=== PATIENT | female | born 1970 | race Caucasian/White ===

== ENCOUNTER 2023-01-28 09:49 | Outpatient (RCR) | payer OTHER, SELFPAY | END 2023-02-18 11:41 | disposition home or self-care (01) | LOC: PT 09:49 | PROVIDERS: PCP Nurse Practitioner Family; Visit Provider Nurse Practitioner Family | DX: M43.16 Spondylolisthesis, lumbar region (principal) | CPT/HCPCS: 97113 ==

== ENCOUNTER 2023-03-03 13:01 | Outpatient (RCR) | payer OTHER, SELFPAY | END 2023-03-04 14:07 | disposition home or self-care (01) | LOC: PT 13:01 | PROVIDERS: PCP Nurse Practitioner Family; Visit Provider Nurse Practitioner Family | DX: M17.11 Unilateral primary osteoarthritis, right knee (principal); M15.9 Polyosteoarthritis, unspecified; M43.07 Spondylolysis, lumbosacral region; G89.29 Other chronic pain | CPT/HCPCS: 97750 ==

== ENCOUNTER 2023-10-07 10:55 | Outpatient (RCR) | payer OTHER, SELFPAY | END 2024-01-06 09:15 | disposition home or self-care (01) | LOC: PT 10:55 | PROVIDERS: PCP Nurse Practitioner Family; Visit Provider Nurse Practitioner Family | DX: M15.9 Polyosteoarthritis, unspecified (principal); M43.07 Spondylolysis, lumbosacral region; M47.816 Spondylosis without myelopathy or radiculopathy, lumbar region | CPT/HCPCS: 97113; 97162 ==

== ENCOUNTER 2023-10-08 18:07 | Emergency (ER) | payer OTHER, SELFPAY ==
[2023-10-08] VITALS (25 sets, daily range): BP systolic 84–105; BP diastolic 57–75; PULSE 89–122; RESP 10–28; TEMP 36.8; O2SAT 94–99; BMI 51.2
--- OUTSIDE RECORDS SUMMARY | 2023-10-08 18:14 | XMS_ITS | CCD ---
Author Name Unknown Address [address] [place] [address] Organization [facility] Care Team Providers Care Hairpiece Stylist Name Role Phone EDIE SINGH Referring Unavailable EDIE SINGH Primary Care Unavailable Edie Singh Primary Care Provider Edie Singh Unavailable Edie Singh Unavailable Pop Blandon Unavailable Ellie Torres Unavailable NON STAFF Primary Care Provider UnavailDO Reinaldo Gutierrez Emergency Provider LUCY Torres Primary Care Provider LUCY Torres Attending Provider SOBEIDA Torres-Ruperto Ellie Primary Care Provider SOBEIDA Torres-C Ellie Attending Provider DO Edie Bolton Emergency Provider RadhasdSusana Jeong Unavailable Danya Carty Unavailable Serene Bustos Unavailable AGUSTO Ellis Attending Provider [phone] ELLIE TORRES Consulting Unavailable JUAN JOSE, ELLIE Primary Care Unavailable JUAN JOSE, ELLIE Admitting Unavailable JUAN JOSE, ELLIE Attending Unavailable JUAN JOSE, ELLIE Primary Care Unavailable JUAN JOSE, ELLIE Admitting Unavailable JUAN JOSE, ELLIE Attending Unavailable JUAN JOSE, ELLIE Consulting Unavailable JUAN JOSE, ELLIE Consulting Unavailable JUAN JOSE, ELLIE Primary Care Unavailable JUAN JOSE, ELLIE Admitting Unavailable JUAN JOSE, ELLIE Attending Unavailable Gurmeet Olmedo Unavailable [phone] SOBEIDA Torres-C Ellie Primary Care Provider SOBEIDA Torres-C Ellie Attending Provider DO Edie Bolton Emergency Provider AGUSTO Sung Attending Provider [phone] BROOKLYNN Carty Referring Provider MD Gurmeet Olmedo Attending Provider JUAN JOSE, ALYSON Kwan Attending Unavail able JUAN JOSE, ALYSON Kwan Admitting Unavail able Clive Marino Unavailable SOBEIDA Torres-C Ellie Primary Care Provider SOBEIDA Torres-Ruperto Argueta Attending Provider Kera Mccall Unavailable SOBEIDA Torres-Ruperto YeeEllie Primary Care Provider U DO Gurmeet Espino Attending Provider NON STAFF Primary Care Unavailable Reinaldo Mehta Admitting Unavailable Reinaldo Mehta Attending Unavailable Ellie Torres Attending Unavailable Ellie Torres Admitting Unavailable Juan Jose, Ellie Primary Care Unavailable Danya Carty Referring Unavailable Gurmeet Olmedo Admitting Unavaila ble Gurmeet Olmedo Attending Unavaila ble Juan Jose, Ellie Primary Care Unavailable Gurmeet Olmedo Attending Unavaila ble Juan Jose, Ellie Primary Care Unavailable Gurmeet Olmedo Admitting Unavaila ble Gurmeet Palacios Attending Unavailab le Juan Jose, Ellie Primary Care Unavailable Gurmeet Palacios Admitting Unavailab le Juan Jose, Ellie Primary Care Unavailable Ellie Torres Attending Unavailable Ellie Torres Admitting Unavailable Juan Jose, Ellie Primary Care Unavailable Ellie Torres Attending Unavailable Ellie Torres Admitting Unavailable Susana Ellis Admitting Unavailable Susana Ellis Attending Unavailable Ellie Torres Primary Care Unavailable Juan Jose, Ellie Primary Care Unavailable Edie Bolton Admitting Unavailable Edie Bolton Attending Unavailable Medications Current Medications Medication Drug Class(es) Dates Sig (Normalized) Sig (Original) acetaminophen 300 mg / codeine phosphate 30 mg oral tablet (14 sources) Opioid Agonist Start: 10-29-2022 take 1 tablet by mouth every twelve hours Acetaminophen-Cod eine 300-30 MG 1 tablet as needed Orally twice a day for 30 days Oct, Active [id number] 200 actuat albuterol 0.09 mg/actuat metered dose inhaler (20 sources) beta2-Adrenergic Agonist Start: 04-16-2023 take 2 puff(s) by inhalation every four to six hours as needed Albuterol Sulfate HFA 108 (90 Base) MCG/ACT 2 puffs as needed Inhalation every 4-6 hours for 14 days Mar, Active Start: 10-01-2022 take 2 puff(s) by in halation every four hours as needed Albuterol Sulfate HFA 108 (90 Base) MCG/ACT 2 puffs as needed Inhalation every 4 hrs Sep, Active Start: 10-01-2022 amitriptyline hydrochloride 25 mg oral tablet (17 sources) Tricyclic Antidepressant Start: 10-29-2022 take 1 tablet by mouth every twenty-four hours Amitriptyline HCl 25 MG 1 tablet at bedtime Orally Once a day for 30 days Oct, Active Start: 10-29-2022 Amitriptyline HCl 25 MG 1 tablet twice a day Orally bid for 30 days Oct, Active amoxicillin 875 mg oral tablet (5 sources) Penicillin-class Antibacterial Start: 06-25-2022 take 1 tablet by mouth every twelve hours Amoxicillin 875 MG 1 tablet Orally every 12 hrs for 7 days May, Active amoxicillin 875 mg / clavulanate 125 mg oral tablet (6 sources) Penicillin-class Antibacterial Start: 10-01-2022 take 1 tablet by mouth every twelve hours Amoxicillin-Pot Clavulanate 875-125 MG 1 tablet Orally every 12 hrs for 10 days Sep, Active azelastine hydrochloride 0.137 mg/actuat metered dose nasal spray (1 source) Histamine-1 Receptor Antagonist take 1 puff(s) nasal route twice daily Azelastine HCl 0.1 % 1 puff in each nostril Nasally Twice a day for 30 day(s) Active Calcium (1 source) Phosphate Binder, Calcium Calcium daily Active cefdinir 300 mg oral capsule (5 sources) Cephalosporin Antibacterial Start: 07-02-2022 take 1 capsule by mouth every twelve hours Cefdinir 300 MG 1 capsule Orally every 12 hrs for 7 days Jun, Active Start: 06-12-2021 take 1 capsule by [facility] every twelve hours Cefdinir 300 MG 1 capsule Orally every 12 hrs for 10 day(s) May, Active celecoxib 200 mg oral capsule (20 sources) Nonsteroidal Anti-inflammatory Drug Start: 01-19-2022 take 1 capsule by mouth every twenty-four hours CeleBREX 200 MG 1 capsule with food Orally Once a day for 30 day(s) December, Active cetirizine hydrochloride 10 mg oral tablet (20 sources) Histamine-1 Receptor Antagonist Start: 07-30-2022 take 1 tablet by mouth every twenty-four hours Cetirizine HCl 10 MG 1 tablet Orally Once a day for 30 day(s) Jul, Active doxycycline monohydrate 100 mg oral capsule (6 sources) Tetracycline-class Drug Start: 05-21-2022 take 1 capsule by mouth every twelve hours Doxycycline Monohydrate 100 MG 1 capsule Orally every 12 hrs for 10 days Apr, Active DULoxetine 60 mg delayed release oral capsule (20 sources) Serotonin and Norepinephrine Reuptake Inhibitor Start: 04-06-2022 take 1 capsule by mouth every twelve hours DULoxetine HCl 60 MG 1 capsule Orally Twice a day for 30 day(s) Mar, Active Start: 04-06-2022 take 1 capsule by [facility] every twelve hours DULoxetine HCl 40 MG 1 capsule Orally Twice a day for 30 day(s) Mar, Active Start: 04-06-2022 take 1 capsule by [facility] every twelve hours DULoxetine HCl 20 MG 1 capsule Orally Twice a day for 30 day(s) Mar, Active fluconazole 150 mg oral tablet (6 sources) Azole Antifungal Start: 09-25-2022 Fluconazole 1 50 MG 1 tablet Orally 1 tablet weekly x 3 weeks for 21 days Aug, Active fluticasone propionate 0.05 mg/actuat metered dose nasal spray (1 source) Corticosteroid take 1 spray(s) nasal route once daily Fluticasone Propionate 50 MCG/ACT 1 spray in each nostril Nasally Once a day for 30 day(s) Active gabapentin 600 mg oral tablet (20 sources) Anti-epileptic Agent Start: 04-22-2022 take 1 tablet by mouth every eight hours Gabapentin 600 MG 1 tablet Orally three times a day for 30 day(s) Mar, Active Start: 09-29-2021 take 1 capsule by [facility] every eight hours Gabapentin 300 MG 1 capsule Orally three times a day for 30 day(s) Aug, Active hydroCHLOROthiazide 25 mg / lisinopril 20 mg oral tablet (20 sources) Thiazide Diuretic, Angiotensin Converting Enzyme Inhibitor take 1 tablet by mouth every twenty-four hours Lisinopril-hydroCHLOROthiazide 20-25 MG 1 tablet Orally Once a day for 90 days Active take 1 tablet by mouth every twe nty-four hours hydrOXYzine hydrochloride 25 mg oral tablet (20 sources) Antihistamine Start: 11-07-2022 take 1 tablet by mouth twice daily as needed hydrOXYzine HCl 25 MG 1 tablet as needed Orally twice daily for 30 days Oct, Active Start: 06-25-2022 take 1 tablet by [facility] twice daily hydrOXYzine HCl 10 MG 1 Tablet Orally twice daily for 30 days May, Active Iron (1 source) take 1 tablet by mouth once daily Iron 325 (65 Fe) MG 1 tablet Orally Once a day Active levoFLOXacin 750 mg oral tablet (6 sources) Quinolone Antimicrobial Start: 10-08-19 take 750 mg by mouth once daily Levofloxacin Active 750 MG PO Daily 03 05October 08, 2022 1:00am 3 ml liraglutide 6 mg/ml pen injector (20 sources) GLP-1 Receptor Agonist Start: 09-30-19 Victoza 18 MG/3ML Week one- 0.6mg daily, Week two- 1.2mg daily, Week three thereafter- 1.8mg daily Subcutaneous Daily for 30 days Sep, Active inject 3 mg by subcu taneous injection once daily Victoza 18 MG/3ML 3 mg Subcutaneous Vera y for 30 days Active meloxicam 15 mg oral tablet (9 sources) Nonsteroidal Anti-inflammatory Drug Start: 07-20-2022 take 1 tablet by mouth every twenty-four hours Meloxicam 15 MG 1 tablet Orally Once a day for 30 day(s) Jun, Active Start: 11-13-2021 take 1 tablet by more th every twenty-four hours Meloxicam 15 MG 1 tablet Orally Once a day for 30 day(s) Oct, Not-Taking methylPREDNISolone 4 mg oral tablet (20 sources) Corticosteroid Start: 04-16-2023 methylPREDNISo lone 4 MG as directed Orally for daily dose take half with breakfast, half with dinner for 6 days Mar, Active Start: 11-03-2022 Medrol 4 MG as directed Orally as directed for 6 days Oct, Active Start: 07-20-2022 methylPREDNISo lone 4 MG as directed Orally Once a day for 6 days Jun, Active Start: 06-11-2022 methylPREDNISo lone 4 MG as directed Orally for 6 days May, Active Start: 01-15-2022 Medrol 4 MG as directed Orally December, Not-Taking Start: 08-11-2021 DEPO-Medrol Jul, 80 mg Start: 08-11-2021 Start: 08-11-2021 Depo-Medrol 40 mg Jul, 80 mg Start: 06-10-2020 Start: 06-10-2020 Depo-Medrol 80 mg May, 80 mg Start: 06-19-2019 Start: 06-19-2019 Depo-Medrol 40 mg May, 60 mg Start: 11-28-2018 Start: 11-28-2018 Depo-Medrol 80 mg Nov, 60 mg nystatin [id number] unt/ml oral suspension (1 source) Polyene Antifungal Start: 07-20-2022 take 5 mL by mouth four times daily Nystatin [id number] UNIT/ML 5 ml Mouth/Throat Four times a day for 10 day(s) Jun, Active ondansetron 8 mg oral tablet (1 source) Serotonin-3 Receptor Antagonist Start: 06-12-2021 take 1 tablet by mouth every twelve hours Ondansetron HCl 8 MG 1 tablet as needed Orally bid for 15 day(s) May, Active potassium chloride 20 meq extended release oral tablet (8 sources) Start: 09-10-2022 take 1 tablet by mouth twice daily Potassium Chloride (K-Tab) 20 mEq tablet extended release Active 20 MEQ PO Twice daily September 10, 2022 1:00am predniSONE 50 mg oral tablet (12 sources) Start: 10-08-2022 take 50 mg by mouth once daily Prednisone Active 50 MG PO Daily 3 October 08, 2022 1:00am Start: 10-01-2022 predniSONE 10 MG 1 tablet 3 times a day for 3 days then 1 tablet twice daily for 3 days Orally as directed for 6 days Sep, Active pregabalin 300 mg oral capsule (17 sources) Start: 10-29-2022 take 1 capsule by mouth every twelve hours Pregabalin 300 MG 1 capsule Orally Twice a day for 30 days Oct, Active Start: 10-29-2022 take 1 capsule by mo [facility] every twelve hours Pregabalin 150 MG 1 capsule Orally Twice a day for 30 days Oct, Active tiZANidine 4 mg oral tablet (20 sources) Central alpha-2 Adrenergic Agonist Start: 12-11-2021 take 1 tablet by mouth every twenty-four hours tiZANidine HCl 4 MG 1 tablet as needed Orally once daily for 30 days Nov, Active take 1 tablet by more twice daily as needed tiZANidine HCl 4 MG 1 tablet as needed Orally up to twice daily as needed for 30 days Active take 1 tablet by mouth every eig ht hours tiZANidine HCl 4 MG 1 tablet as needed Orally Three times a day for 10 day(s) Active traMADol hydrochloride 50 mg oral tablet (7 sources) Opioid Agonist Start: 08-27-2022 take 1 tablet by mouth every twelve hours traMADol HCl 50 MG 1 tablet as needed Orally bid for 30 day(s) Jul, Active Start: 07-30-2022 take 1 tablet by more every twelve hours traMADol HCl 50 MG 1 tablet as needed Orally bid for 30 day(s) Jul, Active triamcinolone acetonide 1 mg/ml topical cream (20 sources) Corticosteroid Start: 11-07-2022 Triamcinolone Acetonide 0.1 % 1 application to affected area Externally Twice a day for 5 days Oct, Active Start: 11-07-2022 Start: 03-03-2022 Kenalog-40 Feb, 40 mg Start: 03-03-2022 Start: 11-06-2021 Start: 11-06-2021 Kenalog -40 mg Oct, 40 mg Start: 03-11-2021 Start: 03-11-2021 KENALOG - 10 m g Feb, 40 mg Vitamin D (1 source) Vitamin D daily Active Completed/Discontinued Medications Medication Drug Class(es) Dates Sig (Normalized) Sig (Original) cyclobenzaprine hydrochloride 10 mg oral tablet (15 sources) Muscle Relaxant Start: 08-11-2021 take 1 tablet by mouth every twenty-four hours Cyclobenzaprine HCl 10 MG 1 tablet at bedtime as needed Orally Once a day for 30 day(s) Jul, Not-Taking Dexamethasone (20 sources) Corticosteroid Start: 03-26-2022 Start: 03-26-2022 DEXAMETHASONE Feb, 6 mg Start: 03-03-2022 Dexamethasone 4 MG 3 tablets daily for 3 days then 2 tablets daily for 3 days then 1 tablet daily for 3 days Orally Once a day for 9 days Feb, Active Dexamethasone 4 MG 3 tablets daily for 3 days then 2 tablets daily for 3 days then 1 tablet daily for 3 days Orally Once a day for 9 days Active diclofenac sodium 75 mg delayed release oral tablet (5 sources) Nonsteroidal Anti-inflammatory Drug take 1 tablet by mouth every twelve hours Diclofenac Sodium 75 MG 1 tablet as needed Orally Twice a day for 30 days Not-Taking Handicap placards as directed (20 sources) Start: 08-27-20 Start: 08-27-2022 Handicap placa rds as directed 1 to as directed as directed Jul, Active indomethacin 50 mg oral capsule (15 sources) Nonsteroidal Anti-inflammatory Drug Start: 08-11-2021 take 1 capsule by mouth every twelve hours Indomethacin 50 MG 1 capsule with food or milk Orally Twice a day for 30 day(s) Jul, Not-Taking Ketorolac (20 sources) Nonsteroidal Anti-inflammatory Drug, Cyclooxygenase Inhibitor Start: 03-03-2022 Start: 03-03-2022 Toradol per 15 mg Feb, 30 mg Start: 11-28-2018 Start: 11-28-2018 Toradol per 15 mg Nov, 60 mg Ketorolac Tromethamin (20 sources) Start: 11-07-2022 Start: 11-07-2022 Ketorolac Trom ethamin Oct, 60 mg Start: 11-03-2022 Start: 11-03-2022 Ketorolac Trom ethamin Oct, 30 mg Toradol 30 mg/ml (20 sources) Start: 05-21-2022 Start: 05-21-2022 Toradol 30 mg/ ml Apr, 60 mg Start: 03-26-2022 Start: 03-26-2022 Toradol 30 mg/ ml Feb, 60 mg Start: 11-06-2021 Start: 11-06-2021 Toradol 30 mg/ ml Oct, 30 mg Start: 03-11-2021 Start: 03-11-2021 Toradol 30 mg/ ml Feb, 30 mg Start: 02-17-2021 Start: 02-17-2021 Toradol 30 mg/ ml Jan, 60 mg Problems Active Problems Problem Classification Problem Date Documented Date Episodic/Chronic Administrative/social admission (2 sources) Persons encountering health services in other specified circumstances Episodic Allergic reactions (1 source) Unspecified contact dermatitis, unspecified cause Episodic Anxiety disorders (20 sources) Generalized anxiety disorder; Translations: [Generalized anxiety disorder] Chronic Coma; stupor; and brain damage (20 sources) Excessive daytime sleepiness - normal night sleep; Translations: [Somnolence] Episodic Diabetes mellitus without complication (7 sources) Other abnormal glucose; Translations: [Impaired fasting glucose] Episodic Essential hypertension (20 sources) Essential hypertension; Translations: [Essential (primary) hypertension] Onset: 04-06-2022 Resolved: 04-27-2022 Chronic Fluid and electrolyte disorders (19 sources) Hypokalemia; Translations: [Hypokalemia] Onset: 09-21-2022 09-10-2022 Episodic Genitourinary symptoms and ill-defined conditions (10 sources) Retention of urine; Translations: [Retention of urine, unspecified] 09-10-2022 Episodic Immunizations and screening for infectious disease (20 sources) Contact with and (suspected) exposure to other viral communicable diseases; Translations: [Contact with and (suspected) exposure to other viral communicable diseases Z20.828] Onset: 06-12-2021 Resolved: 06-12-2021 Episodic Mood disorders (20 sources) Recurrent major depressive episodes, mild ; Translations: [Major depressive disorder, recurrent, mild] Onset: 04-06-2022 Resolved: 04-27-2022 Chronic Mycoses (1 source) Candidal stomatitis Episodic Osteoarthritis (19 sources) Arthritis of right knee; Translations: [Unilateral primary osteoarthritis, right knee] Chronic Other circulatory disease (1 source) Other specified symptoms and signs involving the circulatory and respiratory systems Episodic Other connective tissue disease (1 source) Other symptoms and signs involving the musculoskeletal system; Translations: [Other symptoms and signs involving the musculoskeletal system] Onset: 06-18-2023 Episodic Other nervous system disorders (20 sources) Chronic pain; Translations: [Other chronic pain] Chronic Other nervous system disorders (9 sources) Other chronic pain Onset: 09-29-2021 Resolved: 04-22-2022 Chronic Other non-traumatic joint disorders (1 source) Pain in elbow; Translations: [Left elbow pain] Episodic Other non-traumatic joint disorders (1 source) Pain in right knee Episodic Other non-traumatic joint disorders (1 source) Pain in right hip Episodic Other nutritional; endocrine; and metabolic disorders (20 sources) Body mass index 40+ - severely obese; Translations: [Body mass index (BMI) 40.0-44.9, adult] Chronic Other nutritional; endocrine; and metabolic disorders (13 sources) Severe obesity; Translations: [Morbid (severe) obesity due to excess calories] Chronic Other nutritional; endocrine; and metabolic disorders (3 sources) Morbid (severe) obesity due to excess calories Chronic Other nutritional; endocrine; and metabolic disorders (2 sources) Body mass index (BMI) 40.0-44.9, adult Chronic Other nutritional; endocrine; and metabolic disorders (20 sources) Morbid obesity; Translations: [Morbid (severe) obesity due to excess calories] Chronic Other nutritional; endocrine; and metabolic disorders (20 sources) Obesity; Translations: [Obesity, unspecified] Chronic Other nutritional; endocrine; and metabolic disorders (6 sources) Obesity, unspecified Chronic Other nutritional; endocrine; and metabolic disorders (4 sources) Body mass index (BMI) 45.0-49.9, adult Chronic Other nutritional; endocrine; and metabolic disorders (3 sources) Metabolic syndrome X; Translations: [Metabolic syndrome] Chronic Other nutritional; endocrine; and metabolic disorders (1 source) Metabolic syndrome Chronic Other skin disorders (1 source) Disorder of the skin and subcutaneous tissue, unspecified Episodic Other upper respiratory infections (20 sources) Chronic pansinusitis; Translations: [Chronic pansinusitis] Chronic Other upper respiratory infections (10 sources) Acute maxillary sinusitis, unspecified; Translations: [Acute frontal sinusitis, unspecified] Onset: 06-12-2021 Resolved: 06-12-2021 Episodic Otitis media and related conditions (4 sources) Otitis media, unspecified, bilateral; Translations: [Otitis media, unspecified, left ear] Episodic Pneumonia (except that caused by tuberculosis or sexually transmitted disease) (7 sources) Community acquired pneumonia; Translations: [Pneumonia, unspecified organism] 10-08-2022 Episodic Residual codes; unclassified (20 sources) Obstructive sleep apnea syndrome; Translations: [Obstructive sleep apnea (adult) (pediatric)] Chronic Residual codes; unclassified (20 sources) Obstructive sleep apnea of adult; Translations: [Obstructive sleep apnea (adult) (pediatric)] Chronic Residual codes; unclassified (20 sources) Sleep apnea; Translations: [Sleep apnea, unspecified] Chronic Residual codes; unclassified (5 sources) Sleep apnea, unspecified; Translations: [Sleep apnea] Onset: 12-23-2022 Chronic Residual codes; unclassified (2 sources) Obstructive sleep apnea (adult) (pediatric) Chronic Residual codes; unclassified (1 source) Obstructive sleep apnea (adult)(pediatric); Translations: [Obstructive sleep apnea (adult) (pediatric)] Onset: 02-24-2023 Chronic Residual codes; unclassified (20 sources) Generalized aches and pains; Translations: [Pain, unspecified] Episodic Residual codes; unclassified (6 sources) Passive smoker; Translations: [Contact with and (suspected) exposure to environmental tobacco smoke (acute) (chronic)] 10-08-2022 Episodic Residual codes; unclassified (20 sources) Insomnia; Translations: [Insomnia, unspecified] Episodic Residual codes; unclassified (2 sources) Insomnia, unspecified Episodic Spondylosis; intervertebral disc disorders; other back problems (20 sources) Arthritis of facet joint of lumbar spine; Translations: [Spondylosis without myelopathy or radiculopathy, lumbar region] Onset: 09-29-2021 Resolved: 04-22-2022 Chronic Spondylosis; intervertebral disc disorders; other back problems (5 sources) Radiculopathy, lumbar region; Translations: [Muscle spasm of back] Onset: 08-11-2021 Resolved: 08-11-2021 Episodic Unclassified (1 source) Unclassified (12 sources) Other low back pain; Translations: [Other low back pain] Unclassified (1 source) Dietary counseling and surveillance; Translations: [Dietary counseling and surveillance] Onset: 02-02-2023 Unclassified (1 source) Pain in right hip; Translations: [Pain in right hip] Onset: 11-07-2022 Unclassified (1 source) Pain in right knee; Translations: [Pain in right knee] Onset: 11-03-2022 Unclassified (1 source) Subacute cough; Translations: [Subacute cough] Onset: 10-01-2022 Unclassified (1 source) Retention of urine, unspecified; Translations: [Retention of urine, unspecified] Onset: 09-10-2022 Past or Other Problems Problem Classification Problem Date Documented Da te Episodic/Chronic Malaise and fatigue (6 sources) Other fatigue; Translations: [OTHER FATIGUE] Onset: 06-05-2022 Episodic Nausea and vomiting (1 source) Bilious vomiting; Translations: [Bilious vomiting with nausea R11.14] Onset: 06-12-2021 Resolved: 06-12-2021 Episodic Other aftercare (1 source) Encounter for follow-up examination after completed treatment for conditions other than malignant neoplasm Onset: 04-27-2022 Resolved: 04-27-2022 Episodic Other lower respiratory disease (1 source) Shortness of breath; Translations: [Shortness of breath] Onset: 10-08-2022 Episodic Residual codes; unclassified (3 sources) Pain, unspecified Onset: 09-29-2021 Resolved: 01-28-2022 Episodic Sprains and strains (3 sources) Strain of muscle, fascia and tendon of lower back, initial encounter Onset: 11-06-2021 Resolved: 04-16-2022 Episodic Unclassified (1 source) Suspected COVID-19 virus infection Z20.822; Translations: [Suspected COVID-19 virus infection Z20.822] Onset: 06-12-2021 Resolved: 06-12-2021 Unclassified (8 sources) Other low back pain M54.59 Onset: 09-29-2021 Resolved: 01-15-2022 Unclassified (20 sources) Myofascial low back pain; Translations: [Other low back pain] Unclassified (2 sources) Pain in left lumbar region of back M54.50 Onset: 03-03-2022 Resolved: 03-03-2022 Unclassified (1 source) Subacute cough R05.2 Results Test Name Value Interpretation Reference Range Facility MR lumbar spine wo conon MR lumbar spine wo con [facility] [place] [address] [place] [address] MRI Report Signed Patient: Mariana Kelly MR#: [id number] : 1970 Acct:[id number] Age/Sex: 52 / F ADM Date: 06/18/23 Loc: MR Room: Type: [facility] Attending Dr: Gurmeet Palacios DO Copies to: Gurmeet Palacios DO Ordering Provider: Gurmeet Palacios DO Date of Service: 06/18/23 MR/MR lumbar spine wo con: BACK PAIN EXAMINATION: MRI LUMBAR SPINE WITHOUT CONTRAST CLINICAL HISTORY: Bilateral lower extremity weakness and difficulty standing or walking for long periods. COMPARISON: 01/16/[address] 09/10/2022 TECHNIQUE: Multiecho imaging was performed in the sagittal and axial planes without contrast administration. FINDINGS: There is still minor anterolisthesis of L4 on L5 and retrolisthesis of L5 on S1. There is normal signal intensity within the imaged bone marrow. No compression fractures are visualized in the field of view. There is minor degenerative endplate signal change, predominantly at the thoracolumbar junction. The conus medullaris is normal in caliber, position and signal intensity. No paraspinal soft tissue anomalies are noted. At T12-L1, there is slight loss of disc height. There is minimal annular disc bulging. There is no significant thecal sac effacement or neural foraminal stenosis. At L1-L2, L2-3 L3-4, no disc disease or stenosis is identified. At L4-5, there is minimal loss of disc height and disc desiccation. There is no significant disc bulge or herniation. There is prominent worsening facet disease with fluid in the joints. A potential tiny central synovial cyst on the left is possible. There is also thickening of ligamentum flavum. There is moderate to severe central stenosis due to the posterior element disease. There is mild right and mild to moderate left foraminal impingement. At the lumbosacral junction, there is minor disco-osteophytic bulging, greater toward the neural foramen. There is mild facet and ligamentous hypertrophy. No thecal sac effacement is present. There is moderate foraminal bilaterally. 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 LUMBOSACRAL FORAMINAL IMPINGEMENT. Impression dictated by: Arianna Urena M.D.06/18/2023 8:28 PM Dictation Location: [place] [address] Transcribed By: [facility] 06/18/232027 Dictated By: Arianna Urena MD 06/18/232010 Signed By: 06/18/232027 [facility] Coding Summary.on 12-10-2022 Coding Summary. CD:[id number] Ww+PG hlYWQ+VV8IAXWrK63ymLAixM7 pP4BHULhKRvquFMNTJLfMEdAu qtNaMJ1wxQNwFRVs IC8+DC1uUWDnPxzimHXeq9X9n GE4P90alb7dIMgslIO8GOHuQc Wdttqwo0cciNh5WNzqHyaqUbG t GUBamE27KOG9rZ33Bd10eVMxw DLxx1dnrTu7NrUmEKSnHWW0vZ irMDyuc9OvXNLrH02ieBNsa7I 6 BTAlmSnlmOReAiTbmJP9tM6vI Yessupzn9jdyrpwVrp1gd13pE Hov0H7bUC7S4LnswE8MCDrtMZ g DjzeqTYHsP5uminrv7osxhewI fXhDUKjRCz2VNb2MLWwgPamKj FpPA57XGY2YNSffiHqJ8RwHSF s cZraVqC7m0Q2Qd6US2HOKoxlT 1VNTUFSWTwvdGQ+YJ50pq28I3 OqNsukEbs9DAQtWZI4hLF8hT6 n GKXhJXyma1X4tDL3D2SqwuGtf m8kv9qdEWIgNFmnZ40zeSMwj3 D2OSCbfMR6FWIseZcsOzPsgB8 3 Oyc+YVJxzOtcq3DsEyzxq7qng 1hcmTd0ZsbwCDWariBwwWacKN X1i3QvNo1xULGkjWJ3lFO1cJ7 i RwJiOwY2SEsnB543WdIyaURzE dviK38yZ3VyaEG+BKWoEhe4MR WztQntUG7iY8AaWDJrjggsrSF m qGrfZY0wDKPsjinsKONycU9oP AOaB2c8KnOvMcK4ZFxyG8BmBA TlnteuCe32lG7fKlMyZwE0FOs u Z8HmvqC3PKHckHTgNMqcQLQ6M 23yp9X9OCTyRFVnREG6bGG0sY 1hbGlnbjogbGVmdDsgdmVydGl j JVzfYSkrP313KDZvmKumKnCxL GluZyBEYXRlOiAgMDQvMTMvMj AyMzwvdGQ+YAKrYWK3oQeqCNT n kYZqYEblOd5azIuwlIdpQG7eL WNdagznDAXheU4mVFHrhRKapP joCG0jNTNlejdom236MpObCUE 0 SSMseDIvA6SgkO6zHpZzXLBnR QZxL6NfhILeQPmjI523JQpqUz H3BQAelzArE5XtJNZqaZlzWdW 0 s7W2Wg3Fz7YkunihF0DaeSNtK zSlMvjnHPs2A6FlUyhsvGT+PC 58HDMsLO31NFa2VXR3gIslNLx i FPGaT8HdiD0jUwQrIXRjZAKzG yc+PHRhYmxlIHdpZHRoPScxMD UhVsUvrUnaUW7rKf3aJJNtOSS v tTlyrVFjDdMxx1fyPWGbQFaiV T0evJtpW5TklSL3IKApd3e7Wf 91M18nB3PuvIM+UEHdnSS7gTT 0 oR4bYsHkZmL0NCxeR075VzZfw DOwXrhwy1sfv6fqfYl8JtC0ET AgdnEkcDbaRVR3w3YoJh90X28 s IHdpZHRoPSIxNSUiIHZhbGlnb y6auS6rNq7+PLVgtLN0aGF9pQ 0eFaMrOjL8EFskB806DaKoxLQ v Dggau2jnl3qbxFl0JgCpGKWhb pWvhLxxPBL9v0MeLf38K3GxnC jui5XvKde2wr48aXHev9E7zQG 9 O1DoJUGawiavyNMgzKegXG1eM UVetoahHGKayO6bFHEmX0x8Kf FyJiF0TLvaQ4GhaeT7RUZrbBL g GRUstVNWvQ6twudhm0mouxpxG yOeBKQnCIz4IKl4QXUacImuUh WzHCK2LhM3PBA2iUSezT5lpTu n rwxvhG3rGho+GVZ5mFYuhTLKP J1xAaktgTU+UCMeZER6pWuzTX okTDNhkH4zWXArH3m2OeBlOyI 1 PBskT2GxrvQ9FIKqkUStMXJep EYZjU1vmadda9bjkqhgJuJaLD KjYBc0UPi8LJEyeQzqRmMuTML 0 SdM1IPR7uGJtkY5vrDzpndnwb G9wOyc+IvgkqWlzFYZ9UYf1T7 YhLgk8FSFqtHbbMV2gdWRtSDz u Za4bvGloiRxaGP6yCBJpdeadh 933PlNip7juLSQrfUZyHKwfOD L4M62ik2S7JVLnXEEnQFL2mWJ 4 kI8bjQvojyddtJUjnUwzljCfc FgvHXjwFIihY996ILDkfZpyNd QaIYt7N5IeGei5MMKzjNtjIS5 n vLOlYPalGh9tsYrppZfdBG7zG PDyniuvw260SrIco5xnGHBvlZ TbEBofDRK5O67be0X8HZMeLBQ w VEA8xQU0mU3ytSvwnyhmpNUxg LhlzjQadXlyFDtqFYnyK735OG BxfHjrBhQoaFk3S8JtKtr9HYW z iAfvFH3xcBGvMZimBo8cxLizm UmaRZ4rOFZgtbxsd958TyZbt8 gjYBXobTJwEKlkXZB7H25xw5V 6 URTlYNOgRLQ8sFY7qS1lmRlxd jogbGVmdDsgdmVydGljYWwtYW sbV717GUYbfMgxClQzbPfscwM g HKogQIp5A4QmDvqixEO+PC90Y RTgQL99sFNgxUGtt3uadGt9Mm AzHYChNFF5yFixBShld5QaOHF t A23pqAAsk5F4JUXmkXbneEYzR eJfqQN7wY1yBQjyayveq1ubdl suSbmmj5spgp24hP28G86uCMe p SKAqSPNzKVEqQWAlkIuely4yj G9wIi8+DTLwzIE8eJB5rE2nSQ HlTpS7ZXdoV447BmNqbUCbQhk j x7azb7lshPy0VnG9DMYbegIuf GvkDGK4p0ZjJx34K90xBEnmNK OtGIKyQBXfGUIxcTrwft0aqW7 w Ii8+JDPszAJ8oSM2zR6sKzCqA kW6PHaqT409ZyKcjCRpXrakV3 6qO7KyxIR+QZReBxh4MOMyaSm s KY8ozCTePCoyMo6pHGP1NrCtA nJwBLqkG4BgMWJldjsqirazeM I0DFUqWBVmfR87Nt9uhRdeJIO w oBDOrE3knepmd7qlzwcqTqNrV JRkKIq5PTj8HMLuwMdhXnVpYE C8LyS0XWS7uBCugH4bpLwjimt g sQ9yW1TiSXBawdgoMh72hO8tN oUxZjB7MSixHye+F0lJOPgLKD MmSHQNFiBBKZ50LW74aQGuy8B 5 tSS3F0XlSLVaxksdqsqloVQ2L BMgSIMuvL91aFZjDXchNc6lr2 Q3q036GJGkQIHquT84Li8ftTe g TWFquIJRrU1qpthxg5yqsoisT lWvOKCbGFr2LSb8UXYenWcsZp LbBMM6HlO4LYT2kFQdvF8ocMb n rfqwfH8sOip+HMBkWJCbIKo3M jwvdGQ+XUIgRGQ0iNcvMQwdDY YyiJ2yUWZbC5c9PsWaLfC2BLq u W6SkHPNeykdrLl48eQ2eKvXsK nN5YUdoJ2AlcbL7CJAtlGOzBD lkHPV1I05fu4Y4OWUwRXBgTPJ 7 mSC3fN0bzLrpqctwmBZgrHaaw vXeiUigUSblXBpuT899OXZknD eoGpLsRUdzTUSrWA08BG03iPG g q0W6hXG1J2RsCYJkwfrzrahqe UI3IUEpFYQcpW41fSDxBQivOb 2qp8M8o946AYSjNJWxaP48Ft9 u aXpdAXSogKRTsE5kpgkct9nva kqyIuQqYLSuIAh7MFp5WMXbsY fpRjBsJIJ0XoS7ZEV9fWEwrJ8 h pEdotrhloX5bKgf+RmVtYWxlP R05NO35pUIdu0X0lSR2S0SaCR QlgbcnummmcQK2KNTkTGFkkZ3 7 bUTpWEejIw3kz1R8v789ZGLjD FZmzI38Mo2sgIcrPDFdnMZDdO 1fgxsgo8maqejqEpZsMGReTWa 0 RVn0WOApfNtcZrMoZRX8SqJ1L VK2qHCdyB9ocCsborgfxW7aLs c+IEMpBKOgj5Hlw4YhCC07LH8 8 X8DfLioivOEoiMR+PHRhYmxlI HdpZHRoPScxMDAlJyBzdHlsZT 8rGq9rWSIuEQMvkUekyXHcWnQ j d8qtQFWuCWezYT4yrAluI5Een YS8LZEjc2m2Za01T86aP1EhxU A+HDMjhZB9mHY1vC5kYsRmHsI 2 YWwzQ035DmWuuSTaJupnr7eux 4ahkOq9IlEzXVPmacYzoMznUJ W4c0DrWs45H13mRSsoJPIsORH y NBSyWPRlvGftfl5grU7wSp8+P ZVpsAK5nVP0nI6bAnSaNtT8VX rsN982XgZufBWtPjvgG74tY4H v dXA+MLQxWpy6WQWpuDlfSL6wx YWcXMmlRs5vOFR9NmFpOlKuSA avC5WxQPDahpzgelhwwJZ4BHD u VHKrrM05Lj8ltTkwMk3lSAWtN JD0ODLecTNlB6TvxD0kCiMuTE MfUGKjD9IosCZjNHalU937QHh l GoL6SAJzqrFrB1QyFRKhgBbyV vM3o6Q7Iu0DsKndkYFvJV6qAq SnZTl5V3YqDre0XGUrhSniVY5 n oWHdWSckPo9gwBmvcUdgGU3sW ORrtyked658EmTse1vdKFXcsP FcZHplYEG2R31ji5E5TBBaLJZ w OAL3sLW5cQ8ukTjpqwfrxMUsr MmvdzYfmCaaSMvsDRxqM868MS FcmZnhYmFPEsa8W6JmJax8ZMC z rRbzRT3grLPpZEoiMk9qtYxoc LioYU8jMNLzfsyoq360BpMkt5 agDVJkiDGpMUusVQD0O79lb0X 6 RRRkTRFcEBK8hBF1gF2rbIrma jogbGVmdDsgdmVydGljYWwtYW qjW004KMVdqFgxJf9KCki1O6Z k Ekm3EHDapElsKM2oxDAvXWpiU c5acPbuxWxmLP4bERGlkqzxc5 92MeMxt0vuDKHqyBKpGDmrJVP 7 X44kv5G4OERsXDToVRT7yLX6g M8etPlollqbhGJzqDyefvExpI drITiaMTzaJ993FPZjgOxlDmD h eWVyOjwvdGQ+HB15qg99W7QhF xdsUyn4FVYgIXN6dRZ1zN8mZD OeZQpyz8U3hMI4S7NvihUtis0 j f4anRZKm (more content not included)... Normal [facility] CMPon 12-02-2022 Albumin [Mass/Vol] 3.8 g/dL Normal 3.3-5.0 [facility] Comment on above: Performed By: #### 2 308286, [id number], 1637726, [id number] #### [facility] [address] [place] [address] Albumin/Globulin (S) [Mass conc ratio] 1.3 Normal 1.1-2.2 [facility] Comment on above: Performed By: #### 2 851231, 92541329, 0307448, [id number] #### [facility] [address] [place] [address] ALP [Catalytic activity/Vol] 77 Int._Unit/L Normal 21-98 [facility] Comment on above: Performed By: #### 2 952262, 83832687, 8936584, 13392753 #### [facility] [address] [place] [address] ALT No additional P-5'-P [Catalytic activity/Vol] 21 Int._Unit/L Normal 6-46 [facility] Comment on above: Performed By: #### 2 580788, 01400023, 0758748, 61813616 #### [facility] [address] [place] [address] Anion gap [Moles/Vol] 11 mmol/L Normal 6-16 [facility] Comment on above: Performed By: #### 2 174904, 93883572, 9358895, 23693892 #### [facility] [address] [place] [address] AST [Catalytic activity/Vol] 17 Int._Unit/L Normal 5-43 [facility] Comment on above: Performed By: #### 2 713542, 60620736, 3530236, 03704175 #### [facility] [address] [place] [address] Bilirubin [Mass/Vol] 0.4 mg/dL Normal 0.0-1.1 [facility] Comment on above: Performed By: #### 2 629058, 49921839, 0632878, 15074827 #### [facility] [address] [place] [address] Calcium [Mass/Vol] 9.1 mg/dL Normal 8.9-11.1 [facility] Comment on above: Performed By: #### 2 784478, 37911307, 3430440, 53699611 #### [facility] [address] [place] [address] Chloride [Moles/Vol] 107 mmol/L Normal 101-111 [facility] Comment on above: Performed By: #### 2 498704, 79786792, 2572798, 49030252 #### [facility] [address] [place] [address] CO2 [Moles/Vol] 26 mmol/L Normal 21-31 [facility] Comment on above: Performed By: #### 2 805435, 36998034, 9643109, 08555951 #### [facility] [address] [place] [address] Creatinine [Mass/Vol] 0.9 mg/dL Normal 0.5-1.3 [facility] Comment on above: Performed By: #### 2 318414, 33864425, 1103527, 58885731 #### [facility] [address] [place] [address] Globulin (S) [Mass/Vol] 3.0 g/dL Normal 1.4-4.0 [facility] Comment on above: Performed By: #### 2 008389, 48750065, 5887277, 43922061 #### [facility] [address] [place] [address] Glucose [Mass/Vol] 110 mg/dL Normal 55-199 [facility] Comment on above: Result Comment: If t his glucose result represents a fasting glucose, interpretation should refer to the following reference range: 55-99 mg/dL Performed By: #### 2 051689, 82369365, 3449765, 04694846 #### [facility] [address] [place] [address] Potassium [Moles/Vol] 3.8 mmol/L Normal 3.5-5.3 [facility] Comment on above: Performed By: #### 2 053349, 53741042, 4911236, 45265297 #### [facility] [address] [place] [address] Protein [Mass/Vol] 6.8 g/dL Normal 6.0-7.8 [facility] Comment on above: Performed By: #### 2 181443, 39061957, 7014564, 82567105 #### [facility] [address] [place] [address] Sodium [Moles/Vol] 140 mmol/L Normal 135-145 [facility] Comment on above: Performed By: #### 2 290781, 90255611, 5062350, 80123338 #### [facility] [address] [place] [address] Urea nitrogen [Mass/Vol] 12 mg/dL Normal 5-21 [facility] Comment on above: Performed By: #### 2 746512, 18894030, 5654461, 39217257 #### [facility] [address] [place] [address] Urea nitrogen/Creatinine [Mass ratio] 13 No Units Normal 10-20 [facility] Comment on above: Performed By: #### 2 195924, 00608440, 1482009, 40752378 #### [facility] [address] [place] [address] Lipid Panelon 12-02-2022 Cholesterol [Mass/Vol] 177 mg/dL Normal 120-200 [facility] Comment on above: Performed By: #### 2 951786, 37828560, 9032536, 20990530 #### [facility] [address] [place] [address] Cholesterol in HDL [Mass/Vol] 43 mg/dL Invalid Interpretation Code [facility] Comment on above: Result Comment: HDL > or equal to 60 mg/dL: Low cardiovascular risk HDL < 40 mg/dL : High cardiovascular risk Performed By: #### 2 751115, 57934275, 8478258, 73663180 #### [facility] [address] [place] [address] Cholesterol in LDL [Mass/Vol] 123 mg/dL Normal <=129 [facility] Comment on above: Performed By: #### 2 624351, 24174662, 3858451, 07154290 #### [facility] [address] [place] [address] Cholesterol in VLDL [Mass/Vol] 32 mg/dL Normal 7-40 [facility] Comment on above: Performed By: #### 2 318094, 62794592, 5237944, 65502800 #### [facility] [address] [place] [address] Triglyceride [Mass/Vol] 158 mg/dL High <=149 [facility] Comment on above: Performed By: #### 2 179684, 38371337, 8455297, 76039580 #### [facility] [address] [place] [address] Physician Orderon 12-02-2022 Physician Order [id number]:12 7 Normal [facility] T4 & TSHon 12-02-2022 T4 [Mass/Vol] 7.5 microgram/dL Normal 4.6-9.1 [facility] Comment on above: Performed By: #### 2 421632, 74582276, 6977278, 16583151 #### [facility] [address] [place] [id number] TSH Qn 0.59 m[IU]/L Normal 0.34-5.60 [facility] Comment on above: Performed By: #### 2 285496, 01024003, 2181232, 85962429 #### [facility] [address] [place] [address] eGFRon 12-02-2022 GFR/1.73 sq M.predicted among blacks MDRD (S/P/Bld) [Vol rate/Area] mL/min/{1.73_m2} Normal >=59 [facility] Comment on above: Order Comment: Order added by Discern Expert. Result Comment: eGFR is race adjusted. AA=. Performed By: #### 2 219446, 12113296, 1273548, 52460457 #### [facility] [address] [place] [address] GFR/1.73 sq M.predicted among non-blacks MDRD (S/P/Bld) [Vol rate/Area] mL/min/{1.73_m2} Normal >=59 [facility] Comment on above: Order Comment: Order added by Discern Expert. Result Comment: Student Services Representative carlos kidney disease could be indicated at eGFR's of less than 60 mL/min/1.73m2. Kidney failure is indicated at less than 15 mL/min/1.73m2. Performed By: #### 2 625691, 88954041, 3460677, 76331789 #### [facility] [address] [place] [address] XR hip RT min 2V(w/wo pelvis )*on 11-07-2022 XR hip RT min 2V(w/wo pelvis)* [facility] [employer] Other XR hip RT min 2V(w/wo pelvis)* [facility] [place] [employer] Other XR hip RT min 2V(w/wo pelvis)* [address] [place] [address] [employer] Other XR hip RT min 2V(w/wo pelvis)* [place] [address] [employer] Other XR hip RT min 2V(w/wo pelvis)* XRay Report [employer] Other XR hip RT min 2V(w/wo pelvis)* Signed [employer] Other XR hip RT min 2V(w/wo pelvis)* Patient: Mariana Kelly MR#: [id number] [employer] Other XR hip RT min 2V(w/wo pelvis)* 3699 [employer] Other XR hip RT min 2V(w/wo pelvis)* : 1970 Acct:[id number] [employer] Other XR hip RT min 2V(w/wo pelvis)* Age/Sex: 51 / F ADM Date: 11/07/22 [employer] Other XR hip RT min 2V(w/wo pelvis)* Loc: XDUCLY Room: Type: REG CLI [employer] Other XR hip RT min 2V(w/wo pelvis)* Attending Dr: Ellie Torres [facility] [employer] Other XR hip RT min 2V(w/wo pelvis)* Copies to: ELLIE TORRES [facility] [employer] Other XR hip RT min 2V(w/wo pelvis)* Ordering Provider: ELLIE TORRES [facility] [employer] Other XR hip RT min 2V(w/wo pelvis)* Date of Service: 11/07/22 [employer] Other XR hip RT min 2V(w/wo pelvis)* XR/XR hip RT min 2V(w/wo pelvis)*: Right hip pain [employer] Other XR hip RT min 2V(w/wo pelvis)* Single view pelvis and 2 views of the right hip plain film [employer] Other XR hip RT min 2V(w/wo pelvis)* COMPARISON:None [employer] Other XR hip RT min 2V(w/wo pelvis)* HISTORY:Right hip pain for one year. [employer] Other XR hip RT min 2V(w/wo pelvis)* ACUTE FINDINGS:None [employer] Other XR hip RT min 2V(w/wo pelvis)* DEGENERATIVE CHANGE:Unremarkable [employer] Other XR hip RT min 2V(w/wo pelvis)* SOFT TISSUE FINDINGS:Unremarkable [employer] Other XR hip RT min 2V(w/wo pelvis)* JOINT EFFUSION:None [employer] Other XR hip RT min 2V(w/wo pelvis)* POSTOP CHANGES:None [employer] Other XR hip RT min 2V(w/wo pelvis)* BONY MINERALIZATION:Adequate [employer] Other XR hip RT min 2V(w/wo pelvis)* XR/XR hip RT min 2V(w/wo pelvis)* [employer] Other XR hip RT min 2V(w/wo pelvis)* IMPRESSION:Unremarkable exam [employer] Other XR hip RT min 2V(w/wo pelvis)* Impression dictated by: Juan Adair M.D.11/07/2022 11:54 AM [employer] Other XR hip RT min 2V(w/wo pelvis)* Dictation Location: [place] [address] [employer] Other XR hip RT min 2V(w/wo pelvis)* Transcribed By: PWS 11/07/22 [facility] [employer] Other XR hip RT min 2V(w/wo pelvis)* Dictated By: Juan Adair DO 11/07/22 [facility] [employer] Other XR hip RT min 2V(w/wo pelvis)* Signed By: [employer] Other XR hip RT min 2V(w/wo pelvis)* 11/07/22 [facility] [employer] Other XR hip RT min 2V(w/wo pelvis)* [facility] [place] [address] [place] [address] XRay Report Signed Patient: Mariana Kelly MR#: [id number] : 1970 Acct:[id number] Age/Sex: 51 / F ADM Date: 11/07/22 Loc: XDUCLY Room: Type: [facility] Attending Dr: Ellie AYALA Copies to: ELLIE TORRES Ordering Provider: ELLIE TORRES Date of Service: 11/07/22 XR/XR hip RT min 2V(w/wo pelvis)*: Right hip pain Single view pelvis and 2 views of the right hip plain film COMPARISON:None HISTORY:Right hip pain for one year. ACUTE FINDINGS:None DEGENERATIVE CHANGE:Unremarkable SOFT TISSUE FINDINGS:Unremarkable JOINT EFFUSION:None POSTOP CHANGES:None BONY MINERALIZATION:Adequate XR/XR hip RT min 2V(w/wo pelvis)* IMPRESSION:Unremarkable exam Impression dictated by: Juan Adair M.D.11/07/2022 11:54 AM Dictation Location: [facility] Transcribed By: [facility] 11/07/22 1154 Dictated By: Juan Adair DO 11/07/221152 Signed By: 11/07/22 115 Normal [facility] XR knee RT 4V*on 11-03-2022 XR knee RT 4V* [facility] [place] [address] [place] [address] XRay Report Signed Patient: Mariana Kelly MR#: [id number] : 1970 Acct:[id number] Age/Sex: 51 / F ADM Date: 11/03/22 Loc: XDUCLY Room: Type: [facility] Attending Dr: Susana LIZ Copies to: AGUSTO Aviles Ordering Provider: AGUSTO Aviles Date of Service: 11/03/22 XR/XR knee RT 4V*: Acute pain of right knee RIGHT KNEE - 4 views CLINICAL HISTORY: Right knee pain for the past 2 weeks. No recent injury. COMPARISON: None AP, lateral and both oblique views were obtained. There is no evidence of fracture or dislocation. No disproportionate joint space narrowing is present. There is minimal marginal spurring. Fluid is present at the suprapatellar bursa. XR/XR knee RT 4V* IMPRESSION: MINOR DEGENERATIVE CHANGE. JOINT EFFUSION. NO ACUTE BONY FINDINGS. Impression dictated by: Arianna Urena M.D.11/03/2022 2:56 PM Dictation Location: [facility] Transcribed By: SUKHDEV 11/03/22 1456 Dictated By: Arianna Urena MD 11/03/22 1454 Signed By: 11/03/22 1456 Normal [facility] XR knee RT 4V* [facility] [employer] Other XR knee RT 4V* [facility] [employer] Other XR knee RT 4V* [address] [facility] [employer] Other XR knee RT 4V* [place] [address] No rt [employer] Other XR knee RT 4V* XRay Report [employer] Other XR knee RT 4V* Signed [employer] Other XR knee RT 4V* Patient: Genevieve Kelly MR#: [id number] [place] [employer] Other XR knee RT 4V* [address] [employer] Other XR knee RT 4V* : 1970 Acct:[id number] [employer] Other XR knee RT 4V* Age/Sex: 51 / F ADM Date: 11/03/22 [employer] Other XR knee RT 4V* Loc: XDUC Room: pe: [facility] [employer] Other XR knee RT 4V* Attending Dr: Susana LIZ [employer] Other XR knee RT 4V* Copies to: AGUSTO Aviles [employer] Other XR knee RT 4V* Ordering Provider: AGUSTO Hernández [employer] Other XR knee RT 4V* Date of Service: 11/03/22 [employer] Other XR knee RT 4V* XR/XR knee RT 4V*: Acute pain of right knee [employer] Other XR knee RT 4V* RIGHT KNEE - 4 views [employer] Other XR knee RT 4V* CLINICAL HISTORY: Ri ght knee pain for the past 2 weeks. No recent injury. [employer] Other XR knee RT 4V* COMPARISON: None [facility] Other XR knee RT 4V* AP, lateral and both oblique views were obtained. There is no evidence of fracture or dislocation. [employer] Other XR knee RT 4V* No disproportionate joint space narrowing is present. There is minimal marginal spurring. Fluid [employer] Other XR knee RT 4V* is present at the suprapatellar bursa. [employer] Other XR knee RT 4V* X R/XR knee RT 4V* [employer] Other XR knee RT 4V* IMPRESSION: [facility] [employer] Other XR knee RT 4V* MINOR DEGENERATIVE CHANGE. [employer] Other XR knee RT 4V* JOINT EFFUSION. [employer] Other XR knee RT 4V* NO ACUTE BONY FINDINGS. [employer] Other XR knee RT 4V* Impression dictated by: Arianna Urena M.D.11/03/2022 2:56 PM [employer] Other XR knee RT 4V* Dictation Location: [facility]-- [employer] Other XR knee RT 4V* Transcribed By: SUKHDEV 11/03/22 [facility] [employer] Other XR knee RT 4V* Dictated By: Arianna Urena MD 11/03/22 [facility]6 [employer] Other XR knee RT 4V* Signed By: [employer] Other XR knee RT 4V* 11/03/22 [address] [place] [employer] Other Albumin [Mass/volume] in Ser um or PlasmaOrdered By: PROVIDER TEMP on 10-08-2022 Albumin [Mass/Vol] 3.5 g/dL 3.2-5.5 [facility] B-Type Natriuretic Peptideon 10-08-2022 Natriuretic peptide B (Bld) [Mass/Vol] 15.0 pg/mL Normal 5-100 [facility] Comment on above: Result Comment: PERF ORMED BY: [place] [address] PATHOLOGIST SIZE MIXER JAZZY HIGGINS M.D. Performed By: #### C BC, CK, CKMB, HS TROP, BNP, CMP #### [facility] [address] [place] [address] [place] Basophils Auto (Bld) [#/Vol] Ordered By: PROVIDER TEMP on 10-08-2022 Basophils (Bld) [#/Vol] 0.1 10*3/uL 0.0-0.2 [facility] Basophils/100 WBC Auto (Bld) Ordered By: PROVIDER TEMP on 10-08-2022 Basophils/100 WBC (Bld) 0.6 % . [facility] Complete Blood Count Auto Di ffon 10-08-2022 Basophils (Bld) [#/Vol] 0.1 10*3/uL Normal 0.0-0.2 [facility] Comment on above: Result Comment: PERF ORMED BY: [facility] [address] [place] [address] PATHOLOGIST [employer] M[employer]ER JAZZY HIGGINS M.D. Performed By: #### C BC, CK, CKMB, HS TROP, BNP, CMP #### [facility] [address] Basophils/100 WBC (Bld) 0.6 % Normal . [facility] Comment on above: Performed By: #### C BC, CK, CKMB, HS TROP, BNP, CMP #### [address] Eosinophils (Bld) [#/Vol] 0.2 10*3/uL Normal 0.0-0.45 [facility] Comment on above: Performed By: #### C BC, CK, CKMB, HS TROP, BNP, CMP #### [address] Eosinophils/100 WBC (Bld) 1.0 % Normal . [facility] Comment on above: Performed By: #### C BC, CK, CKMB, HS TROP, BNP, CMP #### [address] Erythrocyte distribution width (RBC) [Ratio] 13.9 % Normal 11.9-15.3 [facility] Comment on above: Performed By: #### C BC, CK, CKMB, HS TROP, BNP, CMP #### [address] Hematocrit (Bld) [Volume fraction] 45.1 % Normal 34.0-46.4 [facility] Comment on above: Performed By: #### C BC, CK, CKMB, HS TROP, BNP, CMP #### [address] Hemoglobin (Bld) [Mass/Vol] 14.9 g/dL Normal 11.8-15.4 [facility] Comment on above: Performed By: #### C BC, CK, CKMB, HS TROP, BNP, CMP #### [address] Lymphocytes (Bld) [#/Vol] 4.6 10*3/uL Normal 1.00-4.8 [facility] Comment on above: Performed By: #### C BC, CK, CKMB, HS TROP, BNP, CMP #### [address] Lymphocytes/100 WBC (Bld) 29.9 % Normal . [facility] Comment on above: Performed By: #### C BC, CK, CKMB, HS TROP, BNP, CMP #### [address] MCH (RBC) [Entitic mass] 30.8 pg Normal 24.7-34.3 [facility] Comment on above: Performed By: #### C BC, CK, CKMB, HS TROP, BNP, CMP #### [address] MCV (RBC) [Entitic vol] 93.5 fL Normal 80-100 [facility] Comment on above: Performed By: #### C BC, CK, CKMB, HS TROP, BNP, CMP #### [address] Mean Corpuscular HGB Conc 33.0 g/dL Normal 32.0-35.0 [facility] Comment on above: Performed By: #### C BC, CK, CKMB, HS TROP, BNP, CMP #### [address] Monocytes (Bld) [#/Vol] 1.1 10*3/uL High 0.0-0.8 [facility] Comment on above: Performed By: #### C BC, CK, CKMB, HS TROP, BNP, CMP #### [address] Monocytes/100 WBC (Bld) 15.04 % Normal 0.00-20.00 [facility] Comment on above: Performed By: #### C BC, CK, CKMB, HS TROP, BNP, CMP #### [address] Monocytes/100 WBC (Bld) 7.1 % Normal . [facility] Comment on above: Performed By: #### C BC, CK, CKMB, HS TROP, BNP, CMP #### [address] Neutrophils (Bld) [#/Vol] 9.5 10*3/uL High 1.8-7.7 [facility] Comment on above: Performed By: #### C BC, CK, CKMB, HS TROP, BNP, CMP #### [address] Neutrophils/100 WBC (Bld) 61.4 % Normal . [facility] Comment on above: Performed By: #### C BC, CK, CKMB, HS TROP, BNP, CMP #### [facility] [address] NRBC% 0.1 /100{WBC} Normal 0-0.5 [facility] Comment on above: Performed By: #### C BC, CK, CKMB, HS TROP, BNP, CMP #### [address] Platelet mean volume (Bld) [Entitic vol] 7.1 fL Normal 6.3-10.7 [facility] Comment on above: Performed By: #### C BC, CK, CKMB, HS TROP, BNP, CMP #### [address] Platelets (Bld) [#/Vol] 357 10*3/uL Normal 150-450 [facility] Comment on above: Performed By: #### C BC, CK, CKMB, HS TROP, BNP, CMP #### [address] RBC (Bld) [#/Vol] 4.83 10*6/uL Normal 3.60-5.00 [facility] Comment on above: Performed By: #### C BC, CK, CKMB, HS TROP, BNP, CMP #### [address] WBC (Bld) [#/Vol] 15.5 10*3/uL High 3.8-11.6 [facility] Comment on above: Performed By: #### C BC, CK, CKMB, HS TROP, BNP, CMP #### [address] Comprehensive Metabolic Pane dread 10-08-2022 Albumin [Mass/Vol] 3.5 g/dL Normal 3.2-5.5 [facility] Comment on above: Performed By: #### C BC, CK, CKMB, HS TROP, BNP, CMP #### [address] Albumin/Globulin [Mass ratio] 1.1 {ratio} Normal [facility] Comment on above: Performed By: #### C BC, CK, CKMB, HS TROP, BNP, CMP #### [address] ALP [Catalytic activity/Vol] 76 U/L Normal 32-92 [facility] Comment on above: Performed By: #### C BC, CK, CKMB, HS TROP, BNP, CMP #### [address] ALT [Catalytic activity/Vol] 22 U/L Normal 10-60 [facility] Comment on above: Performed By: #### C BC, CK, CKMB, HS TROP, BNP, CMP #### [address] Anion gap [Moles/Vol] 10.6 mmol/L Normal 6.0-15.0 [facility] Comment on above: Performed By: #### C BC, CK, CKMB, HS TROP, BNP, CMP #### [address] AST [Catalytic activity/Vol] 14 U/L Normal 10-42 [facility] Comment on above: Performed By: #### C BC, CK, CKMB, HS TROP, BNP, CMP #### [address] Bilirubin [Mass/Vol] 0.5 mg/dL Normal 0.3-1.2 [facility] Comment on above: Performed By: #### C BC, CK, CKMB, HS TROP, BNP, CMP #### [address] Calcium [Mass/Vol] 8.5 mg/dL Normal 8.2-10.2 [facility] Comment on above: Performed By: #### C BC, CK, CKMB, HS TROP, BNP, CMP #### [address] Chloride [Moles/Vol] 101 mmol/L Normal 95-114 [facility] Comment on above: Performed By: #### C BC, CK, CKMB, HS TROP, BNP, CMP #### [address] CO2 [Moles/Vol] 26.8 mmol/L Normal 22.0-30.0 [facility] Comment on above: Performed By: #### C BC, CK, CKMB, HS TROP, BNP, CMP #### [address] Creatinine [Mass/Vol] 0.89 mg/dL Normal 0.44-1.03 [facility] Comment on above: Performed By: #### C BC, CK, CKMB, HS TROP, BNP, CMP #### [address] Creatinine Clr Calc Pharmacy 91.28 [facility] Comment on above: Result Comment: PERF ORMED BY: [place] [address] PATHOLOGIST SIZE MIXER JAZZY HIGGINS M.D. Performed By: #### C BC, CK, CKMB, HS TROP, BNP, CMP #### [address] Estimated GFR ( Dorcas > 60 [facility] Comment on above: Result Comment: GFR estimated reference range: According to KDOQI guidelines, <60 ml/min/1.73m2 is sufficient to diagnose a patient with chronic kidney disease. Performed By: #### C BC, CK, CKMB, HS TROP, BNP, CMP #### [address] Estimated GFR (Non- Am > 60 [facility] Comment on above: Performed By: #### C BC, CK, CKMB, HS TROP, BNP, CMP #### [address] [address] [place] Globulin (S) [Mass/Vol] 3.1 g/dL Normal [facility] Comment on above: Performed By: #### C BC, CK, CKMB, HS TROP, BNP, CMP #### [facility] [address] Glucose [Mass/Vol] 112 mg/dL High 70-100 [facility] Comment on above: Result Comment: [place] Glucose Reference Range is dependent on time and content of last meal. Glucose of more than 200 mg/dL in a nonstressed, ambulatory subject supports the diagnosis of Diabetes Mellitus. ADA recommended reference range Performed By: #### C BC, CK, CKMB, HS TROP, BNP, CMP #### [address] Potassium [Moles/Vol] 3.4 mmol/L Low 3.5-5.1 [facility] Comment on above: Performed By: #### C BC, CK, CKMB, HS TROP, BNP, CMP #### [address] Protein [Mass/Vol] 6.6 g/dL Normal 6.1-7.9 [facility] Comment on above: Performed By: #### C BC, CK, CKMB, HS TROP, BNP, CMP #### [address] Sodium [Moles/Vol] 135 mmol/L Low 136-146 [facility] Comment on above: Performed By: #### C BC, CK, CKMB, HS TROP, BNP, CMP #### [place] [address] [place] Urea nitrogen [Mass/Vol] 13 mg/dL Normal 9-23 [facility] Comment on above: Performed By: #### C BC, CK, CKMB, HS TROP, BNP, CMP #### [address] Creatine Kinaseon 10-08-2022 CK [Catalytic activity/Vol] 65 U/L Normal 22-269 [facility] Comment on above: Performed By: #### C BC, CK, CKMB, HS TROP, BNP, CMP #### [facility] [address] [place] [address] [place] Creatine kinase [Enzymatic a ctivity/volume] in Serum or PlasmaOrdered By: PROVIDER TEMP on 10-08-2022 CK [Catalytic activity/Vol] 65 U/L 22-269 [facility] Creatinine Kinase MBon 10-08 CK.MB [Mass/Vol] 1.2 ng/mL Normal 0.6-6.3 [facility] Comment on above: Performed By: #### C BC, CK, CKMB, HS TROP, BNP, CMP #### [facility] [address] CKMB Relative Index 1.8 % Normal 0.00-2.50 [facility] Comment on above: Performed By: #### C BC, CK, CKMB, HS TROP, BNP, CMP #### [facility] [address] Creatinine and Glomerular fi ltration rate.predicted panel (S/P/Bld)Ordered By: PROVIDER TEMP on 10-08-2022 Creatinine [Mass/Vol] 0.89 mg/dL 0.44-1.03 [facility] Eosinophils Auto (Bld) [#/Vo l]Ordered By: PROVIDER TEMP on 10-08-2022 Eosinophils (Bld) [#/Vol] 0.2 10*3/uL 0.0-0.45 [facility] Eosinophils/100 WBC Auto (Bl d)Ordered By: PROVIDER TEMP on 10-08-2022 Eosinophils/100 WBC (Bld) 1.0 % . [facility] Erythrocyte distribution wid th Auto (RBC) [Ratio]Ordered By: PROVIDER TEMP on 10-08-2022 Erythrocyte distribution width (RBC) [Ratio] 13.9 % 11.9-15.3 [facility] Estimated glomerular filtrat ion rate (GFR) non- AmericanOrdered By: PROVIDER TEMP on 10-08-2022 GFR/1.73 sq M.predicted among non-blacks MDRD (S/P/Bld) [Vol rate/Area] > 60 mL/Min [facility] Globulin Calc (S) [Mass/Vol] Ordered By: PROVIDER TEMP on 10-08-2022 Globulin (S) [Mass/Vol] 3.1 g/dL [facility] Hematocrit Auto (Bld) [Volum e fraction]Ordered By: PROVIDER TEMP on 10-08-2022 Hematocrit (Bld) [Volume fraction] 45.1 % 34.0-46.4 [facility] Hemoglobin [Mass/volume] in BloodOrdered By: PROVIDER TEMP on 10-08-2022 Hemoglobin (Bld) [Mass/Vol] 14.9 g/dL 11.8-15.4 [facility] - Chemistry and C hemistry - challengeOrdered By: Edie Bolton on 10-08-2022 Natriuretic peptide B (Bld) [Mass/Vol] 15.0 pg/mL 5-100 [facility] Leukocytes [#/volume] correc aleksey for nucleated erythrocytes in Blood by Automated counOrdered By: PROVIDER TEMP on 10-08-2022 WBC corrected for nucl RBC Auto (Bld) [#/Vol] 15.5 10*3/uL 3.8-11.6 [facility] Lymphocytes Auto (Bld) [#/Vo l]Ordered By: PROVIDER TEMP on 10-08-2022 Lymphocytes (Bld) [#/Vol] 4.6 10*3/uL 1.00-4.8 [facility] Lymphocytes/100 WBC Auto (Bl d)Ordered By: PROVIDER TEMP on 10-08-2022 Lymphocytes/100 WBC (Bld) 29.9 % . [facility] MCH Auto (RBC) [Entitic mass ]Ordered By: PROVIDER TEMP on 10-08-2022 MCH (RBC) [Entitic mass] 30.8 pg 24.7-34.3 [facility] MCHC Auto (RBC) [Mass/Vol]Or dered By: PROVIDER TEMP on 10-08-2022 MCHC (RBC) [Mass/Vol] 33.0 g/dL 32.0-35.0 [facility] MCV Auto (RBC) [Entitic vol] Ordered By: PROVIDER TEMP on 10-08-2022 MCV (RBC) [Entitic vol] 93.5 fL 80-100 [facility] Monocyte distribution width [Entitic volume] in Blood by AutomatedOrdered By: PROVIDER TEMP on 10-08-2022 Monocyte distribution width Auto (Bld) [Entitic vol] 15.04 % 0.00-20.00 [facility] Monocytes Auto (Bld) [#/Vol] Ordered By: PROVIDER TEMP on 10-08-2022 Monocytes (Bld) [#/Vol] 1.1 10*3/uL 0.0-0.8 [facility] Monocytes/100 WBC Auto (Bld) Ordered By: PROVIDER TEMP on 10-08-2022 Monocytes/100 WBC (Bld) 7.1 % . [facility] Neutrophils Auto (Bld) [#/Vo l]Ordered By: PROVIDER TEMP on 10-08-2022 Neutrophils (Bld) [#/Vol] 9.5 10*3/uL 1.8-7.7 [facility] Neutrophils/100 WBC Auto (Bl d)Ordered By: PROVIDER TEMP on 10-08-2022 Neutrophils/100 WBC (Bld) 61.4 % . [facility] No Panel InformationOrdered By: PROVIDER TEMP on 10-08-2022 Estimated GFR () > 60 mL/Min [facility] Comment on above: GFR estimated refere nce range: According to KDOQI guidelines, <60 ml/min/1.73m2 is sufficient to diagnose a patient with chronic kidney disease. Pharmacy Creatinine Clearance (Chem 91.28 [facility] Nucleated erythrocytes [Pres ence] in Blood by Automated countOrdered By: PROVIDER TEMP on 10-08-2022 Nucleated RBC Auto Ql (Bld) 0.1 /100{WBC} 0-0.5 [facility] Platelet mean volume Auto (B ld) [Entitic vol]Ordered By: PROVIDER TEMP on 10-08-2022 Platelet mean volume (Bld) [Entitic vol] 7.1 fL 6.3-10.7 [facility] Platelets Auto (Bld) [#/Vol] Ordered By: PROVIDER TEMP on 10-08-2022 Platelets (Bld) [#/Vol] 357 10*3/uL 150-450 [facility] Protein [Mass/volume] in Ser um or PlasmaOrdered By: PROVIDER TEMP on 10-08-2022 Protein [Mass/Vol] 6.6 g/dL 6.1-7.9 [facility] RBC Auto (Bld) [#/Vol]Ordere d By: PROVIDER TEMP on 10-08-2022 RBC (Bld) [#/Vol] 4.83 10*6/uL 3.60-5.00 [facility] Serum or plasma alanine blanco otransferase measurement without P-5'-P (enzymatic activiOrdered By: PROVIDER TEMP on 10-08-2022 ALT No additional P-5'-P [Catalytic activity/Vol] 22 U/L 10-60 [facility] Serum or plasma albumin/glob ulin mass ratioOrdered By: PROVIDER TEMP on 10-08-2022 Albumin/Globulin [Mass ratio] 1.1 {ratio} [facility] Serum or plasma alkaline shyla sphatase measurement (enzymatic activity/volume)Ordered By: PROVIDER TEMP on 10-08-2022 ALP [Catalytic activity/Vol] 76 U/L 32-92 [facility] Serum or plasma anion gap de terminationOrdered By: PROVIDER TEMP on 10-08-2022 Anion gap [Moles/Vol] 10.6 mmol/L 6.0-15.0 [facility] Serum or plasma aspartate am inotransferase measurement (enzymatic activity/volume)Ordered By: PROVIDER TEMP on 10-08-2022 AST [Catalytic activity/Vol] 14 U/L 10-42 [facility] Serum or plasma calcium rocío urement (mass/volume)Ordered By: PROVIDER TEMP on 10-08-2022 Calcium [Mass/Vol] 8.5 mg/dL 8.2-10.2 [facility] Serum or plasma chloride martin surement (moles/volume)Ordered By: PROVIDER TEMP on 10-08-2022 Chloride [Moles/Vol] 101 mmol/L 95-114 [facility] Serum or plasma creatine kin ase MB (CKMB)/total creatine kinase (CK) ratio by calculaOrdered By: PROVIDER TEMP on 10-08-2022 CK.MB Calc [Catalytic fraction] 1.8 % 0.00-2.50 [facility] Serum or plasma creatine kin ase MB measurement (mass/volume)Ordered By: PROVIDER TEMP on 10-08-2022 CK.MB [Mass/Vol] 1.2 ng/mL 0.6-6.3 [facility] Serum or plasma glucose rocío urement (mass/volume)Ordered By: PROVIDER TEMP on 10-08-2022 Glucose [Mass/Vol] 112 mg/dL 70-100 [facility] Comment on above: ADA recommended refe rence rangeRandom Glucose Reference Range is dependent on time and content of last meal. Glucose of more than 200 mg/dL in a nonstressed, ambulatory subject supports the diagnosis of Diabetes Mellitus. Serum or plasma potassium me asurement (moles/volume)Ordered By: PROVIDER TEMP on 10-08-2022 Potassium [Moles/Vol] 3.4 mmol/L 3.5-5.1 [facility] Serum or plasma sodium measu rement (moles/volume)Ordered By: PROVIDER TEMP on 10-08-2022 Sodium [Moles/Vol] 135 mmol/L 136-146 [facility] Serum or plasma total biliru bin measurement (mass/volume)Ordered By: PROVIDER TEMP on 10-08-2022 Bilirubin [Mass/Vol] 0.5 mg/dL 0.3-1.2 [facility] Serum or plasma total carbon dioxide measurement (moles/volume)Ordered By: PROVIDER TEMP on 10-08-2022 CO2 [Moles/Vol] 26.8 mmol/L 22.0-30.0 [facility] Serum or plasma urea nitroge n measurement (mass/volume)Ordered By: PROVIDER TEMP on 10-08-2022 Urea nitrogen [Mass/Vol] 13 mg/dL 9-23 [facility] Troponin I High Sensitivityo n 10-08-2022 Troponin I High Sensitivity 3 pg/mL Normal 0-15 [facility] Comment on above: Result Comment: PERF ORMED BY: [facility] [address] [place] [address] PATHOLOGIST SIZE MIXER JAZZY HIGGINS M.D. Performed By: #### C BC, CK, CKMB, HS TROP, BNP, CMP #### [place] [id number] [facility] Troponin I.cardiac [Mass/vol ume] in Serum or Plasma by High sensitivity methodOrdered By: PROVIDER TEMP on 10-08-2022 Troponin I.cardiac High sensitivity method [Mass/Vol] 3 pg/mL 0-15 [facility] WBC Auto (Bld) [#/Vol]Ordere d By: PROVIDER TEMP on 10-08-2022 WBC (Bld) [#/Vol] 15.5 10*3/uL 3.8-11.6 [facility] XR chest 2V*on 10-08-2022 XR chest 2V* [facility] [place] [address] XRay Report Signed Patient: Mariana Kelly MR#: [id number] : 1970 Acct:[id number] Age/Sex: 51 / F ADM Date: 10/08/22 Loc: ER Room: Type: [facility] ER Attending Dr: Copies to: Edie Bolton DO Ordering Provider: Edie Bolton DO Date of Service: 10/08/22 XR/XR chest 2V*: Shortness of Breath/Dyspnea Plain film chest2 view HISTORY:Productive cough for one month COMPARISON:10/01/22 FINDINGS: Cardiac, mediastinal and hilar silhouettes are stable. No acute lung process, pleural effusion or pneumothorax identified. Bony structures are intact. LEFT basilar linear atelectasis/scarring identified. XR/XR chest 2V* IMPRESSION: No acute process. Impression dictated by: Juan Adair M.D.10/08/2022 8:09 PM Dictation Location: [place] [address] Transcribed By: [facility] 10/08/222008 Dictated By: Juan Adair DO 10/08/222006 Signed By: 10/08/222008 Normal [facility] XR chest 2V*on 10-01-2022 XR chest 2V* [facility] Main [address] [address] XRay Report Signed Patient: Mariana Kelly MR#: [id number] : 1970 Acct:[id number] Age/Sex: 51 / F ADM Date: 10/01/22 Loc: XDCLY Room: Type: [facility] Attending Dr: Ellie AYALA Copies to: ELLIE TORRES Ordering Provider: ELLIE TORRES Date of Service: 10/01/22 XR/XR chest 2V*: COUGH Chest 2 views CLINICAL HISTORY: Dry cough, hoarseness, shortness of breath, wheezing, upper middle back pain for 3 weeks. COMPARISON: None FINDINGS: Heart normal in size. Mild left lower lobe linear atelectasis/scarring. No consolidation pneumothorax pleural effusion or free air. XR/XR chest 2V* IMPRESSION: MILD LEFT LOWER LOBE LINEAR ATELECTASIS/SCARRING. NO CONSOLIDATION TO SUGGEST PNEUMONIA. Impression dictated by: Brice Taylor Jr., D.O.10/01/2022 3:33 PM Dictation Location: [facility] Transcribed By: [facility] 10/01/22 1533 Dictated By: Brice Taylor Jr, DO 10/01/22 1532 Signed By: 10/01/22 1533 Normal [facility] XR chest 2V* [facility] Access Closure Other XR chest 2V* [facility] Access Closure Other XR chest 2V* [address] [facility] Access Closure Other XR chest 2V* [place] [address] [facility] Access Closure Other XR chest 2V* XRay Report [facility] Access Closure Other XR chest 2V* Signed [facility] Access Closure Other XR chest 2V* Patient: Genevieve Kelly MR#: [id number] [facility] Access Closure Other XR chest 2V* 3649 [facility] Access Closure Other XR chest 2V* : 1970 Acct:[id number] [employer] Other XR chest 2V* Age/Sex: 51 / F ADM Date: 10/01/22 [facility] Other XR chest 2V* Loc: XDCLY [facility]: [facility] Other XR chest 2V* Attending Dr: Emery Torres [facility] Other XR chest 2V* [facility] Other XR chest 2V* Ordering Provider: ELLIE TORRES [facility] [employer] Other XR chest 2V* Date of Service: 10/01/22 [employer] Other XR chest 2V* XR/XR chest 2V*: COUGH [employer] Other XR chest 2V* Chest 2 views [facility] [employer] Other XR chest 2V* CLINICAL HISTORY: Dr arteaga cough, hoarseness, shortness of breath, wheezing, upper middle back pain for 3 [employer] Other XR chest 2V* weeks. [employer] Other XR chest 2V* COMPARISON: None [facility] Other XR chest 2V* FINDINGS: [employer] Other XR chest 2V* Heart normal in size . Mild left lower lobe linear atelectasis/scarring. No consolidation [employer] Other XR chest 2V* pneumothorax pleural effusion or free air. [employer] Other XR chest 2V* X R/XR chest 2V* [employer] Other XR chest 2V* IMPRESSION: [employer] Other XR chest 2V* MILD LEFT LOWER LOBE LINEAR ATELECTASIS/SCARRING. NO CONSOLIDATION TO SUGGEST PNEUMONIA. [facility] Other XR chest 2V* Impression dictated by: Brice Taylor Jr., D.O.10/01/2022 3:33 PM [facility] Other XR chest 2V* Dictation Location: [facility] Other XR chest 2V* Transcribed By: PWS 10/01/22 [facility] [employer] Other XR chest 2V* Dictated By: Brice Taylor Jr, DO 10/01/22 [facility] [employer] Other XR chest 2V* Signed By: [employer] Other XR chest 2V* 10/01/22 [facility] [employer] Other A1C HEMOGLOBINon 09-30-2022 HbA1c (Bld) [Mass fraction] 6.1 % [employer] Other HbA1c (Bld) [Mass fraction]o n 09-30-2022 A1C HEMOGLOBIN [employer] Other PROF CHEM 8 (BAS METB)on Anion gap [Moles/Vol] 17.9 mmol/L Normal [facility] Comment on above: Performed By: #### B MP #### [facility] [address] [place] [address] [address] Isabel Wolfe Calcium [Mass/Vol] 9.1 mg/dL Normal 8.5-10.1 [facility] Comment on above: Performed By: #### B MP #### [facility] [address] [place] [address] [address] Isabel Wolfe Chloride [Moles/Vol] 103 mmol/L Normal 98-107 [facility] Comment on above: Performed By: #### B MP #### [facility] [address] [place] [address] [address] Isabel Wolfe CO2 [Moles/Vol] 22.9 mmol/L Normal 21.0-32.0 [facility] Comment on above: Performed By: #### B MP #### [facility] [address] [place] [address] [address] Isabel Wolfe Creatinine [Mass/Vol] 0.92 mg/dL Normal 0.55-1.02 [facility] Comment on above: Performed By: #### B MP #### [facility] [address] [place] [address] [address] Isabel Wolfe EGFR-AF PORTUGUESE >60 Normal >=60 [facility] Comment on above: Performed By: #### B MP #### [facility] [address] [place] [address] [address] Isabel Wolfe EGFR-NON AF PORTUGUESE >60 Normal >=60 [facility] Comment on above: Performed By: #### B MP #### [facility] [address] [place] [address] [address] Isabel Wolfe Glucose [Mass/Vol] 178 mg/dL Critically high 74-106 T [facility] Comment on above: Performed By: #### B MP #### [facility] [address] [place] [address] [address] Isabel Wolfe Potassium [Moles/Vol] 3.8 mmol/L Normal 3.5-5.1 [facility] Comment on above: Performed By: #### B MP #### [facility] [address] [place] [address] [address] Isabel Wofle Sodium [Moles/Vol] 140 mmol/L Normal 136-145 [facility] Comment on above: Performed By: #### B MP #### [facility] [address] [place] [address] [address] Isabel Wolfe Urea nitrogen [Mass/Vol] 11.0 mg/dL Normal 7.0-18.0 [facility] Comment on above: Performed By: #### B MP #### [facility] [address] [place] [address] [address] Isabel Wolfe Urea nitrogen/Creatinine [Mass ratio] 12.0 mg/mg Normal [facility] Comment on above: Performed By: #### B MP #### [facility] [address] [place] [address] [address] Isabel Wolfe COVID + FLU Quick Testingon 09-20-2022 SARS-CoV-2 (COVID-19) RNA PIPER+probe Ql (Unsp spec) Negative [employer] Other COVID + FLU Quick Testing Negative [employer] Other Quick Strepon 09-20-2022 S. pyogenes Org specific cx Ql (Throat) Negative [facility] Access Closure Other Quick Strep [facility] Access Closure Other Automated erythrocytes count in urine sediment (number/area)Ordered By: Reinaldo Mehta on 09-10-2022 RBC Auto (Urine sed) [#/Area] 1-2 [HPF] 0-4 [facility] Automated leukocytes count i n urine sediment (number/area)Ordered By: Reinaldo Mehta on 09-10-2022 WBC Auto (Urine sed) [#/Area] 3-4 [HPF] 0-4 [facility] Basic Metabolic Panelon 08-30 Anion gap [Moles/Vol] 15.1 mmol/L High 6.0-15.0 [facility] Comment on above: Performed By: #### H EPATIC, CBC, PT, BMP, LIPASE ####[facility] [id number] [place] [id number] [facility] Calcium [Mass/Vol] 9.2 mg/dL Normal 8.2-10.2 [facility] Comment on above: Performed By: #### H EPATIC, CBC, PT, BMP, LIPASE ####[facility] [address] [place] [address] [facility] Chloride [Moles/Vol] 101 mmol/L Normal 95-114 [facility] Comment on above: Performed By: #### H EPATIC, CBC, PT, BMP, LIPASE ####[facility] [address] [place] [id number] [facility] CO2 [Moles/Vol] 23.8 mmol/L Normal 22.0-30.0 [facility] Comment on above: Performed By: #### H EPATIC, CBC, PT, BMP, LIPASE ####[place] [address] Creatinine [Mass/Vol] 0.84 mg/dL Normal 0.44-1.03 [facility] Comment on above: Performed By: #### H EPATIC, CBC, PT, BMP, LIPASE ####[address] Creatinine Clr Calc Pharmacy 101.87 [facility] Comment on above: Performed By: #### H EPATIC, CBC, PT, BMP, LIPASE ####[address] Estimated GFR ( Dorcas > 60 [facility] Comment on above: Result Comment: GFR estimated reference range: According to KDOQI guidelines, <60 ml/min/1.73m2 is sufficient to diagnose a patient with chronic kidney disease. Performed By: #### H EPATIC, CBC, PT, BMP, LIPASE ####[address] Estimated GFR (Non- Am > 60 [facility] Comment on above: Performed By: #### H EPATIC, CBC, PT, BMP, LIPASE ####[address] Glucose [Mass/Vol] 91 mg/dL Normal 70-100 [facility] Comment on above: Result Comment: [facility] Glucose Reference Range is dependent on time and content of last meal. Glucose of more than 200 mg/dL in a nonstressed, ambulatory subject supports the diagnosis of Diabetes Mellitus. ADA recommended reference range Performed By: #### H EPATIC, CBC, PT, BMP, LIPASE ####[address] Potassium [Moles/Vol] 2.9 mmol/L Off scale low 3.5-5.1 [facility] Comment on above: Result Comment: Results called at 1921 on 09/10/22 Performed By: #### H EPATIC, CBC, PT, BMP, LIPASE ####[facility] [id number] Sodium [Moles/Vol] 137 mmol/L Normal 136-146 [facility] Comment on above: Performed By: #### H EPATIC, CBC, PT, BMP, LIPASE ####[facility] [id number] Urea nitrogen [Mass/Vol] 10 mg/dL Normal 9-23 [facility] Comment on above: Performed By: #### H EPATIC, CBC, PT, BMP, LIPASE ####[facility] [id number] Basophils Auto (Bld) [#/Vol] Ordered By: Reinaldo Mehta on 09-10-2022 Basophils (Bld) [#/Vol] 0.1 10*3/uL 0.0-0.2 [facility] Basophils/100 WBC Auto (Bld) Ordered By: Reinaldo Mehta on 09-10-2022 Basophils/100 WBC (Bld) 0.6 % . [facility] Bilirubin Test strip Ql (U)O rdered By: Reinaldo Mehta on 09-10-2022 Bilirubin Ql (U) Negative Negative [facility] Body fluid albumin measureme nt (mass/volume)Ordered By: Reinaldo Mehta on 09-10-2022 Albumin (Body fld) [Mass/Vol] 3.6 g/dL 3.2-5.[address] [facility] [address] abdomen pelvis w conon CT abdomen pelvis w con [facility] [place] [address] CT Scan Report Signed Patient: Mariana Kelly MR#: [id number] : 1970 Acct:[id number] Age/Sex: 51 / F ADM Date: 09/10/22 Loc: ER Room: Type: [facility] ER Attending Dr: Copies to: Reinaldo Mehta DO Ordering Provider: Reinaldo Mehta DO Date of Service: 09/10/22 CT/CT abdomen pelvis w con: f CT abdomen and pelvis withcontrast TECHNIQUE: Axial imaging with 2-D reconstruction.90 cc of Isovue-300. The CT exam was performed using one or more the following dose reduction techniques: Automated exposure control, adjustment of the MA and/or Kv according to patient size, or use of the iterative reconstruction technique. COMPARISON:None History: Unable to urinate. Lung bases are unremarkable. No hepatic mass or intrahepatic biliary ductal dilatation identified. Normal density of the liver parenchyma identified. No gallbladder abnormality identified. No extrahepatic biliary ductal dilatation identified. There is no splenomegaly or splenic mass identified. No pancreatic mass or ductal dilatation identified. The adrenal glands are unremarkable. No nephrolithiasis or obstructive uropathy is identified. No abdominal aortic aneurysm identified. No significant retroperitoneal abnormalities identified. The small bowel loops are nondistended. The appendix is normal. There is no colonic wall thickening, distention or pericolonic inflammatory changes. Full catheter is in the nondistended urinary bladder. Reproductive structures are unremarkable. No free intraperitoneal air or fluid is identified. The bony structures are unremarkable. No subcutaneous soft tissue abnormality identified.Small fat-containing umbilical hernia present. CT/CT abdomen pelvis w con IMPRESSION: No acute findings. Impression dictated by: Juan Adair M.D.09/10/2022 8:05 PM Dictation Location: [place] [address] Transcribed By: [facility] 09/10/222004 Dictated By: Juan Adair DO 09/10/222001 Signed By: 09/10/222004 Normal [facility] Color Auto (U)Ordered By: Shady Mehta on 09-10-2022 Color (U) Yellow Yellow [facility] Complete Blood Count Auto Di ffon 09-10-2022 Basophils (Bld) [#/Vol] 0.1 10*3/uL Normal 0.0-0.2 [facility] Comment on above: Result Comment: PERF ORMED BY: [facility] [address] [place] [address] PATHOLOGIST SIZE MIXER JAZZY HIGGINS M.D. Performed By: #### H EPATIC, CBC, PT, BMP, LIPASE ####[facility] [id number] [place] [place] [id number] [facility] Basophils/100 WBC (Bld) 0.6 % Normal . [facility] Comment on above: Performed By: #### H EPATIC, CBC, PT, BMP, LIPASE ####[address] Eosinophils (Bld) [#/Vol] 0.2 10*3/uL Normal 0.0-0.45 [facility] Comment on above: Performed By: #### H EPATIC, CBC, PT, BMP, LIPASE ####[address] Eosinophils/100 WBC (Bld) 1.6 % Normal . [facility] Comment on above: Performed By: #### H EPATIC, CBC, PT, BMP, LIPASE ####[address] Erythrocyte distribution width (RBC) [Ratio] 13.6 % Normal 11.9-15.3 [facility] Comment on above: Performed By: #### H EPATIC, CBC, PT, BMP, LIPASE ####[address] Hematocrit (Bld) [Volume fraction] 40.7 % Normal 34.0-46.4 [facility] Comment on above: Performed By: #### H EPATIC, CBC, PT, BMP, LIPASE ####[address] Hemoglobin (Bld) [Mass/Vol] 13.5 g/dL Normal 11.8-15.4 [facility] Comment on above: Performed By: #### H EPATIC, CBC, PT, BMP, LIPASE ####[address] Lymphocytes (Bld) [#/Vol] 3.5 10*3/uL Normal 1.00-4.8 [facility] Comment on above: Performed By: #### H EPATIC, CBC, PT, BMP, LIPASE ####[address] Lymphocytes/100 WBC (Bld) 29.7 % Normal . [facility] Comment on above: Performed By: #### H EPATIC, CBC, PT, BMP, LIPASE ####[address] MCH (RBC) [Entitic mass] 30.5 pg Normal 24.7-34.3 [facility] Comment on above: Performed By: #### H EPATIC, CBC, PT, BMP, LIPASE ####[address] MCV (RBC) [Entitic vol] 91.9 fL Normal 80-100 [facility] Comment on above: Performed By: #### H EPATIC, CBC, PT, BMP, LIPASE ####[address] Mean Corpuscular HGB Conc 33.2 g/dL Normal 32.0-35.0 [facility] Comment on above: Performed By: #### H EPATIC, CBC, PT, BMP, LIPASE ####[address] Monocytes (Bld) [#/Vol] 0.8 10*3/uL Normal 0.0-0.8 [facility] Comment on above: Performed By: #### H EPATIC, CBC, PT, BMP, LIPASE ####[address] Monocytes/100 WBC (Bld) 18.22 % Normal 0.00-20.00 [facility] Comment on above: Performed By: #### H EPATIC, CBC, PT, BMP, LIPASE ####[address] Monocytes/100 WBC (Bld) 6.7 % Normal . [facility] Comment on above: Performed By: #### H EPATIC, CBC, PT, BMP, LIPASE ####[address] Neutrophils (Bld) [#/Vol] 7.2 10*3/uL Normal 1.8-7.7 [facility] Comment on above: Performed By: #### H EPATIC, CBC, PT, BMP, LIPASE ####[address] Neutrophils/100 WBC (Bld) 61.4 % Normal . [facility] Comment on above: Performed By: #### H EPATIC, CBC, PT, BMP, LIPASE ####[address] NRBC% 0.0 /100{WBC} Normal 0-0.5 [facility] Comment on above: Performed By: #### H EPATIC, CBC, PT, BMP, LIPASE ####[address] Platelet mean volume (Bld) [Entitic vol] 7.7 fL Normal 6.3-10.7 [facility] Comment on above: Performed By: #### H EPATIC, CBC, PT, BMP, LIPASE ####[address] Platelets (Bld) [#/Vol] 367 10*3/uL Normal 150-450 [facility] Comment on above: Performed By: #### H EPATIC, CBC, PT, BMP, LIPASE ####[address] RBC (Bld) [#/Vol] 4.42 10*6/uL Normal 3.60-5.00 [facility] Comment on above: Performed By: #### H EPATIC, CBC, PT, BMP, LIPASE ####[address] WBC (Bld) [#/Vol] 11.7 10*3/uL High 3.8-11.6 [facility] Comment on above: Performed By: #### H EPATIC, CBC, PT, BMP, LIPASE ####[address] Creatinine and Glomerular fi ltration rate.predicted panel (S/P/Bld)Ordered By: Reinaldo Mehta on 09-10-2022 Creatinine [Mass/Vol] 0.84 mg/dL 0.44-1.03 [facility] Dipstick and Microscopicon 0 09-10-2022 Appearance (U) Clear Normal Clear [facility] Comment on above: Order Comment: Name Collection Type:: Clean-Voided Midstream Performed By: #### A DDONUAPLUS #### [facility] [address] [place] [address] [place] Bacteria,Urine None Seen Normal None Seen [facility] Comment on above: Order Comment: Name Collection Type:: Clean-Voided Midstream Performed By: #### A DDONUAPLUS #### [place] [address] [place] Bilirubin,Urine Negative Normal Negative [facility] Comment on above: Order Comment: Name Collection Type:: Clean-Voided Midstream Performed By: #### A DDONUAPLUS #### [facility] [address] [place] [address] [place] Color (U) Yellow Normal Yellow [facility] Comment on above: Order Comment: Name Collection Type:: Clean-Voided Midstream Performed By: #### A DDONUAPLUS #### [facility] [address] [place] [address] [place] Glucose Ql (U) Normal Normal Normal [facility] Comment on above: Order Comment: Name Collection Type:: Clean-Voided Midstream Performed By: #### A DDONUAPLUS #### [facility] [address] [place] [address] [place] Hyaline Casts,Urine 0-8 Normal 0-8 [facility] Comment on above: Order Comment: Name Collection Type:: Clean-Voided Midstream Result Comment: PERF ORMED BY: [place] [address] PATHOLOGIST SIZE MIXER JAZZY HIGGINS M.D. Performed By: #### A DDONUAPLUS #### [facility] [address] [place] [address] [place] Ketones Ql (U) Trace High Negative [facility] Comment on above: Order Comment: Name Collection Type:: Clean-Voided Midstream Performed By: #### A DDONUAPLUS #### [facility] [address] Leukocyte esterase Test strip Ql (U) 1+ High Negative [facility] Comment on above: Order Comment: Name Collection Type:: Clean-Voided Midstream Performed By: #### A DDONUAPLUS #### [facility] [address] [place] [address] [place] Nitrite,Urine Negative Normal Negative [facility] Comment on above: Order Comment: Name Collection Type:: Clean-Voided Midstream Performed By: #### A DDONUAPLUS #### [address] Occult Blood,Urine Negative Normal Negative [facility] Comment on above: Order Comment: Name Collection Type:: Clean-Voided Midstream Result Comment: PERF ORMED BY: [place] [address] PATHOLOGIST SIZE MIXER JAZZY HIGGINS M.D. Performed By: #### A DDONUAPLUS #### [facility] [address] [place] [address] [place] pH (U) 6.0 [pH] Normal 5.0-9.0 [facility] Comment on above: Order Comment: Name Collection Type:: Clean-Voided Midstream Performed By: #### A DDONUAPLUS #### [facility] [address] [place] [address] [place] Protein,Urine Trace High Negative [facility] Comment on above: Order Comment: Name Collection Type:: Clean-Voided Midstream Performed By: #### A DDONUAPLUS #### [facility] [address] [place] [address] [place] RBC,Urine 1-2 Normal 0-4 [facility] Comment on above: Order Comment: Name Collection Type:: Clean-Voided Midstream Performed By: #### A DDONUAPLUS #### [facility] [address] [place] [address] [place] Specificy [place],Urine 1.025 Normal 1.001-1.03 0 [facility] Comment on above: Order Comment: Name Collection Type:: Clean-Voided Midstream Performed By: #### A DDONUAPLUS #### [facility] [address] Squamous Epithelial Cell,Urine 1-2 Normal 0-2 [facility] Comment on above: Order Comment: Name Collection Type:: Clean-Voided Midstream Performed By: #### A DDONUAPLUS #### [facility] [address] Urobilinogen,Urine Normal Normal Normal [facility] Comment on above: Order Comment: Name Collection Type:: Clean-Voided Midstream Performed By: #### A DDONUAPLUS #### [facility] [address] WBC,Urine 3-4 Normal 0-4 [facility] Comment on above: Order Comment: Name Collection Type:: Clean-Voided Midstream Performed By: #### A DDONUAPLUS #### [facility] [address] [place] [address] Direct bilirubin measurement Ordered By: Reinaldo Mehta on 09-10-2022 Bilirubin.direct [Mass/Vol] 0.1 mg/dL 0.0-0.4 [facility] Eosinophils Auto (Bld) [#/Vo l]Ordered By: Reinaldo Mehta on 09-10-2022 Eosinophils (Bld) [#/Vol] 0.2 10*3/uL 0.0-0.45 [facility] Eosinophils/100 WBC Auto (Bl d)Ordered By: Reinaldo Mehta on 09-10-2022 Eosinophils/100 WBC (Bld) 1.6 % . [facility] Erythrocyte distribution wid th Auto (RBC) [Ratio]Ordered By: Reinaldo Mehta on 09-10-2022 Erythrocyte distribution width (RBC) [Ratio] 13.6 % 11.9-15.3 [facility] Estimated glomerular filtrat ion rate (GFR) non- AmericanOrdered By: Reinaldo Mehta on 09-10-2022 GFR/1.73 sq M.predicted among non-blacks MDRD (S/P/Bld) [Vol rate/Area] > 60 mL/Min [facility] Globulin Calc (S) [Mass/Vol] Ordered By: Reinaldo Mehta on 09-10-2022 Globulin (S) [Mass/Vol] 3.1 g/dL [facility] Hematocrit Auto (Bld) [Volum e fraction]Ordered By: Reinaldo Mehta on 09-10-2022 Hematocrit (Bld) [Volume fraction] 40.7 % 34.0-46.4 [facility] Hemoglobin [Mass/volume] in BloodOrdered By: Reinaldo Mehta on 09-10-2022 Hemoglobin (Bld) [Mass/Vol] 13.5 g/dL 11.8-15.4 [facility] Hepatic Panelon 09-10-2022 Albumin [Mass/Vol] 3.6 g/dL Normal 3.2-5.5 [facility] Comment on above: Performed By: #### H EPATIC, CBC, PT, BMP, LIPASE ####[place] [id number] [facility] Albumin/Globulin [Mass ratio] 1.2 {ratio} Normal [facility] Comment on above: Performed By: #### H EPATIC, CBC, PT, BMP, LIPASE ####[place] [address] [place] [address] [facility] ALP [Catalytic activity/Vol] 89 U/L Normal 32-92 [facility] Comment on above: Performed By: #### H EPATIC, CBC, PT, BMP, LIPASE ####[address] [address] [facility] ALT [Catalytic activity/Vol] 16 U/L Normal 10-60 [facility] Comment on above: Performed By: #### H EPATIC, CBC, PT, BMP, LIPASE ####[address] [address] [facility] AST [Catalytic activity/Vol] 15 U/L Normal 10-42 [facility] Comment on above: Performed By: #### H EPATIC, CBC, PT, BMP, LIPASE ####[place] [id number] [facility] Bilirubin [Mass/Vol] 0.5 mg/dL Normal 0.3-1.2 [facility] Comment on above: Performed By: #### H EPATIC, CBC, PT, BMP, LIPASE ####[address] Bilirubin,Indirect 0.4 mg/dL Normal [facility] Comment on above: Performed By: #### H EPATIC, CBC, PT, BMP, LIPASE ####[address] Bilirubin.indirect [Mass/Vol] 0.1 mg/dL Normal 0.0-0.4 [facility] Comment on above: Performed By: #### H EPATIC, CBC, PT, BMP, LIPASE ####[address] Globulin (S) [Mass/Vol] 3.1 g/dL Normal [facility] Comment on above: Performed By: #### H EPATIC, CBC, PT, BMP, LIPASE ####[address] Protein [Mass/Vol] 6.7 g/dL Normal 6.1-7.9 [facility] Comment on above: Performed By: #### H EPATIC, CBC, PT, BMP, LIPASE ####[address] Ketones Auto test strip (U) [Mass/Vol]Ordered By: Reinaldo Mehta on 09-10-2022 Ketones (U) [Mass/Vol] Trace Negative [facility] - Chemistry and C hemistry - challengeOrdered By: Reinaldo Mehta on 09-10-2022 Lipase [Catalytic activity/Vol] 41.0 U/L 22-51 [facility] - CoagulationOrde red By: Reinaldo Mehta on 09-10-2022 PT Coag (PPP) [Time] 13.6 s 9.0-12.9 [facility] - UrinalysisOrder ed By: Reinaldo Mehta on 09-10-2022 Hyaline casts LM Ql (Urine sed) 0-8 [LPF] 0-8 [facility] Leukocytes [#/volume] correc aleksey for nucleated erythrocytes in Blood by Automated counOrdered By: Reinaldo Mehta on 09-10-2022 WBC corrected for nucl RBC Auto (Bld) [#/Vol] 11.7 10*3/uL 3.8-11.6 [facility] Lipaseon 09-10-2022 Lipase [Catalytic activity/Vol] 41.0 U/L Normal 22-51 [facility] Comment on above: Result Comment: PERF ORMED BY: [facility] [address] [place] [address] PATHOLOGIST SIZE MIXER JAZZY HIGGINS M.D. Performed By: #### H EPATIC, CBC, PT, BMP, LIPASE ####[facility] [place] [address] [facility] Lymphocytes Auto (Bld) [#/Vo l]Ordered By: Reinaldo Mehta on 09-10-2022 Lymphocytes (Bld) [#/Vol] 3.5 10*3/uL 1.00-4.8 [facility] Lymphocytes/100 WBC Auto (Bl d)Ordered By: Reinaldo Mehta on 09-10-2022 Lymphocytes/100 WBC (Bld) 29.7 % . [facility] MCH Auto (RBC) [Entitic mass ]Ordered By: Reinaldo Mehta on 09-10-2022 MCH (RBC) [Entitic mass] 30.5 pg 24.7-34.3 [facility] MCHC Auto (RBC) [Mass/Vol]Or dered By: Reinaldo Mehta on 09-10-2022 MCHC (RBC) [Mass/Vol] 33.2 g/dL 32.0-35.0 [facility] MCV Auto (RBC) [Entitic vol] Ordered By: Reinaldo Mehta on 09-10-2022 MCV (RBC) [Entitic vol] 91.9 fL 80-100 [facility] Monocyte distribution width [Entitic volume] in Blood by AutomatedOrdered By: Reinaldo Mehta on 09-10-2022 Monocyte distribution width Auto (Bld) [Entitic vol] 18.22 % 0.00-20.00 [facility] Monocytes Auto (Bld) [#/Vol] Ordered By: Reinaldo Mehta on 09-10-2022 Monocytes (Bld) [#/Vol] 0.8 10*3/uL 0.0-0.8 [facility] Monocytes/100 WBC Auto (Bld) Ordered By: Reinaldo Mehta on 09-10-2022 Monocytes/100 WBC (Bld) 6.7 % . [facility] Neutrophils Auto (Bld) [#/Vo l]Ordered By: Reinaldo Mehta on 09-10-2022 Neutrophils (Bld) [#/Vol] 7.2 10*3/uL 1.8-7.7 [facility] Neutrophils/100 WBC Auto (Bl d)Ordered By: Reinaldo Mehta on 09-10-2022 Neutrophils/100 WBC (Bld) 61.4 % . [facility] Nitrite Test strip Ql (U)Ord ered By: Reinaldo Mehta on 09-10-2022 Nitrite Ql (U) Negative Negative [facility] No Panel InformationOrdered By: Reinaldo Mehta on 09-10-2022 Estimated GFR () > 60 mL/Min [facility] Comment on above: GFR estimated refere nce range: According to KDOQI guidelines, <60 ml/min/1.73m2 is sufficient to diagnose a patient with chronic kidney disease. Pharmacy Creatinine Clearance (Chem 101.87 [facility] Nucleated erythrocytes [Pres ence] in Blood by Automated countOrdered By: Reinaldo Mehta on 09-10-2022 Nucleated RBC Auto Ql (Bld) 0.0 /100{WBC} 0-0.5 [facility] Platelet mean volume Auto (B ld) [Entitic vol]Ordered By: Reinaldo Mehta on 09-10-2022 Platelet mean volume (Bld) [Entitic vol] 7.7 fL 6.3-10.7 [facility] Platelet poor plasma interna tional normalized ratio (INR) by coagulation assay (relatOrdered By: Reinaldo Mehta on 09-10-2022 INR Coag (PPP) [Relative time] 1.2 {INR} [facility] Comment on above: INR Therapeutic Rang e A) Pre- and Peroperative OAT started two weeks before surgery. NOT HIP SURGERY: 1.5 - 2.5 HIP SURGERY: 2 - 3B) Primary and secondary prevention of venous THROMBOSIS: 2 - 3C) Active venous thrombosis, pulmonary embolismand prevention of recurrent venous thrombosis: 2 - 3D) Prevention of arterial thromboembolismincluding patients with mechanical heart valves: 3 - 4.5 Platelets Auto (Bld) [#/Vol] Ordered By: Reinaldo Mehta on 09-10-2022 Platelets (Bld) [#/Vol] 367 10*3/uL 150-450 [facility] Protein Auto test strip (U) [Mass/Vol]Ordered By: Reinaldo Mehta on 09-10-2022 Protein (U) [Mass/Vol] Trace mg/dL Negative [facility] Protein [Mass/volume] in Ser um or PlasmaOrdered By: Reinaldo Mehta on 09-10-2022 Protein [Mass/Vol] 6.7 g/dL 6.1-7.9 [facility] Prothrombin Time INRon 09-10 INR Coag (PPP) [Relative time] 1.2 {INR} Normal [facility] Comment on above: Result Comment: INR Therapeutic Range A) Pre- and Peroperative OAT started two weeks before surgery. NOT HIP SURGERY: 1.5 - 2.5 HIP SURGERY: 2 - 3 B) Primary and secondary prevention of venous THROMBOSIS: 2 - 3 C) Active venous thrombosis, pulmonary embolism and prevention of recurrent venous thrombosis: 2 - 3 D) Prevention of arterial thromboembolism including patients with mechanical heart valves: 3 - 4.5 PERFORMED BY: [facility] [address] [place] [address] PATHOLOGIST SIZE MIXER JAZZY HIGGINS M.D. Performed By: #### H EPATIC, CBC, PT, BMP, LIPASE ####[facility] [id number] [place] [id number] [facility] PT Coag (PPP) [Time] 13.6 s High 9.0-12.9 [facility] Comment on above: Performed By: #### H EPATIC, CBC, PT, BMP, LIPASE ####[facility] [id number] [place] [id number] [facility] RBC Auto (Bld) [#/Vol]Ordere d By: Reinaldo Mehta on 09-10-2022 RBC (Bld) [#/Vol] 4.42 10*6/uL 3.60-5.00 [facility] Serum or plasma alanine blanco otransferase measurement without P-5'-P (enzymatic activiOrdered By: Reinaldo Mehta on 09-10-2022 ALT No additional P-5'-P [Catalytic activity/Vol] 16 U/L 10-60 [facility] Serum or plasma albumin/glob ulin mass ratioOrdered By: Reinaldo Mehta on 09-10-2022 Albumin/Globulin [Mass ratio] 1.2 {ratio} [facility] Serum or plasma alkaline shyla sphatase measurement (enzymatic activity/volume)Ordered By: Reinaldo Mehta on 09-10-2022 ALP [Catalytic activity/Vol] 89 U/L 32-92 [facility] Serum or plasma anion gap de terminationOrdered By: Reinaldo Mehta on 09-10-2022 Anion gap [Moles/Vol] 15.1 mmol/L 6.0-15.0 [facility] Serum or plasma aspartate am inotransferase measurement (enzymatic activity/volume)Ordered By: Reinaldo Mehta on 09-10-2022 AST [Catalytic activity/Vol] 15 U/L 10-42 [facility] Serum or plasma calcium rocío urement (mass/volume)Ordered By: Reinaldo Mehta on 09-10-2022 Calcium [Mass/Vol] 9.2 mg/dL 8.2-10.2 [facility] Serum or plasma chloride martin surement (moles/volume)Ordered By: Reinaldo Mehta on 09-10-2022 Chloride [Moles/Vol] 101 mmol/L 95-114 [facility] Serum or plasma glucose rocío urement (mass/volume)Ordered By: Reinaldo Mehta on 09-10-2022 Glucose [Mass/Vol] 91 mg/dL 70-100 [facility] Comment on above: ADA recommended refe rence rangeRandom Glucose Reference Range is dependent on time and content of last meal. Glucose of more than 200 mg/dL in a nonstressed, ambulatory subject supports the diagnosis of Diabetes Mellitus. Serum or plasma non-glucuron idated bilirubin measurement (mass/volume)Ordered By: Reinaldo Mehta on 09-10-2022 Bilirubin.indirect [Mass/Vol] 0.4 mg/dL [facility] Serum or plasma potassium me asurement (moles/volume)Ordered By: Reinaldo Mehta on 01-12-2023 Potassium [Moles/Vol] 2.9 mmol/L 3.5-5.1 [facility] Comment on above: Results calledat 192 1 on 09/10/22 Serum or plasma sodium measu rement (moles/volume)Ordered By: Reinaldo Mehta on 09-10-2022 Sodium [Moles/Vol] 137 mmol/L 136-146 [facility] Serum or plasma total biliru bin measurement (mass/volume)Ordered By: Reinaldo Mehta on 09-10-2022 Bilirubin [Mass/Vol] 0.5 mg/dL 0.3-1.2 [facility] Serum or plasma total carbon dioxide measurement (moles/volume)Ordered By: Reinaldo Mehta on 09-10-2022 CO2 [Moles/Vol] 23.8 mmol/L 22.0-30.0 [facility] Serum or plasma urea nitroge n measurement (mass/volume)Ordered By: Reinaldo Mehta on 09-10-2022 Urea nitrogen [Mass/Vol] 10 mg/dL 9- [facility] Specific gravity Auto test s trip (U) [Rel density]Ordered By: Reinaldo Mehta on 09-10-2022 Specific gravity (U) [Rel density] 1.025 1.001-1.03 0 [facility] Squamous epithelial cells de tection in urine sediment by light microscopyOrdered By: Reinaldo Mehta on 09-10-2022 Epithelial cells.squamous LM Ql (Urine sed) 1-2 [HPF] 0-2 [facility] Urine bacteria detection by automated methodOrdered By: Reinaldo Mehta on 09-10-2022 Bacteria Auto Ql (U) None seen None Seen [facility] Urine clarity by refractomet ry automatedOrdered By: Reinaldo Mehat on 09-10-2022 Clarity Refractometry automated (U) Clear Clear [facility] Urine glucose measurement by automated test strip (mass/volume)Ordered By: Reinaldo Mehta on 09-10-2022 Glucose Auto test strip (U) [Mass/Vol] Normal mg/dL Normal [facility] Urine hemoglobin detection b y automated test stripOrdered By: Reinaldo Mehta on 09-10-2022 Hemoglobin Auto test strip Ql (U) Negative Negative [facility] Urine leukocyte esterase det ection by automated test stripOrdered By: Reinaldo Mehta on 09-10-2022 Leukocyte esterase Auto test strip Ql (U) 1+ Negative [facility] Urobilinogen Auto test strip (U) [Mass/Vol]Ordered By: Reinaldo Mehta on 09-10-2022 Urobilinogen (U) [Mass/Vol] Normal mg/dL Normal [facility] WBC Auto (Bld) [#/Vol]Ordere d By: Reinaldo Mehta on 09-10-2022 WBC (Bld) [#/Vol] 11.7 10*3/uL 3.8-11.6 [facility] pH Auto test strip (U)Ordere d By: Reinaldo Mehta on 09-10-2022 pH (U) 6.0 [pH] 5.0-9.0 [facility] COVID/FLU RT-PCRon SARS-CoV-2 (COVID-19) RNA PIPER+probe Ql (Unsp spec) Negative [facility] Other COVID/FLU RT-PCR Negative [facility] [employer] Other Quick Strepon 07-02-2022 S. pyogenes Org specific cx Ql (Throat) Negative [facility] [employer] Other Atooma Strep [facility] Other FREE T4on 06-05-2022 Free T4 [Mass/Vol] 0.77 ng/dL Normal 0.76-1.46 [facility] Comment on above: Performed By: #### F T4 #### [facility] [address] [place] [address] Dr. Isabel Wolfe T4on 06-05-2022 T4 [Mass/Vol] 6.20 ug/dL Normal 4.80-13.90 [facility] Comment on above: Performed By: #### T 4, TSH #### [facility] [address] [place] [address] Dr. Isabel Wolfe TSHon 06-05-2022 TSH 0.845 uIU/mL Normal 0.358-3.74 0 [facility] Comment on above: Performed By: #### T 4, TSH #### [facility] [address] [address] [address] Isabel Wolfe MICROALBUMIN/ CREATININE RAT IOon 04-09-2022 Albumin, Urine 4.4 ug/mL Normal Not Estab. [facility] Comment on above: Performed By: #### M ALBCRL #### [facility] [address] [place] [address] Dr. Isabel Wolfe Albumin/ Creatinine Ratio 11 mg/g creat Normal 0-29 [facility] Comment on above: Result Comment: Norm al: 0 - 29 Moderately increased: 30 - 300 Severely increased: >300 Performed By: #### M ALBCRL #### [facility] [address] [place] [address] Dr. Isabel Wolfe Creatinine, Urine 41.2 mg/dL Normal Not Estab. [facility] Comment on above: Performed By: #### M ALBCRL #### [facility] [address] [address] [address] Isabel Wolfe GLYCOHEMOGLOBIN A1Con 2021 ADA RECOMMENDATION SEE BELOW Normal [facility] Comment on above: Result Comment: ADA RECOMMENDED LIMIT 4.0 - 6.0 ADA THERAPEUTIC TARGET < 7.0 ACTION SUGGESTED > 7.0 Performed By: #### A 1C #### [facility] [address] [place] [address] Dr. Isabel Wolfe Glucose [Mass/Vol] 117 mg/dL Normal [facility] Comment on above: Performed By: #### A 1C #### [facility] [address] [address] [address] Isabel Wolfe HbA1c (Bld) [Mass fraction] 5.7 % Normal 4.5-6.2 [facility] Comment on above: Performed By: #### A 1C #### [facility] [address] [place] [address] Dr. Isabel Wolfe LIPID PROFILEon 04-06-2022 CHOL-HDL RATIO NORM SEE BELOW Normal [facility] Comment on above: Result Comment: 3.3 - 4.4 LOW RISK 4.4 - 7.1 AVERAGE RISK 7.1 - 11.0 MODERATE RISK >11.0 HIGH RISK Performed By: #### L IPID, CMP #### [facility] [address] [address] [address] Isabel Wolfe Cholesterol [Mass/Vol] 165 mg/dL Normal <=200 [facility] Comment on above: Performed By: #### L IPID, CMP #### [facility] [address] [address] [address] Isabel Wolfe Cholesterol in HDL [Mass/Vol] 38 mg/dL Critically low 40-60 [facility] Comment on above: Performed By: #### L IPID, CMP #### [facility] [address] [address] [address] Isabel Wolfe Cholesterol in LDL [Mass/Vol] 110.0 mg/dL Normal [facility] Comment on above: Performed By: #### L IPID, CMP #### [facility] [address] [place] [address] Dr. Isabel Wolfe Cholesterol.total/Chol esterol in HDL [Mass ratio] 4.3 {ratio} Normal [facility] Comment on above: Performed By: #### L IPID, CMP #### [facility] [address] [address] [address] Isabel Wolfe HDL NORMAL > or = 60 mg/dl - LO W CARDIOVASCULAR RISK <40 mg/dl - HIGH CARDIOVASCULAR RISK Normal [facility] Comment on above: Performed By: #### L IPID, CMP #### [facility] [address] [address] [address] Isabel Wolfe LDL CALC NORMAL SEE BELOW Normal [facility] Comment on above: Result Comment: <100 mg/dl OPTIMAL 100 - 129 mg/dl NEAR OR ABOVE OPTIMAL 130 - 159 mg/dl BORDERLINE HIGH 160 - 189 mg/dl HIGH >190 mg/dl VERY HIGH Performed By: #### L IPID, CMP #### [facility] [address] [address] [address] Isabel Wolfe Triglyceride [Mass/Vol] 85 mg/dL Normal <=150 [facility] Comment on above: Performed By: #### L IPID, CMP #### [facility] [address] [place] [address] Dr. Isabel Wolfe VLDL CALC 17.0 mg/dL Normal [facility] Comment on above: Performed By: #### L IPID, CMP #### [facility] [address] [place] [address] Dr. Isabel Wolfe PROF 14(COMP METB)on 022 Albumin [Mass/Vol] 3.3 g/dL Critically low 3.4-5.0 [facility] Comment on above: Performed By: #### L IPID, CMP #### [facility] [address] [place] [address] Dr. Isabel Wolfe Albumin/Globulin [Mass ratio] 0.9 {ratio} Normal [facility] Comment on above: Performed By: #### L IPID, CMP #### [facility] [address] [place] [address] Dr. Isabel Wolfe ALP [Catalytic activity/Vol] 86 U/L Normal 46-116 [facility] Comment on above: Performed By: #### L IPID, CMP #### [facility] [address] [place] [address] Dr. Isabel Wolfe ALT [Catalytic activity/Vol] 17 U/L Normal 14-59 [facility] Comment on above: Performed By: #### L IPID, CMP #### [facility] [address] [place] [address] Dr. Isabel Wolfe Anion gap [Moles/Vol] 14.3 mmol/L Normal [facility] Comment on above: Performed By: #### L IPID, CMP #### [facility] [address] [place] [address] Dr. Isabel Wolfe AST [Catalytic activity/Vol] 10 U/L Critically low 15-37 [facility] Comment on above: Performed By: #### L IPID, CMP #### [facility] [address] [place] [address] Dr. Isabel Wolfe Bilirubin [Mass/Vol] 0.5 mg/dL Normal 0.2-1.0 [facility] Comment on above: Performed By: #### L IPID, CMP #### [facility] [address] [address] [address] Isabel Wolfe Calcium [Mass/Vol] 9.0 mg/dL Normal 8.5-10.1 [facility] Comment on above: Performed By: #### L IPID, CMP #### [facility] [address] [address] [address] Isabel Wolfe Chloride [Moles/Vol] 104 mmol/L Normal 98-107 [facility] Comment on above: Performed By: #### L IPID, CMP #### [facility] [address] [address] [address] Isabel Wolfe CO2 [Moles/Vol] 25.8 mmol/L Normal 21.0-32.0 [facility] Comment on above: Performed By: #### L IPID, CMP #### [facility] [address] [place] [address] Dr. Isabel Wolfe Creatinine [Mass/Vol] 0.95 mg/dL Normal 0.55-1.02 [facility] Comment on above: Performed By: #### L IPID, CMP #### [facility] [address] [address] [address] Isabel Wolfe EGFR-AF PORTUGUESE >60 Normal >=60 [facility] Comment on above: Performed By: #### L IPID, CMP #### [facility] [address] [place] [address] Dr. Isabel Wolfe EGFR-NON AF PORTUGUESE >60 Normal >=60 [facility] Comment on above: Performed By: #### L IPID, CMP #### [facility] [address] [address] [address] Isabel Wolfe Globulin (S) [Mass/Vol] 3.6 g/dL Normal [facility] Comment on above: Performed By: #### L IPID, CMP #### [facility] [address] [address] [address] Isabel Wolfe Glucose [Mass/Vol] 101 mg/dL Normal 74-106 [facility] Comment on above: Performed By: #### L IPID, CMP #### [facility] [address] [address] [address] Isabel Wolfe Potassium [Moles/Vol] 4.1 mmol/L Normal 3.5-5.1 [facility] Comment on above: Performed By: #### L IPID, CMP #### [facility] [address] [address] [address] Isabel Wolfe Protein [Mass/Vol] 6.9 g/dL Normal 6.4-8.2 [facility] Comment on above: Performed By: #### L IPID, CMP #### [facility] [address] [address] [address] Isabel Wolfe Sodium [Moles/Vol] 140 mmol/L Normal 136-145 [facility] Comment on above: Performed By: #### L IPID, CMP #### [facility] [address] [address] [address] Isabel Wolfe Urea nitrogen [Mass/Vol] 12.0 mg/dL Normal 7.0-18.0 [facility] Comment on above: Performed By: #### L IPID, CMP #### [facility] [address] [address] [address] Isabel Wolfe Urea nitrogen/Creatinine [Mass ratio] 12.6 mg/mg Normal [facility] Comment on above: Performed By: #### L IPID, CMP #### [facility] [address] [place] [address] Dr. Isabel Wolfe COVID Quick Testingon 2020 Result Negative [facility] Other MRI ELBOW LEFT WO CONTRASTon 08-10-2020 MRI ELBOW LEFT WO CONTRAST EXAMINATION: MRI OF THE LEFT ELBOW WITHOUT CONTRAST, 08/10/2020 9:27 am TECHNIQUE: Multiplanar multisequence MRI of the left elbow was performed without the administration of intravenous contrast. COMPARISON: None HISTORY: ORDERING SYSTEM PROVIDED HISTORY: Left elbow pain TECHNOLOGIST PROVIDED HISTORY: Is the patient ?->No Reason for Exam: Left elbow pain , left lateral epicondilytis Acuity: Chronic Type of Exam: Initial Additional signs and symptoms: pain, tenderness past three years . Progreesively worse Relevant Medical/Surgical History: Poor FAT/SAT due to pt habitus positioning coil close to edge of bore 49-year-old female with left elbow pain and possible left lateral epicondylitis FINDINGS: MEDIAL EPICONDYLE: The common flexor origin from the medial epicondyle is normal in appearance. No evidence of tendinosis or tear to suggest medial epicondylitis. LATERAL EPICONDYLE: High-grade partial-thickness tearing at the origin of the common extensor tendon on image 9, series 6. Moderate underlying tendinosis. No subjacent marrow edema in the lateral epicondyle. MEDIAL COLLATERAL LIGAMENT: The ulnar collateral ligament, including the anterior and posterior bands, is intact and unremarkable in appearance. LATERAL COLLATERAL LIGAMENT: The lateral collateral ligaments including the lateral ulnar collateral ligament are intact and unremarkable in appearance. MUSCLES / TENDONS: The biceps and brachialis tendon insertions are normal in appearance. No evidence of tear or strain. The triceps tendon insertion on the olecranon is also unremarkable in appearance. ULNAR NERVE: The ulnar nerve is normally located in the ulnar sulcus and is unremarkable in appearance. JOINT SPACES: Small joint effusion. No intra-articular loose body. Radiohumeral and ulnohumeral joint spaces are well maintained. BONE MARROW: Osseous alignment is normal. No acute fracture or dislocation. Bone marrow signal intensity within the visualized osseous structures is within normal limits. No marginal erosions. SOFT TISSUES: No discrete organized fluid collection identified within the visualized soft tissues. IMPRESSION: 1. High-grade partial-thickness tearing at the origin of the common extensor tendon with moderate underlying tendinosis. 2. Small joint effusion. No intra-articular loose body. 3. No acute osseous abnormality. Interpreted by: Jay Umanzor MD Signed by: Jay Umanzor MD 08/10/20 Final result Normal [facility] 1. High-grade partial-thickness tearing at the origin of the common extensor tendon with moderate underlying tendinosis. 2. Small joint effusion. No intra-articular loose body. 3. No acute osseous abnormality. [facility] [place] EXAMINATION: MRI OF THE LEFT ELBOW WITHOUT CONTRAST, 08/10/2020 9:27 am TECHNIQUE: Multiplanar multisequence MRI of the left elbow was performed without the administration of intravenous contrast. COMPARISON: None HISTORY: ORDERING SYSTEM PROVIDED HISTORY: Left elbow pain TECHNOLOGIST PROVIDED HISTORY: Is the patient ?->No Reason for Exam: Left elbow pain , left lateral epicondilytis Acuity: Chronic Type of Exam: Initial Additional signs and symptoms: pain, tenderness past three years . Progreesively worse Relevant Medical/Surgical History: Poor FAT/SAT due to pt habitus positioning coil close to edge of bore 49-year-old female with left elbow pain and possible left lateral epicondylitis FINDINGS: MEDIAL EPICONDYLE: The common flexor origin from the medial epicondyle is normal in appearance. No evidence of tendinosis or tear to suggest medial epicondylitis. LATERAL EPICONDYLE: High-grade partial-thickness tearing at the origin of the common extensor tendon on image 9, series 6. Moderate underlying tendinosis. No subjacent marrow edema in the lateral epicondyle. MEDIAL COLLATERAL LIGAMENT: The ulnar collateral ligament, including the anterior and posterior bands, is intact and unremarkable in appearance. LATERAL COLLATERAL LIGAMENT: The lateral collateral ligaments including the lateral ulnar collateral ligament are intact and unremarkable in appearance. MUSCLES / TENDONS: The biceps and brachialis tendon insertions are normal in appearance. No evidence of tear or strain. The triceps tendon insertion on the olecranon is also unremarkable in appearance. ULNAR NERVE: The ulnar nerve is normally located in the ulnar sulcus and is unremarkable in appearance. JOINT SPACES: Small joint effusion. No intra-articular loose body. Radiohumeral and ulnohumeral joint spaces are well maintained. BONE MARROW: Osseous alignment is normal. No acute fracture or dislocation. Bone marrow signal intensity within the visualized osseous structures is within normal limits. No marginal erosions. SOFT TISSUES: No discrete organized fluid collection identified within the visualized soft tissues. [facility] [place] [place] Man[facility], [facility] Incoming Radiant Results From [facility] - 08/10/2020 2:33 PM EST EXAMINATION: MRI OF THE LEFT ELBOW WITHOUT CONTRAST, 08/10/2020 9:27 am TECHNIQUE: Multiplanar multisequence MRI of the left elbow was performed without the administration of intravenous contrast. COMPARISON: None HISTORY: ORDERING SYSTEM PROVIDED HISTORY: Left elbow pain TECHNOLOGIST PROVIDED HISTORY: Is the patient ?->No Reason for Exam: Left elbow pain , left lateral epicondilytis Acuity: Chronic Type of Exam: Initial Additional signs and symptoms: pain, tenderness past three years . Progreesively worse Relevant Medical/Surgical History: Poor FAT/SAT due to pt habitus positioning coil close to edge of bore 49-year-old female with left elbow pain and possible left lateral epicondylitis FINDINGS: MEDIAL EPICONDYLE: The common flexor origin from the medial epicondyle is normal in appearance. No evidence of tendinosis or tear to suggest medial epicondylitis. LATERAL EPICONDYLE: High-grade partial-thickness tearing at the origin of the common extensor tendon on image 9, series 6. Moderate underlying tendinosis. No subjacent marrow edema in the lateral epicondyle. MEDIAL COLLATERAL LIGAMENT: The ulnar collateral ligament, including the anterior and posterior bands, is intact and unremarkable in appearance. LATERAL COLLATERAL LIGAMENT: The lateral collateral ligaments including the lateral ulnar collateral ligament are intact and unremarkable in appearance. MUSCLES / TENDONS: The biceps and brachialis tendon insertions are normal in appearance. No evidence of tear or strain. The triceps tendon insertion on the olecranon is also unremarkable in appearance. ULNAR NERVE: The ulnar nerve is normally located in the ulnar sulcus and is unremarkable in appearance. JOINT SPACES: Small joint effusion. No intra-articular loose body. Radiohumeral and ulnohumeral joint spaces are well maintained. BONE MARROW: Osseous alignment is normal. No acute fracture or dislocation. Bone marrow signal intensity within the visualized osseous structures is within normal limits. No marginal erosions. SOFT TISSUES: No discrete organized fluid collection identified within the visualized soft tissues. IMPRESSION: 1. High-grade partial-thickness tearing at the origin of the common extensor tendon with moderate underlying tendinosis. 2. Small joint effusion. No intra-articular loose body. 3. No acute osseous abnormality. [place], [place] Vital Signs Date Time Vital Sign Value Performing Clinician Denise pena 04-16-2023 13:10-0400 Body height 159.38 cm Kera Mccall Other [facility] Other 04-16-2023 13:10-0400 Body mass index (BMI) [Ratio] 48.06 kg/m2 Kera Mccall Other [facility] Other 04-16-2023 13:10-0400 Body temperature 97.8 [degF] Kera Mccall Other [facility] Other 04-16-2023 13:10-0400 Body weight 122.11 kg Kera Mccall Other [facility] Other 04-16-2023 13:10-0400 Respiratory rate 18 /min Kera Mccall Other [facility] Other 04-16-2023 13:10-0400 SaO2% (BldA) [Mass fraction] 96 % Kera Mccall Other [facility] Other 02-02-2023 10:00-0400 Body height 159.38 cm Clive Marino Other [facility] Other 02-02-2023 10:00-0400 Body mass index (BMI) [Ratio] 48.06 kg/m2 Clive Marino Other [facility] Other 02-02-2023 10:00-0400 Body weight 122.11 kg Clive Marino Other [facility] Other 02-02-2023 10:00-0400 Diastolic blood pressure 73 mm[Hg] Clive Marino Other [facility] Other 02-02-2023 10:00-0400 Respiratory rate 18 /min Clive Marino Other [facility] Other 02-02-2023 10:00-0400 SaO2% (BldA) [Mass fraction] 98 % Clive Marino Other [facility] Other 02-02-2023 10:00-0400 Systolic blood pressure 98 mm[Hg] Clive Marino Other [facility] Other 12-23-2022 15:00-0400 Body height 159.38 cm Gurmeet Honorio Other [facility] Other 12-23-2022 15:00-0400 Body mass index (BMI) [Ratio] 48.03 kg/m2 Jerryer Honorio Other [facility] Other 12-23-2022 15:00-0400 Body weight 122.02 kg Mohittonyer Honorio Other [facility] Other 12-23-2022 15:00-0400 Diastolic blood pressure 84 mm[Hg] Gurmeet Honorio Other [facility] Other 12-23-2022 15:00-0400 SaO2% (BldA) [Mass fraction] 100 % Gurmeet Honorio Other [facility] Other 12-23-2022 15:00-0400 Systolic blood pressure 127 mm[Hg] Gurmeet Honorio Other [facility] Other 12-14-2022 10:30-0400 Body height 159.38 cm Danya Carty Other [facility] Other 12-14-2022 10:30-0400 Body mass index (BMI) [Ratio] 48.04 kg/m2 Danyaher Helmler Other [facility] Other 12-14-2022 10:30-0400 Body weight 122.06 kg Danyaher Helmler Other [facility] Other 12-14-2022 10:30-0400 Diastolic blood pressure 82 mm[Hg] Danya Missler Other [facility] Other 12-14-2022 10:30-0400 Respiratory rate 18 /min Danya Missler Other [facility] Other 12-14-2022 10:30-0400 SaO2% (BldA) [Mass fraction] 97 % Danya Missler Other [facility] Other 12-14-2022 10:30-0400 Systolic blood pressure 124 mm[Hg] Danya Missler Other [facility] Other 12-01-2022 14:00-0400 Body height 159.38 cm Serene Fitt Other [facility] Other 12-01-2022 14:00-0400 Body mass index (BMI) [Ratio] 46.96 kg/m2 Serene Fitt Other [facility] Other 12-01-2022 14:00-0400 Body weight 119.3 kg Serene Fitt Other [facility] Other 11-07-2022 11:00-0500 Body height 159.38 cm Ellie Torres Other [facility] Other 11-07-2022 11:00-0500 Body mass index (BMI) [Ratio] 46.17 kg/m2 Ellie Torres Other [facility] Other 11-07-2022 11:00-0500 Body weight 117.3 kg Ellie Torres Other [facility] Other 11-07-2022 11:00-0500 Diastolic blood pressure 74 mm[Hg] Ellie Torres Other [facility] Other 11-07-2022 11:00-0500 Respiratory rate 18 /min Ellie Torres Other [facility] Other 11-07-2022 11:00-0500 SaO2% (BldA) [Mass fraction] 99 % Ellie Torres Other [facility] Other 11-07-2022 11:00-0500 Systolic blood pressure 123 mm[Hg] Ellie Torres Other [facility] Other 11-03-2022 14:00-0500 Body height 159.38 cm Susana Arrietamond Other [facility] Other 11-03-2022 14:00-0500 Body mass index (BMI) [Ratio] 46.74 kg/m2 Susana Arrietamond Other [facility] Other 11-03-2022 14:00-0500 Body temperature 97.8 [degF] Susana Arrietamond Other [facility] Other 11-03-2022 14:00-0500 Body weight 118.75 kg Susana Arrietamond Other [facility] Other 11-03-2022 14:00-0500 Diastolic blood pressure 72 mm[Hg] Susana Arrietamond Other [facility] Other 11-03-2022 14:00-0500 Respiratory rate 8 /min Suasna Rhonda Other [facility] Other 11-03-2022 14:00-0500 SaO2% (BldA) [Mass fraction] 98 % Susana Ellis Other [facility] Other 11-03-2022 14:00-0500 Systolic blood pressure 122 mm[Hg] Susana Ellis Other [facility] Other 10-30-2022 11:15-0500 Body height 159.38 cm Danya Missler Other [facility] Other 10-30-2022 11:15-0500 Body mass index (BMI) [Ratio] 46.76 kg/m2 Danya Missler Other [facility] Other 10-30-2022 11:15-0500 Body weight 118.8 kg Danya Missler Other [facility] Other 10-30-2022 11:15-0500 Diastolic blood pressure 70 mm[Hg] Danya Missler Other [facility] Other 10-30-2022 11:15-0500 Respiratory rate 18 /min Danya Missler Other [facility] Other 10-30-2022 11:15-0500 SaO2% (BldA) [Mass fraction] 99 % Danya Missler Other [facility] Other 10-30-2022 11:15-0500 Systolic blood pressure 124 mm[Hg] Danya Missler Other [facility] Other 10-29-2022 11:00-0500 Body height 159.38 cm Ellie Torres Other [facility] Other 10-29-2022 11:00-0500 Body mass index (BMI) [Ratio] 46.46 kg/m2 Ellie Torres Other [facility] Other 10-29-2022 11:00-0500 Body temperature 99.8 [degF] Ellie Torres Other [facility] Other 10-29-2022 11:00-0500 Body weight 118.03 kg Ellie Torres Other [facility] Other 10-29-2022 11:00-0500 Diastolic blood pressure 80 mm[Hg] Ellie Torres Other [facility] Other 10-29-2022 11:00-0500 Respiratory rate 18 /min Ellie Torres Other [facility] Other 10-29-2022 11:00-0500 SaO2% (BldA) [Mass fraction] 98 % Ellie Torres Other [facility] Other 10-29-2022 11:00-0500 Systolic blood pressure 120 mm[Hg] Ellie Torres Other [facility] Other 10-08-2022 20:24-0500 Diastolic blood pressure 63 mm[Hg] [facility] 10-08-2022 20:24-0500 Heart rate 96 /min [facility] 10-08-2022 20:24-0500 Respiratory rate 18 /min [facility] 10-08-2022 20:24-0500 SaO2% (BldA) [Mass fraction] 98 % [facility] 10-08-2022 20:24-0500 Systolic blood pressure 135 mm[Hg] [facility] 10-08-2022 16:01-0500 Body height 157.48 cm [facility] 10-08-2022 16:01-0500 Body temperature 98.1 [degF] [facility] 10-08-2022 16:01-0500 Body weight 116 kg [facility] 10-06-2022 12:15-0500 Body height 159.38 cm Serene Joshblayne Other [facility] Other 10-01-2022 11:00-0500 Body height 159.38 cm Ellie Juan Jose Other [facility] Other 10-01-2022 11:00-0500 Body mass index (BMI) [Ratio] 45.71 kg/m2 Ellie Juan Jose Other [facility] Other 10-01-2022 11:00-0500 Body temperature 98.3 [degF] Ellie Juan Jose Other [facility] Other 10-01-2022 11:00-0500 Body weight 116.12 kg Ellie Juan Jose Other [facility] Other 10-01-2022 11:00-0500 Respiratory rate 18 /min Ellie Juan Jose Other [facility] Other 10-01-2022 11:00-0500 SaO2% (BldA) [Mass fraction] 99 % Ellie Juan Jose Other [facility] Other 09-30-2022 08:30-0500 Body height 159.38 cm Danya Carty Other [facility] Other 09-30-2022 08:30-0500 Body mass index (BMI) [Ratio] 45.72 kg/m2 Danya Missler Other [facility] Other 09-30-2022 08:30-0500 Body weight 116.17 kg Danya Missler Other [facility] Other 09-30-2022 08:30-0500 Diastolic blood pressure 81 mm[Hg] Danya Missler Other [facility] Other 09-30-2022 08:30-0500 Respiratory rate 18 /min Danya Missler Other [facility] Other 09-30-2022 08:30-0500 SaO2% (BldA) [Mass fraction] 98 % Danya Missler Other [facility] Other 09-30-2022 08:30-0500 Systolic blood pressure 123 mm[Hg] Danya Missler Other [facility] Other 09-20-2022 11:15-0500 Body height 162.56 cm Susana Arrietamond Other [facility] Other 09-20-2022 11:15-0500 Body mass index (BMI) [Ratio] 43.59 kg/m2 Susana Rhonda Other [facility] Other 09-20-2022 11:15-0500 Body temperature 97.7 [degF] Susana Rhonda Other [facility] Other 09-20-2022 11:15-0500 Body weight 115.21 kg Susana Rhonda Other [facility] Other 09-20-2022 11:15-0500 Diastolic blood pressure 75 mm[Hg] Susana Ellis Other [facility] Other 09-20-2022 11:15-0500 Respiratory rate 18 /min Susana Ellis Other [facility] Other 09-20-2022 11:15-0500 SaO2% (BldA) [Mass fraction] 98 % Susana Ellis Other [facility] Other 09-20-2022 11:15-0500 Systolic blood pressure 118 mm[Hg] Susana Ellis Other [facility] Other 09-14-2022 18:00-0500 Body height 162.56 cm Ellie Binghamault Other [facility] Other 09-14-2022 18:00-0500 Body mass index (BMI) [Ratio] 43.59 kg/m2 Ellie Juan Jose Other [facility] Other 09-14-2022 18:00-0500 Body temperature 97.1 [degF] Ellie Juan Jose Other [facility] Other 09-14-2022 18:00-0500 Body weight 115.21 kg Ellie Juan Jose Other [facility] Other 09-14-2022 18:00-0500 Diastolic blood pressure 94 mm[Hg] Ellie Juan Jose Other [facility] Other 09-14-2022 18:00-0500 Respiratory rate 18 /min Ellie Juan Jose Other [facility] Other 09-14-2022 18:00-0500 SaO2% (BldA) [Mass fraction] 100 % Ellie Juan Jose Other [facility] Other 09-14-2022 18:00-0500 Systolic blood pressure 157 mm[Hg] Ellie Juan Jose Other [facility] Other 09-10-2022 20:30-0500 Diastolic blood pressure 72 mm[Hg] [facility] 09-10-2022 20:30-0500 Heart rate 95 /min [facility] 09-10-2022 20:30-0500 Respiratory rate 18 /min [facility] 09-10-2022 20:30-0500 SaO2% (BldA) [Mass fraction] 99 % [facility] 09-10-2022 20:30-0500 Systolic blood pressure 156 mm[Hg] [facility] 09-10-2022 15:46-0500 Body height 165.1 cm [facility] 09-10-2022 15:46-0500 Body temperature 99 [degF] [facility] 09-10-2022 15:46-0500 Body weight 115.85 kg [facility] 09-10-2022 15:00-0500 Body height 162.56 cm Ellie Torres Other [facility] Other 09-10-2022 15:00-0500 Body mass index (BMI) [Ratio] 43.94 kg/m2 Ellie Juan Jose Other [facility] Other 09-10-2022 15:00-0500 Body temperature 98.2 [degF] Ellie Torres Other [facility] Other 09-10-2022 15:00-0500 Body weight 116.12 kg Ellie Torres Other [facility] Other 09-10-2022 15:00-0500 SaO2% (BldA) [Mass fraction] 98 % Ellie Torres Other [facility] Other 08-27-2022 15:00-0500 Body height 162.56 cm Ellie Torres Other [facility] Other 08-27-2022 15:00-0500 Body mass index (BMI) [Ratio] 43.59 kg/m2 Ellie Torres Other [facility] Other 08-27-2022 15:00-0500 Body temperature 97.8 [degF] Ellie Torres Other [facility] Other 08-27-2022 15:00-0500 Body weight 115.21 kg Ellie Torres Other [facility] Other 08-27-2022 15:00-0500 Diastolic blood pressure 64 mm[Hg] Ellie Binghamault Other [facility] Other 08-27-2022 15:00-0500 Respiratory rate 18 /min Ellie Binghamault Other [facility] Other 08-27-2022 15:00-0500 SaO2% (BldA) [Mass fraction] 99 % Ellie Binghamault Other [facility] Other 08-27-2022 15:00-0500 Systolic blood pressure 107 mm[Hg] Ellie Binghamault Other [facility] Other 07-30-2022 12:00-0500 Body height 162.56 cm Ellie Torres Other [facility] Other 07-30-2022 12:00-0500 Body mass index (BMI) [Ratio] 43.25 kg/m2 Ellie Torres Other [facility] Other 07-30-2022 12:00-0500 Body temperature 97.6 [degF] Ellie Torres Other [facility] Other 07-30-2022 12:00-0500 Body weight 114.31 kg Ellie Torres Other [facility] Other 07-30-2022 12:00-0500 Diastolic blood pressure 72 mm[Hg] Ellie Binghamault Other [facility] Other 07-30-2022 12:00-0500 Respiratory rate 18 /min Ellie Torres Other [facility] Other 07-30-2022 12:00-0500 SaO2% (BldA) [Mass fraction] 100 % Ellie Torres Other [facility] Other 07-30-2022 12:00-0500 Systolic blood pressure 135 mm[Hg] Ellie Binghamault Other [facility] Other 07-20-2022 12:05-0500 Body height 162.56 cm Ellie Binghamault Other [facility] Other 07-20-2022 12:05-0500 Body mass index (BMI) [Ratio] 42.56 kg/m2 Ellie Binghamault Other [facility] Other 07-20-2022 12:05-0500 Body temperature 97.8 [degF] Ellie Torres Other [facility] Other 07-20-2022 12:05-0500 Body weight 112.49 kg Ellie Torres Other [facility] Other 07-20-2022 12:05-0500 Diastolic blood pressure 71 mm[Hg] Ellie Torres Other [facility] Other 07-20-2022 12:05-0500 Respiratory rate 18 /min Ellie Torres Other [facility] Other 07-20-2022 12:05-0500 SaO2% (BldA) [Mass fraction] 99 % Ellie Torres Other [facility] Other 07-20-2022 12:05-0500 Systolic blood pressure 137 mm[Hg] Ellie Torres Other [facility] Other 07-02-2022 12:30-0400 Body height 162.56 cm Elile Binghamault Other [facility] Other 07-02-2022 12:30-0400 Body mass index (BMI) [Ratio] 42.56 kg/m2 Ellie Binghamault Other [facility] Other 07-02-2022 12:30-0400 Body temperature 98 [degF] Ellie Binghamault Other [facility] Other 07-02-2022 12:30-0400 Body weight 112.49 kg Ellie Torres Other [facility] Other 07-02-2022 12:30-0400 Diastolic blood pressure 84 mm[Hg] Ellie Torres Other [facility] Other 07-02-2022 12:30-0400 Respiratory rate 18 /min Ellie Torres Other [facility] Other 07-02-2022 12:30-0400 SaO2% (BldA) [Mass fraction] 100 % Ellie Torres Other [facility] Other 07-02-2022 12:30-0400 Systolic blood pressure 129 mm[Hg] Ellie Torres Other [facility] Other 06-29-2022 11:15-0400 Body height 162.56 cm Pop Blandon Other [facility] Other 06-29-2022 11:15-0400 Body mass index (BMI) [Ratio] 41.19 kg/m2 Pop Blandon Other [facility] Other 06-29-2022 11:15-0400 Body weight 108.86 kg Pop Blandon Other [facility] Other 06-25-2022 17:30-0400 Body height 162.56 cm Ellie Torres Other [facility] Other 06-25-2022 17:30-0400 Body mass index (BMI) [Ratio] 41.19 kg/m2 Ellie Binghamault Other [facility] Other 06-25-2022 17:30-0400 Body temperature 97.7 [degF] Ellie Torres Other [facility] Other 06-25-2022 17:30-0400 Body weight 108.86 kg Ellie Torres Other [facility] Other 06-25-2022 17:30-0400 Diastolic blood pressure 88 mm[Hg] Ellie Torres Other [facility] Other 06-25-2022 17:30-0400 Respiratory rate 18 /min Ellie Torres Other [facility] Other 06-25-2022 17:30-0400 SaO2% (BldA) [Mass fraction] 99 % Ellie Torres Other [facility] Other 06-25-2022 17:30-0400 Systolic blood pressure 135 mm[Hg] Ellie Torres Other [facility] Other 05-25-2022 18:00-0400 Body height 162.56 cm Ellie Torres Other [facility] Other 05-25-2022 18:00-0400 Body mass index (BMI) [Ratio] 42.84 kg/m2 Ellie Torres Other [facility] Other 05-25-2022 18:00-0400 Body temperature 97.9 [degF] Ellie Torres Other [facility] Other 05-25-2022 18:00-0400 Body weight 113.22 kg Ellie Torres Other [facility] Other 05-25-2022 18:00-0400 Diastolic blood pressure 68 mm[Hg] Ellie Torres Other [facility] Other 05-25-2022 18:00-0400 Respiratory rate 18 /min Ellie Torres Other [facility] Other 05-25-2022 18:00-0400 SaO2% (BldA) [Mass fraction] 98 % Ellie Torres Other [facility] Other 05-25-2022 18:00-0400 Systolic blood pressure 120 mm[Hg] Ellie Torres Other [facility] Other 05-21-2022 12:30-0400 Body height 162.56 cm Ellie Torres Other [facility] Other 05-21-2022 12:30-0400 Body mass index (BMI) [Ratio] 43.29 kg/m2 Ellie Torres Other [facility] Other 05-21-2022 12:30-0400 Body temperature 98 [degF] Ellie Torres Other [facility] Other 05-21-2022 12:30-0400 Body weight 114.4 kg Ellie Torres Other [facility] Other 05-21-2022 12:30-0400 Diastolic blood pressure 63 mm[Hg] Ellie Torres Other [facility] Other 05-21-2022 12:30-0400 Respiratory rate 18 /min Ellie Binghamault Other [facility] Other 05-21-2022 12:30-0400 SaO2% (BldA) [Mass fraction] 100 % Ellie Torres Other [facility] Other 05-21-2022 12:30-0400 Systolic blood pressure 103 mm[Hg] Ellie Binghamault Other [facility] Other 04-27-2022 12:30-0400 Body height 162.56 cm Ellie Torres Other [facility] Other 04-27-2022 12:30-0400 Body mass index (BMI) [Ratio] 43.59 kg/m2 Ellie Torres Other [facility] Other 04-27-2022 12:30-0400 Body temperature 98.6 [degF] Ellie Binghamault Other [facility] Other 04-27-2022 12:30-0400 Body weight 115.21 kg Ellie Torres Other [facility] Other 04-27-2022 12:30-0400 Diastolic blood pressure 81 mm[Hg] Ellie Binghamault Other [facility] Other 04-27-2022 12:30-0400 Respiratory rate 18 /min Ellie Binghamault Other [facility] Other 04-27-2022 12:30-0400 SaO2% (BldA) [Mass fraction] 98 % Ellie Binghamault Other [facility] Other 04-27-2022 12:30-0400 Systolic blood pressure 130 mm[Hg] Ellie Torres Other [facility] Other 04-06-2022 11:00-0400 Body height 162.56 cm Ellie Torres Other [facility] Other 04-06-2022 11:00-0400 Body mass index (BMI) [Ratio] 43.63 kg/m2 Ellie Torres Other [facility] Other 04-06-2022 11:00-0400 Body temperature 98.5 [degF] Ellie Torres Other [facility] Other 04-06-2022 11:00-0400 Body weight 115.31 kg Ellie Binghamault Other [facility] Other 04-06-2022 11:00-0400 Diastolic blood pressure 66 mm[Hg] Ellie Torres Other [facility] Other 04-06-2022 11:00-0400 Respiratory rate 18 /min Ellie Torres Other [facility] Other 04-06-2022 11:00-0400 SaO2% (BldA) [Mass fraction] 98 % Ellie Binghamault Other [facility] Other 04-06-2022 11:00-0400 Systolic blood pressure 131 mm[Hg] Ellie Binghamault Other [facility] Other 03-03-2022 12:05-0400 Body height 162.56 cm Ellie Binghamault Other [facility] Other 03-03-2022 12:05-0400 Body mass index (BMI) [Ratio] 41.19 kg/m2 Ellie Torres Other [facility] Other 03-03-2022 12:05-0400 Body temperature 98 [degF] Ellie Torres Other [facility] Other 03-03-2022 12:05-0400 Body weight 108.86 kg Ellie Torres Other [facility] Other 03-03-2022 12:05-0400 Diastolic blood pressure 72 mm[Hg] Ellie Torres Other [facility] Other 03-03-2022 12:05-0400 Respiratory rate 18 /min Ellie Torres Other [facility] Other 03-03-2022 12:05-0400 SaO2% (BldA) [Mass fraction] 100 % Ellie Torres Other [facility] Other 03-03-2022 12:05-0400 Systolic blood pressure 116 mm[Hg] Ellie Torres Other [facility] Other 11-13-2021 16:45-0400 Body height 162.56 cm Pop Blandon Other [facility] Other 11-13-2021 16:45-0400 Body mass index (BMI) [Ratio] 42.91 kg/m2 Pop Blandon Other [facility] Other 11-13-2021 16:45-0400 Body weight 113.4 kg Pop Blandon Other [facility] Other 11-06-2021 14:20-0500 Body height 162.56 cm Ellie Torres Other [facility] Other 11-06-2021 14:20-0500 Body mass index (BMI) [Ratio] 43.08 kg/m2 Ellie Torres Other [facility] Other 11-06-2021 14:20-0500 Body temperature 97.7 [degF] Ellie Torres Other [facility] Other 11-06-2021 14:20-0500 Body weight 113.85 kg Ellie Torres Other [facility] Other 11-06-2021 14:20-0500 Diastolic blood pressure 70 mm[Hg] Ellie Torres Other [facility] Other 11-06-2021 14:20-0500 Respiratory rate 18 /min Ellie Torres Other [facility] Other 11-06-2021 14:20-0500 SaO2% (BldA) [Mass fraction] 99 % Ellie Torres Other [facility] Other 11-06-2021 14:20-0500 Systolic blood pressure 143 mm[Hg] Ellie Torres Other [facility] Other 09-29-2021 09:15-0500 Body height 162.56 cm Pop Blandon Other [facility] Other 08-11-2021 16:30-0500 Body height 162.56 cm Edie Singh Other [facility] Other 08-11-2021 16:30-0500 Body mass index (BMI) [Ratio] 43.08 kg/m2 Edie Singh Other [facility] Other 08-11-2021 16:30-0500 Body weight 113.85 kg Edie Singh Other [facility] Other 08-11-2021 16:30-0500 Diastolic blood pressure 88 mm[Hg] Edie Singh Other [facility] Other 08-11-2021 16:30-0500 Respiratory rate 18 /min Edie Singh Other [facility] Other 08-11-2021 16:30-0500 SaO2% (BldA) [Mass fraction] 99 % Edie Singh Other [facility] Other 08-11-2021 16:30-0500 Systolic blood pressure 130 mm[Hg] Edie Singh Other [facility] Other 06-12-2021 15:45-0400 Body height 162.56 cm Edie Singh Other [facility] Other 06-12-2021 15:45-0400 Body mass index (BMI) [Ratio] 42.84 kg/m2 Edie Singh Other [facility] Other 06-12-2021 15:45-0400 Body temperature 98.1 [degF] Edie Singh Other [facility] Other 06-12-2021 15:45-0400 Body weight 113.22 kg Edie Singh Other [facility] Other 06-12-2021 15:45-0400 Diastolic blood pressure 82 mm[Hg] Edie Artemio Other [facility] Other 06-12-2021 15:45-0400 Respiratory rate 18 /min Edie Artemio Other [facility] Other 06-12-2021 15:45-0400 SaO2% (BldA) [Mass fraction] 99 % Edie Artemio Other [facility] Other 06-12-2021 15:45-0400 Systolic blood pressure 132 mm[Hg] Edie Artemio Other [facility] Other Encounters Encounter Date Encounter Type Care Provider Facility Start: 06-18-2023 End: 06-18-2023 ambulatory Gurmeet Palacios Facility:[facility] Start: 06-18-2023 End: 06-18-2023 ambulatory PROGRAM ARRANGER-C Ellie Juan Jose [facility] Work Phone: Start: 06-18-2023 End: 06-18-2023 Patient encounter procedure PROGRAM ARRANGER-C Ellie Torres [facility]MRI [place] Work Phone: Start: 04-16-2023 End: 04-16-2023 ambulatory Kera Mccall Other [facility] Other Start: 04-16-2023 Office outpatient visit 25 minutes Kera Mccall [facility] Start: 02-24-2023 End: 02-24-2023 ambulatory Gurmeet Olmedo Facility:[facility] Start: 02-24-2023 End: 02-24-2023 ambulatory PROGRAM ARRANGER-C Ellie Torres Work Phone: [facility] Work Phone: Start: 02-24-2023 End: 02-24-2023 Patient encounter procedure PROGRAM ARRANGER-C Ellie Torres Work Phone: [facility]-Sleep Lab Work Phone: Start: 02-02-2023 Follow-up encounter Clive Jamila [facility] Start: 02-02-2023 Telephone encounter Clive Jamila [facility] Start: 02-02-2023 End: 02-03-2023 ambulatory Ellie Torres [facility] Other Start: 02-02-2023 Registered Recurring PROGRAM ARRANGER-C Librado bowiehal Torres Work Phone: [facility]-Weight Management Work Phone: Start: 12-23-2022 Office outpatient ne w 30 minutes Gurmeet Olmedo [facility] Start: 12-23-2022 End: 12-23-2022 ambulatory PROGRAM ARRANGER-C Ellie Torres Work Phone: [facility] Work Phone: Start: 12-23-2022 End: 12-23-2022 Patient encounter procedure PROGRAM ARRANGER-C Ellie Torres Work Phone: [facility]-Sleep Lab Work Phone: Start: 12-16-2022 End: 12-16-2022 ambulatory Serene Bustos Other [facility] Other Start: 12-16-2022 IBT for Obesity subQ 15 min (Max charge 2 units) Serene Bustos [facility] Start: 12-16-2022 Registered Recurring PROGRAM ARRANGER-C Librado salcedo Juan Jose Work Phone: [facility]Weight [facility] Work Phone: Start: 12-14-2022 (FCCCWMNF/U) Weight Management f/u Danya Carty [facility] Start: 12-14-2022 End: 12-14-2022 ambulatory Danya Carty Other [facility] Other Start: 12-14-2022 Telephone encounter Danya Carty [facility] Start: 12-01-2022 ([facility]) [facility] Initial Provider Serene Bustos [facility] Start: 12-01-2022 End: 12-02-2022 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 [facility] Other Start: 11-07-2022 Office outpatient visit 15 minutes Ellie Torres [facility] Start: 11-07-2022 End: 11-07-2022 ambulatory Ellie Torres Facility:[facility] Start: 11-07-2022 End: 11-07-2022 ambulatory NON STAFF [facility] Work Phone: Start: 11-07-2022 End: 11-07-2022 Patient encounter procedure [facility] Work Phone: Start: 11-03-2022 End: 11-03-2022 ambulatory Susana Ellis Facility:[facility] Start: 11-03-2022 End: 11-03-2022 Patient encounter procedure [facility] Work Phone: Start: 11-03-2022 End: 11-03-2022 ambulatory NON STAFF [facility] Work Phone: Start: 11-03-2022 Office outpatient visit 15 minutes Susana Ellis [facility] Start: 10-30-2022 ([facility] Start: 10-30-2022 End: 10-30-2022 ambulatory Danya Carty Other [facility] Other Start: 10-30-2022 Registered Recurring [facility] Work Phone: Start: 10-29-2022 End: 10-29-2022 ambulatory Ellie Torres Other [facility] Other Start: 10-29-2022 Office outpatient visit 15 minutes Ellie Torres [facility] Start: 10-08-2022 End: 10-08-2022 Emergency department patient visit Ellie Torres Facility:[facility] Start: 10-08-2022 End: 10-08-2022 Emergency department patient visit [facility]Emergency [facility] Work Phone: Start: 10-06-2022 End: 10-06-2022 ambulatory Serene Bustos Other [facility] Other Start: 10-06-2022 IBT FOR OBESITY GROU P 2-10 30M Serene Bustos [facility] Start: 10-06-2022 Registered Recurring [facility] Work Phone: Start: 10-01-2022 End: 10-01-2022 ambulatory Ellie Torres Facility:[facility] Start: 10-01-2022 Office outpatient visit 15 minutes Ellie Torres [facility] Start: 10-01-2022 End: 10-01-2022 ambulatory NON STAFF [facility] Work Phone: Start: 10-01-2022 End: 10-01-2022 Patient encounter procedure [facility] Work Phone: Start: 09-30-2022 End: 09-30-2022 ambulatory Danya byron Other [facility] Other Start: 09-30-2022 Nutrition therapy Danya Carty [facility] Start: 09-30-2022 Registered Recurring [facility] Work Phone: Start: 09-25-2022 End: 09-25-2022 ambulatory Elliedavid Torres Other [facility] Other Start: 09-25-2022 Telephone encounter Elliedavid Gerberl t [facility] Start: 09-23-2022 End: 09-23-2022 ambulatory Elliedavid Torres Other [facility] Other Start: 09-23-2022 Telephone encounter Elliedavid Gerberl t [facility] Start: 09-21-2022 End: 09-22-2022 ambulatory ELLIE JUAN JOSE Facility: Start: 09-20-2022 End: 09-20-2022 ambulatory Susana Rhonda Other [facility] Other Start: 09-20-2022 Office outpatient visit 15 minutes Susana Rhonda [facility] Start: 09-14-2022 End: 09-14-2022 ambulatory Elliedavid Torres Other [facility] Other Start: 09-14-2022 Office outpatient visit 15 minutes Ellie Juan Jose [facility] Start: 09-10-2022 End: 09-10-2022 Emergency department patient visit NON STAFF Facility:[facility] Start: 09-10-2022 End: 09-10-2022 Emergency department patient visit [facility] Work Phone: Start: 09-10-2022 End: 09-10-2022 ambulatory Elliedavid Torres Other [facility] Other Start: 09-10-2022 Patient encounter procedure Ellie Juan Jose [facility] Start: 09-07-2022 End: 09-07-2022 ambulatory Ellie Juan Jose Other [facility] Other Start: 09-07-2022 Telephone encounter Ellie Breaul t [facility] Start: 08-27-2022 End: 08-27-2022 ambulatory Elliedavid oTrres Other [facility] Other Start: 08-27-2022 Office outpatient visit 15 minutes Elliedavid Torres [facility] Start: 08-17-2022 End: 08-17-2022 ambulatory Elliedavid Torres Other [facility] Other Start: 08-17-2022 Telephone encounter Ellie Otiliaaul t [facility] Start: 07-30-2022 End: 07-30-2022 ambulatory Elliedavid Torres Other [facility] Other Start: 07-30-2022 Office outpatient visit 15 minutes Ellie Juan Jose [facility] Start: 07-20-2022 End: 07-20-2022 ambulatory Elliedavid Torres Other [facility] Other Start: 07-20-2022 Office outpatient visit 15 minutes Elliedavid Torres [facility] Start: 07-10-2022 End: 07-10-2022 ambulatory Elliedavid Torres Other [facility] Other Start: 07-10-2022 Telephone encounter Elliedavid Gerberl t [facility] Start: 07-02-2022 End: 07-02-2022 ambulatory Elliedavid Torres Other [facility] Other Start: 07-02-2022 Office outpatient visit 15 minutes Ellie Juan Jose [facility] Start: 06-30-2022 End: 06-30-2022 ambulatory Ellienancy Torres Other [facility] Other Start: 06-30-2022 Telephone encounter Ellie Breaul t [facility] Start: 06-29-2022 End: 06-29-2022 ambulatory Pop Blandon Other [facility] Other Start: 06-29-2022 Office outpatient visit 15 minutes Pop Blandon [facility] Start: 06-25-2022 End: 06-25-2022 ambulatory Ellie Juan Jose Other [facility] Other Start: 06-25-2022 Office outpatient visit 15 minutes Ellienancy Torres [facility] Start: 06-22-2022 (Procedure) Kat Blandon [facility] Start: 06-22-2022 End: 06-22-2022 ambulatory Pop Blandon Other [facility] Other Start: 06-11-2022 End: 06-11-2022 ambulatory Ellienancy Torres Other [facility] Other Start: 06-11-2022 Telephone encounter Ellie Gerberl t [facility] Start: 06-05-2022 End: 06-06-2022 ambulatory ELLIE JUAN JOSE Facility: Start: 06-01-2022 (Procedure) Kat Blandon [facility] Start: 06-01-2022 End: 06-01-2022 ambulatory Pop Blandon Other [facility] Other Start: 05-25-2022 End: 05-25-2022 ambulatory Ellie Juan Jose Other [facility] Other Start: 05-25-2022 Office outpatient visit 25 minutes Ellie Juan Jose [facility] Start: 05-21-2022 End: 05-21-2022 ambulatory Ellie Juan Jose Other [facility] Other Start: 05-21-2022 Office outpatient visit 15 minutes Ellie Juan Jose [facility] Start: 05-08-2022 End: 05-08-2022 ambulatory Ellie Juan Jose Other [facility] Other Start: 05-08-2022 Telephone encounter Ellie cisneros [facility] Start: 04-27-2022 End: 04-27-2022 ambulatory Ellie Torres Other [facility] Other Start: 04-27-2022 Office outpatient visit 15 minutes Elliedavid Torres [facility] Start: 04-22-2022 End: 04-22-2022 ambulatory Pop Blandon Other [facility] Other Start: 04-22-2022 Office outpatient visit 25 minutes Pop Blandon [facility] Start: 04-16-2022 End: 04-16-2022 ambulatory Pop Blandon Other [facility] Other Start: 04-16-2022 Telephone encounter Pop Blandon [facility] Start: 04-13-2022 (Procedure) Short Pop Blandon [facility] Start: 04-13-2022 End: 04-13-2022 ambulatory Pop Blandon Other [facility] Other Start: 04-06-2022 Office outpatient visit 15 minutes Ellie Torres [facility] Start: 04-06-2022 End: 04-07-2022 ambulatory ELLIE JUAN JOSE [facility] Other Start: 03-03-2022 End: 03-03-2022 ambulatory Ellie Torres Other [facility] Other Start: 03-03-2022 Office outpatient visit 15 minutes Ellie Torres [facility] Start: 01-28-2022 End: 01-28-2022 ambulatory Pop Blandon Other [facility] Other Start: 01-28-2022 Telephone encounter Pop FISH [facility] Start: 01-21-2022 End: 01-21-2022 ambulatory Pop Blandon Other [facility] Other Start: 01-21-2022 Telephone encounter Pop FISH G [facility] Start: 01-15-2022 End: 01-15-2022 ambulatory Pop Blandon Other [facility] Other Start: 01-15-2022 Office outpatient visit 25 minutes Pop Arceer [facility] Start: 12-11-2021 End: 12-11-2021 ambulatory Pop Arceer Other [facility] Other Start: 12-11-2021 Office outpatient visit 25 minutes Pop Blandon [facility] Start: 12-03-2021 (Procedure) Short Pop Blandon [facility] Start: 12-03-2021 End: 12-03-2021 ambulatory Pop Blandon Other [facility] Other Start: 11-14-2021 End: 11-14-2021 ambulatory Pop Blandon Other [facility] Other Start: 11-14-2021 Telephone encounter Pop FISH G [facility] Start: 11-13-2021 End: 11-13-2021 ambulatory Pop Arceer Other [facility] Other Start: 11-13-2021 Office outpatient visit 25 minutes Pop Arceer [facility] Start: 11-06-2021 End: 11-06-2021 ambulatory Ellie Torres Other [facility] Other Start: 11-06-2021 Office outpatient visit 15 minutes Ellie Torres [facility] Start: 11-06-2021 Telephone encounter Edie [facility] Start: 10-29-2021 End: 10-29-2021 ambulatory Pop Arceshady Other [facility] Other Start: 10-29-2021 Telephone encounter Pop Blandon [facility] Start: 09-29-2021 End: 09-29-2021 ambulatory Pop Blandon Other [facility] Other Start: 09-29-2021 Office outpatient visit 25 minutes [facility] [place] Start: 09-25-2021 End: 09-25-2021 ambulatory Edie Singh Other [facility] Other Start: 09-25-2021 Telephone encounter Edie Lewis [facility] [place] Start: 08-19-2021 End: 08-19-2021 ambulatory Edie Singh Other [facility] Other Start: 08-19-2021 Telephone encounter Edie Lewis [facility] [place] Start: 08-11-2021 End: 08-11-2021 ambulatory Edie Singh Other [facility] Other Start: 08-11-2021 Office outpatient visit 15 minutes Edie Singh [facility] [place] Start: 06-12-2021 Office outpatient visit 15 minutes Edie Singh [facility] [place] Start: 08-10-2020 End: 08-13-2020 Patient encounter procedure EDIE SINGH [facility] Start: 08-10-2020 End: 08-12-2020 Subsequent hospital visit by physician [facility] MRI Comment on above: Left elbow pain Procedures Date Procedure Procedure Detail Performing Clinician Start: 06-18-2023 MR lumbar spine wo con PROGRAM ARRANGER-C Ellie Torres Start: 11-07-2022 Plain X-ray of right hip Start: 11-03-2022 X-ray of right knee Start: 10-08-2022 Plain chest X-ray Start: 10-01-2022 Plain chest X-ray Start: 09-10-2022 Computed tomography of abdomen and pelvis with contrast Start: 08-10-2020 Mri any jt upper extremity w/o contrast kindrabriana SINGH Start: 08-10-2020 Mri any jt upper extremity w/o contrast kindral Edie Singh Work Phone: Plan of Treatment Date Care Activity Detail Author Start: 04-30-2020 Influenza vaccination Flu vaccine (# 1) [place], [place] Start: 2011 Lipid panel Lipid screen [place], [place] Start: 11-11-1992 Screening for malign ant neoplasm of cervix Cervical cancer screen [place], [place] Start: 11-11-1990 DTaP/Tdap/Td vaccine (1 - Tdap) DTaP/Tdap/Td vaccine (1 - Tdap) [place], [place] Start: 11-11-1986 HIV screening HIV screen [place], [place] Patient Education [facility] Work Phone: Patient referral [facility] Work Phone: Immunizations Immunization Date Immunization Notes Care Provider Donnie dewitt 03-11-2021 Toradol 30 mg/ml Edie Wid ashli Other [facility] Other 03-11-2021 KENALOG - 10 mg Edie Widm er Other [facility] Other 02-17-2021 Toradol 30 mg/ml Edie Wid ashli Other [facility] Other 06-10-2020 Depo-Medrol 80 mg Edie Wi dmer Other [facility] Other 06-19-2019 Depo-Medrol 40 mg Edie Wi dmer Other [facility] Other 11-28-2018 Toradol per 15 mg Edie Wi dmer Other [facility] Other 11-28-2018 Depo-Medrol 80 mg Edie Wi dmer Other [facility] Other Payers Date Payer Category Payer Unknown [id number] 37 2022 Self-pay [id number] 46 2018 Unknown [id number] 1971 Unknown [id number] 1971 Unknown [id number] .[id number] 1971 Unknown [id number] 1971 Unknown [id number] .[id number] 1971 Unknown [id number] 1958 Medicaid [id number] . [id number] Medicaid [place] [id number] 42 Unknown [id number] 2.16 [id number] Unknown HCAP/HFA/FAP Active [id number] Unknown [id number] [id number] Unknown [id number] [id number] Unknown [id number] [id number] Unknown [id number] [id number] Unknown [id number] [id number] Unknown [id number] [id number] Unknown [id number] [id number] Unknown [id number] [id number] Unknown [id number] Social History Date Type Detail Facility Tobacco smoking status NHIS Unknown if ever smoked [facility] Sex Assigned At Not on file [facility] Sex Assigned At Sex Assigned At Bir th [facility] Other Start: 09-10-2022 End: 10-08-2022 Tobacco smoking status NHIS Never smoked tobacco (finding) [facility] Start: 1970 Sex Assigned At Female F [facility] Medical Equipment Procedure Code Equipment Code Equipment Origin al Text Equipment Identifier Dates Start: 09-30-2022 Clinical Notes 06-12-2021 to 04-16-2023 Note Date & Type Note Facility 04-16-2023 Evaluation note Encounter Date Diagnosis Assessment Notes Mar, Chest congestion (ICD-10 - R09.89) Discussed diagnosis with patient today in office. Advised patient that there are no acute findings present today on exam. Advised patient that these are likely chronic issues that should be discussed by her PCP. Advised patient that she may benefit from pulmonology referral, or work-up for COPD. Advised patient that I will send Rx of steroid, albuterol inhaler to use as directed. Encouraged use of OTC Zyrtec/Claritin daily. Recommended patient follow-up over to [facility] for follow-up appointment with PCP to discuss next steps. Patient verbalizes understanding and is agreeable with treatment plan [facility] Other 06-06-2023 Evaluation note* Encounter Date Diagnosis Assessment Notes Treatment Notes Treatment Clinical Notes Jan, Prediabetes (ICD-10 - R73.03) Jan, Body mass index (BMI ) of 45.0-49.9 in adult (ICD-10 - Z68.42) Jan, Hypertension (ICD-10 - I10) Jan, Obstructive sleep apnea (ICD-10 - G47.33) Jan, Knee osteoarthritis (ICD-10 - M17.9) Jan, Metabolic syndrome X (ICD-10 - E88.81) [facility] Other 04-26-2023 Evaluation note* Encounter Date Diagnosis Assessment Notes Treatment Notes Treatment Clinical Notes Nov, Obstructive sleep apnea (ICD-10 - G47.33) Nov, Morbid (severe) obesity due to excess calories (ICD-10 - E66.01) [facility] Other 04-19-2023 Evaluation note* Encounter Date Diagnosis Assessment Notes Treatment Notes Treatment Clinical Notes Nov, Obesity (ICD-10 - E66.9) Nov, BMI 45.0-49.9, adult (ICD-10 - Z68.42) Nov, Other Summary of Visi t: (A) smoothie ideas (B) reviewed plate method and discussed meal ideas for dinner (C) protein ideas to increase protein at breakfast and lunch AND SNACKS Patient set the following goals: - explore exercise options: [employer], [employer], and home execises; PARTIALLY MET - add more veggies - PARTIALLY MET [facility] Other 04-17-2023 Evaluation note* Encounter Date Diagnosis Assessment Notes Treatment Notes Treatment Clinical Notes Nov, Obesity (ICD-10 - E66.9) Unfortunately patient continues to gain weight with an additional 7.2 pounds since our initial visit in September. She is tolerating Victoza and I do feel that this is still of benefit to her to help decrease portion sizes and improve blood sugar as she was prediabetic with an A1c of 6.1 initially. Long discussion had regarding weight positive effects of medications especially the Depo-Medrol injection which she believes she may be done with now that she is 52. I feel strongly that this is one of the main culprits in her weight gain but she also has has been on this for about 4 years. In addition to this she has recently started amitriptyline, duloxetine and pregabalin all of which can have a weight positive effect. Again we discussed risk and benefit for overall health goals. We will follow sleep study that has been ordered and only needs to be scheduled at this point. Encourage patient to work closely with dietitian for meal prep and planning. Encouraged to incorporate some type of protein such as peanut butter into her smoothie to help slow down the digestion of other concentrated sugars even though it is from a natural food source. Her next goal is to incorporate chair exercises for 15 to 20 minutes a day 1 to 2 days a week initially and build upon those goals. She can also start to walk to the end of her street and back and increase as tolerated especially since she is getting a brace soon for her knee. Nov, Essential hypertension (ICD-10 - I10) Blood pressure has been well controlled in office with her current medication regimen. Hopefully with some weight loss, better diet and incorporation of physical activity these numbers can continue the improved. Nov, Chronic pain (ICD-10 - G89.29) Encouraged her to continue to work with her PCP for pain management but also reinforced that physical activity is very important in keeping moving in addition to weight loss goals. Increase activity as tolerated. Nov, Sleep apnea (ICD-10 - G47.30) She has papers just needs to schedule her sleep study at this point in time. We will follow. Nov, Other low back pain (ICD-10 - M54.59) Nov, Prediabetes (ICD-10 - R73.09) Initial A1c was 6.1 starting with us in September. Could recheck at follow-up to assess progress and clinical course. Nov, Depression (ICD-10 - F32.9) Nov, Daytime sleepiness (ICD-10 - R40.0) Nov, Spinal stenosis (ICD-10 - M48.00) Nov, Impaired fasting glucose (ICD-10 - R73.01) Nov, Encounter for weight management (ICD-10 - Z76.89) [facility] Other 04-04-2023 Evaluation note* Encounter Date Diagnosis Assessment Notes Treatment Notes Treatment Clinical Notes Nov, Obesity (ICD-10 - E66.9) Nov, BMI 45.0-49.9, adult (ICD-10 - Z68.42) Nov, Other Summary of Visi t: (A) ideas for easy lunch (B) reviewed plate method and encouraged fiber foods (C) protein ideas to increase protein at breakfast and lunch Patient set the following goals: - NEW: explore exercise options: [employer], [employer], and home execises - NEW: add more veggies [facility] Other 03-11-2023 Evaluation note* Encounter Date Diagnosis Assessment Notes Treatment Notes Treatment Clinical Notes Oct, Contact dermatitis, unspecified contact dermatitis type, unspecified trigger (ICD-10 - L25.9) Unsure of what is causing reaction; it is often the case with rashes and reactions. OTC Zyrtec may help with symptoms. Recommend using unscented sensitive skin products for a few weeks as system will be more sensitive than normal. Recommend follow up with primary care provider or dermatology if rash does not clear with treatment. Use medication as directed and take with food to prevent stomach upset. Oct, Right hip pain (ICD-10 - M25.551) Continue meds and warm packs. hip pain may be exacerbated by knee [facility] Other 03-07-2023 Evaluation note* Encounter Date Diagnosis Assessment Notes Treatment Notes Treatment Clinical Notes Oct, Acute pain of right knee (ICD-10 - M25.561) Oct, Arthritis of right knee (ICD-10 - M17.11) Osteoarthritis home care material was printed Drink plenty fluids, get plenty of rest. Take the Medrol Dosepak as prescribed until gone. Continue home medications as prescribed. Follow-up with your orthopedic physician if no improvement in 2 to 3 days. [facility] Other 03-03-2023 Evaluation note* Encounter Date Diagnosis Assessment Notes Treatment Notes Treatment Clinical Notes Oct, Obesity (ICD-10 - E66.9) Patient has had a 5.8 pound weight gain since our initial visit. She has had multiple variables in this that some medications were changed and increased including weight positive medications. She seems to be tolerating the Victoza at the 1.8 mg dose. This is a good medication for both diabetes remission and weight loss. We will continue to monitor patient's clinical course for both weight loss and her A1c first week of December and determine titration or change in treatment plan. Hopefully she received her last Depo injection and this will work in patient's favor in the future months and years. Praised her in her efforts of giving up her regular sugar Mountain Dew and Sprite and switching to a diet Mountain Dew and using it as a treat Hopefully she can connect with dietitian and received some personalized meal prep and planning guidance. 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 Oct, Essential hypertension (ICD-10 - I10) Our initial goals of 5 to 10% weight loss should help improve her hypertension and comorbidities associated with this disease. Oct, Chronic pain (ICD-10 - G89.29) She recently started working with her PCP on titrating to medications to help control her pain as she felt pain management did not help her in the past. We again discussed the weight positive effects of some of the medication including pregabalin amitriptyline. Everything is risk and benefit but something to consider Oct, Sleep apnea (ICD-10 - G47.30) Previous confirmation of sleep apnea a few years ago with a SLEEP STUDY. Awaiting schedule of referral to sleep medicine at this point in time. Central scheduling is behind on referrals. Patient understands that sleep apnea significantly increases risk of cardiac complications as well as hypertension, daytime fatigue, and brain fog among others. Educated that CPAP compliance is of utmost importance to help prevent related comorbidities. Treat with weight loss with a goal of less positive pressure needed. Pt understands that even with moderate weight loss, often a positive pressure device may still be necessary. We will perform surveillance t/o our visits. Oct, Other low back pain (ICD-10 - M54.59) Oct, Prediabetes (ICD-10 - R73.09) Victoza is twofold benefit medication for this patient as it is helping with both glucose control and weight improvement. We will continue to monitor A1c every 3 months last one was 6.1 on 09/30/2022 Oct, Depression (ICD-10 - F32.9) Oct, Daytime sleepiness (ICD-10 - R40.0) Continue to work on good sleep hygiene in addition to incorporating some type of physical exercise during the day. Hopefully with some better food choices under the guidance of the dietitian her blood sugar spikes and crashes will be less and also improve her daytime fatigue. Oct, Spinal stenosis (ICD-10 - M48.00) Oct, Impaired fasting glucose (ICD-10 - R73.01) Oct, Encounter for weight management (ICD-10 - Z76.89) [facility] Other 03-02-2023 Evaluation note* Encounter Date Diagnosis Assessment Notes Treatment Notes Treatment Clinical Notes Oct, LACEY (generalized anxiety disorder) (ICD-10 - F41.1) continue medication as discussed. Oct, Insomnia, unspecifie d type (ICD-10 - G47.00) continue current treatment Oct, Osteoarthritis of lumbosacral spine (ICD-10 - M47.817) follow treatment changes as discussed. Oct, Other spondylosis with radiculopathy, lumbar region (ICD-10 - M47.26) Follow treatment changes as discussed Oct, Chronic pansinusitis (ICD-10 - J32.4) Take medication as directed. [facility] Other 02-07-2023 Evaluation note* Encounter Date Diagnosis Assessment Notes Treatment Notes Treatment Clinical Notes Sep, Obesity, unspecified classification, unspecified obesity type, unspecified whether serious comorbidity present (ICD-10 - E66.9) Sep, BMI 45.0-49.9, adult (ICD-10 - Z68.42) Sep, Other Summary of Visi t: (A) Presentation of Plate Method discussed (B) Sample meal ideas reviewed (C) exercise recommendations reviewed Patient set the following goals: - patient set personal goal using given handout. [facility] Other 02-02-2023 Evaluation note* Encounter Date Diagnosis Assessment Notes Treatment Notes Treatment Clinical Notes Sep, Subacute cough (ICD-10 - R05.2) Sep, Walking pneumonia (ICD-10 - J18.9) Take medications as directed. Rest and increase fluid intake. Take meds with food to prevent stomach upset. Use inhaler as needed for coughing spells and SOB. It is better to use inhaler a few times a day over the next 2-3 days. Follow up with primary care provider if symptoms do not improve with treatment plan, although it may take a few weeks for the cough to go away Sep, LACEY (generalized anxiety disorder) (ICD-10 - F41.1) Continue current treatment program [facility] Other 02-01-2023 Evaluation note* Encounter Date Diagnosis Assessment Notes Treatment Notes Treatment Clinical Notes Sep, Obesity (ICD-10 - E66.9) Findings consistent with obesity. Patient understands that this increases risk of multiple comorbidities associated with weight gain especially if there is a genetic predisposition. Discussed the complexity behind obesity and its multifactorial causes including genetics, the biological changes that occur with processed foods as well as lack of physical activity. We will assess for underlying causes of abnormal weight gain including thyroid dysfunction, poor sleep, medications, diet, etc. Discussed importance of adopting a healthier lifestyle in order to decrease or eliminate risk of impending diseases associated with excessive weight. Initial goal of modest weight loss approximately 3 to 5% can help to improve risk factors and some comorbidities. Our second goal of 10 to 15% weight loss can result in even more potentially disease modifying, remission, or improved mortality benefits. Initial goals include eliminate sugary beverages of Mountain Dew and Sprite Obtain sleep study for further diagnosis and evaluation Advised against Depo injection for control as this is a very weight positive medication. She should discuss other options through menopause with her BIG DATA ADMIN. Optimize sleep quality and quantity using good sleep hygiene Sep, Essential hypertension (ICD-10 - I10) Patient has history of hypertension. Blood pressure reading within normal limits today. Treat with low-salt diet, decreased processed and restaurant foods, healthy lifestyle changes and achieve long-term weight loss. Encouraged to monitor outside of the office setting. Encouraged to work with dietitian closely for both weight loss and hypertension focused diet. We discussed how just 5 to 10% modest weight loss can help improve blood pressure. Treat with weight loss and goal of decreasing or eliminating BP medications as appropriate. Sep, Chronic pain (ICD-10 - G89.29) Patient admits to arthritis pain pain likely exacerbated/secondar y to increased weight. Treat with exercise incorporating low impact exercises or modifications as needed. Advised to that there are multiple different exercise programs available many of which can be done within the home that required little to no impact. Encouraged swimming as feasible. Slowly increase activity over time to reach goal of 30 minutes most days of the week. 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 Sep, Sleep apnea (ICD-10 - G47.30) Patient has had sleep study and diagnosis of sleep apnea approximately 2 years ago. She does state that she did not follow through at her follow-up appointment to obtain a machine due to fear of intolerance and claustrophobia. We discussed at length today how sleep apnea significantly increases risk of cardiac complications as well as hypertension, daytime fatigue, and brain fog among others. Educated that CPAP compliance is of utmost importance to help prevent related comorbidities. Treat with weight loss with a goal of less positive pressure needed. Pt understands that even with moderate weight loss, often a positive pressure device may still be necessary. We will perform surveillance t/o our visits. Sep, Other low back pain (ICD-10 - M54.59) Sep, Prediabetes (ICD-10 - R73.09) Sep, Depression (ICD-10 - F32.9) Sep, Daytime sleepiness (ICD-10 - R40.0) Encouraged good sleep hygiene by going to bed at approximately the same time each night and similar waking hours each day, not eating too close to bedtime, avoid excessive fluids and eating shortly before bed, turning off blue light on phone/computers, silencing notifications, etc. Fatigue during the day could also be related to blood sugar spikes and subsequent crashes related to poor dietary habits of high glucose or high carbohydrate meals and snacks. Increase water intake. Sep, Spinal stenosis (ICD-10 - M48.00) Sep, Impaired fasting glucose (ICD-10 - R73.01) Due to impaired fasting glucose we did recheck an A1c today which was 6.1%. Discussed translation of this to patient and how she falls into the prediabetic category. First-line treatment with long-term healthy lifestyle change, decrease simple sweets and refined starches, increased exercise and activity and continue with long-term weight loss goals. Will need close long-term follow-up for this condition to prevent diabetes. Consider metformin or GLP-1 agonist. [facility] Other 01-22-2023 Evaluation note* Encounter Date Diagnosis Assessment Notes Treatment Notes Treatment Clinical Notes Aug, Contact with and (suspected) exposure to other viral communicable diseases (ICD-10 - Z20.828) Aug, Laryngitis (ICD-10 - J04.0) Laryngitis home care material was printed Drink plenty fluids, get plenty of rest. Take the prednisone as prescribed until gone. Continue home medications as prescribed. Follow-up with your family physician if no improvement in 2 to 3 days [facility] Other 01-16-2023 Evaluation note* Encounter Date Diagnosis Assessment Notes Treatment Notes Treatment Clinical Notes Aug, Left acute otitis media (ICD-10 - H66.92) Take medication as directed. Complete all doses at this time. May use TYlenol and warm packs for comfort Aug, Urine retention (ICD-10 - R33.9) Recommend follow up with urology as discussed, especially if any more urine retention occurs as many complications can occur. Aug, Hypokalemia (ICD-10 - E87.6) Complete potassium tablets as prescribed from ER doctor then have labs rechecked the day after [facility] Other 01-12-2023 Evaluation note* Encounter Date Diagnosis Assessment Notes Treatment Notes Treatment Clinical Notes Aug, Urine retention (ICD-10 - R33.9) very concerned patient is having symptoms of neurogenic bladder due to symptoms occuring after a recent fall. Recommend patient go to ER due to inability to urinate and she has not urinated since yesterday evening. [facility] Other 12-29-2022 Evaluation note* Encounter Date Diagnosis Assessment Notes Treatment Notes Treatment Clinical Notes Jul, LACEY (generalized anxiety disorder) (ICD-10 - F41.1) Jul, Other low back pain (ICD-10 - M54.59) Jul, Insomnia, unspecified type (ICD-10 - G47.00) Jul, Other spondylosis with radiculopathy, lumbar region (ICD-10 - M47.26) MME is 9.7 per day and OARRS is checked. Jul, Skin lesion (ICD-10 - L98.9) [facility] Other 12-19-2022 Evaluation note* Encounter Date Diagnosis Assessment Notes Treatment Notes Treatment Clinical Notes Jul, Other spondylosis with radiculopathy, lumbar region (ICD-10 - M47.26) [facility] Other 12-01-2022 Evaluation note* Encounter Date Diagnosis Assessment Notes Treatment Notes Treatment Clinical Notes Jul, DDD (degenerative disc disease), lumbar (ICD-10 - M51.36) Continue treatment regimen Jul, Facet arthritis of lumbar region (ICD-10 - M47.816) OARRS checked and patient is compliant. MED is 0. and No more than MAX 10MED per day when taken as prescribed. Jul, Chronic pansinusitis (ICD-10 - J32.4) Start medication and if this doesn't work then we may discuss seeing ENT [facility] Other 11-21-2022 Evaluation note* Encounter Date Diagnosis Assessment Notes Treatment Notes Treatment Clinical Notes Jun, Left otitis media with effusion (ICD-10 - H65.92) Jun, Thrush (ICD-10 - B37.0) Jun, DDD (degenerative disc disease), lumbar (ICD-10 - M51.36) [facility] Other 11-03-2022 Evaluation note* Encounter Date Diagnosis Assessment Notes Treatment Notes Treatment Clinical Notes Jun, Sore throat (ICD-10 - J02.9) Jun, Contact with and (suspected) exposure to other viral communicable diseases (ICD-10 - Z20.828) Your Covid PCR test is negative. This means at this time you do not have COVID. Jun, Lumbar degenerative disc disease (ICD-10 - M51.36) Sent over referral as requested. Recommend to get records from neurosurgeon to them Jun, Bilateral acute otitis media (ICD-10 - H66.93) Already sent over medication this morning. If symptoms persist, call office and we will send referal [facility] Other 10-31-2022 Evaluation note* Encounter Date Diagnosis Assessment Notes Treatment Notes Treatment Clinical Notes May, Other spondylosis with radiculopathy, lumbar region (ICD-10 - M47.26) Patients lumbar pain is tolerable at this time. She attributes this to recent lumabr epidural steroid injection. We will continue to monitor and proceed with future treatment to the area as needed. We will follow up with the patient in three months, sooner if needed. Anatomy of spine discussed in detail with patient in regards to patients condition. Overall, patient believes their pain is reasonably well controlled and she is in agreement with our treatment plan. May, Osteoarthritis of lumbosacral spine (ICD-10 - M47.817) May, Chronic pain (ICD-10 - G89.29) May, Other Above note written by Javed Arreola MA, Rn Integrity. Edited and approved by Dr. Pop Blandon MD. [facility] Other 10-27-2022 Evaluation note* Encounter Date Diagnosis Assessment Notes Treatment Notes Treatment Clinical Notes May, Left acute otitis media (ICD-10 - H66.92) Ear infections are often a secondary infection caused from an URI, the flu or allergies. Take medication as directed. Complete all doses, even if you feel better. Tylenol or ibuprofen can help with pain. Warm pack to area for comfort helps as well. Follow up with primary care provider if no improvement of symptoms. May, LACEY (generalized anxiety disorder) (ICD-10 - F41.1) Added as needed medication as discussed. [facility] Other 09-26-2022 Evaluation note* Encounter Date Diagnosis Assessment Notes Treatment Notes Treatment Clinical Notes Apr, Mild episode of recurrent major depressive disorder (ICD-10 - F33.0) Increase medication as discussed. will follow up in a few weeks to see if it is helping. Apr, Fatigue, unspecified type (ICD-10 - R53.83) ordered labs as discussed today in office to discussed. Apr, Morbid (severe) obesity due to excess calories (ICD-10 - E66.01) Referral being sent to weight management as I am not able to prescribe Ozempic for weight loss Apr, Body mass index [BMI] 40.0-44.9, adult (ICD-10 - Z68.41) [facility] Other 09-26-2022 Evaluation note* Encounter Date Diagnosis Assessment Notes Treatment Notes Treatment Clinical Notes Apr, Mild episode of recurrent major depressive disorder (ICD-10 - F33.0) Increase medication as discussed. will follow up in a few weeks to see if it is helping. Apr, Essential hypertension (ICD-10 - I10) Continue medication at this time. Apr, Fatigue, unspecified type (ICD-10 - R53.83) ordered labs as discussed today in office to discussed. Apr, Morbid (severe) obesity due to excess calories (ICD-10 - E66.01) Referral being sent to weight management as I am not able to prescribe Ozempic for weight loss Apr, Body mass index [BMI] 40.0-44.9, adult (ICD-10 - Z68.41) [facility] Other 09-22-2022 Evaluation note* Encounter Date Diagnosis Assessment Notes Treatment Notes Treatment Clinical Notes Apr, Lumbar degenerative disc disease (ICD-10 - M51.36) Keep upcoming appointments with pain management appointments and neurosurgery appt as discussed. Apr, Acute non-recurrent frontal sinusitis (ICD-10 - J01.10) Take medication as directed. Recommend taking OTC Zyrtec or allergy until after harvest season [facility] Other 08-29-2022 Evaluation note* Encounter Date Diagnosis Assessment Notes Treatment Notes Treatment Clinical Notes Mar, Essential hypertension (ICD-10 - I10) Refilled medication as needed. Mar, Mild episode of recurrent major depressive disorder (ICD-10 - F33.0) Increased dose as discussed. Patient has some life challenges going on in life, but overall has positive outlook Mar, Follow-up exam (ICD-10 - Z09) Discussed all test results in office today and what further steps are needed. Patient states understanding. [facility] Other 08-24-2022 Evaluation note* Encounter Date Diagnosis Assessment Notes Treatment Notes Treatment Clinical Notes Mar, DDD (degenerative disc disease), lumbar (ICD-10 - M51.36) Mar, Other spondylosis with radiculopathy, lumbar region (ICD-10 - M47.26) Patient voices minimal complaints of pain at this time following a recent lumbar epidural steroid injection. We will continue to montior and proceed with future treatment to the area as needed. In the meantime, given reasonable improvement wih gabapentin, we will trial an increase the patients Gabapentin to 600 MG TID. She was instructed to increase gradually as tolerated. OARRS was processed and reviewed, no discrepencies. We will follow up with the patient in one month for re-evaluation, sooner if needed. Anatomy of spine discussed in detail with patient in regards to patients condition. Overall, patient believes their pain is reasonably well controlled and she is in agreement with our treatment plan. Mar, Chronic pain (ICD-10 - G89.29) Mar, Other Above note writ ten by Javed Arreola CMA, Rn Integrity. Edited and approved by Dr. Pop Blandon MD. [facility] Other 08-18-2022 Evaluation note* Encounter Date Diagnosis Assessment Notes Treatment Notes Treatment Clinical Notes Mar, Strain of lumbar region, initial encounter (ICD-10 - S39.012A) [facility] Other 08-08-2022 Evaluation note* Encounter Date Diagnosis Assessment Notes Treatment Notes Treatment Clinical Notes Mar, Essential hypertension (ICD-10 - I10) Today during the appointment we ordered labs to check on how your kidneys are functioning since you have high blood pressure. It is important for us to make sure we protect your kidneys since vision, kidneys and blood circulation are all effected by high blood pressure. It may take us a couple of visits to get your blood pressure in a healthy range and once we do we can space them out a lot more. In addition to medication prescribed we will also talk about healthy changes you can try. Also we will check other labs yearly to screen for other issues. Please remember we are a team and your opinion is very important in all of your healthcare decisions Mar, DDD (degenerative disc disease), lumbar (ICD-10 - M51.36) Mar, Mild episode of recurrent major depressive disorder (ICD-10 - F33.0) Today during the appointment we discussed depression and emotions. We talked about treatment options that include both counseling and medication interventions. When we first start treatment, it is common to have to be seen more frequently as we figure out the best treatment regimen that fits you as an individual. We will be able to space out appointments more once we find what works for you. If at any time you feel like your symptoms have increased in severity or you want to hurt yourself, please never hesitate to contact us and we will get you in to be seen. Also always know the [facility] Emergency Number is 24 hours a day available, even on holidays there is someone you can reach out to. Also we will check other labs yearly to screen for other health issues. Please remember we are a team and your opinion is very important in all of your healthcare decisions Mar, Other spondylosis with radiculopathy, lumbar region (ICD-10 - M47.26) [facility] Other 07-05-2022 Evaluation note* Encounter Date Diagnosis Assessment Notes Treatment Notes Treatment Clinical Notes Feb, Pain in left lumbar region of back (ICD-10 - M54.50) Take medications as directed. Use caution when operating machinery with muscle relaxer as it may cause drowsiness. Alternating heat and ice to area 3-4 times per day. Rest a lot Follow up with primary care if there is no symptom improvement within the next week, sooner if symptoms worsen or new symptoms occur. Feb, Left lumbar pain (ICD-10 - M54.50) [facility] Other 06-01-2022 Evaluation note* Encounter Date Diagnosis Assessment Notes Treatment Notes Treatment Clinical Notes Jan, Generalized pain (ICD-10 - R52) Jan, Strain of lumbar region, initial encounter (ICD-10 - S39.012A) [facility] Other 05-19-2022 Evaluation note* Encounter Date Diagnosis Assessment Notes Treatment Notes Treatment Clinical Notes December, DDD (degenerative disc disease), lumbar (ICD-10 - M51.36) December, Other low back pain (ICD-10 - M54.59) Patients primary complaint today continues to be low lumbar pain radiating into the posterior aspect of her left lower extremity. She has failed multiple previous conservative treatments and continues to experience worsening symptoms. Patient was encouraged to continue with plans for an upcoming MRI. We will follow up with the patient next week after she has completed of this. Given the severity of her symptoms we will prescribe a medrol dose pack. Anatomy of spine discussed in detail with patient in regards to patients condition. December, Chronic pain (ICD-10 - G89.29) December, Other Above note writ ten by Javed Arreola CMA, Rn Integrity. Edited and approved by Dr. Pop Blandon MD. [facility] Other 04-14-2022 Evaluation note* Encounter Date Diagnosis Assessment Notes Treatment Notes Treatment Clinical Notes Nov, DDD (degenerative disc disease), lumbar (ICD-10 - M51.36) Nov, Other low back pain (ICD-10 - M54.59) Patients primary complaint today is low lumbar pain radiating into the posterior aspect of her left lower extremity. She has failed multiple previous conservative treatments and continues to experience worsening symptoms. I will order an updated MRI of her lumbar spine for further evaluation of her pain symptoms. Pending the results, we can consider a referral to neurosurgery vs injections. We will follow up with the patient once we obtain the results. In the meantime she will stop use of Meloxicam and continue with use of Aleve. Additonally, we will prescribe Tizanidine 4mg once daily. Risks and side effects of this medication was discussed in detail with the patient who voiced understanding. Anatomy of spine discussed in detail with patient in regard to patients condition. Nov, Chronic pain (ICD-10 - G89.29) Nov, Other Above note writ ten by Luli Garcias LPN, Rn Integrity. Edited and approved by Dr. Pop Blandon MD. [facility] Other 03-17-2022 Evaluation note* Encounter Date Diagnosis Assessment Notes Treatment Notes Treatment Clinical Notes Oct, DDD (degenerative disc disease), lumbar (ICD-10 - M51.36) Oct, Other low back pain (ICD-10 - M54.59) Patients primary complaint today is low lumbar and gluteal pain, most bothersome on the left side. Her symptoms appear consistent with the sacroiliac region upon exam. Based on location of pain and exam findings, patient is a candidate for a left sacroiliac joint injection which we will proceed with. Risks and benefits of procedure explained to patient; patient verbalizes understanding. Additionally, I will switch the patient from Diclofenac Sodium to Meloxicam 15 MG once daily. Risks and side effects of this medication was discussed in detail with the patient who voiced understanding. We will follow up with the patient one week following her procedure. Anatomy of spine discussed in detail with patient in regards to patients condition. Oct, Chronic pain (ICD-10 - G89.29) Oct, Other Above note writ ten by Javed Arreola MA, Rn Integrity. Edited and approved by Dr. Pop Blandon MD. [facility] Other 03-10-2022 Evaluation note* Encounter Date Diagnosis Assessment Notes Treatment Notes Treatment Clinical Notes Oct, Strain of lumbar region, initial encounter (ICD-10 - S39.012A) Recieved shot of Toradol/ Steroid - start Steroid in the morning and muscle relaxer today. Take medications as directed. Use caution when operating machinery with muscle relaxer as it may cause drowsiness. Alternating heat and ice to area 3-4 times per day. Rest a lot Follow up with primary care as discussed so you can talk about referrals. [facility] Other 03-02-2022 Evaluation note* Encounter Date Diagnosis Assessment Notes Treatment Notes Treatment Clinical Notes Oct, Generalized pain (ICD-10 - R52) [facility] Other 01-31-2022 Evaluation note* Encounter Date Diagnosis Assessment Notes Treatment Notes Treatment Clinical Notes Aug, DDD (degenerative disc disease), lumbar (ICD-10 - M51.36) Patient's main complaint continues to be low lumbar pain radiating into the the posterior and lateral aspect of her lower left extremity. Patient was encouraged to continue with physical therapy until she has completed the full course or is discharged. In the meantime, she will continue Diclofenac Sodium 75mg BID, and Zanaflex 4mg BID. In the future if the pain persists, we can consider further evaluation with an MRI vs possible facet injections. Anatomy of spine discussed in detail with patient in regards to patients condition. Aug, Generalized pain (ICD-10 - R52) Patient is voicing complaints of increasing widespread pain symptoms since starting physical therapy. She is requesting that we start another medication and specifically has asked if we could start gabapentin. Given widespread pain complaints I believe this would be reasonable to trial. I will start the patient on Gabapentin 300 MG titrated to up to three times daily assuming she does not have major side effects. Patient was provided with a titration schedule. Risks and side effects of this medication was discussed in detail with the patient who voiced understanding. OARRS was processed and reviewed, no discrepencies. Aug, Other low back pain (ICD-10 - M54.59) Aug, Chronic pain (ICD-10 - G89.29) Aug, Other Above note writ ten by Javed Arreola MA, Rn Integrity. Edited and approved by Dr. Pop Blandon MD. [facility] Other 12-13-2021 Evaluation note* Encounter Date Diagnosis Assessment Notes Treatment Notes Treatment Clinical Notes Jul, Lumbar radicular pain (ICD-10 - M54.16) Patient having significant pain with radicular extension down the left leg and will be placed on strong anti-inflammatory of indomethacin to help reduce inflammation and pain as well as she was given IM Depo-Medrol here in the office. Patient will also have x-rays obtained. She does have a history of a transverse process fracture but no other injuries previously to the back. Will assess for arthritic changes as patient could have facet joint arthritis versus a herniated disc. Presently will work on getting her acute pain to calm down. Jul, Lumbar paraspinal muscle spasm (ICD-10 - M62.830) Will start muscle relaxer and gave IM steroid injection. Patient has significant paraspinal muscle hypertonicity and she was given Flexeril to help relax her muscles. [facility] Other 10-14-2021 Evaluation note* Encounter Date Diagnosis Assessment Notes Treatment Notes Treatment Clinical Notes May, Acute non-recurrent maxillary sinusitis (ICD-10 - J01.00) Patient continues to have sinus infection symptoms but unfortunately she was getting sick from the Augmentin. We will stop Augmentin and switch to cefdinir and start Zofran for nausea. Patient instructed to call if she is having problems with the new antibiotic. May, Suspected COVID-19 virus infection (ICD-10 - Z20.822) Covid antigen testing today is negative May, Bilious vomiting with nausea (ICD-10 - R11.14) May, Contact with and (suspected) exposure to other viral communicable diseases (ICD-10 - Z20.828) May, Other Additional time spent conducting pre-visit phone call, screening for symptoms, instructions on social distancing, application and removal of PPE, and cleaning of examination room, equipment and supplies was preformed. Patient education given for testing methodology and results. Patient care instructions given in writting by [facility] document. [facility] Other Evaluation noteNo InformationNort [place] [facility] Other Evaluation noteNo assessment information available [facility] Work Phone: History general Narrative - Reported* Type Description Date Medical History HTN Hospitalization History saliva stones [facility] Other History general Narrative - Reported* Type Description Date Medical History HTN Medical History back pain Hospitalization History saliva stones [facility] Other History general Narrative - Reported* Type Description Date Medical History HTN Medical History Back pain Medical History Day time fatigue Medical History Depression Medical History Gestational diabetes in the past Medical History Spinal stenosis Medical History Chronic pain requiring narcotic use Hospitalization History saliva stones [facility] Other Hishtft general Narrative - Reported* Type Description Date Medical History HTN Medical History Back pain Medical History Day time fatigue Medical History Depression Medical History Gestational diabetes in the past Medical History Spinal stenosis Medical History Chronic pain requiring narcotic use Hospitalization History saliva stones Hospitalization History [facility] pneumonia 09/2021 [facility] Other Hismhij general Narrative - ReportedNoVeritext Other Hospital Discharge instructions Additional Instructions Use your albuterol inhaler as prescribed for your shortness of breath and wheezing. Take Levaquin and prednisone as prescribed for pneumonia and laryngitis follow-up with the PCP for reevaluation in 5 to 7 days. .[facility] Work Phone: reason for visit NarrativeNeurosurgery Referral Update [facility] Other reason for visit NarrativePain Medicine [facility] Other reason for visit NarrativeDermatology Referral Update [facility] Other Summary Purpose Family History No Family History Records FoundNo Family History Records FoundNo Family History Records FoundNo Family History Records Found Advance Directives No Advanced Directives Records Found Advance Directive Response Recorded Date/ Time Advance Directives No August 05, 2018 12:30pm Advance Directive Response Recorded Date/ Time Advance Directives No August 05, 2018 1:30pm Reason for Referral Status Reason Specialty Diagnoses / Procedures Referre d By Contact Referred To Contact Closed Radiology Diagnoses Left elbow pain Procedures MRI ELBOW LEFT WO CONTRAST ArtemioEdie cornelius N, DO [address] [place] [address] Reason his shefflied o ffice - patient has history of chronic back pain and would like opinion if surgery is option Diagnosis 1 Pain in left lumbar region of back (M54.50) Diagnosis 2 Lumbar degenerative disc disease (M51.36) Diagnosis 3 DDD (degenerative di sc disease), lumbar (M51.36) Diagnosis 4 Other spondylosis wi th radiculopathy, lumbar region (M47.26) Referral Organization [facility] Referring Provider First Name Ellie Referring Provider Last Name Juan Jose Referring Provider Specialty Nurse Pract itioner Referred Organization Unknown Facility Referred Provider Specialty Neurological Surgery Referral Priority Routine General Notes Serene Lucas 07:37:02 AM >Dr. Clements has retired and moved to another state. Would patient like to continue with This office or go somewhere else? Ellie Torres 03/05/2022 10:16:24 AM >is there a neuro surgeon there? Serene Lucas 03/05/2022 10:40:16 AM >Yes, they have other Neurosurgeons [facility], then [facility]/06[facility] 07:55:07 AM >Waiting for office notes to be locked before sending referral [facility] 03/10/2022 10:08:27 AM >Referral was fax Reason * 07/09 lumbar p ain [facility] or [facility] Diagnosis 1 Lumbar degenerative disc disease (M51.36) Referral Organization [facility] Referring Provider First Name Ellie Referring Provider Last Name Juan Jose Referring Provider Specialty Nurse Pract itioner Referred Organization [facility] Referred Address [address] [facility] [place] Referred Provider Specialty Pain Medicin e Referral Priority Routine General Notes Serene Lucas 03:02:38 PM >Received and fax referral today Clinical Notes Office [phone] Reason CANCELLED recently changed skin lesions on face Diagnosis 1 Skin lesion (L98.9) Referral Organization [facility] Referring Provider First Name Ellie Referring Provider Last Name Juan Jose Referring Provider Specialty Nurse Pract itioner Referred Organization [facility] Referred Address [address] [facility] [address] [facility],[place],[address] Referred Provider Specialty Dermatology Referral Priority Routine General Notes Serene Lucas 08:22:14 AM >Received today and accidently sent P2P with notes not being locked. Alexandrea Lucasn 09/03/2022 01:06:15 PM >Fax letter for appt update Alexandrea Lucasn 09/03/2022 03:38:54 PM >Received letter back and they do not take patients insurance. I will send this to [facility] when notes are locked Serene Lucas 09/08/2022 10:41:21 AM >[facility] request us to fill out their form and fax to them. They will review the referral and call patient to schedule them. Referral was fax Serene Lucas 09/15/2022 08:24:13 AM >Fax letter for appt update Serene Lucas 09/15/2022 11:10:21 AM >Received letter back and they have tried reaching out to patients multiple times. I will call patient and see if she is still interested Serene Lucas 09/15/2022 02:32:56 PM >Called patient and it stated right away that the patient is not accepting calls at this time. Serene Lucas 09/17/2022 01:16:55 PM >Called patient and it stated right away that the patient is not accepting calls at this time. Serene Lucas 09/21/2022 11:05:24 AM >Called patient and it stated right away that the patient is not accepting calls at this time. Serene Lucas 09/23/2022 09:16:38 AM >Fax letter for appt update Serene Lucas 09/23/2022 10:38:05 AM >Received letter back and patient was not scheduled. They could not get a hold of patient Serene Lucas 09/23/2022 10:41:12 AM >Telephone encounter was sent Reason Previous confirmed s leep apnea (failed to obtain mask 2 yrs ago when diagnosed), please evaluate and treat. Thanks! Diagnosis 1 Sleep apnea (G47.30) Referral Organization [facility] Referring Provider First Name Danya Referring Provider Last Name byron Referring Provider Specialty Nurse Pract itioner Referred Organization [facility] Referred Address [address] [place],[address] Referred Provider Specialty Sleep Medici ne Referral Priority Routine General Notes Xiomy Solo 2022 08:06:34 AM > Faxed to sleep lab. Xiomy Solo 10/22/2022 08:01:36 AM > Per Central Scheduling, order was received but pt has not been contacted yet to schedule. Assessments Diagnosis Left elbow pain Pain in joint, upper arm Chief Complaint and Reason for Visit Chief Complaint Unable to urinate Chief Complaint Unable to urinate Obesity Chief Complaint Unable to urinate Obesity congestion,losing voice Chief Complaint Unable to urinate R05.2 congestion,losing voice Obesity Chief Complaint Unable to urinate R05.2 congestion,losing voice Obesity M25.561 Chief Complaint R05.2 congestion,losing voice M25.561 M25.551 Obesity g47.30 Chief Complaint g47.30 Obesity Unspecified sleep apnea Chief Complaint R29.898 Additional Source Comments INFORMATION SOURCE (unrecogn ized section and content) DATE CREATED AUTHOR 08/14/2020 [facility] DATE CREATED AUTHOR AUTHOR'S ORGANIZ ATION 11/20/2022 [facility] DATE CREATED AUTHOR AUTHOR'S ORGANIZ ATION [facility]20[facility] DATE CREATED AUTHOR AUTHOR'S ORGANIZ ATION 08/11/2023 [facility] Reason for Visit (unrecogniz ed section and content) Status Reason Specialty Diagnoses / Procedures Referre d By Contact Referred To Contact Closed Radiology Diagnoses Lateral epicondylitis, left elbow Pain in left elbow Procedures HC MRI-UPPER EXT JNT WO CONT Edie Singh, DO [address] [place] [address] [facility] [address] [place] [id number] Care Teams (unrecognized sec tion and content) Team Status: Inactive Member Role Status Dates NON STAFF Primary Care Provider Active Reinaldo Mehta DO Emergency Provider Active Team Status: Active Member Role Status Dates NON STAFF Primary Care Provider Active Team Status: Active Member Role Status Dates SOBEIDA Lee-C Primary Care Provider, Atten ding Provider Active Team Status: Inactive Member Role Status Dates CHARLA LeeP-C Primary Care Provider, Atten ding Provider Active Team Status: Active Member Role Status Dates SOBEIDA Lee-C Primary Care Provider Active Team Status: Inactive Member Role Status Dates SOBEIDA Lee-C Primary Care Provider Active Edie Bolton DO Emergency Provider Active Team Status: Inactive Member Role Status Dates SOBEIDA Lee-C Primary Care Provider Active Susana Ellis NP-C Attending Provider Active Team Status: Inactive Member Role Status Dates Ellie Torres , PROGRAM ARRANGER-C Primary Care Provider Active Danya Carty APRN Referring Provider Active Gurmeet Olmedo MD Attending Provider Active Team Status: Inactive Member Role Status Dates Ellie Torres , PROGRAM ARRANGER-C Primary Care Provider Active Gurmeet Olmedo MD Attending Provider Active Team Status: Inactive Member Role Status Dates Ellie Torres , PROGRAM ARRANGER-C Primary Care Provider Active Gurmeet Palacios DO Attending Provider Active Goals (unrecognized section and content) Goals may be documented in a n alternate section FOR RECORDS PERTAINING TO PATIENTS WHO ARE OR HAVE BEEN ENROLLED IN A CHEMICAL DEPENDENCY/SUBSTANCEABUSE PROGRAM, SOME INFORMATION MAY BE OMITTED. This clinical summary was aggregated from multiple sources. Caution should be exercised in using it in the provision of clinical care. This summary normalizes information from multiple sources, and as a consequence, information in this document may materially change the coding, format and clinical context of patient data. In addition, data may be omitted in some cases. CLINICAL DECISIONS SHOULD BE BASED ON THE PRIMARY CLINICAL RECORDS. [facility]. provides no warranty or guarantee of the accuracy or completeness of information in this document.
--- NOTE | 2023-10-08 18:21 | ECG_ITS ---
[facility] Test Date: 2023-10-08 Pat Name: JOSELITO VIDAL Department: Room: - Gender: Female Network Project Manager: : 1970 Requested By: [id number] Order Number: [id number] Reading MD: MEGAN BAIG Measurements Intervals [place] Rate: 108 P: 60 IN: 158 QRS: 87 QRSD: 82 T: 26 QT: 336 QTc: 400 Interpretive Statements 1120 Sinus tachycardia 8102 Low QRS voltage in chest leads Non-Specific T wave inversion in III 9140 abnormal rhythm ECG Compared to ECG 08/08/2018 13:05:34 Low QRS voltage now present Sinus rhythm no longer present Electronically Signed On 10-11-2023 6:43:30 EST by MEGAN BAIG
--- NOTE | 2023-10-08 18:24 | ED_ITS ---
HPI - General Adult General Chief complaint: Dizziness Stated complaint: Low blood pressure 93/56 Time Seen by Provider: 10/08/23 18:19 Source: patient Mode of arrival: Wheelchair History of Present Illness HPI narrative: Patient is a 52-year-old female who is presenting to the ER with chief complaint of lightheaded, dizziness, elevated heart rate, and low blood pressure. Patient granddaughter at bedside, patient was dropped off at the ER for evaluation. Patient lives in [place], her PCP is in [place]. Patient states she has been having intermittent lightheaded, dizziness but no vertigo. No headache, no neck pain. No changes in her blood pressure medication recently. Patient has never been hospitalized before. Patient has no cardiac or lung history. Patient states she has had no water weight gain in the last couple weeks, patient says she has been drinking water all day and night, she typically does this, but she feels like her mouth has been dry and a foul taste in her mouth. No history of diabetes. No recent traveling. No nausea, vomiting, diarrhea, or any other acute complaints. Patient looks well. Patient was dropped off by family member. Patient is ambulating. No nausea, vomiting, diarrhea, or any other acute complaints. All systems are negative except as noted/marked. All systems reviewed and otherwise negative. Nurses note and vital signs reviewed and patient is not hypoxic. General: The patient appears well and in no apparent distress. Patient is resting comfortably on cart. Patient is not toxic, lethargic, or listless Skin: Warm, dry, no pallor noted. There is no rash noted. No petechiae, purpura. Head: Normocephalic, atraumatic Eye: Normal conjunctiva, no drainage, EOMI. PERRL Ears, Nose, Mouth, and Throat: oral mucosa is moist. Nares patent. Mouth without vesicles. Cardiovascular: Regular Rate and Rhythm, no murmur, gallop, rub Respiratory: Patient is in no distress, no accessory muscle use, lungs are clear to auscultation, no wheezing, rales or rhonchi Back: non-tender, no CVA tenderness bilaterally to percussion. No CT LS midline pain GI: obese, no tenderness to palpation, no masses appreciated. No rebound, guarding, or rigidity noted. No distention Musculoskeletal: Patient has full range of motion of all of the extremities, no motor, sensory, or focal neurological deficits Neurological: A&O x4, normal speech Psychiatric: Cooperative Related Data Home Medications Medication Instructions Recorded Confirmed albuterol sulfate 90 mcg/actuation 2 puff inhalation Q4H PRN 10/08/23 10/08/23 aerosol inhaler shortness of breath or wheezing amitriptyline 75 mg tablet 75 mg PO QPM 10/08/23 10/08/23 budesonide-formoterol HFA 160 1 puff inhalation Q12H 10/08/23 10/08/23 mcg-4.5 mcg/actuation aerosol inhaler (Symbicort) cetirizine 10 mg tablet 10 mg PO DAILY 10/08/23 10/08/23 duloxetine 60 mg capsule,delayed 60 mg PO BID 10/08/23 10/08/23 release gabapentin 600 mg tablet 600 mg PO QID 10/08/23 10/08/23 hydroxyzine HCl 50 mg tablet 50 mg PO TID PRN anxiety 10/08/23 10/08/23 liraglutide 0.6 mg/0.1 mL (18 mg/3 1.8 mg subcut DAILY 10/08/23 10/08/23 mL) subcutaneous pen injector (GiftLaunchertoza 2-Florentino) lisinopril 20 1 tab PO DAILY 10/08/23 10/08/23 mg-hydrochlorothiazide 25 mg tablet meloxicam 7.5 mg tablet 7.5 mg PO DAILY 10/08/23 10/08/23 metformin 500 mg tablet,extended 500 mg PO BID 10/08/23 10/08/23 release 24 hr norethindrone (contraceptive) 0.35 0.35 mg PO DAILY 10/08/23 10/08/23 mg tablet (Deblitane) pantoprazole 20 mg tablet,delayed 20 mg PO DAILY 10/08/23 10/08/23 release spironolactone 100 mg tablet 100 mg PO DAILY 10/08/23 10/08/23 tizanidine 4 mg tablet 4 mg PO TID PRN muscle spasticity 10/08/23 10/08/23 topiramate 25 mg tablet 25 mg PO QPM 10/08/23 10/08/23 Allergies Allergy/AdvReac Type Severity Reaction Status Date / Time No Known Drug Allergies Allergy Verified 10/08/23 18:17 Exam Constitutional Vital Signs, click to edit/add: Last Vital Signs Temp 98.3 F 10/08/23 18:11 Pulse 107 H 10/08/23 18:35 Resp 20 10/08/23 18:11 BP 100/62 10/08/23 18:35 Pulse Ox 98 10/08/23 18:11 O2 Del Method Room Air 10/08/23 18:11 Course Vital Signs Vital signs: Vital Signs Temperature 98.3 F 10/08/23 18:11 Pulse Rate 116 H 10/08/23 18:11 Respiratory Rate 20 10/08/23 18:11 Blood Pressure 92/61 10/08/23 18:11 Pulse Oximetry 98 10/08/23 18:11 Oxygen Delivery Method Room Air 10/08/23 18:11 Temperature 98.3 F 10/08/23 18:11 Pulse Rate 107 H 10/08/23 18:35 Respiratory Rate 20 10/08/23 18:11 Blood Pressure 100/62 10/08/23 18:35 Pulse Oximetry 98 10/08/23 18:11 Oxygen Delivery Method Room Air 10/08/23 18:11 Medical Decision Making MDM Narrative Medical decision making narrative: 1849 patient is asking for nausea medication, I just asked the patient if she had any nausea, vomiting, diarrhea and she stated no. Patient be given a dose of Zofran. 1899 patient's case will be transition to Dr. Granados. Patient EKG shows no acute changes, patient's orthostatics, her lying heart rate was 107, her standing heart rate was 122. Patient's blood pressure systolic and diastolic did not change much. Patient is given 1 L of IV fluid as well. Patient most likely will be dispositioned home, lab work and urine testing are still pending. ECG Data Attestation: I personally reviewed and interpreted this ECG as follows: (EKG interpretation. Sinus tachycardia at 108. Normal axis deviation. No acute ST elevation, no acute ectopy. QTc of 400.) Discharge Plan Discharge Patient Disposition: Still a Patient
--- NOTE | 2023-10-08 18:30 | XR_ITS ---
The [address] [address] Patient Name: JOSELITO VIDAL MRN: [id number] date: 1970 Sex: F Assigned Patient Location: ER Current Patient Location: ED.MAIN Accession/Order Number: [id number] Exam Date: 10/08/2023 18:28 Report Date: 10/08/2023 19:17 At the request of: JAMMIE CASTANEDA Procedure: XR chest 1V EXAMINATION:XR chest 1V INDICATION:cp COMPARISON:None TECHNIQUE:A single frontal view of the chest is submitted. FINDINGS: The cardiomediastinal silhouette is not enlarged. The pulmonary vascularity is within normal limits. The lungs are clear based on chest radiography. There is no costophrenic angle blunting. XR/XR chest 1V IMPRESSION: Unremarkable plain film examination of the chest. Electronically authenticated by: JIMENA LEE Date: 10/08/2023 19:17
[2023-10-08] MEDS: 0.9 % SODIUM CHLORIDE 1,000 ML 1000 ML IV (18:48)
[2023-10-08 19:02] LABS: Basophils Percent Auto 0.3 % (0.2-2.0); Eosinophils Absolute Auto 0.2 10^3/uL (0.0-0.7); Eosinophils Percent Auto 1.1 % (0.9-7.0); Hematocrit 37.1 % (36.0-48.0); Hemoglobin 12.1 g/dL (12.0-16.0); Immature Granulocytes Abs Auto 0.15 10^3/uL (0.00-0.03); Immature Granulocytes Pct Auto 1.1 % (0.0-0.5); Lymphocytes Absolute Auto 4.4 10^3/uL (1.2-3.8); Mean Corpuscular HGB Conc 32.6 g/dL (29.9-35.2); Mean Corpuscular Hemoglobin 31.8 pg (26.7-34.0); Mean Corpuscular Volume 97.4 fL (81.0-99.0); Monocytes Absolute Auto 1.3 10^3/uL (0.3-0.8); Monocytes Percent Auto 9.7 % (1.7-12.0); Neutrophils Absolute Auto 7.6 10^3/uL (1.4-6.5); Neutrophils Percent Auto 55.8 % (43.0-75.0); Platelet Count 513 10^3/uL (150-450); Red Blood Count 3.81 10^6/uL (4.20-5.40); Red Cell Distribution Width 14.7 % (11.0-15.0); White Blood Count 13.7 10^3/uL (4.0-11.0)
[2023-10-08 19:18] LABS: INR 1.03; Prothrombin Time 10.9 sec (9.0-11.6)
[2023-10-08 19:24] LABS: D Dimer 1.44 mg/L FEU (<=0.59)
[2023-10-08 19:28] LABS: Alanine Aminotransferase 25 U/L (14-59); Albumin Globulin Ratio 0.8; Albumin Level 3.2 g/dL (3.4-5.0); Alkaline Phosphatase 78 U/L (46-116); Anion Gap 14.4; Aspartate Amino Transferase 21 U/L (15-37); BUN Creatinine Ratio 18.9; Bilirubin Total 0.2 mg/dL (0.2-1.0); Calcium 8.8 mg/dL (8.5-10.1); Carbon Dioxide 24.4 mmol/L (21.0-32.0); Chloride 101 mmol/L (98-107); Estimated GFR (African America 37 (>=60); Estimated GFR (Non-African Ame 31 (>=60); Globulin 3.8 g/dL; Glucose 116 mg/dL (74-106); Potassium 4.8 mmol/L (3.5-5.1); Sodium 135 mmol/L (136-145); Troponin I High Sensitivity 4.3 pg/mL (4.0-51.3)
[2023-10-08] MEDS: ONDANSETRON PF 4 MG/2 ML VIAL IV (19:29)
--- NOTE | 2023-10-08 19:53 | CT_ITS ---
[address] [address] Patient Name: JOSELITO VIDAL MRN: [id number] date: 1970 Sex: F Assigned Patient Location: ER Current Patient Location: Accession/Order Number: [id number] Exam Date: 10/08/2023 20:16 Report Date: 10/08/2023 20:56 At the request of: ELVA CROWELL Procedure: CT angio chest EXAM: CTA chest. CLINICAL SYMPTOMS: Female, 52 years, dizzy, elevated dimer. COMPARISONS: Chest x-ray 10/08/2033. TECHNIQUE: Helical CTA of the pulmonary arteries was performed following rapid injection of intravenous contrast with coronal and sagittal MIP images following the administration of IV contrast. Dose reduction techniques were achieved by using automated exposure control and/or adjustment of mA and/or KVP according to patient size and/or use of iterative reconstruction technique. FINDINGS: Neck/Mediastinum: Normal imaged thyroid. No lymphadenopathy. Cardiovascular: Normal heart size without pericardial effusion or thickening. Normal caliber of the ascending thoracic aorta and main pulmonary artery. No central filling defects in the pulmonary arteries. Lungs/pleura/airways: No pneumothorax, pleural effusion or consolidation. There is a solid nodule of the right middle lobe measuring 2.2 cm axial image 41. Diffuse mosaic attenuation throughout the lungs. Atelectasis of the lingula. There is posterior collapse of the distal trachea. Upper Abdomen: Small hiatal hernia. Musculoskeletal/Soft Tissues: No acute fracture or aggressive osseous abnormality. Normal appearance of the soft tissues. CT/CT angio chest IMPRESSION: No evidence for pulmonary embolism or aortic dissection. Diffuse mosaic attenuation throughout the lungs may be seen with small airway disease or bronchiolitis. Prominent right middle lobe solid nodule measuring 2.2 cm. Recommend repeat chest CT in 3 months, PET/CT or soft tissue sampling Electronically authenticated by: VERONIKA BENITES Date: 10/08/2023 20:56
--- NOTE | 2023-10-08 21:21 | ED_ITS ---
HPI - Dizziness General Chief Complaint: Dizziness Stated Complaint: Low blood pressure 93/56 Time Seen by Provider: 10/08/23 18:19 Source: patient Mode of arrival: Wheelchair History of Present Illness HPI Narrative: 52-year-old female was initially seen by Dr. Soriano and signed out to me after discussing the case with him thoroughly. Please see his full history and physical. Related Data Home Medications Medication Instructions Recorded Confirmed albuterol sulfate 90 mcg/actuation 2 puff inhalation Q4H PRN 10/08/23 10/08/23 aerosol inhaler shortness of breath or wheezing amitriptyline 75 mg tablet 75 mg PO QPM 10/08/23 10/08/23 budesonide-formoterol HFA 160 1 puff inhalation Q12H 10/08/23 10/08/23 mcg-4.5 mcg/actuation aerosol inhaler (Symbicort) cetirizine 10 mg tablet 10 mg PO DAILY 10/08/23 10/08/23 duloxetine 60 mg capsule,delayed 60 mg PO BID 10/08/23 10/08/23 release gabapentin 600 mg tablet 600 mg PO QID 10/08/23 10/08/23 hydroxyzine HCl 50 mg tablet 50 mg PO TID PRN anxiety 10/08/23 10/08/23 liraglutide 0.6 mg/0.1 mL (18 mg/3 1.8 mg subcut DAILY 10/08/23 10/08/23 mL) subcutaneous pen injector (Victoza 2-Florentino) lisinopril 20 1 tab PO DAILY 10/08/23 10/08/23 mg-hydrochlorothiazide 25 mg tablet meloxicam 7.5 mg tablet 7.5 mg PO DAILY 10/08/23 10/08/23 metformin 500 mg tablet,extended 500 mg PO BID 10/08/23 10/08/23 release 24 hr norethindrone (contraceptive) 0.35 0.35 mg PO DAILY 10/08/23 10/08/23 mg tablet (Deblitane) pantoprazole 20 mg tablet,delayed 20 mg PO DAILY 10/08/23 10/08/23 release spironolactone 100 mg tablet 100 mg PO DAILY 10/08/23 10/08/23 tizanidine 4 mg tablet 4 mg PO TID PRN muscle spasticity 10/08/23 10/08/23 topiramate 25 mg tablet 25 mg PO QPM 10/08/23 10/08/23 Allergies Allergy/AdvReac Type Severity Reaction Status Date / Time No Known Drug Allergies Allergy Verified 10/08/23 18:17 Exam Constitutional Vital Signs, click to edit/add: Last Vital Signs Temp 98.3 F 10/08/23 18:11 Pulse 92 H 10/08/23 20:40 Resp 17 10/08/23 20:40 BP 96/71 10/08/23 20:36 Pulse Ox 97 10/08/23 20:40 O2 Del Method Room Air 10/08/23 18:11 Course Vital Signs Vital signs: Vital Signs Temperature 98.3 F 10/08/23 18:11 Pulse Rate 116 H 10/08/23 18:11 Respiratory Rate 20 10/08/23 18:11 Blood Pressure 92/61 10/08/23 18:11 Pulse Oximetry 98 10/08/23 18:11 Oxygen Delivery Method Room Air 10/08/23 18:11 Temperature 98.3 F 10/08/23 18:11 Pulse Rate 92 H 10/08/23 20:40 Respiratory Rate 17 10/08/23 20:40 Blood Pressure 96/71 10/08/23 20:36 Pulse Oximetry 97 10/08/23 20:40 Oxygen Delivery Method Room Air 10/08/23 18:11 MDM - Dizziness MDM Narrative Medical decision making narrative: D-dimer was elevated so CAT scan was performed and shows no pulmonary embolism. It does show a nodule. I discussed this with the patient and she was told she had this in 2020 when she was admitted for COVID at another hospital. Nonetheless she will follow-up with her PCP. She may be somewhat dehydrated and was given IV fluids as well and is able to be discharged home. Treatment diagnosis and follow-up were discussed with the patient. Differential Diagnosis Differential diagnosis: Likely benign paroxysmal positional vertigo, orthostatic hypotension and other (Dehydration, acute kidney injury) Lab Data Attestation: I reviewed the patient's lab results. Labs: Lab Results 10/08/23 Range/Units 18:39 WBC 13.7 H (4.0-11.0) 10^3/uL RBC 3.81 L (4.20-5.40) 10^6/uL Hgb 12.1 (12.0-16.0) g/dL Hct 37.1 (36.0-48.0) % MCV 97.4 (81.0-99.0) fL MCH 31.8 (26.7-34.0) pg MCHC 32.6 (29.9-35.2) g/dL RDW 14.7 (11.0-15.0) % Plt Count 513 H (150-450) 10^3/uL MPV 9.0 L (9.5-13.5) fL Neut % (Auto) 55.8 (43.0-75.0) % Lymph % (Auto) 32.0 (20.5-60.0) % Falls % (Auto) 9.7 (1.7-12.0) % Eos % (Auto) 1.1 (0.9-7.0) % Baso % (Auto) 0.3 (0.2-2.0) % Neut # (Auto) 7.6 H (1.4-6.5) 10^3/uL Lymph # (Auto) 4.4 H (1.2-3.8) 10^3/uL Falls # (Auto) 1.3 H (0.3-0.8) 10^3/uL Eos # (Auto) 0.2 (0.0-0.7) 10^3/uL Baso # (Auto) 0.0 (0.0-0.1) 10^3/uL Abs Immat Gran (auto) 0.15 H (0.00-0.03) 10^3/uL Imm/Tot Granulo (auto) 1.1 H (0.0-0.5) % PT 10.9 (9.0-11.6) sec INR 1.03 D-Dimer 1.44 H* (<=0.59) mg/L FEU Sodium 135 L (136-145) mmol/L Potassium 4.8 (3.5-5.1) mmol/L Chloride 101 (98-107) mmol/L Carbon Dioxide 24.4 (21.0-32.0) mmol/L Anion Gap 14.4 BUN 33.0 H (7.0-18.0) mg/dL Creatinine 1.75 H (0.55-1.02) mg/dL Est GFR ( Amer) 37 L (>=60) Est GFR (Non-Af Amer) 31 L (>=60) BUN/Creatinine Ratio 18.9 Glucose 116 H (74-106) mg/dL Calcium 8.8 (8.5-10.1) mg/dL Total Bilirubin 0.2 (0.2-1.0) mg/dL AST 21 (15-37) U/L ALT 25 (14-59) U/L Alkaline Phosphatase 78 (46-116) U/L Troponin I High Sens 4.3 (4.0-51.3) pg/mL NT-Pro-B Natriuret Pep 29.0 (<=900.0) pg/mL Total Protein 7.0 (6.4-8.2) g/dL Albumin 3.2 L (3.4-5.0) g/dL Globulin 3.8 g/dL Albumin/Globulin Ratio 0.8 Lipase 48.0 (16.0-77.0) U/L Imaging Data CT scan - chest: Radiologist's impression: ITS Impressions Chest X-Ray 10/08/23 18:30 IMPRESSION: Unremarkable plain film examination of the chest. Electronically authenticated by: JIMENA LEE Date: 10/08/2023 19:17 Chest CTA 10/08/23 19:53 IMPRESSION: No evidence for pulmonary embolism or aortic dissection. Diffuse mosaic attenuation throughout the lungs may be seen with small airway disease or bronchiolitis. Prominent right middle lobe solid nodule measuring 2.2 cm. Recommend repeat chest CT in 3 months, PET/CT or soft tissue sampling Electronically authenticated by: VERONIKA BENITES Date: 10/08/2023 20:56 Discharge Plan Discharge Chief Complaint: Dizziness Clinical Impression: Dizziness, Dehydration, mild Patient Disposition: Home, Self-Care Time of Disposition Decision: 21:20 Condition: Good Mode of Transportation: Private Vehicle Prescriptions / Home Meds: No Action albuterol sulfate 90 mcg/actuation HFA aerosol inhaler 2 puff INHALATION Q4H PRN (Reason: shortness of breath or wheezing) amitriptyline 75 mg tablet 75 mg PO QPM cetirizine 10 mg tablet 10 mg PO DAILY budesonide-formoterol [Symbicort] 160-4.5 mcg/actuation HFA aerosol inhaler 1 puff INHALATION Q12H duloxetine 60 mg capsule,delayed release(DR/EC) 60 mg PO BID gabapentin 600 mg tablet 600 mg PO QID hydroxyzine HCl 50 mg tablet 50 mg PO TID PRN (Reason: anxiety) Victoza 2-Florentino 0.6 mg/0.1 mL (18 mg/3 mL) pen injector 1.8 mg SUBCUT DAILY lisinopril-hydrochlorothiazide 20-25 mg tablet 1 tab PO DAILY meloxicam 7.5 mg tablet 7.5 mg PO DAILY metformin 500 mg tablet extended release 24 hr 500 mg PO BID norethindrone (contraceptive) [Deblitane] 0.35 mg tablet 0.35 mg PO DAILY pantoprazole 20 mg tablet,delayed release (DR/EC) 20 mg PO DAILY spironolactone 100 mg tablet 100 mg PO DAILY tizanidine 4 mg tablet 4 mg PO TID PRN (Reason: muscle spasticity) topiramate 25 mg tablet 25 mg PO QPM Instructions: Dehydration (ED), Dizziness (ED) Stand Alone Forms: Portal Instructions Referrals: LIT TORRES [Primary Care Provider] - 1 week
== END 2023-10-08 21:33 | disposition home or self-care (01) ==
PROVIDERS: Emergency Medicine; Emergency Provider Emergency Medicine; PCP Nurse Practitioner Family
DX: E86.0 Dehydration (principal); R42 Dizziness and giddiness; R79.1 Abnormal coagulation profile; Z79.899 Other long term (current) drug therapy; Z79.84 Long term (current) use of oral hypoglycemic drugs; Z86.16 Personal history of COVID-19
CPT/HCPCS: 36415; 71045; 71275; 80053; 81001; 83690; 83880; 84484; 85025; 85378; 85610; 93005; 96361; 96374; 99285; J2405; Q9966

== ENCOUNTER 2023-10-13 18:06 | Observation (INO) | payer OTHER, SELFPAY ==
[2023-10-13] VITALS (23 sets, daily range): BP systolic 113–147; BP diastolic 69–70; PULSE 69–152; RESP 17–28; TEMP 36.8–36.9; O2SAT 95–100; BMI 51.6; BMI 53.2
--- OUTSIDE RECORDS SUMMARY | 2023-10-13 18:16 | XMS_ITS | CCD ---
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 Name Role Phone EDIE SINGH Referring Unavailable EDIE SINGH Primary Care Unavailable Edie Singh Primary Care Provider [phone] Edie Singh Unavailable Edie Singh Unavailable Pop Blandon Unavailable Ellie Torres Unavailable NON STAFF Primary Care Provider UnavailDO Reinaldo Gutierrez Emergency Provider LUCY Torres Primary Care Provider LUCY Torres Attending Provider SOBEIDA Torres-Ruperto Ellie Primary Care Provider SOBEIDA Torres-C Ellie Attending Provider DO Edie Bolton Emergency Provider RadhautSusana Jeong Unavailable Danya Carty Unavailable Serene Bustos Unavailable AGUSTO Ellis Attending Provider ELLIE TORRES Consulting Unavailable JUAN JOSE, ELLIE [...] JOSE, ELLIE Attending Unavailable Gurmeet Olmedo Unavailable [phone] SOBEIDA Torres-C Ellie Primary Care Provider SOBEIDA Torres-C Ellie Attending Provider DO Edie Bolton Emergency Provider AGUSTO Sung Attending Provider [phone] BROOKLYNN Carty Referring Provider [phone] MD Gurmeet Olmedo Attending Provider [phone] JUAN JOSE, ALYSON Kwan Attending Unavail able [...] a day for 30 days Oct, Active [id number] 200 actuat albuterol 0.09 mg/actuat metered dose [...] Active Start: 06-25-2022 take 1 tablet by [facility] twice daily hydrOXYzine HCl 10 MG 1 [...] Depo-Medrol 80 mg Nov, 60 mg nystatin 632220 unt/ml oral suspension (1 source) Polyene Antifungal Start: 07-20-2022 take 5 mL by mouth four times daily Nystatin 404414 UNIT/ML 5 ml Mouth/Throat Four times a [...] Start: 10-29-2022 take 1 capsule by [facility] every twelve hours Pregabalin 150 MG 1 [...] wo conon MR lumbar spine wo con [facility] Main [place] [address] [place] [address] MRI Report Signed Patient: Mariana Kelly MR#: [id number] : 1970 Acct:[id number] Age/Sex: 52 / F ADM Date: 06/18/23 Loc: MR Room: Type: [facility] Attending Dr: Gurmeet Palacios DO Copies to: [...] Arianna Urena M.D.06/18/2023 8:28 PM Dictation Location: [place] [address] Transcribed By: [facility] 06/18/232027 Dictated By: Arianna Urena MD 06/18/232010 Signed By: 06/18/232027 [facility] Coding Summary.on 12-10-2022 Coding Summary. CD:[id number] Ww+PG hlYWQ+NH6TUBEaU68yqILhgC2 aW2BBWMoVKbyqQGQFVCyXQvUo pkRnNG4zaTXpUMZj IC8+DM0yEUEhJfjimJCfc6E2h CI4G23cqp6bTGaayAT6USCpOc Yhkwjzo8puwDi1EZeoQigvHgU t UXHzxB84NVY5bV80Cy39hLKxf TIob4trrEy0QaCkXLNaQRK4lQ miOBsuz5UnQCXqZ55cmUNyi2J 6 IMYkcHbzeIRoBoFauZW5wT4vH Hdwkrgpb0splyrvBpz2ey64aD Twz0U4eTY1H6EutpO7EQYhnCU g AxwvnJSAvU5vqdnin6dwaqybL wVcUPGnFNe5IJa4MUOkvTvcDr WlQR82VTT0UKWbehJvX0KsIEI s dThaFxB2a1F6Yx4ZU0EFHemoZ 1VNTUFSWTwvdGQ+AZ16qs47K3 InEpztHdr3OKFrQBK6lQK4pR4 n RHMbUUvnl4J9bCN4D8EcsvPeb j3hb4wiKVOeQVbpO20auWQyq7 O7UXAriHX5LAZqpQecBiRgmN4 3 Oyc+WVGziFkmg0QaEejuz4ewg 3jfxWt7WmjwEZMfcjUiaYyhEI R2h9LhHo2vHGRocRK7iTD3jU2 i OzTaKnM8ZTerB057PtZzaXMvG jqvV08rQ7YsuLD+NXYjWxc1SZ PynPuwWZ3gP0GfRRWqtiannOX m tFwjVL5rJASagzuwZSVheH7hL HSwV8t9SgYvHqU4MSrcF1BqJQ ByogweJz31jH9wJqMnCiM0DWs u O7VoxgF7EXGlfAIpQYzwVMM9K 60yp3R1NGKsSSOnOKB6oMQ2pE 1hbGlnbjogbGVmdDsgdmVydGl j LVzvZVneR367TZAofTycWgHvZ GluZyBEYXRlOiAgMDQvMTMvMj AyMzwvdGQ+IBIiXDL8iUrdPQL n sDUpWNoySc1cpOinqKnaRM4sI DMjoxomCJYynK3rCCNntKZjjJ zcGC0rNHEeeuwck998ZsGmUUC 0 QXBnjXSvF7NxoT1mQvLeVPVvP HJuN5DbrCCqFVqfQ337YVttGf D4KSPoytWnR9PdPEYxmNynEkQ 0 o0I5Po0In5KcjyxzD2WwfZQcD sPhEhumTXd8L1JwHcxumKW+PC 39SSMaLL33OOw9QUZ2sIhbXRm i WSOfG0BvuN5hYqDhVKCvGLXpA yc+PHRhYmxlIHdpZHRoPScxMD QhTsZrbGczNU0xKk0nWMZvFFW v jPzjaHJqRiEga1nuOYWbZZpxQ Y0dmMtiR3BizWZ3YNPbz0n4Ac 69B88cY0JbzLZ+MPZzkUJ4pYV 0 mU5pZyVgWkW5AMmhP305PwOea VZwJjick7bkc7rtiIe7YnT4MF MuepOtmAhxSSE8k8OkVd13O70 s IHdpZHRoPSIxNSUiIHZhbGlnb h8ysI6bPy9+KQXvkOJ4qOX9iC 0yVyBcJqT7WUxvQ890MoHswMQ v Kqcaq9vhw3xknRv3DwTlNQBfq pUmfBdcWKS4k6BvVg02H0DjaT iyl2NvIqr6sq22sHGuz5H3jYP 9 Y4UySBNejcwggEHceBlgMU5zL DHcpyvxIBFihD1zKFYuT1b7Uf PqKgB3OXbaZ1OsrcY7DFTuiXA g OPVppYINyV8nddukg1luuowyS gSwUSIlQEx1RJf4VWNluOewPh JpSVF2ReV3RAX4uTDsyX2gpLq n lvhhwX0wQcn+BIG4eBCgpRIGY B2dOnfsgWT+MWJpYFP3zHrkPW ifLJGtaA4cZSPxH8p3OgYbGnL 1 PJdbM6IzstK9CZSfdPRjVXOxd FFOvD7jokhdt9dkcjvvHtHeDM NkCHg4FSy7FZNauVyhTcBrRFU 0 VaG5NGM9lCUfkS9rrLtspprkc G9wOyc+EyicpLtvNDA7FWw6J3 CqUcg4SIJrcDpnPS1ehENcEYe u Br7lqPsmgBneQQ3xMWWafuarn 195UnEip4rpVQQprQErDZrrZH Z0N20vx3Q3CFJjNBSoHOQ9iEO 4 vG9dvQjtdzligRGbuUhsvqNlk IubIEzbRRhyB147DIIgiFdmAf CyFCq1P0IkDyy4PINmjLvmLK3 n sCLoMGoeGz3ndLorzAnsDE0aN GSnwxlke494DwCtd1lmSIUryB AkPFlwIIJ4A42sz4G0JRLxLAH w KHH0jFT2aB9fuFgrgusxuEZqv MwiupWnqLxzSWvmZPlyQ785ZI JseQoaEmJgwJw8N5XyHxn7WCU z gNmgNN5rlGJnGJsrTe9hrCkav LuwOG6iXERejdcpe023LfLzp2 acDVUhrZXnTGcnKLQ8I14ba4E 6 LSBkXGHjKUW4aHC5qT2uwVmvu jogbGVmdDsgdmVydGljYWwtYW vsR994BAQstMvaGtHdvGflwzR g GRrzPBz5J0SqJnwpfAR+PC90Y DVhIO27tCWhaTAot7ejhPx5Ya FkABCpOES5kWshCAgjz0GlWNZ t E49rgBCgw1X0NEKgdFqfmAXlJ bVdoQL0tJ3uVBasyihlp0qncc nvJadtk4emmc81bM71D22bYKf p TKKmWQCcWVKjPVVxtQpjjd7rj G9wIi8+OWTpiZY0pBO1yH5qYO PsNzO4KLwqQ787NrTedIGjMlf j z1hwa7kvgJa3DrT7IWGxsvOcd JriVHE7n6OpNk06A20fCRkgMM YuIYWgMJDeDYBwsVpyxn5ftP7 w Ii8+VYThcRB6tIA0nQ0xFgEcW uG8BTgmC674TjBdhGElFxafA7 4jH0WieTI+LNPbIct2PHVgmBz s TP7aeHPgAAcjSy5qQZJ1OkJnH sGuHLiaK8YpPJCynfkahdlqqD D2NGBtXUTlwJ51Iy0mrApkRVO w bJCNnL7zhxkrv3qwgoscCoNiY KZcKLo2FWo6CHWizApjMpJvZT I5ObN4TLX6jVCqdV3zeMeluix g wO2oC8AyQZKlzharAt67fQ0oN iTlSmU1UJscQee+W0gNJLyIOA PbEULDPsPNGB00IU84tQJis0F 5 wLU7D3CvJMEhptfqzypidXD0Q EUzDDTipS65dILiFIkqVo9ic5 W1i144DYYcYRQesQ88Vj4pjSg g ZALnzOKJrK5raftfw6ijmliwU dGrRMFkDOw1PKx7RHEohRuwYn WyCEE3LkV4FRN1kXRjfC3dmIf n mcpcwU4gEmp+FWYaXIXjKGl8Y jwvdGQ+NDHyVMJ7wHxaYRtgCA TnlC1zGDLkJ9b3EoOoMoW7VCr u I6JjYAJfubaeJs48nC8cVwAkM fH2YHpmY5KdnzL5LSSotJShQJ tmDPB5N40tt1G3NAYxMSOvCRS 7 cJC6zG9wiJixvsygoKNmjXcqz mHjbEgeYDylKUxuR447KPWjiQ efQgPlVHvqUFEwHT24AN99cFM g l1O4tAY3P2FaYSArdfrdfsbdz UH4TNQrQOUflM83wCWlHRwxPx 1do4T1a029JBXaFCNghG64Gy9 u qUtuYHDvkBJPxU1zecbjt6uxw ewmTkHoVOLrNYe6NPu8SVXaqC keGpJxBOU5BqV7YXN5cRKgfG7 h xZifxquzxF6lMeg+RmVtYWxlP A02EE68zKPve0Q5wFC6E8CoTZ VylegklbjpcNA2PDOoDUGepJ1 7 tVGyTYolXv1js2Z0f492FBTrI QFuwX08Bl7taDlaKGXmvOLNeL 6dwemsf2lalwngZjIpPNLfSMk 0 PDv5PJPbuUnqYhOyPYH0OiF0J HQ0eYUkcA4qcHcshgaxdV9qPc c+WDQyKBIbh4Gnn8FaPJ31MJ0 8 I3RrNnxgmOQzmKD+PHRhYmxlI HdpZHRoPScxMDAlJyBzdHlsZT 9qSf2fPOGeWHAxvYblgIZuTjP j o7viOMHwHMcbMO8frGtiN5Ygc RS8PKFss6a1Xk41F18nU2ZufG A+MWZevDS9nDH1bG3pRvKpUeJ 2 LAreY597WhVpqXNuNojgf1vui 8lkkGp0PqFxFBFsjbFwpLjxPX M8t2PlTs49H36gHPwfBRMdRJF y LWEzCJLniYwgrj9onS5oLo8+P YLvbXY9qGZ0oA0yZyAdAdI9KN beS834PtVwfHOcXdsxJ88yL8I v dXA+ROEyZan5XFFddUjiMU0rs FDdZKopDi1gRZG7AmNtFwYmBE niZ3KfQAGrplymykvteJR5EIN u NINohU49Hk7nxOvaYo2jBIEkH MP2ZSSlcSLiQ2DcjW3yIkMaST RaKAMpQ1IzfOSmEPbtG119NHc l MiD0WWZxseVtV2VbPADfzSisO xI9z6F3Vm2RcPemeZByDS2yEq OfCOv3Y8EnVgo9PORwaUbiAQ9 n dZRwQZgwNb7gtVjbfIqeCI1dM NPirhhtg499KjSlk6zzWRJjrZ JaHIszTUT5Q65dl4D5HZCyPXQ w UPV6kKI7fJ9gvNlybkvwrNWpo NbeanSggYqhNHvjVDkoS743PC GeeIsbLfMBYtf7H8JyKeu2UGF z tSvnRR6doEGmPOmoHk7qbGdld YygNL5tKQZapkbux921HsDar6 bvAIFttOTqAKpkMFT4W21zu0W 6 KUCkWVSyJKW6tYH3lY1dkOpld jogbGVmdDsgdmVydGljYWwtYW mmZ636VNRsiVnbPd5DLcc7V8J k Asq8OKFooWioMM3igQYxECxbA d9ctCtfuHecSF6oRHYfuzbup8 11KzDdw9saLTEepABtTVeeBZV 7 T76lk3U7UUTjLGZzJBN9zCA4b S3pqQryiqyexGBdmEopdqAcfN fqINcuBEkbP685EVAzoYecIwA h eWVyOjwvdGQ+HC62fd06O7OrE itqZsy8LJReDUV1jJG6tF5wIV DnFHzpt2J9rMB2D9ZkayNkqu4 j j8rbJTAd (more content not included)... Normal [facility] CMPon 12-02-2022 Albumin [Mass/Vol] 3.8 g/dL Normal 3.3-5.0 [facility] Comment on above: Performed By: #### 2 943791, 42054507, 9912559, [id number] #### [facility] [address] [place] [address] Albumin/Globulin (S) [Mass conc ratio] 1.3 Normal 1.1-2.2 [facility] Comment on above: Performed By: #### 2 837603, 41169870, 6413258, 04810308 #### [facility] [address] [place] [address] ALP [Catalytic activity/Vol] 77 Int._Unit/L Normal 21-98 [facility] Comment on above: Performed By: #### 2 131637, 44329770, 7674697, 31113825 #### [facility] [address] [place] [address] ALT No additional P-5'-P [Catalytic activity/Vol] 21 Int._Unit/L Normal 6-46 [facility] Comment on above: Performed By: #### 2 397567, 66536984, 3403699, 39812144 #### [facility] [address] [place] [address] Anion gap [Moles/Vol] 11 mmol/L Normal 6-16 [facility] Comment on above: Performed By: #### 2 825357, 57824714, 2929585, 07623125 #### [facility] [address] [place] [address] AST [Catalytic activity/Vol] 17 Int._Unit/L Normal 5-43 [facility] Comment on above: Performed By: #### 2 691737, 49006720, 0926879, 67120183 #### [facility] [address] [place] [address] Bilirubin [Mass/Vol] 0.4 mg/dL Normal 0.0-1.1 [facility] Comment on above: Performed By: #### 2 503513, 46130693, 1295369, 93396408 #### [facility] [address] [place] [address] Calcium [Mass/Vol] 9.1 mg/dL Normal 8.9-11.1 [facility] Comment on above: Performed By: #### 2 822454, 54047402, 1189343, 75594985 #### [facility] [address] [place] [address] Chloride [Moles/Vol] 107 mmol/L Normal 101-111 [facility] Comment on above: Performed By: #### 2 463363, 04731147, 8553028, 83248028 #### [facility] [address] [place] [address] CO2 [Moles/Vol] 26 mmol/L Normal 21-31 [facility] Comment on above: Performed By: #### 2 577974, 55495571, 9618220, 84161612 #### [facility] [address] [place] [address] Creatinine [Mass/Vol] 0.9 mg/dL Normal 0.5-1.3 [facility] Comment on above: Performed By: #### 2 936576, 52222812, 3954050, 54882932 #### [facility] [address] [place] [address] Globulin (S) [Mass/Vol] 3.0 g/dL Normal 1.4-4.0 [facility] Comment on above: Performed By: #### 2 650201, 88890327, 9604992, 53706164 #### [facility] [address] [place] [address] Glucose [Mass/Vol] 110 mg/dL Normal 55-199 [facility] Comment on above: Result Comment: If t his glucose result represents a fasting glucose, interpretation should refer to the following reference range: 55-99 mg/dL Performed By: #### 2 730697, 88882895, 8970732, 53857613 #### [facility] [address] [place] [address] Potassium [Moles/Vol] 3.8 mmol/L Normal 3.5-5.3 [facility] Comment on above: Performed By: #### 2 068247, 52492596, 6375197, 34161885 #### [facility] [address] [place] [address] Protein [Mass/Vol] 6.8 g/dL Normal 6.0-7.8 [facility] Comment on above: Performed By: #### 2 878513, 87629496, 2406933, 57355301 #### [facility] [address] [place] [address] Sodium [Moles/Vol] 140 mmol/L Normal 135-145 [facility] Comment on above: Performed By: #### 2 155245, 67683536, 9513983, 39394565 #### [facility] [address] [place] [address] Urea nitrogen [Mass/Vol] 12 mg/dL Normal 5-21 [facility] Comment on above: Performed By: #### 2 741633, 22913320, 2244105, 93330275 #### [facility] [address] [place] [address] Urea nitrogen/Creatinine [Mass ratio] 13 No Units Normal 10-20 [facility] Comment on above: Performed By: #### 2 278134, 95197356, 9898681, 30151244 #### [facility] [address] [place] [address] Lipid Panelon 12-02-2022 Cholesterol [Mass/Vol] 177 mg/dL Normal 120-200 [facility] Comment on above: Performed By: #### 2 792927, 11624357, 7558107, 98241346 #### [facility] [address] [place] [address] Cholesterol in HDL [Mass/Vol] 43 mg/dL Invalid Interpretation Code [facility] Comment on above: Result Comment: HDL > or equal to 60 mg/dL: Low cardiovascular risk HDL < 40 mg/dL : High cardiovascular risk Performed By: #### 2 108255, 07195276, 1999006, 80130689 #### [facility] [address] [place] [address] Cholesterol in LDL [Mass/Vol] 123 mg/dL Normal <=129 [facility] Comment on above: Performed By: #### 2 002572, 38630947, 6447450, 41993161 #### [facility] [address] [place] [address] Cholesterol in VLDL [Mass/Vol] 32 mg/dL Normal 7-40 [facility] Comment on above: Performed By: #### 2 220857, 69400807, 7002007, 07643833 #### [facility] [address] [place] [address] Triglyceride [Mass/Vol] 158 mg/dL High <=149 [facility] Comment on above: Performed By: #### 2 198183, 54572483, 7703866, 76297390 #### [facility] [address] [place] [address] Physician Orderon 12-02-2022 Physician Order [id number]:12 [id number] Normal [facility] T4 & TSHon 12-02-2022 T4 [Mass/Vol] 7.5 microgram/dL Normal 4.6-9.1 [facility] Comment on above: Performed By: #### 2 276796, 21387038, 5321081, 26462140 #### [facility] [address] [place] [address] TSH Qn 0.59 m[IU]/L Normal 0.34-5.60 [facility] Comment on above: Performed By: #### 2 298316, 37314621, 9054832, 55980169 #### [facility] [address] [place] [address] eGFRon 12-02-2022 GFR/1.73 sq M.predicted among blacks MDRD (S/P/Bld) [Vol rate/Area] mL/min/{1.73_m2} Normal >=59 [facility] Comment on above: Order Comment: Order added by Discern Expert. Result Comment: eGFR is race adjusted. AA=. Performed By: #### 2 287111, 63646855, 2329387, 85082602 #### [facility] [address] [place] [address] GFR/1.73 sq M.predicted among non-blacks MDRD (S/P/Bld) [Vol rate/Area] mL/min/{1.73_m2} Normal >=59 [facility] Comment on above: Order Comment: Order added by Discern Expert. Result Comment: [employer] Supervisor carlos kidney disease could be indicated at eGFR's of less than 60 mL/min/1.73m2. Kidney failure is indicated at less than 15 mL/min/1.73m2. Performed By: #### 2 803994, 76411511, 9886395, 24960077 #### [facility] [address] [place] [address] XR hip RT min 2V(w/wo pelvis )*on 11-07-2022 XR hip RT min 2V(w/wo pelvis)* [facility] [employer] Other XR hip RT min 2V(w/wo pelvis)* [facility] [place] [employer] Other XR hip RT min 2V(w/wo pelvis)* [address] [place] [address] [employer] Other XR hip RT min 2V(w/wo pelvis)* [place] [address] [employer] Other XR hip RT min 2V(w/wo pelvis)* XRay Report [employer] Other XR hip RT min 2V(w/wo pelvis)* Signed [employer] Other XR hip RT min 2V(w/wo pelvis)* Patient: Mariana Kelly MR#: [id number] [employer] Other XR hip RT min 2V(w/wo pelvis)* [address]99 [employer] Other XR hip RT min 2V(w/wo pelvis)* : 1970 Acct:[id number] [employer] Other XR hip RT min 2V(w/wo pelvis)* Age/Sex: 51 / F ADM Date: 11/07/22 [employer] Other XR hip RT min 2V(w/wo pelvis)* Loc: XDUCLY Room: Type: REG CLI [employer] Other XR hip RT min 2V(w/wo pelvis)* Attending Dr: Ellie Torres [facility] [employer] Other XR hip RT min 2V(w/wo pelvis)* Copies to: ELLIE TORRES [facility] [employer] Other XR hip RT min 2V(w/wo pelvis)* Ordering Provider: ELLIE TORRES [facility] [employer] Other XR hip RT min 2V(w/wo pelvis)* Date of Service: 11/07/22 [employer] Other XR hip RT min 2V(w/wo pelvis)* XR/XR hip RT min 2V(w/wo pelvis)*: Right hip pain [employer] Other XR hip RT min 2V(w/wo pelvis)* Single view pelvis and 2 views of the right hip plain film [employer] Other XR hip RT min 2V(w/wo pelvis)* COMPARISON:None [employer] Other XR hip RT min 2V(w/wo pelvis)* HISTORY:Right hip pain for one year. [employer] Other XR hip RT min 2V(w/wo pelvis)* ACUTE FINDINGS:None [employer] Other XR hip RT min 2V(w/wo pelvis)* DEGENERATIVE CHANGE:Unremarkable [employer] Other XR hip RT min 2V(w/wo pelvis)* SOFT TISSUE FINDINGS:Unremarkable [employer] Other XR hip RT min 2V(w/wo pelvis)* JOINT EFFUSION:None [employer] Other XR hip RT min 2V(w/wo pelvis)* POSTOP CHANGES:None [employer] Other XR hip RT min 2V(w/wo pelvis)* BONY MINERALIZATION:Adequate [employer] Other XR hip RT min 2V(w/wo pelvis)* XR/XR hip RT min 2V(w/wo pelvis)* [employer] Other XR hip RT min 2V(w/wo pelvis)* IMPRESSION:Unremarkable exam [employer] Other XR hip RT min 2V(w/wo pelvis)* Impression dictated by: Juan Adair M.D.11/07/2022 11:54 AM [employer] Other XR hip RT min 2V(w/wo pelvis)* Dictation Location: [place] [address] [employer] Other XR hip RT min 2V(w/wo pelvis)* Transcribed By: PWS 11/07/22 [facility] [employer] Other XR hip RT min 2V(w/wo pelvis)* Dictated By: Juan Adair DO 11/07/22 [facility] [employer] Other XR hip RT min 2V(w/wo pelvis)* Signed By: [employer] Other XR hip RT min 2V(w/wo pelvis)* 11/07/22 [employer] Other XR hip RT min 2V(w/wo pelvis)* [facility] [place] [address] [place] [address] XRay Report Signed Patient: Mariana Kelly MR#: [id number] : 1970 Acct:[id number] Age/Sex: 51 / F ADM Date: 11/07/22 Loc: XDUCLY Room: Type: [facility] Attending Dr: Ellie AYALA Copies to: ELLIE [...] Juan Adair M.D.11/07/2022 11:54 AM Dictation Location: [facility] Transcribed By: [facility] 11/07/22 1154 Dictated By: Juan Adair DO 11/07/221152 Signed By: 11/07/22 115 Normal [facility] XR knee RT 4V*on 11-03-2022 XR knee RT 4V* [facility] [place] [address] [place] [address] XRay Report Signed Patient: Mariana Kelly MR#: [id number] : 1970 Acct:[id number] Age/Sex: 51 / F ADM Date: 11/03/22 Loc: XDUCLY Room: Type: [facility] Attending Dr: Susana LIZ Copies to: AGUSTO [...] Arianna Urena M.D.11/03/2022 2:56 PM Dictation Location: [facility] Transcribed By: SUKHDEV 11/03/22 1456 Dictated By: Arianna Urena MD 11/03/22 1454 Signed By: 11/03/22 1456 Normal [facility] XR knee RT 4V* [facility] [employer] Other XR knee RT 4V* [facility] Main [facility] [employer] Other XR knee RT 4V* [address] [facility] [employer] Other XR knee RT 4V* [place] [address] No rt [place] Other XR knee RT 4V* XRay Report [employer] Other XR knee RT 4V* Signed [employer] Other XR knee RT 4V* Patient: Genevieve Kelly MR#: [id number] [employer] [place] Other XR knee RT 4V* [address] [employer] Other XR knee RT 4V* : 1970 Acct:[id number] [employer] Other XR knee RT 4V* Age/Sex: 51 / F ADM Date: 11/03/22 [employer] Other XR knee RT 4V* Loc: XDUC Room: pe: [facility] [employer] Other XR knee RT 4V* Attending Dr: Susana LIZ [employer] Other XR knee RT 4V* Copies to: AGUSTO Aviles [employer] Other XR knee RT 4V* Ordering Provider: AGUSTO Hernández [employer] Other XR knee RT 4V* Date of Service: 11/03/22 [employer] Other XR knee RT 4V* XR/XR knee RT 4V*: Acute pain of right knee [employer] Other XR knee RT 4V* RIGHT KNEE - 4 views [employer] Other XR knee RT 4V* CLINICAL HISTORY: Ri ght knee pain for the past 2 weeks. No recent injury. [employer] Other XR knee RT 4V* COMPARISON: None [place] Other XR knee RT 4V* AP, lateral and both oblique views were obtained. There is no evidence of fracture or dislocation. [employer] Other XR knee RT 4V* No disproportionate joint space narrowing is present. There is minimal marginal spurring. Fluid [employer] Other XR knee RT 4V* is present at the suprapatellar bursa. [employer] Other XR knee RT 4V* X R/XR knee RT 4V* [employer] Other XR knee RT 4V* IMPRESSION: [employer] [facility] [employer] Other XR knee RT 4V* MINOR DEGENERATIVE CHANGE. [employer] Other XR knee RT 4V* JOINT EFFUSION. [employer] Other XR knee RT 4V* NO ACUTE BONY FINDINGS. [employer] Other XR knee RT 4V* Impression dictated by: Arianna Urena M.D.11/03/2022 2:56 PM [employer] Other XR knee RT 4V* Dictation Location: [facility]-- [employer] Other XR knee RT 4V* Transcribed By: SUKHDEV 11/03/22 [facility] [employer] Other XR knee RT 4V* Dictated By: Arianna Urena MD 11/03/22 [facility] [employer] Other XR knee RT 4V* Signed By: [employer] Other XR knee RT 4V* 11/03/22 [address] [employer] Other Albumin [Mass/volume] in Ser um or PlasmaOrdered By: PROVIDER TEMP on 10-08-2022 Albumin [Mass/Vol] 3.5 g/dL 3.2-5.5 [facility] B-Type Natriuretic Peptideon 10-08-2022 Natriuretic peptide B (Bld) [Mass/Vol] 15.0 pg/mL Normal 5-100 [facility] Comment on above: Result Comment: PERF ORMED BY: [place] [address] PATHOLOGIST [employer] JAZZY HIGGINS M.D. Performed By: #### C BC, CK, CKMB, HS TROP, BNP, CMP #### [facility] [address] [place] [address] [place] Basophils Auto (Bld) [#/Vol] Ordered By: PROVIDER TEMP on 10-08-2022 Basophils (Bld) [#/Vol] 0.1 10*3/uL 0.0-0.2 [facility] Basophils/100 WBC Auto (Bld) Ordered By: PROVIDER TEMP on 10-08-2022 Basophils/100 WBC (Bld) 0.6 % . [facility] Complete Blood Count Auto Di ffon 10-08-2022 Basophils (Bld) [#/Vol] 0.1 10*3/uL Normal 0.0-0.2 [facility] Comment on above: Result Comment: PERF ORMED BY: [facility] [address] [place] [address] PATHOLOGIST [employer] JAZZY HIGGINS M.D. Performed By: #### C BC, CK, CKMB, HS TROP, BNP, CMP #### [facility] [address] Basophils/100 WBC (Bld) 0.6 % Normal . [facility] Comment on above: Performed By: #### C BC, CK, CKMB, HS TROP, BNP, CMP #### [address] Eosinophils (Bld) [#/Vol] 0.2 10*3/uL Normal 0.0-0.45 [facility] Comment on above: Performed By: #### C BC, CK, CKMB, HS TROP, BNP, CMP #### [address] Eosinophils/100 WBC (Bld) 1.0 % Normal . [facility] Comment on above: Performed By: #### C BC, CK, CKMB, HS TROP, BNP, CMP #### [address] Erythrocyte distribution width (RBC) [Ratio] 13.9 % Normal 11.9-15.3 [facility] Comment on above: Performed By: #### C BC, CK, CKMB, HS TROP, BNP, CMP #### [address] Hematocrit (Bld) [Volume fraction] 45.1 % Normal 34.0-46.4 [facility] Comment on above: Performed By: #### C BC, CK, CKMB, HS TROP, BNP, CMP #### [address] Hemoglobin (Bld) [Mass/Vol] 14.9 g/dL Normal 11.8-15.4 [facility] Comment on above: Performed By: #### C BC, CK, CKMB, HS TROP, BNP, CMP #### [address] Lymphocytes (Bld) [#/Vol] 4.6 10*3/uL Normal 1.00-4.8 [facility] Comment on above: Performed By: #### C BC, CK, CKMB, HS TROP, BNP, CMP #### [address] Lymphocytes/100 WBC (Bld) 29.9 % Normal . [facility] Comment on above: Performed By: #### C BC, CK, CKMB, HS TROP, BNP, CMP #### [address] MCH (RBC) [Entitic mass] 30.8 pg Normal 24.7-34.3 [facility] Comment on above: Performed By: #### C BC, CK, CKMB, HS TROP, BNP, CMP #### [address] MCV (RBC) [Entitic vol] 93.5 fL Normal 80-100 [facility] Comment on above: Performed By: #### C BC, CK, CKMB, HS TROP, BNP, CMP #### [address] Mean Corpuscular HGB Conc 33.0 g/dL Normal 32.0-35.0 [facility] Comment on above: Performed By: #### C BC, CK, CKMB, HS TROP, BNP, CMP #### [address] Monocytes (Bld) [#/Vol] 1.1 10*3/uL High 0.0-0.8 [facility] Comment on above: Performed By: #### C BC, CK, CKMB, HS TROP, BNP, CMP #### [address] Monocytes/100 WBC (Bld) 15.04 % Normal 0.00-20.00 [facility] Comment on above: Performed By: #### C BC, CK, CKMB, HS TROP, BNP, CMP #### [address] Monocytes/100 WBC (Bld) 7.1 % Normal . [facility] Comment on above: Performed By: #### C BC, CK, CKMB, HS TROP, BNP, CMP #### [address] Neutrophils (Bld) [#/Vol] 9.5 10*3/uL High 1.8-7.7 [facility] Comment on above: Performed By: #### C BC, CK, CKMB, HS TROP, BNP, CMP #### [address] Neutrophils/100 WBC (Bld) 61.4 % Normal . [facility] Comment on above: Performed By: #### C BC, CK, CKMB, HS TROP, BNP, CMP #### [facility] [address] NRBC% 0.1 /100{WBC} Normal 0-0.5 [facility] Comment on above: Performed By: #### C BC, CK, CKMB, HS TROP, BNP, CMP #### [address] Platelet mean volume (Bld) [Entitic vol] 7.1 fL Normal 6.3-10.7 [facility] Comment on above: Performed By: #### C BC, CK, CKMB, HS TROP, BNP, CMP #### [address] Platelets (Bld) [#/Vol] 357 10*3/uL Normal 150-450 [facility] Comment on above: Performed By: #### C BC, CK, CKMB, HS TROP, BNP, CMP #### [address] RBC (Bld) [#/Vol] 4.83 10*6/uL Normal 3.60-5.00 [facility] Comment on above: Performed By: #### C BC, CK, CKMB, HS TROP, BNP, CMP #### [address] WBC (Bld) [#/Vol] 15.5 10*3/uL High 3.8-11.6 [facility] Comment on above: Performed By: #### C BC, CK, CKMB, HS TROP, BNP, CMP #### [address] Comprehensive Metabolic Pane dread 10-08-2022 Albumin [Mass/Vol] 3.5 g/dL Normal 3.2-5.5 [facility] Comment on above: Performed By: #### C BC, CK, CKMB, HS TROP, BNP, CMP #### [address] Albumin/Globulin [Mass ratio] 1.1 {ratio} Normal [facility] Comment on above: Performed By: #### C BC, CK, CKMB, HS TROP, BNP, CMP #### [address] ALP [Catalytic activity/Vol] 76 U/L Normal 32-92 [facility] Comment on above: Performed By: #### C BC, CK, CKMB, HS TROP, BNP, CMP #### [address] ALT [Catalytic activity/Vol] 22 U/L Normal 10-60 [facility] Comment on above: Performed By: #### C BC, CK, CKMB, HS TROP, BNP, CMP #### [address] Anion gap [Moles/Vol] 10.6 mmol/L Normal 6.0-15.0 [facility] Comment on above: Performed By: #### C BC, CK, CKMB, HS TROP, BNP, CMP #### [address] AST [Catalytic activity/Vol] 14 U/L Normal 10-42 [facility] Comment on above: Performed By: #### C BC, CK, CKMB, HS TROP, BNP, CMP #### [address] Bilirubin [Mass/Vol] 0.5 mg/dL Normal 0.3-1.2 [facility] Comment on above: Performed By: #### C BC, CK, CKMB, HS TROP, BNP, CMP #### [address] Calcium [Mass/Vol] 8.5 mg/dL Normal 8.2-10.2 [facility] Comment on above: Performed By: #### C BC, CK, CKMB, HS TROP, BNP, CMP #### [address] Chloride [Moles/Vol] 101 mmol/L Normal 95-114 [facility] Comment on above: Performed By: #### C BC, CK, CKMB, HS TROP, BNP, CMP #### [address] CO2 [Moles/Vol] 26.8 mmol/L Normal 22.0-30.0 [facility] Comment on above: Performed By: #### C BC, CK, CKMB, HS TROP, BNP, CMP #### [address] Creatinine [Mass/Vol] 0.89 mg/dL Normal 0.44-1.03 [facility] Comment on above: Performed By: #### C BC, CK, CKMB, HS TROP, BNP, CMP #### [address] Creatinine Clr Calc Pharmacy 91.28 [facility] Comment on above: Result Comment: PERF ORMED BY: [place] [address] PATHOLOGIST [employer] JAZZY HIGGINS M.D. Performed By: #### C BC, CK, CKMB, HS TROP, BNP, CMP #### [address] Estimated GFR ( Dorcas > 60 [facility] Comment on above: Result Comment: GFR estimated reference range: According to KDOQI guidelines, <60 ml/min/1.73m2 is sufficient to diagnose a patient with chronic kidney disease. Performed By: #### C BC, CK, CKMB, HS TROP, BNP, CMP #### [address] Estimated GFR (Non- Am > 60 [facility] Comment on above: Performed By: #### C BC, CK, CKMB, HS TROP, BNP, CMP #### [address] [address] [place] Globulin (S) [Mass/Vol] 3.1 g/dL Normal [facility] Comment on above: Performed By: #### C BC, CK, CKMB, HS TROP, BNP, CMP #### [facility] [address] Glucose [Mass/Vol] 112 mg/dL High 70-100 [facility] Comment on above: Result Comment: [place] Glucose Reference Range is dependent on time and content of last meal. Glucose of more than 200 mg/dL in a nonstressed, ambulatory subject supports the diagnosis of Diabetes Mellitus. ADA recommended reference range Performed By: #### C BC, CK, CKMB, HS TROP, BNP, CMP #### [address] Potassium [Moles/Vol] 3.4 mmol/L Low 3.5-5.1 [facility] Comment on above: Performed By: #### C BC, CK, CKMB, HS TROP, BNP, CMP #### [address] Protein [Mass/Vol] 6.6 g/dL Normal 6.1-7.9 [facility] Comment on above: Performed By: #### C BC, CK, CKMB, HS TROP, BNP, CMP #### [address] Sodium [Moles/Vol] 135 mmol/L Low 136-146 [facility] Comment on above: Performed By: #### C BC, CK, CKMB, HS TROP, BNP, CMP #### [place] [address] [place] Urea nitrogen [Mass/Vol] 13 mg/dL Normal 9-23 [facility] Comment on above: Performed By: #### C BC, CK, CKMB, HS TROP, BNP, CMP #### [address] Creatine Kinaseon 10-08-2022 CK [Catalytic activity/Vol] 65 U/L Normal 22-269 [facility] Comment on above: Performed By: #### C BC, CK, CKMB, HS TROP, BNP, CMP #### [facility] [address] [place] [address] [place] Creatine kinase [Enzymatic a ctivity/volume] in Serum or PlasmaOrdered By: PROVIDER TEMP on 10-08-2022 CK [Catalytic activity/Vol] 65 U/L 22-269 [facility] Creatinine Kinase MBon 10-08 CK.MB [Mass/Vol] 1.2 ng/mL Normal 0.6-6.3 [facility] Comment on above: Performed By: #### C BC, CK, CKMB, HS TROP, BNP, CMP #### [facility] [address] CKMB Relative Index 1.8 % Normal 0.00-2.50 [facility] Comment on above: Performed By: #### C BC, CK, CKMB, HS TROP, BNP, CMP #### [facility] [address] Creatinine and Glomerular fi ltration rate.predicted panel (S/P/Bld)Ordered By: PROVIDER TEMP on 10-08-2022 Creatinine [Mass/Vol] 0.89 mg/dL 0.44-1.03 [facility] Eosinophils Auto (Bld) [#/Vo l]Ordered By: PROVIDER TEMP on 10-08-2022 Eosinophils (Bld) [#/Vol] 0.2 10*3/uL 0.0-0.45 [facility] Eosinophils/100 WBC Auto (Bl d)Ordered By: PROVIDER TEMP on 10-08-2022 Eosinophils/100 WBC (Bld) 1.0 % . [facility] Erythrocyte distribution wid th Auto (RBC) [Ratio]Ordered By: PROVIDER TEMP on 10-08-2022 Erythrocyte distribution width (RBC) [Ratio] 13.9 % 11.9-15.3 [facility] Estimated glomerular filtrat ion rate (GFR) non- AmericanOrdered By: PROVIDER TEMP on 10-08-2022 GFR/1.73 sq M.predicted among non-blacks MDRD (S/P/Bld) [Vol rate/Area] > 60 mL/Min [facility] Globulin Calc (S) [Mass/Vol] Ordered By: PROVIDER TEMP on 10-08-2022 Globulin (S) [Mass/Vol] 3.1 g/dL [facility] Hematocrit Auto (Bld) [Volum e fraction]Ordered By: PROVIDER TEMP on 10-08-2022 Hematocrit (Bld) [Volume fraction] 45.1 % 34.0-46.4 [facility] Hemoglobin [Mass/volume] in BloodOrdered By: PROVIDER TEMP on 10-08-2022 Hemoglobin (Bld) [Mass/Vol] 14.9 g/dL 11.8-15.4 [facility] Laboratory - Chemistry and C hemistry - challengeOrdered By: Edie Bolton on 10-08-2022 Natriuretic peptide B (Bld) [Mass/Vol] 15.0 pg/mL 5-100 [facility] Leukocytes [#/volume] correc aleksey for nucleated erythrocytes in Blood by Automated counOrdered By: PROVIDER TEMP on 10-08-2022 WBC corrected for nucl RBC Auto (Bld) [#/Vol] 15.5 10*3/uL 3.8-11.6 [facility] Lymphocytes Auto (Bld) [#/Vo l]Ordered By: PROVIDER TEMP on 10-08-2022 Lymphocytes (Bld) [#/Vol] 4.6 10*3/uL 1.00-4.8 [facility] Lymphocytes/100 WBC Auto (Bl d)Ordered By: PROVIDER TEMP on 10-08-2022 Lymphocytes/100 WBC (Bld) 29.9 % . [facility] MCH Auto (RBC) [Entitic mass ]Ordered By: PROVIDER TEMP on 10-08-2022 MCH (RBC) [Entitic mass] 30.8 pg 24.7-34.3 [facility] MCHC Auto (RBC) [Mass/Vol]Or dered By: PROVIDER TEMP on 10-08-2022 MCHC (RBC) [Mass/Vol] 33.0 g/dL 32.0-35.0 [facility] MCV Auto (RBC) [Entitic vol] Ordered By: PROVIDER TEMP on 10-08-2022 MCV (RBC) [Entitic vol] 93.5 fL 80-100 [facility] Monocyte distribution width [Entitic volume] in Blood by AutomatedOrdered By: PROVIDER TEMP on 10-08-2022 Monocyte distribution width Auto (Bld) [Entitic vol] 15.04 % 0.00-20.00 [facility] Monocytes Auto (Bld) [#/Vol] Ordered By: PROVIDER TEMP on 10-08-2022 Monocytes (Bld) [#/Vol] 1.1 10*3/uL 0.0-0.8 [facility] Monocytes/100 WBC Auto (Bld) Ordered By: PROVIDER TEMP on 10-08-2022 Monocytes/100 WBC (Bld) 7.1 % . [facility] Neutrophils Auto (Bld) [#/Vo l]Ordered By: PROVIDER TEMP on 10-08-2022 Neutrophils (Bld) [#/Vol] 9.5 10*3/uL 1.8-7.7 [facility] Neutrophils/100 WBC Auto (Bl d)Ordered By: PROVIDER TEMP on 10-08-2022 Neutrophils/100 WBC (Bld) 61.4 % . [facility] No Panel InformationOrdered By: PROVIDER TEMP on 10-08-2022 Estimated GFR () > 60 mL/Min [facility] Comment on above: GFR estimated refere nce range: According to KDOQI guidelines, <60 ml/min/1.73m2 is sufficient to diagnose a patient with chronic kidney disease. Pharmacy Creatinine Clearance (Chem 91.28 [facility] Nucleated erythrocytes [Pres ence] in Blood by Automated countOrdered By: PROVIDER TEMP on 10-08-2022 Nucleated RBC Auto Ql (Bld) 0.1 /100{WBC} 0-0.5 [facility] Platelet mean volume Auto (B ld) [Entitic vol]Ordered By: PROVIDER TEMP on 10-08-2022 Platelet mean volume (Bld) [Entitic vol] 7.1 fL 6.3-10.7 [facility] Platelets Auto (Bld) [#/Vol] Ordered By: PROVIDER TEMP on 10-08-2022 Platelets (Bld) [#/Vol] 357 10*3/uL 150-450 [facility] Protein [Mass/volume] in Ser um or PlasmaOrdered By: PROVIDER TEMP on 10-08-2022 Protein [Mass/Vol] 6.6 g/dL 6.1-7.9 [facility] RBC Auto (Bld) [#/Vol]Ordere d By: PROVIDER TEMP on 10-08-2022 RBC (Bld) [#/Vol] 4.83 10*6/uL 3.60-5.00 [facility] Serum or plasma alanine blanco otransferase measurement without P-5'-P (enzymatic activiOrdered By: PROVIDER TEMP on 10-08-2022 ALT No additional P-5'-P [Catalytic activity/Vol] 22 U/L 10-60 [facility] Serum or plasma albumin/glob ulin mass ratioOrdered By: PROVIDER TEMP on 10-08-2022 Albumin/Globulin [Mass ratio] 1.1 {ratio} [facility] Serum or plasma alkaline shyla sphatase measurement (enzymatic activity/volume)Ordered By: PROVIDER TEMP on 10-08-2022 ALP [Catalytic activity/Vol] 76 U/L 32-92 [facility] Serum or plasma anion gap de terminationOrdered By: PROVIDER TEMP on 10-08-2022 Anion gap [Moles/Vol] 10.6 mmol/L 6.0-15.0 [facility] Serum or plasma aspartate am inotransferase measurement (enzymatic activity/volume)Ordered By: PROVIDER TEMP on 10-08-2022 AST [Catalytic activity/Vol] 14 U/L 10-42 [facility] Serum or plasma calcium rocío urement (mass/volume)Ordered By: PROVIDER TEMP on 10-08-2022 Calcium [Mass/Vol] 8.5 mg/dL 8.2-10.2 [facility] Serum or plasma chloride martin surement (moles/volume)Ordered By: PROVIDER TEMP on 10-08-2022 Chloride [Moles/Vol] 101 mmol/L 95-114 [facility] Serum or plasma creatine kin ase MB (CKMB)/total creatine kinase (CK) ratio by calculaOrdered By: PROVIDER TEMP on 10-08-2022 CK.MB Calc [Catalytic fraction] 1.8 % 0.00-2.50 [facility] Serum or plasma creatine kin ase MB measurement (mass/volume)Ordered By: PROVIDER TEMP on 10-08-2022 CK.MB [Mass/Vol] 1.2 ng/mL 0.6-6.3 [facility] Serum or plasma glucose rocío urement (mass/volume)Ordered By: PROVIDER TEMP on 10-08-2022 Glucose [Mass/Vol] 112 mg/dL 70-100 [facility] Comment on above: ADA recommended refe rence rangeRandom Glucose Reference Range is dependent on time and content of last meal. Glucose of more than 200 mg/dL in a nonstressed, ambulatory subject supports the diagnosis of Diabetes Mellitus. Serum or plasma potassium me asurement (moles/volume)Ordered By: PROVIDER TEMP on 10-08-2022 Potassium [Moles/Vol] 3.4 mmol/L 3.5-5.1 [facility] Serum or plasma sodium measu rement (moles/volume)Ordered By: PROVIDER TEMP on 10-08-2022 Sodium [Moles/Vol] 135 mmol/L 136-146 [facility] Serum or plasma total biliru bin measurement (mass/volume)Ordered By: PROVIDER TEMP on 10-08-2022 Bilirubin [Mass/Vol] 0.5 mg/dL 0.3-1.2 [facility] Serum or plasma total carbon dioxide measurement (moles/volume)Ordered By: PROVIDER TEMP on 10-08-2022 CO2 [Moles/Vol] 26.8 mmol/L 22.0-30.0 [facility] Serum or plasma urea nitroge n measurement (mass/volume)Ordered By: PROVIDER TEMP on 10-08-2022 Urea nitrogen [Mass/Vol] 13 mg/dL 9-23 [facility] Troponin I High Sensitivityo n 10-08-2022 Troponin I High Sensitivity 3 pg/mL Normal 0-15 [facility] Comment on above: Result Comment: PERF ORMED BY: [facility] [address] [place] [address] PATHOLOGIST [employer]LIST JAZZY HIGGINS M.D. Performed By: #### C BC, CK, CKMB, HS TROP, BNP, CMP #### [place] [id number] [facility] Troponin I.cardiac [Mass/vol ume] in Serum or Plasma by High sensitivity methodOrdered By: PROVIDER TEMP on 10-08-2022 Troponin I.cardiac High sensitivity method [Mass/Vol] 3 pg/mL 0-15 [facility] WBC Auto (Bld) [#/Vol]Ordere d By: PROVIDER TEMP on 10-08-2022 WBC (Bld) [#/Vol] 15.5 10*3/uL 3.8-11.6 [facility] XR chest 2V*on 10-08-2022 XR chest 2V* [facility] [place] [address] XRay Report Signed Patient: Mariana Kelly MR#: [id number] : 1970 Acct:[id number] Age/Sex: 51 / F ADM Date: 10/08/22 Loc: ER Room: Type: [facility] ER Attending Dr: Copies to: Edie [...] Juan Adair M.D.10/08/2022 8:09 PM Dictation Location: [place] [address] Transcribed By: [facility] 10/08/222008 Dictated By: Juan Adair DO 10/08/222006 Signed By: 10/08/222008 Normal [facility] XR chest 2V*on 10-01-2022 XR chest 2V* [facility] Main [address] [address] XRay Report Signed Patient: Mariana Kelly MR#: [id number] : 1970 Acct:[id number] Age/Sex: 51 / F ADM Date: 10/01/22 Loc: XDCLY Room: Type: [facility] Attending Dr: Ellie AYALA Copies to: ELLIE [...] Taylor Jr., D.O.10/01/2022 3:33 PM Dictation Location: [facility] Transcribed By: [facility] 10/01/22 1533 Dictated By: Brice Taylor Jr, DO 10/01/22 1532 Signed By: 10/01/22 1533 Normal [facility] XR chest 2V* [facility] [employer] Other XR chest 2V* [facility] Main [facility] [employer] Other XR chest 2V* 1111 [facility] [employer] Other XR chest 2V* [place] [address] [facility] [employer] Other XR chest 2V* XRay Report [facility] [employer] Other XR chest 2V* Signed [facility] [employer] Other XR chest 2V* Patient: Genevieve Kelly MR#: [id number] [facility] [employer] Other XR chest 2V* 3649 [facility] [employer] Other XR chest 2V* : 1970 Acct:[id number] [employer] Other XR chest 2V* Age/Sex: 51 / F ADM Date: 10/01/22 [employer] Other XR chest 2V* Loc: XDCLY [facility] [employer] Other XR [facility] 2V* Attending Dr: Emery Torres [facility] [employer] Other XR chest 2V* Copies to: [facility] [employer] Other XR chest 2V* Ordering Provider: ELLIE TORRES [facility] [employer] Other XR chest 2V* Date of Service: 10/01/22 [employer] Other XR chest 2V* XR/XR chest 2V*: COUGH [employer] Other XR chest 2V* Chest 2 views [employer] [facility] [employer] Other XR chest 2V* CLINICAL HISTORY: Dr arteaga cough, hoarseness, shortness of breath, wheezing, upper middle back pain for 3 [employer] Other XR chest 2V* weeks. [employer] Other XR chest 2V* COMPARISON: None [employer] Other XR chest 2V* FINDINGS: [employer] Other XR chest 2V* Heart normal in size . Mild left lower lobe linear atelectasis/scarring. No consolidation [employer] Other XR chest 2V* pneumothorax pleural effusion or free air. [employer] Other XR chest 2V* X R/XR chest 2V* [employer] Other XR chest 2V* IMPRESSION: [employer] Other XR chest 2V* MILD LEFT LOWER LOBE LINEAR ATELECTASIS/SCARRING. NO CONSOLIDATION TO SUGGEST PNEUMONIA. [employer] Other XR chest 2V* Impression dictated by: Brice Taylor Jr., D.O.10/01/2022 3:33 PM [employer] Other XR chest 2V* Dictation Location: [facility]IO-PC-14 [employer] Other XR chest 2V* Transcribed By: PWS 10/01/22 [facility] [employer] Other XR chest 2V* Dictated By: Brice Taylor Jr, DO 10/01/22 [facility] [employer] Other XR chest 2V* Signed By: [employer] Other XR chest 2V* 10/01/22 [facility] [employer] Other A1C HEMOGLOBINon 09-30-2022 HbA1c (Bld) [Mass fraction] 6.1 % [employer] Other HbA1c (Bld) [Mass fraction]o n 09-30-2022 A1C HEMOGLOBIN [employer] Other PROF CHEM 8 (BAS METB)on Anion gap [Moles/Vol] 17.9 mmol/L Normal [facility] Comment on above: Performed By: #### B MP #### [facility] [address] [place] [address] [address] Isabel Wolfe Calcium [Mass/Vol] 9.1 mg/dL Normal 8.5-10.1 [facility] Comment on above: Performed By: #### B MP #### [facility] [address] [place] [address] [address] Isabel Wolfe Chloride [Moles/Vol] 103 mmol/L Normal 98-107 [facility] Comment on above: Performed By: #### B MP #### [facility] [address] [place] [address] [address] Isabel Wolfe CO2 [Moles/Vol] 22.9 mmol/L Normal 21.0-32.0 [facility] Comment on above: Performed By: #### B MP #### [facility] [address] [place] [address] [address] Isabel Wolfe Creatinine [Mass/Vol] 0.92 mg/dL Normal 0.55-1.02 [facility] Comment on above: Performed By: #### B MP #### [facility] [address] [place] [address] [address] Isabel Wolfe EGFR-AF STATELESS >60 Normal >=60 [facility] Comment on above: Performed By: #### B MP #### [facility] [address] [place] [address] [address] Isabel Wolfe EGFR-NON AF STATELESS >60 Normal >=60 [facility] Comment on above: Performed By: #### B MP #### [facility] [address] [place] [address] [address] Isabel Wolfe Glucose [Mass/Vol] 178 mg/dL Critically high 74-106 T [facility] Comment on above: Performed By: #### B MP #### [facility] [address] [place] [address] [address] Isabel Wolfe Potassium [Moles/Vol] 3.8 mmol/L Normal 3.5-5.1 [facility] Comment on above: Performed By: #### B MP #### [facility] [address] [place] [address] [address] Isabel Wolfe Sodium [Moles/Vol] 140 mmol/L Normal 136-145 [facility] Comment on above: Performed By: #### B MP #### [facility] [address] [place] [address] [address] Isabel Wolfe Urea nitrogen [Mass/Vol] 11.0 mg/dL Normal 7.0-18.0 [facility] Comment on above: Performed By: #### B MP #### [facility] [address] [place] [address] [address] Isabel Wolfe Urea nitrogen/Creatinine [Mass ratio] 12.0 mg/mg Normal [facility] Comment on above: Performed By: #### B MP #### [facility] [address] [place] [address] [address] Isabel Wolfe COVID + FLU Quick Testingon 09-20-2022 SARS-CoV-2 (COVID-19) RNA PIPER+probe Ql (Unsp spec) Negative [employer] Other COVID + FLU Quick Testing Negative [employer] Other Quick Strepon 09-20-2022 S. pyogenes Org specific cx Ql (Throat) Negative [employer] [facility] [employer] Other Quick Strep [employer] [facility] [employer] Other Automated erythrocytes count in urine sediment (number/area)Ordered By: Reinaldo Mehta on 09-10-2022 RBC Auto (Urine sed) [#/Area] 1-2 [HPF] 0-4 [facility] Automated leukocytes count i n urine sediment (number/area)Ordered By: Reinaldo Mehta on 09-10-2022 WBC Auto (Urine sed) [#/Area] 3-4 [HPF] 0-4 [facility] Basic Metabolic Panelon 08-30 Anion gap [Moles/Vol] 15.1 mmol/L High 6.0-15.0 [facility] Comment on above: Performed By: #### H EPATIC, CBC, PT, BMP, LIPASE ####[facility] [id number] [place] [id number] [facility] Calcium [Mass/Vol] 9.2 mg/dL Normal 8.2-10.2 [facility] Comment on above: Performed By: #### H EPATIC, CBC, PT, BMP, LIPASE ####[facility] [id number] [place] [address] [facility] Chloride [Moles/Vol] 101 mmol/L Normal 95-114 [facility] Comment on above: Performed By: #### H EPATIC, CBC, PT, BMP, LIPASE ####[facility] [id number] [place] [id number] [facility] CO2 [Moles/Vol] 23.8 mmol/L Normal 22.0-30.0 [facility] Comment on above: Performed By: #### H EPATIC, CBC, PT, BMP, LIPASE ####[place] [id number] Creatinine [Mass/Vol] 0.84 mg/dL Normal 0.44-1.03 [facility] Comment on above: Performed By: #### H EPATIC, CBC, PT, BMP, LIPASE ####[address] Creatinine Clr Calc Pharmacy 101.87 [facility] Comment on above: Performed By: #### H EPATIC, CBC, PT, BMP, LIPASE ####[address] Estimated GFR ( Dorcas > 60 [facility] Comment on above: Result Comment: GFR estimated reference range: According to KDOQI guidelines, <60 ml/min/1.73m2 is sufficient to diagnose a patient with chronic kidney disease. Performed By: #### H EPATIC, CBC, PT, BMP, LIPASE ####[address] Estimated GFR (Non- Am > 60 [facility] Comment on above: Performed By: #### H EPATIC, CBC, PT, BMP, LIPASE ####[address] Glucose [Mass/Vol] 91 mg/dL Normal 70-100 [facility] Comment on above: Result Comment: [facility] Glucose Reference Range is dependent on time and content of last meal. Glucose of more than 200 mg/dL in a nonstressed, ambulatory subject supports the diagnosis of Diabetes Mellitus. ADA recommended reference range Performed By: #### H EPATIC, CBC, PT, BMP, LIPASE ####[address] Potassium [Moles/Vol] 2.9 mmol/L Off scale low 3.5-5.1 [facility] Comment on above: Result Comment: Results called at 1921 on 09/10/22 Performed By: #### H EPATIC, CBC, PT, BMP, LIPASE ####[facility] [id number] Sodium [Moles/Vol] 137 mmol/L Normal 136-146 [facility] Comment on above: Performed By: #### H EPATIC, CBC, PT, BMP, LIPASE ####[facility] [id number] Urea nitrogen [Mass/Vol] 10 mg/dL Normal 9-23 [facility] Comment on above: Performed By: #### H EPATIC, CBC, PT, BMP, LIPASE ####[facility] [id number] Basophils Auto (Bld) [#/Vol] Ordered By: Reinaldo Mehta on 09-10-2022 Basophils (Bld) [#/Vol] 0.1 10*3/uL 0.0-0.2 [facility] Basophils/100 WBC Auto (Bld) Ordered By: Reinaldo Mehta on 09-10-2022 Basophils/100 WBC (Bld) 0.6 % . [facility] Bilirubin Test strip Ql (U)O rdered By: Reinaldo Mehta on 09-10-2022 Bilirubin Ql (U) Negative Negative [facility] Body fluid albumin measureme nt (mass/volume)Ordered By: Reinaldo Mehta on 09-10-2022 Albumin (Body fld) [Mass/Vol] 3.6 g/dL 3.2-5.5 [facility] CT abdomen pelvis w conon CT abdomen pelvis w con [facility] [place] [address] CT Scan Report Signed Patient: Mariana Kelly MR#: [id number] : 1970 Acct:[id number] Age/Sex: 51 / F ADM Date: 09/10/22 Loc: ER Room: Type: [facility] ER Attending Dr: Copies to: Reinaldo [...] Juan Adair M.D.09/10/2022 8:05 PM Dictation Location: [place] [address] Transcribed By: [facility] 09/10/222004 Dictated By: Juan Adair DO 09/10/222001 Signed By: 09/10/222004 Normal [facility] Color Auto (U)Ordered By: Shady Mehta on 09-10-2022 Color (U) Yellow Yellow [facility] Complete Blood Count Auto Di ffon 09-10-2022 Basophils (Bld) [#/Vol] 0.1 10*3/uL Normal 0.0-0.2 [facility] Comment on above: Result Comment: PERF ORMED BY: [facility] [address] [place] [address] PATHOLOGIST HAIR STYLIST JAZZY HIGGINS M.D. Performed By: #### H EPATIC, CBC, PT, BMP, LIPASE ####[facility] [id number] [place] [id number] [facility] Basophils/100 WBC (Bld) 0.6 % Normal . [facility] Comment on above: Performed By: #### H EPATIC, CBC, PT, BMP, LIPASE ####[address] Eosinophils (Bld) [#/Vol] 0.2 10*3/uL Normal 0.0-0.45 [facility] Comment on above: Performed By: #### H EPATIC, CBC, PT, BMP, LIPASE ####[address] Eosinophils/100 WBC (Bld) 1.6 % Normal . [facility] Comment on above: Performed By: #### H EPATIC, CBC, PT, BMP, LIPASE ####[address] Erythrocyte distribution width (RBC) [Ratio] 13.6 % Normal 11.9-15.3 [facility] Comment on above: Performed By: #### H EPATIC, CBC, PT, BMP, LIPASE ####[address] Hematocrit (Bld) [Volume fraction] 40.7 % Normal 34.0-46.4 [facility] Comment on above: Performed By: #### H EPATIC, CBC, PT, BMP, LIPASE ####[address] Hemoglobin (Bld) [Mass/Vol] 13.5 g/dL Normal 11.8-15.4 [facility] Comment on above: Performed By: #### H EPATIC, CBC, PT, BMP, LIPASE ####[address] Lymphocytes (Bld) [#/Vol] 3.5 10*3/uL Normal 1.00-4.8 [facility] Comment on above: Performed By: #### H EPATIC, CBC, PT, BMP, LIPASE ####[address] Lymphocytes/100 WBC (Bld) 29.7 % Normal . [facility] Comment on above: Performed By: #### H EPATIC, CBC, PT, BMP, LIPASE ####[address] MCH (RBC) [Entitic mass] 30.5 pg Normal 24.7-34.3 [facility] Comment on above: Performed By: #### H EPATIC, CBC, PT, BMP, LIPASE ####[address] MCV (RBC) [Entitic vol] 91.9 fL Normal 80-100 [facility] Comment on above: Performed By: #### H EPATIC, CBC, PT, BMP, LIPASE ####[address] Mean Corpuscular HGB Conc 33.2 g/dL Normal 32.0-35.0 [facility] Comment on above: Performed By: #### H EPATIC, CBC, PT, BMP, LIPASE ####[address] Monocytes (Bld) [#/Vol] 0.8 10*3/uL Normal 0.0-0.8 [facility] Comment on above: Performed By: #### H EPATIC, CBC, PT, BMP, LIPASE ####[address] Monocytes/100 WBC (Bld) 18.22 % Normal 0.00-20.00 [facility] Comment on above: Performed By: #### H EPATIC, CBC, PT, BMP, LIPASE ####[address] Monocytes/100 WBC (Bld) 6.7 % Normal . [facility] Comment on above: Performed By: #### H EPATIC, CBC, PT, BMP, LIPASE ####[address] Neutrophils (Bld) [#/Vol] 7.2 10*3/uL Normal 1.8-7.7 [facility] Comment on above: Performed By: #### H EPATIC, CBC, PT, BMP, LIPASE ####[address] Neutrophils/100 WBC (Bld) 61.4 % Normal . [facility] Comment on above: Performed By: #### H EPATIC, CBC, PT, BMP, LIPASE ####[address] NRBC% 0.0 /100{WBC} Normal 0-0.5 [facility] Comment on above: Performed By: #### H EPATIC, CBC, PT, BMP, LIPASE ####[address] Platelet mean volume (Bld) [Entitic vol] 7.7 fL Normal 6.3-10.7 [facility] Comment on above: Performed By: #### H EPATIC, CBC, PT, BMP, LIPASE ####[address] Platelets (Bld) [#/Vol] 367 10*3/uL Normal 150-450 [facility] Comment on above: Performed By: #### H EPATIC, CBC, PT, BMP, LIPASE ####[address] RBC (Bld) [#/Vol] 4.42 10*6/uL Normal 3.60-5.00 [facility] Comment on above: Performed By: #### H EPATIC, CBC, PT, BMP, LIPASE ####[address] WBC (Bld) [#/Vol] 11.7 10*3/uL High 3.8-11.6 [facility] Comment on above: Performed By: #### H EPATIC, CBC, PT, BMP, LIPASE ####[address] Creatinine and Glomerular fi ltration rate.predicted panel (S/P/Bld)Ordered By: Reinaldo Mehta on 09-10-2022 Creatinine [Mass/Vol] 0.84 mg/dL 0.44-1.03 [facility] Dipstick and Microscopicon 0 09-10-2022 Appearance (U) Clear Normal Clear [facility] Comment on above: Order Comment: Name Collection Type:: Clean-Voided Midstream Performed By: #### A DDONUAPLUS #### [facility] [address] [place] [address] [place] Bacteria,Urine None Seen Normal None Seen [facility] Comment on above: Order Comment: Name Collection Type:: Clean-Voided Midstream Performed By: #### A DDONUAPLUS #### [place] [address] [place] Bilirubin,Urine Negative Normal Negative [facility] Comment on above: Order Comment: Name Collection Type:: Clean-Voided Midstream Performed By: #### A DDONUAPLUS #### [facility] [address] [place] [address] [place] Color (U) Yellow Normal Yellow [facility] Comment on above: Order Comment: Name Collection Type:: Clean-Voided Midstream Performed By: #### A DDONUAPLUS #### [facility] [address] [place] [address] [place] Glucose Ql (U) Normal Normal Normal [facility] Comment on above: Order Comment: Name Collection Type:: Clean-Voided Midstream Performed By: #### A DDONUAPLUS #### [facility] [address] [place] [address] [place] Hyaline Casts,Urine 0-8 Normal 0-8 [facility] Comment on above: Order Comment: Name Collection Type:: Clean-Voided Midstream Result Comment: PERF ORMED BY: [place] [address] PATHOLOGIST HAIR STYLIST JAZZY HIGGINS M.D. Performed By: #### A DDONUAPLUS #### [facility] [address] [place] [address] [place] Ketones Ql (U) Trace High Negative [facility] Comment on above: Order Comment: Name Collection Type:: Clean-Voided Midstream Performed By: #### A DDONUAPLUS #### [facility] [address] Leukocyte esterase Test strip Ql (U) 1+ High Negative [facility] Comment on above: Order Comment: Name Collection Type:: Clean-Voided Midstream Performed By: #### A DDONUAPLUS #### [facility] [address] [place] [address] [place] Nitrite,Urine Negative Normal Negative [facility] Comment on above: Order Comment: Name Collection Type:: Clean-Voided Midstream Performed By: #### A DDONUAPLUS #### [address] Occult Blood,Urine Negative Normal Negative [facility] Comment on above: Order Comment: Name Collection Type:: Clean-Voided Midstream Result Comment: PERF ORMED BY: [place] [address] PATHOLOGIST HAIR STYLIST JAZZY HIGGINS M.D. Performed By: #### A DDONUAPLUS #### [facility] [address] [place] [address] [place] pH (U) 6.0 [pH] Normal 5.0-9.0 [facility] Comment on above: Order Comment: Name Collection Type:: Clean-Voided Midstream Performed By: #### A DDONUAPLUS #### [facility] [address] [place] [address] [place] Protein,Urine Trace High Negative [facility] Comment on above: Order Comment: Name Collection Type:: Clean-Voided Midstream Performed By: #### A DDONUAPLUS #### [facility] [address] [place] [address] [place] RBC,Urine 1-2 Normal 0-4 [facility] Comment on above: Order Comment: Name Collection Type:: Clean-Voided Midstream Performed By: #### A DDONUAPLUS #### [facility] [address] [place] [address] [place] Specificy [place],Urine 1.025 Normal 1.001-1.03 0 [facility] Comment on above: Order Comment: Name Collection Type:: Clean-Voided Midstream Performed By: #### A DDONUAPLUS #### [facility] [address] Squamous Epithelial Cell,Urine 1-2 Normal 0-2 [facility] Comment on above: Order Comment: Name Collection Type:: Clean-Voided Midstream Performed By: #### A DDONUAPLUS #### [facility] [address] Urobilinogen,Urine Normal Normal Normal [facility] Comment on above: Order Comment: Name Collection Type:: Clean-Voided Midstream Performed By: #### A DDONUAPLUS #### [facility] [address] WBC,Urine 3-4 Normal 0-4 [facility] Comment on above: Order Comment: Name Collection Type:: Clean-Voided Midstream Performed By: #### A DDONUAPLUS #### [facility] [address] [place] [address] Direct bilirubin measurement Ordered By: Reinaldo Mehta on 09-10-2022 Bilirubin.direct [Mass/Vol] 0.1 mg/dL 0.0-0.4 [facility] Eosinophils Auto (Bld) [#/Vo l]Ordered By: Reinaldo Mehta on 09-10-2022 Eosinophils (Bld) [#/Vol] 0.2 10*3/uL 0.0-0.45 [facility] Eosinophils/100 WBC Auto (Bl d)Ordered By: Reinaldo Mehta on 09-10-2022 Eosinophils/100 WBC (Bld) 1.6 % . [facility] Erythrocyte distribution wid th Auto (RBC) [Ratio]Ordered By: Reinaldo Mehta on 09-10-2022 Erythrocyte distribution width (RBC) [Ratio] 13.6 % 11.9-15.3 [facility] Estimated glomerular filtrat ion rate (GFR) non- AmericanOrdered By: Reinaldo Mehta on 09-10-2022 GFR/1.73 sq M.predicted among non-blacks MDRD (S/P/Bld) [Vol rate/Area] > 60 mL/Min [facility] Globulin Calc (S) [Mass/Vol] Ordered By: Reinaldo Mehta on 09-10-2022 Globulin (S) [Mass/Vol] 3.1 g/dL [facility] Hematocrit Auto (Bld) [Volum e fraction]Ordered By: Reinaldo Mehta on 09-10-2022 Hematocrit (Bld) [Volume fraction] 40.7 % 34.0-46.4 [facility] Hemoglobin [Mass/volume] in BloodOrdered By: Reinaldo Mehta on 09-10-2022 Hemoglobin (Bld) [Mass/Vol] 13.5 g/dL 11.8-15.4 [facility] Hepatic Panelon 09-10-2022 Albumin [Mass/Vol] 3.6 g/dL Normal 3.2-5.5 [facility] Comment on above: Performed By: #### H EPATIC, CBC, PT, BMP, LIPASE ####[place] [id number] [facility] Albumin/Globulin [Mass ratio] 1.2 {ratio} Normal [facility] Comment on above: Performed By: #### H EPATIC, CBC, PT, BMP, LIPASE ####[place] [id number] [place] [address] [facility] ALP [Catalytic activity/Vol] 89 U/L Normal 32-92 [facility] Comment on above: Performed By: #### H EPATIC, CBC, PT, BMP, LIPASE ####[address] [address] [facility] ALT [Catalytic activity/Vol] 16 U/L Normal 10-60 [facility] Comment on above: Performed By: #### H EPATIC, CBC, PT, BMP, LIPASE ####[address] [address] [facility] AST [Catalytic activity/Vol] 15 U/L Normal 10-42 [facility] Comment on above: Performed By: #### H EPATIC, CBC, PT, BMP, LIPASE ####[place] [id number] [facility] Bilirubin [Mass/Vol] 0.5 mg/dL Normal 0.3-1.2 [facility] Comment on above: Performed By: #### H EPATIC, CBC, PT, BMP, LIPASE ####[address] Bilirubin,Indirect 0.4 mg/dL Normal [facility] Comment on above: Performed By: #### H EPATIC, CBC, PT, BMP, LIPASE ####[address] Bilirubin.indirect [Mass/Vol] 0.1 mg/dL Normal 0.0-0.4 [facility] Comment on above: Performed By: #### H EPATIC, CBC, PT, BMP, LIPASE ####[address] Globulin (S) [Mass/Vol] 3.1 g/dL Normal [facility] Comment on above: Performed By: #### H EPATIC, CBC, PT, BMP, LIPASE ####[address] Protein [Mass/Vol] 6.7 g/dL Normal 6.1-7.9 [facility] Comment on above: Performed By: #### H EPATIC, CBC, PT, BMP, LIPASE ####[address] Ketones Auto test strip (U) [Mass/Vol]Ordered By: Reinaldo Mehta on 09-10-2022 Ketones (U) [Mass/Vol] Trace Negative [facility] - Chemistry and C hemistry - challengeOrdered By: Reinaldo Mehta on 09-10-2022 Lipase [Catalytic activity/Vol] 41.0 U/L 22-51 [facility] - CoagulationOrde red By: Reinaldo Mehta on 09-10-2022 PT Coag (PPP) [Time] 13.6 s 9.0-12.9 [facility] - UrinalysisOrder ed By: Reinaldo Mehta on 09-10-2022 Hyaline casts LM Ql (Urine sed) 0-8 [LPF] 0-8 [facility] Leukocytes [#/volume] correc aleksey for nucleated erythrocytes in Blood by Automated counOrdered By: Reinaldo Mehta on 09-10-2022 WBC corrected for nucl RBC Auto (Bld) [#/Vol] 11.7 10*3/uL 3.8-11.6 [facility] Lipaseon 09-10-2022 Lipase [Catalytic activity/Vol] 41.0 U/L Normal 22-51 [facility] Comment on above: Result Comment: PERF ORMED BY: [facility] [address] [place] [address] PATHOLOGIST HAIR STYLIST JAZZY HIGGINS M.D. Performed By: #### H EPATIC, CBC, PT, BMP, LIPASE ####[facility] [place] [address] [facility] Lymphocytes Auto (Bld) [#/Vo l]Ordered By: Reinaldo Mehta on 09-10-2022 Lymphocytes (Bld) [#/Vol] 3.5 10*3/uL 1.00-4.8 [facility] Lymphocytes/100 WBC Auto (Bl d)Ordered By: Reinaldo Mehta on 09-10-2022 Lymphocytes/100 WBC (Bld) 29.7 % . [facility] MCH Auto (RBC) [Entitic mass ]Ordered By: Reinaldo Mehta on 09-10-2022 MCH (RBC) [Entitic mass] 30.5 pg 24.7-34.3 [facility] MCHC Auto (RBC) [Mass/Vol]Or dered By: Reinaldo Mehta on 09-10-2022 MCHC (RBC) [Mass/Vol] 33.2 g/dL 32.0-35.0 [facility] MCV Auto (RBC) [Entitic vol] Ordered By: Reinaldo Mehta on 09-10-2022 MCV (RBC) [Entitic vol] 91.9 fL 80-100 [facility] Monocyte distribution width [Entitic volume] in Blood by AutomatedOrdered By: Reinaldo Mehta on 09-10-2022 Monocyte distribution width Auto (Bld) [Entitic vol] 18.22 % 0.00-20.00 [facility] Monocytes Auto (Bld) [#/Vol] Ordered By: Reinaldo Mehta on 09-10-2022 Monocytes (Bld) [#/Vol] 0.8 10*3/uL 0.0-0.8 [facility] Monocytes/100 WBC Auto (Bld) Ordered By: Reinaldo Mehta on 09-10-2022 Monocytes/100 WBC (Bld) 6.7 % . [facility] Neutrophils Auto (Bld) [#/Vo l]Ordered By: Reinaldo Mehta on 09-10-2022 Neutrophils (Bld) [#/Vol] 7.2 10*3/uL 1.8-7.7 [facility] Neutrophils/100 WBC Auto (Bl d)Ordered By: Reinaldo Mehta on 09-10-2022 Neutrophils/100 WBC (Bld) 61.4 % . [facility] Nitrite Test strip Ql (U)Ord ered By: Reinaldo Mehta on 09-10-2022 Nitrite Ql (U) Negative Negative [facility] No Panel InformationOrdered By: Reinaldo Mehta on 09-10-2022 Estimated GFR () > 60 mL/Min [facility] Comment on above: GFR estimated refere nce range: According to KDOQI guidelines, <60 ml/min/1.73m2 is sufficient to diagnose a patient with chronic kidney disease. Pharmacy Creatinine Clearance (Chem 101.87 [facility] Nucleated erythrocytes [Pres ence] in Blood by Automated countOrdered By: Reinaldo Mehta on 09-10-2022 Nucleated RBC Auto Ql (Bld) 0.0 /100{WBC} 0-0.5 [facility] Platelet mean volume Auto (B ld) [Entitic vol]Ordered By: Reinaldo Mehta on 09-10-2022 Platelet mean volume (Bld) [Entitic vol] 7.7 fL 6.3-10.7 [facility] Platelet poor plasma interna tional normalized ratio (INR) by coagulation assay (relatOrdered By: Reinaldo Mehta on 09-10-2022 INR Coag (PPP) [Relative time] 1.2 {INR} [facility] Comment on above: INR Therapeutic Rang [...] 09-10-2022 Platelets (Bld) [#/Vol] 367 10*3/uL 150-450 [facility] Protein Auto test strip (U) [Mass/Vol]Ordered By: Reinaldo Mehta on 09-10-2022 Protein (U) [Mass/Vol] Trace mg/dL Negative [facility] Protein [Mass/volume] in Ser um or PlasmaOrdered By: Reinaldo Mehta on 09-10-2022 Protein [Mass/Vol] 6.7 g/dL 6.1-7.9 [facility] Prothrombin Time INRon 09-10 INR Coag (PPP) [Relative time] 1.2 {INR} Normal [facility] Comment on above: Result Comment: INR [...] heart valves: 3 - 4.5 PERFORMED BY: [facility] [address] [place] [address] PATHOLOGIST HAIR STYLIST JAZZY HIGGINS M.D. Performed By: #### H EPATIC, CBC, PT, BMP, LIPASE ####[facility] [id number] [place] [id number] [facility] PT Coag (PPP) [Time] 13.6 s High 9.0-12.9 [facility] Comment on above: Performed By: #### H EPATIC, CBC, PT, BMP, LIPASE ####[facility] [id number] [place] [id number] [facility] RBC Auto (Bld) [#/Vol]Ordere d By: Reinaldo Mehta on 09-10-2022 RBC (Bld) [#/Vol] 4.42 10*6/uL 3.60-5.00 [facility] Serum or plasma alanine blanco otransferase measurement without P-5'-P (enzymatic activiOrdered By: Reinaldo Mehta on 09-10-2022 ALT No additional P-5'-P [Catalytic activity/Vol] 16 U/L 10-60 [facility] Serum or plasma albumin/glob ulin mass ratioOrdered By: Reinaldo Mehta on 09-10-2022 Albumin/Globulin [Mass ratio] 1.2 {ratio} [facility] Serum or plasma alkaline shyla sphatase measurement (enzymatic activity/volume)Ordered By: Reinaldo Mehta on 09-10-2022 ALP [Catalytic activity/Vol] 89 U/L 32-92 [facility] Serum or plasma anion gap de terminationOrdered By: Reinaldo Mehta on 09-10-2022 Anion gap [Moles/Vol] 15.1 mmol/L 6.0-15.0 [facility] Serum or plasma aspartate am inotransferase measurement (enzymatic activity/volume)Ordered By: Reinaldo Mehta on 09-10-2022 AST [Catalytic activity/Vol] 15 U/L 10-42 [facility] Serum or plasma calcium rocío urement (mass/volume)Ordered By: Reinaldo Mehta on 09-10-2022 Calcium [Mass/Vol] 9.2 mg/dL 8.2-10.2 [facility] Serum or plasma chloride martin surement (moles/volume)Ordered By: Reinaldo Mehta on 09-10-2022 Chloride [Moles/Vol] 101 mmol/L 95-114 [facility] Serum or plasma glucose rocío urement (mass/volume)Ordered By: Reinaldo Mehta on 09-10-2022 Glucose [Mass/Vol] 91 mg/dL 70-100 [facility] Comment on above: ADA recommended refe rence rangeRandom Glucose Reference Range is dependent on time and content of last meal. Glucose of more than 200 mg/dL in a nonstressed, ambulatory subject supports the diagnosis of Diabetes Mellitus. Serum or plasma non-glucuron idated bilirubin measurement (mass/volume)Ordered By: Reinaldo Mehta on 09-10-2022 Bilirubin.indirect [Mass/Vol] 0.4 mg/dL [facility] Serum or plasma potassium me asurement (moles/volume)Ordered By: Reinaldo Mehta on 01-12-2023 Potassium [Moles/Vol] 2.9 mmol/L 3.5-5.1 [facility] Comment on above: Results calledat 192 1 on 09/10/22 Serum or plasma sodium measu rement (moles/volume)Ordered By: Rienaldo Mehta on 09-10-2022 Sodium [Moles/Vol] 137 mmol/L 136-146 [facility] Serum or plasma total biliru bin measurement (mass/volume)Ordered By: Reinaldo Mehta on 09-10-2022 Bilirubin [Mass/Vol] 0.5 mg/dL 0.3-1.2 [facility] Serum or plasma total carbon dioxide measurement (moles/volume)Ordered By: Reinaldo Mehta on 09-10-2022 CO2 [Moles/Vol] 23.8 mmol/L 22.0-30.0 [facility] Serum or plasma urea nitroge n measurement (mass/volume)Ordered By: Reinaldo Mehta on 09-10-2022 Urea nitrogen [Mass/Vol] 10 mg/dL 9- [facility] Specific gravity Auto test s trip (U) [Rel density]Ordered By: Reinaldo Mehta on 09-10-2022 Specific gravity (U) [Rel density] 1.025 1.001-1.03 0 [facility] Squamous epithelial cells de tection in urine sediment by light microscopyOrdered By: Reinaldo Mehta on 09-10-2022 Epithelial cells.squamous LM Ql (Urine sed) 1-2 [HPF] 0-2 [facility] Urine bacteria detection by automated methodOrdered By: Reinaldo Mehta on 09-10-2022 Bacteria Auto Ql (U) None seen None Seen [facility] Urine clarity by refractomet ry automatedOrdered By: Reinaldo Mehta on 09-10-2022 Clarity Refractometry automated (U) Clear Clear [facility] Urine glucose measurement by automated test strip (mass/volume)Ordered By: Reinaldo Mehta on 09-10-2022 Glucose Auto test strip (U) [Mass/Vol] Normal mg/dL Normal [facility] Urine hemoglobin detection b y automated test stripOrdered By: Reinaldo Mehta on 09-10-2022 Hemoglobin Auto test strip Ql (U) Negative Negative [facility] Urine leukocyte esterase det ection by automated test stripOrdered By: Reinaldo Mehta on 09-10-2022 Leukocyte esterase Auto test strip Ql (U) 1+ Negative [facility] Urobilinogen Auto test strip (U) [Mass/Vol]Ordered By: Reinaldo Mehta on 09-10-2022 Urobilinogen (U) [Mass/Vol] Normal mg/dL Normal [facility] WBC Auto (Bld) [#/Vol]Ordere d By: Reinaldo Mehta on 09-10-2022 WBC (Bld) [#/Vol] 11.7 10*3/uL 3.8-11.6 [facility] pH Auto test strip (U)Ordere d By: Reinaldo Mehta on 09-10-2022 pH (U) 6.0 [pH] 5.0-9.0 [facility] COVID/FLU RT-PCRon SARS-CoV-2 (COVID-19) RNA PIPER+probe Ql (Unsp spec) Negative [employer] Other COVID/FLU RT-PCR Negative [facility] [employer] Other Quick Strepon 07-02-2022 S. pyogenes Org specific cx Ql (Throat) Negative [employer] [place] Other [employer] St[facility] [employer] Other FREE T4on 06-05-2022 Free T4 [Mass/Vol] 0.77 ng/dL Normal 0.76-1.46 [facility] Comment on above: Performed By: #### F T4 #### [facility] [address] [place] [address] Dr. Isabel Wolfe T4on 06-05-2022 T4 [Mass/Vol] 6.20 ug/dL Normal 4.80-13.90 [facility] Comment on above: Performed By: #### T 4, TSH #### [facility] [address] [place] [address] Dr. Isabel Wolfe TSHon 06-05-2022 TSH 0.845 uIU/mL Normal 0.358-3.74 0 [facility] Comment on above: Performed By: #### T 4, TSH #### [facility] [address] [address] [address] Isabel Wolfe MICROALBUMIN/ CREATININE RAT IOon 04-09-2022 Albumin, Urine 4.4 ug/mL Normal Not Estab. [facility] Comment on above: Performed By: #### M ALBCRL #### [facility] [address] [place] [address] Dr. Isabel Wolfe Albumin/ Creatinine Ratio 11 mg/g creat Normal 0-29 [facility] Comment on above: Result Comment: Norm al: 0 - 29 Moderately increased: 30 - 300 Severely increased: >300 Performed By: #### M ALBCRL #### [facility] [address] [place] [address] Dr. Isabel Wolfe Creatinine, Urine 41.2 mg/dL Normal Not Estab. [facility] Comment on above: Performed By: #### M ALBCRL #### [facility] [address] [address] [address] Isabel Wolfe GLYCOHEMOGLOBIN A1Con 2021 ADA RECOMMENDATION SEE BELOW Normal [facility] Comment on above: Result Comment: ADA RECOMMENDED LIMIT 4.0 - 6.0 ADA THERAPEUTIC TARGET < 7.0 ACTION SUGGESTED > 7.0 Performed By: #### A 1C #### [facility] [address] [place] [address] Dr. Isabel Wolfe Glucose [Mass/Vol] 117 mg/dL Normal [facility] Comment on above: Performed By: #### A 1C #### [facility] [address] [address] [address] Isabel Wolfe HbA1c (Bld) [Mass fraction] 5.7 % Normal 4.5-6.2 [facility] Comment on above: Performed By: #### A 1C #### [facility] [address] [place] [address] Dr. Isabel Wolfe LIPID PROFILEon 04-06-2022 CHOL-HDL RATIO NORM SEE BELOW Normal [facility] Comment on above: Result Comment: 3.3 - 4.4 LOW RISK 4.4 - 7.1 AVERAGE RISK 7.1 - 11.0 MODERATE RISK >11.0 HIGH RISK Performed By: #### L IPID, CMP #### [facility] [address] [address] [address] Isabel Wolfe Cholesterol [Mass/Vol] 165 mg/dL Normal <=200 [facility] Comment on above: Performed By: #### L IPID, CMP #### [facility] [address] [address] [address] Isabel Wolfe Cholesterol in HDL [Mass/Vol] 38 mg/dL Critically low 40-60 [facility] Comment on above: Performed By: #### L IPID, CMP #### [facility] [address] [address] [address] Isabel Wolfe Cholesterol in LDL [Mass/Vol] 110.0 mg/dL Normal [facility] Comment on above: Performed By: #### L IPID, CMP #### [facility] [address] [place] [address] Dr. Isabel Wolfe Cholesterol.total/Chol esterol in HDL [Mass ratio] 4.3 {ratio} Normal [facility] Comment on above: Performed By: #### L IPID, CMP #### [facility] [address] [address] [address] Isabel Wolfe HDL NORMAL > or = 60 mg/dl - LO W CARDIOVASCULAR RISK <40 mg/dl - HIGH CARDIOVASCULAR RISK Normal [facility] Comment on above: Performed By: #### L IPID, CMP #### [facility] [address] [address] [address] Isabel Wolfe LDL CALC NORMAL SEE BELOW Normal [facility] Comment on above: Result Comment: <100 mg/dl OPTIMAL 100 - 129 mg/dl NEAR OR ABOVE OPTIMAL 130 - 159 mg/dl BORDERLINE HIGH 160 - 189 mg/dl HIGH >190 mg/dl VERY HIGH Performed By: #### L IPID, CMP #### [facility] [address] [address] [address] Isabel Wolfe Triglyceride [Mass/Vol] 85 mg/dL Normal <=150 [facility] Comment on above: Performed By: #### L IPID, CMP #### [facility] [address] [place] [address] Dr. Isabel Wolfe VLDL CALC 17.0 mg/dL Normal [facility] Comment on above: Performed By: #### L IPID, CMP #### [facility] [address] [place] [address] Dr. Isabel Wolfe PROF 14(COMP METB)on 022 Albumin [Mass/Vol] 3.3 g/dL Critically low 3.4-5.0 [facility] Comment on above: Performed By: #### L IPID, CMP #### [facility] [address] [place] [address] Dr. Isabel Wolfe Albumin/Globulin [Mass ratio] 0.9 {ratio} Normal [facility] Comment on above: Performed By: #### L IPID, CMP #### [facility] [address] [place] [address] Dr. Isabel Wolfe ALP [Catalytic activity/Vol] 86 U/L Normal 46-116 [facility] Comment on above: Performed By: #### L IPID, CMP #### [facility] [address] [place] [address] Dr. Isabel Wolfe ALT [Catalytic activity/Vol] 17 U/L Normal 14-59 [facility] Comment on above: Performed By: #### L IPID, CMP #### [facility] [address] [place] [address] Dr. Isabel Wolfe Anion gap [Moles/Vol] 14.3 mmol/L Normal [facility] Comment on above: Performed By: #### L IPID, CMP #### [facility] [address] [place] [address] Dr. Isabel Wolfe AST [Catalytic activity/Vol] 10 U/L Critically low 15-37 [facility] Comment on above: Performed By: #### L IPID, CMP #### [facility] [address] [place] [address] Dr. Isabel Wolfe Bilirubin [Mass/Vol] 0.5 mg/dL Normal 0.2-1.0 [facility] Comment on above: Performed By: #### L IPID, CMP #### [facility] [address] [address] [address] Isabel Wolfe Calcium [Mass/Vol] 9.0 mg/dL Normal 8.5-10.1 [facility] Comment on above: Performed By: #### L IPID, CMP #### [facility] [address] [address] [address] Isabel Wolfe Chloride [Moles/Vol] 104 mmol/L Normal 98-107 [facility] Comment on above: Performed By: #### L IPID, CMP #### [facility] [address] [address] [address] Isabel Wolfe CO2 [Moles/Vol] 25.8 mmol/L Normal 21.0-32.0 [facility] Comment on above: Performed By: #### L IPID, CMP #### [facility] [address] [place] [address] Dr. Isabel Wolfe Creatinine [Mass/Vol] 0.95 mg/dL Normal 0.55-1.02 [facility] Comment on above: Performed By: #### L IPID, CMP #### [facility] [address] [address] [address] Isabel Wolfe EGFR-AF STATELESS >60 Normal >=60 [facility] Comment on above: Performed By: #### L IPID, CMP #### [facility] [address] [place] [address] Dr. Isabel Wolfe EGFR-NON AF STATELESS >60 Normal >=60 [facility] Comment on above: Performed By: #### L IPID, CMP #### [facility] [address] [address] [address] Isabel Wolfe Globulin (S) [Mass/Vol] 3.6 g/dL Normal [facility] Comment on above: Performed By: #### L IPID, CMP #### [facility] [address] [address] [address] Isabel Wolfe Glucose [Mass/Vol] 101 mg/dL Normal 74-106 [facility] Comment on above: Performed By: #### L IPID, CMP #### [facility] [address] [address] [address] Isabel Wolfe Potassium [Moles/Vol] 4.1 mmol/L Normal 3.5-5.1 [facility] Comment on above: Performed By: #### L IPID, CMP #### [facility] [address] [address] [address] Isabel Wolfe Protein [Mass/Vol] 6.9 g/dL Normal 6.4-8.2 [facility] Comment on above: Performed By: #### L IPID, CMP #### [facility] [address] [address] [address] Isabel Wolfe Sodium [Moles/Vol] 140 mmol/L Normal 136-145 [facility] Comment on above: Performed By: #### L IPID, CMP #### [facility] [address] [address] [address] Isabel Wolfe Urea nitrogen [Mass/Vol] 12.0 mg/dL Normal 7.0-18.0 [facility] Comment on above: Performed By: #### L IPID, CMP #### [facility] [address] [address] [address] Isabel Wolfe Urea nitrogen/Creatinine [Mass ratio] 12.6 mg/mg Normal [facility] Comment on above: Performed By: #### L IPID, CMP #### [facility] [address] [place] [address] Dr. Isabel Wolfe COVID Quick Testingon 2020 Result Negative [employer] Other MRI ELBOW LEFT WO CONTRASTon 08-10-2020 [...] Jay Umanzor MD 08/10/20 Final result Normal [facility] 1. High-grade partial-thickness tearing at the origin of the common extensor tendon with moderate underlying tendinosis. 2. Small joint effusion. No intra-articular loose body. 3. No acute osseous abnormality. [facility], [place] EXAMINATION: MRI OF THE LEFT ELBOW [...] collection identified within the visualized soft tissues. [facility] [place], [place] [facility], [employer] Incoming Radiant Results From [employer] - 08/10/2020 2:33 PM EST EXAMINATION: MRI [...] loose body. 3. No acute osseous abnormality. [place], [place] Vital Signs Date Time Vital Sign Value Performing Clinician Denise pena 04-16-2023 13:10-0400 Body height 159.38 cm Kera Mccall Other [employer] Other 04-16-2023 13:10-0400 Body mass index (BMI) [Ratio] 48.06 kg/m2 Kera Mccall Other [employer] Other 04-16-2023 13:10-0400 Body temperature 97.8 [degF] Kera Mccall Other [employer] Other 04-16-2023 13:10-0400 Body weight 122.11 kg Kera Mccall Other [employer] Other 04-16-2023 13:10-0400 Respiratory rate 18 /min Kera Mccall Other [employer] Other 04-16-2023 13:10-0400 SaO2% (BldA) [Mass fraction] 96 % Kera Mccall Other [employer] Other 02-02-2023 10:00-0400 Body height 159.38 cm Clive Marino Other [employer] Other 02-02-2023 10:00-0400 Body mass index (BMI) [Ratio] 48.06 kg/m2 Clive Marino Other [employer] Other 02-02-2023 10:00-0400 Body weight 122.11 kg Clive Marino Other [employer] Other 02-02-2023 10:00-0400 Diastolic blood pressure 73 mm[Hg] Clive Marino Other [employer] Other 02-02-2023 10:00-0400 Respiratory rate 18 /min Clive Marino Other [employer] Other 02-02-2023 10:00-0400 SaO2% (BldA) [Mass fraction] 98 % Clive Marino Other [employer] Other 02-02-2023 10:00-0400 Systolic blood pressure 98 mm[Hg] Clive Marino Other [employer] Other 12-23-2022 15:00-0400 Body height 159.38 cm Gurmeet Honorio Other [employer] Other 12-23-2022 15:00-0400 Body mass index (BMI) [Ratio] 48.03 kg/m2 Jerryer Honorio Other [employer] Other 12-23-2022 15:00-0400 Body weight 122.02 kg Mohittonyer Honorio Other [employer] Other 12-23-2022 15:00-0400 Diastolic blood pressure 84 mm[Hg] Gurmeet Honorio Other [employer] Other 12-23-2022 15:00-0400 SaO2% (BldA) [Mass fraction] 100 % Gurmeet Honorio Other [employer] Other 12-23-2022 15:00-0400 Systolic blood pressure 127 mm[Hg] Gurmeet Honorio Other [employer] Other 12-14-2022 10:30-0400 Body height 159.38 cm Danya Carty Other [employer] Other 12-14-2022 10:30-0400 Body mass index (BMI) [Ratio] 48.04 kg/m2 Danyaher Helmler Other [employer] Other 12-14-2022 10:30-0400 Body weight 122.06 kg Danyaher Helmler Other [employer] Other 12-14-2022 10:30-0400 Diastolic blood pressure 82 mm[Hg] Danya Missler Other [employer] Other 12-14-2022 10:30-0400 Respiratory rate 18 /min Danya Missler Other [employer] Other 12-14-2022 10:30-0400 SaO2% (BldA) [Mass fraction] 97 % Danya Missler Other [employer] Other 12-14-2022 10:30-0400 Systolic blood pressure 124 mm[Hg] Danya Missler Other [employer] Other 12-01-2022 14:00-0400 Body height 159.38 cm Serene Fitt Other [employer] Other 12-01-2022 14:00-0400 Body mass index (BMI) [Ratio] 46.96 kg/m2 Serene Fitt Other [employer] Other 12-01-2022 14:00-0400 Body weight 119.3 kg Serene Fitt Other [employer] Other 11-07-2022 11:00-0500 Body height 159.38 cm Ellie Torres Other [employer] Other 11-07-2022 11:00-0500 Body mass index (BMI) [Ratio] 46.17 kg/m2 Ellie Torres Other [employer] Other 11-07-2022 11:00-0500 Body weight 117.3 kg Ellie Torres Other [employer] Other 11-07-2022 11:00-0500 Diastolic blood pressure 74 mm[Hg] Ellie Torres Other [employer] Other 11-07-2022 11:00-0500 Respiratory rate 18 /min Ellie Torres Other [employer] Other 11-07-2022 11:00-0500 SaO2% (BldA) [Mass fraction] 99 % Ellie Torres Other [employer] Other 11-07-2022 11:00-0500 Systolic blood pressure 123 mm[Hg] Ellie Torres Other [employer] Other 11-03-2022 14:00-0500 Body height 159.38 cm Susana Arrietamond Other [employer] Other 11-03-2022 14:00-0500 Body mass index (BMI) [Ratio] 46.74 kg/m2 Susana Arrietamond Other [employer] Other 11-03-2022 14:00-0500 Body temperature 97.8 [degF] Susana Arrietamond Other [employer] Other 11-03-2022 14:00-0500 Body weight 118.75 kg Susana Arrietamond Other [employer] Other 11-03-2022 14:00-0500 Diastolic blood pressure 72 mm[Hg] Susana Arrietamond Other [employer] Other 11-03-2022 14:00-0500 Respiratory rate 8 /min Susana Rhonda Other [employer] Other 11-03-2022 14:00-0500 SaO2% (BldA) [Mass fraction] 98 % Susana Ellis Other [employer] Other 11-03-2022 14:00-0500 Systolic blood pressure 122 mm[Hg] Susana Ellis Other [employer] Other 10-30-2022 11:15-0500 Body height 159.38 cm Danya Missler Other [employer] Other 10-30-2022 11:15-0500 Body mass index (BMI) [Ratio] 46.76 kg/m2 Danya Missler Other [employer] Other 10-30-2022 11:15-0500 Body weight 118.8 kg Danya Missler Other [employer] Other 10-30-2022 11:15-0500 Diastolic blood pressure 70 mm[Hg] Danya Missler Other [employer] Other 10-30-2022 11:15-0500 Respiratory rate 18 /min Danya Missler Other [employer] Other 10-30-2022 11:15-0500 SaO2% (BldA) [Mass fraction] 99 % Danya Missler Other [employer] Other 10-30-2022 11:15-0500 Systolic blood pressure 124 mm[Hg] Danya Missler Other [employer] Other 10-29-2022 11:00-0500 Body height 159.38 cm Ellie Torres Other [employer] Other 10-29-2022 11:00-0500 Body mass index (BMI) [Ratio] 46.46 kg/m2 Ellie Torres Other [employer] Other 10-29-2022 11:00-0500 Body temperature 99.8 [degF] Ellie Torres Other [employer] Other 10-29-2022 11:00-0500 Body weight 118.03 kg Ellie Torres Other [employer] Other 10-29-2022 11:00-0500 Diastolic blood pressure 80 mm[Hg] Ellie Torres Other [employer] Other 10-29-2022 11:00-0500 Respiratory rate 18 /min Ellie Torres Other [employer] Other 10-29-2022 11:00-0500 SaO2% (BldA) [Mass fraction] 98 % Ellie Torres Other [employer] Other 10-29-2022 11:00-0500 Systolic blood pressure 120 mm[Hg] Ellie Torres Other [employer] Other 10-08-2022 20:24-0500 Diastolic blood pressure 63 mm[Hg] [facility] 10-08-2022 20:24-0500 Heart rate 96 /min [facility] 10-08-2022 20:24-0500 Respiratory rate 18 /min [facility] 10-08-2022 20:24-0500 SaO2% (BldA) [Mass fraction] 98 % [facility] 10-08-2022 20:24-0500 Systolic blood pressure 135 mm[Hg] [facility] 10-08-2022 16:01-0500 Body height 157.48 cm [facility] 10-08-2022 16:01-0500 Body temperature 98.1 [degF] [facility] 10-08-2022 16:01-0500 Body weight 116 kg [facility] 10-06-2022 12:15-0500 Body height 159.38 cm Serene Joshblayne Other [employer] Other 10-01-2022 11:00-0500 Body height 159.38 cm Ellie Juan Jose Other [employer] Other 10-01-2022 11:00-0500 Body mass index (BMI) [Ratio] 45.71 kg/m2 Ellie Juan Jose Other [employer] Other 10-01-2022 11:00-0500 Body temperature 98.3 [degF] Ellie Juan Jose Other [employer] Other 10-01-2022 11:00-0500 Body weight 116.12 kg Ellie Juan Jose Other [employer] Other 10-01-2022 11:00-0500 Respiratory rate 18 /min Ellie Juan Jose Other [employer] Other 10-01-2022 11:00-0500 SaO2% (BldA) [Mass fraction] 99 % Ellie Juan Jose Other [employer] Other 09-30-2022 08:30-0500 Body height 159.38 cm Danya Carty Other [employer] Other 09-30-2022 08:30-0500 Body mass index (BMI) [Ratio] 45.72 kg/m2 Danya Missler Other [employer] Other 09-30-2022 08:30-0500 Body weight 116.17 kg Danya Missler Other [employer] Other 09-30-2022 08:30-0500 Diastolic blood pressure 81 mm[Hg] Danya Missler Other [employer] Other 09-30-2022 08:30-0500 Respiratory rate 18 /min Danya Missler Other [employer] Other 09-30-2022 08:30-0500 SaO2% (BldA) [Mass fraction] 98 % Danya Missler Other [employer] Other 09-30-2022 08:30-0500 Systolic blood pressure 123 mm[Hg] Danya Missler Other [employer] Other 09-20-2022 11:15-0500 Body height 162.56 cm Susana Arrietamond Other [employer] Other 09-20-2022 11:15-0500 Body mass index (BMI) [Ratio] 43.59 kg/m2 Susana Rhonda Other [employer] Other 09-20-2022 11:15-0500 Body temperature 97.7 [degF] Susana Rhonda Other [employer] Other 09-20-2022 11:15-0500 Body weight 115.21 kg Susana Rhonda Other [employer] Other 09-20-2022 11:15-0500 Diastolic blood pressure 75 mm[Hg] Susana Ellis Other [employer] Other 09-20-2022 11:15-0500 Respiratory rate 18 /min Susana Ellis Other [employer] Other 09-20-2022 11:15-0500 SaO2% (BldA) [Mass fraction] 98 % Susana Ellis Other [employer] Other 09-20-2022 11:15-0500 Systolic blood pressure 118 mm[Hg] Susana Ellis Other [employer] Other 09-14-2022 18:00-0500 Body height 162.56 cm Ellie Binghamault Other [employer] Other 09-14-2022 18:00-0500 Body mass index (BMI) [Ratio] 43.59 kg/m2 Ellie Juan Jose Other [employer] Other 09-14-2022 18:00-0500 Body temperature 97.1 [degF] Ellie Juan Jose Other [employer] Other 09-14-2022 18:00-0500 Body weight 115.21 kg Ellie Juan Jose Other [employer] Other 09-14-2022 18:00-0500 Diastolic blood pressure 94 mm[Hg] Ellie Juan Jose Other [employer] Other 09-14-2022 18:00-0500 Respiratory rate 18 /min Ellie Juan Jose Other [employer] Other 09-14-2022 18:00-0500 SaO2% (BldA) [Mass fraction] 100 % Ellie Juan Jose Other [employer] [facility] [employer] Other 09-14-2022 18:00-0500 Systolic blood pressure 157 mm[Hg] Ellie Juan Jose Other [facility] [employer] Other 09-10-2022 20:30-0500 Diastolic blood pressure 72 mm[Hg] [facility] 09-10-2022 20:30-0500 Heart rate 95 /min [facility] 09-10-2022 20:30-0500 Respiratory rate 18 /min [facility] 09-10-2022 20:30-0500 SaO2% (BldA) [Mass fraction] 99 % [facility] 09-10-2022 20:30-0500 Systolic blood pressure 156 mm[Hg] [facility] 09-10-2022 15:46-0500 Body height 165.1 cm [facility] 09-10-2022 15:46-0500 Body temperature 99 [degF] [facility] 09-10-2022 15:46-0500 Body weight 115.85 kg [facility] 09-10-2022 15:00-0500 Body height 162.56 cm Ellie Torres Other [employer] [facility] [employer] Other 09-10-2022 15:00-0500 Body mass index (BMI) [Ratio] 43.94 kg/m2 Ellie Juan Jose Other [employer] [facility] [employer] Other 09-10-2022 15:00-0500 Body temperature 98.2 [degF] Ellie Torres Other [employer] Other 09-10-2022 15:00-0500 Body weight 116.12 kg Ellie Torres Other [employer] Other 09-10-2022 15:00-0500 SaO2% (BldA) [Mass fraction] 98 % Ellie Torres Other [employer] Other 08-27-2022 15:00-0500 Body height 162.56 cm Ellie Torres Other [employer] Other 08-27-2022 15:00-0500 Body mass index (BMI) [Ratio] 43.59 kg/m2 Ellie Torres Other [employer] Other 08-27-2022 15:00-0500 Body temperature 97.8 [degF] Ellie Torres Other [employer] Other 08-27-2022 15:00-0500 Body weight 115.21 kg Ellie Torres Other [employer] Other 08-27-2022 15:00-0500 Diastolic blood pressure 64 mm[Hg] Ellie Binghamault Other [employer] Other 08-27-2022 15:00-0500 Respiratory rate 18 /min Ellie Binghamault Other [employer] Other 08-27-2022 15:00-0500 SaO2% (BldA) [Mass fraction] 99 % Ellie Binghamault Other [employer] Other 08-27-2022 15:00-0500 Systolic blood pressure 107 mm[Hg] Ellie Binghamault Other [employer] Other 07-30-2022 12:00-0500 Body height 162.56 cm Ellie Torres Other [employer] Other 07-30-2022 12:00-0500 Body mass index (BMI) [Ratio] 43.25 kg/m2 Ellie Torres Other [employer] Other 07-30-2022 12:00-0500 Body temperature 97.6 [degF] Ellie Torres Other [employer] Other 07-30-2022 12:00-0500 Body weight 114.31 kg Ellie Torres Other [employer] Other 07-30-2022 12:00-0500 Diastolic blood pressure 72 mm[Hg] Ellie Binghamault Other [employer] Other 07-30-2022 12:00-0500 Respiratory rate 18 /min Ellie Torres Other [employer] Other 07-30-2022 12:00-0500 SaO2% (BldA) [Mass fraction] 100 % Ellie Torres Other [employer] Other 07-30-2022 12:00-0500 Systolic blood pressure 135 mm[Hg] Ellie Binghamault Other [employer] Other 07-20-2022 12:05-0500 Body height 162.56 cm Ellie Binghamault Other [employer] Other 07-20-2022 12:05-0500 Body mass index (BMI) [Ratio] 42.56 kg/m2 Ellie Binghamault Other [employer] Other 07-20-2022 12:05-0500 Body temperature 97.8 [degF] Ellie Torres Other [employer] Other 07-20-2022 12:05-0500 Body weight 112.49 kg Ellie Torres Other [employer] Other 07-20-2022 12:05-0500 Diastolic blood pressure 71 mm[Hg] Ellie Torres Other [employer] Other 07-20-2022 12:05-0500 Respiratory rate 18 /min Ellie Torres Other [employer] Other 07-20-2022 12:05-0500 SaO2% (BldA) [Mass fraction] 99 % Ellie Torres Other [employer] Other 07-20-2022 12:05-0500 Systolic blood pressure 137 mm[Hg] Ellie Torres Other [employer] Other 07-02-2022 12:30-0400 Body height 162.56 cm Ellie Binghamault Other [employer] Other 07-02-2022 12:30-0400 Body mass index (BMI) [Ratio] 42.56 kg/m2 Ellie Binghamault Other [employer] Other 07-02-2022 12:30-0400 Body temperature 98 [degF] Ellie Binghamault Other [employer] Other 07-02-2022 12:30-0400 Body weight 112.49 kg Ellie Torres Other [employer] Other 07-02-2022 12:30-0400 Diastolic blood pressure 84 mm[Hg] Ellie Torres Other [employer] Other 07-02-2022 12:30-0400 Respiratory rate 18 /min Ellie Torres Other [employer] Other 07-02-2022 12:30-0400 SaO2% (BldA) [Mass fraction] 100 % Ellie Torres Other [employer] Other 07-02-2022 12:30-0400 Systolic blood pressure 129 mm[Hg] Ellie Torres Other [employer] Other 06-29-2022 11:15-0400 Body height 162.56 cm Pop Blandon Other [employer] Other 06-29-2022 11:15-0400 Body mass index (BMI) [Ratio] 41.19 kg/m2 Pop Blandon Other [employer] Other 06-29-2022 11:15-0400 Body weight 108.86 kg Pop Blandon Other [employer] Other 06-25-2022 17:30-0400 Body height 162.56 cm Ellie Torres Other [employer] Other 06-25-2022 17:30-0400 Body mass index (BMI) [Ratio] 41.19 kg/m2 Ellie Binghamault Other [employer] Other 06-25-2022 17:30-0400 Body temperature 97.7 [degF] Ellie Torres Other [employer] Other 06-25-2022 17:30-0400 Body weight 108.86 kg Ellie Torres Other [employer] Other 06-25-2022 17:30-0400 Diastolic blood pressure 88 mm[Hg] Ellie Torres Other [employer] Other 06-25-2022 17:30-0400 Respiratory rate 18 /min Ellie Torres Other [employer] Other 06-25-2022 17:30-0400 SaO2% (BldA) [Mass fraction] 99 % Ellie Torres Other [employer] Other 06-25-2022 17:30-0400 Systolic blood pressure 135 mm[Hg] Ellie Torres Other [employer] Other 05-25-2022 18:00-0400 Body height 162.56 cm Ellie Torres Other [employer] Other 05-25-2022 18:00-0400 Body mass index (BMI) [Ratio] 42.84 kg/m2 Ellie Torres Other [employer] Other 05-25-2022 18:00-0400 Body temperature 97.9 [degF] Ellie Torres Other [employer] Other 05-25-2022 18:00-0400 Body weight 113.22 kg Ellie Torres Other [employer] Other 05-25-2022 18:00-0400 Diastolic blood pressure 68 mm[Hg] Ellie Torres Other [employer] Other 05-25-2022 18:00-0400 Respiratory rate 18 /min Ellie Torres Other [employer] Other 05-25-2022 18:00-0400 SaO2% (BldA) [Mass fraction] 98 % Ellie Torres Other [employer] Other 05-25-2022 18:00-0400 Systolic blood pressure 120 mm[Hg] Ellie Torres Other [employer] Other 05-21-2022 12:30-0400 Body height 162.56 cm Ellie Torres Other [employer] Other 05-21-2022 12:30-0400 Body mass index (BMI) [Ratio] 43.29 kg/m2 Ellie Torres Other [employer] Other 05-21-2022 12:30-0400 Body temperature 98 [degF] Ellie Torres Other [employer] Other 05-21-2022 12:30-0400 Body weight 114.4 kg Ellie Torres Other [employer] Other 05-21-2022 12:30-0400 Diastolic blood pressure 63 mm[Hg] Ellie Torres Other [employer] Other 05-21-2022 12:30-0400 Respiratory rate 18 /min Ellie Binghamault Other [employer] Other 05-21-2022 12:30-0400 SaO2% (BldA) [Mass fraction] 100 % Ellie Torres Other [employer] Other 05-21-2022 12:30-0400 Systolic blood pressure 103 mm[Hg] Ellie Binghamault Other [employer] Other 04-27-2022 12:30-0400 Body height 162.56 cm Ellie Torres Other [employer] Other 04-27-2022 12:30-0400 Body mass index (BMI) [Ratio] 43.59 kg/m2 Ellie Torres Other [employer] Other 04-27-2022 12:30-0400 Body temperature 98.6 [degF] Ellie Binghamault Other [employer] Other 04-27-2022 12:30-0400 Body weight 115.21 kg Ellie Torres Other [employer] Other 04-27-2022 12:30-0400 Diastolic blood pressure 81 mm[Hg] Ellie Binghamault Other [employer] Other 04-27-2022 12:30-0400 Respiratory rate 18 /min Ellie Binghamault Other [employer] Other 04-27-2022 12:30-0400 SaO2% (BldA) [Mass fraction] 98 % Ellie Binghamault Other [employer] Other 04-27-2022 12:30-0400 Systolic blood pressure 130 mm[Hg] Ellie Torres Other [employer] Other 04-06-2022 11:00-0400 Body height 162.56 cm Ellie Torres Other [employer] Other 04-06-2022 11:00-0400 Body mass index (BMI) [Ratio] 43.63 kg/m2 Ellie Torres Other [employer] Other 04-06-2022 11:00-0400 Body temperature 98.5 [degF] Ellie Torres Other [employer] Other 04-06-2022 11:00-0400 Body weight 115.31 kg Ellie Binghamault Other [employer] Other 04-06-2022 11:00-0400 Diastolic blood pressure 66 mm[Hg] Ellie Torres Other [employer] Other 04-06-2022 11:00-0400 Respiratory rate 18 /min Ellie Torres Other [employer] Other 04-06-2022 11:00-0400 SaO2% (BldA) [Mass fraction] 98 % Ellie Binghamault Other [employer] Other 04-06-2022 11:00-0400 Systolic blood pressure 131 mm[Hg] Ellie Binghamault Other [employer] Other 03-03-2022 12:05-0400 Body height 162.56 cm Ellie Binghamault Other [employer] Other 03-03-2022 12:05-0400 Body mass index (BMI) [Ratio] 41.19 kg/m2 Ellie Torres Other [employer] Other 03-03-2022 12:05-0400 Body temperature 98 [degF] Ellie Torres Other [employer] Other 03-03-2022 12:05-0400 Body weight 108.86 kg Ellie Torres Other [employer] Other 03-03-2022 12:05-0400 Diastolic blood pressure 72 mm[Hg] Ellie Torres Other [employer] Other 03-03-2022 12:05-0400 Respiratory rate 18 /min Ellie Torres Other [employer] Other 03-03-2022 12:05-0400 SaO2% (BldA) [Mass fraction] 100 % Ellie Torres Other [employer] Other 03-03-2022 12:05-0400 Systolic blood pressure 116 mm[Hg] Ellie Torres Other [employer] Other 11-13-2021 16:45-0400 Body height 162.56 cm Pop Blandon Other [employer] Other 11-13-2021 16:45-0400 Body mass index (BMI) [Ratio] 42.91 kg/m2 Pop Blandon Other [employer] Other 11-13-2021 16:45-0400 Body weight 113.4 kg Pop Blandon Other [employer] Other 11-06-2021 14:20-0500 Body height 162.56 cm Ellie Torres Other [employer] Other 11-06-2021 14:20-0500 Body mass index (BMI) [Ratio] 43.08 kg/m2 Ellie Torres Other [employer] Other 11-06-2021 14:20-0500 Body temperature 97.7 [degF] Ellie Torres Other [employer] Other 11-06-2021 14:20-0500 Body weight 113.85 kg Ellie Torres Other [employer] Other 11-06-2021 14:20-0500 Diastolic blood pressure 70 mm[Hg] Ellie Torres Other [employer] Other 11-06-2021 14:20-0500 Respiratory rate 18 /min Ellie Torres Other [employer] Other 11-06-2021 14:20-0500 SaO2% (BldA) [Mass fraction] 99 % Ellie Torres Other [employer] Other 11-06-2021 14:20-0500 Systolic blood pressure 143 mm[Hg] Ellie Torres Other [employer] Other 09-29-2021 09:15-0500 Body height 162.56 cm Pop Blandon Other [employer] Other 08-11-2021 16:30-0500 Body height 162.56 cm Edie Singh Other [employer] Other 08-11-2021 16:30-0500 Body mass index (BMI) [Ratio] 43.08 kg/m2 Edie Singh Other [employer] Other 08-11-2021 16:30-0500 Body weight 113.85 kg Edie Singh Other [employer] Other 08-11-2021 16:30-0500 Diastolic blood pressure 88 mm[Hg] Edie Singh Other [employer] Other 08-11-2021 16:30-0500 Respiratory rate 18 /min Edie Singh Other [employer] Other 08-11-2021 16:30-0500 SaO2% (BldA) [Mass fraction] 99 % Edie Singh Other [employer] Other 08-11-2021 16:30-0500 Systolic blood pressure 130 mm[Hg] Edie Singh Other [employer] Other 06-12-2021 15:45-0400 Body height 162.56 cm Edie Singh Other [employer] Other 06-12-2021 15:45-0400 Body mass index (BMI) [Ratio] 42.84 kg/m2 Edie Singh Other [employer] Other 06-12-2021 15:45-0400 Body temperature 98.1 [degF] Edie Singh Other [employer] Other 06-12-2021 15:45-0400 Body weight 113.22 kg Edie Singh Other [employer] Other 06-12-2021 15:45-0400 Diastolic blood pressure 82 mm[Hg] Edie Artemio Other [employer] Other 06-12-2021 15:45-0400 Respiratory rate 18 /min Edie Artemio Other [employer] Other 06-12-2021 15:45-0400 SaO2% (BldA) [Mass fraction] 99 % Edie Artemio Other [employer] Other 06-12-2021 15:45-0400 Systolic blood pressure 132 mm[Hg] Edie Artemio Other [employer] Other Encounters Encounter Date Encounter Type Care Provider Facility Start: 06-18-2023 End: 06-18-2023 ambulatory Gurmeet Palacios Facility:[facility] Start: 06-18-2023 End: 06-18-2023 ambulatory FIELD ACCOUNT DIRECTOR-C Ellie Juan Jose [facility] Work Phone: Start: 06-18-2023 End: 06-18-2023 Patient encounter procedure FIELD ACCOUNT DIRECTOR-C Ellie Torres [facility]MRI [place] Work Phone: Start: 04-16-2023 End: 04-16-2023 ambulatory Kera Mccall Other [facility] [employer] Other Start: 04-16-2023 Office outpatient visit 25 minutes Kera Mccall [facility] Start: 02-24-2023 End: 02-24-2023 ambulatory Gurmeet Olmedo Facility:[facility] Start: 02-24-2023 End: 02-24-2023 ambulatory FIELD ACCOUNT DIRECTOR-C Ellie Torres Work Phone: [facility] Work Phone: Start: 02-24-2023 End: 02-24-2023 Patient encounter procedure FIELD ACCOUNT DIRECTOR-C Ellie Torres Work Phone: [facility]-Sleep Lab Work Phone: Start: 02-02-2023 Follow-up encounter Clive Jamila [facility] Start: 02-02-2023 Telephone encounter Clive Jamila [facility] Start: 02-02-2023 End: 02-03-2023 ambulatory Ellie Torres [facility] Other Start: 02-02-2023 Registered Recurring FIELD ACCOUNT DIRECTOR-C Librado bowiehal Torres Work Phone: [facility]-Weight Management Work Phone: Start: 12-23-2022 Office outpatient ne w 30 minutes Gurmeet Olmedo [facility] Start: 12-23-2022 End: 12-23-2022 ambulatory FIELD ACCOUNT DIRECTOR-C Ellie Torres Work Phone: [facility] Work Phone: Start: 12-23-2022 End: 12-23-2022 Patient encounter procedure FIELD ACCOUNT DIRECTOR-C Ellie Torres Work Phone: [facility]Sleep Lab Work Phone: Start: 12-16-2022 End: 12-16-2022 ambulatory Serene Bustos Other [facility] Other Start: 12-16-2022 IBT for Obesity subQ 15 min (Max charge 2 units) Serene Bustos [facility] Start: 12-16-2022 Registered Recurring FIELD ACCOUNT DIRECTOR-C Librado salcedo Juan Jose Work Phone: [facility]-Weight Management Work Phone: Start: 12-14-2022 (FCCCWMNF/U) Weight Management f/u Danya Carty [facility] Start: 12-14-2022 End: 12-14-2022 ambulatory Danya Carty Other [employer] Other Start: 12-14-2022 Telephone encounter Danya Carty [facility] Start: 12-01-2022 ([facility]) WMN Initial Provider Serene Bustos [facility] Start: 12-01-2022 End: 12-02-2022 ambulatory COTTON CONVERTER ELLIE TORRES [employer] Other Start: 11-07-2022 Office outpatient visit 15 minutes Ellie Torres [facility] Start: 11-07-2022 End: 11-07-2022 ambulatory Ellie Torres Facility:[facility] Start: 11-07-2022 End: 11-07-2022 ambulatory NON STAFF [facility] Work Phone: Start: 11-07-2022 End: 11-07-2022 Patient encounter procedure [facility] Work Phone: Start: 11-03-2022 End: 11-03-2022 ambulatory Susana Ellis Facility:[facility] Start: 11-03-2022 End: 11-03-2022 Patient encounter procedure [facility] Work Phone: Start: 11-03-2022 End: 11-03-2022 ambulatory NON STAFF [facility] Work Phone: Start: 11-03-2022 Office outpatient visit 15 minutes Susana Ellis [facility] Start: 10-30-2022 [facility] Start: 10-30-2022 End: 10-30-2022 ambulatory Danya Carty Other [employer] Other Start: 10-30-2022 Registered Recurring [facility] Work Phone: Start: 10-29-2022 End: 10-29-2022 ambulatory Ellie Torres Other [employer] Other Start: 10-29-2022 Office outpatient visit 15 minutes Ellie Torres [facility] Start: 10-08-2022 End: 10-08-2022 Emergency department patient visit Ellie Torres Facility:[facility] Start: 10-08-2022 End: 10-08-2022 Emergency department patient visit [facility]-Emergency Room Work Phone: Start: 10-06-2022 End: 10-06-2022 ambulatory Serene Bustos Other [employer] Other Start: 10-06-2022 IBT FOR OBESITY GROU P 2-10 30M Serene Bustos [facility] Start: 10-06-2022 Registered Recurring [facility]-Weight Management Work Phone: Start: 10-01-2022 End: 10-01-2022 ambulatory Ellie Torres Facility:[facility] Start: 10-01-2022 Office outpatient visit 15 minutes Ellie Torres [facility] Start: 10-01-2022 End: 10-01-2022 ambulatory NON STAFF [facility] Work Phone: Start: 10-01-2022 End: 10-01-2022 Patient encounter procedure [facility] Work Phone: Start: 09-30-2022 End: 09-30-2022 ambulatory Danya byron Other [employer] Other Start: 09-30-2022 Nutrition therapy Danya Carty [facility] Start: 09-30-2022 Registered Recurring [facility]Weight [facility] Work Phone: Start: 09-25-2022 End: 09-25-2022 ambulatory Elliedavid Torres Other [employer] Other Start: 09-25-2022 Telephone encounter Elliedavid Gerberl t [facility] Start: 09-23-2022 End: 09-23-2022 ambulatory Elliedavid Torres Other [employer] Other Start: 09-23-2022 Telephone encounter Elliedavid Gerberl t [facility] Start: 09-21-2022 End: 09-22-2022 ambulatory ELLIE JUAN JOSE Facility: Start: 09-20-2022 End: 09-20-2022 ambulatory Susana Rhonda Other [employer] Other Start: 09-20-2022 Office outpatient visit 15 minutes Ssuana Rhonda [facility] Start: 09-14-2022 End: 09-14-2022 ambulatory Elliedavid Torres Other [employer] Other Start: 09-14-2022 Office outpatient visit 15 minutes Ellie Juan Jose [facility] Start: 09-10-2022 End: 09-10-2022 Emergency department patient visit NON STAFF Facility:[facility] Start: 09-10-2022 End: 09-10-2022 Emergency department patient visit [facility] Work Phone: Start: 09-10-2022 End: 09-10-2022 ambulatory Elliedavid Torres Other [employer] Other Start: 09-10-2022 Patient encounter procedure Ellie Juan Jose [facility] Start: 09-07-2022 End: 09-07-2022 ambulatory Ellie Juan Jose Other [employer] Other Start: 09-07-2022 Telephone encounter Ellie Breaul t [facility] Start: 08-27-2022 End: 08-27-2022 ambulatory Elliedavid Torres Other [employer] Other Start: 08-27-2022 Office outpatient visit 15 minutes Elliedavid Torres [facility] Start: 08-17-2022 End: 08-17-2022 ambulatory Elliedavid Torres Other [employer] Other Start: 08-17-2022 Telephone encounter Ellie Otiliaaul t [facility] Start: 07-30-2022 End: 07-30-2022 ambulatory Elliedavid Torres Other [employer] Other Start: 07-30-2022 Office outpatient visit 15 minutes Ellie Juan Jose [facility] Start: 07-20-2022 End: 07-20-2022 ambulatory Elliedavid Torres Other [employer] Other Start: 07-20-2022 Office outpatient visit 15 minutes Elliedavid Torres [facility] Start: 07-10-2022 End: 07-10-2022 ambulatory Elliedavid Torres Other [employer] Other Start: 07-10-2022 Telephone encounter Elliedavid Gerberl t [facility] Start: 07-02-2022 End: 07-02-2022 ambulatory Elliedavid Torres Other [employer] Other Start: 07-02-2022 Office outpatient visit 15 minutes Ellie Juan Jose [facility] Start: 06-30-2022 End: 06-30-2022 ambulatory Ellienancy Torres Other [employer] Other Start: 06-30-2022 Telephone encounter Ellie Breaul t [facility] Start: 06-29-2022 End: 06-29-2022 ambulatory Pop Blandon Other [employer] Other Start: 06-29-2022 Office outpatient visit 15 minutes Pop Blandon [facility] [place] Start: 06-25-2022 End: 06-25-2022 ambulatory Ellie Juan Jose Other [employer] Other Start: 06-25-2022 Office outpatient visit 15 minutes Ellienancy Torres [facility] Start: 06-22-2022 (Procedure) Kat Blandon [facility] Start: 06-22-2022 End: 06-22-2022 ambulatory Pop Blandon Other [employer] Other Start: 06-11-2022 End: 06-11-2022 ambulatory Ellienancy Torres Other [employer] Other Start: 06-11-2022 Telephone encounter Ellie Gerberl t [facility] Start: 06-05-2022 End: 06-06-2022 ambulatory ELLIE JUAN JOSE Facility: Start: 06-01-2022 (Procedure) Kat Blandon [facility] Start: 06-01-2022 End: 06-01-2022 ambulatory Pop Blandon Other [employer] Other Start: 05-25-2022 End: 05-25-2022 ambulatory Ellie Juan Jose Other [employer] Other Start: 05-25-2022 Office outpatient visit 25 minutes Ellie Juan Jose [facility] Start: 05-21-2022 End: 05-21-2022 ambulatory Ellie Juan Jose Other [employer] Other Start: 05-21-2022 Office outpatient visit 15 minutes Ellie Juan Jose [facility] Start: 05-08-2022 End: 05-08-2022 ambulatory Ellie Juan Jose Other [employer] Other Start: 05-08-2022 Telephone encounter Ellie cisneros [facility] Start: 04-27-2022 End: 04-27-2022 ambulatory Ellie Torres Other [employer] Other Start: 04-27-2022 Office outpatient visit 15 minutes Elliedavid Torres [facility] Start: 04-22-2022 End: 04-22-2022 ambulatory Pop Blandon Other [employer] Other Start: 04-22-2022 Office outpatient visit 25 minutes Pop Blandon [facility] [place] Start: 04-16-2022 End: 04-16-2022 ambulatory Pop Blandon Other [employer] Other Start: 04-16-2022 Telephone encounter Pop Blandon [facility] Start: 04-13-2022 (Procedure) Short Pop Blandon [facility] Start: 04-13-2022 End: 04-13-2022 ambulatory Pop Blandon Other [employer] Other Start: 04-06-2022 Office outpatient visit 15 minutes Ellie Torres [facility] Start: 04-06-2022 End: 04-07-2022 ambulatory ELLIE JUAN JOSE [employer] Other Start: 03-03-2022 End: 03-03-2022 ambulatory Ellie Torres Other [employer] Other Start: 03-03-2022 Office outpatient visit 15 minutes Ellie Torres [facility] Start: 01-28-2022 End: 01-28-2022 ambulatory Pop Blandon Other [employer] Other Start: 01-28-2022 Telephone encounter Pop FISH [facility] [place] Start: 01-21-2022 End: 01-21-2022 ambulatory Pop Blandon Other [employer] Other Start: 01-21-2022 Telephone encounter Pop FISH G [facility] Start: 01-15-2022 End: 01-15-2022 ambulatory Pop Blandon Other [employer] Other Start: 01-15-2022 Office outpatient visit 25 minutes Pop Arceer [facility] [place] Start: 12-11-2021 End: 12-11-2021 ambulatory Pop Arceer Other [employer] Other Start: 12-11-2021 Office outpatient visit 25 minutes Pop Blandon [facility] [place] Start: 12-03-2021 (Procedure) Short Pop Blandon [facility] Start: 12-03-2021 End: 12-03-2021 ambulatory Pop Blandon Other [employer] Other Start: 11-14-2021 End: 11-14-2021 ambulatory Pop Blandon Other [employer] Other Start: 11-14-2021 Telephone encounter Pop FISH G [facility] Start: 11-13-2021 End: 11-13-2021 ambulatory Pop Arceer Other [employer] Other Start: 11-13-2021 Office outpatient visit 25 minutes Pop Arceer [facility] [place] Start: 11-06-2021 End: 11-06-2021 ambulatory Ellie Torres Other [employer] Other Start: 11-06-2021 Office outpatient visit 15 minutes Ellie Torres [facility] Start: 11-06-2021 Telephone encounter Edie [facility] Start: 10-29-2021 End: 10-29-2021 ambulatory Pop Arceshady Other [employer] Other Start: 10-29-2021 Telephone encounter Pop Blandon [facility] Start: 09-29-2021 End: 09-29-2021 ambulatory Pop Blandon Other [employer] Other Start: 09-29-2021 Office outpatient visit 25 minutes Pop Blandon [facility] [place] Start: 09-25-2021 End: 09-25-2021 ambulatory Edie Singh Other [employer] Other Start: 09-25-2021 Telephone encounter Edie Lewis [facility] [place] Start: 08-19-2021 End: 08-19-2021 ambulatory Edie Singh Other [employer] Other Start: 08-19-2021 Telephone encounter Edie Lewis [facility] [place] Start: 08-11-2021 End: 08-11-2021 ambulatory Edie Singh Other [employer] Other Start: 08-11-2021 Office outpatient visit 15 minutes Edie Singh [facility] [place] Start: 06-12-2021 Office outpatient visit 15 minutes Edie Singh [facility] Start: 08-10-2020 End: 08-13-2020 Patient encounter procedure EDIE SINGH [facility] Start: 08-10-2020 End: 08-12-2020 Subsequent hospital visit by physician Marit[facility] MRI Comment on above: Left elbow pain Procedures Date Procedure Procedure Detail Performing Clinician Start: 06-18-2023 MR lumbar spine wo con FIELD ACCOUNT DIRECTOR-C Ellie Torres Start: 11-07-2022 Plain X-ray of [...] 04-30-2020 Influenza vaccination Flu vaccine (# 1) [place], [place] Start: 2011 Lipid panel Lipid screen [place], [place] Start: 11-11-1992 Screening for malign ant neoplasm of cervix Cervical cancer screen [place], [place] Start: 11-11-1990 DTaP/Tdap/Td vaccine (1 - Tdap) DTaP/Tdap/Td vaccine (1 - Tdap) [place], [place] Start: 11-11-1986 HIV screening HIV screen [place], [place] Patient Education [facility] Work Phone: Patient referral [facility] Work Phone: Immunizations Immunization Date Immunization Notes Care Provider Donnie dewitt 03-11-2021 Toradol 30 mg/ml Edie Wid ashli Other [employer] [facility] [employer] Other 03-11-2021 KENALOG - 10 mg Edie Widm er Other [employer] [facility] Other 02-17-2021 Toradol 30 mg/ml Edie Wid ashli Other [employer] [facility] Other 06-10-2020 Depo-Medrol 80 mg Edie Wi dmer Other [employer] [facility] Other 06-19-2019 Depo-Medrol 40 mg Edie Wi dmer Other [employer] Other 11-28-2018 Toradol per 15 mg Edie Wi dmer Other [employer] Other 11-28-2018 Depo-Medrol 80 mg Edie Wi dmer Other [employer] Other Payers Date Payer Category Payer Unknown [id number] 2022 Self-pay [id number] 2018 Unknown [id number] 1971 Unknown [id number] 1971 Unknown [id number] .[id number] 1971 Unknown [id number] 1971 Unknown [id number] .[id number] 1971 Unknown [id number] 1958 Medicaid [id number] . [id number] Medicaid [place] [id number] 42 Unknown [id number] 2.16 [id number] Unknown HCAP/HFA/FAP Active [id number] Unknown [id number] Unknown [id number] Unknown [id number] [id number] Unknown [id number] Unknown [id number] Unknown [id number] [id number] Unknown [id number] [id number] Unknown [id number] Unknown [id number] Social History Date Type Detail Facility Tobacco smoking status NHIS Unknown if ever smoked Visual.ly Sex Assigned At Not on file Visual.ly Sex Assigned At Sex Assigned At Bir th [facility] [facility] Other Start: 09-10-2022 End: 10-08-2022 Tobacco smoking status NHIS Never smoked tobacco (finding) [facility] Start: 1970 Sex Assigned At Female F [facility] Medical Equipment Procedure Code Equipment Code [...] Zyrtec/Claritin daily. Recommended patient follow-up over to [facility] for follow-up appointment with PCP to discuss next steps. Patient verbalizes understanding and is agreeable with treatment plan [employer] [facility] Other 06-06-2023 Evaluation note* Encounter Date Diagnosis Assessment Notes Treatment Notes Treatment Clinical Notes Jan, Prediabetes (ICD-10 - R73.03) Jan, Body mass index (BMI ) of 45.0-49.9 in adult (ICD-10 - Z68.42) Jan, Hypertension (ICD-10 - I10) Jan, Obstructive sleep apnea (ICD-10 - G47.33) Jan, Knee osteoarthritis (ICD-10 - M17.9) Jan, Metabolic syndrome X (ICD-10 - E88.81) [facility] [facility] Other 04-26-2023 Evaluation note* Encounter Date Diagnosis Assessment Notes Treatment Notes Treatment Clinical Notes Nov, Obstructive sleep apnea (ICD-10 - G47.33) Nov, Morbid (severe) obesity due to excess calories (ICD-10 - E66.01) [facility] [facility] Other 04-19-2023 Evaluation note* Encounter Date Diagnosis [...] following goals: - explore exercise options: [employer], [employer], and home execises; PARTIALLY MET - add more veggies - PARTIALLY MET [facility] Other 04-17-2023 Evaluation note* Encounter Date Diagnosis [...] Encounter for weight management (ICD-10 - Z76.89) [facility] Other 04-04-2023 Evaluation note* Encounter Date Diagnosis [...] goals: - NEW: explore exercise options: [employer], [employer], and home [employer] - NEW: add more veggies [facility] Other 03-11-2023 Evaluation note* Encounter Date Diagnosis [...] hip pain may be exacerbated by knee [facility] Other 03-07-2023 Evaluation note* Encounter Date Diagnosis [...] no improvement in 2 to 3 days. [facility] Other 03-03-2023 Evaluation note* Encounter Date Diagnosis [...] routine Strongly encouraged to connect with our wave solder offbearer for exercises she is able to do [...] Encounter for weight management (ICD-10 - Z76.89) [facility] Other 03-02-2023 Evaluation note* Encounter Date Diagnosis [...] (ICD-10 - J32.4) Take medication as directed. [facility] Other 02-07-2023 Evaluation note* Encounter Date Diagnosis [...] patient set personal goal using given handout. [facility] Other 02-02-2023 Evaluation note* Encounter Date Diagnosis [...] (ICD-10 - F41.1) Continue current treatment program [facility] Other 02-01-2023 Evaluation note* Encounter Date Diagnosis [...] discuss other options through menopause with her WATCH ELECTRICIAN. Optimize sleep quality and quantity using good [...] the week. Encouraged to take advantage of wave solder offbearer available at [facility] that can help work around limitations. [...] prevent diabetes. Consider metformin or GLP-1 agonist. [facility] Other 01-22-2023 Evaluation note* Encounter Date Diagnosis [...] no improvement in 2 to 3 days [facility] Other 01-16-2023 Evaluation note* Encounter Date Diagnosis [...] then have labs rechecked the day after [facility] Other 01-12-2023 Evaluation note* Encounter Date Diagnosis Assessment Notes Treatment Notes Treatment Clinical Notes Aug, Urine retention (ICD-10 - R33.9) very concerned patient is having symptoms of neurogenic bladder due to symptoms occuring after a recent fall. Recommend patient go to ER due to inability to urinate and she has not urinated since yesterday evening. [facility] Other 12-29-2022 Evaluation note* Encounter Date Diagnosis Assessment Notes Treatment Notes Treatment Clinical Notes Jul, LACEY (generalized anxiety disorder) (ICD-10 - F41.1) Jul, Other low back pain (ICD-10 - M54.59) Jul, Insomnia, unspecified type (ICD-10 - G47.00) Jul, Other spondylosis with radiculopathy, lumbar region (ICD-10 - M47.26) MME is 9.7 per day and OARRS is checked. Jul, Skin lesion (ICD-10 - L98.9) [facility] Other 12-19-2022 Evaluation note* Encounter Date Diagnosis Assessment Notes Treatment Notes Treatment Clinical Notes Jul, Other spondylosis with radiculopathy, lumbar region (ICD-10 - M47.26) [facility] Other 12-01-2022 Evaluation note* Encounter Date Diagnosis [...] work then we may discuss seeing ENT [facility] Other 11-21-2022 Evaluation note* Encounter Date Diagnosis Assessment Notes Treatment Notes Treatment Clinical Notes Jun, Left otitis media with effusion (ICD-10 - H65.92) Jun, Thrush (ICD-10 - B37.0) Jun, DDD (degenerative disc disease), lumbar (ICD-10 - M51.36) [facility] Other 11-03-2022 Evaluation note* Encounter Date Diagnosis [...] call office and we will send referal [facility] Other 10-31-2022 Evaluation note* Encounter Date Diagnosis [...] Above note written by Javed Arreola MA, Core Oven Tender. Edited and approved by Dr. Pop Blandon MD. [facility] Other 10-27-2022 Evaluation note* Encounter Date Diagnosis [...] F41.1) Added as needed medication as discussed. [facility] Other 09-26-2022 Evaluation note* Encounter Date Diagnosis [...] index [BMI] 40.0-44.9, adult (ICD-10 - Z68.41) [facility] Other 09-26-2022 Evaluation note* Encounter Date Diagnosis [...] index [BMI] 40.0-44.9, adult (ICD-10 - Z68.41) [facility] Other 09-22-2022 Evaluation note* Encounter Date Diagnosis Assessment Notes Treatment Notes Treatment Clinical Notes Apr, Lumbar degenerative disc disease (ICD-10 - M51.36) Keep upcoming appointments with pain management appointments and neurosurgery appt as discussed. Apr, Acute non-recurrent frontal sinusitis (ICD-10 - J01.10) Take medication as directed. Recommend taking OTC Zyrtec or allergy until after harvest season [facility] Other 08-29-2022 Evaluation note* Encounter Date Diagnosis [...] further steps are needed. Patient states understanding. [facility] Other 08-24-2022 Evaluation note* Encounter Date Diagnosis [...] note writ ten by Javed Arreola CMA, Core Oven Tender. Edited and approved by Dr. Pop Blandon MD. [facility] Other 08-18-2022 Evaluation note* Encounter Date Diagnosis Assessment Notes Treatment Notes Treatment Clinical Notes Mar, Strain of lumbar region, initial encounter (ICD-10 - S39.012A) [facility] Other 08-08-2022 Evaluation note* Encounter Date Diagnosis [...] to be seen. Also always know the [facility] Emergency Number is 24 hours a day available, even on holidays there is someone you can reach out to. Also we will check other labs yearly to screen for other health issues. Please remember we are a team and your opinion is very important in all of your healthcare decisions Mar, Other spondylosis with radiculopathy, lumbar region (ICD-10 - M47.26) [facility] Other 07-05-2022 Evaluation note* Encounter Date Diagnosis [...] Feb, Left lumbar pain (ICD-10 - M54.50) [facility] Other 06-01-2022 Evaluation note* Encounter Date Diagnosis Assessment Notes Treatment Notes Treatment Clinical Notes Jan, Generalized pain (ICD-10 - R52) Jan, Strain of lumbar region, initial encounter (ICD-10 - S39.012A) [facility] Other 05-19-2022 Evaluation note* Encounter Date Diagnosis [...] note writ ten by Javed Arreola CMA, Core Oven Tender. Edited and approved by Dr. Pop Blandon MD. [facility] Other 04-14-2022 Evaluation note* Encounter Date Diagnosis [...] Other Above note writ ten by Luli Garicas LPN, Core Oven Tender. Edited and approved by Dr. Pop Blandon MD. [facility] Other 03-17-2022 Evaluation note* Encounter Date Diagnosis [...] note writ ten by Javed Arreola MA, Core Oven Tender. Edited and approved by Dr. Pop Blandon MD. [facility] Other 03-10-2022 Evaluation note* Encounter Date Diagnosis [...] discussed so you can talk about referrals. [facility] Other 03-02-2022 Evaluation note* Encounter Date Diagnosis Assessment Notes Treatment Notes Treatment Clinical Notes Oct, Generalized pain (ICD-10 - R52) [facility] Other 01-31-2022 Evaluation note* Encounter Date Diagnosis [...] note writ ten by Javed Arreola MA, Core Oven Tender. Edited and approved by Dr. Pop Blandon MD. [facility] Other 12-13-2021 Evaluation note* Encounter Date Diagnosis [...] given Flexeril to help relax her muscles. [facility] Other 10-14-2021 Evaluation note* Encounter Date Diagnosis [...] Patient care instructions given in writting by [facility] document. [facility] Other Evaluation noteNo InformationNort [place] Other Evaluation noteNo assessment information available [facility] Work Phone: History general Narrative - Reported* Type Description Date Medical History HTN Hospitalization History saliva stones [facility] Other History general Narrative - Reported* Type Description Date Medical History HTN Medical History back pain Hospitalization History saliva stones [facility] Other History general Narrative - Reported* Type Description Date Medical History HTN Medical History Back pain Medical History Day time fatigue Medical History Depression Medical History Gestational diabetes in the past Medical History Spinal stenosis Medical History Chronic pain requiring narcotic use Hospitalization History saliva stones [facility] Other Hiseobk general Narrative - Reported* Type Description Date Medical History HTN Medical History Back pain Medical History Day time fatigue Medical History Depression Medical History Gestational diabetes in the past Medical History Spinal stenosis Medical History Chronic pain requiring narcotic use Hospitalization History saliva stones Hospitalization History [facility] pneumonia 09/2021 [facility] Other Hiszzqv general Narrative - ReportedNoVisual.ly Other Hospital Discharge instructions Additional Instructions Use your albuterol inhaler as prescribed for your shortness of breath and wheezing. Take Levaquin and prednisone as prescribed for pneumonia and laryngitis follow-up with the PCP for reevaluation in 5 to 7 days. .[facility] Work Phone: reason for visit NarrativeNeurosurgery Referral Update [facility] Other reason for visit NarrativePain Medicine Referral UpdateChildren'S Mercy HospitalVisual.ly Other reason for visit NarrativeDermatology Referral Update [facility] Other Summary Purpose Family History No Family [...] CONTRAST ArtemioEdie cornelius N, DO [address] [place] [address] Reason his shefflied o ffice - patient has history of chronic back pain and would like opinion if surgery is option Diagnosis 1 Pain in left lumbar region of back (M54.50) Diagnosis 2 Lumbar degenerative disc disease (M51.36) Diagnosis 3 DDD (degenerative di sc disease), lumbar (M51.36) Diagnosis 4 Other spondylosis wi th radiculopathy, lumbar region (M47.26) Referral Organization [facility] Family Medicin e Raif Referring Provider First Name Ellie Referring Provider [...] they have other Neurosurgeons there, then [facility] 07:55:07 AM >Waiting for office notes to be locked before sending referral [facility] 03/10/2022 10:08:27 AM >Referral was fax Reason * 07/09 lumbar p ain [facility] Diagnosis 1 Lumbar degenerative disc disease (M51.36) Referral Organization [facility] Family Medicin e Rafi Referring Provider First Name Ellie Referring Provider Last Name Juan Jose Referring Provider Specialty Nurse Pract itioner Referred Organization [facility] Referred Address [address] [place] Referred Provider Specialty Pain Medicin e Referral Priority Routine General Notes Serene Lucas 03:02:38 PM >Received and fax referral today Clinical Notes Office [phone] Reason CANCELLED recently changed skin lesions on face Diagnosis 1 Skin lesion (L98.9) Referral Organization [facility] Family Medicin e Rafi Referring Provider First Name Ellie Referring Provider Last Name Juan Jose Referring Provider Specialty Nurse Pract itioner Referred Organization [facility] Referred Address [address] [facility] [address] [facility],[address] Referred Provider Specialty Dermatology Referral Priority Routine [...] Diagnosis 1 Sleep apnea (G47.30) Referral Organization [facility] Referring Provider First Name Danya Referring Provider Last Name byron Referring Provider Specialty Nurse Pract itioner Referred Organization [facility] Referred Address [address] [place],[address] Referred Provider Specialty Sleep Medici ne Referral [...] section and content) DATE CREATED AUTHOR 08/14/2020 [facility] DATE CREATED AUTHOR AUTHOR'S ORGANIZ ATION 11/20/2022 [facility] DATE CREATED AUTHOR AUTHOR'S ORGANIZ ATION [facility] DATE CREATED AUTHOR AUTHOR'S ORGANIZ ATION 08/11/2023 [facility] Reason for Visit (unrecogniz ed section and content) Status Reason Specialty Diagnoses / Procedures Referre d By Contact Referred To Contact Closed Radiology Diagnoses Lateral epicondylitis, left elbow Pain in left elbow Procedures HC MRI-UPPER EXT JNT WO CONT Edie Singh, DO [address] [place] [address] [facility] [address] [place] [id number] Care Teams (unrecognized sec tion and content) [...] Member Role Status Dates Ellie Torres , FIELD ACCOUNT DIRECTOR-C Primary Care Provider Active Danya Carty APRN Referring Provider Active Gurmeet Olmedo MD Attending Provider Active Team Status: Inactive Member Role Status Dates Ellie Torres , FIELD ACCOUNT DIRECTOR-C Primary Care Provider Active Gurmeet Olmedo MD Attending Provider Active Team Status: Inactive Member Role Status Dates Ellie Torres , FIELD ACCOUNT DIRECTOR-C Primary Care Provider Active Gurmeet Palacios DO [...] BE BASED ON THE PRIMARY CLINICAL RECORDS. [employer] [facility]. provides no warranty or guarantee of the accuracy or completeness of information in this document.
--- NOTE | 2023-10-13 18:18 | ECG_ITS ---
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
--- NOTE | 2023-10-13 18:22 | CT_ITS ---
The [address] [address] Patient Name: JOSELITO VIDAL MRN: [id number] date: 1970 Sex: F Assigned Patient Location: ER Current Patient Location: ER Accession/Order Number: [id number] Exam Date: 10/13/2023 18:40 Report Date: 10/13/2023 19:21 At the request of: SHERLEY DOBBINS Procedure: CT head/brain wo con EXAM: CT head/brain wo con HISTORY: Dizziness and. TECHNIQUE: Axial CT scans through the head were obtained without IV contrast administration. Dose reduction techniques were achieved by using: automated exposure control and/or adjustment of mA and /or kV according to patient size and/or use of iterative reconstruction technique. COMPARISON: None. FINDINGS: The cerebral hemispheres have normal white and dillard matter and corticomedullary differentiation. To the limit of CT, the posterior fossa appears unremarkable. The ventricular system and cortical sulci are normal for the patient's age. No area of abnormal mass-effect or edema or intracranial hemorrhage. The visualized orbits show no abnormal mass. The visualized paranasal sinuses show no air-fluid level. Opacification of a left mastoid air cell is probably due to effusion. CT/CT head/brain wo con IMPRESSION: No acute intracranial process. Electronically authenticated by: EDE CUADRA Date: 10/13/2023 19:21
--- NOTE | 2023-10-13 18:22 | ED.GENADUL1 ---
HPI - General Adult General Chief complaint: Recheck/Abnormal Lab/Rx Stated complaint: Abnormal Labs Time Seen by Provider: 10/13/23 18:09 Source: patient Mode of arrival: Wheelchair History of Present Illness HPI narrative: Patient is a 52-year-old female who presents to the emergency department at the request of her primary care provider in [place]. Patient was seen in this emergency department on 10/08/2023 for ongoing issues with dizziness, low blood pressures. She had a full cardiac workup including a CTA of the chest for an elevated D-dimer which did not show any acute abnormalities and she was discharged home to follow-up with her PCP. She states she had outpatient labs done in [place] yesterday and was contacted today to come back to the emergency department because she was feeling dizzy and had muscle cramps. She has not had any headaches, visual loss, fevers, chills, chest pain, nausea, vomiting. She states her PCP office told her to come back to the ER, no additional testing has been ordered for her regarding the dizziness. Related Data Home Medications Medication Instructions Recorded Confirmed albuterol sulfate 90 mcg/actuation 2 puff inhalation Q4H PRN 10/08/23 10/13/23 aerosol inhaler shortness of breath or wheezing amitriptyline 75 mg tablet 75 mg PO QPM 10/08/23 10/13/23 budesonide-formoterol HFA 160 1 puff inhalation Q12H 10/08/23 10/13/23 mcg-4.5 mcg/actuation aerosol inhaler (Symbicort) cetirizine 10 mg tablet 10 mg PO DAILY 10/08/23 10/13/23 duloxetine 60 mg capsule,delayed 60 mg PO BID 10/08/23 10/13/23 release gabapentin 600 mg tablet 600 mg PO QID 10/08/23 10/13/23 hydroxyzine HCl 50 mg tablet 50 mg PO TID PRN anxiety 10/08/23 10/13/23 liraglutide 0.6 mg/0.1 mL (18 mg/3 1.8 mg subcut DAILY 10/08/23 10/13/23 mL) subcutaneous pen injector (Victoza 2-Florentino) meloxicam 7.5 mg tablet 7.5 mg PO DAILY 10/08/23 10/13/23 norethindrone (contraceptive) 0.35 0.35 mg PO DAILY 10/08/23 10/13/23 mg tablet (Deblitane) pantoprazole 20 mg tablet,delayed 20 mg PO DAILY 10/08/23 10/13/23 release tizanidine 4 mg tablet 4 mg PO TID PRN muscle spasticity 10/08/23 10/13/23 topiramate 25 mg tablet 25 mg PO QPM 10/08/23 10/13/23 Allergies Allergy/AdvReac Type Severity Reaction Status Date / Time No Known Drug Allergies Allergy Verified 10/08/23 18:17 Review of Systems ROS Constitutional Denies: fever or chills Ears, nose, mouth, and throat Denies: throat pain Cardiovascular Denies: chest pain Respiratory Denies: shortness of breath or cough Gastrointestinal Denies: nausea or vomiting Musculoskeletal Denies: back pain or neck pain Integumentary/Breast Denies: rash Neurological Reports: dizziness; Denies: headache Hematologic/Lymphatic Denies: easy bruising or easy bleeding Exam Narrative Exam Narrative: Gen.: Awake, alert, in no distress Head: Normocephalic, atraumatic ENT: Moist mucous membranes Respiratory: No respiratory distress, lungs clear bilaterally Cardio: Regular rate and rhythm Gastrointestinal: Abdomen is soft, nondistended and nontender to palpation Extremities: Moves extremities equally Psych: Normal mood and affect Neuro: No focal neuro deficit Skin: Warm, dry, intact Constitutional Vital Signs, click to edit/add: Last Vital Signs Temp 98.4 F 10/13/23 18:12 Pulse 97 H 10/13/23 19:40 Resp 18 10/13/23 19:40 BP 113/69 10/13/23 18:12 Pulse Ox 97 10/13/23 19:40 O2 Del Method Room Air 10/13/23 18:12 Course Vital Signs Vital signs: Vital Signs Temperature 98.4 F 10/13/23 18:12 Pulse Rate 69 10/13/23 18:12 Respiratory Rate 22 10/13/23 18:12 Blood Pressure 113/69 10/13/23 18:12 Pulse Oximetry 95 10/13/23 18:12 Oxygen Delivery Method Room Air 10/13/23 18:12 Temperature 98.4 F 10/13/23 18:12 Pulse Rate 97 H 10/13/23 19:40 Respiratory Rate 18 10/13/23 19:40 Blood Pressure 113/69 10/13/23 18:12 Pulse Oximetry 97 10/13/23 19:40 Oxygen Delivery Method Room Air 10/13/23 18:12 Medical Decision Making MDM Narrative Medical decision making narrative: CT of the brain, lab studies, EKG show the patient has acute kidney injury, more significant than previous. She was given IV fluids although she has no complaints of pain, vomiting. Her CTA of the chest, chest x-ray did not show any acute process, previous labs were grossly unremarkable. I discussed with the patient that she should be admitted for IV fluids and to track her creatinine. She is admitted to hospitalist service for further evaluation. She was instructed to give us urine specimen, renal ultrasound was ordered and respiratory panel was added as she has abnormal cells on her peripheral smear, she does not currently have any other infectious symptoms, fevers or vomiting. She is not on any medications that cause diuresis.At this time, she will be treated for acute kidney injury with gentle IV fluids. Stable at time of admission to the floor with stable vital signs Medical Records Medical records reviewed: Yes I reviewed the patient's medical records Lab Data Lab results reviewed: Yes I reviewed the patient's lab results Labs: Lab Results 10/13/23 Range/Units 18:31 WBC 15.7 H (4.0-11.0) 10^3/uL RBC 3.75 L (4.20-5.40) 10^6/uL Hgb 11.7 L (12.0-16.0) g/dL Hct 35.2 L (36.0-48.0) % MCV 93.9 (81.0-99.0) fL MCH 31.2 (26.7-34.0) pg MCHC 33.2 (29.9-35.2) g/dL RDW 14.6 (11.0-15.0) % Plt Count 445 (150-450) 10^3/uL MPV 9.0 L (9.5-13.5) fL Seg Neuts % (Manual) 73.0 Band Neutrophils % 1.0 (0-5) % Lymphocytes % (Manual) 13.0 L (20.5-60.0) % Atypical Lymphs % (Man) 1.0 % Monocytes % (Manual) 10.0 (1.7-12.0) % Eosinophils % (Manual) 1.0 (0.9-7.0) % Basophils % (Manual) 0.0 L (0.2-2.0) % Myelocytes % 1.0 Neutrophils # (Manual) 11.46 H (1.4-6.5) 10^3/uL Band Neutrophils # 0.2 (0.0-0.3) 10^3/uL Lymphocytes # (Manual) 2.04 (1.20-3.80) 10^3/uL Abs Atypical Lymphs Man 0.15 Monocytes # (Manual) 1.57 H (0.30-0.80) 10^3/uL Eosinophils # (Manual) 0.15 (0.00-0.70) 10^3/uL Basophils # (Manual) 0.00 (0.00-0.10) 10^3/uL Myelocytes # 0.15 Polychromasia 2+ Hypochromasia 2+ Stomatocytes 3+ Sodium 136 (136-145) mmol/L Potassium 4.3 (3.5-5.1) mmol/L Chloride 102 (98-107) mmol/L Carbon Dioxide 23.8 (21.0-32.0) mmol/L Anion Gap 14.5 BUN 40.0 H (7.0-18.0) mg/dL Creatinine 2.63 H (0.55-1.02) mg/dL Est GFR ( Amer) 23 L (>=60) Est GFR (Non-Af Amer) 19 L (>=60) BUN/Creatinine Ratio 15.2 Glucose 91 (74-106) mg/dL Calcium 8.4 L (8.5-10.1) mg/dL Magnesium 2.0 (1.8-2.4) mg/dL Total Bilirubin 0.2 (0.2-1.0) mg/dL AST 12 L (15-37) U/L ALT 22 (14-59) U/L Alkaline Phosphatase 91 (46-116) U/L Troponin I High Sens <4.0 L (4.0-51.3) pg/mL Total Protein 6.9 (6.4-8.2) g/dL Albumin 3.1 L (3.4-5.0) g/dL Globulin 3.8 g/dL Albumin/Globulin Ratio 0.8 Monoscreen Negative (NEGATIVE) Imaging Data CT scan - head: Attestation: I have reviewed the pertinent imaging results. Radiologist's impression: ITS Impressions Head CT 10/13/23 18:22 IMPRESSION: No acute intracranial process. Electronically authenticated by: EDE CUADRA Date: 10/13/2023 19:21 ECG Data Attestation: I personally reviewed and interpreted this ECG as follows: (Sinus tachycardia at a rate of 106, no acute ST elevation or ectopy. EKG reviewed by attending physician) Discharge Plan Discharge Chief Complaint: Recheck/Abnormal Lab/Rx Patient Disposition: Admitted as Observation Time of Disposition Decision: 20:43 Prescriptions / Home Meds: No Action albuterol sulfate 90 mcg/actuation HFA aerosol inhaler 2 puff INHALATION Q4H PRN (Reason: shortness of breath or wheezing) amitriptyline 75 mg tablet 75 mg PO QPM cetirizine 10 mg tablet 10 mg PO DAILY budesonide-formoterol [Symbicort] 160-4.5 mcg/actuation HFA aerosol inhaler 1 puff INHALATION Q12H duloxetine 60 mg capsule,delayed release(DR/EC) 60 mg PO BID gabapentin 600 mg tablet 600 mg PO QID hydroxyzine HCl 50 mg tablet 50 mg PO TID PRN (Reason: anxiety) Victoza 2-Florentino 0.6 mg/0.1 mL (18 mg/3 mL) pen injector 1.8 mg SUBCUT DAILY meloxicam 7.5 mg tablet 7.5 mg PO DAILY norethindrone (contraceptive) [Deblitane] 0.35 mg tablet 0.35 mg PO DAILY pantoprazole 20 mg tablet,delayed release (DR/EC) 20 mg PO DAILY tizanidine 4 mg tablet 4 mg PO TID PRN (Reason: muscle spasticity) topiramate 25 mg tablet 25 mg PO QPM Stand Alone Forms: Portal Instructions Referrals: LIT TORRES [Primary Care Provider] - 1 week
[2023-10-13] MEDS: 0.9 % SODIUM CHLORIDE 1,000 ML 999 ML IV (18:45)
[2023-10-13 18:46] LABS: Hematocrit 35.2 % (36.0-48.0); Hemoglobin 11.7 g/dL (12.0-16.0); Mean Corpuscular HGB Conc 33.2 g/dL (29.9-35.2); Mean Corpuscular Hemoglobin 31.2 pg (26.7-34.0); Mean Corpuscular Volume 93.9 fL (81.0-99.0); Platelet Count 445 10^3/uL (150-450); Red Blood Count 3.75 10^6/uL (4.20-5.40); Red Cell Distribution Width 14.6 % (11.0-15.0); White Blood Count 15.7 10^3/uL (4.0-11.0)
[2023-10-13 19:03] LABS: Band Neutrophils Absolute 0.2 10^3/uL (0.0-0.3); Lymphocytes Absolute Manual 2.04 10^3/uL (1.20-3.80); Segmented Neut Absolute Manual 11.46 10^3/uL (1.4-6.5)
[2023-10-13 19:04] LABS: Atypical Lymphocytes Abs Man 0.15; Eosinophils Absolute Manual 0.15 10^3/uL (0.00-0.70); Hypochromasia 2+; Monocytes Absolute Manual 1.57 10^3/uL (0.30-0.80); Myelocytes Absolute Manual 0.15; Polychromasia 2+; Stomatocytes 3+
[2023-10-13 19:06] LABS: Alanine Aminotransferase 22 U/L (14-59); Albumin Globulin Ratio 0.8; Albumin Level 3.1 g/dL (3.4-5.0); Alkaline Phosphatase 91 U/L (46-116); Anion Gap 14.5; Aspartate Amino Transferase 12 U/L (15-37); BUN Creatinine Ratio 15.2; Bilirubin Total 0.2 mg/dL (0.2-1.0); Calcium 8.4 mg/dL (8.5-10.1); Carbon Dioxide 23.8 mmol/L (21.0-32.0); Chloride 102 mmol/L (98-107); Estimated GFR (African America 23 (>=60); Estimated GFR (Non-African Ame 19 (>=60); Globulin 3.8 g/dL; Glucose 91 mg/dL (74-106); Potassium 4.3 mmol/L (3.5-5.1); Sodium 136 mmol/L (136-145); Total Protein 6.9 g/dL (6.4-8.2); Troponin I High Sensitivity <4.0 pg/mL (4.0-51.3)
--- NOTE | 2023-10-13 19:16 | US_ITS ---
The [address] [address] Patient Name: JOSELITO VIDAL MRN: [id number] date: 1970 Sex: F Assigned Patient Location: ER Current Patient Location: [place] Accession/Order Number: [id number] Exam Date: 10/13/2023 20:32 Report Date: 10/13/2023 21:16 At the request of: SHERLEY DOBBINS Procedure: US renal BI Renal ultrasound 10/13/2023 8:32 PM EST. Indication: Acute kidney injury. Comparison: None. Findings: Right kidney measures 9.8 cm, and the left kidney measures 11.3 cm in length. Nonobstructing calculus in the lower pole right kidney measures up to 0.5 cm. No hydronephrosis or contour deforming solid renal mass. A partially filled bladder is seen in the pelvis and appears grossly unremarkable sonographically. Pre-void urinary bladder volume: 395 cc US/US renal BI IMPRESSION: 1. Small nonobstructing right renal calculus. No hydronephrosis. Electronically authenticated by: HONEY GARDNER Date: 10/13/2023 21:16
[2023-10-13 19:26] LABS: Mono Screen NEGATIVE (NEGATIVE)
[2023-10-13 20:30] LABS: Adenovirus NOT DETECTED (NOT DETECTE); Bordetella parapertussis NOT DETECTED (NOT DETECTE); Coronavirus 229E NOT DETECTED (NOT DETECTE); Coronavirus HKU1 NOT DETECTED (NOT DETECTE); Coronavirus NL63 NOT DETECTED (NOT DETECTE); Coronavirus OC43 NOT DETECTED (NOT DETECTE); Human Metapneumovirus NOT DETECTED (NOT DETECTE); Human Rhinovirus/Enterovirus NOT DETECTED (NOT DETECTE); Influenza A NOT DETECTED (NOT DETECTE); Influenza B NOT DETECTED (NOT DETECTE); Mycoplasma pneumoniae NOT DETECTED (NOT DETECTE); Parainfluenza Virus 1 NOT DETECTED (NOT DETECTE); Parainfluenza Virus 2 NOT DETECTED (NOT DETECTE); Parainfluenza Virus 3 NOT DETECTED (NOT DETECTE); Parainfluenza Virus 4 NOT DETECTED (NOT DETECTE); Respiratory Syncytial Virus NOT DETECTED (NOT DETECTE); SARS-CoV-2 NOT DETECTED (NOT DETECTE)
[2023-10-13] MEDS: 0.9 % SODIUM CHLORIDE 1,000 ML 125 ML IV (21:11)
--- OUTSIDE RECORDS SUMMARY | 2023-10-13 21:58 | XMS_ITS | CCD ---
Author Name Unknown Address [address] [place] [address] Organization [facility] Care Team Providers Care Coremaker Experimental Name Role Phone EDIE SINGH Referring Unavailable EDIE SINGH Primary Care Unavailable Edie Singh Primary Care Provider [phone] Edie Singh Unavailable Edie Singh Unavailable Pop Blandon Unavailable Ellie Torres Unavailable NON STAFF Primary Care Provider UnavailDO Reinaldo Gutierrez Emergency Provider [phone] LUCY Torres Primary Care Provider LUCY Torres Attending Provider SOBEIDA Torres-Ruperto Ellie Primary Care Provider SOBEIDA Torres-C Ellie Attending Provider DO Edie Bolton Emergency Provider RadhaazSusana Jeong Unavailable Danya Carty Unavailable Serene Bustos Unavailable AGUSTO Ellis Attending Provider [phone] ELLIE TORRES Consulting Unavailable JUAN JOSE, ELLIE [...] JOSE, ELLIE Attending Unavailable Gurmeet Olmedo Unavailable SOBEIDA Torres-C Ellie Primary Care Provider SOBEIDA Torres-C Ellie Attending Provider DO Edie Bolton Emergency Provider AGUSTO Sung Attending Provider BROOKLYNN Carty Referring Provider MD Gurmeet Olmedo [...] a day for 30 days Oct, Active [id number] actuat albuterol 0.09 mg/actuat metered dose [...] Active Start: 06-12-2021 take 1 capsule by [facility] every twelve hours Cefdinir 300 MG 1 [...] Active Start: 04-06-2022 take 1 capsule by [facility] every twelve hours DULoxetine HCl 40 MG 1 capsule Orally Twice a day for 30 day(s) Mar, Active Start: 04-06-2022 take 1 capsule by [facility] every twelve hours DULoxetine HCl 20 MG [...] Active Start: 09-29-2021 take 1 capsule by [facility] every eight hours Gabapentin 300 MG 1 [...] Active Start: 06-25-2022 take 1 tablet by [facility] twice daily hydrOXYzine HCl 10 MG 1 [...] Depo-Medrol 80 mg Nov, 60 mg nystatin [id number] unt/ml oral suspension (1 source) Polyene Antifungal Start: 07-20-2022 take 5 mL by mouth four times daily Nystatin 230221 UNIT/ML 5 ml Mouth/Throat Four times a [...] Start: 10-29-2022 take 1 capsule by mo [facility] every twelve hours Pregabalin 150 MG 1 [...] wo conon MR lumbar spine wo con [facility] [place] [address] [place] [address] MRI Report Signed Patient: Mariana Kelly MR#: [id number] : 1970 Acct:[id number] Age/Sex: 52 / F ADM Date: 06/18/23 Loc: MR Room: Type: [facility] Attending Dr: Gurmeet Plaacios DO Copies to: Gurmeet Palacios DO Ordering [...] Arianna Urena M.D.06/18/2023 8:28 PM Dictation Location: [place] [address] Transcribed By: [facility] 06/18/232027 Dictated By: Arianna Urena MD 06/18/232010 Signed By: 06/18/2320[address] [facility] Coding Summary.on 12-10-2022 Coding Summary. CD:[id number] Ww+PG hlYWQ+GN0ADGJpT71ziTDilJ7 sN9MTYGkVTeckHTRJVCoBNfMr xbNqDH3gvLEyQAVg IC8+CW3yUNUxHnkumOPsb3M7u SC9F97rlz2dJSvyyCU1VEDyLj Sszmwgz2wooGr6QKxfBzzoRdW t NKYfnA77AXX5tA17Zy31gPDds HNpo6jgwKa6IiMjTZLdIAG5wN blANrco1KdQVKtR45wgQJnk8V 6 TDAofGrlfGEoMaHemQQ7iD5sI Scrooite7avnpzuHzi1ln32fV Gzq9M4xFZ1J2WkmnD1HBIktSS g JntyeZEJeJ0gyuoym1moxkfrM fEzFOJzKKm4PEt0HIHhnFrwXu IcRP02UXP5ZWJqztDrN4FkFPR s yAnpJzD8g3R7Lh7MC1YDBpmpY 1VNTUFSWTwvdGQ+BM00rw24V7 YdUsfjMoz0CQLuBMP4nSE4sD5 n QCJhADday1J6aGA7V2XdcyCeq q2nl7neTSCbYDanI53igYAbe8 U8SXSvzYP5GZVdyNvzIyCgoD8 3 Oyc+XKTqsIlar2OvQrgdz9hlx 4mkaVl6SpsxAAZqkfVyvJkgCF I6o4DbQv6wCRSpqYZ1iTO6eC4 i KvMrJdM0RKvrQ189AcTgvXCgF nldT25tI6NcmJJ+WLUqVur2DR XpfQdaXB8rC4ZlSFFtcndqaVD m rWneOP0dCSWjcyjwCKMevU8kN SZkS2b4WdJiNgJ6JSpnI0RzZY HgqcgoZj02rE5bSjIdPdJ5VRx u M8LnfwR0HTHkqGQfXIkaQRM1C 34dz6Z0BWXcQPEdAIO3tFI5iT 1hbGlnbjogbGVmdDsgdmVydGl j WBqlDYgaG520FVQeuGnaTmHiM GluZyBEYXRlOiAgMDQvMTMvMj AyMzwvdGQ+GRMiBVD5xRmvRQM n aBQaWWrvHv4nlRtanDmfJV0yL VSxajitXVAclB1aYTZegERrkY wpYS2iEQNlxklra877SpPuKRM 0 GLXryXJvD6LumX0rGsBdJQTpH WPlW9PibHFjOWmmR761LOfzIt I5XYRjtaOhV1QmKNLwaBxvRuZ 0 n6F6An5Lj8UsgzqgF7AjzQVrD tPpNaqeHCp4E2EkSryjsUK+PC 84WYRnQQ23HZw7ASA0rXrmHUf i NUAmP3GjsV8oDwIgVPZtZAJpJ yc+PHRhYmxlIHdpZHRoPScxMD LyZeEhhAsaHD5fPd6aAETiXOW v bAcdxAUbFoAiu4vcSCGzGHqrB Z2nxTjqX9FidFT3NBTui4a8Rm 09D74vM0SafQW+JIQlzNE7jGP 0 kZ9lMnDnZmM9YWsyL228LvSde YCnYagod7ilb3xcgEm1FkH0UQ DjphAbpFmbKMQ3d0KkWk96K87 s IHdpZHRoPSIxNSUiIHZhbGlnb c3pqU0mWk5+BFTquCG9gJA3gH 3hToJuOsH9RAcgW355KlPeyZT v Wkcfs8oen7qesAq0DsFhSHRoh wOdgKdeMQC8r7KkGb59U6QyyZ upu3WkUrb2oo03cRWtz0E5nFD 9 K1KkMLRhcqrvvRCtpJawAE3iO OMitoltESDktR3jQDCkO8l3Ey WhEeP9MFrnF4QqvoJ5HYGsxHS g CRAijRQPeX0csbazv5bkebmjT cXwQRJjQBy4WJv9GSHdtKnhIl XeCWL1EgE6CZU4bRLtyP3ndKg n lmibjN9hMmk+SRC4sUZwhDADZ W8hLjwgrMX+IWYhAAO9fNduXU iiITWjjS0aDNXwX3v6OpUeFtL 1 WMjxV1AtwqF9ATCcmEDvGTMnp HDTyI1rkvpel6ttsoalNuWzYJ SlGIe0COi9TYRlsRguOxLkPBQ 0 CeR4BAF6xPCtbB6ekSvaahqjr G9wOyc+UwhmuNowDST3WWg1A7 QfSut0LVEahBowTY3gaQJpNWd u Ri3qhSkalTzeFV1gQDMnikoyk 413UwRcp4maXGNqnRFbREdeQP C5O39nq8V2FVUtKHZlDYC0tOM 4 fK6giXdrkukjoVQliTwzzlDwv RysIFwcFNlrQ861JEUiwHebPe XoBVf2E1SiNcm6HZUljYbvHH5 n aFPsJPadVn8gzTgscYznXJ1zY DDqgwbcq181TlOjh1bzLKScyE QvRTybQNQ5X47xq0L6ZYTsSCE w MGM1rXT2hR4tiHoejjyhfPIaz XyqhhGpbHhfZQzpKGqvT198TW WodWqcKeEfgJp1J6SpJyf5ZQW z sYsuGO5eeUIxIKyjQk5hzAgzv YarYH4dWUJrsyvfq496NlQth9 lvUAZarFYvVTitSLA9H03dx8U 6 ILKgRSVlEER2gFO5iB1gzJslu jogbGVmdDsgdmVydGljYWwtYW rnL202TWHcjItlHbQszGdoswG g NPrlJPe2S0RtIpnypSC+PC90Y HZkKT86pOIlvGAeb0trdUt4Uf RfBXLhECK6nCibFNxvh5PzXGO t E70kpZAcm9N8MRMaxKgfnCCwR xElbPO9mC0xMEydyoyue2eldu qcZxaik3wogh28uF28Y21fIAz p GPVeBXAhPQStHLOflJadyn3xe G9wIi8+WFYimCC1hKO4qU9cAJ ToCfU6NDhiG625VzYjkMNlOyx j s2meo8qenCd8WaB8QPGlvoQgk XbyZOP0f2HiVp05I02yEChdQG JhGUElXPQdZFSbaVclxb9wpP0 w Ii8+FLLktSU7qYX6uF4kZnTrO dE5PJhlB959EvDchYXrHbdhQ2 4wB1SbtMP+SFQlRvr1DYHzpVr s YL3lpXIvIFryIq8rCHX0FwIlE jFcVMgaT2OoIXUdmsyakpqhxZ Z9YBJzKFCbbJ41Mr3jwSdvLVT w iOIRiX4pgkjig3pmwrkbPsZvO VIwLEp2VJq9SNCpmZmrHvRdXH T4YpW6NUJ1wYUxkO5xuZfenrf g mK4nJ0NaQOOjbfplUz26sK8jW vHmHoD7CGlmOsm+N8eGUDdEUK ZoAKUDAbOOJP15HG52pYGyy8H 5 fMR3N9HhBZWogbphnqgsfMB4P FVqHIJlhK83oEDuUPwwYz0ay3 J9c769FCQmLKOpuU57Oa2dyMe g OBQjoTISmQ9offfae7hsmaslS jUyPSZoXWc3MRr0SAMddMhuIa SrZKB3GhA4TSU9aVYxwS0dvEg n hiequE6yBba+QKDfCNOxTPm1N jwvdGQ+ZNStZJK2iFucWYntML YdfF8fNKZjX5k1ToCnKtE5TXx u Z7RvLXCiyuokMx62hH0tDzGgT kJ5HGjeI0ZgkfB7TPZvbGBlIW kdDLA2B92ca7C9GCNrJZOnFXJ 7 iJM0lF1rwKoyjvgblZUxiIvus cZhbGfxPMxzWSsjL043DTAuiR hiXrPoJErtDMXdVR52TC15cOI g z5M3lGX4Q0UvGCWesmwfoxcfi KK7YVNeCYGlvH24hCZtLBqrLh 1qk1A9r400LJCaWNEekK43Iy7 u mAtjODBhlQAApA6emfapr8opy plpPsBwWWCaTDi1BCt2SIRdxF czSuKlFPE3MgN9QMH3lQDlrZ3 h rZkmfjdbqW1pHsh+RmVtYWxlP D46GR39fXXft1W5tBC6O2DcMZ ImfnyrxyzosNP9IDIoGTJbhM0 7 fUDiAMvsJh5ju7H6o526CQLvM GPctI52Vj0rbKqeYJBwnKUKnC 3bhbcsj0umqfkmBpNrBLMrPHd 0 KRh2KXRyfHkpAoMtWZR3QcL4X TU3lPTxxU1ioQpxhuckyB1oUa c+LFIkDQYyh5Sky3WzQC67RV8 8 I9MgOapvmLIuoIG+PHRhYmxlI HdpZHRoPScxMDAlJyBzdHlsZT 3aZe3iXIFeSSUrqCjigMJtAiY j e6hsKGThINedLO6qqEoqT5Ebn GH9SDRhj6v3Xv10E37oP3FeoV A+TLJbhID3fTI5qL4eSvGcMlH 2 AMhkB030XnGdpMTxXafju4gga 3cszIk8XiYsYYUjmiNwlYonED E7r9DmKa71P69jNMszTTKmYAI y CQJqMXLsrXctuu8hwB0rDq1+P IArzDR8lLN0iZ8bQfJoDjH1VV kcA159GxVnhGNjAbcoN45oN3Z v dXA+PBAwTsd9UXZvvEqiRL7gi AVmEIwzPi2mVZD5FwFpTeNoTP cuT7KuTGLdulalxuaptGN9WVW u YGEyyO07Xy5dyMhwKs0qOJNbJ BR5ONQumDWbP8QubM4vEpAsNU DwTNZjA5VunPNrQXrnW249SGf l JtV0XHCivgPlG3LtSEWgeBzyR wM9w0Y8Id8LfCfynNRyZP4lWh NbBZv4Q0EtTbz9VIVvfQevLH9 n fRPaGUsmVl1abNrshEvmNK9cG CIopolwi453EtLng0nnUUVsjF PrDOkdUBJ3D43ea8C5YDKiLDI w QKC5gCL6iH0vzWqnsliceLPqs LdyinZtxFpjNUseKTpmX786BQ RdsBymKlPWQae5L1SzFxv2CZW z fRkfRH9zxKTzNOshHk2arEefl VgnPU2tSPGyyouim411IzSya5 mwUJBipWGkMUwoFMC6A70pj7P 6 FWYiCVDdEAV6lSF1jO8ljWwav jogbGVmdDsgdmVydGljYWwtYW wbE621BBIgqGulBb4ZZkv0O9A k Agv6CGUsmTlmIG5xjPJeTTndB n9uuVgllNgpGT9mMSYfkhybx1 92BlKob1rdEKPvwZHmMRrvOAJ 7 Q59sn7B9UFNqAERaFWF2iAS0k Y5zqDcdaatbdZQbjGwcuaDeoS puICqcOAxaN582FOBdwFcaQjW h eWVyOjwvdGQ+ZR72de97H4XdQ lvdCxi6FCGhZKV1qKT4kK7aYD JlSRiwg0C2rQM7A3VmrsVosp4 j y1tnAEIi (more content not included)... Normal [facility] CMPon 12-02-2022 Albumin [Mass/Vol] 3.8 g/dL Normal 3.3-5.0 [facility] Comment on above: Performed By: #### 2 356384, [id number], 5217830, [id number] #### [facility] [address] [place] [address] Albumin/Globulin (S) [Mass conc ratio] 1.3 Normal 1.1-2.2 [facility] Comment on above: Performed By: #### 2 345268, 62499939, 8006096, [id number] #### [facility] [address] [place] [address] ALP [Catalytic activity/Vol] 77 Int._Unit/L Normal 21-98 [facility] Comment on above: Performed By: #### 2 332475, 51372559, 6569570, 37474949 #### [facility] [address] [place] [address] ALT No additional P-5'-P [Catalytic activity/Vol] 21 Int._Unit/L Normal 6-46 [facility] Comment on above: Performed By: #### 2 996280, 60779521, 3881591, 35889917 #### [facility] [address] [place] [address] Anion gap [Moles/Vol] 11 mmol/L Normal 6-16 [facility] Comment on above: Performed By: #### 2 320115, 49082283, 5676017, 51455828 #### [facility] [address] [place] [address] AST [Catalytic activity/Vol] 17 Int._Unit/L Normal 5-43 [facility] Comment on above: Performed By: #### 2 995869, 57873729, 9933432, 07576938 #### [facility] [address] [place] [address] Bilirubin [Mass/Vol] 0.4 mg/dL Normal 0.0-1.1 [facility] Comment on above: Performed By: #### 2 544845, 93731947, 0691129, 53014635 #### [facility] [address] [place] [address] Calcium [Mass/Vol] 9.1 mg/dL Normal 8.9-11.1 [facility] Comment on above: Performed By: #### 2 652242, 26854990, 4114304, 45593678 #### [facility] [address] [place] [address] Chloride [Moles/Vol] 107 mmol/L Normal 101-111 [facility] Comment on above: Performed By: #### 2 218906, 80831121, 6592885, 06835010 #### [facility] [address] [place] [address] CO2 [Moles/Vol] 26 mmol/L Normal 21-31 [facility] Comment on above: Performed By: #### 2 527241, 48969721, 1576564, 25797899 #### [facility] [address] [place] [address] Creatinine [Mass/Vol] 0.9 mg/dL Normal 0.5-1.3 [facility] Comment on above: Performed By: #### 2 130960, 74145889, 0843632, 05560234 #### [facility] [address] [place] [address] Globulin (S) [Mass/Vol] 3.0 g/dL Normal 1.4-4.0 [facility] Comment on above: Performed By: #### 2 753996, 47202221, 4130932, 07494363 #### [facility] [address] [place] [address] Glucose [Mass/Vol] 110 mg/dL Normal 55-199 [facility] Comment on above: Result Comment: If t his glucose result represents a fasting glucose, interpretation should refer to the following reference range: 55-99 mg/dL Performed By: #### 2 526869, 86840597, 1107098, 15911806 #### [facility] [address] [place] [address] Potassium [Moles/Vol] 3.8 mmol/L Normal 3.5-5.3 [facility] Comment on above: Performed By: #### 2 371862, 67938563, 9744727, 05346792 #### [facility] [address] [place] [address] Protein [Mass/Vol] 6.8 g/dL Normal 6.0-7.8 [facility] Comment on above: Performed By: #### 2 328618, 24670402, 9391110, 28944805 #### [facility] [address] [place] [address] Sodium [Moles/Vol] 140 mmol/L Normal 135-145 [facility] Comment on above: Performed By: #### 2 716097, 39886608, 6298966, 91262285 #### [facility] [address] [place] [address] Urea nitrogen [Mass/Vol] 12 mg/dL Normal 5-21 [facility] Comment on above: Performed By: #### 2 515122, 39549655, 0009483, 97666248 #### [facility] [address] [place] [address] Urea nitrogen/Creatinine [Mass ratio] 13 No Units Normal 10-20 [facility] Comment on above: Performed By: #### 2 839744, 73316718, 4418415, 21820374 #### [facility] [address] [place] [address] Lipid Panelon 12-02-2022 Cholesterol [Mass/Vol] 177 mg/dL Normal 120-200 [facility] Comment on above: Performed By: #### 2 833107, 20176676, 0839363, 32684607 #### [facility] [address] [place] [address] Cholesterol in HDL [Mass/Vol] 43 mg/dL Invalid Interpretation Code [facility] Comment on above: Result Comment: HDL > or equal to 60 mg/dL: Low cardiovascular risk HDL < 40 mg/dL : High cardiovascular risk Performed By: #### 2 124393, 35913363, 4318158, 70861064 #### [facility] [address] [place] [address] Cholesterol in LDL [Mass/Vol] 123 mg/dL Normal <=129 [facility] Comment on above: Performed By: #### 2 465717, 26080478, 1874014, 90869259 #### [facility] [address] [place] [address] Cholesterol in VLDL [Mass/Vol] 32 mg/dL Normal 7-40 [facility] Comment on above: Performed By: #### 2 823757, 43830705, 1285481, 12078156 #### [facility] [address] [place] [address] Triglyceride [Mass/Vol] 158 mg/dL High <=149 [facility] Comment on above: Performed By: #### 2 043128, 64525100, 5366190, 35251350 #### [facility] [address] [place] [address] Physician Orderon 12-02-2022 Physician Order [id number]:12 7 Normal [facility] T4 & TSHon 12-02-2022 T4 [Mass/Vol] 7.5 microgram/dL Normal 4.6-9.1 [facility] Comment on above: Performed By: #### 2 711085, 47036968, 3767618, 42029602 #### [facility] [address] [place] 1623257 TSH Qn 0.59 m[IU]/L Normal 0.34-5.60 [facility] Comment on above: Performed By: #### 2 997417, 48535974, 9982935, 19916778 #### [facility] [address] [place] [address] eGFRon 12-02-2022 GFR/1.73 sq M.predicted among blacks MDRD (S/P/Bld) [Vol rate/Area] mL/min/{1.73_m2} Normal >=59 [facility] Comment on above: Order Comment: Order added by Discern Expert. Result Comment: eGFR is race adjusted. AA=. Performed By: #### 2 512467, 66158189, 6649582, 38498786 #### [facility] [address] [place] [address] GFR/1.73 sq M.predicted among non-blacks MDRD (S/P/Bld) [Vol rate/Area] mL/min/{1.73_m2} Normal >=59 [facility] Comment on above: Order Comment: Order added by Discern Expert. Result Comment: [employer] carlos kidney disease could be indicated at eGFR's of less than 60 mL/min/1.73m2. Kidney failure is indicated at less than 15 mL/min/1.73m2. Performed By: #### 2 217939, 39441795, 0939433, 43388302 #### [facility] [address] [place] [address] XR hip RT min 2V(w/wo pelvis )*on 11-07-2022 XR hip RT min 2V(w/wo pelvis)* [facility] [employer] Other XR hip RT min 2V(w/wo pelvis)* [facility] [place] [employer] Other XR hip RT min 2V(w/wo pelvis)* [address] [place] [address] [employer] Other XR hip RT min 2V(w/wo pelvis)* [place] [address] [employer] Other XR hip RT min 2V(w/wo pelvis)* XRay Report [employer] Other XR hip RT min 2V(w/wo pelvis)* Signed [employer] Other XR hip RT min 2V(w/wo pelvis)* Patient: Mariana Kelly MR#: [id number] [employer] Other XR hip RT min 2V(w/wo pelvis)* [address] [employer] Other XR hip RT min 2V(w/wo pelvis)* : 1970 Acct:[id number] [employer] Other XR hip RT min 2V(w/wo pelvis)* Age/Sex: 51 / F ADM Date: 11/07/22 [employer] Other XR hip RT min 2V(w/wo pelvis)* Loc: XDUCLY Room: Type: REG CLI [employer] Other XR hip RT min 2V(w/wo pelvis)* Attending Dr: Ellie Torres [facility] [employer] Other XR hip RT min 2V(w/wo pelvis)* Copies to: ELLIE TORRES [facility] [employer] Other XR hip RT min 2V(w/wo pelvis)* Ordering Provider: ELLIE TORRES [facility] [employer] Other XR hip RT min 2V(w/wo pelvis)* Date of Service: 11/07/22 [employer] Other XR hip RT min 2V(w/wo pelvis)* XR/XR hip RT min 2V(w/wo pelvis)*: Right hip pain [employer] Other XR hip RT min 2V(w/wo pelvis)* Single view pelvis and 2 views of the right hip plain film [employer] Other XR hip RT min 2V(w/wo pelvis)* COMPARISON:None [employer] Other XR hip RT min 2V(w/wo pelvis)* HISTORY:Right hip pain for one year. [employer] Other XR hip RT min 2V(w/wo pelvis)* ACUTE FINDINGS:None [employer] Other XR hip RT min 2V(w/wo pelvis)* DEGENERATIVE CHANGE:Unremarkable [employer] Other XR hip RT min 2V(w/wo pelvis)* SOFT TISSUE FINDINGS:Unremarkable [employer] Other XR hip RT min 2V(w/wo pelvis)* JOINT EFFUSION:None [employer] Other XR hip RT min 2V(w/wo pelvis)* POSTOP CHANGES:None [employer] Other XR hip RT min 2V(w/wo pelvis)* BONY MINERALIZATION:Adequate [employer] Other XR hip RT min 2V(w/wo pelvis)* XR/XR hip RT min 2V(w/wo pelvis)* [employer] Other XR hip RT min 2V(w/wo pelvis)* IMPRESSION:Unremarkable exam [employer] Other XR hip RT min 2V(w/wo pelvis)* Impression dictated by: Juan Adair M.D.11/07/2022 11:54 AM [employer] Other XR hip RT min 2V(w/wo pelvis)* Dictation Location: [place] [address] [employer] Other XR hip RT min 2V(w/wo pelvis)* Transcribed By: PWS 11/07/22 [facility] [employer] Other XR hip RT min 2V(w/wo pelvis)* Dictated By: Juan Adair DO 11/07/22 [facility] [employer] Other XR hip RT min 2V(w/wo pelvis)* Signed By: [employer] Other XR hip RT min 2V(w/wo pelvis)* 11/07/22 [facility] [employer] Other XR hip RT min 2V(w/wo pelvis)* [facility] [place] [address] [place] [address] XRay Report Signed Patient: Mariana Kelly MR#: [id number] : 1970 Acct:[id number] Age/Sex: 51 / F ADM Date: 11/07/22 Loc: XDUCLY Room: Type: [facility] Attending Dr: Ellie AYALA Copies [...] Juan Adair M.D.11/07/2022 11:54 AM Dict[employer] Location: [facility] Transcribed By: [facility] 11/07/22 1154 Dictated By: Juan Adair DO 11/07/221152 Signed By: 11/07/22 115 Normal [facility] XR knee RT 4V*on 11-03-2022 XR knee RT 4V* [facility] [place] [address] [place] [address] XRay Report Signed Patient: Mariana Kelly MR#: [id number] : 1970 Acct:[id number] Age/Sex: 51 / F ADM Date: 11/03/22 Loc: XDUCLY Room: Type: [facility] Attending Dr: Susana LIZ Copies [...] Arianna Urena M.D.11/03/2022 2:56 PM Dict[employer] Location: [facility] Transcribed By: SUKHDEV 11/03/22 1456 Dictated By: Arianna Urena MD 11/03/22 1454 Signed By: 11/03/22 1456 Normal [facility] XR knee RT 4V* [facility] [employer] Other XR knee RT 4V* [facility] Main [facility] [employer] Other XR knee RT 4V* [address] [facility] [employer] Other XR knee RT 4V* [place] [address] No rt [employer] Other XR knee RT 4V* XRay Report [employer] Other XR knee RT 4V* Signed [employer] Other XR knee RT 4V* Patient: Genevieve Kelyl MR#: [id number] [place] [employer] Other XR knee RT 4V* [address] [employer] Other XR knee RT 4V* : 1970 Acct:[id number] [employer] Other XR knee RT 4V* Age/Sex: 51 / F ADM Date: 11/03/22 [employer] Other XR knee RT 4V* Loc: [facility]DUC Room: pe: [facility] [employer] Other XR knee RT 4V* Attending Dr: Susana LIZ [employer] Other XR knee RT 4V* Copies to: AGUSTO Aviles [employer] Other XR knee RT 4V* Ordering Provider: AGUSTO Hernández [employer] Other XR knee RT 4V* Date of Service: 11/03/22 [employer] Other XR knee RT 4V* XR/XR knee RT 4V*: Acute pain of right knee [employer] Other XR knee RT 4V* RIGHT KNEE - 4 views [employer] Other XR knee RT 4V* CLINICAL HISTORY: Ri ght knee pain for the past 2 weeks. No recent injury. [employer] Other XR knee RT 4V* COMPARISON: None [place] Other XR knee RT 4V* AP, lateral and both oblique views were obtained. There is no evidence of fracture or dislocation. [employer] Other XR knee RT 4V* No disproportionate joint space narrowing is present. There is minimal marginal spurring. Fluid [employer] Other XR knee RT 4V* is present at the suprapatellar bursa. [employer] Other XR knee RT 4V* X R/XR knee RT 4V* [employer] Other XR knee RT 4V* IMPRESSION: [facility] [employer] Other XR knee RT 4V* MINOR DEGENERATIVE CHANGE. [employer] Other XR knee RT 4V* JOINT EFFUSION. [employer] Other XR knee RT 4V* NO ACUTE BONY FINDINGS. [employer] Other XR knee RT 4V* Impression dictated by: Arianna Urena M.D.11/03/2022 2:56 PM [employer] Other XR knee RT 4V* Dictation Location: [facility]-- [employer] Other XR knee RT 4V* Transcribed By: SUKHDEV 11/03/22 [facility] [employer] Other XR knee RT 4V* Dictated By: Arianna Urena MD 11/03/22 [facility] [employer] Other XR knee RT 4V* Signed By: [employer] Other XR knee RT 4V* 11/03/22 [address] [place] [employer] Other Albumin [Mass/volume] in Ser um or PlasmaOrdered By: PROVIDER TEMP on 10-08-2022 Albumin [Mass/Vol] 3.5 g/dL 3.2-5.5 [facility] B-Type Natriuretic Peptideon 10-08-2022 Natriuretic peptide B (Bld) [Mass/Vol] 15.0 pg/mL Normal 5-100 [facility] Comment on above: Result Comment: PERF ORMED BY: [place] [address] PATHOLOGIST SURVEY RESEARCH TEACHER JAZZY HIGGINS M.D. Performed By: #### C BC, CK, CKMB, HS TROP, BNP, CMP #### [facility] [address] [place] [address] [place] Basophils Auto (Bld) [#/Vol] Ordered By: PROVIDER TEMP on 10-08-2022 Basophils (Bld) [#/Vol] 0.1 10*3/uL 0.0-0.2 [facility] Basophils/100 WBC Auto (Bld) Ordered By: PROVIDER TEMP on 10-08-2022 Basophils/100 WBC (Bld) 0.6 % . [facility] Complete Blood Count Auto Di ffon 10-08-2022 Basophils (Bld) [#/Vol] 0.1 10*3/uL Normal 0.0-0.2 [facility] Comment on above: Result Comment: PERF ORMED BY: [facility] [address] [place] [address] PATHOLOGIST SURVEY RESEARCH TEACHER JAZZY HIGGINS M.D. Performed By: #### C BC, CK, CKMB, HS TROP, BNP, CMP #### [facility] [address] Basophils/100 WBC (Bld) 0.6 % Normal . [facility] Comment on above: Performed By: #### C BC, CK, CKMB, HS TROP, BNP, CMP #### [address] Eosinophils (Bld) [#/Vol] 0.2 10*3/uL Normal 0.0-0.45 [facility] Comment on above: Performed By: #### C BC, CK, CKMB, HS TROP, BNP, CMP #### [address] Eosinophils/100 WBC (Bld) 1.0 % Normal . [facility] Comment on above: Performed By: #### C BC, CK, CKMB, HS TROP, BNP, CMP #### [address] Erythrocyte distribution width (RBC) [Ratio] 13.9 % Normal 11.9-15.3 [facility] Comment on above: Performed By: #### C BC, CK, CKMB, HS TROP, BNP, CMP #### [address] Hematocrit (Bld) [Volume fraction] 45.1 % Normal 34.0-46.4 [facility] Comment on above: Performed By: #### C BC, CK, CKMB, HS TROP, BNP, CMP #### [address] Hemoglobin (Bld) [Mass/Vol] 14.9 g/dL Normal 11.8-15.4 [facility] Comment on above: Performed By: #### C BC, CK, CKMB, HS TROP, BNP, CMP #### [address] Lymphocytes (Bld) [#/Vol] 4.6 10*3/uL Normal 1.00-4.8 [facility] Comment on above: Performed By: #### C BC, CK, CKMB, HS TROP, BNP, CMP #### [address] Lymphocytes/100 WBC (Bld) 29.9 % Normal . [facility] Comment on above: Performed By: #### C BC, CK, CKMB, HS TROP, BNP, CMP #### [address] MCH (RBC) [Entitic mass] 30.8 pg Normal 24.7-34.3 [facility] Comment on above: Performed By: #### C BC, CK, CKMB, HS TROP, BNP, CMP #### [address] MCV (RBC) [Entitic vol] 93.5 fL Normal 80-100 [facility] Comment on above: Performed By: #### C BC, CK, CKMB, HS TROP, BNP, CMP #### [address] Mean Corpuscular HGB Conc 33.0 g/dL Normal 32.0-35.0 [facility] Comment on above: Performed By: #### C BC, CK, CKMB, HS TROP, BNP, CMP #### [address] Monocytes (Bld) [#/Vol] 1.1 10*3/uL High 0.0-0.8 [facility] Comment on above: Performed By: #### C BC, CK, CKMB, HS TROP, BNP, CMP #### [address] Monocytes/100 WBC (Bld) 15.04 % Normal 0.00-20.00 [facility] Comment on above: Performed By: #### C BC, CK, CKMB, HS TROP, BNP, CMP #### [address] Monocytes/100 WBC (Bld) 7.1 % Normal . [facility] Comment on above: Performed By: #### C BC, CK, CKMB, HS TROP, BNP, CMP #### [address] Neutrophils (Bld) [#/Vol] 9.5 10*3/uL High 1.8-7.7 [facility] Comment on above: Performed By: #### C BC, CK, CKMB, HS TROP, BNP, CMP #### [address] Neutrophils/100 WBC (Bld) 61.4 % Normal . [facility] Comment on above: Performed By: #### C BC, CK, CKMB, HS TROP, BNP, CMP #### [facility] [address] NRBC% 0.1 /100{WBC} Normal 0-0.5 [facility] Comment on above: Performed By: #### C BC, CK, CKMB, HS TROP, BNP, CMP #### [address] Platelet mean volume (Bld) [Entitic vol] 7.1 fL Normal 6.3-10.7 [facility] Comment on above: Performed By: #### C BC, CK, CKMB, HS TROP, BNP, CMP #### [address] Platelets (Bld) [#/Vol] 357 10*3/uL Normal 150-450 [facility] Comment on above: Performed By: #### C BC, CK, CKMB, HS TROP, BNP, CMP #### [address] RBC (Bld) [#/Vol] 4.83 10*6/uL Normal 3.60-5.00 [facility] Comment on above: Performed By: #### C BC, CK, CKMB, HS TROP, BNP, CMP #### [address] WBC (Bld) [#/Vol] 15.5 10*3/uL High 3.8-11.6 [facility] Comment on above: Performed By: #### C BC, CK, CKMB, HS TROP, BNP, CMP #### [address] Comprehensive Metabolic Pane dread 10-08-2022 Albumin [Mass/Vol] 3.5 g/dL Normal 3.2-5.5 [facility] Comment on above: Performed By: #### C BC, CK, CKMB, HS TROP, BNP, CMP #### [address] Albumin/Globulin [Mass ratio] 1.1 {ratio} Normal [facility] Comment on above: Performed By: #### C BC, CK, CKMB, HS TROP, BNP, CMP #### [address] ALP [Catalytic activity/Vol] 76 U/L Normal 32-92 [facility] Comment on above: Performed By: #### C BC, CK, CKMB, HS TROP, BNP, CMP #### [address] ALT [Catalytic activity/Vol] 22 U/L Normal 10-60 [facility] Comment on above: Performed By: #### C BC, CK, CKMB, HS TROP, BNP, CMP #### [address] Anion gap [Moles/Vol] 10.6 mmol/L Normal 6.0-15.0 [facility] Comment on above: Performed By: #### C BC, CK, CKMB, HS TROP, BNP, CMP #### [address] AST [Catalytic activity/Vol] 14 U/L Normal 10-42 [facility] Comment on above: Performed By: #### C BC, CK, CKMB, HS TROP, BNP, CMP #### [address] Bilirubin [Mass/Vol] 0.5 mg/dL Normal 0.3-1.2 [facility] Comment on above: Performed By: #### C BC, CK, CKMB, HS TROP, BNP, CMP #### [address] Calcium [Mass/Vol] 8.5 mg/dL Normal 8.2-10.2 [facility] Comment on above: Performed By: #### C BC, CK, CKMB, HS TROP, BNP, CMP #### [address] Chloride [Moles/Vol] 101 mmol/L Normal 95-114 [facility] Comment on above: Performed By: #### C BC, CK, CKMB, HS TROP, BNP, CMP #### [address] CO2 [Moles/Vol] 26.8 mmol/L Normal 22.0-30.0 [facility] Comment on above: Performed By: #### C BC, CK, CKMB, HS TROP, BNP, CMP #### [address] Creatinine [Mass/Vol] 0.89 mg/dL Normal 0.44-1.03 [facility] Comment on above: Performed By: #### C BC, CK, CKMB, HS TROP, BNP, CMP #### [address] Creatinine Clr Calc Pharmacy 91.[address] [facility] Comment on above: Result Comment: PERF ORMED BY: [place] [address] PATHOLOGIST SURVEY RESEARCH TEACHER JAZZY HIGGINS M.D. Performed By: #### C BC, CK, CKMB, HS TROP, BNP, CMP #### [address] Estimated GFR ( Dorcas > [address] [facility] Comment on above: Result Comment: GFR estimated reference range: According to KDOQI guidelines, <60 ml/min/1.73m2 is sufficient to diagnose a patient with chronic kidney disease. Performed By: #### C BC, CK, CKMB, HS TROP, BNP, CMP #### [address] Estimated GFR (Non- Am > [address] [facility] Comment on above: Performed By: #### C BC, CK, CKMB, HS TROP, BNP, CMP #### [address] [address] [place] Globulin (S) [Mass/Vol] 3.1 g/dL Normal [facility] Comment on above: Performed By: #### C BC, CK, CKMB, HS TROP, BNP, CMP #### [facility] [address] Glucose [Mass/Vol] 112 mg/dL High 70-100 [facility] Comment on above: Result Comment: [place] Glucose Reference Range is dependent on time and content of last meal. Glucose of more than 200 mg/dL in a nonstressed, ambulatory subject supports the diagnosis of Diabetes Mellitus. ADA recommended reference range Performed By: #### C BC, CK, CKMB, HS TROP, BNP, CMP #### [address] Potassium [Moles/Vol] 3.4 mmol/L Low 3.5-5.1 [facility] Comment on above: Performed By: #### C BC, CK, CKMB, HS TROP, BNP, CMP #### [address] Protein [Mass/Vol] 6.6 g/dL Normal 6.1-7.9 [facility] Comment on above: Performed By: #### C BC, CK, CKMB, HS TROP, BNP, CMP #### [address] Sodium [Moles/Vol] 135 mmol/L Low 136-146 [facility] Comment on above: Performed By: #### C BC, CK, CKMB, HS TROP, BNP, CMP #### [place] [address] [place] Urea nitrogen [Mass/Vol] 13 mg/dL Normal 9-23 [facility] Comment on above: Performed By: #### C BC, CK, CKMB, HS TROP, BNP, CMP #### [address] Creatine Kinaseon 10-08-2022 CK [Catalytic activity/Vol] 65 U/L Normal 22-269 [facility] Comment on above: Performed By: #### C BC, CK, CKMB, HS TROP, BNP, CMP #### [facility] [address] [place] [address] [place] Creatine kinase [Enzymatic a ctivity/volume] in Serum or PlasmaOrdered By: PROVIDER TEMP on 10-08-2022 CK [Catalytic activity/Vol] 65 U/L 22-269 [facility] Creatinine Kinase MBon 10-08 CK.MB [Mass/Vol] 1.2 ng/mL Normal 0.6-6.3 [facility] Comment on above: Performed By: #### C BC, CK, CKMB, HS TROP, BNP, CMP #### [facility] [address] CKMB Relative Index 1.8 % Normal 0.00-2.50 [facility] Comment on above: Performed By: #### C BC, CK, CKMB, HS TROP, BNP, CMP #### [facility] [address] Creatinine and Glomerular fi ltration rate.predicted panel (S/P/Bld)Ordered By: PROVIDER TEMP on 10-08-2022 Creatinine [Mass/Vol] 0.89 mg/dL 0.44-1.03 [facility] Eosinophils Auto (Bld) [#/Vo l]Ordered By: PROVIDER TEMP on 10-08-2022 Eosinophils (Bld) [#/Vol] 0.2 10*3/uL 0.0-0.45 [facility] Eosinophils/100 WBC Auto (Bl d)Ordered By: PROVIDER TEMP on 10-08-2022 Eosinophils/100 WBC (Bld) 1.0 % . [facility] Erythrocyte distribution wid th Auto (RBC) [Ratio]Ordered By: PROVIDER TEMP on 10-08-2022 Erythrocyte distribution width (RBC) [Ratio] 13.9 % 11.9-15.3 [facility] Estimated glomerular filtrat ion rate (GFR) non- AmericanOrdered By: PROVIDER TEMP on 10-08-2022 GFR/1.73 sq M.predicted among non-blacks MDRD (S/P/Bld) [Vol rate/Area] > 60 mL/Min [facility] Globulin Calc (S) [Mass/Vol] Ordered By: PROVIDER TEMP on 10-08-2022 Globulin (S) [Mass/Vol] 3.1 g/dL [facility] Hematocrit Auto (Bld) [Volum e fraction]Ordered By: PROVIDER TEMP on 10-08-2022 Hematocrit (Bld) [Volume fraction] 45.1 % 34.0-46.4 [facility] Hemoglobin [Mass/volume] in BloodOrdered By: PROVIDER TEMP on 10-08-2022 Hemoglobin (Bld) [Mass/Vol] 14.9 g/dL 11.8-15.4 [facility] Laboratory - Chemistry and C hemistry - challengeOrdered By: Edie Bolton on 10-08-2022 Natriuretic peptide B (Bld) [Mass/Vol] 15.0 pg/mL 5-100 [facility] Leukocytes [#/volume] correc aleksey for nucleated erythrocytes in Blood by Automated counOrdered By: PROVIDER TEMP on 10-08-2022 WBC corrected for nucl RBC Auto (Bld) [#/Vol] 15.5 10*3/uL 3.8-11.6 [facility] Lymphocytes Auto (Bld) [#/Vo l]Ordered By: PROVIDER TEMP on 10-08-2022 Lymphocytes (Bld) [#/Vol] 4.6 10*3/uL 1.00-4.8 [facility] Lymphocytes/100 WBC Auto (Bl d)Ordered By: PROVIDER TEMP on 10-08-2022 Lymphocytes/100 WBC (Bld) 29.9 % . [facility] MCH Auto (RBC) [Entitic mass ]Ordered By: PROVIDER TEMP on 10-08-2022 MCH (RBC) [Entitic mass] 30.8 pg 24.7-34.3 [facility] MCHC Auto (RBC) [Mass/Vol]Or dered By: PROVIDER TEMP on 10-08-2022 MCHC (RBC) [Mass/Vol] 33.0 g/dL 32.0-35.0 [facility] MCV Auto (RBC) [Entitic vol] Ordered By: PROVIDER TEMP on 10-08-2022 MCV (RBC) [Entitic vol] 93.5 fL 80-100 [facility] Monocyte distribution width [Entitic volume] in Blood by AutomatedOrdered By: PROVIDER TEMP on 10-08-2022 Monocyte distribution width Auto (Bld) [Entitic vol] 15.04 % 0.00-20.00 [facility] Monocytes Auto (Bld) [#/Vol] Ordered By: PROVIDER TEMP on 10-08-2022 Monocytes (Bld) [#/Vol] 1.1 10*3/uL 0.0-0.8 [facility] Monocytes/100 WBC Auto (Bld) Ordered By: PROVIDER TEMP on 10-08-2022 Monocytes/100 WBC (Bld) 7.1 % . [facility] Neutrophils Auto (Bld) [#/Vo l]Ordered By: PROVIDER TEMP on 10-08-2022 Neutrophils (Bld) [#/Vol] 9.5 10*3/uL 1.8-7.7 [facility] Neutrophils/100 WBC Auto (Bl d)Ordered By: PROVIDER TEMP on 10-08-2022 Neutrophils/100 WBC (Bld) 61.4 % . [facility] No Panel InformationOrdered By: PROVIDER TEMP on 10-08-2022 Estimated GFR () > 60 mL/Min [facility] Comment on above: GFR estimated refere nce range: According to KDOQI guidelines, <60 ml/min/1.73m2 is sufficient to diagnose a patient with chronic kidney disease. Pharmacy Creatinine Clearance (Chem 91.28 [facility] Nucleated erythrocytes [Pres ence] in Blood by Automated countOrdered By: PROVIDER TEMP on 10-08-2022 Nucleated RBC Auto Ql (Bld) 0.1 /100{WBC} 0-0.5 [facility] Platelet mean volume Auto (B ld) [Entitic vol]Ordered By: PROVIDER TEMP on 10-08-2022 Platelet mean volume (Bld) [Entitic vol] 7.1 fL 6.3-10.7 [facility] Platelets Auto (Bld) [#/Vol] Ordered By: PROVIDER TEMP on 10-08-2022 Platelets (Bld) [#/Vol] 357 10*3/uL 150-450 [facility] Protein [Mass/volume] in Ser um or PlasmaOrdered By: PROVIDER TEMP on 10-08-2022 Protein [Mass/Vol] 6.6 g/dL 6.1-7.9 [facility] RBC Auto (Bld) [#/Vol]Ordere d By: PROVIDER TEMP on 10-08-2022 RBC (Bld) [#/Vol] 4.83 10*6/uL 3.60-5.00 [facility] Serum or plasma alanine blanco otransferase measurement without P-5'-P (enzymatic activiOrdered By: PROVIDER TEMP on 10-08-2022 ALT No additional P-5'-P [Catalytic activity/Vol] 22 U/L 10-60 [facility] Serum or plasma albumin/glob ulin mass ratioOrdered By: PROVIDER TEMP on 10-08-2022 Albumin/Globulin [Mass ratio] 1.1 {ratio} [facility] Serum or plasma alkaline shyla sphatase measurement (enzymatic activity/volume)Ordered By: PROVIDER TEMP on 10-08-2022 ALP [Catalytic activity/Vol] 76 U/L 32-92 [facility] Serum or plasma anion gap de terminationOrdered By: PROVIDER TEMP on 10-08-2022 Anion gap [Moles/Vol] 10.6 mmol/L 6.0-15.0 [facility] Serum or plasma aspartate am inotransferase measurement (enzymatic activity/volume)Ordered By: PROVIDER TEMP on 10-08-2022 AST [Catalytic activity/Vol] 14 U/L 10-42 [facility] Serum or plasma calcium rocío urement (mass/volume)Ordered By: PROVIDER TEMP on 10-08-2022 Calcium [Mass/Vol] 8.5 mg/dL 8.2-10.2 [facility] Serum or plasma chloride martin surement (moles/volume)Ordered By: PROVIDER TEMP on 10-08-2022 Chloride [Moles/Vol] 101 mmol/L 95-114 [facility] Serum or plasma creatine kin ase MB (CKMB)/total creatine kinase (CK) ratio by calculaOrdered By: PROVIDER TEMP on 10-08-2022 CK.MB Calc [Catalytic fraction] 1.8 % 0.00-2.50 [facility] Serum or plasma creatine kin ase MB measurement (mass/volume)Ordered By: PROVIDER TEMP on 10-08-2022 CK.MB [Mass/Vol] 1.2 ng/mL 0.6-6.3 [facility] Serum or plasma glucose rocío urement (mass/volume)Ordered By: PROVIDER TEMP on 10-08-2022 Glucose [Mass/Vol] 112 mg/dL 70-100 [facility] Comment on above: ADA recommended refe rence rangeRandom Glucose Reference Range is dependent on time and content of last meal. Glucose of more than 200 mg/dL in a nonstressed, ambulatory subject supports the diagnosis of Diabetes Mellitus. Serum or plasma potassium me asurement (moles/volume)Ordered By: PROVIDER TEMP on 10-08-2022 Potassium [Moles/Vol] 3.4 mmol/L 3.5-5.1 [facility] Serum or plasma sodium measu rement (moles/volume)Ordered By: PROVIDER TEMP on 10-08-2022 Sodium [Moles/Vol] 135 mmol/L 136-146 [facility] Serum or plasma total biliru bin measurement (mass/volume)Ordered By: PROVIDER TEMP on 10-08-2022 Bilirubin [Mass/Vol] 0.5 mg/dL 0.3-1.2 [facility] Serum or plasma total carbon dioxide measurement (moles/volume)Ordered By: PROVIDER TEMP on 10-08-2022 CO2 [Moles/Vol] 26.8 mmol/L 22.0-30.0 [facility] Serum or plasma urea nitroge n measurement (mass/volume)Ordered By: PROVIDER TEMP on 10-08-2022 Urea nitrogen [Mass/Vol] 13 mg/dL 9-23 [facility] Troponin I High Sensitivityo n 10-08-2022 Troponin I High Sensitivity 3 pg/mL Normal 0-15 [facility] Comment on above: Result Comment: PERF ORMED BY: [facility] [address] [place] [address] PATHOLOGIST SURVEY RESEARCH TEACHER JAZZY HIGGINS M.D. Performed By: #### C BC, CK, CKMB, HS TROP, BNP, CMP #### [place] [id number] [facility] Troponin I.cardiac [Mass/vol ume] in Serum or Plasma by High sensitivity methodOrdered By: PROVIDER TEMP on 10-08-2022 Troponin I.cardiac High sensitivity method [Mass/Vol] 3 pg/mL 0-15 [facility] WBC Auto (Bld) [#/Vol]Ordere d By: PROVIDER TEMP on 10-08-2022 WBC (Bld) [#/Vol] 15.5 10*3/uL 3.8-11.6 [facility] XR chest 2V*on 10-08-2022 XR chest 2V* [facility] [place] [address] XRay Report Signed Patient: Mariana Kelly MR#: [id number] : 1970 Acct:[id number] Age/Sex: 51 / F ADM Date: 10/08/22 Loc: ER Room: Type: [facility] ER Attending Dr: Copies to: Edie [...] Juan Adair M.D.10/08/2022 8:09 PM Dictation Location: [place] [address] Transcribed By: [facility] 10/08/222008 Dictated By: Juan Adair DO 10/08/222006 Signed By: 10/08/222008 Normal [facility] XR chest 2V*on 10-01-2022 XR chest 2V* [facility] Main [address] [address] XRay Report Signed Patient: Mariana Kelly MR#: [id number] : 1970 Acct:[id number] Age/Sex: 51 / F ADM Date: 10/01/22 Loc: XDCLY Room: Type: [facility] Attending Dr: Ellie AYALA Copies [...] Taylor Jr., D.O.10/01/2022 3:33 PM Dictation Location: [facility] Transcribed By: [facility] 10/01/22 1533 Dictated By: Brice Taylor Jr, DO 10/01/22 1532 Signed By: 10/01/22 1533 Normal [facility] XR chest 2V* [facility] [employer] Other XR chest 2V* [facility] Main [facility] [employer] Other XR chest 2V* [address] [facility] [employer] Other XR chest 2V* [place] [address] [facility] [employer] Other XR chest 2V* XRay Report [facility] [employer] Other XR chest 2V* Signed [facility] [employer] Other XR chest 2V* Patient: Genevieve Kelly MR#: [id number] [facility] [employer] Other XR chest 2V* 3649 [facility] [employer] Other XR chest 2V* : 1970 Acct:[id number] [employer] Other XR chest 2V* Age/Sex: 51 / F ADM Date: 10/01/22 [employer] Other XR chest 2V* Loc: XDCLY Room: Typ e: [facility] [employer] Other XR chest 2V* Attending Dr: Emery Torres [facility] [employer] Other XR chest 2V* Copies to: ELLIE TORRES [facility] [employer] Other XR chest 2V* Ordering Provider: ELLIE TORRES [facility] [employer] Other XR chest 2V* Date of Service: 10/01/22 [employer] Other XR chest 2V* XR/XR chest 2V*: COUGH [employer] Other XR chest 2V* Chest 2 views [facility] [employer] Other XR chest 2V* CLINICAL HISTORY: Dr arteaga cough, hoarseness, shortness of breath, wheezing, upper middle back pain for 3 [employer] Other XR chest 2V* weeks. [employer] Other XR chest 2V* COMPARISON: None [employer] Other XR chest 2V* FINDINGS: [employer] Other XR chest 2V* Heart normal in size . Mild left lower lobe linear atelectasis/scarring. No consolidation [employer] Other XR chest 2V* pneumothorax pleural effusion or free air. [employer] Other XR chest 2V* X R/XR chest 2V* [employer] Other XR chest 2V* IMPRESSION: [employer] Other XR chest 2V* MILD LEFT LOWER LOBE LINEAR ATELECTASIS/SCARRING. NO CONSOLIDATION TO SUGGEST PNEUMONIA. [employer] Other XR chest 2V* Impression dictated by: Brice Taylor Jr., D.O.10/01/2022 3:33 PM [employer] Other XR chest 2V* Dictation Location: [facility]-14 [employer] Other XR chest 2V* Transcribed By: PWS 10/01/22 [facility] [employer] Other XR chest 2V* Dictated By: Brice Taylor Jr, DO 10/01/22 [facility] [employer] Other XR chest 2V* Signed By: [employer] Other XR chest 2V* 10/01/22 [facility] [employer] Other A1C HEMOGLOBINon 09-30-2022 HbA1c (Bld) [Mass fraction] 6.1 % [employer] Other HbA1c (Bld) [Mass fraction]o n 09-30-2022 A1C HEMOGLOBIN [employer] Other PROF CHEM 8 (BAS METB)on Anion gap [Moles/Vol] 17.9 mmol/L Normal [facility] Comment on above: Performed By: #### B MP #### [facility] [address] [place] [address] [address] Isabel Wolfe Calcium [Mass/Vol] 9.1 mg/dL Normal 8.5-10.1 [facility] Comment on above: Performed By: #### B MP #### [facility] [address] [place] [address] [address] Isabel Wolfe Chloride [Moles/Vol] 103 mmol/L Normal 98-107 [facility] Comment on above: Performed By: #### B MP #### [facility] [address] [place] [address] [address] Isabel Wolfe CO2 [Moles/Vol] 22.9 mmol/L Normal 21.0-32.0 [facility] Comment on above: Performed By: #### B MP #### [facility] [address] [place] [address] [address] Isabel Wolfe Creatinine [Mass/Vol] 0.92 mg/dL Normal 0.55-1.02 [facility] Comment on above: Performed By: #### B MP #### [facility] [address] [place] [address] [address] Isabel Wolfe EGFR-AF HUNGARIAN >60 Normal >=60 [facility] Comment on above: Performed By: #### B MP #### [facility] [address] [place] [address] [address] Isabel Wolfe EGFR-NON AF HUNGARIAN >60 Normal >=60 [facility] Comment on above: Performed By: #### B MP #### [facility] [address] [place] [address] [address] Isabel Wolfe Glucose [Mass/Vol] 178 mg/dL Critically high 74-106 [facility] Comment on above: Performed By: #### B MP #### [facility] [address] [place] [address] [address] Isabel Wolfe Potassium [Moles/Vol] 3.8 mmol/L Normal 3.5-5.1 [facility] Comment on above: Performed By: #### B MP #### [facility] [address] [place] [address] [address] Isabel Wolfe Sodium [Moles/Vol] 140 mmol/L Normal 136-145 [facility] Comment on above: Performed By: #### B MP #### [facility] [address] [place] [address] [address] Isabel Wolfe Urea nitrogen [Mass/Vol] 11.0 mg/dL Normal 7.0-18.0 [facility] Comment on above: Performed By: #### B MP #### [facility] [address] [place] [address] [address] Isabel Wolfe Urea nitrogen/Creatinine [Mass ratio] 12.0 mg/mg Normal [facility] Comment on above: Performed By: #### B MP #### [facility] [address] [place] [address] [address] Isabel Wolfe COVID + FLU Quick Testingon 09-20-2022 SARS-CoV-2 (COVID-19) RNA PIPER+probe Ql (Unsp spec) Negative [employer] Other COVID + FLU Quick Testing Negative [employer] Other Quick Strepon 09-20-2022 S. pyogenes Org specific cx Ql (Throat) Negative [facility] [employer] Other Quick Strep [facility] [employer] Other Automated erythrocytes count in urine sediment (number/area)Ordered By: Reinaldo Mehta on 09-10-2022 RBC Auto (Urine sed) [#/Area] 1-2 [HPF] 0-4 [facility] Automated leukocytes count i n urine sediment (number/area)Ordered By: Reinaldo Mehta on 09-10-2022 WBC Auto (Urine sed) [#/Area] 3-4 [HPF] 0-4 [facility] Basic Metabolic Panelon 08-30 Anion gap [Moles/Vol] 15.1 mmol/L High 6.0-15.0 [facility] Comment on above: Performed By: #### H EPATIC, CBC, PT, BMP, LIPASE ####[facility] [id number] [place] [id number] [facility] Calcium [Mass/Vol] 9.2 mg/dL Normal 8.2-10.2 [facility] Comment on above: Performed By: #### H EPATIC, CBC, PT, BMP, LIPASE ####[facility] [id number] [place] [address] [facility] Chloride [Moles/Vol] 101 mmol/L Normal 95-114 [facility] Comment on above: Performed By: #### H EPATIC, CBC, PT, BMP, LIPASE ####[facility] [id number] [place] [id number] [facility] CO2 [Moles/Vol] 23.8 mmol/L Normal 22.0-30.0 [facility] Comment on above: Performed By: #### H EPATIC, CBC, PT, BMP, LIPASE ####[place] [address] Creatinine [Mass/Vol] 0.84 mg/dL Normal 0.44-1.03 [facility] Comment on above: Performed By: #### H EPATIC, CBC, PT, BMP, LIPASE ####[address] Creatinine Clr Calc Pharmacy 101.[address] [facility] Comment on above: Performed By: #### H EPATIC, CBC, PT, BMP, LIPASE ####[address] Estimated GFR ( Dorcas > [address] [facility] Comment on above: Result Comment: GFR estimated reference range: According to KDOQI guidelines, <60 ml/min/1.73m2 is sufficient to diagnose a patient with chronic kidney disease. Performed By: #### H EPATIC, CBC, PT, BMP, LIPASE ####[address] Estimated GFR (Non- Am > [address] [facility] Comment on above: Performed By: #### H EPATIC, CBC, PT, BMP, LIPASE ####[address] Glucose [Mass/Vol] 91 mg/dL Normal 70-100 [facility] Comment on above: Result Comment: [facility] Glucose Reference Range is dependent on time and content of last meal. Glucose of more than 200 mg/dL in a nonstressed, ambulatory subject supports the diagnosis of Diabetes Mellitus. ADA recommended reference range Performed By: #### H EPATIC, CBC, PT, BMP, LIPASE ####[address] Potassium [Moles/Vol] 2.9 mmol/L Off scale low 3.5-5.1 [facility] Comment on above: Result Comment: Results called at 1921 on 09/10/22 Performed By: #### H EPATIC, CBC, PT, BMP, LIPASE ####[facility] [id number] Sodium [Moles/Vol] 137 mmol/L Normal 136-146 [facility] Comment on above: Performed By: #### H EPATIC, CBC, PT, BMP, LIPASE ####[facility] [id number] [address] Urea nitrogen [Mass/Vol] 10 mg/dL Normal 9-23 [facility] Comment on above: Performed By: #### H EPATIC, CBC, PT, BMP, LIPASE ####[facility] Whg[address] Basophils Auto (Bld) [#/Vol] Ordered By: Reinaldo Mehta on 09-10-2022 Basophils (Bld) [#/Vol] 0.1 10*3/uL 0.0-0.2 [facility] Basophils/100 WBC Auto (Bld) Ordered By: Reinaldo Mehta on 09-10-2022 Basophils/100 WBC (Bld) 0.6 % . [facility] Bilirubin Test strip Ql (U)O rdered By: Reinaldo Mehta on 09-10-2022 Bilirubin Ql (U) Negative Negative [facility] Body fluid albumin measureme nt (mass/volume)Ordered By: Reinaldo Mehta on 09-10-2022 Albumin (Body fld) [Mass/Vol] 3.6 g/dL 3.2-5.[address] [facility] [address] abdomen pelvis w conon CT abdomen pelvis w con [facility] [place] [address] CT Scan Report Signed Patient: Mariana Kelly MR#: [id number] : 1970 Acct:[id number] Age/Sex: 51 / F ADM Date: 09/10/22 Loc: ER Room: Type: [facility] ER Attending Dr: Copies to: Reinaldo [...] Juan Adair M.D.09/10/2022 8:05 PM Dictation Location: [place] [address] Transcribed By: [facility] 09/10/222004 Dictated By: Juan Adair DO 09/10/222001 Signed By: 09/10/222004 Normal [facility] Color Auto (U)Ordered By: Shady Mehta on 09-10-2022 Color (U) Yellow Yellow [facility] Complete Blood Count Auto Di ffon 09-10-2022 Basophils (Bld) [#/Vol] 0.1 10*3/uL Normal 0.0-0.2 [facility] Comment on above: Result Comment: PERF ORMED BY: [facility] [address] [place] [address] PATHOLOGIST SURVEY RESEARCH TEACHER JAZZY HIGGINS M.D. Performed By: #### H EPATIC, CBC, PT, BMP, LIPASE ####[facility] [id number] [place] [id number] [facility] Basophils/100 WBC (Bld) 0.6 % Normal . [facility] Comment on above: Performed By: #### H EPATIC, CBC, PT, BMP, LIPASE ####[address] Eosinophils (Bld) [#/Vol] 0.2 10*3/uL Normal 0.0-0.45 [facility] Comment on above: Performed By: #### H EPATIC, CBC, PT, BMP, LIPASE ####[address] Eosinophils/100 WBC (Bld) 1.6 % Normal . [facility] Comment on above: Performed By: #### H EPATIC, CBC, PT, BMP, LIPASE ####[address] Erythrocyte distribution width (RBC) [Ratio] 13.6 % Normal 11.9-15.3 [facility] Comment on above: Performed By: #### H EPATIC, CBC, PT, BMP, LIPASE ####[address] Hematocrit (Bld) [Volume fraction] 40.7 % Normal 34.0-46.4 [facility] Comment on above: Performed By: #### H EPATIC, CBC, PT, BMP, LIPASE ####[address] Hemoglobin (Bld) [Mass/Vol] 13.5 g/dL Normal 11.8-15.4 [facility] Comment on above: Performed By: #### H EPATIC, CBC, PT, BMP, LIPASE ####[address] Lymphocytes (Bld) [#/Vol] 3.5 10*3/uL Normal 1.00-4.8 [facility] Comment on above: Performed By: #### H EPATIC, CBC, PT, BMP, LIPASE ####[address] Lymphocytes/100 WBC (Bld) 29.7 % Normal . [facility] Comment on above: Performed By: #### H EPATIC, CBC, PT, BMP, LIPASE ####[address] MCH (RBC) [Entitic mass] 30.5 pg Normal 24.7-34.3 [facility] Comment on above: Performed By: #### H EPATIC, CBC, PT, BMP, LIPASE ####[address] MCV (RBC) [Entitic vol] 91.9 fL Normal 80-100 [facility] Comment on above: Performed By: #### H EPATIC, CBC, PT, BMP, LIPASE ####[address] Mean Corpuscular HGB Conc 33.2 g/dL Normal 32.0-35.0 [facility] Comment on above: Performed By: #### H EPATIC, CBC, PT, BMP, LIPASE ####[address] Monocytes (Bld) [#/Vol] 0.8 10*3/uL Normal 0.0-0.8 [facility] Comment on above: Performed By: #### H EPATIC, CBC, PT, BMP, LIPASE ####[address] Monocytes/100 WBC (Bld) 18.22 % Normal 0.00-20.00 [facility] Comment on above: Performed By: #### H EPATIC, CBC, PT, BMP, LIPASE ####[address] Monocytes/100 WBC (Bld) 6.7 % Normal . [facility] Comment on above: Performed By: #### H EPATIC, CBC, PT, BMP, LIPASE ####[address] Neutrophils (Bld) [#/Vol] 7.2 10*3/uL Normal 1.8-7.7 [facility] Comment on above: Performed By: #### H EPATIC, CBC, PT, BMP, LIPASE ####[address] Neutrophils/100 WBC (Bld) 61.4 % Normal . [facility] Comment on above: Performed By: #### H EPATIC, CBC, PT, BMP, LIPASE ####[address] NRBC% 0.0 /100{WBC} Normal 0-0.5 [facility] Comment on above: Performed By: #### H EPATIC, CBC, PT, BMP, LIPASE ####[address] Platelet mean volume (Bld) [Entitic vol] 7.7 fL Normal 6.3-10.7 [facility] Comment on above: Performed By: #### H EPATIC, CBC, PT, BMP, LIPASE ####[address] Platelets (Bld) [#/Vol] 367 10*3/uL Normal 150-450 [facility] Comment on above: Performed By: #### H EPATIC, CBC, PT, BMP, LIPASE ####[address] RBC (Bld) [#/Vol] 4.42 10*6/uL Normal 3.60-5.00 [facility] Comment on above: Performed By: #### H EPATIC, CBC, PT, BMP, LIPASE ####[address] WBC (Bld) [#/Vol] 11.7 10*3/uL High 3.8-11.6 [facility] Comment on above: Performed By: #### H EPATIC, CBC, PT, BMP, LIPASE ####[address] Creatinine and Glomerular fi ltration rate.predicted panel (S/P/Bld)Ordered By: Reinaldo Mehta on 09-10-2022 Creatinine [Mass/Vol] 0.84 mg/dL 0.44-1.03 [facility] Dipstick and Microscopicon 0 09-10-2022 Appearance (U) Clear Normal Clear [facility] Comment on above: Order Comment: Name Collection Type:: Clean-Voided Midstream Performed By: #### A DDONUAPLUS #### [facility] [address] [place] [address] [place] Bacteria,Urine None Seen Normal None Seen [facility] Comment on above: Order Comment: Name Collection Type:: Clean-Voided Midstream Performed By: #### A DDONUAPLUS #### [place] [address] [place] Bilirubin,Urine Negative Normal Negative [facility] Comment on above: Order Comment: Name Collection Type:: Clean-Voided Midstream Performed By: #### A DDONUAPLUS #### [facility] [address] [place] [address] [place] Color (U) Yellow Normal Yellow [facility] Comment on above: Order Comment: Name Collection Type:: Clean-Voided Midstream Performed By: #### A DDONUAPLUS #### [facility] [address] [place] [address] [place] Glucose Ql (U) Normal Normal Normal [facility] Comment on above: Order Comment: Name Collection Type:: Clean-Voided Midstream Performed By: #### A DDONUAPLUS #### [facility] [address] [place] [address] [place] Hyaline Casts,Urine 0-8 Normal 0-8 [facility] Comment on above: Order Comment: Name Collection Type:: Clean-Voided Midstream Result Comment: PERF ORMED BY: [place] [address] PATHOLOGIST SURVEY RESEARCH TEACHER JAZZY HIGGINS M.D. Performed By: #### A DDONUAPLUS #### [facility] [address] [place] [address] [place] Ketones Ql (U) Trace High Negative [facility] Comment on above: Order Comment: Name Collection Type:: Clean-Voided Midstream Performed By: #### A DDONUAPLUS #### [facility] [address] Leukocyte esterase Test strip Ql (U) 1+ High Negative [facility] Comment on above: Order Comment: Name Collection Type:: Clean-Voided Midstream Performed By: #### A DDONUAPLUS #### [facility] [address] [place] [address] [place] Nitrite,Urine Negative Normal Negative [facility] Comment on above: Order Comment: Name Collection Type:: Clean-Voided Midstream Performed By: #### A DDONUAPLUS #### [address] Occult Blood,Urine Negative Normal Negative [facility] Comment on above: Order Comment: Name Collection Type:: Clean-Voided Midstream Result Comment: PERF ORMED BY: [place] [address] PATHOLOGIST SURVEY RESEARCH TEACHER JAZZY HIGGINS M.D. Performed By: #### A DDONUAPLUS #### [facility] [address] [place] [address] [place] pH (U) 6.0 [pH] Normal 5.0-9.0 [facility] Comment on above: Order Comment: Name Collection Type:: Clean-Voided Midstream Performed By: #### A DDONUAPLUS #### [facility] [address] [place] [address] [place] Protein,Urine Trace High Negative [facility] Comment on above: Order Comment: Name Collection Type:: Clean-Voided Midstream Performed By: #### A DDONUAPLUS #### [facility] [address] [place] [address] [place] RBC,Urine 1-2 Normal 0-4 [facility] Comment on above: Order Comment: Name Collection Type:: Clean-Voided Midstream Performed By: #### A DDONUAPLUS #### [facility] [address] [place] [address] [place] Specificy [place],Urine 1.025 Normal 1.001-1.03 0 [facility] Comment on above: Order Comment: Name Collection Type:: Clean-Voided Midstream Performed By: #### A DDONUAPLUS #### [facility] [address] Squamous Epithelial Cell,Urine 1-2 Normal 0-2 [facility] Comment on above: Order Comment: Name Collection Type:: Clean-Voided Midstream Performed By: #### A DDONUAPLUS #### [facility] [address] Urobilinogen,Urine Normal Normal Normal [facility] Comment on above: Order Comment: Name Collection Type:: Clean-Voided Midstream Performed By: #### A DDONUAPLUS #### [facility] [address] WBC,Urine 3-4 Normal 0-4 [facility] Comment on above: Order Comment: Name Collection Type:: Clean-Voided Midstream Performed By: #### A DDONUAPLUS #### [facility] [address] [place] [address] Direct bilirubin measurement Ordered By: Reinaldo Mehta on 09-10-2022 Bilirubin.direct [Mass/Vol] 0.1 mg/dL 0.0-0.4 [facility] Eosinophils Auto (Bld) [#/Vo l]Ordered By: Reinaldo Mehta on 09-10-2022 Eosinophils (Bld) [#/Vol] 0.2 10*3/uL 0.0-0.45 [facility] Eosinophils/100 WBC Auto (Bl d)Ordered By: Reinaldo Mehta on 09-10-2022 Eosinophils/100 WBC (Bld) 1.6 % . [facility] Erythrocyte distribution wid th Auto (RBC) [Ratio]Ordered By: Reinaldo Mehta on 09-10-2022 Erythrocyte distribution width (RBC) [Ratio] 13.6 % 11.9-15.3 [facility] Estimated glomerular filtrat ion rate (GFR) non- AmericanOrdered By: Reinaldo Mehta on 09-10-2022 GFR/1.73 sq M.predicted among non-blacks MDRD (S/P/Bld) [Vol rate/Area] > 60 mL/Min [facility] Globulin Calc (S) [Mass/Vol] Ordered By: Reinaldo Mehta on 09-10-2022 Globulin (S) [Mass/Vol] 3.1 g/dL [facility] Hematocrit Auto (Bld) [Volum e fraction]Ordered By: Reinaldo Mehta on 09-10-2022 Hematocrit (Bld) [Volume fraction] 40.7 % 34.0-46.4 [facility] Hemoglobin [Mass/volume] in BloodOrdered By: Reinaldo Mehta on 09-10-2022 Hemoglobin (Bld) [Mass/Vol] 13.5 g/dL 11.8-15.4 [facility] Hepatic Panelon 09-10-2022 Albumin [Mass/Vol] 3.6 g/dL Normal 3.2-5.5 [facility] Comment on above: Performed By: #### H EPATIC, CBC, PT, BMP, LIPASE ####[place] [id number] [facility] Albumin/Globulin [Mass ratio] 1.2 {ratio} Normal [facility] Comment on above: Performed By: #### H EPATIC, CBC, PT, BMP, LIPASE ####[place] [address] [place] [address] [facility] ALP [Catalytic activity/Vol] 89 U/L Normal 32-92 [facility] Comment on above: Performed By: #### H EPATIC, CBC, PT, BMP, LIPASE ####[address] [address] [facility] ALT [Catalytic activity/Vol] 16 U/L Normal 10-60 [facility] Comment on above: Performed By: #### H EPATIC, CBC, PT, BMP, LIPASE ####[address] [address] [facility] AST [Catalytic activity/Vol] 15 U/L Normal 10-42 [facility] Comment on above: Performed By: #### H EPATIC, CBC, PT, BMP, LIPASE ####[place] [id number] [facility] Bilirubin [Mass/Vol] 0.5 mg/dL Normal 0.3-1.2 [facility] Comment on above: Performed By: #### H EPATIC, CBC, PT, BMP, LIPASE ####[address] Bilirubin,Indirect 0.4 mg/dL Normal [facility] Comment on above: Performed By: #### H EPATIC, CBC, PT, BMP, LIPASE ####[address] Bilirubin.indirect [Mass/Vol] 0.1 mg/dL Normal 0.0-0.4 [facility] Comment on above: Performed By: #### H EPATIC, CBC, PT, BMP, LIPASE ####[address] Globulin (S) [Mass/Vol] 3.1 g/dL Normal [facility] Comment on above: Performed By: #### H EPATIC, CBC, PT, BMP, LIPASE ####[address] Protein [Mass/Vol] 6.7 g/dL Normal 6.1-7.9 [facility] Comment on above: Performed By: #### H EPATIC, CBC, PT, BMP, LIPASE ####[address] Ketones Auto test strip (U) [Mass/Vol]Ordered By: Reinaldo Mehta on 09-10-2022 Ketones (U) [Mass/Vol] Trace Negative [facility] - Chemistry and C hemistry - challengeOrdered By: Reinaldo Mehta on 09-10-2022 Lipase [Catalytic activity/Vol] 41.0 U/L 22-51 [facility] - CoagulationOrde red By: Reinaldo Mehta on 09-10-2022 PT Coag (PPP) [Time] 13.6 s 9.0-12.9 [facility] - UrinalysisOrder ed By: Reinaldo Mehta on 09-10-2022 Hyaline casts LM Ql (Urine sed) 0-8 [LPF] 0-8 [facility] Leukocytes [#/volume] correc aleksey for nucleated erythrocytes in Blood by Automated counOrdered By: Reinaldo Mehta on 09-10-2022 WBC corrected for nucl RBC Auto (Bld) [#/Vol] 11.7 10*3/uL 3.8-11.6 [facility] Lipaseon 09-10-2022 Lipase [Catalytic activity/Vol] 41.0 U/L Normal 22-51 [facility] Comment on above: Result Comment: PERF ORMED BY: [facility] [address] [place] [address] PATHOLOGIST SURVEY RESEARCH TEACHER JAZZY HIGGINS M.D. Performed By: #### H EPATIC, CBC, PT, BMP, LIPASE ####[facility] [place] [address] [facility] Lymphocytes Auto (Bld) [#/Vo l]Ordered By: Reinaldo Mehta on 09-10-2022 Lymphocytes (Bld) [#/Vol] 3.5 10*3/uL 1.00-4.8 [facility] Lymphocytes/100 WBC Auto (Bl d)Ordered By: Reinaldo Mehta on 09-10-2022 Lymphocytes/100 WBC (Bld) 29.7 % . [facility] MCH Auto (RBC) [Entitic mass ]Ordered By: Reinaldo Mehta on 09-10-2022 MCH (RBC) [Entitic mass] 30.5 pg 24.7-34.3 [facility] MCHC Auto (RBC) [Mass/Vol]Or dered By: Reinaldo Mehta on 09-10-2022 MCHC (RBC) [Mass/Vol] 33.2 g/dL 32.0-35.0 [facility] MCV Auto (RBC) [Entitic vol] Ordered By: Reinaldo Mehta on 09-10-2022 MCV (RBC) [Entitic vol] 91.9 fL 80-100 [facility] Monocyte distribution width [Entitic volume] in Blood by AutomatedOrdered By: Reinaldo Mehta on 09-10-2022 Monocyte distribution width Auto (Bld) [Entitic vol] 18.22 % 0.00-20.00 [facility] Monocytes Auto (Bld) [#/Vol] Ordered By: Reinaldo Mehta on 09-10-2022 Monocytes (Bld) [#/Vol] 0.8 10*3/uL 0.0-0.8 [facility] Monocytes/100 WBC Auto (Bld) Ordered By: Reinaldo Mehta on 09-10-2022 Monocytes/100 WBC (Bld) 6.7 % . [facility] Neutrophils Auto (Bld) [#/Vo l]Ordered By: Reinaldo Mehta on 09-10-2022 Neutrophils (Bld) [#/Vol] 7.2 10*3/uL 1.8-7.7 [facility] Neutrophils/100 WBC Auto (Bl d)Ordered By: Reinaldo Mehta on 09-10-2022 Neutrophils/100 WBC (Bld) 61.4 % . [facility] Nitrite Test strip Ql (U)Ord ered By: Reinaldo Mehta on 09-10-2022 Nitrite Ql (U) Negative Negative [facility] No Panel InformationOrdered By: Reinaldo Mehta on 09-10-2022 Estimated GFR () > 60 mL/Min [facility] Comment on above: GFR estimated refere nce range: According to KDOQI guidelines, <60 ml/min/1.73m2 is sufficient to diagnose a patient with chronic kidney disease. Pharmacy Creatinine Clearance (Chem 101.87 [facility] Nucleated erythrocytes [Pres ence] in Blood by Automated countOrdered By: Reinaldo Mehta on 09-10-2022 Nucleated RBC Auto Ql (Bld) 0.0 /100{WBC} 0-0.5 [facility] Platelet mean volume Auto (B ld) [Entitic vol]Ordered By: Reinaldo Mehta on 09-10-2022 Platelet mean volume (Bld) [Entitic vol] 7.7 fL 6.3-10.7 [facility] Platelet poor plasma interna tional normalized ratio (INR) by coagulation assay (relatOrdered By: Reinaldo Mehta on 09-10-2022 INR Coag (PPP) [Relative time] 1.2 {INR} [facility] Comment on above: INR Therapeutic Rang [...] 4.5 Platelets Auto (Bld) [#/Vol] Ordered By: eRinaldo Mehta on 09-10-2022 Platelets (Bld) [#/Vol] 367 10*3/uL 150-450 [facility] Protein Auto test strip (U) [Mass/Vol]Ordered By: Reinaldo Mehta on 09-10-2022 Protein (U) [Mass/Vol] Trace mg/dL Negative [facility] Protein [Mass/volume] in Ser um or PlasmaOrdered By: Reinaldo Mehta on 09-10-2022 Protein [Mass/Vol] 6.7 g/dL 6.1-7.9 [facility] Prothrombin Time INRon 09-10 INR Coag (PPP) [Relative time] 1.2 {INR} Normal [facility] Comment on above: Result Comment: INR [...] heart valves: 3 - 4.5 PERFORMED BY: [facility] [address] [place] [address] PATHOLOGIST SURVEY RESEARCH TEACHER JAZZY HIGGINS M.D. Performed By: #### H EPATIC, CBC, PT, BMP, LIPASE ####[facility] [id number] [place] [id number] [facility] PT Coag (PPP) [Time] 13.6 s High 9.0-12.9 [facility] Comment on above: Performed By: #### H EPATIC, CBC, PT, BMP, LIPASE ####[facility] [id number] [place] [id number] [facility] RBC Auto (Bld) [#/Vol]Ordere d By: Reinaldo Mehta on 09-10-2022 RBC (Bld) [#/Vol] 4.42 10*6/uL 3.60-5.00 [facility] Serum or plasma alanine blanco otransferase measurement without P-5'-P (enzymatic activiOrdered By: Reinaldo Mehta on 09-10-2022 ALT No additional P-5'-P [Catalytic activity/Vol] 16 U/L 10-60 [facility] Serum or plasma albumin/glob ulin mass ratioOrdered By: Reinaldo Mehta on 09-10-2022 Albumin/Globulin [Mass ratio] 1.2 {ratio} [facility] Serum or plasma alkaline shyla sphatase measurement (enzymatic activity/volume)Ordered By: Reinaldo Mehta on 09-10-2022 ALP [Catalytic activity/Vol] 89 U/L 32-92 [facility] Serum or plasma anion gap de terminationOrdered By: Reinaldo Mehta on 09-10-2022 Anion gap [Moles/Vol] 15.1 mmol/L 6.0-15.0 [facility] Serum or plasma aspartate am inotransferase measurement (enzymatic activity/volume)Ordered By: Reinaldo Mehta on 09-10-2022 AST [Catalytic activity/Vol] 15 U/L 10-42 [facility] Serum or plasma calcium rocío urement (mass/volume)Ordered By: Reinaldo Mehta on 09-10-2022 Calcium [Mass/Vol] 9.2 mg/dL 8.2-10.2 [facility] Serum or plasma chloride martin surement (moles/volume)Ordered By: Reinaldo Mehta on 09-10-2022 Chloride [Moles/Vol] 101 mmol/L 95-114 [facility] Serum or plasma glucose rocío urement (mass/volume)Ordered By: Reinaldo Mehta on 09-10-2022 Glucose [Mass/Vol] 91 mg/dL 70-100 [facility] Comment on above: ADA recommended refe rence rangeRandom Glucose Reference Range is dependent on time and content of last meal. Glucose of more than 200 mg/dL in a nonstressed, ambulatory subject supports the diagnosis of Diabetes Mellitus. Serum or plasma non-glucuron idated bilirubin measurement (mass/volume)Ordered By: Reinaldo Mehta on 09-10-2022 Bilirubin.indirect [Mass/Vol] 0.4 mg/dL [facility] Serum or plasma potassium me asurement (moles/volume)Ordered By: Reinaldo Mehta on 01-12-2023 Potassium [Moles/Vol] 2.9 mmol/L 3.5-5.1 [facility] Comment on above: Results calledat 192 1 on 09/10/22 Serum or plasma sodium measu rement (moles/volume)Ordered By: Reinaldo Mehta on 09-10-2022 Sodium [Moles/Vol] 137 mmol/L 136-146 [facility] Serum or plasma total biliru bin measurement (mass/volume)Ordered By: Reinaldo Mehta on 09-10-2022 Bilirubin [Mass/Vol] 0.5 mg/dL 0.3-1.2 [facility] Serum or plasma total carbon dioxide measurement (moles/volume)Ordered By: Reinaldo Mehta on 09-10-2022 CO2 [Moles/Vol] 23.8 mmol/L 22.0-30.0 [facility] Serum or plasma urea nitroge n measurement (mass/volume)Ordered By: Reinaldo Mehta on 09-10-2022 Urea nitrogen [Mass/Vol] 10 mg/dL 9- [facility] Specific gravity Auto test s trip (U) [Rel density]Ordered By: Reinaldo Mehta on 09-10-2022 Specific gravity (U) [Rel density] 1.025 1.001-1.03 0 [facility] Squamous epithelial cells de tection in urine sediment by light microscopyOrdered By: Reinaldo Mehta on 09-10-2022 Epithelial cells.squamous LM Ql (Urine sed) 1-2 [HPF] 0-2 [facility] Urine bacteria detection by automated methodOrdered By: Reinaldo Mehta on 09-10-2022 Bacteria Auto Ql (U) None seen None Seen [facility] Urine clarity by refractomet ry automatedOrdered By: Reinaldo Mehta on 09-10-2022 Clarity Refractometry automated (U) Clear Clear [facility] Urine glucose measurement by automated test strip (mass/volume)Ordered By: Reinaldo Mehta on 09-10-2022 Glucose Auto test strip (U) [Mass/Vol] Normal mg/dL Normal [facility] Urine hemoglobin detection b y automated test stripOrdered By: Reinaldo Mehta on 09-10-2022 Hemoglobin Auto test strip Ql (U) Negative Negative [facility] Urine leukocyte esterase det ection by automated test stripOrdered By: Reinaldo Mehta on 09-10-2022 Leukocyte esterase Auto test strip Ql (U) 1+ Negative [facility] Urobilinogen Auto test strip (U) [Mass/Vol]Ordered By: Reinaldo Mehta on 09-10-2022 Urobilinogen (U) [Mass/Vol] Normal mg/dL Normal [facility] WBC Auto (Bld) [#/Vol]Ordere d By: Reinaldo Mehta on 09-10-2022 WBC (Bld) [#/Vol] 11.7 10*3/uL 3.8-11.6 [facility] pH Auto test strip (U)Ordere d By: Reinaldo Mehta on 09-10-2022 pH (U) 6.0 [pH] 5.0-9.0 [facility] COVID/FLU RT-PCRon SARS-CoV-2 (COVID-19) RNA PIPER+probe Ql (Unsp spec) Negative [employer] Other COVID/FLU RT-PCR Negative [facility] [employer] Other Quick Strepon 07-02-2022 S. pyogenes Org specific cx Ql (Throat) Negative [place] [employer] Other Tyfone Strep [employer] Other FREE T4on 06-05-2022 Free T4 [Mass/Vol] 0.77 ng/dL Normal 0.76-1.46 [facility] Comment on above: Performed By: #### F T4 #### [facility] [address] [place] [address] Dr. Isabel Wolfe T4on 06-05-2022 T4 [Mass/Vol] 6.20 ug/dL Normal 4.80-13.90 [facility] Comment on above: Performed By: #### T 4, TSH #### [facility] [address] [place] [address] Dr. Isabel Wolfe TSHon 06-05-2022 TSH 0.845 uIU/mL Normal 0.358-3.74 0 [facility] Comment on above: Performed By: #### T 4, TSH #### [facility] [address] [place] [address] [address] Isabel Wolfe MICROALBUMIN/ CREATININE RAT IOon 04-09-2022 Albumin, Urine 4.4 ug/mL Normal Not Estab. [facility] Comment on above: Performed By: #### M ALBCRL #### [facility] [address] [place] [address] Dr. Isabel Wolfe Albumin/ Creatinine Ratio 11 mg/g creat Normal 0-29 [facility] Comment on above: Result Comment: Norm al: 0 - 29 Moderately increased: 30 - 300 Severely increased: >300 Performed By: #### M ALBCRL #### [facility] [address] [place] [address] Dr. Isabel Wolfe Creatinine, Urine 41.2 mg/dL Normal Not Estab. [facility] Comment on above: Performed By: #### M ALBCRL #### [facility] [address] [address] [address] Isabel Wolfe GLYCOHEMOGLOBIN A1Con 2021 ADA RECOMMENDATION SEE BELOW Normal [facility] Comment on above: Result Comment: ADA RECOMMENDED LIMIT 4.0 - 6.0 ADA THERAPEUTIC TARGET < 7.0 ACTION SUGGESTED > 7.0 Performed By: #### A 1C #### [facility] [address] [place] [address] Dr. Isabel Wolfe Glucose [Mass/Vol] 117 mg/dL Normal [facility] Comment on above: Performed By: #### A 1C #### [facility] [address] [address] [address] Isabel Wolfe HbA1c (Bld) [Mass fraction] 5.7 % Normal 4.5-6.2 [facility] Comment on above: Performed By: #### A 1C #### [facility] [address] [place] [address] Dr. Isabel Wolfe LIPID PROFILEon 04-06-2022 CHOL-HDL RATIO NORM SEE BELOW Normal [facility] Comment on above: Result Comment: 3.3 - 4.4 LOW RISK 4.4 - 7.1 AVERAGE RISK 7.1 - 11.0 MODERATE RISK >11.0 HIGH RISK Performed By: #### L IPID, CMP #### [facility] [address] [address] [address] Isabel Wolfe Cholesterol [Mass/Vol] 165 mg/dL Normal <=200 [facility] Comment on above: Performed By: #### L IPID, CMP #### [facility] [address] [address] [address] Isabel Wolfe Cholesterol in HDL [Mass/Vol] 38 mg/dL Critically low 40-60 [facility] Comment on above: Performed By: #### L IPID, CMP #### [facility] [address] [address] [address] Isabel Wolfe Cholesterol in LDL [Mass/Vol] 110.0 mg/dL Normal [facility] Comment on above: Performed By: #### L IPID, CMP #### [facility] [address] [place] [address] Dr. Isabel Wolfe Cholesterol.total/Chol esterol in HDL [Mass ratio] 4.3 {ratio} Normal [facility] Comment on above: Performed By: #### L IPID, CMP #### [facility] [address] [address] [address] Isabel Wolfe HDL NORMAL > or = 60 mg/dl - LO W CARDIOVASCULAR RISK <40 mg/dl - HIGH CARDIOVASCULAR RISK Normal [facility] Comment on above: Performed By: #### L IPID, CMP #### [facility] [address] [address] [address] Isabel Wolfe LDL CALC NORMAL SEE BELOW Normal [facility] Comment on above: Result Comment: <100 mg/dl OPTIMAL 100 - 129 mg/dl NEAR OR ABOVE OPTIMAL 130 - 159 mg/dl BORDERLINE HIGH 160 - 189 mg/dl HIGH >190 mg/dl VERY HIGH Performed By: #### L IPID, CMP #### [facility] [address] [address] [address] Isabel Wolfe Triglyceride [Mass/Vol] 85 mg/dL Normal <=150 [facility] Comment on above: Performed By: #### L IPID, CMP #### [facility] [address] [place] [address] Dr. Isabel Wolfe VLDL CALC 17.0 mg/dL Normal [facility] Comment on above: Performed By: #### L IPID, CMP #### [facility] [address] [place] [address] Dr. Isabel Wolfe PROF 14(COMP METB)on 022 Albumin [Mass/Vol] 3.3 g/dL Critically low 3.4-5.0 [facility] Comment on above: Performed By: #### L IPID, CMP #### [facility] [address] [place] [address] Dr. Isabel Wolfe Albumin/Globulin [Mass ratio] 0.9 {ratio} Normal [facility] Comment on above: Performed By: #### L IPID, CMP #### [facility] [address] [place] [address] Dr. Isabel Wolfe ALP [Catalytic activity/Vol] 86 U/L Normal 46-116 [facility] Comment on above: Performed By: #### L IPID, CMP #### [facility] [address] [place] [address] Dr. Isabel Wolef ALT [Catalytic activity/Vol] 17 U/L Normal 14-59 [facility] Comment on above: Performed By: #### L IPID, CMP #### [facility] [address] [place] [address] Dr. Isabel Wolfe Anion gap [Moles/Vol] 14.3 mmol/L Normal [facility] Comment on above: Performed By: #### L IPID, CMP #### [facility] [address] [place] [address] Dr. Isabel Wolfe AST [Catalytic activity/Vol] 10 U/L Critically low 15-37 [facility] Comment on above: Performed By: #### L IPID, CMP #### [facility] [address] [place] [address] Dr. Isabel Wolfe Bilirubin [Mass/Vol] 0.5 mg/dL Normal 0.2-1.0 [facility] Comment on above: Performed By: #### L IPID, CMP #### [facility] [address] [address] [address] Isabel Wolfe Calcium [Mass/Vol] 9.0 mg/dL Normal 8.5-10.1 [facility] Comment on above: Performed By: #### L IPID, CMP #### [facility] [address] [address] [address] Isabel Wolfe Chloride [Moles/Vol] 104 mmol/L Normal 98-107 [facility] Comment on above: Performed By: #### L IPID, CMP #### [facility] [address] [address] [address] Isabel Wolfe CO2 [Moles/Vol] 25.8 mmol/L Normal 21.0-32.0 [facility] Comment on above: Performed By: #### L IPID, CMP #### [facility] [address] [place] [address] Dr. Isabel Wolfe Creatinine [Mass/Vol] 0.95 mg/dL Normal 0.55-1.02 [facility] Comment on above: Performed By: #### L IPID, CMP #### [facility] [address] [address] [address] Isabel Wolfe EGFR-AF HUNGARIAN >60 Normal >=60 [facility] Comment on above: Performed By: #### L IPID, CMP #### [facility] [address] [place] [address] Dr. Isabel Wolfe EGFR-NON AF HUNGARIAN >60 Normal >=60 [facility] Comment on above: Performed By: #### L IPID, CMP #### [facility] [address] [address] [address] Isabel Wolfe Globulin (S) [Mass/Vol] 3.6 g/dL Normal [facility] Comment on above: Performed By: #### L IPID, CMP #### [facility] [address] [address] [address] Isabel Wolfe Glucose [Mass/Vol] 101 mg/dL Normal 74-106 [facility] Comment on above: Performed By: #### L IPID, CMP #### [facility] [address] [address] [address] Isabel Wolfe Potassium [Moles/Vol] 4.1 mmol/L Normal 3.5-5.1 [facility] Comment on above: Performed By: #### L IPID, CMP #### [facility] [address] [address] [address] Isabel Wolfe Protein [Mass/Vol] 6.9 g/dL Normal 6.4-8.2 [facility] Comment on above: Performed By: #### L IPID, CMP #### [facility] [address] [address] [address] Isabel Wolfe Sodium [Moles/Vol] 140 mmol/L Normal 136-145 [facility] Comment on above: Performed By: #### L IPID, CMP #### [facility] [address] [address] [address] Isabel Wolfe Urea nitrogen [Mass/Vol] 12.0 mg/dL Normal 7.0-18.0 [facility] Comment on above: Performed By: #### L IPID, CMP #### [facility] [address] [address] [address] Isabel Wolfe Urea nitrogen/Creatinine [Mass ratio] 12.6 mg/mg Normal [facility] Comment on above: Performed By: #### L IPID, CMP #### [facility] [address] [place] [address] Dr. Isabel Wolfe COVID Quick Testingon 2020 Result Negative [employer] Other MRI ELBOW LEFT WO CONTRASTon 08-10-2020 [...] Jay Umanzor MD 08/10/20 Final result Normal [facility] 1. High-grade partial-thickness tearing at the origin of the common extensor tendon with moderate underlying tendinosis. 2. Small joint effusion. No intra-articular loose body. 3. No acute osseous abnormality. [facility], [place] EXAMINATION: MRI OF THE LEFT [...] collection identified within the visualized soft tissues. [facility]- [place], [place], [employer] Incoming Radiant Results From [employer] - 08/10/2020 2:33 PM EST EXAMINATION: MRI [...] loose body. 3. No acute osseous abnormality. [place], [place] Vital Signs Date Time Vital Sign Value Performing Clinician Denise pena 04-16-2023 13:10-0400 Body height 159.38 cm Kera Mccall Other [employer] Other 04-16-2023 13:10-0400 Body mass index (BMI) [Ratio] 48.06 kg/m2 Kera Mccall Other [facility] Other 04-16-2023 13:10-0400 Body temperature 97.8 [degF] Kera Mccall Other [facility] Other 04-16-2023 13:10-0400 Body weight 122.11 kg Kera Mccall Other [employer] Other 04-16-2023 13:10-0400 Respiratory rate 18 /min Kera Mccall Other [employer] Other 04-16-2023 13:10-0400 SaO2% (BldA) [Mass fraction] 96 % Kera Mccall Other [employer] Other 02-02-2023 10:00-0400 Body height 159.38 cm Clive Marino Other [employer] Other 02-02-2023 10:00-0400 Body mass index (BMI) [Ratio] 48.06 kg/m2 Clive Marino Other [employer] Other 02-02-2023 10:00-0400 Body weight 122.11 kg Clive Marino Other [facility] Other 02-02-2023 10:00-0400 Diastolic blood pressure 73 mm[Hg] Clive Marino Other [employer] Other 02-02-2023 10:00-0400 Respiratory rate 18 /min Clive Marino Other [employer] Other 02-02-2023 10:00-0400 SaO2% (BldA) [Mass fraction] 98 % Clive Marino Other [employer] Other 02-02-2023 10:00-0400 Systolic blood pressure 98 mm[Hg] Clive Marino Other [employer] Other 12-23-2022 15:00-0400 Body height 159.38 cm Gurmeet Honorio Other [employer] Other 12-23-2022 15:00-0400 Body mass index (BMI) [Ratio] 48.03 kg/m2 Jerryer Honorio Other [employer] Other 12-23-2022 15:00-0400 Body weight 122.02 kg Mohittonyer Honorio Other [employer] Other 12-23-2022 15:00-0400 Diastolic blood pressure 84 mm[Hg] Gumreet Honorio Other [facility] Other 12-23-2022 15:00-0400 SaO2% (BldA) [Mass fraction] 100 % Gurmeet Honorio Other [facility] Other 12-23-2022 15:00-0400 Systolic blood pressure 127 mm[Hg] Gurmeet Honorio Other [employer] Other 12-14-2022 10:30-0400 Body height 159.38 cm Danya Carty Other [employer] Other 12-14-2022 10:30-0400 Body mass index (BMI) [Ratio] 48.04 kg/m2 Danyaher Helmler Other [employer] Other 12-14-2022 10:30-0400 Body weight 122.06 kg Danyaher Helmler Other [employer] Other 12-14-2022 10:30-0400 Diastolic blood pressure 82 mm[Hg] Danya Missler Other [employer] Other 12-14-2022 10:30-0400 Respiratory rate 18 /min Danya Missler Other [employer] Other 12-14-2022 10:30-0400 SaO2% (BldA) [Mass fraction] 97 % Danya Missler Other [employer] Other 12-14-2022 10:30-0400 Systolic blood pressure 124 mm[Hg] Danya Missler Other [employer] Other 12-01-2022 14:00-0400 Body height 159.38 cm Serene Fitt Other [employer] Other 12-01-2022 14:00-0400 Body mass index (BMI) [Ratio] 46.96 kg/m2 Serene Fitt Other [employer] Other 12-01-2022 14:00-0400 Body weight 119.3 kg Serene Fitt Other [employer] Other 11-07-2022 11:00-0500 Body height 159.38 cm Ellie Torres Other [employer] Other 11-07-2022 11:00-0500 Body mass index (BMI) [Ratio] 46.17 kg/m2 Ellie Torres Other [employer] Other 11-07-2022 11:00-0500 Body weight 117.3 kg Ellie Torres Other [employer] Other 11-07-2022 11:00-0500 Diastolic blood pressure 74 mm[Hg] Ellie Torres Other [employer] Other 11-07-2022 11:00-0500 Respiratory rate 18 /min Ellie Torres Other [employer] Other 11-07-2022 11:00-0500 SaO2% (BldA) [Mass fraction] 99 % Ellie Torres Other [employer] Other 11-07-2022 11:00-0500 Systolic blood pressure 123 mm[Hg] Ellie Torres Other [facility] Other 11-03-2022 14:00-0500 Body height 159.38 cm Susana Arrietamond Other [employer] Other 11-03-2022 14:00-0500 Body mass index (BMI) [Ratio] 46.74 kg/m2 Susana Arrietamond Other [employer] Other 11-03-2022 14:00-0500 Body temperature 97.8 [degF] Susana Arrietamond Other [employer] Other 11-03-2022 14:00-0500 Body weight 118.75 kg Susana Arrietamond Other [employer] Other 11-03-2022 14:00-0500 Diastolic blood pressure 72 mm[Hg] Susana Arrietamond Other [employer] Other 11-03-2022 14:00-0500 Respiratory rate 8 /min Susana Rhonda Other [employer] Other 11-03-2022 14:00-0500 SaO2% (BldA) [Mass fraction] 98 % Susana Ellis Other [employer] Other 11-03-2022 14:00-0500 Systolic blood pressure 122 mm[Hg] Susana Ellis Other [employer] Other 10-30-2022 11:15-0500 Body height 159.38 cm Danya Missler Other [employer] Other 10-30-2022 11:15-0500 Body mass index (BMI) [Ratio] 46.76 kg/m2 Danya Missler Other [employer] Other 10-30-2022 11:15-0500 Body weight 118.8 kg Danya Missler Other [employer] Other 10-30-2022 11:15-0500 Diastolic blood pressure 70 mm[Hg] Danya Missler Other [employer] Other 10-30-2022 11:15-0500 Respiratory rate 18 /min Danya Missler Other [employer] Other 10-30-2022 11:15-0500 SaO2% (BldA) [Mass fraction] 99 % Danya Missler Other [employer] Other 10-30-2022 11:15-0500 Systolic blood pressure 124 mm[Hg] Danya Missler Other [employer] Other 10-29-2022 11:00-0500 Body height 159.38 cm Ellie Torres Other [employer] Other 10-29-2022 11:00-0500 Body mass index (BMI) [Ratio] 46.46 kg/m2 Ellie Torres Other [employer] Other 10-29-2022 11:00-0500 Body temperature 99.8 [degF] Ellie Torres Other [employer] Other 10-29-2022 11:00-0500 Body weight 118.03 kg Ellie Torres Other [employer] Other 10-29-2022 11:00-0500 Diastolic blood pressure 80 mm[Hg] Ellie Torres Other [employer] Other 10-29-2022 11:00-0500 Respiratory rate 18 /min Ellie Torres Other [employer] Other 10-29-2022 11:00-0500 SaO2% (BldA) [Mass fraction] 98 % Ellie Torres Other [employer] Other 10-29-2022 11:00-0500 Systolic blood pressure 120 mm[Hg] Ellie Torres Other [employer] Other 10-08-2022 20:24-0500 Diastolic blood pressure 63 mm[Hg] [facility] 10-08-2022 20:24-0500 Heart rate 96 /min [facility] 10-08-2022 20:24-0500 Respiratory rate 18 /min [facility] 10-08-2022 20:24-0500 SaO2% (BldA) [Mass fraction] 98 % [facility] 10-08-2022 20:24-0500 Systolic blood pressure 135 mm[Hg] [facility] 10-08-2022 16:01-0500 Body height 157.48 cm [facility] 10-08-2022 16:01-0500 Body temperature 98.1 [degF] [facility] 10-08-2022 16:01-0500 Body weight 116 kg [facility] 10-06-2022 12:15-0500 Body height 159.38 cm Serene Joshblayne Other [employer] Other 10-01-2022 11:00-0500 Body height 159.38 cm Ellie Juan Jose Other [employer] Other 10-01-2022 11:00-0500 Body mass index (BMI) [Ratio] 45.71 kg/m2 Ellie Juan Jose Other [employer] Other 10-01-2022 11:00-0500 Body temperature 98.3 [degF] Ellie Juan Jose Other [employer] Other 10-01-2022 11:00-0500 Body weight 116.12 kg Ellie Juan Jose Other [employer] Other 10-01-2022 11:00-0500 Respiratory rate 18 /min Ellie Juan Jose Other [employer] Other 10-01-2022 11:00-0500 SaO2% (BldA) [Mass fraction] 99 % Ellie Juan Jose Other [employer] Other 09-30-2022 08:30-0500 Body height 159.38 cm Danya Carty Other [employer] Other 09-30-2022 08:30-0500 Body mass index (BMI) [Ratio] 45.72 kg/m2 Danya Missler Other [employer] Other 09-30-2022 08:30-0500 Body weight 116.17 kg Danya Missler Other [employer] Other 09-30-2022 08:30-0500 Diastolic blood pressure 81 mm[Hg] Danya Missler Other [employer] Other 09-30-2022 08:30-0500 Respiratory rate 18 /min Danya Missler Other [employer] Other 09-30-2022 08:30-0500 SaO2% (BldA) [Mass fraction] 98 % Danya Missler Other [employer] Other 09-30-2022 08:30-0500 Systolic blood pressure 123 mm[Hg] Danya Missler Other [employer] Other 09-20-2022 11:15-0500 Body height 162.56 cm Susana Arrietamond Other [employer] Other 09-20-2022 11:15-0500 Body mass index (BMI) [Ratio] 43.59 kg/m2 Susana Rhonda Other [employer] Other 09-20-2022 11:15-0500 Body temperature 97.7 [degF] Susana Rhonda Other [employer] Other 09-20-2022 11:15-0500 Body weight 115.21 kg Susana Rhonda Other [employer] Other 09-20-2022 11:15-0500 Diastolic blood pressure 75 mm[Hg] Susana Ellis Other [employer] Other 09-20-2022 11:15-0500 Respiratory rate 18 /min Susana Ellis Other [employer] Other 09-20-2022 11:15-0500 SaO2% (BldA) [Mass fraction] 98 % Susana Ellis Other [employer] Other 09-20-2022 11:15-0500 Systolic blood pressure 118 mm[Hg] Susana Ellis Other [employer] Other 09-14-2022 18:00-0500 Body height 162.56 cm Ellie Binghamault Other [employer] Other 09-14-2022 18:00-0500 Body mass index (BMI) [Ratio] 43.59 kg/m2 Ellie Juan Jose Other [employer] Other 09-14-2022 18:00-0500 Body temperature 97.1 [degF] Ellie Juan Jose Other [employer] Other 09-14-2022 18:00-0500 Body weight 115.21 kg Ellie Juan Jose Other [employer] Other 09-14-2022 18:00-0500 Diastolic blood pressure 94 mm[Hg] Ellie Juan Jose Other [employer] Other 09-14-2022 18:00-0500 Respiratory rate 18 /min Ellie Juan Jose Other [employer] Other 09-14-2022 18:00-0500 SaO2% (BldA) [Mass fraction] 100 % Ellie Juan Jose Other [facility] [employer] Other 09-14-2022 18:00-0500 Systolic blood pressure 157 mm[Hg] Ellie Juan Jose Other [facility] [employer] Other 09-10-2022 20:30-0500 Diastolic blood pressure 72 mm[Hg] [facility] 09-10-2022 20:30-0500 Heart rate 95 /min [facility] 09-10-2022 20:30-0500 Respiratory rate 18 /min [facility] 09-10-2022 20:30-0500 SaO2% (BldA) [Mass fraction] 99 % [facility] 09-10-2022 20:30-0500 Systolic blood pressure 156 mm[Hg] [facility] 09-10-2022 15:46-0500 Body height 165.1 cm [facility] 09-10-2022 15:46-0500 Body temperature 99 [degF] [facility] 09-10-2022 15:46-0500 Body weight 115.85 kg [facility] 09-10-2022 15:00-0500 Body height 162.56 cm Ellie Torres Other [facility] [employer] Other 09-10-2022 15:00-0500 Body mass index (BMI) [Ratio] 43.94 kg/m2 Ellie Juan Jose Other [facility] [employer] Other 09-10-2022 15:00-0500 Body temperature 98.2 [degF] Ellie Torres Other [employer] Other 09-10-2022 15:00-0500 Body weight 116.12 kg Ellie Torres Other [employer] Other 09-10-2022 15:00-0500 SaO2% (BldA) [Mass fraction] 98 % Ellie Torres Other [employer] Other 08-27-2022 15:00-0500 Body height 162.56 cm Ellie Torres Other [employer] Other 08-27-2022 15:00-0500 Body mass index (BMI) [Ratio] 43.59 kg/m2 Ellie Torres Other [employer] Other 08-27-2022 15:00-0500 Body temperature 97.8 [degF] Ellie Torres Other [employer] Other 08-27-2022 15:00-0500 Body weight 115.21 kg Ellie Torres Other [employer] Other 08-27-2022 15:00-0500 Diastolic blood pressure 64 mm[Hg] Ellie Binghamault Other [employer] Other 08-27-2022 15:00-0500 Respiratory rate 18 /min Ellie Binghamault Other [employer] Other 08-27-2022 15:00-0500 SaO2% (BldA) [Mass fraction] 99 % Ellie Binghamault Other [employer] Other 08-27-2022 15:00-0500 Systolic blood pressure 107 mm[Hg] Ellie Binghamault Other [employer] Other 07-30-2022 12:00-0500 Body height 162.56 cm Ellie Torres Other [employer] Other 07-30-2022 12:00-0500 Body mass index (BMI) [Ratio] 43.25 kg/m2 Ellie Torres Other [employer] Other 07-30-2022 12:00-0500 Body temperature 97.6 [degF] Ellie Torres Other [employer] Other 07-30-2022 12:00-0500 Body weight 114.31 kg Ellie Torres Other [employer] Other 07-30-2022 12:00-0500 Diastolic blood pressure 72 mm[Hg] Ellie Binghamault Other [employer] Other 07-30-2022 12:00-0500 Respiratory rate 18 /min Ellie Torres Other [employer] Other 07-30-2022 12:00-0500 SaO2% (BldA) [Mass fraction] 100 % Ellie Torres Other [employer] Other 07-30-2022 12:00-0500 Systolic blood pressure 135 mm[Hg] Ellie Binghamault Other [employer] Other 07-20-2022 12:05-0500 Body height 162.56 cm Ellie Binghamault Other [employer] Other 07-20-2022 12:05-0500 Body mass index (BMI) [Ratio] 42.56 kg/m2 Ellie Binghamault Other [employer] Other 07-20-2022 12:05-0500 Body temperature 97.8 [degF] Ellie Torres Other [employer] Other 07-20-2022 12:05-0500 Body weight 112.49 kg Ellie Torres Other [employer] Other 07-20-2022 12:05-0500 Diastolic blood pressure 71 mm[Hg] Ellie Torres Other [employer] Other 07-20-2022 12:05-0500 Respiratory rate 18 /min Ellie Torres Other [employer] Other 07-20-2022 12:05-0500 SaO2% (BldA) [Mass fraction] 99 % Ellie Torres Other [employer] Other 07-20-2022 12:05-0500 Systolic blood pressure 137 mm[Hg] Ellie Torres Other [employer] Other 07-02-2022 12:30-0400 Body height 162.56 cm Ellie Binghamault Other [employer] Other 07-02-2022 12:30-0400 Body mass index (BMI) [Ratio] 42.56 kg/m2 Ellie Binghamault Other [employer] Other 07-02-2022 12:30-0400 Body temperature 98 [degF] Ellie Binghamault Other [employer] Other 07-02-2022 12:30-0400 Body weight 112.49 kg Ellie Torres Other [employer] Other 07-02-2022 12:30-0400 Diastolic blood pressure 84 mm[Hg] Ellie Torres Other [employer] Other 07-02-2022 12:30-0400 Respiratory rate 18 /min Ellie Torres Other [facility] [employer] Other 07-02-2022 12:30-0400 SaO2% (BldA) [Mass fraction] 100 % Ellie Torres Other [employer] Other 07-02-2022 12:30-0400 Systolic blood pressure 129 mm[Hg] Ellie Torres Other [employer] Other 06-29-2022 11:15-0400 Body height 162.56 cm Pop Blandon Other [employer] Other 06-29-2022 11:15-0400 Body mass index (BMI) [Ratio] 41.19 kg/m2 Pop Blandon Other [employer] Other 06-29-2022 11:15-0400 Body weight 108.86 kg Pop Blandon Other [employer] Other 06-25-2022 17:30-0400 Body height 162.56 cm Ellie Torres Other [employer] Other 06-25-2022 17:30-0400 Body mass index (BMI) [Ratio] 41.19 kg/m2 Ellie Binghamault Other [employer] Other 06-25-2022 17:30-0400 Body temperature 97.7 [degF] Ellie Torres Other [employer] Other 06-25-2022 17:30-0400 Body weight 108.86 kg Ellie Torres Other [employer] Other 06-25-2022 17:30-0400 Diastolic blood pressure 88 mm[Hg] Ellie Torres Other [employer] Other 06-25-2022 17:30-0400 Respiratory rate 18 /min Ellie Torres Other [employer] Other 06-25-2022 17:30-0400 SaO2% (BldA) [Mass fraction] 99 % Ellie Torres Other [employer] Other 06-25-2022 17:30-0400 Systolic blood pressure 135 mm[Hg] Ellie Torres Other [employer] Other 05-25-2022 18:00-0400 Body height 162.56 cm Ellie Torres Other [employer] Other 05-25-2022 18:00-0400 Body mass index (BMI) [Ratio] 42.84 kg/m2 Ellie Torres Other [employer] Other 05-25-2022 18:00-0400 Body temperature 97.9 [degF] Ellie Torres Other [employer] Other 05-25-2022 18:00-0400 Body weight 113.22 kg Ellie Torres Other [employer] Other 05-25-2022 18:00-0400 Diastolic blood pressure 68 mm[Hg] Ellie Torres Other [employer] Other 05-25-2022 18:00-0400 Respiratory rate 18 /min Ellie Torres Other [employer] Other 05-25-2022 18:00-0400 SaO2% (BldA) [Mass fraction] 98 % Ellie Torres Other [employer] Other 05-25-2022 18:00-0400 Systolic blood pressure 120 mm[Hg] Ellie Torres Other [employer] Other 05-21-2022 12:30-0400 Body height 162.56 cm Ellie Torres Other [employer] Other 05-21-2022 12:30-0400 Body mass index (BMI) [Ratio] 43.29 kg/m2 Ellie Torres Other [employer] Other 05-21-2022 12:30-0400 Body temperature 98 [degF] Ellie Torres Other [employer] Other 05-21-2022 12:30-0400 Body weight 114.4 kg Ellie Torres Other [employer] Other 05-21-2022 12:30-0400 Diastolic blood pressure 63 mm[Hg] Ellie Torres Other [employer] Other 05-21-2022 12:30-0400 Respiratory rate 18 /min Ellie Binghamault Other [employer] Other 05-21-2022 12:30-0400 SaO2% (BldA) [Mass fraction] 100 % Ellie Torres Other [employer] Other 05-21-2022 12:30-0400 Systolic blood pressure 103 mm[Hg] Ellie Binghamault Other [employer] Other 04-27-2022 12:30-0400 Body height 162.56 cm Ellie Torres Other [employer] Other 04-27-2022 12:30-0400 Body mass index (BMI) [Ratio] 43.59 kg/m2 Ellie Torres Other [employer] Other 04-27-2022 12:30-0400 Body temperature 98.6 [degF] Ellie Binghamault Other [employer] Other 04-27-2022 12:30-0400 Body weight 115.21 kg Ellie Torres Other [employer] Other 04-27-2022 12:30-0400 Diastolic blood pressure 81 mm[Hg] Ellie Binghamault Other [employer] Other 04-27-2022 12:30-0400 Respiratory rate 18 /min Ellie Binghamault Other [employer] Other 04-27-2022 12:30-0400 SaO2% (BldA) [Mass fraction] 98 % Ellie Binghamault Other [employer] Other 04-27-2022 12:30-0400 Systolic blood pressure 130 mm[Hg] Ellie Torres Other [employer] Other 04-06-2022 11:00-0400 Body height 162.56 cm Ellie Torres Other [employer] Other 04-06-2022 11:00-0400 Body mass index (BMI) [Ratio] 43.63 kg/m2 Ellie Torres Other [employer] Other 04-06-2022 11:00-0400 Body temperature 98.5 [degF] Ellie Torres Other [employer] Other 04-06-2022 11:00-0400 Body weight 115.31 kg Ellie Binghamault Other [employer] Other 04-06-2022 11:00-0400 Diastolic blood pressure 66 mm[Hg] Ellie Torres Other [employer] Other 04-06-2022 11:00-0400 Respiratory rate 18 /min Ellie Torres Other [employer] Other 04-06-2022 11:00-0400 SaO2% (BldA) [Mass fraction] 98 % Ellie Binghamault Other [employer] Other 04-06-2022 11:00-0400 Systolic blood pressure 131 mm[Hg] Ellie Binghamault Other [employer] Other 03-03-2022 12:05-0400 Body height 162.56 cm Ellie Binghamault Other [employer] Other 03-03-2022 12:05-0400 Body mass index (BMI) [Ratio] 41.19 kg/m2 Ellie Torres Other [employer] Other 03-03-2022 12:05-0400 Body temperature 98 [degF] Ellie Torres Other [employer] Other 03-03-2022 12:05-0400 Body weight 108.86 kg Ellie Torres Other [employer] Other 03-03-2022 12:05-0400 Diastolic blood pressure 72 mm[Hg] Ellie Torres Other [employer] Other 03-03-2022 12:05-0400 Respiratory rate 18 /min Ellie Torres Other [employer] Other 03-03-2022 12:05-0400 SaO2% (BldA) [Mass fraction] 100 % Ellie Torres Other [employer] Other 03-03-2022 12:05-0400 Systolic blood pressure 116 mm[Hg] Ellie Torres Other [employer] Other 11-13-2021 16:45-0400 Body height 162.56 cm Pop Blandon Other [employer] Other 11-13-2021 16:45-0400 Body mass index (BMI) [Ratio] 42.91 kg/m2 Pop Blandon Other [employer] Other 11-13-2021 16:45-0400 Body weight 113.4 kg Pop Blandon Other [employer] Other 11-06-2021 14:20-0500 Body height 162.56 cm Ellie Torres Other [employer] Other 11-06-2021 14:20-0500 Body mass index (BMI) [Ratio] 43.08 kg/m2 Ellie Torres Other [employer] Other 11-06-2021 14:20-0500 Body temperature 97.7 [degF] Ellie Torres Other [employer] Other 11-06-2021 14:20-0500 Body weight 113.85 kg Ellie Torres Other [employer] Other 11-06-2021 14:20-0500 Diastolic blood pressure 70 mm[Hg] Ellie Torres Other [employer] Other 11-06-2021 14:20-0500 Respiratory rate 18 /min Ellie Torres Other [employer] Other 11-06-2021 14:20-0500 SaO2% (BldA) [Mass fraction] 99 % Ellie Torres Other [employer] Other 11-06-2021 14:20-0500 Systolic blood pressure 143 mm[Hg] Ellie Torres Other [employer] Other 09-29-2021 09:15-0500 Body height 162.56 cm Pop Blandon Other [employer] Other 08-11-2021 16:30-0500 Body height 162.56 cm Edie Singh Other [employer] Other 08-11-2021 16:30-0500 Body mass index (BMI) [Ratio] 43.08 kg/m2 Edie Singh Other [employer] Other 08-11-2021 16:30-0500 Body weight 113.85 kg Edie Singh Other [employer] Other 08-11-2021 16:30-0500 Diastolic blood pressure 88 mm[Hg] Edie Singh Other [employer] Other 08-11-2021 16:30-0500 Respiratory rate 18 /min Edie Singh Other [employer] Other 08-11-2021 16:30-0500 SaO2% (BldA) [Mass fraction] 99 % Edie Singh Other [employer] Other 08-11-2021 16:30-0500 Systolic blood pressure 130 mm[Hg] Edie Singh Other [employer] Other 06-12-2021 15:45-0400 Body height 162.56 cm Edie Singh Other [employer] Other 06-12-2021 15:45-0400 Body mass index (BMI) [Ratio] 42.84 kg/m2 Edie Singh Other [employer] Other 06-12-2021 15:45-0400 Body temperature 98.1 [degF] Edie Singh Other [employer] Other 06-12-2021 15:45-0400 Body weight 113.22 kg Edie Singh Other [employer] Other 06-12-2021 15:45-0400 Diastolic blood pressure 82 mm[Hg] Edie Artemio Other [employer] Other 06-12-2021 15:45-0400 Respiratory rate 18 /min Edie Artemio Other [employer] Other 06-12-2021 15:45-0400 SaO2% (BldA) [Mass fraction] 99 % Edie Artemio Other [employer] Other 06-12-2021 15:45-0400 Systolic blood pressure 132 mm[Hg] Edie Artemio Other [employer] Other Encounters Encounter Date Encounter Type Care Provider Facility Start: 06-18-2023 End: 06-18-2023 ambulatory Gurmeet Palacios Facility:[facility] Start: 06-18-2023 End: 06-18-2023 ambulatory SKIN LAP BONDER-C Ellie Juan Jose [facility] Work Phone: Start: 06-18-2023 End: 06-18-2023 Patient encounter procedure SKIN LAP BONDER-C Ellie Torres [facility]-MRI [facility] [place] Work Phone: Start: 04-16-2023 End: 04-16-2023 ambulatory Kera Mccall Other [facility] [employer] Other Start: 04-16-2023 Office outpatient visit 25 minutes Kera Mccall [facility] Start: 02-24-2023 End: 02-24-2023 ambulatory Gurmeet Olmedo Facility:[facility] Start: 02-24-2023 End: 02-24-2023 ambulatory SKIN LAP BONDER-C Ellie Torres Work Phone: [facility] Work Phone: Start: 02-24-2023 End: 02-24-2023 Patient encounter procedure SKIN LAP BONDER-C Ellie Torres Work Phone: [facility]-Sleep Lab Work Phone: Start: 02-02-2023 Follow-up encounter Clive Jamila [facility] Start: 02-02-2023 Telephone encounter Clive Jamila [facility] Start: 02-02-2023 End: 02-03-2023 ambulatory Ellie Torres [facility] [employer] Other Start: 02-02-2023 Registered Recurring SKIN LAP BONDER-C Librado bowiehal Torres Work Phone: [facility]-Weight Management Work Phone: Start: 12-23-2022 Office outpatient ne w 30 minutes Gurmeet Olmedo [facility] Start: 12-23-2022 End: 12-23-2022 ambulatory SKIN LAP BONDER-C Ellie Torres Work Phone: [facility] Work Phone: Start: 12-23-2022 End: 12-23-2022 Patient encounter procedure SKIN LAP BONDER-C Ellie Torres Work Phone: [facility]-Sleep Lab Work Phone: Start: 12-16-2022 End: 12-16-2022 ambulatory Serene Bustos Other [facility] [employer] Other Start: 12-16-2022 IBT for Obesity subQ 15 min (Max charge 2 units) Serene Bustos [facility] Start: 12-16-2022 Registered Recurring SKIN LAP BONDER-C Librado salcedo Juan Jose Work Phone: [facility]-Weight Management Work Phone: Start: 12-14-2022 (FCCC[facility]NF/U) Weight Management f/u Danya Carty [facility] Start: 12-14-2022 End: 12-14-2022 ambulatory Danya Carty Other [employer] Other Start: 12-14-2022 Telephone encounter Danya Carty [facility] Start: 12-01-2022 ([facility] WMNI) WMN Initial Provider Serene Bustos [facility] Start: 12-01-2022 End: 12-02-2022 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 Work Phone: Start: 11-07-2022 End: 11-07-2022 Patient encounter procedure [facility] Work Phone: Start: 11-03-2022 End: 11-03-2022 ambulatory Susana Ellis Facility:[facility] Start: 11-03-2022 End: 11-03-2022 Patient encounter procedure [facility] Work Phone: Start: 11-03-2022 End: 11-03-2022 ambulatory NON STAFF [facility] Work Phone: Start: 11-03-2022 Office outpatient visit 15 minutes Susana Ellis [facility] Start: 10-30-2022 ([facility] Start: 10-30-2022 End: 10-30-2022 ambulatory Danya Carty Other [employer] Other Start: 10-30-2022 Registered Recurring [facility] Management Work Phone: Start: 10-29-2022 End: 10-29-2022 ambulatory Ellie Torres Other [employer] Other Start: 10-29-2022 Office outpatient visit 15 minutes Ellie Torres [facility] Start: 10-08-2022 End: 10-08-2022 Emergency department patient visit Ellie Torres Facility:[facility] Start: 10-08-2022 End: 10-08-2022 Emergency department patient visit [facility]-Emergency Room Work Phone: Start: 10-06-2022 End: 10-06-2022 ambulatory Serene Bustos Other [employer] Other Start: 10-06-2022 IBT FOR OBESITY GROU P 2-10 30M Serene Bustos [facility] Start: 10-06-2022 Registered Recurring [facility] Work Phone: Start: 10-01-2022 End: 10-01-2022 ambulatory Ellie Torres Facility:[facility] Start: 10-01-2022 Office outpatient visit 15 minutes Ellie Torres [facility] Start: 10-01-2022 End: 10-01-2022 ambulatory NON STAFF [facility] Work Phone: Start: 10-01-2022 End: 10-01-2022 Patient encounter procedure [facility] Work Phone: Start: 09-30-2022 End: 09-30-2022 ambulatory Danya byron Other [employer] Other Start: 09-30-2022 Nutrition therapy Danya Carty [facility] Start: 09-30-2022 Registered Recurring [facility] Work Phone: Start: 09-25-2022 End: 09-25-2022 ambulatory Elliedavid Torres Other [employer] Other Start: 09-25-2022 Telephone encounter Elliedavid Gerberl t [facility] Start: 09-23-2022 End: 09-23-2022 ambulatory Elliedavid Torres Other [employer] Other Start: 09-23-2022 Telephone encounter Elliedavid Gerberl t [facility] Start: 09-21-2022 End: 09-22-2022 ambulatory ELLIE JUAN JOSE Facility: Start: 09-20-2022 End: 09-20-2022 ambulatory Susana Rhonda Other [employer] Other Start: 09-20-2022 Office outpatient visit 15 minutes Susana Rhonda [facility] Start: 09-14-2022 End: 09-14-2022 ambulatory Elliedavid Torres Other [employer] Other Start: 09-14-2022 Office outpatient visit 15 minutes Ellie Juan Jose [facility] Start: 09-10-2022 End: 09-10-2022 Emergency department patient visit NON STAFF Facility:[facility] Start: 09-10-2022 End: 09-10-2022 Emergency department patient visit [facility]Emer[facility] Work Phone: Start: 09-10-2022 End: 09-10-2022 ambulatory Elliedavid Torres Other [employer] Other Start: 09-10-2022 Patient encounter procedure Ellie Juan Jose [facility] Start: 09-07-2022 End: 09-07-2022 ambulatory Ellie Juan Jose Other [employer] Other Start: 09-07-2022 Telephone encounter Ellie Breaul t [facility] Start: 08-27-2022 End: 08-27-2022 ambulatory Elliedavid Torres Other [employer] Other Start: 08-27-2022 Office outpatient visit 15 minutes Elliedavid Torres [facility] Start: 08-17-2022 End: 08-17-2022 ambulatory Elliedavid Torres Other [employer] Other Start: 08-17-2022 Telephone encounter Ellie Otiliaaul t [facility] Start: 07-30-2022 End: 07-30-2022 ambulatory Elliedavid Torres Other [employer] Other Start: 07-30-2022 Office outpatient visit 15 minutes Ellie Juan Jose [facility] Start: 07-20-2022 End: 07-20-2022 ambulatory Elliedavid Torres Other [employer] Other Start: 07-20-2022 Office outpatient visit 15 minutes Elliedavid Torres [facility] Start: 07-10-2022 End: 07-10-2022 ambulatory Elliedavid Torres Other [employer] Other Start: 07-10-2022 Telephone encounter Elliedavid Gerberl t [facility] Start: 07-02-2022 End: 07-02-2022 ambulatory Elliedavid Torres Other [employer] Other Start: 07-02-2022 Office outpatient visit 15 minutes Ellie Juan Jose [facility] Start: 06-30-2022 End: 06-30-2022 ambulatory Ellienancy Torres Other [employer] Other Start: 06-30-2022 Telephone encounter Ellie Breaul t [facility] Start: 06-29-2022 End: 06-29-2022 ambulatory Pop Blandon Other [employer] Other Start: 06-29-2022 Office outpatient visit 15 minutes Pop Blandon [facility] [place] Start: 06-25-2022 End: 06-25-2022 ambulatory Ellie Juan Jose Other [employer] Other Start: 06-25-2022 Office outpatient visit 15 minutes Ellienancy Torres [facility] Start: 06-22-2022 (Procedure) Kat Blandon [facility] Start: 06-22-2022 End: 06-22-2022 ambulatory Pop Blandon Other [employer] Other Start: 06-11-2022 End: 06-11-2022 ambulatory Ellienancy Torres Other [employer] Other Start: 06-11-2022 Telephone encounter Ellie Gerberl t [facility] Start: 06-05-2022 End: 06-06-2022 ambulatory ELLIE JUAN JOSE Facility: Start: 06-01-2022 (Procedure) Kat Blandon [facility] Start: 06-01-2022 End: 06-01-2022 ambulatory Pop Blandon Other [employer] Other Start: 05-25-2022 End: 05-25-2022 ambulatory Ellie Juan Jose Other [employer] Other Start: 05-25-2022 Office outpatient visit 25 minutes Ellie Juan Jose [facility] Start: 05-21-2022 End: 05-21-2022 ambulatory Ellie Juan Jose Other [employer] Other Start: 05-21-2022 Office outpatient visit 15 minutes Ellie Juan Jose [facility] Start: 05-08-2022 End: 05-08-2022 ambulatory Ellie Juan Jose Other [employer] Other Start: 05-08-2022 Telephone encounter Ellie cisneros [facility] Start: 04-27-2022 End: 04-27-2022 ambulatory Ellie Torres Other [employer] Other Start: 04-27-2022 Office outpatient visit 15 minutes Elliedavid Torres [facility] Start: 04-22-2022 End: 04-22-2022 ambulatory Pop Blandon Other [employer] Other Start: 04-22-2022 Office outpatient visit 25 minutes Pop Blandon [facility] [place] Start: 04-16-2022 End: 04-16-2022 ambulatory Pop Blandon Other [employer] Other Start: 04-16-2022 Telephone encounter Pop Blandon [facility] Start: 04-13-2022 (Procedure) Short Pop Blandon [facility] Start: 04-13-2022 End: 04-13-2022 ambulatory Pop Blandon Other [employer] Other Start: 04-06-2022 Office outpatient visit 15 minutes Ellie Torres [facility] Start: 04-06-2022 End: 04-07-2022 ambulatory ELLIE JUAN JOSE [employer] Other Start: 03-03-2022 End: 03-03-2022 ambulatory Ellie Torres Other [employer] Other Start: 03-03-2022 Office outpatient visit 15 minutes Ellie Torres [facility] Start: 01-28-2022 End: 01-28-2022 ambulatory Pop Blandon Other [employer] Other Start: 01-28-2022 Telephone encounter Pop FISH [facility] [place] Start: 01-21-2022 End: 01-21-2022 ambulatory Pop Blandon Other [employer] Other Start: 01-21-2022 Telephone encounter Pop FISH G [facility] Start: 01-15-2022 End: 01-15-2022 ambulatory Pop Blandon Other [employer] Other Start: 01-15-2022 Office outpatient visit 25 minutes Pop Arceer [facility] [place] Start: 12-11-2021 End: 12-11-2021 ambulatory Pop Arceer Other [employer] Other Start: 12-11-2021 Office outpatient visit 25 minutes Pop Blandon [facility] [place] Start: 12-03-2021 (Procedure) Short Pop Blandon [facility] Start: 12-03-2021 End: 12-03-2021 ambulatory Pop Blandon Other [employer] Other Start: 11-14-2021 End: 11-14-2021 ambulatory Pop Blandon Other [employer] Other Start: 11-14-2021 Telephone encounter Pop FISH G [facility] Start: 11-13-2021 End: 11-13-2021 ambulatory Pop Arceer Other [employer] Other Start: 11-13-2021 Office outpatient visit 25 minutes Pop Arceer [facility] [place] Start: 11-06-2021 End: 11-06-2021 ambulatory Ellie Torres Other [employer] Other Start: 11-06-2021 Office outpatient visit 15 minutes Ellie Torres [facility] Start: 11-06-2021 Telephone encounter Edie Lewis [facility] Start: 10-29-2021 End: 10-29-2021 ambulatory Pop Arceshady Other [employer] Other Start: 10-29-2021 Telephone encounter Pop Blandon [facility] Start: 09-29-2021 End: 09-29-2021 ambulatory Pop Blandon Other [employer] Other Start: 09-29-2021 Office outpatient visit 25 minutes Pop Blandon [facility] [place] Start: 09-25-2021 End: 09-25-2021 ambulatory Edie Singh Other [employer] Other Start: 09-25-2021 Telephone encounter Edie Lewis [facility] Start: 08-19-2021 End: 08-19-2021 ambulatory Edie Singh Other [employer] Other Start: 08-19-2021 Telephone encounter Edie Lewis [facility] Start: 08-11-2021 End: 08-11-2021 ambulatory Edie Singh Other [employer] Other Start: 08-11-2021 Office outpatient visit 15 minutes Edie Singh [facility] Start: 06-12-2021 Office outpatient visit 15 minutes Edie Singh [facility] Start: 08-10-2020 End: 08-13-2020 Patient encounter procedure EDIE SINGH [facility] Start: 08-10-2020 End: 08-12-2020 Subsequent hospital visit by physician Maritza [facility] MRI Comment on above: Left elbow pain Procedures Date Procedure Procedure Detail Performing Clinician Start: 06-18-2023 MR lumbar spine wo con SKIN LAP BONDER-C Ellie Torres Start: 11-07-2022 Plain X-ray of [...] 04-30-2020 Influenza vaccination Flu vaccine (# 1) [place], [place] Start: 2011 Lipid panel Lipid screen [place], [place] Start: 11-11-1992 Screening for malign ant neoplasm of cervix Cervical cancer screen [place], [place] Start: 11-11-1990 DTaP/Tdap/Td vaccine (1 - Tdap) DTaP/Tdap/Td vaccine (1 - Tdap) [place], [place] Start: 11-11-1986 HIV screening HIV screen [place], [place] Patient Education [facility] Work Phone: Patient referral [facility] Work Phone: Immunizations Immunization Date Immunization Notes Care Provider Donnie dewitt 03-11-2021 Toradol 30 mg/ml Edie Wid ashli Other [facility] [employer] Other 03-11-2021 KENALOG - 10 mg Edie Widm er Other [facility] [employer] Other 02-17-2021 Toradol 30 mg/ml Edie Wid ashli Other [facility] [facility] Other 06-10-2020 Depo-Medrol 80 mg Edie Wi dmer Other [facility] [employer] Other 06-19-2019 Depo-Medrol 40 mg Edie Wi dmer Other [employer] Other 11-28-2018 Toradol per 15 mg Edie Wi dmer Other [employer] Other 11-28-2018 Depo-Medrol 80 mg Edie Wi dmer Other [employer] Other Payers Date Payer Category Payer Unknown [id number] 2022 Self-pay [id number] 2018 Unknown [id number] 1971 Unknown [id number] 1971 Unknown [id number] .[id number] 1971 Unknown [id number] 2.16.840.1.760442.3.579.2.593 1971 Unknown [id number] .[id number] 1971 Unknown [id number] 1958 Medicaid [id number] . [id number] Medicaid [place] [id number] [id number] 42 Unknown [id number] 2.16 [id number] Unknown HCAP/HFA/FAP Active [id number] Unknown [id number] [id number] Unknown [id number] [id number] Unknown 1992 [id number]1 Unknown [id number] 2.16.840.1.135592.3.579.2.531 Unknown [id number] 2.16.840.1.469021.3.579.2.531 Unknown [id number] 2.16.840.1.799814.3.579.2.531 Unknown [id number] 2.16.840.1.588497.3.579.2.531 Unknown [id number] 2.16.840.1.592893.3.579.2.531 Unknown [id number] 2.16.840.1.666635.3.579.2.531 Social History Date Type Detail Facility Tobacco smoking status NHIS Unknown if ever smoked [employer] Sex Assigned At Not on file [employer] Sex Assigned At Sex Assigned At Bir th [employer] Other Start: 09-10-2022 End: 10-08-2022 Tobacco smoking status NHIS Never smoked tobacco (finding) [facility] Start: 1970 Sex Assigned At Female [facility] Medical Equipment Procedure Code Equipment Code [...] Zyrtec/Claritin daily. Recommended patient follow-up over to [facility] for follow-up appointment with PCP to discuss next steps. Patient verbalizes understanding and is agreeable with treatment plan [employer] Other 06-06-2023 Evaluation note* Encounter Date Diagnosis Assessment Notes Treatment Notes Treatment Clinical Notes Jan, Prediabetes (ICD-10 - R73.03) Jan, Body mass index (BMI ) of 45.0-49.9 in adult (ICD-10 - Z68.42) Jan, Hypertension (ICD-10 - I10) Jan, Obstructive sleep apnea (ICD-10 - G47.33) Jan, Knee osteoarthritis (ICD-10 - M17.9) Jan, Metabolic syndrome X (ICD-10 - E88.81) [employer] Other 04-26-2023 Evaluation note* Encounter Date Diagnosis Assessment Notes Treatment Notes Treatment Clinical Notes Nov, Obstructive sleep apnea (ICD-10 - G47.33) Nov, Morbid (severe) obesity due to excess calories (ICD-10 - E66.01) [employer] Other 04-19-2023 Evaluation note* Encounter Date Diagnosis [...] following goals: - explore exercise options: [employer], [employer], and home execises; PARTIALLY MET - add more veggies - PARTIALLY MET [employer] Other 04-17-2023 Evaluation note* Encounter Date Diagnosis [...] Encounter for weight management (ICD-10 - Z76.89) [employer] Other 04-04-2023 Evaluation note* Encounter Date Diagnosis [...] goals: - NEW: explore exercise options: [employer], [employer], and home [employer] - NEW: add more veggies [employer] Other 03-11-2023 Evaluation note* Encounter Date Diagnosis [...] hip pain may be exacerbated by knee [employer] Other 03-07-2023 Evaluation note* Encounter Date Diagnosis [...] no improvement in 2 to 3 days. [employer] Other 03-03-2023 Evaluation note* Encounter Date Diagnosis [...] routine Strongly encouraged to connect with our grade teacher for exercises she is able to do [...] Encounter for weight management (ICD-10 - Z76.89) [employer] Other 03-02-2023 Evaluation note* Encounter Date Diagnosis [...] (ICD-10 - J32.4) Take medication as directed. [employer] Other 02-07-2023 Evaluation note* Encounter Date Diagnosis [...] patient set personal goal using given handout. [employer] Other 02-02-2023 Evaluation note* Encounter Date Diagnosis [...] (ICD-10 - F41.1) Continue current treatment program [employer] Other 02-01-2023 Evaluation note* Encounter Date Diagnosis [...] discuss other options through menopause with her [employer]. Optimize sleep quality and quantity using good [...] the week. Encouraged to take advantage of grade teacher available at [facility] that can help work around limitations. [...] prevent diabetes. Consider metformin or GLP-1 agonist. [employer] Other 01-22-2023 Evaluation note* Encounter Date Diagnosis [...] no improvement in 2 to 3 days [employer] Other 01-16-2023 Evaluation note* Encounter Date Diagnosis [...] then have labs rechecked the day after [employer] Other 01-12-2023 Evaluation note* Encounter Date Diagnosis Assessment Notes Treatment Notes Treatment Clinical Notes Aug, Urine retention (ICD-10 - R33.9) very concerned patient is having symptoms of neurogenic bladder due to symptoms occuring after a recent fall. Recommend patient go to ER due to inability to urinate and she has not urinated since yesterday evening. [employer] Other 12-29-2022 Evaluation note* Encounter Date Diagnosis Assessment Notes Treatment Notes Treatment Clinical Notes Jul, LACEY (generalized anxiety disorder) (ICD-10 - F41.1) Jul, Other low back pain (ICD-10 - M54.59) Jul, Insomnia, unspecified type (ICD-10 - G47.00) Jul, Other spondylosis with radiculopathy, lumbar region (ICD-10 - M47.26) MME is 9.7 per day and OARRS is checked. Jul, Skin lesion (ICD-10 - L98.9) [employer] Other 12-19-2022 Evaluation note* Encounter Date Diagnosis Assessment Notes Treatment Notes Treatment Clinical Notes Jul, Other spondylosis with radiculopathy, lumbar region (ICD-10 - M47.26) [employer] Other 12-01-2022 Evaluation note* Encounter Date Diagnosis [...] work then we may discuss seeing ENT [employer] Other 11-21-2022 Evaluation note* Encounter Date Diagnosis Assessment Notes Treatment Notes Treatment Clinical Notes Jun, Left otitis media with effusion (ICD-10 - H65.92) Jun, Thrush (ICD-10 - B37.0) Jun, DDD (degenerative disc disease), lumbar (ICD-10 - M51.36) [employer] Other 11-03-2022 Evaluation note* Encounter Date Diagnosis [...] call office and we will send referal [employer] Other 10-31-2022 Evaluation note* Encounter Date Diagnosis [...] Above note written by Javed Arreola MA, Pet Care Technician. Edited and approved by Dr. Pop Blandon MD. [employer] Other 10-27-2022 Evaluation note* Encounter Date Diagnosis [...] F41.1) Added as needed medication as discussed. [employer] Other 09-26-2022 Evaluation note* Encounter Date Diagnosis [...] index [BMI] 40.0-44.9, adult (ICD-10 - Z68.41) [employer] Other 09-26-2022 Evaluation note* Encounter Date Diagnosis [...] index [BMI] 40.0-44.9, adult (ICD-10 - Z68.41) [employer] Other 09-22-2022 Evaluation note* Encounter Date Diagnosis Assessment Notes Treatment Notes Treatment Clinical Notes Apr, Lumbar degenerative disc disease (ICD-10 - M51.36) Keep upcoming appointments with pain management appointments and neurosurgery appt as discussed. Apr, Acute non-recurrent frontal sinusitis (ICD-10 - J01.10) Take medication as directed. Recommend taking OTC Zyrtec or allergy until after harvest season [employer] Other 08-29-2022 Evaluation note* Encounter Date Diagnosis [...] further steps are needed. Patient states understanding. [employer] Other 08-24-2022 Evaluation note* Encounter Date Diagnosis [...] note writ ten by Javed Arreola CMA, Pet Care Technician. Edited and approved by Dr. Pop Blandon MD. [employer] Other 08-18-2022 Evaluation note* Encounter Date Diagnosis Assessment Notes Treatment Notes Treatment Clinical Notes Mar, Strain of lumbar region, initial encounter (ICD-10 - S39.012A) [employer] Other 08-08-2022 Evaluation note* Encounter Date Diagnosis [...] to be seen. Also always know the [facility] Emergency Number is 24 hours a day available, even on holidays there is someone you can reach out to. Also we will check other labs yearly to screen for other health issues. Please remember we are a team and your opinion is very important in all of your healthcare decisions Mar, Other spondylosis with radiculopathy, lumbar region (ICD-10 - M47.26) [employer] Other 07-05-2022 Evaluation note* Encounter Date Diagnosis [...] Feb, Left lumbar pain (ICD-10 - M54.50) [employer] Other 06-01-2022 Evaluation note* Encounter Date Diagnosis Assessment Notes Treatment Notes Treatment Clinical Notes Jan, Generalized pain (ICD-10 - R52) Jan, Strain of lumbar region, initial encounter (ICD-10 - S39.012A) [employer] Other 05-19-2022 Evaluation note* Encounter Date Diagnosis [...] note writ ten by Javed Arreola CMA, Pet Care Technician. Edited and approved by Dr. Pop Blandon MD. [employer] Other 04-14-2022 Evaluation note* Encounter Date Diagnosis [...] note writ ten by Luli Garcias LPN, Pet Care Technician. Edited and approved by Dr. Pop Blandon MD. [employer] Other 03-17-2022 Evaluation note* Encounter Date Diagnosis [...] note writ ten by Javed Arreola MA, Pet Care Technician. Edited and approved by Dr. Pop Blandon MD. [employer] Other 03-10-2022 Evaluation note* Encounter Date Diagnosis [...] discussed so you can talk about referrals. [employer] Other 03-02-2022 Evaluation note* Encounter Date Diagnosis Assessment Notes Treatment Notes Treatment Clinical Notes Oct, Generalized pain (ICD-10 - R52) [employer] Other 01-31-2022 Evaluation note* Encounter Date Diagnosis [...] note writ ten by Javed Arreola MA, Pet Care Technician. Edited and approved by Dr. Pop Blandon MD. [employer] Other 12-13-2021 Evaluation note* Encounter Date Diagnosis [...] given Flexeril to help relax her muscles. [employer] Other 10-14-2021 Evaluation note* Encounter Date Diagnosis [...] Patient care instructions given in writting by [facility] document. [employer] Other Evaluation noteNo InformationNort gantto Other Evaluation noteNo assessment information available [facility] Work Phone: History general Narrative - Reported* Type Description Date Medical History HTN Hospitalization History saliva stones [employer] Other History general Narrative - Reported* Type Description Date Medical History HTN Medical History back pain Hospitalization History saliva stones [employer] Other History general Narrative - Reported* Type Description Date Medical History HTN Medical History Back pain Medical History Day time fatigue Medical History Depression Medical History Gestational diabetes in the past Medical History Spinal stenosis Medical History Chronic pain requiring narcotic use Hospitalization History saliva stones [employer] Other Hisxuqn general Narrative - Reported* Type Description Date Medical History HTN Medical History Back pain Medical History Day time fatigue Medical History Depression Medical History Gestational diabetes in the past Medical History Spinal stenosis Medical History Chronic pain requiring narcotic use Hospitalization History saliva stones Hospitalization History [facility] ER pneumonia 09/2021 [employer] Other Hisuwvk general Narrative - ReportedNonanoPay inc[employer] Other Hospital Discharge instructions Additional Instructions Use your albuterol inhaler as prescribed for your shortness of breath and wheezing. Take Levaquin and prednisone as prescribed for pneumonia and laryngitis follow-up with the PCP for reevaluation in 5 to 7 days. .[facility] Work Phone: reason for visit NarrativeNeurosurgery Referral Update [employer] Other reason for visit NarrativePain Medicine Ref[facility] Other reason for visit NarrativeDermatology Referral Update [employer] Other Summary Purpose Family History No Family [...] CONTRAST ArtemioEdie cornelius N, DO [address] [place] [address] Reason his shefflied o ffice - patient has history of chronic back pain and would like opinion if surgery is option Diagnosis 1 Pain in left lumbar region of back (M54.50) Diagnosis 2 Lumbar degenerative disc disease (M51.36) Diagnosis 3 DDD (degenerative di sc disease), lumbar (M51.36) Diagnosis 4 Other spondylosis wi th radiculopathy, lumbar region (M47.26) Referral Organization [facility] Family Medicin e Rafi Referring [...] they have other Neurosurgeons there, then [facility] 07:55:07 AM >Waiting for office notes to be locked before sending referral [facility] 03/10/2022 10:08:27 AM >Referral was fax Reason * 07/09 lumbar p ain [facility] Diagnosis 1 Lumbar degenerative disc disease (M51.36) Referral Organization [facility] Family Medicin e Rafi Referring Provider First Name Ellie Referring Provider Last Name Juan Jose Referring Provider Specialty Nurse Pract itioner Referred Organization [facility] Referred Address [address] [place] Referred Provider Specialty Pain Medicin e Referral Priority Routine General Notes Serene Lucas 03:02:38 PM >Received and fax referral today Clinical Notes Office [phone] Reason CANCELLED recently changed skin lesions on face Diagnosis 1 Skin lesion (L98.9) Referral Organization [facility] Medicin e Rafi Referring Provider First Name Ellie Referring Provider Last Name Juan Jose Referring Provider Specialty Nurse Pract itioner Referred Organization [facility] Referred Address [address] [facility] [address],[place],[address] Referred Provider Specialty Dermatology Referral Priority Routine [...] Diagnosis 1 Sleep apnea (G47.30) Referral Organization [facility] Referring Provider First Name Danya Referring Provider Last Name byron Referring Provider Specialty Nurse Pract itioner Referred Organization [facility] Referred Address [address] [place],[address] Referred Provider Specialty Sleep Medici ne Referral [...] section and content) DATE CREATED AUTHOR 08/14/2020 [facility] DATE CREATED AUTHOR AUTHOR'S ORGANIZ ATION 11/20/2022 [facility] DATE CREATED AUTHOR AUTHOR'S ORGANIZ ATION [facility]20[facility] DATE CREATED AUTHOR AUTHOR'S ORGANIZ ATION 08/11/2023 [facility] Reason for Visit (unrecogniz ed section and content) Status Reason Specialty Diagnoses / Procedures Referre d By Contact Referred To Contact Closed Radiology Diagnoses Lateral epicondylitis, left elbow Pain in left elbow Procedures HC MRI-UPPER EXT JNT WO CONT Edie Singh, DO [address] [place] [address] [facility] [address] [place] [id number] Care Teams (unrecognized sec tion and content) Team Status: Inactive Member Role Status Dates NON STAFF Primary Care Provider Active eRinaldo Mehta DO Emergency Provider Active Team Status: [...] Member Role Status Dates Ellie Torres , SKIN LAP BONDER-C Primary Care Provider Active Danya Carty APRN Referring Provider Active Gurmeet Olmedo MD Attending Provider Active Team Status: Inactive Member Role Status Dates Ellie Torres , SKIN LAP BONDER-C Primary Care Provider Active Gurmeet Olmedo MD Attending Provider Active Team Status: Inactive Member Role Status Dates Ellie Torres , SKIN LAP BONDER-C Primary Care Provider Active Gurmeet Palacios DO [...] BE BASED ON THE PRIMARY CLINICAL RECORDS. [facility]. provides no warranty or guarantee of the accuracy or completeness of information in this document.
[2023-10-13 23:48] LABS: Glucometer 121 mg/dL (74-106)
[2023-10-13] MEDS: ENOXAPARIN SODIUM 30 MG/0.3 ML SYRINGE SUBQ (23:53)
[2023-10-14] VITALS (18 sets, daily range): BP systolic 101–109; BP diastolic 68–73; PULSE 85–129; RESP 18–26; TEMP 36.6–36.9; O2SAT 92–95
[2023-10-14 00:47] LABS: Bilirubin Urine NEGATIVE (NEGATIVE); Blood Urine NEGATIVE (NEGATIVE); Clarity Urine CLEAR (CLEAR); Color Urine LT. YELLOW (YELLOW); Glucose Urine UA NEGATIVE (NEGATIVE); Ketones Urine NEGATIVE (NEGATIVE); Leukocyte Esterase Urine NEGATIVE (NEGATIVE); Nitrite Urine NEGATIVE (NEGATIVE); Protein Urine NEGATIVE (NEG/TRACE); Urobilinogen Urine 0.2 EU/dL (0.2-1.0); pH Urine 5.5 (5.0-9.0)
[2023-10-14 00:48] LABS: Urine Microscopic Indicated NO
[2023-10-14 05:05] LABS: Basophils Percent Auto 0.3 % (0.2-2.0); Eosinophils Absolute Auto 0.2 10^3/uL (0.0-0.7); Eosinophils Percent Auto 1.4 % (0.9-7.0); Hematocrit 31.8 % (36.0-48.0); Hemoglobin 10.5 g/dL (12.0-16.0); Immature Granulocytes Abs Auto 0.14 10^3/uL (0.00-0.03); Immature Granulocytes Pct Auto 1.2 % (0.0-0.5); Lymphocytes Absolute Auto 2.9 10^3/uL (1.2-3.8); Lymphocytes Percent Auto 24.7 % (20.5-60.0); Mean Corpuscular Hemoglobin 31.3 pg (26.7-34.0); Mean Corpuscular Volume 94.9 fL (81.0-99.0); Mean Platelet Volume 9.1 fL (9.5-13.5); Monocytes Absolute Auto 1.3 10^3/uL (0.3-0.8); Monocytes Percent Auto 10.7 % (1.7-12.0); Neutrophils Absolute Auto 7.3 10^3/uL (1.4-6.5); Neutrophils Percent Auto 61.7 % (43.0-75.0); Platelet Count 398 10^3/uL (150-450); Red Blood Count 3.35 10^6/uL (4.20-5.40); Red Cell Distribution Width 14.6 % (11.0-15.0); White Blood Count 11.8 10^3/uL (4.0-11.0)
[2023-10-14 05:14] LABS: Partial Thromboplastin Time 31.2 sec (22.3-36.2)
[2023-10-14 05:40] LABS: Alanine Aminotransferase 20 U/L (14-59); Albumin Globulin Ratio 0.8; Albumin Level 2.7 g/dL (3.4-5.0); Alkaline Phosphatase 83 U/L (46-116); Anion Gap 11.5; Aspartate Amino Transferase 9 U/L (15-37); Bilirubin Total 0.2 mg/dL (0.2-1.0); Calcium 7.8 mg/dL (8.5-10.1); Carbon Dioxide 24.3 mmol/L (21.0-32.0); Chloride 108 mmol/L (98-107); Estimated GFR (African America 26 (>=60); Estimated GFR (Non-African Ame 22 (>=60); Globulin 3.4 g/dL; Glucose 115 mg/dL (74-106); Potassium 4.8 mmol/L (3.5-5.1); Sodium 139 mmol/L (136-145); Total Protein 6.1 g/dL (6.4-8.2)
[2023-10-14 11:38] LABS: Glucometer 88 mg/dL (74-106)
--- NOTE | 2023-10-14 11:45 | PM.HP ---
H&P: HPI History of Present Illness Chief complaint: Abnormal Labs Dizziness Acute Kidney Injury Narrative: 52 y/o female to ER c/o lightheadedness off and on for several weeks. To ER 10/08 and noted low BP and tachycardia. Given IV fluids and CTA negative. Discharged home. Seen by PCP and labs ordered. Continued to c/o lightheadedness and directed to ER. No motion or spinning. Feels lightheaded and like will pass out. Symptoms only when up and moving. Often will develop heart racing. Labs showed elevated WBC and JOSE. UA and respiratory panel negative. Admitted for treatment. Given IV fluids overnight. Continues to have symptoms. Attempted to ambulate about 30 feet and felt lightheaded and pulse 105-120. Review of medication shows patient on symbicort and albuterol but reports she is on this for allergies. C/o cough and mild SOB for over a week. Review of Systems ROS Constitutional Denies: fever, chills or fatigue Cardiovascular Reports: lightheadedness; Denies: chest pain, palpitations or edema Respiratory Reports: shortness of breath and cough; Denies: wheezing Gastrointestinal Denies: abdominal pain, nausea, vomiting or diarrhea Genitourinary Denies: painful urination PFSH PFS Medical History (Updated 10/14/23 @ 11:50 by Ned Wilburn MD) Prediabetes ?R73.03 - Prediabetes (ICD-10) Lumbar spondylosis ?M47.816 - Spondylosis without myelopathy or radiculopathy, lumbar region (ICD-10) Back pain ?M54.9 - Dorsalgia, unspecified (ICD-10) Anxiety ?F41.9 - Anxiety disorder, unspecified (ICD-10) Family History (Updated 10/14/23 @ 00:03 by Mike Wilkerson) Mother Family history of COPD (chronic obstructive pulmonary disease) Family history of cancer Family history of hypertension Grandfather Family history of cancer Family history of diabetes mellitus Family history of myocardial infarction Family history of stroke Grandmother Family history of diabetes mellitus Sister Family history of hypertension Father Family history of hypertension Social History (Updated 10/14/23 @ 00:08 by Mike Wilkerson) Within the past year, how often did you have a drink containing alcohol: monthly or less Within the past year, how often did you have six or more drinks on one occasion: less than monthly Smoking status: Never smoker Non-prescribed substance use: cannabis (any form) Non-prescribed substance use details: vape cbd 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 Highest level of school completed/degree received: some college, no degree Are you now , , , , never or living with a partner: In a typical week, how many times do you talk on the telephone with family, friends, or neighbors: 3 or more times per week How often do you get together with friends or relatives: 3 or more times per week How often do you attend synagogue or muslim services: never Do you belong to any clubs or organizations such as synagogue groups unions, [email or web address] or athleSyMynd groups, or school groups: no Total score: 1 Score interpretation: A score of less than or equal to 1 indicates the most socially isolated. Little interest or pleasure in doing things: more than half the days Feeling down, depressed, or hopeless: not at all Feel stressed/tense/nervous/anxious/difficulty sleeping: not at all Do you think of yourself as: straight/heterosexual Gender Identity: female Meds Home Medications and Allergies Home Medications Medication Instructions Recorded Confirmed Type albuterol sulfate 90 mcg/actuation 2 puff inhalation Q4H PRN 10/08/23 10/13/23 History aerosol inhaler shortness of breath or wheezing amitriptyline 75 mg tablet 75 mg PO QPM 10/08/23 10/13/23 History budesonide-formoterol HFA 160 1 puff inhalation Q12H 10/08/23 10/13/23 History mcg-4.5 mcg/actuation aerosol inhaler (Symbicort) cetirizine 10 mg tablet 10 mg PO DAILY 10/08/23 10/13/23 History duloxetine 60 mg capsule,delayed 60 mg PO BID 10/08/23 10/13/23 History release gabapentin 600 mg tablet 600 mg PO QID 10/08/23 10/13/23 History hydroxyzine HCl 50 mg tablet 50 mg PO TID PRN anxiety 10/08/23 10/13/23 History liraglutide 0.6 mg/0.1 mL (18 mg/3 1.8 mg subcut DAILY 10/08/23 10/13/23 History mL) subcutaneous pen injector (Workableza 2-Florentino) meloxicam 7.5 mg tablet 7.5 mg PO DAILY 10/08/23 10/13/23 History norethindrone (contraceptive) 0.35 0.35 mg PO DAILY 10/08/23 10/13/23 History mg tablet (Deblitane) pantoprazole 20 mg tablet,delayed 20 mg PO DAILY 10/08/23 10/13/23 History release tizanidine 4 mg tablet 4 mg PO TID PRN muscle spasticity 10/08/23 10/13/23 History topiramate 25 mg tablet 25 mg PO QPM 10/08/23 10/13/23 History Allergies Allergy/AdvReac Type Severity Reaction Status Date / Time No Known Drug Allergies Allergy Verified 10/08/23 18:17 Exam Constitutional Vital Signs, click to edit/add: Last Vital Signs Temp 98.0 F 10/14/23 05:00 Pulse 96 H 10/14/23 10:00 Resp 20 10/14/23 05:00 BP 101/69 10/14/23 05:00 Pulse Ox 92 L 10/14/23 05:00 O2 Del Method Room Air 10/14/23 05:00 Documenting provider has reviewed patient's vital signs: yes Common normals: no apparent distress, oriented x3 and alert HENMT Common normals: normocephalic Eye Common normals: PERRL and EOMs intact bilaterally Respiratory Common normals: normal respiratory effort and clear to auscultation bilaterally Cardio Common normals: regular rate, regular rhythm, no gallops, no murmurs and no rub GI Common normals: Normal to inspection, nondistended, normoactive bowel sounds present and non-tender Extremity Common normals: no pedal edema Results Labs Labs: Short CBC 10/13/23 10/14/23 Range/Units 18:31 04:38 WBC 15.7 H 11.8 H (4.0-11.0) 10^3/uL Hgb 11.7 L 10.5 L (12.0-16.0) g/dL Hct 35.2 L 31.8 L (36.0-48.0) % Plt Count 445 398 (150-450) 10^3/uL BMP 10/13/23 10/14/23 18:31 04:38 Sodium 136 139 Potassium 4.3 4.8 Chloride 102 108 H Carbon Dioxide 23.8 24.3 BUN 40.0 H 33.0 H Creatinine 2.63 H 2.35 H Glucose 91 115 H Calcium 8.4 L 7.8 L Liver Function 10/13/23 10/14/23 Range/Units 18:31 04:38 Total Bilirubin 0.2 0.2 (0.2-1.0) mg/dL AST 12 L 9 L (15-37) U/L ALT 22 20 (14-59) U/L Alkaline Phosphatase 91 83 (46-116) U/L Albumin 3.1 L 2.7 L (3.4-5.0) g/dL Urine 10/13/23 Range/Units 23:45 Urine Color Lt. yellow (YELLOW) Urine Clarity Clear (CLEAR) Urine pH 5.5 (5.0-9.0) Ur Specific Bagley 1.010 (1.005-1.025) Urine Protein Negative (NEG/TRACE) mg/dL Urine Glucose (UA) Negative (NEGATIVE) mg/dL Assessment and Plan Assessment and Plan (1) Dizziness: (2) Acute kidney injury: (3) Dehydration, mild: (4) Acute bronchitis: (5) Extrinsic asthma without complication: (6) Hypertension: (7) LACEY (generalized anxiety disorder): Plan Renal function improved but continues to have symptoms. Develops tachycardia and lightheadedness when up and moving. Resume IV fluids. Add solu-medrol and cefdinir. Resume home medication including albuterol. Increase fluid intake. Symptoms for weeks and chronic. If persist may need outpatient work up for autonomic dysfunction and possible POTS.
--- NOTE | 2023-10-14 11:49 | CM.NOTE ---
Rounds made with Dr. Wilburn. Resume home meds and potential discharge later today.
[2023-10-14] MEDS: MELOXICAM 7.5 MG TABLET PO (12:24)
[2023-10-14] MEDS: CETIRIZINE HCL 10 MG TABLET PO (12:24)
[2023-10-14] MEDS: CEFDINIR 300 MG CAPSULE PO ×2 (12:24→21:11)
[2023-10-14] MEDS: 0.9 % SODIUM CHLORIDE 1,000 ML 75 ML IV (12:24)
[2023-10-14] MEDS: GABAPENTIN 300 MG CAPSULE 600 MG PO ×3 (12:25→21:11)
[2023-10-14] MEDS: OMEPRAZOLE 20 MG CAPSULE.DR PO (12:25)
[2023-10-14] MEDS: METHYLPREDNISOLONE SOD SUCC PF 125 MG/2 ML VIAL 60 MG IVP ×3 (12:25→23:45)
[2023-10-14] MEDS: DULOXETINE HCL 60 MG CAPSULE.DR PO ×2 (12:25→21:11)
--- NOTE | 2023-10-14 15:07 | SWNOTE1 ---
SW spoke to pt about home health coming in. She voiced she has been referred by her PCP to do water therapy. She is going to start this next week. At this time she voices water therapy helps her and she would like to continue with plan of outpt services.
[2023-10-14] MEDS: ACETAMINOPHEN 325 MG TABLET 650 MG PO (15:56)
[2023-10-14] MEDS: ALBUTEROL SULFATE 2.5 MG/3 ML VIAL NEB IH ×2 (17:06→22:59)
[2023-10-14 17:26] LABS: Glucometer 177 mg/dL (74-106)
[2023-10-14] MEDS: INSULIN ASPART 300 UNIT/3 ML PEN SUBQ ×2 (17:29→21:23)
[2023-10-14] MEDS: AMITRIPTYLINE HCL 25 MG TABLET 75 MG PO (21:11)
[2023-10-14] MEDS: TOPIRAMATE 25 MG TABLET PO (21:11)
[2023-10-14] MEDS: ENOXAPARIN SODIUM 30 MG/0.3 ML SYRINGE SUBQ (21:11)
[2023-10-14 21:22] LABS: Glucometer 333 mg/dL (74-106)
[2023-10-14] MEDS: BUDESONIDE 0.5 MG/2 ML AMPULE NEB IH (22:59)
[2023-10-15] VITALS (14 sets, daily range): BP systolic 92–94; BP diastolic 53–60; PULSE 78–123; RESP 18–22; TEMP 36.5; O2SAT 91–99
[2023-10-15] MEDS: 0.9 % SODIUM CHLORIDE 1,000 ML 75 ML IV (01:20)
[2023-10-15] MEDS: ALBUTEROL SULFATE 2.5 MG/3 ML VIAL NEB IH ×2 (04:05→11:23)
[2023-10-15 05:09] LABS: Basophils Percent Auto 0.2 % (0.2-2.0); Hematocrit 35.6 % (36.0-48.0); Immature Granulocytes Abs Auto 0.22 10^3/uL (0.00-0.03); Immature Granulocytes Pct Auto 1.5 % (0.0-0.5); Lymphocytes Percent Auto 6.7 % (20.5-60.0); Mean Corpuscular HGB Conc 30.9 g/dL (29.9-35.2); Mean Corpuscular Hemoglobin 31.2 pg (26.7-34.0); Mean Corpuscular Volume 100.8 fL (81.0-99.0); Mean Platelet Volume 9.1 fL (9.5-13.5); Monocytes Absolute Auto 0.3 10^3/uL (0.3-0.8); Monocytes Percent Auto 1.7 % (1.7-12.0); Neutrophils Absolute Auto 13.5 10^3/uL (1.4-6.5); Neutrophils Percent Auto 89.9 % (43.0-75.0); Platelet Count 388 10^3/uL (150-450); Red Blood Count 3.53 10^6/uL (4.20-5.40); Red Cell Distribution Width 14.9 % (11.0-15.0)
[2023-10-15] MEDS: GABAPENTIN 300 MG CAPSULE 600 MG PO ×2 (05:37→11:34)
[2023-10-15] MEDS: METHYLPREDNISOLONE SOD SUCC PF 125 MG/2 ML VIAL 60 MG IVP ×2 (05:37→11:49)
[2023-10-15] MEDS: OMEPRAZOLE 20 MG CAPSULE.DR PO (05:37)
[2023-10-15] MEDS: ACETAMINOPHEN 325 MG TABLET 650 MG PO (05:39)
[2023-10-15 05:58] LABS: Alanine Aminotransferase 19 U/L (14-59); Albumin Globulin Ratio 0.7; Albumin Level 2.6 g/dL (3.4-5.0); Alkaline Phosphatase 77 U/L (46-116); Anion Gap 19.5; Aspartate Amino Transferase 13 U/L (15-37); BUN Creatinine Ratio 17.2; Bilirubin Total 0.1 mg/dL (0.2-1.0); Calcium 8.1 mg/dL (8.5-10.1); Carbon Dioxide 14.5 mmol/L (21.0-32.0); Chloride 110 mmol/L (98-107); Estimated GFR (African America 40 (>=60); Estimated GFR (Non-African Ame 33 (>=60); Globulin 3.9 g/dL; Glucose 220 mg/dL (74-106); Sodium 139 mmol/L (136-145); Total Protein 6.5 g/dL (6.4-8.2)
[2023-10-15 07:40] LABS: Glucometer 204 mg/dL (74-106)
[2023-10-15] MEDS: INSULIN ASPART 300 UNIT/3 ML PEN SUBQ ×2 (08:07→11:34)
[2023-10-15] MEDS: CETIRIZINE HCL 10 MG TABLET PO (08:49)
[2023-10-15] MEDS: CEFDINIR 300 MG CAPSULE PO (08:49)
[2023-10-15] MEDS: MELOXICAM 7.5 MG TABLET PO (08:49)
[2023-10-15] MEDS: DULOXETINE HCL 60 MG CAPSULE.DR PO (08:49)
[2023-10-15] MEDS: FLUDROCORTISONE ACETATE 0.1 MG TABLET PO (09:50)
[2023-10-15] MEDS: METOPROLOL TARTRATE 25 MG TABLET PO (10:02)
--- NOTE | 2023-10-15 10:07 | CA_ITS ---
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1970 Requested By: NIC ECKERT Order Number: [id number] Reading MD: MARLYS LEON Interpretive Statements Predominant rhythm is sinus with average rate of 86 bpm Tachycardia - max rate of 136 bpm (sinus tachycardia) - 2 episodes of PSVT w/ longest duration 4 beats - longest episode of 3h 6min 6sec w/ rates between 110-121 bpm Bradycardia - min rate of 48 bpm - longest episode of 44sec with rates between 48-54 bpm Ventricular ectopy - 99 total, <1% - 65 PVC - 34 couplets Patient triggered events: 4 - associated with symptoms of palpitations, SOB - associated with rates of 106, 116, 111 and sinus rhythm Impression: Predominant rhythm is sinus with average rate of 86 bpm Fastest rate of 136 (sinus tachycardia) and slowest rate of 48 bpm 65 PVC and 34 couplets No atrial fibrillation No pauses or blocks Electronically Signed On 11-09-2023 22:46:41 EDT by MARLYS LEON
[2023-10-15] MEDS: BUTALB/ACETAMINOPHEN/CAFFEINE 50-325-40MG TABLET 1 TAB PO (10:31)
--- NOTE | 2023-10-15 10:53 | CM.NOTE ---
Rounds made with Dr. Wilburn, discussed with pt HH services vs outpatient water therapy. Pt is set up to start outpatient water therapy and Dr. Wilburn in agreement to continue with outpatient therapy. Pt is not homebound at this time.
[2023-10-15 11:13] LABS: Glucometer 292 mg/dL (74-106)
[2023-10-15] MEDS: BUDESONIDE 0.5 MG/2 ML AMPULE NEB IH (11:23)
--- NOTE | 2023-10-15 11:38 | PT.DAILY ---
Physical Therapy Daily Note PT Daily Note/Assess Start: 10/15/23 11:34 Freq: Status: Active Protocol: Document 10/15/23 11:15 MAGALY (Rec: 10/15/23 11:38 MAGALY [id number]) Visit Not Completed Visit Not Completed Visit Not Completed Due to: Other Other Reason Visit Not Completed Stopped in and spoke with patient. Patient reports being DC home today. Patient reports has been up in room Independently without issues. Will be continuing with OP Aquatic therapy in 7 days as patient will be wearing Holter monitor for next 7 days. Answered all patient's questions, and denied any other needs at this time. Physical Therapy Daily Note/Assessment Time In/Time Out Time In 11:15 Time Out 11:30 GG. Functional Abilities and Goals-Complete for Swing Bed Patients Only [id number]. Self-Care [id number]. Mobility
--- NOTE | 2023-10-15 11:52 | PM.DS1 ---
DS: Providers Provider Date of admission: 10/13/23 21:52 Primary care physician: ELLIE TORRES Consults: 10/14/23 11:00 Physical Therapy Eval and Treat Routine Reason for consultation: Lightheaded DS: Diagnosis Discharge Diagnosis (1) Autonomic dysfunction: (2) Tachycardia: (3) Acute kidney injury: (4) Dizziness: (5) Acute bronchitis: (6) Dehydration, mild: (7) Extrinsic asthma without complication: (8) Hypertension: (9) LACEY (generalized anxiety disorder): (10) Stage 3b chronic kidney disease (CKD): DS: Summary Hospital Course Hospital Course: Reason for admission: See H&P for details. 52 y/o female to ER c/o lightheadedness off and on for several weeks. To ER 10/08 and noted low BP and tachycardia. Given IV fluids and CTA negative. Discharged home. Seen by PCP and labs ordered. Continued to c/o lightheadedness and directed to ER. No motion or spinning. Feels lightheaded and like will pass out. Symptoms only when up and moving. Often will develop heart racing. Labs showed elevated WBC and JOSE. UA and respiratory panel negative. Admitted for treatment. Hospital course: Given IV fluids overnight. Continued to have symptoms. Attempted to ambulate about 30 feet and felt lightheaded and pulse 105-120. Review of medication shows patient on symbicort and albuterol but reports she is on this for allergies. C/o cough and mild SOB for over a week. Added cefdinir and solu-medrol for bronchitis. Patient slowly improved. Continued to have symptoms of lightheadedness and heart racing with ambulation. Patient reports has felt this way for years. BP remains low and likely autonomic dysfunction and possible POTS. Started florinef and metoprolol. Patient stable and discharged home. Will place 7 day Holter upon discharge. Continue florinef and metoprolol. Take cefdinir and prednisone for bronchitis. Follow up with PCP in 1-2 weeks and may need outpatient cardiology evaluation. Time Spent with Patient Time attestation: Total time spent providing and/or coordinating discharge services: Exam Constitutional Vital Signs, click to edit/add: Last Vital Signs Temp 97.7 F 10/15/23 05:16 Pulse 114 H 10/15/23 11:24 Resp 22 02/16/24 08:10 BP 94/60 10/15/23 08:06 Pulse Ox 99 10/15/23 11:24 O2 Del Method Room Air 10/15/23 11:24 Documenting provider has reviewed patient's vital signs: yes Common normals: no apparent distress, oriented x3 and alert HENMT Common normals: normocephalic Eye Common normals: PERRL and EOMs intact bilaterally Respiratory Common normals: normal respiratory effort and clear to auscultation bilaterally Cardio Common normals: regular rate, regular rhythm, no gallops, no murmurs and no rub GI Common normals: Normal to inspection, nondistended, normoactive bowel sounds present and non-tender Extremity Common normals: no pedal edema DS: Data Data Completed and Pending Labs on day of discharge: Labs from last 24 hours 10/15/23 10/15/23 10/15/23 11:12 07:39 04:28 WBC 15.0 H RBC 3.53 L Hgb 11.0 L Hct 35.6 L MCV 100.8 H MCH 31.2 MCHC 30.9 RDW 14.9 Plt Count 388 MPV 9.1 L Neut % (Auto) 89.9 H Lymph % (Auto) 6.7 L Wheeler % (Auto) 1.7 Eos % (Auto) 0.0 L Baso % (Auto) 0.2 Neut # (Auto) 13.5 H Lymph # (Auto) 1.0 L Wheeler # (Auto) 0.3 Eos # (Auto) 0.0 Baso # (Auto) 0.0 Abs Immat Gran (auto) 0.22 H Imm/Tot Granulo (auto) 1.5 H Sodium 139 Potassium 5.0 Chloride 110 H Carbon Dioxide 14.5 L Anion Gap 19.5 BUN 28.0 H Creatinine 1.63 H Est GFR ( Amer) 40 L Est GFR (Non-Af Amer) 33 L BUN/Creatinine Ratio 17.2 Glucose 220 H Calcium 8.1 L Total Bilirubin 0.1 L AST 13 L ALT 19 Alkaline Phosphatase 77 Total Protein 6.5 Albumin 2.6 L Globulin 3.9 Albumin/Globulin Ratio 0.7 POC Glucose 292 H 204 H 10/14/23 10/14/23 21:21 17:25 WBC RBC Hgb Hct MCV MCH MCHC RDW Plt Count MPV Neut % (Auto) Lymph % (Auto) Wheeler % (Auto) Eos % (Auto) Baso % (Auto) Neut # (Auto) Lymph # (Auto) Wheeler # (Auto) Eos # (Auto) Baso # (Auto) Abs Immat Gran (auto) Imm/Tot Granulo (auto) Sodium Potassium Chloride Carbon Dioxide Anion Gap BUN Creatinine Est GFR ( Amer) Est GFR (Non-Af Amer) BUN/Creatinine Ratio Glucose Calcium Total Bilirubin AST ALT Alkaline Phosphatase Total Protein Albumin Globulin Albumin/Globulin Ratio POC Glucose 333 H 177 H Discharge Plan Discharge Disposition: Home, Self-Care Condition: Good Discharge Medications: New cefdinir 300 mg Capsule 300 mg PO BID 10 Days Qty: 20 0RF fludrocortisone 0.1 mg Tablet 0.1 mg PO QD Qty: 30 0RF metoprolol tartrate 25 mg Tablet 25 mg PO BID Qty: 60 0RF prednisone 50 mg tablet 50 mg PO DAILY 5 Days Qty: 5 0RF biytslokxl-jehgegqdqpvol-snue 50-325-40 mg Tablet 1 tab PO Q6H PRN (Reason: Headache) Qty: 20 0RF Continued albuterol sulfate 90 mcg/actuation HFA aerosol inhaler 2 puff INHALATION Q4H PRN (Reason: shortness of breath or wheezing) amitriptyline 75 mg tablet 75 mg PO QPM cetirizine 10 mg tablet 10 mg PO DAILY budesonide-formoterol [Symbicort] 160-4.5 mcg/actuation HFA aerosol inhaler 1 puff INHALATION Q12H duloxetine 60 mg capsule,delayed release(DR/EC) 60 mg PO BID gabapentin 600 mg tablet 600 mg PO QID hydroxyzine HCl 50 mg tablet 50 mg PO TID PRN (Reason: anxiety) Victoza 2-Florentino 0.6 mg/0.1 mL (18 mg/3 mL) pen injector 1.8 mg SUBCUT DAILY meloxicam 7.5 mg tablet 7.5 mg PO DAILY norethindrone (contraceptive) [Deblitane] 0.35 mg tablet 0.35 mg PO DAILY pantoprazole 20 mg tablet,delayed release (DR/EC) 20 mg PO DAILY tizanidine 4 mg tablet 4 mg PO TID PRN (Reason: muscle spasticity) topiramate 25 mg tablet 25 mg PO QPM Activity: increase activity as tolerated Diet: advance to your usual diet Forms: Portal Instructions Follow Up Appointments: @ 10:30am with Ellie Torres NP [phone]
== END 2023-10-15 14:29 | disposition home or self-care (01) ==
LOC: ER 20:44 → MS 21:56
PROVIDERS: Family Medicine; Nurse Practitioner Acute Care; Physician Assistant; Admitting Provider Family Medicine; Emergency Provider Emergency Medicine; PCP Nurse Practitioner Family; Visit Provider Family Medicine
DX: R42 Dizziness and giddiness (principal); N17.9 Acute kidney failure, unspecified; E86.0 Dehydration; J20.9 Acute bronchitis, unspecified; J45.909 Unspecified asthma, uncomplicated; I10 Essential (primary) hypertension; F41.1 Generalized anxiety disorder; R00.0 Tachycardia, unspecified; F45.8 Other somatoform disorders; I12.9 Hypertensive chronic kidney disease with stage 1 through stage 4 chronic kidney disease, or unspecified chronic kidney disease; N18.32 Chronic kidney disease, stage 3b; F12.90 Cannabis use, unspecified, uncomplicated; R73.03 Prediabetes; Z79.899 Other long term (current) drug therapy; Z20.822 Contact with and (suspected) exposure to COVID-19
CPT/HCPCS: 0202U; 36415; 70450; 76775; 80053; 81003; 82948; 83735; 84484; 85007; 85025; 85027; 85730; 86308; 93005; 93246; 94640; 96361; 96372; 96374; 96376; 97162; 99285; G0378; J1650; J2930

== ENCOUNTER 2023-11-23 12:07 | Outpatient (OUT) | payer OTHER, SELFPAY ==
--- NOTE | 2023-11-23 12:30 | XR_ITS ---
The [address] [id number] Patient Name: JOSELITO VIDAL MRN: [id number] date: 1970 Sex: F Assigned Patient Location: [facility] Current Patient Location: [facility] Accession/Order Number: [id number] Exam Date: 11/23/2023 12:25 Report Date: 11/23/2023 13:32 At the request of: LIT TORRES Procedure: XR foot RT min 3V PROCEDURE: XR foot RT min 3V COMPARISON: None. HISTORY: right foot pain M79.671 FINDINGS: BONES:No fracture, acute abnormality, or significant arthropathy. Mild enthesopathic spurring of the calcaneus at the Achilles insertion SOFT TISSUES:Negative. No visible soft tissue swelling. EFFUSION:None visible. OTHER: Negative. XR/XR foot RT min 3V IMPRESSION: No acute radiographic abnormality Electronically authenticated by: JANEEN MUÑOZ Date: 11/23/2023 13:32
== END 2023-11-23 12:08 | disposition home or self-care (01) ==
LOC: RAD 12:08
PROVIDERS: PCP Nurse Practitioner Family; Visit Provider Nurse Practitioner Family
DX: M79.671 Pain in right foot (principal)
CPT/HCPCS: 73630

== ENCOUNTER 2024-06-23 10:19 | Outpatient (RCR) | payer OTHER, SELFPAY | END 2024-07-25 08:24 | disposition home or self-care (01) | LOC: PT 10:19 | PROVIDERS: PCP Nurse Practitioner Family | DX: M48.062 Spinal stenosis, lumbar region with neurogenic claudication (principal) | CPT/HCPCS: 97113; 97162 ==

== ENCOUNTER 2024-12-19 12:55 | Outpatient (RCR) | payer MEDICARE, SELFPAY | END 2025-01-19 07:53 | disposition home or self-care (01) | LOC: PT 12:55 | PROVIDERS: PCP Nurse Practitioner Family; Visit Provider Nurse Practitioner Family | DX: M43.07 Spondylolysis, lumbosacral region (principal); M15.9 Polyosteoarthritis, unspecified | CPT/HCPCS: 97110; 97113; 97162 ==

== ENCOUNTER 2025-04-19 14:07 | Outpatient (OUT) | payer MEDICARE, MEDICAID, SELFPAY ==
--- OUTSIDE RECORDS SUMMARY | 2025-03-08 07:00 | XMS_ITS ---
Author Organization [facility] es Address [address] [place] [place] [address] Care Team Providers Care Seed Laboratory Assistant Name Role Phone Ellie Bartholomew Primary Care Provider Marie Waggoner Unavailable [phone] Rancho Hernandez Unavailable [phone] REASON FOR VISIT 4wk med f/u Encounters Encounter Location Date Provider Diagnosis [facility] [address] [place] [address] 03/08/2025 Rancho Hernandez Plan Of Treatment Next Appt Details Provider Name:Rancho rueda, 05/16/2025 10:15:00 AM, [address] [place], [address], Provider Name:Nataliia Monaco, 05/21/2025 10:00:00 AM, [address], [place], [address], Progress Notes * JOSELITO VIDALDOB: [birth year] (54 yo F)Acc No.[id number]:03/08/2025 Progress Notes Patient: Sam MCINTOSH JOSELITO Provider: Nury Hernandez :1970 A ge:54 Y S ex:Female Date:03/08/2025 Address:[facility] [id number] Pcp:Ellie Bartholomew Subjective: * Chief Complaints: * 1 . 4wk med f/u. * Medical History: Objective: * Vitals: Assessment: Plan: * Treatment: * Images: * Electronic signature of Katherine Hernandez DO on 04/19/2025 at 02:10 PM EDT Sign off status: Pending * Provider: Nury Hernandez Date: 03/08/2025 Generated for Jb ku/Jonatan/Daniella on: 0 04/19/2025 02:10 PM EDT
--- OUTSIDE RECORDS SUMMARY | 2025-03-16 07:15 | XMS_ITS ---
Author Organization [facility] es Address [address] [place] [address] Care Team Providers Care Sealer Aircraft Name Role Phone Ellie Bartholomew Primary Care Provider [phone] Marie Noel Unavailable [phone] REASON FOR VISIT 6 weeks Encounters Encounter Location Date Provider Diagnosis [place] [address] [address] 03/16/2025 Marie Noel Plan Of Treatment Next Appt Details Provider Name:Rancho rueda, 05/16/2025 10:15:00 AM, [address] [facility], [place], [address], Provider Name:Nataliia Monaco, 05/21/2025 10:00:00 AM, [address] [place], [place], [address], Progress Notes * JOSELITO VIDALDOB: [birth year] (54 yo F)Acc No.[id number]:03/16/2025 Behavioral Health Patient: Sam MENDOZA JOSELITO Appointment Provider: Ruperto NOEL PMHNP-BC :1970 A ge:54 Y S ex:Female Date:03/16/2025 Address:[address] [place], [id number] Pcp:Ellie Bartholomew Subjective: * Chief Complaints: * 1 . 6 weeks. * Medical History: Objective: * Vitals: Assessment: Plan: * Treatment: * Images: * Electronic signature of LEELEE Baker i BC on 04/19/2025 at 02:10 PM EDT Sign off status: Pending * Appointment Provider: LEELEE ESCOBAR- Date: 03/16/2025 Generated for Jb ku/Jonatan/Daniella on: 0 04/19/2025 02:10 PM EDT
--- OUTSIDE RECORDS SUMMARY | 2025-04-18 06:45 | XMS_ITS ---
Author Organization [facility] Address [address] [place] [address] Care Team Providers Care Coremaker Experimental Name Role Phone Ellie Bartholomew Primary Care Provider Marie Waggoner Unavailable [phone] Rancho Hernandez Unavailable [phone] Allergies No Known Allergies REASON FOR VISIT med recheck Medications Medication SIG (Take, Route, Frequency, Duration) Notes Start Date End Date Status Pantoprazole Sodium 20 mg TAKE 1 TABLET BY MOUTH ONCE DAILY; Duration: 30 days Active tiZANidine HCl 4 MG 1 capsule as needed Orally Three times a day; Duration: 30 days 07/13/2025 Active Nurtec 75 MG 1 tablet on the tongue and allow to dissolve Orally once a day; Duration: 30 days 08/28/2024 10/22/2025 Not-Taking busPIRone HCl 5 MG 1 tablet Orally Twic e a day; Duration: 30 days 01/25/2025 Not-Taking Cyanocobalamin 1000 MCG/ML 1 mL Injection every 4 week; Duration: 28 days 12/29/2024 11/30/2025 Active Jardiance 25 MG 1 tablet Orally Once a day; Duration: 90 days 11/09/2023 06/16/2025 Active Midodrine HCl 2.5 MG 1 tablet Oral twice day; Duration: 30 days Active Ondansetron 8 MG 1 tablet on the tongue and allow to dissolve Orally every 8 hours; Duration: 12 days 10/25/2023 Active Ozempic (0.25 or 0.5 MG/DOSE) 2 MG/3ML inject 0.25 mg Subcutaneous once a week; Duration: 28 days 04/18/2025 06/13/2025 Active Fludrocortisone Acetate 0.1 mg TAKE 1 TABLET BY MOUTH DAILY; Duration: 30 Active Esgic 50-325-40 MG 1 tablet Orally every 4 hrs As needed Active Metoprolol Tartrate 25 MG 1 tablet with food Orally Twice a day; Duration: 30 days Active Amitriptyline HCl 25 MG 1 tablet at bedt yesi Orally Once a day; Duration: 30 day(s) 04/18/2025 Active traMADol HCl 50 MG 1 tablet as needed Orally Once a day; Duration: 30 days 04/18/2025 05/18/2025 Active Social History Tobacco Use: Social History Observation Description Date Details (start date - stop date) Never Smoker NA - NA Sexual Hx: Question Answer Notes Had sex in the last 12 months (vaginal, oral, or anal)? Yes with Men only Use protection? No Prevention Strategies discussed: Other Have you ever had an STD? No AUDIT-C (Standard) Question Answer Notes Did you have a drink contain ing alcohol in the past year? Yes How often did you have a dri nk containing alcohol in the past year? Monthly or less (1 point) How many drinks did you have on a typical day when you were drinking in the past year? 1 or 2 drinks (0 point) How often did you have six o r more drinks on one occasion in the past year? 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 ; Neuropathic pain M79.2 ; Chronic insomnia F51.04 and Lumbosacral spondylolysis M43.07 Assessments Encounter Date Diagnosis (ICD Code) Assessment Notes Treatment Notes Treatment Clinical Notes Section Notes 04/18/2025 Spondyloarthropathy of lumbar spine (ICD-10 - M47.816) 04/18/2025 Type 2 diabetes mellitus with diabetic nephropathy, without long-term current use of insulin (ICD-10 - E11.21) 04/18/2025 Neuropathic pain (ICD-10 - M79.2) 04/18/2025 Chronic insomnia (ICD-10 - F51.04) 04/18/2025 Lumbosacral spondylolysis (ICD-10 - M43.07) Plan Of Treatment Medication Medication Name Sig Start Date Stop Date Notes Ozempic (0.25 or 0.5 MG/DOSE ) 2 MG/3ML inject 0.25 mg Subcutaneous once a week; Duration: 28 days 04/18/2025 06/13/2025 tiZANidine HCl 4 MG 1 capsule at bedtime as needed Oral 3 times 05/30/2025 Amitriptyline HCl 25 MG 1 tablet at bedt yesi Orally Once a day; Duration: 30 day(s) 04/18/2025 traMADol HCl 50 MG 1 tablet as needed O rally Once a day; Duration: 30 days 04/18/2025 05/18/2025 Temazepam 30 MG 1 capsule at bedtime as needed Oral Once a day 02/14/2025 dexAMETHasone 4 MG 3 tablets for 3 days then 2 tablets for 3 days then 1 tablet for 3 days Orally Once a day 12/29/2024 Gabapentin 400 MG 1 capsule Orally 3 t imes a day Next Appt Details Provider Name:Rancho rueda, 05/16/2025 10:15:00 AM, [address] [facility], [place], [address], Provider Name:Nataliia Monaco, 05/21/2025 10:00:00 AM, [address], [place], [address], Progress Notes * JOSELITO VIDALDOB: [birth year] (54 yo F)Acc No.[id number]:04/18/2025 Progress Notes Patient: Sam JOSELITO MENDOZA Provider: Nury Hernandez :1970 A ge:54 Y S ex:Female Date:04/18/2025 Address:[facility] [place], [id number] Pcp:Ellie Bartholomew Subjective: * Chief Complaints: * 1 . Med recheck. * HPI: C onstitutional: Pt presents for med recheck. MED REFILL. Would like to change from trulicity to Oxempic or Mounjaro. And a referral for pool therapy. Last seen 01-30-25 Started: Trulicity Solution Auto-injector, 4.5 MG/0.5ML and Methocarbmal 750 mg. D epression Screening: PHQ-2 (2015 Edition) L ittle interest or pleasure in doing things??Not at all F eeling down, depressed, or hopeless? N ot at all T otal Score 0 * Medical History: S pondylolithesis with radiculapathy, Lumbar fracture, POTS, DM, HTN, CKD, Chronic insomnia. * Surgical History: k idney stone 2024. * Hospitalization/Major Diagno stic Procedure: s aliva stones at [facility] 2008, child (x4) 1990, 1993, 2002, 2006 , Extreme Dizziness - [facility] 2023, kidney stone 2024. * Family History: F ather: alive, diagnosed with Hypertension. M other: , lung cancer, diagnosed with Cancer. 1 brother(s) , 1 sister(s) - healthy. 1 son(s) , 3 daughter(s) . . Pt gave to 4 girls biologically, one of which is transgender and identifies as her son. * Social History: D rug/Alcohol: A MELODY-C (Standard) D id you have a drink containing alcohol in the past year? Y es H ow often did you have a drink containing alcohol in the past year? M onthly or less (1 point) H ow many drinks did you have on a typical day when you were drinking in the past year? 1 or 2 drinks (0 point) H ow often did you have six or more drinks on one occasion in the past year? N ever (0 point) P oints 1 I nterpretation N egative G eneral: T ransition of Care E R/UC/hospital since last office visit? N o S pecialist seen since last office visit? N o Behaviors affecting health P oor/Risky Behaviors: D enies- Substance abuse/mental health issues of patient/family P atient - C affeine Use No hx of substance abuse Social/Support Concerns P atient: N o Ability to understand healthcare/treatment P atient: F air Communication Barrier L anguage Barrier?: N o Sexual Hx H ad sex in the last 12 months (vaginal, oral, or anal)? Y es w ith M en only U se protection? N o P revention Strategies discussed: O ther H ave you ever had an STD? N o T obacco Use: T obacco Control (Standard) T obacco use: N onsmoker * Medications: T aking Metoprolol Tartrate 25 MG Tablet 1 tablet with food Orally Twice a day , Taking Esgic 50-325-40 MG Tablet 1 tablet Orally every 4 hrs As needed, Taking Fludrocortisone Acetate 0.1 mg Tablet TAKE 1 TABLET BY MOUTH DAILY , Taking Midodrine HCl 2.5 MG Tablet 1 tablet Oral twice day , Taking Jardiance 25 MG Tablet 1 tablet Orally Once a day , stop date 06/16/2025, Taking Cyanocobalamin 1000 MCG/ML Solution 1 mL Injection every 4 week , stop date 11/30/2025, Taking Gabapentin 400 MG Capsule 1 capsule Orally 3 times a day , Taking tiZANidine HCl 4 MG Capsule 1 capsule at bedtime as needed Oral 3 times , stop date 05/30/2025, Taking Ondansetron 8 MG Tablet Disintegrating 1 tablet on the tongue and allow to dissolve Orally every 8 hours , Taking Temazepam 30 MG Capsule 1 capsule at bedtime as needed Oral Once a day , Taking tiZANidine HCl 4 MG Capsule 1 capsule as needed Orally Three times a day , stop date 07/13/2025, Taking traMADol HCl 50 MG Tablet 1 tablet as needed Orally Once a day , stop date 04/19/2025, Taking Pantoprazole Sodium 20 mg Tablet Delayed Release TAKE 1 TABLET BY MOUTH ONCE DAILY , Not-Taking/PRN busPIRone HCl 5 MG Tablet 1 tablet Orally Twice a day , Not-Taking/PRN Nurtec 75 MG Tablet Disintegrating 1 tablet on the tongue and allow to dissolve Orally once a day , stop date 10/22/2025, Discontinued hydrOXYzine HCl 50 MG Tablet 1 or 2 tablet as needed for anxiety or sleep Orally three times a day , Discontinued Ketorolac Tromethamine 60 MG/2ML Solution 2ml Intramuscular As needed, Discontinued Topiramate 50 MG Tablet 1 tablet Orally twice a day , Discontinued Albuterol Sulfate HFA 108 (90 Base) MCG/ACT Aerosol Solution INHALE 2 PUFFS BY MOUTH EVERY 4-6 HOURS FOR 14 DAYS , Discontinued Cetirizine HCl 10 mg Tablet TAKE 1 TABLET BY MOUTH DAILY , Discontinued dexAMETHasone 4 MG Tablet 3 tablets for 3 days then 2 tablets for 3 days then 1 tablet for 3 days Orally Once a day , Discontinued DULoxetine HCl 60 mg Capsule Delayed Release Particles TAKE 1 CAPSULE BY MOUTH TWICE DAILY , Discontinued BD Syringe/Needle 25G X 5/8 1 ML Miscellaneous Use to give montly injection , Medication List reviewed and reconciled with the patient * Allergies: N .K.D.A. Objective: * Vitals: H t: 62 in, Wt: 255 lbs, BMI:46.64Index, BP: 120/79 mm Hg, SaO2:92%, HR: 65 /min, RR: 20 /min. Assessment: * Assessment: 1. T ype 2 diabetes mellitus with diabetic nephropathy, without long-term current use of insulin - E11.21 (Primary) 2 . S pondyloarthropathy of lumbar spine - M47.816 ? 3 . N europathic pain - M79.2 4 . C hronic insomnia - F51.04 & #160; 5 . L umbosacral spondylolysis - M43.07 Plan: * Treatment: 2. S pondyloarthropathy of lumbar spine Refill traMADol HCl Tablet, 50 MG, 1 tablet as needed, Orally, Once a day, 30 days, 30 Tablet, Refills 0. 3. N europathic pain Stop Gabapentin Capsule, 400 MG, 1 capsule, Orally, 3 times a day; S tart Amitriptyline HCl Tablet, 25 MG, 1 tablet at bedtime, Orally, Once a day, 30 day(s), 30. 4. C hronic insomnia Stop Temazepam Capsule, 30 MG, 1 capsule at bedtime as needed, Oral, Once a day. 5. L umbosacral spondylolysis Stop dexAMETHasone Tablet, 4 MG, 3 tablets for 3 days then 2 tablets for 3 days then 1 tablet for 3 days, Orally, Once a day; S top tiZANidine HCl Capsule, 4 MG, 1 capsule at bedtime as needed, Oral, 3 times. * Images: * Electronic signature of Katherine Hernandez DO on 04/19/2025 at 02:10 PM EDT Sign off status: Pending * Provider: Nury Hernandez Date: 0 04/18/2025 Generated for Jb ku/Jonatan/Daniella on: 0 04/19/2025 02:10 PM EDT History and Physical Notes * HPI (History of Present Illness) Category Sub-Category Detail Notes Category Not es Depression Screening PHQ-2 (2015 Edition) Little interest or pleasure in doing things?: Not at all Feeling down, depressed, or hopeless?: N ot at all Total Score: 0 Constitutional Pt presents for med recheck. MED REFILL. Would like to change from trulicity to Oxempic or Mounjaro. And a referral for pool therapy. Last seen 01-30-25 Started: Trulicity Solution Auto-injector, 4.5 MG/0.5ML and Methocarbmal 750 mg.
--- OUTSIDE RECORDS SUMMARY | 2025-04-19 14:10 | XMS_ITS | Encounter Summary ---
Author Organization [facility] Address [address] [place] [address] Phone Care Team Providers Care Patient Registrar Name Role Phone Juan JoseEllie Pili ENGINE MANAGER-RENEWABLE ENERGY ENGINEER Primary Care Provider Dileep Ceja MD Unavailable Encounter Details Date Type Department Care Team (Late Contact Info) Description 07/17/2024 Scanned Document [address] [place] [address] Dileep Ceja MD [address] [place] [address] [address] [place], [place] [id number] Social History Tobacco Use Types Packs/Day Years Used Date Smoking Tobacco: Never Assessed Comments Unknown Sex and Gender Information Value Date Recorded Sex Assigned at Not on file Legal Sex Female 5:04 PM EST Gender Identity Not on file Sexual Orientation Not on file documented as of this encounter Plan of Treatment Upcoming Encounters Date Type Department Care Team (Late Contact Info) Description 05/31/2025 1:15 PM EDT Office Visit [facility] [address] [place] [address] [address] [place] [phone] Dileep Ceja MD [address] [place] [address] [address] [place], [place] [id number] documented as of this encounter Visit Diagnoses Not on filedocumented in this encounter Care Teams Patient Registrar Relationship Specialty Start Date End Date Ellie Ingram, ENGINE MANAGER-RENEWABLE ENERGY ENGINEER [address] [place] [address] PCP - General Family Medicine 07/18/24 Dileep Ceja MD [address] [address] Consulting Physician Cardiology 11/09/24 documented as of this encounter
--- OUTSIDE RECORDS SUMMARY | 2025-04-19 14:10 | XMS_ITS | Encounter Summary ---
Author Organization [facility] Address [address] [place] [address] Care Team Providers Care Superintendent Compressor Stations Name Role Phone Ellie Ingram NP Unavailable Rancho Hernandez MD Primary Care Provider [phone] Encounter Details Date Type Department Care Team (Late Contact Info) Description 03/08/2025 Abstract [facility] [address] [place] [id number] Unallocated, [facility] Provider, [address] [place], [place] [id number] Social History Tobacco Use Types Packs/Day Years Used Date Smoking Tobacco: Never Assessed Comments Unknown Sex and Gender Information Value Date Recorded Sex Assigned at Not on file Legal Sex Female 11:06 PM EDT Gender Identity Not on file Sexual Orientation Not on file documented as of this encounter Plan of Treatment Upcoming Encounters Date Type Department Care Team (Late Contact Info) Description 05/02/2025 3:00 PM EDT Office Visit [facility] [address] [place] [address] Alexis Grace DPM [address] [place] [address] 05/08/2025 10:00 AM EDT [facility] [address] [place] [address] Anamika Gunter NP [address] [facility] [address] [place] [address] documented as of this encounter Visit Diagnoses Not on filedocumented in this encounter Care Teams Superintendent Compressor Stations Relationship Specialty Start Date End Date Rancho Hernandez MD [address] [place] [address] PCP - General Family Medicine 03/16/25 Ellie Ingram NP [address] [place], [place] [phone] Referring Physician 07/18/24 documented as of this encounter
--- OUTSIDE RECORDS SUMMARY | 2025-04-19 14:10 | XMS_ITS | Encounter Summary ---
Author Organization [facility] Address [id number] [address] [place] [address] Care Team Providers Care Sheet Metal Installer Name Role Phone Erasmo Ingramnancy OVERTON-FUR CLIPPER Primary Care Provide r Reason for Visit * Reason Comments Med Refill Encounter Details Date Type Department Care Team (Late st Contact Info) Description 02/09/2024 Refill [facility] [address] [place] [place] [address] Naima Macedo, PLATFORM WORKER-INFANT TEACHER [address] [place] [address] Encounter for initial prescription of contraceptive pills Social History Tobacco Use Types Packs/Day Years Used Date Smoking Tobacco: Never Smokeless Tobacco: Never Alcohol Use Standard Drinks/Week Comments Yes 0 (1 standard drink = 0.6 oz pur e alcohol) occasional PHQ-2 Answer Date Recorded Total Score 3 01/19/2024 Childcare Answer Date Recorded Childcare Unknown 03/21/2020 Employment Answer Date Recorded Employment Unknown 03/21/2020 Hunger Screening Answer Date Recorded Within the past 12 months we worried whether our food would run out before we got money to buy more. Never True 01/19/2024 Within the past 12 months th e food we bought just didn't last and we didn't have money to get more. Never True 01/19/2024 Purpose - Life Answer Date Recorded Purpose and direction in life Unknown Comments No Sex and Gender Information Value Date Recorded Sex Assigned at Not on file Legal Sex Female 1:58 PM EDT Gender Identity Not on file Sexual Orientation Not on file documented as of this encounter Plan of Treatment Not on file documented as of this encounter Visit Diagnoses Diagnosis Encounter for initial prescription of contraceptive pills documented in this encounter Additional Health Concerns Assessment Noted Time PHQ-9 Depression Total Score: 3 01/19/20 24 10:25 AM EDT A Body Mass Index follow-up plan has been documented for the patient 01/19/2024 3:37 PM EDT documented as of this encounter Care Teams Sheet Metal Installer Relationship Specialty Start Date End Date Ellie Ingram APRN-FNP [address] [place] [id number] PCP - General Family Medicine 09/22/24 documented as of this encounter
--- OUTSIDE RECORDS SUMMARY | 2025-04-19 14:10 | XMS_ITS | Clinical Summary ---
Author Organization [facility] Address [address] [place] [address] Phone Care Team Providers Care Ham Clerk Name Role Phone Ellie Ingram HIGH PRESSURE KETTLE OPERATOR-FOOTWEAR MACHINERY INSTRUCTOR Primary Care Provider Dileep Ceja MD Unavailable [phone] Allergies No known active allergies Medications albuterol 90 mcg/actuation inhaler Inhale 2 puffs 4 times a day. Active Jardiance 25 mg Take 1 tablet (25 mg) by mouth early in the morning.. 4 Active dulaglutide (TRULICITY SUBQ) Inject 4 mg under the skin 1 (one) time per week. 4 Active DULoxetine (Cymbalta) [address] capsule Take 1 capsule (60 mg) by mouth 2 times a day. Active hydrOXYzine HCL (Atarax) 25 mg tablet Take 1 tablet (25 mg) by mouth every 12 hours. 4 Active topiramate (Topamax) 25 mg tablet Take 3 tablets (75 mg) by mouth once daily at bedtime. Active tiZANidine (Zanaflex) 4 mg tablet Take 1 tablet (4 mg) by mouth 3 times a day as needed. Active ondansetron ODT (Zofran-ODT) 8 mg disintegrating tablet Dissolve 1 tablet (8 mg) in the mouth every 8 hours if needed. 4 Active pantoprazole (ProtoNix) 20 mg EC tablet Take 1 tablet (20 mg) by mouth once daily. Active gabapentin (Neurontin) 400 mg capsule Take 1 capsule (400 mg) by mouth every 8 hours. Active cetirizine (ZyrTEC) 10 mg tablet Take 1 tablet (10 mg) by mouth once daily. Active Oysco 500/D 500 mg-5 mcg (200 unit) tablet Take 1 tablet by mouth every 12 hours. 4 Active Esgic 50-325-40 mg tablet Take 1 tablet by mouth every 4 hours if needed. Active metoprolol tartrate (Lopressor) 25 mg tabletIndications:P ostural dizziness with near syncope Take 1 tablet (25 mg) by mouth 2 times daily (morning and late afternoon). 180 tablet 3 04/13/2025 8:29 PM EDT Active midodrine (Proamatine) 2.5 mg tabletIndications:P ostural dizziness with near syncope Take 1 tablet (2.5 mg) by mouth 3 times daily (morning, midday, late afternoon). 90 tablet 3 04/13/2025 8:29 PM EDT 5 02/27/20 26 Active Active Problems Problem Noted Date Diagnosed Date Lumbosacral spondylosis without myelopathy 01/31 Lumbar spondylosis 06/30/2022 Spinal stenosis of lumbar re gion without neurogenic claudication 06/30/2022 Degenerative lumbar disc 12/10/2021 Encounters Date Type Department Care Team Description 02/26/2025 Refill [facility] [address] [address] Latanya Bhatia RN Postural dizziness with near syncope from Last 3 Months Social History Tobacco Use Types Packs/Day Years Used Date Smoking Tobacco: Never Smokeless Tobacco: Never Tobacco Cessation:Counseling Given: Not Answered Alcohol Use Standard Drinks/Week Comments Never 0 (1 standard drink = 0.6 oz pur e alcohol) Comments Unknown Sex and Gender Information Value Date Recorded Sex Assigned at Not on file Legal Sex Female 5:04 PM EST Gender Identity Not on file Sexual Orientation Not on file Last Filed Vital Signs Vital Sign Reading Time Taken Comments Blood Pressure 118/74 11/30/2024 12:26 PM EDT Pulse 70 11/30/2024 12:26 PM EDT Temperature - - Respiratory Rate - - Oxygen Saturation 97% 11/16/2024 11:01 AM EDT Inhaled Oxygen Concentration - - Weight 115 kg (252 lb 9.6 oz) 11/30/2024 12:26 P M EDT Height 157.5 cm (5' 2 ) 11/30/2024 12:26 PM EDT Body Mass Index 46.2 11/30/2024 12:26 PM EDT Plan of Treatment Upcoming Encounters Date Type Department Care Team (Late st Contact Info) Description 05/31/2025 1:15 PM EDT Office Visit [facility] Building [address] [facility] [address] [place] [phone] [place] [id number] [facility] [address] [place], [place] [id number] Health Maintenance Due Date Last Done Comments CT Colonography 1971 Colonoscopy 1971 Colorectal Cancer Screening 1971 FIT-DNA (Cologuard) 1971 FIT 1971 HIV Screening 1971 Lipid Panel 1971 Sigmoidoscopy 1971 Welcome to Medicare Visit 1971 MMR Vaccines (1 of 1 - Standard series) 11/11/1972 Diabetes Screening 11/11/1989 Hepatitis C Screening 11/11/1989 Hepatitis B Vaccines (1 of 3 - 19+ 3-dose series) 11/11/1990 Pneumococcal Vaccine (1 of 2 - PCV) 11/11/1990 Cervical Cancer Screening 11/11/1992 HPV/Cotest 11/11/1992 Pap Smear 11/11/1992 DTaP/Tdap/Td Vaccines (1 - Tdap) 11/11/1993 Zoster Vaccines (1 of 2) 11/11/2021 Mammogram 01/02/2024 01/01/2023, 01/01/2023, 01/01/2023 COVID-19 Vaccine (1 - 2023-2 5 season) 2024 Influenza Vaccine (#1) 2025 05/15/2021 HIB Vaccines Aged Out No longer eligi ble based on patient's age to complete this topic HPV Vaccines Aged Out No longer eligi ble based on patient's age to complete this topic Hepatitis A Vaccines Aged Out No long er eligible based on patient's age to complete this topic IPV Vaccines Aged Out No longer eligi ble based on patient's age to complete this topic Meningococcal Vaccine Aged Out No dread derrell eligible based on patient's age to complete this topic Rotavirus Vaccines Aged Out No longer eligible based on patient's age to complete this topic Insurance [facility] MEDICARE ASSURE MEDICAID [facility] MEDICARE ASSURE MEDICAID Care Teams Ham Clerk Relationship Specialty Start Date End Date Ellie Ingram, HIGH PRESSURE KETTLE OPERATOR-FOOTWEAR MACHINERY INSTRUCTOR [address] [place] [phone] PCP - General Family Medicine 07/18/24 Dileep Ceja MD [address] [address] Consulting Physician Cardiology 11/09/24
--- OUTSIDE RECORDS SUMMARY | 2025-04-19 14:10 | XMS_ITS | Clinical Summary ---
Author Organization [facility] Address [address] [place] [address] Care Team Providers Care Head Of Mathematics Name Role Phone Juan Jose Ellie REGALADO Unavailable [phone] Rancho Hernandez MD Primary Care Provider [phone] Allergies No known active allergies Medications midodrine (Proamatine) 2.5 MG tablet Take 2.5 mg by mouth in the morning and 2.5 mg in the evening and 2.5 mg before bedtime. Active DULoxetine (Cymbalta) [address] capsule Take 60 mg by mouth in the morning and 60 mg before bedtime. Do not crush or chew. Active hydrOXYzine HCl (Atarax) 50 MG tablet Take 50 mg by mouth every 8 (eight) hours if needed for itching Active cetirizine (ZyrTEC) 10 MG tablet Take 10 mg by mouth Daily Active butalbital-acet aminophen-caffe ine 50-325-40 MG tablet Take 1 tablet by mouth every 4 (four) hours if needed for headaches Active empagliflozin (Jardiance) 25 MG Take 25 mg by mouth Daily Active metoprolol tartrate (Lopressor) 25 MG tablet Take 25 mg by mouth in the morning and 25 mg before bedtime. Active Dulaglutide (Trulicity) 3 MG/0.5ML solution auto-injector Inject under the skin Active topiramate (Topamax) 25 MG tablet Take 25 mg by mouth in the morning and 25 mg before bedtime. Active pantoprazole (ProtoNix) 20 MG EC tablet Take 20 mg by mouth in the morning. Take before meals. Do not crush, chew, or split. Active tiZANidine (Zanaflex) 4 MG capsule Take 4 mg by mouth in the morning and 4 mg in the evening and 4 mg before bedtime. Active spironolactone (Aldactone) 25 MG tablet Take 25 mg by mouth Daily Active gabapentin (Neurontin) 400 MG capsule Take 400 mg by mouth in the morning and 400 mg in the evening and 400 mg before bedtime. Active fludrocortisone (Florinef) 0.1 MG tablet Take by mouth Active ondansetron (Zofran) 8 MG tablet Take 8 mg by mouth every 8 (eight) hours if needed for nausea or vomiting Active terbinafine (LamISIL) 250 MG tabletIndicatio ns:Onychomycosi s Take 1 tablet (250 mg) by mouth Daily 90 tablet 07/05/20 25 Active Active Problems No known active problems Encounters Date Type Department Care Team Description 04/19/2025 [facility] [address] [facility] 110 [place] [phone] Unallocated, Rae Wasserman MD 04/06/2025 Results [facility] [address] [place] [phone] Alexis Grace DPM ALT, AST 04/04/[address] [facility] [address] [place] [phone] Alexis Grace DPM 03/28/2025 2:30 PM EDT Office [facility] [address] [place] [address] Alexis Grace DPM Onychomycosis (Primary Dx); Right foot pain; Plantar wart; Left foot pain 03/28/[address] [facility] [address] [place] [address] Alexis Grace DPM 03/28/2025 Travel 03/27/2025 Travel 03/08/2025 Abstract [facility] [address] [place] [address] Unallocated, Rae Wasserman MD from Last 3 Months Immunizations Immunization Administration Dates Next Due Influenza, Unspecified 05/15/2021 Social History Tobacco Use Types Packs/Day Years Used Date Smoking Tobacco: Never Assessed Comments Unknown Sex and Gender Information Value Date Recorded Sex Assigned at Not on file Legal Sex Female 11:06 PM EDT Gender Identity Not on file Sexual Orientation Not on file Last Filed Vital Signs Vital Sign Reading Time Taken Comments Blood Pressure 146/84 08/09/2024 3:27 PM EST Pulse 85 08/09/2024 3:27 PM EST Temperature - - Respiratory Rate - - Oxygen Saturation 95% 08/09/2024 3:27 PM EST Inhaled Oxygen Concentration - - Weight 122 kg (268 lb) 03/28/2025 2:42 PM EDT Height - - Body Mass Index - - Plan of Treatment Upcoming Encounters Date Type Department Care Team (Late st Contact Info) Description 05/02/2025 3:00 PM EDT Office Visit [facility] [address] [place] [phone] Alexis Grace DPJsoe L [address] [place], [place] [phone] 05/08/2025 10:00 AM EDT Office Visit [facility] [address] [facility] 110 [place] [address] Anamika Gunter, FABRICIO [address] [facility] [address] [place] [address] Health Maintenance Due Date Last Done Comments CT Colonography 1971 Colonoscopy 1971 Colorectal Cancer Screening 1971 FIT-DNA 1971 FIT 1971 FOBT 1971 Sigmoidoscopy 1971 Pap Smear 11/11/1992 Cervical Cancer Screening 11/11/2001 HPV/Cotest 11/11/2001 Mammogram 01/02/2024 01/01/2023 Influenza Vaccine (#1) 2025 05/15/2021 Procedures Procedure Name Priority Date/Time Associated Diagnosis Comments AST Routine 04/05/2025 3:08 PM EDT Onychomycosis ALT Routine 04/05/2025 3:08 PM EDT Onychomycosis from Last 3 Months Results * ALT (04/05/2025 3:08 PM EDT) ALT 21 6 - 29 U/L [facility] Blood Venous blood specimen / Unknown 04/05/2025 3:08 PM EDT 04/05/2025 3:08 PM EDT Narrative Resulting Agency Comment Performing Organization Information Site ID: [id number] Name: [facility] Address: [address] [place] [address], [address] [place], [place] [id number] Director: Herb Andujar MD us Alexis Grace DPM LAB BLOOD ORDERABLES Final Result Performing Organization Address [facility] Co de Phone Number [facility] * AST (04/05/2025 3:08 PM EDT) AST 18 10 - 35 U/L [facility] Blood Venous blood specimen / Unknown 04/05/2025 3:08 PM EDT 04/05/2025 3:08 PM EDT Narrative Resulting Agency Comment Performing Organization Information Site ID: QPT Name: [facility] Address: [address] [place] [address], [address] [place] [id number] Director: Herb Andujar MD us Alexis Grace DPM LAB BLOOD ORDERABLES Final Result Performing Organization Address [facility]/ZIP Co de Phone Number [facility] from Last 3 Months Insurance MEDICARE [employer] MEDICARE ADVANTAGE MEDICAID [place] Care Teams Head Of Mathematics Relationship Specialty Start Date End Date Rancho Hernandez MD [address] [place] [address] PCP - General Family Medicine 03/16/25 Ellie Ingram NP [facility] [place] [address] Referring Physician 07/18/24
--- OUTSIDE RECORDS SUMMARY | 2025-04-19 14:10 | XMS_ITS | Encounter Summary ---
Author Organization [facility] Address [address] [place] [address] Phone Care Team Providers Care Heavy Forging Machine Operator Name Role Phone Juan JoseEllie Pili MASTER FIRE CONTROL TECHNICIAN-MACHINE DYER Primary Care Provider Dileep Ceja MD Unavailable Encounter Details Date Type Department Care Team (Late Contact Info) Description 07/17/2024 Scanned Document [address] [place] [address] Dileep Ceja MD [address] [place] [address] [address], [address] [place], [place] [phone] Social History Tobacco Use Types Packs/Day Years [...] Description 05/31/2025 1:15 PM EDT Office Visit [facility] Building [address] [place] [address] [address] [place] [phone] Dileep Ceja MD [address] [place] [address] [address], [address] [place], [place] [phone] documented as of this encounter Visit Diagnoses Not on filedocumented in this encounter Care Teams Heavy Forging Machine Operator Relationship Specialty Start Date End Date Ellie Ingram, MASTER FIRE CONTROL TECHNICIAN-MACHINE DYER [address] [place] [address] PCP - General Family Medicine 07/18/24 Dileep Ceja MD [address] [address] Consulting Physician Cardiology 11/09/24 documented as of this encounter
--- OUTSIDE RECORDS SUMMARY | 2025-04-19 14:10 | XMS_ITS | Encounter Summary ---
Author Organization [facility] Address [address] [place] [address] Care Team Providers Care Production Expediter Name Role Phone Ellie Ingram NP Unavailable [phone] Rancho Hernandez MD Primary Care Provider Encounter Details Date Type Department Care Team (Late st Contact Info) Description 04/06/2025 Results Follow-Up [facility] [address] [place] [phone] Alexis Grace DPM [address] [place], [place] [phone] ALT, AST Social History Tobacco Use Types Packs/Day Years Used Date Smoking Tobacco: Never Assessed Comments Unknown Sex and Gender Information Value Date Recorded Sex Assigned at Not on file Legal Sex Female 11:06 PM EDT Gender Identity Not on file Sexual Orientation Not on file documented as of this encounter Miscellaneous Notes * Telephone Encounter - Alexis Grace DPM - 04/06/2025 10:33 AM EDT Liver enzyme tests reviewed and within normal limits. Lamisil prescription sent to her pharmacy. Thank you. documented in this encounter Plan of Treatment Upcoming Encounters Date Type Department Care Team (Late st Contact Info) Description 05/02/2025 3:00 PM EDT Office Visit [facility] [address] [place] [phone] Alexis Grace, DPM [address] [place], [place] [phone] 05/08/2025 10:00 AM EDT [facility] [address] [facility] 110 [place] [phone] Anamika Gunter, DIRECTOR OF CASEWORK SERVICES [address] [facility] 110 [place] [address] documented as of this encounter Visit Diagnoses Diagnosis Onychomycosis- Primary Dermatophytosis of nail documented in this encounter Care Teams Production Expediter Relationship Specialty Start Date End Date Rancho Hernandez MD [facility] [place] [address] PCP - General Family Medicine 03/16/25 Ellie Ingram NP [address] [place] [address] Referring Physician 07/18/24 documented as of this encounter
--- OUTSIDE RECORDS SUMMARY | 2025-04-19 14:10 | XMS_ITS | Encounter Summary ---
Author Organization [facility] Address [address] [place] [address] [place] [address] Care Team Providers Care Polymerization Oven Tender Name Role Phone Juan Jose Ellie REGALADO Unavailable [phone] Rancho Hernandez MD Primary Care Provider Encounter Details Date Type Department Care Team (Late st Contact Info) Description 04/19/2025 Abstract [facility] [address] [place] [place] [address] Unallocated, Noms Provider, [address] [place], [place] [phone] Social History Tobacco Use Types Packs/Day Years [...] 05/02/2025 3:00 PM EDT Office Visit [facility] [address] [place] [address] Alexis Grace DPM [address] [place], [place] [phone] 05/08/2025 10:00 AM EDT Office Visit [facility] [address] [place] [place] [address] Anamika Gunter NP [address] [place] [address] documented as of this encounter Visit Diagnoses Not on filedocumented in this encounter Care Teams Polymerization Oven Tender Relationship Specialty Start Date End Date Rancho Hernandez MD [address] [place] [address] PCP - General Family Medicine 03/16/25 Ellie Ingram NP [address] [place] [address] Referring Physician 07/18/24 documented as of this encounter
--- OUTSIDE RECORDS SUMMARY | 2025-04-19 14:10 | XMS_ITS | Encounter Summary ---
Author Organization [facility] Address [address] [place] [address] Care Team Providers Care Shipping Lead Name Role Phone Juan Jose Ellie REGALADO Unavailable [phone] Rancho Hernandez MD Primary Care Provider [phone] Encounter Details Date Type Department Care Team (Late st Contact Info) Description 11/10/2023 Orders Only [facility] [address] [place] [address] Ned Wilburn MD [address] [place] [address] Social History Tobacco Use Types Packs/Day Years [...] Description 05/02/2025 3:00 PM EDT Office Visit [facility] [address] [place] [phone] Alexis Grace DPM [address] [place] [id number] 05/08/2025 10:00 AM EDT Office Visit [facility] [address] [place] [address] Anamika Gunter NP [address] [place], [place] [phone] documented as of this encounter Procedures Procedure Name Priority Date/Time Associated Diagnosis Comments CARD HOLTER MONITOR RECORDING Routine 10/22/2023 8:10 AM EST documented in this encounter Results * CARD HOLTER MONITOR RECORDING (10/22/2023 8:10 AM EST) Anatomical Region Laterality Modality Radiographic Sujatha ging Ned Wilburn MD IMG XR PROCEDURES Final Result documented in this encounter Visit Diagnoses Not on filedocumented in this encounter Care Teams Shipping Lead Relationship Specialty Start Date End Date Rancho Hernandez MD [address] [place] [address] PCP - General Family Medicine 03/16/25 Ellie Ingram NP [address] [place] [address] Referring Physician 07/18/24 documented as of this encounter
--- OUTSIDE RECORDS SUMMARY | 2025-04-19 14:10 | XMS_ITS | Clinical Summary ---
Author Organization [employer] tem Address [id number] [address] [place] [address] Care Team Providers Care Collar Cutter Name Role Phone Ellie Ingram APRN-BLOCK CABLEMAN Primary Care Provide r Allergies No known active allergies Medications lisinopriL (PRINIVIL,ZESTRIL) 20 mg tablet Take 1 tablet (20 mg total) by mouth in the morning. Active gabapentin (NEURONTIN) 300 mg capsule Take 1 capsule (300 mg total) by mouth 3 (three) times a day. Active amitriptyline (ELAVIL) 25 mg tablet Take 1 tablet (25 mg total) by mouth nightly. 4 Active ESGIC 50-325-40 mg per tablet Take 1 tablet by mouth every 4 (four) hours as needed for migraine. Active cetirizine (ZyrTEC) 10 mg tablet Take 1 tablet (10 mg total) by mouth in the morning. 4 Active TRULICITY 3 mg/0.5 mL pen injector Inject 1 mg under the skin once a week. 4 Active DULoxetine (CYMBALTA) 60 mg capsule Take 1 capsule (60 mg total) by mouth in the morning and 1 capsule (60 mg total) before bedtime. 4 Active JARDIANCE 10 mg tablet tablet Take 1 tablet (10 mg total) by mouth in the morning. 4 Active fludrocortisone (FLORINEF) 0.1 mg tablet Take 1 tablet (0.1 mg total) by mouth in the morning. 4 Active hydrOXYzine (ATARAX) 50 mg tablet Take 1 tablet (50 mg total) by mouth every 8 (eight) hours as needed. 4 Active metoprolol tartrate (LOPRESSOR) 25 mg tablet Take 1 tablet (25 mg total) by mouth in the morning and 1 tablet (25 mg total) before bedtime. 4 Active ondansetron ODT (ZOFRAN ODT) 4 mg disintegrating tablet Dissolve 1 tablet (4 mg total) on tongue 3 (three) times a day. 4 Active pantoprazole (PROTONIX) 20 mg EC tablet Take 1 tablet (20 mg total) by mouth every morning before breakfast. 4 Active spironolactone (ALDACTONE) 100 mg tablet Take 1 tablet (100 mg total) by mouth in the morning. 4 Active tiZANidine (ZANAFLEX) 4 mg tablet Take 1 tablet (4 mg total) by mouth every 8 (eight) hours as needed. 4 Active topiramate (TOPAMAX) 25 mg tablet Take 1 tablet (25 mg total) by mouth in the morning. 4 Active Active Problems Problem Noted Date Diagnosed Date Degenerative lumbar disc 12/10/2021 BMI 45.0-49.9, adult 12/10/2021 Overview (12/10/2021): Discussed BMI at well woman visit Family History Medical History Relation Name Comments Hypertension Father Diabetes Maternal Grandfather Heart failure Maternal Grandfather Diabetes Maternal Grandmother Pancreatic cancer Maternal Grandmother Hypertension Mother Lung cancer Mother Diabetes Paternal Grandfather Diabetes Paternal Grandmother Breast cancer Neg Hx Relation Name Status Comments Father Alive Maternal Grandfather Maternal Grandmother Mother Paternal Grandfather Paternal Grandmother Social History Tobacco Use Types Packs/Day Years Used Date Smoking Tobacco: Never Smokeless Tobacco: Never Tobacco Cessation:Counseling Given: Not Answered Alcohol Use Standard Drinks/Week Comments Yes 0 [...] got money to buy more. Never True 09/22/2024 Within the past 12 months th e food we bought just didn't last and we didn't have money to get more. Never True 09/22/2024 Purpose - Life Answer Date Recorded Purpose and direction in life Unknown Comments No Sex and Gender Information Value Date Recorded Sex Assigned at Not on file Legal Sex Female 1:58 PM EDT Gender Identity Not on file Sexual Orientation Not on file Last Filed Vital Signs Vital Sign Reading Time Taken Comments Blood Pressure 130/74 09/23/2024 2:35 AM EST Pulse 74 09/23/2024 2:06 AM EST Temperature 36.4 C (97.5 F) 09/22/2024 10:35 PM EST Respiratory Rate 16 09/23/2024 1:05 AM EST Oxygen Saturation 100% 09/23/2024 2:35 AM EST Inhaled Oxygen Concentration - - Weight 115.7 kg (255 lb) 09/22/2024 10:35 PM EST Height 157.5 cm (5' 2 ) 09/22/2024 10:35 PM EST Body Mass Index 46.64 09/22/2024 10:35 PM EST Plan of Treatment Health Maintenance Due Date Last Done Comments DTaP,Tdap and Td Vaccines (1 - Tdap) 11/11/1990 Zoster (Shingles) Vaccine (1 of 2) 11/11/2021 Pap Smear 11/27/2023 11/26/2020, 11/26/2020 Mammogram 01/02/2024 01/01/2023 COVID-19 Vaccine ( - season) 04/30/202403/2021, 05/15/2021 Adult BMI Follow Up Plan 01/18/2025 01/19/2024 Depression Screening 01/18/2025 01/19/2024 Influenza Vaccine 04/30/2025 05/15/2021 Adult BMI Screening 09/22/2025 09/22/2024 Tobacco Screening 09/22/2025 09/22/2024 Medical Devices Not on file Procedures Procedure Name Priority Date/Time Associated Diagnosis Comments MAMM SCREENING BILATERAL W CAD Routine 01/01/2023 11:08 AM EDT Encounter for screening mammogram for breast cancer PAP SMEAR Routine 11/26/2020 10:42 AM EDT Encounter for surveillance of injectable contraceptive from Last 3 Months or Most Recently Relevant to Health Maintenance Results * Mammography screening bilateral with CAD (01/01/2023 11:08 AM EDT) Anatomical Region Laterality Modality Breast Bilateral Mammography 01/01/2023 11:0 8 AM EDT Narrative 01/01/2023 11:09 AM EDT MAMM SCREENING BILATERAL W CAD WITH TOMOSYNTHESIS HISTORY: Screening. COMPARISON: None FINDINGS: There are scattered areas of fibroglandular density. Negative for malignancy. Computer-aided detection was used in the interpretation of this examination. IMPRESSION: BIRADS 1 - Negative. Normal interval follow-up in 12 months. OVERALL ASSESSMENT- NEGATIVE. A letter of notification will be sent to the patient regarding the results. Finalized by Ray Balderas MD on 01/01/2023 11:09 AM 1 b MAMM 1 YR Procedure Note Ray Balderas MD - 01/01/2023 MAMM SCREENING BILATERAL W CAD WITH TOMOSYNTHESIS HISTORY: Screening. COMPARISON: None FINDINGS: There are scattered areas of fibroglandular density. Negativefor malignancy. Computer-aided detection was used in the interpretation of thisexamination. IMPRESSION: BIRADS 1 - Negative. Normal interval follow-up in 12 months. OVERALL ASSESSMENT- NEGATIVE. A letter of notification will be sent to the patient regarding theresults. Finalized by Ray Balderas MD on 01/01/2023 11:09 AM 1 b MAMM 1 YR Naima Macedo ECONOMICS TEACHER-DEPARTMENTAL SECRETARY IMG MAMMOGRAPHY ORDERABL ES Final Result * Pap Smear (11/26/2020 10:42 AM EDT) 11/26/2020 10:4 2 AM EDT 11/27/2020 10:43 AM EDT Narrative COPATH - 11/28/2020 2:38 PM EDT [facility] [address] [place] [address] Gynecologic Cytology Consultation Patient Name: MARIANA VIDAL : 1970 (Age: 50) Gender: F Taken: 11/26/2020 Reported: 11/28/2020 Physician(s): YAQUELIN DAVIS C.N.M. ([phone]) Copy To: [facility] Rec. #: [id number] Acct: # [id number] Final Cytologic Interpretation ThinPrep Pap Test (Cervical): Satisfactory for evaluation. A transformation zone component is present. NEGATIVE FOR INTRAEPITHELIAL LESION OR MALIGNANCY. [facility] [place] Interpretation performed at [facility], [address] [place] [address], License number: [id number]. Electronically Signed Out By JEANNE Rangel(ASCP) Date of Last Menstrual Period: (None Given) Other Clinical Conditions: Z30.42 Encounter for surveillance of injectable contraceptive Depo-Provera Source of Specimen ThinPrep Pap Test (Cervical) Thin Prep Pap (TUBE BENDING MACHINE OPERATOR) Fee Code(s): G0145 The Pap test is a screening test with an inherent, but low, probability of error. The Pap test is primarily effective for the diagnosis and prevention of squamous cell carcinoma. Regular screening is critical for prevention. ThinPrep liquid-based slides, which meet the Senior Estimator criteria for automated screening, have been screened by the ThinPrep Imaging System (as of 05/16/07) along with an additional manual rescreening by a inspector receiving and, if indicated, by a pathologist. Yaquelin Davis ECONOMICS TEACHER-CN PATHOLOGY/CYTOLOGY ORD ERABLES Final Result COPATH from Last 3 Months or Most Recently Relevant to Health Maintenance Insurance MEDICAID [place] AETNA MEDICARE Care Teams Collar Cutter Relationship Specialty Start Date End Date Ellie Ingram APRN-FNP [facility] [place] [address] PCP - General Family Medicine 09/22/24
--- OUTSIDE RECORDS SUMMARY | 2025-04-19 14:11 | XMS_ITS | Clinical Summary ---
Author Organization [facility] Address [address], [address] [place] [address] Care Team Providers Care Integrated Logistics Operations Manager Name Role Phone Ellie Ingram APRN - FABRICIO Primary Care Provid er Allergies No known active allergies Medications traMADol (ULTRAM) 50 MG tablet Take by mouth. 07/30/20 22 Active cetirizine (ZYRTEC) 10 MG tablet Take by mouth 07/30/20 22 Active pantoprazole (PROTONIX) 20 MG tablet Take 1 tablet by mouth daily Active spironolactone (ALDACTONE) 100 MG tablet Take 1 tablet by mouth daily Active XANAX 0.5 MG tablet Take 1 tablet by mouth in the morning and at bedtime. 09/07/19 24 Active hydrOXYzine HCl (ATARAX) 50 MG tablet 1 or 2 three times a day as needed for sleep or anxiety Orally as directed for 30 days Active SYMBICORT 160-4.5 MCG/ACT AERO Inhale 1 puff into the lungs in the morning and at bedtime Active lisinopril (PRINIVIL;ZESTRIL) 20 MG tablet Take 1 tablet by mouth daily Active diclofenac Sodium 1.5 % SOLN 40 drops Externally Four times a day for 14 days 08/03/20 23 Active diclofenac (VOLTAREN) 75 MG EC tablet Take by mouth Active VICTOZA 18 MG/3ML SOPN SC injection Inject into the skin 09/30/19 23 Active albuterol sulfate HFA (PROVENTIL;VENTOLI N;PROAIR) 108 (90 Base) MCG/ACT inhaler INHALE 2 PUFFS BY MOUTH EVERY 4-6 HOURS FOR 14 DAYS for 14 Active gabapentin (NEURONTIN) 600 MG tablet Take 0.5 tablets by mouth in the morning, at noon, in the evening, and at bedtime. Active metFORMIN (GLUCOPHAGE-XR) 500 MG extended release tablet TAKE 1 TABLET BY MOUTH WITH FOOD TWICE DAILY Active DULoxetine (CYMBALTA) 60 MG extended release capsule Take 1 capsule by mouth 2 times daily Active amitriptyline (ELAVIL) 75 MG tablet Take 25 mg by mouth nightly at bedtime. Active lidocaine (LMX) 4 % creamIndications:L umbar radiculopathy Apply a half dollar sized amount to intact skin topically up to twice daily as needed for pain 45 g 1 10/01/19 24 Active meloxicam (MOBIC) 7.5 MG tabletIndications: Lumbar radiculopathy Take 1 tablet by mouth daily Take with food, avoid other NSAIDs (Ibuprofen) and steroids 30 tablet 10/01/19 24 Active fludrocortisone (FLORINEF) 0.1 MG tablet Take 1 tablet by mouth daily 10/15/19 24 Active tiZANidine (ZANAFLEX) 4 MG tablet Take 1 tablet by mouth 3 times daily as needed 10/20/19 24 Active TRULICITY 3 MG/0.5ML SOPN INJECT 3 (THREE) mg SUBCUTANEOUSLY ONCE A WEEK 10/25/19 24 Active ondansetron (ZOFRAN-ODT) 4 MG disintegrating tablet DISSOLVE 1 (ONE) TABLET ON THE TONGUE EVERY 8 HOURS 10/26/19 24 Active ESGIC 50-325-40 MG per tablet 1 tablet as needed Orally every 4 hrs Active topiramate (TOPAMAX) 100 MG tabletIndications: Lumbosacral spondylosis without myelopathy,Spinal stenosis of lumbar region with neurogenic claudication Take 1 tablet by mouth nightly 30 tablet 05/22/20 24 Active Active Problems Problem Noted Date Diagnosed Date Lumbosacral spondylosis without myelopathy 01/31 Class 3 severe obesity due t o excess calories without serious comorbidity with body mass index (BMI) of 40.0 to 44.9 in adult 06/30/2022 Lumbar spondylosis 06/30/2022 Spinal stenosis of lumbar re gion without neurogenic claudication 06/30/2022 Social History Tobacco Use Types Packs/Day Years Used Date Smoking Tobacco: Never Passive Smoke Exposure: Never Smokeless Tobacco: Never Tobacco Cessation:Counseling Given: No Comments Unknown Sex and Gender Information Value Date Recorded Sex Assigned at Not on file Legal Sex Female 9:54 PM EST Gender Identity Not on file Sexual Orientation Not on file Last Filed Vital Signs Vital Sign Reading Time Taken Comments Blood Pressure 124/74 05/22/2024 10:49 AM EDT Pulse 75 03/21/2024 10:15 AM EDT Temperature 36.1 C (97 F) 05/22/2024 10:49 AM EDT Respiratory Rate - - Oxygen Saturation 100% 03/21/2024 10:15 AM EDT Inhaled Oxygen Concentration - - Weight 117.9 kg (260 lb) 05/22/2024 10:49 AM EDT Height 157.5 cm (5' 2 ) 05/22/2024 10:49 AM EDT Body Mass Index 47.55 05/22/2024 10:49 AM EDT Plan of Treatment Health Maintenance Due Date Last Done Comments Depression Screen 1983 HIV screen 11/11/1986 Hepatitis C screen 11/11/1989 DTaP/Tdap/Td vaccine (1 - Tdap) 11/11/1990 Hepatitis B vaccine (1 of 3 - 19+ 3-dose series) 11/11/1990 Pap smear 11/11/1992 Cervical cancer screen 11/11/2001 HPV (without or with Pap) 11/11/2001 Diabetes screen 11/11/2006 Lipids 2011 Colonoscopy 11/11/2016 Colorectal Cancer Screen 11/11/2016 FIT/FOBT: Average risk 11/11/2016 Fecal-DNA (Cologuard): [place] ge risk 11/11/2016 Sigmoidoscopy/CT colonography 11/11/2016 Pneumococcal 50+ years Vacci ne (1 of 1 - PCV) 11/11/2021 Shingles vaccine (1 of 2) 11/11/2021 COVID-19 Vaccine ( - 2023-2 5 season) 2024 06/06/2021, 05/15/2021 Breast cancer screen 01/01/2025 01/01/2023 Flu vaccine (#1) 03/30/2025 05/15/2021 Hepatitis A vaccine Aged Out No longe r eligible based on patient's age to complete this topic Hib vaccine Aged Out No longer eligi ble based on patient's age to complete this topic Meningococcal (ACWY) vaccine Aged Out No longer eligible based on patient's age to complete this topic Meningococcal B vaccine Aged Out No l onger eligible based on patient's age to complete this topic Polio vaccine Aged Out No longer elig ible based on patient's age to complete this topic Insurance Care Teams Integrated Logistics Operations Manager Relationship Specialty Start Date End Date Ellie Ingram APRN - NP [address] [place] [address] PCP - General 03/26/22
--- OUTSIDE RECORDS SUMMARY | 2025-04-19 14:24 | XMS_ITS | CCD ---
Author Organization [facility] Inform ion Partnership [facility] CliniSyoh Care Team Providers Care Row Boss Name Role Phone EDIE SINGH Referring Unavailable EDIE SINGH Primary Care Unavailable Edie Singh Primary Care Provider [phone] Edie Singh Unavailable Edie Singh Unavailable Pop Blandon Unavailable Ellie Ingram Unavailable NON STAFF Primary Care Provider UnavailDO Reinaldo Gutierrez Emergency Provider LUCY Ingram Primary Care Provider LUCY Ingram Attending Provider [phone] SOBEIDA Ingram-Ruperto Argueta Primary Care Provider SOBEIDA Ingram-C Ellie Attending Provider DO Edie Bolton Emergency Provider RadhamiSusana Jeong Unavailable Danya Carty Unavailable Serene Bustos Unavailable AGUSTO Ellis Attending Provider ELLIE INGRAM Consulting Unavailable JUAN JOSE, ELLIE Primary Care Unavailable JUAN JOSE, ELLIE Admitting Unavailable JUAN JOSE, ELLIE Attending Unavailable JUAN JOSE, ELLIE Primary Care Unavailable JUAN JOSE, ELLIE Admitting Unavailable JUAN JOSE, ELLIE Attending Unavailable JUAN JOSE, ELLIE Consulting Unavailable JUAN JOSE, ELLIE Consulting Unavailable JUAN JOSE, ELLIE Primary Care Unavailable JUAN JOSE, ELLIE Admitting Unavailable JUAN JOSE, ELLIE Attending Unavailable Dario Olmedo Unavailable LUCY Ingram Primary Care Provider LUCY Ingram Attending Provider DO Edie Bolton Emergency Provider AGUSTO Sung Attending Provider BROOKLYNN Carty Referring Provider MD Dario Olmedo Attending Provider Clive Marino Unavailable LUCY Ingram Primary Care Provider LUCY Ingram Attending Provider [phone] Kera Mccall Unavailable LUCY Ingram Primary Care Provider U DO Dario Espino Attending Provider [phone] MD Dario Olmedo Attending Provider [phone] NON STAFF Primary Care Provider Unavailabl e Dario Palacios Admitting Unavailab Dario Faria Attending Unavailab le Ellie Ingram Primary Care Unavailable Dario Olmedo Admitting Unavaila ble HonorioDario browning Attending Unavaila ble NON STAFF Primary Care Unavailable Juan oJse, Ellie Admitting Unavailable Juan Jose, Ellie Attending Unavailable Juan Jose, Ellie Primary Care Unavailable Dario Olmedo Admitting Unavaila ble HonorioDario shin Attending Unavaila ble Juan Jose, Ellie Primary Care Unavailable JUAN JOSE, ELLIE Attending Unavailable JUAN JOSE, ELLIE Admitting Unavailable JUAN JOSE, ELLIE Attending Unavailable JUAN JOSE, ELLIE Admitting Unavailable JUAN JOSE, ELLIE Admitting Unavailable JUAN JOSE, ELLIE Attending Unavailable JUAN JOSE, ELLIE Admitting Unavailable JUAN JOSE, ELLIE Attending Unavailable JUAN JOSE, ELLIE Attending Unavailable JUAN JOSE, ELLIE Admitting Unavailable JUAN JOSE, ELLIE Admitting Unavailable JUAN JOSE, ELLIE Attending Unavailable JUAN JOSE, ELLIE Primary Care Unavailable GALDINOLJOSEFINA Referring Unavailable DONOVAN, SUNJAY Referring Unavailable JUAN JOSEELLIE MOHR Primary Care Unavailable DONOVAN, SUNJAY Referring Unavailable JUAN JOSEELLIE MOHR Primary Care Unavailable JUAN JOSE, ELLIE Primary Care Unavailable DONOVAN, SUNJAY Referring Unavailable DONOVAN, SUNJAY Referring Unavailable JUAN JOSE, ELLIE Primary Care Unavailable JUAN JOSE, ALYSON Kwan Attending Unavail able JUAN JOSE, ALYSON Kwan Admitting Unavail able JUAN JOSE, ALYSON Kwan Attending Unavail able JUAN JOSE, ALYSON Kwan Admitting Unavail able JUAN JOSE, ELLIE Admitting Unavailable JUAN JOSEELLIE MOHR Attending Unavailable ELLIE INGRAM Admitting Unavailable ELLIE INGRAM Attending Unavailable JUAN JOSE, ALYSON Kwan Admitting Unavail able JUAN JOSE, ALYSON Kwan Attending Unavail able Unallocated MD, Noms Provider Primary Care Provi yogi Juan Jose AUDIENCE DEVELOPMENT MANAGEREllie Unavailable Juan Jose SHOW HOST OR HOSTESS-MACHINE ROOM ENGINEER, Ellie [facility] Primary Care Provider Juan Jose SHOW HOST OR HOSTESS - AUDIENCE DEVELOPMENT MANAGER, Ellie [facility] Care Provid er Unavailable Primary Care Provider Unavailabl e ELLIE INGRAM Primary Care Physician [phone] ELLIE INGRAM Primary Care Unavailable ELLIE INGRAM Primary Care Unavailable NKANSAH-AMANKRA, YESENIA Referring Unavail able NKANSAH-AMANKRA, YESENIA Attending Unavail able NKANSAH-AMANKRA, YESENIA Admitting Unavail able ELLIE INGRAM Primary Care Unavailable NKANSAH-AMANKRA, YESENIA Attending Unavail able ALYSON INGRAM Primary Care Unavail able NKANSAH-AMANKRA, YESENIA Admitting Unavail able NKANSAH-AMANKRA, YESENIA Attending Unavail able NKANSAH-AMANKRA, YESENIA Referring Unavail able ALYSON INGRAM Primary Care Unavail able NKANSAH-AMANKRA, YESENIA Admitting Unavail able NKANSAH-AMANKRA, YESENIA Attending Unavail able NKANSAH-AMANKRA, YESENIA Referring Unavail able NKANSAH-AMANKRA, YESENIA Admitting Unavail able NKANSAH-AMANKRA, YESENIA Attending Unavail able NKANSAH-AMANKRA, YESENIA Referring Unavail able JUAN JOSE [facility] Primary [facility] Unavailable JUAN JOSE, ELLIE Attending Unavailable JUAN JOSE, ELLIE Admitting Unavailable JUAN JOSE, [facility] Unavailable NKANSAH-AMANKRA, YESENIA Attending Unavail able JUAN JOSE, [facility] Primary [facility] Unavailable NKANSAH-AMANKRA, YESENIA Admitting Unavail able NKANSAH-AMANKRA, YESENIA Attending Unavail able NKANSAH-AMANKRA, YESENIA Referring Unavail able JUAN JOSE, [facility] Unavailable Juan Jose SHOW HOST OR HOSTESS-MACHINE ROOM ENGINEER, [facility] Primary [facility] Provider Martin Larios MD Unavailable MARTIN LARIOS Referring Unavailab le [facility] [place] [facility] Phys[facility] MARTIN LARIOS Attending Unavailab reggie [facility] MARTIN Albarran Referring Unavailab MARTIN Feliciano Attending Unavailab MARTIN Feliciano Referring Unavailab le JUAN JOSE, [facility] Unavai lable NKANSAH-AMANKRA, YESENIA Admitting Unavail able NKANSAH-AMANKRA, YESENIA Attending Unavail able NKANSAH-AMANKRA, YESENIA Referring Unavail able SOBEIDA INGRAM Admitting Unavai lable JUAN JOSE, SOBEIDA Meyers Attending Unanorii SOBEIDA Berry Primary Care Unavai lable JUAN JOSE, SOBEIDA Meyers Primary Care Mallory Cano Attending Unavailable Rancho Hernandez MD Primary Care Provider ALEXIS GRACE Attending Unavailable DARIO PALACIOS Attending Unavailable ELLIE INGRAM Referring Unavailable Allergies Allergy Classification Reported Allergen(s) Allergy Type Date of Onset Reaction(s) Facility (4 sources) No Known Medication Allergies; Translations: [No Known Medication Allergies] Propensity to adverse reactions (disorder) [facility] Repository Medications Current Medications Medication Drug Class(es) Dates Sig (Normalized) Sig (Original) acetaminophen 325 mg / butalbital 50 mg / caffeine 40 mg oral capsule (16 sources) Barbiturate, Central Nervous System Stimulant, Methylxanthine Start: 10-09-2024 take 1 capsule by mouth every four hours Esgic 325 mg-50 mg-40 mg oral capsule 1 cap(s), Oral, q4hr Headache, Refill(s) 0 Start Date: 10/09/24 Status: Ordered Repeat number: 1 take 1 tablet by more th every four hours as needed for headache begbubhjst-tubwrdiqxkcyq-ypgkfvsu 50-325 -40 MG tablet Take 1 tablet by mouth every 4 (four) hours if needed for headaches Active acetaminophen 300 mg / codeine phosphate 30 mg oral tablet (14 sources) Opioid Agonist Start: 10-29-2022 take 1 tablet by mouth every twelve hours Acetaminophen-Codeine 300-30 MG 1 tablet as needed Orally twice a day for 30 days Oct, Active [id number] 200 actuat albuterol 0.09 mg/actuat metered dose inhaler (20 sources) beta2-Adrene rgic Agonist Start: 04-16-2023 take 2 puff(s) by [...] every 4 hrs Sep, Active Start: 10-01-2022 take 2 puff(s) by in halation four times daily albuterol 90 mcg/actuation inhaler Inhale 2 puffs 4 times a day. Active albuterol sulfat e HFA (PROVENTIL;VENTOLIN;PROAIR) 108 (90 Base) MCG/ACT inhaler INHALE 2 PUFFS BY MOUTH EVERY 4-6 HOURS FOR 14 DAYS for 14 0 Active ALPRAZolam 0.25 mg oral tablet (4 sources) Benzodiazepine Start: 11-23-2023 End: 12-17-2024 take 1 tablet by mouth every twelve hours ALPRAZolam (Xanax) 0.25 mg tablet Take 1 tablet (0.25 mg) by mouth every 12 hours. 11/23/2023 12/17/2024 Discontinued (Med List Cleanup) Start: 09-07-2023 take 1 tablet by more th at bedtime XANAX 0.5 MG tablet Take 1 tablet by mouth in the morning and at bedtime. 0 09/07/2023 Active amitriptyline hydrochloride 25 mg oral tablet (20 sources) Tricyclic Antidepressant Start: 12-16-2023 take 1 tablet by mouth once daily amitriptyline (ELAVIL) 25 mg tablet Take 1 tablet (25 mg total) by mouth nightly. 12/16/2023 Active Start: 10-29-2022 take 1 tablet by more th every twenty-four hours Amitriptyline HCl 25 MG 1 tablet at bedtime Orally Once a day for 30 days Oct, Active Start: 10-29-2022 Amitriptyline HCl 25 MG 1 tablet twice a day Orally bid for 30 days Oct, Active End: 07-31-2024 amitriptyline (Elavil) 75 mg tablet Take 25 mg by mouth once daily at bedtime. 07/31/2024 Discontinued (Therapy completed) amoxicillin 875 mg oral tablet (5 sources) [...] source) Phosphate Binder, Calcium Calcium daily Active calcium carbonate 1250 mg / cholecalciferol 200 unt oral tablet (3 sources) Vitamin D Start: 06-19-2024 take 1 tablet by mouth every twelve hours Oysco 500/D 500 mg-5 mcg (200 unit) tablet Take 1 tablet by mouth every 12 hours. 06/19/2024 Active cefdinir 300 mg oral capsule (5 sources) Cephalosporin Antibacterial Start: 07-02-2022 take 1 capsule by mouth every twelve hours Cefdinir 300 MG 1 capsule Orally every 12 hrs for 7 days Jun, Active Start: 06-12-2021 take 1 capsule by mo ut every twelve hours Cefdinir 300 MG 1 capsule Orally every 12 hrs for 10 day(s) May, Active celecoxib 200 mg oral capsule (20 sources) Nonsteroidal Anti-inflammatory Drug Start: 01-19-2022 take 1 capsule by mouth every twenty-four hours CeleBREX 200 MG 1 capsule with food Orally Once a day for 30 day(s) December, Active cetirizine hydrochloride 10 mg oral capsule (20 sources) Histamine-1 Receptor Antagonist Start: 10-09-2024 cetirizine 10 mg oral capsule 10 mg = 1 cap(s), Oral, Daily, PRN for allergy symptoms, # 40 cap(s), Refills(s) 0 Start Date: 10/09/24 Status: Ordered Quantity: 40.0 Unit: cap(s) Repeat number: 1 Start: 07-30-2022 take 1 tablet by more th in the morning cetirizine (ZyrTEC) 10 mg tablet Take 1 tablet (10 mg total) by mouth in the morning. 12/19/2023 Active cyclobenzaprine hydrochloride 10 mg oral tablet (18 sources) Muscle Relaxant Start: 09-02-2023 End: 12-17-2024 take 1 tablet by mouth three times daily cyclobenzaprine (Flexeril) 10 mg tablet Take 1 tablet (10 mg) by mouth 3 times a day. 09/02/2023 12/17/2024 Discontinued (Med List Cleanup) Start: 08-11-2021 take 1 tablet by more th every twenty-four hours Cyclobenzaprine HCl 10 MG 1 tablet at bedtime as needed Orally Once a day for 30 day(s) Jul, Not-Taking diclofenac sodium 15 mg/ml topical solution (7 sources) Nonsteroidal Anti-inflammatory Drug Start: 08-03-2023 diclofenac Sodium 1.5 % SOLN 40 drops Externally Four times a day for 14 days 0 08/03/2023 Active diclofenac (VOLT AREN) 75 MG EC tablet Take by mouth 0 Active doxycycline monohydrate 100 mg oral capsule (6 sources) Tetracycline-class Drug Start: 05-21-2022 take 1 capsule by mouth every twelve hours Doxycycline Monohydrate 100 MG 1 capsule Orally every 12 hrs for 10 days Apr, Active 0.5 ML dulaglutide 6 MG/ML Auto-Injector [Trulicity] (8 sources) GLP-1 Receptor Agonist Start: 10-09-2024 inject 3 mg by subcutaneous injection every week Trulicity Pen 3 mg/0.5 mL subcutaneous solution 3 mg, SubCutaneous, qWeek, weight loss, Refills(s) 0, Other (see comment) Start Date: 10/09/24 Status: Ordered Repeat number: 1 Start: 10-09-2024 inject 3 mg by subcu taneous injection every week Trulicity Pen 3 mg/0.5 mL subcutaneous solution 3 mg, SubCutaneous, qWeek, weight loss, Refills(s) 0, Other (see comment) Start Date: 10/09/24 Status: Ordered Start: 10-09-2024 Trulicity Pen 3 mg/0.5 mL subcutaneous solution Refills(s) 0 Start Date: 10/09/24 Status: Ordered Start: 10-25-2023 inject 4 mg by subcu taneous injection every week dulaglutide (TRULICITY SUBQ) Inject 4 mg under the skin 1 (one) time per week. 10/25/2023 Active Start: 10-25-2023 inject 3 mg by subcu taneous injection every week dulaglutide (TRULICITY SUBQ) INJECT 3 (THREE) mg SUBCUTANEOUSLY ONCE A WEEK 10/25/2023 Active Dulaglutide (Trulicity) 3 MG/0.5ML solution auto-injector (6 sources) Dulaglutide (Trulicity) 3 MG/0.5ML solution auto-injector Inject under the skin Active DULoxetine 60 mg delayed release oral capsule (20 sources) Serotonin and Norepinephrine Reuptake Inhibitor Start: 12-16-19 take 1 capsule by mouth once daily duloxetine 60 mg oral delayed release capsule 60 mg = 1 cap(s), Oral, Daily, Refills(s) 0, Anxiety Start Date: 10/09/24 Status: Ordered Start: 04-06-2022 take 1 capsule by [facility] every twelve hours DULoxetine HCl 60 MG 1 capsule Orally Twice a day for 30 day(s) Mar, Active Start: 04-06-2022 take 1 capsule by [facility] every twelve hours DULoxetine HCl 40 MG 1 capsule Orally Twice a day for 30 day(s) Mar, Active Start: 04-06-2022 take 1 capsule by [facility] every twelve hours DULoxetine HCl 20 MG 1 capsule Orally Twice a day for 30 day(s) Mar, Active empagliflozin 25 mg oral tablet (15 sources) Sodium-Glucose Cotransporter 2 Inhibitor Start: 07-12-2024 take 1 tablet by mouth once daily in the morning Jardiance 25 mg oral tablet 25 mg = 1 tab(s), Oral, qAM, weight loss, Refills(s) 0, Other (see comment) Start Date: 10/09/24 Status: Ordered Repeat number: 1 Start: 12-15-2023 take 1 tablet by [facility] in the morning JARDIANCE 10 mg tablet tablet Take 1 tablet (10 mg total) by mouth in the morning. 12/15/2023 Active fluconazole 150 mg oral tablet (6 sources) Azole Antifungal Start: 09-25-2022 Fluconazole 150 MG 1 tablet Orally 1 tablet weekly x 3 weeks for 21 days Aug, Active fludrocortisone acetate 0.1 mg oral tablet (13 sources) Start: 10-15-2023 take 1 tablet by mouth once daily fludrocortisone 0.1 mg Tab 0.1 mg = 1 tab(s), Oral, Daily, Refills(s) 0, Neuropathy Start Date: 10/09/24 Status: Ordered Repeat number: 1 fluticasone propionate 0.05 mg/actuat metered dose nasal spray (1 source) Corticosteroid take 1 spray(s) nasal route once daily Fluticasone Propionate 50 MCG/ACT 1 spray in each nostril Nasally Once a day for 30 day(s) Active gabapentin 400 mg oral capsule (20 sources) Anti-epileptic Agent Start: 10-09-2024 take 1 capsule by mouth twice daily gabapentin 400 mg Cap 400 mg = 1 cap(s), Oral, BID, Refills(s) 0, Neuropathy Start Date: 10/09/24 Status: Ordered Repeat number: 1 Start: 04-22-2022 take 1 tablet by more every eight hours Gabapentin 600 MG 1 tablet Orally three times a day for 30 day(s) Mar, Active Start: 09-29-2021 take 1 capsule by [facility] every eight hours Gabapentin 300 MG 1 capsule Orally three times a day for 30 day(s) Aug, Active take 1 capsule by [facility] every eight hours gabapentin (Neurontin) 400 mg capsule Take 1 capsule (400 mg) by mouth every 8 hours. Active take 0.5 tablet by outh at bedtime gabapentin (NEURONTIN) 600 MG tablet Take 0.5 tablets by mouth in the morning, at noon, in the evening, and at bedtime. 0 Active hydroCHLOROthiazide 25 mg / lisinopril 20 mg oral tablet (20 sources) Thiazide Diuretic, Angiotensin Converting Enzyme Inhibitor take 1 tablet by mouth every twenty-four hours Lisinopril-hydroCHLOROthiazide 20-25 MG 1 tablet Orally Once a day for 90 days Active take 1 tablet by mouth every twe nty-four hours hydrOXYzine hydrochloride 50 mg oral tablet (20 sources) Antihistamine Start: 10-09-2024 take 1 tablet by mouth twice daily hydrOXYzine hydrochloride 50 mg oral tablet 50 mg = 1 tab(s), Oral, BID, Refills(s) 0, Pain Start Date: 10/09/24 Status: Ordered Repeat number: 1 Start: 10-09-2024 take 1 mg by mouth f our times daily hydrOXYzine hydrochloride 50 mg oral tablet mg tab(s), Oral, QID, Refills(s) 0 Start Date: 10/09/24 Status: Ordered Start: 11-18-2023 take 1 tablet by more th every eight hours as needed hydrOXYzine (ATARAX) 50 mg tablet Take 1 tablet (50 mg total) by mouth every 8 (eight) hours as needed. 11/18/2023 Active Start: 09-04-2023 take 1 tablet by more every twelve hours hydrOXYzine HCL (Atarax) 25 mg tablet Take 1 tablet (25 mg) by mouth every 12 hours. 09/04/2023 Active Start: 11-07-2022 take 1 tablet by more twice daily as needed hydrOXYzine HCl 25 MG 1 tablet as needed Orally twice daily for 30 days Oct, Active Start: 06-25-2022 take 1 tablet by more th twice daily hydrOXYzine HCl 10 MG 1 Tablet Orally twice daily for 30 days May, Active take 1 tablet by more th three times daily as needed for anxiety hydrOXYzine HCl (ATARAX) 50 MG tablet 1 or 2 three times a day as needed for sleep or anxiety Orally as directed for 30 days 0 Active hyoscyamine sulfate 0.125 mg oral tablet (2 sources) Start: 10-19-2024 take 1 tablet by mouth four times daily as needed for muscle spasms Levsin 0.125 mg SL Tab 0.125 mg = 1 tab(s), Oral, QID, PRN for spasm, # 40 tab(s), Refills(s) 0, Pharmacy: [id number], 157, cm, 10/12/24 13:52:00 EST, Height/Length Dosing, 116, kg, 10/12/24 13:52:00 EST, Weight Dosing Start Date: 10/19/24 Status: Ordered Iron (1 source) take 1 tablet by mouth once daily Iron 325 (65 Fe) MG 1 tablet Orally Once a day Active levoFLOXacin 750 mg oral tablet (9 sources) Quinolone Antimicrobial Start: 10-08-2022 take 750 mg by mouth once daily Levofloxacin Active 750 MG PO Daily 03 05October 08, 2022 1:00am 3 ml liraglutide 6 mg/ml pen injector (20 sources) GLP-1 Receptor Agonist Start: 09-30-2022 VICTOZA 18 MG/3ML SOPN SC injection Inject into the skin 0 09/30/2022 Active inject 3 mg by subcu taneous injection once daily Victoza 18 MG/3ML 3 mg Subcutaneous Vera y for 30 days Active lisinopril 20 mg oral tablet (4 sources) Angiotensin Converting Enzyme Inhibitor take 1 tablet by mouth once daily lisinopril (PRINIVIL;ZESTRIL) 20 MG tablet Take 1 tablet by mouth daily 0 Active meloxicam 7.5 mg oral tablet (13 sources) Nonsteroidal Anti-inflammatory Drug Start: take 1 tablet by mouth once daily at mealtime meloxicam (MOBIC) 7.5 MG tablet Indications: Lumbar radiculopathy Take 1 tablet by mouth daily Take with food, avoid other NSAIDs (Ibuprofen) and steroids 30 tablet 0 10/01/2023 Active Start: 11-13-2021 End: 01-19-2024 take 1 tablet by mouth every twenty-four hours Meloxicam 15 MG 1 tablet Orally Once a day for 30 day(s) Jun, Active 24 hr metFORMIN hydrochloride 500 mg extended release oral tablet (1 source) Biguanide take 1 tablet by mouth twice daily at mealtime metFORMIN (GLUCOPHAGE-XR) 500 MG extended release tablet TAKE 1 TABLET BY MOUTH WITH FOOD TWICE DAILY 0 Active methylPREDNISolone 4 mg oral tablet (20 sources) Corticosteroid Start: 024 End: 025 take 1 tablet by mouth once methylPREDNISolone (Medrol Dospak) 4 mg tablets Take 1 tablet (4 mg) by mouth 1 time. 07/25/2024 12/17/2024 Discontinued (Med List Cleanup) Start: 04-16-2023 methylPREDNISo lone 4 MG as [...] 11-28-2018 Depo-Medrol 80 mg Nov, 60 mg metoprolol tartrate 25 mg oral tablet (15 sources) beta-Adrenergic Kaylin Start: 12-15-2023 take 1 tablet by mouth twice daily Lopressor 25 mg oral tablet 25 mg = 1 tab(s), Oral, BID, Refills(s) 0, High blood pressure Start Date: 10/09/24 Status: Ordered Repeat number: 1 midodrine hydrochloride 2.5 mg oral tablet (13 sources) alpha-Adrenergic Agonist Start: 10-12-2024 take 1 tablet by mouth twice daily midodrine 2.5 mg oral tablet 2.5 mg = 1 tab(s), Oral, BID, Refills(s) 0, High blood pressure Start Date: 10/12/24 Status: Ordered Repeat number: 1 Start: 09-18-2024 End: 09-18-2025 take 1 tablet by mouth three times daily midodrine (Proamatine) 2.5 mg tablet Indications: Postural dizziness with near syncope Take 1 tablet (2.5 mg) by mouth 3 times daily (morning, midday, late afternoon). 90 tablet 3 09/18/2024 09/18/2025 Active Start: 07-31-2024 End: 08-30-2024 take 1 tablet by mouth three times daily midodrine (Proamatine) 2.5 mg tablet Indications: Postural dizziness with near syncope Take 1 tablet (2.5 mg) by mouth 3 times daily (morning, midday, late afternoon). 90 tablet 07/31/2024 08/30/2024 Active nitrofurantoin, macrocrystals 25 mg / nitrofurantoin, monohydrate 75 mg oral capsule (3 sources) Nitrofuran Antibacterial Start: 07-31-2024 End: 12-17-2024 take 1 capsule by mouth every twelve hours nitrofurantoin, macrocrystal-monohydrate, (Macrobid) 100 mg capsule Take 1 capsule (100 mg) by mouth every 12 hours. 07/31/2024 12/17/2024 Discontinued (Med List Cleanup) nystatin [id number] unt/ml oral suspension (1 source) Polyene Antifungal Start: 07-20-2022 take 5 mL by mouth four times daily Nystatin [id number] UNIT/ML 5 ml Mouth/Throat Four times a day for 10 day(s) Jun, Active ondansetron 4 mg oral tablet (20 sources) Serotonin-3 Receptor Antagonist Start: 10-09-2024 take 1 tablet by mouth every eight hours as needed for nausea Zofran 4 mg Tab 4 mg = 1 tab(s), Oral, q8hr, PRN Nausea/Vomiting, Refills(s) 0 Start Date: 10/09/24 Status: Ordered Repeat number: 1 Start: 06-22-2024 take 1 tablet by more th every eight hours as needed ondansetron ODT (Zofran-ODT) 8 mg disintegrating tablet Dissolve 1 tablet (8 mg) in the mouth every 8 hours if needed. 06/22/2024 Active Start: 10-25-2023 End: 12-17-2024 take 1 tablet by mouth every eight hours as needed ondansetron ODT (Zofran-ODT) 4 mg disintegrating tablet Dissolve 1 tablet (4 mg) in the mouth every 8 hours if needed. 10/25/2023 12/17/2024 Discontinued (Med List Cleanup) Start: 10-25-2023 ondansetron OD T (ZOFRAN ODT) 4 mg disintegrating tablet Dissolve 1 tablet (4 mg total) on tongue 3 (three) times a day. 10/25/2023 Active Start: 06-12-2021 take 1 tablet by more th every twelve hours Ondansetron HCl 8 MG 1 tablet as needed Orally bid for 15 day(s) May, Active take 1 tablet by more th every eight hours as needed for nausea and vomiting ondansetron (Zofran) 8 MG tablet Take 8 mg by mouth every 8 (eight) hours if needed for nausea or vomiting Active oxyCODONE hydrochloride 5 mg oral tablet (2 sources) Opioid Agonist Start: 10-19-2024 take 1 tablet by mouth every six hours as needed for pain Roxicodone 5 mg Tab 5 mg = 1 tab(s), Oral, q6hr, PRN for pain, # 6 tab(s), Refills(s) 0, Pharmacy: [id number], 157, cm, 10/12/24 13:52:00 EST, Height/Length Dosing, 116, kg, 10/12/24 13:52:00 EST, Weight Dosing Start Date: 10/19/24 Status: Ordered pantoprazole 20 mg delayed release oral tablet (16 sources) Proton Pump Inhibitor Start: 10-09-2024 PANTOPRAZOLE 20MG TAB PANTOPRAZOLE 20MG TAB Start Date: 10/09/24 Status: Ordered Start: 12-15-2023 take 1 tablet by more th once daily Pantoprazole [address] Tab 20 mg = 1 tab(s), Oral, Daily, Refills(s) 0, Control of stomach acid Start Date: 10/12/24 Status: Ordered Repeat number: 1 potassium chloride 20 meq extended release oral tablet (11 sources) Start: 09-10-2022 take 1 tablet by mouth twice daily Potassium Chloride (K-Tab) 20 mEq tablet extended release Active 20 MEQ PO Twice daily September 10, 2022 1:00am predniSONE 50 mg oral tablet (18 sources) Start: 10-08-2022 End: 12-17-2024 take 1 tablet by mouth in the morning predniSONE (Deltasone) 50 mg tablet Take 1 tablet (50 mg) by mouth early in the morning.. 10/15/2023 12/17/2024 Discontinued (Med List Cleanup) Start: 10-01-2022 predniSONE 10 MG 1 tablet 3 times a day for 3 days then 1 tablet twice daily for 3 days Orally as directed for 6 days Sep, Active pregabalin 300 mg oral capsule (20 sources) Start: 10-29-2022 take 1 capsule by mouth every twelve hours Pregabalin 300 MG 1 capsule Orally Twice a day for 30 days Oct, Active Start: 10-29-2022 take 1 capsule by mo ut every twelve hours Pregabalin 150 MG 1 capsule Orally Twice a day for 30 days Oct, Active End: 01-19-2024 take 1 capsule by mouth in the morning, then take 1 capsule by mouth at bedtime pregabalin (LYRICA) 200 mg capsule Take 1 capsule (200 mg total) by mouth in the morning and 1 capsule (200 mg total) before bedtime. 01/19/2024 Discontinued (Therapy completed) spironolactone 100 mg oral tablet (13 sources) Aldosterone Antagonist Start: 10-09-2024 take 1 tablet by mouth once daily spironolactone 100 mg Tab 100 mg = 1 tab(s), Oral, Daily, Refills(s) 0, High blood pressure Start Date: 10/09/24 Status: Ordered Repeat number: 1 Start: 10-20-2023 take 1 tablet by more th in the morning spironolactone (ALDACTONE) 100 mg tablet Take 1 tablet (100 mg total) by mouth in the morning. 10/20/2023 Active take 1 tablet by more th once daily spironolactone (Aldactone) 25 MG tablet Take 25 mg by mouth Daily Active tamsulosin hydrochloride 0.4 mg oral capsule (2 sources) alpha-Adrenergic Kaylin Start: 10-19-2024 take 1 capsule by mouth once daily Flomax 0.4 mg Cap 0.4 mg = 1 cap(s), Oral, Daily, # 10 cap(s), Refills(s) 0, Pharmacy: [id number], 157, cm, 10/12/24 13:52:00 EST, Height/Length Dosing, 116, kg, 10/12/24 13:52:00 EST, Weight Dosing Start Date: 10/19/24 Status: Ordered temazepam 30 mg oral capsule (4 sources) Benzodiazepine Start: 10-12-2024 take 1 capsule by mouth once daily at bedtime as needed for sleep temazepam 30 mg Cap 30 mg = 1 cap(s), Oral, Once a day (at bedtime), PRN for sleep, Refills(s) 0 Start Date: 10/12/24 Status: Ordered Repeat number: 1 tiZANidine 4 mg oral capsule (20 sources) Central alpha-2 Adrenergic Agonist Start: 10-09-2024 tizanidine 4 mg oral capsule Refills(s) 0 Start Date: 10/09/24 Status: Ordered Start: 10-09-2024 take 2 capsules by m outh at bedtime tizanidine 4 mg oral capsule 8 mg = 2 cap(s), Oral, Bedtime, Refills(s) 0, Sleep Start Date: 10/09/24 Status: Ordered Repeat number: 1 Start: 12-15-2023 take 1 tablet by more th every eight hours as needed tiZANidine (ZANAFLEX) 4 mg tablet Take 1 tablet (4 mg total) by mouth every 8 (eight) hours as needed. 12/15/2023 Active Start: 10-20-2023 take 1 tablet by more th three times daily as needed tiZANidine (ZANAFLEX) 4 MG tablet Take 1 tablet by mouth 3 times daily as needed 0 10/20/2023 Active Start: 12-11-2021 take 1 tablet by more th every twenty-four hours tiZANidine HCl 4 MG 1 tablet as needed Orally once daily for 30 days Nov, Active take 1 tablet by more th twice daily as needed tiZANidine HCl 4 MG 1 tablet as needed Orally up to twice daily as needed for 30 days Active topiramate 25 mg oral tablet (18 sources) Start: 10-09-2024 take 1 tablet by mouth once daily topiramate 25 mg Tab 25 mg = 1 tab(s), Oral, Daily, Refills(s) 0, Neuropathy Start Date: 10/09/24 Status: Ordered Repeat number: 1 Start: 10-09-2024 take 1 mg by mouth twice daily topiramate 25 mg Tab mg tab(s), Oral, BID, Refills(s) 0 Start Date: 10/09/24 Status: Ordered Start: 02-15-2024 End: 03-16-2024 take 3 tablets by mouth once daily topiramate (TOPAMAX) 25 MG tablet Take 3 tablets by mouth nightly 90 tablet 0 02/15/2024 03/16/2024 Active Start: 01-20-2024 End: 02-15-2024 take 2 tablets by mouth once daily topiramate (TOPAMAX) 25 MG tablet Indications: Lumbar radiculopathy Take 2 tablets by mouth nightly 60 tablet 0 01/20/2024 02/15/2024 Discontinued (DOSE ADJUSTMENT) Start: 12-16-2023 End: 02-15-2024 take 1 tablet by mouth once daily topiramate (TOPAMAX) 25 MG tablet Indications: Lumbar radiculopathy Take 1 tablet by mouth nightly 30 tablet 0 12/16/2023 02/15/2024 Discontinued (DOSE ADJUSTMENT) traMADol hydrochloride 50 mg oral tablet (8 sources) Opioid Agonist Start: 07-30-2022 take 1 tablet by mouth every twelve [...] - 10 m g Feb, 40 mg TRULICITY 3 mg/0.5 mL pen injector (1 source) Start: 11-20-2023 inject 1 mg by subcutaneous injection every week TRULICITY 3 mg/0.5 mL pen injector Inject 1 mg under the skin once a week. 11/20/2023 Active TRULICITY 3 MG/0.5ML SOPN (1 source) Start: 10-25-2023 inject 3 mg by subcutaneous injection every week TRULICITY 3 MG/0.5ML SOPN INJECT 3 (THREE) mg SUBCUTANEOUSLY ONCE A WEEK 0 10/25/2023 Active Vitamin D (1 source) Vitamin D daily Active Completed/Discontinued Medications Medication Drug Class(es) Dates Sig (Normalized) Sig (Original) betamethasone 3 mg/ml / betamethasone acetate 3 mg/ml injectable suspension (1 source) Corticosteroid Start: 02-15-2024 End: 02-15-2024 betamethasone acetate-betamethason e sodium phosphate (CELESTONE) injection 3 mg Start: 02-15-2024 End: 02-15-2024 betamethasone acetate-betame thasone sodium phosphate (CELESTONE) injection 3 mg 60 actuat budesonide 0.16 mg/actuat / formoterol fumarate 0.0045 mg/actuat metered dose inhaler (5 sources) Corticosteroid, beta2-Adrenergic Agonist Start: 11-17-2023 End: 01-19-2024 take 2 puff(s) by inhalation in the morning SYMBICORT 160-4.5 mcg/actuation inhaler Inhale 2 puffs in the morning and 2 puffs before bedtime. 11/17/2023 01/19/2024 Discontinued (Therapy completed) End: 12-17-2024 take 1 puff(s) by inhalation twice daily Symbicort 160-4.5 mcg/actuation inhaler Inhale 1 puff 2 times a day. 12/17/2024 Discontinued (Med List Cleanup) take 1 puff(s) by in halation at bedtime SYMBICORT 160-4.5 MCG/ACT AERO Inhale 1 puff into the lungs in the morning and at bedtime 0 Active Dexamethasone (20 sources) Corticosteroid Start: 03-26-2022 Start: [...] Once a day for 9 days Active Handicap placards as directe d (20 sources) Start: 08-27-2022 Start: 08-27-2022 Handicap placa rds as directed [...] 11-03-2022 Ketorolac Trom ethamin Oct, 30 mg lidocaine hydrochloride 10 mg/ml injectable solution (2 sources) Antiarrhythmic, Amide Local Anesthetic Start: 02-15-2024 End: 02-15-2024 lidocaine 1 % injection 10 mL Start: 10-01-2023 lidocaine (LMX ) 4 % cream Indications: Lumbar radiculopathy Apply a half dollar sized amount to intact skin topically up to twice daily as needed for pain 45 g 1 10/01/2023 Active norethindrone 0.35 mg oral tablet (6 sources) Start: 12-15-2022 End: 01-19-2024 take 1 tablet by mouth in the morning DEBLITANE 0.35 mg tablet Indications: Encounter for initial prescription of contraceptive pills take 1 tablet by mouth in the morning 28 tablet 01/03/2024 01/19/2024 Discontinued (Therapy completed) 10 ml sodium bicarbonate 84 mg/ml injection (1 source) Start: 02-15-2024 End: 02-15-2024 sodium bicarbonate 8.4 % injection 0.5 mEq Start: 02-15-2024 End: 02-15-2024 sodium bicarbonate 8.4 % inj ection 0.5 mEq Toradol 30 mg/ml (20 sources) Start: 05-21-2022 [...] Generalized anxiety disorder; Translations: [Generalized anxiety disorder] Onset: 10-14-2023 Chronic Coma; stupor; and brain damage (20 sources) Excessive daytime sleepiness - normal night sleep; Translations: [Somnolence] Episodic Diabetes mellitus without complication (7 sources) Other abnormal glucose; Translations: [Impaired fasting glucose] Episodic Essential hypertension (20 sources) Essential hypertension; Translations: [Essential (primary) hypertension] Onset: 04-06-2022 Resolved: 04-27-2022 Chronic Genitourinary symptoms and ill-defined conditions (13 sources) Retention of urine; Translations: [Retention of [...] mild] Onset: 04-06-2022 Resolved: 04-27-2022 Chronic Mycoses (4 sources) Candidal stomatitis; Translations: [Onychomycosis] Episodic Osteoarthritis (20 sources) Arthritis of right knee; Translations: [Unilateral primary osteoarthritis, right knee] Onset: 10-07-2023 Chronic Other aftercare (2 sources) Polypharmacy ; Translations: [Other terminal block assembler (current) drug therapy] 08-09-2024 Episodic Other circulatory disease (1 source) Other specified symptoms and signs involving the circulatory and respiratory systems Episodic Other circulatory disease (5 sources) Postural orthostatic tachycardia syndrome 10-09-2024 Episodic Other connective tissue disease (2 sources) Pain in right foot; Translations: [Pain in right foot] 03-28-2025 Episodic Other connective tissue disease (2 sources) Pain in left foot; Translations: [Pain in left foot] 03-28-2025 Episodic Other diseases of kidney and ureters (1 source) Urinary tract obstruction; Translations: [Hydronephrosis with renal and ureteral calculous obstruction] Onset: 10-09-2024 Episodic Other nervous system disorders (20 sources) Chronic pain; Translations: [Other chronic pain] Chronic Other nervous system disorders (10 sources) Other chronic pain; Translations: [Other chronic pain] Onset: 09-29-2021 Resolved: 04-22-2022 Chronic Other nervous system disorders (5 sources) Disorder of autonomic nervous system Onset: 10-14-2023 10-09-2024 Chronic Other non-traumatic joint disorders (1 source) Pain in elbow; Translations: [Left elbow pain] Episodic Other non-traumatic joint disorders (1 source) Pain in right knee Episodic Other non-traumatic joint disorders (1 source) Pain in right hip Episodic Other nutritional; endocrine; and metabolic disorders (20 sources) Body mass index 40+ - severely obese; Translations: [Body mass index (BMI) 40.0-44.9, adult] Onset: 12-10-2021 11-24-2023 Chronic Other nutritional; endocrine; and metabolic disorders (14 sources) Severe obesity; Translations: [Morbid (severe) obesity due to excess calories] Onset: 06-30-2022 06-30-2022 Chronic Other nutritional; endocrine; and metabolic disorders (6 sources) Morbid (severe) obesity due to excess calories; Translations: [Morbid obesity] Chronic Other nutritional; endocrine; and metabolic disorders [...] [Chronic pansinusitis] Chronic Other upper respiratory infections (13 sources) Acute maxillary sinusitis, unspecified; Translations: [Acute frontal sinusitis, unspecified] Onset: 06-12-2021 Resolved: 06-12-2021 Episodic Otitis media and related conditions (4 sources) Otitis media, unspecified, bilateral; Translations: [Otitis media, unspecified, left ear] Episodic Pneumonia (except that caused by tuberculosis or sexually transmitted disease) (10 sources) Community acquired pneumonia; Translations: [Pneumonia, unspecified organism] 10-08-2022 Episodic Residual codes; unclassified (20 sources) Obstructive sleep apnea syndrome; Translations: [Obstructive sleep apnea (adult) (pediatric)] Chronic Residual codes; unclassified (20 sources) Obstructive sleep apnea of adult; Translations: [Obstructive sleep apnea (adult) (pediatric)] 10-14-2023 Chronic Residual codes; unclassified (20 sources) Sleep apnea; Translations: [Sleep apnea, unspecified] 10-12-2024 Chronic Residual codes; unclassified (4 sources) Sleep apnea, unspecified; Translations: [Sleep apnea] Chronic Residual codes; unclassified (6 sources) Obstructive sleep apnea (adult) (pediatric); Translations: [Obstructive sleep apnea (adult)(pediatric)] Onset: 12-28-2023 Chronic Residual codes; unclassified (1 source) Obstructive sleep apnea (adult)(pediatric); Translations: [Obstructive sleep apnea (adult) (pediatric)] Onset: 02-24-2023 Chronic Residual codes; unclassified (20 sources) Generalized aches and pains; Translations: [Pain, unspecified] Episodic Residual codes; unclassified (9 sources) Passive smoker; Translations: [Contact with and (suspected) exposure to environmental tobacco smoke (acute) (chronic)] 10-08-2022 Episodic Residual codes; unclassified (20 sources) Insomnia; Translations: [Insomnia, unspecified] Episodic Residual codes; unclassified (2 sources) Insomnia, unspecified Episodic Residual codes; unclassified (4 sources) Menopause present 10-12-2024 Episodic Screening and history of mental health and substance abuse codes (2 sources) Encounter for screening for depression; Translations: [Standardized adult depression screening tool completed ] Onset: 01-19-2024 01-19-2024 Episodic Spondylosis; intervertebral disc disorders; other back problems (20 sources) Arthritis of facet joint of lumbar spine; Translations: [Spondylosis without myelopathy or radiculopathy, lumbar region] Onset: 09-29-2021 Resolved: 04-22-2022 Chronic Unclassified (1 source) Unclassified (12 sources) Other low back pain; Translations: [Other low back pain] Unclassified (1 source) Dietary counseling and surveillance; Translations: [Dietary counseling and surveillance] Onset: 02-02-2023 Unclassified (1 source) Low back pain, unspecified; Translations: [Low back pain, unspecified] Onset: 12-23-2023 Unclassified (5 sources) Obstructive hydronephrosis 10-09-2024 Unclassified (5 sources) Polypharmacy 10-09-2024 Viral infection (2 sources) Verruca plantaris; Translations: [Plantar wart] 03-28-2025 Episodic Past or Other Problems Problem Classification Problem Date Documented Date Episodic/Chronic Conditions associated with dizziness or vertigo (16 sources) Postural dizziness; Translations: [Dizziness and giddiness] Onset: 10-08-2023 08-05-2024 Episodic Contraceptive and procreative management (2 sources) Patient encounter status; Translations: [Encounter for initial prescription of contraceptive pills] 01-02-2024 Episodic Fluid and electrolyte disorders (20 sources) Hypokalemia; Translations: [Hypokalemia] Onset: 09-21-2022 09-10-2022 Episodic Malaise and fatigue (6 sources) Other fatigue; Translations: [OTHER FATIGUE] Onset: 06-05-2022 Episodic Mood disorders (1 source) Mood disorders Onset: 01-19-2024 01-19-2024 Nausea and vomiting (1 source) Bilious vomiting; Translations: [Bilious vomiting with nausea R11.14] Onset: 06-12-2021 Resolved: 06-12-2021 Episodic Other aftercare (1 source) Encounter for follow-up examination after completed treatment for conditions other than malignant neoplasm Onset: 04-27-2022 Resolved: 04-27-2022 Episodic Other connective tissue disease (1 source) Other symptoms and signs involving the musculoskeletal system; Translations: [Other symptoms and signs involving the musculoskeletal system] Onset: 06-18-2023 Episodic Other screening for suspected conditions (not mental disorders or infectious disease) (6 sources) Encounter for screening mammogram for malignant neoplasm of breast; Translations: [Electrocardiogram abnormal] Onset: 01-19-2024 07-31-2024 Episodic Other skin disorders (1 source) Mass of skin of right lower limb; Translations: [Disorder of the skin and subcutaneous tissue, unspecified] 01-19-2024 Episodic Residual codes; unclassified (3 sources) Pain, unspecified Onset: 09-29-2021 Resolved: 01-28-2022 Episodic Spondylosis; intervertebral disc disorders; other back problems (18 sources) Radiculopathy, lumbar region; Translations: [Muscle spasm of back] Onset: 08-11-2021 Resolved: 08-11-2021 Episodic Sprains and strains (3 sources) Strain of muscle, fascia and tendon of lower back, initial encounter Onset: 11-06-2021 Resolved: 04-16-2022 Episodic Syncope (4 sources) Syncope and collapse; Translations: [Syncope and collapse] Onset: 07-31-2024 Episodic Unclassified (1 source) Suspected COVID-19 virus [...] 03-03-2022 Unclassified (1 source) Subacute cough R05.2 Unclassified (3 sources) Onset: 12-15-2022 Resolved: 01-19-2024 12-15-2022 Results Test Name Value Interpretation Reference Range [facility] 04-06-2025 ALT [Catalytic activity/Vol] 21 U/L Normal 6-29 [facility] Comment on above: Performed By: #### 8 22, 823 #### [facility] [place] [address] Poolroom/Poolhall Manager: Herb Andujar MD Sarah 04-06-2025 AST [Catalytic activity/Vol] 18 U/L Normal 10-35 [facility] Comment on above: Performed By: #### 8 22, 823 #### [facility] [place] [address] Poolroom/Poolhall Manager: Herb Andujar MD CT [facility] Abdomen/Pelvis w/o Contrast Exam Date/Time: 01/16/2025 10:14 EDT Reason for Exam: Ureteral stone;Other (please specify) Report IMPRESSION: 1.8 CM GALLBLADDER CALCULUS IN GALLBLADDER NECK. NONOBSTRUCTING LEFT RENAL CALCULUS. NO HYDROURETER. NO URETERAL CALCULI. CT OF THE ABDOMEN AND PELVIS WITHOUT INTRAVENOUS CONTRAST MEDIUM. HISTORY: URETERAL STONE. TECHNICAL FACTORS: CT imaging of the abdomen and pelvis were obtained and formatted as 5 mm contiguous axial images from the domes of the diaphragm to the symphysis pubis. Sagittal and coronal reconstructions were also obtained. Comparison: Abdominal radiograph, 11/02/2024. Abdominal ultrasound same date. Findings: Lower chest: Heart not imaged. Lung bases clear. Liver: Normal in size, shape, and attenuation. Bile Ducts: Normal in caliber. Gallbladder: Gallbladder distended with 1.8 cm calculus in gallbladder neck (series 4, image 60). No pericholecystic fluid. No gallbladder wall thickening. Pancreas: Normal without masses, cysts, ductal dilatation or calcification. Spleen: Normal in size without masses or calcifications. No splenules inferior to spleen measuring up to 1.6 cm. Kidneys: Normal in size. No hydronephrosis, or masses. No right renal calculi. 1.4 mm calculus lower pole left kidney. Adrenals: Normal. Small bowel: Normal in caliber. Appendix: Normal. Colon: Normal in caliber. Report Peritoneum: No ascites, free air, or fluid collections. Vessels: Aorta normal in course and caliber. Lymph nodes: Retroperitoneal: No enlarged retroperitoneal lymph nodes. Mesenteric: No enlarged mesenteric lymph nodes. Pelvic: No enlarged pelvic lymph nodes. Ureters: Normal in course and caliber. No calcifications. Bladder: No wall thickening. Reproductive organs: No pelvic masses. Abdominal Wall: 1.7 cm fat-containing periumbilical anterior abdominal wall defect. No diastasis of rectus musculature. No edema or masses. Bones: No bone lesions. Small anterior osteophytes lower thoracic spine. No post operative changes. All CT scans at this facility use dose modulation, iterative reconstruction, and/or weight based dosing when appropriate to reduce radiation dose to as low as reasonably achievable. Technical Comments: Rectal Contrast Given? No Ordering Provider: YESENIA YUSUF FINAL REPORT Dictated: 01/17/2025 10:12 am Estuardo Kang MD Signed (Electronic Signature): 01/17/2025 10:12 am Signed by: Estuardo Kang MD Transcribed by: GREGG Technologist: ARACELI Hinton [facility] Ambulatory Visit Summaryon 0 11-14-2024 Ambulatory Visit Summary Ambulatory Visit Summary JOSELITO VIDAL :1970 Visit Date:11/14/2024 Ambulatory Visit Instructions Your Diagnosis Ureteral stone with hydronephrosis Your Care Team Attending Physician - YESENIA YUSUF MD Primary Care Physician - ELLIE INGRAM CNP This Is Your Medications List Contact prescribing physician if questions or concerns APAP/butalbital/caffeine (Esgic 325 mg-50 mg-40 mg oral capsule) cetirizine (cetirizine 10 mg oral capsule) dulaglutide (Trulicity Pen 3 mg/0.5 mL subcutaneous solution) empagliflozin (Jardiance 25 mg oral tablet) fludrocortisone (fludrocortisone 0.1 mg Tab) gabapentin (gabapentin 400 mg Cap) hydrOXYzine (hydrOXYzine hydrochloride 50 mg oral tablet) metoprolol (Lopressor 25 mg oral tablet) midodrine (midodrine 2.5 mg oral tablet) ondansetron (Zofran 4 mg Tab) pantoprazole (Pantoprazole [address] Tab) spironolactone (spironolactone 100 mg Tab) temazepam (temazepam 30 mg Cap) tizanidine (tizanidine 4 mg oral capsule) topiramate (topiramate 25 mg Tab) Procedures Performed Cystoscopy (10/19/2024), Mammography (01/01/2023), Spinal nerve. Discharge Vitals Heart Rate (Peripheral) 80 Respiratory Rate 16 Blood Pressure 137/94 Height 157 cm Height 62 in Weight 116 kg Weight 255.736 lb BMI 47.06 What to do next Scheduled Follow-Up Appointments Wednesday 11:00 AM EDT With: YESENIA YUSUF MD Where: [facility] [address], [address] [place] [address]- You Need to Schedule the Following Appointments Follow Up with YESENIA YUSUF MD, URL When: Where: You Need to Complete the Following CT Abdomen/Pelvis w/o Contrast, 11/14/24, Routine, Order for future visit, Transport Mode: Ambulatory, Reason: Other (please specify), Reason: Ureteral stone, No, No, Ureteral stone with hydronephrosis, Stone protocol, pp_set_radiology_subspeci alty, Not Required, [facility] Medications What How Much When Instructions Unchanged APAP/ butalbital/ caffeine (Esgic 325 mg-50 mg-40 mg oral capsule) 1 Capsules By Mouth Every 4 hours as needed for Headache Contact prescribing physician if questions or concerns Unchanged cetirizine (cetirizine 10 mg oral capsule) 1 Capsules By Mouth Every day as needed for for allergy symptoms Contact prescribing physician if questions or concerns Unchanged dulaglutide (Trulicity Pen 3 mg/ 0.5 mL subcutaneous solution) 3 Milligram Subcutaneous Every week weight loss Contact prescribing physician if questions or concerns Unchanged empagliflozin (Jardiance 25 mg oral tablet) 1 Tablets By Mouth Once a day (in the morning) weight loss Contact prescribing physician if questions or concerns Unchanged fludrocortisone (fludrocortisone 0.1 mg Tab) 1 Tablets By Mouth Every day Contact prescribing physician if questions or concerns Unchanged gabapentin (gabapentin 400 mg Cap) 1 Capsules By Mouth 2 times a day Contact prescribing physician if questions or concerns Unchanged hydrOXYzine (hydrOXYzine hydrochloride 50 mg oral tablet) 1 Tablets By Mouth 2 times a day Contact prescribing physician if questions or concerns Unchanged metoprolol (Lopressor 25 mg oral tablet) 1 Tablets By Mouth 2 times a day Contact prescribing physician if questions or concerns Unchanged midodrine (midodrine 2.5 mg oral tablet) 1 Tablets By Mouth 2 times a day Contact prescribing physician if questions or concerns Unchanged ondansetron (Zofran 4 mg Tab) 1 Tablets By Mouth Every 8 hours as needed for Nausea/Vomiting Contact prescribing physician if questions or concerns Unchanged pantoprazole (Pantoprazole [address] Tab) 1 Tablets By Mouth Every day Contact prescribing physician if questions or concerns Unchanged spironolactone (spironolactone 100 mg Tab) 1 Tablets By Mouth Every day Contact prescribing physician if questions or concerns Unchanged temazepam (temazepam 30 mg Cap) 1 Capsules By Mouth Once a day (at bedtime) as needed for for sleep Contact prescribing physician if questions or concerns Unchanged tizanidine (tizanidine 4 mg oral capsule) 2 Capsules By Mouth At bedtime Contact prescribing physician if questions or concerns Unchanged topiramate (topiramate 25 mg Tab) 1 Tablets By Mouth Every day Contact prescribing physician if questions or concerns Allergies No Known Medication Allergies Problems Ongoing - Any problem that you are currently receiving treatment for. Arthritis of right knee Disorder of autonomic nervous system Dizziness Generalized anxiety disorder Hypokalemia Low back pain Lumbar spondylosis Polypharmacy Postural orthostatic tachycardia syndrome Ureteral stone with hydronephrosis Patient Survey You may receive a survey via text or e-mail asking about your office visit. Please share your experience with us by completing your survey. We appreciate your feedback and thank yo (more content not included)... Normal [facility] Urology Office/Clinic Noteon 11-14-2024 Urology Office/Clinic Note Urology Office/Clinic Note Chief Complaint follow up HPI Staff 54 year old female here for follow up to Cystoscopy, right ureteroscopy, right ureteral stent placement 10/19/24 GERRY and KUB done 11/02/24 at [facility] Previous Dx: Ureteral stone with hydronephrosis Patient denies any dysuria or gross hematuria. Denies any issues taking stent out at home History of Present Illness Tests reviewed: reviewed KUB and GERRY. I have reviewed the previous health record information and history for this patient from Dr. Avery I have reviewed and verified the staff HPI to be accurate for this encounter. There have been no associated fever, chills, flank pain, or blood in the urine. Denies any urinary infections since last encounter. Review of Systems PHQ Score Initial Depression Screen Score: 0 SCORE ROS - Provider Constitutional: denies weight loss, denies hot flashes. Eyes: denies eye problems. Gastrointestinal: denies nausea, denies vomiting. Cardiovascular: denies chest pain or angina. Integumentary: no dryness Musculoskeletal: denies musculoskeletal symptoms. ENMT: denies otolaryngeal symptoms. Respiratory: no shortness of breath. Heme/Lymph: denies easy bleeding tendency, denies easy bruising tendency. Psychiatric: no confusion, no anxiety. Genitourinary: See HPI. Physical Exam Vitals & Measurements HR: 80(Peripheral) RR: 16 BP: 137/94 HT: 62 in HT: 157 cm WT: 116 kg WT: 255.736 lb BMI: 47.06 General Appearance: alert , no acute distress, well nourished, well developed female. Assessment/Plan 54 yo female initially referred by REBEKAH Maldonado due to kidney stone and JOSE. Denies hx of DE or CVA. Not on anticoagulation. BBSQ 13 (7) Portions of this record may have been created with voice recognition artificial intelligence software, specifically [employer], [employer] and or [employer]. Substitutions may have occurred due to the inherent limitations of voice recognition and artificial intelligence software. 1. Ureteral stone with hydronephrosis (N13.2: Hydronephrosis with renal and ureteral calculous obstruction) Pt presented to [facility] ER 09/23/24 due to R sided flank pain. CT AP w con 09/23/24 - obstructing 5 mm R UVJ stone with mild to moderate upstream dilatation. Kidney function - Cr 1.0, eGFR 68. Grandmother had kidney stones. First stone event. Of note, pt states that she presented to the ER a year ago with UR for 24 hrs. Pt states she was cathed at the ER and had no issues with urination afterwards. S/p cysto, R URS, R stent placement 10/19/24 - no presence of stone noted in the renal pelvis or distal ureter. Removed string stent at home without difficulty. KUB 11/02/24 [facility] - An approximately 4 x 2 mm calculus overlying the left side of the distal sacrum may be within the distal left ureter or urinary bladder. Renal US 11/02/24 [facility] - The study is mild to moderately limited by the patient's body habitus. Neg for stones or hydro. Discussed KUB findings with pt. Asymptomatic. Denies passage of stone since having imaging done. Discussed ordering CT AP wo con to better evaluate stone noted on KUB. Pt agrees with plan. -CT AP wo con (stone protocol) now at [facility] -F/up in [address] results Patient is a 54-year-old female who had a right ureteroscopy, laser lithotripsy, renal ultrasound was unremarkable. KUB stone a possible distal left ureteral stone. She denies any flank pain. I discussed with the patient that we will proceed with a CT abdomen pelvis to truly assess her stone burden. Follow-up With When Contact Information TREVOR RAMIREZ, DEAN PATTERSON Additional Instructions: 2 months (CT now at [facility]) Patient Education Dietary Guidelines to Help Prevent Kidney Stones I, Suly Burrell, personally scribed for Dr. Avery on 11/14/2024 14:04:04. . Documentation recorded by the scribe, Suly Burrell, accurately reflects the services(s) I performed and decisions made by me. Authenticated by Dr. Yusuf on 11/14/2024 14:20:14. Problem List/Past Medical History Ongoing Arthritis of right knee Disorder of autonomic nervous system Dizziness Generalized anxiety disorder Hypokalemia Low back pain Lumbar spondylosis Polypharmacy Postural orthostatic tachycardia syndrome Ureteral stone with hydronephrosis Historical No qualifying data Procedure/Surgical History Cystoscopy (10/19/2024), Mammography (01/01/2023), Spinal nerve. Medications cetirizine 10 mg oral capsule, 10 mg= 1 cap(s), Oral, Daily, PRN Esgic 325 mg-50 mg-40 mg oral capsule, 1 cap(s), Oral, q4hr, PRN fludrocortisone 0.1 mg Tab, 0.1 mg= 1 tab(s), Oral, Daily gabapentin 400 mg Cap, 400 mg= 1 cap(s), Oral, BID hydrOXYzine hydrochloride 50 mg oral tablet, 50 mg= 1 tab(s), Oral, BID Jardiance 25 mg oral tablet, 25 mg= 1 tab(s), Oral, qAM Lopressor 25 mg oral tablet, 25 mg= 1 tab (more content not included)... Normal [facility] Comment on above: Result Comment: Elec tronically Signed By: YESENIA YUSUF MD\.br\Date and Time Signed: 11/14/24 14:25 EDT\.br\Electronically Co-Signed By: Suly Burrell\.br\Date and Time Co-Signed: 11/14/24 14:04 EDT US Renalon 11-03-2024 US Renal Exam Date/Time: 11/02/2024 10:38 EST Reason for Exam: post op;Other (please specify) Report IMPRESSION: SUSPECT CHOLELITHIASIS WITH AN AT LEAST 8 CM CYST IN THE SUBHEPATIC SPACE. FURTHER EVALUATION WITH CT WITHOUT AND WITH CONTRAST IS SUGGESTED. OTHERWISE, NEGATIVE LIMITED RENAL ULTRASOUND EXAM: US Renal DATE: 11/02/2024 10:24 AM CLINICAL HISTORY: post op. COMPARISON: Outside lumbar spine MRI 06/18/2023. TECHNIQUE: Transabdominal ultrasound of the kidneys was performed. FINDINGS: The study is mild to moderately limited by the patient's body habitus. Both kidneys are normal in size, position and morphology, with renal cortex echogenicity within normal limits. There is no hydronephrosis, visualized nephrolithiasis, abnormal perinephric collections, or solid renal masses identified. The limited imaging of the gallbladder fossa demonstrates a probable 2 cm gallstone within the gallbladder and partial visualization of an adjacent at least approximately 8 cm probable cyst in the subhepatic space. Right Kidney Length: 9.8 cm Cortex: 1.3 cm Left Kidney Length: 9.3 cm Cortex: 1.4 cm Report Ordering Provider: YESENIA YUSUF FINAL REPORT Dictated: 11/03/2024 12:49 pm Jeffry Chapman MD Signed (Electronic Signature): 11/03/2024 12:49 pm Signed by: Jeffry Chapman MD Transcribed by: GREGG Technologist: JESUS ALBERTO Lopez [facility] XR Abdomen 1 Viewon 11-04-19 XR Abdomen 1 View Exam Date/Time: 11/02/2024 10:26 EST Reason for Exam: N20.1;Post Op Report IMPRESSION: APPROXIMATELY 4 X 2 MM CALCULUS OVERLYING THE LEFT HEMIPELVIS, WHICH MAY BE A DISTAL LEFT URETERAL OR BLADDER CALCULUS. NO OTHER SIGNIFICANT URINARY TRACT CALCULI IDENTIFIED, BY PLAIN RADIOGRAPHY. NONSPECIFIC 8 CM ROUND RIGHT UPPER QUADRANT DENSITY (SEE RENAL ULTRASOUND REPORT). EXAM: XR Abdomen 1 View DATE: 11/02/2024 10:19 AM CLINICAL HISTORY: Post Op, N20.1. COMPARISON: Renal ultrasound 11/02/2024 and outside lumbar spine MRI 06/18/2023. TECHNIQUE: Two supine radiographs of the abdomen and pelvis were obtained. FINDINGS: An approximately 4 x 2 mm calculus overlying the left side of the distal sacrum may be within the distal left ureter or urinary bladder. Other smaller less dense rounded calcifications within the lateral inferior left hemipelvis are probably phleboliths. There are no other significant calculi identified overlying the kidneys, expected courses of either ureter or bladder. A nonspecific approximately 8 cm well-defined round density in the right upper quadrant is partially visualized on renal ultrasound (see report). The bowel gas pattern is unremarkable. The visualized lung bases are clear. Ordering Provider: YESENIA YUSUF FINAL REPORT Dictated: 11/03/2024 12:36 pm Jeffry Chapman MD Signed (Electronic Signature): 11/03/2024 12:36 pm Signed by: Jeffry Chapman MD Transcribed by: GREGG Technologist: NAWAF, Jessica [facility] CBC w/ Auto Diffon 5 Basophils/100 WBC (Bld) 0.5 % Normal 0.0-2.0 [facility] Comment on above: Performed By: #### 2 [id number] #### [facility] [address] [place] [address] Basophils/Leukocytes Auto (Bld) [Pure # fraction] 0.0 E9/L Normal 0.0-0.2 [facility] Comment on above: Performed By: #### 2 [id number] #### [facility] [address] [place] [address] Eosinophils (Bld) [#/Vol] 0.2 E9/L Normal 0.0-0.5 [facility] Comment on above: Performed By: #### 2 [id number] #### [facility] [address] [place] [address] 00531 Eosinophils/100 WBC (Bld) 2.5 % Normal 0.0-8.0 [facility] Comment on above: Performed By: #### 2 [id number] #### [facility] [address] [place] [address] Erythrocyte distribution width (RBC) [Ratio] 14.0 % Normal 10.9-14.2 [facility] Comment on above: Performed By: #### 2 [id number] #### [facility] [address] [place] [address] Hematocrit (Bld) [Volume fraction] 44.6 % Normal 34.0-46.0 [facility] Comment on above: Performed By: #### 2 [id number] #### [facility] [address] [place] [address] Hemoglobin (Bld) [Mass/Vol] 15.4 g/dL Normal 12.0-16.0 [facility] Comment on above: Performed By: #### 2 [id number] #### [facility] [address] [place] [address] Lymphocytes (Bld) [#/Vol] 2.4 E9/L Normal 1.0-4.0 [facility] Comment on above: Performed By: #### 2 [id number] #### [facility] [address] [place] [address] Lymphocytes/100 WBC (Bld) 23.5 % Normal 14.0-50.0 [facility] Comment on above: Performed By: #### 2 [id number] #### [facility] [address] [place] [address] MCH (RBC) [Entitic mass] 32.3 pg Normal 27.0-34.0 [facility] Comment on above: Performed By: #### 2 [id number] #### [facility] [address] [place] [address] MCHC (RBC) [Mass/Vol] 34.5 g/dL Normal 31.4-36.0 [facility] Comment on above: Performed By: #### 2 [id number] #### [facility] [address] [place] [address] MCV (RBC) [Entitic vol] 93.6 fL Normal 80.0-100.0 [facility] Comment on above: Performed By: #### 2 [id number] #### [facility] [address] [place] [address] Monocytes (Bld) [#/Vol] 0.9 E9/L Normal 0.2-1.0 [facility] Comment on above: Performed By: #### 2 [id number] #### [facility] [address] [place] [address] Neutrophils (Bld) [#/Vol] 6.6 E9/L Normal 2.0-7.5 [facility] Comment on above: Performed By: #### 2 971109 #### [facility] [address] [place] [address] Neutrophils/100 WBC (Bld) 64.6 % Normal 36.0-75.0 [facility] Comment on above: Performed By: #### 2 [id number] #### [facility] [address] [place] [address] Platelet mean volume (Bld) [Entitic vol] 7.5 fL Normal 6.4-10.8 [facility] Comment on above: Performed By: #### 2 [id number] #### [facility] [address] [place] [address] Platelets (Bld) [#/Vol] 383.0 E9/L Normal 150.0-500. 0 [facility] Comment on above: Performed By: #### 2 [id number] #### [facility] [address] [place] [address] RBC (Bld) [#/Vol] 4.8 E12/L Normal 4.3-5.9 [facility] Comment on above: Performed By: #### 2 [id number] #### [facility] [address] [place] [address] WBC corrected for nucl RBC Auto (Bld) [#/Vol] 10.2 E9/L Normal 4.0-11.0 [facility] Comment on above: Performed By: #### 2 [id number] #### [facility] [address] [place] [address] CMPon 11-02-2024 Albumin [Mass/Vol] 4.3 g/dL Normal 3.3-5.0 [facility] Comment on above: Performed By: #### 2 [id number] #### [facility] [address] [place] [address] Albumin/Globulin (S) [Mass conc ratio] 1.5 Normal 1.1-2.2 [facility] Comment on above: Performed By: #### 2 673820 #### [facility] [address] [place] [address] ALP [Catalytic activity/Vol] 111 Int._Unit/L High 21-98 [facility] Comment on above: Performed By: #### 2 [id number] #### [facility] [address] [place] [address] ALT No additional P-5'-P [Catalytic activity/Vol] 18 Int._Unit/L Normal 6-46 [facility] Comment on above: Performed By: #### 2 156394 #### [facility] [address] [place] [address] Anion gap [Moles/Vol] 13 mmol/L Normal 6-16 [facility] Comment on above: Performed By: #### 2 594470 #### [facility] [address] [place] [address] AST [Catalytic activity/Vol] 16 Int._Unit/L Normal 5-43 [facility] Comment on above: Performed By: #### 2 311682 #### [facility] [address] [place] [address] Bilirubin [Mass/Vol] 0.8 mg/dL Normal 0.0-1.1 [facility] Comment on above: Performed By: #### 2 474669 #### [facility] [address] [place] [address] Calcium [Mass/Vol] 9.4 mg/dL Normal 8.9-11.1 [facility] Comment on above: Performed By: #### 2 899991 #### [facility] [address] [place] [address] Chloride [Moles/Vol] 105 mmol/L Normal 101-111 [facility] Comment on above: Performed By: #### 2 487648 #### [facility] [address] [place] [address] CO2 [Moles/Vol] 26 mmol/L Normal 21-31 [facility] Comment on above: Performed By: #### 2 [id number] #### [facility] [address] [place] [address] Creatinine [Mass/Vol] 1.1 mg/dL Normal 0.5-1.3 [facility] Comment on above: Performed By: #### 2 [id number] #### [facility] [address] [place] [address] Globulin (S) [Mass/Vol] 2.8 g/dL Normal 1.4-4.0 [facility] Comment on above: Performed By: #### 2 415446 #### [facility] [address] [place] [address] Glucose [Mass/Vol] 100 mg/dL Normal 55-199 [facility] Comment on above: Performed By: #### 2 706058 #### [facility] [address] [place] [address] Potassium [Moles/Vol] 4.5 mmol/L Normal 3.5-5.3 [facility] Comment on above: Performed By: #### 2 385165 #### [facility] [address] [place] [address] Protein [Mass/Vol] 7.1 g/dL Normal 6.0-7.8 [facility] Comment on above: Performed By: #### 2 692638 #### [facility] [address] [place] [address] Sodium [Moles/Vol] 139 mmol/L Normal 135-145 [facility] Comment on above: Performed By: #### 2 033861 #### [facility] [address] [place] [address] Urea nitrogen [Mass/Vol] 16 mg/dL Normal 5-21 [facility] Comment on above: Performed By: #### 2 081326 #### [facility] [address] [place] [address] Urea nitrogen/Creatinine [Mass ratio] 14 No Units Normal 10-20 [facility] Comment on above: Performed By: #### 2 [id number] #### [facility] [address] [place] [address] [id number] 11-02-2024 HbA1c (Bld) [Mass fraction] 5.5 % Normal <=5.9 [facility] Comment on above: Performed By: #### 7 [id number] #### [facility] [address] [place] [address] Lipid Panelon 11-02-2024 Cholesterol [Mass/Vol] 160 mg/dL Normal 120-200 [facility] Comment on above: Performed By: #### 2 082884 #### [facility] [address] [place] [facility] [address] Cholesterol in HDL [Mass/Vol] 36 mg/dL Invalid Interpretation Code [facility] Comment on above: Result Comment: '>= 60 LOW RISK' '<= 40 HIGH RISK' Performed By: #### 2 814015 #### [facility] [address] [place] [address] Cholesterol in LDL [Mass/Vol] 115 mg/dL Normal <=129 [facility] Comment on above: Performed By: #### 2 292382 #### [facility] [address] [place] [address] Cholesterol in VLDL [Mass/Vol] 27 mg/dL Normal 7-40 [facility] Comment on above: Performed By: #### 2 716992 #### [facility] [address] [place] [address] Triglyceride [Mass/Vol] 134 mg/dL Normal <=149 [facility] Comment on above: Performed By: #### 2 947647 #### [facility] [address] [place] [address] Magnesiumon 11-02-2024 Magnesium [Mass/Vol] 2.0 mg/dL Normal 1.3-2.4 [facility] Comment on above: Performed By: #### 2 944896 #### [facility] [address] [facility] [place] [place] [address] Vit B12on 11-02-2024 Cobalamin (Vitamin B12) [Mass/Vol] 684 pg/mL Normal 50-1500 [facility] Comment on above: Performed By: #### 2 [id number] #### [facility] [address] [facility] [place] [address] eGFRon 11-02-2024 eGFR 60 mL/min/1.73 m2 Normal >=59 [facility] Comment on above: Performed By: #### 1 [id number] #### [facility] [address] [place] [address] Main OR Intraoperative Recor don 10-23-2024 Main OR Intraoperative Record Main OR Intraoperative Record IntraOp Document Type FT Summary Primary Physician: YESENIA YUSUF MD Finalized Date/Time: 10/23/24 12:38:57 Pt. Name: YOUNG JOSELITO /Sex: 1970 Female Med Rec #: [id number] Physician: YSEENIA YUSUF MD Financial #: [id number] Pt. Type: A Room/Bed: [place] [address] Admit/Disch: 10/19/24 08:59:52 - 10/19/24 14:50:00 Institution: Case Times FT Entry 1 Patient Times In Room 10/19/24 12:22:00 Out Room 10/19/24 12:44:00 Procedure Times Start 10/19/24 12:31:00 Stop 10/19/24 12:39:00 Anesthesia Times Start 10/19/24 12:22:00 Stop 10/19/24 12:44:00 Last Modified By: Regina Walker 10/19/24 12:50:04 General Comments: 10/23/24 Chart opened to review and send charges [facility]oth CSFA Case Attendance FT Entry 1 Entry 2 Entry 3 Case Attendee Esther Perez CRNA, MD, Regina Walker Role Performed FUEL EFFICIENT AUTOMOBILE DESIGNER Surgeon - Primary Plastic Surgery Coordinator - Primary Time In 10/19/24 12:22:00 10/19/24 12:22:00 10/19/24 12:22:00 Time Out 10/19/24 12:44:00 10/19/24 12:44:00 10/19/24 12:44:00 Procedure CYSTOSCOPY W/ HOMIUM CYSTOSCOPY W/ HOMIUM CYSTOSCOPY W/ HOMIUM LASER(Right), LASER(Right), LASER(Right), CYSTOSCOPY RETROGRADE CYSTOSCOPY RETROGRADE CYSTOSCOPY RETROGRADE STENT INSERTION(Right) STENT INSERTION(Right) STENT INSERTION(Right) Comments IS SUPERVISING Last Modified By: Burgderfer, Regina Sanders Kelsie E 10/19/24 12:56:16 10/19/24 12:56:16 10/19/24 12:56:16 Entry 4 Entry 5 Case Attendee Ta Ibrahim CST(R)Kassandra Role Performed Scrub - Primary Animal Shelter Worker Time In 10/19/24 12:22:00 10/19/24 12:25:00 Time Out 10/19/24 12:44:00 10/19/24 12:44:00 Procedure CYSTOSCOPY W/ HOMIUM CYSTOSCOPY W/ HOMIUM LASER(Right), LASER(Right), CYSTOSCOPY RETROGRADE CYSTOSCOPY RETROGRADE STENT INSERTION(Right) STENT INSERTION(Right) Comments Last Modified By: Regina Walker Kelsie E 10/19/24 12:56:16 10/19/24 12:56:16 General Comments: MARY FULTON, KENNEDY SALAZAR AND TECHNOLOGY AND ENGINEERING TEACHER, IN ATTENDANCE.JOSE LAMBERT . Perioperative Protocols FT Pre-Care Text: Implements protective measures prior to operative or invasive procedure, confirms identity before the operative or invasive procedure, verifies operative procedure, surgical site, and laterality Entry 1 Procedure(s) CYSTOSCOPY W/ HOMIUM Patient Identity Birthday, ID Band LASER(Right), Verified (select at Check, Patient CYSTOSCOPY RETROGRADE least 2): Participation STENT INSERTION(Right) Consents / H and P Anesthesia Consent, Operative Site Present Verified H&P, Surgery/Procedure Marking Verified Consent Surgical Site Yes Laterality Verified Yes Verified Procedure Verified Yes Correct Patient Yes Position Verified Availability Equipment, Implant, Prep Dry n/a Verified (If Medication, X-ray Applicable) PreOp Antibiotic Yes Time Out Esther Perez CRNA, Given Participants TREVOR RAMIREZ, Aaron PATTERSON Kelsie E, Dent CST, Beau, Ware RT(R)Kassandra Time Out Complete 10/19/24 12:30:00 Outcomes Met? Yes Last Modified By: Regina Walker 10/19/24 12:55:40 Post-Care Text: The patient is free from signs and symptoms of injury caused by extraneous objects Allergy Information FT Pre-Care Text: Verifies allergies Entry 1 Allergies Reviewed? Yes Allergies Reviewed Self/Patient With Outcomes Met? Yes Last Modified By: Regina Walker 10/19/24 12:37:27 Post-Care Text: The patient received appropriate medication(s) safely administered during the perioperative period Surgical Procedures FT Entry 1 Entry 2 Procedure Description Procedure CYSTOSCOPY W/ HOMIUM CYSTOSCOPY RETROGRADE LASER STENT INSERTION Modifiers Right Right Surgeon Description CYSTO,RIGHT URTEROSCOPY CYSTO,RIGHT URTEROSCOPY AND RIGHT STENT AND RIGHT STENT PLACEMENT PLACEMENT Primary Procedure No Yes Primary Surgeon TREVOR RAMIREZ, TREVOR RAMIREZ, YESENIA YESENIA Start 10/19/24 12:31:00 10/19/24 12:31:00 Stop 10/19/24 12:39:00 10/19/24 12:39:00 Anesthesia Type General General Surgical Service Urology Urology Wound Class 2 - Clean-Contaminated 2 - Clean-Contaminated Last Modified By: Regina Walker Kelsie E 10/19/24 12:56:03 10/19/24 12:56:13 General Case Data FT Pre-Care Text: Classifies surgical wound, implements aseptic technique, initiates traffic control Entry 1 Case Information OR OR 1 FT Case Level Level 3 Wound Class 2 - Clean-Contaminated Specialty Urology Preop Diagnosis RIGHT URETERAL STONE Postop Same As Preop Yes Postop Diagnosis RIGHT URETERAL STONE Outcomes Met? Yes Last Modified By: Regina Walker 10/19/24 12:37:34 Post-Care Text: The patient is free from signs and symptoms of infection Skin Assessment (Pre Procedure) FT Pre-Care Text: Implements protective measures to preve (more content not included)... Normal [facility] CHEMISTRYOrdered By: Lab ROP User on 10-19-2024 Glucose [Mass/Vol] 101 mg/dL High 55 - 99 mg/dL [facility] POC Subsection Comment on above: Result Comment: Yana parsons RN/ POC Username BEBO GOODRICH Invalid Interpretation Code [facility] POC Subsection Sodium [Moles/Vol] [id number] mmol/L Invalid Interpretation Code [facility] POC Subsection Sodium [Moles/Vol] [id number] mmol/L Invalid Interpretation Code [facility] POC Subsection Capillary Glucose POCon 10-01 Glucose [Mass/Vol] 101 mg/dL High 55-99 [facility] Comment on above: Result Comment: Yana jaqueline RN/ Performed By: #### 2 [id number] ####[facility] [id number] [place] [address] Discharge Instructionson Discharge Instructions Discharge Instruc tions JOSELITO VIDAL :1970 Visit Date:10/19/2024 Inpatient Discharge Instructions Your Care Team Admitting Physician - YESENIA YUSUF MD Referring Physician - YESENIA YUSUF MD What to do next Instructions From Your Doctor Event Name Event Result Discharge Instructions Freetext Remove stent in 5 days. Pull on black string and stent will come out Take tylenol 30 mins before stent pull Burning, blood in urine and discomfort expected w/ stent Take levsin prn for stent discomfort Take tylenol, motrin for pain. 6 wks jair Discharge Activity Ambulate as tolerated, Resume normal activities in 24 hours, Arrange for a responsible adult supervision for 24 hours, Expect mild pain, Expect minimal amount of drainage and/or bleeding, Activity as tolerated Discharge Restrictions No driving for 24 hrs, Do not make important decisions for 24 hours, Do not drink alcoholic beverages for 24 hours Discharge Diet(s) Regular Call Your Doctor For Temperature above 101.5 degrees, Redness, swelling, or pus at operative site, Severe pain at the operative site, Persistent vomiting Discharge Instructions Discharge Instructions Previously Scheduled Follow-Up Appointments Wednesday 10:15 AM EST With: Obdulio Matamoros DO [facility] New Follow Up Appointments after Discharge Follow Up with YESENIA YUSUF When: Comments: 6 WKS WITH GERRY AGUIAR Where: [address] [place] [address] [phone] Business (1) Medications What How Much When Instructions Next Dose New hyoscyamine (Levsin 0.125 mg SL Tab) 1 Tablets By Mouth 4 times a day as needed for for spasm Pickup at [facility] New oxycodone (Roxicodone 5 mg Tab) 1 Tablets By Mouth Every 6 hours as needed for for pain Pickup at [facility] New tamsulosin (Flomax 0.4 mg Cap) 1 Capsules By Mouth Every day Pickup at [facility] Unchanged APAP/ butalbital/ caffeine (Esgic 325 mg-50 mg-40 mg oral capsule) 1 Capsules By Mouth Every 4 hours as needed for Headache Unchanged cetirizine (cetirizine 10 mg oral capsule) 1 Capsules By Mouth Every day as needed for for allergy symptoms Unchanged dulaglutide (Trulicity Pen 3 mg/ 0.5 mL subcutaneous solution) 3 Milligram Subcutaneous Every week weight loss Unchanged empagliflozin (Jardiance 25 mg oral tablet) 1 Tablets By Mouth Once a day (in the morning) weight loss Unchanged fludrocortisone (fludrocortisone 0.1 mg Tab) 1 Tablets By Mouth Every day Unchanged gabapentin (gabapentin 400 mg Cap) 1 Capsules By Mouth 2 times a day Unchanged hydrOXYzine (hydrOXYzine hydrochloride 50 mg oral tablet) 1 Tablets By Mouth 2 times a day Unchanged metoprolol (Lopressor 25 mg oral tablet) 1 Tablets By Mouth 2 times a day Unchanged midodrine (midodrine 2.5 mg oral tablet) 1 Tablets By Mouth 2 times a day Unchanged ondansetron (Zofran 4 mg Tab) 1 Tablets By Mouth Every 8 hours as needed for Nausea/Vomiting Unchanged pantoprazole (Pantoprazole [address] Tab) 1 Tablets By Mouth Every day Unchanged spironolactone (spironolactone 100 mg Tab) 1 Tablets By Mouth Every day Unchanged temazepam (temazepam 30 mg Cap) 1 Capsules By Mouth Once a day (at bedtime) as needed for for sleep Unchanged tizanidine (tizanidine 4 mg oral capsule) 2 Capsules By Mouth At bedtime Unchanged topiramate (topiramate 25 mg Tab) 1 Tablets By Mouth Every day Pharmacy Information [facility]: [address] [place], [place] [id number] [phone] Devices Implanted/Removed This Visit Notice: You have devices implanted this visit that may not be MRI compatible. Implanted CYSTOSCOPY W/ HOMIUM LASER Ureter R BENAVIDES URETERAL STENT CASCADE 6FR 10/19/2024 Education Materials [facility] [place], [place] Dr. Bradford Hagen Post-operative Instructions for Ureteroscopy, Laser Lithotripsy, Stone Extraction and Stent Placement There are no incisions or dressings to be concerned with, as the procedure was performed inside the urinary system. For 24 hours after surgery: ??? No driving or operating machinery ??? Do not make important decisions ??? Do not consume alcohol, sleeping pills Stent Placement You may have a stent which spans the distance between your bladder and your kidney, allowing urine to pass through. It prevents blockage from swelling, kidney stones in ureter (tube connecting the kidney to the bladder), or scars. The presence of the stent may cause: ??? Back or side pain, especially with urination ??? Frequent or urgent urination ??? Bladder pressure or pain ??? Blood in urine You may pass stone debris or small blood clots, which is expected. Drinking plenty of water to dilute the urine may help. If there is a thread coming out of urinary channel, be careful not to (more content not included)... Normal [facility] Comment on above: Result Comment: Elec tronically Signed By: Mily Singh\.br\Date and Time Signed: 10/19/24 13:38 EST Inpatient Patient Summaryon 10-19-2024 Inpatient Patient Summary Inpatient Patient Summary [place] [id number] [facility] Clinical Discharge Instructions PERSON INFORMATION Name: JOSELITO VIDAL PHYSICIANS Admitting Physician: YESENIA YUSUF MD Attending Physician: YESENIA YUSUF MD PCP: ELLIE INGRAM CNP Discharge Diagnosis: Comment: PATIENT EDUCATION INFORMATION Instructions: Medication Leaflets: Follow up: With: Address: When: YESENIA YUSUF [address] [place] [address] [phone] Business (1) Comments: 6 WKS WITH GERRY AGUIAR PRIOR Type Location Start [facility] Surgery [facility] Surgical Services 10/19/2024 1:00 PM 10/19/2024 1:30 PM Confirmed Pain Management - New (FT) .Pain Mg[facility] [place] 10/23/2024 10:15 AM 10/23/2024 10:45 AM Confirmed MEDICATION LIST New Medications [facility], [address] [place] [id number], [phone] hyoscyamine (Levsin 0.125 mg SL Tab) 1 Tablets By Mouth 4 times a day as needed for spasm. Refills: 0. oxycodone (Roxicodone 5 mg Tab) 1 Tablets By Mouth every 6 hours as needed for pain. Refills: 0. tamsulosin (Flomax 0.4 mg Cap) 1 Capsules By Mouth every day. Refills: 0. Medications to Continue with No Changes Other Medications APAP/butalbital/caffeine (Esgic 325 mg-50 mg-40 mg oral capsule) 1 Capsules By Mouth every 4 hours as needed Headache. cetirizine (cetirizine 10 mg oral capsule) 1 Capsules By Mouth every day as needed for allergy symptoms. dulaglutide (Trulicity Pen 3 mg/0.5 mL subcutaneous solution) 3 Milligram Subcutaneous every week. weight loss. duloxetine (duloxetine 60 mg oral delayed release capsule) 1 Capsules By Mouth every day. empagliflozin (Jardiance 25 mg oral tablet) 1 Tablets By Mouth once a day (in the morning). weight loss. fludrocortisone (fludrocortisone 0.1 mg Tab) 1 Tablets By Mouth every day. gabapentin (gabapentin 400 mg Cap) 1 Capsules By Mouth 2 times a day. hydrOXYzine (hydrOXYzine hydrochloride 50 mg oral tablet) 1 Tablets By Mouth 2 times a day. metoprolol (Lopressor 25 mg oral tablet) 1 Tablets By Mouth 2 times a day. midodrine (midodrine 2.5 mg oral tablet) 1 Tablets By Mouth 2 times a day. ondansetron (Zofran 4 mg Tab) 1 Tablets By Mouth every 8 hours as needed Nausea/Vomiting. pantoprazole (Pantoprazole [address] Tab) 1 Tablets By Mouth every day. spironolactone (spironolactone 100 mg Tab) 1 Tablets By Mouth every day. temazepam (temazepam 30 mg Cap) 1 Capsules By Mouth once a day (at bedtime) as needed for sleep. tizanidine (tizanidine 4 mg oral capsule) 2 Capsules By Mouth at bedtime. topiramate (topiramate 25 mg Tab) 1 Tablets By Mouth every day. Comment: Normal [facility] Main OR PACU I Recordon 10-01 Main OR PACU I Record Main OR PACU I Rec ord PACU Phase I Document Type FT Summary Primary Physician: YESENIA YUSUF MD Finalized Date/Time: 10/19/24 13:30:11 Pt. Name: JOSELITO VIDAL /Sex: 1970 Female Med Rec #: [id number] Physician: YESENIA YUSUF MD Financial #: [id number] Pt. Type: A Room/Bed: [place] [address] Admit/Disch: 10/19/24 08:59:52 - Institution: Case Times PACU I FT Pre-Care Text: Identifies barriers to communication and implements measures to provide psychological support Develops individualized plan of care, and ensures continuity of care Maintains patient's dignity and privacy, and maintains patient confidentiality Identifies and reports philosophical, cultural, and spiritual beliefs and values Identifies individual values and wishes concerning care Implements aseptic technique, and administers prescribed antibiotic therapy and immunizing agents as ordered Evaluates postoperative tissue perfusion Implements thermoregulation measures, and monitors body temperature Evaluates postoperative respiratory status Evaluates postoperative cardiac status Evaluates postoperative neurological status Assesses pain control, collaborated in initiating patient-controlled analgesia and implements alternative methods of pain control Verifies allergies, administers prescribed medications and solutions, evaluates response to medications Entry 1 In PACU I 10/19/24 12:46:00 Discharge from PACU 10/19/24 13:16:00 I Outcomes Met? Yes Last Modified By: Suki Mcbride RN 10/19/24 13:29:59 Post-Care Text: The patient demonstrates knowledge of the expected response to the operative or invasive procedure The patient's care is consistent with the individualized perioperative plan of care The patient's right to privacy is maintained The patient's value system, lifestyle, ethnicity, and culture are considered, respected, and incorporated into the perioperative plan of care The patient participates in decisions affecting his or her perioperative plan of care The patient is free from signs and symptoms of infection The patient has wound/tissue perfusion consistent with or improved from baseline levels established preoperatively The patient is at or returning to normothermia at the conclusion of the immediate postoperative period The patient's respiratory function is consistent with or improved from baseline levels established preoperatively The patient's cardiovascular status is consistent with or improved from baseline levels established preoperatively The patient's cardiovascular status is consistent with or improved from baseline levels established preoperatively The patient demonstrates and/or reports adequate pain control throughout the perioperative period The patient received appropriate medication(s), safely administered during the perioperative period Acuity Level PACU I FT Entry 1 Start Time 10/19/24 12:46:00 Stop Time 10/19/24 13:16:00 Acuity Level Acuity Level I Last Modified By: Suki Mcbride RN 10/19/24 13:29:42 Finalized By: Suki Mcbride RN Document Signatures Signed By: Suki Mcbride RN 10/19/24 13:30 Suki Mcbride RN 10/19/24 13:30 Normal [facility] Main OR PACU II Recordon Main OR PACU II Record Main OR PACU II R ecord PACU Phase II Document Type FT Summary Primary Physician: YESENIA YUSUF MD Finalized Date/Time: 10/19/24 14:59:43 Pt. Name: JOSELITO VIDAL/Sex: 1970 Female Med Rec #: [id number] Physician: YESENIA YUSUF MD Financial #: [id number] Pt. Type: A Room/Bed: [place] [address] Admit/Disch: 10/19/24 08:59:52 - Institution: Case Times PACU II FT Pre-Care Text: Identifies barriers to communication and implements measures to provide psychological support and determines knowledge level Develops individualized plan of care, and ensures continuity of care Maintains patient's dignity and privacy, and maintains patient confidentiality Identifies and reports philosophical, cultural, and spiritual beliefs and values Identifies individual values and wishes concerning care administers prescribed antibiotic therapy and immunizing agents as ordered, Evaluates postoperative tissue perfusion Implements thermoregulation measures, and monitors body temperature Evaluates postoperative respiratory status Evaluates postoperative cardiac status Evaluates postoperative neurological status Assesses pain control, collaborated in initiating patient-controlled analgesia and implements alternative methods of pain control Verifies allergies, administers prescribed medications and solutions, evaluates response to medications Entry 1 In PACU II 10/19/24 13:25:00 Discharge from PACU 10/19/24 14:50:00 II Outcomes Met? Yes Last Modified By: Mily Singh 10/19/24 14:59:42 Post-Care Text: The patient demonstrates knowledge of the expected response to the operative or invasive procedure The patient's care is consistent with the individualized perioperative plan of care The patient's right to privacy is maintained The patient's value system, lifestyle, ethnicity, and culture are considered, respected, and incorporated into the perioperative plan of care The patient participates in decisions affecting his or her perioperative plan of care. The patient is free from signs and symptoms of infection The patient has wound/tissue perfusion consistent with or improved from baseline levels established preoperatively The patient is at or returning to normothermia at the conclusion of the immediate postoperative period The patient's respiratory function is consistent with or improved from baseline levels established preoperatively The patient's cardiovascular status is consistent with or improved from baseline levels established preoperatively The patient's neurological status is consistent with or improved from baseline levels established preoperatively The patient demonstrates and/or reports adequate pain control throughout the perioperative period The patient received appropriate medication(s), safely administered during the perioperative period Finalized By: Mily Singh Document Signatures Signed By: Mily Singh 10/19/24 14:59 Normal [facility] Operative Reporton Operative Report Operative Report Patient: JOSELITO VIDAL Age: 53 years Sex: Female : 1970 Associated Diagnoses: None Author: YESENIA YUSUF MD Procedure SURGEON: Yesenia Yusuf MD PREOPERATIVE DIAGNOSIS: Right distal ureteral stone POSTOPERATIVE DIAGNOSIS: No obstruction noted on ureteroscopy PROCEDURE: Cystoscopy, right ureteroscopy, right ureteral stent placement FINDINGS: No presence of stone noted in the renal pelvis or distal ureter ANESTHESIA: General INTRAVENOUS FLUIDS: None ESTIMATED BLOOD LOSS: 0cc TUBES AND DRAINS: 6 x 26 cm double-J ureteral stent with strings SPECIMENS: None COMPLICATIONS: None INDICATIONS FOR PROCEDURE: Patient is a 53-year-old female with right-sided flank pain presented for the aforementioned procedure. CT abdomen pelvis showed a distal right ureteral stone and she presents for the aforementioned procedure. H&P was reviewed, informed consent was obtained, patient is a risk, benefits, alternatives of the procedure and wished to proceed. OPERATIVE DETAIL: She was brought to the operative suite and placed on continuous pulse oximetry and cardiac monitoring anesthesia. IV antibiotics including 2 g of Ancef was administered. She was then placed in the dorsolithotomy position and prepped and draped in normal sterile fashion. Timeout was performed confirming patient, procedure, side, all in the room agreed. A well-lubricated 22 Nauruan scopic sheath with 30 lens was sent to urethral meatus and advanced into the bladder. We then turned attention to the right ureteral orifice which we cannulated with a Glidewire. We then passed a second wire and over one of the wires went up with a semirigid into the distal ureter. We then meticulously assessed the distal ureter up to the mid and proximal ureter. We then went up to the renal pelvis with a semirigid scope and again did not visualize any stone. The scope was then slowly slowly withdrawn and again we did not visualize any stone. Over the remaining wire we placed a 6 x 26 cm double-J ureteral stent visualizing a curl in the renal pelvis and a curl in the bladder. Patient bladder was then emptied. Strings on the stent were then taped to the medial thigh using benzoin and Steri-Strips. PLAN: F/U in 6 weeks with KUB, renal ultrasound prior to office appointment. Normal [facility] Comment on above: Result Comment: Elec tronically Signed By: YESENIA YUSUF MD\.br\Date and Time Signed: 10/19/24 13:47 EST Outpatient Surgery Discharge Instructionon 10-19-2024 Outpatient Surgery Discharge Instruction Outpatient Surgery Discharge Instruction [place] [id number] Patient Discharge Instructions PERSON INFORMATION Name: JOSELITO VIDAL Date of : 1970 Current Date: 10/19/2024 09:58:15 PHYSICIANS Admitting Physician: YESENIA YUSUF MD Discharge Diagnosis: JOSELITO VIDAL has been given the following list of follow-up instructions, prescriptions, and patient education materials: PATIENT FOLLOW-UP INFORMATION Diet: Regular Discharge Activity: Ambulate as tolerated, Resume normal activities in 24 hours, Arrange for a responsible adult supervision for 24 hours, Expect mild pain, Expect minimal amount of drainage and/or bleeding, Activity as tolerated Discharge Restrictions: No driving for 24 hrs, Do not make important decisions for 24 hours, Do not drink alcoholic beverages for 24 hours Call Your Doctor For: Temperature above 101.5 degrees, Redness, swelling, or pus at operative site, Severe pain at the operative site, Persistent vomiting Additional Instructions: Remove stent in 5 days. Pull on black string and stent will come out Take tylenol 30 mins before stent pull Burning, blood in urine and discomfort expected w/ stent Take levsin prn for stent discomfort Take tylenol, motrin for pain 6 wks kub IF UNABLE TO CONTACT YOUR PHYSICIAN AND YOU FEEL IT IS AN EMERGENCY, GO TO THE NEAREST EMERGENCY ROOM OR CALL 911 YOU[facility] [place] RONDA, have received the attached patient education materials/instructions and have verbalized understanding: May we do a follow up call? Yes No I was present when discharge instructions were given Patient Signature ___ Date Clinican/Nurse Signature Date Follow up: With: Address: [facility] [address] [place] [address] [phone] Business (1) Comments: 6 WKS WITH GERRY AGUIAR Type Location Start [facility] Surgery [facility] Surgical Services 10/19/2024 1:00 PM 10/19/2024 1:30 PM Confirmed Pain Management - [facility] () FTJose Mgmt [place] 10/23/2024 10:15 AM 10/23/2024 10:45 AM Confirmed Pharmacy Information: You may receive a survey from [facility] asking you to rate your care experience. Your feedback is important and will help us understand what we do well and how we can improve the quality of care we provide to you, your loved ones and our community. It???s an honor to serve you. Thank you for choosing [facility] HERE ARE THE MEDICATION CHANGES THAT OCCURRED DURING YOUR HOSPITAL STAY New Medications [facility], [address] [place], [place] [id number], [phone] hyoscyamine (Levsin 0.125 mg SL Tab) 1 Tablets By Mouth 4 times a day as needed for spasm. Refills: 0. oxycodone (Roxicodone 5 mg Tab) 1 Tablets By Mouth every 6 hours as needed for pain. Refills: 0. tamsulosin (Flomax 0.4 mg Cap) 1 Capsules By Mouth every day. Refills: 0. Medications to Continue with No Changes Other Medications APAP/butalbital/caffeine (Esgic 325 mg-50 mg-40 mg oral capsule) 1 Capsules By Mouth every 4 hours as needed Headache. cetirizine (cetirizine 10 mg oral capsule) 1 Capsules By Mouth every day as needed for allergy symptoms. dulaglutide (Trulicity Pen 3 mg/0.5 mL subcutaneous solution) 3 Milligram Subcutaneous every week. weight loss. duloxetine (duloxetine 60 mg oral delayed release capsule) 1 Capsules By Mouth every day. empagliflozin (Jardiance 25 mg oral tablet) 1 Tablets By Mouth once a day (in the morning). weight loss. fludrocortisone (fludrocortisone 0.1 mg Tab) 1 Tablets By Mouth every day. gabapentin (gabapentin 400 mg Cap) 1 Capsules By Mouth 2 times a day. hydrOXYzine (hydrOXYzine hydrochloride 50 mg oral tablet) 1 Tablets By Mouth 2 times a day. metoprolol (Lopressor 25 mg oral tablet) 1 Tablets By Mouth 2 times a day. midodrine (midodrine 2.5 mg oral tablet) 1 Tablets By Mouth 2 times a day. ondansetron (Zofran 4 mg Tab) 1 Tablets By Mouth every 8 hours as needed Nausea/Vomiting. pantoprazole (Pantoprazole [address] Tab) 1 Tablets By Mouth every day. spironolactone (spironolactone 100 mg Tab) 1 Tablets By Mouth every day. temazepam (temazepam 30 mg Cap) 1 Capsules By Mouth once a day (at bedtime) as needed for sleep. tizanidine (tizanidine 4 mg oral capsule) 2 Capsules By Mouth at bedtime. topiramate (topiramate 25 mg Tab) 1 Tablets By Mouth every day. PATIENT EDUCATION INFORMATION Instructions: Medication Leaflets: [facility] Patient Education - Texton 0 10-19-2024 Patient Education - Text Patient Education - Text [facility] XR Chest 2 Viewson XR Chest 2 Views Exam Date/Time: 10/12/2024 14:26 EST Reason for Exam: P.A.T. Report IMPRESSION: Large nodular density right lower lung zone. Further characterization with dedicated CT of the chest is suggested. EXAMINATION: XR Chest 2 Views Clinical History: PAT. Comparison: None RESULT: Nodular density projecting within the right lower lung zone anteriorly, measuring around 2.5 x 2.6 x 1.2 cm. No priors are available for comparison. Differential includes benign and malignant etiologies. No distinct focal consolidation. No large pleural effusion. No pneumothorax. Probable linear scarring at the left lung base. Normal cardiomediastinal silhouette. No acute osseous findings. Degenerative changes. Ordering Provider: Hernandez Hutton FINAL REPORT Dictated: 10/13/2024 9:32 am Otto Meza MD. Signed (Electronic Signature): 10/13/2024 9:32 am Signed by: Otto Meza MD Transcribed by: GREGG Technologist: ADAM [facility] BMPon 10-12-2024 Anion gap [Moles/Vol] 10 mmol/L Normal 6-16 [facility] Comment on above: Performed By: #### 2 [id number] #### [facility] [address] [place] [address] Calcium [Mass/Vol] 8.6 mg/dL Low 8.9-11.1 [facility] Comment on above: Performed By: #### 2 [id number] #### [facility] [address] [place] [address] Chloride [Moles/Vol] 107 mmol/L Normal 101-111 [facility] Comment on above: Performed By: #### 2 [id number] #### [facility] [address] [place] [address] CO2 [Moles/Vol] 27 mmol/L Normal 21-31 [facility] Comment on above: Performed By: #### 2 [id number] #### [facility] [address] [place] [address] Creatinine [Mass/Vol] 0.9 mg/dL Normal 0.5-1.3 [facility] Comment on above: Performed By: #### 2 [id number] #### [facility] [address] [place] [address] Glucose [Mass/Vol] 73 mg/dL Normal 55-199 [facility] Comment on above: Performed By: #### 2 [id number] #### [facility] [address] [place] [address] Potassium [Moles/Vol] 4.3 mmol/L Normal 3.5-5.3 [facility] Comment on above: Performed By: #### 2 [id number] #### [facility] [address] [place] [address] Sodium [Moles/Vol] 140 mmol/L Normal 135-145 [facility] Comment on above: Performed By: #### 2 [id number] #### [facility] [address] [place] [address] Urea nitrogen [Mass/Vol] 10 mg/dL Normal 5-21 [facility] Comment on above: Performed By: #### 2 [id number] #### [facility] [address] [place] [address] Urea nitrogen/Creatinine [Mass ratio] 11 No Units Normal 10-20 [facility] Comment on above: Performed By: #### 2 [id number] #### [facility] [address] [place] [address] CBC w/ Auto Diffon 10-12- 5 Basophils/100 WBC (Bld) 0.6 % Normal 0.0-2.0 [facility] Comment on above: Performed By: #### 2 [id number] #### [facility] [address] [place] [address] Basophils/Leukocytes Auto (Bld) [Pure # fraction] 0.0 E9/L Normal 0.0-0.2 [facility] Comment on above: Performed By: #### 2 [id number] #### [facility] [address] [place] [address] Eosinophils (Bld) [#/Vol] 0.2 E9/L Normal 0.0-0.5 [facility] Comment on above: Performed By: #### 2 [id number] #### [facility] [address] [place] [address] Eosinophils/100 WBC (Bld) 2.8 % Normal 0.0-8.0 [facility] Comment on above: Performed By: #### 2 [id number] #### [facility] [address] [place] [address] Erythrocyte distribution width (RBC) [Ratio] 14.7 % High 10.9-14.2 [facility] Comment on above: Performed By: #### 2 [id number] #### [facility] [address] [place] [address] Hematocrit (Bld) [Volume fraction] 44.4 % Normal 34.0-46.0 [facility] Comment on above: Performed By: #### 2 [id number] #### [facility] [address] [place] [address] Hemoglobin (Bld) [Mass/Vol] 14.9 g/dL Normal 12.0-16.0 [facility] Comment on above: Performed By: #### 2 [id number] #### [facility] [address] [place] [address] Lymphocytes (Bld) [#/Vol] 2.2 E9/L Normal 1.0-4.0 [facility] Comment on above: Performed By: #### 2 [id number] #### [facility] [address] [place] [address] Lymphocytes/100 WBC (Bld) 29.1 % Normal 14.0-50.0 [facility] Comment on above: Performed By: #### 2 [id number] #### [facility] [address] [place] [address] MCH (RBC) [Entitic mass] 31.6 pg Normal 27.0-34.0 [facility] Comment on above: Performed By: #### 2 [id number] #### [facility] [address] [place] [address] MCHC (RBC) [Mass/Vol] 33.5 g/dL Normal 31.4-36.0 [facility] Comment on above: Performed By: #### 2 [id number] #### [facility] [address] [place] [address] MCV (RBC) [Entitic vol] 94.3 fL Normal 80.0-100.0 [facility] Comment on above: Performed By: #### 2 [id number] #### [facility] [address] [place] [address] Monocytes (Bld) [#/Vol] 0.7 E9/L Normal 0.2-1.0 [facility] Comment on above: Performed By: #### 2 [id number] #### [facility] [address] [place] [address] Neutrophils (Bld) [#/Vol] 4.4 E9/L Normal 2.0-7.5 [facility] Comment on above: Performed By: #### 2 [id number] #### [facility] [address] [place] [address] Neutrophils/100 WBC (Bld) 58.8 % Normal 36.0-75.0 [facility] Comment on above: Performed By: #### 2 [id number] #### [facility] [address] [place] [address] Platelet 359.0 E9/L Normal 150.0-500. 0 [facility] Comment on above: Performed By: #### 2 [id number] #### [facility] [address] [place] [address] Platelet mean volume (Bld) [Entitic vol] 7.7 fL Normal 6.4-10.8 [facility] Comment on above: Performed By: #### 2 [id number] #### [facility] [address] [place] [address] RBC (Bld) [#/Vol] 4.7 E12/L Normal 4.3-5.9 [facility] Comment on above: Performed By: #### 2 [id number] #### [facility] [address] [place] [id number] WBC corrected for nucl RBC Auto (Bld) [#/Vol] 7.5 E9/L Normal 4.0-11.0 [facility] Comment on above: Performed By: #### 2 [id number] #### [facility] [address] [place] [address] CHEMISTRYOrdered By: SYSTEM SYSTEM on 10-12-2024 Anion gap [Moles/Vol] 10 mmol/L Normal 6 - 16 mEq/L Remisol Chem Calcium [Mass/Vol] 8.6 mg/dL Low 8.9 - 11. 1 mg/dL Remisol Chem Chloride [Moles/Vol] 107 mmol/L Normal 101 - 1 11 mmol/L Remisol Chem CO2 [Moles/Vol] 27 mmol/L Normal 21 - 31 mmol/L Remisol Chem Creatinine [Mass/Vol] 0.9 mg/dL Normal 0.5 - 1.3 mg/dL Remisol Chem eGFR 76 mL/min/1.73 m2 Normal >=59mL/min /1.73 m2 Remisol Chem Glucose [Mass/Vol] 73 mg/dL Normal 55 - 199 mg/dL Remisol Chem Potassium [Moles/Vol] 4.3 mmol/L Normal 3.5 - 5.3 mmol/L Remisol Chem Sodium [Moles/Vol] 140 mmol/L Normal 135 - 145 mmol/L Remisol Chem Urea nitrogen [Mass/Vol] 10 mg/dL Normal 5 - 21 mg/dL Remisol Chem Urea nitrogen/Creatinine [Mass ratio] 11 mg/mg Normal 10 - 20 Remisol Chem COAGULATIONOrdered By: Abby Isidro on 10-12-2024 aPTT Coag (PPP) [Time] 33.5 s Normal 25.1 - 36.5 second(s) [facility] Auto Coag Comment on above: Interpretive Data: Juan Manuel mcakey 15 days - 4 weeks 1 - 5 months 6 - 11 months 1 - 5 years 6 - 10 years 11 - 17 years PTT Mean: 35.4 (27.6-45.6) Mean: 33.5 (24.8-40.7) Mean: 32.4 (25.1-40.7) Mean: 31.6 (24.0-39.2) Mean: 31.6 (26.9-38.7) Mean: 31.0 (24.6-38.4) Pediatric Reference ranges were obtained from a study by Kenney Goss et al. prepared from 1437 samples obtained at 7 different centers using the same coagulation reagent and instrumentation as [facility]. Currently there are no coagulation studies available worldwide for children to 14 days, and no normal ranges. Heparin therapeutic range (represented by Anti-Factor Xa activity of 0.2 - 0.4 U/mL) corresponds to PTT of 56.6 - 109.0 sec. INR Coag (PPP) [Relative time] 1.03 {INR} Invalid Interpretation Code [facility] Auto Coag Comment on above: Interpretive Data: I NR results are specifically intended to assess patients stabilized on long-term Anticoagulation therapy suggested INR s Less Intensive Anticoagulation 2.0 3.0 Conventional Range 3.0 4.5 PT Coag (PPP) [Time] 11.5 s Normal 9.4 - 1 2.5 second(s) [facility] Auto Coag Comment on above: Interpretive Data: 1 5 days - 4 weeks 1 - 5 months 6 -11 months 1 5 years 6 10 years 11 -17 years Mean: 11.2 (9.5 12.6) Mean: 11.0 (9.7 12.8) Mean: 11.0 (9.8 13.0) Mean: 11.3 (9.9 13.4) Mean: 11.7 (10.0 14.6) Mean: 11.8 (10.0 - 14.1) Pediatric Reference ranges were obtained from a study by Kenney Goss et al. prepared from 1437 samples obtained at 7 different centers using the same coagulation reagent and instrumentation as [facility]. Currently there are no coagulation studies available worldwide for children to 14 days, and no normal ranges. HEMATOLOGYOrdered By: SYSTEM SYSTEM on 10-12-2024 Basophils/100 WBC (Bld) 0.6 % Normal 0.0 - 2.0 % Remisol Heme Basophils/Leukocytes Auto (Bld) [Pure # fraction] 0.0 E9/L Normal 0.0 - 0.2 E9/L Remisol Heme Eosinophils (Bld) [#/Vol] 0.2 E9/L Normal 0.0 - 0.5 E9/L Remisol Heme Eosinophils/100 WBC (Bld) 2.8 % Normal 0.0 - 8.0 % Remisol Heme Erythrocyte distribution width (RBC) [Ratio] 14.7 % High 10.9 - 14.2 % Remisol Heme Hematocrit (Bld) [Volume fraction] 44.4 % Normal 34.0 - 46.0 % Remisol Heme Hemoglobin (Bld) [Mass/Vol] 14.9 g/dL Normal 12.0 - 16.0 gm/dL Remisol Heme Lymphocytes (Bld) [#/Vol] 2.2 E9/L Normal 1.0 - 4.0 E9/L Remisol Heme Lymphocytes/100 WBC (Bld) 29.1 % Normal 14.0 - 50.0 % Remisol Heme MCH (RBC) [Entitic mass] 31.6 pg Normal 27.0 - 34.0 pg Remisol Heme MCHC (RBC) [Mass/Vol] 33.5 g/dL Normal 31.4 - 36.0 gm/dL Remisol Heme MCV (RBC) [Entitic vol] 94.3 fL Normal 80.0 - 100.0 fL Remisol Heme Monocytes (Bld) [#/Vol] 0.7 E9/L Normal 0.2 - 1.0 E9/L Remisol Heme Monocytes/100 WBC (Bld) 8.7 % Normal 4.0 - 14.0 % Remisol Heme Neutrophils (Bld) [#/Vol] 4.4 E9/L Normal 2.0 - 7.5 E9/L Remisol Heme Neutrophils/100 WBC (Bld) 58.8 % Normal 36.0 - 75.0 % Remisol Heme Platelet 359.0 E9/L Normal 150.0 - 500.0 E9/L Remisol Heme Platelet mean volume (Bld) [Entitic vol] 7.7 fL Normal 6.4 - 10.8 fL Remisol Heme RBC (Bld) [#/Vol] 4.7 E12/L Normal 4.3 - 5.9 E12/L Remisol Heme WBC corrected for nucl RBC Auto (Bld) [#/Vol] 7.5 E9/L Normal 4.0 - 11.0 E9/L Remisol Heme PT & PTTon 10-12-2024 aPTT Coag (PPP) [Time] 33.5 second(s) Normal 25.1-36.5 [facility] Comment on above: Result Comment: Para meter 15 days - 4 weeks 1 - 5 months 6 - 11 months 1 - 5 years 6 - 10 years 11 - 17 years PTT Mean: 35.4 (27.6-45.6) Mean: 33.5 (24.8-40.7) Mean: 32.4 (25.1-40.7) Mean: 31.6 (24.0-39.2) Mean: 31.6 (26.9-38.7) Mean: 31.0 (24.6-38.4) Pediatric Reference ranges were obtained from a study by Kenney Goss et al. prepared from 1437 samples obtained at 7 different centers using the same coagulation reagent and instrumentation as [facility]. Currently there are no coagulation studies available worldwide for children to 14 days, and no normal ranges. Heparin therapeutic range (represented by Anti-Factor Xa activity of 0.2 - 0.4 U/mL) corresponds to PTT of 56.6 - 109.0 sec. Performed By: #### 1 [id number] #### [facility] [address] [place] [id number] INR Coag (PPP) [Relative time] 1.03 {INR} Invalid Interpretation Code [facility] Comment on above: Result Comment: INR results are specifically intended to assess patients stabilized on long-term Anticoagulation therapy suggested INR???s ???Less Intensive Anticoagulation??? 2.0 ??? 3.0 Conventional Range 3.0 ??? 4.5 Performed By: #### 1 [id number] #### [facility] [address] [place] [address] PT Coag (PPP) [Time] 11.5 second(s) Normal 9.4-12.5 [facility] Comment on above: Result Comment: 15 d ays - 4 weeks 1 - 5 months 6 -11 months 1 ??? 5 years 6 ??? 10 years 11 -17 years Mean: 11.2 (9.5 ??? 12.6) Mean: 11.0 (9.7 ??? 12.8) Mean: 11.0 (9.8 ??? 13.0) Mean: 11.3 (9.9 ??? 13.4) Mean: 11.7 (10.0 ??? 14.6) Mean: 11.8 (10.0 - 14.1) Pediatric Reference ranges were obtained from a study by sharda Astorga al. prepared from 1437 samples obtained at 7 different centers using the same coagulation reagent and instrumentation as [facility]. Currently there are no coagulation studies available worldwide for children to 14 days, and no normal ranges. Performed By: #### 1 [id number] #### [facility] [address] [place] [address] eGFRon 10-12-2024 eGFR 76 mL/min/1.73 m2 Normal >=59 [facility] Comment on above: Performed By: #### 1 [id number] #### [facility] [address] [place] [address] Ambulatory Visit Summaryon 0 10-09-2024 Ambulatory Visit Summary Ambulatory Visit Summary JOSELITO VIDAL :1970 Visit Date:10/09/2024 Ambulatory Visit Instructions Your Diagnosis Ureteral stone with hydronephrosis Your Care Team Attending Physician - YESENIA YUSUF MD Primary Care Physician - ELLIE INGRAM CNP This Is Your Medications List Contact prescribing physician if questions or concerns APAP/butalbital/caffeine (Esgic 325 mg-50 mg-40 mg oral capsule) Misc Prescription (PANTOPRAZOLE 20MG TAB) cetirizine (cetirizine 10 mg oral capsule) dulaglutide (Trulicity Pen 3 mg/0.5 mL subcutaneous solution) duloxetine (duloxetine 60 mg oral delayed release capsule) empagliflozin (Jardiance 25 mg oral tablet) fludrocortisone (fludrocortisone 0.1 mg Tab) gabapentin (gabapentin 400 mg Cap) hydrOXYzine (hydrOXYzine hydrochloride 50 mg oral tablet) metoprolol (Lopressor 25 mg oral tablet) ondansetron (Zofran 4 mg Tab) spironolactone (spironolactone 100 mg Tab) tizanidine (tizanidine 4 mg oral capsule) topiramate (topiramate 25 mg Tab) Procedures Performed Mammography (01/01/2023). Discharge Vitals Heart Rate (Peripheral) 81 Blood Pressure 107/77 Height 158 cm Height 62 in Weight 117.4 kg Weight 258.822 lb BMI 47.03 What to do next Scheduled Follow-Up Appointments Wednesday 9:45 AM EST With: Obdulio Matamoros DO Where: [facility] You Need to Schedule the Following Appointments Follow Up with TREVOR RAMIREZ, DEAN PATTERSON When: Where: Medications What How Much When Instructions Unchanged APAP/ butalbital/ caffeine (Esgic 325 mg-50 mg-40 mg oral capsule) By Mouth Every 4 hours Contact prescribing physician if questions or concerns Unchanged cetirizine (cetirizine 10 mg oral capsule) 1 Capsules By Mouth Every day as needed for for allergy symptoms Contact prescribing physician if questions or concerns Unchanged dulaglutide (Trulicity Pen 3 mg/ 0.5 mL subcutaneous solution) Contact prescribing physician if questions or concerns Unchanged duloxetine (duloxetine 60 mg oral delayed release capsule) Contact prescribing physician if questions or concerns Unchanged empagliflozin (Jardiance 25 mg oral tablet) Contact prescribing physician if questions or concerns Unchanged fludrocortisone (fludrocortisone 0.1 mg Tab) By Mouth Every day Contact prescribing physician if questions or concerns Unchanged gabapentin (gabapentin 400 mg Cap) 1 Capsules Contact prescribing physician if questions or concerns Unchanged hydrOXYzine (hydrOXYzine hydrochloride 50 mg oral tablet) By Mouth 4 times a day Contact prescribing physician if questions or concerns Unchanged metoprolol (Lopressor 25 mg oral tablet) Contact prescribing physician if questions or concerns Unchanged Misc Prescription (PANTOPRAZOLE 20MG TAB) 0 Contact prescribing physician if questions or concerns Unchanged ondansetron (Zofran 4 mg Tab) By Mouth Every 8 hours Contact prescribing physician if questions or concerns Unchanged spironolactone (spironolactone 100 mg Tab) By Mouth Every day Contact prescribing physician if questions or concerns Unchanged tizanidine (tizanidine 4 mg oral capsule) Contact prescribing physician if questions or concerns Unchanged topiramate (topiramate 25 mg Tab) By Mouth 2 times a day Contact prescribing physician if questions or concerns Allergies No Known Medication Allergies Problems Ongoing - Any problem that you are currently receiving treatment for. Arthritis of right knee Disorder of autonomic nervous system Dizziness Generalized anxiety disorder Hypokalemia Low back pain Lumbar spondylosis Polypharmacy Postural orthostatic tachycardia syndrome Ureteral stone with hydronephrosis Patient Survey You may receive a survey via text or e-mail asking about your office visit. Please share your experience with us by completing your survey. We appreciate your feedback and thank you for choosing us for your care. Education Materials Ureteroscopy Ureteroscopy is a procedure to check for and treat problems inside part of the urinary tract. In this procedure, a long rigid or flexible tube with a lens and light at the end (ureteroscope) is used to look at the inside of the kidneys and the ureters. The ureters are the tubes that carry urine from the kidneys to the bladder. The ureteroscope is inserted into one or both of the ureters. You may need this procedure if you have frequent urinary tract infections (UTIs), blood in your urine, or a stone in one or both of your ureters. A ureteroscopy can be done: ??? To find the cause of urine blockage in a ureter and to evaluate other abnormalities inside the ureters or kidneys. ??? To remove stones. ??? To remove or treat growths of tissue (polyps), abnormal tissue, and some types of tumors. ??? To remove a tissue sample and check it for disease under a microscope (biopsy). Tell a hea (more content not included)... Normal [facility] Provider Letteron 10-09-2024 Provider Letter Provider Letter October 09, 2024 JOSELITO [place] [id number] : 1970 To Whom It May Concern, Please excuse Blank Niño (caregiver for above patient) from work. Date of Illness: From: 10/19/24 To: 10/20/24 May Return to Work On: 10/20/24 Sincerely, Dr Yesenia Yusuf MD [facility] Urology Office/Clinic Noteon 10-09-2024 Urology Office/Clinic Note Urology Office/Clinic Note HPI Staff 53 year old female new patient here for follow up to [facility] 09/23/24 due to ureteral stone CT abdomen/pelvis 09/23/24- 5mm obstructing UVJ with mild to moderate upstream dilatation low back pain ongoing since the ER visit, states she feels low right side pressure in her abdomen. Patient states last year she had an episode where she was unable to urinate for 24hrs was cathed at ER and was fine afterwards and did not have to keep catheter. Denies any bothersome urinary symptoms at this time. History of Present Illness Tests reviewed: reviewed labs, CT, external records. I have reviewed the previous health record information and history for this patient from external provider I have reviewed and verified the staff HPI to be accurate for this encounter. There have been no associated fever, chills, flank pain, or blood in the urine. Denies any urinary infections since last encounter. Review of Systems ROS - Provider Constitutional: denies weight loss, denies hot flashes. Eyes: denies eye problems. Gastrointestinal: denies nausea, denies vomiting. Cardiovascular: denies chest pain or angina. Integumentary: no dryness Musculoskeletal: denies musculoskeletal symptoms. ENMT: denies otolaryngeal symptoms. Respiratory: no shortness of breath. Heme/Lymph: denies easy bleeding tendency, denies easy bruising tendency. Psychiatric: no confusion, no anxiety. Genitourinary: See HPI. Physical Exam General Appearance: alert , no acute distress, well nourished, well developed female. Head: normocephalic . Eyes: normal orbit and globe. ENMT: normal examination of external ears. Psychiatric: cooperative, affect appropriate for age, normal judgement, euthymic mood. Assessment/Plan 53 yo female referred by REBEKAH Maldonado due to kidney stone and JOSE. Denies hx of DE or CVA. Not on anticoagulation. BBSQ 7 Portions of this record may have been created with voice recognition artificial intelligence software, specifically [employer] and or [employer]. Substitutions may have occurred due to the inherent limitations of voice recognition and artificial intelligence software. 1. Ureteral stone with hydronephrosis (N13.2: Hydronephrosis with renal and ureteral calculous obstruction) Pt presented to [facility] ER 09/23/24 due to R sided flank pain. CT AP w con 09/23/24 - obstructing 5 mm R UVJ stone with mild to moderate upstream dilatation. Kidney function - Cr 1.0, eGFR 68. Still experiencing back pain. Pt states pain does not resolve. Grandmother had kidney stones. First stone event. Of note, pt states that she presented to the ER a year ago with UR for 24 hrs. Pt states she was cathed at the ER and had no issues with urination afterwards. Discussed management options including medical expulsive therapy x 4-6 week vs intervention including extracorporeal shockwave lithotripsy vs ureteroscopy with laser lithotripsy/stone basket extraction possible stent. Risks/benefits of each were discussed including but not limited to: MET- renal damage, pain or infection; ESWL- bleeding, hematoma, pain, infection, inability to break up the stone, ureteral obstruction, cardiac arrhythmias, damage to surrounding structures and need for additional procedures; ureteroscopy - bleeding, pain, infection, damage to surrounding structures, ureteral perforation, stricture, inability to treat the stone and need for additional procedures. If a stent is placed, pt understands this is not permanent and needs to be removed or exchanged within 3 months to prevent encrustation, infection, permanent renal damage and need for more invasive procedures. Pt willing to proceed with surgical mgmt. Will provide pt with urine strainer today. Pt to call and cancel surgery if she sees stone pass. Pt to keep stone to be sent for analysis. -Strainer provided today, pt to start straining urine, pt to call if she passes stone -Will schedule cysto, R URS, R RPG, R laser litho, R stent placement. Risks as above She presents with an impacted distal right ureteral stone with hydronephrosis. We discussed doing a right endoscopy, lithotripsy, stent placement if patient does not pass stone in a few days. She was sent home with a strainer as well. She will strain her urine. She is scheduled for October 19 for surgery. Follow-up With When Contact Information TREVOR RAMIREZ, DEAN PATTERSON Additional Instructions: Schedule laser litho Patient Education Ureteroscopy I, Suly Burrell, personally scribed for Dr. Avery on 10/09/2024 11:41:27. . Documentation recorded by the scribe, Suly Burrell, accurately reflects the services(s) I performed and decisions made by me. Authenticated by Dr. Yusuf on 10/09/2024 12:01:37. Problem List/Past Medical History Ongoing Arthritis of right knee Disorder of auton (more content not included)... Normal [facility] Comment on above: Result Comment: Elec tronically Signed By: YESENIA YUSUF MD\.br\Date and Time Signed: 10/09/24 12:01 EST\.br\Electronically Co-Signed By: Suly Burrell\.br\Date and Time Co-Signed: 10/09/24 11:42 EST ECG 12 lead (Clinic Performe d)on 07-31-2024 NSR no ischemia [facility] Work Phone: T3 Totalon 06-24-2024 T3 [Mass/Vol] 94 ng/dL Invalid Interpretation Code [id number] [facility] Comment on above: Result Comment: Perf ormed at: [facility] [address] [id number] PhD Cameron Melara Performed By: #### 1 [id number] #### [facility] [address] [place] [address] CBC w/ Auto Diffon 10-25-202 4 Basophils/100 WBC (Bld) 1.0 % Normal 0.0-2.0 [facility] Comment on above: Performed By: #### 2 [id number] #### [facility] [address] [place] [address] Basophils/Leukocytes Auto (Bld) [Pure # fraction] 0.1 E9/L Normal 0.0-0.2 [facility] Comment on above: Performed By: #### 2 [id number] #### [facility] [address] [place] [address] Eosinophils (Bld) [#/Vol] 0.2 E9/L Normal 0.0-0.5 [facility] Comment on above: Performed By: #### 2 [id number] #### [facility] [address] [place] [address] Eosinophils/100 WBC (Bld) 2.5 % Normal 0.0-8.0 [facility] Comment on above: Performed By: #### 2 [id number] #### [facility] [address] [place] [address] Erythrocyte distribution width (RBC) [Ratio] 14.1 % Normal 10.9-14.2 [facility] Comment on above: Performed By: #### 2 [id number] #### [facility] [address] [place] [address] Hematocrit (Bld) [Volume fraction] 42.5 % Normal 34.0-46.0 [facility] Comment on above: Performed By: #### 2 [id number] #### [facility] [address] [place] [address] Hemoglobin (Bld) [Mass/Vol] 14.4 g/dL Normal 12.0-16.0 [facility] Comment on above: Performed By: #### 2 [id number] #### [facility] [address] [place] [address] Lymphocytes (Bld) [#/Vol] 2.3 E9/L Normal 1.0-4.0 [facility] Comment on above: Performed By: #### 2 [id number] #### [facility] [address] [place] [address] Lymphocytes/100 WBC (Bld) 28.9 % Normal 14.0-50.0 [facility] Comment on above: Performed By: #### 2 [id number] #### [facility] [address] [place] [address] MCH (RBC) [Entitic mass] 31.4 pg Normal 27.0-34.0 [facility] Comment on above: Performed By: #### 2 [id number] #### [facility] [address] [place] [address] MCHC (RBC) [Mass/Vol] 33.9 g/dL Normal 31.4-36.0 [facility] Comment on above: Performed By: #### 2 [id number] #### [facility] [address] [place] [address] MCV (RBC) [Entitic vol] 92.8 fL Normal 80.0-100.0 [facility] Comment on above: Performed By: #### 2 [id number] #### [facility] [address] [place] [address] Monocytes (Bld) [#/Vol] 0.7 E9/L Normal 0.2-1.0 [facility] Comment on above: Performed By: #### 2 [id number] #### [facility] [address] [place] [address] Neutrophils (Bld) [#/Vol] 4.7 E9/L Normal 2.0-7.5 [facility] Comment on above: Performed By: #### 2 [id number] #### [facility] [address] [place] [address] Neutrophils/100 WBC (Bld) 58.7 % Normal 36.0-75.0 [facility] Comment on above: Performed By: #### 2 [id number] #### [facility] [address] [place] [address] Platelet 424.0 E9/L Normal 150.0-500. 0 [facility] Comment on above: Performed By: #### 2 [id number] #### [facility] [address] [place] [address] Platelet mean volume (Bld) [Entitic vol] 7.6 fL Normal 6.4-10.8 [facility] Comment on above: Performed By: #### 2 [id number] #### [facility] [address] [place] [address] RBC (Bld) [#/Vol] 4.6 E12/L Normal 4.3-5.9 [facility] Comment on above: Performed By: #### 2 [id number] #### [facility] [address] [place] [address] WBC corrected for nucl RBC Auto (Bld) [#/Vol] 7.9 E9/L Normal 4.0-11.0 [facility] Comment on above: Performed By: #### 2 [id number] #### [facility] [address] [place] [address] CMPon 06-23-2024 Albumin [Mass/Vol] 4.1 g/dL Normal 3.3-5.0 [facility] Comment on above: Performed By: #### 2 [id number] #### [facility] [address] [place] [address] Albumin/Globulin (S) [Mass conc ratio] 1.6 Normal 1.1-2.2 [facility] Comment on above: Performed By: #### 2 [id number] #### [facility] [address] [place] [address] ALP [Catalytic activity/Vol] 111 Int._Unit/L High 21-98 [facility] Comment on above: Performed By: #### 2 [id number] #### [facility] [address] [place] [address] ALT No additional P-5'-P [Catalytic activity/Vol] 14 Int._Unit/L Normal 6-46 [facility] Comment on above: Performed By: #### 2 [id number] #### [facility] [address] [place] [address] Anion gap [Moles/Vol] 12 mmol/L Normal 6-16 [facility] Comment on above: Performed By: #### 2 [id number] #### [facility] [address] [place] [address] AST [Catalytic activity/Vol] 12 Int._Unit/L Normal 5-43 [facility] Comment on above: Performed By: #### 2 [id number] #### [facility] [address] [place] [address] Bilirubin [Mass/Vol] 0.4 mg/dL Normal 0.0-1.1 [facility] Comment on above: Performed By: #### 2 [id number] #### [facility] [address] [place] [address] Calcium [Mass/Vol] 9.3 mg/dL Normal 8.9-11.1 [facility] Comment on above: Performed By: #### 2 [id number] #### [facility] [address] [place] [address] Chloride [Moles/Vol] 108 mmol/L Normal 101-111 [facility] Comment on above: Performed By: #### 2 [id number] #### [facility] [address] [place] [address] CO2 [Moles/Vol] 25 mmol/L Normal 21-31 [facility] Comment on above: Performed By: #### 2 [id number] #### [facility] [address] [place] [address] Creatinine [Mass/Vol] 1.1 mg/dL Normal 0.5-1.3 [facility] Comment on above: Performed By: #### 2 [id number] #### [facility] [address] [place] [address] Globulin (S) [Mass/Vol] 2.5 g/dL Normal 1.4-4.0 [facility] Comment on above: Performed By: #### 2 [id number] #### [facility] [address] [place] [address] Glucose [Mass/Vol] 85 mg/dL Normal 55-199 [facility] Comment on above: Performed By: #### 2 [id number] #### [facility] [address] [place] [address] Potassium [Moles/Vol] 4.4 mmol/L Normal 3.5-5.3 [facility] Comment on above: Performed By: #### 2 [id number] #### [facility] [address] [place] [address] Protein [Mass/Vol] 6.6 g/dL Normal 6.0-7.8 [facility] Comment on above: Performed By: #### 2 [id number] #### [facility] [address] [place] [address] Sodium [Moles/Vol] 141 mmol/L Normal 135-145 [facility] Comment on above: Performed By: #### 2 [id number] #### [facility] [address] [place] [address] Urea nitrogen [Mass/Vol] 13 mg/dL Normal 5-21 [facility] Comment on above: Performed By: #### 2 [id number] #### [facility] [address] [place] [address] Urea nitrogen/Creatinine [Mass ratio] 12 No Units Normal 10-20 [facility] Comment on above: Performed By: #### 2 [id number] #### [facility] [address] [place] [address] [id number] 06-23-2024 HbA1c (Bld) [Mass fraction] 5.8 % Normal <=5.9 [facility] Comment on above: Performed By: #### 7 [id number] #### [facility] [address] [place] [address] Lipid Panelon 06-23-2024 Cholesterol [Mass/Vol] 185 mg/dL Normal 120-200 [facility] Comment on above: Performed By: #### 2 922007 #### [facility] [address] [place] [address] Cholesterol in HDL [Mass/Vol] 40 mg/dL Invalid Interpretation Code [facility] Comment on above: Result Comment: '>= 60 LOW RISK' '<= 40 HIGH RISK' Performed By: #### 2 360530 #### [facility] [address] [place] [address] Cholesterol in LDL [Mass/Vol] 132 mg/dL High <=129 [facility] Comment on above: Performed By: #### 2 001241 #### [facility] [address] [place] [address] Cholesterol in VLDL [Mass/Vol] 43 mg/dL High 7-40 [facility] Comment on above: Performed By: #### 2 [id number] #### [facility] [address] [place] [address] Triglyceride [Mass/Vol] 213 mg/dL High <=149 [facility] Comment on above: Performed By: #### 2 595580 #### [facility] [address] [place] [address] T4 & TSHon 06-23-2024 TSH Qn 0.98 m[IU]/L Normal 0.34-5.60 [facility] Comment on above: Performed By: #### 1 [id number] #### [facility] [address] [place] [address] T4 [Mass/Vol] 8.2 microgram/dL Normal 4.6-9.1 [facility] Comment on above: Performed By: #### 1 [id number] #### [facility] [address] [place] [address] Vit B12on 06-23-2024 Cobalamin (Vitamin B12) [Mass/Vol] 208 pg/mL Normal 50-1500 [facility] Comment on above: Performed By: #### 2 [id number] #### [facility] [address] [place] [address] eGFRon 06-23-2024 eGFR 60 mL/min/1.73 m2 Normal >=59 [facility] Comment on above: Performed By: #### 1 [id number] #### [facility] [address] [place] [address] CBC w/ Auto Diffon 4 Basophils/100 WBC (Bld) 1.1 % Normal 0.0-2.0 [facility] Comment on above: Performed By: #### 2 781597 #### [facility] [address] [place] [address] Basophils/Leukocytes Auto (Bld) [Pure # fraction] 0.1 E9/L Normal 0.0-0.2 [facility] Comment on above: Performed By: #### 2 051878 #### [facility] [address] [place] [address] Eosinophils (Bld) [#/Vol] 0.2 E9/L Normal 0.0-0.5 [facility] Comment on above: Performed By: #### 2 955531 #### [facility] [address] [place] [address] Eosinophils/100 WBC (Bld) 2.7 % Normal 0.0-8.0 [facility] Comment on above: Performed By: #### 2 030961 #### [facility] [address] [place] [address] Erythrocyte distribution width (RBC) [Ratio] 15.0 % High 10.9-14.2 [facility] Comment on above: Performed By: #### 2 641192 #### [facility] [address] [place] [address] Hematocrit (Bld) [Volume fraction] 45.5 % Normal 34.0-46.0 [facility] Comment on above: Performed By: #### 2 420576 #### [facility] [address] [place] [address] Hemoglobin (Bld) [Mass/Vol] 15.4 g/dL Normal 12.0-16.0 [facility] Comment on above: Performed By: #### 2 428725 #### [facility] [address] [place] [address] [place] [address] Lymphocytes (Bld) [#/Vol] 2.5 E9/L Normal 1.0-4.0 [facility] Comment on above: Performed By: #### 2 158368 #### [facility] [address] [place] [address] Lymphocytes/100 WBC (Bld) 27.7 % Normal 14.0-50.0 [facility] Comment on above: Performed By: #### 2 448972 #### [facility] [address] [place] [address] MCH (RBC) [Entitic mass] 31.4 pg Normal 27.0-34.0 [facility] Comment on above: Performed By: #### 2 046569 #### [facility] [address] [place] [address] MCHC (RBC) [Mass/Vol] 33.9 g/dL Normal 31.4-36.0 [facility] Comment on above: Performed By: #### 2 398153 #### [facility] [address] [place] [address] MCV (RBC) [Entitic vol] 92.5 fL Normal 80.0-100.0 [facility] Comment on above: Performed By: #### 2 806522 #### [facility] [address] [place] [address] Monocytes (Bld) [#/Vol] 0.7 E9/L Normal 0.2-1.0 [facility] Comment on above: Performed By: #### 2 239696 #### [facility] [address] [place] [address] Neutrophils (Bld) [#/Vol] 5.4 E9/L Normal 2.0-7.5 [facility] Comment on above: Performed By: #### 2 426941 #### [facility] [address] [place] [address] Neutrophils/100 WBC (Bld) 60.7 % Normal 36.0-75.0 [facility] Comment on above: Performed By: #### 2 466926 #### [facility] [address] [place] [address] Platelet 446.0 E9/L Normal 150.0-500. 0 [facility] Comment on above: Performed By: #### 2 459915 #### [facility] [address] [place] [address] Platelet mean volume (Bld) [Entitic vol] 7.9 fL Normal 6.4-10.8 [facility] Comment on above: Performed By: #### 2 503813 #### [facility] [address] [place] [address] RBC (Bld) [#/Vol] 4.9 E12/L Normal 4.3-5.9 [facility] Comment on above: Performed By: #### 2 100452 #### [facility] [address] [place] [address] WBC corrected for nucl RBC Auto (Bld) [#/Vol] 8.9 E9/L Normal 4.0-11.0 [facility] Comment on above: Performed By: #### 2 568449 #### [facility] [address] [place] [address] CMPon 05-04-2024 Albumin [Mass/Vol] 4.1 g/dL Normal 3.3-5.0 [facility] Comment on above: Performed By: #### 2 445196 #### [facility] [address] [place] [address] Albumin/Globulin (S) [Mass conc ratio] 1.4 Normal 1.1-2.2 [facility] Comment on above: Performed By: #### 2 692795 #### [facility] [address] [place] [address] ALP [Catalytic activity/Vol] 134 Int._Unit/L High 21-98 [facility] Comment on above: Performed By: #### 2 732891 #### [facility] [address] [place] [address] ALT No additional P-5'-P [Catalytic activity/Vol] 18 Int._Unit/L Normal 6-46 [facility] Comment on above: Performed By: #### 2 762831 #### [facility] [address] [place] [address] Anion gap [Moles/Vol] 13 mmol/L Normal 6-16 [facility] Comment on above: Performed By: #### 2 253495 #### [facility] [address] [place] [address] AST [Catalytic activity/Vol] 13 Int._Unit/L Normal 5-43 [facility] Comment on above: Performed By: #### 2 231408 #### [facility] [address] [place] [address] Bilirubin [Mass/Vol] 0.4 mg/dL Normal 0.0-1.1 [facility] Comment on above: Performed By: #### 2 064292 #### [facility] [address] [place] [address] Calcium [Mass/Vol] 9.3 mg/dL Normal 8.9-11.1 [facility] Comment on above: Performed By: #### 2 917307 #### [facility] [address] [place] [address] Chloride [Moles/Vol] 103 mmol/L Normal 101-111 [facility] Comment on above: Performed By: #### 2 568405 #### [facility] [address] [place] [address] CO2 [Moles/Vol] 27 mmol/L Normal 21-31 [facility] Comment on above: Performed By: #### 2 891020 #### [facility] [address] [place] [address] Creatinine [Mass/Vol] 1.2 mg/dL Normal 0.5-1.3 [facility] Comment on above: Performed By: #### 2 039615 #### [facility] [address] [place] [address] Globulin (S) [Mass/Vol] 2.9 g/dL Normal 1.4-4.0 [facility] Comment on above: Performed By: #### 2 834491 #### [facility] [address] [place] [address] Glucose [Mass/Vol] 103 mg/dL Normal 55-199 [facility] Comment on above: Performed By: #### 2 519627 #### [facility] [address] [place] [address] Potassium [Moles/Vol] 4.9 mmol/L Normal 3.5-5.3 [facility] Comment on above: Performed By: #### 2 516917 #### [facility] [address] [place] [address] Protein [Mass/Vol] 7.0 g/dL Normal 6.0-7.8 [facility] Comment on above: Performed By: #### 2 939665 #### [facility] [address] [place] [address] Sodium [Moles/Vol] 138 mmol/L Normal 135-145 [facility] Comment on above: Performed By: #### 2 757547 #### [facility] [address] [place] [address] Urea nitrogen [Mass/Vol] 11 mg/dL Normal 5-21 [facility] Comment on above: Performed By: #### 2 888258 #### [facility] [address] [place] [address] Urea nitrogen/Creatinine [Mass ratio] 9 No Units Low 10-20 [facility] Comment on above: Performed By: #### 2 799939 #### [facility] [address] [place] [address] Lipid Panelon 05-04-2024 Cholesterol [Mass/Vol] 177 mg/dL Normal 120-200 [facility] Comment on above: Performed By: #### 2 442987 #### [facility] [address] [place] [address] Cholesterol in HDL [Mass/Vol] 43 mg/dL Invalid Interpretation Code [facility] Comment on above: Result Comment: '>= 60 LOW RISK' '<= 40 HIGH RISK' Performed By: #### 2 415700 #### [facility] [address] [place] [address] Cholesterol in LDL [Mass/Vol] 125 mg/dL Normal <=129 [facility] Comment on above: Performed By: #### 2 763068 #### [facility] [address] [place] [address] Cholesterol in VLDL [Mass/Vol] 33 mg/dL Normal 7-40 [facility] Comment on above: Performed By: #### 2 811698 #### [facility] [address] [place] [address] Triglyceride [Mass/Vol] 165 mg/dL High <=149 [facility] Comment on above: Performed By: #### 2 894567 #### [facility] [address] [place] [address] T4 & TSHon 05-04-2024 TSH Qn 1.28 m[IU]/L Normal 0.34-5.60 [facility] Comment on above: Performed By: #### 1 0295792 #### [facility] [address] [place] [address] T4 [Mass/Vol] 9.2 microgram/dL High 4.6-9.1 [facility] Comment on above: Performed By: #### 1 1131877 #### [facility] [address] [place] [address] Vit B12on 05-04-2024 Cobalamin (Vitamin B12) [Mass/Vol] 186 pg/mL Normal 50-1500 [facility] Comment on above: Performed By: #### 2 775463 #### [facility] [address] [place] [address] eGFRon 05-04-2024 eGFR 54 mL/min/1.73 m2 Low >=59 [facility] Comment on above: Order Comment: Order added by Discern Expert. Performed By: #### 1 [id number] #### [facility] [address] [place] [address] FLUORO FOR SURGICAL PROCEDUR ESon 03-21-2024 FLUORO FOR SURGICAL PROCEDURES Radiology exam is complete. No Radiologist dictation. Please follow up with ordering provider. Final result Normal [facility] Physician Orderon 02-23-2024 Physician Order [id number] Normal [facility] CMPon 01-21-2024 Albumin [Mass/Vol] 3.7 g/dL Normal 3.3-5.0 [facility] Comment on above: Performed By: #### 2 375068 #### [facility] [address] [place] [address] Albumin/Globulin (S) [Mass conc ratio] 1.6 Normal 1.1-2.2 [facility] Comment on above: Performed By: #### 2 103880 #### [facility] [address] [place] [address] ALP [Catalytic activity/Vol] 114 Int._Unit/L High 21-98 [facility] Comment on above: Performed By: #### 2 921958 #### [facility] [address] [place] [address] ALT No additional P-5'-P [Catalytic activity/Vol] 18 Int._Unit/L Normal 6-46 [facility] Comment on above: Performed By: #### 2 700871 #### [facility] [address] [place] [address] Anion gap [Moles/Vol] 9 mmol/L Normal 6-16 [facility] Comment on above: Performed By: #### 2 248761 #### [facility] [address] [place] [address] AST [Catalytic activity/Vol] 13 Int._Unit/L Normal 5-43 [facility] Comment on above: Performed By: #### 2 493122 #### [facility] [address] [place] [address] Bilirubin [Mass/Vol] 0.3 mg/dL Normal 0.0-1.1 [facility] Comment on above: Performed By: #### 2 859941 #### [facility] [address] [place] [address] Calcium [Mass/Vol] 8.5 mg/dL Low 8.9-11.1 [facility] Comment on above: Performed By: #### 2 064199 #### [facility] [address] [place] [address] Chloride [Moles/Vol] 106 mmol/L Normal 101-111 [facility] Comment on above: Performed By: #### 2 365695 #### [facility] [address] [place] [address] CO2 [Moles/Vol] 27 mmol/L Normal 21-31 [facility] Comment on above: Performed By: #### 2 111256 #### [facility] [address] [place] [address] Creatinine [Mass/Vol] 0.9 mg/dL Normal 0.5-1.3 [facility] Comment on above: Performed By: #### 2 867348 #### [facility] [address] [place] [address] Globulin (S) [Mass/Vol] 2.3 g/dL Normal 1.4-4.0 [facility] Comment on above: Performed By: #### 2 303834 #### [facility] [address] [place] [address] Glucose [Mass/Vol] 107 mg/dL Normal 55-199 [facility] Comment on above: Performed By: #### 2 962847 #### [facility] [address] [place] [address] Potassium [Moles/Vol] 4.3 mmol/L Normal 3.5-5.3 [facility] Comment on above: Performed By: #### 2 426467 #### [facility] [address] [place] [address] Protein [Mass/Vol] 6.0 g/dL Normal 6.0-7.8 [facility] Comment on above: Performed By: #### 2 065374 #### [facility] [address] [place] [address] Sodium [Moles/Vol] 138 mmol/L Normal 135-145 [facility] Comment on above: Performed By: #### 2 504685 #### [facility] [address] [place] [address] Urea nitrogen [Mass/Vol] 11 mg/dL Normal 5-21 [facility] Comment on above: Performed By: #### 2 931910 #### [facility] [address] [place] [address] Urea nitrogen/Creatinine [Mass ratio] 12 No Units Normal 10-20 [facility] Comment on above: Performed By: #### 2 259444 #### [facility] [address] [place] [address] Physician Orderon 01-21-2024 Physician Order [id number]#[id number] Normal [facility] eGFRon 01-21-2024 eGFR 77 mL/min/1.73 m2 Normal >=59 [facility] Comment on above: Order Comment: Order added by Discern Expert. Performed By: #### 1 [id number] #### [facility] [address] [place] [address] [place] GUIDED FOR SPINE INJECTon 12-23-2023 FL GUIDED FOR SPINE INJECT Final result Normal [facility] BRITNI w/Reflex if POSon 2023 Nuclear Ab Ql (S) Negative Invalid Interpretation Code Negative [facility] Comment on above: Result Comment: Perf ormed at: [facility] [address] [id number] PhD Cameron Melara Performed By: #### 7 [id number], 0143392, [id number], 5068764 #### [facility] [address] [place] [address] RF Quanton 11-26-2023 Rheumatoid factor Qn [IU]/mL Invalid Interpretation Code <14.0 [facility] Comment on above: Result Comment: Perf ormed at: [facility] [place] [id number] [place], [place] [id number] PhD Cameron Melara Performed By: #### 1 6174097, 36646032, 97031392, 0255298 #### [facility] [address] [place] [address] CMPon 11-24-2023 Albumin [Mass/Vol] 4.3 g/dL Normal 3.3-5.0 [facility] Comment on above: Performed By: #### 1 3968955, 37835629, 71045612, 2653771 #### [facility] [address] [place] [id number] Albumin/Globulin (S) [Mass conc ratio] 1.9 Normal 1.1-2.2 [facility] Comment on above: Performed By: #### 1 2873829, 20322648, 83244433, 2054412 #### [facility] [address] [place] [address] ALP [Catalytic activity/Vol] 91 Int._Unit/L Normal 21-98 [facility] Comment on above: Performed By: #### 1 5191685, 19690135, 49766463, 4069968 #### [facility] [address] [place] [address] ALT No additional P-5'-P [Catalytic activity/Vol] 17 Int._Unit/L Normal 6-46 [facility] Comment on above: Performed By: #### 1 3959574, 03015112, 64205079, 8526926 #### [facility] [address] [place] [address] Anion gap [Moles/Vol] 12 mmol/L Normal 6-16 [facility] Comment on above: Performed By: #### 1 4318200, 56981030, 78159401, 4684977 #### [facility] [address] [place] [address] AST [Catalytic activity/Vol] 13 Int._Unit/L Normal 5-43 [facility] Comment on above: Performed By: #### 1 2793128, 71592198, 78513029, 4345558 #### [facility] [address] [place] [address] Bilirubin [Mass/Vol] 0.4 mg/dL Normal 0.0-1.1 [facility] Comment on above: Performed By: #### 1 5236290, 34308216, 69196811, 3000087 #### [facility] [address] [place] [address] Calcium [Mass/Vol] 9.8 mg/dL Normal 8.9-11.1 [facility] Comment on above: Performed By: #### 1 7943185, 91680706, 33138402, 0289104 #### [facility] [address] [place] [address] Chloride [Moles/Vol] 107 mmol/L Normal 101-111 [facility] Comment on above: Performed By: #### 1 2898984, 04549689, 74562633, 4671509 #### [facility] [address] [place] [address] CO2 [Moles/Vol] 26 mmol/L Normal 21-31 [facility] Comment on above: Performed By: #### 1 7381539, 17538982, 87801129, 6290483 #### [facility] [address] [place] [address] Creatinine [Mass/Vol] 1.1 mg/dL Normal 0.5-1.3 [facility] Comment on above: Performed By: #### 1 6974681, 71734690, 51081859, 3111329 #### [facility] [address] [place] [address] Globulin (S) [Mass/Vol] 2.3 g/dL Normal 1.4-4.0 [facility] Comment on above: Performed By: #### 1 2435932, 46375671, 94199757, 1478833 #### [facility] [address] [place] [address] Glucose [Mass/Vol] 64 mg/dL Normal 55-199 [facility] Comment on above: Performed By: #### 1 6256217, 91971201, 53134075, 2396840 #### [facility] [address] [place] [address] Potassium [Moles/Vol] 4.5 mmol/L Normal 3.5-5.3 [facility] Comment on above: Performed By: #### 1 8905858, 06934907, 29733729, 4362221 #### [facility] [address] [place] [address] Protein [Mass/Vol] 6.6 g/dL Normal 6.0-7.8 [facility] Comment on above: Performed By: #### 1 2517407, 59727703, 36127905, 8771358 #### [facility] [address] [place] [address] Sodium [Moles/Vol] 140 mmol/L Normal 135-145 [facility] Comment on above: Performed By: #### 1 8106773, 14236658, 13785888, 1000961 #### [facility] [address] [place] [address] Urea nitrogen [Mass/Vol] 11 mg/dL Normal 5-21 [facility] Comment on above: Performed By: #### 1 7351803, 96165168, 55387515, 7497900 #### [facility] [address] [place] [address] Urea nitrogen/Creatinine [Mass ratio] 10 No Units Normal 10-20 [facility] Comment on above: Performed By: #### 1 4634368, 21468020, 29050753, 6330412 #### [facility] [address] [place] [address] eGFRon 11-24-2023 eGFR 60 mL/min/1.73 m2 Normal >=59 [facility] Comment on above: Order Comment: Order added by Discern Expert. Performed By: #### 1 2576254, 78775893, 27523896, 4955942 #### [facility] [address] [place], [place] [address] CMPon 11-10-2023 Albumin [Mass/Vol] 3.7 g/dL Normal 3.3-5.0 [facility] Comment on above: Performed By: #### 1 8440505, 7583558 #### [facility] [address] [place], [place] [address] Albumin/Globulin (S) [Mass conc ratio] 1.9 Normal 1.1-2.2 [facility] Comment on above: Performed By: #### 1 9180161, 4404066 #### [facility] [address] [place], [place] [address] ALP [Catalytic activity/Vol] 76 Int._Unit/L Normal 21-98 [facility] Comment on above: Performed By: #### 1 8181497, 4722607 #### [facility] [address] [place] [address] ALT No additional P-5'-P [Catalytic activity/Vol] 14 Int._Unit/L Normal 6-46 [facility] Comment on above: Performed By: #### 1 5544340, 0089512 #### [facility] [address] [place] [address] Anion gap [Moles/Vol] 10 mmol/L Normal 6-16 [facility] Comment on above: Performed By: #### 1 5275346, 1863927 #### [facility] [address] [place] [address] AST [Catalytic activity/Vol] 10 Int._Unit/L Normal 5-43 [facility] Comment on above: Performed By: #### 1 2995659, 2399912 #### [facility] [address] [place] [address] Bilirubin [Mass/Vol] 0.4 mg/dL Normal 0.0-1.1 [facility] Comment on above: Performed By: #### 1 5719109, 1700217 #### [facility] [address] [place] [address] Calcium [Mass/Vol] 8.6 mg/dL Low 8.9-11.1 [facility] Comment on above: Performed By: #### 1 0341306, 4942461 #### [facility] [address] [place] [address] Chloride [Moles/Vol] 109 mmol/L Normal 101-111 [facility] Comment on above: Performed By: #### 1 2049232, 4628558 #### [facility] [address] [place] [address] CO2 [Moles/Vol] 27 mmol/L Normal 21-31 [facility] Comment on above: Performed By: #### 1 8414155, 8951713 #### [facility] [address] [place] [address] Creatinine [Mass/Vol] 1.0 mg/dL Normal 0.5-1.3 [facility] Comment on above: Performed By: #### 1 6527422, 8468438 #### [facility] [address] [place] [address] Globulin (S) [Mass/Vol] 2.0 g/dL Normal 1.4-4.0 [facility] Comment on above: Performed By: #### 1 8290648, 1184433 #### [facility] [address] [place] [address] Glucose [Mass/Vol] 78 mg/dL Normal 55-199 [facility] Comment on above: Performed By: #### 1 0516078, 6717489 #### [facility] [address] [place] [facility] [address] Potassium [Moles/Vol] 3.9 mmol/L Normal 3.5-5.3 [facility] Comment on above: Performed By: #### 1 4486706, 6707416 #### [facility] [address] [place] [address] Protein [Mass/Vol] 5.7 g/dL Low 6.0-7.8 [facility] Comment on above: Performed By: #### 1 7057310, 4511376 #### [facility] [address] [place] [address] Sodium [Moles/Vol] 142 mmol/L Normal 135-145 [facility] Comment on above: Performed By: #### 1 1314394, 7884207 #### [facility] [address] [place] [address] Urea nitrogen [Mass/Vol] 9 mg/dL Normal 5-21 [facility] Comment on above: Performed By: #### 1 4988807, 6804905 #### [facility] [address] [place] [address] Urea nitrogen/Creatinine [Mass ratio] 9 No Units Low 10-20 [facility] Comment on above: Performed By: #### 1 8326629, 7761190 #### [facility] [address] [place] [address] Physician Orderon 11-10-2023 Physician Order [id number]#1.00TIFF Normal [facility] eGFRon 11-10-2023 eGFR 68 mL/min/1.73 m2 Normal >=59 [facility] Comment on above: Order Comment: Order added by Discern Expert. Performed By: #### 1 [id number], [id number] #### [facility] [address] [place] [address] CBC w/ Auto Diffon 4 Basophil Absolute 0.1 E9/L Normal 0.0-0.2 [facility] Comment on above: Performed By: #### 7 [id number], 6944733, 69626053, 9254218 #### [facility] [address] [place] [address] Basophils/100 WBC (Bld) 1.1 % Normal 0.0-2.0 [facility] Comment on above: Performed By: #### 7 47756059, 6580039, 10464707, 8279349 #### [facility] [address] [place] [address] Eos Absolute 0.2 E9/L Normal 0.0-0.5 [facility] Comment on above: Performed By: #### 7 71476624, 4171002, 99817273, 2402101 #### [facility] [address] [place] [address] Eosinophils/100 WBC (Bld) 1.9 % Normal 0.0-8.0 [facility] Comment on above: Performed By: #### 7 54286345, 8564625, 27364386, 0959769 #### [facility] [address] [place] [address] Erythrocyte distribution width (RBC) [Ratio] 16.6 % High 10.9-14.2 [facility] Comment on above: Performed By: #### 7 66758160, 2690409, 20113645, 1584618 #### [facility] [address] [place] [address] Hematocrit (Bld) [Volume fraction] 39.0 % Normal 34.0-46.0 [facility] Comment on above: Performed By: #### 7 16561833, 1324915, 93855921, 5316787 #### [facility] [address] [place] [address] Hemoglobin (Bld) [Mass/Vol] 12.2 g/dL Normal 12.0-16.0 [facility] Comment on above: Performed By: #### 7 55992098, 2295295, 75847374, 4612467 #### [facility] [address] [place] [address] Lymph Absolute 1.9 E9/L Normal 1.0-4.0 [facility] Comment on above: Performed By: #### 7 00826682, 8083677, 37925800, 6057602 #### [facility] [address] [place] [address] Lymphocytes/100 WBC (Bld) 17.8 % Normal 14.0-50.0 [facility] Comment on above: Performed By: #### 7 71911807, 7484315, 30443105, 0323949 #### [facility] [address] [place] [address] MCH (RBC) [Entitic mass] 30.4 pg Normal 27.0-34.0 [facility] Comment on above: Performed By: #### 7 64288842, 2872038, 35933583, 1476915 #### [facility] [address] [place] [address] MCHC (RBC) [Mass/Vol] 31.4 g/dL Normal 31.4-36.0 [facility] Comment on above: Performed By: #### 7 30711224, 4716116, 27652702, 1952373 #### [facility] [address] [place] [address] MCV (RBC) [Entitic vol] 96.7 fL Normal 80.0-100.0 [facility] Comment on above: Performed By: #### 7 23442250, 7077804, 89771629, 3675005 #### [facility] [address] [place] [address] Hyde Absolute 0.9 E9/L Normal 0.2-1.0 [facility] Comment on above: Performed By: #### 7 50983264, 0984577, 25294308, 7114977 #### [facility] [address] [place] [address] Monocytes/100 WBC (Bld) 8.4 % Normal 4.0-14.0 [facility] Comment on above: Performed By: #### 7 85140923, 6964697, 08865777, 2204974 #### [facility] [address] [place] [address] Neutro Absolute 7.5 E9/L Normal 2.0-7.5 [facility] Comment on above: Performed By: #### 7 21570068, 2418448, 49340943, 9811291 #### [facility] [address] [place] [address] Neutro Auto 70.8 % Normal 36.0-75.0 [facility] Comment on above: Performed By: #### 7 87408322, 0451796, 34896741, 6211290 #### [facility] [address] [place] [address] Platelet 391.0 E9/L Normal 150.0-500. 0 [facility] Comment on above: Performed By: #### 7 55476906, 5636223, 57096560, 7301096 #### [facility] [address] [place] [address] Platelet mean volume (Bld) [Entitic vol] 7.4 fL Normal 6.4-10.8 [facility] Comment on above: Performed By: #### 7 46169450, 2463333, 59233507, 5620180 #### [facility] [address] [place] [address] RBC 4.0 E12/L Low 4.3-5.9 [facility] Comment on above: Performed By: #### 7 33906241, 3389793, 97845368, 2169929 #### [facility] [address] [place] [address] WBC 10.6 E9/L Normal 4.0-11.0 [facility] Comment on above: Performed By: #### 7 50449827, 6982974, 04266175, 5684035 #### [facility] [address] [place] [address] CMPon 10-26-2023 Albumin [Mass/Vol] 3.7 g/dL Normal 3.3-5.0 [facility] Comment on above: Performed By: #### 7 82720597, 5613296, 24385947, 5460813 #### [facility] [address] [place] [address] Albumin/Globulin [Mass ratio] 1.5 {ratio} Normal 1.1-2.2 [facility] Comment on above: Performed By: #### 7 42408531, 8016828, 69547375, 6260599 #### [facility] [address] [place] [address] Alk Phos 66 Int._Unit/L Normal 21-98 [facility] Comment on above: Performed By: #### 7 19521205, 3442082, 31746705, 0967334 #### [facility] [address] [place] [address] ALT 19 Int._Unit/L Normal 6-46 [facility] Comment on above: Performed By: #### 7 75310590, 4469410, 17453916, 0031582 #### [facility] [address] [place] [address] Anion gap [Moles/Vol] 12 mmol/L Normal 6-16 [facility] Comment on above: Performed By: #### 7 84053108, 1949919, 43060946, 4301982 #### [facility] [address] [place] [address] AST 11 Int._Unit/L Normal 5-43 [facility] Comment on above: Performed By: #### 7 46904466, 4996050, 08138032, 2534647 #### [facility] [address] [place] [address] Bili Total 0.4 mg/dL Normal 0.0-1.1 [facility] Comment on above: Performed By: #### 7 30383538, 1608862, 18975688, 3877842 #### [facility] [address] [place] [address] BUN/Creat Ratio 9 No Units Low 10-20 [facility] Comment on above: Performed By: #### 7 68562878, 4429912, 48266440, 8852480 #### [facility] [address] [place] [address] Calcium [Mass/Vol] 8.9 mg/dL Normal 8.9-11.1 [facility] Comment on above: Performed By: #### 7 09763213, 7738747, 08234539, 2589209 #### [facility] [address] [place] [address] Chloride [Moles/Vol] 108 mmol/L Normal 101-111 [facility] Comment on above: Performed By: #### 7 02820119, 3071823, 50286043, 7264287 #### [facility] [address] [place] [address] CO2 [Moles/Vol] 26 mmol/L Normal 21-31 [facility] Comment on above: Performed By: #### 7 90924481, 5252273, 15753664, 9841720 #### [facility] [address] [place] [address] Creatinine [Mass/Vol] 1.2 mg/dL Normal 0.5-1.3 [facility] Comment on above: Performed By: #### 7 34779879, 8611285, 41598923, 7472041 #### [facility] [address] [place] [address] Globulin (S) [Mass/Vol] 2.4 g/dL Normal 1.4-4.0 [facility] Comment on above: Performed By: #### 7 62417215, 7583160, 02873852, 9748387 #### [facility] [address] [place] [address] Glucose [Mass/Vol] 87 mg/dL Normal 55-199 [facility] Comment on above: Performed By: #### 7 52603410, 9839808, 55868930, 5116751 #### [facility] [address] [place] [address] Potassium [Moles/Vol] 3.8 mmol/L Normal 3.5-5.3 [facility] Comment on above: Performed By: #### 7 59041447, 9853566, 95511869, 2604798 #### [facility] [address] [place] [address] Protein [Mass/Vol] 6.1 g/dL Normal 6.0-7.8 [facility] Comment on above: Performed By: #### 7 06041615, 3311684, 26948576, 9419295 #### [facility] [address] [place] [address] Sodium [Moles/Vol] 142 mmol/L Normal 135-145 [facility] Comment on above: Performed By: #### 7 49281479, 5845800, 54802947, 4770071 #### [facility] [address] [place] [address] Urea nitrogen [Mass/Vol] 11 mg/dL Normal 5-21 [facility] Comment on above: Performed By: #### 7 26515704, 7138809, 10922032, 3603074 #### [facility] [address] [place] [address] Physician Orderon 10-26-2023 Physician Order [id number]#[id number] Normal [facility] eGFRon 10-26-2023 eGFR 54 mL/min/1.73 m2 Low >=59 [facility] Comment on above: Order Comment: Order added by Discern Expert. Performed By: #### 7 89975028, 1040722, 45456876, 1486844 #### [facility] [address] [place] [address] CBC w/ Auto Diffon 4 Basophil Absolute 0.1 E9/L Normal 0.0-0.2 [facility] Comment on above: Performed By: #### 7 10671219, 1447946, 22648547, 7956794 #### [facility] [address] [place] [address] Basophils/100 WBC (Bld) 0.3 % Normal 0.0-2.0 [facility] Comment on above: Performed By: #### 7 28227006, 0852214, 19474025, 2327803 #### [facility] [address] [place] [address] Eos Absolute 0.1 E9/L Normal 0.0-0.5 [facility] Comment on above: Performed By: #### 7 26293092, 1376233, 46520093, 9181621 #### [facility] [address] [place] [address] Eosinophils/100 WBC (Bld) 0.3 % Normal 0.0-8.0 [facility] Comment on above: Performed By: #### 7 44137460, 7668806, 35144680, 9689589 #### [facility] [address] [place] [address] Erythrocyte distribution width (RBC) [Ratio] 15.1 % High 10.9-14.2 [facility] Comment on above: Performed By: #### 7 58000622, 4773493, 50967047, 7405307 #### [facility] [address] [place] [address] Hematocrit (Bld) [Volume fraction] 37.0 % Normal 34.0-46.0 [facility] Comment on above: Performed By: #### 7 75978461, 3150481, 72559977, 4865832 #### [facility] [address] [place] [address] Hemoglobin (Bld) [Mass/Vol] 11.8 g/dL Low 12.0-16.0 [facility] Comment on above: Performed By: #### 7 71837716, 6639865, 71052119, 1447113 #### [facility] [address] [place] [address] Lymph Absolute 4.6 E9/L High 1.0-4.0 [facility] Comment on above: Performed By: #### 7 83870023, 5440851, 80740516, 1494468 #### [facility] [address] [place] [address] Lymphocytes/100 WBC (Bld) 26.1 % Normal 14.0-50.0 [facility] Comment on above: Performed By: #### 7 11303061, 3101254, 42664206, 6287138 #### [facility] [address] [place] [address] MCH (RBC) [Entitic mass] 30.5 pg Normal 27.0-34.0 [facility] Comment on above: Performed By: #### 7 82199387, 3588745, 06550128, 5844445 #### [facility] [address] [place] [address] MCHC (RBC) [Mass/Vol] 31.9 g/dL Normal 31.4-36.0 [facility] Comment on above: Performed By: #### 7 03794595, 6379834, 62810618, 2221843 #### [facility] [address] [place] [address] MCV (RBC) [Entitic vol] 95.7 fL Normal 80.0-100.0 [facility] Comment on above: Performed By: #### 7 50299392, 5402921, 15239395, 8584062 #### [facility] [address] [place] [address] Hyde Absolute 1.6 E9/L High 0.2-1.0 [facility] Comment on above: Performed By: #### 7 92938890, 7522771, 11998276, 8018377 #### [facility] [address] [place] [address] Monocytes/100 WBC (Bld) 9.2 % Normal 4.0-14.0 [facility] Comment on above: Performed By: #### 7 66021437, 5928302, 64256680, 3014866 #### [facility] [address] [place] [address] Neutro Absolute 11.4 E9/L High 2.0-7.5 [facility] Comment on above: Performed By: #### 7 52791121, 1297216, 15708445, 7062725 #### [facility] [address] [place] [address] Neutro Auto 64.1 % Normal 36.0-75.0 [facility] Comment on above: Performed By: #### 7 81804102, 2823434, 01158202, 5866488 #### [facility] [address] [place] [address] Platelet 453.0 E9/L Normal 150.0-500. 0 [facility] Comment on above: Performed By: #### 7 67491575, 0153176, 51259407, 4779216 #### [facility] [address] [place] [address] Platelet mean volume (Bld) [Entitic vol] 7.4 fL Normal 6.4-10.8 [facility] Comment on above: Performed By: #### 7 67259372, 4667809, 32859570, 5176341 #### [facility] [address] [place] [address] RBC 3.9 E12/L Low 4.3-5.9 [facility] Comment on above: Performed By: #### 7 10307792, 9638292, 41171433, 4729795 #### [facility] [address] [place] [address] WBC 17.8 E9/L High 4.0-11.0 [facility] Comment on above: Result Comment: Slid e reviewed by KD Performed By: #### 7 61891804, 1384759, 72102716, 7746631 #### [facility] [address] [place] [address] CMPon 10-22-2023 Albumin [Mass/Vol] 3.5 g/dL Normal 3.3-5.0 [facility] Comment on above: Performed By: #### 7 28846627, 1561916, 11972269, 4132362 #### [facility] [address] [place] [address] Albumin/Globulin [Mass ratio] 1.6 {ratio} Normal 1.1-2.2 [facility] Comment on above: Performed By: #### 7 57943385, 5278638, 10701114, 5458106 #### [facility] [address] [place] [address] Alk Phos 54 Int._Unit/L Normal 21-98 [facility] Comment on above: Performed By: #### 7 04484893, 2059554, 67862629, 5139154 #### [facility] [address] [place] [address] ALT 21 Int._Unit/L Normal 6-46 [facility] Comment on above: Performed By: #### 7 43849552, 0297340, 92210203, 7816460 #### [facility] [address] [place] [address] Anion gap [Moles/Vol] 10 mmol/L Normal 6-16 [facility] Comment on above: Performed By: #### 7 23297442, 0676297, 54977428, 9678596 #### [facility] [address] [place] [address] AST 10 Int._Unit/L Normal 5-43 [facility] Comment on above: Performed By: #### 7 03231374, 9787276, 47973338, 2071189 #### [facility] [address] [place] [address] Bili Total 0.3 mg/dL Normal 0.0-1.1 [facility] Comment on above: Performed By: #### 7 96950677, 1547009, 22777706, 7489417 #### [facility] [address] [place] [address] BUN/Creat Ratio 19 No Units Normal 10-20 [facility] Comment on above: Performed By: #### 7 61187558, 6584155, 62279648, 8291759 #### [facility] [address] [place] [address] Calcium [Mass/Vol] 8.7 mg/dL Low 8.9-11.1 [facility] Comment on above: Performed By: #### 7 11290739, 5473540, 56658899, 4374419 #### [facility] [address] [place] [address] Chloride [Moles/Vol] 108 mmol/L Normal 101-111 [facility] Comment on above: Performed By: #### 7 61840257, 2072698, 26316082, 4548269 #### [facility] [address] [place] [address] CO2 [Moles/Vol] 28 mmol/L Normal 21-31 [facility] Comment on above: Performed By: #### 7 75367341, 8484948, 98941535, 2885753 #### [facility] [address] [place] [address] Creatinine [Mass/Vol] 1.3 mg/dL Normal 0.5-1.3 [facility] Comment on above: Performed By: #### 7 52953132, 0048994, 38327194, 3424026 #### [facility] [address] [place] [address] Globulin (S) [Mass/Vol] 2.2 g/dL Normal 1.4-4.0 [facility] Comment on above: Performed By: #### 7 33777331, 6272169, 80243537, 2116992 #### [facility] [address] [place] [address] Glucose [Mass/Vol] 77 mg/dL Normal 55-199 [facility] Comment on above: Performed By: #### 7 61370531, 5968355, 63999583, 2989047 #### [facility] [address] [place] [address] Potassium [Moles/Vol] 4.2 mmol/L Normal 3.5-5.3 [facility] Comment on above: Performed By: #### 7 91243925, 5346368, 69112164, 2667608 #### [facility] [address] [place] [address] Protein [Mass/Vol] 5.7 g/dL Low 6.0-7.8 [facility] Comment on above: Performed By: #### 7 43143414, 5156642, 73213340, 9079987 #### [facility] [address] [place] [address] Sodium [Moles/Vol] 142 mmol/L Normal 135-145 [facility] Comment on above: Performed By: #### 7 03720453, 0166288, 58574754, 2579812 #### [facility] [address] [place] [address] Urea nitrogen [Mass/Vol] 25 mg/dL High 5-21 [facility] Comment on above: Performed By: #### 7 07935508, 7352309, 31219579, 4984095 #### [facility] [address] [place] [address] [id number] 10-22-2023 HbA1c (Bld) [Mass fraction] 6.2 % High <=5.9 [facility] Comment on above: Performed By: #### 7 39640328, 0887052, 72236458, 6770281 #### [facility] [address] [place] [address] Physician Orderon 10-22-2023 Physician Order [id number]#[id number] Normal [facility] eGFRon 10-22-2023 eGFR 49 mL/min/1.73 m2 Low >=59 [facility] Comment on above: Order Comment: Order added by Discern Expert. Performed By: #### 7 97034572, 0505645, 22544820, 3959091 #### [facility] [address] [place] [address] CBC w/ Auto Diffon Basophil Absolute 0.1 E9/L Normal 0.0-0.2 [facility] Comment on above: Performed By: #### 7 53754604, 9522680, 73410476, 1995207 #### [facility] [address] [place] [address] Basophils/100 WBC (Bld) 0.3 % Normal 0.0-2.0 [facility] Comment on above: Performed By: #### 7 69497180, 9728784, 47566200, 0837317 #### [facility] [address] [place] [address] Eos Absolute 0.2 E9/L Normal 0.0-0.5 [facility] Comment on above: Performed By: #### 7 11696055, 3031066, 83478498, 8417890 #### [facility] [address] [place] [address] Eosinophils/100 WBC (Bld) 1.1 % Normal 0.0-8.0 [facility] Comment on above: Performed By: #### 7 88697267, 7885815, 55799891, 6667453 #### [facility] [address] [place] [address] Erythrocyte distribution width (RBC) [Ratio] 14.6 % High 10.9-14.2 [facility] Comment on above: Performed By: #### 7 31588000, 0365174, 21152076, 1194222 #### [facility] [address] [place] [address] Hematocrit (Bld) [Volume fraction] 40.0 % Normal 34.0-46.0 [facility] Comment on above: Performed By: #### 7 98938904, 7128479, 13268130, 6986310 #### [facility] [address] [place] [address] Hemoglobin (Bld) [Mass/Vol] 12.8 g/dL Normal 12.0-16.0 [facility] Comment on above: Performed By: #### 7 55549365, 7645869, 12127203, 7985116 #### [facility] [address] [place] [address] Lymph Absolute 2.9 E9/L Normal 1.0-4.0 [facility] Comment on above: Performed By: #### 7 14441186, 7174654, 23389512, 3172542 #### [facility] [address] [place] [address] Lymphocytes/100 WBC (Bld) 18.7 % Normal 14.0-50.0 [facility] Comment on above: Performed By: #### 7 74867503, 2222204, 45351606, 0875076 #### [facility] [address] [place] [address] MCH (RBC) [Entitic mass] 30.8 pg Normal 27.0-34.0 [facility] Comment on above: Performed By: #### 7 02546566, 9932301, 76358249, 7049288 #### [facility] [address] [place] [address] MCHC (RBC) [Mass/Vol] 32.4 g/dL Normal 31.4-36.0 [facility] Comment on above: Performed By: #### 7 69361384, 7037227, 81273046, 8199258 #### [facility] [address] [place] [address] MCV (RBC) [Entitic vol] 95.0 fL Normal 80.0-100.0 [facility] Comment on above: Performed By: #### 7 04131795, 0604505, 19204922, 7603886 #### [facility] [address] [place] [address] Hyde Absolute 1.1 E9/L High 0.2-1.0 [facility] Comment on above: Performed By: #### 7 21321316, 4379357, 56239876, 4849283 #### [facility] [address] [place] [address] Monocytes/100 WBC (Bld) 6.7 % Normal 4.0-14.0 [facility] Comment on above: Performed By: #### 7 96636853, 4184551, 40831290, 6755864 #### [facility] [address] [place] [address] Neutro Absolute 11.5 E9/L High 2.0-7.5 [facility] Comment on above: Performed By: #### 7 49483200, 3351951, 14577455, 6950035 #### [facility] [address] [place] [address] Neutro Auto 73.2 % Normal 36.0-75.0 [facility] Comment on above: Performed By: #### 7 97378412, 9517372, 27551994, 2109299 #### [facility] [address] [place] [address] Platelet 549.0 E9/L High 150.0-500. 0 [facility] Comment on above: Performed By: #### 7 89566443, 7945047, 97469743, 8578778 #### [facility] [address] [place] [address] Platelet mean volume (Bld) [Entitic vol] 7.7 fL Normal 6.4-10.8 [facility] Comment on above: Performed By: #### 7 43479372, 0526654, 97032900, 4361338 #### [facility] [address] [place] [address] RBC 4.2 E12/L Low 4.3-5.9 [facility] Comment on above: Performed By: #### 7 79109106, 7460418, 76583633, 3901948 #### [facility] [address] [place] [address] WBC 15.7 E9/L High 4.0-11.0 [facility] Comment on above: Performed By: #### 7 73046636, 6040723, 10033382, 0355944 #### [facility] [address] [place] [address] CMPon 10-13-2023 Albumin [Mass/Vol] 3.9 g/dL Normal 3.3-5.0 [facility] Comment on above: Performed By: #### 7 77233002, 2082094, 88251208, 1689647 #### [facility] [address] [place] [address] Albumin/Globulin [Mass ratio] 1.5 {ratio} Normal 1.1-2.2 [facility] Comment on above: Performed By: #### 7 36892681, 3594102, 83530342, 7103571 #### [facility] [address] [place] [address] Alk Phos 82 Int._Unit/L Normal 21-98 [facility] Comment on above: Performed By: #### 7 93068666, 0829518, 68967944, 7519303 #### [facility] [address] [place] [address] ALT 15 Int._Unit/L Normal 6-46 [facility] Comment on above: Performed By: #### 7 31452484, 7247369, 57532880, 6163351 #### [facility] [address] [place] [address] Anion gap [Moles/Vol] 17 mmol/L High 6-16 [facility] Comment on above: Performed By: #### 7 80703007, 5037476, 62706007, 3054030 #### [facility] [address] [place] [address] AST 9 Int._Unit/L Normal 5-43 [facility] Comment on above: Performed By: #### 7 36332284, 0559211, 11505797, 5630764 #### [facility] [address] [place] [address] Bili Total 0.3 mg/dL Normal 0.0-1.1 [facility] Comment on above: Performed By: #### 7 51212920, 7624313, 07631901, 9177077 #### [facility] [address] [place] [address] BUN/Creat Ratio 15 No Units Normal 10-20 [facility] Comment on above: Performed By: #### 7 14444969, 2246351, 11290646, 5174855 #### [facility] [address] [place] [address] Calcium [Mass/Vol] 9.1 mg/dL Normal 8.9-11.1 [facility] Comment on above: Performed By: #### 7 67969354, 0762607, 01296455, 0414518 #### [facility] [address] [place] [address] Chloride [Moles/Vol] 102 mmol/L Normal 101-111 [facility] Comment on above: Performed By: #### 7 03317196, 3298414, 33542080, 0413833 #### [facility] [address] [place] [address] CO2 [Moles/Vol] 21 mmol/L Normal 21-31 [facility] Comment on above: Performed By: #### 7 07631714, 8206603, 41058179, 7530410 #### [facility] [address] [place] [address] Creatinine [Mass/Vol] 2.1 mg/dL High 0.5-1.3 [facility] Comment on above: Performed By: #### 7 81492505, 6204949, 00887476, 1987642 #### [facility] [address] [place] [address] Globulin (S) [Mass/Vol] 2.6 g/dL Normal 1.4-4.0 [facility] Comment on above: Performed By: #### 7 [id number], [id number], [id number], [id number] #### [facility] [address] [place] [address] Glucose [Mass/Vol] 92 mg/dL Normal 55-199 [facility] Comment on above: Performed By: #### 7 [id number], [id number], [id number], [id number] #### [facility] [address] [place] [address] Potassium [Moles/Vol] 4.6 mmol/L Normal 3.5-5.3 [facility] Comment on above: Performed By: #### 7 [id number], [id number], [id number], [id number] #### [facility] [address] [place] [address] Protein [Mass/Vol] 6.5 g/dL Normal 6.0-7.8 [facility] Comment on above: Performed By: #### 7 [id number], [id number], [id number], [id number] #### [facility] [address] [place] [address] Sodium [Moles/Vol] 135 mmol/L Normal 135-145 [facility] Comment on above: Performed By: #### 7 [id number], [id number], [id number], [id number] #### [facility] [address] [place] [address] Urea nitrogen [Mass/Vol] 31 mg/dL High 5-21 [facility] Comment on above: Performed By: #### 7 [id number], [id number], [id number], [id number] #### [facility] [address] [place] [address] Physician Orderon 10-13-2023 Physician Order [id number] Normal [facility] eGFRon 10-13-2023 eGFR 28 mL/min/1.73 m2 Low >=59 [facility] Comment on above: Order Comment: Order added by Discern Expert. Performed By: #### 7 [id number], [id number], [id number], [id number] #### [facility] [address] [place] [address] MR lumbar spine wo conon MR lumbar spine wo con [address] [place] [address] MRI Report Signed Patient: Joselito Vidal MR#: [id number] : 1970 Acct:[id number] Age/Sex: 52 / F ADM Date: 06/18/23 Loc: MR Room: Type: [facility] Attending Dr: Dario Palacios DO Copies to: Dario Palacios DO Ordering Provider: Dario Palacios DO Date of Service: 06/18/23 MR/MR [...] Arianna Urena M.D.06/18/2023 8:28 PM Dictation Location: [facility]02 Transcribed By: [facility] 06/18/232027 Dictated By: Arianna Urena MD 06/18/232010 Signed By: 06/18/232027 Normal [facility] XR hip RT min 2V(w/wo pelvis )*on 11-07-2022 XR hip RT min 2V(w/wo pelvis)* [facility] [employer] Other XR hip RT min 2V(w/wo pelvis)* [facility] Main [place] [employer] Other XR hip RT min 2V(w/wo pelvis)* [address] [place] [address] [employer] Other XR hip RT min 2V(w/wo pelvis)* [place] [address] [employer] Other XR hip RT min 2V(w/wo pelvis)* XRay Report [employer] Other XR hip RT min 2V(w/wo pelvis)* Signed [employer] Other XR hip RT min 2V(w/wo pelvis)* Patient: Joselito Vidal MR#: [id number] [employer] Other XR hip RT min 2V(w/wo pelvis)* 3010 [employer] Other XR hip RT min 2V(w/wo pelvis)* : 1970 Acct:[id number] [employer] Other XR hip RT min 2V(w/wo pelvis)* Age/Sex: 51 / F ADM Date: 11/07/22 [employer] Other XR hip RT min 2V(w/wo pelvis)* Loc: XDUCLY Room: Type: REG CLI [employer] Other XR hip RT min 2V(w/wo pelvis)* [facility] [employer] Other XR hip RT min 2V(w/wo pelvis)* Copies to: ELLIE INGRAM [facility] [employer] Other XR hip RT min 2V(w/wo pelvis)* Ordering Provider: ELLIE INGRAM [facility] [employer] Other XR hip RT min 2V(w/wo pelvis)* Date of Service: 11/07/22 [employer] Other XR hip RT min 2V(w/wo pelvis)* XR/XR hip RT min 2V(w/wo pelvis)*: Right hip pain [employer] Other XR hip RT min 2V(w/wo pelvis)* Single view pelvis and 2 views of the right hip plain film [employer] Other XR hip RT min 2V(w/wo pelvis)* COMPARISON:None [employer] Other XR hip RT min 2V(w/wo pelvis)* HISTORY:Right hip pain for one year. [employer] Other XR hip RT min 2V(w/wo pelvis)* ACUTE FINDINGS:None [employer] Other XR hip RT min 2V(w/wo pelvis)* DEGENERATIVE CHANGE:Unremarkable [employer] Other XR hip RT min 2V(w/wo pelvis)* SOFT TISSUE FINDINGS:Unremarkable [employer] Other XR hip RT min 2V(w/wo pelvis)* JOINT EFFUSION:None [employer] Other XR hip RT min 2V(w/wo pelvis)* POSTOP CHANGES:None [employer] Other XR hip RT min 2V(w/wo pelvis)* BONY MINERALIZATION:Adequate [employer] Other XR hip RT min 2V(w/wo pelvis)* XR/XR hip RT min 2V(w/wo pelvis)* [employer] Other XR hip RT min 2V(w/wo pelvis)* IMPRESSION:Unremarkable exam [employer] Other XR hip RT min 2V(w/wo pelvis)* Impression dictated by: Juan Adair M.D.11/07/2022 11:54 AM [employer] Other XR hip RT min 2V(w/wo pelvis)* Dictation Location: [place] [address] [employer] Other XR hip RT min 2V(w/wo pelvis)* Transcribed By: PWS 11/07/22 [facility] [employer] Other XR hip RT min 2V(w/wo pelvis)* Dictated By: Juan Adair DO 11/07/22 Count includes the [facility] [employer] Other XR hip RT min 2V(w/wo pelvis)* Signed By: [employer] Other XR hip RT min 2V(w/wo pelvis)* 11/07/22 [facility] [employer] Other XR knee RT 4V*on 11-03-2022 XR knee RT 4V* [facility] [employer] Other XR knee RT 4V* [facility] [employer] Other XR knee RT 4V* [address] [place] [address] [employer] Other XR knee RT 4V* [place] [address] No rt [employer] Other XR knee RT 4V* XRay Report [employer] Other XR knee RT 4V* Signed [employer] Other XR knee RT 4V* Patient: Genevieve Vidal MR#: [id number] [employer] Other XR knee RT 4V* 3649 [employer] Other XR knee RT 4V* : 1970 Acct:[id number] [employer] Other XR knee RT 4V* Age/Sex: 51 / F ADM Date: 11/03/22 [employer] Other XR knee RT 4V* Loc: XDUCLY Room: pe: REG CLI [employer] Other XR knee RT 4V* Attending Dr: Susana LIZ [employer] Other XR knee RT 4V* Copies to: AGUSTO Aviles [employer] Other XR knee RT 4V* Ordering Provider: AGUSTO Hernández [employer] Other XR knee RT 4V* Date of Service: 11/03/22 [employer] Other XR knee RT 4V* XR/XR knee RT 4V*: Acute pain of right knee [employer] Other XR knee RT 4V* RIGHT KNEE - 4 views [employer] Other XR knee RT 4V* CLINICAL HISTORY: Ri ght knee pain for the past 2 weeks. No recent injury. [employer] Other XR knee RT 4V* COMPARISON: None [employer] Other XR knee RT 4V* AP, lateral and both oblique views were obtained. There is no evidence of fracture or dislocation. [employer] Other XR knee RT 4V* No disproportionate joint space narrowing is present. There is minimal marginal spurring. Fluid [employer] Other XR knee RT 4V* is present at the suprapatellar bursa. [employer] Other XR knee RT 4V* X R/XR knee RT 4V* [employer] Other XR knee RT 4V* IMPRESSION: [employer] Other XR knee RT 4V* MINOR DEGENERATIVE CHANGE. [employer] Other XR knee RT 4V* JOINT EFFUSION. [employer] Other XR knee RT 4V* NO ACUTE BONY FINDINGS. [employer] Other XR knee RT 4V* Impression dictated by: Arianna Urena M.D.11/03/2022 2:56 PM [employer] Other XR knee RT 4V* Dictation Location: [place] [address] [employer] Other XR knee RT 4V* Transcribed By: SUKHDEV 11/03/22 [facility] [employer] Other XR knee RT 4V* Dictated By: Arianna Urena MD 11/03/22 [facility] [employer] Other XR knee RT 4V* Signed By: [employer] Other XR knee RT 4V* 11/03/22 145 Number 100 Other Albumin [Mass/volume] in Ser um or PlasmaOrdered By: PROVIDER TEMP on 10-08-2022 Albumin [Mass/Vol] 3.5 g/dL 3.2-5.5 [facility] Basophils Auto (Bld) [#/Vol] Ordered By: PROVIDER TEMP on 10-08-2022 Basophils (Bld) [#/Vol] 0.1 10*3/uL 0.0-0.2 [facility] Basophils/100 WBC Auto (Bld) Ordered By: PROVIDER TEMP on 10-08-2022 Basophils/100 WBC (Bld) 0.6 % . [facility] Creatine kinase [Enzymatic a ctivity/volume] in Serum or PlasmaOrdered By: PROVIDER TEMP on 10-08-2022 CK [Catalytic activity/Vol] 65 U/L 22-269 [facility] Creatinine and Glomerular fi ltration rate.predicted panel (S/P/Bld)Ordered By: PROVIDER TEMP on 10-08-2022 Creatinine [Mass/Vol] 0.89 mg/dL 0.44-1.03 [facility] Eosinophils Auto (Bld) [#/Vo l]Ordered By: PROVIDER TEMP on 10-08-2022 Eosinophils (Bld) [#/Vol] 0.2 10*3/uL 0.0-0.45 [facility] Eosinophils/100 WBC Auto (Bl d)Ordered By: PROVIDER TEMP on 10-08-2022 Eosinophils/100 WBC (Bld) 1.0 % . [facility] Erythrocyte distribution wid th Auto (RBC) [Ratio]Ordered By: PROVIDER TEMP on 10-08-2022 Erythrocyte distribution width (RBC) [Ratio] 13.9 % 11.9-15.3 [facility] Estimated glomerular filtrat ion rate (GFR) non- AmericanOrdered By: PROVIDER TEMP on 10-08-2022 GFR/1.73 sq M.predicted among non-blacks MDRD (S/P/Bld) [Vol rate/Area] > 60 mL/Min [facility] Globulin Calc (S) [Mass/Vol] Ordered By: PROVIDER TEMP on 10-08-2022 Globulin (S) [Mass/Vol] 3.1 g/dL [facility] Hematocrit Auto (Bld) [Volum e fraction]Ordered By: PROVIDER TEMP on 10-08-2022 Hematocrit (Bld) [Volume fraction] 45.1 % 34.0-46.4 [facility] Hemoglobin [Mass/volume] in BloodOrdered By: PROVIDER TEMP on 10-08-2022 Hemoglobin (Bld) [Mass/Vol] 14.9 g/dL 11.8-15.4 [facility] - Chemistry and C hemistry - challengeOrdered By: Edie Bolton on 10-08-2022 Natriuretic peptide B (Bld) [Mass/Vol] 15.0 pg/mL 5-100 [facility] Leukocytes [#/volume] correc aleksey for nucleated erythrocytes in Blood by Automated counOrdered By: PROVIDER TEMP on 10-08-2022 WBC corrected for nucl RBC Auto (Bld) [#/Vol] 15.5 10*3/uL 3.8-11.6 [facility] Lymphocytes Auto (Bld) [#/Vo l]Ordered By: PROVIDER TEMP on 10-08-2022 Lymphocytes (Bld) [#/Vol] 4.6 10*3/uL 1.00-4.8 [facility] Lymphocytes/100 WBC Auto (Bl d)Ordered By: PROVIDER TEMP on 10-08-2022 Lymphocytes/100 WBC (Bld) 29.9 % . [facility] MCH Auto (RBC) [Entitic mass ]Ordered By: PROVIDER TEMP on 10-08-2022 MCH (RBC) [Entitic mass] 30.8 pg 24.7-34.3 [facility] MCHC Auto (RBC) [Mass/Vol]Or dered By: PROVIDER TEMP on 10-08-2022 MCHC (RBC) [Mass/Vol] 33.0 g/dL 32.0-35.0 [facility] MCV Auto (RBC) [Entitic vol] Ordered By: PROVIDER TEMP on 10-08-2022 MCV (RBC) [Entitic vol] 93.5 fL 80-100 [facility] Monocyte distribution width [Entitic volume] in Blood by AutomatedOrdered By: PROVIDER TEMP on 10-08-2022 Monocyte distribution width Auto (Bld) [Entitic vol] 15.04 % 0.00-20.00 [facility] Monocytes Auto (Bld) [#/Vol] Ordered By: PROVIDER TEMP on 10-08-2022 Monocytes (Bld) [#/Vol] 1.1 10*3/uL 0.0-0.8 [facility] Monocytes/100 WBC Auto (Bld) Ordered By: PROVIDER TEMP on 10-08-2022 Monocytes/100 WBC (Bld) 7.1 % . [facility] Neutrophils Auto (Bld) [#/Vo l]Ordered By: PROVIDER TEMP on 10-08-2022 Neutrophils (Bld) [#/Vol] 9.5 10*3/uL 1.8-7.7 [facility] Neutrophils/100 WBC Auto (Bl d)Ordered By: PROVIDER TEMP on 10-08-2022 Neutrophils/100 WBC (Bld) 61.4 % . [facility] No Panel InformationOrdered By: PROVIDER TEMP on 10-08-2022 Estimated GFR () > 60 mL/Min [facility] Comment on above: GFR estimated refere nce range: According to KDOQI guidelines, <60 ml/min/1.73m2 is sufficient to diagnose a patient with chronic kidney disease. Pharmacy Creatinine Clearance (Chem 91.28 [facility] Nucleated erythrocytes [Pres ence] in Blood by Automated countOrdered By: PROVIDER TEMP on 10-08-2022 Nucleated RBC Auto Ql (Bld) 0.1 /100{WBC} 0-0.5 [facility] Platelet mean volume Auto (B ld) [Entitic vol]Ordered By: PROVIDER TEMP on 10-08-2022 Platelet mean volume (Bld) [Entitic vol] 7.1 fL 6.3-10.7 [facility] Platelets Auto (Bld) [#/Vol] Ordered By: PROVIDER TEMP on 10-08-2022 Platelets (Bld) [#/Vol] 357 10*3/uL 150-450 [facility] Protein [Mass/volume] in Ser um or PlasmaOrdered By: PROVIDER TEMP on 10-08-2022 Protein [Mass/Vol] 6.6 g/dL 6.1-7.9 [facility] RBC Auto (Bld) [#/Vol]Ordere d By: PROVIDER TEMP on 10-08-2022 RBC (Bld) [#/Vol] 4.83 10*6/uL 3.60-5.00 [facility] Serum or plasma alanine blanco otransferase measurement without P-5'-P (enzymatic activiOrdered By: PROVIDER TEMP on 10-08-2022 ALT No additional P-5'-P [Catalytic activity/Vol] 22 U/L 10-60 [facility] Serum or plasma albumin/glob ulin mass ratioOrdered By: PROVIDER TEMP on 10-08-2022 Albumin/Globulin [Mass ratio] 1.1 {ratio} [facility] Serum or plasma alkaline shyla sphatase measurement (enzymatic activity/volume)Ordered By: PROVIDER TEMP on 10-08-2022 ALP [Catalytic activity/Vol] 76 U/L 32-92 [facility] Serum or plasma anion gap de terminationOrdered By: PROVIDER TEMP on 10-08-2022 Anion gap [Moles/Vol] 10.6 mmol/L 6.0-15.0 [facility] Serum or plasma aspartate am inotransferase measurement (enzymatic activity/volume)Ordered By: PROVIDER TEMP on 10-08-2022 AST [Catalytic activity/Vol] 14 U/L 10-42 [facility] Serum or plasma calcium rocío urement (mass/volume)Ordered By: PROVIDER TEMP on 10-08-2022 Calcium [Mass/Vol] 8.5 mg/dL 8.2-10.2 [facility] Serum or plasma chloride martin surement (moles/volume)Ordered By: PROVIDER TEMP on 10-08-2022 Chloride [Moles/Vol] 101 mmol/L 95-114 [facility] Serum or plasma creatine kin ase MB (CKMB)/total creatine kinase (CK) ratio by calculaOrdered By: PROVIDER TEMP on 10-08-2022 CK.MB Calc [Catalytic fraction] 1.8 % 0.00-2.50 [facility] Serum or plasma creatine kin ase MB measurement (mass/volume)Ordered By: PROVIDER TEMP on 10-08-2022 CK.MB [Mass/Vol] 1.2 ng/mL 0.6-6.3 [facility] Serum or plasma glucose rocío urement (mass/volume)Ordered By: PROVIDER TEMP on 10-08-2022 Glucose [Mass/Vol] 112 mg/dL 70-100 [facility] Comment on above: ADA recommended refe rence rangeRandom Glucose Reference Range is dependent on time and content of last meal. Glucose of more than 200 mg/dL in a nonstressed, ambulatory subject supports the diagnosis of Diabetes Mellitus. Serum or plasma potassium me asurement (moles/volume)Ordered By: PROVIDER TEMP on 10-08-2022 Potassium [Moles/Vol] 3.4 mmol/L 3.5-5.1 [facility] Serum or plasma sodium measu rement (moles/volume)Ordered By: PROVIDER TEMP on 10-08-2022 Sodium [Moles/Vol] 135 mmol/L 136-146 [facility] Serum or plasma total biliru bin measurement (mass/volume)Ordered By: PROVIDER TEMP on 10-08-2022 Bilirubin [Mass/Vol] 0.5 mg/dL 0.3-1.2 [facility] Serum or plasma total carbon dioxide measurement (moles/volume)Ordered By: PROVIDER TEMP on 10-08-2022 CO2 [Moles/Vol] 26.8 mmol/L 22.0-30.0 [facility] Serum or plasma urea nitroge n measurement (mass/volume)Ordered By: PROVIDER TEMP on 10-08-2022 Urea nitrogen [Mass/Vol] 13 mg/dL 9- [facility] Troponin I.cardiac [Mass/vol ume] in Serum or Plasma by High sensitivity methodOrdered By: PROVIDER TEMP on 10-08-2022 Troponin I.cardiac High sensitivity method [Mass/Vol] 3 pg/mL 0-15 [facility] WBC Auto (Bld) [#/Vol]Ordere d By: PROVIDER TEMP on 10-08-2022 WBC (Bld) [#/Vol] 15.5 10*3/uL 3.8-11.6 [facility] XR chest 2V*on 10-01-2022 XR chest 2V* [facility] [employer] Other XR chest 2V* [facility] [employer] Other XR chest 2V* [address] [employer] Other XR chest 2V* [place] [address] [facility] [employer] Other XR chest 2V* [facility] [place] [employer] [employer] Other XR chest 2V* Signed [employer] Other XR chest 2V* Patient: Genevieve Vidal MR#: [id number] [facility] [employer] Other XR chest 2V* 3649 [employer] Other XR chest 2V* : 1970 Acct:[id number] [employer] Other XR chest 2V* Age/Sex: 51 / F ADM Date: 10/01/22 [employer] Other XR chest 2V* Loc: XDCLY [facility]: [facility] [employer] Other XR chest 2V* Attending Dr: Emery Ingram [facility] [employer] Other XR chest 2V* Copies to: ELLIE INGRAM [facility] [employer] Other XR chest 2V* Ordering Provider: ELLIE INGRAM [facility] [employer] Other XR chest 2V* Date of Service: 10/01/22 [employer] Other XR chest 2V* XR/XR chest 2V*: COUGH [employer] Other XR chest 2V* Chest 2 views eOriginal [facility] [employer] Other XR chest 2V* CLINICAL HISTORY: Dr arteaga cough, hoarseness, shortness of breath, wheezing, upper middle back pain for 3 [employer] Other XR chest 2V* weeks. [employer] Other XR chest 2V* COMPARISON: None [employer] Other XR chest 2V* FINDINGS: [employer] Other XR chest 2V* Heart normal in size . Mild left lower lobe linear atelectasis/scarring. No consolidation [employer] Other XR chest 2V* pneumothorax pleural effusion or free air. [employer] Other XR chest 2V* X R/XR chest 2V* [employer] Other XR chest 2V* IMPRESSION: [employer] Other XR chest 2V* MILD LEFT LOWER LOBE LINEAR ATELECTASIS/SCARRING. NO CONSOLIDATION TO SUGGEST PNEUMONIA. [employer] Other XR chest 2V* Impression dictated by: Brice Taylor Jr., D.OTracee10/01/2022 3:33 PM [employer] Other XR chest 2V* Dictation Location: [place] [address] [employer] Other XR chest 2V* Transcribed By: SUKHDEV 10/01/22 [facility] [employer] Other XR chest 2V* Dictated By: Brice Taylor Jr, DO 10/01/22 [facility] [employer] Other XR chest 2V* Signed By: [employer] Other XR chest 2V* 10/01/22 [facility] [employer] Other A1C HEMOGLOBINon 09-30-2022 HbA1c (Bld) [Mass fraction] 6.1 % [employer] Other HbA1c (Bld) [Mass fraction]o n 09-30-2022 A1C HEMOGLOBIN [employer] Other PROF CHEM 8 (BAS METB)on Anion gap [Moles/Vol] 17.9 mmol/L Normal Th e [facility] Comment on above: Performed By: #### B MP #### [facility] [address] [place] [address] Dr. Isabel Wolfe Calcium [Mass/Vol] 9.1 mg/dL Normal 8.5-10.1 [facility] Comment on above: Performed By: #### B MP #### [facility] [address] [place] [address] [address] Isabel Wolfe Chloride [Moles/Vol] 103 mmol/L Normal 98-107 [facility] Comment on above: Performed By: #### B MP #### [facility] [address] [place] [address] [address] Isabel Wolfe CO2 [Moles/Vol] 22.9 mmol/L Normal 21.0-32.0 [facility] Comment on above: Performed By: #### B MP #### [facility] [address] [place] [address] [address] Isabel Wolfe Creatinine [Mass/Vol] 0.92 mg/dL Normal 0.55-1.02 [facility] Comment on above: Performed By: #### B MP #### [facility] [address] [place] [address] [address] Isabel Wolfe EGFR-AF SCOTTISH >60 Normal >=60 [facility] Comment on above: Performed By: #### B MP #### [facility] [address] [place] [address] [address] Isabel Wolfe EGFR-NON AF SCOTTISH >60 Normal >=60 [facility] Comment on above: Performed By: #### B MP #### [facility] [address] [place] [address] [address] Isabel Wolfe Glucose [Mass/Vol] 178 mg/dL Critically high 74-106 [facility] Comment on above: Performed By: #### B MP #### [facility] [address] [place] [address] [address] Isabel Wolfe Potassium [Moles/Vol] 3.8 mmol/L Normal 3.5-5.1 [facility] Comment on above: Performed By: #### B MP #### [facility] [address] [place] [address] [address] Isabel Wolfe Sodium [Moles/Vol] 140 mmol/L Normal 136-145 [facility] Comment on above: Performed By: #### B MP #### [facility] [address] [place], [place] [address] Dr. Isabel Wolfe Urea nitrogen [Mass/Vol] 11.0 mg/dL Normal 7.0-18.0 [facility] Comment on above: Performed By: #### B MP #### [facility] [address] [place], [place] [address] Dr. Isabel Wolfe Urea nitrogen/Creatinine [Mass ratio] 12.0 mg/mg Normal [facility] Comment on above: Performed By: #### B MP #### [facility] [address] [place], [place] [address] Dr. Isabel Wolfe COVID + FLU Quick Testingon 09-20-2022 SARS-CoV-2 (COVID-19) RNA PIPER+probe Ql (Unsp spec) Negative [facility] [employer] Other COVID + FLU Quick Testing Negative eOriginal [facility] O[facility] [employer] Other Quick Strepon 09-20-2022 S. pyogenes Org specific cx Ql (Throat) Negative [facility] [employer] Other Quick Strep eOriginal [facility] [employer] Other Automated erythrocytes count in urine sediment (number/area)Ordered By: Reinaldo Mehta on 09-10-2022 RBC Auto (Urine sed) [#/Area] 1-2 [HPF] 0-4 [facility] Automated leukocytes count i n urine sediment (number/area)Ordered By: Reinaldo Mehta on 09-10-2022 WBC Auto (Urine sed) [#/Area] 3-4 [HPF] 0-4 [facility] Basophils Auto (Bld) [#/Vol] Ordered By: Reinaldo Mehta on 09-10-2022 Basophils (Bld) [#/Vol] 0.1 10*3/uL 0.0-0.2 [facility] Basophils/100 WBC Auto (Bld) Ordered By: Reinaldo Mehta on 09-10-2022 Basophils/100 WBC (Bld) 0.6 % . [facility] Bilirubin Test strip Ql (U)O rdered By: Reinaldo Mehta on 09-10-2022 Bilirubin Ql (U) Negative Negative [facility] Body fluid albumin measureme nt (mass/volume)Ordered By: Reinaldo Mehta on 09-10-2022 Albumin (Body fld) [Mass/Vol] 3.6 g/dL 3.2-5.5 [facility] Color Auto (U)Ordered By: Shady Mehta on 09-10-2022 Color (U) Yellow Yellow [facility] Creatinine and Glomerular fi ltration rate.predicted panel (S/P/Bld)Ordered By: Reinaldo Mehta on 09-10-2022 Creatinine [Mass/Vol] 0.84 mg/dL 0.44-1.03 [facility] Direct bilirubin measurement Ordered By: Reinaldo Mehta on 09-10-2022 Bilirubin.direct [Mass/Vol] 0.1 mg/dL 0.0-0.4 [facility] Eosinophils Auto (Bld) [#/Vo l]Ordered By: Reinaldo Mehta on 09-10-2022 Eosinophils (Bld) [#/Vol] 0.2 10*3/uL 0.0-0.45 [facility] Eosinophils/100 WBC Auto (Bl d)Ordered By: Reinaldo Mehta on 09-10-2022 Eosinophils/100 WBC (Bld) 1.6 % . [facility] Erythrocyte distribution wid th Auto (RBC) [Ratio]Ordered By: Reinaldo Mehta on 09-10-2022 Erythrocyte distribution width (RBC) [Ratio] 13.6 % 11.9-15.3 [facility] Estimated glomerular filtrat ion rate (GFR) non- AmericanOrdered By: Reinaldo Mehta on 09-10-2022 GFR/1.73 sq M.predicted among non-blacks MDRD (S/P/Bld) [Vol rate/Area] > 60 mL/Min [facility] Globulin Calc (S) [Mass/Vol] Ordered By: Reinaldo Mehta on 09-10-2022 Globulin (S) [Mass/Vol] 3.1 g/dL [facility] Hematocrit Auto (Bld) [Volum e fraction]Ordered By: Reinaldo Mehta on 09-10-2022 Hematocrit (Bld) [Volume fraction] 40.7 % 34.0-46.4 [facility] Hemoglobin [Mass/volume] in BloodOrdered By: Reinaldo Mehta on 09-10-2022 Hemoglobin (Bld) [Mass/Vol] 13.5 g/dL 11.8-15.4 [facility] Ketones Auto test strip (U) [Mass/Vol]Ordered By: Reinaldo Mehta on 09-10-2022 Ketones (U) [Mass/Vol] Trace Negative Fi [facility] - Chemistry and C hemistry - challengeOrdered By: Reinaldo Mehta on 09-10-2022 Lipase [Catalytic activity/Vol] 41.0 U/L 22-51 [facility] - CoagulationOrde red By: Reinaldo Mehta on 09-10-2022 PT Coag (PPP) [Time] 13.6 s 9.0-12.9 [facility] - UrinalysisOrder ed By: Reinaldo Mehta on 09-10-2022 Hyaline casts LM Ql (Urine sed) 0-8 [LPF] 0-8 [facility] Leukocytes [#/volume] correc aleksey for nucleated erythrocytes in Blood by Automated counOrdered By: Reinaldo Mehta on 09-10-2022 WBC corrected for nucl RBC Auto (Bld) [#/Vol] 11.7 10*3/uL 3.8-11.6 [facility] Lymphocytes Auto (Bld) [#/Vo l]Ordered By: Reinaldo Mehta on 09-10-2022 Lymphocytes (Bld) [#/Vol] 3.5 10*3/uL 1.00-4.8 [facility] Lymphocytes/100 WBC Auto (Bl d)Ordered By: Reinaldo Mehta on 09-10-2022 Lymphocytes/100 WBC (Bld) 29.7 % . [facility] MCH Auto (RBC) [Entitic mass ]Ordered By: Reinaldo Mehta on 09-10-2022 MCH (RBC) [Entitic mass] 30.5 pg 24.7-34.3 [facility] MCHC Auto (RBC) [Mass/Vol]Or dered By: Reinaldo Mehta on 09-10-2022 MCHC (RBC) [Mass/Vol] 33.2 g/dL 32.0-35.0 [facility] MCV Auto (RBC) [Entitic vol] Ordered By: Reinaldo Mehta on 09-10-2022 MCV (RBC) [Entitic vol] 91.9 fL 80-100 [facility] Monocyte distribution width [Entitic volume] in Blood by AutomatedOrdered By: Reinaldo Mehta on 09-10-2022 Monocyte distribution width Auto (Bld) [Entitic vol] 18.22 % 0.00-20.00 [facility] Monocytes Auto (Bld) [#/Vol] Ordered By: Reinaldo Mehta on 09-10-2022 Monocytes (Bld) [#/Vol] 0.8 10*3/uL 0.0-0.8 [facility] Monocytes/100 WBC Auto (Bld) Ordered By: Reinaldo Mehta on 09-10-2022 Monocytes/100 WBC (Bld) 6.7 % . [facility] Neutrophils Auto (Bld) [#/Vo l]Ordered By: Reinaldo Mehta on 09-10-2022 Neutrophils (Bld) [#/Vol] 7.2 10*3/uL 1.8-7.7 [facility] Neutrophils/100 WBC Auto (Bl d)Ordered By: Reinaldo Mehta on 09-10-2022 Neutrophils/100 WBC (Bld) 61.4 % . [facility] Nitrite Test strip Ql (U)Ord ered By: Reinaldo Mehta on 09-10-2022 Nitrite Ql (U) Negative Negative [facility] No Panel InformationOrdered By: Reinaldo Mehta on 09-10-2022 Estimated GFR () > 60 mL/Min [facility] Comment on above: GFR estimated refere nce range: According to KDOQI guidelines, <60 ml/min/1.73m2 is sufficient to diagnose a patient with chronic kidney disease. Pharmacy Creatinine Clearance (Chem 101.87 [facility] Nucleated erythrocytes [Pres ence] in Blood by Automated countOrdered By: Reinaldo Mehta on 09-10-2022 Nucleated RBC Auto Ql (Bld) 0.0 /100{WBC} 0-0.5 [facility] Platelet mean volume Auto (B ld) [Entitic vol]Ordered By: Reinaldo Mehta on 09-10-2022 Platelet mean volume (Bld) [Entitic vol] 7.7 fL 6.3-10.7 [facility] Platelet poor plasma interna tional normalized ratio (INR) by coagulation assay (relatOrdered By: Reinaldo Mehta on 09-10-2022 INR Coag (PPP) [Relative time] 1.2 {INR} [facility] Comment on above: INR Therapeutic Rang [...] 09-10-2022 Platelets (Bld) [#/Vol] 367 10*3/uL 150-450 [facility] Protein Auto test strip (U) [Mass/Vol]Ordered By: Reinaldo Mehta on 09-10-2022 Protein (U) [Mass/Vol] Trace mg/dL Negative [facility] Protein [Mass/volume] in Ser um or PlasmaOrdered By: Reinaldo Mehta on 09-10-2022 Protein [Mass/Vol] 6.7 g/dL 6.1-7.9 [facility] RBC Auto (Bld) [#/Vol]Ordere d By: Reinaldo Mehta on 09-10-2022 RBC (Bld) [#/Vol] 4.42 10*6/uL 3.60-5.00 [facility] Serum or plasma alanine blanco otransferase measurement without P-5'-P (enzymatic activiOrdered By: Reinaldo Mehta on 09-10-2022 ALT No additional P-5'-P [Catalytic activity/Vol] 16 U/L 10-60 [facility] Serum or plasma albumin/glob ulin mass ratioOrdered By: Reinaldo Mehta on 09-10-2022 Albumin/Globulin [Mass ratio] 1.2 {ratio} [facility] Serum or plasma alkaline shyla sphatase measurement (enzymatic activity/volume)Ordered By: Reinaldo Mehta on 09-10-2022 ALP [Catalytic activity/Vol] 89 U/L 32-92 [facility] Serum or plasma anion gap de terminationOrdered By: Reinaldo Mehta on 09-10-2022 Anion gap [Moles/Vol] 15.1 mmol/L 6.0-15.0 [facility] Serum or plasma aspartate am inotransferase measurement (enzymatic activity/volume)Ordered By: Reinaldo Mehta on 09-10-2022 AST [Catalytic activity/Vol] 15 U/L 10-42 [facility] Serum or plasma calcium rocío urement (mass/volume)Ordered By: Reinaldo Mehta on 09-10-2022 Calcium [Mass/Vol] 9.2 mg/dL 8.2-10.2 [facility] Serum or plasma chloride martin surement (moles/volume)Ordered By: Reinaldo Mehta on 09-10-2022 Chloride [Moles/Vol] 101 mmol/L 95-114 [facility] Serum or plasma glucose rocío urement (mass/volume)Ordered By: Reinaldo Mehta on 09-10-2022 Glucose [Mass/Vol] 91 mg/dL 70-100 [facility] Comment on above: ADA recommended refe rence rangeRandom Glucose Reference Range is dependent on time and content of last meal. Glucose of more than 200 mg/dL in a nonstressed, ambulatory subject supports the diagnosis of Diabetes Mellitus. Serum or plasma non-glucuron idated bilirubin measurement (mass/volume)Ordered By: Reinaldo Mehta on 09-10-2022 Bilirubin.indirect [Mass/Vol] 0.4 mg/dL [facility] Serum or plasma potassium me asurement (moles/volume)Ordered By: Reinaldo Mehta on 09-10-2022 Potassium [Moles/Vol] 2.9 mmol/L 3.5-5.1 [facility] Comment on above: Results calledat 192 1 on 09/10/22 Serum or plasma sodium measu rement (moles/volume)Ordered By: Reinaldo Mehta on 09-10-2022 Sodium [Moles/Vol] 137 mmol/L 136-146 [facility] Serum or plasma total biliru bin measurement (mass/volume)Ordered By: Reinaldo Mehta on 09-10-2022 Bilirubin [Mass/Vol] 0.5 mg/dL 0.3-1.2 [facility] Serum or plasma total carbon dioxide measurement (moles/volume)Ordered By: Reinaldo Mehta on 09-10-2022 CO2 [Moles/Vol] 23.8 mmol/L 22.0-30.0 [facility] Serum or plasma urea nitroge n measurement (mass/volume)Ordered By: Reinaldo Mehta on 09-10-2022 Urea nitrogen [Mass/Vol] 10 mg/dL 9- [facility] Specific gravity Auto test s trip (U) [Rel density]Ordered By: Reinaldo Mehta on 09-10-2022 Specific gravity (U) [Rel density] 1.025 1.001-1.03 0 [facility] Squamous epithelial cells de tection in urine sediment by light microscopyOrdered By: Reinaldo Mehta on 09-10-2022 Epithelial cells.squamous LM Ql (Urine sed) 1-2 [HPF] 0-2 [facility] Urine bacteria detection by automated methodOrdered By: Reinaldo Mehta on 09-10-2022 Bacteria Auto Ql (U) None seen None Seen [facility] Urine clarity by refractomet ry automatedOrdered By: Reinaldo Mehta on 09-10-2022 Clarity Refractometry automated (U) Clear Clear [facility] Urine glucose measurement by automated test strip (mass/volume)Ordered By: Reinaldo Mehta on 09-10-2022 Glucose Auto test strip (U) [Mass/Vol] Normal mg/dL Normal [facility] Urine hemoglobin detection b y automated test stripOrdered By: Reinaldo Mehta on 09-10-2022 Hemoglobin Auto test strip Ql (U) Negative Negative [facility] Urine leukocyte esterase det ection by automated test stripOrdered By: Reinaldo Mehta on 09-10-2022 Leukocyte esterase Auto test strip Ql (U) 1+ Negative [facility] Urobilinogen Auto test strip (U) [Mass/Vol]Ordered By: Reinaldo Mehta on 09-10-2022 Urobilinogen (U) [Mass/Vol] Normal mg/dL Normal [facility] WBC Auto (Bld) [#/Vol]Ordere d By: Reinaldo Mehta on 09-10-2022 WBC (Bld) [#/Vol] 11.7 10*3/uL 3.8-11.6 [facility] pH Auto test strip (U)Ordere d By: Reinaldo Mehta on 09-10-2022 pH (U) 6.0 [pH] 5.0-9.0 [facility] COVID/FLU RT-PCRon 2 SARS-CoV-2 (COVID-19) RNA PIPER+probe Ql (Unsp spec) Negative [facility] [employer] Other COVID/FLU RT-PCR Negative [facility] [employer] Other Quick Strepon 07-02-2022 S. pyogenes Org specific cx Ql (Throat) Negative [facility] [employer] Other Quick Strep [facility] [employer] Other FREE T4on 06-05-2022 Free T4 [Mass/Vol] 0.77 ng/dL Normal 0.76-1.46 [facility] Comment on above: Performed By: #### F T4 #### [facility] [address] [place] [address] Dr. Isabel Wolfe T4on 06-05-2022 T4 [Mass/Vol] 6.20 ug/dL Normal 4.80-13.90 [facility] Comment on above: Performed By: #### T 4, TSH #### [facility] [address] [address] [address] Isabel Wolfe TSHon 06-05-2022 TSH 0.845 uIU/mL Normal 0.358-3.74 0 [facility] Comment on above: Performed By: #### T 4, TSH #### [facility] [address] [address] [address] Isabel Wolfe MICROALBUMIN/ CREATININE RAT IOon 04-09-2022 Albumin, Urine 4.4 ug/mL Normal Not Estab. [facility] Comment on above: Performed By: #### M ALBCRL #### [facility] [address] [place] [address] Dr. Isabel Wolfe Albumin/ Creatinine Ratio 11 mg/g creat Normal 0-29 [facility] Comment on above: Result Comment: Norm al: 0 - 29 Moderately increased: 30 - 300 Severely increased: >300 Performed By: #### M ALBCRL #### [facility] [address] [address] [address] Isabel Wolfe Creatinine, Urine 41.2 mg/dL Normal Not Estab. [facility] Comment on above: Performed By: #### M ALBCRL #### [facility] [address] [address] [address] Isabel Wolfe GLYCOHEMOGLOBIN A1Con 2021 ADA RECOMMENDATION SEE BELOW Normal [facility] Comment on above: Result Comment: ADA RECOMMENDED LIMIT 4.0 - 6.0 ADA THERAPEUTIC TARGET < 7.0 ACTION SUGGESTED > 7.0 Performed By: #### A 1C #### [facility] [address] [address] [address] Isabel Wlofe Glucose [Mass/Vol] 117 mg/dL Normal [facility] Comment on above: Performed By: #### A 1C #### [facility] [address] [place] [address] Dr. Isabel Wolfe HbA1c (Bld) [Mass fraction] 5.7 % Normal 4.5-6.2 [facility] Comment on above: Performed By: #### A 1C #### [facility] [address] [address] [address] Isabel Wolfe LIPID PROFILEon 04-06-2022 CHOL-HDL RATIO NORM SEE BELOW Normal [facility] Comment on above: Result Comment: 3.3 - 4.4 LOW RISK 4.4 - 7.1 AVERAGE RISK 7.1 - 11.0 MODERATE RISK >11.0 HIGH RISK Performed By: #### L IPID, CMP #### [facility] [address] [address] [address] Isabel Wolfe Cholesterol [Mass/Vol] 165 mg/dL Normal <=[address] [facility] Comment on above: Performed By: #### L IPID, CMP #### [facility] [address] [address] [address] Isabel Wolfe Cholesterol in HDL [Mass/Vol] 38 mg/dL Critically low 40-60 [facility] Comment on above: Performed By: #### L IPID, CMP #### [facility] [address] [address] [address] Isabel Wolfe Cholesterol in LDL [Mass/Vol] 110.0 mg/dL Normal [facility] Comment on above: Performed By: #### L IPID, CMP #### [facility] [address] [address] [address] Isabel Wolfe Cholesterol.total/Chol esterol in HDL [Mass ratio] 4.3 {ratio} Normal [facility] Comment on above: Performed By: #### L IPID, CMP #### [facility] [address] [address] [address] Isabel Wolfe HDL NORMAL > or = 60 mg/dl - LO W CARDIOVASCULAR RISK <40 mg/dl - HIGH CARDIOVASCULAR RISK Normal [facility] Comment on above: Performed By: #### L IPID, CMP #### [facility] [address] [address] [address] Isabel Wolfe LDL CALC NORMAL SEE BELOW Normal [facility] Comment on above: Result Comment: <100 mg/dl OPTIMAL 100 - 129 mg/dl NEAR OR ABOVE OPTIMAL 130 - 159 mg/dl BORDERLINE HIGH 160 - 189 mg/dl HIGH >190 mg/dl VERY HIGH Performed By: #### L IPID, CMP #### [facility] [address] [place] [address] Dr. Isabel Wolfe Triglyceride [Mass/Vol] 85 mg/dL Normal <=150 [facility] Comment on above: Performed By: #### L IPID, CMP #### [facility] [address] [address] [address] Isabel Wolfe VLDL CALC 17.0 mg/dL Normal [facility] Comment on above: Performed By: #### L IPID, CMP #### [facility] [address] [address] [address] Isabel Wolfe PROF 14(COMP METB)on 022 Albumin [Mass/Vol] 3.3 g/dL Critically low 3.4-5.0 [facility] Comment on above: Performed By: #### L IPID, CMP #### [facility] [address] [place] [address] Dr. Isabel Wolfe Albumin/Globulin [Mass ratio] 0.9 {ratio} Normal [facility] Comment on above: Performed By: #### L IPID, CMP #### [facility] [address] [address] [address] Isabel Wolfe ALP [Catalytic activity/Vol] 86 U/L Normal 46-116 [facility] Comment on above: Performed By: #### L IPID, CMP #### [facility] [address] [address] [address] Isabel Wolfe ALT [Catalytic activity/Vol] 17 U/L Normal 14-59 [facility] Comment on above: Performed By: #### L IPID, CMP #### [facility] [address] [place] [address] Dr. Isabel Wolfe Anion gap [Moles/Vol] 14.3 mmol/L Normal [facility] Comment on above: Performed By: #### L IPID, CMP #### [facility] [address] [place] [address] Dr. Isabel Wolfe AST [Catalytic activity/Vol] 10 U/L Critically low 15-37 [facility] Comment on above: Performed By: #### L IPID, CMP #### [facility] [address] [place] [address] Dr. Isabel Wolfe Bilirubin [Mass/Vol] 0.5 mg/dL Normal 0.2-1.0 [facility] Comment on above: Performed By: #### L IPID, CMP #### [facility] [address] [place] [address] Dr. Isabel Wolfe Calcium [Mass/Vol] 9.0 mg/dL Normal 8.5-10.1 [facility] Comment on above: Performed By: #### L IPID, CMP #### [facility] [address] [place] [address] Dr. Isabel Wolfe Chloride [Moles/Vol] 104 mmol/L Normal 98-107 [facility] Comment on above: Performed By: #### L IPID, CMP #### [facility] [address] [place] [address] Dr. Isabel Wolfe CO2 [Moles/Vol] 25.8 mmol/L Normal 21.0-32.0 [facility] Comment on above: Performed By: #### L IPID, CMP #### [facility] [address] [address] [address] Isabel Wolfe Creatinine [Mass/Vol] 0.95 mg/dL Normal 0.55-1.02 [facility] Comment on above: Performed By: #### L IPID, CMP #### [facility] [address] [address] [address] Isabel Wolfe EGFR-AF SCOTTISH >60 Normal >=60 [facility] Comment on above: Performed By: #### L IPID, CMP #### [facility] [address] [place] [address] Dr. Isabel Wolfe EGFR-NON AF SCOTTISH >60 Normal >=60 [facility] Comment on above: Performed By: #### L IPID, CMP #### [facility] [address] [place] [address] Dr. Isabel Wolfe Globulin (S) [Mass/Vol] 3.6 g/dL Normal [facility] Comment on above: Performed By: #### L IPID, CMP #### [facility] [address] [place] [address] Dr. Isabel Wolfe Glucose [Mass/Vol] 101 mg/dL Normal 74-106 [facility] Comment on above: Performed By: #### L IPID, CMP #### [facility] [address] [place] [address] Dr. Isabel Wolfe Potassium [Moles/Vol] 4.1 mmol/L Normal 3.5-5.1 [facility] Comment on above: Performed By: #### L IPID, CMP #### [facility] [address] [place] [address] Dr. Isabel Wolfe Protein [Mass/Vol] 6.9 g/dL Normal 6.4-8.2 [facility] Comment on above: Performed By: #### L IPID, CMP #### [facility] [address] [place] [address] Dr. Isabel Wolfe Sodium [Moles/Vol] 140 mmol/L Normal 136-145 [facility] Comment on above: Performed By: #### L IPID, CMP #### [facility] [address] [place], [place] [address] Dr. Isabel Wolfe Urea nitrogen [Mass/Vol] 12.0 mg/dL Normal 7.0-18.0 [facility] Comment on above: Performed By: #### L IPID, CMP #### [facility] [address] [place], [place] [address] Dr. Isabel Wolfe Urea nitrogen/Creatinine [Mass ratio] 12.6 mg/mg Normal [facility] Comment on above: Performed By: #### L IPID, CMP #### [facility] [address] [place], [place] [address] Dr. Isabel Wolfe COVID Quick Testingon 2020 Result Negative [facility] Other MRI ELBOW LEFT WO CONTRASTon 08-10-2020 [...] Jay Umanzor MD 08/10/20 Final result Normal [facility] 1. High-grade partial-thickness tearing at the origin of the common extensor tendon with moderate underlying tendinosis. 2. Small joint effusion. No intra-articular loose body. 3. No acute osseous abnormality. [facility], [place] EXAMINATION: MRI OF THE LEFT ELBOW [...] collection identified within the visualized soft tissues. [facility] [place], [place] [facility], [facility] Incoming Radiant Results From [employer] - 08/10/2020 2:33 PM EST EXAMINATION: MRI [...] loose body. 3. No acute osseous abnormality. [place], [place] Vital Signs Date Time Vital Sign Value [facility]forming [facility]-28-2025 14:42-0400 Body weight 121.56 kg Alexis ESCOBEDO Work Phone: [facility] 11-30-2024 12:26-0400 Body height 157.5 cm Martin Larios MD Work Phone: [facility] 11-30-2024 12:26-040 Body mass index (BMI) [Ratio] 46.2 kg/m2 Martin Larios MD Work Phone: [facility] 11-30-2024 12:26-0400 Body weight 114.58 kg Martin Larios MD Work Phone: [facility] 11-30-2024 12:26-0400 Diastolic blood pressure 74 mm[Hg] Martin Larios MD Work Phone: [facility] 11-30-2024 12:26-0400 Heart rate 70 /min Martin Larios MD Work Phone: [facility] 11-30-2024 12:26-0400 Systolic blood pressure 118 mm[Hg] Martin Larios MD Work Phone: [facility] 11-16-2024 11:01-0400 Diastolic blood pressure 80 mm[Hg] [facility] 1 [facility] 11-16-2024 11:01-0400 Heart rate 75 /min [address] 11-16-2024 11:01-0400 SaO2% (BldA) [Mass fraction] 97 % [address] 11-16-2024 11:01-0400 Systolic blood pressure 152 mm[Hg] [address] 10-19-2024 14:39-0500 Heart rate 64 /min YESENIA NKANSAH-AMANKRA [facility] 10-19-2024 14:39-0500 SaO2% (BldA) [Mass fraction] 96 % YESENIA NKANSAH-AMANKRA [facility] 10-19-2024 14:39-0500 Respiratory rate 18 /min YESENIA NKANSAH-AMANKRA [facility] 10-19-2024 14:39-0500 Diastolic blood pressure 88 mm[Hg] YESENIA NKANSAH-AMANKRA [facility] 10-19-2024 14:39-0500 Mean blood pressure 107 mm[Hg] YESENIA NKANSAH-AMANKRA [facility] 10-19-2024 14:39-0500 Systolic blood pressure 146 mm[Hg] YESENIA NKANSAH-AMANKRA [facility] 10-19-2024 14:39-0500 Blood Pressure Location YESENIA NKANSAH-AMANKRA [facility] 10-19-2024 13:26-0500 Heart rate 64 /min YESENIA NKANSAH-AMANKRA [facility] 10-19-2024 13:26-0500 SaO2% (BldA) [Mass fraction] 98 % YESENIA NKANSAH-AMANKRA [facility] 10-19-2024 13:26-0500 Respiratory rate 16 /min YESENIA NKANSAH-AMANKRA [facility] 10-19-2024 13:25-0500 Blood Pressure Location YESENIA NKANSAH-AMANKRA [facility] 10-19-2024 13:25-0500 Diastolic blood pressure 78 mm[Hg] YESENIA NKANSAH-AMANKRA [facility] 10-19-2024 13:25-0500 Mean blood pressure 96 mm[Hg] YESENIA NKANSAH-AMANKRA [facility] 10-19-2024 13:25-0500 Systolic blood pressure 133 mm[Hg] YESENIA NKANSAH-AMANKRA [facility] 10-19-2024 13:11-0500 Blood Pressure Location YESENIA NKANSAH-AMANKRA [facility] 10-19-2024 13:11-0500 Body temperature 97.52 [degF] YESENIA NKANSAH-AMANKRA [facility] 10-19-2024 13:11-0500 Diastolic blood pressure 90 mm[Hg] YESENIA NKANSAH-AMANKRA [facility] 10-19-2024 13:11-0500 Heart rate 64 /min YESENIA NKANSAH-AMANKRA [facility] 10-19-2024 13:11-0500 Respiratory rate 16 /min YESENIA NKANSAH-AMANKRA [facility] 10-19-2024 13:11-0500 SaO2% (BldA) [Mass fraction] 97 % YESENIA NKANSAH-AMANKRA [facility] 10-19-2024 13:11-0500 Systolic blood pressure 153 mm[Hg] YESENIA NKANSAH-AMANKRA [facility] 10-19-2024 13:01-0500 Respiratory rate 17 /min YESENIA NKANSAH-AMANKRA [facility] 10-19-2024 12:56-0500 Respiratory rate 12 /min YESENIA NKANSAH-AMANKRA [facility] 10-19-2024 12:46-0500 Body temperature 97.34 [degF] YESENIA NKANSAH-AMANKRA [facility] 10-19-2024 09:21-0500 Mean blood pressure 77 mm[Hg] YESENIA NKANSAH-AMANKRA [facility] 10-19-2024 09:18-0500 Respiratory rate 20 /min YESENIA NKANSAH-AMANKRA [facility] 10-19-2024 09:18-0500 Body temperature 98.06 [degF] YESENIA NKANSAH-AMANKRA [facility] 10-12-2024 14:01-0500 Diastolic blood pressure 79 mm[Hg] YESENIA NKANSAH-AMANKRA [facility] 10-12-2024 14:01-0500 Heart rate 71 /min YESENIA NKANSAH-AMANKRA [facility] 10-12-2024 14:01-0500 Mean blood pressure 93 mm[Hg] YESENIA NKANSAH-AMANKRA [facility] 10-12-2024 14:01-0500 Systolic blood pressure 120 mm[Hg] YESENIA NKANSAH-AMANKRA [facility] 10-12-2024 14:01-0500 Heart rate 70 /min YESENIA NKANSAH-AMANKRA [facility] 10-12-2024 14:01-0500 SaO2% (BldA) [Mass fraction] 100 % YESENIA NKANSAH-AMANKRA [facility] 10-12-2024 13:58-0500 Diastolic blood pressure 71 mm[Hg] YESENIA NKANSAH-AMANKRA [facility] 10-12-2024 13:58-0500 Mean blood pressure 83 mm[Hg] YESENIA NKANSAH-AMANKRA [facility] 10-12-2024 13:58-0500 Systolic blood pressure 109 mm[Hg] YESENIA NKANSAH-AMANKRA [facility] 10-09-2024 11:41-0500 Blood Pressure Location YESENIA NKANSAH-AMANKRA [facility] 10-09-2024 11:41-0500 Diastolic blood pressure 77 mm[Hg] YESENIA NKANSAH-AMANKRA [facility] 10-09-2024 11:41-0500 Heart rate 81 /min YESENIA NKANSAH-AMANKRA [facility] 10-09-2024 11:41-0500 Systolic blood pressure 107 mm[Hg] YESENIA NKANSAH-AMANKRA [facility] 08-09-2024 15:27-0500 Body weight 121.56 kg Dario Palacios DO Work Phone: [facility] 08-09-2024 15:27-0500 Diastolic blood pressure 84 mm[Hg] Mohitopher Suzanne DO Work Phone: [facility] 08-09-2024 15:27-0500 Heart rate 85 /min Christopher Suzanne DO Work Phone: [facility] 08-09-2024 15:27-0500 SaO2% (BldA) [Mass fraction] 95 % Christopher Suzanne DO Work Phone: [facility] 08-09-2024 15:27-0500 Systolic blood pressure 146 mm[Hg] Christopher Suzanne DO Work Phone: [facility] 07-31-2024 15:12-0500 Diastolic blood pressure 70 mm[Hg] Martin Larios MD Work Phone: [facility] 07-31-2024 15:12-0500 Heart rate 106 /min Martin Larios MD Work Phone: [facility] 07-31-2024 15:12-0500 SaO2% (BldA) [Mass fraction] 92 % Martin Larios MD Work Phone: [facility] 07-31-2024 15:12-0500 Systolic blood pressure 98 mm[Hg] Martin Larios MD Work Phone: [facility] 07-31-2024 14:34-0500 Body height 157.5 cm Martin Larios MD Work Phone: [facility] 07-31-2024 14:34-0500 Body mass index (BMI) [Ratio] 48.29 kg/m2 Martin Larios MD Work Phone: [facility] 07-31-2024 14:34-0500 Body weight 119.75 kg Martin Larios MD Work Phone: [facility] 03-15-2024 14:32-0400 Body height 158.75 cm MD Dario Olmedo Work Phone: [facility] 03-15-2024 14:32-0400 Body mass index (BMI) [Ratio] 47.3 kg/m2 MD Dario Olmedo Work Phone: [facility] 03-15-2024 14:32-0400 Body weight 119.29 kg MD Dario Olmedo Work Phone: [facility] 03-15-2024 14:32-0400 Diastolic blood pressure 77 mm[Hg] MD Dario Olmedo Work Phone: [facility] 03-15-2024 14:32-0400 Heart rate 88 /min MD Dario Olmedo Work Phone: [facility] 03-15-2024 14:32-0400 SaO2% (BldA) [Mass fraction] 94 % MD Dario Olmedo Work Phone: [facility] 03-15-2024 14:32-0400 Systolic blood pressure 125 mm[Hg] MD Dario Olmedo Work Phone: [facility] 02-15-2024 15:05-0400 Diastolic blood pressure 72 mm[Hg] [facility] [place] [facility] [employer] 02-15-2024 15:05-0400 Systolic blood pressure 118 mm[Hg] [facility] [employer] 02-15-2024 13:59-0400 Body height 157.5 cm [facility] [employer] 02-15-2024 13:59-0400 Body mass index (BMI) [Ratio] 49.38 kg/m2 [facility] [employer] 02-15-2024 13:59-0400 Body temperature 97.59 [degF] [facility] [employer] 02-15-2024 13:59-0400 Body weight 122.47 kg [facility] [employer] 01-19-2024 10:15-0400 Body height 160 cm [facility] 01-19-2024 10:15-0400 Body mass index (BMI) [Ratio] 48.32 kg/m2 [facility] 01-19-2024 10:15-0400 [facility].74 [facility] 01-19-2024 10:15-0400 Diastolic blood pressure 90 mm[Hg] [facility] 01-19-2024 10:15-0400 Systolic blood pressure 142 mm[Hg] [facility] 11-26-2023 11:04-0400 Body height 159.[address] [facility] 11-26-2023 11:04-0400 Body mass index (BMI) [Ratio] 48.5 kg/m2 [facility] 11-26-2023 11:04-0400 Body weight 123.[address] [facility] 11-26-2023 11:04-0400 Diastolic blood pressure 81 mm[Hg] [facility] 11-26-2023 11:04-0400 Heart rate 89 /min [facility] 11-26-2023 11:04-0400 SaO2% (BldA) [Mass fraction] 97 % [facility] 11-26-2023 11:04-0400 Systolic blood pressure 137 mm[Hg] [facility] 04-16-2023 13:10-0400 Body height 159.38 cm Kera Mccall Other [facility] [employer] Other 04-16-2023 13:10-0400 Body mass index (BMI) [Ratio] 48.06 kg/m2 Kera Mccall Other [employer] [facility] [employer] Other 04-16-2023 13:10-0400 Body temperature 97.8 [degF] Kera Mccall Other [employer] [facility] [employer] Other 04-16-2023 13:10-0400 Body weight 122.11 kg Kera Mccall Other [employer] Other 04-16-2023 13:10-0400 Respiratory rate 18 /min Kera Mccall Other [employer] Other 04-16-2023 13:10-0400 SaO2% (BldA) [Mass fraction] 96 % Kera Mccall Other [employer] Other 02-02-2023 10:00-0400 Body height 159.38 cm Clive Onealdiff Other [employer] Other 02-02-2023 10:00-0400 Body mass index (BMI) [Ratio] 48.06 kg/m2 Clive Onealdiff Other [employer] Other 02-02-2023 10:00-0400 Body weight 122.11 kg Clivekate Onealdiff Other [employer] Other 02-02-2023 10:00-0400 Diastolic blood pressure 73 mm[Hg] Clive Onealdiff Other [employer] Other 02-02-2023 10:00-0400 Respiratory rate 18 /min Clive Onealdiff Other [employer] Other 02-02-2023 10:00-0400 SaO2% (BldA) [Mass fraction] 98 % Clive Jamila Other [employer] Other 02-02-2023 10:00-0400 Systolic blood pressure 98 mm[Hg] Clive Marino Other [employer] Other 12-23-2022 15:00-0400 Body height 159.38 cm Dario Olmedo Other [employer] Other 12-23-2022 15:00-0400 Body mass index (BMI) [Ratio] 48.03 kg/m2 Dario Liceano Other [employer] Other 12-23-2022 15:00-0400 Body weight 122.02 kg Dario Orrdano Other [employer] Other 12-23-2022 15:00-0400 Diastolic blood pressure 84 mm[Hg] Dario Liceano Other [employer] Other 12-23-2022 15:00-0400 SaO2% (BldA) [Mass fraction] 100 % Dario Liceano Other [employer] Other 12-23-2022 15:00-0400 Systolic blood pressure 127 mm[Hg] Dario Liceano Other [employer] Other 12-14-2022 10:30-0400 Body height 159.38 cm Danya Helmler Other [employer] Other 12-14-2022 10:30-0400 Body mass index (BMI) [Ratio] 48.04 kg/m2 Danyaher Helmler Other [employer] Other 12-14-2022 10:30-0400 Body weight 122.06 kg Danya Missler Other [employer] Other 12-14-2022 10:30-0400 Diastolic blood pressure 82 mm[Hg] Danya ler Other [employer] Other 12-14-2022 10:30-0400 Respiratory rate 18 /min Danya Missler Other [employer] Other 12-14-2022 10:30-0400 SaO2% (BldA) [Mass fraction] 97 % Danya Carty Other [employer] Other 12-14-2022 10:30-0400 Systolic blood pressure 124 mm[Hg] Danya Carty Other [employer] Other 12-01-2022 14:00-0400 Body height 159.38 cm Serene Fitt Other [employer] Other 12-01-2022 14:00-0400 Body mass index (BMI) [Ratio] 46.96 kg/m2 Serene Fitt Other [employer] Other 12-01-2022 14:00-0400 Body weight 119.3 kg Serene Fitt Other [employer] Other 11-07-2022 11:00-0500 Body height 159.38 cm Ellie Juan Jose Other [employer] Other 11-07-2022 11:00-0500 Body mass index (BMI) [Ratio] 46.17 kg/m2 Ellie Ingram Other [employer] Other 11-07-2022 11:00-0500 Body weight 117.3 kg Ellie Ingram Other [employer] Other 11-07-2022 11:00-0500 Diastolic blood pressure 74 mm[Hg] Ellie Ingram Other [employer] Other 11-07-2022 11:00-0500 Respiratory rate 18 /min Ellie Ingram Other [employer] Other 11-07-2022 11:00-0500 SaO2% (BldA) [Mass fraction] 99 % Ellie Ingram Other [employer] Other 11-07-2022 11:00-0500 Systolic blood pressure 123 mm[Hg] Ellie Ingram Other [employer] Other 11-03-2022 14:00-0500 Body height 159.38 cm Susana Arrietamond Other [employer] Other 11-03-2022 14:00-0500 Body mass index (BMI) [Ratio] 46.74 kg/m2 Susana Arrietamond Other [employer] Other 11-03-2022 14:00-0500 Body temperature 97.8 [degF] Susana Ellis Other [employer] Other 11-03-2022 14:00-0500 Body weight 118.75 kg Susana Ellis Other [employer] Other 11-03-2022 14:00-0500 Diastolic blood pressure 72 mm[Hg] Susana Arrietamond Other [employer] Other 11-03-2022 14:00-0500 Respiratory rate 8 /min Susana Arrietamond Other [employer] Other 11-03-2022 14:00-0500 SaO2% (BldA) [Mass fraction] 98 % Susana Arrietamond Other [employer] Other 11-03-2022 14:00-0500 Systolic blood pressure 122 mm[Hg] Susana Ellis Other [employer] Other 10-30-2022 11:15-0500 Body height 159.38 cm Danya Missler Other [employer] Other 10-30-2022 11:15-0500 Body mass index (BMI) [Ratio] 46.76 kg/m2 Danya Missler Other [employer] Other 10-30-2022 11:15-0500 Body weight 118.8 kg Danya Missler Other [employer] Other 10-30-2022 11:15-0500 Diastolic blood pressure 70 mm[Hg] Danya Missler Other [employer] Other 10-30-2022 11:15-0500 Respiratory rate 18 /min Danya Missler Other [employer] Other 10-30-2022 11:15-0500 SaO2% (BldA) [Mass fraction] 99 % Danya Missler Other [employer] Other 10-30-2022 11:15-0500 Systolic blood pressure 124 mm[Hg] Danya Missler Other [employer] Other 10-29-2022 11:00-0500 Body height 159.38 cm Ellie Ingram Other [employer] Other 10-29-2022 11:00-0500 Body mass index (BMI) [Ratio] 46.46 kg/m2 Ellie Ingram Other [employer] Other 10-29-2022 11:00-0500 Body temperature 99.8 [degF] Ellie Ingram Other [employer] Other 10-29-2022 11:00-0500 Body weight 118.03 kg Ellie Ingram Other [employer] Other 10-29-2022 11:00-0500 Diastolic blood pressure 80 mm[Hg] Ellie Ingram Other [employer] Other 10-29-2022 11:00-0500 Respiratory rate 18 /min Ellie Ingram Other [employer] Other 10-29-2022 11:00-0500 SaO2% (BldA) [Mass fraction] 98 % Ellie Ingram Other [employer] Other 10-29-2022 11:00-0500 Systolic blood pressure 120 mm[Hg] Ellie Ingram Other [employer] Other 10-08-2022 20:24-0500 Diastolic blood pressure 63 mm[Hg] [facility] 10-08-2022 20:24-0500 Heart rate 96 /min [facility] 10-08-2022 20:24-0500 Respiratory rate 18 /min [facility] 10-08-2022 20:24-0500 SaO2% (BldA) [Mass fraction] 98 % [facility] 10-08-2022 20:24-0500 Systolic blood pressure 135 mm[Hg] [facility] 10-08-2022 16:01-0500 Body height 157.[address] [facility] 10-08-2022 16:01-0500 Body temperature 98.1 [degF] [facility] 10-08-2022 16:01-0500 Body weight [address] [facility] 10-06-2022 12:15-0500 Body height 159.38 cm Serene Bustos Other [employer] Other 10-01-2022 11:00-0500 Body height 159.38 cm Ellie Ingram Other [employer] Other 10-01-2022 11:00-0500 Body mass index (BMI) [Ratio] 45.71 kg/m2 Ellie Ingram Other [employer] Other 10-01-2022 11:00-0500 Body temperature 98.3 [degF] Ellie Martinezault Other [employer] Other 10-01-2022 11:00-0500 Body weight 116.12 kg Ellie Ingram Other [employer] Other 10-01-2022 11:00-0500 Respiratory rate 18 /min Ellie Ingram Other [employer] Other 10-01-2022 11:00-0500 SaO2% (BldA) [Mass fraction] 99 % Ellie Martinezault Other [employer] Other 09-30-2022 08:30-0500 Body height 159.38 cm Danya Missler Other [employer] Other 09-30-2022 08:30-0500 Body mass index (BMI) [Ratio] 45.72 kg/m2 Danya Missler Other [employer] Other 09-30-2022 08:30-0500 Body weight 116.17 kg Danya Missler Other [employer] Other 09-30-2022 08:30-0500 Diastolic blood pressure 81 mm[Hg] Danya Missler Other [employer] Other 09-30-2022 08:30-0500 Respiratory rate 18 /min Danya Missler Other [employer] Other 09-30-2022 08:30-0500 SaO2% (BldA) [Mass fraction] 98 % Danya Missler Other [employer] Other 09-30-2022 08:30-0500 Systolic blood pressure 123 mm[Hg] Danya Missler Other [employer] Other 09-20-2022 11:15-0500 Body height 162.56 cm Susana Arrietamond Other [employer] Other 09-20-2022 11:15-0500 Body mass index (BMI) [Ratio] 43.59 kg/m2 Susana Rhonda Other [employer] Other 09-20-2022 11:15-0500 Body temperature 97.7 [degF] Susana Rhonda Other [employer] Other 09-20-2022 11:15-0500 Body weight 115.21 kg Susana Rhonda Other [employer] Other 09-20-2022 11:15-0500 Diastolic blood pressure 75 mm[Hg] Susana Rhonda Other [employer] Other 09-20-2022 11:15-0500 Respiratory rate 18 /min Susana Rhonda Other [employer] Other 09-20-2022 11:15-0500 SaO2% (BldA) [Mass fraction] 98 % Susana Ellis Other [employer] Other 09-20-2022 11:15-0500 Systolic blood pressure 118 mm[Hg] Susana Ellis Other [employer] Other 09-14-2022 18:00-0500 Body height 162.56 cm Ellie Martinezault Other [employer] Other 09-14-2022 18:00-0500 Body mass index (BMI) [Ratio] 43.59 kg/m2 Ellie Juan Jose Other [employer] Other 09-14-2022 18:00-0500 Body temperature 97.1 [degF] Ellie Martinezault Other [employer] Other 09-14-2022 18:00-0500 Body weight 115.21 kg Ellie Martinezault Other [employer] Other 09-14-2022 18:00-0500 Diastolic blood pressure 94 mm[Hg] Ellie Juan Jose Other [employer] Other 09-14-2022 18:00-0500 Respiratory rate 18 /min Ellie Juan Jose Other [employer] Other 09-14-2022 18:00-0500 SaO2% (BldA) [Mass fraction] 100 % Ellie Juan Jose Other [employer] Other 09-14-2022 18:00-0500 Systolic blood pressure 157 mm[Hg] Ellie Juan Jose Other [employer] [facility] [employer] Other 09-10-2022 20:30-0500 Diastolic blood pressure 72 mm[Hg] [facility] 09-10-2022 20:30-0500 Heart rate 95 /min [facility] 09-10-2022 20:30-0500 Respiratory rate 18 /min [facility] 09-10-2022 20:30-0500 SaO2% (BldA) [Mass fraction] 99 % [facility] 09-10-2022 20:30-0500 Systolic blood pressure 156 mm[Hg] [facility] 09-10-2022 15:46-0500 Body height 165.[address] [facility] 09-10-2022 15:46-0500 Body temperature 99 [degF] [facility] 09-10-2022 15:46-0500 Body weight 115.[address] [facility] 09-10-2022 15:00-0500 Body height 162.56 cm Ellie Juan Jose Other [employer] [facility] [employer] Other 09-10-2022 15:00-0500 Body mass index (BMI) [Ratio] 43.94 kg/m2 Ellie Juan Jose Other [employer] Other 09-10-2022 15:00-0500 Body temperature 98.2 [degF] Ellie Ingram Other [employer] Other 09-10-2022 15:00-0500 Body weight 116.12 kg Ellie Juan Jose Other [employer] Other 09-10-2022 15:00-0500 SaO2% (BldA) [Mass fraction] 98 % Ellie Ingram Other [employer] Other 08-27-2022 15:00-0500 Body height 162.56 cm Ellie Ingram Other [employer] Other 08-27-2022 15:00-0500 Body mass index (BMI) [Ratio] 43.59 kg/m2 Ellie Ingram Other [employer] Other 08-27-2022 15:00-0500 Body temperature 97.8 [degF] Ellie Ingram Other [employer] Other 08-27-2022 15:00-0500 Body weight 115.21 kg Ellie Ingram Other [employer] Other 08-27-2022 15:00-0500 Diastolic blood pressure 64 mm[Hg] Ellie Martinezault Other [employer] Other 08-27-2022 15:00-0500 Respiratory rate 18 /min Ellie Ingram Other [employer] Other 08-27-2022 15:00-0500 SaO2% (BldA) [Mass fraction] 99 % Ellie Martinezault Other [employer] Other 08-27-2022 15:00-0500 Systolic blood pressure 107 mm[Hg] Ellie Martinezault Other [employer] Other 07-30-2022 12:00-0500 Body height 162.56 cm Ellie Martinezault Other [employer] Other 07-30-2022 12:00-0500 Body mass index (BMI) [Ratio] 43.25 kg/m2 Ellie Ingram Other [employer] Other 07-30-2022 12:00-0500 Body temperature 97.6 [degF] Ellie Ingram Other [employer] Other 07-30-2022 12:00-0500 Body weight 114.31 kg Ellie Ingram Other [employer] Other 07-30-2022 12:00-0500 Diastolic blood pressure 72 mm[Hg] Ellie Ingram Other [employer] Other 07-30-2022 12:00-0500 Respiratory rate 18 /min Ellie Ingrma Other [employer] Other 07-30-2022 12:00-0500 SaO2% (BldA) [Mass fraction] 100 % Ellie Ingram Other [employer] Other 07-30-2022 12:00-0500 Systolic blood pressure 135 mm[Hg] Ellie Ingram Other [employer] Other 07-20-2022 12:05-0500 Body height 162.56 cm Ellie Ingram Other [employer] Other 07-20-2022 12:05-0500 Body mass index (BMI) [Ratio] 42.56 kg/m2 Ellie Ingram Other [employer] Other 07-20-2022 12:05-0500 Body temperature 97.8 [degF] Ellie Ingram Other [employer] Other 07-20-2022 12:05-0500 Body weight 112.49 kg Ellie Ingram Other [employer] Other 07-20-2022 12:05-0500 Diastolic blood pressure 71 mm[Hg] Ellie Ingram Other [employer] Other 07-20-2022 12:05-0500 Respiratory rate 18 /min Ellie Ingram Other [employer] Other 07-20-2022 12:05-0500 SaO2% (BldA) [Mass fraction] 99 % Ellie Ingram Other [employer] Other 07-20-2022 12:05-0500 Systolic blood pressure 137 mm[Hg] Ellie Ingram Other [employer] Other 07-02-2022 12:30-0400 Body height 162.56 cm Ellie Ingram Other [employer] Other 07-02-2022 12:30-0400 Body mass index (BMI) [Ratio] 42.56 kg/m2 Ellie Ingram Other [employer] Other 07-02-2022 12:30-0400 Body temperature 98 [degF] Ellie Ingram Other [employer] Other 07-02-2022 12:30-0400 Body weight 112.49 kg Ellie Ingram Other [employer] Other 07-02-2022 12:30-0400 Diastolic blood pressure 84 mm[Hg] Ellie Martinezault Other [employer] Other 07-02-2022 12:30-0400 Respiratory rate 18 /min Ellie Ingram Other [employer] Other 07-02-2022 12:30-0400 SaO2% (BldA) [Mass fraction] 100 % Ellie Ingram Other [employer] Other 07-02-2022 12:30-0400 Systolic blood pressure 129 mm[Hg] Ellie Ingram Other [employer] Other 06-29-2022 11:15-0400 Body height 162.56 cm Pop Blandon Other [employer] Other 06-29-2022 11:15-0400 Body mass index (BMI) [Ratio] 41.19 kg/m2 Pop Blandon Other [employer] Other 06-29-2022 11:15-0400 Body weight 108.86 kg Pop Blandon Other [employer] Other 06-25-2022 17:30-0400 Body height 162.56 cm Ellie Martinezault Other [employer] Other 06-25-2022 17:30-0400 Body mass index (BMI) [Ratio] 41.19 kg/m2 Ellie Martinezault Other [employer] Other 06-25-2022 17:30-0400 Body temperature 97.7 [degF] Ellie Martinezault Other [employer] Other 06-25-2022 17:30-0400 Body weight 108.86 kg Ellie Martinezault Other [employer] Other 06-25-2022 17:30-0400 Diastolic blood pressure 88 mm[Hg] Ellie Ingram Other [employer] Other 06-25-2022 17:30-0400 Respiratory rate 18 /min Ellie Ingram Other [employer] Other 06-25-2022 17:30-0400 SaO2% (BldA) [Mass fraction] 99 % Ellie Ingram Other [employer] Other 06-25-2022 17:30-0400 Systolic blood pressure 135 mm[Hg] Ellie Ingram Other [employer] Other 05-25-2022 18:00-0400 Body height 162.56 cm Ellie Ingram Other [employer] Other 05-25-2022 18:00-0400 Body mass index (BMI) [Ratio] 42.84 kg/m2 Ellie Ingram Other [employer] Other 05-25-2022 18:00-0400 Body temperature 97.9 [degF] Ellie Ingram Other [employer] Other 05-25-2022 18:00-0400 Body weight 113.22 kg Elile Ingram Other [employer] Other 05-25-2022 18:00-0400 Diastolic blood pressure 68 mm[Hg] Ellie Martinezault Other [employer] Other 05-25-2022 18:00-0400 Respiratory rate 18 /min Ellie Juan Jose Other [employer] Other 05-25-2022 18:00-0400 SaO2% (BldA) [Mass fraction] 98 % Ellie Ingram Other [employer] Other 05-25-2022 18:00-0400 Systolic blood pressure 120 mm[Hg] Ellie Ingram Other [employer] Other 05-21-2022 12:30-0400 Body height 162.56 cm Ellie Ingram Other [employer] Other 05-21-2022 12:30-0400 Body mass index (BMI) [Ratio] 43.29 kg/m2 Ellie Ingram Other [employer] Other 05-21-2022 12:30-0400 Body temperature 98 [degF] Ellie Ingram Other [employer] Other 05-21-2022 12:30-0400 Body weight 114.4 kg Ellie Ingram Other [employer] Other 05-21-2022 12:30-0400 Diastolic blood pressure 63 mm[Hg] Ellie Ingram Other [employer] Other 05-21-2022 12:30-0400 Respiratory rate 18 /min Ellie Ingram Other [employer] Other 05-21-2022 12:30-0400 SaO2% (BldA) [Mass fraction] 100 % Ellie Ingram Other [employer] Other 05-21-2022 12:30-0400 Systolic blood pressure 103 mm[Hg] Ellie Ingram Other [employer] Other 04-27-2022 12:30-0400 Body height 162.56 cm Ellie Ingram Other [employer] Other 04-27-2022 12:30-0400 Body mass index (BMI) [Ratio] 43.59 kg/m2 Ellie Ingram Other [employer] Other 04-27-2022 12:30-0400 Body temperature 98.6 [degF] Elile Ingram Other [employer] Other 04-27-2022 12:30-0400 Body weight 115.21 kg Ellie Ingram Other [employer] Other 04-27-2022 12:30-0400 Diastolic blood pressure 81 mm[Hg] Ellie Ingram Other [employer] Other 04-27-2022 12:30-0400 Respiratory rate 18 /min Ellie Ingram Other [employer] Other 04-27-2022 12:30-0400 SaO2% (BldA) [Mass fraction] 98 % Ellie Ingram Other [employer] Other 04-27-2022 12:30-0400 Systolic blood pressure 130 mm[Hg] Ellie Martinezault Other [employer] Other 04-06-2022 11:00-0400 Body height 162.56 cm Ellie Martinezault Other [employer] Other 04-06-2022 11:00-0400 Body mass index (BMI) [Ratio] 43.63 kg/m2 Ellie Ingram Other [employer] Other 04-06-2022 11:00-0400 Body temperature 98.5 [degF] Ellie Ingram Other [employer] Other 04-06-2022 11:00-0400 Body weight 115.31 kg Ellie Ingram Other [employer] Other 04-06-2022 11:00-0400 Diastolic blood pressure 66 mm[Hg] Ellie Ingram Other [employer] Other 04-06-2022 11:00-0400 Respiratory rate 18 /min Ellie Ingram Other [employer] Other 04-06-2022 11:00-0400 SaO2% (BldA) [Mass fraction] 98 % Ellie Ingram Other [employer] Other 04-06-2022 11:00-0400 Systolic blood pressure 131 mm[Hg] Ellie Martinezault Other [employer] Other 03-03-2022 12:05-0400 Body height 162.56 cm Ellie Martinezault Other [employer] Other 03-03-2022 12:05-0400 Body mass index (BMI) [Ratio] 41.19 kg/m2 Ellie Martinezault Other [employer] Other 03-03-2022 12:05-0400 Body temperature 98 [degF] Ellie Ingram Other [employer] Other 03-03-2022 12:05-0400 Body weight 108.86 kg Ellie Ingram Other [employer] Other 03-03-2022 12:05-0400 Diastolic blood pressure 72 mm[Hg] Ellie Ingram Other [employer] Other 03-03-2022 12:05-0400 Respiratory rate 18 /min Ellie Ingram Other [employer] Other 03-03-2022 12:05-0400 SaO2% (BldA) [Mass fraction] 100 % Ellie nIgram Other [employer] Other 03-03-2022 12:05-0400 Systolic blood pressure 116 mm[Hg] Ellie Ingram Other [employer] Other 11-13-2021 16:45-0400 Body height 162.56 cm Pop Blandon Other [employer] Other 11-13-2021 16:45-0400 Body mass index (BMI) [Ratio] 42.91 kg/m2 Pop Blandon Other [employer] Other 11-13-2021 16:45-0400 Body weight 113.4 kg Pop Blandon Other [employer] Other 11-06-2021 14:20-0500 Body height 162.56 cm Ellie Ingram Other [employer] Other 11-06-2021 14:20-0500 Body mass index (BMI) [Ratio] 43.08 kg/m2 Ellie Ingram Other [employer] Other 11-06-2021 14:20-0500 Body temperature 97.7 [degF] Ellie Ingram Other [facility] Other 11-06-2021 14:20-0500 Body weight 113.85 kg Ellie Ingram Other [facility] Other 11-06-2021 14:20-0500 Diastolic blood pressure 70 mm[Hg] Ellie Ingram Other [facility] Other 11-06-2021 14:20-0500 Respiratory rate 18 /min Ellie Ingram Other [employer] Other 11-06-2021 14:20-0500 SaO2% (BldA) [Mass fraction] 99 % Ellie Ingram Other [employer] Other 11-06-2021 14:20-0500 Systolic blood pressure 143 mm[Hg] Ellie Ingram Other [employer] Other 09-29-2021 09:15-0500 Body height 162.56 cm Pop Blandon Other [employer] Other 08-11-2021 16:30-0500 Body height 162.56 cm Edie Singh Other [employer] Other 08-11-2021 16:30-0500 Body mass index (BMI) [Ratio] 43.08 kg/m2 Edie Singh Other [employer] Other 08-11-2021 16:30-0500 Body weight 113.85 kg Edie Singh Other [facility] Other 08-11-2021 16:30-0500 Diastolic blood pressure 88 mm[Hg] Edie Singh Other [facility] Other 08-11-2021 16:30-0500 Respiratory rate 18 /min Edie Singh Other [facility] Other 08-11-2021 16:30-0500 SaO2% (BldA) [Mass fraction] 99 % Edie Singh Other [facility] Other 08-11-2021 16:30-0500 Systolic blood pressure 130 mm[Hg] Edie Singh Other [employer] Other 06-12-2021 15:45-0400 Body height 162.56 cm Edie Singh Other [employer] Other 06-12-2021 15:45-0400 Body mass index (BMI) [Ratio] 42.84 kg/m2 Edie Singh Other [employer] Other 06-12-2021 15:45-0400 Body temperature 98.1 [degF] Edie Singh Other [employer] Other 06-12-2021 15:45-0400 Body weight 113.22 kg Edie Singh Other [facility] Other 06-12-2021 15:45-0400 Diastolic blood pressure 82 mm[Hg] Edie Singh Other [facility] Other 06-12-2021 15:45-0400 Respiratory rate 18 /min Edie Singh Other [facility] Other 06-12-2021 15:45-0400 SaO2% (BldA) [Mass fraction] 99 % Edie Singh Other [facility] Other 06-12-2021 15:45-0400 Systolic blood pressure 132 mm[Hg] Edie Singh Other [employer] Other Encounters Encounter Date Encounter Type Care Provider Facility Start: 04-04-2025 End: 04-04-2025 Telephone encounter Alexis Grace DPM [facility] Start: 03-28-2025 End: 03-28-2025 ambulatory ALEXIS GRACE Not Available Start: 03-28-2025 End: 03-28-2025 Office outpatient new 45 minutes [facility] D[facility] Comment on above: Onychomycosis (Prima ry Dx); Right foot pain; Plantar wart; Left foot pain Start: 03-28-2025 End: 03-28-2025 Bamboo flowsheet Alexis Grace DPM [facility] Start: 03-28-2025 End: 03-28-2025 Bamboo flowsheet Alexis Grace DPM [facility] Start: 01-16-2025 End: 01-16-2025 ambulatory YESENIA NKBOOGIE Facility:[facility] Start: 01-16-2025 End: 01-16-2025 Patient encounter procedure YESENIA LOPEZBOOGIE [facility] Start: 11-30-2024 End: 11-30-2024 Office outpatient visit 15 minutes Martin Larios MD Work Phone: [facility] Comment on above: Postural dizziness w ith near syncope Start: 11-30-2024 End: 11-30-2024 ambulatory MARTIN Abdi [facility] Start: 11-16-2024 End: 11-16-2024 Subsequent hospital visit by physician Teo [facility] Comment on above: Postural dizziness w ith near syncope Start: 11-16-2024 End: 11-16-2024 ambulatory MARTIN Abdi [facility] Start: 11-14-2024 End: 11-14-2024 ambulatory YESENIA NKANSAH-AMANKRA Facility[facility] Start: 11-02-2024 End: 11-02-2024 ambulatory YESENIA JOHNSAWYREAH-AMANKRA Facility:[facility] Start: 10-19-2024 End: 10-19-2024 Admission to same day surgery center YESENIA TREVOR [facility] Start: 10-19-2024 End: 10-19-2024 ambulatory MACHINE ROOM ENGINEER ELLIE INGRAM Facility:[facility] Start: 10-12-2024 End: 10-12-2024 ambulatory ELLIE INGRAM Facility:[facility] Start: 10-12-2024 End: 10-12-2024 Patient encounter procedure YESENIA AVERY-AUSTINRA [facility] Start: 10-09-2024 End: 10-09-2024 ambulatory ELLIEDAVID INGRAM Facility:[facility] Start: 10-09-2024 End: 10-09-2024 Patient encounter procedure YESENIA JOHNSAWYERAH-AMANKRA [facility] Start: 10-06-2024 ambulatory ELLIE INGRAM Facil ity:[facility] Start: 10-04-2024 End: 10-24-2024 Pre-admission assessment Obdulio NuryTracee Matamoros [facility] Start: 08-09-2024 End: 08-09-2024 Office outpatient visit 25 minutes Dario Palacios DO Work Phone: [facility] Comment on above: Lumbar radiculopathy (Primary Dx); Polypharmacy Start: 08-09-2024 End: 08-09-2024 ambulatory DARIO PALACIOS Not Available Start: 08-09-2024 End: 08-09-2024 Bamboo flowsheet Daroi Palacios DO Work Phone: [facility] Start: 08-09-2024 End: 08-09-2024 Bamboo flowsheet Dario Palacios DO Work Phone: [facility] Start: 07-31-2024 End: 07-31-2024 Office outpatient new 45 minutes Martin Larios MD Work Phone: [facility] Comment on above: Postural dizziness w ith near syncope (Primary Dx); Abnormal EKG Start: 07-31-2024 End: 07-31-2024 [facility] Start: 06-22-2024 End: 06-22-2024 ambulatory ELLIE INGRAM Facility:[facility] Start: 05-03-2024 End: 05-03-2024 ambulatory ALYSON INGRAM Facility:[facility] Start: 03-15-2024 End: 03-15-[address] [facility] Work Phone: Start: 03-15-2024 End: 03-15-2024 Patient encounter procedure MD Dario Olmedo Work Phone: [facility] Work Phone: Start: 02-15-2024 End: 02-15-[address] [facility] Start: 02-15-2024 End: 02-15-2024 Subsequent hospital visit by physician Patricia Walker MD Work Phone: [facility] Comment on above: Lumbosacral spondylo sis without myelopathy (Primary Dx) Start: 02-15-2024 End: 02-15-[address] [facility] Start: 02-01-2024 End: 02-01-[address] [facility] Start: 01-20-2024 End: 01-20-2024 ambulatory [facility] Facility:[facility] Start: 01-19-2024 End: 01-19-2024 ambulatory [facility] Start: 01-19-2024 Encounter for gynecological examination (general) (routine) without abnormal findings [facility] Start: 01-19-2024 End: 01-19-2024 Patient encounter procedure [facility] Strip Cutting Machine Operator [facility] Start: 01-19-2024 End: 01-19-2024 Periodic preventive med est patient 40-64yrs [facility] Ob Strip Cutting Machine Operator [facility] Comment on above: Well woman exam with routine gynecological exam (Primary Dx); Encounter for screening mammogram for malignant neoplasm of breast; Standardized adult depression screening tool completed; Skin lesion of right leg Start: 01-02-2024 End: 01-03-2024 Refill Naima Bates APRN-[facility] Work Phone: [facility] [place] Comment on above: Encounter for initia l prescription of contraceptive pills Start: 12-29-2023 Non-patient / Non-visit MD Jesús Olmedo Work Phone: [facility] Work Phone: Start: 12-28-2023 End: 12-28-2023 ambulatory Dario Olmedo Facility:[facility] Start: 12-28-2023 End: 12-28-2023 ambulatory NON STAFF [facility] Work Phone: Start: 12-28-2023 End: 12-28-2023 Patient encounter procedure MD Dario Olmedo Work Phone: [facility] Work Phone: Start: 12-23-2023 ambulatory PATRICIA WALKER [facility] Start: 12-15-2023 End: 12-15-2023 Refill Naima Bates SHOW HOST OR HOSTESS-MACHINE ROOM ENGINEER Work Phone: [facility] [place] Comment on above: Encounter for initia l prescription of contraceptive pills Start: 11-26-2023 End: 11-26-[address] [facility] Work Phone: Start: 11-26-2023 End: 11-26-2023 Patient encounter procedure [facility] Physician [facility] Work Phone: Start: 11-23-2023 End: 11-23-2023 ambulatory ELLIE INGRAM Facility:[facility] Start: 11-09-2023 End: 11-09-2023 ambulatory ELLIE INGRAM Facility:[facility] Start: 10-25-2023 End: 10-25-2023 ambulatory ELLIEDAVID INGRAM Facility:[facility] Start: 10-21-2023 End: 10-21-2023 ambulatory ELLIEDAVID INGRAM Facility:[facility] Start: 10-13-2023 Non-patient / Non-visit MD Jesús Olmedo Work Phone: [facility] Physician [facility] Out[facility] Work Phone: Start: 10-12-2023 End: 10-12-2023 ambulatory ELLIE INGRAM Facility:[facility] Start: 06-18-2023 End: 06-18-2023 ambulatory Dario Palacios Facility:[facility] Start: 06-18-2023 End: 06-18-2023 ambulatory SENIOR JAVA WEB APPLICATION DEVELOPER-C Ellie [facility] Work Phone: Start: 06-18-2023 End: 06-18-2023 Patient encounter procedure SENIOR JAVA WEB APPLICATION DEVELOPER-C [facility] [place] Work Phone: Start: 04-16-2023 End: 04-16-2023 ambulatory Kera Mccall Other [facility] [employer] Other Start: 04-16-2023 Office outpatient vi sit 25 minutes Kera Mccall [facility] Start: 02-24-2023 End: 02-24-2023 ambulatory Dario Olmedo Facility:[facility] Start: 02-24-2023 End: 02-24-2023 ambulatory SENIOR JAVA WEB APPLICATION DEVELOPER-C Ellie Ingram Work Phone: [facility] Work Phone: Start: 02-24-2023 End: 02-24-2023 Patient encounter procedure SENIOR JAVA WEB APPLICATION DEVELOPER-C Ellie Juan Jose Work Phone: [facility] Work Phone: Start: 02-02-2023 Follow-up encounter [facility] Start: 02-02-2023 Telephone encounter [facility] Start: 02-02-2023 End: 02-03-2023 ambulatory Ellie Ingram [facility] [employer] Other Start: 02-02-2023 Registered Recurring SENIOR JAVA WEB APPLICATION DEVELOPER-C L[place] matias Juan Jose Work Phone: [facility] Work Phone: Start: 12-23-2022 Office outpatient ne w 30 minutes Dario Olmedo [facility] Start: 12-23-2022 End: 12-23-2022 ambulatory SENIOR JAVA WEB APPLICATION DEVELOPER-C Ellie Juan Jose Work Phone: [facility] Work Phone: Start: 12-23-2022 End: 12-23-2022 Patient encounter procedure SENIOR JAVA WEB APPLICATION DEVELOPER-C Ellie Juan Jose Work Phone: [facility] Work Phone: Start: 12-16-2022 End: 12-16-2022 ambulatory Serene Fitt Other [employer] Other Start: 12-16-2022 IBT for Obesity subQ 15 min (Max charge 2 units) Serene Bustos [facility] Start: 12-16-2022 Registered Recurring SENIOR JAVA WEB APPLICATION DEVELOPER-C Librado Ingram Work Phone: [facility] Work Phone: Start: 12-14-2022 [facility] f/u Danya [facility] Start: 12-14-2022 End: 12-14-2022 ambulatory Danya Carty Other [employer] Other Start: 12-14-[address] [facility] Start: 12-01-2022 [facility] Init ial Provider Serene Bustos [facility] Start: 12-01-2022 End: 12-01-2022 ambulatory Serene Morenot Other [employer] Other Start: 11-07-2022 Office outpatient vi sit 15 minutes Ellie Ingram [facility] Start: 11-07-2022 End: 11-07-2022 ambulatory NON STAFF [facility] Work Phone: Start: 11-07-2022 End: 11-07-2022 Patient encounter procedure [facility] Work Phone: Start: 11-03-2022 End: 11-03-2022 Patient encounter procedure [facility] Work Phone: Start: 11-03-2022 End: 11-03-2022 ambulatory NON STAFF [facility] Work Phone: Start: 11-03-2022 Office outpatient vi sit 15 minutes Susana Ellis [facility] Start: 10-30-2022 [facility] Weight [facility] f/u Danya Carty [facility] Start: 10-30-2022 End: 10-30-2022 ambulatory Danya Carty Other [employer] Other Start: 10-30-2022 Registered Recurring [facility] Work Phone: Start: 10-29-2022 End: 10-29-2022 ambulatory Ellie Ingram Other [employer] Other Start: 10-29-2022 Office outpatient vi sit 15 minutes Ellie Ingram [facility] Start: 10-08-2022 End: 10-08-2022 Emergency department patient visit [facility] Work Phone: Start: 10-06-2022 End: 10-06-2022 ambulatory Serene Fitt Other [employer] Other Start: 10-06-2022 IBT FOR OBESITY GROU P 2-10 30M Serene Bustos [facility] Start: 10-06-2022 Registered Recurring [facility] Work Phone: Start: 10-01-2022 Office outpatient vi sit 15 minutes Ellie Ingram [facility] Start: 10-01-2022 End: 10-01-2022 ambulatory NON STAFF [facility] Work Phone: Start: 10-01-2022 End: 10-01-2022 Patient encounter procedure [facility] Work Phone: Start: 09-30-2022 End: 09-30-2022 ambulatory Danay Carty Other [employer] Other Start: 09-30-2022 Nutrition therapy Dayna Carty [facility] Start: 09-30-2022 Registered Recurring [facility] Work Phone: Start: 09-25-2022 End: 09-25-2022 ambulatory Ellie Martinezault Other [employer] Other Start: 09-25-2022 Telephone encounter Ellie cisneros [facility] Start: 09-23-2022 End: 09-23-2022 ambulatory Ellie Juan Jose Other [employer] Other Start: 09-23-2022 Telephone encounter Ellienancy cisneros [facility] Start: 09-21-2022 End: 09-22-2022 ambulatory ELLIE JUAN JOSE Facility: Start: 09-20-2022 End: 09-20-2022 ambulatory Susana Ellis Other [employer] Other Start: 09-20-2022 Office outpatient vi sit 15 minutes Susana Rhonda [facility] Start: 09-14-2022 End: 09-14-2022 ambulatory Ellie Martinezault Other [employer] Other Start: 09-14-2022 Office outpatient vi sit 15 minutes Ellie Juan Jose [facility] Start: 09-10-2022 End: 09-10-2022 Emergency department patient visit [facility] Work Phone: Start: 09-10-2022 End: 09-10-2022 ambulatory Ellie Martinezault Other [employer] Other Start: 09-10-2022 Patient encounter procedure Ellie Juan Jose [facility] Start: 09-07-2022 End: 09-07-2022 ambulatory Ellie Juan Jose Other [employer] Other Start: 09-07-2022 Telephone encounter Ellie Breaul t [facility] Start: 08-27-2022 End: 08-27-2022 ambulatory Elliedavid Ingram Other [employer] Other Start: 08-27-2022 Office outpatient vi sit 15 minutes Ellie Juan Jose [facility] Start: 08-17-2022 End: 08-17-2022 ambulatory Ellie Juan Jose Other [employer] Other Start: 08-17-2022 Telephone encounter Ellie Zabrinal t [facility] Start: 07-30-2022 End: 07-30-2022 ambulatory Ellie Juan Jose Other [employer] Other Start: 07-30-2022 Office outpatient vi sit 15 minutes Ellie Juan Jose [facility] Start: 07-20-2022 End: 07-20-2022 ambulatory Ellie Juna Jose Other [employer] Other Start: 07-20-2022 Office outpatient vi sit 15 minutes Ellie Juan Jose [facility] Start: 07-10-2022 End: 07-10-2022 ambulatory Ellie Juan Jose Other [employer] Other Start: 07-10-2022 Telephone encounter Ellie Otiliaaul t [facility] Start: 07-02-2022 End: 07-02-2022 ambulatory Ellie Juan Jose Other [employer] Other Start: 07-02-2022 Office outpatient vi sit 15 minutes Ellie Juan Jose [facility] Start: 06-30-2022 End: 06-30-2022 ambulatory Ellie Juan Jose Other [employer] Other Start: 06-30-2022 Telephone encounter Ellie cisneros [facility] Start: 06-29-2022 End: 06-29-2022 ambulatory Pop Blandon Other [employer] Other Start: 06-29-2022 Office outpatient vi sit 15 minutes Pop Jamia [facility] [place] Start: 06-25-2022 End: 06-25-2022 ambulatory Ellie Juan Jose Other [employer] Other Start: 06-25-2022 Office outpatient vi sit 15 minutes Ellienancy Ingram [facility] Start: 06-22-2022 (Procedure) Kat Blandon [facility] Start: 06-22-2022 End: 06-22-2022 ambulatory Pop Blandon Other [employer] Other Start: 06-11-2022 End: 06-11-2022 ambulatory Ellie Juan Jose Other [employer] Other Start: 06-11-2022 Telephone encounter Ellie cisneros [facility] Start: 06-05-2022 End: 06-06-2022 ambulatory ELLIEDAVID INGRAM Facility: Start: 06-01-2022 (Procedure) Kat Blandon [facility] Start: 06-01-2022 End: 06-01-2022 ambulatory Pop Blandon Other [employer] Other Start: 05-25-2022 End: 05-25-2022 ambulatory Ellie Juan Jose Other [employer] Other Start: 05-25-2022 Office outpatient vi sit 25 minutes Ellie Juan Jose [facility] Start: 05-21-2022 End: 05-21-2022 ambulatory Ellie Juan Jose Other [employer] Other Start: 05-21-2022 Office outpatient vi sit 15 minutes Ellie Juan Jose [facility] Start: 05-08-2022 End: 05-08-2022 ambulatory Elliedavid Ingram Other [employer] Other Start: 05-08-2022 Telephone encounter Ellie cisneros [facility] Start: 04-27-2022 End: 04-27-2022 ambulatory Elliedavid Ingram Other [employer] Other Start: 04-27-2022 Office outpatient vi sit 15 minutes Ellie Juan Jose [facility] Start: 04-22-2022 End: 04-22-2022 ambulatory Pop Blandon Other [employer] Other Start: 04-22-2022 Office outpatient vi sit 25 minutes Pop Blandon [facility] [place] Start: 04-16-2022 End: 04-16-2022 ambulatory Pop Blandon Other [employer] Other Start: 04-16-2022 Telephone encounter Pop Glynn [facility] Start: 04-13-2022 (Procedure) Short Pop Blandon [facility] Start: 04-13-2022 End: 04-13-2022 ambulatory Pop Blandon Other [employer] Other Start: 04-06-2022 Office outpatient vi sit 15 minutes Ellienancy Ingram [facility] Start: 04-06-2022 End: 04-07-2022 ambulatory ELLIE JUAN JOSE [employer] Other Start: 03-03-2022 End: 03-03-2022 ambulatory Ellie Juan Jose Other [employer] Other Start: 03-03-2022 Office outpatient vi sit 15 minutes Ellie Juan Jose [facility] Start: 01-28-2022 End: 01-28-2022 ambulatory Pop Arceshady Other [employer] Other Start: 01-28-2022 Telephone encounter Pop Blandon [facility] [place] Start: 01-21-2022 End: 01-21-2022 ambulatory Pop Arceshady Other [employer] Other Start: 01-21-2022 Telephone encounter Pop Blandon [facility] Start: 01-15-2022 End: 01-15-2022 ambulatory Pop Yazminshady Other [employer] Other Start: 01-15-2022 Office outpatient vi sit 25 minutes Pop Yazminshady [facility] [place] Start: 12-11-2021 End: 12-11-2021 ambulatory Pop Yazminer Other [employer] Other Start: 12-11-2021 Office outpatient vi sit 25 minutes Pop Blandon [facility] [place] Start: 12-03-2021 (Procedure) Short Pop Blandon [facility] Start: 12-03-2021 End: 12-03-2021 ambulatory Pop Yazminshady Other [employer] Other Start: 11-14-2021 End: 11-14-2021 ambulatory Pop Yazminshady Other [employer] Other Start: 11-14-2021 Telephone encounter Pop FISH G [facility] Start: 11-13-2021 End: 11-13-2021 ambulatory Pop Yazminer Other [employer] Other Start: 11-13-2021 Office outpatient vi sit 25 minutes Pop Yazminshady [facility] [place] Start: 11-06-2021 End: 11-06-2021 ambulatory Ellie Ingram Other [employer] Other Start: 11-06-2021 Office outpatient vi sit 15 minutes Ellie Ingram [facility] Start: 11-06-2021 Telephone encounter Edie [facility] Start: 10-29-2021 End: 10-29-2021 ambulatory Pop Blandon Other [employer] Other Start: 10-29-2021 Telephone encounter Pop Blandon [facility] Start: 09-29-2021 End: 09-29-2021 ambulatory Pop Blandon Other [employer] Other Start: 09-29-2021 Office outpatient vi sit 25 minutes Pop Blandon [facility] [place] Start: 09-25-2021 End: 09-25-2021 ambulatory Edie Singh Other [employer] Other Start: 09-25-2021 Telephone encounter Edie [facility] [place] Start: 08-19-2021 End: 08-19-2021 ambulatory Edie Singh Other [employer] Other Start: 08-19-2021 Telephone encounter Edie Lewis [facility] [place] Start: 08-11-2021 End: 08-11-2021 ambulatory Edie Singh Other [employer] Other Start: 08-11-2021 Office outpatient vi sit 15 minutes Edie Singh [facility] [place] Start: 06-12-2021 Office outpatient vi sit 15 minutes Edie Singh [facility] [place] Start: 08-10-2020 End: 08-13-2020 Patient encounter procedure EDIE SINGH [facility] Start: 08-10-2020 End: 08-12-2020 Subsequent hospital visit by physician [facility] Mri [facility] MRI Comment on above: Left elbow pain Procedures Date Procedure Procedure Detail Performing Clinician Start: 10-19-2024 Cystoscopy YESENIA HYMAN Start: 07-31-2024 Ecg routine ecg w/le ast 12 lds w/i&r Martin Larios MD Work Phone: Start: 01-19-2024 Adult depression screening assessment [facility] Strip Cutting Machine Operator Start: 06-18-2023 MR lumbar spine wo con SENIOR JAVA WEB APPLICATION DEVELOPER-C Ellie Ingram Start: 01-01-2023 End: 01-01-2023 Mammography Naima Paulo [employer] Work Phone: Start: 11-07-2022 Plain X-ray of right hip Start: 11-03-2022 X-ray of right knee Start: 10-08-2022 Plain chest X-ray Start: 10-01-2022 Plain chest X-ray Start: 09-10-2022 Computed tomography of abdomen and pelvis with contrast Start: 11-26-2020 Microscopic observat ion [Identifier] in Cervix by Cyto stain Naima Bates [employer]NExt[employer] Work Phone: Start: 08-10-2020 Mri any jt upper extremity w/o contrast john SINGH Start: 08-10-2020 Mri any jt upper extremity w/o contrast john Singh Work Phone: Spinal nerve structu re (body structure) YESENIA YUSUF Plan of Treatment Date Care Activity Detail Author Start: 01-21-2026 ambulatory Ambulatory Facility:[facility] Start: 05-31-2025 End: 05-31-2025 Patient encounter procedure 05/31/2025 1:15 PM EDT Office Visit [facility] Medical Office Building [address] [facility] [address] [place] [address] [place] [id number] [place] [address] [facility] Medical Office Building Start: 05-02-2025 End: 05-02-2025 Patient encounter procedure 05/02/2025 3:00 PM EDT Office Visit [facility] [address] [place] [id number] Alexis Grace DPM [address] [place], [place] [id number] [facility] Start: 04-30-2025 Influenza vaccination [facility] Start: 04-04-2025 End: 04-04-2026 Alanine aminotransferase [Enzymatic activity/volume] in Serum or Plasma ALT Lab Routine Onychomycosis Expected: 04/04/2025 (Approximate), Expires: 04/04/[address] [facility] Work Phone: Comment on above: Expected: 04/04/2025 (Approximate), Expires: 04/04/2026 Start: 04-04-2025 End: 04-04-2026 Aspartate aminotransferase [Enzymatic activity/volume] in Serum or Plasma AST Lab Routine Onychomycosis Expected: 04/04/2025 (Approximate), Expires: 04/04/[address] [facility] Comment on above: Expected: 04/04/2025 (Approximate), Expires: 04/04/2026 Start: 01-18-2025 Adult BMI Screening Adult BMI Screen ing [facility] Start: 01-18-2025 Depression Screening Depression Scre ening [facility] Start: 01-18-2025 Medicare Annual Well ness (AWV) Medicare Annual Wellness (AWV) [facility] Start: 01-18-2025 Tobacco Screening Tobacco Screening [facility] Start: 01-01-2025 Screening for malign ant neoplasm of breast Breast cancer screen [facility] [employer] [facility] Start: 11-30-2024 End: 11-30-2024 Patient encounter procedure 11/30/2024 2:00 PM EDT Office Visit [facility] Medical Office Building [address] [place] [address] [address] [place] [address] [place] [id number] [place] [address] [facility] Medical Office Building Start: 10-16-2024 End: 10-16-2024 Patient encounter procedure 10/16/2024 10:00 AM EST Office Visit [address] [place] [address] Martin Larios MD [address] [place] [address] [address] [place] [address] [facility] Start: 10-05-2024 End: 10-05-2024 Patient encounter procedure 10/05/2024 8:00 AM EST Appointment [place] [id number] [phone] [facility] Start: 08-09-2024 End: 08-09-2024 Patient encounter procedure 08/09/2024 3:30 PM EST Office Visit [facility] [address] [place] [phone] Dario Palacios DO [address] [place] [address] Arrived [facility] Comment on above: Arrived Start: 07-31-2024 End: 07-31-2026 Tilt table study Tilt table Cardiac Services Routine Postural dizziness with near syncope Expected: 07/31/2024 (Approximate), Expires: 07/31/2026 [facility] Service Area Work Phone: Comment on above: Expected: 07/31/2024 (Approximate), Expires: 07/31/2026 Start: 04-30-2024 Influenza vaccination [facility] Start: 03-30-2024 Influenza vaccination Flu vacc ine (Season Ended) [facility] Start: 01-19-2024 End: 01-18-2025 DBT Breast - bilateral screening Mammography screening bilateral with CAD Imaging Routine Encounter for screening mammogram for malignant neoplasm of breast Expected: 01/19/2024, Expires: 01/18/2025 [facility] Work Phone: Comment on above: Expected: 01/19/2024 , Expires: 01/18/2025 Start: 01-19-2024 End: 01-19-2024 Patient encounter procedure 01/19/2024 10:00 AM EDT Office Visit [facility] [address] [phone] [facility] [place] Start: 01-02-2024 Screening for malign ant neoplasm of breast Mammogram [facility] Start: 12-16-2023 Adult BMI Follow Up Plan Adult BMI Follow Up Plan [facility] Start: 12-16-2023 Adult BMI Screening Adult BMI Screen ing [facility] Start: 12-16-2023 Tobacco Screening Tobacco Screening [facility] Start: 11-27-2023 Screening for malign ant neoplasm of cervix Pap Smear [facility] Start: 04-30-2023 COVID-19 Vaccine ( season) COVID-19 Vaccine ( season) [facility] Start: 11-11-2021 Administration of varicella zoster vaccine Zoster (Shingles) Vaccine (1 of 2) [facility] Start: 11-11-2021 Shingles vaccine (1 of 2) Jones gles vaccine (1 of 2) [facility] Start: 11-11-2021 Zoster Vaccines (1 of 2) Zoste r Vaccines (1 of 2) [facility] Start: 04-30-2020 Influenza vaccination Flu vaccine (# 1) [facility] [place] Start: 11-11-2016 Screening for malign ant neoplasm of colon [facility] Start: [address] [facility] Start: 11-11-2006 Diabetes screen Diabetes screen [facility] Start: 11-11-2001 Screening for malign ant neoplasm of cervix [facility] Start: 11-11-1993 DTaP/Tdap/Td Vaccine s (1 - Tdap) DTaP/Tdap/Td Vaccines (1 - Tdap) [facility] Start: 11-11-1992 Screening for malign ant neoplasm of cervix [facility] Start: 11-11-1990 DTaP,Tdap and Td Vac cines (1 - Tdap) DTaP,Tdap and Td Vaccines (1 - Tdap) [facility] Start: 11-11-1990 DTaP/Tdap/Td vaccine (1 - Tdap) DTaP/Tdap/Td vaccine (1 - Tdap) [facility] Start: 11-11-1990 Hepatitis B Vaccines (1 of 3 - 19+ 3-dose series) Hepatitis B Vaccines (1 of 3 - 19+ 3-dose series) [facility] Start: 11-11-1990 Pneumococcal vaccination Pneum ococcal Vaccine (1 of 2 - PCV) [facility] Start: 11-11-1989 Diabetes mellitus screening Diabetes Screening [facility] Start: 11-11-1989 Hepatitis C screening [facility] Start: 11-11-1986 HIV screening HIV screen [facility] Start: 1983 Depression Screen Depression Screen [facility] Start: 1983 Depression Screening Depression Scre ening [facility] Start: 11-11-1976 COVID-19 Vaccine (#1) COVID-19 Vacci ne (#1) [facility] Start: 11-11-1972 MMR Vaccines (1 of 1 - Standard series) MMR Vaccines (1 of 1 - Standard series) [facility] Start: 1971 Annual wellness visit Welcome to Medicare Visit [facility] Start: 1971 Hepatitis B vaccine (1 of 3 - 3-dose series) Hepatitis B vaccine (1 of 3 - 3-dose series) [facility] Start: 1971 HIV screening HIV Screening [facility] Start: 1971 Lipid panel Lipid Panel [facility] Start: 1971 Screening for malign ant neoplasm of colon [facility] Patient Education [facility] Work Phone: Patient referral [facility] Work Phone: End: 11-16-2024 Tilt table study [facility] Service Area Work Phone: Comment on above: Once for 1 Occurrenc es starting 11/16/2024 until 11/16/2024 Immunizations Immunization Date Immunization Notes Care Provider Fa cility 06-06-2021 SARS-CoV-2 (COVID-19 ) mRNA BNT-162b2 vax YESENIALUISITO AVERY-AMANKRA [facility] 05-15-2021 SARS-CoV-2 (COVID-19 ) mRNA BNT-162b2 vax YESENIA JOHNANSAH-AMANKRA [facility] 05-15-2021 influenza virus vaccine, unspecified formulation Naima Lloydo [facility] Work Phone: [facility] 03-11-2021 Toradol 30 mg/ml Edie Wid ashli Other [facility] 03-11-2021 KENALOG - 10 mg Edie Widm er Other [facility] Other 02-17-2021 Toradol 30 mg/ml Edie Wid ashli Other [facility] Other 06-10-2020 Depo-Medrol 80 mg Edie Wi dmer Other [facility] Other 06-19-2019 Depo-Medrol 40 mg Edie Wi dmer Other [facility] Other 11-28-2018 Toradol per 15 mg Edie Wi dmer Other [facility] Other 11-28-2018 Depo-Medrol 80 mg Edie Wi dmer Other [facility] Other Payers Date Payer Category Payer Private Health Insurance [id number] 2024 Dual Eligibility Medicare/Medicaid Organization [facility] [address] [id number] 2024 Private Health Insurance [id number] 2024 Medicare MEDICARE [id number] 2024 Medicare (Managed Care) 1.2. [id number] 2024 Private Health Insurance [id number] 2022 Medicaid [id number] 2022 Self-pay [id number] 2018 Unknown [id number] 1971 Unknown [id number] 2.16.840.1.865007.3.579.2 .175 1971 Unknown [id number] 2.16.840.1.034671.3.579.2 .593 1971 Unknown [id number] 2.16.840.1.610765.3.579.2 .593 1971 Unknown [id number] 2.16.840.1.855659.3.579.2 .593 1971 Unknown [id number] 2.16.840.1.798459.3.579.2 .1286 1971 Unknown [id number] 2.16.840.1.390131.3.579.2 .727 1971 Unknown [id number] 2.16.840.1.992872.3.579.2 .727 1971 Unknown [id number] 2.16.840.1.623715.3.579.2 .727 1971 Unknown [id number] 2.16.840.1.603833.3.579.2 .727 1971 Unknown [id number] 2.16.840.1.243844.3.579.2 .727 1971 Unknown [id number] 2.16.840.1.255982.3.579.2 .727 1971 Unknown [id number] 2.16.840.1.870411.3.579.2 .182 1971 Unknown [id number] 2.16.840.1.421521.3.579.2 .182 1971 Unknown [id number] 2.16.840.1.102098.3.579.2 .182 1971 Unknown [id number] 2.16.840.1.137959.3.579.2 .182 1971 Unknown [id number] 2.16.840.1.257917.3.579.2 .182 1971 Unknown [id number] 2.16.840.1.124901.3.579.2 .727 1971 Unknown [id number] 2.16.840.1.642224.3.579.2 .727 1971 Unknown [id number] 2.16.840.1.205092.3.579.2 .727 1971 Unknown [id number] 2.16.840.1.465464.3.579.2 .727 1971 Unknown [id number] 2.16.840.1.360954.3.579.2 .727 1971 Unknown [id number] 2.16.840.1.395713.3.579.2 .727 1971 Unknown [id number] 2.16.840.1.079780.3.579.2 .727 1971 Unknown [id number] 2.16.840.1.500832.3.579.2 .72 1971 Unknown [id number] 2.16.840.1.416329.3.579.2 .727 1971 Unknown [id number] 2.16.840.1.521247.3.579.2 .1971 Unknown [id number] 2.16.840.1.814158.3.579.2 .1243 1971 Unknown [id number] 2.16.840.1.740441.3.579.2 .1244 1971 Unknown [id number] 2.16.840.1.702797.3.579.2 .1244 1971 Unknown [id number] 2.16.840.1.383569.3.579.2 .72 1971 Unknown [id number] 2.16.840.1.793762.3.579.2 .727 1971 Unknown [id number] 2.16.840.1.557882.3.579.2 .1259 1971 Unknown [id number] 2.16.840.1.602318.3.579.2 .1259 1959 Medicaid [id number] 2.16.840.1.949466.19 Medicaid [facility] [id number] Unknown [id number] 2.16.840.1.222896.19 Unknown HCAP/HFA/FAP Active [id number] Unknown [facility] [id number] Unknown [id number] 2.16.840.1.555573.3.579.2 .531 Unknown [id number] 2.16.840.1.812815.3.579.2 .531 Unknown [id number] 2.16.840.1.352425.3.579.2 .531 Unknown [id number] 2.16.840.1.312505.3.579.2 .531 Social History Date Type Detail Facility Tobacco smoking status RIIS Unknown if ever smoked [place], [place] Start: 1970 Sex Assigned At Not on file M [place], [place] Start: 07-31-2024 End: 11-16-2024 Sex Assigned At [facility] Start: 09-10-2022 End: 11-14-2024 Tobacco smoking status NHIS Never smoked tobacco (finding) [facility] Start: 1970 Sex Assigned At Female F [facility] Tobacco smoking status RIIS Tobacco smoking consumption unknown [facility] Start: 12-15-2022 End: 07-31-2024 Tobacco use and exposure Smokeless tobacco non-user [facility] Start: 07-31-2024 End: 11-16-2024 Alcoholic beverage intake Lifetime non-drinker (finding) [facility] Work Phone: Start: 07-31-2024 End: 11-16-2024 History of Social function [facility] Start: 07-21-2024 End: 11-30-2024 Exposure to SARS-CoV-2 (event) Not sure [facility] Start: 01-01-2023 End: 01-19-2024 Alcoholic beverage intake [facility] Unknown [facility] Start: 03-28-2020 Alcohol Comment [facility] Sexual Orientation [facility] Start: 12-02-2022 Sex Female (finding) [facility] NEGATED: Highlighted rowStart: NINF History of tobacco use Passive smoker [facility] Medical Equipment Procedure Code Equipment Code Equipment Origin al Text Equipment Identifier Dates Start: 09-30-2022 CYSTOSCOPY W/ HO MIUM LASER TREVOR RAMIREZ, YESENIA 10/19/24 Unknown [facility] FDA Start: 10-19-2024 CYSTOSCOPY W/ HO MIUM LASER TREVOR RAMIREZ, YESENIA 10/19/24 Unknown [facility] FDA Start: 10-19-2024 CYSTOSCOPY W/ HO MIUM LASER TREVOR RAMIREZ, YESENIA 10/19/24 Unknown [facility]reter R FDA Start: 10-19-2024 Functional Status Date Assessment Result Facility 10-12-2024 Functional Status No [facility] 10-09-2024 Functional Status N/A [facility] Clinical Notes 06-12-2021 to 04-04-2025 Telephone Encounter - Alexis Grace DPM - 04/04/2025 8:42 AM EDTTelephone Encounter - Alexis Grace DPM - 04/04/2025 8:42 AM Ye Grace DPM - 03/28/2025 2:30 PM EDT Note Date & Type Note Facility 04-04-2025 Telephone encounter Note Nail specimen consistent with onychomycosis. Liver enzyme test ordered and [facility] Miscellaneous Notes Nail specimen consistent with onychomycosis. Liver enzyme test ordered and sent to [facility]. Thank you. documented in this encounter [facility] 03-28-2025 History of Present illness Narrative Images from the original note were not included. Subjective Patient ID: Joselito Vidal is a 54 y.o. 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 Patient states she has pain with this. Patient states she had cryotherapy with PCP at the of November and it did not work. Patient also relates fungal nails with 4th and 5th digits with right foot. ). HPI This is a new patient who presents to clinic with multiple concerns. Patient is concerned about thickened, yellow toenail digits 4, 5 on the right foot. She has noticed this for about a month. She states that her sister was painting her nails and noticed that they were getting quite thick. She has not tried any treatment. They are mildly uncomfortable when she wears closed toed shoes. She is also concerned about a painful lesion on the lateral aspect of the left 5th metatarsal head. Her primary care physician told her that it was a plantar wart and they did a single cryotherapy treatment without improvement. It is quite painful when she wears shoes that put pressure over the outside of her foot. Review of Systems Constitutional: Negative for activity change and appetite change. Respiratory: Negative for chest tightness and shortness of breath. Cardiovascular: Negative for chest pain. Musculoskeletal: Positive for arthralgias and gait problem. Skin: Negative for color change and wound. Neurological: Negative for weakness and numbness. Psychiatric/Behavioral: Negative for agitation and behavioral problems. Hematological: Does not bruise/bleed easily. Endocrine: Negative for cold intolerance and heat intolerance. Allergic/Immunologic: Negative for immunocompromised state. Past medical History History reviewed. No pertinent past medical history. Medications Current Outpatient Medications: hnqnugnvja-gronteipfbwig-qeeavaz e 50-325-40 MG tablet, Take 1 tablet by mouth every 4 (four) hours if needed for headaches, Disp: , Rfl: cetirizine (ZyrTEC) 10 MG tablet, Take 10 mg by mouth Daily, Disp: , Rfl: Dulaglutide (Trulicity) 3 MG/0.5ML solution auto-injector, Inject under the skin, Disp: , Rfl: DULoxetine (Cymbalta) 60 MG capsule, Take 60 mg by mouth in the morning and 60 mg before bedtime. Do not crush or chew., Disp: , Rfl: empagliflozin (Jardiance) 25 MG, Take 25 mg by mouth Daily, Disp: , Rfl: fludrocortisone (Florinef) 0.1 MG tablet, Take by mouth, Disp: , Rfl: gabapentin (Neurontin) 400 MG capsule, Take 400 mg by mouth in the morning and 400 mg in the evening and 400 mg before bedtime., Disp: , Rfl: hydrOXYzine HCl (Atarax) 50 MG tablet, Take 50 mg by mouth every 8 (eight) hours if needed for itching, Disp: , Rfl: metoprolol tartrate (Lopressor) 25 MG tablet, Take 25 mg by mouth in the morning and 25 mg before bedtime., Disp: , Rfl: midodrine (Proamatine) 2.5 MG tablet, Take 2.5 mg by mouth in the morning and 2.5 mg in the evening and 2.5 mg before bedtime., Disp: , Rfl: pantoprazole (ProtoNix) 20 MG EC tablet, Take 20 mg by mouth in the morning. Take before meals. Do not crush, chew, or split., Disp: , Rfl: tiZANidine (Zanaflex) 4 MG capsule, Take 4 mg by mouth in the morning and 4 mg in the evening and 4 mg before bedtime., Disp: , Rfl: topiramate (Topamax) 25 MG tablet, Take 25 mg by mouth in the morning and 25 mg before bedtime., Disp: , Rfl: ondansetron (Zofran) 8 MG tablet, Take 8 mg by mouth every 8 (eight) hours if needed for nausea or vomiting (Patient not taking: Reported on 03/28/2025), Disp: , Rfl: spironolactone (Aldactone) 25 MG tablet, Take 25 mg by mouth Daily (Patient not taking: Reported on 03/28/2025), Disp: , Rfl: Allergies Patient has no known allergies. Past Surgical History Past Surgical History: Procedure Laterality Date KIDNEY STONE SURGERY 09/2024 Family History No family history on file. Objective Physical Exam Constitutional: General: She is not in acute distress. Appearance: She is obese. HENT: Head: Atraumatic. Cardiovascular: Pulses: Normal pulses. Musculoskeletal: Cervical back: No tenderness. Skin: Capillary Refill: Capillary refill takes less than 2 seconds. Comments: Right foot: Digits 4, 5 exhibit total dystrophic mycosis encompassing 100 percent of the 5th toenail and 75 percent of the 4th toenail. There is yellow/brown discoloration, crumbly texture, subungual debris. Tenderness with manipulation of the toenails. Left foot: Verrucous lesion lateral aspect of the 5th metatarsal head. There is pinpoint, thrombosed capillaries. Interruption of skin lines. Tenderness with compression. Measures 0.4 cm in diameter. Neurological: General: No focal deficit present. Mental Status: She is alert. Psychiatric: Mood and Affect: Mood normal. Behavior: Behavior normal. Assessment/Plan ICD-10-CM 1. Onychomycosis B35.1 2. Right foot pain M79.671 3. Plantar wart B07.0 4. Left foot pain M79.672 Patient was examined and evaluated. Clinically patient seems to have onychomycosis of the 4th and 5th toes of the right foot and I discussed causes and treatment options. Treatment options were laid out including observation versus periodic debridement versus topical or oral antifungals. Additionally I have discussed chemical matrixectomy. At this time the patient elects for oral antifungal therapy. A clean nail nipper was utilized to take a sample of the affected 4th toenail and sent for pathological examination, fungal stain, and culture to guide antifungal therapy. A nail nipper and electric bur grinder needle tip were also utilized to debride the affected nails to help reduce fungal load and to palliate the symptomatic nails. I will review the nail specimen and if there is fungal disease present I will order liver enzyme tests to [facility] in [place] to ensure adequate liver function prior to beginning oral antifungal therapy. When I receive these results I will prescribe oral antifungal therapy if appropriate. Additionally she has a lesion which seems to be clinically consistent with a plantar wart on the left foot. I discussed treatment options and recommended initial treatment with debridement and chemical cauterization of the verrucous tissue. Informed consent was obtained. Utilizing a sterile #15 blade I debrided all hyperkeratotic tissue surrounding the lesion down to pinpoint bleeding at the base of the verrucous tissue. One 30 second application of 10% phenol was performed followed by one 30 second application of 1% cantharidin. The lesion was then packed with 55% salicylic acid and an occlusive offloading dressing was applied. This is to stay intact for 3-5 days at which point it can be removed. I've instructed that a Band-Aid can be placed over the lesion if it is sore after removing the offloading pad. I have discussed that it may take multiple treatments to clear the verrucous tissue. Follow-up in one month. This note was created with the assistance of a speech recognition program. While intending to generate a timely document that accurately reflects the content of the visit, no guarantee can be provided that every grammatical or spelling mistake has been or will be identified or corrected. Thank you for your understanding. Alexis Grace DPM documented in this encounter [facility] 11-30-2024 History of Present illness Narrative [facility] Office Follow-up: Dizziness, Syncope, Follow-up, and Results Patient previously seen for postural dizziness. At the previous encounter, the patient seen and evaluated, testing ordered. After the encounter the patient completed the following testing: tilt positive for POTS There were no interval changes in medical history before this appointment. Today the patient reports: no syncope but some dizziness. Sits down if feels dizzy. Additional recent non-cardiac testing includes: none ROS: Remainder of 12 review of systems is negative aside from chief complaint. PHYSICAL EXAM Vitals: 11/30/24 1226 BP: 118/74 BP Location: Left arm Patient Position: Sitting Pulse: 70 Weight: 115 kg (252 lb 9.6 oz) Height: 1.575 m (5' 2 ) General: No acute distress, appears comfortable Cardiac: Regular rate and rhythm with no murmurs rubs or gallops, normal S1-S2 Pulmonary: Clear to auscultation bilaterally with no rales or rhonchi, normal respiratory effort Gastrointestinal: Soft abdomen with no tenderness or guarding, no rebound Musculoskeletal: No lower extremity edema, normal Neurological: Alert and oriented x 4, appropriate, moving all extremities well, normal affect Psychiatric: Normal affect, mood appropriate to occasion Skin: No rashes, hives or jaundice HEENT: Normocephalic, atraumatic. Pupils equal round and reactive. Assessment/Plan Diagnoses and all orders for this visit: Postural dizziness with near syncope - Follow Up In Cardiology - Follow Up In Cardiology; Future Assessment and plan (narrative): Joselito Vidal is a 54 y.o. female with tilt-confirmed POTS. Will continue lifestyle modification, salt intake, hydration, compression. Remains on midrodrine, seems to help Doing ok wants to continue same meds. Followup: 6 months Martin Larios MD Director of Interventional Cardiology [facility] documented in this encounter [facility] Work Phone: 11-16-2024 Miscellaneous Notes Physician Transition of Care Summary Invasive Cardiovascular Lab Procedure Date: 11/16/2024 Attending: * No surgeons found in log * Resident/Fellow/Other Proposal Editor: * No surgeons found in log * Indications: Pre-syncope Post-procedure diagnosis: POTS Procedure(s): Tilt-Table Test Procedure Findings: Conclusion: Abnormal Tilt table testing for Neurally Mediated Syncope Description of the Procedure: Cardio-inhibitory response: No Vasodepressor response: No Syncope: No Comments: While on standing position, the patient had sudden elevation in the heart rate ~120bpm associated with symptoms of lightheadedness, suggestive of postural orthostatic tachycardia syndrome - POTS. No hypotension, bradycardia or syncopal episode. No complications. Complications: No Stents/Implants: Implants No implant documentation for this case. Anticoagulation/Antiplatelet Plan: No Estimated Blood Loss: * No values recorded between 11/16/2024 9:39 AM and 11/16/2024 11:48 AM * Anesthesia: * No anesthesia type entered * Anesthesia Staff: No anesthesia staff entered. Any Specimen(s) Removed: No specimens collected during this procedure. Disposition: Home Electronically signed by: Scott Bridges MD, 11/16/2024 2:14 PM documented in this encounter [facility] Work Phone: 11-16-2024 Surgery Postoperative evaluation and management note Physician Transition of Care Summary Invasive Cardiovascular Lab Procedure Date: 11/16/2024 Attending: * No surgeons found in log * Resident/Fellow/Other Proposal Editor: * No surgeons found in log * Indications: Pre-syncope Post-procedure diagnosis: POTS Procedure(s): Tilt-Table Test Procedure Findings: Conclusion: Abnormal Tilt table testing for Neurally Mediated Syncope Description of the Procedure: Cardio-inhibitory response: No Vasodepressor response: No Syncope: No Comments: While on standing position, the patient had sudden elevation in the heart rate ~120bpm associated with symptoms of lightheadedness, suggestive of postural orthostatic tachycardia syndrome - POTS. No hypotension, bradycardia or syncopal episode. No complications. Complications: No Stents/Implants: Implants No implant documentation for this case. Anticoagulation/Antiplatelet Plan: No Estimated Blood Loss: * No values recorded between 11/16/2024 9:39 AM and 11/16/2024 11:48 AM * Anesthesia: * No anesthesia type entered * Anesthesia Staff: No anesthesia staff entered. Any Specimen(s) Removed: No specimens collected during this procedure. Disposition: Home Electronically signed by: Scott Bridges MD, 11/16/2024 2:14 PM [facility] Work Phone: 11-14-2024 Note Patient Education Nephrology Dietary Guidelines to Help Prevent Kidney Stones Kidney stones are deposits of minerals and salts that form inside your kidneys. Your risk of developing kidney stones may be greater depending on your diet, your lifestyle, the medicines you take, and whether you have certain medical conditions. Most people can lower their risks of developing kidney stones by following these dietary guidelines. Your dietitian may give you more specific instructions depending on your overall health and the type of kidney stones you tend to develop. What are tips for following this plan? Reading food labels ??? Choose foods with no salt added or low-salt labels. Limit your salt (sodium) intake to less than 1,500 mg a day. ??? Choose foods with calcium for each meal and snack. Try to eat about 300 mg of calcium at each meal. Foods that contain 200?500 mg of calcium a serving include: ? 8 oz (237 mL) of milk, fgonxqc-kedcwaurxswr-uogox milk, and calcium-fortifiedfruit juice. Calcium-fortified means that calcium has been added to these drinks. ? 8 oz (237 mL) of kefir, yogurt, and soy yogurt. ? 4 oz (114 g) of tofu. ? 1 oz (28 g) of cheese. ? 1 cup (150 g) of dried figs. ? 1 cup (91 g) of cooked broccoli. ? One 3 oz (85 g) can of sardines or mackerel. Most people need 1,000?1,500 mg of calcium a day. Talk to your dietitian about how much calcium is recommended for you. Shopping ??? Buy plenty of fresh fruits and vegetables. Most people do not need to avoid fruits and vegetables, even if these foods contain nutrients that may contribute to kidney stones. ??? When shopping for convenience foods, choose: ? Whole pieces of fruit. ? Pre-made salads with dressing on the side. ? Low-fat fruit and yogurt smoothies. ??? Avoid buying frozen meals or prepared deli foods. These can be high in sodium. ??? Look for foods with live cultures, such as yogurt and kefir. ??? Choose high-fiber grains, such as whole-wheat breads, oat bran, and wheat cereals. Cooking ??? Do not add salt to food when cooking. Place a salt shaker on the table and allow each person to add their own salt to taste. ??? Use vegetable protein, such as beans, textured vegetable protein (TVP), or tofu, instead of meat in pasta, casseroles, and soups. Meal planning ??? Eat less salt, if told by your dietitian. To do this: ? Avoid eating processed or pre-made food. ? Avoid eating fast food. ??? Eat less animal protein, including cheese, meat, poultry, or fish, if told by your dietitian. To do this: ? Limit the number of times you have meat, poultry, fish, or cheese each week. Eat a diet free of meat at least 2 days a week. ? Eat only one serving each day of meat, poultry, fish, or seafood. ? When you prepare animal proteins, cut pieces into small portion sizes. For most meat and fish, one serving is about the size of the palm of your hand. ??? Eat at least five servings of fresh fruits and vegetables each day. To do this: ? Keep fruits and vegetables on hand for snacks. ? Eat one piece of fruit or a handful of berries with breakfast. ? Have a salad and fruit at lunch. ? Have two kinds of vegetables at dinner. ??? You may be told to limit foods that are high in a substance called oxalate. These include: ? Spinach (cooked), rhubarb, beets, sweet potatoes, and [place] chard. ? Peanuts. ? Potato chips, upper sorbian fries, and baked potatoes with skin on. ? Nuts and nut products. ? Chocolate. ??? If you regularly take a diuretic medicine, make sure to eat at least 1 or 2 servings of fruits or vegetables that are high in potassium each day. These include: ? Avocado. ? Banana. ? [place], prune, carrot, or tomato juice. ? Baked potato. ? Cabbage. ? Beans and split peas. Lifestyle ??? Drink enough fluid to keep your urine pale yellow. This is the most important thing you can do. Spread your fluid intake throughout the day. ??? If you drink alcohol: ? Limit how much you have to: ? 0?1 drink a day for women who are not . ? 0?2 drinks a day for men. ? Know how much alcohol is in your drink. In the [place] one drink equals one 12 oz bottle of beer (355 mL), one 5 oz glass of wine (148 mL), or one 1? oz glass of hard liquor (44 mL). ??? Lose weight if told by your health care provider. Work with your dietitian to find an eating plan and weight loss strategies that work best for you. General information ??? Talk to your health care provider and dietitian about taking daily supplements. Depending on your health and the cause of your kidney stones, you may be told: ? Do not take high-dose supplements of vitamin C (1,000 mg a day or more). ? To take a calcium supplement. ? To take a daily probiotic supplement. ? To take other supplements such as magnesium, fish oil, or vitamin B6. ??? Take wprf-cnl-ttalwfr and prescription medicines only as told by your health (more content not included)... [facility] 10-23-2024 Note Progress Note-Physic charo Patient: JOSELITO VIDAL Age: 53 years Sex: Female : 1970 Associated Diagnoses: None Author: Hernandez Billings MD Postoperative Information Postoperative disposition: Postoperative disposition: To PACU. Optimetrix number: Optimetrix number [id number]. Anesthetic utilized: General. Health Status Allergies: Allergic Reactions (Selected) No Known Medication Allergies Physical Examination VS/Measurements Pain Assessment: Controlled. General: Awake, Appropriate. Respiratory: Adequate air exchange. Cardiovascular: Stable. Neurological Assessment Anesthetic outcome No anesthetic complications noted. Adequate pain relief. Review / Management Condition: Stable. Plan Transfer/Discharge: Transfer/Discharge Discharge when meets criteria ( To home ). [facility] Comment on above: Result Comment: Elec tronically Signed By: Hernandez Billings MD\.br\Date and Time Signed: 10/23/24 15:11 EST 10-23-2024 Note Progress Note-Physic charo Patient: JOSELITO VIDAL Age: 53 years Sex: Female : 1970 Associated Diagnoses: None Author: Hernandez Billings MD Preoperative Information Anesthesia Preop Info: Time patient last ate or drank 10/19/2024 00:00:00. Anesthesia history: Patient history: None. Family history+: None. Informed consent: Signed by patient. Re-evaluation prior to induction: Initial evaluation reviewed: No significant change. Review of Systems Eye Ear/Nose/Mouth/Throat Respiratory: No shortness of breath, No cough. Cardiovascular: Negative. Musculoskeletal Neurologic Health Status Allergies: Allergic Reactions (Selected) No Known Medication Allergies, Allergies (1) Active Severity Reaction No Known Medication Allergies None Documented Current medications: (Selected) Inpatient Medications Ordered Sodium Chloride 0.9% IV Melanie 1000 mL 1,000 mL: 1,000 mL, IV, 150 mL/hr, Routine, Start date 10/19/24 11:00:00 EST, 6.7 hour(s), Total volume (mL): 1,000, 116 kg, 2.25, m2 cefazolin additive + Sodium Chloride 0.9% intravenous solution 50 mL: 2 gm = 1 EA, Powder-Inj, IV Piggyback, Once, Stop date 10/19/24 11:00:00 EST, Routine, Start date 10/19/24 11:00:00 EST, 100 mL/hr, Infuse over 30 minute(s), HOLD if patient has history of anaphylactic allergic reaction to Penicillin. Prescriptions Prescribed Flomax 0.4 mg Cap: 0.4 mg = 1 cap(s), Oral, Daily, # 10 cap(s), Refills(s) 0, Pharmacy: [id number], 157, cm, 10/12/24 13:52:00 EST, Height/Length Dosing, 116, kg, 10/12/24 13:52:00 EST, Weight Dosing Levsin 0.125 mg SL Tab: 0.125 mg = 1 tab(s), Oral, QID, PRN for spasm, # 40 tab(s), Refills(s) 0, Pharmacy: [id number], 157, cm, 10/12/24 13:52:00 EST, Height/Length Dosing, 116, kg, 10/12/24 13:52:00 EST, Weight Dosing Roxicodone 5 mg Tab: 5 mg = 1 tab(s), Oral, q6hr, PRN for pain, # 6 tab(s), Refills(s) 0, Pharmacy: [id number], 157, cm, 10/12/24 13:52:00 EST, Height/Length Dosing, 116, kg, 10/12/24 13:52:00 EST, Weight Dosing Documented Medications Documented Esgic 325 mg-50 mg-40 mg oral capsule: 1 cap(s), Oral, q4hr Headache, Refill(s) 0 Jardiance 25 mg oral tablet: 25 mg = 1 tab(s), Oral, qAM, weight loss, Refills(s) 0, Other (see comment) Lopressor 25 mg oral tablet: 25 mg = 1 tab(s), Oral, BID, Refills(s) 0, High blood pressure Pantoprazole [address] Tab: 20 mg = 1 tab(s), Oral, Daily, Refills(s) 0, Control of stomach acid Trulicity Pen 3 mg/0.5 mL subcutaneous solution: 3 mg, SubCutaneous, qWeek, weight loss, Refills(s) 0, Other (see comment) Zofran 4 mg Tab: 4 mg = 1 tab(s), Oral, q8hr, PRN Nausea/Vomiting, Refills(s) 0 cetirizine 10 mg oral capsule: 10 mg = 1 cap(s), Oral, Daily, PRN for allergy symptoms, # 40 cap(s), Refills(s) 0 fludrocortisone 0.1 mg Tab: 0.1 mg = 1 tab(s), Oral, Daily, Refills(s) 0, Neuropathy gabapentin 400 mg Cap: 400 mg = 1 cap(s), Oral, BID, Refills(s) 0, Neuropathy hydrOXYzine hydrochloride 50 mg oral tablet: 50 mg = 1 tab(s), Oral, BID, Refills(s) 0, Pain midodrine 2.5 mg oral tablet: 2.5 mg = 1 tab(s), Oral, BID, Refills(s) 0, High blood pressure spironolactone 100 mg Tab: 100 mg = 1 tab(s), Oral, Daily, Refills(s) 0, High blood pressure temazepam 30 mg Cap: 30 mg = 1 cap(s), Oral, Once a day (at bedtime), PRN for sleep, Refills(s) 0 tizanidine 4 mg oral capsule: 8 mg = 2 cap(s), Oral, Bedtime, Refills(s) 0, Sleep topiramate 25 mg Tab: 25 mg = 1 tab(s), Oral, Daily, Refills(s) 0, Neuropathy, Home Medications (18) Active cetirizine 10 mg oral capsule 10 mg = 1 cap(s), PRN, Oral, Daily Esgic 325 mg-50 mg-40 mg oral capsule 1 cap(s), PRN, Oral, q4hr Flomax 0.4 mg Cap 0.4 mg = 1 cap(s), Oral, Daily fludrocortisone 0.1 mg Tab 0.1 mg = 1 tab(s), Oral, Daily gabapentin 400 mg Cap 400 mg = 1 cap(s), Oral, BID hydrOXYzine hydrochloride 50 mg oral tablet 50 mg = 1 tab(s), Oral, BID Jardiance 25 mg oral tablet 25 mg = 1 tab(s), Oral, qAM Levsin 0.125 mg SL Tab 0.125 mg = 1 tab(s), PRN, Oral, QID Lopressor 25 mg oral tablet 25 mg = 1 tab(s), Oral, BID midodrine 2.5 mg oral tablet 2.5 mg = 1 tab(s), Oral, BID Pantoprazole [address] Tab 20 mg = 1 tab(s), Oral, Daily Roxicodone 5 mg Tab 5 mg = 1 tab(s), PRN, Oral, q6hr spironolactone 100 mg Tab 100 mg = 1 tab(s), Oral, Daily temazepam 30 mg Cap 30 mg = 1 cap(s), PRN, Oral, Once a day (at bedtime) tizanidine 4 mg oral capsule 8 mg = 2 cap(s), Oral, Bedtime topiramate 25 mg Tab 25 mg = 1 tab(s), Oral, Daily Trulicity Pen 3 mg/0.5 mL subcutaneous solution 3 mg, SubCutaneous, qWeek Zofran 4 mg Tab 4 mg = 1 tab(s), PRN, Oral, q8hr , Medications (2) Active Scheduled: (1) ceFAZolin + Sodium Chloride 0.9% Minibag 50 mL 2 gm 1 EA, IV Piggyback, Once Continuous: (1) Sodium Chloride 0.9% 1,000 mL 1,000 mL, IV, 150 mL/hr PRN: (0) Problem list: All Problems Apnea, sleep / SNOMED CT [id number] / Confirmed Arthritis of right kne (more content not included)... [facility] Comment on above: Result Comment: Elec tronically Signed By: Manuelito RAMIREZ, Hernandez Leavitt\.br\Date and Time Signed: 10/23/24 15:07 EST 10-19-2024 Hospital Discharge instructions Patient Education 10/19/2024 13:35:23 Urbu-Yhee-dl Utereroscopy,Lithotripsy, Stone Extraction, Stent Placement (CUSTOM) [facility] [place], [place] Dr. Bradford Hagen Post-operative Instructions for Ureteroscopy, Laser Lithotripsy, Stone Extraction and Stent Placement There are no incisions or dressings to be concerned with, as the procedure was performed inside the urinary system. For 24 hours after surgery: No driving or operating machinery Do not make important decisions Do not consume alcohol, sleeping pills Stent Placement You may have a stent which spans the distance between your bladder and your kidney, allowing urine to pass through. It prevents blockage from swelling, kidney stones in ureter (tube connecting the kidney to the bladder), or scars. The presence of the stent may cause: Back or side pain, especially with urination Frequent or urgent urination Bladder pressure or pain Blood in urine You may pass stone debris or small blood clots, which is expected. Drinking plenty of water to dilute the urine may help. If there is a thread coming out of urinary channel, be careful not to accidently pull on this, as it is attached to the stent. The stent will most likely be removed in the office during a short procedure in which a scope is placed into the bladder, the stent is grasped and removed. At other times the stent may need to stay longer, either in preparation for other procedures or for other reasons. If it is to remain terminal block assembler, however, changes of the stent are required (about every 3-4 months). Diet You may resume your normal diet, but you may want to start slowly and avoid spicy food, caffeine, carbonated beverages and alcohol, especially if you have a stent. Your diet and fluid intake may make irritation from the stent worse. Activity You may resume your normal activities, although you should take it easy on the day of the procedure. Minimizing activity may decrease the back discomfort and irritation from the stent, if present. Medications You may resume your home medications unless instructed otherwise. Hold aspirin, ibuprofen, Coumadin (warfarin) and other blood thinners until your office visit (we will discuss when to resume these medications) Take your prescribed medications as directed, including your antibiotics. You may also be given a prescription for pain medicine or medicines to help with the bladder irritation from stent, if present. Things to watch for which would require an Emergency Room Visit (or call 911) (This is not a complete list) Fever over 101.5 degrees, with or without chills Severe bleeding Severe drug reactions with itching, hives, rash, or severe flank pain Tenderness or swelling or the calves, chest pain, or shortness of breath Please call the office to arrange for your post-operative appointment (with XRAY) [phone] 10/19/2024 13:35:17 Post Op Patient Instructions - FT (CUSTOM) Follow Up Care 10/09/2024 12:57:24 With:YESENIA YUSUF Address: [address] [place] [phone] Business (1) When: Unknown Comments:6 WKS WITH GERRY AGUIAR [facility] 10-19-2024 Note Patient Education - Text [facility] [place], [place] Dr. Bradford Hagen Post-operative Instructions for Ureteroscopy, Laser Lithotripsy, Stone Extraction and Stent Placement There are no incisions or dressings to be concerned with, as the procedure was performed inside the urinary system. For 24 hours after surgery: ??? No driving or operating machinery ??? Do not make important decisions ??? Do not consume alcohol, sleeping pills Stent Placement You may have a stent which spans the distance between your bladder and your kidney, allowing urine to pass through. It prevents blockage from swelling, kidney stones in ureter (tube connecting the kidney to the bladder), or scars. The presence of the stent may cause: ??? Back or side pain, especially with urination ??? Frequent or urgent urination ??? Bladder pressure or pain ??? Blood in urine You may pass stone debris or small blood clots, which is expected. Drinking plenty of water to dilute the urine may help. If there is a thread coming out of urinary channel, be careful not to accidently pull on this, as it is attached to the stent. The stent will most likely be removed in the office during a short procedure in which a scope is placed into the bladder, the stent is grasped and removed. At other times the stent may need to stay longer, either in preparation for other procedures or for other reasons. If it is to remain terminal block assembler, however, changes of the stent are required (about every 3-4 months). Diet You may resume your normal diet, but you may want to start slowly and avoid spicy food, caffeine, carbonated beverages and alcohol, especially if you have a stent. Your diet and fluid intake may make irritation from the stent worse. Activity You may resume your normal activities, although you should take it easy on the day of the procedure. Minimizing activity may decrease the back discomfort and irritation from the stent, if present. Medications ??? You may resume your home medications unless instructed otherwise. ??? Hold aspirin, ibuprofen, Coumadin (warfarin) and other blood thinners until your office visit (we will discuss when to resume these medications) ??? Take your prescribed medications as directed, including your antibiotics. You may also be given a prescription for pain medicine or medicines to help with the bladder irritation from stent, if present. Things to watch for which would require an Emergency Room Visit (or call 911) (This is not a complete list) ??? Fever over 101.5 degrees, with or without chills ??? Severe bleeding ??? Severe drug reactions with itching, hives, rash, or severe flank pain ??? Tenderness or swelling or the calves, chest pain, or shortness of breath Please call the office to arrange for your post-operative appointment (with XRAY) [phone] [facility] 10-09-2024 Hospital Discharge instructions Patient Education 10/09/2024 11:38:44 Ureteroscopy Ureteroscopy Ureteroscopy is a procedure to check for and treat problems inside part of the urinary tract. In this procedure, a long rigid or flexible tube with a lens and light at the end (ureteroscope) is used to look at the inside of the kidneys and the ureters. The ureters are the tubes that carry urine from the kidneys to the bladder. The ureteroscope is inserted into one or both of the ureters. You may need this procedure if you have frequent urinary tract infections (UTIs), blood in your urine, or a stone in one or both of your ureters. A ureteroscopy can be done: To find the cause of urine blockage in a ureter and to evaluate other abnormalities inside the ureters or kidneys. To remove stones. To remove or treat growths of tissue (polyps), abnormal tissue, and some types of tumors. To remove a tissue sample and check it for disease under a microscope (biopsy). Tell a health care provider about: Any allergies you have. All medicines you are taking, including vitamins, herbs, eye drops, creams, and weer-qwm-uhtomoy medicines. Any problems you or family members have had with anesthetic medicines. Any bleeding problems you have. Any surgeries you have had. Any medical conditions you have. Whether you are or may be . What are the risks? Your health care provider will talk with you about risks. These may include: Abdominal pain or a burning feeling or pain while urinating. Abnormal bleeding. A UTI. Allergic reactions to medicines. Scarring that narrows the ureter (stricture) or swelling. Creating a hole (perforation) in the ureter. Damage to other structures or organs, such as the part of your body that drains urine from your bladder (urethra), your bladder, or your uterus. What happens before the procedure? When to stop eating and drinking 8 hours before your procedure ?Stop eating most foods. Do not eat meat, fried foods, or fatty foods. ?Eat only light foods, such as toast or crackers. ?All liquids are okay except energy drinks and alcohol. 6 hours before your procedure ?Stop eating. ?Drink only clear liquids, such as water, clear fruit juice, black coffee, plain tea, and sports drinks. ?Do not drink energy drinks or alcohol. 2 hours before your procedure ?Stop drinking all liquids. ?You may be allowed to take medicines with small sips of water. Medicines Ask your health care provider about: Changing or stopping your regular medicines. These include any diabetes medicines or blood thinners you take. Taking medicines such as aspirin and ibuprofen. These medicines can thin your blood. Do not take these medicines unless your health care provider tells you to. Taking xqqn-moi-jvksvzm medicines, vitamins, herbs, and supplements. General instructions Do not use any products that contain nicotine or tobacco for at least 4 weeks before the procedure. These products include cigarettes, chewing tobacco, and vaping devices, such as e-cigarettes. If you need help quitting, ask your health care provider. If you will be going home right after the procedure, plan to have a responsible adult: ?Take you home from the hospital or clinic. You will not be allowed to drive. ?Care for you for the time you are told. Ask your health care provider what steps will be taken to help prevent infection. These may include: ?Washing skin with a soap that kills germs. ?Receiving antibiotic medicine. Tests You may have an exam or testing. ?You may have a urine sample taken to check for infection. What happens during the procedure? An IV will be inserted into one of your veins. You may be given: ?A sedative. This helps you relax. ?Anesthesia. This will: ?Numb certain areas of your body. ?Make you fall asleep for surgery. Your urethra will be cleaned with a germ-killing solution. The ureteroscope will be passed through your urethra into your bladder. A salt-water solution will be sent through the ureteroscope to fill your bladder. This will help the health care provider see the openings of your ureters more clearly. The ureteroscope will be passed into your ureter. ?If a growth is found, a biopsy may be done. ?If a stone is found, it may be removed through the ureteroscope, or the stone may be broken up using a laser, shock waves, or electrical energy. ?In some cases, if the ureter is too small, a tube may be inserted that keeps the ureter open (ureteral stent). The stent may be left in place for 1 or 2 weeks, and then the ureteroscopy procedure will be done again. The scope will be removed, and your bladder will be emptied. The procedure may vary among health care providers and hospitals. What happens after the procedure? Your blood pressure, heart rate, breathing rate, and blood oxygen level will be monitored until you leave the hospital or clinic. It is up to you to get the results of your procedure. Ask your health care provider, or the department that is doing the procedure, when your results will be ready. Summary Ureteroscopy is a procedure used to look at the inside of the kidneys and the ureters. You may need this procedure if you have frequent urinary tract infections (UTIs), blood in your urine, or a stone in one or both of your ureters. Follow instructions from your health care provider about eating and drinking. In some cases, if the ureter is too small, a tube may be inserted that keeps the ureter open (ureteral stent). The stent may be left in place for 1 or 2 weeks to keep the ureter open, and then the ureteroscopy procedure will be done again. This information is not intended to replace advice given to you by your health care provider. Make sure you discuss any questions you have with your health care provider. Document Revised: 07/19/2023 Document Reviewed: 07/19/2023 [employer] Patient Education 2023 [employer] Follow Up Care 10/06/2024 15:52:25 With:YESENIA YUSUF MD, URL Address: When: Unknown [facility] 10-09-2024 Note Patient Education Urology Ureteroscopy Ureteroscopy is a procedure to check for and treat problems inside part of the urinary tract. In this procedure, a long rigid or flexible tube with a lens and light at the end (ureteroscope) is used to look at the inside of the kidneys and the ureters. The ureters are the tubes that carry urine from the kidneys to the bladder. The ureteroscope is inserted into one or both of the ureters. You may need this procedure if you have frequent urinary tract infections (UTIs), blood in your urine, or a stone in one or both of your ureters. A ureteroscopy can be done: ??? To find the cause of urine blockage in a ureter and to evaluate other abnormalities inside the ureters or kidneys. ??? To remove stones. ??? To remove or treat growths of tissue (polyps), abnormal tissue, and some types of tumors. ??? To remove a tissue sample and check it for disease under a microscope (biopsy). Tell a health care provider about: ??? Any allergies you have. ??? All medicines you are taking, including vitamins, herbs, eye drops, creams, and qvqz-fkh-xvkzrso medicines. ??? Any problems you or family members have had with anesthetic medicines. ??? Any bleeding problems you have. ??? Any surgeries you have had. ??? Any medical conditions you have. ??? Whether you are or may be . What are the risks? Your health care provider will talk with you about risks. These may include: ??? Abdominal pain or a burning feeling or pain while urinating. ??? Abnormal bleeding. ??? A UTI. ??? Allergic reactions to medicines. ??? Scarring that narrows the ureter (stricture) or swelling. ??? Creating a hole (perforation) in the ureter. ??? Damage to other structures or organs, such as the part of your body that drains urine from your bladder (urethra), your bladder, or your uterus. What happens before the procedure? When to stop eating and drinking ??? 8 hours before your procedure ? Stop eating most foods. Do not eat meat, fried foods, or fatty foods. ? Eat only light foods, such as toast or crackers. ? All liquids are okay except energy drinks and alcohol. ??? 6 hours before your procedure ? Stop eating. ? Drink only clear liquids, such as water, clear fruit juice, black coffee, plain tea, and sports drinks. ? Do not drink energy drinks or alcohol. ??? 2 hours before your procedure ? Stop drinking all liquids. ? You may be allowed to take medicines with small sips of water. Medicines Ask your health care provider about: ??? Changing or stopping your regular medicines. These include any diabetes medicines or blood thinners you take. ??? Taking medicines such as aspirin and ibuprofen. These medicines can thin your blood. Do not take these medicines unless your health care provider tells you to. ??? Taking moht-fmq-gkljklj medicines, vitamins, herbs, and supplements. General instructions ??? Do not use any products that contain nicotine or tobacco for at least 4 weeks before the procedure. These products include cigarettes, chewing tobacco, and vaping devices, such as e-cigarettes. If you need help quitting, ask your health care provider. ??? If you will be going home right after the procedure, plan to have a responsible adult: ? Take you home from the hospital or clinic. You will not be allowed to drive. ? Care for you for the time you are told. ??? Ask your health care provider what steps will be taken to help prevent infection. These may include: ? Washing skin with a soap that kills germs. ? Receiving antibiotic medicine. Tests ??? You may have an exam or testing. ? You may have a urine sample taken to check for infection. What happens during the procedure? An IV will be inserted into one of your veins. ??? You may be given: ? A sedative. This helps you relax. ? Anesthesia. This will: ? Numb certain areas of your body. ? Make you fall asleep for surgery. ??? Your urethra will be cleaned with a germ-killing solution. ??? The ureteroscope will be passed through your urethra into your bladder. ??? A salt-water solution will be sent through the ureteroscope to fill your bladder. This will help the health care provider see the openings of your ureters more clearly. ??? The ureteroscope will be passed into your ureter. ? If a growth is found, a biopsy may be done. ? If a stone is found, it may be removed through the ureteroscope, or the stone may be broken up using a laser, shock waves, or electrical energy. ? In some cases, if the ureter is too small, a tube may be inserted that keeps the ureter open (ureteral stent). The stent may be left in place for 1 or 2 weeks, and then the ureteroscopy procedure will be done again. ??? The scope will be removed, and your bladder will be emptied. The procedure may vary among health care providers and hospitals. What happens after the procedure? (more content not included)... [facility] 08-09-2024 History of Present illness Narrative Images from the original note were not included. Chief complaint: Back pain Subjective Joselito Toby Vidal, 53 y.o., female Patient presents today for a follow up for impaired ambulation and lumbosacral spondylosis. Patient went to pain management in [place] and states they were not able to manage her pain so she wanted to come back. She states they only did injections with her and they do not last. She wanted her PCP to put her on Humira but she told her she does not handle that medication. Patient ambulates with a walker or cane. She states she is unable to cook standing up, she needs to sit on her walker. She is unable to sausage inspector the shower. She cannot walk long distances without her walker. There are times she is unable to stand up. Patient is worried she wont be able to walk soon. Review of Systems Constitutional: Negative for appetite change, fatigue and fever. Respiratory: Negative for cough, shortness of breath and wheezing. Cardiovascular: Negative for chest pain, palpitations and leg swelling. Gastrointestinal: Negative for abdominal pain, constipation, diarrhea and nausea. Musculoskeletal: Positive for back pain and myalgias. Negative for arthralgias and gait problem. Neurological: Negative for dizziness, tremors, numbness and headaches. No past medical history on file. No past surgical history on file. No family history on file. Social History Tobacco Use Smoking status: Not on file Smokeless tobacco: Not on file Substance Use Topics Alcohol use: Not on file Allergies: Patient has no known allergies. Vitals: 08/09/24 1527 BP: 146/84 Pulse: 85 SpO2: 95% There is no height or weight on file to calculate BMI. weight: 268 lb Neurologic exam: Mental status: Constitutional: Appearance Well-nourished , well developed , in no acute distress and cooperative , obese. Alert with unlabored respirations. Mental Status Examination: Orientation grossly oriented to person , place , time. Attention attention normal , concentration abilities normal. Language skills intact. Memory intact. Fund of Knowledge fund of knowledge appropriate. Cranial Nerves: Optic Nerve visual stewart full , normal pupil response bilaterally. Oculomotor, Trochlear and Abducens Nerves pupils equal round and reactive to light , extraocular muscles intact , no ptosis present. Trigeminal Nerve facial sensation normal bilaterally. Facial Nerve no facial weakness present. Vestibuloacoustic Nerve hearing intact bilaterally. Glossopharyngeal and Vagus Nerves palate elevates midline. Spinal Accessory Nerve shoulder shrug normal bilaterally. Hypoglossal Nerve tongue protrudes midline. Motor Examination: RUE Strength deltoid , biceps , triceps , wrist extensors , wrist flexor , chicken fancier strength 5/5. LUE Strength deltoid , biceps , triceps , wrist extensors , wrist flexor , chicken fancier strength 5/5. RLE Strength illopsoas, quadriceps, tibialis anterior, and gastrocnemius strength 4+/5. Positive straight leg raise test bilaterally. LLE Strength illopsoas, quadriceps, tibialis anterior, and gastrocnemius strength 4+/5. Tone Normal tone x4 extremities. Reflexes: RUE biceps reflex 2+ , brachioradialis reflex 2+. LUE biceps reflex 2+ , brachioradialis reflex 2+. RLE knee reflex 0. LLE knee reflex 0. May's Sign negative. Sensation: Light Touch sensation intact to light touch in extremities. Vibration vibratory sensation intact in distal extremities. Cerebellar Function: [id number] Normal. Gait and Station: Gait Ambulates with a walker. Review and summary of old records: MRI of the lumbar spine on 06/18/23: L4/5 facet disease with associated central and foraminal stenosis EMG of the bilateral lower extremities and advance her [employer] associates on 06/01/23: Chronic S1 motor radiculopathy on the right which is mild. Assessment/Plan Diagnoses and all orders for this visit: Lumbar radiculopathy It is my impression that the patient has lumbar radiculopathy. She reports low back pain and pain in the left L3/L4 dermatomal distribution. Also, with paresthesias in the bilateral feet. MRI on 06/18/23 revealed evidence of foraminal stenosis. The patient was reportedly evaluated by surgery and determined not to be a surgical candidate. Physical therapy worsened the patient's symptoms, so she discontinued this. She has trialed and failed [id number] medication with ibuprofen and Tylenol at appropriate doses. She has also trialed various other medications without success. Gabapentin has provided more benefit than Lyrica. Bilateral L4 epidural injections on 07/13/23 were beneficial (> 50% pain reduction). However, these have started to wear off, and the patient wishes to proceed with further injections to help improve her quality of life and ADLs. She remains active at home. PLAN: - Referral to pain management as the patient continues to have symptoms of chronic pain and has been previously seen pain management in [place] but is unable to access them as regularly as needed. Polypharmacy The patient is still on an extensive list of medications. 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 She states many of these have been ineffective. We did discuss the high risk of adverse effects, dependency, and overdose with some of these medications in detail. The patient verbalizes understanding. She reports taking medications only as prescribed. PLAN: - We are referring her to pain management, Dr Matamoros, to further help manage her chronic pain. She was previously seen pain management in [place] but with driving so far and with injections lasting so sure she is having difficulty getting there as frequently is as needed. Pt has been fully educated on their diagnosis, lab results, treatment options, follow up plan, return instructions, and discussion of mental health issues documented in this encounter [facility] 07-31-2024 History of Present illness Narrative Patient presents for cardiovascular evaluation in the [place] office at the request of AMARILIS Schmidt for the following: Chief Complaint: New Patient Visit HISTORY OF PRESENT ILLNESS: Joselito Vidal is a 53 y.o. female with prior cardiac history of POTS. Other pertinent medical history includes spinal stenosis. Patient reports symptoms of feeling overheated and dizzy. Off balance, was seen at [facility]. Was diagnosed with POTS clinically. Started on metoprolol. Holter subsequently. In general patient reports pain. Palpitations, hot, dizzy. Food can trigger. Getting up quickly. No syncope, but has had near syncope. Patient decribes no chest pain. 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 The patient also reports mild dyspnea on exertion, no orthopnea, no nocturnal dyspnea, and mild lower extremity edema. Feels feet and ankles turn to ice . Yes palpitations, near syncope, but no claudication. No family history of CAD. No tobacco smoking. Past Medical History: History reviewed. No pertinent past medical history. Past Surgical History: Recent Surgeries in Cardiology No cases to display Social History: reports that she has never smoked. She has never used smokeless tobacco. She reports that she does not drink alcohol and does not use drugs. Family History: family history is not on file. Allergies: Patient has no known allergies. Outpatient Medications: Current Outpatient Medications Medication Instructions albuterol 90 mcg/actuation inhaler 2 puffs, 4 times daily RT ALPRAZolam (Xanax) 0.25 mg tablet 1 tablet, Every 12 hours scheduled (0630,1830) amitriptyline (ELAVIL) 25 mg, Nightly cetirizine (ZYRTEC) 10 mg, Daily cyclobenzaprine (Flexeril) 10 mg tablet 1 tablet, 3 times daily (0900,1400,1900) dulaglutide (TRULICITY SUBQ) INJECT 3 (THREE) mg SUBCUTANEOUSLY ONCE A WEEK DULoxetine (CYMBALTA) 60 mg, 2 times daily Esgic 50-325-40 mg tablet 1 tablet, Every 4 hours PRN gabapentin (NEURONTIN) 400 mg, Every 8 hours hydrOXYzine HCL (Atarax) 25 mg tablet 1 tablet, Every 12 hours scheduled (0630,1830) Jardiance 25 mg 1 tablet, Daily (0630) methylPREDNISolone (MEDROL DOSPAK) 4 mg, Once metoprolol tartrate (LOPRESSOR) 25 mg, 2 times daily (morning and late afternoon) nitrofurantoin, macrocrystal-monohydrate, (Macrobid) 100 mg capsule 100 mg, Every 12 hours ondansetron ODT (ZOFRAN-ODT) 4 mg, Every 8 hours PRN ondansetron ODT (ZOFRAN-ODT) 8 mg, Every 8 hours PRN Oysco 500/D 500 mg-5 mcg (200 unit) tablet 1 tablet, Every 12 hours scheduled (0630,1830) pantoprazole (PROTONIX) 20 mg, Daily predniSONE (Deltasone) 50 mg tablet 1 tablet, Daily (629) Symbicort 160-4.5 mcg/actuation inhaler 1 puff, 2 times daily tiZANidine (ZANAFLEX) 4 mg, 3 times daily PRN topiramate (TOPAMAX) 75 mg, Nightly ROS: 12 review of systems negative other than chief complaint PHYSICAL EXAM Vitals: 07/31/24 1434 07/31/24 1511 07/31/24 1512 BP: 110/70 114/70 98/70 BP Location: Left arm Right arm Patient Position: Sitting Lying Pulse: 80 94 106 SpO2: 90% 90% 92% Weight: 120 kg (264 lb) Height: 1.575 m (5' 2 ) General: No acute distress, appears comfortable Cardiac: Regular rate and rhythm with no murmurs rubs or gallops, normal S1-S2 Pulmonary: Clear to auscultation bilaterally with no rales or rhonchi, normal respiratory effort Gastrointestinal: Soft abdomen with no tenderness or guarding, no rebound Musculoskeletal: No lower extremity edema, normal Neurological: Alert and oriented x 4, appropriate, moving all extremities well, normal affect Psychiatric: Normal affect, mood appropriate to occasion Skin: No rashes, hives or jaundice HEENT: Normocephalic, atraumatic. Pupils equal round and reactive. Last Labs: CBC - No results found for: WBC , HGB , HCT , MCV , PLT CMP - No results found for: CALCIUM , PHOS , PROT , ALBUMIN , AST , ALT , ALKPHOS , BILITOT LIPID PANEL - No results found for: CHOL , HDL , CHHDL , LDL , VLDL , TRIG , NHDL RENAL FUNCTION PANEL - No results found for: GLU , K , CHLOR , PHOS No results found for: BNP , HGBA1C Last Cardiology Tests: Assessment/Plan Diagnoses and all orders for this visit: Postural dizziness with near syncope - Follow Up In Cardiology; Future - Tilt table; Future - midodrine (Proamatine) 2.5 mg tablet; Take 1 tablet (2.5 mg) by mouth 3 times daily (morning, midday, late afternoon). Abnormal EKG - ECG 12 lead (Clinic Performed) Assessment and plan (narrative): Joselito Vidal is a 53 y.o. female with postural symptoms, suspect POTS. Will start midodrine and assess with tilt table test. Followup: after testing Martin Larios MD documented in this encounter [facility] Work Phone: 02-15-2024 History of Present illness Narrative Joselito Vidal (1970) 02/15/2024 Subjective: Joselito Vidal is 53 y.o. female who complains today of low back pain She has been tolerating Topamax without any problems. No vision changes, headaches, kidney stones, flank pain, dysuria, fatigue, lethargy, vomiting, confusion, suicide or homicidal ideation, or any other adverse effects. She did not see pain psychology. EMG done at outside facility, reviewed below. No updates from spine surgery. Bilateral lumbar L2 L3-L4-L5 medial branch blocks on 12/23/2023 provided greater than 80% short-term pain relief with a positive diagnostic response. Second diagnostic bilateral lumbar L2 L3-L4-L5 medial branch blocks on 02/01/2024 provided greater than 80% short-term pain relief with a positive diagnostic response. Given her positive diagnostic response to dual lumbar medial branch blocks, recommendations given for lumbar radiofrequency ablation, done today, see separate procedure note. Lumbar epidural injection not done. She did not get pain psychology evaluation for spinal cord stimulation. Doing physical therapy and aquatic therapy at [facility]. No other test therapy or updates from other physicians, no ER visits. Low back pain is a 5/10. Gets to a 8/10. Located in both sides of her low back. Back pain is worse than leg pain. Pain is worse with bending and standing. Pain is better with rest, pain medications, and injections. It has been a constant ache for over 3 years. Previous seen by spine neurosurgery. There are no other associated symptoms or contextual factors. She denies any classic radicular symptoms, new weakness, saddle anesthesia, bowel or bladder dysfunction, or falls. Allergies: Patient has no known allergies. History reviewed. No pertinent past medical history. History reviewed. No pertinent surgical history. History reviewed. No pertinent family history. Social History Socioeconomic History Marital status: Unknown Spouse name: Not on file Number of children: Not on file Years of education: Not on file Highest education level: Not on file Occupational History Not on file Tobacco Use Smoking status: Never Passive exposure: Never Smokeless tobacco: Never Vaping Use Vaping Use: Never used Substance and Sexual Activity Alcohol use: Not on file Drug use: Not on file Sexual activity: Not on file Other Topics Concern Not on file Social History Narrative Not on file Social Determinants of Health Financial Resource Strain: Not on file Food Insecurity: Not on file Transportation Needs: Not on file Physical Activity: Not on file Stress: Not on file Social Connections: Not on file Intimate Partner Violence: Not on file Housing Stability: Not on file Current Outpatient Medications on File Prior to Encounter Medication Sig Dispense Refill fludrocortisone (FLORINEF) 0.1 MG tablet Take 1 tablet by mouth daily tiZANidine (ZANAFLEX) 4 MG tablet Take 1 tablet by mouth 3 times daily as needed DEBLITANE 0.35 MG tablet Take 1 tablet by mouth every morning TRULICITY 3 MG/0.5ML SOPN INJECT 3 (THREE) mg SUBCUTANEOUSLY ONCE A WEEK ondansetron (ZOFRAN-ODT) 4 MG disintegrating tablet DISSOLVE 1 (ONE) TABLET ON THE TONGUE EVERY 8 HOURS ESGIC 50-325-40 MG per tablet 1 tablet as needed Orally every 4 hrs traMADol (ULTRAM) 50 MG tablet Take by mouth. cetirizine (ZYRTEC) 10 MG tablet Take by mouth pantoprazole (PROTONIX) 20 MG tablet Take 1 tablet by mouth daily spironolactone (ALDACTONE) 100 MG tablet Take 1 tablet by mouth daily XANAX 0.5 MG tablet Take 1 tablet by mouth in the morning and at bedtime. hydrOXYzine HCl (ATARAX) 50 MG tablet 1 or 2 three times a day as needed for sleep or anxiety Orally as directed for 30 days SYMBICORT 160-4.5 MCG/ACT AERO Inhale 1 puff into the lungs in the morning and at bedtime lisinopril (PRINIVIL;ZESTRIL) 20 MG tablet Take 1 tablet by mouth daily diclofenac Sodium 1.5 % SOLN 40 drops Externally Four times a day for 14 days diclofenac (VOLTAREN) 75 MG EC tablet Take by mouth VICTOZA 18 MG/3ML SOPN SC injection Inject into the skin albuterol sulfate HFA (PROVENTIL;VENTOLIN;PROAIR) 108 (90 Base) MCG/ACT inhaler INHALE 2 PUFFS BY MOUTH EVERY 4-6 HOURS FOR 14 DAYS for 14 gabapentin (NEURONTIN) 600 MG tablet Take 0.5 tablets by mouth in the morning, at noon, in the evening, and at bedtime. metFORMIN (GLUCOPHAGE-XR) 500 MG extended release tablet TAKE 1 TABLET BY MOUTH WITH FOOD TWICE DAILY DULoxetine (CYMBALTA) 60 MG extended release capsule Take 1 capsule by mouth 2 times daily amitriptyline (ELAVIL) 75 MG tablet Take 25 mg by mouth nightly at bedtime. lidocaine (LMX) 4 % cream Apply a half dollar sized amount to intact skin topically up to twice daily as needed for pain 45 g 1 meloxicam (MOBIC) 7.5 MG tablet Take 1 tablet by mouth daily Take with food, avoid other NSAIDs (Ibuprofen) and steroids 30 tablet 0 No current facility-administered medications on file prior to encounter. Review of Systems Objective: Vitals: BP 118/72 Temp 97.6 F (36.4 C) Ht 1.575 m (5' 2 ) Wt 122.5 kg (270 lb) BMI 49.38 kg/m Exam performed under coronavirus precautions General: No acute distress Eyes: No scleral icterus appreciated bilaterally ENMT: Moist mucous membranes Neck: Symmetric without any overt masses or lesions Respiratory: Respirations are non-labored Skin: Visualized skin is intact Psych: Pleasant and cooperative with history and exam. Neurologic: Gait antalgic, no assistive devices for ambulation. Pt is alert and appropriately interactive. No signs of excessive sedation. Responds promptly and appropriately to questions asked. No aberrant behaviors appreciated. No gross step offs noted. Tenderness to palpation over the mid to low lumbar spinous processes and bilateral lumbar paraspinals from L2 down to the sacrum. No tenderness over bilateral PSIS. No tenderness over bilateral greater trochanters. No tenderness over bilateral deep gluteal regions. Sensation grossly intact in both legs. Reflexes and strength functional for ambulation, no abnormal reflexes appreciated on exam today Strength greater than 3/5 bilateral legs Straight leg raise negative bilaterally. Outside record review: Dr. Delgado 06/30/2022: Has pain in the back undergoing pain management modalities which do help. That pain management physician will not prescribe analgesics. Patient says her doctor is unable to prescribe analgesics and pain pills but does give her a shot when she has severe pain. Chronic pain in the low back bilateral lower extremities. Normal anterolisthesis L4 and L5 with up to moderate canal stenosis. May require surgery in the future. She is not a candidate for neuro spine surgery. EMG BLE 06/01/2023 Dr[facility]: Chronic right S1 radiculopathy mild, no polyneuropathy. MRI L-spine 06/18/2023: Degenerative's disease and facet arthropathy. Anterolisthesis L4 and L5, retrolisthesis L5 on S1. No fractures. T12-L1 disc bulge, normal canal foramen. L1-L2, L2-L3, L3-L4 no stenosis. L4-L5 potential synovial cyst on the left, up to severe canal stenosis, mild right and up to moderate left foraminal impingement. L5-S1 normal canal, moderate foraminal narrowing. XR L-spine flexion-extension 08/11/2021: No fracture. 4 mm anterolisthesis at L4-5. Facet arthropathy. No hypermobility seen with flexion-extension views. Osteopenia. Complete metabolic panel CMP on 11/24/2023: ALT 91 normal ALT 7 normal Anion gap 12 normal AST 13 normal Calcium 9.8 normal Chloride 107 normal CO2 26 normal Creatinine 1.1 normal Glucose 64 normal Potassium 4.5 normal Sodium 140 normal Opioid risk tool score 1, low risk. Assessment: Lumbar spondylosis + SHARMIAL working on Focus IP new machine Plan: Periodic Controlled Substance Monitoring: Assessed functional status (ability to engage in work or other purposeful activities, the pain intensity and its interference with activities of daily living, quality of family life and social activities, and the physical activity) (Patricia Walker MD) Orders Placed This Encounter Medications lidocaine 1 % injection 10 mL sodium bicarbonate 8.4 % injection 0.5 mEq betamethasone acetate-betamethasone sodium phosphate (CELESTONE) injection 3 mg topiramate (TOPAMAX) 25 MG tablet Sig: Take 3 tablets by mouth nightly Dispense: 90 tablet Refill: 0 Orders Placed This Encounter Procedures DE DSTR NROLYTC AGNT PARVERTEB FCT SNGL LMBR/SACRAL RFA Left Lumbar L2/3/4/5 radiofrequency ablation under XR with Dr Walker. 30 min procedure. Three Yellow Regular cannulas. Standing Status: Future Standing Expiration Date: 02/14/2025 Discharge patient Standing Status: Standing Number of Occurrences: 1 Order Specific Question: Discharge Disposition Answer: Home -Encourage PT for lumbar spondylosis -Follow-up primary care team/endocrinology for osteopenia. Encourage Marcy Gutierrez PhD for Pain Psychology. She declines Bariatric surgery evaluation -Reviewed EMG B LE above from [facility], all questions answered -Will continue to monitor basic metabolic panel while on Topamax to monitor for serum bicarbonate and serum creatinine levels --Encourage re evaluation with Neurosurgery Dr Delgado given worsening of L4/5 spinal canal stenosis -Will hold on Lidocaine 4% ointment topical, Meloxicam 7.5 mg daily -Min relief with Gabapentin and Pregabalin -Patient is tolerating Topamax well, basic lab values appear within normal limits. -Increase Topamax 50 mg to 75 mg qHS (25 mg) #70 no ref start 02/15/24. Avoid alcohol, hydrate aggressively, watch for kidney stones. -Advised to monitor for interaction between Topamax and Deblitane as Topamax may decrease the effectiveness of hormonal contraceptives such as Deblitane and increased risk of unintended -No opioids recommended at this time -Encourage re evaluation with Neurosurgery for up to severe lumbar spinal canal stenosis -She would like to hold on spinal cord stimulation at this time, previously given [employer] information, Psych for evaluation on hold. -Underwent Right lumbar RFA radiofrequency ablation L2 L3-L4-L5 today, see separate procedure note -RFA Left Lumbar L2/3/4/5 radiofrequency ablation under XR with Dr Walker. 30 min procedure. Three Yellow Regular cannulas. No anticoagulation, no antibiotics, no diabetes mellitus, +osteopenia, no bleeding or platelet dysfunction, IV Dye okay, NKDA. Not . Controlled Substance Monitoring: Acute and Chronic Pain Monitoring: RX Monitoring Periodic Controlled Substance Monitoring 02/15/2024 4:47 PM Assessed functional status (ability to engage in work or other purposeful activities, the pain intensity and its interference with activities of daily living, quality of family life and social activities, and the physical activity) Discussed the risks, side effects, and symptoms that would warrant urgent or emergent physician evaluation of all medications prescribed today. Discussed the risks of the above recommended procedures including but not limited to bleeding, infection, worsened pain, damage to surrounding structures, side effects, toxicity, allergic reactions to medications used, immune and stress-response dysfunction, fat necrosis, skin pigmentation changes, blood sugar elevation, headache, vision changes, need for surgery, as well as catastrophic injury such as vision loss, paralysis, stroke, spinal cord and/or plexus infarction or injury, intrathecal injection, spinal cord puncture, arachnoiditis, discitis, bowel or bladder incontinence, ventilator dependence, loss of use of the arms and/or legs, and . Discussed the risks, benefits, alternative procedures, and alternatives to the procedure including no procedure at all. Discussed that we cannot undo any permanent neurologic damage or change the course of any underlying disease. The patient appears to be a good candidate for the above recommended procedures, but no guarantees expressed or implied are given regarding the outcome of any procedure. After thorough discussion, patient expressed understanding and willingness to proceed. Provided education and counseling regarding the diagnosis, prognosis, and treatment options. All questions were answered. Encouraged her to follow-up with her primary care physician and/or specialists as required for her overall health and management of her comorbidities as well as any new positive symptoms mentioned in review of systems above. Care was provided within the definitions and limitations of our specialty practice. Encouraged lifestyle interventions including healthy habits, lifestyle changes, regular aerobic exercise and appropriate weight maintenance as advised by their primary care physician or cardiovascular health provider. Discussed well care and disease prevention/maintenance. All recommendations for therapy are provided to improve function with activities of daily living, decrease pain, and help develop an exercise program. All recommendations for medications are meant to help decrease pain, improve function with activities of daily living, maintain compliance with home exercise program, and improve quality of life. All recommendations for therapeutic injections are meant to help decrease pain, improve function with activities of daily living, maintain compliance with home exercise program, improve quality of life, and decrease reliance upon oral medications. Encouraged compliance with her home exercise program. Recommended compliance with physical therapy program as outlined above. Discussed the elevated risks of excessive sedation while on pain medications. Advised her against driving or operating heavy machinery or performing any activities where she may harm herself or others while on pain medications. Particular caution was emphasized especially during dose adjustments and medication changes. Discussed the elevated risks of respiratory depression and while on opioid medications, especially when combined with other sedative substances. Discussed the risks of temporary disability, permanent disability, morbidity, and mortality with poorly-managed or undiagnosed medical conditions and comorbidities. Emphasized the importance of timely medical evaluation and treatment as previously recommended by us or other medical records specialist. Risks of not pursing these recommendations were emphasized. The patient was offered a treatment at our facility. The physician and patient have discussed in detail the risk of exposure to and/or potential harm posed by the COVID-19 virus with having office visits and procedures at this time versus the risk of delaying the visits and procedures. It is not possible to know either the risk of delaying the visits or procedure or chance of getting an infection with perfect accuracy, but a joint decision was made between the patient and the physician to proceed at this time with the scheduled visits and procedures. Advised her that any lab testing, imaging, or other diagnostic test results are best discussed in person in the office so that we can provide a clear explanation of their significance and best treatment based upon these results. It is her responsibility to make and keep a follow up appointment to discuss these test results in person to discuss the significance of the findings and appropriate follow-up steps. She expressed complete understanding and agreement with the entire plan as outlined above. Portions of this note may have been typed, auto-populated, dictated or transcribed by voice recognition resulting in errors, omissions, or close substitutions which may be missed despite careful proofreading. Please contact the author for any questions or concerns. Follow up: No follow-ups on file. Patricia Walker MD This procedure was 60% more difficult and required 60% more work secondary to the patient's habitus. The patient has a BMI of 49.4. This required increased work for safe and proper positioning upon the fluoroscopy table, increased needle passes for safe and appropriate needle placement, and increased fluoroscopy time and radiation exposure for proper visualization. Lumbar Radiofrequency Ablation/Neurotomy Patient Name: Joselito Vidal : 1970 Date: 02/15/2024 Provider: Patricia Walker MD Joselito Vidal is here today for interventional pain management. Preoperatively, the patient presents with symptoms and physical exam findings consistent with lumbar facet zygapophyseal joint mediated pain. She has had persistent pain that limits her function and activities of daily living. The pain is persistent despite conservative measures. She has significant functional and psychological impairment due to this condition. She has undergone diagnostic medial branch blocks with a positive diagnostic response. Given her symptoms, physical exam findings, impairment in activities of daily living, lack of response to conservative measures, and positive diagnostic response to medial branch blocks, consideration for lumbar facet/medial branch radiofrequency ablation/neurotomy was given. Discussed the risks of the procedure including, but not limited to, bleeding, infection, worsened pain, damage to surrounding structures, post-ablation neuritis, worsened paresthesias, side effects, toxicity, allergic reactions to medications used, immune and stress-response dysfunction, fat necrosis, avascular necrosis, skin pigmentation changes, blood sugar elevation, headache, vision changes, need for surgery, as well as catastrophic injury such as vision loss, hip and/or leg weakness, paralysis, stroke, spinal cord infarction or injury, spinal cord puncture, arachnoiditis, bowel injury, bowel or bladder incontinence, sexual dysfunction, loss of use of the legs, ventilator dependence, and . Discussed the risks, benefits, alternative procedures, and alternatives to the procedure including no procedure at all. Discussed that we cannot undo any permanent neurologic damage or change the course of any underlying disease. After thorough discussion, patient expressed understanding and willingness to proceed. Written consent was obtained and is in the chart. Verbal consent to proceed was obtained. Standard ASIPP guidelines were followed and sterile technique used. The patient was positioned prone on the procedure table. Area was cleaned with Betadine three times. Fluoroscopic guidance was used for this procedure. Multiple views of fluoroscopy were used during procedure to assist with needle placement. The L5 vertebral body was taken as the first lumbar-appearing vertebral body directly above the sacrum on a lateral view. Appropriate oblique and declined views were obtained to open up the sulcii for the medial branch blocks and/or dorsal rami as appropriate. Then three 15 cm 20 gauge 10 mm active tip radiofrequency cannulas were used and advanced to the appropriate anatomic locations. There was limited multifidus contraction noted with motor stimulation at 2 Hz between 0.5-1.5 volts. No limb or gluteal contraction was noted taking it up to 3.5 volts. Aspiration was negative throughout the procedure. Prior to lesioning at 80 degrees Celsius for 90 seconds, approximately 0.75 mg of Betamethasone and 0.5 mL of 1% preservative-free Lidocaine was injected. Impedance was between 200-400 ohms during the procedure. One lesion was created at each level, SIS approach and extended time were utilized, temperature adjustment was performed. Patient tolerated the procedure well, no obvious complications occurred during the procedure. Patient was appropriately monitored and discharged home in stable condition with their usual motor strength. Post-procedure instructions were given to the patient. She was advised that her blood sugars may increase after today's procedure. She will return for opposite side radiofrequency ablation in two weeks. [] Bilateral [] L1 [x] L2 [x] Right [x] L3 [x] L4 [] Left [x] L5 [address] [place] [address], [address] [place] [address] / documented in this encounter [facility] 01-19-2024 History of Present illness Narrative Images from the original note were not included. Joselito Vidal is a 53 y.o. 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 Hysterectomy: no She is sexually active. Denies painful intercourse or pelvic pain. Vaginal Bleeding none Hot flashes / menopausal symptoms - Mild Bladder issues - None Bowel issues - None History of abnormal Pap smear: no Last pap: 11/26/2020- negative with negative hpv Family history of uterine or ovarian cancer: no Family hx pancreatic or prostate cancer: no Family history of colon cancer: no Family history of breast cancer: no Regular self breast exam: yes Last mammogram: 01/01/2023- negative Dexa Scan: n/a Colonoscopy / Cologuard: 2022- negative PHQ9 depression screenin Patient c/o lesion on her upper right leg. She states she was given a cream by her PCP and it burned when she used it, and did not help with the spot. She was then seen by a auto body customizer for an area on her face and told him about the lesion. He did not look at it, but gave her another medication that did not work. She states the area has been there since about August 2023 and she is unsure if it is changing in size. OB History 6 Para 5 Term 4 1 AB 1 Living 4 SAB 1 IAB Ectopic Multiple Live Births 4 Past Medical History: Diagnosis Date Diabetes mellitus ([facility]) Hypertension POTS (postural orthostatic tachycardia syndrome) Spinal stenosis History reviewed. No pertinent surgical history. Family History Problem Relation Age of Onset Diabetes Paternal Grandfather Diabetes Paternal Grandmother Diabetes Maternal Grandmother Pancreatic cancer Maternal Grandmother Diabetes Maternal Grandfather Heart failure Maternal Grandfather Hypertension Father Hypertension Mother Lung cancer Mother Breast cancer Neg Hx Current Outpatient Medications Medication Sig Dispense Refill amitriptyline (ELAVIL) 25 mg tablet Take 1 tablet (25 mg total) by mouth nightly. cetirizine (ZyrTEC) 10 mg tablet Take 1 tablet (10 mg total) by mouth in the morning. DULoxetine (CYMBALTA) 60 mg capsule Take 1 capsule (60 mg total) by mouth in the morning and 1 capsule (60 mg total) before bedtime. ESGIC 50-325-40 mg per tablet Take 1 tablet by mouth every 4 (four) hours as needed for migraine. fludrocortisone (FLORINEF) 0.1 mg tablet Take 1 tablet (0.1 mg total) by mouth in the morning. gabapentin (NEURONTIN) 300 mg capsule Take 1 capsule (300 mg total) by mouth 3 (three) times a day. hydrOXYzine (ATARAX) 50 mg tablet Take 1 tablet (50 mg total) by mouth every 8 (eight) hours as needed. JARDIANCE 10 mg tablet tablet Take 1 tablet (10 mg total) by mouth in the morning. lisinopriL (PRINIVIL,ZESTRIL) 20 mg tablet Take 1 tablet (20 mg total) by mouth in the morning. metoprolol tartrate (LOPRESSOR) 25 mg tablet Take 1 tablet (25 mg total) by mouth in the morning and 1 tablet (25 mg total) before bedtime. ondansetron ODT (ZOFRAN ODT) 4 mg disintegrating tablet Dissolve 1 tablet (4 mg total) on tongue 3 (three) times a day. pantoprazole (PROTONIX) 20 mg EC tablet Take 1 tablet (20 mg total) by mouth every morning before breakfast. spironolactone (ALDACTONE) 100 mg tablet Take 1 tablet (100 mg total) by mouth in the morning. tiZANidine (ZANAFLEX) 4 mg tablet Take 1 tablet (4 mg total) by mouth every 8 (eight) hours as needed. topiramate (TOPAMAX) 25 mg tablet Take 1 tablet (25 mg total) by mouth in the morning. TRULICITY 3 mg/0.5 mL pen injector Inject 1 mg under the skin once a week. No current facility-administered medications for this visit. ALLERGIES No Known Allergies Review of Systems Constitutional: Negative. Respiratory: Negative. Negative for chest tightness and shortness of breath. Cardiovascular: Negative. Negative for chest pain and palpitations. Gastrointestinal: Negative. Negative for constipation, diarrhea, nausea and vomiting. Endocrine: Negative. Genitourinary: Negative. Negative for dyspareunia, menstrual problem and pelvic pain. Musculoskeletal: Positive for arthralgias and back pain. Skin: Negative. Allergic/Immunologic: Negative. Neurological: Negative. Hematological: Negative. Psychiatric/Behavioral: Negative. Physical Exam BP 142/90 Ht 160 cm (5' 3 ) Wt 123.7 kg (272 lb 12.8 oz) LMP 03/28/2020 BMI 48.32 kg/m Physical Exam Vitals and nursing note reviewed. Constitutional: Appearance: Normal appearance. HENT: Head: Normocephalic and atraumatic. Cardiovascular: Rate and Rhythm: Normal rate and regular rhythm. Pulses: Normal pulses. Heart sounds: Normal heart sounds. Pulmonary: Effort: Pulmonary effort is normal. Breath sounds: Normal breath sounds. Chest: Breasts: Breasts are symmetrical. Right: Normal. No mass, skin change or tenderness. Left: Normal. No mass, skin change or tenderness. Abdominal: General: Bowel sounds are normal. Palpations: Abdomen is soft. Genitourinary: General: Normal vulva. Labia: Right: No rash or lesion. Left: No rash or lesion. Vagina: Normal. Cervix: Normal. Uterus: Normal. Adnexa: Right adnexa normal and left adnexa normal. Right: No mass, tenderness or fullness. Left: No mass, tenderness or fullness. Comments: 1 cm x 2 cm irregularly shaped, red, raised lesion in area above. Musculoskeletal: General: Normal range of motion. Cervical back: Normal range of motion and neck supple. Skin: General: Skin is warm and dry. Neurological: Mental Status: She is alert and oriented to person, place, and time. Psychiatric: Mood and Affect: Mood normal. Speech: Speech normal. Behavior: Behavior normal. Thought Content: Thought content normal. Judgment: Judgment normal. Assessment / Plan Diagnoses and all orders for this visit: Well woman exam with routine gynecological exam Encounter for screening mammogram for malignant neoplasm of breast - Mammography screening bilateral with CAD; Future Standardized adult depression screening tool completed Skin lesion of right leg - Ambulatory referral to Dermatology (Non[facility]); Future Next pap due 2025. Discussed ASCCP screening guidelines. BMI is above average; Discussed eating tips for weight loss and and exercise steps. Discussed SBE. Discussed taking a multivitamin. Discussed Calcium and Vitamin D for prevention of osteoporosis. Discussed need for yearly mammogram after 40 yo. Order placed. Patient to discuss colon cancer screening recommendations with PCP. Educational material provided. All questions answered. Referral placed for dermatology. Patient postmenopausal, is stopping POPs. RTO for annual home designer exam and / or PRN. AMARILIS Meek APRN-CNP 01/19/24 1537 documented in this encounter [facility] 01-02-2024 Miscellaneous Notes Patient needs annual (12/15/22). One refill sent. Please call and get her scheduled. Thank you. Pt has Annual scheduled for January 18. [facility]24 Telephone encounter Note Patient needs annual (12/15/22). One refill sent. Please call and get her scheduled. Thank you. [facility] 01-02-2024 Telephone encounter Note Pt has Annual scheduled for January 18. [facility] 12-15-2023 Miscellaneous Notes Patient due for annual (12/15/22). One refill sen. Pt has Annual exam scheduled for January 18. documented in this encounter [facility] 12-15-2023 Telephone encounter Note Patient due for annual (12/15/22). One refill sen. [facility] 12-15-2023 Telephone encounter Note Pt has Annual exam scheduled for January 18. [facility] 04-16-2023 Evaluation note Encounter Date Diagnosis Assessment [...] Zyrtec/Claritin daily. Recommended patient follow-up over to [facility] for follow-up appointment with PCP to discuss next steps. Patient verbalizes understanding and is agreeable with treatment plan [facility] Other 06-06-2023 Evaluation note* Encounter Date Diagnosis Assessment Notes Treatment Notes Treatment Clinical Notes Jan, Prediabetes (ICD-10 - R73.03) Jan, Body mass index (BMI ) of 45.0-49.9 in adult (ICD-10 - Z68.42) Jan, Hypertension (ICD-10 - I10) Jan, Obstructive sleep apnea (ICD-10 - G47.33) Jan, Knee osteoarthritis (ICD-10 - M17.9) Jan, Metabolic syndrome X (ICD-10 - E88.81) [facility] Other 04-26-2023 Evaluation note* Encounter Date Diagnosis Assessment Notes Treatment Notes Treatment Clinical Notes Nov, Obstructive sleep apnea (ICD-10 - G47.33) Nov, Morbid (severe) obesity due to excess calories (ICD-10 - E66.01) [facility] Other 04-19-2023 Evaluation note* Encounter Date Diagnosis [...] following goals: - explore exercise options: [employer], [employer], and home execises; PARTIALLY MET - add more veggies - PARTIALLY MET [facility] Other 04-17-2023 Evaluation note* Encounter Date Diagnosis [...] Encounter for weight management (ICD-10 - Z76.89) [facility] Other 04-04-2023 Evaluation note* Encounter Date Diagnosis [...] goals: - NEW: explore exercise options: [employer], [employer], and home [employer] - NEW: add more veggies [facility] Other 03-11-2023 Evaluation note* Encounter Date Diagnosis [...] hip pain may be exacerbated by knee [facility] Other 03-07-2023 Evaluation note* Encounter Date Diagnosis [...] no improvement in 2 to 3 days. [facility] Other 03-03-2023 Evaluation note* Encounter Date Diagnosis [...] routine Strongly encouraged to connect with our logger driving horses for exercises she is able to do [...] Encounter for weight management (ICD-10 - Z76.89) [facility] Other 03-02-2023 Evaluation note* Encounter Date Diagnosis [...] (ICD-10 - J32.4) Take medication as directed. [facility] Other 02-07-2023 Evaluation note* Encounter Date Diagnosis [...] patient set personal goal using given handout. [facility] Other 02-02-2023 Evaluation note* Encounter Date Diagnosis [...] (ICD-10 - F41.1) Continue current treatment program [facility] Other 02-01-2023 Evaluation note* Encounter Date Diagnosis [...] discuss other options through menopause with her HOTEL CLERK. Optimize sleep quality and quantity using good [...] the week. Encouraged to take advantage of logger driving horses available at [facility] that can help work around limitations. [...] prevent diabetes. Consider metformin or GLP-1 agonist. [facility] Other 01-22-2023 Evaluation note* Encounter Date Diagnosis [...] no improvement in 2 to 3 days [facility] Other 01-16-2023 Evaluation note* Encounter Date Diagnosis [...] then have labs rechecked the day after [facility] Other 01-12-2023 Evaluation note* Encounter Date Diagnosis Assessment Notes Treatment Notes Treatment Clinical Notes Aug, Urine retention (ICD-10 - R33.9) very concerned patient is having symptoms of neurogenic bladder due to symptoms occuring after a recent fall. Recommend patient go to ER due to inability to urinate and she has not urinated since yesterday evening. [facility] Other 12-29-2022 Evaluation note* Encounter Date Diagnosis Assessment Notes Treatment Notes Treatment Clinical Notes Jul, LACEY (generalized anxiety disorder) (ICD-10 - F41.1) Jul, Other low back pain (ICD-10 - M54.59) Jul, Insomnia, unspecified type (ICD-10 - G47.00) Jul, Other spondylosis with radiculopathy, lumbar region (ICD-10 - M47.26) MME is 9.7 per day and OARRS is checked. Jul, Skin lesion (ICD-10 - L98.9) [facility] Other 12-19-2022 Evaluation note* Encounter Date Diagnosis Assessment Notes Treatment Notes Treatment Clinical Notes Jul, Other spondylosis with radiculopathy, lumbar region (ICD-10 - M47.26) [facility] Other 12-01-2022 Evaluation note* Encounter Date Diagnosis [...] work then we may discuss seeing ENT [facility] Other 11-21-2022 Evaluation note* Encounter Date Diagnosis Assessment Notes Treatment Notes Treatment Clinical Notes Jun, Left otitis media with effusion (ICD-10 - H65.92) Jun, Thrush (ICD-10 - B37.0) Jun, DDD (degenerative disc disease), lumbar (ICD-10 - M51.36) [facility] Other 11-03-2022 Evaluation note* Encounter Date Diagnosis [...] call office and we will send referal [facility] Other 10-31-2022 Evaluation note* Encounter Date Diagnosis [...] Above note written by Javed Arreola MA, Test Deck Supervisor. Edited and approved by Dr. Pop Blandon MD. [facility] Other 10-27-2022 Evaluation note* Encounter Date Diagnosis [...] F41.1) Added as needed medication as discussed. [facility] Other 09-26-2022 Evaluation note* Encounter Date Diagnosis [...] index [BMI] 40.0-44.9, adult (ICD-10 - Z68.41) [facility] Other 09-26-2022 Evaluation note* Encounter Date Diagnosis [...] index [BMI] 40.0-44.9, adult (ICD-10 - Z68.41) [facility] Other 09-22-2022 Evaluation note* Encounter Date Diagnosis Assessment Notes Treatment Notes Treatment Clinical Notes Apr, Lumbar degenerative disc disease (ICD-10 - M51.36) Keep upcoming appointments with pain management appointments and neurosurgery appt as discussed. Apr, Acute non-recurrent frontal sinusitis (ICD-10 - J01.10) Take medication as directed. Recommend taking OTC Zyrtec or allergy until after harvest season [facility] Other 08-29-2022 Evaluation note* Encounter Date Diagnosis [...] further steps are needed. Patient states understanding. [facility] Other 08-24-2022 Evaluation note* Encounter Date Diagnosis [...] note writ ten by Javed Arreola CMA, Test Deck Supervisor. Edited and approved by Dr. Pop Blandon MD. [facility] Other 08-18-2022 Evaluation note* Encounter Date Diagnosis Assessment Notes Treatment Notes Treatment Clinical Notes Mar, Strain of lumbar region, initial encounter (ICD-10 - S39.012A) [facility] Other 08-08-2022 Evaluation note* Encounter Date Diagnosis [...] to be seen. Also always know the [facility] Emergency Number is 24 hours a day available, even on holidays there is someone you can reach out to. Also we will check other labs yearly to screen for other health issues. Please remember we are a team and your opinion is very important in all of your healthcare decisions Mar, Other spondylosis with radiculopathy, lumbar region (ICD-10 - M47.26) [facility] Other 07-05-2022 Evaluation note* Encounter Date Diagnosis [...] Feb, Left lumbar pain (ICD-10 - M54.50) [facility] Other 06-01-2022 Evaluation note* Encounter Date Diagnosis Assessment Notes Treatment Notes Treatment Clinical Notes Jan, Generalized pain (ICD-10 - R52) Jan, Strain of lumbar region, initial encounter (ICD-10 - S39.012A) [facility] Other 05-19-2022 Evaluation note* Encounter Date Diagnosis [...] note writ ten by Javed Arreola CMA, Test Deck Supervisor. Edited and approved by Dr. Pop Blandon MD. [facility] Other 04-14-2022 Evaluation note* Encounter Date Diagnosis [...] note writ ten by Luli Garcias LPN, Test Deck Supervisor. Edited and approved by Dr. Pop Blandon MD. [facility] Other 03-17-2022 Evaluation note* Encounter Date Diagnosis [...] note writ ten by Javed Arreola MA, Test Deck Supervisor. Edited and approved by Dr. Pop Blandon MD. [facility] Other 03-10-2022 Evaluation note* Encounter Date Diagnosis [...] discussed so you can talk about referrals. [facility] Other 03-02-2022 Evaluation note* Encounter Date Diagnosis Assessment Notes Treatment Notes Treatment Clinical Notes Oct, Generalized pain (ICD-10 - R52) [facility] Other 01-31-2022 Evaluation note* Encounter Date Diagnosis [...] note writ ten by Javed Arreola MA, Test Deck Supervisor. Edited and approved by Dr. Pop Blandon MD. [facility] Other 12-13-2021 Evaluation note* Encounter Date Diagnosis [...] given Flexeril to help relax her muscles. [facility] Other 10-14-2021 Evaluation note* Encounter Date Diagnosis [...] Patient care instructions given in writting by [facility] Care At Home document. [facility] Other Evaluation + Plan note Future Appointments Appointment Date:10/12/2024 01:30:00 PM Scheduled Provider: Location:[facility] Appointment Type:Surgical PAT FT Appointment Date:10/19/2024 11:30:00 AM Scheduled Provider: Location:[facility] Appointment Type:Surgery FT Appointment Date:10/23/2024 10:15:00 AM Scheduled Provider:Obdulio Matamoros DO Location[facility] [place] Appointment Type:Pain Management - New (FT) [facility] Evaluation + Plan note Future Appointments Appointment Date:10/19/2024 11:30:00 AM Scheduled Provider: Location:[facility] Appointment Type:Surgery FT Appointment Date:10/23/2024 10:15:00 AM Scheduled Provider:Obdulio Matamoros DO Location:[facility] Appointment Type:Pain Management - New (FT) [facility] evaluation + Plan note Future Appointments Appointment Date:10/23/2024 10:15:00 AM Scheduled Provider:Obdulio Matamoros DO Location:[facility] Appointment Type:Pain Management - New (FT) [facility] Evaluation + Plan note Future Appointments Appointment Date:11/02/2024 10:15:00 AM Scheduled Provider: [facility] Type:XR Abdomen (FT) Appointment Date:11/02/2024 10:30:00 AM Scheduled Provider: [facility] Appoint[facility] Type:US Abdominal/Pelvis () Appointment Date:11/20/2024 10:20:00 AM Scheduled Provider:YESENIA YUSUF MD Location:[facility] Appointment Type:URO Office Visit Future Scheduled Tests Radiology* XR Abdomen 1 View 11/02/24 * US Renal 11/02/24 [facility] evaluation + Plan note Future Appointments Appointment Date:01/29/2025 11:00:00 AM Scheduled Provider:YESENIA YUSUF MD Location:[facility] Appointment Type:URO Office Visit [facility] evalugegql noteNo InformationNort [employer] Other Evaluyomcp noteNo assessment information available [facility] Work Phone: evaluation note* Diagnosis Onset Date Resolution Status Obesity, morbid, BMI 40.0-49.9 acute Obstructive sleep apnea of adult acute [facility] Work Phone: evaluation note* Diagnosis Lumbar radiculopathy- Primary Thoracic or lumbosacral neuritis or radiculitis, unspecified Polypharmacy Issue of repeat prescriptions documented in this encounter [facility] HealthcareEvaluation note* Diagnosis Postural dizziness with near syncope- Primary Abnormal EKG Nonspecific abnormal electrocardiogram (ECG) (EKG) documented in this encounter [facility] Work Phone: Evaluation note* Diagnosis Lumbosacral spondylosis without myelopathy- Primary [facility] this [facility] Diagnosis Encounter for initial prescription of contraceptive pills [facility] Diagnosis Well woman exam with routine gynecological exam- Primary Routine gynecological examination Encounter for screening mammogram for malignant neoplasm of breast Standardized adult depression screening tool completed Skin lesion of right leg Unspecified disorder of skin and subcutaneous tissue documented [facility]* Diagnosis Postural dizziness with near syncope documented in this encounter [facility] Work Phone: Evaluation note* Diagnosis Postural dizziness with near syncope documented in this encounter [facility] Work Phone: Evaluation note* Diagnosis Onychomycosis- Primary Dermatophytosis of nail Right foot pain Pain in soft tissues of limb Plantar wart Left foot pain Pain in soft tissues of limb documented in this encounter [facility]* Diagnosis Onychomycosis- Primary Dermatophytosis of nail documented in this encounter [facility] HealthcareHistory general Narrative - Reported* Type Description Date Medical History HTN Hospitalization History [facility] general Narrative - Reported* Type Description Date Medical History HTN Medical History back pain Hospitalization History [facility] Other [facility] general Narrative - Reported* Type Description Date Medical History HTN Medical History Back pain Medical History Day time fatigue Medical History Depression Medical History Gestational diabetes in the past Medical History Spinal stenosis Medical History Chronic pain requiring narcotic use Hospitalization History [facility] Other [facility] general Narrative - Reported* Type Description Date Medical History HTN Medical History Back pain Medical History Day time fatigue Medical History Depression Medical History Gestational diabetes in the past Medical History Spinal stenosis Medical History Chronic pain requiring narcotic use Hospitalization History saliva stones Hospitalization History [facility] pneumonia 09/2021 [facility] Other History [facility] - [facility] Other [facility] course Narrative No data available for this section [facility] Discharge instructions Additional Instructions Use your albuterol inhaler as prescribed for your shortness of breath and wheezing. Take Levaquin and prednisone as prescribed for pneumonia and laryngitis follow-up with the PCP for reevaluation in 5 to 7 days. .[facility] Work Phone: Hospital Discharge instructions No data available for this section [facility] InstructionsNot on filedocumented in this encounter [employer] SystemInstructions* Attachments The following attachments cannot be sent through Care Everywhere. * Menopause (Lithuanian) * Health Risks of a High BMI (Lithuanian) [facility] No data available for this section [facility] Reason for referral (narrative)* Consultation (Routine) - Pending Review Specialty Diagnoses / Procedures Referred By Lalit cisneros Referred To Contact Dermatology Diagnoses Skin lesion of right leg Naima Bates APRN-CNP [address] [place] [address] Emely Veloz MD [facility] [address] Referral ID Status Reason Start Date Expiration Date Visits Requested Visits Authorized [id number] Pending Review Specialty Services Required 01/19/2024 01/18/2025 1 1 Music DealersReason for visit NarrativeNeurosurgery Referral Update [facility] Other Rejjql for visit NarrativePain Medicine [facility] Other Reason for visit NarrativeDermatology Referral Update [facility] Other reason for visit Narrative* Consultation (Routine) - Pending Review Specialty Diagnoses / Procedures Referred By Lalit cisneros Referred To Contact Neurology Diagnoses Difficulty in walking, not elsewhere classified Spondylolysis, lumbosacral 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, lumbar region Procedures DE OFFICE/OUTPATIENT [facility] Ellie Ingram, FABRICIO [address] [place] [address] Phone: tel: fax: Joesph Macedo MD [address] [place] [address] Phone: tel: fax: Referral ID Status Reason Start Date Expiration Date Visits Requested Visits Authorized [id number] Pending Review Consult and Treat 4 01/14/2025 1 1 [facility] HealthcareReason for [facility] Narrative* Cardiovascular (Routine) - Authorized Specialty Diagnoses / Procedures Referred By Lalit cisneros Referred To Contact Cardiology Diagnoses Postural dizziness with near syncope [place] [address], [address] [address] Phone: tel: fax: Referral ID Status Reason Start Date Expiration Date V isits Requested Visits Authorized [id number] Authorized 07/31/2024 07/31/2025 1 1 [facility] Work Phone: Summary Purpose Family History No Family History Records Found Relationship Condition Age at Onset Recorded Date/T yesi brother Malignant neoplasm Unknown father Hypertension Unknown family member Unknown Not Specified Malignant neoplasm Unknown Hypertension Unknown Unknown sister Malignant neoplasm Unknown Relationship Condition Age at Onset Recorded Date/T yesi brother Malignant neoplasm Unknown father Hypertension Unknown family member Unknown mother Malignant neoplasm Unknown Hypertension Unknown Unknown sister Malignant neoplasm Unknown Advance Directives No Advanced Directives Records Found Advance Directive Response Recorded Date/ Time Advance Directives No August 05, 2018 12:30pm Advance Directive Response Recorded Date/ Time Advance Directives No August 05, 2018 1:30pm Reason for Referral Status Reason Specialty Diagnoses / Procedures Referre d By Contact Referred To Contact Closed Radiology Diagnoses Left elbow pain Procedures MRI ELBOW LEFT WO CONTRAST Edie Singh N, DO [address] [place] [address] Reason his shefflied o ffice - patient has history of chronic back pain and would like opinion if surgery is option Diagnosis 1 Pain in left lumbar region of back (M54.50) Diagnosis 2 Lumbar degenerative disc disease (M51.36) Diagnosis 3 DDD (degenerative di sc disease), lumbar (M51.36) Diagnosis 4 Other spondylosis wi th radiculopathy, lumbar region (M47.26) Referral Organization [facility] Family Medicin e Rafi Referring Provider First Name Ellie Referring Provider Last Name Juan Jose Referring Provider Specialty Nurse Pract itioner Referred Organization Unknown Facility Referred Provider Specialty Neurological Surgery Referral Priority Routine General Notes Serene Lucas 07:37:02 AM >Dr. Clements has retired and moved to another state. Would patient like to continue with This office or go somewhere else? Ellie Ingram 03/05/2022 10:16:24 AM >[facility] 10:40:16 AM >Yes, they have other Neurosurgeons there, then [facility]06[facility]22 07:55:07 AM >Waiting for office notes to be locked before sending referral [facility]10[facility] 10:08:27 AM >Referral was fax Reason *FU 07/09 lumbar p ain [facility] Diagnosis 1 Lumbar degenerative disc disease (M51.36) Referral Organization [facility] Family Medicin e Rafi Referring Provider First Name Ellie Referring Provider Last Name Juan Jose Referring Provider Specialty Nurse Pract itioner Referred Organization [facility] Referred Address [address] Referred Provider Specialty Pain Medicin e Referral Priority Routine General Notes Serene Lucas 03:02:38 PM >Received and fax referral today Clinical Notes Office [phone] Reason CANCELLED recently changed skin lesions on face Diagnosis 1 Skin lesion (L98.9) Referral Organization [facility] Family Jeffklaus kathleen Mckee Referring Provider First Name Ellie Referring Provider Last Name Juan Jose Referring Provider Specialty Nurse Pracblayne sanchez Referred Organization [facility] Referred Address [address] [place] Referred Provider Specialty Dermatology Referral Priority Routine General Notes Serene Lucas 022 08:22:14 AM >Received today and accidently sent P2P with notes not being locked. Serene Lucas 09/03/2022 01:06:15 PM >Fax letter for appt update Serene Lucas 09/03/2022 03:38:54 PM >Received letter back and [...] Diagnosis 1 Sleep apnea (G47.30) Referral Organization [facility] Referring Provider First Name Danya Referring Provider Last Name byron Referring Provider Specialty Nurse Kacie sanchez Referred Organization [facility] Referred Address [address], [place],[address] Referred Provider Specialty Sleep Medici ne Referral Priority Routine General Notes Xiomy Solo 2022 08:06:34 AM > Faxed to sleep lab. Xiomy Solo 10/22/2022 08:01:36 AM > Per Central Scheduling, order was received but pt has not been contacted yet to schedule. Specialty Diagnoses / Procedures Referred By Lalit cisneros Referred To Contact Diagnoses Lumbosacral spondylosis without myelopathy Procedures DE DSTR NROLYTC AGNT PARVERTEB FCT SNGL LMBR/SACRAL Patricia Walker MD [address] [place] [address] Referral ID Status Reason Start Date Expiration Date Visits Re quested Visits Authorized [id number] Open 02/16/2024 02/15/2025 1 1 Assessments Diagnosis Left elbow pain Pain in [...] Obesity Unspecified sleep apnea Chief Complaint R29.898 Chief Complaint SHARMILA/31-90 day follow up Reason for Visit Obesity, morbid, BMI 40.0-49.9 Obstructive sleep apnea of adult Chief Complaint SHARMILA/31-90 day follow up REQUALIFY, SHARMILA Reason for Visit Obesity, morbid, BMI 40.0-49.9 Obstructive sleep apnea of adult Chief Complaint REQUALIFY, SHARMILA REQUALIFY, SHARMILA 31-90 Visit Reason for Visit Obesity, morbid, BMI 40.0-49.9 Obstructive sleep apnea of adult Additional Source Comments INFORMATION SOURCE (unrecogn ized section and content) DATE CREATED AUTHOR 08/14/2020 [facility] DATE CREATED AUTHOR AUTHOR'S ORGANIZ ATION 11/20/2022 [facility] DATE CREATED AUTHOR AUTHOR'S ORGANIZ ATION 01/21/2024 [facility] DATE CREATED AUTHOR AUTHOR'S ORGANIZ ATION 01/22/2024 [facility] DATE CREATED AUTHOR AUTHOR'S ORGANIZ ATION 01/23/2024 [facility] DATE CREATED AUTHOR AUTHOR'S ORGANIZ ATION 02/25/2024 [facility] DATE CREATED AUTHOR AUTHOR'S ORGANIZ ATION 03/23/2024 [facility] DATE CREATED AUTHOR AUTHOR'S ORGANIZ ATION 05/06/2024 [facility] DATE CREATED AUTHOR AUTHOR'S ORGANIZ ATION 06/25/2024 [facility] DATE CREATED AUTHOR AUTHOR'S ORGANIZ ATION 10/14/2024 [facility] DATE CREATED AUTHOR AUTHOR'S ORGANIZ ATION 10/15/2024 [facility] DATE CREATED AUTHOR AUTHOR'S ORGANIZ ATION 10/21/2024 [facility] DATE CREATED AUTHOR AUTHOR'S ORGANIZ ATION 11/04/2024 [facility] DATE CREATED AUTHOR AUTHOR'S ORGANIZ ATION 11/16/2024 [facility] DATE CREATED AUTHOR AUTHOR'S ORGANIZ ATION 12/03/2024 [facility] DATE CREATED AUTHOR AUTHOR'S ORGANIZ ATION 02/27/2025 [facility] DATE CREATED AUTHOR AUTHOR'S ORGANIZ ATION 03/12/2025 [facility] DATE CREATED AUTHOR AUTHOR'S ORGANIZ ATION 03/30/2025 [facility] DATE CREATED AUTHOR AUTHOR'S ORGANIZ ATION 04/08/2025 [facility] Reason for Visit (unrecogniz ed section and content) Status Reason Specialty Diagnoses / Procedures Referre d By Contact Referred To Contact Closed Radiology Diagnoses Lateral epicondylitis, left elbow Pain in left elbow Procedures HC MRI-UPPER EXT JNT WO CONT Edie Singh, DO [address] [address] [address] [place] [address] Reason Comments New Patient Visit Specialty Diagnoses / Procedures Referred By Lalit t Referred To Contact Diagnoses Abnormal EKG Procedures ECG 12 lead (Clinic Performed) [place] [id number] [place] [address] [address] [place] [address] Phone: tel: fax: Referral ID Status Reason Start Date Expiration Date V isits Requested Visits Authorized [id number] Authorized 07/31/2024 07/31/2025 1 1 Reason Comments Med Refill Reason Comments Dizziness Syncope Follow-up Results Specialty Diagnoses / Procedures Referred By Lalit t Referred To Contact Cardiology Diagnoses Postural dizziness with near syncope Procedures Follow Up In Cardiology Martin Larios MD [address] [place] [address] [address], [facility] [address] [place] [address] Phone: tel: fax: Referral ID Status Reason Start Date Expiration Date V isits Requested Visits Authorized [id number] Pending Review 07/31/2024 07/31/2025 1 1 Reason Comments 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 Patient states she has pain with this. Patient states she had cryotherapy with PCP at the of November and it did not work. Patient also relates fungal nails with 4th and 5th digits with right foot. Care Teams (unrecognized sec tion and content) Team Status: Active Member Role Status Dates NON STAFF Primary Care Provider Active Team Status: Inactive Member Role Status Dates Dario Olmedo MD Attending Provider Active Start: December 28, 2023 End: December 28, 2023 NON STAFF Primary Care Provider Active Start: December 28, 2023 End: December 28, 2023 Team Status: Active Member Role Status Dates Dario Olmedo MD Attending Pr ji, Other Provider Active Start: December 29, 2023 NON STAFF Primary Care Provider Active Start: December 29, 2023 Team Status: Inactive Member Role Status Dates NON STAFF Primary Care Provider Active Start: March 15, 2024 End: March 15, 2024 Dario Olmedo MD Attending Provider Active Start: March 15, 2024 End: March 15, 2024 Team Status: Inactive Member Role Status Dates NON STAFF Primary Care Provider Active Reinaldo Mehta DO Emergency Provider Active Team Status: Active Member Role Status Dates Ellie Ingram , SENIOR JAVA WE[employer] APPLICATION DEVELOPER-C Primary Care Provider, Atten ding Provider Active Team Status: Inactive Member Role Status Dates Ellie Juan Joes , SENIOR JAVA WEB APPLICATION DEVELOPER-C Primary Care Provider, Atten ding Provider Active Team Status: Active Member Role Status Dates Ellie Juan Jose , SENIOR JAVA WEB APPLICATION DEVELOPER-C Primary Care Provider Active Team Status: Inactive Member Role Status Dates Ellie Juan Jose , SENIOR JAVA WEB APPLICATION DEVELOPER-C Primary Care Provider Active Edie Bolton DO Emergency Provider Active Team Status: Inactive Member Role Status Dates Ellie Juan Jose , SENIOR JAVA WEB APPLICATION DEVELOPER-C Primary Care Provider Active Susana Ellis NP-C Attending Provider Active Team Status: Inactive Member Role Status Dates Ellie Juan Jose , SENIOR JAVA WEB APPLICATION DEVELOPER-C Primary Care Provider Active Danya Carty APRN Referring Provider Active Dario Olmedo MD Attending Provider Active Team Status: Inactive Member Role Status Dates Ellie Juan Jose , SENIOR JAVA WEB APPLICATION DEVELOPER-C Primary Care Provider Active Dario Olmedo MD Attending Provider Active Team Status: Inactive Member Role Status Dates Ellie Martinezault , SENIOR JAVA WEB APPLICATION DEVELOPER-C Primary Care Provider Active Dario Palacios DO Attending Provider Active Team Status: Inactive Member Role Status Dates Ellie Martinezault , SENIOR JAVA WEB APPLICATION DEVELOPER-C Primary Care Provider Active Start: November 26, 2023 End: November 26, 2023 Susan Duckworth APRN ACNP-BC Attending Provider Active Start: November 26, 2023 End: November 26, 2023 Team Status: Active Member Role Status Dates NON STAFF Primary Care Provider Active Start: October 13, 2023 Estuardo Judge DO Attending Provider Active Sta rt: October 13, 2023 Row Boss Relationship Specialty Start Date End Date Unallocated, Rae Provider, [address] [place] [address] PCP - General Family Medicine 07/18/24 Ellie Ingram NP [address] [place] [address] Referring Physician 07/18/24 Row Boss Relationship Specialty Start Date End Date Unallocated, Noms MD [address] [place] [address] PCP - General Family Medicine 07/18/24 Ellie Ingram NP [address] [place] [address] Referring Physician 07/18/24 Row Boss Relationship Specialty Start Date End Date Ellie Ingram APRN-ALYSON [address] [place] [phone] PCP - General Family Medicine 07/18/24 Row Boss Relationship Specialty Start Date End Date Ellie Ingram APRN - NP [address] [place] [address] PCP - General 03/26/22 Row Boss Relationship Specialty Start Date End Date Ellie Ingram APRN-CNP [address] [place] [phone] PCP - General Family Medicine 07/18/24 Martin Larios MD [address] [place] [address] Consulting Physician Cardiology 11/09/24 Row Boss Relationship Specialty Start Date End Date Ellie Ingram APRN-CNP [address] [place] [phone] PCP - General Family Medicine 07/18/24 Martin Larios MD [address] [place] [address] Consulting Physician Cardiology 11/09/24 Row Boss Relationship Specialty Start Date End Date Rancho Hernandez MD [address] [place] [address] PCP - General Family Medicine 03/16/25 Ellie Ingram NP [address] [place] [address] Referring Physician 07/18/24 Row Boss Relationship Specialty Start Date End Date Rancho Hernandez MD [address] [place] [address] PCP - General Family Medicine 03/16/25 Ellie Ingram NP [address] [place] [address] Referring Physician 07/18/24 Row Boss Relationship Specialty Start Date End Date Rancho Hernandez MD [address] [place] [address] PCP - General Family Medicine 03/16/25 Ellie Ingram NP [address] [place] [address] Referring Physician 07/18/24 Goals (unrecognized section and content) Goals may be documented in a n alternate section Ordered Prescriptions (unrec ognized section and content) Prescription Sig Dispensed Refills Start Date End Da te topiramate (TOPAMAX) 25 MG tablet Take 3 tablets by mouth nightly 90 tablet 0 02/15/2024 03/16/2024 FOR RECORDS PERTAINING TO PATIENTS WHO ARE [...] BE BASED ON THE PRIMARY CLINICAL RECORDS. [facility]. provides no warranty or guarantee of the accuracy or completeness of information in this document.
--- NOTE | 2025-04-19 15:15 | PM.CN ---
Consult Note: HPI Data of Consult Patient: known to practice within the last 3 years Requesting Physician: Lois Borjas NP Primary Care Provider: LIT TORRES Consult Narrative Reason for consult: establish care, chronic neck and low back pain Narrative: Mariana Kelly a pleasant 54 year old female presents for evaluation of chronic neck and low back pain. pt is on disability, has been diagnosed this year with POTS, and has a hx of lumbar spondylosis and lumbar stenosis with NC. pt previously following with [facility] pain management in 2023 with short term relief from injections, was interested in a spinal cord stimulator. Pt recently established with a new PCP who has made numerous medication changes, pt typically received possible toradol injections and oral steroids every few months from her pcp as well as gabapentin, tizanidine, temazepam, and tramadol. pt does not find these medications helpful since she has been on them for a while. i have no records from her PCP at this time. no recent imaging. cannot tolerate PT due to severe pain. JU 40%. pain today 8/10 in neck and low back, increasing with standing and walking. cc:: CC: Lois Borjas NP Review of Systems ROS Musculoskeletal Reports: back pain, neck pain, extremity pain and joint pain PFSH PFS Medical History (Updated 04/19/25 @ 15:26 by Lois Borjas NP) Tachycardia ?R00.0 - Tachycardia, unspecified (ICD-10) Autonomic dysfunction ?G90.9 - Disorder of the autonomic nervous system, unspecified (ICD-10) Stage 3b chronic kidney disease (CKD) ?N18.32 - Chronic kidney disease, stage 3b (ICD-10) Extrinsic asthma without complication ?J45.909 - Unspecified asthma, uncomplicated (ICD-10) LACEY (generalized anxiety disorder) ?F41.1 - Generalized anxiety disorder (ICD-10) Hypertension ?I10 - Essential (primary) hypertension (ICD-10) Prediabetes ?R73.03 - Prediabetes (ICD-10) Lumbar spondylosis ?M47.816 - Spondylosis without myelopathy or radiculopathy, lumbar region (ICD-10) Back pain ?M54.9 - Dorsalgia, unspecified (ICD-10) Anxiety ?F41.9 - Anxiety disorder, unspecified (ICD-10) Family History Mother Family history of COPD (chronic obstructive pulmonary disease) Family history of cancer Family history of hypertension Grandfather Family history of cancer Family history of diabetes mellitus Family history of myocardial infarction Family history of stroke Grandmother Family history of diabetes mellitus Sister Family history of hypertension Father Family history of hypertension Social History Within the past year, how often did you have a drink containing alcohol: monthly or less Within the past year, how often did you have six or more drinks on one occasion: less than monthly Smoking status: Never smoker Non-prescribed substance use: cannabis (any form) Non-prescribed substance use details: vape cbd 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 Highest level of school completed/degree received: some college, no degree Are you now , , , , never or living with a partner: In a typical week, how many times do you talk on the telephone with family, friends, or neighbors: 3 or more times per week How often do you get together with friends or relatives: 3 or more times per week How often do you attend rastafarian or congregational services: never Do you belong to any clubs or organizations such as rastafarian groups unions, [employer] or athletic groups, or school groups: no Total score: 1 Score interpretation: A score of less than or equal to 1 indicates the most socially isolated. Little interest or pleasure in doing things: more than half the days Feeling down, depressed, or hopeless: not at all Feel stressed/tense/nervous/anxious/difficulty sleeping: not at all Do you think of yourself as: straight/heterosexual Gender Identity: female Meds Home Medications and Allergies Home Medications ?Medication ?Instructions ?Recorded ?Confirmed ?Type albuterol sulfate 90 mcg/actuation 2 puff inhalation Q4H PRN 10/08/23 10/13/23 History aerosol inhaler shortness of breath or wheezing amitriptyline 75 mg tablet 75 mg PO QPM 10/08/23 10/13/23 History budesonide-formoterol HFA 160 1 puff inhalation Q12H 10/08/23 10/13/23 History mcg-4.5 mcg/actuation aerosol inhaler (Symbicort) cetirizine 10 mg tablet 10 mg PO DAILY 10/08/23 10/13/23 History duloxetine 60 mg capsule,delayed 60 mg PO BID 10/08/23 10/13/23 History release gabapentin 600 mg tablet 600 mg PO QID 10/08/23 10/13/23 History hydroxyzine HCl 50 mg tablet 50 mg PO TID PRN anxiety 10/08/23 10/13/23 History liraglutide 0.6 mg/0.1 mL (18 mg/3 1.8 mg subcut DAILY 10/08/23 10/13/23 History mL) subcutaneous pen injector (Victoza 2-Florentino) meloxicam 7.5 mg tablet 7.5 mg PO DAILY 10/08/23 10/13/23 History norethindrone (contraceptive) 0.35 0.35 mg PO DAILY 10/08/23 10/13/23 History mg tablet (Deblitane) pantoprazole 20 mg tablet,delayed 20 mg PO DAILY 10/08/23 10/13/23 History release tizanidine 4 mg tablet 4 mg PO TID PRN muscle spasticity 10/08/23 10/13/23 History topiramate 25 mg tablet 25 mg PO QPM 10/08/23 10/13/23 History hkrusqjhqq-ieisvobexefcz-mtogpdoo 1 tab PO Q6H PRN Headache #20 tabs 10/15/23 Rx 50 mg-325 mg-40 mg tablet cefdinir 300 mg capsule 300 mg PO BID 10 days #20 caps 10/15/23 Rx fludrocortisone 0.1 mg tablet 0.1 mg PO QD #30 tabs 10/15/23 Rx metoprolol tartrate 25 mg tablet 25 mg PO BID #60 tabs 10/15/23 Rx prednisone 50 mg tablet 50 mg PO DAILY 5 days #5 tabs 10/15/23 Rx Allergies Allergy/AdvReac Type Severity Reaction Status Date / Time No Known Drug Allergies Allergy Verified 10/08/23 18:17 Exam Constitutional Documenting provider has reviewed patient's vital signs: yes Common normals: no apparent distress, oriented x3 and alert General appearance: cooperative Nutritional appearance: overweight HENMT Common normals: normocephalic, hearing grossly normal bilaterally and moist oral mucous membranes Head and scalp: normocephalic Eye Common normals: PERRL Pupil: PERRL Neck & C-Spine Common normals: full ROM General: normal visual inspection Cervical spine: normal cervical lordosis, pain with cervical ROM and cervical spine tenderness C5, C6 and C7 Other: sensation intact BUE strength 5/5 in BUE Chest Common normals: inspection of chest normal Respiratory Common normals: normal respiratory effort, no retractions and no use of accessory muscles Back & Pelvis Thoracic spine/upper back: ROM limited, pain with ROM and thoracic spinal tenderness Lumbar spine/lower back: ROM limited, pain with ROM, lumbar spinal tenderness, straight leg raise positive right and straight leg raise positive left Sacroiliac joints: SI joint(s) abnormal Other: diffuse hyperalgesia, does have significant diffuse pain right > left sij positive delilah(patricks), gaenslens, thigh thrust, compression test Neuro Common normals: oriented x3 Sensorium/orientation: alert Psych Common normals: mental status grossly normal, thought process normal, cooperative, affect normal, speech normal and activity/motor behavior normal Speech: normal speech Thought process: normal thought process Results Additional Findings Additional findings: If on a controlled substance or opioids, I have checked an [place]AR[place] report on this patient and there are no aberrancies noted in the prescribing history.??If on a controlled substance or opioid a drug screen was completed and reviewed within the last year, and if there has not been a drug screen completed we ordered one today to monitor higher risk, state monitored pain medication use. As part of providing excellent, safe, comprehensive care, the following was completed at our patient's visit: 1. A medication reconciliation and review to ensure accurate knowledge of current/active medications, including asking our patients to inform us about any gtio-wnc-gzpelmj medications or herbal remedies/nutritional supplements/alternative remedies. 2. A review to specifically ensure our patients have had annual screening for screening for depression, screening for tobacco use, and screening for unhealthy alcohol use. For concerning screenings had a discussion with the patient, provided patient education, and recommended follow-up with primary care provider when appropriate. If patient noted with a risk of falling, they received education on strength, gait, and balance training to prevent future risk of falling. Portions of this note may have been carried over from the previous visit and updated as appropriate. Please note this office utilizes paper charting in addition to the electronic medical record. A list of current medications, vitals, and PMH is available there as the clinical staff outside of myself do not have access to [employer] charting during the clinic day operations. As part of providing quality comprehensive care the current medications, vitals, and PMH were reviewed in the paper chart. 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 no recent imaging. cannot attend pt due to severe pain, has found benefit to aquatherapy in the past. on exam pt has findings consistent with fibromyalgia. as discussed with pt fibromyalgia can present as diffuse pain, fatigue, brain fog, depression, hypersensitivity. with her response to prior short term oral steroids and kenalog shots it makes sense she found improvement with these, however its not a standard of care. pt did trial pregabalin for 1 month in the past with minimal response, unsure of dose/frequency. pt continues to f/u with cardiology for POTS. as discussed with pt if she has not been worked up for inflammatory arthritis or autoimmune conditions in the past she should discuss this with her PCP. WOOD FLOORING SPECIALIST reviewed and signed, will update UDS for medication monitoring. update cervical xray to assess chronic neck pain, update lumbar xray with flexion to assess lumbar spondylosis and stability, update lumbar MRI without contrast to assess lumbar DDD and lumbar stenosis with NC in consideration of interventional therapy vs NS consult as pt has had severe pain >12 months and cannot tolerate PT, has failed to benefit from tylenol, cannot take NSAIDs with ckd, heat, ice. f/u to review imaging
== END 2025-04-19 14:08 | disposition home or self-care (01) ==
LOC: PM 14:08
PROVIDERS: PCP Nurse Practitioner Family; Visit Provider Nurse Practitioner
DX: M54.2 Cervicalgia (principal); M79.18 Myalgia, other site; M48.062 Spinal stenosis, lumbar region with neurogenic claudication; M51.369 Other intervertebral disc degeneration, lumbar region without mention of lumbar back pain or lower extremity pain; Z51.81 Encounter for therapeutic drug level monitoring; M46.1 Sacroiliitis, not elsewhere classified
CPT/HCPCS: G0463

== ENCOUNTER 2025-04-26 11:52 | Outpatient (OUT) | payer MEDICARE, MEDICAID, SELFPAY ==
--- OUTSIDE RECORDS SUMMARY | 2025-03-16 07:15 | XMS_ITS ---
Author Organization [facility] es Address [address] [place] [address] Care Team Providers Care Hook And Eye Attacher Name Role Phone Ellie Bartholomew Primary Care Provider Marie Noel Unavailable [phone] REASON FOR VISIT 6 weeks Encounters Encounter Location Date Provider Diagnosis [place] [address] [place] [address] 03/16/2025 Marie Noel Plan Of Treatment Next Appt Details Provider Name:Rancho rueda, 05/16/2025 10:15:00 AM, [address] [facility], [place], [address], Provider Name:Nataliia Monaco, 05/21/2025 10:00:00 AM, [address] [place], [place], [address], Progress Notes * JOSELITO VIDALDOB: [birth year] (54 yo F)Acc No.[id number]:03/16/2025 Behavioral Health Patient: Sam MENDOZA JOSELITO Appointment Provider: Ruperto NOEL PMHNP-BC :1970 A ge:54 Y S ex:Female Date:03/16/2025 Address:[address] [place], [id number] Pcp:Ellie Bartholomew Subjective: * Chief Complaints: * 1 . 6 weeks. * Medical History: Objective: * Vitals: Assessment: Plan: * Treatment: * Images: * Electronic signature of LEELEE Baker i BC on 04/26/2025 at 11:57 AM EDT Sign off status: Pending * Appointment Provider: LEELEE ESCOBAR- Date: 03/16/2025 Generated for Jb ku/Jonatan/Daniella on: 0 04/26/2025 11:57 AM EDT
--- OUTSIDE RECORDS SUMMARY | 2025-04-18 06:45 | XMS_ITS ---
Author Organization [facility] Servic es Address [address] [place] [address] Care Team Providers Care Agricultural Chemist Name Role Phone Ellie Bartholomew Primary Care Provider Marie Waggoner Unavailable [phone] Rancho Hernandez Unavailable [phone] Allergies No Known Allergies REASON FOR VISIT [...] (Standard) Question Answer Notes Tobacco use: Nonsmoker Problems Problem Type SNOMED Code ICD Code Onset Dates Problem Status W/U Status Risk Notes Problem Allergic rhinitis, unspecified (J30.9) Active confirmed Vital Signs Height 62 in 04/18/2025 Weight 255 lbs 04/18/2025 BMI 46.64 kg/m2 04/18/2025 Blood pressure systolic 120 mm Hg 04/18/20 25 Blood pressure diastolic 79 mm Hg 025 Oximetry 92 % 04/18/2025 Heart Rate 65 /min 04/18/2025 Respiratory Rate 20 /min 04/18/2025 Encounters Encounter Location Date Provider Diagnosis [address] [address] 04/18/2025 Rancho Hernandez Type 2 diabetes erlin itus with diabetic nephropathy, 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 ; Neuropathic pain M79.2 ; Chronic insomnia F51.04 ; Lumbosacral spondylolysis M43.07 ; POTS (postural orthostatic tachycardia syndrome) G90.A ; Allergic rhinitis, unspecified J30.9 and Spondyloarthropathy of lumbar spine M47.816 Assessments Encounter Date Diagnosis (ICD Code) Assessment Notes Treatment Notes Treatment Clinical Notes Section Notes 04/18/2025 Type 2 diabetes mellitus with diabetic nephropathy, without long-term current use of insulin (ICD-10 - E11.21) Diabetes is actively managed due to high cardiovascular risk and insurance requirements for medication coverage. Patient is on Trulicity and Jardiance, but reports plateaued weight loss. Recent home health check included medication review and blood work. - Continue Trulicity. 04/18/2025 Neuropathic pain (ICD-10 - M79.2) Neuropathy is managed with medication adjustments. Patient previously used gabapentin and Lyrica, now transitioning to amitriptyline. - Stop gabapentin. - Start amitriptyline. 04/18/2025 Chronic insomnia (ICD-10 - F51.04) Insomnia is attributed to pain. Temazepam is discontinued and amitriptyline is started for dual benefit. - Stop temazepam. - Start amitriptyline for insomnia and neuropathy. 04/18/2025 Lumbosacral spondylolysis (ICD-10 - M43.07) Chronic pain is managed with multiple medications and non-pharmacologic strategies. Patient uses Tramadol, tizanidine, magnesium spray, and swimming for relief. - Continue Tramadol. - Continue tizanidine as needed. - Encourage non-pharmacologic pain management (magnesium, swimming). 04/18/2025 POTS (postural orthostatic tachycardia syndrome) (ICD-10 - G90.A) POTS is managed with metoprolol, fludrocortisone, and midodrine. Patient is attentive to medication interactions and coordinates care with cardiology. - Continue metoprolol. - Continue fludrocortisone. - Continue midodrine. 04/18/2025 Allergic rhinitis, unspecified (ICD-10 - J30.9) Allergic rhinitis previously managed with cetirizine, now discontinued. - Stop cetirizine. 04/18/2025 Spondyloarthropathy of lumbar spine (ICD-10 - M47.816) Plan Of Treatment Medication Medication Name Sig [...] capsule Orally 3 t imes a day Treatment Notes Assessment Notes Type 2 diabetes mellitus wit h diabetic nephropathy, without long-term current use of insulin Diabetes is actively managed due to high cardiovascular risk and insurance requirements for medication coverage. Patient is on Trulicity and Jardiance, but reports plateaued weight loss. Recent home health check included medication review and blood work. - Continue Trulicity. Neuropathic pain Neuropathy is managed with medication adjustments. Patient previously used gabapentin and Lyrica, now transitioning to amitriptyline. - Stop gabapentin. - Start amitriptyline. Chronic insomnia Insomnia is attributed to pain. Temazepam is discontinued and amitriptyline is started for dual benefit. - Stop temazepam. - Start amitriptyline for insomnia and neuropathy. Lumbosacral spondylolysis Chronic pain is managed with multiple medications and non-pharmacologic strategies. Patient uses Tramadol, tizanidine, magnesium spray, and swimming for relief. - Continue Tramadol. - Continue tizanidine as needed. - Encourage non-pharmacologic pain management (magnesium, swimming). POTS (postural orthostatic t achycardia syndrome) POTS is managed with metoprolol, fludrocortisone, and midodrine. Patient is attentive to medication interactions and coordinates care with cardiology. - Continue metoprolol. - Continue fludrocortisone. - Continue midodrine. Allergic rhinitis, unspecified Allergic rhinitis previously managed with cetirizine, now discontinued. - Stop cetirizine. Next Appt Details Follow Up: 4 Weeks, Reason: insomnia, neuropathy Provider Name:Rancho rueda, 05/16/2025 10:15:00 AM, [address], [place], [address], Provider Name:Nataliia Leroyhong, 05/21/2025 10:00:00 AM, [address] , [place], [address], Progress Notes * JOSELITO VIDALDOB: 2 (54 yo F)Acc No.[id number]:04/18/2025 Progress Notes Patient: JOSELITO DAN Provider: Nury Hernandez :1970 A ge:54 Y S ex:Female Date:04/18/2025 Address:[address] [place] [address] [address], [phone] Pcp:Ellie Bartholomew Subjective: * Chief Complaints: * 1 . Med recheck. * HPI: C onstitutional: Joselito Vidal, a 54-year-old female, presented for a chronic condition follow- up focused on medication management and pain control. She described a plateau in her weight loss while on Trulicity and voiced concerns about the necessity of a statin, prompted by a recent home health check. Insurance coverage for Ozempic and Mounjaro has been a source of frustration, as she faces cost barriers and is actively researching alternative medications and approval processes. Her engagement in her care is evident through her efforts to understand medication options and insurance requirements. Chronic pain and insomnia remain significant challenges for her, with severe pain episodes affecting her legs and neck, and sleep disturbances she attributes to pain. She expressed dissatisfaction with her current pain regimen, noting that medications such as gabapentin, Lyrica, duloxetine, tizanidine, Tramadol, and Topamax have not provided adequate relief. After experiencing side effects, she discontinued Cymbalta. In her pursuit of better pain control, she has incorporated magnesium spray and a multivitamin with magnesium, finding these helpful for muscle tightness, and enjoys swimming to alleviate sciatica pain. Her proactive approach includes researching non-pharmacologic strategies to manage her symptoms. For neuropathy and POTS, she reported ongoing symptoms and is currently using metoprolol, fludrocortisone, and midodrine. She remains cautious about medication interactions and side effects, referencing prior use of gabapentin and Lyrica, and coordinates care with her cigar packer and grader. Her attentiveness to medication changes and willingness to try new therapies, provided they are closely monitored, reflect her commitment to managing these conditions. Headaches and migraines continue to impact her quality of life. She noted that Nurtec was previously effective but discontinued due to insurance limitations, and expressed frustration with the limited options available for headache control. She discussed prior use of Topamax and Nurtec, and remains persistent in seeking relief, open to alternative therapies if accessible. During the visit, she requested removal of medications she perceives as ineffective or unnecessary, including Cymbalta, cetirizine, and hydroxyzine, demonstrating her motivation to minimize her medication burden. She actively engages in medication review and seeks provider input for changes. Her management of GERD and nausea includes ongoing use of Protonix for reflux and ondansetron for nausea. She discussed these aspects of her care, reflecting her continued efforts to address gastrointestinal symptoms. Finally, she reported discontinuing cetirizine for allergic rhinitis, indicating a shift in her approach to allergy management. D epression Screening: PHQ-2 (2015 Edition) L ittle interest or pleasure in doing things??Not at all F eeling down, depressed, or hopeless? N ot at all T otal Score 0 * ROS: 1 0 point ROS completed otherwise negative except as per HPI. * Medical History: S pondylolithesis with radiculapathy, Lumbar fracture, POTS, DM, HTN, CKD, Chronic insomnia. * Surgical History: k idney stone 2024. * Hospitalization/Major Diagno stic Procedure: s aliva stones at [facility] 2008, child (x4) 1990, 1993, 2002, 2006 , Extreme Dizziness - [facility] 2023, kidney stone 2024. * Family [...] SaO2:92%, HR: 65 /min, RR: 20 /min. * Examination: G eneral Examination: GENERAL APPEARANCE: A lert and oriented, in no acute distress, pleasant. EYES: e xtra ocular muscles intact (EOMI) bilaterally, no discharge, pupils, equal, round, reactive to light and accomodation (PERRLA), sclera clear. NECK/THYROID: t rachea is midline, no adenopathy, normal thyroid without masses or nodules. CARDIOVASCULAR: R egular rate and rhythm, S1/S2 are normal, no murmurs, rubs, or gallops. PERIPHERAL PULSES: r adial pulses +2/4 bilaterally, posterior tibial pulses +2/4 bilaterally. RESPIRATORY: c lear to auscultation bilaterally, good breath sounds bilaterally, no wheezes, rhonchi, rales. GASTROINTESTINAL: A bdomen Soft, not tender, positive bowel sounds in all 4 quadrants, no guarding.. NEUROLOGIC EXAM: C N's II-XII grossly intact , alert and oriented x 3 , normal gait. SKIN: m oist, warm, unremarkable, no rash. EXTREMITIES: b ilaterally no clubbing, cyanosis, or edema.? MUSCULOSKELETAL: N ormal ROM and strength is 5/5 throughout, normal inspection, no effusions, no swelling or deformity. Assessment: * Assessment: 1. T ype 2 diabetes mellitus with diabetic nephropathy, without long-term current use of insulin - E11.21 (Primary) 2 . N europathic pain - M79.2 3 . C hronic insomnia - F51.04 4 . L umbosacral spondylolysis - M43.07 5 . P OTS (postural orthostatic tachycardia syndrome) - G90.A 6 . A llergic rhinitis, unspecified - J30.9 7 . S pondyloarthropathy of lumbar spine - M47.816? Plan: * Treatment: 2. N europathic pain Stop Gabapentin Capsule, 400 MG, 1 capsule, Orally, 3 times a day; S tart Amitriptyline HCl Tablet, 25 MG, 1 tablet at bedtime, Orally, Once a day, 30 day(s), 30. Notes: Neuropathy is managed with medication adjustments. Patient previously used gabapentin and Lyrica, now transitioning to amitriptyline. - Stop gabapentin. - Start amitriptyline. 3. C hronic insomnia Stop Temazepam Capsule, 30 MG, 1 capsule at bedtime as needed, Oral, Once a day. Notes: Insomnia is attributed to pain. Temazepam is discontinued and amitriptyline is started for dual benefit. - Stop temazepam. - Start amitriptyline for insomnia and neuropathy. 4. L umbosacral spondylolysis Stop dexAMETHasone Tablet, 4 MG, 3 tablets for 3 days then 2 tablets for 3 days then 1 tablet for 3 days, Orally, Once a day; S top tiZANidine HCl Capsule, 4 MG, 1 capsule at bedtime as needed, Oral, 3 times. Notes: Chronic pain is managed with multiple medications and non-pharmacologic strategies. Patient uses Tramadol, tizanidine, magnesium spray, and swimming for relief. - Continue Tramadol. - Continue tizanidine as needed. - Encourage non-pharmacologic pain management (magnesium, swimming). 5. P OTS (postural orthostatic tachycardia syndrome) Notes: POTS is managed with metoprolol, fludrocortisone, and midodrine. Patient is attentive to medication interactions and coordinates care with cardiology. - Continue metoprolol. - Continue fludrocortisone. - Continue midodrine. 6. A llergic rhinitis, unspecified Notes: Allergic rhinitis previously managed with cetirizine, now discontinued. - Stop cetirizine. 7. S pondyloarthropathy of lumbar spine Refill traMADol HCl Tablet, 50 MG, 1 tablet as needed, Orally, Once a day, 30 days, 30 Tablet, Refills 0. * Procedure Codes: 3 078F DIAST BP < 80 MM HG, 3074F SYST BP LT 130 MM HG, 1160F RVW MEDS BY RX/DR IN RCRD * Follow Up: 4 Weeks (Reason: insomnia, neuropathy) * Images: * Sign off status: Completed true * Provider: Nury Hernandez Date: 0 04/18/2025 Generated for Jb ku/Jonatan/Daniella on: 0 04/26/2025 11:57 AM EDT History and Physical Notes * HPI (History of Present Illness) Category Sub-Category Detail Notes Category Not es Depression Screening PHQ-2 (2015 Edition) Little interest or pleasure in doing things?: Not at all Feeling down, depressed, or hopeless?: N ot at all Total Score: 0 Constitutional Joselito Vidal, a 54-year-old female, presented for a chronic condition follow-up focused on medication management and pain control. She described a plateau in her weight loss while on Trulicity and voiced concerns about the necessity of a statin, prompted by a recent home health check. Insurance coverage for Ozempic and Mounjaro has been a source of frustration, as she faces cost barriers and is actively researching alternative medications and approval processes. Her engagement in her care is evident through her efforts to understand medication options and insurance requirements. Chronic pain and insomnia remain significant challenges for her, with severe pain episodes affecting her legs and neck, and sleep disturbances she attributes to pain. She expressed dissatisfaction with her current pain regimen, noting that medications such as gabapentin, Lyrica, duloxetine, tizanidine, Tramadol, and Topamax have not provided adequate relief. After experiencing side effects, she discontinued Cymbalta. In her pursuit of better pain control, she has incorporated magnesium spray and a multivitamin with magnesium, finding these helpful for muscle tightness, and enjoys swimming to alleviate sciatica pain. Her proactive approach includes researching non-pharmacologic strategies to manage her symptoms. For neuropathy and POTS, she reported ongoing symptoms and is currently using metoprolol, fludrocortisone, and midodrine. She remains cautious about medication interactions and side effects, referencing prior use of gabapentin and Lyrica, and coordinates care with her cigar packer and grader. Her attentiveness to medication changes and willingness to try new therapies, provided they are closely monitored, reflect her commitment to managing these conditions. Headaches and migraines continue to impact her quality of life. She noted that Nurtec was previously effective but discontinued due to insurance limitations, and expressed frustration with the limited options available for headache control. She discussed prior use of Topamax and Nurtec, and remains persistent in seeking relief, open to alternative therapies if accessible. During the visit, she requested removal of medications she perceives as ineffective or unnecessary, including Cymbalta, cetirizine, and hydroxyzine, demonstrating her motivation to minimize her medication burden. She actively engages in medication review and seeks provider input for changes. Her management of GERD and nausea includes ongoing use of Protonix for reflux and ondansetron for nausea. She discussed these aspects of her care, reflecting her continued efforts to address gastrointestinal symptoms. Finally, she reported discontinuing cetirizine for allergic rhinitis, indicating a shift in her approach to allergy management. Examination Category Sub-Category Detail Notes Category Not es General Examination NECK/THYROID: trachea is m idline, no adenopathy, normal thyroid without masses or nodules CARDIOVASCULAR: Regular rate and rhy thm, S1/S2 are normal, no murmurs, rubs, or gallops RESPIRATORY: clear to auscultatio n bilaterally, good breath sounds bilaterally, no wheezes, rhonchi, rales GASTROINTESTINAL: Abdomen Soft, not te nder, positive bowel sounds in all 4 quadrants, no guarding. EXTREMITIES: bilaterally no clubb ing, cyanosis, or edema GENERAL APPEARANCE: Alert and oriented, in no acute distress, pleasant SKIN: moist, warm, unremar kable, no rash NEUROLOGIC EXAM: CN's II-XII grossly intact , alert and oriented x 3 , normal gait PERIPHERAL PULSES: radial pulses +2/4 b ilaterally, posterior tibial pulses +2/4 bilaterally MUSCULOSKELETAL: Normal ROM and stren gth is 5/5 throughout, normal inspection, no effusions, no swelling or deformity EYES: extra ocular muscles intact (EOMI) bilaterally, no discharge, pupils, equal, round, reactive to light and accomodation (PERRLA), sclera clear
--- OUTSIDE RECORDS SUMMARY | 2025-04-23 05:45 | XMS_ITS ---
Author Organization [facility] Address [address] [place] [address] Care Team Providers Care Macerator Operator Name Role Phone Ellie Bartholomew Primary Care Provider Marie Waggoner Unavailable [phone] Dr. Brice العراقي Unavailable [phone] REASON FOR VISIT UPDARED EXAM Encounters Encounter Location Date Provider Diagnosis [facility] [address] [place] [place] [address] 04/23/2025 Brice العراقي Plan Of Treatment Next Appt Details Provider Name:Rancho rueda, 05/16/2025 10:15:00 AM, [address] [place], [address], Provider Name:Nataliia Leroyhong, 05/21/2025 10:00:00 AM, [address] [place], [address], Progress Notes * JOSELITO VIDALDOB: [birth year] (54 yo F)Acc No.[id number]:04/23/2025 Patient: Sam JOSELITO MENDOZA Provider: Aquiles العراقي DDS :1970 A ge:54 Y S ex:Female Date:04/23/2025 Address:[facility] [address] [id number] Pcp:Ellie Bartholomew Subjective: * Chief Complaints: * 1 . UPDARED EXAM. * Medical History: Objective: * Vitals: Assessment: Plan: * Treatment: * Images: * Electronic signature of Dr. Brice العراقي , DMD on 04/26/2025 at 11:57 AM EDT Sign off status: Pending * Provider: Aquiles لاعراقي DDS Date: 04/23/2025 Generated for Jb ku/Jonatan/Daniella on: 04/26/2025 11:57 AM EDT
--- OUTSIDE RECORDS SUMMARY | 2025-04-26 11:57 | XMS_ITS | Clinical Summary ---
Author Organization [facility] Address [address] [place] [address] Phone Care Team Providers Care Customer Acquisition Specialist Name Role Phone Ellie Ingram INSECT CONTROL AIDE-CORRUGATOR Primary Care Provider Dileep Ceja MD Unavailable [phone] Allergies No known active allergies Medications albuterol [...] Type Department Care Team Description 02/26/2025 Refill [facility] [address] [address] Latanya Bhatia RN Postural dizziness with near [...] Description 05/31/2025 1:15 PM EDT Office Visit [facility] Medical Office Building [address] [facility] [address] [place] [phone] [place] [address] [facility] [place], [place] [id number] Health Maintenance Due Date Last Done Comments [...] patient's age to complete this topic Insurance [facility] MEDICARE ASSURE MEDICAID [facility] MEDICARE ASSURE MEDICAID Care Teams Customer Acquisition Specialist Relationship Specialty Start Date End Date Ellie Ingram, INSECT CONTROL AIDE-CORRUGATOR [address] [place] [phone] PCP - General Family Medicine 07/18/24 Dileep Ceja MD [address] [address] Consulting Physician Cardiology 11/09/24
--- OUTSIDE RECORDS SUMMARY | 2025-04-26 11:57 | XMS_ITS | Encounter Summary ---
Author Organization [facility] Address [address] [place] [address] Care Team Providers Care Technical Sales Representative Name Role Phone Ellie Ingram NP Unavailable [phone] Rancho Hernandez MD Primary Care Provider [phone] Encounter Details Date Type Department Care Team (Late Contact Info) Description 03/08/2025 Abstract [facility] [address] [place] [id number] Unallocated, [facility] Provider, [address] [place], [place] [id number] Social History Tobacco Use Types Packs/Day Years [...] Visit [facility] [address] [place] [address] Alexis Grace DPM [address] [place] [address] 05/08/2025 10:00 AM EDT [facility] [address] [place] [address] Anamika Gunter NP [address] [facility] [address] [place] [address] documented as of this encounter Visit Diagnoses Not on filedocumented in this encounter Care Teams Technical Sales Representative Relationship Specialty Start Date End Date Rancho Hernandez MD [address] [place] [id number] PCP - General Family Medicine 03/16/25 Ellie Ingram NP [address] [place], [place] [phone] Referring Physician 07/18/24 documented as of this encounter
--- OUTSIDE RECORDS SUMMARY | 2025-04-26 11:57 | XMS_ITS | Patient Health Record ---
Author Organization [employer] Address [address] [place] [address] Care Team Providers Care Cost Control Specialist Name Role Phone Ellie Bartholomew Primary Care Provider Marie Waggoner Unavailable [phone] Rancho Hernandez Unavailable [phone] Dr. Brice العراقي Unavailable [phone] Mone Nuñez Unavailable [phone] Jennifer Aguilar Unavailable [phone] Ellie Worthington Unavailable [phone] Allergies No Known Allergies Results Component Value Reference Range Notes CMP Reviewed date:11/05/2024 04:18:48 PM Interpretation: Performing Lab: Notes/Report: [facility] [address] [place] [address] Original Ordering Provider: ALYSON TORRES GLUCOSE 100 55-199 mg/dL UREA NITROGEN 16 5-21 mg/dL CREATININE 1.1 0.5-1.3 mg/dL CALCIUM 9.4 8.9-11.1 mg/dL SODIUM 139 135-145 mmol/L POTASSIUM 4.5 3.5-5.3 mmol/L CHLORIDE 105 101-111 mmol/L CARBON DIOXIDE 26 21-31 mmol/L ALKALINE PHOSPHATASE 111 21-98 Int._Unit/L BILIRUBIN 0.8 0.0-1.1 mg/dL ALBUMIN 4.3 3.3-5.0 gm/dL PROTEIN 7.1 6.0-7.8 gm/dL ALANINE AMINOTRANSFERASE 18 6-46 Int._Unit/L ASPARTATE AMINOTRANSFERASE 16 5-43 Int._Unit /L UREA NITROGEN/CREATININE 14 10-20 No Units ANION GAP 13 6-16 mEq/L GLOBULIN 2.8 1.4-4.0 gm/dL ALBUMIN/GLOBULIN 1.5 1.1-2.2 Performing Lab see note [facility] unless otherwise specified [address] [place] [address] Lipid Panel Reviewed date:11/05/2024 04:16:49 PM Interpretation: Performing Lab: Notes/Report: [facility] [address] [place] [address] Original Ordering Provider: ALYSON TORRES CHOLESTEROL 160 120-200 mg/dL CHOLESTEROL.IN HDL 36 '>= 60 LOW RISK' '<= 40 HIGH RISK' CHOLESTEROL.IN LDL 115 <=129 mg/dL TRIGLYCERIDE 134 <=149 mg/dL CHOLESTEROL.IN VLDL 27 7-40 mg/dL Performing Lab see note [facility] unless otherwise specified [address] [place] [address] Vit B12 Reviewed date:11/05/2024 04:19:05 PM Interpretation: Performing Lab: Notes/Report: [facility] [address] [place] [address] Original Ordering Provider: ALYSON TORRES COBALAMINS 684 50-1500 pg/mL Performing Lab see note [facility] unless otherwise specified [address] [place] [address] Hemoglobin A1c Reviewed date:01/30/2025 03:33:18 PM Interpretation:5.5 Performing Lab: Notes/Report: 5.5 Hemoglobin A1c 5.5 5 - 7.9 % Magnesium Reviewed date:11/05/2024 04:18:58 PM Interpretation: Performing Lab: Notes/Report: [facility] [address] [place] [address] Original Ordering Provider: ALYSON TORRES MAGNESIUM 2.0 1.3-2.4 mg/dL Performing Lab see note [facility] unless otherwise specified [address] [place] [address] HgbA1c Reviewed date:11/05/2024 04:16:58 PM Interpretation: Performing Lab: Notes/Report: [facility] [address] [place] [address] Original Ordering Provider: ALYSON TORRES HEMOGLOBIN A1C/HEMOGLOBIN.TOTAL 5.5 <=5.9 % Performing Lab see note [facility] unless otherwise specified [address] [place] [address] CBC w/ Auto Diff Reviewed date:11/05/2024 04:18:58 PM Interpretation: Performing Lab: Notes/Report: [facility] [address] [place] [address] Original Ordering Provider: ALYSON TORRES LEUKOCYTES^^CORRECTED FOR NUCLEATED ERYTHROCYTES 10.2 4.0-11.0 E9/L ERYTHROCYTES 4.8 4.3-5.9 E12/L HEMOGLOBIN 15.4 12.0-16.0 gm/dL HEMATOCRIT 44.6 34.0-46.0 % ERYTHROCYTE DISTRIBUTION WIDTH 14.0 10.9-14.2 % ERYTHROCYTE MEAN CORPUSCULAR HEMOGLOBIN 32.3 27.0-34.0 pg ERYTHROCYTE MEAN CORPUSCULAR HEMOGLOBIN CONCENTRATION 34.5 31.4-36.0 gm/dL ERYTHROCYTE MEAN CORPUSCULAR VOLUME 93.6 80.0-100.0 fL PLATELET MEAN VOLUME 7.5 6.4-10.8 fL PLATELETS 383.0 150.0-500.0 E9/L NEUTROPHILS/100 LEUKOCYTES 64.6 36.0-75.0 % LYMPHOCYTES 23.5 14.0-50.0 % MONOCYTES 8.9 4.0-14.0 % EOSINOPHILS/100 LEUKOCYTES 2.5 0.0-8.0 % BASOPHILS 0.5 0.0-2.0 % NEUTROPHILS 6.6 2.0-7.5 E9/L LYMPHOCYTES 2.4 1.0-4.0 E9/L MONOCYTES 0.9 0.2-1.0 E9/L EOSINOPHILS 0.2 0.0-0.5 E9/L BASOPHILS/LEUKOCYTES 0.0 0.0-0.2 E9/L Performing Lab see note [facility] unless otherwise specified [address] [place] [address] PFT pre/post spirometry (Not yet reviewed by provider) Interpretation: Performing Lab: Notes/Report: eGFR Reviewed date:07/03/2024 08:38:11 AM Interpretation: Performing Lab: Notes/Report: [facility] [address] [place] [address] Original Ordering Provider: ALYSON TORRES eGFR 60 >=59 mL/min/1.73 m2 Performing Lab see note [facility] unless otherwise specified [address] [id number] eGFR Reviewed date:11/05/2024 04:18:58 PM Interpretation: Performing Lab: Notes/Report: [facility] [address] [place] [address] Original Ordering Provider: ALYSON TORRES eGFR 60 >=59 mL/min/1.73 m2 Performing Lab see note [facility] unless otherwise specified [address] [id number] eGFR Reviewed date:05/07/2024 01:51:24 PM Interpretation: Performing Lab: Notes/Report: Order added by Discern Expert. [facility] [address] [id number] Original Ordering Provider: ALYSON TORRES eGFR 54 >=59 mL/min/1.73 m2 Performing Lab see note [facility] unless otherwise specified [address] [id number] Hemoglobin A1c Reviewed date:05/03/2024 10:33:25 AM Interpretation:5.4% Performing Lab: Notes/Report: 5.4% Hemoglobin A1c 5.4% 5 - 7.9 % CBC w/ Auto Diff Reviewed date:05/07/2024 01:53:39 PM Interpretation: Performing Lab: Notes/Report: [facility] [address] [id number] Original Ordering Provider: ALYSON TORRES LEUKOCYTES^^CORRECTED FOR NUCLEATED ERYTHROCYTES 8.9 4.0-11.0 E9/L ERYTHROCYTES 4.9 4.3-5.9 E12/L HEMOGLOBIN 15.4 12.0-16.0 gm/dL HEMATOCRIT 45.5 34.0-46.0 % ERYTHROCYTE DISTRIBUTION WIDTH 15.0 10.9-14.2 % ERYTHROCYTE MEAN CORPUSCULAR HEMOGLOBIN 31.4 27.0-34.0 pg ERYTHROCYTE MEAN CORPUSCULAR HEMOGLOBIN CONCENTRATION 33.9 31.4-36.0 gm/dL ERYTHROCYTE MEAN CORPUSCULAR VOLUME 92.5 80.0-100.0 fL PLATELET MEAN VOLUME 7.9 6.4-10.8 fL Platelet 446.0 150.0-500.0 E9/L NEUTROPHILS/100 LEUKOCYTES 60.7 36.0-75.0 % LYMPHOCYTES 27.7 14.0-50.0 % MONOCYTES 7.8 4.0-14.0 % EOSINOPHILS/100 LEUKOCYTES 2.7 0.0-8.0 % BASOPHILS 1.1 0.0-2.0 % NEUTROPHILS 5.4 2.0-7.5 E9/L LYMPHOCYTES 2.5 1.0-4.0 E9/L MONOCYTES 0.7 0.2-1.0 E9/L EOSINOPHILS 0.2 0.0-0.5 E9/L BASOPHILS/LEUKOCYTES 0.1 0.0-0.2 E9/L Performing Lab see note [facility] unless otherwise specified [address] [place] [address] [facility] Reviewed date:05/07/2024 01:52:39 PM Interpretation: Performing Lab: Notes/Report: [facility] [address] [place] [address] Original Ordering Provider: ALYSON TORRES GLUCOSE 103 55-199 mg/dL UREA NITROGEN 11 5-21 mg/dL CREATININE 1.2 0.5-1.3 mg/dL CALCIUM 9.3 8.9-11.1 mg/dL SODIUM 138 135-145 mmol/L POTASSIUM 4.9 3.5-5.3 mmol/L CHLORIDE 103 101-111 mmol/L CARBON DIOXIDE 27 21-31 mmol/L ALKALINE PHOSPHATASE 134 21-98 Int._Unit/L BILIRUBIN 0.4 0.0-1.1 mg/dL ALBUMIN 4.1 3.3-5.0 gm/dL PROTEIN 7.0 6.0-7.8 gm/dL ALANINE AMINOTRANSFERASE 18 6-46 Int._Unit/L ASPARTATE AMINOTRANSFERASE 13 5-43 Int._Unit /L UREA NITROGEN/CREATININE 9 10-20 No Units ANION GAP 13 6-16 mEq/L GLOBULIN 2.9 1.4-4.0 gm/dL ALBUMIN/GLOBULIN 1.4 1.1-2.2 Performing Lab see note [facility] unless otherwise specified [address] [place] [address] Lipid Panel Reviewed date:05/07/2024 01:52:15 PM Interpretation: Performing Lab: Notes/Report: [facility] [address] [place] [address] Original Ordering Provider: ALYSON TORRES CHOLESTEROL 177 120-200 mg/dL CHOLESTEROL.IN HDL 43 '>= 60 LOW RISK' '<= 40 HIGH RISK' CHOLESTEROL.IN LDL 125 <=129 mg/dL TRIGLYCERIDE 165 <=149 mg/dL CHOLESTEROL.IN VLDL 33 7-40 mg/dL Performing Lab see note [facility] unless otherwise specified [address] [place] [address] T4 & TSH Reviewed date:05/07/2024 01:52:00 PM Interpretation: Performing Lab: Notes/Report: [facility] [address] [place] [address] Original Ordering Provider: ALYSON TORRES THYROXINE 9.2 4.6-9.1 microgram/dL THYROTROPIN 1.28 0.34-5.60 mcIU/mL Performing Lab see note [facility] unless otherwise specified [address] [place] [address] Vit B12 Reviewed date:05/07/2024 01:52:50 PM Interpretation: Performing Lab: Notes/Report: [facility] [address] [place] [address] Original Ordering Provider: ALYSON TORRES COBALAMINS 186 50-1500 pg/mL Performing Lab see note [facility] unless otherwise specified [address] [place] [address] CBC w/ Auto Diff Reviewed date:07/02/2024 02:56:35 PM Interpretation: Performing Lab: Notes/Report: [facility] [address] [place] [address] Original Ordering Provider: ALYSON TORRES LEUKOCYTES^^CORRECTED FOR NUCLEATED ERYTHROCYTES 7.9 4.0-11.0 E9/L ERYTHROCYTES 4.6 4.3-5.9 E12/L HEMOGLOBIN 14.4 12.0-16.0 gm/dL HEMATOCRIT 42.5 34.0-46.0 % ERYTHROCYTE DISTRIBUTION WIDTH 14.1 10.9-14.2 % ERYTHROCYTE MEAN CORPUSCULAR HEMOGLOBIN 31.4 27.0-34.0 pg ERYTHROCYTE MEAN CORPUSCULAR HEMOGLOBIN CONCENTRATION 33.9 31.4-36.0 gm/dL ERYTHROCYTE MEAN CORPUSCULAR VOLUME 92.8 80.0-100.0 fL PLATELET MEAN VOLUME 7.6 6.4-10.8 fL Platelet 424.0 150.0-500.0 E9/L NEUTROPHILS/100 LEUKOCYTES 58.7 36.0-75.0 % LYMPHOCYTES 28.9 14.0-50.0 % MONOCYTES 8.9 4.0-14.0 % EOSINOPHILS/100 LEUKOCYTES 2.5 0.0-8.0 % BASOPHILS 1.0 0.0-2.0 % NEUTROPHILS 4.7 2.0-7.5 E9/L LYMPHOCYTES 2.3 1.0-4.0 E9/L MONOCYTES 0.7 0.2-1.0 E9/L EOSINOPHILS 0.2 0.0-0.5 E9/L BASOPHILS/LEUKOCYTES 0.1 0.0-0.2 E9/L Performing Lab see note [facility] - [facility] unless otherwise specified [address] [place] [address] [facility] Reviewed date:07/03/2024 08:38:24 AM Interpretation: Performing Lab: Notes/Report: [facility] [address] [place] [address] Original Ordering Provider: ALYSON TORRES GLUCOSE 85 55-199 mg/dL UREA NITROGEN 13 5-21 mg/dL CREATININE 1.1 0.5-1.3 mg/dL CALCIUM 9.3 8.9-11.1 mg/dL SODIUM 141 135-145 mmol/L POTASSIUM 4.4 3.5-5.3 mmol/L CHLORIDE 108 101-111 mmol/L CARBON DIOXIDE 25 21-31 mmol/L ALKALINE PHOSPHATASE 111 21-98 Int._Unit/L BILIRUBIN 0.4 0.0-1.1 mg/dL ALBUMIN 4.1 3.3-5.0 gm/dL PROTEIN 6.6 6.0-7.8 gm/dL ALANINE AMINOTRANSFERASE 14 6-46 Int._Unit/L ASPARTATE AMINOTRANSFERASE 12 5-43 Int._Unit /L UREA NITROGEN/CREATININE 12 10-20 No Units ANION GAP 12 6-16 mEq/L GLOBULIN 2.5 1.4-4.0 gm/dL ALBUMIN/GLOBULIN 1.6 1.1-2.2 Performing Lab see note [facility] unless otherwise specified [address] [place] [address] HgbA1c Reviewed date:07/03/2024 08:41:43 AM Interpretation: Performing Lab: Notes/Report: [facility] [address] [place] [address] Original Ordering Provider: ALYSON TORRES HEMOGLOBIN A1C/HEMOGLOBIN.TOTAL 5.8 <=5.9 % Performing Lab see note [facility] unless otherwise specified [address] [place] [address] Lipid Panel Reviewed date:07/03/2024 08:38:01 AM Interpretation: Performing Lab: Notes/Report: [facility] [address] [place] [address] Original Ordering Provider: ALYSON TORRES CHOLESTEROL 185 120-200 mg/dL CHOLESTEROL.IN HDL 40 '>= 60 LOW RISK' '<= 40 HIGH RISK' CHOLESTEROL.IN LDL 132 <=129 mg/dL TRIGLYCERIDE 213 <=149 mg/dL CHOLESTEROL.IN VLDL 43 7-40 mg/dL Performing Lab see note [facility] unless otherwise specified [address] [place] [address] T3 Total Reviewed date:07/03/2024 08:37:36 AM Interpretation: Performing Lab: Notes/Report: [facility] [address] [place] [address] Original Ordering Provider: ALYSON TORRES TRIIODOTHYRONINE 94 71-180 ng/dL Performed at: [facility] [id number] PhD Cameron Melara Performing Lab see note [facility] unless otherwise specified [address] [address] T4 & TSH Reviewed date:07/03/2024 08:37:45 AM Interpretation: Performing Lab: Notes/Report: [facility] [address] [place] [address] Original Ordering Provider: ALYSON TORRES THYROXINE 8.2 4.6-9.1 microgram/dL THYROTROPIN 0.98 0.34-5.60 mcIU/mL Performing Lab see note [facility] unless otherwise specified [address] [place] [address] Vit B12 Reviewed date:07/03/2024 08:38:33 AM Interpretation: Performing Lab: Notes/Report: [facility] [address] [place] [address] Original Ordering Provider: ALYSON TORRES COBALAMINS 208 50-1500 pg/mL Performing Lab see note [facility] unless otherwise specified [address] [place] [address] Urinalysis automated Reviewed date:08/11/2024 02:45:26 PM Interpretation: Performing Lab: Notes/Report: Urine-Color yellow Appearance cloudy Specific [place] 1.050 pH 5.0 Glucose 2000+ Protein 30 Occult Blood large Bilirubin neg Urobilinogen,Semi-Qn 0.2 Nitrite, Urine neg Ketones trace WBC Esterase trace Reason For Referral Reason SCHEDULED 07/31 [place] [facility] [place] diagnostics at [facility] as well. SHe would prefer to be seen at [place] location Diagnosis 1 POTS (postural ortho static tachycardia syndrome) (G90.A) Referral Organization [facility] Referring Provider First Name Ellie Referring Provider Last Name Puma Referring Provider Speciality Family Pra ctice Referred Provider Dileep Ceja Referred Provider Specialty Cardiology General Notes Lani Dowling 2023 07:53:53 AM >07/18 re faxed to Referral Priority Routine Reason SCHEDULED 08/09 Pt has imaging at [place] and possible [facility]. 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 Referred Provider Joesph Macedo Referred Provider Specialty Neurology General Notes Lani Dowling 2023 09:53:30 AM >[facility] [phone] Referral Priority Routine Reason *SCHEDULED 10/09 Pt has records at [facility] and lives closest the [place] office *FAXED 10/06 Diagnosis 1 Acute kidney injury (N17.9) Diagnosis 2 Kidney stone (N20.0) Diagnosis [address] [facility] (Z87.442) Referral Organization [facility] Referring Provider First Name Marie Referring Provider Last Name Edilson Referring Provider Speciality Behavioral Health Referred Provider [facility] . 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) Referral Organization [facility] Referring Provider First Name Ellie Referring Provider Last Name Puma Referring Provider [facility] ctice Referred Organization [facility] Referred Provider Rancho Hernandez Referred Address [address] [place] [phone], Referred Provider Specialty Family Pract ice Referral Priority Routine Medications Medication SIG (Take, Route, Frequency, Duration) Notes Start Date End Date Status Ozempic (0.25 or 0.5 MG/DOSE) 2 MG/3ML inject 0.25 mg Subcutaneous once a week; Duration: 28 days 04/18/2025 06/13/2025 Active Fludrocortisone Acetate 0.1 mg TAKE 1 TABLET BY MOUTH DAILY; Duration: 30 Active Pantoprazole Sodium 20 mg TAKE 1 TABLET BY MOUTH ONCE DAILY; Duration: 30 days Active Amitriptyline HCl 25 MG 1 tablet at bedt yesi Orally Once a day; Duration: 30 day(s) 04/18/2025 Active Esgic 50-325-40 MG 1 tablet Orally every 4 hrs As needed Active traMADol HCl 50 MG 1 tablet as needed Orally Once a day; Duration: 30 days 04/18/2025 05/18/2025 Active tiZANidine HCl 4 MG 1 capsule as needed Orally Three times a day; Duration: 30 days 07/13/2025 Active Metoprolol Tartrate 25 MG 1 tablet with food Orally Twice a day; Duration: 30 days Active Cyanocobalamin 1000 MCG/ML 1 mL Injection every 4 week; Duration: 28 days 12/29/2024 11/30/2025 Active Nurtec 75 MG 1 tablet on the tongue and allow to dissolve Orally once a day; Duration: 30 days 08/28/2024 10/22/2025 Not-Taking Jardiance 25 MG 1 tablet Orally Once a day; Duration: 90 days 11/09/2023 06/16/2025 Active Midodrine HCl 2.5 MG 1 tablet Oral twice day; Duration: 30 days Active busPIRone HCl 5 MG 1 tablet Orally Twic e a day; Duration: 30 days 01/25/2025 Not-Taking Ondansetron 8 MG 1 tablet on the tongue and allow to dissolve Orally every 8 hours; Duration: 12 days 10/25/2023 Active Social History Tobacco Use: Social History [...] Status W/U Status Risk Notes Problem Allergic rhinitis (33547133) Allergic rhinitis, unspecified (J30.9) Active confirmed Problem Morbid obesity (971663009) Morbid obesity (E66.01) Active confirmed Problem Neuropathy (392009240) Neuropathy (G62.9) Active confirmed Problem Gastroesophageal reflux disease (938628618) GERD without esophagitis (K21.9) Active confirmed Problem Chronic insomnia (949487814) Chronic insomnia (F51.04) Active confirmed Problem Primary hypertension (99822956) Primary hypertension (I10) Active confirmed Problem Posttraumatic stress disorder (85630879) PTSD (post-traumatic stress disorder) (F43.10) Active confirmed Problem Insomnia disorder related to another mental disorder (56783716) Psychophysiological insomnia (F51.04) Active confirmed Problem Kidney stone (60144419) Kidney stone (N20.0) Active confirmed Problem Osteoarthritis of knee (202394720) Primary osteoarthritis of right knee (M17.11) Active confirmed Problem Migraine without aura (35995201) Migraine without aura and with status migrainosus, not intractable (G43.001) Active confirmed Problem Diabetic renal disease (999190053) Type 2 diabetes mellitus with diabetic nephropathy, 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) Active confirmed Problem Allergic rhinitis (58454772) Non-seasonal allergic rhinitis, unspecified trigger (J30.89) Active confirmed Problem Grief (297896825) Grief (F43.21) Active confirm ed Problem Acquired spondylolisthesis (563503064) Lumbosacral spondylolysis (M43.07) Active confirmed Problem Generalized anxiety disorder (40016386) LACEY (generalized anxiety disorder) (F41.1) Active confirmed Problem Chronic kidney disease stage 3A (382099774) Stage 3a chronic kidney disease (N18.31) Active confirmed Problem Walking disability (874996876) Impaired ambulation (R26.2) Active confirmed Problem Primary osteoarthritis (841872613) Primary osteoarthritis involving multiple joints (M15.9) Active confirmed Problem Postural orthostatic tachycardia syndrome (disorder) (456914105) POTS (postural orthostatic tachycardia syndrome) (G90.A) Active confirmed Problem Lumbosacral spondylosis without myelopathy (24637951) Spondyloarthropathy of lumbar 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) Active confirmed Vital Signs Heart Rate 65 /min 04/18/2025 Temperature 97.5 degrees Fahrenheit 01/30/2025 Respiratory Rate 20 /min 04/18/2025 Oximetry 92 % 04/18/2025 Blood pressure diastolic 79 mm Hg 04/18/2025 Height 62 in 04/18/2025 Blood pressure systolic 120 mm Hg 04/18/2025 Weight 255 lbs 04/18/2025 BMI 46.64 kg/m2 04/18/2025 Encounters Encounter Location Date Provider Diagnosis [facility] [address] [place] [place] [address] 05/07/2024 [place] [address] [place] [address] 05/12[facility] [address] [place] [address] 05/22/2024 [place]ie [place] [address] [place] [address] 06/16/2024 Ellie Puma Stage 3a chronic kidney disease N18.31 [facility] [address] [place] [address] 07/03/2024 [address] [place] [address] [place] [address] 07/18/[address] [place] [address] [place] [address] 07/25/2024 [facility] [address] [place] [address] 07/26/2024 [address] [place] [address] [place] [address] 07/31/2024 Ellie Bartholomew Lumbosacral spondylolysis M43.07 and Stage 3a chronic kidney disease N18.31 [facility] [address] [place] [address] 08/01/2024 Ellie Bartholomew [facility] [address] [facility] [address] 08/07/2024 [address] [place] [address] [place] [address] 08/09/2024 [facility] [address] [place] [address] 08/10/[address] [place] [address] [place] [address] 10/04/2024 Ellie hathawayBannersly [facility] [address] [place] [address] 11/05/2024 Ellie Bartholomew [place] [address] [place] [address] 12/15/2024 Ellie Bartholomew Stage 3a chronic kidney disease N18.31 [facility] [address] [place] [address] 01/01/2025 [facility] [address] [place] [address] 02/26/2025 Marie [facility] [address] [place] [address] 03/07/2025 [facility] [place] [address] [place] [address] 03/14/2025 Rancho Hernandez Lumbosacral spondylo lysis M43.07 [facility] [address] [place] [address] 04/10/2025 Rancho Hernandez [facility] [address] [place] [address] 04/19/2025 Rancho Hernandez [facility] [address] [place] [address] 08/08/2024 Ellie amarisRich Dysuria R30.[address] [facility] [address] [place] [address] 08/25/2024 Marie Slingwine LACEY (generalized anx iety disorder) F41.1 and Chronic nausea R11.[address] [facility] [address] [place] [address] 08/27/2024 [facility] [address] [place] [address] 10/01/2024 Marie Slingwine [facility] [address] [place] [address] 10/01/2024 Marie Slingwine LACEY (generalized anx iety disorder) F41.1 [facility] [address] [place] [address] 10/26/2024 Ellie Bartholomew [facility] [address] [place] [address] 11/20/2024 Ellie Bartholomew Spondyloarthropathy of lumbar spine M47.[address] [facility] [address] [place] [address] 11/20/2024 Ellie Bartholomew [facility] [address] [place] [address] 01/16/2025 Ellie Bartholomew [facility] [address] [place] [address] 01/17/2025 Marie Slingwine LACEY (generalized anx iety disorder) F41.[address] [facility] [address] [place] [address] 01/18/2025 Ellie Bartholomew Lumbosacral spondylolysis M43.[address] [facility] [address] [place] [address] 01/18/2025 Marie Slingwine Psychophysiological insomnia F51.04 [facility] [address] [place] [address] 01/18/2025 Rancho Hernandez Chronic nausea R11.0 and Spondyloarthropathy of lumbar spine M47.816 [facility] [address] [place] [address] 01/19/2025 Marie [place] [facility] [address] [place] [address] 02/13/2025 [facility] [address] [place] [address] 02/13/2025 Marie [place] Chronic nausea R11.0 and Psychophysiological insomnia F51.04 [facility] [address] [place] [address] 03/17/2025 Rancho Hernandez Spondyloarthropathy of lumbar spine M47.[address] [address] 12/29/2024 Elliedavid Bartholomew Lumbosacral spondylolysis M43.07 and Primary osteoarthritis involving multiple joints M15.[address] [address] 01/30/2025 Rancho David Type 2 diabetes erlin itus with diabetic nephropathy, 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 ; Primary hypertension I10 and Lumbosacral spondylolysis M43.[address] [address] 04/18/2025 Rancho David Type 2 diabetes erlin itus with diabetic nephropathy, 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 ; Neuropathic pain M79.2 ; Chronic insomnia F51.04 ; Lumbosacral spondylolysis M43.07 ; POTS (postural orthostatic tachycardia syndrome) G90.A ; Allergic rhinitis, unspecified J30.9 and Spondyloarthropathy of lumbar spine M47.[address] [address] 09/19/2024 Ellie Bartholomew Bronchitis J40 and Grief F43.[address] [address] 07/17/2024 Ellie Bartholomew POTS (postural orthostatic tachycardia syndrome) G90.A ; Spondyloarthropathy of lumbar spine M47.816 ; Neuropathy G62.9 and Impaired ambulation R26.[address] [address] 05/03/2024 Ellie Bartholomew Type 2 diabetes mellitus with diabetic nephropathy, 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 ; LACEY (generalized anxiety disorder) F41.1 ; Primary osteoarthritis involving multiple joints M15.9 ; Stage 3a chronic kidney disease N18.31 ; Lumbosacral spondylolysis M43.07 ; Impaired ambulation R26.2 ; POTS (postural orthostatic tachycardia syndrome) G90.A ; Non-seasonal allergic rhinitis, unspecified trigger J30.89 ; Primary hypertension I10 and Chronic insomnia F51.[address] [address] 06/22/2024 Ellie Bartholomew Stage 3a chronic kidney disease N18.31 ; Type 2 diabetes mellitus with diabetic nephropathy, 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 ; Primary hypertension I10 ; POTS (postural orthostatic tachycardia syndrome) G90.A ; LACEY (generalized anxiety disorder) F41.1 ; PTSD (post-traumatic stress disorder) F43.10 ; Lumbosacral spondylolysis M43.07 ; Spondyloarthropathy of lumbar spine M47.816 ; Neuropathy G62.9 and Chronic nausea R11.[address] [address] 12/07/2024 Elliedavid Bartholomew Lumbosacral spondylolysis M43.07 and Primary osteoarthritis involving multiple joints M15.[address] [address] 07/06/2024 Jennifer hathawayMurrlinh Vitamin B 12 deficie ncy E53.[address] [address] 08/09/2024 Jennifer hathawayMumartin Urgency of urination R39.[address] [address] 01/16/2025 Mone Nuñez 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 [address] [place] [address] 06/21/2024 Ellie Worthington PTSD (post-traumatic stress disorder) F43.10 [facility] [address] [place] [address] 08/10/2024 Ellie Worthington PTSD (post-traumatic stress disorder) F43.10 [facility] [address] [place] [address] 08/17/2024 Ellie Worthington PTSD (post-traumatic stress disorder) F43.10 [facility] [address] [place] [address] 07/20/2024 Ellie Worthington LACEY (generalized anx iety disorder) F41.1 and POTS (postural orthostatic tachycardia syndrome) G90.A [facility] [address] [place] [address] 07/24/2024 Ellie Worthington LACEY (generalized anx iety disorder) F41.1 and PTSD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 in portal at anytime through our [facility] or [facility] if you are interested. 06/22/2024 Neuropathy (ICD-10 - G62.9) 05/03/2024 Chronic insomnia (ICD-10 - F51.04) Take medication as we discussed as needed for insomnia. 06/22/2024 Chronic nausea (ICD-10 - R11.0) 10/27/2024 Exposure to the flu (ICD-10 - Z20.828) Use medication as we discussed 10/27/2024 Non-seasonal allergi c rhinitis, unspecified trigger (ICD-10 - J30.89) Take medication as directed. Use saline nasal spray may help with symptom relief. OTC medications such as Zyrtec, Sarita or Claritin can help with symptoms during the peak of allergy season. Follow up with our office if symptoms persist as a therapy plan may need to be made. 10/27/2024 Lumbosacral spondylolysis (ICD-10 - M43.07) 10/27/2024 Chronic nausea (ICD-10 - R11.0) Use medication as needed 10/27/2024 Migraine without aur a and with status migrainosus, not intractable (ICD-10 - G43.001) Take medications as needed 10/27/2024 Bronchitis (ICD-10 - J40) 05/03/2024 Other Body Mass Index : Care Instructions material was published, Body Mass Index: Care Instructions material was printed 05/15/2024 Other Body Mass Index : Care Instructions material was published, Body Mass Index: Care Instructions material was printed 07/17/2024 Other Body Mass Index : Care Instructions material was published, Body Mass Index: Care Instructions material was printed 07/25/2024 Other follow up in 1 month . Discussed seriousness of taking benzodiazepine medication daily and as needed, risks and benefits discussed including risk of addiction and accidental . Pt verbalized understanding. . High risk medications are drugs that have a heightened risk of causing significant patient harm when they are used in error. High risk medicines include medicines: with a low therapeutic index. that present a high risk when administered by the wrong route or when other system errors occur. Please notify provider for any concerns about your medications. . Hydroxyzine: Made aware that the med will cause sedation, dry mouth, and urinary retention. Do not take before driving a car until you know how the med will affect you. Do not take the medication if . Do not take with other CHEMISTRY RESEARCH ASSISTANT depressants. Call 911 for difficulty breathing. Patient educated about the importance of adequate sleep to your mental health. The bedroom should be kept dark to promote restful sleep. The patient should not use their phone or watch TV while in bed, these behaviors can be stimulating and keep the patient awake. . Informed consent obtained: YES, we discussed the diagnosis/diagnos es, the treatment options, treatment(s) recommended vs. no treatment. We discussed risks and benefits of treatment options, treatment recommendations vs. no treatment. . 12/07/2024 Other Body Mass Index : Care Instructions material was published, Body Mass Index: Care Instructions material was printed 01/16/2025 Other 01/30/2025 Other Body Mass Index : Care Instructions material was published Plan Of Treatment Pending Test Test Name Order Date PFT pre/post spirometry 04/20/2025 Next Appt Details Provider Name:Rancho rueda, 05/16/2025 10:15:00 AM, [address] , [place], [address], Provider Name:Nataliia Monaco, 05/21/2025 10:00:00 AM, [address] [place], [address], Insurance Providers Payer Name Payer Address Payer Phone Subscriber Number Group Number Insured Name Patient Relationship to Insured Coverage Start Date Coverage End Date AETNA MEDICARE ADVANTAGE [address] [place] [phone] [id number] JOSELITO VIDAL Self - patient is the insured 4 MEDICAID SEC TO MCARE ADV [address] [place] [address] [id number] JOSELITO VIDAL Self - patient is the insured 4 Dental Care[employer] [place] [address] [place] [address] [id number] JOSELITO VIDAL Self - patient is the insured 3 4 Dental Wrap [employer] CareSourc e [address] [place] [address] [id number] JOSELITO VIDAL Self - patient is the insured 3 4 Care[place]our[place] [address] [place] [address] [id number] JOSELITO VIDAL Self - patient is the insured 3 4 Wrap [employer] Care[employer]our[employer] e [address] [place] [address] [id number] JOSELITO VIDAL Self - patient is the insured 3 4 BH Care[place]our[place] [address] [place] [address] [id number] JOSELITO VIDAL Self - patient is the insured 3 4 BH Wrap [employer] Care[employer]our[employer] e [address] [place] [address] [id number] JOSELITO VIDAL Self - patient is the insured 3 4 Dental Wrap [employer] th [address] [place] [address] [id number] JOSELITO VIDAL Self - patient is the insured 3 3 Dental Ameri[employer] [place] Medicaid [address] [place] [address] [id number] JOSELITO VIDAL Self - patient is the insured 3 3 MEDICAID SEC TO ESTEFANY ADV [address] [place] [address] [id number] JOSELITO VIDAL Self - patient is the insured 4 Medications Administered Medication Instructions Date of Administration Dosage Notes B-12 injection 07/06/2024 1000 ug DEXAMETHASONE 12/07/2024 10 mg Kenalog 09/02/2023 40 mg TORADOL 09/02/2023 1 mL TORADOL 12/07/2024 60 mg TORADOL 01/30/2025 60 mg Medical (General) History Medical History History ICD Code spondylolithesis with radiculapathy lumbar fracture POTS DM HTN CKD Chronic insomnia F51.04 Surgical History Surgery Date(Month/Year) kidney stone 2024 Hospitalization History Reason Date(Month/Year) kidney stone 2024 Extreme Dizziness - [facility] l 2023 child (x4) 1990, 1993, 2002, 2006 saliva stones at [facility] 2 009
--- OUTSIDE RECORDS SUMMARY | 2025-04-26 11:57 | XMS_ITS | Encounter Summary ---
Author Organization [facility] Address [address] [place] [address] Phone Care Team Providers Care Beef Grader Name Role Phone Juan JoseEllie Pili PUBLIC SAFETY TELECOMMUNICATOR-SEMICONDUCTOR PACKAGES TESTER Primary Care Provider Dileep Ceja MD Unavailable [phone] Encounter Details Date Type Department Care Team (Late Contact Info) Description 07/17/2024 Scanned Document [address] [place] [address] Dileep Ceja MD [address] [place] [address] [address], [address] [place], [place] [phone] Social History Tobacco Use Types Packs/Day Years [...] Description 05/31/2025 1:15 PM EDT Office Visit [facility] Building [address] [place] [address] [address] [place] [address] Dileep Ceja MD [address] [place] [address] [address], [address] [place], [place] [phone] documented as of this encounter Visit Diagnoses Not on filedocumented in this encounter Care Teams Beef Grader Relationship Specialty Start Date End Date Ellie Ingram, PUBLIC SAFETY TELECOMMUNICATOR-SEMICONDUCTOR PACKAGES TESTER [address] [place] [address] PCP - General Family Medicine 07/18/24 Dileep Ceja MD [address] [address] Consulting Physician Cardiology 11/09/24 documented as of this encounter
--- OUTSIDE RECORDS SUMMARY | 2025-04-26 11:57 | XMS_ITS | Clinical Summary ---
Author Organization [employer] Address [id number] [address] [place] [address] Care Team Providers Care Barrel Waterer Name Role Phone Ellie Ingram APRN-REMOTE ENCODING CENTER MANAGER Primary Care Provide r Allergies No known [...] patient regarding the results. Finalized by Ray Badleras MD on 01/01/2023 11:09 AM 1 b [...] 1 b MAMM 1 YR Naima Macedo DIRECTOR RELIGIOUS EDUCATION-LAWN SPRINKLER SERVICER IMG MAMMOGRAPHY ORDERABL ES Final Result * Pap Smear (11/26/2020 10:42 AM EDT) 11/26/2020 10:4 2 AM EDT 11/27/2020 10:43 AM EDT Narrative COPATH - 11/28/2020 2:[address] [facility] [address] [place] [address] Gynecologic Cytology Consultation Patient Name: MARIANA VIDAL : 1970 (Age: 50) Gender: F Taken: 11/26/2020 Reported: 11/28/2020 Physician(s): YAQUELIN DAVIS C.N.M. ([phone]) Copy To: [facility] Rec. #: [id number] Acct: # [id number] Final Cytologic Interpretation ThinPrep Pap Test (Cervical): Satisfactory for evaluation. A transformation zone component is present. NEGATIVE FOR INTRAEPITHELIAL LESION OR MALIGNANCY. [facility]/11/28/2020 Interpretation performed at [facility], [address] [place] [address], License number: [id number]. Electronically Signed Out By JEANNE Rangel(ASCP) Date of Last Menstrual Period: (None Given) Other Clinical Conditions: Z30.42 Encounter for surveillance of injectable contraceptive Depo-Provera Source of Specimen ThinPrep Pap Test (Cervical) Thin Prep Pap (CLUTCH ASSEMBLER) Fee Code(s): G0145 The Pap test is a screening test with an inherent, but low, probability of error. The Pap test is primarily effective for the diagnosis and prevention of squamous cell carcinoma. Regular screening is critical for prevention. ThinPrep liquid-based slides, which meet the Pharmacy Operations Manager criteria for automated screening, have been screened by the ThinPrep Imaging System (as of 05/16/07) along with an additional manual rescreening by a associate accountant and, if indicated, by a pathologist. Yaquelin Davis DIRECTOR RELIGIOUS EDUCATION-CN PATHOLOGY/CYTOLOGY ORD ERABLES Final Result COPATH from Last 3 Months or Most Recently Relevant to Health Maintenance Insurance [place]ICAID [place] AETNA MEDICARE Care Teams Barrel Waterer Relationship Specialty Start Date End Date Ellie Ingram APRN-FNP [facility] [place] [address] PCP - General Family Medicine 09/22/24
--- OUTSIDE RECORDS SUMMARY | 2025-04-26 11:57 | XMS_ITS | Clinical Summary ---
Author Organization [facility] Address [address] [place] [address] Care Team Providers Care Final Assembly And Packing Supervisor Name Role Phone Juan Jose Ellie REGALADO Unavailable [phone] Rancho Hernandez MD Primary Care Provider [phone] Allergies No known active allergies Medications midodrine [...] Type Department Care Team Description 04/19/2025 [facility] [address] [facility] [address] [place] [phone] Unallocated, Rae Wasserman MD 04/06/2025 Results [facility]Up [facility] [address] [place] [address] Alexis Grace DPM ALT, AST 04/04/2025 Telephone [facility] [address] [place] [address] Alexis Grace DPM 03/28/2025 2:30 PM EDT Office Visit [facility] [address] [place] [address] Alexis Grace DPM Onychomycosis (Primary Dx); Right foot pain; Plantar wart; Left foot pain 03/28/2025 Bamboo flowsheet [facility] [address] [place] [address] Alexis Grace DPM 03/28/2025 Travel 03/27/2025 Travel 03/08/2025 Abstract [facility] [address] [place] [address] Unallocated, Rae Wasserman MD from Last 3 [...] EDT Office Visit [facility] [address] [place] [address] Alexis Grace DPJose L [address] [place], [place] [phone] 05/08/2025 10:00 AM EDT Office Visit [facility] [address] [facility] [address] [place] [address] Anamika Gunter, FABRICIO [address] [facility] [[email or web address] [address] [place] [address] Health Maintenance Due Date Last Done Comments [...] Performing Organization Information Site ID: QPT Name: [facility] Address: [address] [place] [address], [address] [place], [place] [id number] Director: Herb Andujar MD us Alexis Grace DPM LAB BLOOD ORDERABLES Final Result Performing Organization Address [facility] Co de Phone Number [facility] * AST (04/05/2025 3:08 PM EDT) AST 18 10 - 35 U/L [facility] Blood Venous blood specimen / Unknown 04/05/2025 3:08 PM EDT 04/05/2025 3:08 PM EDT Narrative Resulting Agency Comment Performing Organization Information Site ID: QPT Name: [facility] Address: [address] [place] [address], [address] [place] [id number] Director: Herb Andujar MD us Alexis Grace DPM LAB BLOOD ORDERABLES Final Result Performing Organization Address [facility]/ZIP Co de Phone Number [facility] from Last 3 Months Insurance MEDICARE AETNA MEDICARE ADVANTAGE MEDICAID [place] Care Teams Final Assembly And Packing Supervisor Relationship Specialty Start Date End Date Rancho Hernnadez MD [address] [place] [address] PCP - General Family Medicine 03/16/25 Ellie Ingram NP [facility] [place] [address] Referring Physician 07/18/24
--- OUTSIDE RECORDS SUMMARY | 2025-04-26 11:57 | XMS_ITS | Encounter Summary ---
Author Organization [facility] Address [id number] [address] [place] [address] Care Team Providers Care Automotive Service Professional Name Role Phone Erasmo Ingramnancy OVERTON-SERVICE OPERATIONS MANAGER Primary Care Provide r Reason for Visit * Reason Comments Med Refill Encounter Details Date Type Department Care Team (Late st Contact Info) Description 02/09/2024 Refill [facility] [address] [place] [address] Naima Macedo, CONSUMER SAFETY INSPECTOR-HORSE SHOW MANAGER [address] [place] [address] Encounter for initial prescription of contraceptive pills [...] documented as of this encounter Care Teams Automotive Service Professional Relationship Specialty Start Date End Date Ellie Ingram APRN-FNP [address] [place] [address] PCP - General Family Medicine 09/22/24 documented as of this encounter
--- OUTSIDE RECORDS SUMMARY | 2025-04-26 11:57 | XMS_ITS | Encounter Summary ---
Author Organization [facility] Address [address] [place] [address] Phone Care Team Providers Care Wall Scraper Name Role Phone Juan JoseEllie Pili ASSISTANT PROJECT ENGINEER-CASING RUNNER Primary Care Provider Dileep Ceja MD Unavailable [phone] Encounter Details Date Type Department Care Team (Late Contact Info) Description 07/17/2024 Scanned Document [address] [place] [address] Dileep Ceja MD [address] [place] [address] [address], [address] [place], [place] [phone] Social History Tobacco Use Types Packs/Day Years [...] Description 05/31/2025 1:15 PM EDT Office Visit [facility] Medical Office Building [address] [place] [address] [address] [place] [address] Dileep Ceja MD [address] [place] [address] [address], [address] [place], [place] [phone] documented as of this encounter Visit Diagnoses Not on filedocumented in this encounter Care Teams Wall Scraper Relationship Specialty Start Date End Date Ellie Ingram, ASSISTANT PROJECT ENGINEER-CASING RUNNER [address] [place] [address] PCP - General Family Medicine 07/18/24 Dileep Ceja MD [address] [address] Consulting Physician Cardiology 11/09/24 documented as of this encounter
--- OUTSIDE RECORDS SUMMARY | 2025-04-26 11:57 | XMS_ITS | Clinical Summary ---
Author Organization [facility] Address [address] [facility], [address] [place] [address] Care Team Providers Care Sales Representative Trainee Name Role Phone Ellie Ingram APRN - [...] 11/11/2016 FIT/FOBT: Average risk 11/11/2016 Fecal-DNA (Cologuard): [place] ge risk 11/11/2016 Sigmoidoscopy/CT colonography 11/11/2016 Pneumococcal [...] to complete this topic Insurance Care Teams Sales Representative Trainee Relationship Specialty Start Date End Date Ellie Ingram APRN - NP [address] [place] [address] PCP - General 03/26/22
--- OUTSIDE RECORDS SUMMARY | 2025-04-26 11:57 | XMS_ITS | Encounter Summary ---
Author Organization [facility] Address [address] [place] [address] Care Team Providers Care Box Truck Washer Name Role Phone Juan Jose Ellie REGALADO Unavailable [phone] Rancho Hernandez MD Primary Care Provider [phone] Encounter Details Date Type Department Care Team (Late st Contact Info) Description 11/10/2023 Orders Only [facility] [address] [place] [address] Ned Wilburn MD [address] [place] [address] Social History Tobacco Use Types Packs/Day Years [...] Visit [facility] [address] [place] [address] Alexis Grace DPM [address] [place] [phone] 05/08/2025 10:00 AM EDT [facility] [address] [place] [address] Anamika Gunter NP [address] [place], [place] [phone] documented as of this encounter Procedures Procedure [...] on filedocumented in this encounter Care Teams Box Truck Washer Relationship Specialty Start Date End Date Rancho Hernandez MD [address] [place] [address] PCP - General Family Medicine 03/16/25 Ellie Ingram NP [address] [place] [address] Referring Physician 07/18/24 documented as of this encounter
--- OUTSIDE RECORDS SUMMARY | 2025-04-26 11:57 | XMS_ITS | Encounter Summary ---
Author Organization [facility] Address [address] [facility] [place] [address] Care Team Providers Care Match Marker Name Role Phone Juan Jose Ellie REGALADO Unavailable [phone] Rancho Hernandez MD Primary Care Provider [phone] Encounter Details Date Type Department Care Team (Late st Contact Info) Description 04/19/2025 Abstract [facility] [address] [place] [address] Unallocated, Noms Provider, [address] [place], [place] [phone] Social History Tobacco Use Types Packs/Day Years [...] Office Visit [facility] [address] [place] [address] Alexis Grace DPM [address] [place], [place] [phone] 05/08/2025 10:00 AM EDT Office Visit [facility] [address] [place] [address] Anamika Gunter NP [address] [place] [address] documented as of this encounter Visit Diagnoses Not on filedocumented in this encounter Care Teams Match Marker Relationship Specialty Start Date End Date Rancho Hernandez MD [address] [place] [address] PCP - General Family Medicine 03/16/25 Ellie Ingram NP [address] [place] [address] Referring Physician 07/18/24 documented as of this encounter
--- OUTSIDE RECORDS SUMMARY | 2025-04-26 11:57 | XMS_ITS | Encounter Summary ---
Author Organization [facility] Address [address] [place] [address] Care Team Providers Care Urogynecology Physician Name Role Phone Ellie Ingram NP Unavailable [phone] Rancho Hernandez MD Primary Care Provider [phone] Encounter Details Date Type Department Care Team (Late st Contact Info) Description 04/06/2025 Results Follow-Up ERYN [facility] Podiatrchandler [address] [place] [phone] Alexis Grace DPM [address], [place] [id number] ALT, AST Social History Tobacco Use Types [...] [facility] [address] [place] [phone] Alexis Grace, DPM [address] [place], [place] [id number] 05/08/2025 10:00 AM EDT [facility] [address] [address] [place] [phone] Anamika Gunter, ACCOUNTING METHODS ANALYST [address] [facility] [address] [place] [address] documented as of this encounter Visit Diagnoses Diagnosis Onychomycosis- Primary Dermatophytosis of nail documented in this encounter Care Teams Urogynecology Physician Relationship Specialty Start Date End Date Rancho Hernandez MD [facility] [place] [address] PCP - General Family Medicine 03/16/25 Ellie Ingram NP [address] [place] [address] Referring Physician 07/18/24 documented as of this encounter
--- NOTE | 2025-04-26 12:00 | XR_ITS ---
The [address] [address] Patient Name: JOSELITO VIDAL MRN: [id number] date: 1970 Sex: F Assigned Patient Location: [facility] Current Patient Location: Accession/Order Number: [id number] Exam Date: 04/26/2025 12:05 Report Date: 04/27/2025 00:37 At the request of: DECLAN ABRAMS NP Procedure: XR cervical spine 5V XR cervical spine 5V 04/26/2025 12:30 PM SIGNS AND SYMPTOMS: ^chronic neck pain PROTOCOLS: Frontal, lateral, and oblique radiographs of the cervical spine COMPARISON: None FINDINGS: The bones are in anatomic alignment. There is preservation of the vertebral body heights. There is mild intervertebral disc height loss at C5-C6 with uncovertebral joint spurring and anterior osteophyte formation. The atlantoaxial joint is within normal limits. There is no fracture or destructive lesion. XR/XR cervical spine 5V IMPRESSION: No fracture or subluxation. There is mild intervertebral disc height loss at C5-C6 with uncovertebral joint spurring and anterior osteophyte formation. Impression dictated by: Dhruv Montalvo M.D. 04/27/2025 12:37 AM Dictation Location: [place] [address] Electronically authenticated by: [id number] Y Date: 04/27/2025 00:37
--- NOTE | 2025-04-26 12:00 | XR_ITS ---
The [place] [address] Patient Name: JOSELITO VIDAL MRN: [id number] date: 1970 Sex: F Assigned Patient Location: [facility] Current Patient Location: Accession/Order Number: [id number] Exam Date: 04/26/2025 12:05 Report Date: 04/27/2025 00:35 At the request of: DECLAN ABRAMS NP Procedure: XR lumbar spine 6V w bending XR lumbar spine 6V w bending 04/26/2025 12:29 PM SIGNS AND SYMPTOMS: ^neurogenic claudication, sacroiliitis ^lumbar spondylosis, spinal stenosis with neurogenic PROTOCOLS: Frontal, lateral, oblique, and flexion-extension views of the lumbar spine COMPARISON: 06/18/2023 FINDINGS: There is 4 mm of anterolisthesis of L4 upon L5. This extends to 10 mm on flexion suspicious for pathologic movement. The bones are otherwise in anatomic alignment. Facet hypertrophy is present greatest at L4-5. There is no fracture or destructive lesion. There is mild disc height loss at T12-L1, L4-5, and L5-S1. The sacrum and sacroiliac joints are normal. XR/XR lumbar spine 6V w bending IMPRESSION: There is 4 mm of anterolisthesis of L4 upon L5. This extends to 10 mm on flexion suspicious for pathologic movement. This is new compared to the previous MRI. Additional degenerative changes are noted as above. Impression dictated by: Dhruv Montalvo M.D. 04/27/2025 12:35 AM Dictation Location: [facility] Electronically authenticated by: [id number] Y Date: 04/27/2025 00:35
--- OUTSIDE RECORDS SUMMARY | 2025-04-26 12:05 | XMS_ITS | CCD ---
Author Organization [facility] Inform ion Partnership [facility] CliniSyor Care Team Providers Care Catshovel Driver Name Role Phone EDIE SINGH Referring Unavailable EDIE SNIGH Primary Care Unavailable Edie Singh Primary Care Provider Edie Singh Unavailable Edie Singh Unavailable Pop Blandon Unavailable Ellie Ingram Unavailable NON STAFF Primary Care Provider UnavailDO Reinaldo Gutierrez Emergency Provider LUCY Ingram Primary Care Provider LUCY Ingram Attending Provider SOBEIDA Ingram-Ruperto Argueta Primary Care Provider SOBEIDA Ingram-C Ellie Attending Provider DO Edie Bolton Emergency Provider RadhagaSusana Jeong Unavailable Danya Carty Unavailable Serene Bustos Unavailable GAUSTO Ellis Attending Provider [phone] ELLIE INGRAM Consulting Unavailable JUAN JOSE, ELLIE [...] Sung Attending Provider BROOKLYNN Carty Referring Provider [phone] MD Dario Olmedo Attending Provider Clive Marino Unavailable LUCY Ingram Primary Care Provider LUCY Ingram Attending Provider [phone] Kera Mccall Unavailable LUCY Ingram Primary Care Provider U DO Dario Espino Attending Provider MD Dario Olmedo Attending Provider [phone] NON STAFF Primary Care Provider Unavailabl e Dario Palacios Admitting Unavailab Dario Faria Attending Unavailab le Ellie Ingram Primary Care Unavailable Dario Olmedo Admitting Unavaila ble HonorioDario browning Attending Unavaila ble NON STAFF Primary Care Unavailable Juan Jose, Ellie Admitting Unavailable Juan Jose, Ellie Attending [...] Provider Primary Care Provi yogi Juan Jose BRANCH ASSOCIATE TELLEREllie Unavailable [phone] Juan Jose DIRECTOR OF INSTRUCTION-MANAGER EMPLOYEE BENEFITS, Ellie Bullitt Primary Care Provider Juan Jose DIRECTOR OF INSTRUCTION - BRANCH ASSOCIATE TELLER, Ellie [facility] Care Provid er Unavailable Primary Care Provider Unavailabl e ELLIE INGRAM Primary Care Physician [phone] ELLIE INGRAM Primary Care Unavailable ELLIE INGRAM [...] NKANSAH-AMANKRA, YESENIA Referring Unavail able JUAN JOSE [facility] Primary [facility] Unavailable JUAN JOSE, ELLIE Attending Unavailable JUAN JOSE, ELLIE Admitting Unavailable JUAN JOSE, [facility] Unavailable NKANSAH-AMANKRA, YESENIA Attending Unavail able JUAN JOSE, [facility] Primary [facility] Unavailable NKANSAH-AMANKRA, YESENIA Admitting Unavail able NKANSAH-AMANKRA, YESENIA Attending Unavail able NKANSAH-AMANKRA, YESENIA Referring Unavail able JUAN JOSE, [facility] Unavailable Juan Jose DIRECTOR OF INSTRUCTION-MANAGER EMPLOYEE BENEFITS, [facility] Primary [facility] Provider Martin Larios MD Unavailable MARTIN LARIOS Referring Unavailab le [facility]UAN JOSEPsychiatric ELLIE Mayberry Primary Care Physician ( [phone] MARTIN LARIOS Attending Unavailab reggie INGRAMPsychiatric MARTIN Albarran Referring Unavailab MARTIN Feliciano Attending Unavailab MARTIN Feliciano Referring Unavailab le JUAN JOSE, [facility] Unavai lable NKANSAH-AMANKRA, YESENIA Admitting Unavail able NKANSAH-AMANKRA, YESENIA Attending Unavail able NKANSAH-AMANKRA, YESENIA Referring Unavail able SOBEIDA INGRAM Admitting Unavai lable JUAN JOSE, SOBEIDA Meyers Attending Unanorii SOBEIDA Berry Primary Care Unavai lable JUAN JOSE, SOBEIDA Meyers Primary Care Mallory Cano Attending Unavailable Rancho Hernandez MD Primary Care Provider [phone] ALEXIS GRACE Attending Unavailable DARIO PALACIOS Attending Unavailable ELLIE INGRAM Referring Unavailable Allergies Allergy Classification Reported Allergen(s) Allergy Type Date of Onset Reaction(s) Facility (4 sources) No Known Medication Allergies; Translations: [No Known Medication Allergies] Propensity to adverse reactions (disorder) [facility] Repository Medications Current Medications Medication Drug Class(es) [...] every four hours as needed for headache ezcyioxwbd-fkjwakuivlbwz-xanworen 50-325 -40 MG tablet Take 1 tablet by mouth every 4 (four) hours if needed for headaches Active acetaminophen 300 mg / codeine phosphate 30 mg oral tablet (14 sources) Opioid Agonist Start: 10-29-2022 take 1 tablet by mouth every twelve hours Acetaminophen-Codeine 300-30 MG 1 tablet as needed Orally twice a day for 30 days Oct, Active [id number] 200 actuat albuterol 0.09 mg/actuat metered dose [...] Ordered Start: 04-06-2022 take 1 capsule by [facility] every twelve hours DULoxetine HCl 60 MG 1 capsule Orally Twice a day for 30 day(s) Mar, Active Start: 04-06-2022 take 1 capsule by [facility] every twelve hours DULoxetine HCl 40 MG 1 capsule Orally Twice a day for 30 day(s) Mar, Active Start: 04-06-2022 take 1 capsule by [facility] every twelve hours DULoxetine HCl 20 MG [...] 1 Start: 12-15-2023 take 1 tablet by [facility] in the morning JARDIANCE 10 mg tablet [...] Active Start: 09-29-2021 take 1 capsule by [facility] every eight hours Gabapentin 300 MG 1 capsule Orally three times a day for 30 day(s) Aug, Active take 1 capsule by [facility] every eight hours gabapentin (Neurontin) 400 mg [...] spasm, # 40 tab(s), Refills(s) 0, Pharmacy: [facility], 157, cm, 10/12/24 13:52:00 EST, Height/Length [...] 07/31/2024 12/17/2024 Discontinued (Med List Cleanup) nystatin [id number] unt/ml oral suspension (1 source) Polyene Antifungal Start: 07-20-2022 take 5 mL by mouth four times daily Nystatin [id number] UNIT/ML 5 ml Mouth/Throat Four times a [...] pain, # 6 tab(s), Refills(s) 0, Pharmacy: [facility], 157, cm, 10/12/24 13:52:00 EST, Height/Length [...] Daily, # 10 cap(s), Refills(s) 0, Pharmacy: [facility], 157, cm, 10/12/24 13:52:00 EST, Height/Length [...] aftercare (2 sources) Polypharmacy ; Translations: [Other equities analyst (current) drug therapy] 08-09-2024 Episodic Other circulatory [...] Results Test Name Value Interpretation Reference Range [facility] 04-06-2025 ALT [Catalytic activity/Vol] 21 U/L Normal 6-29 [facility] Comment on above: Performed By: #### 8 22, 823 #### [facility] [place] [address] Children Teacher: Herb Andujar MD Sarah 04-06-2025 AST [Catalytic activity/Vol] 18 U/L Normal 10-35 [facility] Comment on above: Performed By: #### 8 22, 823 #### [facility] [place] [address] Children Teacher: Herb Andujar MD CT Abdomen[facility]Pel[facility] Abdomen/Pelvis w/o Contrast Exam [...] Transcribed by: GREGG Technologist: ARACELI [place] Ambulatory Visit Summaryon 0 11-14-2024 Ambulatory [...] YESENIA YUSUF MD Where: [facility] [address], [address] [place] [address]- You Need to Schedule the Following Appointments Follow Up with YESENIA YUSUF MD, URL When: Where: You Need to Complete the Following CT Abdomen/Pelvis w/o Contrast, 11/14/24, Routine, Order for future visit, Transport Mode: Ambulatory, Reason: Other (please specify), Reason: Ureteral stone, No, No, Ureteral stone with hydronephrosis, Stone protocol, pp_set_radiology_subspeci alty, Not Required, [facility] Medications What How Much When Instructions Unchanged [...] thank yo (more content not included)... Normal [facility] Office/Clinic Noteon 11-14-2024 Urology Office/Clinic Note Urology Office/Clinic Note Chief Complaint follow up HPI Staff 54 year old female here for follow up to Cystoscopy, right ureteroscopy, right ureteral stent placement 10/19/24 GERRY and KUB done 11/02/24 at [facility] Previous Dx: Ureteral stone with hydronephrosis Patient [...] kidney stone and JOSE. Denies hx of VA or CVA. Not on anticoagulation. BBSQ 13 (7) Portions of this record may have been created with voice recognition artificial intelligence software, specifically [employer], [employer] and or [employer]. Substitutions may have occurred due to the inherent limitations of voice recognition and artificial intelligence software. 1. Ureteral stone with hydronephrosis (N13.2: Hydronephrosis with renal and ureteral calculous obstruction) Pt presented to [facility] ER 09/23/24 due to R sided flank [...] stent at home without difficulty. KUB 11/02/24 [facility] - An approximately 4 x 2 mm calculus overlying the left side of the distal sacrum may be within the distal left ureter or urinary bladder. Renal US 11/02/24 [facility] - The study is mild to moderately limited by the patient's body habitus. Neg for stones or hydro. Discussed KUB findings with pt. Asymptomatic. Denies passage of stone since having imaging done. Discussed ordering CT AP wo con to better evaluate stone noted on KUB. Pt agrees with plan. -CT AP wo con (stone protocol) now at [facility] -F/up in [address] results [...] Additional Instructions: 2 months (CT now at [facility]) Patient Education Dietary Guidelines to Help Prevent [...] 1 tab (more content not included)... Normal [facility] Comment on above: Result Comment: Elec tronically [...] Transcribed by: GREGG Technologist: JESUS ALBERTO Lopez [facility] XR Abdomen 1 Viewon 11-04-19 XR Abdomen [...] MD Transcribed by: GREGG Technologist: NAWAF, Jessica [facility] CBC w/ Auto Diffon 5 Basophils/100 WBC (Bld) 0.5 % Normal 0.0-2.0 [facility] Comment on above: Performed By: #### 2 [id number] #### [facility] [address] [place] [address] Basophils/Leukocytes Auto (Bld) [Pure # fraction] 0.0 E9/L Normal 0.0-0.2 [facility] Comment on above: Performed By: #### 2 [id number] #### [facility] [address] [place] [address] Eosinophils (Bld) [#/Vol] 0.2 E9/L Normal 0.0-0.5 [facility] Comment on above: Performed By: #### 2 [id number] #### [facility] [address] [place] [address] Eosinophils/100 WBC (Bld) 2.5 % Normal 0.0-8.0 [facility] Comment on above: Performed By: #### 2 137443 #### [facility] [address] [place] [address] Erythrocyte distribution width (RBC) [Ratio] 14.0 % Normal 10.9-14.2 [facility] Comment on above: Performed By: #### 2 [id number] #### [facility] [address] [place] [address] Hematocrit (Bld) [Volume fraction] 44.6 % Normal 34.0-46.0 [facility] Comment on above: Performed By: #### 2 [id number] #### [facility] [address] [place] [address] Hemoglobin (Bld) [Mass/Vol] 15.4 g/dL Normal 12.0-16.0 [facility] Comment on above: Performed By: #### 2 280777 #### [facility] [address] [place] [address] Lymphocytes (Bld) [#/Vol] 2.4 E9/L Normal 1.0-4.0 [facility] Comment on above: Performed By: #### 2 518846 #### [facility] [address] [place] [address] Lymphocytes/100 WBC (Bld) 23.5 % Normal 14.0-50.0 [facility] Comment on above: Performed By: #### 2 474970 #### [facility] [address] [place] [address] MCH (RBC) [Entitic mass] 32.3 pg Normal 27.0-34.0 [facility] Comment on above: Performed By: #### 2 417926 #### [facility] [address] [place] [address] MCHC (RBC) [Mass/Vol] 34.5 g/dL Normal 31.4-36.0 [facility] Comment on above: Performed By: #### 2 481470 #### [facility] [address] [place] [address] MCV (RBC) [Entitic vol] 93.6 fL Normal 80.0-100.0 [facility] Comment on above: Performed By: #### 2 672684 #### [facility] [address] [place] [address] Monocytes (Bld) [#/Vol] 0.9 E9/L Normal 0.2-1.0 [facility] Comment on above: Performed By: #### 2 962449 #### [facility] [address] [place] [address] Neutrophils (Bld) [#/Vol] 6.6 E9/L Normal 2.0-7.5 [facility] Comment on above: Performed By: #### 2 983914 #### [facility] [address] [place] [address] Neutrophils/100 WBC (Bld) 64.6 % Normal 36.0-75.0 [facility] Comment on above: Performed By: #### 2 133258 #### [facility] [address] [place] [address] Platelet mean volume (Bld) [Entitic vol] 7.5 fL Normal 6.4-10.8 [facility] Comment on above: Performed By: #### 2 816005 #### [facility] [address] [place] [address] Platelets (Bld) [#/Vol] 383.0 E9/L Normal 150.0-500. 0 [facility] Comment on above: Performed By: #### 2 989222 #### [facility] [address] [place] [address] RBC (Bld) [#/Vol] 4.8 E12/L Normal 4.3-5.9 [facility] Comment on above: Performed By: #### 2 127635 #### [facility] [address] [place] [address] WBC corrected for nucl RBC Auto (Bld) [#/Vol] 10.2 E9/L Normal 4.0-11.0 [facility] Comment on above: Performed By: #### 2 945875 #### [facility] [address] [place] [address] CMPon 11-02-2024 Albumin [Mass/Vol] 4.3 g/dL Normal 3.3-5.0 [facility] Comment on above: Performed By: #### 2 707499 #### [facility] [address] [place] [address] Albumin/Globulin (S) [Mass conc ratio] 1.5 Normal 1.1-2.2 [facility] Comment on above: Performed By: #### 2 373674 #### [facility] [address] [place] [address] ALP [Catalytic activity/Vol] 111 Int._Unit/L High 21-98 [facility] Comment on above: Performed By: #### 2 793294 #### [facility] [address] [place] [address] ALT No additional P-5'-P [Catalytic activity/Vol] 18 Int._Unit/L Normal 6-46 [facility] Comment on above: Performed By: #### 2 297443 #### [facility] [address] [place] [address] Anion gap [Moles/Vol] 13 mmol/L Normal 6-16 [facility] Comment on above: Performed By: #### 2 539014 #### [facility] [address] [place] [address] AST [Catalytic activity/Vol] 16 Int._Unit/L Normal 5-43 [facility] Comment on above: Performed By: #### 2 690411 #### [facility] [address] [place] [address] Bilirubin [Mass/Vol] 0.8 mg/dL Normal 0.0-1.1 [facility] Comment on above: Performed By: #### 2 443327 #### [facility] [address] [place] [address] Calcium [Mass/Vol] 9.4 mg/dL Normal 8.9-11.1 [facility] Comment on above: Performed By: #### 2 870494 #### [facility] [address] [place] [address] Chloride [Moles/Vol] 105 mmol/L Normal 101-111 [facility] Comment on above: Performed By: #### 2 751199 #### [facility] [address] [place] [address] CO2 [Moles/Vol] 26 mmol/L Normal 21-31 [facility] Comment on above: Performed By: #### 2 306671 #### [facility] [address] [place] [address] Creatinine [Mass/Vol] 1.1 mg/dL Normal 0.5-1.3 [facility] Comment on above: Performed By: #### 2 804325 #### [facility] [address] [place] [address] Globulin (S) [Mass/Vol] 2.8 g/dL Normal 1.4-4.0 [facility] Comment on above: Performed By: #### 2 552258 #### [facility] [address] [place] [address] Glucose [Mass/Vol] 100 mg/dL Normal 55-199 [facility] Comment on above: Performed By: #### 2 842903 #### [facility] [address] [place] [address] Potassium [Moles/Vol] 4.5 mmol/L Normal 3.5-5.3 [facility] Comment on above: Performed By: #### 2 740579 #### [facility] [address] [place] [address] Protein [Mass/Vol] 7.1 g/dL Normal 6.0-7.8 [facility] Comment on above: Performed By: #### 2 383085 #### [facility] [address] [place] [address] Sodium [Moles/Vol] 139 mmol/L Normal 135-145 [facility] Comment on above: Performed By: #### 2 416251 #### [facility] [address] [place] [address] Urea nitrogen [Mass/Vol] 16 mg/dL Normal 5-21 [facility] Comment on above: Performed By: #### 2 338816 #### [facility] [address] [place] [address] Urea nitrogen/Creatinine [Mass ratio] 14 No Units Normal 10-20 [facility] Comment on above: Performed By: #### 2 822050 #### [facility] [address] [place] [address] KheG2uad 11-02-2024 HbA1c (Bld) [Mass fraction] 5.5 % Normal <=5.9 [facility] Comment on above: Performed By: #### 7 [id number] #### [facility] [address] [place] [address] Lipid Panelon 11-02-2024 Cholesterol [Mass/Vol] 160 mg/dL Normal 120-200 [facility] Comment on above: Performed By: #### 2 277914 #### [facility] [address] [place] [address] Cholesterol in HDL [Mass/Vol] 36 mg/dL Invalid Interpretation Code [facility] Comment on above: Result Comment: '>= 60 LOW RISK' '<= 40 HIGH RISK' Performed By: #### 2 813413 #### [facility] [address] [place] [address] Cholesterol in LDL [Mass/Vol] 115 mg/dL Normal <=129 [facility] Comment on above: Performed By: #### 2 773020 #### [facility] [address] [place] [address] Cholesterol in VLDL [Mass/Vol] 27 mg/dL Normal 7-40 [facility] Comment on above: Performed By: #### 2 358579 #### [facility] [address] [place] [address] Triglyceride [Mass/Vol] 134 mg/dL Normal <=149 [facility] Comment on above: Performed By: #### 2 794739 #### [facility] [address] [place] [address] Magnesiumon 11-02-2024 Magnesium [Mass/Vol] 2.0 mg/dL Normal 1.3-2.4 [facility] Comment on above: Performed By: #### 2 015774 #### [facility] [address] [place] [address] Vit B12on 11-02-2024 Cobalamin (Vitamin B12) [Mass/Vol] 684 pg/mL Normal 50-1500 [facility] Comment on above: Performed By: #### 2 564966 #### [facility] [address] [facility] [place] [address] eGFRon 11-02-2024 eGFR 60 mL/min/1.73 m2 Normal >=59 [facility] Comment on above: Performed By: #### 1 [id number] #### [place] [facility] [address] [place] [address] Main OR Intraoperative Recor don 10-23-2024 Main OR Intraoperative Record Main OR Intraoperative Record IntraOp Document Type FT Summary Primary Physician: YESENIA YUSUF MD Finalized Date/Time: 10/23/24 12:38:57 Pt. Name: YOUNG JOSELITO /Sex: 1970 Female Med Rec #: [id number] Physician: YESENIA YUSUF MD Financial #: [id number] Pt. Type: A Room/Bed: [place] [address] Admit/Disch: 10/19/24 08:59:52 - 10/19/24 14:50:00 Institution: [...] Perez CRNA, MD, Regina Walker Role Performed WOOD GETTER Surgeon - Primary Sports Book Server - Primary Time In 10/19/24 12:22:00 10/19/24 [...] Ibrahim CST(R)Kassandra Role Performed Scrub - Primary Drier Belt Conveyor Time In 10/19/24 12:22:00 10/19/24 12:25:00 Time Out 10/19/24 12:44:00 10/19/24 12:44:00 Procedure CYSTOSCOPY W/ HOMIUM CYSTOSCOPY W/ HOMIUM LASER(Right), LASER(Right), CYSTOSCOPY RETROGRADE CYSTOSCOPY RETROGRADE STENT INSERTION(Right) STENT INSERTION(Right) Comments Last Modified By: Regina Walker Kelsie E 10/19/24 12:56:16 10/19/24 12:56:16 General Comments: MARY FULTON, KENNEDY SALAZAR AND SLOT AMBASSADOR, IN ATTENDANCE.JOSE LAMBERT . Perioperative Protocols FT [...] to preve (more content not included)... Normal [facility] CHEMISTRYOrdered By: Lab ROP User on 10-19-2024 Glucose [Mass/Vol] 101 mg/dL High 55 - 99 mg/dL [facility] POC Subsection Comment on above: Result Comment: Yana parsons RN/ POC Username BEBO GOODRICH Invalid Interpretation Code [facility] POC Subsection Sodium [Moles/Vol] [id number] mmol/L Invalid Interpretation Code [facility] POC Subsection Sodium [Moles/Vol] [id number] mmol/L Invalid Interpretation Code [facility] POC Subsection Capillary Glucose POCon 10-01 Glucose [Mass/Vol] 101 mg/dL High 55-99 [facility] Comment on above: Result Comment: Yana jaqueline RN/ Performed By: #### 2 [id number] ####[facility] [id number] [place] [address] Discharge Instructionson Discharge Instructions Discharge Instruc tions [...] Follow-Up Appointments Wednesday 10:15 AM EST With: Obdluio Matamoros DO Where: [facility] New Follow Up Appointments after Discharge Follow Up with YESENIA YUSUF When: Comments: 6 WKS WITH GERRY AGUIAR Where: [address] [place] [phone] Business (1) Medications What How Much When Instructions Next Dose New hyoscyamine (Levsin 0.125 mg SL Tab) 1 Tablets By Mouth 4 times a day as needed for for spasm Pickup at [facility] New oxycodone (Roxicodone 5 mg Tab) 1 Tablets By Mouth Every 6 hours as needed for for pain Pickup at [facility] New tamsulosin (Flomax 0.4 mg Cap) 1 Capsules By Mouth Every day Pickup at [facility] Unchanged APAP/ butalbital/ caffeine (Esgic 325 [...] Tablets By Mouth Every day Pharmacy Information [facility]: [address] [place], [place] [id number] [phone] Devices Implanted/Removed This Visit Notice: You have devices implanted this visit that may not be MRI compatible. Implanted CYSTOSCOPY W/ HOMIUM LASER Ureter R BENAVIDES URETERAL STENT CASCADE 6FR 10/19/2024 [facility] [place], [place] Dr. Bradford Hagen Post-operative Instructions for [...] not to (more content not included)... Normal [facility] Comment on above: Result Comment: Elec tronically Signed By: Mily Singh\.br\Date and Time Signed: 10/19/24 13:38 EST Inpatient Patient Summaryon 10-19-2024 Inpatient Patient Summary Inpatient Patient Summary [place] [id number] [facility] Clinical Discharge Instructions PERSON INFORMATION Name: JOSELITO [facility] Admitting Physician: YESENIA YUSUF MD Attending Physician: YESENIA YUSUF MD PCP: ELLIE INGRAM CNP Discharge Diagnosis: Comment: PATIENT EDUCATION INFORMATION Instructions: Medication Leaflets: Follow up: With: Address: When: YESENIA YUSUF [address] [place] [address] [phone] Business (1) Comments: 6 WKS WITH GERRY AGUIAR PRIOR Type Location Start [facility] Surgery [facility] 10/19/2024 1:00 PM 10/19/2024 1:30 PM Confirmed Pain Management - New (FT) .[facility] [place] 10/23/2024 10:15 AM 10/23/2024 10:45 AM Confirmed MEDICATION LIST New Medications [facility], [address] [place], [place] [id number], [phone] hyoscyamine (Levsin 0.125 mg SL Tab) 1 [...] Tablets By Mouth every day. Comment: Normal [facility] Main OR PACU I Recordon 10-01 Main OR PACU I Record Main OR PACU I Rec ord PACU Phase I Document Type FT Summary Primary Physician: YESENIA YUSUF MD Finalized Date/Time: 10/19/24 13:30:11 Pt. Name: JOSELITO VIDAL /Sex: 1970 Female Med Rec #: [id number] Physician: YESENIA YUSUF MD Financial #: [id number] Pt. Type: A Room/Bed: [place] [address] Admit/Disch: 10/19/24 08:59:52 - Institution: Case Times [...] 13:30 Suki Mcbride RN 10/19/24 13:30 Normal [facility] Main OR PACU II Recordon Main OR PACU II Record Main OR PACU II R ecord PACU Phase II Document Type FT Summary Primary Physician: YESENIA YUSUF MD Finalized Date/Time: 10/19/24 14:59:43 Pt. Name: JOSELITO VIDAL/Sex: 1970 Female Med Rec #: [id number] Physician: YESENIA YUSUF MD Financial #: [id number] Pt. Type: A Room/Bed: [place] [address] Admit/Disch: 10/19/24 08:59:52 - Institution: Case Times [...] Signed By: Mily Singh 10/19/24 14:59 Normal [facility] Operative Reporton Operative Report Operative Report Patient: [...] in the room agreed. A well-lubricated 22 [place] scopic sheath with 30 lens was sent [...] renal ultrasound prior to office appointment. Normal [facility] Comment on above: Result Comment: Elec tronically Signed By: YESENIA YUSUF MD\.br\Date and Time Signed: 10/19/24 13:47 EST Outpatient Surgery Discharge Instructionon 10-19-2024 Outpatient Surgery Discharge Instruction Outpatient Surgery Discharge Instruction [place] [id number] Patient Discharge Instructions PERSON INFORMATION Name: JOSELITO [...] Date Follow up: With: Address: [facility] [address] [place] [phone] Business (1) Comments: 6 WKS WITH GERRY AGUIAR Type Location Start [facility] Surgery [facility] Surgical Services 10/19/2024 1:00 PM 10/19/2024 1:30 PM Confirmed Pain Management - [facility] () FTJose Mgmt Jean-Claude 10/23/2024 10:15 AM [...] to serve you. Thank you for choosing [facility] HERE ARE THE MEDICATION CHANGES THAT OCCURRED DURING YOUR HOSPITAL STAY New Medications [facility], [address] [place], [place] [id number], [phone] hyoscyamine (Levsin 0.125 mg SL Tab) 1 [...] day. PATIENT EDUCATION INFORMATION Instructions: Medication Leaflets: [facility] Patient Education - Texton 0 10-19-2024 Patient Education - Text Patient Education - Text [facility] XR Chest 2 Viewson XR Chest [...] Meza MD Transcribed by: GREGG Technologist: ADAM [facility] BMPon 10-12-2024 Anion gap [Moles/Vol] 10 mmol/L Normal 6-16 [facility] Comment on above: Performed By: #### 2 [id number] #### [facility] [address] [place] [address] Calcium [Mass/Vol] 8.6 mg/dL Low 8.9-11.1 [facility] Comment on above: Performed By: #### 2 [id number] #### [facility] [address] [place] [address] Chloride [Moles/Vol] 107 mmol/L Normal 101-111 [facility] Comment on above: Performed By: #### 2 [id number] #### [facility] [address] [place] [address] CO2 [Moles/Vol] 27 mmol/L Normal 21-31 [facility] Comment on above: Performed By: #### 2 [id number] #### [facility] [address] [place] [address] Creatinine [Mass/Vol] 0.9 mg/dL Normal 0.5-1.3 [facility] Comment on above: Performed By: #### 2 [id number] #### [facility] [address] [place] [address] Glucose [Mass/Vol] 73 mg/dL Normal 55-199 [facility] Comment on above: Performed By: #### 2 [id number] #### [facility] [address] [place] [address] Potassium [Moles/Vol] 4.3 mmol/L Normal 3.5-5.3 [facility] Comment on above: Performed By: #### 2 843170 #### [facility] [address] [place] [address] Sodium [Moles/Vol] 140 mmol/L Normal 135-145 [facility] Comment on above: Performed By: #### 2 [id number] #### [facility] [address] [place] [address] Urea nitrogen [Mass/Vol] 10 mg/dL Normal 5-21 [facility] Comment on above: Performed By: #### 2 [id number] #### [facility] [address] [place] [address] Urea nitrogen/Creatinine [Mass ratio] 11 No Units Normal 10-20 [facility] Comment on above: Performed By: #### 2 [id number] #### [facility] [address] [place] [address] CBC w/ Auto Diffon 10-12- 5 Basophils/100 WBC (Bld) 0.6 % Normal 0.0-2.0 [facility] Comment on above: Performed By: #### 2 [id number] #### [facility] [address] [place] [address] Basophils/Leukocytes Auto (Bld) [Pure # fraction] 0.0 E9/L Normal 0.0-0.2 [facility] Comment on above: Performed By: #### 2 [id number] #### [facility] [address] [place] [address] Eosinophils (Bld) [#/Vol] 0.2 E9/L Normal 0.0-0.5 [facility] Comment on above: Performed By: #### 2 953103 #### [facility] [address] [place] [address] Eosinophils/100 WBC (Bld) 2.8 % Normal 0.0-8.0 [facility] Comment on above: Performed By: #### 2 [id number] #### [facility] [address] [place] [address] Erythrocyte distribution width (RBC) [Ratio] 14.7 % High 10.9-14.2 [facility] Comment on above: Performed By: #### 2 [id number] #### [facility] [address] [place] [address] Hematocrit (Bld) [Volume fraction] 44.4 % Normal 34.0-46.0 [facility] Comment on above: Performed By: #### 2 000707 #### [facility] [address] [place] [address] Hemoglobin (Bld) [Mass/Vol] 14.9 g/dL Normal 12.0-16.0 [facility] Comment on above: Performed By: #### 2 855547 #### [facility] [address] [place] [address] Lymphocytes (Bld) [#/Vol] 2.2 E9/L Normal 1.0-4.0 [facility] Comment on above: Performed By: #### 2 872149 #### [facility] [address] [place] [address] Lymphocytes/100 WBC (Bld) 29.1 % Normal 14.0-50.0 [facility] Comment on above: Performed By: #### 2 [id number] #### [facility] [address] [place] [address] MCH (RBC) [Entitic mass] 31.6 pg Normal 27.0-34.0 [facility] Comment on above: Performed By: #### 2 084408 #### [facility] [address] [place] [address] MCHC (RBC) [Mass/Vol] 33.5 g/dL Normal 31.4-36.0 [facility] Comment on above: Performed By: #### 2 078504 #### [facility] [address] [place] [address] MCV (RBC) [Entitic vol] 94.3 fL Normal 80.0-100.0 [facility] Comment on above: Performed By: #### 2 206235 #### [facility] [address] [place] [address] Monocytes (Bld) [#/Vol] 0.7 E9/L Normal 0.2-1.0 [facility] Comment on above: Performed By: #### 2 731297 #### [facility] [address] [place] [address] Neutrophils (Bld) [#/Vol] 4.4 E9/L Normal 2.0-7.5 [facility] Comment on above: Performed By: #### 2 763808 #### [facility] [address] [place] [address] Neutrophils/100 WBC (Bld) 58.8 % Normal 36.0-75.0 [facility] Comment on above: Performed By: #### 2 [id number] #### [facility] [address] [place] [address] Platelet 359.0 E9/L Normal 150.0-500. 0 [facility] Comment on above: Performed By: #### 2 198361 #### [facility] [address] [place] [address] Platelet mean volume (Bld) [Entitic vol] 7.7 fL Normal 6.4-10.8 [facility] Comment on above: Performed By: #### 2 [id number] #### [facility] [address] [place] [address] RBC (Bld) [#/Vol] 4.7 E12/L Normal 4.3-5.9 [facility] Comment on above: Performed By: #### 2 043153 #### [facility] [address] [place] [address] WBC corrected for nucl RBC Auto (Bld) [#/Vol] 7.5 E9/L Normal 4.0-11.0 [facility] Comment on above: Performed By: #### 2 [id number] #### [facility] [address] [place] [address] CHEMISTRYOrdered By: SYSTEM SYSTEM on 10-12-2024 Anion [...] 33.5 s Normal 25.1 - 36.5 second(s) [facility] Comment on above: Interpretive Data: Juan Manuel mackey 15 days - 4 weeks 1 - [...] the same coagulation reagent and instrumentation as [facility]. Currently there are no coagulation studies available worldwide for children to 14 days, and no normal ranges. Heparin therapeutic range (represented by Anti-Factor Xa activity of 0.2 - 0.4 U/mL) corresponds to PTT of 56.6 - 109.0 sec. INR Coag (PPP) [Relative time] 1.03 {INR} Invalid Interpretation Code [facility] Comment on above: Interpretive Data: I NR results are specifically intended to assess patients stabilized on long-term Anticoagulation therapy suggested INR s Less Intensive Anticoagulation 2.0 3.0 Conventional Range 3.0 4.5 PT Coag (PPP) [Time] 11.5 s Normal 9.4 - 1 2.5 second(s) [facility] Comment on above: Interpretive Data: [...] the same coagulation reagent and instrumentation as [facility] Currently there are no coagulation studies available [...] Coag (PPP) [Time] 33.5 second(s) Normal 25.1-36.5 [facility] Comment on above: Result Comment: Para meter [...] the same coagulation reagent and instrumentation as [facility]. Currently there are no coagulation studies available worldwide for children to 14 days, and no normal ranges. Heparin therapeutic range (represented by Anti-Factor Xa activity of 0.2 - 0.4 U/mL) corresponds to PTT of 56.6 - 109.0 sec. Performed By: #### 1 [id number] #### [facility] [address] [place] [address] INR Coag (PPP) [Relative time] 1.03 {INR} Invalid Interpretation Code [facility] Comment on above: Result Comment: INR results are specifically intended to assess patients stabilized on long-term Anticoagulation therapy suggested INR???s ???Less Intensive Anticoagulation??? 2.0 ??? 3.0 Conventional Range 3.0 ??? 4.5 Performed By: #### 1 [id number] #### [facility] [address] [place] [address] PT Coag (PPP) [Time] 11.5 second(s) Normal 9.4-12.5 [facility] Comment on above: Result Comment: 15 d [...] the same coagulation reagent and instrumentation as [facility]. Currently there are no coagulation studies available worldwide for children to 14 days, and no normal ranges. Performed By: #### 1 [id number] #### [facility] [address] [place] [address] eGFRon 10-12-2024 eGFR 76 mL/min/1.73 m2 Normal >=59 [facility] Comment on above: Performed By: #### 1 [id number] #### [facility] [address] [place] [address] Ambulatory Visit Summaryon 0 10-09-2024 Ambulatory Visit [...] a hea (more content not included)... Normal [facility] Provider Letteron 10-09-2024 Provider Letter Provider Letter October 09, 2024 JOSELITO VIDAL [place] [address] : 1970 To Whom It May Concern, Please excuse Blank Niño (caregiver for above patient) from work. Date of Illness: From: 10/19/24 To: 10/20/24 May Return to Work On: 10/20/24 Sincerely, Dr Yesenia Yusuf MD [facility] Urology Office/Clinic Noteon 10-09-2024 Urology Office/Clinic Note Urology Office/Clinic Note HPI Staff 53 year old female new patient here for follow up to [place] [facility] 09/23/24 due to ureteral stone CT [...] kidney stone and JOSE. Denies hx of VA or CVA. Not on anticoagulation. BBSQ 7 Portions of this record may have been created with voice recognition artificial intelligence software, specifically [employer], [employer] and or [employer]. Substitutions may have occurred due to the inherent limitations of voice recognition and artificial intelligence software. 1. Ureteral stone with hydronephrosis (N13.2: Hydronephrosis with renal and ureteral calculous obstruction) Pt presented to [facility] 09/23/24 due to R sided flank [...] of auton (more content not included)... Normal [facility] Comment on above: Result Comment: Elec tronically Signed By: YESENIA YUSUF MD\.br\Date and Time Signed: 10/09/24 12:01 EST\.br\Electronically Co-Signed By: Suly Burrell\.br\Date and Time Co-Signed: 10/09/24 11:42 EST ECG 12 lead (Clinic Performe d)on 07-31-2024 NSR no ischemia [facility] Work Phone: T3 Totalon 06-24-2024 T3 [Mass/Vol] 94 ng/dL Invalid Interpretation Code [id number] [facility] Comment on above: Result Comment: Perf ormed at: [facility] [address] [id number] PhD Cameron Melara Performed By: #### 1 [id number] #### [facility] [address] [place] [address] CBC w/ Auto Diffon 10-25-202 4 Basophils/100 WBC (Bld) 1.0 % Normal 0.0-2.0 [facility] Comment on above: Performed By: #### 2 [id number] #### [facility] [address] [place] [address] Basophils/Leukocytes Auto (Bld) [Pure # fraction] 0.1 E9/L Normal 0.0-0.2 [facility] Comment on above: Performed By: #### 2 [id number] #### [facility] [address] [place] [address] Eosinophils (Bld) [#/Vol] 0.2 E9/L Normal 0.0-0.5 [facility] Comment on above: Performed By: #### 2 [id number] #### [facility] [address] [place] [address] Eosinophils/100 WBC (Bld) 2.5 % Normal 0.0-8.0 [facility] Comment on above: Performed By: #### 2 [id number] #### [facility] [address] [place] [address] Erythrocyte distribution width (RBC) [Ratio] 14.1 % Normal 10.9-14.2 [facility] Comment on above: Performed By: #### 2 390246 #### [facility] [address] [place] [address] Hematocrit (Bld) [Volume fraction] 42.5 % Normal 34.0-46.0 [facility] Comment on above: Performed By: #### 2 666103 #### [facility] [address] [place] [address] Hemoglobin (Bld) [Mass/Vol] 14.4 g/dL Normal 12.0-16.0 [facility] Comment on above: Performed By: #### 2 313257 #### [facility] [address] [place] [address] Lymphocytes (Bld) [#/Vol] 2.3 E9/L Normal 1.0-4.0 [facility] Comment on above: Performed By: #### 2 683757 #### [facility] [address] [place] [address] Lymphocytes/100 WBC (Bld) 28.9 % Normal 14.0-50.0 [facility] Comment on above: Performed By: #### 2 [id number] #### [facility] [address] [place] [address] MCH (RBC) [Entitic mass] 31.4 pg Normal 27.0-34.0 [facility] Comment on above: Performed By: #### 2 [id number] #### [facility] [address] [place] [address] MCHC (RBC) [Mass/Vol] 33.9 g/dL Normal 31.4-36.0 [facility] Comment on above: Performed By: #### 2 290593 #### [facility] [address] [place] [address] MCV (RBC) [Entitic vol] 92.8 fL Normal 80.0-100.0 [facility] Comment on above: Performed By: #### 2 605412 #### [facility] [address] [place] [address] Monocytes (Bld) [#/Vol] 0.7 E9/L Normal 0.2-1.0 [facility] Comment on above: Performed By: #### 2 839053 #### [facility] [address] [place] [address] Neutrophils (Bld) [#/Vol] 4.7 E9/L Normal 2.0-7.5 [facility] Comment on above: Performed By: #### 2 835846 #### [facility] [address] [place] [address] Neutrophils/100 WBC (Bld) 58.7 % Normal 36.0-75.0 [facility] Comment on above: Performed By: #### 2 882362 #### [facility] [address] [place] [address] Platelet 424.0 E9/L Normal 150.0-500. 0 [facility] Comment on above: Performed By: #### 2 608753 #### [facility] [address] [place] [address] Platelet mean volume (Bld) [Entitic vol] 7.6 fL Normal 6.4-10.8 [facility] Comment on above: Performed By: #### 2 709483 #### [facility] [address] [place] [address] RBC (Bld) [#/Vol] 4.6 E12/L Normal 4.3-5.9 [facility] Comment on above: Performed By: #### 2 015954 #### [facility] [address] [place] [address] WBC corrected for nucl RBC Auto (Bld) [#/Vol] 7.9 E9/L Normal 4.0-11.0 [facility] Comment on above: Performed By: #### 2 549443 #### [facility] [address] [place] [address] CMPon 06-23-2024 Albumin [Mass/Vol] 4.1 g/dL Normal 3.3-5.0 [facility] Comment on above: Performed By: #### 2 796951 #### [facility] [address] [place] [address] Albumin/Globulin (S) [Mass conc ratio] 1.6 Normal 1.1-2.2 [facility] Comment on above: Performed By: #### 2 056023 #### [facility] [address] [place] [address] ALP [Catalytic activity/Vol] 111 Int._Unit/L High 21-98 [facility] Comment on above: Performed By: #### 2 363295 #### [facility] [address] [place] [address] ALT No additional P-5'-P [Catalytic activity/Vol] 14 Int._Unit/L Normal 6-46 [facility] Comment on above: Performed By: #### 2 682989 #### [facility] [address] [place] [address] Anion gap [Moles/Vol] 12 mmol/L Normal 6-16 [facility] Comment on above: Performed By: #### 2 801493 #### [facility] [address] [place] [address] AST [Catalytic activity/Vol] 12 Int._Unit/L Normal 5-43 [facility] Comment on above: Performed By: #### 2 044173 #### [facility] [address] [place] [address] Bilirubin [Mass/Vol] 0.4 mg/dL Normal 0.0-1.1 [facility] Comment on above: Performed By: #### 2 358351 #### [facility] [address] [place] [address] Calcium [Mass/Vol] 9.3 mg/dL Normal 8.9-11.1 [facility] Comment on above: Performed By: #### 2 826640 #### [facility] [address] [place] [address] Chloride [Moles/Vol] 108 mmol/L Normal 101-111 [facility] Comment on above: Performed By: #### 2 803013 #### [facility] [address] [place] [address] CO2 [Moles/Vol] 25 mmol/L Normal 21-31 [facility] Comment on above: Performed By: #### 2 578904 #### [facility] [address] [place] [address] Creatinine [Mass/Vol] 1.1 mg/dL Normal 0.5-1.3 [facility] Comment on above: Performed By: #### 2 974307 #### [facility] [address] [place] [address] Globulin (S) [Mass/Vol] 2.5 g/dL Normal 1.4-4.0 [facility] Comment on above: Performed By: #### 2 474289 #### [facility] [address] [place] [address] Glucose [Mass/Vol] 85 mg/dL Normal 55-199 [facility] Comment on above: Performed By: #### 2 685572 #### [facility] [address] [place] [address] Potassium [Moles/Vol] 4.4 mmol/L Normal 3.5-5.3 [facility] Comment on above: Performed By: #### 2 393940 #### [facility] [address] [place] [address] Protein [Mass/Vol] 6.6 g/dL Normal 6.0-7.8 [facility] Comment on above: Performed By: #### 2 [id number] #### [facility] [address] [place] [address] Sodium [Moles/Vol] 141 mmol/L Normal 135-145 [facility] Comment on above: Performed By: #### 2 [id number] #### [facility] [address] [place] [address] Urea nitrogen [Mass/Vol] 13 mg/dL Normal 5-21 [facility] Comment on above: Performed By: #### 2 152649 #### [facility] [address] [place] [address] Urea nitrogen/Creatinine [Mass ratio] 12 No Units Normal 10-20 [facility] Comment on above: Performed By: #### 2 [id number] #### [facility] [address] [place] [address] [id number] 06-23-2024 HbA1c (Bld) [Mass fraction] 5.8 % Normal <=5.9 [facility] Comment on above: Performed By: #### 7 [id number] #### [facility] [address] [place] [address] Lipid Panelon 06-23-2024 Cholesterol [Mass/Vol] 185 mg/dL Normal 120-200 [facility] Comment on above: Performed By: #### 2 295395 #### [facility] [address] [place] [address] Cholesterol in HDL [Mass/Vol] 40 mg/dL Invalid Interpretation Code [facility] Comment on above: Result Comment: '>= 60 LOW RISK' '<= 40 HIGH RISK' Performed By: #### 2 059160 #### [facility] [address] [place] [address] Cholesterol in LDL [Mass/Vol] 132 mg/dL High <=129 [facility] Comment on above: Performed By: #### 2 [id number] #### [facility] [address] [place] [address] Cholesterol in VLDL [Mass/Vol] 43 mg/dL High 7-40 [facility] Comment on above: Performed By: #### 2 [id number] #### [facility] [address] [place] [address] Triglyceride [Mass/Vol] 213 mg/dL High <=149 [facility] Comment on above: Performed By: #### 2 051120 #### [facility] [address] [place] [address] T4 & TSHon 06-23-2024 TSH Qn 0.98 m[IU]/L Normal 0.34-5.60 [facility] Comment on above: Performed By: #### 1 [id number] #### [facility] [address] [place] [address] T4 [Mass/Vol] 8.2 microgram/dL Normal 4.6-9.1 [facility] Comment on above: Performed By: #### 1 [id number] #### [facility] [address] [place] [address] Vit B12on 06-23-2024 Cobalamin (Vitamin B12) [Mass/Vol] 208 pg/mL Normal 50-1500 [facility] Comment on above: Performed By: #### 2 302863 #### [facility] [address] [place] [address] eGFRon 06-23-2024 eGFR 60 mL/min/1.73 m2 Normal >=59 [facility] Comment on above: Performed By: #### 1 [id number] #### [facility] [address] [place] [address] CBC w/ Auto Diffon 4 Basophils/100 WBC (Bld) 1.1 % Normal 0.0-2.0 [facility] Comment on above: Performed By: #### 2 [id number] #### [facility] [address] [place] [address] Basophils/Leukocytes Auto (Bld) [Pure # fraction] 0.1 E9/L Normal 0.0-0.2 [facility] Comment on above: Performed By: #### 2 126659 #### [facility] [address] [place] [address] Eosinophils (Bld) [#/Vol] 0.2 E9/L Normal 0.0-0.5 [facility] Comment on above: Performed By: #### 2 [id number] #### [facility] [address] [place] [address] Eosinophils/100 WBC (Bld) 2.7 % Normal 0.0-8.0 [facility] Comment on above: Performed By: #### 2 209323 #### [facility] [address] [place] [address] Erythrocyte distribution width (RBC) [Ratio] 15.0 % High 10.9-14.2 [facility] Comment on above: Performed By: #### 2 699604 #### [facility] [address] [place] [address] Hematocrit (Bld) [Volume fraction] 45.5 % Normal 34.0-46.0 [facility] Comment on above: Performed By: #### 2 290330 #### [facility] [address] [place] [address] Hemoglobin (Bld) [Mass/Vol] 15.4 g/dL Normal 12.0-16.0 [facility] Comment on above: Performed By: #### 2 [id number] #### [facility] [address] [place] [address] [place] [address] Lymphocytes (Bld) [#/Vol] 2.5 E9/L Normal 1.0-4.0 [facility] Comment on above: Performed By: #### 2 [id number] #### [facility] [address] [place] [address] Lymphocytes/100 WBC (Bld) 27.7 % Normal 14.0-50.0 [facility] Comment on above: Performed By: #### 2 [id number] #### [facility] [address] [place] [address] MCH (RBC) [Entitic mass] 31.4 pg Normal 27.0-34.0 [facility] Comment on above: Performed By: #### 2 [id number] #### [facility] [address] [place] [address] MCHC (RBC) [Mass/Vol] 33.9 g/dL Normal 31.4-36.0 [facility] Comment on above: Performed By: #### 2 [id number] #### [facility] [address] [place] [address] MCV (RBC) [Entitic vol] 92.5 fL Normal 80.0-100.0 [facility] Comment on above: Performed By: #### 2 302107 #### [facility] [address] [place] [address] Monocytes (Bld) [#/Vol] 0.7 E9/L Normal 0.2-1.0 [facility] Comment on above: Performed By: #### 2 [id number] #### [facility] [address] [place] [address] Neutrophils (Bld) [#/Vol] 5.4 E9/L Normal 2.0-7.5 [facility] Comment on above: Performed By: #### 2 [id number] #### [facility] [address] [place] [address] Neutrophils/100 WBC (Bld) 60.7 % Normal 36.0-75.0 [facility] Comment on above: Performed By: #### 2 694721 #### [facility] [address] [place] [address] Platelet 446.0 E9/L Normal 150.0-500. 0 [facility] Comment on above: Performed By: #### 2 030355 #### [facility] [address] [place] [address] Platelet mean volume (Bld) [Entitic vol] 7.9 fL Normal 6.4-10.8 [facility] Comment on above: Performed By: #### 2 [id number] #### [facility] [address] [place] [address] RBC (Bld) [#/Vol] 4.9 E12/L Normal 4.3-5.9 [facility] Comment on above: Performed By: #### 2 526265 #### [facility] [address] [place] [address] WBC corrected for nucl RBC Auto (Bld) [#/Vol] 8.9 E9/L Normal 4.0-11.0 [facility] Comment on above: Performed By: #### 2 473003 #### [facility] [address] [place] [address] CMPon 05-04-2024 Albumin [Mass/Vol] 4.1 g/dL Normal 3.3-5.0 [facility] Comment on above: Performed By: #### 2 779489 #### [facility] [address] [place] [address] Albumin/Globulin (S) [Mass conc ratio] 1.4 Normal 1.1-2.2 [facility] Comment on above: Performed By: #### 2 499377 #### [facility] [address] [place] [address] ALP [Catalytic activity/Vol] 134 Int._Unit/L High 21-98 [facility] Comment on above: Performed By: #### 2 [id number] #### [facility] [address] [place] [address] ALT No additional P-5'-P [Catalytic activity/Vol] 18 Int._Unit/L Normal 6-46 [facility] Comment on above: Performed By: #### 2 [id number] #### [facility] [address] [place] [address] Anion gap [Moles/Vol] 13 mmol/L Normal 6-16 [facility] Comment on above: Performed By: #### 2 300856 #### [facility] [address] [place] [address] AST [Catalytic activity/Vol] 13 Int._Unit/L Normal 5-43 [facility] Comment on above: Performed By: #### 2 814100 #### [facility] [address] [place] [address] Bilirubin [Mass/Vol] 0.4 mg/dL Normal 0.0-1.1 [facility] Comment on above: Performed By: #### 2 [id number] #### [facility] [address] [place] [address] Calcium [Mass/Vol] 9.3 mg/dL Normal 8.9-11.1 [facility] Comment on above: Performed By: #### 2 [id number] #### [facility] [address] [place] [address] Chloride [Moles/Vol] 103 mmol/L Normal 101-111 [facility] Comment on above: Performed By: #### 2 051174 #### [facility] [address] [place] [address] CO2 [Moles/Vol] 27 mmol/L Normal 21-31 [facility] Comment on above: Performed By: #### 2 604447 #### [facility] [address] [place] [address] Creatinine [Mass/Vol] 1.2 mg/dL Normal 0.5-1.3 [facility] Comment on above: Performed By: #### 2 722270 #### [facility] [address] [place] [address] Globulin (S) [Mass/Vol] 2.9 g/dL Normal 1.4-4.0 [facility] Comment on above: Performed By: #### 2 131624 #### [facility] [address] [place] [address] Glucose [Mass/Vol] 103 mg/dL Normal 55-199 [facility] Comment on above: Performed By: #### 2 565023 #### [facility] [address] [place] [address] Potassium [Moles/Vol] 4.9 mmol/L Normal 3.5-5.3 [facility] Comment on above: Performed By: #### 2 854825 #### [facility] [address] [place] [address] Protein [Mass/Vol] 7.0 g/dL Normal 6.0-7.8 [facility] Comment on above: Performed By: #### 2 550522 #### [facility] [address] [place] [address] Sodium [Moles/Vol] 138 mmol/L Normal 135-145 [facility] Comment on above: Performed By: #### 2 720667 #### [facility] [address] [place] [address] Urea nitrogen [Mass/Vol] 11 mg/dL Normal 5-21 [facility] Comment on above: Performed By: #### 2 360171 #### [facility] [address] [place] [address] Urea nitrogen/Creatinine [Mass ratio] 9 No Units Low 10-20 [facility] Comment on above: Performed By: #### 2 047227 #### [facility] [address] [place] [address] Lipid Panelon 05-04-2024 Cholesterol [Mass/Vol] 177 mg/dL Normal 120-200 [facility] Comment on above: Performed By: #### 2 393256 #### [facility] [address] [place] [address] Cholesterol in HDL [Mass/Vol] 43 mg/dL Invalid Interpretation Code [facility] Comment on above: Result Comment: '>= 60 LOW RISK' '<= 40 HIGH RISK' Performed By: #### 2 504960 #### [facility] [address] [place] [address] Cholesterol in LDL [Mass/Vol] 125 mg/dL Normal <=129 [facility] Comment on above: Performed By: #### 2 667904 #### [facility] [address] [place] [address] Cholesterol in VLDL [Mass/Vol] 33 mg/dL Normal 7-40 [facility] Comment on above: Performed By: #### 2 672516 #### [facility] [address] [place] [address] Triglyceride [Mass/Vol] 165 mg/dL High <=149 [facility] Comment on above: Performed By: #### 2 823708 #### [facility] [address] [place] [address] T4 & TSHon 05-04-2024 TSH Qn 1.28 m[IU]/L Normal 0.34-5.60 [facility] Comment on above: Performed By: #### 1 9450022 #### [facility] [address] [place] [address] T4 [Mass/Vol] 9.2 microgram/dL High 4.6-9.1 [facility] Comment on above: Performed By: #### 1 6308941 #### [facility] [address] [place] [address] Vit B12on 05-04-2024 Cobalamin (Vitamin B12) [Mass/Vol] 186 pg/mL Normal 50-1500 [facility] Comment on above: Performed By: #### 2 654049 #### [facility] [address] [place] [address] eGFRon 05-04-2024 eGFR 54 mL/min/1.73 m2 Low >=59 [facility] Comment on above: Order Comment: Order added by Discern Expert. Performed By: #### 1 [id number] #### [facility] [address] [place] [address] FLUORO FOR SURGICAL PROCEDUR ESon 03-21-2024 FLUORO FOR SURGICAL PROCEDURES Radiology exam is complete. No Radiologist dictation. Please follow up with ordering provider. Final result Normal [facility] Physician Orderon 02-23-2024 Physician Order [id number]#[id number] Normal [facility] CMPon 01-21-2024 Albumin [Mass/Vol] 3.7 g/dL Normal 3.3-5.0 [facility] Comment on above: Performed By: #### 2 674663 #### [facility] [address] [place] [address] Albumin/Globulin (S) [Mass conc ratio] 1.6 Normal 1.1-2.2 [facility] Comment on above: Performed By: #### 2 588448 #### [facility] [address] [place] [address] ALP [Catalytic activity/Vol] 114 Int._Unit/L High 21-98 [facility] Comment on above: Performed By: #### 2 347232 #### [facility] [address] [place] [address] ALT No additional P-5'-P [Catalytic activity/Vol] 18 Int._Unit/L Normal 6-46 [facility] Comment on above: Performed By: #### 2 200777 #### [facility] [address] [place] [address] Anion gap [Moles/Vol] 9 mmol/L Normal 6-16 [facility] Comment on above: Performed By: #### 2 316562 #### [facility] [address] [place] [address] AST [Catalytic activity/Vol] 13 Int._Unit/L Normal 5-43 [facility] Comment on above: Performed By: #### 2 552442 #### [facility] [address] [place] [address] Bilirubin [Mass/Vol] 0.3 mg/dL Normal 0.0-1.1 [facility] Comment on above: Performed By: #### 2 795071 #### [facility] [address] [place] [address] Calcium [Mass/Vol] 8.5 mg/dL Low 8.9-11.1 [facility] Comment on above: Performed By: #### 2 379966 #### [facility] [address] [place] [address] Chloride [Moles/Vol] 106 mmol/L Normal 101-111 [facility] Comment on above: Performed By: #### 2 520999 #### [facility] [address] [place] [address] CO2 [Moles/Vol] 27 mmol/L Normal 21-31 [facility] Comment on above: Performed By: #### 2 096476 #### [facility] [address] [place] [address] Creatinine [Mass/Vol] 0.9 mg/dL Normal 0.5-1.3 [facility] Comment on above: Performed By: #### 2 530430 #### [facility] [address] [place] [address] Globulin (S) [Mass/Vol] 2.3 g/dL Normal 1.4-4.0 [facility] Comment on above: Performed By: #### 2 680536 #### [facility] [address] [place] [address] Glucose [Mass/Vol] 107 mg/dL Normal 55-199 [facility] Comment on above: Performed By: #### 2 532298 #### [facility] [address] [place] [address] Potassium [Moles/Vol] 4.3 mmol/L Normal 3.5-5.3 [facility] Comment on above: Performed By: #### 2 169759 #### [facility] [address] [place] [address] Protein [Mass/Vol] 6.0 g/dL Normal 6.0-7.8 [facility] Comment on above: Performed By: #### 2 836297 #### [facility] [address] [place] [address] Sodium [Moles/Vol] 138 mmol/L Normal 135-145 [facility] Comment on above: Performed By: #### 2 167126 #### [facility] [address] [place] [address] Urea nitrogen [Mass/Vol] 11 mg/dL Normal 5-21 [facility] Comment on above: Performed By: #### 2 394548 #### [facility] [address] [place] [address] Urea nitrogen/Creatinine [Mass ratio] 12 No Units Normal 10-20 [facility] Comment on above: Performed By: #### 2 102753 #### [facility] [address] [place] [address] Physician Orderon 01-21-2024 Physician Order [id number]#[id number] Normal [facility] eGFRon 01-21-2024 eGFR 77 mL/min/1.73 m2 Normal >=59 [facility] Comment on above: Order Comment: Order added by Discern Expert. Performed By: #### 1 3613571 #### [facility] [address] [place] [address] FL GUIDED FOR SPINE INJECTon 12-23-2023 FL GUIDED FOR SPINE INJECT Final result Normal [facility] BRITNI w/Reflex if POSon 2023 Nuclear Ab Ql (S) Negative Invalid Interpretation Code Negative [facility] Comment on above: Result Comment: Perf ormed at: [facility] [address] [id number] PhD Cameron Melara Performed By: #### 7 [id number], 5903023, 85615741, 0258033 #### [facility] [address] [place] [address] RF Quanton 11-26-2023 Rheumatoid factor Qn [IU]/mL Invalid Interpretation Code <14.0 [facility] Comment on above: Result Comment: Perf ormed at: [facility] [address] [place] [id number] [place], [place] [id number] PhD Cameron Melara Performed By: #### 1 7331480, 47329287, 80404117, 3051747 #### [facility] [address] [place] [address] CMPon 11-24-2023 Albumin [Mass/Vol] 4.3 g/dL Normal 3.3-5.0 [facility] Comment on above: Performed By: #### 1 6916415, 37886764, 78067350, 8396358 #### [facility] [address] [place] [id number] Albumin/Globulin (S) [Mass conc ratio] 1.9 Normal 1.1-2.2 [facility] Comment on above: Performed By: #### 1 3525082, 90567344, 00105277, 8428057 #### [facility] [address] [place] [address] ALP [Catalytic activity/Vol] 91 Int._Unit/L Normal 21-98 [facility] Comment on above: Performed By: #### 1 4085405, 28572168, 61428282, 6137771 #### [facility] [address] [place] [address] ALT No additional P-5'-P [Catalytic activity/Vol] 17 Int._Unit/L Normal 6-46 [facility] Comment on above: Performed By: #### 1 2113473, 78913812, 43119138, 8318754 #### [facility] [address] [place] [address] Anion gap [Moles/Vol] 12 mmol/L Normal 6-16 [facility] Comment on above: Performed By: #### 1 5222773, 07291857, 76157420, 2971801 #### [facility] [address] [place] [address] AST [Catalytic activity/Vol] 13 Int._Unit/L Normal 5-43 [facility] Comment on above: Performed By: #### 1 1658613, 05951409, 37603691, 1821526 #### [facility] [address] [place] [address] Bilirubin [Mass/Vol] 0.4 mg/dL Normal 0.0-1.1 [facility] Comment on above: Performed By: #### 1 1644801, 52453011, 84398571, 9396380 #### [facility] [address] [place] [address] Calcium [Mass/Vol] 9.8 mg/dL Normal 8.9-11.1 [facility] Comment on above: Performed By: #### 1 7881892, 70336554, 55700669, 4004248 #### [facility] [address] [place] [address] Chloride [Moles/Vol] 107 mmol/L Normal 101-111 [facility] Comment on above: Performed By: #### 1 6781570, 68947617, 19361724, 3953094 #### [facility] [address] [place] [address] CO2 [Moles/Vol] 26 mmol/L Normal 21-31 [facility] Comment on above: Performed By: #### 1 6114858, 08775699, 38949526, 7205155 #### [facility] [address] [place] [address] Creatinine [Mass/Vol] 1.1 mg/dL Normal 0.5-1.3 [facility] Comment on above: Performed By: #### 1 6944636, 44764006, 94299447, 3455225 #### [facility] [address] [place] [address] Globulin (S) [Mass/Vol] 2.3 g/dL Normal 1.4-4.0 [facility] Comment on above: Performed By: #### 1 7629195, 90792159, 30745841, 9435303 #### [facility] [address] [place] [address] Glucose [Mass/Vol] 64 mg/dL Normal 55-199 [facility] Comment on above: Performed By: #### 1 7861632, 49715652, 14569443, 4591673 #### [facility] [address] [place] [address] Potassium [Moles/Vol] 4.5 mmol/L Normal 3.5-5.3 [facility] Comment on above: Performed By: #### 1 8117521, 01531272, 88065483, 2591406 #### [facility] [address] [place] [address] Protein [Mass/Vol] 6.6 g/dL Normal 6.0-7.8 [facility] Comment on above: Performed By: #### 1 1079250, 54739293, 51072216, 8101594 #### [facility] [address] [place] [address] Sodium [Moles/Vol] 140 mmol/L Normal 135-145 [facility] Comment on above: Performed By: #### 1 6992343, 64262932, 81817259, 1574682 #### [facility] [address] [place] [address] Urea nitrogen [Mass/Vol] 11 mg/dL Normal 5-21 [facility] Comment on above: Performed By: #### 1 7233797, 76773676, 73699104, 9820516 #### [facility] [address] [place] [address] Urea nitrogen/Creatinine [Mass ratio] 10 No Units Normal 10-20 [facility] Comment on above: Performed By: #### 1 7473507, 92165625, 08537977, 1719411 #### [facility] [address] [place] [address] eGFRon 11-24-2023 eGFR 60 mL/min/1.73 m2 Normal >=59 [facility] Comment on above: Order Comment: Order added by Discern Expert. Performed By: #### 1 8616882, 83612379, 62834460, 0419631 #### [facility] [address] [place], [place] [address] CMPon 11-10-2023 Albumin [Mass/Vol] 3.7 g/dL Normal 3.3-5.0 [facility] Comment on above: Performed By: #### 1 9637440, 8489145 #### [facility] [address] [place], [place] [address] Albumin/Globulin (S) [Mass conc ratio] 1.9 Normal 1.1-2.2 [facility] Comment on above: Performed By: #### 1 0426230, 8292843 #### [facility] [address] [place], [place] [address] ALP [Catalytic activity/Vol] 76 Int._Unit/L Normal 21-98 [facility] Comment on above: Performed By: #### 1 3051546, 1760821 #### [facility] [address] [place] [address] ALT No additional P-5'-P [Catalytic activity/Vol] 14 Int._Unit/L Normal 6-46 [facility] Comment on above: Performed By: #### 1 9931463, 8877534 #### [facility] [address] [place] [address] Anion gap [Moles/Vol] 10 mmol/L Normal 6-16 [facility] Comment on above: Performed By: #### 1 7127203, 5739479 #### [facility] [address] [place] [address] AST [Catalytic activity/Vol] 10 Int._Unit/L Normal 5-43 [facility] Comment on above: Performed By: #### 1 6851086, 1083163 #### [facility] [address] [place] [address] Bilirubin [Mass/Vol] 0.4 mg/dL Normal 0.0-1.1 [facility] Comment on above: Performed By: #### 1 0139955, 0936072 #### [facility] [address] [place] [address] Calcium [Mass/Vol] 8.6 mg/dL Low 8.9-11.1 [facility] Comment on above: Performed By: #### 1 1434210, 7481642 #### [facility] [address] [place] [address] Chloride [Moles/Vol] 109 mmol/L Normal 101-111 [facility] Comment on above: Performed By: #### 1 2633639, 9084449 #### [facility] [address] [place] [address] CO2 [Moles/Vol] 27 mmol/L Normal 21-31 [facility] Comment on above: Performed By: #### 1 3287187, 7403838 #### [facility] [address] [place] [address] Creatinine [Mass/Vol] 1.0 mg/dL Normal 0.5-1.3 [facility] Comment on above: Performed By: #### 1 5488578, 4321491 #### [facility] [address] [place] [address] Globulin (S) [Mass/Vol] 2.0 g/dL Normal 1.4-4.0 [facility] Comment on above: Performed By: #### 1 4470161, 0200815 #### [facility] [address] [place] [address] Glucose [Mass/Vol] 78 mg/dL Normal 55-199 [facility] Comment on above: Performed By: #### 1 0484179, 9954530 #### [facility] [address] [place] [address] Potassium [Moles/Vol] 3.9 mmol/L Normal 3.5-5.3 [facility] Comment on above: Performed By: #### 1 5421462, 7105939 #### [facility] [address] [place] [address] Protein [Mass/Vol] 5.7 g/dL Low 6.0-7.8 [facility] Comment on above: Performed By: #### 1 8573946, 0181173 #### [facility] [address] [place] [address] Sodium [Moles/Vol] 142 mmol/L Normal 135-145 [facility] Comment on above: Performed By: #### 1 4151754, 4259025 #### [facility] [address] [place] [address] Urea nitrogen [Mass/Vol] 9 mg/dL Normal 5-21 [facility] Comment on above: Performed By: #### 1 1839830, 8444143 #### [facility] [address] [place] [address] Urea nitrogen/Creatinine [Mass ratio] 9 No Units Low 10-20 [facility] Comment on above: Performed By: #### 1 1611687, 8093170 #### [facility] [address] [place] [address] Physician Orderon 11-10-2023 Physician Order [id number]#[id number] Normal [facility] eGFRon 11-10-2023 eGFR 68 mL/min/1.73 m2 Normal >=59 [facility] Comment on above: Order Comment: Order added by Discern Expert. Performed By: #### 1 8259868, 9382417 #### [facility] [address] [place] [address] CBC w/ Auto Diffon 4 Basophil Absolute 0.1 E9/L Normal 0.0-0.2 [facility] Comment on above: Performed By: #### 7 11826854, 0043630, 44135987, 0769649 #### [facility] [address] [place] [address] Basophils/100 WBC (Bld) 1.1 % Normal 0.0-2.0 [facility] Comment on above: Performed By: #### 7 81883187, 3187219, 51245658, 2012173 #### [facility] [address] [place] [address] Eos Absolute 0.2 E9/L Normal 0.0-0.5 [facility] Comment on above: Performed By: #### 7 74922470, 5001194, 30589123, 6766901 #### [facility] [address] [place] [address] Eosinophils/100 WBC (Bld) 1.9 % Normal 0.0-8.0 [facility] Comment on above: Performed By: #### 7 32293718, 9747111, 42947385, 9183213 #### [facility] [address] [place] [address] Erythrocyte distribution width (RBC) [Ratio] 16.6 % High 10.9-14.2 [facility] Comment on above: Performed By: #### 7 06710066, 2388658, 16890407, 1950438 #### [facility] [address] [place] [address] Hematocrit (Bld) [Volume fraction] 39.0 % Normal 34.0-46.0 [facility] Comment on above: Performed By: #### 7 14860660, 3177626, 86682990, 5783028 #### [facility] [address] [place] [address] Hemoglobin (Bld) [Mass/Vol] 12.2 g/dL Normal 12.0-16.0 [facility] Comment on above: Performed By: #### 7 36162571, 4997687, 86787416, 4814293 #### [facility] [address] [place] [address] Lymph Absolute 1.9 E9/L Normal 1.0-4.0 [facility] Comment on above: Performed By: #### 7 98143956, 7816621, 34450382, 1661010 #### [facility] [address] [place] [address] Lymphocytes/100 WBC (Bld) 17.8 % Normal 14.0-50.0 [facility] Comment on above: Performed By: #### 7 57291424, 6793810, 99362644, 5915639 #### [facility] [address] [place] [address] MCH (RBC) [Entitic mass] 30.4 pg Normal 27.0-34.0 [facility] Comment on above: Performed By: #### 7 29552269, 6464920, 15105737, 5651043 #### [facility] [address] [place] [address] MCHC (RBC) [Mass/Vol] 31.4 g/dL Normal 31.4-36.0 [facility] Comment on above: Performed By: #### 7 68642752, 8178890, 49690506, 1820007 #### [facility] [address] [place] [address] MCV (RBC) [Entitic vol] 96.7 fL Normal 80.0-100.0 [facility] Comment on above: Performed By: #### 7 86554315, 7472583, 06813617, 9144810 #### [facility] [address] [place] [address] Day Absolute 0.9 E9/L Normal 0.2-1.0 [facility] Comment on above: Performed By: #### 7 82481911, 3453404, 34265194, 5198332 #### [facility] [address] [place] [address] Monocytes/100 WBC (Bld) 8.4 % Normal 4.0-14.0 [facility] Comment on above: Performed By: #### 7 29998664, 0610149, 48628465, 6474804 #### [facility] [address] [place] [address] Neutro Absolute 7.5 E9/L Normal 2.0-7.5 [facility] Comment on above: Performed By: #### 7 54507387, 0336205, 13500165, 1887677 #### [facility] [address] [place] [address] Neutro Auto 70.8 % Normal 36.0-75.0 [facility] Comment on above: Performed By: #### 7 56002575, 9251626, 52116446, 9879365 #### [facility] [address] [place] [address] Platelet 391.0 E9/L Normal 150.0-500. 0 [facility] Comment on above: Performed By: #### 7 51252618, 2313287, 01008641, 2844474 #### [facility] [address] [place] [address] Platelet mean volume (Bld) [Entitic vol] 7.4 fL Normal 6.4-10.8 [facility] Comment on above: Performed By: #### 7 08609295, 8521076, 02448201, 0722800 #### [facility] [address] [place] [address] RBC 4.0 E12/L Low 4.3-5.9 [facility] Comment on above: Performed By: #### 7 87977801, 0103316, 58954400, 8992657 #### [facility] [address] [place] [address] WBC 10.6 E9/L Normal 4.0-11.0 [facility] Comment on above: Performed By: #### 7 36625217, 8757573, 58429442, 8980802 #### [facility] [address] [place] [address] CMPon 10-26-2023 Albumin [Mass/Vol] 3.7 g/dL Normal 3.3-5.0 [facility] Comment on above: Performed By: #### 7 49481065, 2429198, 34324195, 5801706 #### [facility] [address] [place] [address] Albumin/Globulin [Mass ratio] 1.5 {ratio} Normal 1.1-2.2 [facility] Comment on above: Performed By: #### 7 65575919, 5254557, 62652874, 7175236 #### [facility] [address] [place] [address] Alk Phos 66 Int._Unit/L Normal 21-98 [facility] Comment on above: Performed By: #### 7 02154814, 8451991, 70488193, 6486561 #### [facility] [address] [place] [address] ALT 19 Int._Unit/L Normal 6-46 [facility] Comment on above: Performed By: #### 7 61545166, 8021569, 72635019, 9384139 #### [facility] [address] [place] [address] Anion gap [Moles/Vol] 12 mmol/L Normal 6-16 [facility] Comment on above: Performed By: #### 7 07979328, 0688144, 28739241, 0890750 #### [facility] [address] [place] [address] AST 11 Int._Unit/L Normal 5-43 [facility] Comment on above: Performed By: #### 7 03583890, 3648872, 15115756, 5144261 #### [facility] [address] [place] [address] Bili Total 0.4 mg/dL Normal 0.0-1.1 [facility] Comment on above: Performed By: #### 7 16430435, 4208107, 20426044, 1018211 #### [facility] [address] [place] [address] BUN/Creat Ratio 9 No Units Low 10-20 [facility] Comment on above: Performed By: #### 7 16986370, 8052784, 82274765, 4969483 #### [facility] [address] [place] [address] Calcium [Mass/Vol] 8.9 mg/dL Normal 8.9-11.1 [facility] Comment on above: Performed By: #### 7 15652542, 6290203, 97430076, 4265318 #### [facility] [address] [place] [address] Chloride [Moles/Vol] 108 mmol/L Normal 101-111 [facility] Comment on above: Performed By: #### 7 99998735, 7298563, 76674008, 5346292 #### [facility] [address] [place] [address] CO2 [Moles/Vol] 26 mmol/L Normal 21-31 [facility] Comment on above: Performed By: #### 7 07322334, 3272615, 77754402, 0606195 #### [facility] [address] [place] [address] Creatinine [Mass/Vol] 1.2 mg/dL Normal 0.5-1.3 [facility] Comment on above: Performed By: #### 7 45243022, 7657674, 26438412, 3619250 #### [facility] [address] [place] [address] Globulin (S) [Mass/Vol] 2.4 g/dL Normal 1.4-4.0 [facility] Comment on above: Performed By: #### 7 55984948, 5091917, 65770182, 5113933 #### [facility] [address] [place] [address] Glucose [Mass/Vol] 87 mg/dL Normal 55-199 [facility] Comment on above: Performed By: #### 7 79515392, 1426225, 95091095, 3792253 #### [facility] [address] [place] [address] Potassium [Moles/Vol] 3.8 mmol/L Normal 3.5-5.3 [facility] Comment on above: Performed By: #### 7 79709119, 8421715, 43143776, 7630851 #### [facility] [address] [place] [address] Protein [Mass/Vol] 6.1 g/dL Normal 6.0-7.8 [facility] Comment on above: Performed By: #### 7 23194089, 9881939, 34563553, 2242011 #### [facility] [address] [place] [address] Sodium [Moles/Vol] 142 mmol/L Normal 135-145 [facility] Comment on above: Performed By: #### 7 12217697, 6652304, 63537473, 6734418 #### [facility] [address] [place] [address] Urea nitrogen [Mass/Vol] 11 mg/dL Normal 5-21 [facility] Comment on above: Performed By: #### 7 71430825, 6276644, 81651762, 1739435 #### [facility] [address] [place] [address] Physician Orderon 10-26-2023 Physician Order [id number] Normal [facility] eGFRon 10-26-2023 eGFR 54 mL/min/1.73 m2 Low >=59 [facility] Comment on above: Order Comment: Order added by Discern Expert. Performed By: #### 7 [id number], 9776462, 47766472, 5750527 #### [facility] [address] [place] [address] CBC w/ Auto Diffon 4 Basophil Absolute 0.1 E9/L Normal 0.0-0.2 [facility] Comment on above: Performed By: #### 7 59506970, 9044133, 50565651, 6611661 #### [facility] [address] [place] [address] Basophils/100 WBC (Bld) 0.3 % Normal 0.0-2.0 [facility] Comment on above: Performed By: #### 7 29284081, 3115540, 20939003, 7618203 #### [facility] [address] [place] [address] Eos Absolute 0.1 E9/L Normal 0.0-0.5 [facility] Comment on above: Performed By: #### 7 80349334, 3577992, 22548317, 4650295 #### [facility] [address] [place] [address] Eosinophils/100 WBC (Bld) 0.3 % Normal 0.0-8.0 [facility] Comment on above: Performed By: #### 7 40165880, 8054644, 21653152, 2985799 #### [facility] [address] [place] [address] Erythrocyte distribution width (RBC) [Ratio] 15.1 % High 10.9-14.2 [facility] Comment on above: Performed By: #### 7 43224920, 5228941, 91263786, 2343626 #### [facility] [address] [place] [address] Hematocrit (Bld) [Volume fraction] 37.0 % Normal 34.0-46.0 [facility] Comment on above: Performed By: #### 7 47941407, 4421917, 29956994, 5398339 #### [facility] [address] [place] [address] Hemoglobin (Bld) [Mass/Vol] 11.8 g/dL Low 12.0-16.0 [facility] Comment on above: Performed By: #### 7 30200383, 6899692, 51638512, 8232980 #### [facility] [address] [place] [address] Lymph Absolute 4.6 E9/L High 1.0-4.0 [facility] Comment on above: Performed By: #### 7 00005942, 9071347, 83524078, 4085096 #### [facility] [address] [place] [address] Lymphocytes/100 WBC (Bld) 26.1 % Normal 14.0-50.0 [facility] Comment on above: Performed By: #### 7 31373038, 7379187, 78423189, 8868960 #### [facility] [address] [place] [address] MCH (RBC) [Entitic mass] 30.5 pg Normal 27.0-34.0 [facility] Comment on above: Performed By: #### 7 63640389, 7563063, 04950015, 7767669 #### [facility] [address] [place] [address] MCHC (RBC) [Mass/Vol] 31.9 g/dL Normal 31.4-36.0 [facility] Comment on above: Performed By: #### 7 28950370, 8013535, 37786125, 3855149 #### [facility] [address] [place] [address] MCV (RBC) [Entitic vol] 95.7 fL Normal 80.0-100.0 [facility] Comment on above: Performed By: #### 7 60723674, 8222045, 13312278, 6861183 #### [facility] [address] [place] [address] Day Absolute 1.6 E9/L High 0.2-1.0 [facility] Comment on above: Performed By: #### 7 16345740, 7362189, 51239668, 6076856 #### [facility] [address] [place] [address] Monocytes/100 WBC (Bld) 9.2 % Normal 4.0-14.0 [facility] Comment on above: Performed By: #### 7 53023046, 3738823, 77804335, 3985640 #### [facility] [address] [place] [address] Neutro Absolute 11.4 E9/L High 2.0-7.5 [facility] Comment on above: Performed By: #### 7 71407018, 8433272, 91180831, 2362237 #### [facility] [address] [place] [address] Neutro Auto 64.1 % Normal 36.0-75.0 [facility] Comment on above: Performed By: #### 7 94117727, 0090623, 23598843, 9942408 #### [facility] [address] [place] [address] Platelet 453.0 E9/L Normal 150.0-500. 0 [facility] Comment on above: Performed By: #### 7 27281103, 0052758, 13996402, 5129809 #### [facility] [address] [place] [address] Platelet mean volume (Bld) [Entitic vol] 7.4 fL Normal 6.4-10.8 [facility] Comment on above: Performed By: #### 7 81339713, 0247549, 61176086, 0251059 #### [facility] [address] [place] [address] RBC 3.9 E12/L Low 4.3-5.9 [facility] Comment on above: Performed By: #### 7 61540305, 3186304, 60192701, 3067733 #### [facility] [address] [place] [address] WBC 17.8 E9/L High 4.0-11.0 [facility] Comment on above: Result Comment: Slid e reviewed by KD Performed By: #### 7 07309974, 9589676, 49250533, 5864761 #### [facility] [address] [place] [address] CMPon 10-22-2023 Albumin [Mass/Vol] 3.5 g/dL Normal 3.3-5.0 [facility] Comment on above: Performed By: #### 7 41202855, 0106787, 48945369, 3145731 #### [facility] [address] [place] [address] Albumin/Globulin [Mass ratio] 1.6 {ratio} Normal 1.1-2.2 [facility] Comment on above: Performed By: #### 7 64463469, 1213777, 48503321, 6380604 #### [facility] [address] [place] [address] Alk Phos 54 Int._Unit/L Normal 21-98 [facility] Comment on above: Performed By: #### 7 04498760, 6448600, 97115836, 0844039 #### [facility] [address] [place] [address] ALT 21 Int._Unit/L Normal 6-46 [facility] Comment on above: Performed By: #### 7 73848584, 9925584, 69559472, 2775489 #### [facility] [address] [place] [address] Anion gap [Moles/Vol] 10 mmol/L Normal 6-16 [facility] Comment on above: Performed By: #### 7 88891794, 3126543, 50887696, 5984809 #### [facility] [address] [place] [address] AST 10 Int._Unit/L Normal 5-43 [facility] Comment on above: Performed By: #### 7 46347612, 9945943, 32128862, 3373273 #### [facility] [address] [place] [address] Bili Total 0.3 mg/dL Normal 0.0-1.1 [facility] Comment on above: Performed By: #### 7 65005297, 1885226, 42076110, 2224915 #### [facility] [address] [place] [address] BUN/Creat Ratio 19 No Units Normal 10-20 [facility] Comment on above: Performed By: #### 7 01741406, 6913786, 79448038, 4635238 #### [facility] [address] [place] [address] Calcium [Mass/Vol] 8.7 mg/dL Low 8.9-11.1 [facility] Comment on above: Performed By: #### 7 58465359, 6286021, 94135462, 9273672 #### [facility] [address] [place] [address] Chloride [Moles/Vol] 108 mmol/L Normal 101-111 [facility] Comment on above: Performed By: #### 7 74224499, 4717354, 59205219, 5658417 #### [facility] [address] [place] [address] CO2 [Moles/Vol] 28 mmol/L Normal 21-31 [facility] Comment on above: Performed By: #### 7 52941723, 9239165, 49984794, 8717973 #### [facility] [address] [place] [address] Creatinine [Mass/Vol] 1.3 mg/dL Normal 0.5-1.3 [facility] Comment on above: Performed By: #### 7 90252921, 2374348, 23081298, 7518071 #### [facility] [address] [place] [address] Globulin (S) [Mass/Vol] 2.2 g/dL Normal 1.4-4.0 [facility] Comment on above: Performed By: #### 7 65051070, 7107480, 61989440, 8491886 #### [facility] [address] [place] [address] Glucose [Mass/Vol] 77 mg/dL Normal 55-199 [facility] Comment on above: Performed By: #### 7 03715765, 3953616, 33890670, 0901322 #### [facility] [address] [place] [address] Potassium [Moles/Vol] 4.2 mmol/L Normal 3.5-5.3 [facility] Comment on above: Performed By: #### 7 07793803, 0217217, 33199875, 5168541 #### [facility] [address] [place] [address] Protein [Mass/Vol] 5.7 g/dL Low 6.0-7.8 [facility] Comment on above: Performed By: #### 7 75658746, 1831309, 46419222, 9576636 #### [facility] [address] [place] [address] Sodium [Moles/Vol] 142 mmol/L Normal 135-145 [facility] Comment on above: Performed By: #### 7 68460992, 9149963, 05166892, 6137893 #### [facility] [address] [place] [address] Urea nitrogen [Mass/Vol] 25 mg/dL High 5-21 [facility] Comment on above: Performed By: #### 7 84448236, 6482777, 70259117, 1936837 #### [facility] [address] [place] [address] MrgZ1tol 10-22-2023 HbA1c (Bld) [Mass fraction] 6.2 % High <=5.9 [facility] Comment on above: Performed By: #### 7 08538996, 2981661, 21202966, 8182684 #### [facility] [address] [place] [address] Physician Orderon 10-22-2023 Physician Order [id number] Normal [facility] eGFRon 10-22-2023 eGFR 49 mL/min/1.73 m2 Low >=59 [facility] Comment on above: Order Comment: Order added by Discern Expert. Performed By: #### 7 77917330, 3274994, 19127746, 0843982 #### [facility] [address] [place] [address] CBC w/ Auto Diffon Basophil Absolute 0.1 E9/L Normal 0.0-0.2 [facility] Comment on above: Performed By: #### 7 16373173, 7495219, 78282309, 9660214 #### [facility] [address] [place] [address] Basophils/100 WBC (Bld) 0.3 % Normal 0.0-2.0 [facility] Comment on above: Performed By: #### 7 33455081, 2266947, 58307478, 2460416 #### [facility] [address] [place] [address] Eos Absolute 0.2 E9/L Normal 0.0-0.5 [facility] Comment on above: Performed By: #### 7 27177513, 9435502, 68011974, 5257262 #### [facility] [address] [place] [address] Eosinophils/100 WBC (Bld) 1.1 % Normal 0.0-8.0 [facility] Comment on above: Performed By: #### 7 51671987, 7813475, 73327976, 1238888 #### [facility] [address] [place] [address] Erythrocyte distribution width (RBC) [Ratio] 14.6 % High 10.9-14.2 [facility] Comment on above: Performed By: #### 7 26406851, 3701528, 25602247, 5742076 #### [facility] [address] [place] [address] Hematocrit (Bld) [Volume fraction] 40.0 % Normal 34.0-46.0 [facility] Comment on above: Performed By: #### 7 13342117, 1510261, 69347736, 9745516 #### [facility] [address] [place] [address] Hemoglobin (Bld) [Mass/Vol] 12.8 g/dL Normal 12.0-16.0 [facility] Comment on above: Performed By: #### 7 66794310, 5661640, 07316784, 7813667 #### [facility] [address] [place] [address] Lymph Absolute 2.9 E9/L Normal 1.0-4.0 [facility] Comment on above: Performed By: #### 7 97855750, 5070842, 57128586, 0905821 #### [facility] [address] [place] [address] Lymphocytes/100 WBC (Bld) 18.7 % Normal 14.0-50.0 [facility] Comment on above: Performed By: #### 7 40835008, 7267964, 96333401, 8068909 #### [facility] [address] [place] [address] MCH (RBC) [Entitic mass] 30.8 pg Normal 27.0-34.0 [facility] Comment on above: Performed By: #### 7 63255756, 3970919, 71983306, 2372257 #### [facility] [address] [place] [address] MCHC (RBC) [Mass/Vol] 32.4 g/dL Normal 31.4-36.0 [facility] Comment on above: Performed By: #### 7 53187752, 5119824, 84514198, 5641529 #### [facility] [address] [place] [address] MCV (RBC) [Entitic vol] 95.0 fL Normal 80.0-100.0 [facility] Comment on above: Performed By: #### 7 73645769, 6096861, 05561093, 0436515 #### [facility] [address] [place] [address] Day Absolute 1.1 E9/L High 0.2-1.0 [facility] Comment on above: Performed By: #### 7 80699273, 6717845, 61447629, 1386953 #### [facility] [address] [place] [address] Monocytes/100 WBC (Bld) 6.7 % Normal 4.0-14.0 [facility] Comment on above: Performed By: #### 7 42700813, 5080729, 83700029, 7871118 #### [facility] [address] [place] [address] Neutro Absolute 11.5 E9/L High 2.0-7.5 [facility] Comment on above: Performed By: #### 7 08322328, 8749633, 27188685, 4058541 #### [facility] [address] [place] [address] Neutro Auto 73.2 % Normal 36.0-75.0 [facility] Comment on above: Performed By: #### 7 92820723, 8479157, 07255623, 9773638 #### [facility] [address] [place] [address] Platelet 549.0 E9/L High 150.0-500. 0 [facility] Comment on above: Performed By: #### 7 25982955, 5642287, 96113887, 7116829 #### [facility] [address] [place] [address] Platelet mean volume (Bld) [Entitic vol] 7.7 fL Normal 6.4-10.8 [facility] Comment on above: Performed By: #### 7 20932116, 2272672, 42390870, 2345607 #### [facility] [address] [place] [address] RBC 4.2 E12/L Low 4.3-5.9 [facility] Comment on above: Performed By: #### 7 49664910, 5037156, 16694292, 8138221 #### [facility] [address] [place] [address] WBC 15.7 E9/L High 4.0-11.0 [facility] Comment on above: Performed By: #### 7 32622326, 7030115, 89669188, 0935286 #### [facility] [address] [place] [address] CMPon 10-13-2023 Albumin [Mass/Vol] 3.9 g/dL Normal 3.3-5.0 [facility] Comment on above: Performed By: #### 7 21389210, 2246847, 79800005, 8721362 #### [facility] [address] [place] [address] Albumin/Globulin [Mass ratio] 1.5 {ratio} Normal 1.1-2.2 [facility] Comment on above: Performed By: #### 7 80800128, 5465140, 77492678, 8440089 #### [facility] [address] [place] [address] Alk Phos 82 Int._Unit/L Normal 21-98 [facility] Comment on above: Performed By: #### 7 80178218, 2184936, 02854271, 9044535 #### [facility] [address] [place] [address] ALT 15 Int._Unit/L Normal 6-46 [facility] Comment on above: Performed By: #### 7 91476609, 4821715, 79162723, 2807449 #### [facility] [address] [place] [address] Anion gap [Moles/Vol] 17 mmol/L High 6-16 [facility] Comment on above: Performed By: #### 7 64669393, 4892191, 67522943, 7004499 #### [facility] [address] [place] [address] AST 9 Int._Unit/L Normal 5-43 [facility] Comment on above: Performed By: #### 7 70449782, 3765893, 76512846, 9494760 #### [facility] [address] [place] [address] Bili Total 0.3 mg/dL Normal 0.0-1.1 [facility] Comment on above: Performed By: #### 7 49339778, 1243633, 78402051, 0031244 #### [facility] [address] [place] [address] BUN/Creat Ratio 15 No Units Normal 10-20 [facility] Comment on above: Performed By: #### 7 88028421, 9311846, 08700459, 2965060 #### [facility] [address] [place] [address] Calcium [Mass/Vol] 9.1 mg/dL Normal 8.9-11.1 [facility] Comment on above: Performed By: #### 7 39459902, 1086039, 60873343, 3535726 #### [facility] [address] [place] [address] Chloride [Moles/Vol] 102 mmol/L Normal 101-111 [facility] Comment on above: Performed By: #### 7 09975573, 2031686, 99929901, 1449193 #### [facility] [address] [place] [address] CO2 [Moles/Vol] 21 mmol/L Normal 21-31 [facility] Comment on above: Performed By: #### 7 95503237, 6234366, 57585367, 4254637 #### [facility] [address] [place] [address] Creatinine [Mass/Vol] 2.1 mg/dL High 0.5-1.3 [facility] Comment on above: Performed By: #### 7 10644954, 8624501, 04116913, 4362166 #### [facility] [address] [place] [address] Globulin (S) [Mass/Vol] 2.6 g/dL Normal 1.4-4.0 [facility] Comment on above: Performed By: #### 7 00550249, 5111403, 45267743, 4153140 #### [facility] [address] [place] [address] Glucose [Mass/Vol] 92 mg/dL Normal 55-199 [facility] Comment on above: Performed By: #### 7 19521572, 3897526, 19606025, 6877256 #### [facility] [address] [place] [address] Potassium [Moles/Vol] 4.6 mmol/L Normal 3.5-5.3 [facility] Comment on above: Performed By: #### 7 59265314, 7155368, 03001635, 7682556 #### [facility] [address] [place] [address] Protein [Mass/Vol] 6.5 g/dL Normal 6.0-7.8 [facility] Comment on above: Performed By: #### 7 17258964, 7116794, 04304268, 0188693 #### [facility] [address] [place] [address] Sodium [Moles/Vol] 135 mmol/L Normal 135-145 [facility] Comment on above: Performed By: #### 7 33421080, 1868101, 17428137, 3378270 #### [facility] [address] [place] [address] Urea nitrogen [Mass/Vol] 31 mg/dL High 5-21 [facility] Comment on above: Performed By: #### 7 81522757, 1953515, 71422736, 2724574 #### [facility] [address] [place] [address] Physician Orderon 10-13-2023 Physician Order [id number] Normal [facility] eGFRon 10-13-2023 eGFR 28 mL/min/1.73 m2 Low >=59 [facility] Comment on above: Order Comment: Order added by Discern Expert. Performed By: #### 7 05098891, 1208746, 54428480, 8489647 #### [facility] [address] [place] [address] MR lumbar spine wo conon MR lumbar spine wo con [address] [place] [address] MRI Report Signed Patient: Joselito Vidal MR#: [id number] : 1970 Acct:[id number] Age/Sex: 52 / F ADM Date: 06/18/23 Loc: MR Room: Type: [facility] Attending Dr: Dario Palacios DO Copies to: [...] Arianna Urena M.D.06/18/2023 8:28 PM Dictation Location: [facility]--02 Transcribed By: [facility] 06/18/232027 Dictated By: Arianna Urena MD 06/18/232010 Signed By: 06/18/232027 Normal [facility] XR hip RT min 2V(w/wo pelvis )*on 11-07-2022 XR hip RT min 2V(w/wo pelvis)* [facility] [employer] Other XR hip RT min 2V(w/wo pelvis)* [facility] [place] [employer] Other XR hip RT min 2V(w/wo pelvis)* [address] [place] [address] [employer] Other XR hip RT min 2V(w/wo pelvis)* [place] [address] [employer] Other XR hip RT min 2V(w/wo pelvis)* XRay Report [employer] Other XR hip RT min 2V(w/wo pelvis)* Signed [employer] Other XR hip RT min 2V(w/wo pelvis)* Patient: Joselito Vidal MR#: [id number] [employer] Other XR hip RT min 2V(w/wo pelvis)* 8563 [employer] Other XR hip RT min 2V(w/wo pelvis)* : 1970 Acct:[id number] [employer] Other XR hip RT min 2V(w/wo pelvis)* Age/Sex: 51 / F ADM Date: 11/07/22 [employer] Other XR hip RT min 2V(w/wo pelvis)* Loc: XDUCLY Room: Type: REG CLI [employer] Other XR hip RT min 2V(w/wo pelvis)* [facility]gram [facility] [employer] Other XR hip RT min 2V(w/wo pelvis)* Copies to: ELLIE INGRAM [facility] [employer] Other XR hip RT min 2V(w/wo pelvis)* Ordering Provider: ELLIE INGRAM [facility] [employer] Other XR hip RT min 2V(w/wo pelvis)* Date of Service: 11/07/22 [employer] Other XR hip RT min 2V(w/wo pelvis)* XR/XR hip RT min 2V(w/wo pelvis)*: Right hip pain [employer] Other XR hip RT min 2V(w/wo pelvis)* Single view pelvis and 2 views of the right hip plain film [employer] Other XR hip RT min 2V(w/wo pelvis)* COMPARISON:None [employer] Other XR hip RT min 2V(w/wo pelvis)* HISTORY:Right hip pain for one year. [employer] Other XR hip RT min 2V(w/wo pelvis)* ACUTE FINDINGS:None [employer] Other XR hip RT min 2V(w/wo pelvis)* DEGENERATIVE CHANGE:Unremarkable [employer] Other XR hip RT min 2V(w/wo pelvis)* SOFT TISSUE FINDINGS:Unremarkable [employer] Other XR hip RT min 2V(w/wo pelvis)* JOINT EFFUSION:None [employer] Other XR hip RT min 2V(w/wo pelvis)* POSTOP CHANGES:None [employer] Other XR hip RT min 2V(w/wo pelvis)* BONY MINERALIZATION:Adequate [employer] Other XR hip RT min 2V(w/wo pelvis)* XR/XR hip RT min 2V(w/wo pelvis)* [employer] Other XR hip RT min 2V(w/wo pelvis)* IMPRESSION:Unremarkable exam [employer] Other XR hip RT min 2V(w/wo pelvis)* Impression dictated by: Juan Adair M.D.11/07/2022 11:54 AM [employer] Other XR hip RT min 2V(w/wo pelvis)* Dictation Location: [place] [address] [employer] Other XR hip RT min 2V(w/wo pelvis)* Transcribed By: PWS 11/07/22 [facility] [employer] Other XR hip RT min 2V(w/wo pelvis)* Dictated By: Juan Adair DO 11/07/22 [facility] [employer] Other XR hip RT min 2V(w/wo pelvis)* Signed By: [employer] Other XR hip RT min 2V(w/wo pelvis)* 11/07/22 [facility] [employer] Other XR knee RT 4V*on 11-03-2022 XR knee RT 4V* [facility] [employer] Other XR knee RT 4V* [facility] [employer] Other XR knee RT 4V* [address] [place] [address] [employer] Other XR knee RT 4V* [place] [address] No rt [employer] Other XR knee RT 4V* XRay Report [employer] Other XR knee RT 4V* Signed [email or web address] Other XR knee RT 4V* Patient: Genevieve Vidal MR#: [id number] [employer] Other XR knee RT 4V* 3649 [email or web address] Other XR knee RT 4V* : 1970 Acct:[id number] [employer] Other XR knee RT 4V* Age/Sex: 51 / F ADM Date: 11/03/22 [employer] Other XR knee RT 4V* Loc: XDUCLY Room: pe: REG CLI [employer] Other XR knee RT 4V* Attending Dr: Susana LIZ [employer] Other XR knee RT 4V* Copies to: AGUSTO Aviles [employer] Other XR knee RT 4V* Ordering Provider: AGUSTO Hernández [employer] Other XR knee RT 4V* Date of Service: 11/03/22 [employer] Other XR knee RT 4V* XR/XR knee RT 4V*: Acute pain of right knee [employer] Other XR knee RT 4V* RIGHT KNEE - 4 views [employer] Other XR knee RT 4V* CLINICAL HISTORY: Ri ght knee pain for the past 2 weeks. No recent injury. [employer] Other XR knee RT 4V* COMPARISON: None [employer] Other XR knee RT 4V* AP, lateral and both oblique views were obtained. There is no evidence of fracture or dislocation. [employer] Other XR knee RT 4V* No disproportionate joint space narrowing is present. There is minimal marginal spurring. Fluid [employer] Other XR knee RT 4V* is present at the suprapatellar bursa. [employer] Other XR knee RT 4V* X R/XR knee RT 4V* [employer] Other XR knee RT 4V* IMPRESSION: [employer] Other XR knee RT 4V* MINOR DEGENERATIVE CHANGE. [employer] Other XR knee RT 4V* JOINT EFFUSION. [employer] Other XR knee RT 4V* NO ACUTE BONY FINDINGS. [employer] Other XR knee RT 4V* Impression dictated by: Arianna Urena M.D.11/03/2022 2:56 PM [employer] Other XR knee RT 4V* Dictation Location: [place] [address] [employer] Other XR knee RT 4V* Transcribed By: SUKHDEV 11/03/22 [facility] [employer] Other XR knee RT 4V* Dictated By: Arianna Urena MD 11/03/22 [facility] [employer] Other XR knee RT 4V* Signed By: [email or web address] Other XR knee RT 4V* 11/03/22 [employer] Other Albumin [Mass/volume] in Ser um or PlasmaOrdered By: PROVIDER TEMP on 10-08-2022 Albumin [Mass/Vol] 3.5 g/dL 3.2-5.5 [facility] [facility] Auto (Bld) [#/Vol] Ordered By: PROVIDER TEMP on 10-08-2022 Basophils (Bld) [#/Vol] 0.1 10*3/uL 0.0-0.2 [facility] Basophils/100 WBC Auto (Bld) Ordered By: PROVIDER TEMP on 10-08-2022 Basophils/100 WBC (Bld) 0.6 % . [facility] Creatine kinase [Enzymatic a ctivity/volume] in Serum or PlasmaOrdered By: PROVIDER TEMP on 10-08-2022 CK [Catalytic activity/Vol] 65 U/L 22-269 [facility] Creatinine and Glomerular fi ltration rate.predicted panel (S/P/Bld)Ordered By: PROVIDER TEMP on 10-08-2022 Creatinine [Mass/Vol] 0.89 mg/dL 0.44-1.03 [facility] Eosinophils Auto (Bld) [#/Vo l]Ordered By: PROVIDER TEMP on 10-08-2022 Eosinophils (Bld) [#/Vol] 0.2 10*3/uL 0.0-0.45 [facility] Eosinophils/100 WBC Auto (Bl d)Ordered By: PROVIDER TEMP on 10-08-2022 Eosinophils/100 WBC (Bld) 1.0 % . [facility] Erythrocyte distribution wid th Auto (RBC) [Ratio]Ordered By: PROVIDER TEMP on 10-08-2022 Erythrocyte distribution width (RBC) [Ratio] 13.9 % 11.9-15.3 [facility] Estimated glomerular filtrat ion rate (GFR) non- AmericanOrdered By: PROVIDER TEMP on 10-08-2022 GFR/1.73 sq M.predicted among non-blacks MDRD (S/P/Bld) [Vol rate/Area] > 60 mL/Min [facility] Globulin Calc (S) [Mass/Vol] Ordered By: PROVIDER TEMP on 10-08-2022 Globulin (S) [Mass/Vol] 3.1 g/dL [facility] Hematocrit Auto (Bld) [Volum e fraction]Ordered By: PROVIDER TEMP on 10-08-2022 Hematocrit (Bld) [Volume fraction] 45.1 % 34.0-46.4 [facility] Hemoglobin [Mass/volume] in BloodOrdered By: PROVIDER TEMP on 10-08-2022 Hemoglobin (Bld) [Mass/Vol] 14.9 g/dL 11.8-15.4 [facility] Laboratory - Chemistry and C hemistry - challengeOrdered By: Edie Bolton on 10-08-2022 Natriuretic peptide B (Bld) [Mass/Vol] 15.0 pg/mL 5-100 [facility] Leukocytes [#/volume] correc aleksey for nucleated erythrocytes in Blood by Automated counOrdered By: PROVIDER TEMP on 10-08-2022 WBC corrected for nucl RBC Auto (Bld) [#/Vol] 15.5 10*3/uL 3.8-11.6 [facility] Lymphocytes Auto (Bld) [#/Vo l]Ordered By: PROVIDER TEMP on 10-08-2022 Lymphocytes (Bld) [#/Vol] 4.6 10*3/uL 1.00-4.8 [facility] Lymphocytes/100 WBC Auto (Bl d)Ordered By: PROVIDER TEMP on 10-08-2022 Lymphocytes/100 WBC (Bld) 29.9 % . [facility] MCH Auto (RBC) [Entitic mass ]Ordered By: PROVIDER TEMP on 10-08-2022 MCH (RBC) [Entitic mass] 30.8 pg 24.7-34.3 [facility] MCHC Auto (RBC) [Mass/Vol]Or dered By: PROVIDER TEMP on 10-08-2022 MCHC (RBC) [Mass/Vol] 33.0 g/dL 32.0-35.0 [facility] MCV Auto (RBC) [Entitic vol] Ordered By: PROVIDER TEMP on 10-08-2022 MCV (RBC) [Entitic vol] 93.5 fL 80-100 [facility] Monocyte distribution width [Entitic volume] in Blood by AutomatedOrdered By: PROVIDER TEMP on 10-08-2022 Monocyte distribution width Auto (Bld) [Entitic vol] 15.04 % 0.00-20.00 [facility] Monocytes Auto (Bld) [#/Vol] Ordered By: PROVIDER TEMP on 10-08-2022 Monocytes (Bld) [#/Vol] 1.1 10*3/uL 0.0-0.8 [facility] Monocytes/100 WBC Auto (Bld) Ordered By: PROVIDER TEMP on 10-08-2022 Monocytes/100 WBC (Bld) 7.1 % . [facility] Neutrophils Auto (Bld) [#/Vo l]Ordered By: PROVIDER TEMP on 10-08-2022 Neutrophils (Bld) [#/Vol] 9.5 10*3/uL 1.8-7.7 [facility] Neutrophils/100 WBC Auto (Bl d)Ordered By: PROVIDER TEMP on 10-08-2022 Neutrophils/100 WBC (Bld) 61.4 % . [facility] No Panel InformationOrdered By: PROVIDER TEMP on 10-08-2022 Estimated GFR () > 60 mL/Min [facility] Comment on above: GFR estimated refere nce range: According to KDOQI guidelines, <60 ml/min/1.73m2 is sufficient to diagnose a patient with chronic kidney disease. Pharmacy Creatinine Clearance (Chem 91.28 [facility] Nucleated erythrocytes [Pres ence] in Blood by Automated countOrdered By: PROVIDER TEMP on 10-08-2022 Nucleated RBC Auto Ql (Bld) 0.1 /100{WBC} 0-0.5 [facility] Platelet mean volume Auto (B ld) [Entitic vol]Ordered By: PROVIDER TEMP on 10-08-2022 Platelet mean volume (Bld) [Entitic vol] 7.1 fL 6.3-10.7 [facility] Platelets Auto (Bld) [#/Vol] Ordered By: PROVIDER TEMP on 10-08-2022 Platelets (Bld) [#/Vol] 357 10*3/uL 150-450 [facility] Protein [Mass/volume] in Ser um or PlasmaOrdered By: PROVIDER TEMP on 10-08-2022 Protein [Mass/Vol] 6.6 g/dL 6.1-7.9 [facility] RBC Auto (Bld) [#/Vol]Ordere d By: PROVIDER TEMP on 10-08-2022 RBC (Bld) [#/Vol] 4.83 10*6/uL 3.60-5.00 [facility] Serum or plasma alanine blanco otransferase measurement without P-5'-P (enzymatic activiOrdered By: PROVIDER TEMP on 10-08-2022 ALT No additional P-5'-P [Catalytic activity/Vol] 22 U/L 10-60 [facility] Serum or plasma albumin/glob ulin mass ratioOrdered By: PROVIDER TEMP on 10-08-2022 Albumin/Globulin [Mass ratio] 1.1 {ratio} [facility] Serum or plasma alkaline shyla sphatase measurement (enzymatic activity/volume)Ordered By: PROVIDER TEMP on 10-08-2022 ALP [Catalytic activity/Vol] 76 U/L 32-92 [facility] Serum or plasma anion gap de terminationOrdered By: PROVIDER TEMP on 10-08-2022 Anion gap [Moles/Vol] 10.6 mmol/L 6.0-15.0 [facility] Serum or plasma aspartate am inotransferase measurement (enzymatic activity/volume)Ordered By: PROVIDER TEMP on 10-08-2022 AST [Catalytic activity/Vol] 14 U/L 10-42 [facility] Serum or plasma calcium rocío urement (mass/volume)Ordered By: PROVIDER TEMP on 10-08-2022 Calcium [Mass/Vol] 8.5 mg/dL 8.2-10.2 [facility] Serum or plasma chloride martin surement (moles/volume)Ordered By: PROVIDER TEMP on 10-08-2022 Chloride [Moles/Vol] 101 mmol/L 95-114 [facility] Serum or plasma creatine kin ase MB (CKMB)/total creatine kinase (CK) ratio by calculaOrdered By: PROVIDER TEMP on 10-08-2022 CK.MB Calc [Catalytic fraction] 1.8 % 0.00-2.50 [facility] Serum or plasma creatine kin ase MB measurement (mass/volume)Ordered By: PROVIDER TEMP on 10-08-2022 CK.MB [Mass/Vol] 1.2 ng/mL 0.6-6.3 [facility] Serum or plasma glucose rocío urement (mass/volume)Ordered By: PROVIDER TEMP on 10-08-2022 Glucose [Mass/Vol] 112 mg/dL 70-100 [facility] Comment on above: ADA recommended refe rence rangeRandom Glucose Reference Range is dependent on time and content of last meal. Glucose of more than 200 mg/dL in a nonstressed, ambulatory subject supports the diagnosis of Diabetes Mellitus. Serum or plasma potassium me asurement (moles/volume)Ordered By: PROVIDER TEMP on 10-08-2022 Potassium [Moles/Vol] 3.4 mmol/L 3.5-5.1 [facility] Serum or plasma sodium measu rement (moles/volume)Ordered By: PROVIDER TEMP on 10-08-2022 Sodium [Moles/Vol] 135 mmol/L 136-146 [facility] Serum or plasma total biliru bin measurement (mass/volume)Ordered By: PROVIDER TEMP on 10-08-2022 Bilirubin [Mass/Vol] 0.5 mg/dL 0.3-1.2 [facility] Serum or plasma total carbon dioxide measurement (moles/volume)Ordered By: PROVIDER TEMP on 10-08-2022 CO2 [Moles/Vol] 26.8 mmol/L 22.0-30.0 [facility] Serum or plasma urea nitroge n measurement (mass/volume)Ordered By: PROVIDER TEMP on 10-08-2022 Urea nitrogen [Mass/Vol] 13 mg/dL 9- [facility] Troponin I.cardiac [Mass/vol ume] in Serum or Plasma by High sensitivity methodOrdered By: PROVIDER TEMP on 10-08-2022 Troponin I.cardiac High sensitivity method [Mass/Vol] 3 pg/mL 0-15 [facility] WBC Auto (Bld) [#/Vol]Ordere d By: PROVIDER TEMP on 10-08-2022 WBC (Bld) [#/Vol] 15.5 10*3/uL 3.8-11.6 [facility] XR chest 2V*on 10-01-2022 XR chest 2V* [facility] [employer] Other XR chest 2V* [facility] [employer] Other XR chest 2V* [address] [facility] [employer] Other XR chest 2V* [place] [address] [facility] [employer] Other XR chest 2V* XRay [facility] [employer] Other XR chest 2V* Signed [employer] Other XR chest 2V* Patient: Genevieve Vidal MR#: [id number] [employer] Other XR chest 2V* [address] [employer] Other XR chest 2V* : 1970 Acct:[id number] [employer] Other XR chest 2V* Age/Sex: 51 / F ADM Date: 10/01/22 [employer] Other XR chest 2V* Loc: XDCLY Room: [facility] [employer] Other XR chest 2V* Attending Dr: Emery Ingram [facility] [employer] Other XR chest 2V* Copies to: ELLIE INGRAM [facility] [employer] Other XR chest 2V* Ordering Provider: ELLIE INGRAM [facility] [employer] Other XR chest 2V* Date of Service: 10/01/22 [employer] Other XR chest 2V* XR/XR chest 2V*: COUGH [employer] Other XR chest 2V* Chest 2 views [employer] [facility] [employer] Other XR chest 2V* CLINICAL HISTORY: Dr arteaga cough, hoarseness, shortness of breath, wheezing, upper middle back pain for 3 [employer] Other XR chest 2V* weeks. [employer] Other XR chest 2V* COMPARISON: None [employer] Other XR chest 2V* FINDINGS: [employer] Other XR chest 2V* Heart normal in size . Mild left lower lobe linear atelectasis/scarring. No consolidation [employer] Other XR chest 2V* pneumothorax pleural effusion or free air. [employer] Other XR chest 2V* X R/XR chest 2V* [employer] Other XR chest 2V* IMPRESSION: [employer] Other XR chest 2V* MILD LEFT LOWER LOBE LINEAR ATELECTASIS/SCARRING. NO CONSOLIDATION TO SUGGEST PNEUMONIA. [employer] Other XR chest 2V* Impression dictated by: Brice Taylor Jr., D.OTracee10/01/2022 3:33 PM [employer] Other XR chest 2V* Dictation Location: [place] [address] [employer] Other XR chest 2V* Transcribed By: SUKHDEV 10/01/22 [facility] [employer] Other XR chest 2V* Dictated By: Brice Taylor Jr, DO 10/01/22 [facility] [employer] Other XR chest 2V* Signed By: [employer] Other XR chest 2V* 10/01/22 [facility] [employer] Other A1C HEMOGLOBINon 09-30-2022 HbA1c (Bld) [Mass fraction] 6.1 % [employer] Other HbA1c (Bld) [Mass fraction]o n 09-30-2022 A1C HEMOGLOBIN [email or web address] Other PROF CHEM 8 (BAS METB)on Anion gap [Moles/Vol] 17.9 mmol/L Normal [facility] Comment on above: Performed By: #### B MP #### [facility] [address] [place] [address] Dr. Isabel Wolfe Calcium [Mass/Vol] 9.1 mg/dL Normal 8.5-10.1 [facility] Comment on above: Performed By: #### B MP #### [facility] [address] [address] [address] Isabel Wolfe Chloride [Moles/Vol] 103 mmol/L Normal 98-107 [facility] Comment on above: Performed By: #### B MP #### [facility] [address] [address] [address] Isabel Wolfe CO2 [Moles/Vol] 22.9 mmol/L Normal 21.0-32.0 [facility] Comment on above: Performed By: #### B MP #### [facility] [address] [address] [address] Isabel Wolfe Creatinine [Mass/Vol] 0.92 mg/dL Normal 0.55-1.02 [facility] Comment on above: Performed By: #### B MP #### [facility] [address] [address] [address] Isabel Wolfe EGFR-AF [place]ER >60 Normal >=60 [facility] Comment on above: Performed By: #### B MP #### [facility] [address] [address] [address] Isabel Wolfe EGFR-NON AF [place] >60 Normal >=60 [facility] Comment on above: Performed By: #### B MP #### [facility] [address] [address] [address] Isabel Wolfe Glucose [Mass/Vol] 178 mg/dL Critically high 74-106 [facility] Comment on above: Performed By: #### B MP #### [facility] [address] [address] [address] Isabel Wolfe Potassium [Moles/Vol] 3.8 mmol/L Normal 3.5-5.1 [facility] Comment on above: Performed By: #### B MP #### [facility] [address] [address] [address] Isabel Wolfe Sodium [Moles/Vol] 140 mmol/L Normal 136-145 [facility] Comment on above: Performed By: #### B MP #### [facility] [address] [place], [place] [address] Dr. Isabel Wolfe Urea nitrogen [Mass/Vol] 11.0 mg/dL Normal 7.0-18.0 [facility] Comment on above: Performed By: #### B MP #### [facility] [address] [place], [place] [address] Dr. Isabel Wolfe Urea nitrogen/Creatinine [Mass ratio] 12.0 mg/mg Normal [facility] Comment on above: Performed By: #### B MP #### [facility] [address] [place], [place] [address] Dr. Isabel Wolfe COVID + FLU Quick Testingon 09-20-2022 SARS-CoV-2 (COVID-19) RNA PIPER+probe Ql (Unsp spec) Negative [facility] [employer] Other COVID + FLU Quick Testing Negative [employer] [facility] [employer] Other Quick Strepon 09-20-2022 S. pyogenes Org specific cx Ql (Throat) Negative [facility] [employer] Other Quick Strep [employer] [facility] [employer] Other Automated erythrocytes count in urine sediment (number/area)Ordered By: Reinaldo Mehta on 09-10-2022 RBC Auto (Urine sed) [#/Area] 1-2 [HPF] 0-4 [facility] Automated leukocytes count i n urine sediment (number/area)Ordered By: Reinaldo Mehta on 09-10-2022 WBC Auto (Urine sed) [#/Area] 3-4 [HPF] 0-4 [facility] Basophils Auto (Bld) [#/Vol] Ordered By: Reinaldo Mehta on 09-10-2022 Basophils (Bld) [#/Vol] 0.1 10*3/uL 0.0-0.2 [facility] Basophils/100 WBC Auto (Bld) Ordered By: Reinaldo Mehta on 09-10-2022 Basophils/100 WBC (Bld) 0.6 % . [facility] Bilirubin Test strip Ql (U)O rdered By: Reinaldo Mehta on 09-10-2022 Bilirubin Ql (U) Negative Negative [facility] Body fluid albumin measureme nt (mass/volume)Ordered By: Reinaldo Mehta on 09-10-2022 Albumin (Body fld) [Mass/Vol] 3.6 g/dL 3.2-5.5 [facility] Color Auto (U)Ordered By: Shady Mehta on 09-10-2022 Color (U) Yellow Yellow [facility] Creatinine and Glomerular fi ltration rate.predicted panel (S/P/Bld)Ordered By: Reinaldo Mehta on 09-10-2022 Creatinine [Mass/Vol] 0.84 mg/dL 0.44-1.03 [facility] Direct bilirubin measurement Ordered By: Reinaldo Mehta on 09-10-2022 Bilirubin.direct [Mass/Vol] 0.1 mg/dL 0.0-0.4 [facility] Eosinophils Auto (Bld) [#/Vo l]Ordered By: Reinaldo Mehta on 09-10-2022 Eosinophils (Bld) [#/Vol] 0.2 10*3/uL 0.0-0.45 [facility] Eosinophils/100 WBC Auto (Bl d)Ordered By: Reinaldo Mehta on 09-10-2022 Eosinophils/100 WBC (Bld) 1.6 % . [facility] Erythrocyte distribution wid th Auto (RBC) [Ratio]Ordered By: Reinaldo Mehta on 09-10-2022 Erythrocyte distribution width (RBC) [Ratio] 13.6 % 11.9-15.3 [facility] Estimated glomerular filtrat ion rate (GFR) non- AmericanOrdered By: Reinaldo Mehta on 09-10-2022 GFR/1.73 sq M.predicted among non-blacks MDRD (S/P/Bld) [Vol rate/Area] > 60 mL/Min [facility] Globulin Calc (S) [Mass/Vol] Ordered By: Reinaldo Mehta on 09-10-2022 Globulin (S) [Mass/Vol] 3.1 g/dL [facility] Hematocrit Auto (Bld) [Volum e fraction]Ordered By: Reinaldo Mehta on 09-10-2022 Hematocrit (Bld) [Volume fraction] 40.7 % 34.0-46.4 [facility] Hemoglobin [Mass/volume] in BloodOrdered By: Reinaldo Mehta on 09-10-2022 Hemoglobin (Bld) [Mass/Vol] 13.5 g/dL 11.8-15.4 [facility] Ketones Auto test strip (U) [Mass/Vol]Ordered By: Reinaldo Mehta on 09-10-2022 Ketones (U) [Mass/Vol] Trace Negative Fi [facility] Laboratory - Chemistry and C hemistry - challengeOrdered By: Reinaldo Mehta on 09-10-2022 Lipase [Catalytic activity/Vol] 41.0 U/L 22-51 [facility] Laboratory - CoagulationOrde red By: Reinaldo Mehta on 09-10-2022 PT Coag (PPP) [Time] 13.6 s 9.0-12.9 [facility] - UrinalysisOrder ed By: Reinaldo Mehta on 09-10-2022 Hyaline casts LM Ql (Urine sed) 0-8 [LPF] 0-8 [facility] Leukocytes [#/volume] correc aleksey for nucleated erythrocytes in Blood by Automated counOrdered By: Reinaldo Mehta on 09-10-2022 WBC corrected for nucl RBC Auto (Bld) [#/Vol] 11.7 10*3/uL 3.8-11.6 [facility] Lymphocytes Auto (Bld) [#/Vo l]Ordered By: Reinaldo Mehta on 09-10-2022 Lymphocytes (Bld) [#/Vol] 3.5 10*3/uL 1.00-4.8 [facility] Lymphocytes/100 WBC Auto (Bl d)Ordered By: Reinaldo Mehta on 09-10-2022 Lymphocytes/100 WBC (Bld) 29.7 % . [facility] MCH Auto (RBC) [Entitic mass ]Ordered By: Reinaldo Mehta on 09-10-2022 MCH (RBC) [Entitic mass] 30.5 pg 24.7-34.3 [facility] MCHC Auto (RBC) [Mass/Vol]Or dered By: Renialdo Mehta on 09-10-2022 MCHC (RBC) [Mass/Vol] 33.2 g/dL 32.0-35.0 [facility] MCV Auto (RBC) [Entitic vol] Ordered By: Reinaldo Mehta on 09-10-2022 MCV (RBC) [Entitic vol] 91.9 fL 80-100 [facility] Monocyte distribution width [Entitic volume] in Blood by AutomatedOrdered By: Reinaldo Mehta on 09-10-2022 Monocyte distribution width Auto (Bld) [Entitic vol] 18.22 % 0.00-20.00 [facility] Monocytes Auto (Bld) [#/Vol] Ordered By: Reinaldo Mehta on 09-10-2022 Monocytes (Bld) [#/Vol] 0.8 10*3/uL 0.0-0.8 [facility] Monocytes/100 WBC Auto (Bld) Ordered By: Reinaldo Mehta on 09-10-2022 Monocytes/100 WBC (Bld) 6.7 % . [facility] Neutrophils Auto (Bld) [#/Vo l]Ordered By: Reinaldo Mehta on 09-10-2022 Neutrophils (Bld) [#/Vol] 7.2 10*3/uL 1.8-7.7 [facility] Neutrophils/100 WBC Auto (Bl d)Ordered By: Reinaldo Mehta on 09-10-2022 Neutrophils/100 WBC (Bld) 61.4 % . [facility] Nitrite Test strip Ql (U)Ord ered By: Reinaldo Mehta on 09-10-2022 Nitrite Ql (U) Negative Negative [facility] No Panel InformationOrdered By: Reinaldo Mehta on 09-10-2022 Estimated GFR () > 60 mL/Min [facility] Comment on above: GFR estimated refere nce range: According to KDOQI guidelines, <60 ml/min/1.73m2 is sufficient to diagnose a patient with chronic kidney disease. Pharmacy Creatinine Clearance (Chem 101.87 [facility] Nucleated erythrocytes [Pres ence] in Blood by Automated countOrdered By: Reinaldo Mehta on 09-10-2022 Nucleated RBC Auto Ql (Bld) 0.0 /100{WBC} 0-0.5 [facility] Platelet mean volume Auto (B ld) [Entitic vol]Ordered By: Reinaldo Mehta on 09-10-2022 Platelet mean volume (Bld) [Entitic vol] 7.7 fL 6.3-10.7 [facility] Platelet poor plasma interna tional normalized ratio (INR) by coagulation assay (relatOrdered By: Reinaldo Mehta on 09-10-2022 INR Coag (PPP) [Relative time] 1.2 {INR} [facility] Comment on above: INR Therapeutic Rang [...] 09-10-2022 Platelets (Bld) [#/Vol] 367 10*3/uL 150-450 [facility] Protein Auto test strip (U) [Mass/Vol]Ordered By: Reinaldo Mehta on 09-10-2022 Protein (U) [Mass/Vol] Trace mg/dL Negative [facility] Protein [Mass/volume] in Ser um or PlasmaOrdered By: Reinaldo Mehta on 09-10-2022 Protein [Mass/Vol] 6.7 g/dL 6.1-7.9 [facility] RBC Auto (Bld) [#/Vol]Ordere d By: Reinaldo Mehta on 09-10-2022 RBC (Bld) [#/Vol] 4.42 10*6/uL 3.60-5.00 [facility] Serum or plasma alanine blanco otransferase measurement without P-5'-P (enzymatic activiOrdered By: Reinaldo Mehta on 09-10-2022 ALT No additional P-5'-P [Catalytic activity/Vol] 16 U/L 10-60 [facility] Serum or plasma albumin/glob ulin mass ratioOrdered By: Reinaldo Mehta on 09-10-2022 Albumin/Globulin [Mass ratio] 1.2 {ratio} [facility] Serum or plasma alkaline shyla sphatase measurement (enzymatic activity/volume)Ordered By: Reinaldo Mehta on 09-10-2022 ALP [Catalytic activity/Vol] 89 U/L 32-92 [facility] Serum or plasma anion gap de terminationOrdered By: Reinaldo Mehta on 09-10-2022 Anion gap [Moles/Vol] 15.1 mmol/L 6.0-15.0 [facility] Serum or plasma aspartate am inotransferase measurement (enzymatic activity/volume)Ordered By: Reinaldo Mehta on 09-10-2022 AST [Catalytic activity/Vol] 15 U/L 10-42 [facility] Serum or plasma calcium rocío urement (mass/volume)Ordered By: Reinaldo Mehta on 09-10-2022 Calcium [Mass/Vol] 9.2 mg/dL 8.2-10.2 [facility] Serum or plasma chloride martin surement (moles/volume)Ordered By: Reinaldo Mehta on 09-10-2022 Chloride [Moles/Vol] 101 mmol/L 95-114 [facility] Serum or plasma glucose rocío urement (mass/volume)Ordered By: Reinaldo Mehta on 09-10-2022 Glucose [Mass/Vol] 91 mg/dL 70-100 [facility] Comment on above: ADA recommended refe rence rangeRandom Glucose Reference Range is dependent on time and content of last meal. Glucose of more than 200 mg/dL in a nonstressed, ambulatory subject supports the diagnosis of Diabetes Mellitus. Serum or plasma non-glucuron idated bilirubin measurement (mass/volume)Ordered By: Reinaldo Mehta on 09-10-2022 Bilirubin.indirect [Mass/Vol] 0.4 mg/dL [facility] Serum or plasma potassium me asurement (moles/volume)Ordered By: Reinaldo Mehta on 09-10-2022 Potassium [Moles/Vol] 2.9 mmol/L 3.5-5.1 [facility] Comment on above: Results calledat 192 1 on 09/10/22 Serum or plasma sodium measu rement (moles/volume)Ordered By: Reinaldo Mehta on 09-10-2022 Sodium [Moles/Vol] 137 mmol/L 136-146 [facility] Serum or plasma total biliru bin measurement (mass/volume)Ordered By: Reinaldo Mehta on 09-10-2022 Bilirubin [Mass/Vol] 0.5 mg/dL 0.3-1.2 [facility] Serum or plasma total carbon dioxide measurement (moles/volume)Ordered By: Reinaldo Mehta on 09-10-2022 CO2 [Moles/Vol] 23.8 mmol/L 22.0-30.0 [facility] Serum or plasma urea nitroge n measurement (mass/volume)Ordered By: Reinaldo Mehta on 09-10-2022 Urea nitrogen [Mass/Vol] 10 mg/dL 9- [facility] Specific gravity Auto test s trip (U) [Rel density]Ordered By: Reinaldo Mehta on 09-10-2022 Specific gravity (U) [Rel density] 1.025 1.001-1.03 0 [facility] Squamous epithelial cells de tection in urine sediment by light microscopyOrdered By: Reinaldo Mehta on 09-10-2022 Epithelial cells.squamous LM Ql (Urine sed) 1-2 [HPF] 0-2 [facility] Urine bacteria detection by automated methodOrdered By: Reinaldo Mehta on 09-10-2022 Bacteria Auto Ql (U) None seen None Seen [facility] Urine clarity by refractomet ry automatedOrdered By: Reinaldo Mehta on 09-10-2022 Clarity Refractometry automated (U) Clear Clear [facility] Urine glucose measurement by automated test strip (mass/volume)Ordered By: Reinaldo Mehta on 09-10-2022 Glucose Auto test strip (U) [Mass/Vol] Normal mg/dL Normal [facility] Urine hemoglobin detection b y automated test stripOrdered By: Reinaldo Mehta on 09-10-2022 Hemoglobin Auto test strip Ql (U) Negative Negative [facility] Urine leukocyte esterase det ection by automated test stripOrdered By: Reinaldo Mehta on 09-10-2022 Leukocyte esterase Auto test strip Ql (U) 1+ Negative [facility] Urobilinogen Auto test strip (U) [Mass/Vol]Ordered By: Reinaldo Mehta on 09-10-2022 Urobilinogen (U) [Mass/Vol] Normal mg/dL Normal [facility] WBC Auto (Bld) [#/Vol]Ordere d By: Reinaldo Mehta on 09-10-2022 WBC (Bld) [#/Vol] 11.7 10*3/uL 3.8-11.6 [facility] pH Auto test strip (U)Ordere d By: Reinaldo Mehta on 09-10-2022 pH (U) 6.0 [pH] 5.0-9.0 [facility] COVID/FLU RT-PCRon 2 SARS-CoV-2 (COVID-19) RNA PIPER+probe Ql (Unsp spec) Negative [facility] [employer] Other COVID/FLU RT-PCR Negative [facility] [employer] Other Quick Strepon 07-02-2022 S. pyogenes Org specific cx Ql (Throat) Negative [facility] [employer] Other Quick Strep [facility] [employer] Other FREE T4on 06-05-2022 Free T4 [Mass/Vol] 0.77 ng/dL Normal 0.76-1.46 [facility] Comment on above: Performed By: #### F T4 #### [facility] [address] [place] [address] Dr. Isabel Wolfe T4on 06-05-2022 T4 [Mass/Vol] 6.20 ug/dL Normal 4.80-13.90 [facility] Comment on above: Performed By: #### T 4, TSH #### [facility] [address] [address] [address] Isabel Wolfe TSHon 06-05-2022 TSH 0.845 uIU/mL Normal 0.358-3.74 0 [facility] Comment on above: Performed By: #### T 4, TSH #### [facility] [address] [address] [address] Isabel Wolfe MICROALBUMIN/ CREATININE RAT IOon 04-09-2022 Albumin, Urine 4.4 ug/mL Normal Not Estab. [facility] Comment on above: Performed By: #### M ALBCRL #### [facility] [address] [place] [address] Dr. Isabel Wolfe Albumin/ Creatinine Ratio 11 mg/g creat Normal 0-29 [facility] Comment on above: Result Comment: Norm al: 0 - 29 Moderately increased: 30 - 300 Severely increased: >300 Performed By: #### M ALBCRL #### [facility] [address] [address] [address] Isabel Wolfe Creatinine, Urine 41.2 mg/dL Normal Not Estab. [facility] Comment on above: Performed By: #### M ALBCRL #### [facility] [address] [address] [address] Isabel Wolfe GLYCOHEMOGLOBIN A1Con 2021 ADA RECOMMENDATION SEE BELOW Normal [facility] Comment on above: Result Comment: ADA RECOMMENDED LIMIT 4.0 - 6.0 ADA THERAPEUTIC TARGET < 7.0 ACTION SUGGESTED > 7.0 Performed By: #### A 1C #### [facility] [address] [address] [address] Isabel Wolfe Glucose [Mass/Vol] 117 mg/dL Normal [facility] Comment on above: Performed By: #### A 1C #### [facility] [address] [place] [address] Dr. Isabel Wolfe HbA1c (Bld) [Mass fraction] 5.7 % Normal 4.5-6.2 [facility] Comment on above: Performed By: #### A 1C #### [facility] [address] [address] [address] Isabel Wolfe LIPID PROFILEon 04-06-2022 CHOL-HDL RATIO NORM SEE BELOW Normal [facility] Comment on above: Result Comment: 3.3 - 4.4 LOW RISK 4.4 - 7.1 AVERAGE RISK 7.1 - 11.0 MODERATE RISK >11.0 HIGH RISK Performed By: #### L IPID, CMP #### [facility] [address] [address] [address] Isabel Wolfe Cholesterol [Mass/Vol] 165 mg/dL Normal <=200 Th [facility] Comment on above: Performed By: #### L IPID, CMP #### [facility] [address] [address] [address] Isabel Wolfe Cholesterol in HDL [Mass/Vol] 38 mg/dL Critically low 40-60 [facility] Comment on above: Performed By: #### L IPID, CMP #### [facility] [address] [address] [address] Isabel Wolfe Cholesterol in LDL [Mass/Vol] 110.0 mg/dL Normal [facility] Comment on above: Performed By: #### L IPID, CMP #### [facility] [address] [address] [address] Isabel Wolfe Cholesterol.total/Chol esterol in HDL [Mass ratio] 4.3 {ratio} Normal [facility] Comment on above: Performed By: #### L IPID, CMP #### [facility] [address] [address] [address] Isabel Wolfe HDL NORMAL > or = 60 mg/dl - LO W CARDIOVASCULAR RISK <40 mg/dl - HIGH CARDIOVASCULAR RISK Normal [facility] Comment on above: Performed By: #### L IPID, CMP #### [facility] [address] [address] [address] Isabel Wolfe LDL CALC NORMAL SEE BELOW Normal [facility] Comment on above: Result Comment: <100 mg/dl OPTIMAL 100 - 129 mg/dl NEAR OR ABOVE OPTIMAL 130 - 159 mg/dl BORDERLINE HIGH 160 - 189 mg/dl HIGH >190 mg/dl VERY HIGH Performed By: #### L IPID, CMP #### [facility] [address] [place] [address] Dr. Isabel Wolfe Triglyceride [Mass/Vol] 85 mg/dL Normal <=150 [facility] Comment on above: Performed By: #### L IPID, CMP #### [facility] [address] [address] [address] Isabel Wolfe VLDL CALC 17.0 mg/dL Normal [facility] Comment on above: Performed By: #### L IPID, CMP #### [facility] [address] [address] [address] sIabel Wolfe PROF 14(COMP METB)on 022 Albumin [Mass/Vol] 3.3 g/dL Critically low 3.4-5.0 [facility] Comment on above: Performed By: #### L IPID, CMP #### [facility] [address] [place] [address] Dr. Isabel Wolfe Albumin/Globulin [Mass ratio] 0.9 {ratio} Normal [facility] Comment on above: Performed By: #### L IPID, CMP #### [facility] [address] [address] [address] Isabel Wolfe ALP [Catalytic activity/Vol] 86 U/L Normal 46-116 [facility] Comment on above: Performed By: #### L IPID, CMP #### [facility] [address] [address] [address] Isabel Wolfe ALT [Catalytic activity/Vol] 17 U/L Normal 14-59 [facility] Comment on above: Performed By: #### L IPID, CMP #### [facility] [address] [place] [address] Dr. Isabel Wolfe Anion gap [Moles/Vol] 14.3 mmol/L Normal [facility] Comment on above: Performed By: #### L IPID, CMP #### [facility] [address] [place] [address] Dr. Isabel Wofle AST [Catalytic activity/Vol] 10 U/L Critically low 15-37 [facility] Comment on above: Performed By: #### L IPID, CMP #### [facility] [address] [place] [address] Dr. Isabel Wolfe Bilirubin [Mass/Vol] 0.5 mg/dL Normal 0.2-1.0 [facility] Comment on above: Performed By: #### L IPID, CMP #### [facility] [address] [place] [address] Dr. Isabel Wolfe Calcium [Mass/Vol] 9.0 mg/dL Normal 8.5-10.1 [facility] Comment on above: Performed By: #### L IPID, CMP #### [facility] [address] [place] [address] Dr. Isabel Wolfe Chloride [Moles/Vol] 104 mmol/L Normal 98-107 [facility] Comment on above: Performed By: #### L IPID, CMP #### [facility] [address] [place] [address] Dr. Isabel Wolfe CO2 [Moles/Vol] 25.8 mmol/L Normal 21.0-32.0 [facility] Comment on above: Performed By: #### L IPID, CMP #### [facility] [address] [address] [address] Isabel Wolfe Creatinine [Mass/Vol] 0.95 mg/dL Normal 0.55-1.02 [facility] Comment on above: Performed By: #### L IPID, CMP #### [facility] [address] [address] [address] Isabel Wolfe EGFR-AF [place]LANDER >60 Normal >=60 [facility] Comment on above: Performed By: #### L IPID, CMP #### [facility] [address] [place] [address] Dr. Isabel Wolfe EGFR-NON AF [place]ER >60 Normal >=60 [facility] Comment on above: Performed By: #### L IPID, CMP #### [facility] [address] [place] [address] Dr. Isabel Wolfe Globulin (S) [Mass/Vol] 3.6 g/dL Normal [facility] Comment on above: Performed By: #### L IPID, CMP #### [facility] [address] [place] [address] Dr. Isabel Wolfe Glucose [Mass/Vol] 101 mg/dL Normal 74-106 [facility] Comment on above: Performed By: #### L IPID, CMP #### [facility] [address] [place] [address] Dr. Isabel Wolfe Potassium [Moles/Vol] 4.1 mmol/L Normal 3.5-5.1 [facility] Comment on above: Performed By: #### L IPID, CMP #### [facility] [address] [place] [address] Dr. Isabel Wolfe Protein [Mass/Vol] 6.9 g/dL Normal 6.4-8.2 [facility] Comment on above: Performed By: #### L IPID, CMP #### [facility] [address] [place] [address] Dr. Isabel Wolfe Sodium [Moles/Vol] 140 mmol/L Normal 136-145 [facility] Comment on above: Performed By: #### L IPID, CMP #### [facility] [address] [place], [place] [address] Dr. Isabel Wolfe Urea nitrogen [Mass/Vol] 12.0 mg/dL Normal 7.0-18.0 [facility] Comment on above: Performed By: #### L IPID, CMP #### [facility] [address] [place], [place] [address] Dr. Isabel Wolfe Urea nitrogen/Creatinine [Mass ratio] 12.6 mg/mg Normal [facility] Comment on above: Performed By: #### L IPID, CMP #### [facility] [address] [place], [place] [address] Dr. Isabel Wolfe COVID Quick Testingon 2020 Result Negative [employer] Other MRI ELBOW LEFT WO CONTRASTon 08-10-2020 [...] Jay Umanzor MD 08/10/20 Final result Normal [facility] 1. High-grade partial-thickness tearing at the origin of the common extensor tendon with moderate underlying tendinosis. 2. Small joint effusion. No intra-articular loose body. 3. No acute osseous abnormality. [facility], [place] EXAMINATION: MRI OF THE LEFT ELBOW [...] collection identified within the visualized soft tissues. [facility] [place] [place] [facility], [facility] Incoming Radiant Results From [facility] - 08/10/2020 2:33 PM EST EXAMINATION: MRI [...] loose body. 3. No acute osseous abnormality. [place], [place] Vital Signs Date Time Vital Sign Value Performing Clinician [facility]-28-2025 14:42-0400 Body weight 121.56 kg Alexis ESCOBEDO Work Phone: [facility] 11-30-2024 12:26-0400 Body height 157.5 cm Martin Larios MD Work Phone: [facility] 11-30-2024 12:26-040 Body mass index (BMI) [Ratio] 46.2 kg/m2 Martin Larios MD Work Phone: [facility] 11-30-2024 12:26-0400 Body weight 114.58 kg Martin Larios MD Work Phone: [facility] 11-30-2024 12:26-0400 Diastolic blood pressure 74 mm[Hg] Martin Larios MD Work Phone: [facility] 11-30-2024 12:26-0400 Heart rate 70 /min Martin Larios MD Work Phone: [facility] 11-30-2024 12:26-0400 Systolic blood pressure 118 mm[Hg] Martin Larios MD Work Phone: [facility] 11-16-2024 11:01-0400 Diastolic blood pressure 80 mm[Hg] [facility] 1 [facility] 11-16-2024 11:01-0400 Heart rate 75 /min [address] 11-16-2024 11:01-0400 SaO2% (BldA) [Mass fraction] 97 % [address] 11-16-2024 11:01-0400 Systolic blood pressure 152 mm[Hg] [address] 10-19-2024 14:39-0500 Heart rate 64 /min YESENIA NKANSAH-AMANKRA [facility] 10-19-2024 14:39-0500 SaO2% (BldA) [Mass fraction] 96 % YESENIA NKANSAH-AMANKRA [facility] 10-19-2024 14:39-0500 Respiratory rate 18 /min YESENIA NKANSAH-AMANKRA [facility] 10-19-2024 14:39-0500 Diastolic blood pressure 88 mm[Hg] YESENIA NKANSAH-AMANKRA [facility] 10-19-2024 14:39-0500 Mean blood pressure 107 mm[Hg] YESENIA NKANSAH-AMANKRA [facility] 10-19-2024 14:39-0500 Systolic blood pressure 146 mm[Hg] YESENIA NKANSAH-AMANKRA [facility] 10-19-2024 14:39-0500 Blood Pressure Location YESENIA NKANSAH-AMANKRA [facility] 10-19-2024 13:26-0500 Heart rate 64 /min YESENIA NKANSAH-AMANKRA [facility] 10-19-2024 13:26-0500 SaO2% (BldA) [Mass fraction] 98 % YESENIA NKANSAH-AMANKRA [facility] 10-19-2024 13:26-0500 Respiratory rate 16 /min YESENIA NKANSAH-AMANKRA [facility] 10-19-2024 13:25-0500 Blood Pressure Location YESENIA NKANSAH-AMANKRA [facility] 10-19-2024 13:25-0500 Diastolic blood pressure 78 mm[Hg] YESENIA NKANSAH-AMANKRA [facility] 10-19-2024 13:25-0500 Mean blood pressure 96 mm[Hg] YESENIA NKANSAH-AMANKRA [facility] 10-19-2024 13:25-0500 Systolic blood pressure 133 mm[Hg] YESENIA NKANSAH-AMANKRA [facility] 10-19-2024 13:11-0500 Blood Pressure Location YESENIA NKANSAH-AMANKRA [facility] 10-19-2024 13:11-0500 Body temperature 97.52 [degF] YESENIA NKANSAH-AMANKRA [facility] 10-19-2024 13:11-0500 Diastolic blood pressure 90 mm[Hg] YESENIA NKANSAH-AMANKRA [facility] 10-19-2024 13:11-0500 Heart rate 64 /min YESENIA NKANSAH-AMANKRA [facility] 10-19-2024 13:11-0500 Respiratory rate 16 /min YESENIA NKANSAH-AMANKRA [facility] 10-19-2024 13:11-0500 SaO2% (BldA) [Mass fraction] 97 % YESENIA NKANSAH-AMANKRA [facility] 10-19-2024 13:11-0500 Systolic blood pressure 153 mm[Hg] YESENIA NKANSAH-AMANKRA [facility] 10-19-2024 13:01-0500 Respiratory rate 17 /min YESENIA NKANSAH-AMANKRA [facility] 10-19-2024 12:56-0500 Respiratory rate 12 /min YESENIA NKANSAH-AMANKRA [facility] 10-19-2024 12:46-0500 Body temperature 97.34 [degF] YESENIA NKANSAH-AMANKRA [facility] 10-19-2024 09:21-0500 Mean blood pressure 77 mm[Hg] YESENIA NKANSAH-AMANKRA [facility] 10-19-2024 09:18-0500 Respiratory rate 20 /min YESENIA NKANSAH-AMANKRA [facility] 10-19-2024 09:18-0500 Body temperature 98.06 [degF] YESENIA NKANSAH-AMANKRA [facility] 10-12-2024 14:01-0500 Diastolic blood pressure 79 mm[Hg] YESENIA NKANSAH-AMANKRA [facility] 10-12-2024 14:01-0500 Heart rate 71 /min YESENIA NKANSAH-AMANKRA [facility] 10-12-2024 14:01-0500 Mean blood pressure 93 mm[Hg] YESENIA NKANSAH-AMANKRA [facility] 10-12-2024 14:01-0500 Systolic blood pressure 120 mm[Hg] YESENIA NKANSAH-AMANKRA [facility] 10-12-2024 14:01-0500 Heart rate 70 /min YESENIA NKANSAH-AMANKRA [facility] 10-12-2024 14:01-0500 SaO2% (BldA) [Mass fraction] 100 % YESENIA NKANSAH-AMANKRA [facility] 10-12-2024 13:58-0500 Diastolic blood pressure 71 mm[Hg] YESENIA NKANSAH-AMANKRA [facility] 10-12-2024 13:58-0500 Mean blood pressure 83 mm[Hg] YESENIA NKANSAH-AMANKRA [facility] 10-12-2024 13:58-0500 Systolic blood pressure 109 mm[Hg] YESENIA NKANSAH-AMANKRA [facility] 10-09-2024 11:41-0500 Blood Pressure Location YESENIA NKANSAH-AMANKRA [facility] 10-09-2024 11:41-0500 Diastolic blood pressure 77 mm[Hg] YESENIA NKANSAH-AMANKRA [facility] 10-09-2024 11:41-0500 Heart rate 81 /min YESENIA NKANSAH-AMANKRA [facility] 10-09-2024 11:41-0500 Systolic blood pressure 107 mm[Hg] YESENIA NKANSAH-AMANKRA [facility] 08-09-2024 15:27-0500 Body weight 121.56 kg Dario Palacios DO Work Phone: [facility] 08-09-2024 15:27-0500 Diastolic blood pressure 84 mm[Hg] Mohitopher Suzanne DO Work Phone: [facility] 08-09-2024 15:27-0500 Heart rate 85 /min Christopher Suzanne DO Work Phone: [facility] 08-09-2024 15:27-0500 SaO2% (BldA) [Mass fraction] 95 % Christopher Suzanne DO Work Phone: [facility] 08-09-2024 15:27-0500 Systolic blood pressure 146 mm[Hg] Christopher Suzanne DO Work Phone: [facility] 07-31-2024 15:12-0500 Diastolic blood pressure 70 mm[Hg] Martin Larios MD Work Phone: [facility] 07-31-2024 15:12-0500 Heart rate 106 /min Martin Larios MD Work Phone: [facility] 07-31-2024 15:12-0500 SaO2% (BldA) [Mass fraction] 92 % Martin Larios MD Work Phone: [facility] 07-31-2024 15:12-0500 Systolic blood pressure 98 mm[Hg] Martin Larios MD Work Phone: [facility] 07-31-2024 14:34-0500 Body height 157.5 cm Martin Larios MD Work Phone: [facility] 07-31-2024 14:34-0500 Body mass index (BMI) [Ratio] 48.29 kg/m2 Martin Larios MD Work Phone: [facility] 07-31-2024 14:34-0500 Body weight 119.75 kg Martin Larios MD Work Phone: [facility] 03-15-2024 14:32-0400 Body height 158.75 cm MD Dario Olmedo Work Phone: [facility] 03-15-2024 14:32-0400 Body mass index (BMI) [Ratio] 47.3 kg/m2 MD Dario Olmedo Work Phone: [facility] 03-15-2024 14:32-0400 Body weight 119.29 kg MD Dario Olmedo Work Phone: [facility] 03-15-2024 14:32-0400 Diastolic blood pressure 77 mm[Hg] MD Dario Olmedo Work Phone: [facility] 03-15-2024 14:32-0400 Heart rate 88 /min MD Dario Olmedo Work Phone: [facility] 03-15-2024 14:32-0400 SaO2% (BldA) [Mass fraction] 94 % MD Dario Olmedo Work Phone: [facility] 03-15-2024 14:32-0400 Systolic blood pressure 125 mm[Hg] MD Dario Olmedo Work Phone: [facility] 02-15-2024 15:05-0400 Diastolic blood pressure 72 mm[Hg] [facility] [employer] [facility] [employer] 02-15-2024 15:05-0400 Systolic blood pressure 118 mm[Hg] Mloz [facility] [employer] [facility] [employer] 02-15-2024 13:59-0400 Body height 157.5 cm Mloz [facility] [employer] [facility] [employer] 02-15-2024 13:59-0400 Body mass index (BMI) [Ratio] 49.38 kg/m2 Mloz [facility] [employer] [facility] [employer] 02-15-2024 13:59-0400 Body temperature 97.59 [degF] Mloz C[facility]Arm [facility] [employer] 02-15-2024 13:59-0400 Body weight 122.47 kg Mloz C[facility] [employer] [facility] [employer] 01-19-2024 10:15-0400 Body height 160 cm [facility] 01-19-2024 10:15-0400 Body mass index (BMI) [Ratio] 48.32 kg/m2 [facility] 01-19-2024 10:15-0400 Body [facility]74 [facility] 01-19-2024 10:15-0400 Diastolic blood pressure 90 mm[Hg] [facility] 01-19-2024 10:15-0400 Systolic blood pressure 142 mm[Hg] [facility] 11-26-2023 11:04-0400 Body height 159.38 cm [facility] 11-26-2023 11:04-0400 Body mass index (BMI) [Ratio] 48.5 kg/m2 [facility] 11-26-2023 11:04-0400 Body weight 123.37 kg [facility] 11-26-2023 11:04-0400 Diastolic blood pressure 81 mm[Hg] [facility] 11-26-2023 11:04-0400 Heart rate 89 /min [facility] 11-26-2023 11:04-0400 SaO2% (BldA) [Mass fraction] 97 % [facility] 11-26-2023 11:04-0400 Systolic blood pressure 137 mm[Hg] [facility] 04-16-2023 13:10-0400 Body height 159.38 cm Kera Mccall Other [facility] [employer] Other 04-16-2023 13:10-0400 Body mass index (BMI) [Ratio] 48.06 kg/m2 Kera Mccall Other [employer] [facility] [employer] Other 04-16-2023 13:10-0400 Body temperature 97.8 [degF] Kera Mccall Other [employer] [facility] [employer] Other 04-16-2023 13:10-0400 Body weight 122.11 kg Kera Mccall Other [employer] Other 04-16-2023 13:10-0400 Respiratory rate 18 /min Kera Mccall Other [employer] Other 04-16-2023 13:10-0400 SaO2% (BldA) [Mass fraction] 96 % Kera Mccall Other [employer] Other 02-02-2023 10:00-0400 Body height 159.38 cm Clive Onealdiff Other [employer] Other 02-02-2023 10:00-0400 Body mass index (BMI) [Ratio] 48.06 kg/m2 Clive Onealdiff Other [employer] Other 02-02-2023 10:00-0400 Body weight 122.11 kg Clivekate Onealdiff Other [employer] Other 02-02-2023 10:00-0400 Diastolic blood pressure 73 mm[Hg] Clive Onealdiff Other [employer] Other 02-02-2023 10:00-0400 Respiratory rate 18 /min Clive Onealdiff Other [employer] Other 02-02-2023 10:00-0400 SaO2% (BldA) [Mass fraction] 98 % Clive Jamila Other [employer] Other 02-02-2023 10:00-0400 Systolic blood pressure 98 mm[Hg] Clive Marino Other [employer] Other 12-23-2022 15:00-0400 Body height 159.38 cm Dario Olmedo Other [employer] Other 12-23-2022 15:00-0400 Body mass index (BMI) [Ratio] 48.03 kg/m2 Dario Liceano Other [employer] Other 12-23-2022 15:00-0400 Body weight 122.02 kg Dario Orrdano Other [employer] Other 12-23-2022 15:00-0400 Diastolic blood pressure 84 mm[Hg] Dario Liceano Other [employer] Other 12-23-2022 15:00-0400 SaO2% (BldA) [Mass fraction] 100 % Dario Liceano Other [employer] Other 12-23-2022 15:00-0400 Systolic blood pressure 127 mm[Hg] Dario Liceano Other [employer] Other 12-14-2022 10:30-0400 Body height 159.38 cm Danya Helmler Other [employer] Other 12-14-2022 10:30-0400 Body mass index (BMI) [Ratio] 48.04 kg/m2 Danyaher Helmler Other [employer] Other 12-14-2022 10:30-0400 Body weight 122.06 kg Danya Missler Other [employer] Other 12-14-2022 10:30-0400 Diastolic blood pressure 82 mm[Hg] Danya ler Other [employer] Other 12-14-2022 10:30-0400 Respiratory rate 18 /min Danya Missler Other [employer] Other 12-14-2022 10:30-0400 SaO2% (BldA) [Mass fraction] 97 % Danya Carty Other [employer] Other 12-14-2022 10:30-0400 Systolic blood pressure 124 mm[Hg] Danya Carty Other [employer] Other 12-01-2022 14:00-0400 Body height 159.38 cm Serene Fitt Other [employer] Other 12-01-2022 14:00-0400 Body mass index (BMI) [Ratio] 46.96 kg/m2 Serene Fitt Other [employer] Other 12-01-2022 14:00-0400 Body weight 119.3 kg Serene Fitt Other [employer] Other 11-07-2022 11:00-0500 Body height 159.38 cm Ellie Juan Jose Other [employer] Other 11-07-2022 11:00-0500 Body mass index (BMI) [Ratio] 46.17 kg/m2 Ellie Ingram Other [employer] Other 11-07-2022 11:00-0500 Body weight 117.3 kg Ellie Ingram Other [employer] Other 11-07-2022 11:00-0500 Diastolic blood pressure 74 mm[Hg] Ellei Ingram Other [employer] Other 11-07-2022 11:00-0500 Respiratory rate 18 /min Ellie Ingram Other [employer] Other 11-07-2022 11:00-0500 SaO2% (BldA) [Mass fraction] 99 % Ellie Ingram Other [employer] Other 11-07-2022 11:00-0500 Systolic blood pressure 123 mm[Hg] Elile Ingram Other [employer] Other 11-03-2022 14:00-0500 Body height 159.38 cm Susana Arrietamond Other [employer] Other 11-03-2022 14:00-0500 Body mass index (BMI) [Ratio] 46.74 kg/m2 Susana Arrietamond Other [employer] Other 11-03-2022 14:00-0500 Body temperature 97.8 [degF] Susana Ellis Other [employer] Other 11-03-2022 14:00-0500 Body weight 118.75 kg Susana Ellis Other [employer] Other 11-03-2022 14:00-0500 Diastolic blood pressure 72 mm[Hg] Susana Arrietamond Other [employer] Other 11-03-2022 14:00-0500 Respiratory rate 8 /min Susana Arrietamond Other [employer] Other 11-03-2022 14:00-0500 SaO2% (BldA) [Mass fraction] 98 % Susana Arrietamond Other [employer] Other 11-03-2022 14:00-0500 Systolic blood pressure 122 mm[Hg] Susana Ellis Other [employer] Other 10-30-2022 11:15-0500 Body height 159.38 cm Danya Missler Other [employer] Other 10-30-2022 11:15-0500 Body mass index (BMI) [Ratio] 46.76 kg/m2 Danya Missler Other [employer] Other 10-30-2022 11:15-0500 Body weight 118.8 kg Danya Missler Other [employer] Other 10-30-2022 11:15-0500 Diastolic blood pressure 70 mm[Hg] Danay Missler Other [employer] Other 10-30-2022 11:15-0500 Respiratory rate 18 /min Danya Missler Other [employer] Other 10-30-2022 11:15-0500 SaO2% (BldA) [Mass fraction] 99 % Danya Missler Other [employer] Other 10-30-2022 11:15-0500 Systolic blood pressure 124 mm[Hg] Danya Missler Other [employer] Other 10-29-2022 11:00-0500 Body height 159.38 cm Ellie Ingram Other [employer] Other 10-29-2022 11:00-0500 Body mass index (BMI) [Ratio] 46.46 kg/m2 Ellie Ingram Other [employer] Other 10-29-2022 11:00-0500 Body temperature 99.8 [degF] Ellie Ingram Other [employer] Other 10-29-2022 11:00-0500 Body weight 118.03 kg Ellie Ingram Other [employer] Other 10-29-2022 11:00-0500 Diastolic blood pressure 80 mm[Hg] Ellie Ingram Other [employer] Other 10-29-2022 11:00-0500 Respiratory rate 18 /min Ellie Ingram Other [employer] Other 10-29-2022 11:00-0500 SaO2% (BldA) [Mass fraction] 98 % Ellie Ingram Other [employer] Other 10-29-2022 11:00-0500 Systolic blood pressure 120 mm[Hg] Ellie Ingram Other [employer] Other 10-08-2022 20:24-0500 Diastolic blood pressure 63 mm[Hg] [facility] 10-08-2022 20:24-0500 Heart rate 96 /min [facility] 10-08-2022 20:24-0500 Respiratory rate 18 /min [facility] 10-08-2022 20:24-0500 SaO2% (BldA) [Mass fraction] 98 % [facility] 10-08-2022 20:24-0500 Systolic blood pressure 135 mm[Hg] [facility] 10-08-2022 16:01-0500 Body height 157.48 cm [facility] 10-08-2022 16:01-0500 Body temperature 98.1 [degF] [facility] 10-08-2022 16:01-0500 Body weight 116 kg [facility] 10-06-2022 12:15-0500 Body height 159.38 cm Serene Bustos Other [employer] Other 10-01-2022 11:00-0500 Body height 159.38 cm Ellie Ingram Other [employer] Other 10-01-2022 11:00-0500 Body mass index (BMI) [Ratio] 45.71 kg/m2 Ellie Ingram Other [employer] Other 10-01-2022 11:00-0500 Body temperature 98.3 [degF] Ellie Martinezault Other [employer] Other 10-01-2022 11:00-0500 Body weight 116.12 kg Ellie Ingram Other [employer] Other 10-01-2022 11:00-0500 Respiratory rate 18 /min Ellie Ingram Other [employer] Other 10-01-2022 11:00-0500 SaO2% (BldA) [Mass fraction] 99 % Ellie Martinezault Other [employer] Other 09-30-2022 08:30-0500 Body height 159.38 cm Danya Missler Other [employer] Other 09-30-2022 08:30-0500 Body mass index (BMI) [Ratio] 45.72 kg/m2 Danya Missler Other [employer] Other 09-30-2022 08:30-0500 Body weight 116.17 kg Danya Missler Other [employer] Other 09-30-2022 08:30-0500 Diastolic blood pressure 81 mm[Hg] Danya Missler Other [employer] Other 09-30-2022 08:30-0500 Respiratory rate 18 /min Danya Missler Other [employer] Other 09-30-2022 08:30-0500 SaO2% (BldA) [Mass fraction] 98 % Danya Missler Other [employer] Other 09-30-2022 08:30-0500 Systolic blood pressure 123 mm[Hg] Danya Missler Other [employer] Other 09-20-2022 11:15-0500 Body height 162.56 cm Susana Arrietamond Other [employer] Other 09-20-2022 11:15-0500 Body mass index (BMI) [Ratio] 43.59 kg/m2 Susana Rhonda Other [employer] Other 09-20-2022 11:15-0500 Body temperature 97.7 [degF] Susana Rhonda Other [employer] Other 09-20-2022 11:15-0500 Body weight 115.21 kg Susana Rhonda Other [employer] Other 09-20-2022 11:15-0500 Diastolic blood pressure 75 mm[Hg] Susana Rhonda Other [employer] Other 09-20-2022 11:15-0500 Respiratory rate 18 /min Susana Rhonda Other [employer] Other 09-20-2022 11:15-0500 SaO2% (BldA) [Mass fraction] 98 % Susana Ellis Other [employer] Other 09-20-2022 11:15-0500 Systolic blood pressure 118 mm[Hg] Susana Ellis Other [employer] Other 09-14-2022 18:00-0500 Body height 162.56 cm Ellie Martinezault Other [employer] Other 09-14-2022 18:00-0500 Body mass index (BMI) [Ratio] 43.59 kg/m2 Ellie Juan Jose Other [employer] Other 09-14-2022 18:00-0500 Body temperature 97.1 [degF] Ellie Martinezault Other [employer] Other 09-14-2022 18:00-0500 Body weight 115.21 kg Ellie Martinezault Other [employer] Other 09-14-2022 18:00-0500 Diastolic blood pressure 94 mm[Hg] Ellie Juan Jose Other [employer] Other 09-14-2022 18:00-0500 Respiratory rate 18 /min Ellie Juan Jose Other [employer] Other 09-14-2022 18:00-0500 SaO2% (BldA) [Mass fraction] 100 % Ellie Juan Jose Other [employer] Other 09-14-2022 18:00-0500 Systolic blood pressure 157 mm[Hg] Ellie Juan Jose Other [employer] [facility] [employer] Other 09-10-2022 20:30-0500 Diastolic blood pressure 72 mm[Hg] [facility] 09-10-2022 20:30-0500 Heart rate 95 /min [facility] 09-10-2022 20:30-0500 Respiratory rate 18 /min [facility] 09-10-2022 20:30-0500 SaO2% (BldA) [Mass fraction] 99 % [facility] 09-10-2022 20:30-0500 Systolic blood pressure 156 mm[Hg] [facility] 09-10-2022 15:46-0500 Body height 165.1 cm [facility] 09-10-2022 15:46-0500 Body temperature 99 [degF] [facility] 09-10-2022 15:46-0500 Body weight 115.85 kg [facility] 09-10-2022 15:00-0500 Body height 162.56 cm Ellie Juan Jose Other [employer] [facility] [employer] Other 09-10-2022 15:00-0500 Body mass index (BMI) [Ratio] 43.94 kg/m2 Ellie Juan Jose Other [employer] Other 09-10-2022 15:00-0500 Body temperature 98.2 [degF] Ellie Ingram Other [employer] Other 09-10-2022 15:00-0500 Body weight 116.12 kg Ellie Juan Jose Other [employer] Other 09-10-2022 15:00-0500 SaO2% (BldA) [Mass fraction] 98 % Ellie Ingram Other [employer] Other 08-27-2022 15:00-0500 Body height 162.56 cm Ellie Ingram Other [employer] Other 08-27-2022 15:00-0500 Body mass index (BMI) [Ratio] 43.59 kg/m2 Ellie Ingram Other [employer] Other 08-27-2022 15:00-0500 Body temperature 97.8 [degF] Ellie Ingram Other [employer] Other 08-27-2022 15:00-0500 Body weight 115.21 kg Ellie Ingram Other [employer] Other 08-27-2022 15:00-0500 Diastolic blood pressure 64 mm[Hg] Ellie Martinezault Other [employer] Other 08-27-2022 15:00-0500 Respiratory rate 18 /min Ellie Ingram Other [employer] Other 08-27-2022 15:00-0500 SaO2% (BldA) [Mass fraction] 99 % Ellie Martinezault Other [employer] Other 08-27-2022 15:00-0500 Systolic blood pressure 107 mm[Hg] Ellie Martinezault Other [employer] Other 07-30-2022 12:00-0500 Body height 162.56 cm Ellie Martinezault Other [employer] Other 07-30-2022 12:00-0500 Body mass index (BMI) [Ratio] 43.25 kg/m2 Ellie Ingram Other [employer] Other 07-30-2022 12:00-0500 Body temperature 97.6 [degF] Ellie Ingram Other [employer] Other 07-30-2022 12:00-0500 Body weight 114.31 kg Ellie Ingram Other [employer] Other 07-30-2022 12:00-0500 Diastolic blood pressure 72 mm[Hg] Ellie Ingram Other [employer] Other 07-30-2022 12:00-0500 Respiratory rate 18 /min Ellie Ingram Other [employer] Other 07-30-2022 12:00-0500 SaO2% (BldA) [Mass fraction] 100 % Ellie Ingram Other [employer] Other 07-30-2022 12:00-0500 Systolic blood pressure 135 mm[Hg] Ellie Ingram Other [employer] Other 07-20-2022 12:05-0500 Body height 162.56 cm Ellie Ingram Other [employer] Other 07-20-2022 12:05-0500 Body mass index (BMI) [Ratio] 42.56 kg/m2 Ellie Ingram Other [employer] Other 07-20-2022 12:05-0500 Body temperature 97.8 [degF] Ellie Ingram Other [employer] Other 07-20-2022 12:05-0500 Body weight 112.49 kg Ellie Ingram Other [employer] Other 07-20-2022 12:05-0500 Diastolic blood pressure 71 mm[Hg] Ellie Ingram Other [employer] Other 07-20-2022 12:05-0500 Respiratory rate 18 /min Ellie Ingram Other [employer] Other 07-20-2022 12:05-0500 SaO2% (BldA) [Mass fraction] 99 % Ellie Ingram Other [employer] Other 07-20-2022 12:05-0500 Systolic blood pressure 137 mm[Hg] Ellie Ingram Other [employer] Other 07-02-2022 12:30-0400 Body height 162.56 cm Ellie Ingram Other [employer] Other 07-02-2022 12:30-0400 Body mass index (BMI) [Ratio] 42.56 kg/m2 Ellie Ingram Other [employer] Other 07-02-2022 12:30-0400 Body temperature 98 [degF] Ellie Ingram Other [employer] Other 07-02-2022 12:30-0400 Body weight 112.49 kg Ellie Ingram Other [employer] Other 07-02-2022 12:30-0400 Diastolic blood pressure 84 mm[Hg] Ellie Martinezault Other [employer] Other 07-02-2022 12:30-0400 Respiratory rate 18 /min Ellie Ingram Other [employer] Other 07-02-2022 12:30-0400 SaO2% (BldA) [Mass fraction] 100 % Ellie Ingram Other [employer] Other 07-02-2022 12:30-0400 Systolic blood pressure 129 mm[Hg] Ellie Ingram Other [employer] Other 06-29-2022 11:15-0400 Body height 162.56 cm Pop Blandon Other [employer] Other 06-29-2022 11:15-0400 Body mass index (BMI) [Ratio] 41.19 kg/m2 Pop Blandon Other [employer] Other 06-29-2022 11:15-0400 Body weight 108.86 kg Pop Blandon Other [employer] Other 06-25-2022 17:30-0400 Body height 162.56 cm Ellie Martinezault Other [employer] Other 06-25-2022 17:30-0400 Body mass index (BMI) [Ratio] 41.19 kg/m2 Ellie Martinezault Other [employer] Other 06-25-2022 17:30-0400 Body temperature 97.7 [degF] Ellie Martinezault Other [employer] Other 06-25-2022 17:30-0400 Body weight 108.86 kg Ellie Martinezault Other [employer] Other 06-25-2022 17:30-0400 Diastolic blood pressure 88 mm[Hg] Ellie Ingram Other [employer] Other 06-25-2022 17:30-0400 Respiratory rate 18 /min Ellie Ingram Other [employer] Other 06-25-2022 17:30-0400 SaO2% (BldA) [Mass fraction] 99 % Ellie Ingram Other [employer] Other 06-25-2022 17:30-0400 Systolic blood pressure 135 mm[Hg] Ellie Ingram Other [employer] Other 05-25-2022 18:00-0400 Body height 162.56 cm Ellie Ingram Other [employer] Other 05-25-2022 18:00-0400 Body mass index (BMI) [Ratio] 42.84 kg/m2 Ellie Ingram Other [employer] Other 05-25-2022 18:00-0400 Body temperature 97.9 [degF] Ellie Ingram Other [employer] Other 05-25-2022 18:00-0400 Body weight 113.22 kg Ellie Ingram Other [employer] Other 05-25-2022 18:00-0400 Diastolic blood pressure 68 mm[Hg] Ellie Martinezault Other [employer] Other 05-25-2022 18:00-0400 Respiratory rate 18 /min Ellie Juan Jose Other [employer] Other 05-25-2022 18:00-0400 SaO2% (BldA) [Mass fraction] 98 % Ellie Ingram Other [employer] Other 05-25-2022 18:00-0400 Systolic blood pressure 120 mm[Hg] Ellie Ingram Other [employer] Other 05-21-2022 12:30-0400 Body height 162.56 cm Ellie Ingram Other [employer] Other 05-21-2022 12:30-0400 Body mass index (BMI) [Ratio] 43.29 kg/m2 Ellie Ingram Other [employer] Other 05-21-2022 12:30-0400 Body temperature 98 [degF] Ellie Ingram Other [employer] Other 05-21-2022 12:30-0400 Body weight 114.4 kg Ellie Ingram Other [employer] Other 05-21-2022 12:30-0400 Diastolic blood pressure 63 mm[Hg] Ellie Ingram Other [employer] Other 05-21-2022 12:30-0400 Respiratory rate 18 /min Ellie Ingram Other [employer] Other 05-21-2022 12:30-0400 SaO2% (BldA) [Mass fraction] 100 % Ellie Ingram Other [employer] Other 05-21-2022 12:30-0400 Systolic blood pressure 103 mm[Hg] Ellie Ingram Other [employer] Other 04-27-2022 12:30-0400 Body height 162.56 cm Ellie Ingram Other [employer] Other 04-27-2022 12:30-0400 Body mass index (BMI) [Ratio] 43.59 kg/m2 Ellie Ingram Other [employer] Other 04-27-2022 12:30-0400 Body temperature 98.6 [degF] Ellie Ingram Other [employer] Other 04-27-2022 12:30-0400 Body weight 115.21 kg Ellie Ingram Other [employer] Other 04-27-2022 12:30-0400 Diastolic blood pressure 81 mm[Hg] Ellie Ingram Other [employer] Other 04-27-2022 12:30-0400 Respiratory rate 18 /min Ellie Ingram Other [employer] Other 04-27-2022 12:30-0400 SaO2% (BldA) [Mass fraction] 98 % Ellie Ingram Other [employer] Other 04-27-2022 12:30-0400 Systolic blood pressure 130 mm[Hg] Ellie Martinezault Other [employer] Other 04-06-2022 11:00-0400 Body height 162.56 cm Ellie Martinezault Other [employer] Other 04-06-2022 11:00-0400 Body mass index (BMI) [Ratio] 43.63 kg/m2 Ellie Ingram Other [employer] Other 04-06-2022 11:00-0400 Body temperature 98.5 [degF] Ellie Ingram Other [employer] Other 04-06-2022 11:00-0400 Body weight 115.31 kg Ellie Ingram Other [employer] Other 04-06-2022 11:00-0400 Diastolic blood pressure 66 mm[Hg] Ellie Ingram Other [employer] Other 04-06-2022 11:00-0400 Respiratory rate 18 /min Ellie Ingram Other [employer] Other 04-06-2022 11:00-0400 SaO2% (BldA) [Mass fraction] 98 % Ellie Ingram Other [employer] Other 04-06-2022 11:00-0400 Systolic blood pressure 131 mm[Hg] Ellie Martinezault Other [employer] Other 03-03-2022 12:05-0400 Body height 162.56 cm Ellie Martinezault Other [employer] Other 03-03-2022 12:05-0400 Body mass index (BMI) [Ratio] 41.19 kg/m2 Ellie Martinezault Other [employer] Other 03-03-2022 12:05-0400 Body temperature 98 [degF] Ellie Ingram Other [employer] Other 03-03-2022 12:05-0400 Body weight 108.86 kg Ellie Ingram Other [employer] Other 03-03-2022 12:05-0400 Diastolic blood pressure 72 mm[Hg] Ellie Ingram Other [employer] Other 03-03-2022 12:05-0400 Respiratory rate 18 /min Ellie Ingram Other [employer] Other 03-03-2022 12:05-0400 SaO2% (BldA) [Mass fraction] 100 % Ellie Ingram Other [employer] Other 03-03-2022 12:05-0400 Systolic blood pressure 116 mm[Hg] Ellie Ingram Other [employer] Other 11-13-2021 16:45-0400 Body height 162.56 cm Pop Blandon Other [employer] Other 11-13-2021 16:45-0400 Body mass index (BMI) [Ratio] 42.91 kg/m2 Pop Blandon Other [employer] Other 11-13-2021 16:45-0400 Body weight 113.4 kg Pop Blandon Other [employer] Other 11-06-2021 14:20-0500 Body height 162.56 cm Ellie Ingram Other [employer] Other 11-06-2021 14:20-0500 Body mass index (BMI) [Ratio] 43.08 kg/m2 Ellie Ingram Other [employer] Other 11-06-2021 14:20-0500 Body temperature 97.7 [degF] Ellie Ingram Other [employer] Other 11-06-2021 14:20-0500 Body weight 113.85 kg Ellie Ingram Other [employer] Other 11-06-2021 14:20-0500 Diastolic blood pressure 70 mm[Hg] Ellie Ingram Other [employer] Other 11-06-2021 14:20-0500 Respiratory rate 18 /min Ellie Ingram Other [employer] Other 11-06-2021 14:20-0500 SaO2% (BldA) [Mass fraction] 99 % Ellie Ingram Other [employer] Other 11-06-2021 14:20-0500 Systolic blood pressure 143 mm[Hg] Ellie Ingram Other [employer] Other 09-29-2021 09:15-0500 Body height 162.56 cm Pop Blandon Other [employer] Other 08-11-2021 16:30-0500 Body height 162.56 cm Edie Singh Other [employer] Other 08-11-2021 16:30-0500 Body mass index (BMI) [Ratio] 43.08 kg/m2 Edie Singh Other [employer] Other 08-11-2021 16:30-0500 Body weight 113.85 kg Edie Singh Other [employer] Other 08-11-2021 16:30-0500 Diastolic blood pressure 88 mm[Hg] Edie Singh Other [employer] Other 08-11-2021 16:30-0500 Respiratory rate 18 /min Edie Singh Other [employer] Other 08-11-2021 16:30-0500 SaO2% (BldA) [Mass fraction] 99 % Edie Singh Other [employer] Other 08-11-2021 16:30-0500 Systolic blood pressure 130 mm[Hg] Edie Singh Other [employer] Other 06-12-2021 15:45-0400 Body height 162.56 cm Edie Singh Other [employer] Other 06-12-2021 15:45-0400 Body mass index (BMI) [Ratio] 42.84 kg/m2 Edie Singh Other [employer] Other 06-12-2021 15:45-0400 Body temperature 98.1 [degF] Edie Singh Other [employer] Other 06-12-2021 15:45-0400 Body weight 113.22 kg Edie Singh Other [employer] Other 06-12-2021 15:45-0400 Diastolic blood pressure 82 mm[Hg] Edie Singh Other [employer] Other 06-12-2021 15:45-0400 Respiratory rate 18 /min Edie Singh Other [employer] Other 06-12-2021 15:45-0400 SaO2% (BldA) [Mass fraction] 99 % Edie Singh Other [employer] Other 06-12-2021 15:45-0400 Systolic blood pressure 132 mm[Hg] Edie Singh Other [employer] Other Encounters Encounter Date Encounter Type Care Provider Facility Start: 04-04-2025 End: 04-04-2025 Telephone encounter [facility] Start: 03-28-2025 End: 03-28-2025 ambulatory ALEXIS GRACE Not Available Start: 03-28-2025 End: 03-28-2025 Office outpatient new 45 minutes Alexis Grace DPM [facility] Comment on above: Onychomycosis (Prima ry Dx); Right foot pain; Plantar wart; Left foot pain Start: 03-28-2025 End: 03-28-2025 Bamboo flowsheet Alexis [facility]PM [facility] Start: 03-28-2025 End: 03-28-2025 Bamboo flowsheet Alexis Grace DPM [facility] Start: 01-16-2025 End: 01-16-2025 ambulatory YESENIA NKBOOGIE [place] [place]: 01-16-2025 End: 01-16-2025 Patient encounter procedure YESENIA LOPEZBOOGIE [facility] Start: 11-30-2024 End: 11-30-2024 Office outpatient visit 15 minutes Martin Larios MD Work Phone: [facility] Comment on above: Postural dizziness w ith near syncope Start: 11-30-2024 End: 11-30-2024 ambulatory MARTIN [facility]di [facility] Start: 11-16-2024 End: 11-16-2024 Subsequent hospital visit by physician [facility] Comment on above: Postural dizziness w ith near syncope Start: 11-16-2024 End: 11-16-2024 ambulatory MARTIN Abdi [facility] Start: 11-14-2024 End: 11-14-2024 ambulatory YESENIA NKANSAH-AMANKRA Facility[facility] Start: 11-02-2024 End: 11-02-2024 ambulatory YESENIA JOHNSAWYERAH-AMANKRA [facility] Start: 10-19-2024 End: 10-19-2024 Admission to same day surgery center YESENIA TREVOR [facility] Start: 10-19-2024 End: 10-19-2024 ambulatory [employer] ELLIE INGRAM [facility] Start: 10-12-2024 End: 10-12-2024 ambulatory ELLIE INGRAM [facility] Start: 10-12-2024 End: 10-12-2024 Patient encounter procedure YESENIA AVERY-AUSTINRA [facility] Start: 10-09-2024 End: 10-09-2024 ambulatory ELLIEDAVID INGRAM Facility:[facility] Start: 10-09-2024 End: 10-09-2024 Patient encounter procedure YESENIA JOHNSAWYERAH-AMANKRA [facility] Start: 10-06-2024 ambulatory ELLIE INGRAM Facil ity:JOSE Dobbins Start: 10-04-2024 End: 10-24-2024 Pre-admission assessment Obdulio NuryTracee Matamoros [facility] Start: 08-09-2024 End: 08-09-2024 Office outpatient visit 25 minutes Dario Palacios DO Work Phone: [employer] Comment on above: Lumbar radiculopathy (Primary Dx); Polypharmacy Start: 08-09-2024 End: 08-09-2024 ambulatory DARIO PALACIOS Not Available Start: 08-09-2024 End: 08-09-2024 Bamboo flowsheet Dairo Palacios DO Work Phone: [employer] Start: 08-09-2024 End: 08-09-2024 Bamboo flowsheet Dario Palacios DO Work Phone: [employer] Start: 07-31-2024 End: 07-31-2024 Office outpatient new 45 minutes Martin Larios MD Work Phone: [facility] Comment on above: Postural dizziness w ith near syncope (Primary Dx); Abnormal EKG Start: 07-31-2024 End: 07-31-[address] [facility] Start: 06-22-2024 End: 06-22-2024 ambulatory ELLIE INGRAM [facility] Start: 05-03-2024 End: 05-03-2024 ambulatory ALYSON INGRAM Facility:[facility] Start: 03-15-2024 End: 03-15-2024 ambulatory NON STAFF [facility] Work Phone: Start: 03-15-2024 End: 03-15-2024 Patient encounter procedure MD Dario Olmedo Work Phone: [facility] Work Phone: Start: 02-15-2024 End: 02-15-2024 ambulatory ELLIE INGRAM [facility] Start: 02-15-2024 End: 02-15-2024 Subsequent hospital visit by physician Patricia Walker MD Work Phone: [facility] Comment on above: Lumbosacral spondylo sis without myelopathy (Primary Dx) Start: 02-15-2024 End: 02-15-2024 ambulatory GISELAANICETO DONOVAN [facility] Start: 02-01-2024 End: 02-01-2024 ambulatory ELLIE INGRAM [facility] Start: 01-20-2024 End: 01-20-2024 ambulatory ELLIE [facility] Facility[facility] Start: 01-19-2024 End: 01-19-2024 ambulatory [facility] Start: 01-19-2024 Encounter for gynecological examination (general) (routine) without abnormal findings [facility] Start: 01-19-2024 End: 01-19-2024 Patient encounter procedure [facility] 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 [facility] Start: 01-19-2024 End: 01-19-2024 Periodic preventive med est patient 40-64yrs [facility] Ob 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 [facility] [place] Comment on above: Well woman exam with routine gynecological exam (Primary Dx); Encounter for screening mammogram for malignant neoplasm of breast; Standardized adult depression screening tool completed; Skin lesion of right leg Start: 01-02-2024 End: 01-03-2024 Refill Naima Bates APRN-[facility] Work Phone: [facility] [place] Comment on above: Encounter for initia l prescription of contraceptive pills Start: 12-29-2023 Non-patient / Non-visit MD Jesús Olmedo Work Phone: [facility] Work Phone: Start: 12-28-2023 End: 12-28-2023 ambulatory Dario Olmedo Facility:[facility] Start: 12-28-2023 End: 12-28-2023 ambulatory NON STAFF [facility] Work Phone: Start: 12-28-2023 End: 12-28-2023 Patient encounter procedure MD Dario Olmedo Work Phone: 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 Work Phone: [facility] [place] Comment on above: Encounter for initia l prescription of contraceptive pills Start: 11-26-2023 End: 11-26-2023 ambulatory [facility] Work Phone: Start: 11-26-2023 End: 11-26-2023 Patient encounter procedure [facility] Work Phone: Start: 11-23-2023 End: 11-23-2023 ambulatory ELLIE INGRAM Facility[facility] Start: 11-09-2023 End: 11-09-2023 ambulatory ELLIE INGRAM Facility[facility] Start: 10-25-2023 End: 10-25-2023 ambulatory ELLIEDAVID INGRAM Facility[facility] Start: 10-21-2023 End: 10-21-2023 ambulatory ELLIEDAVID INGRAM Facility[facility] Start: 10-13-2023 Non-patient / Non-visit MD Jesús Olmedo Work Phone: [facility] Work Phone: Start: 10-12-2023 End: 10-12-2023 ambulatory ELLIE INGRAM Facility[facility] Start: 06-18-2023 End: 06-18-2023 ambulatory Dario Palacios Facility:[facility] Start: 06-18-2023 End: 06-18-2023 ambulatory SEWING MACHINE ADJUSTER-C Ellie [facility] Work Phone: Start: 06-18-2023 End: 06-18-2023 Patient encounter procedure SEWING MACHINE ADJUSTER-C Ellie [facility] [place] Work Phone: Start: 04-16-2023 End: 04-16-2023 ambulatory Kera Mccall Other [facility] [employer] Other Start: 04-16-2023 Office outpatient vi sit 25 minutes Kera Mccall [facility] Start: 02-24-2023 End: 02-24-2023 ambulatory Dario Olmedo Facility:[facility] Start: 02-24-2023 End: 02-24-2023 ambulatory SEWING MACHINE ADJUSTER-C Ellie Ingram Work Phone: [facility] Work Phone: Start: 02-24-2023 End: 02-24-2023 Patient encounter procedure SEWING MACHINE ADJUSTER-C Ellie Juan Jose Work Phone: [facility] Work Phone: Start: 02-02-2023 Follow-up encounter [facility] Start: 02-02-2023 Telephone encounter Clive [facility] Start: 02-02-2023 End: 02-03-2023 ambulatory Ellie Ingram [facility] [employer] Other Start: 02-02-2023 Registered Recurring SEWING MACHINE ADJUSTER-C [place] matias Juan Jose Work Phone: [facility] Work Phone: Start: 12-23-2022 Office outpatient ne w 30 minutes Dario Olmedo [facility] Start: 12-23-2022 End: 12-23-2022 ambulatory SEWING MACHINE ADJUSTER-C Ellie Juan Jose Work Phone: [facility] Work Phone: Start: 12-23-2022 End: 12-23-2022 Patient encounter procedure SEWING MACHINE ADJUSTER-C Ellie Juan Jose Work Phone: [facility] Work Phone: Start: 12-16-2022 End: 12-16-2022 ambulatory Serene Fitt Other [employer] Other Start: 12-16-2022 IBT for Obesity subQ 15 min (Max charge 2 units) Serene Bustos [facility] Start: 12-16-2022 Registered Recurring SEWING MACHINE ADJUSTER-C Librado Ingram Work Phone: [facility] Work Phone: Start: 12-14-2022 [facility] Weight Management f/u Danya [facility] Start: 12-14-2022 End: 12-14-2022 ambulatory Danya Carty Other [employer] Other Start: 12-14-2022 Telephone encounter [facility] Start: 12-01-2022 [facility] Init ial Provider Serene Bustos [facility] Start: 12-01-2022 End: 12-01-2022 ambulatory Sereen Morenot Other [employer] Other Start: 11-07-2022 Office outpatient vi sit 15 minutes Ellie Ingram [facility] Start: 11-07-2022 End: 11-07-2022 ambulatory NON STAFF [facility] Work Phone: Start: 11-07-2022 End: 11-07-2022 Patient encounter procedure [facility] Work Phone: Start: 11-03-2022 End: 11-03-2022 Patient encounter procedure [facility] Work Phone: Start: 11-03-2022 End: 11-03-2022 ambulatory NON STAFF [facility] Work Phone: Start: 11-03-2022 Office outpatient vi sit 15 minutes Susana Ellis [facility] Start: 10-30-2022 [facility] Weight Management f/u Danya Carty [facility] Start: 10-30-2022 End: 10-30-2022 ambulatory Danya Carty Other [employer] Other Start: 10-30-2022 Registered Recurring [facility] Work Phone: Start: 10-29-2022 End: 10-29-2022 ambulatory Ellie Ingram Other [employer] Other Start: 10-29-2022 Office outpatient vi sit 15 minutes Ellie Ingram [facility] Start: 10-08-2022 End: 10-08-2022 Emergency department patient visit [facility] Work Phone: Start: 10-06-2022 End: 10-06-2022 ambulatory Serene Fitt Other [employer] Other Start: 10-06-2022 IBT FOR OBESITY GROU P 2-10 30M Serene Bustos [facility] Start: 10-06-2022 Registered Recurring [facility] Work Phone: Start: 10-01-2022 Office outpatient vi sit 15 minutes Ellie Ingram [facility] Start: 10-01-2022 End: 10-01-2022 ambulatory NON STAFF [facility] Work Phone: Start: 10-01-2022 End: 10-01-2022 Patient encounter procedure [facility] Work Phone: Start: 09-30-2022 End: 09-30-2022 ambulatory Danya Carty Other [employer] Other Start: 09-30-2022 Nutrition therapy Danya Carty [facility] Start: 09-30-2022 Registered Recurring [facility] Work Phone: Start: 09-25-2022 End: 09-25-2022 ambulatory Ellie Martinezault Other [employer] Other Start: 09-25-2022 Telephone encounter Ellie cisneros [facility] Start: 09-23-2022 End: 09-23-2022 ambulatory Ellie Juan Jose Other [employer] Other Start: 09-23-2022 Telephone encounter Ellienancy cisneros [facility] Start: 09-21-2022 End: 09-22-2022 ambulatory ELLIE JUAN JOSE Facility: Start: 09-20-2022 End: 09-20-2022 ambulatory Susana Ellis Other [employer] Other Start: 09-20-2022 Office outpatient vi sit 15 minutes Susana Rhonda [facility] Start: 09-14-2022 End: 09-14-2022 ambulatory Ellie Martinezault Other [employer] Other Start: 09-14-2022 Office outpatient vi sit 15 minutes Ellie Juan Jose [facility] Start: 09-10-2022 End: 09-10-2022 Emergency department patient visit [facility] Work Phone: Start: 09-10-2022 End: 09-10-2022 ambulatory Ellie Martinezault Other [employer] Other Start: 09-10-2022 Patient encounter procedure Ellie Juan Jose [facility] Start: 09-07-2022 End: 09-07-2022 ambulatory Ellie Juan Jose Other [employer] Other Start: 09-07-2022 Telephone encounter Ellie Breaul t [facility] Start: 08-27-2022 End: 08-27-2022 ambulatory Elliedavid Ingram Other [employer] Other Start: 08-27-2022 Office outpatient vi sit 15 minutes Ellie Juan Jose [facility] Start: 08-17-2022 End: 08-17-2022 ambulatory Ellie Juan Jose Other [employer] Other Start: 08-17-2022 Telephone encounter Ellie Zabrinal t [facility] Start: 07-30-2022 End: 07-30-2022 ambulatory Ellie Juan Jose Other [employer] Other Start: 07-30-2022 Office outpatient vi sit 15 minutes Ellie Juan Jose [facility] Start: 07-20-2022 End: 07-20-2022 ambulatory Ellie Juan Jose Other [employer] Other Start: 07-20-2022 Office outpatient vi sit 15 minutes Ellie Juan Jose [facility] Start: 07-10-2022 End: 07-10-2022 ambulatory Ellie Juan Jose Other [employer] Other Start: 07-10-2022 Telephone encounter Ellie Otiliaaul t [facility] Start: 07-02-2022 End: 07-02-2022 ambulatory Ellei Juan Jose Other [employer] Other Start: 07-02-2022 Office outpatient vi sit 15 minutes Ellie Juan Jose [facility] Start: 06-30-2022 End: 06-30-2022 ambulatory Ellie Juan Jose Other [employer] Other Start: 06-30-2022 Telephone encounter Ellie cisneros [facility] Start: 06-29-2022 End: 06-29-2022 ambulatory Pop Blandon Other [employer] Other Start: 06-29-2022 Office outpatient vi sit 15 minutes Pop Jamia [facility] Start: 06-25-2022 End: 06-25-2022 ambulatory Ellie Juan Jose Other [employer] Other Start: 06-25-2022 Office outpatient vi sit 15 minutes Ellienancy Ingram [facility] Start: 06-22-2022 (Procedure) Kat Blandon [facility] Start: 06-22-2022 End: 06-22-2022 ambulatory Pop Blandon Other [employer] Other Start: 06-11-2022 End: 06-11-2022 ambulatory Ellie Juan Jose Other [employer] Other Start: 06-11-2022 Telephone encounter Ellie cisneros [facility] Start: 06-05-2022 End: 06-06-2022 ambulatory ELLIEDAVID INGRAM Facility: Start: 06-01-2022 (Procedure) Kat Blandon [facility] Start: 06-01-2022 End: 06-01-2022 ambulatory Pop Blandon Other [employer] Other Start: 05-25-2022 End: 05-25-2022 ambulatory Ellie Juan Jose Other [employer] Other Start: 05-25-2022 Office outpatient vi sit 25 minutes Ellie Juan Jose [facility] Start: 05-21-2022 End: 05-21-2022 ambulatory Ellie Juan Jose Other [employer] Other Start: 05-21-2022 Office outpatient vi sit 15 minutes Ellie Juan Jose [facility] Start: 05-08-2022 End: 05-08-2022 ambulatory Elliedavid Ingram Other [employer] Other Start: 05-08-2022 Telephone encounter Ellie cisneros [facility] Start: 04-27-2022 End: 04-27-2022 ambulatory Elliedavid Ingram Other [employer] Other Start: 04-27-2022 Office outpatient vi sit 15 minutes Ellie Juan Jose [facility] Start: 04-22-2022 End: 04-22-2022 ambulatory Pop Blandon Other [employer] Other Start: 04-22-2022 Office outpatient vi sit 25 minutes Pop Blandon [facility] Start: 04-16-2022 End: 04-16-2022 ambulatory Pop Blandon Other [employer] Other Start: 04-16-2022 Telephone encounter Pop Glynn [facility] Start: 04-13-2022 (Procedure) Short Pop Blandon [facility] Start: 04-13-2022 End: 04-13-2022 ambulatory Pop Blandon Other [employer] Other Start: 04-06-2022 Office outpatient vi sit 15 minutes Ellienancy Ingram [facility] Start: 04-06-2022 End: 04-07-2022 ambulatory ELLIE JUAN JOSE [employer] Other Start: 03-03-2022 End: 03-03-2022 ambulatory Ellie Juan Jose Other [employer] Other Start: 03-03-2022 Office outpatient vi sit 15 minutes Ellie Juan Jose [facility] Start: 01-28-2022 End: 01-28-2022 ambulatory Pop Arceshady Other [employer] Other Start: 01-28-2022 Telephone encounter Pop Blandon [facility] Start: 01-21-2022 End: 01-21-2022 ambulatory Pop Arceshady Other [employer] Other Start: 01-21-2022 Telephone encounter Pop Blandon [facility] Start: 01-15-2022 End: 01-15-2022 ambulatory Pop Yazminshady Other [employer] Other Start: 01-15-2022 Office outpatient vi sit 25 minutes Pop Yazminshady [facility] Start: 12-11-2021 End: 12-11-2021 ambulatory Pop Yazminer Other [employer] Other Start: 12-11-2021 Office outpatient vi sit 25 minutes Pop Blandon [facility] Start: 12-03-2021 (Procedure) Short Pop Blandon [facility] Start: 12-03-2021 End: 12-03-2021 ambulatory Pop Yazminshady Other [employer] Other Start: 11-14-2021 End: 11-14-2021 ambulatory Pop Yazminshady Other [employer] Other Start: 11-14-2021 Telephone encounter Pop FISH G [facility] Start: 11-13-2021 End: 11-13-2021 ambulatory Pop Yazminer Other [employer] Other Start: 11-13-2021 Office outpatient vi sit 25 minutes Pop Yazminshady [facility] Start: 11-06-2021 End: 11-06-2021 ambulatory Ellie Ingram Other [employer] Other Start: 11-06-2021 Office outpatient vi sit 15 minutes Ellie Ingram [facility] Start: 11-06-2021 Telephone encounter Edie Lewis [facility] Start: 10-29-2021 End: 10-29-2021 ambulatory Pop Blandon Other [employer] Other Start: 10-29-2021 Telephone encounter Pop Blandon [facility] Start: 09-29-2021 End: 09-29-2021 ambulatory Pop Blandon Other [employer] Other Start: 09-29-2021 Office outpatient vi sit 25 minutes Pop Blandon [facility] Start: 09-25-2021 End: 09-25-2021 ambulatory Edie Singh Other [employer] Other Start: 09-25-2021 Telephone encounter Edie Lewis [facility] Start: 08-19-2021 End: 08-19-2021 ambulatory Edie Singh Other [employer] Other Start: 08-19-2021 Telephone encounter Edie Lewis [facility] Start: 08-11-2021 End: 08-11-2021 ambulatory Edie Singh Other [employer] Other Start: 08-11-2021 Office outpatient vi sit 15 minutes Edie Singh [facility] Start: 06-12-2021 Office outpatient vi sit 15 minutes Edie Singh [facility] Start: 08-10-2020 End: 08-13-2020 Patient encounter procedure EDIE SINGH [facility] Start: 08-10-2020 End: 08-12-2020 Subsequent hospital visit by physician [facility] MRI Comment on above: Left elbow pain Procedures Date Procedure Procedure Detail Performing Clinician Start: 10-19-2024 Cystoscopy YESENIA HYMAN Start: 07-31-2024 Ecg routine ecg w/le ast 12 lds w/i&r Martin Larios MD Work Phone: Start: 01-19-2024 Adult depression screening assessment [facility] 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 Start: 06-18-2023 MR lumbar spine wo con SEWING MACHINE ADJUSTER-C Ellie Ingram Start: 01-01-2023 End: 01-01-2023 Mammography Naima Paulo [employer] Work Phone: Start: 11-07-2022 Plain X-ray of right hip Start: 11-03-2022 X-ray of right knee Start: 10-08-2022 Plain chest X-ray Start: 10-01-2022 Plain chest X-ray Start: 09-10-2022 Computed tomography of abdomen and pelvis with contrast Start: 11-26-2020 Microscopic observat ion [Identifier] in Cervix by Cyto stain Naima Bates [employer] Work Phone: Start: 08-10-2020 Mri any jt upper extremity w/o contrast john SINGH Start: 08-10-2020 Mri any jt upper extremity w/o contrast john Singh Work Phone: Spinal nerve structu re (body structure) YESENIA YUSUF Plan of Treatment Date Care Activity Detail Author Start: 01-21-2026 ambulatory Ambulatory Facility:[facility] Start: 05-31-2025 End: 05-31-2025 Patient encounter procedure 05/31/2025 1:15 PM EDT Office Visit [facility] [address] [place] [address] [place] [address] [place] [address] [facility] Start: 05-02-2025 End: 05-02-2025 Patient encounter procedure 05/02/2025 3:00 PM EDT Office Visit [facility] [address] [place] [id number] Alexis Grace DPM [address] [place], [place] [id number] [facility] Start: 04-30-2025 Influenza vaccination [facility] Start: 04-04-2025 End: 04-04-2026 Alanine aminotransferase [Enzymatic activity/volume] in Serum or Plasma ALT Lab Routine Onychomycosis Expected: 04/04/2025 (Approximate), Expires: 04/04/2026 [facility] Work Phone: Comment on above: Expected: 04/04/2025 (Approximate), Expires: 04/04/2026 Start: 04-04-2025 End: 04-04-2026 Aspartate aminotransferase [Enzymatic activity/volume] in Serum or Plasma AST Lab Routine Onychomycosis Expected: 04/04/2025 (Approximate), Expires: 04/04/2026 [facility] Comment on above: Expected: 04/04/2025 (Approximate), Expires: 04/04/2026 Start: 01-18-2025 Adult BMI Screening Adult BMI Screen ing [facility] Start: 01-18-2025 Depression Screening Depression Scre ening [facility] Start: 01-18-2025 Medicare Annual Well ness (AWV) Medicare Annual Wellness (AWV) [facility] Start: 01-18-2025 Tobacco Screening Tobacco Screening [facility] Start: 01-01-2025 Screening for malign ant neoplasm of breast Breast cancer screen [facility] [employer] [facility] Start: 11-30-2024 End: 11-30-2024 Patient encounter procedure 11/30/2024 2:00 PM EDT Office Visit [facility] [address] [place] [address] [address] [place] [address] [place] [address] [place] [address] [facility] Start: 10-16-2024 End: 10-16-2024 Patient encounter procedure 10/16/2024 10:00 AM EST Office Visit [address] [place] [address] Martin Larios MD [address] [place] [address] [address] [place] [address] [facility] Start: 10-05-2024 End: 10-05-2024 Patient encounter procedure 10/05/2024 8:00 AM EST Appointment [place] [id number] [facility] [address] [phone] [facility] Start: 08-09-2024 End: 08-09-2024 Patient encounter procedure 08/09/2024 3:30 PM EST Office Visit [facility] [address] [place] [phone] Dario Palacios DO [address] [place] [address] Arrived [facility] Comment on above: Arrived Start: 07-31-2024 End: 07-31-2026 Tilt table study [facility] Routine Postural dizziness with near syncope Expected: 07/31/2024 (Approximate), Expires: 07/31/2026 [facility] Service Area Work Phone: Comment on above: Expected: 07/31/2024 (Approximate), Expires: 07/31/2026 Start: 04-30-2024 Influenza vaccination [facility] Start: 03-30-2024 Influenza vaccination Flu vacc ine (Season Ended) [facility] Start: 01-19-2024 End: 01-18-2025 DBT Breast - bilateral screening Mammography screening bilateral with CAD Imaging Routine Encounter for screening mammogram for malignant neoplasm of breast Expected: 01/19/2024, Expires: 01/18/2025 [facility] Work Phone: Comment on above: Expected: 01/19/2024 , Expires: 01/18/2025 Start: 01-19-2024 End: 01-19-2024 Patient encounter procedure 01/19/2024 10:00 AM EDT Office [facility] [facility] [address] [address] [facility] [place] Start: 01-02-2024 Screening for malign ant neoplasm of breast Mammogram [facility] Start: 12-16-2023 Adult BMI Follow Up Plan Adult BMI Follow Up Plan [facility] Start: 12-16-2023 Adult BMI Screening Adult BMI Screen ing [facility] Start: 12-16-2023 Tobacco Screening Tobacco Screening [facility] Start: 11-27-2023 Screening for malign ant neoplasm of cervix Pap Smear [facility] Start: 04-30-2023 COVID-19 Vaccine ( season) COVID-19 Vaccine ( season) [facility] Start: 11-11-2021 Administration of varicella zoster vaccine Zoster (Shingles) Vaccine (1 of 2) [facility] Start: 11-11-2021 Shingles vaccine (1 of 2) Jones gles vaccine (1 of 2) [facility] Start: 11-11-2021 Zoster Vaccines (1 of 2) Zoste r Vaccines (1 of 2) [facility] Start: 04-30-2020 Influenza vaccination Flu vaccine (# 1) [facility] Start: 11-11-2016 Screening for malign ant neoplasm of [facility]: 2011 Lipid panel [facility] Start: 11-11-2006 Diabetes screen Diabetes screen [facility] Start: 11-11-2001 Screening for malign ant neoplasm of cervix [facility] Start: 11-11-1993 DTaP/Tdap/Td Vaccine s (1 - Tdap) DTaP/Tdap/Td Vaccines (1 - Tdap) [facility] Start: 11-11-1992 Screening for malign ant neoplasm of cervix [facility] Start: 11-11-1990 DTaP,Tdap and Td Vac cines (1 - Tdap) DTaP,Tdap and Td Vaccines (1 - Tdap) [facility] Start: 11-11-1990 DTaP/Tdap/Td vaccine (1 - Tdap) DTaP/Tdap/Td vaccine (1 - Tdap) [facility] Start: 11-11-1990 Hepatitis B Vaccines (1 of 3 - 19+ 3-dose series) Hepatitis B Vaccines (1 of 3 - 19+ 3-dose series) [facility] Start: 11-11-1990 Pneumococcal vaccination Pneum ococcal Vaccine (1 of 2 - PCV) [facility] Start: 11-11-1989 Diabetes mellitus screening Diabetes Screening [facility] Start: 11-11-1989 Hepatitis C screening U [facility] Start: 11-11-1986 HIV screening HIV screen [facility] Start: 1983 Depression Screen Depression Screen [facility] Start: 1983 Depression Screening Depression Scre ening [facility] Start: 11-11-1976 COVID-19 Vaccine (#1) COVID-19 Vacci ne (#1) [facility] Start: 11-11-1972 MMR Vaccines (1 of 1 - Standard series) MMR Vaccines (1 of 1 - Standard series) [facility] Start: 1971 Annual wellness visit Welcome to Medicare Visit [facility] Start: 1971 Hepatitis B vaccine (1 of 3 - 3-dose series) Hepatitis B vaccine (1 of 3 - 3-dose series) [facility] Start: 1971 HIV screening HIV Screening [facility] Start: 1971 Lipid panel Lipid Panel [facility] Start: 1971 Screening for malign ant neoplasm of colon [facility] Patient Education [facility] Work Phone: Patient referral [facility] Work Phone: End: 11-16-2024 Tilt table study [facility] Service Area Work Phone: Comment on above: Once for 1 Occurrenc es starting 11/16/2024 until 11/16/2024 Immunizations Immunization Date Immunization Notes Care Provider Fa cility 06-06-2021 SARS-CoV-2 (COVID-19 ) mRNA BNT-162b2 vax YESENIALUISITO AVERY-AMANKRA [facility] 05-15-2021 SARS-CoV-2 (COVID-19 ) mRNA BNT-162b2 vax YESENIA JOHNANSAH-AMANKRA [facility] 05-15-2021 influenza virus vaccine, unspecified formulation Naima Lloydo DIRECTOR OF INSTRUCTION-[facility] Work Phone: [facility] 03-11-2021 Toradol 30 mg/ml Edie Wid ashli Other [employer] Other 03-11-2021 KENALOG - 10 mg Edie Widm er Other [employer] Other 02-17-2021 Toradol 30 mg/ml Edie Wid ashli Other [employer] Other 06-10-2020 Depo-Medrol 80 mg Edie Wi dmer Other [employer] Other 06-19-2019 Depo-Medrol 40 mg Edie Wi dmer Other [employer] Other 11-28-2018 Toradol per 15 mg Edie Wi dmer Other [employer] Other 11-28-2018 Depo-Medrol 80 mg Edie Wi dmer Other [employer] Other Payers Date Payer Category Payer Private Health Insurance [id number] 2024 Dual Eligibility Medicare/Medicaid Organization [facility] DUAL COMPLETE [id number] 2024 Private Health Insurance [id number] 2024 Medicare MEDICARE [id number] 2024 Medicare (Managed Care) 1.2. [id number] 2024 Private Health Insurance [id number] 2022 Medicaid [id number]. [id number] .[id number] 2022 Self-pay [id number] 2018 Unknown [id number] 1971 Unknown [id number] 2.16.840.1.479801.3.579.2 .175 1971 Unknown [id number] 2.16.840.1.662777.3.579.2 .593 1971 Unknown [id number] 2.16.840.1.774395.3.579.2 .593 1971 Unknown [id number] 2.16.840.1.692289.3.579.2 .593 1971 Unknown [id number] 2.16.840.1.718280.3.579.2 .1286 1971 Unknown [id number] 2.16.840.1.650750.3.579.2 .727 1971 Unknown [id number] 2.16.840.1.889028.3.579.2 .727 1971 Unknown [id number] 2.16.840.1.764138.3.579.2 .727 1971 Unknown [id number] 2.16.840.1.847102.3.579.2 .727 1971 Unknown [id number] 2.16.840.1.397363.3.579.2 .727 1971 Unknown [id number] 2.16.840.1.215537.3.579.2 .727 1971 Unknown [id number] 2.16.840.1.085866.3.579.2 .182 1971 Unknown [id number] 2.16.840.1.259128.3.579.2 .182 1971 Unknown [id number] 2.16.840.1.335090.3.579.2 .182 1971 Unknown [id number] 2.16.840.1.610658.3.579.2 .182 1971 Unknown [id number] 2.16.840.1.833760.3.579.2 .182 1971 Unknown [id number] 2.16.840.1.412768.3.579.2 .727 1971 Unknown [id number] 2.16.840.1.054560.3.579.2 .727 1971 Unknown [id number] 2.16.840.1.626740.3.579.2 .727 1971 Unknown [id number] 2.16.840.1.300316.3.579.2 .727 1971 Unknown [id number] 2.16.840.1.004316.3.579.2 .727 1971 Unknown [id number] 2.16.840.1.663471.3.579.2 .727 1971 Unknown [id number] 2.16.840.1.013734.3.579.2 .727 1971 Unknown [id number] 2.16.840.1.473974.3.579.2 .72 1971 Unknown [id number] 2.16.840.1.032278.3.579.2 .727 1971 Unknown [id number] 2.16.840.1.769970.3.579.2 .1971 Unknown [id number] 2.16.840.1.345805.3.579.2 .1243 1971 Unknown [id number] 2.16.840.1.883718.3.579.2 .1244 1971 Unknown [id number] 2.16.840.1.783860.3.579.2 .1244 1971 Unknown [id number] 2.16.840.1.509462.3.579.2 .72 1971 Unknown [id number] 2.16.840.1.448853.3.579.2 .727 1971 Unknown [id number] 2.16.840.1.708167.3.579.2 .1259 1971 Unknown [id number] 2.16.840.1.975369.3.579.2 .1259 1959 Medicaid [id number] 2.16.840.1.349085.19 Medicaid [facility] [place] [id number] Unknown [id number] 2.16.840.1.562210.19 Unknown HCAP/HFA/FAP Active [id number] Unknown [facility] [id number] Unknown [id number] 2.16.840.1.841480.3.579.2 .531 Unknown [id number] 2.16.840.1.325527.3.579.2 .531 Unknown [id number] 2.16.840.1.814473.3.579.2 .531 Unknown [id number] 2.16.840.1.798979.3.579.2 .531 Social History Date Type Detail Facility Tobacco smoking status WIIS Unknown if ever smoked [place], [place] Start: 1970 Sex Assigned At Not on file M [place], [place] Start: 07-31-2024 End: 11-16-2024 Sex Assigned At [employer] Other Start: 09-10-2022 End: 11-14-2024 Tobacco smoking status NHIS Never smoked tobacco (finding) [facility] Start: 1970 Sex Assigned At Female F [facility] Tobacco smoking status WIIS Tobacco smoking consumption unknown [facility] Start: 12-15-2022 End: 07-31-2024 Tobacco use and exposure Smokeless tobacco non-user [facility] Start: 07-31-2024 End: 11-16-2024 Alcoholic beverage intake Lifetime non-drinker (finding) [facility] Work Phone: Start: 07-31-2024 End: 11-16-2024 History of Social function [facility] Start: 07-21-2024 End: 11-30-2024 Exposure to SARS-CoV-2 (event) Not sure [facility] Start: 01-01-2023 End: 01-19-2024 Alcoholic beverage intake Current drinker of [facility] (finding) [facility] Childcare Unknown [facility] Start: 03-28-2020 Alcohol Comment [facility] Sexual Orientation [facility] Start: 12-02-2022 Sex Female (finding) [facility] NEGATED: Highlighted rowStart: NINF History of tobacco use Passive smoker [facility] Medical Equipment Procedure Code Equipment Code Equipment [...] Assessment Result Facility 10-12-2024 Functional Status No [facility] 10-09-2024 Functional Status N/A [facility] Clinical Notes 06-12-2021 to 04-04-2025 Telephone Encounter - Alexis Grace DPM - 04/04/2025 8:42 AM EDTTelephone Encounter - Alexis Grace DPM - 04/04/2025 8:42 AM Ye Grace DPM - 03/28/2025 2:30 PM EDT Note Date & Type Note Facility 04-04-2025 Telephone encounter Note Nail specimen consistent with onychomycosis. Liver enzyme test ordered and [facility] Miscellaneous Notes Nail specimen consistent with onychomycosis. Liver enzyme test ordered and sent to [facility]. Thank you. documented in this encounter [facility] 03-28-2025 History of Present illness Narrative Images from the original note were not included. Subjective Patient ID: Joselito Vidal is a 54 y.o. 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 Medications Current Outpatient Medications: nzvheewjya-kjjtvduudfmlf-gndpcsd e 50-325-40 MG tablet, Take 1 tablet [...] therapy. A nail nipper and electric bur lap grinder were also utilized to debride the affected nails to help reduce fungal load and to palliate the symptomatic nails. I will review the nail specimen and if there is fungal disease present I will order liver enzyme tests to [facility] in [place] to ensure adequate liver function prior to [...] Alexis Grace DPM documented in this encounter [facility] 11-30-2024 History of Present illness Narrative [facility] Cardiology Office Follow-up: Dizziness, Syncope, Follow-up, and [...] Martin Larios MD Director of Interventional Cardiology [facility] documented in this encounter [facility] Work Phone: 11-16-2024 Miscellaneous Notes Physician Transition of Care Summary Invasive Cardiovascular Lab Procedure Date: 11/16/2024 Attending: * No surgeons found in log * Resident/Fellow/Other Drawing In Hand: * No surgeons found in log * [...] 11/16/2024 2:14 PM documented in this encounter [facility] Work Phone: 11-16-2024 Surgery Postoperative evaluation and management note Physician Transition of Care Summary Invasive Cardiovascular Lab Procedure Date: 11/16/2024 Attending: * No surgeons found in log * Resident/Fellow/Other Drawing In Hand: * No surgeons found in log * [...] by: Scott Bridges MD, 11/16/2024 2:14 PM [facility] Work Phone: 11-14-2024 Note Patient Education Nephrology [...] ? 8 oz (237 mL) of milk, eptgbxr-ilujiyomnlbm-nnkgo milk, and calcium-fortifiedfruit juice. Calcium-fortified means that [...] Spinach (cooked), rhubarb, beets, sweet potatoes, and Nepalese chard. ? Peanuts. ? Potato chips, romanian fries, and baked potatoes with skin on. ? Nuts and nut products. ? Chocolate. ??? If you regularly take a diuretic medicine, make sure to eat at least 1 or 2 servings of fruits or vegetables that are high in potassium each day. These include: ? Avocado. ? Banana. ? [place], prune, carrot, or tomato juice. ? Baked [...] fish oil, or vitamin B6. ??? Take rukd-uom-wanosmj and prescription medicines only as told by your health (more content not included)... [facility] 10-23-2024 Note Progress Note-Physic charo Patient: JOSELITO VIDAL Age: 53 years Sex: Female : 1970 Associated Diagnoses: None Author: Hernandez Billings MD Postoperative Information Postoperative disposition: Postoperative disposition: To PACU. Optimetrix number: Optimetrix number [id number]. Anesthetic utilized: General. Health Status Allergies: Allergic Reactions (Selected) No Known Medication Allergies Physical Examination VS/Measurements Pain Assessment: Controlled. General: Awake, Appropriate. Respiratory: Adequate air exchange. Cardiovascular: Stable. Neurological Assessment Anesthetic outcome No anesthetic complications noted. Adequate pain relief. Review / Management Condition: Stable. Plan Transfer/Discharge: Transfer/Discharge Discharge when meets criteria ( To home ). [facility] Comment on above: Result Comment: Elec tronically [...] Daily, # 10 cap(s), Refills(s) 0, Pharmacy: [facility], 157, cm, 10/12/24 13:52:00 EST, Height/Length Dosing, 116, kg, 10/12/24 13:52:00 EST, Weight Dosing Levsin 0.125 mg SL Tab: 0.125 mg = 1 tab(s), Oral, QID, PRN for spasm, # 40 tab(s), Refills(s) 0, Pharmacy: [facility], 157, cm, 10/12/24 13:52:00 EST, Height/Length Dosing, 116, kg, 10/12/24 13:52:00 EST, Weight Dosing Roxicodone 5 mg Tab: 5 mg = 1 tab(s), Oral, q6hr, PRN for pain, # 6 tab(s), Refills(s) 0, Pharmacy: [facility], 157, cm, 10/12/24 13:52:00 EST, Height/Length [...] All Problems Apnea, sleep / SNOMED CT [id number] / Confirmed Arthritis of right kne (more content not included)... [facility] Comment on above: Result Comment: Elec tronically Signed By: Manuelito RAMIREZ, Hernandez Leavitt\.br\Date and Time Signed: 10/23/24 15:07 EST 10-19-2024 Hospital Discharge instructions Patient Education 10/19/2024 13:35:23 Cyzt-Zyrx-eg Utereroscopy,Lithotripsy, Stone Extraction, Stent Placement (CUSTOM) [facility] [place], [place] Dr. Bradford Hagen Post-operative Instructions for [...] other reasons. If it is to remain equities analyst, however, changes of the stent are required [...] arrange for your post-operative appointment (with XRAY) [phone] 10/19/2024 13:35:17 Post Op Patient Instructions - FT (CUSTOM) Follow Up Care 10/09/2024 12:57:24 With:YESENIA YUSUF Address: [address] [place] [phone] Business (1) When: Unknown Comments:6 WKS WITH GERRY AGUIAR [facility] 10-19-2024 Note Patient Education - Text [facility] [place], [place] Dr. Bradford Hagen Post-operative Instructions for [...] other reasons. 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 Any problems you or family members [...] health care provider tells you to. Taking bmyx-ayo-oyhcprh medicines, vitamins, herbs, and supplements. General instructions [...] provider. Document Revised: 07/19/2023 Document Reviewed: 07/19/2023 [employer] Patient Education 2023 [employer] Follow Up Care 10/06/2024 15:52:25 With:YESENIA YUSUF MD, URL Address: When: Unknown [facility] 10-09-2024 Note Patient Education Urology Ureteroscopy Ureteroscopy [...] including vitamins, herbs, eye drops, creams, and kovr-rsa-wccmueo medicines. ??? Any problems you or family [...] care provider tells you to. ??? Taking bsbz-eop-hdfmfkf medicines, vitamins, herbs, and supplements. General instructions [...] after the procedure? (more content not included)... [facility] 08-09-2024 History of Present illness Narrative Images from the original note were not included. Chief complaint: Back pain Subjective Joselito Toby Vidal, 53 y.o., female Patient presents today for a follow up for impaired ambulation and lumbosacral spondylosis. Patient went to pain management in [place] and states they were not able to [...] on her walker. 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 She cannot walk long distances [...] , wrist extensors , wrist flexor , railcar switcher strength 5/5. LUE Strength deltoid , biceps , triceps , wrist extensors , wrist flexor , railcar switcher strength 5/5. RLE Strength illopsoas, quadriceps, tibialis [...] sensation intact in distal extremities. Cerebellar Function: Sldmtq-jg-Qxeh Normal. Gait and Station: Gait Ambulates with [...] discontinued this. She has trialed and failed kbdl-bof-yksjchx medication with ibuprofen and Tylenol at appropriate [...] has been previously seen pain management in [place] but is unable to access them as regularly as needed. Polypharmacy The patient is still on an extensive list of medications. 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 She states many [...] She was previously seen pain management in [place] but with driving so far and with injections lasting so sure she is having difficulty getting there as frequently is as needed. Pt has been fully educated on their diagnosis, lab results, treatment options, follow up plan, return instructions, and discussion of mental health issues documented in this encounter [facility] 07-31-2024 History of Present illness Narrative Patient presents for cardiovascular evaluation in the [facility] office at the request of AMARILIS Schmidt for the following: Chief Complaint: New Patient Visit HISTORY OF PRESENT ILLNESS: Joselito Vidal is a 53 y.o. female with prior cardiac history of POTS. Other pertinent medical history includes spinal stenosis. Patient reports symptoms of feeling overheated and dizzy. Off balance, was seen at [facility] [place] [facility]. Was diagnosed with POTS clinically. Started on metoprolol. Holter subsequently. In general patient reports pain. Palpitations, hot, dizzy. Food can trigger. Getting up quickly. No syncope, but has had near syncope. Patient decribes no chest pain. Patient reports experiencing mild weight gain, with some increase consistently exchange mechanic the past year. The patient also reports [...] Martin Larios MD documented in this encounter [facility] Work Phone: 02-15-2024 History of Present illness [...] Doing physical therapy and aquatic therapy at [facility]. No other test therapy or updates from [...] 1, low risk. Assessment: Lumbar spondylosis + SHARMILA working on [employer] new machine Plan: Periodic Controlled Substance Monitoring: [...] Refill: 0 Orders Placed This Encounter Procedures OK DSTR NROLYTC AGNT PARVERTEB FCT SNGL LMBR/SACRAL [...] evaluation -Reviewed EMG B LE above from [facility], all questions answered -Will continue [...] cord stimulation at this time, previously given [employer] information, Psych for evaluation on hold. -Underwent [...] previously recommended by us or other medical technologist microbiology. Risks of not pursing these recommendations were [...] L3 [x] L4 [] Left [x] L5 [address] [place] [address], [address] [place] [address] / documented in this encounter [facility] 01-19-2024 History of Present illness Narrative Images from the original note were not included. Joselito Vidal is a 53 y.o. female who presents for annual sewer and cutter finger buff material exam. 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 Hysterectomy: no She [...] spot. She was then seen by a electrical machinist for an area on her face and [...] Past Medical History: Diagnosis Date Diabetes mellitus ([facility]) Hypertension POTS (postural orthostatic tachycardia syndrome) Spinal [...] postmenopausal, is stopping POPs. RTO for annual sewer and cutter finger buff material exam and / or PRN. AMARILIS Meek APRN-CNP 01/19/24 [id number] documented in this encounter [facility] 01-02-2024 Miscellaneous Notes Patient needs annual (12/15/22). One refill sent. Please call and get her scheduled. Thank you. Pt has Annual scheduled for January 18. [facility] 01-02-2024 Telephone encounter Note Patient needs annual (12/15/22). One refill sent. Please call and get her scheduled. Thank you. [facility] 01-02-2024 Telephone encounter Note Pt has Annual scheduled for January 18. [facility] 12-15-2023 Miscellaneous Notes Patient due for annual (12/15/22). One refill sen. Pt has Annual exam scheduled for January 18. documented in this encounter [facility] 12-15-2023 Telephone encounter Note Patient due for annual (12/15/22). One refill sen. [facility] 12-15-2023 Telephone encounter Note Pt has Annual exam scheduled for January 18. [facility] 04-16-2023 Evaluation note Encounter Date Diagnosis Assessment [...] Zyrtec/Claritin daily. Recommended patient follow-up over to [facility] for follow-up appointment with PCP to discuss next steps. Patient verbalizes understanding and is agreeable with treatment plan [employer] Other 06-06-2023 Evaluation note* Encounter Date Diagnosis Assessment Notes Treatment Notes Treatment Clinical Notes Jan, Prediabetes (ICD-10 - R73.03) Jan, Body mass index (BMI ) of 45.0-49.9 in adult (ICD-10 - Z68.42) Jan, Hypertension (ICD-10 - I10) Jan, Obstructive sleep apnea (ICD-10 - G47.33) Jan, Knee osteoarthritis (ICD-10 - M17.9) Jan, Metabolic syndrome X (ICD-10 - E88.81) [employer] Other 04-26-2023 Evaluation note* Encounter Date Diagnosis Assessment Notes Treatment Notes Treatment Clinical Notes Nov, Obstructive sleep apnea (ICD-10 - G47.33) Nov, Morbid (severe) obesity due to excess calories (ICD-10 - E66.01) [employer] Other 04-19-2023 Evaluation note* Encounter Date Diagnosis [...] following goals: - explore exercise options: [employer], [employer] [place] [employer], and home execises; PARTIALLY MET - add more veggies - PARTIALLY MET [employer] Other 04-17-2023 Evaluation note* Encounter Date Diagnosis [...] Encounter for weight management (ICD-10 - Z76.89) [employer] Other 04-04-2023 Evaluation note* Encounter Date Diagnosis [...] goals: - NEW: explore exercise options: [employer], [employer] [place] [employer], and home execises - NEW: add more veggies [employer] Other 03-11-2023 Evaluation note* Encounter Date Diagnosis [...] hip pain may be exacerbated by knee [employer] Other 03-07-2023 Evaluation note* Encounter Date Diagnosis [...] no improvement in 2 to 3 days. [employer] Other 03-03-2023 Evaluation note* Encounter Date Diagnosis [...] routine Strongly encouraged to connect with our wig maker for exercises she is able to do [...] Encounter for weight management (ICD-10 - Z76.89) [employer] Other 03-02-2023 Evaluation note* Encounter Date Diagnosis [...] (ICD-10 - J32.4) Take medication as directed. [employer] Other 02-07-2023 Evaluation note* Encounter Date Diagnosis [...] patient set personal goal using given handout. [employer] Other 02-02-2023 Evaluation note* Encounter Date Diagnosis [...] (ICD-10 - F41.1) Continue current treatment program [employer] Other 02-01-2023 Evaluation note* Encounter Date Diagnosis [...] discuss other options through menopause with her SHERIFF OFFICER. Optimize sleep quality and quantity using good [...] the week. Encouraged to take advantage of wig maker available at [facility] that can help work around limitations. [...] prevent diabetes. Consider metformin or GLP-1 agonist. [employer] Other 01-22-2023 Evaluation note* Encounter Date Diagnosis [...] no improvement in 2 to 3 days [employer] Other 01-16-2023 Evaluation note* Encounter Date Diagnosis [...] then have labs rechecked the day after [employer] Other 01-12-2023 Evaluation note* Encounter Date Diagnosis Assessment Notes Treatment Notes Treatment Clinical Notes Aug, Urine retention (ICD-10 - R33.9) very concerned patient is having symptoms of neurogenic bladder due to symptoms occuring after a recent fall. Recommend patient go to ER due to inability to urinate and she has not urinated since yesterday evening. [employer] Other 12-29-2022 Evaluation note* Encounter Date Diagnosis Assessment Notes Treatment Notes Treatment Clinical Notes Jul, LACEY (generalized anxiety disorder) (ICD-10 - F41.1) Jul, Other low back pain (ICD-10 - M54.59) Jul, Insomnia, unspecified type (ICD-10 - G47.00) Jul, Other spondylosis with radiculopathy, lumbar region (ICD-10 - M47.26) MME is 9.7 per day and OARRS is checked. Jul, Skin lesion (ICD-10 - L98.9) [employer] Other 12-19-2022 Evaluation note* Encounter Date Diagnosis Assessment Notes Treatment Notes Treatment Clinical Notes Jul, Other spondylosis with radiculopathy, lumbar region (ICD-10 - M47.26) [employer] Other 12-01-2022 Evaluation note* Encounter Date Diagnosis [...] work then we may discuss seeing ENT [employer] Other 11-21-2022 Evaluation note* Encounter Date Diagnosis Assessment Notes Treatment Notes Treatment Clinical Notes Jun, Left otitis media with effusion (ICD-10 - H65.92) Jun, Thrush (ICD-10 - B37.0) Jun, DDD (degenerative disc disease), lumbar (ICD-10 - M51.36) [employer] Other 11-03-2022 Evaluation note* Encounter Date Diagnosis [...] call office and we will send referal [employer] Other 10-31-2022 Evaluation note* Encounter Date Diagnosis [...] Above note written by Javed Arreola MA, Real Time Trader. Edited and approved by Dr. Pop Blandon MD. [employer] Other 10-27-2022 Evaluation note* Encounter Date Diagnosis [...] F41.1) Added as needed medication as discussed. [employer] Other 09-26-2022 Evaluation note* Encounter Date Diagnosis [...] index [BMI] 40.0-44.9, adult (ICD-10 - Z68.41) [employer] Other 09-26-2022 Evaluation note* Encounter Date Diagnosis [...] index [BMI] 40.0-44.9, adult (ICD-10 - Z68.41) [employer] Other 09-22-2022 Evaluation note* Encounter Date Diagnosis Assessment Notes Treatment Notes Treatment Clinical Notes Apr, Lumbar degenerative disc disease (ICD-10 - M51.36) Keep upcoming appointments with pain management appointments and neurosurgery appt as discussed. Apr, Acute non-recurrent frontal sinusitis (ICD-10 - J01.10) Take medication as directed. Recommend taking OTC Zyrtec or allergy until after harvest season [employer] Other 08-29-2022 Evaluation note* Encounter Date Diagnosis [...] further steps are needed. Patient states understanding. [employer] Other 08-24-2022 Evaluation note* Encounter Date Diagnosis [...] note writ ten by Javed Arreola CMA, Real Time Trader. Edited and approved by Dr. Pop Blandon MD. [employer] Other 08-18-2022 Evaluation note* Encounter Date Diagnosis Assessment Notes Treatment Notes Treatment Clinical Notes Mar, Strain of lumbar region, initial encounter (ICD-10 - S39.012A) [employer] Other 08-08-2022 Evaluation note* Encounter Date Diagnosis [...] to be seen. Also always know the [facility] Emergency Number is 24 hours a day available, even on holidays there is someone you can reach out to. Also we will check other labs yearly to screen for other health issues. Please remember we are a team and your opinion is very important in all of your healthcare decisions Mar, Other spondylosis with radiculopathy, lumbar region (ICD-10 - M47.26) [employer] Other 07-05-2022 Evaluation note* Encounter Date Diagnosis [...] Feb, Left lumbar pain (ICD-10 - M54.50) [employer] Other 06-01-2022 Evaluation note* Encounter Date Diagnosis Assessment Notes Treatment Notes Treatment Clinical Notes Jan, Generalized pain (ICD-10 - R52) Jan, Strain of lumbar region, initial encounter (ICD-10 - S39.012A) [employer] Other 05-19-2022 Evaluation note* Encounter Date Diagnosis [...] December, Other Above note writ ten by aJved Arreola CMA, Real Time Trader. Edited and approved by Dr. Pop Blandon MD. [employer] Other 04-14-2022 Evaluation note* Encounter Date Diagnosis [...] note writ ten by Luli Garcias LPN, Real Time Trader. Edited and approved by Dr. Pop Blandon MD. [employer] Other 03-17-2022 Evaluation note* Encounter Date Diagnosis [...] note writ ten by Javed Arreola MA, Real Time Trader. Edited and approved by Dr. Pop Blandon MD. [employer] Other 03-10-2022 Evaluation note* Encounter Date Diagnosis [...] discussed so you can talk about referrals. [employer] Other 03-02-2022 Evaluation note* Encounter Date Diagnosis Assessment Notes Treatment Notes Treatment Clinical Notes Oct, Generalized pain (ICD-10 - R52) [employer] Other 01-31-2022 Evaluation note* Encounter Date Diagnosis [...] note writ ten by Javed Arreola MA, Real Time Trader. Edited and approved by Dr. Pop Blandon MD. [employer] Other 12-13-2021 Evaluation note* Encounter Date Diagnosis [...] given Flexeril to help relax her muscles. [employer] Other 10-14-2021 Evaluation note* Encounter Date Diagnosis [...] Patient care instructions given in writting by [facility] At Home document. [employer] Other Evaluation + Plan note Future Appointments Appointment Date:10/12/2024 01:30:00 PM Scheduled Provider: Location:[facility] Appointment Type:Surgical PAT FT Appointment Date:10/19/2024 11:30:00 AM Scheduled Provider: Location:[facility] Appointment Type:Surgery FT Appointment Date:10/23/2024 10:15:00 AM Scheduled Provider:Obdulio Matamoros DO Location[facility] [place] Appointment Type:Pain Management - New (FT) [facility] Evaluation + Plan note Future Appointments Appointment Date:10/19/2024 11:30:00 AM Scheduled Provider: Location:[facility] Appointment Type:Surgery FT Appointment Date:10/23/2024 10:15:00 AM Scheduled Provider:Obdulio Matamoros DO Location:[facility] Appointment Type:Pain Management - New (FT) [facility] evaluation + Plan note Future Appointments Appointment Date:10/23/2024 10:15:00 AM Scheduled Provider:Obdulio Matamoros DO Location:[facility] Appointment Type:Pain Management - New (FT) [facility] Evaluation + Plan note Future Appointments Appointment Date:11/02/2024 10:15:00 AM Scheduled [facility]:XR Abdomen (FT) Appointment Date:11/02/2024 10:30:00 AM Scheduled Provider: [facility]oint[facility] Type:US Abdominal/Pelvis () Appointment Date:11/20/2024 10:20:00 AM Scheduled Provider:YESENIA YUSUF MD Location:[facility] Appointment Type:URO Office Visit Future Scheduled Tests Radiology* XR Abdomen 1 View 11/02/24 * US Renal 11/02/24 [facility] evaluation + Plan note Future Appointments Appointment Date:01/29/2025 11:00:00 AM Scheduled Provider:YESENIA YUSUF MD Location:[facility] Appointment Type:URO Office Visit [facility] evaluhaqvw noteNo InformationNort Urgent Career Other Evalurmmay noteNo assessment information available [facility] Work Phone: evaluation note* Diagnosis Onset Date Resolution Status Obesity, morbid, BMI 40.0-49.9 acute Obstructive sleep apnea of adult acute [facility] Work Phone: evaluation note* Diagnosis Lumbar radiculopathy- Primary Thoracic or lumbosacral neuritis or radiculitis, unspecified Polypharmacy Issue of repeat prescriptions documented [facility] encounter [facility]* Diagnosis Postural dizziness with near syncope- Primary Abnormal EKG Nonspecific abnormal electrocardiogram (ECG) (EKG) documented in this encounter [facility] Work Phone: Evaluation note* Diagnosis Lumbosacral spondylosis without myelopathy- Primary [facility] Encounter for initial prescription of contraceptive pills documented in this encounter [facility]* Diagnosis Well woman exam with routine gynecological exam- Primary Routine gynecological examination Encounter for screening mammogram for malignant neoplasm of breast Standardized adult depression screening tool completed Skin lesion of right leg Unspecified disorder of skin and subcutaneous tissue documented in this encounter [facility]* Diagnosis Postural dizziness with near syncope documented in this encounter [facility] Work Phone: Evaluation note* Diagnosis Postural dizziness with near syncope documented in this encounter [facility] Work Phone: Evaluation note* Diagnosis Onychomycosis- Primary Dermatophytosis of nail Right foot pain Pain in soft tissues of limb Plantar wart Left foot pain Pain in soft tissues of limb documented in this encounter [facility]* Diagnosis Onychomycosis- Primary Dermatophytosis of nail documented in [facility] HealthcareHistory general Narrative - Reported* Type Description Date Medical History HTN Hospitalization History [facility] Other Hissyey general Narrative - Reported* Type Description Date Medical History HTN Medical History back pain Hospitalization History [facility] Other Hisalxl general Narrative - Reported* Type Description Date Medical History HTN Medical History Back pain Medical History Day time fatigue Medical History Depression Medical History Gestational diabetes in the past Medical History Spinal stenosis Medical History Chronic pain requiring narcotic use Hospitalization History [facility] Other Hisxzjn general Narrative - Reported* Type Description Date Medical History HTN Medical History Back pain Medical History Day time fatigue Medical History Depression Medical History Gestational diabetes in the past Medical History Spinal stenosis Medical History Chronic pain requiring narcotic use Hospitalization History saliva stones Hospitalization History [facility] ER pneumonia 09/2021 [employer] Other History general Narrative - [facility] [employer] Other Hospital course Narrative No data available for this section [facility] Hospital Discharge instructions Additional Instructions Use your albuterol inhaler as prescribed for your shortness of breath and wheezing. Take Levaquin and prednisone as prescribed for pneumonia and laryngitis follow-up with the PCP for reevaluation in 5 to 7 days. .[facility] Work Phone: Hospital Discharge instructions No data available for this section [facility] InstructionsNot on filedocumented in this encounter [employer] SystemInstructions* Attachments The following attachments cannot be sent through Care Everywhere. * Menopause (Danish) * Health Risks of a High BMI (Danish) [facility] No data available for this section [facility] Reason for referral (narrative)* Consultation (Routine) - Pending Review Specialty Diagnoses / Procedures Referred By Lalit cisneros Referred To Contact Dermatology Diagnoses Skin lesion of right leg Naima Bates APRN-CNP [address] [place] [address] Emely Veloz MD [facility] [address] Referral ID Status Reason Start Date Expiration Date Visits Requested Visits Authorized [id number] Pending Review Specialty Services Required 01/19/2024 01/18/2025 1 1 DekkunReason for visit NarrativeNeurosurgery Referral Update [facility] [employer] Other Relpcv for visit NarrativePain Medicine [facility] [employer] Other Reason for visit NarrativeDermatology Referral Update [facility] [employer] Other reason for visit Narrative* Consultation (Routine) - Pending Review Specialty Diagnoses / Procedures Referred By Lalit cisneros Referred To Contact Neurology Diagnoses Difficulty in walking, not elsewhere classified Spondylolysis, lumbosacral 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 Ellie Ingram, FABRICIO [address] [place] [address] Phone: tel: fax: Joesph Macedo MD [address] [place] [address] Phone: tel: fax: Referral ID Status Reason Start Date Expiration Date Visits Requested Visits Authorized [id number] Pending Review Consult and Treat 4 01/14/2025 1 1 [facility] Healthcare[facility] for [facility] Narrative* Cardiovascular (Routine) - Authorized Specialty Diagnoses / Procedures Referred By Lalit cisneros Referred To Contact Cardiology Diagnoses Postural dizziness with near syncope [place] [address], [address] [address] Phone: tel: fax: Referral ID Status Reason Start Date Expiration Date V isits Requested Visits Authorized [id number] Authorized 07/31/2024 07/31/2025 1 1 [facility] Work Phone: Summary Purpose Family History No [...] CONTRAST Edie Singh N, DO [address] [place] [address] Reason his shefflied o ffice - patient has history of chronic back pain and would like opinion if surgery is option Diagnosis 1 Pain in left lumbar region of back (M54.50) Diagnosis 2 Lumbar degenerative disc disease (M51.36) Diagnosis 3 DDD (degenerative di sc disease), lumbar (M51.36) Diagnosis 4 Other spondylosis wi th radiculopathy, lumbar region (M47.26) Referral Organization [facility] Family Medicin e Rafi Referring Provider First [...] AM >[facility] 10:40:16 AM >Yes, they have other Neurosurgeons there, then Yes [facility] 03/06/2022 07:55:07 AM >Waiting for office notes to be locked before sending referral [facility] 03/10/2022 10:08:27 AM >Referral was fax Reason *FU 07/09 lumbar p ain [facility] Diagnosis 1 Lumbar degenerative disc disease (M51.36) Referral Organization [facility] Medicin [facility] Rafi Referring Provider First Name Ellie Referring Provider Last Name Juan Jose Referring Provider Specialty Nurse Pract itioner Referred Organization [facility] Referred Address [address] Referred Provider Specialty Pain Medicin e Referral Priority Routine General Notes Serene Lucas 03:02:38 PM >Received and fax referral today Clinical Notes Office [phone] Reason CANCELLED recently changed skin lesions on face Diagnosis 1 Skin lesion (L98.9) Referral Organization [facility] Family Jeffklaus kathleen Mckee Referring Provider First Name Ellie Referring Provider Last Name Juan Jose Referring Provider Specialty Nurse Pracblayne sanchez Referred Organization [facility] Referred Address [address] [place],[address] Referred Provider Specialty Dermatology Referral Priority Routine [...] Diagnosis 1 Sleep apnea (G47.30) Referral Organization [facility] Referring Provider First Name Danya Referring Provider Last Name byron Referring Provider Specialty Nurse Kacie sanchez Referred Organization [facility] Referred Address [address], [place],[address] Referred Provider Specialty Sleep Medici ne Referral Priority Routine General Notes Xiomy Solo 2022 08:06:34 AM > Faxed to sleep lab. Xiomy Solo 10/22/2022 08:01:36 AM > Per Central Scheduling, order was received but pt has not been contacted yet to schedule. Specialty Diagnoses / Procedures Referred By Lalit cisneros Referred To Contact Diagnoses Lumbosacral spondylosis without myelopathy Procedures OK DSTR NROLYTC AGNT PARVERTEB FCT SNGL LMBR/SACRAL Patricia Walker MD [address] [place] [address] Referral ID Status Reason Start Date Expiration Date Visits Re quested Visits Authorized [id number] Open 02/16/2024 02/15/2025 1 1 Assessments Diagnosis [...] section and content) DATE CREATED AUTHOR 08/14/2020 [facility] DATE CREATED AUTHOR AUTHOR'S ORGANIZ ATION 11/20/2022 [facility] DATE CREATED AUTHOR AUTHOR'S ORGANIZ ATION 01/21/2024 [facility] DATE CREATED AUTHOR AUTHOR'S ORGANIZ ATION 01/22/2024 [facility] DATE CREATED AUTHOR AUTHOR'S ORGANIZ ATION 01/23/2024 [facility] DATE CREATED AUTHOR AUTHOR'S ORGANIZ ATION 02/25/2024 [facility] DATE CREATED AUTHOR AUTHOR'S ORGANIZ ATION 03/23/2024 [facility] DATE CREATED AUTHOR AUTHOR'S ORGANIZ ATION 05/06/2024 [facility] DATE CREATED AUTHOR AUTHOR'S ORGANIZ ATION 06/25/2024 [facility] DATE CREATED AUTHOR AUTHOR'S ORGANIZ ATION 10/14/2024 [facility] DATE CREATED AUTHOR AUTHOR'S ORGANIZ ATION 10/15/2024 [facility] DATE CREATED AUTHOR AUTHOR'S ORGANIZ ATION 10/21/2024 [facility] DATE CREATED AUTHOR AUTHOR'S ORGANIZ ATION 11/04/2024 [facility] DATE CREATED AUTHOR AUTHOR'S ORGANIZ ATION 11/16/2024 [facility] DATE CREATED AUTHOR AUTHOR'S ORGANIZ ATION 12/03/2024 [facility] DATE CREATED AUTHOR AUTHOR'S ORGANIZ ATION 02/27/2025 [facility] DATE CREATED AUTHOR AUTHOR'S ORGANIZ ATION 03/12/2025 [facility] DATE CREATED AUTHOR AUTHOR'S ORGANIZ ATION 03/30/2025 [facility] EP[facility] DATE CREATED AUTHOR AUTHOR'S ORGANIZ ATION 04/08/2025 [facility] Reason for Visit (unrecogniz ed section and content) Status Reason Specialty Diagnoses / Procedures Referre d By Contact Referred To Contact Closed Radiology Diagnoses Lateral epicondylitis, left elbow Pain in left elbow Procedures HC MRI-UPPER EXT JNT WO CONT Edie Singh, DO [address] [place] [address] [address] [place] [address] Reason Comments New Patient Visit Specialty Diagnoses / Procedures Referred By Lalit t Referred To Contact Diagnoses Abnormal EKG Procedures ECG 12 lead (Clinic Performed) Martin [place] [id number] [place] [address] [address] [place] [address] Phone: tel: fax: Referral ID Status Reason Start Date Expiration Date V isits Requested Visits Authorized [id number] Authorized 07/31/2024 07/31/2025 1 1 Reason Comments Med Refill Reason Comments Dizziness Syncope Follow-up Results Specialty Diagnoses / Procedures Referred By Lalit t Referred To Contact Cardiology Diagnoses Postural dizziness with near syncope Procedures Follow Up In Cardiology Martin Larios MD [address] [place] [address] [address], [facility] [address] [place] [address] Phone: tel: fax: Referral ID Status Reason Start Date Expiration Date V isits Requested Visits Authorized [id number] Pending Review 07/31/2024 07/31/2025 1 1 Reason Comments Plantar 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 54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 [...] Member Role Status Dates Ellie Ingram , SEWING MACHINE ADJUSTER-C Primary Care Provider, Atten ding Provider Active Team Status: Inactive Member Role Status Dates Ellie Juan Jose , SEWING MACHINE ADJUSTER-C Primary Care Provider, Atten ding Provider Active Team Status: Active Member Role Status Dates Ellie Juan Jose , SEWING MACHINE ADJUSTER-C Primary Care Provider Active Team Status: Inactive Member Role Status Dates Ellie Juan Jose , SEWING MACHINE ADJUSTER-C Primary Care Provider Active Edie Bolton DO Emergency Provider Active Team Status: Inactive Member Role Status Dates Ellie Juan Jose , SEWING MACHINE ADJUSTER-C Primary Care Provider Active Susana Ellis NP-C Attending Provider Active Team Status: Inactive Member Role Status Dates Ellie Juan Jose , SEWING MACHINE ADJUSTER-C Primary Care Provider Active Danya Carty APRN Referring Provider Active Dario Olmedo MD Attending Provider Active Team Status: Inactive Member Role Status Dates Ellie Juan Jose , SEWING MACHINE ADJUSTER-C Primary Care Provider Active Dario Olmedo MD Attending Provider Active Team Status: Inactive Member Role Status Dates Ellie Martinezault , SEWING MACHINE ADJUSTER-C Primary Care Provider Active Dario Palacios DO Attending Provider Active Team Status: Inactive Member Role Status Dates Ellie Martinezault , SEWING MACHINE ADJUSTER-C Primary Care Provider Active Start: November 26, 2023 End: November 26, 2023 Susan Duckworth APRN ACNP-BC Attending Provider Active Start: November 26, 2023 End: November 26, 2023 Team Status: Active Member Role Status Dates NON STAFF Primary Care Provider Active Start: October 13, 2023 Estuardo Judge DO Attending Provider Active Sta rt: October 13, 2023 Catshovel Driver Relationship Specialty Start Date End Date Unallocated, Rae Provider, [address] [place] [address] PCP - General Family Medicine 07/18/24 Ellie Ingram NP [address] [place] [address] Referring Physician 07/18/24 Catshovel Driver Relationship Specialty Start Date End Date Unallocated, Noms MD [address] [place] [address] PCP - General Family Medicine 07/18/24 Ellie Ingram NP [address] [place] [address] Referring Physician 07/18/24 Catshovel Driver Relationship Specialty Start Date End Date Ellie Ingram APRN-ALYSON [address] [place] [id number] PCP - General Family Medicine 07/18/24 Catshovel Driver Relationship Specialty Start Date End Date Ellie Ingram APRN - NP [address] [place] [address] PCP - General 03/26/22 Catshovel Driver Relationship Specialty Start Date End Date Ellie Ingram APRN-CNP [address] [place] [phone] PCP - General Family Medicine 07/18/24 Martin Larios MD [address] [place] [address] [id number] Consulting Physician Cardiology 11/09/24 [employer] Relationship Specialty Start Date End Date Ellie Ingram APRN-CNP [address] [place] [address] [phone] PCP - General Family Medicine 07/18/24 Martin Larios MD [address] [place] [phone] Consulting Physician Cardiology 11/09/24 [employer] Relationship Specialty Start Date End Date Rancho Hernandez MD [address] [place] [id number] PCP - General Family Medicine 03/16/25 Ellie Ingram NP [address] [place] [id number] Referring Physician 07/18/24 [employer] Relationship Specialty Start Date End Date Rancho Hernandez MD [address] [place] [id number] PCP - General Family Medicine 03/16/25 Ellie Ingram NP [address] [place] [id number] Referring Physician 07/18/24 [employer] Relationship Specialty Start Date End Date Rancho Hernandez MD [address] [place] [address] [phone] PCP - General Family Medicine 03/16/25 Ellie Ingram NP [address] [place] [phone] Referring Physician 07/18/24 Goals (unrecognized section and [...] BE BASED ON THE PRIMARY CLINICAL RECORDS. [facility], [facility]. provides no warranty or guarantee of the accuracy or completeness of information in this document.
== END 2025-04-26 11:53 | disposition home or self-care (01) ==
LOC: RAD 11:53
PROVIDERS: PCP Nurse Practitioner Family; Visit Provider Nurse Practitioner
DX: M54.2 Cervicalgia (principal); M47.816 Spondylosis without myelopathy or radiculopathy, lumbar region; M48.062 Spinal stenosis, lumbar region with neurogenic claudication; M46.1 Sacroiliitis, not elsewhere classified; M51.369 Other intervertebral disc degeneration, lumbar region without mention of lumbar back pain or lower extremity pain
CPT/HCPCS: 72050; 72114

== ENCOUNTER 2025-05-10 13:56 | Outpatient (RCR) | payer MEDICARE, MEDICAID, SELFPAY | END 2025-06-05 13:26 | disposition home or self-care (01) | LOC: PT 13:56 | PROVIDERS: PCP Nurse Practitioner Family; Visit Provider Nurse Practitioner Family | DX: R52 Pain, unspecified (principal) | CPT/HCPCS: 97110; 97113; 97162 ==

== ENCOUNTER 2025-05-16 09:18 | Outpatient (OUT) | payer MEDICARE, MEDICAID, SELFPAY ==
--- NOTE | 2025-05-16 09:21 | MR_ITS ---
[address] [address] Patient Name: JOSELITO VIDAL MRN: [id number] date: 1970 Sex: F Assigned Patient Location: MRI Current Patient Location: MRI Accession/Order Number: [id number] Exam Date: 05/16/2025 09:30 Report Date: 05/16/2025 13:12 At the request of: DECLAN ABRAMS NP Procedure: MR lumbar spine wo con MRI lumbar spine performed without contrast INDICATION: Lumbar degenerative disc disease, lumbar pain with bilateral lower extremity weakness for 7 years pain radiates into the feet chronic are patent with radiculopathy COMPARISON: X-rays 04/26/2025 FINDINGS: Mild dextro curvature. Otherwise, Lumbar vertebral heights and alignment maintained. Minimal anterior vertebral space narrowing L4-S1. Mild intervertebral space narrowing T12-L1 with T1/T2 hyperintense endplate changes at that level. Remaining marrow is unremarkable. Anterolisthesis L4 on L5 3 mm to degenerative/hypertrophic changes of the facets. Conus medullaris terminates normally mid L2. Incidental L1 vertebral body hemangioma. T12-L1: Broad-based disc bulge with facet arthropathy. Mild neural from narrowing. Canal is minimally narrowed. L1-L2: Mild facet arthropathy right greater than left. Trace left facet joint effusion. No focal disc protrusion. Canal and foramina otherwise patent. L2-3: Broad-based disc bulge with facet arthropathy. Tyuo-[id number]-pdbblsto bilateral neural from narrowing. Minor canal stenosis. L3-4: Disc desiccation with broad-based left extraforaminal zone bulge.. Evidence of facet arthropathy. Right foramen and canal patent. Mild left foraminal narrowing. L4-5: Circumferential disc bulge with advanced facet arthropathy and ligamentum flavum hypertrophy. Trace facet joint effusions. There is moderate to severe central canal stenosis and moderate severe to severe subarticular recess encroachment upon the traversing L5 nerve roots. Moderate bilateral neural foraminal narrowing. L5-S1: Circumferential disc bulge with endplate osteophytosis and facet arthropathy. Moderate severe left greater than right neural from narrowing identified. MR/MR lumbar spine wo con IMPRESSION: Multilevel degenerative changes notably involving the posterior elements greatest L4-5. Posterior element hypertrophic changes at L4-5 causes through 4 mm of grade 1 anterolisthesis and bilateral subarticular recess narrowing correlate with bilateral L5 radiculopathy. Otherwise mild multilevel degenerative changes elsewhere with appearing greatest L5-S1. At L5-S1, there is moderate to severe left greater than right right neural foraminal encroachment. Impression dictated by: Gunnar Hutchinson M.D. 05/16/2025 1:12 PM Dictation Location: [place] [address] Electronically authenticated by: [id number] Y Date: 05/16/2025 13:12
--- OUTSIDE RECORDS SUMMARY | 2025-05-16 09:25 | XMS_ITS | CCD ---
Author Organization [facility] Inform ion Partnership [facility] Care Team Providers Care Manager Brand Name Role Phone EDIE SINGH Referring Unavailable [...] Attending Provider DO Edie Bolton Emergency Provider RadhamdSusana Jeong Unavailable Danya Carty Unavailable Serene Bustos [...] Sung Attending Provider BROOKLYNN Carty Referring Provider [phone] MD Dario Olmedo Attending Provider Clvie Marino Unavailable LUCY Ingram Primary Care Provider LUCY Ingram Attending Provider Kera Mcclal Unavailable LUCY Ingram Primary Care Provider U DO Dario Espino Attending Provider MD Dario Olmedo Attending Provider NON STAFF Primary Care Provider Unavailabl e [...] Provider Primary Care Provi yogi Juan Jose OFFSHORING MANAGEREllie Unavailable Juan Jose LAUNDRY SUPERVISOR-TRASH COLLECTOR SUPERVISOR, Ellie Imperial Primary Care Provider Juan Jose LAUNDRY SUPERVISOR - OFFSHORING MANAGER, Ellie [facility] Care Provid er Unavailable Primary Care Provider Unavailabl e ELLIE INGRAM Primary Care Physician ELLIE INGRAM Primary Care Unavailable ELLIE INGRAM [...] NKANSAH-AMANKRA, YESENIA Referring Unavail able JUAN JOSE [facility] Unavailable ELLIE INGRAM Attending Unavailable JUAN JOSE, ELLIE Admitting Unavailable JUAN JOSE, [facility] Unavailable NKANSAH-AMANKRA, YESENIA Attending Unavail able JUAN JOSE [facility] Primary [facility] Unavailable NKANSAH-AMANKRA, YESENIA Admitting Unavail able NKANSAH-AMANKRA, YESENIA Attending Unavail able NKANSAH-AMANKRA, YESENIA Ref[facility]ail [facility] Jose LAUNDRY SUPERVISOR-TRASH COLLECTOR SUPERVISOR, [facility] Provider Martin Larios MD Unavailable MARTIN LARIOS Referring Unavailab le [facility] Primary [facility] Physician ( [phone] MARTIN LARIOS Attending Unavailab erggie [facility] MARTIN Albarran Referring Unavailab MARTIN Feliciano Attending Unavailab MARTIN Feliciano Referring Unavailab le JUAN JOSE, [facility] Unavai lable NKANSAH-AMANKRA, YESENIA Admitting Unavail able NKANSAH-AMANKRA, YESENIA Attending Unavail able NKANSAH-AMANKRA, YESENIA Referring Unavail able SOBEIDA INGRAM Admitting Unavai samyle JUAN JOSE, SOBEIDA Meyers Attending Patsyi SOBEIDA Berry Primary Care Unavai lable JUAN JOSE, SOBEIDA Meyers Primary Care Mallory Cano Attending Unavailable Rancho Hernandez MD Primary Care Provider [phone] ALEXIS GRACE Attending Unavailable ALEXIS GRACE Attending Unavailable DARIO PALACIOS Attending Unavailable ELLIE INGRAM Referring Unavailable ANAMIKA CELESTIN Attending Unavailable Allergies Allergy Classification Reported Allergen(s) Allergy Type Date of Onset Reaction(s) Facility (4 sources) No Known Medication Allergies; Translations: [No Known Medication Allergies] Propensity to adverse reactions (disorder) [facility] Repository Medications Current Medications Medication Drug Class(es) Dates Sig (Normalized) Sig (Original) acetaminophen 325 mg / butalbital 50 mg / caffeine 40 mg oral capsule (20 sources) Barbiturate, Central Nervous System Stimulant, Methylxanthine Start: 10-09-2024 take 1 capsule by mouth every four hours Esgic 325 mg-50 mg-40 mg oral capsule 1 cap(s), Oral, q4hr Headache, Refill(s) 0 Start Date: 10/09/24 Status: Ordered Repeat number: 1 take 1 tablet by more th every four hours as needed for headache sosupczryl-fvydjikeyaycx-dlodrxgd 50-325 -40 MG tablet Take 1 tablet by mouth every 4 (four) hours if needed for headaches Active acetaminophen 300 mg / codeine phosphate 30 mg oral tablet (14 sources) Opioid Agonist Start: 10-29-2022 take 1 tablet by mouth every twelve hours Acetaminophen-Codeine 300-30 MG 1 tablet as needed Orally twice a day for 30 days Oct, Active [id number] 200 actuat albuterol 0.09 mg/actuat metered dose [...] oral tablet (20 sources) Tricyclic Antidepressant Start: 04-18-2025 End: 05-08-2025 take 1 tablet by mouth at bedtime amitriptyline (Elavil) 25 MG tablet Take 25 mg by mouth at bedtime 04/18/2025 05/08/2025 Discontinued (Ineffective) Start: 12-16-2023 take 1 tablet by more th once daily amitriptyline (ELAVIL) 25 mg tablet [...] Twice a day for 30 day(s) Active azithromycin 250 mg oral tablet (2 sources) Macrolide Antimicrobial Start: 05-08-2025 End: 05-13-2025 take 2 tablets by mouth once daily, then take 1 tablet by mouth once daily azithromycin (Zithromax) 250 MG tablet Indications: Acute non-recurrent frontal sinusitis Take 2 tablets (500 mg) by mouth Daily for 1 day, THEN 1 tablet (250 mg) Daily for 4 days. 6 tablet 05/08/2025 05/13/2025 Active Calcium (1 source) Phosphate Binder, Calcium Calcium daily Active calcium carbonate 1250 mg / cholecalciferol 200 unt oral tablet (5 sources) Vitamin D Start: 06-19-2024 take 1 tablet by mouth every twelve hours Oysco 500/D 500 mg-5 mcg (200 unit) tablet Take 1 tablet by mouth every 12 hours. 06/19/2024 Active take 1 tablet by more in the morning, then take 1 tablet by mouth once at bedtime Calcium Carb-Cholecalciferol (Oyster She ll Calcium w/D) 500-5 MG-MCG tablet Take 1 tablet by mouth in the morning and 1 tablet before bedtime. Active cefdinir 300 mg oral capsule (5 sources) Cephalosporin Antibacterial Start: 07-02-2022 take 1 capsule by mouth every twelve hours Cefdinir 300 MG 1 capsule Orally every 12 hrs for 7 days Jun, Active Start: 06-12-2021 take 1 capsule by mo [facility] every twelve hours Cefdinir 300 MG 1 [...] Unit: cap(s) Repeat number: 1 Start: 07-30-2022 End: 05-08-2025 take 1 tablet by mouth in the morning cetirizine (ZyrTEC) 10 mg [...] mg SUBCUTANEOUSLY ONCE A WEEK 10/25/2023 Active DULoxetine 60 mg delayed release oral capsule (20 sources) Serotonin and Norepinephrine Reuptake Inhibitor Start: 12-16-2023 End: 05-08-2025 take 1 capsule by mouth once daily duloxetine 60 mg oral delayed release capsule 60 mg = 1 cap(s), Oral, Daily, Refills(s) 0, Anxiety Start Date: 10/09/24 Status: Ordered Start: 04-06-2022 take 1 capsule by [facility] every twelve hours DULoxetine HCl 60 MG 1 capsule Orally Twice a day for 30 day(s) Mar, Active Start: 04-06-2022 take 1 capsule by [facility] every twelve hours DULoxetine HCl 40 MG 1 capsule Orally Twice a day for 30 day(s) Mar, Active Start: 04-06-2022 take 1 capsule by [facility] every twelve hours DULoxetine HCl 20 MG 1 capsule Orally Twice a day for 30 day(s) Mar, Active empagliflozin 25 mg oral tablet (20 sources) Sodium-Glucose Cotransporter 2 Inhibitor Start: 07-12-2024 take 1 tablet by mouth once daily in the morning Jardiance 25 mg oral tablet 25 mg = 1 tab(s), Oral, qAM, weight loss, Refills(s) 0, Other (see comment) Start Date: 10/09/24 Status: Ordered Repeat number: 1 Start: 12-15-2023 take 1 tablet by more in the morning JARDIANCE 10 mg tablet tablet Take 1 tablet (10 mg total) by mouth in the morning. 12/15/2023 Active fluconazole 150 mg oral tablet (6 sources) Azole Antifungal Start: 09-25-2022 Fluconazole 150 MG 1 tablet Orally 1 tablet weekly x 3 weeks for 21 days Aug, Active fludrocortisone acetate 0.1 mg oral tablet (19 sources) Start: 10-15-2023 take 1 tablet by [...] capsule (20 sources) Anti-epileptic Agent Start: 10-09-2024 End: 05-08-2025 take 1 capsule by mouth twice daily gabapentin 400 mg Cap 400 mg = 1 cap(s), Oral, BID, Refills(s) 0, Neuropathy Start Date: 10/09/24 Status: Ordered Repeat number: 1 Start: 04-22-2022 take 1 tablet by [facility] every eight hours Gabapentin 600 MG 1 tablet Orally three times a day for 30 day(s) Mar, Active Start: 09-29-2021 take 1 capsule by [facility] every eight hours Gabapentin 300 MG 1 capsule Orally three times a day for 30 day(s) Aug, Active take 1 capsule by [facility] every eight hours gabapentin (Neurontin) 400 mg capsule Take 1 capsule (400 mg) by mouth every 8 hours. Active take 0.5 tablet by out at bedtime gabapentin (NEURONTIN) 600 MG tablet [...] Start Date: 10/09/24 Status: Ordered Start: 11-18-2023 End: 05-08-2025 take 1 tablet by mouth every eight hours as needed hydrOXYzine (ATARAX) 50 mg tablet Take 1 tablet (50 mg total) by mouth every 8 (eight) hours as needed. 11/18/2023 Active Start: 09-04-2023 take 1 tablet by more th every twelve hours hydrOXYzine HCL (Atarax) 25 mg tablet Take 1 tablet (25 mg) by mouth every 12 hours. 09/04/2023 Active Start: 11-07-2022 take 1 tablet by more th twice daily as needed hydrOXYzine HCl 25 [...] spasm, # 40 tab(s), Refills(s) 0, Pharmacy: [id number], 157, cm, 10/12/24 13:52:00 EST, Height/Length [...] daily Levofloxacin Active 750 MG PO Daily 7 October 08, 2022 1:00am 3 ml liraglutide 6 [...] MOUTH WITH FOOD TWICE DAILY 0 Active methocarbamol 750 mg oral tablet (2 sources) Muscle Relaxant Start: 2024 End: 2024 take 1 tablet by mouth every four hours as needed methocarbamol (Robaxin) 750 MG tablet Take 750 mg by mouth every 4 (four) hours if needed 01/30/2025 05/08/2025 Discontinued (Ineffective) methylPREDNISolone (20 sources) Corticosteroid Start: 2024 End: 2024 methylPREDNISolone (Medrol Dospak) 4 MG tablets Indications: Pain Follow schedule on package instructions 21 tablet 05/08/2025 05/15/2025 Active Start: 07-25-2024 End: 12-17-2024 take 1 tablet by mouth once methylPREDNISolone [...] mg metoprolol tartrate 25 mg oral tablet (20 sources) beta-Adrenergic Kaylin Start: 12-15-2023 take 1 tablet by mouth twice daily Lopressor 25 mg oral tablet 25 mg = 1 tab(s), Oral, BID, Refills(s) 0, High blood pressure Start Date: 10/09/24 Status: Ordered Repeat number: 1 midodrine hydrochloride 2.5 mg oral tablet (19 sources) alpha-Adrenergic Agonist Start: 10-12-2024 take 1 [...] 07/31/2024 12/17/2024 Discontinued (Med List Cleanup) nystatin [id number] unt/ml oral suspension (1 source) Polyene Antifungal Start: 07-20-2022 take 5 mL by mouth four times daily Nystatin [id number] UNIT/ML 5 ml Mouth/Throat Four times a [...] pain, # 6 tab(s), Refills(s) 0, Pharmacy: [id number], 157, cm, 10/12/24 13:52:00 EST, Height/Length Dosing, 116, kg, 10/12/24 13:52:00 EST, Weight Dosing Start Date: 10/19/24 Status: Ordered Ozempic, 0.25 or 0.5 MG/DOSE, 2 MG/3ML solution pen-injector (5 sources) Start: 04-19-2025 inject 0.25 mg by subcutaneous injection every week Ozempic, 0.25 or 0.5 MG/DOSE, 2 MG/3ML solution pen-injector INJECT 0.25mg SUBCUTANEOUSLY (UNDER THE SKIN) ONCE A WEEK 04/19/2025 Active pantoprazole 20 mg delayed release oral tablet (20 sources) Proton Pump Inhibitor Start: 10-09-2024 PANTOPRAZOLE [...] 10-29-2022 take 1 capsule by mo [facility] every twelve hours Pregabalin 150 MG 1 [...] (Therapy completed) spironolactone 100 mg oral tablet (19 sources) Aldosterone Antagonist Start: 10-09-2024 take 1 [...] by mouth in the morning. 10/20/2023 Active End: 05-08-2025 take 1 tablet by mouth once daily spironolactone (Aldactone) 25 MG tablet Take 25 mg by mouth Daily 05/08/2025 Discontinued (Therapy completed) tamsulosin hydrochloride 0.4 mg oral capsule (2 sources) alpha-Adrenergic Kaylin Start: 10-19-2024 take 1 capsule by mouth once daily Flomax 0.4 mg Cap 0.4 mg = 1 cap(s), Oral, Daily, # 10 cap(s), Refills(s) 0, Pharmacy: [id number], 157, cm, 10/12/24 13:52:00 EST, Height/Length [...] Date: 10/12/24 Status: Ordered Repeat number: 1 terbinafine 250 mg oral tablet (6 sources) Allylamine Antifungal Start: 04-06-2025 End: 07-05-2025 take 1 tablet by mouth once daily terbinafine (LamISIL) 250 MG tablet Indications: Onychomycosis Take 1 tablet (250 mg) by mouth Daily 90 tablet 04/06/2025 07/05/2025 Active tiZANidine 4 mg oral capsule (20 sources) [...] as needed for 30 days Active topiramate 50 mg oral tablet (20 sources) Start: 05-08-2025 End: 05-08-2026 topiramate 50 MG tablet Indications: Primary insomnia Take 50 mg by mouth Daily If medication is ineffective x 3 days then may increase to 100mg-2tabs 90 tablet 3 05/08/2025 05/08/2026 Active Start: 10-09-2024 End: 05-08-2025 take 1 mg by mouth twice daily [...] 02/15/2024 Discontinued (DOSE ADJUSTMENT) Start: 12-16-2023 End: 05-08-2025 take 1 tablet by mouth once daily topiramate 25 mg Tab 25 mg = 1 tab(s), Oral, Daily, Refills(s) 0, Neuropathy Start Date: 10/09/24 Status: Ordered Repeat number: 1 traMADol hydrochloride 50 mg oral tablet (8 [...] SUBCUTANEOUSLY ONCE A WEEK 0 10/25/2023 Active vitamin b12 1 mg/ml injectable solution (2 sources) Vitamin B12 Start: 03-25-2025 cyanocobalamin (Vitamin B-12) 1000 MCG/ML injection Inject 1,000 mcg into the shoulder, thigh, or buttocks every 28 (twenty-eight) days 03/25/2025 Active Vitamin D (1 source) Vitamin D [...] Once a day for 9 days Active Dulaglutide (Trulicity) 3 MG/0.5ML solution auto-injector (9 sources) End: 05-02-2025 Dulaglutide (Trulicity) 3 MG/0.5ML solution auto-injector Inject under the skin 05/02/2025 Discontinued (Therapy completed) Dulaglutide (Aristeo licity) 3 MG/0.5ML solution auto-injector Inject under the skin Active Handicap placards as directe d (20 [...] ml Feb, 30 mg Start: 02-17-2021 Start: 06-21-2021 Toradol 30 mg/ ml Jan, 60 mg Problems Active Problems Problem Classification Problem Date Documented Date Episodic/Chronic Administrative/social admission (2 sources) Persons encountering health services in other specified circumstances Episodic Allergic reactions (1 source) Unspecified contact dermatitis, unspecified cause Episodic Anxiety disorders (20 sources) Generalized anxiety disorder; Translations: [Generalized anxiety disorder] Onset: 10-14-2023 Chronic Chronic kidney disease (2 sources) Chronic kidney disease stage 1; Translations: [Chronic kidney disease, stage 1] 05-08-2025 Chronic Coma; stupor; and brain damage (20 [...] diseases Z20.828] Onset: 06-12-2021 Resolved: 06-12-2021 Episodic Miscellaneous mental health disorders (2 sources) Primary insomnia; Translations: [Primary insomnia] 05-08-2025 Chronic Mood disorders (20 sources) Recurrent major depressive episodes, mild ; Translations: [Major depressive disorder, recurrent, mild] Onset: 04-06-2022 Resolved: 04-27-2022 Chronic Mycoses (4 sources) Candidal stomatitis; Translations: [Onychomycosis] Episodic Osteoarthritis (20 sources) Arthritis of right knee; Translations: [Unilateral primary osteoarthritis, right knee] Onset: 10-07-2023 Chronic Other aftercare (2 sources) Polypharmacy ; Translations: [Other [place] [facility] (current[facility] drug therapy] 08-09-2024 Episodic Other circulatory [...] source) Pain in right hip Episodic Other non-traumatic joint disorders (2 sources) Joint pain; Translations: [Pain in other joint] 05-08-2025 Episodic Other nutritional; endocrine; and metabolic disorders [...] disorders (1 source) Metabolic syndrome Chronic Other nutritional; endocrine; and metabolic disorders (2 sources) Obesity caused by energy imbalance; Translations: [Morbid (severe) obesity due to excess calories] 05-08-2025 Chronic Other nutritional; endocrine; and metabolic disorders (2 sources) Obese class III; Translations: [Obesity, class 3] 05-08-2025 Chronic Other nutritional; endocrine; and metabolic disorders (2 sources) Weight increased; Translations: [Abnormal weight gain] 05-08-2025 Episodic Other screening for suspected conditions (not mental disorders or infectious disease) (8 sources) Encounter for screening mammogram for malignant neoplasm of breast; Translations: [Electrocardiogram abnormal] Onset: 01-19-2024 07-31-2024 Episodic Other skin disorders (1 source) Disorder of the skin and subcutaneous tissue, unspecified Episodic Other upper respiratory infections (20 sources) Chronic pansinusitis; Translations: [Chronic pansinusitis] Chronic Other upper respiratory infections (15 sources) Acute maxillary sinusitis, unspecified; Translations: [Acute [...] unclassified (4 sources) Menopause present 10-12-2024 Episodic Residual codes; unclassified (4 sources) Pain; Translations: [Pain, unspecified] 05-08-2025 Episodic Screening and history of mental health and substance abuse codes (2 sources) Encounter for screening for depression; Translations: [Standardized adult depression screening tool completed ] Onset: 01-19-2024 01-19-2024 Episodic Spondylosis; intervertebral disc disorders; other back problems (20 sources) Arthritis of facet joint of lumbar spine; Translations: [Spondylosis without myelopathy or radiculopathy, lumbar region] Onset: 09-29-2021 Resolved: 04-22-2022 Chronic Thyroid disorders (2 sources) Acquired hypothyroidism; Translations: [Hypothyroidism, unspecified] 05-08-2025 Chronic Unclassified (1 source) Unclassified (12 sources) Other low back pain; Translations: [Other low back pain] Unclassified (1 source) Dietary counseling and surveillance; Translations: [Dietary counseling and surveillance] Onset: 02-02-2023 Unclassified (1 source) Low back pain, unspecified; Translations: [Low back pain, unspecified] Onset: 12-23-2023 Unclassified (5 sources) Obstructive hydronephrosis 10-09-2024 Unclassified (5 sources) Polypharmacy 10-09-2024 Viral infection (4 sources) Verruca plantaris; Translations: [Plantar wart] 03-28-2025 [...] the musculoskeletal system] Onset: 06-18-2023 Episodic Other skin disorders (1 source) Mass [...] Test Name Value Interpretation Reference Range Facility CBC (H/H, RBC, INDICES, WBC, PLT)on 05-13-2025 Erythrocyte distribution width (RBC) [Ratio] 13.6 % Normal 11.0-15.0 [facility] Comment on above: Performed By: #### 1 230, 1758 #### [facility] [address] [place], [place] [id number] Gaming Cage Worker: Monique Cano #### [id number], , 9 #### [facility] [address], [address] [place] [address] Gaming Cage Worker: Herb Andujar MD #### [id number] #### [facility]/[place] [id number] [facility] [place], [place] Gaming Cage Worker: Vineet Ji M.D.,PhD Hematocrit (Bld) [Volume fraction] 43.9 % Normal 35.0-45.0 [facility] Comment on above: Performed By: #### 1 230, 1758 #### [facility] [address] [place] [address] Gaming [employer]age Worker: Monique Cano #### 7600, , 89 #### [facility] [address], [address] [place] [address] Gaming Cage Worker: Herb Andujar MD #### [id number] #### [facility]/[place] [id number] [facility] [place] [employer] Cage Worker: Vineet Ji M.D.,PhD Hemoglobin (Bld) [Mass/Vol] 14.6 g/dL Normal 11.7-15.5 [facility] Comment on above: Performed By: #### 1 230, 175 #### [facility] [address] [place] [address] Gaming Cage Worker: Monique Cano #### 7600, , 899 #### [facility] [address], [address] [place] [address] Gaming Cage Worker: Herb Andujar MD #### [id number] #### [facility]/[place] [id number] [facility] [place] [employer] Cage Worker: Vineet Ji M.D.,PhD MCH (RBC) [Entitic mass] 30.4 pg Normal 27.0-33.0 [facility] Comment on above: Performed By: #### 1 230, 1758 #### [facility] [address] [place] [address] Gaming Cage Worker: Monique Cano #### 760, , 899 #### [facility] [place] [address] Gaming Cage Worker: Herb Andujar MD #### [id number] #### [facility]/[address] [place], [place] [employer]age Worker: Vineet Ji M.D.,PhD MCHC (RBC) [Mass/Vol] 33.3 g/dL Normal 32.0-36.0 [facility] Comment on above: Result Comment: For adults, a slight decrease in the calculated MCHC value (in the range of 30 to 32 g/dL) is most likely not clinically significant; however, it should be interpreted with caution in correlation with other red cell parameters and the patient's clinical condition. Performed By: #### 1 230, 175 #### [place] [address] Gaming Cage Worker: Monique Cano #### 7599, , 899 #### [facility] [address], [address] [place], [place] [id number] [employer] Cage Worker: Herb Andujar MD ### #### [facility]/[place] [id number] [facility] [place] [employer] Cage Worker: Vineet Ji M.D.,PhD MCV (RBC) [Entitic vol] 91.3 fL Normal 80.0-100.0 [facility] Comment on above: Performed By: #### 1 230, 1758 #### [place] [address] Gaming Cage Worker: Monique Cano #### 7599, , 89 #### [facility] [place] [id number] Gaming Cage Worker: Herb Andujar MD #### #### [facility] [id number] [facility] [place] [employer] Cage Worker: Vineet Ji M.D.,PhD Platelet mean volume (Bld) [Entitic vol] 9.5 fL Normal 7.5-12.5 [facility] Comment on above: Performed By: #### 1 230, 1758 #### [facility]-[address] [address] [employer] Cage Worker: Monique Cano #### 7599, , 89 #### [facility] [place] [id number] Gaming Cage Worker: Herb Andujar MD #### #### [facility]/[place] [id number] [facility] [place] [employer] Cage Worker: Vineet Ji M.D.,PhD Platelets (Bld) [#/Vol] 422 10*3/uL High 140-400 [facility] Comment on above: Performed By: #### 1 230, 1758 #### [facility] [address] [place], [place] [id number] Gaming Cage Worker: Monique Cano #### 7600, 367, 899 #### [facility] [address], [address] [place] [address] Gaming Cage Worker: Herb Andujar MD #### [id number] #### [facility]/[address] [place] [employer]age Worker: Vineet Ji M.D.,PhD RBC (d) [#/Vol] 4.81 10*6/uL Normal 3.80-5.10 [facility] Comment on above: Performed By: #### 1 230, 1758 #### [facility]-[address] [address] Gaming Cage Worker: Monique Cano #### 7600, , 899 #### [facility] [address], [address] [place] [address] Gaming Cage Worker: Herb Andujar MD #### [id number] #### [facility] [id number] [facility] [place] [employer]age Worker: Vineet Ji M.D.,PhD WBC (d) [#/Vol] 11.9 10*3/uL High 3.8-10.8 [facility] Comment on above: Performed By: #### 1 230, 1758 #### [facility] [address] [place], [place] [id number] [employer] Cage Worker: Monique Cano #### 7600, , 899 #### [facility] [address], [address] [place], [place] [id number] Gaming Cage Worker: Herb Andujar MD #### [id number] #### [facility] [id number] [facility] [place] [employer] Cage Worker: Vineet Ji M.D.,PhD COMPREHENSIVE METABOLIC PANE [facility] 05-13-2025 Albumin [Mass/Vol] 4.2 g/dL Normal 3.6-5.1 [facility] Comment on above: Performed By: #### 1 230, 175 #### [facility] [address] [place], [place] [id number] Gaming Cage Worker: Monique Cano #### 760, 367, 899 #### [facility] [address], [address] [place] [address] Gaming Cage Worker: Herb Andujar MD #### [id number] #### [facility] [id number] [facility] [place] [employer] Cage Worker: Vineet Ji M.D.,PhD Albumin/Globulin [Mass ratio] 1.6 {ratio} Normal 1.0-2.5 [facility] Comment on above: Performed By: #### 1 230, 1758 #### [place] [address] Gaming Cage Worker: Monique Cano #### 7600, , 899 #### [facility] [address], [address] [place] [address] Gaming Cage Worker: Herb Andujar MD #### [id number] #### [facility] [id number] [facility] [place] [employer] Cage Worker: Vineet Ji M.D.,PhD ALP [Catalytic activity/Vol] 113 U/L Normal 37-153 [facility] Comment on above: Performed By: #### 1 230, 1758 #### [facility] [address] [place] [id number] [employer] Cage Worker: Monique Cano #### 760, , 899 #### [facility] [address] , [address] [place] [address] Gaming Cage Worker: Herb Andujar MD #### [id number] #### [facility] [id number] [facility] [place] [employer]age Worker: Vineet Ji M.D.,PhD ALT [Catalytic activity/Vol] 20 U/L Normal 6-29 [facility] Comment on above: Performed By: #### 1 230, 1758 #### [facility] [address] [place] [address] Gaming Cage Worker: Monique Cano #### [id number], , 899 #### [facility] [address], [address] [place] [address] Gaming Cage Worker: Herb Andujar MD #### [id number] #### [facility]/[address] [place], [place] Gaming Cage Worker: Vineet Ji M.D.,PhD AST [Catalytic activity/Vol] 15 U/L Normal 10-35 [facility] Comment on above: Performed By: #### 1 230, 1758 #### [facility] [address] [place] [address] Gaming Cage Worker: Monique Cano #### 760, , 89 #### [facility] [address], [address] [place] [address] Gaming Cage Worker: Herb Andujar MD #### [id number] #### [facility]/[address] [place] [employer]age Worker: Vineet Ji M.D.,PhD Bilirubin [Mass/Vol] 0.4 mg/dL Normal 0.2-1.2 [facility] Comment on above: Performed By: #### 1 230, 1758 #### [facility] [address] [place] [address] Gaming Cage Worker: Monique Cano #### 760, , 89 #### [facility] [address], [address] [place] [address] Gaming Cage Worker: Herb Andujar MD #### [id number] #### [facility]/[address] [place] [employer]age Worker: Vineet Ji M.D.,PhD BUN/CREATININE RATIO SEE NOTE: Normal 6-22 [facility] Comment on above: Result Comment: Not Reported: BUN and Creatinine are within reference range. Performed By: #### 1 230, 1758 #### [facility] [address] [place] [address] Gaming Cage Worker: Monique Cano #### 760, , 899 #### [facility] [address], [address] [place] [address] Gaming Cage Worker: Herb Andujar MD #### [id number] #### [facility]/[place] [id number] [facility] [place] [employer] Cage Worker: Vineet Ji M.D.,PhD Calcium [Mass/Vol] 10.0 mg/dL Normal 8.6-10.4 [facility] Comment on above: Performed By: #### 1 230, 1758 #### [facility] [address] [place], [place] [address] Gaming Cage Worker: Monique Cano #### 7600, , 89 #### [facility] [address], [address] [place] [address] Gaming Cage Worker: Herb Andujar MD #### [id number] #### [facility]/[place] [id number] [facility] [place] [employer] Cage Worker: Vineet Ji M.D.,PhD Chloride [Moles/Vol] 105 mmol/L Normal 98-110 [facility] Comment on above: Performed By: #### 1 230, 1758 #### [facility] [address] [place], [place] [id number] Gaming Cage Worker: Monique Cano #### 760, , 89 #### [facility] [place] [address] [address] , [address] [place] [address] Gaming Cage Worker: Herb Andujar MD ### #### [facility]/[address] [place] [employer] Cage Worker: Vineet Ji M.D.,PhD CO2 [Moles/Vol] 27 mmol/L Normal 20-32 [facility] Comment on above: Performed By: #### 1 230, 1758 #### [facility] [address] [place] [address] Gaming Cage Worker: Monique Cano #### 7600, 367, 899 #### [facility] [place] [address] [facility], [address] [place] [address] Gaming Cage Worker: Herb Andujar MD #### #### [facility]/[place] [id number] [facility] [place] [employer] Cage Worker: Vineet Ji M.D.,PhD Creatinine [Mass/Vol] 0.76 mg/dL Normal 0.50-1.03 [facility] Comment on above: Performed By: #### 1 230, 1758 #### [facility] [address] [place] [address] Gaming Cage Worker: Monique Cano #### 7600, 367, 899 #### [facility] [address], [address] [place], [place] [address] Gaming Cage Worker: Herb Andujar MD #### #### [facility]/[address] [place] [employer]age Worker: Vineet Ji M.D.,PhD GFR/1.73 sq M.predicted among non-blacks MDRD (S/P/Bld) [Vol rate/Area] 94 mL/min/{1.73_m2} Normal > OR = 60 [facility] Comment on above: Performed By: #### 1 230, 1758 #### [facility] [address] [place], [place] [id number] Gaming Cage Worker: Monique Cano #### 7599, , 899 #### [facility] [address], [address] [place], [place] [phone] Gaming Cage Worker: Herb Andujar MD #### #### [facility]/[place] [id number] [facility] [place] [employer] Cage Worker: Vineet Ji M.D.,PhD Globulin (S) [Mass/Vol] 2.6 g/dL Normal 1.9-3.7 [facility] Comment on above: Performed By: #### 1 230, 1758 #### [facility] [address] [place] [address] Gaming Cage Worker: Monique Cano #### 7599, , 89 #### [facility] [address], [address] [place], [place] [address] Gaming Cage Worker: Herb Andujar MD #### #### [facility] [place] [employer] Cage Worker: Vineet Ji M.D.,PhD Glucose [Mass/Vol] 124 mg/dL Normal 65-139 [facility] Comment on above: Result Comment: Non-fasting reference interval For someone without known diabetes, a glucose value between 100 and 125 mg/dL is consistent with prediabetes and should be confirmed with a follow-up test. Performed By: #### 1 230, 1758 #### [facility] [address] [place] [address] Gaming Cage Worker: Monique Cano #### 7599, , 899 #### [facility] [address], [address] [place], [place] [address] Gaming Cage Worker: Herb Andujar MD #### #### [facility]/[place] [id number] [facility] [place] [employer] Cage Worker: Vineet Ji M.D.,PhD Potassium [Moles/Vol] 4.4 mmol/L Normal 3.5-5.3 [facility] Comment on above: Performed By: #### 1 230, 175 #### [facility] [address] [place] [address] Gaming Cage Worker: Monique Cano #### 760, , 899 #### [facility] [place] [address], [address] [place] [address] Gaming Cage Worker: Herb Andujar MD #### [id number] #### [facility]/[place] [id number] [facility] [place] [employer] Cage Worker: Vineet Ji M.D.,PhD Protein [Mass/Vol] 6.8 g/dL Normal 6.1-8.1 [facility] Comment on above: Performed By: #### 1 230, 1758 #### [facility] [address] [place] [address] Gaming Cage Worker: Monique Cano #### 7599, , 899 #### [facility] [address], [address] [place] [address] Gaming Cage Worker: Herb Andujar MD #### [id number] #### [facility]/[place] [id number] [facility] [place] [employer] Cage Worker: Vineet Ji M.D.,PhD Sodium [Moles/Vol] 140 mmol/L Normal 135-146 [facility] Comment on above: Performed By: #### 1 230, 1758 #### [facility] [address] [place] [address] Gaming Cage Worker: Monique Cano #### 7599, , 899 #### [facility] [address] , [address] [place] [address] Gaming Cage Worker: Herb Andujar MD #### #### [facility]/[place] [id number] [facility] [address] [place] [employer] Cage Worker: Vineet Ji M.D.,PhD Urea nitrogen [Mass/Vol] 10 mg/dL Normal 7-25 [facility] Comment on above: Performed By: #### 1 023, 1759 #### [facility] [address] [place] [phone] Gaming Cage Worker: Monique Cano #### 7600, 367, 899 #### [facility] [address], [address] [place], [place] [address] Gaming Cage Worker: Herb Andujar MD #### #### [facility] [place] [employer] Cage Worker: Vineet Ji M.D.,PhD CORTISOL, TOTAL 05-13-2025 CORTISOL, TOTAL 1.9 mcg/dL Low [facility] Comment on above: Result Comment: The Cortisol result may be decreased on average 10-20% relative to results previously obtained with this method due to a recent quality improvement made in March 2025 by the reagent stock clerk. Reference Range: For 8 a.m.(7-9 a.m.) Specimen: 4.0-22.0 Reference Range: For 4 p.m.(3-5 p.m.) Specimen: 3.0-17.0 * Please interpret above results accordingly * Performed By: #### 1 230, 1759 #### [facility] [address] [place] [phone] Gaming Cage Worker: Monique Cano #### 7600, 367, 899 #### [facility] [address], [address] [place] [address] Gaming Cage Worker: Herb Andujar MD #### #### [facility]/[place] [facility] [place] [employer] Cage Worker: Vineet Ji M.D.,PhD LIPID PANEL, STANDARD 04-30 Cholesterol [Mass/Vol] 209 mg/dL High <200 [facility] Comment on above: Order Comment: FASTI NG:NO FASTING: NO Performed By: #### 1 023, 175 #### [facility] [place] [address] Gaming Cage Worker: Monique Cano #### 7599, 367, 899 #### [facility] [address] [place] [address], [address] [place] [address] Gaming Cage Worker: Herb Andujar MD #### #### [facility] [place] [id number] [facility] [place] [employer] Cage Worker: Vineet Ji M.D.,PhD Cholesterol in HDL [Mass/Vol] 56 mg/dL Normal > OR = 50 [facility] Comment on above: Order Comment: FASTI NG:NO FASTING: NO Performed By: #### 1 023, 1758 #### [facility] [address] [place] [address] Gaming Cage Worker: Monique Cano #### 760, 367, 899 #### [facility] [address], [address] [place] [address] Gaming Cage Worker: Herb Andujar MD ### #### [facility] [address] [place] Cage Worker: Vineet Ji M.D.,PhD Cholesterol in LDL [Mass/Vol] 126 mg/dL High [facility] Comment on above: Order Comment: FASTI NG:NO FASTING: NO Result Comment: Refe rence range: <100 Desirable range <100 mg/dL for primary prevention; <70 mg/dL for patients with CHD or diabetic patients with > or = 2 CHD risk factors. LDL-C is now calculated using the Luis A calculation, which is a validated novel method providing better accuracy than the Friedewald equation in the estimation of LDL-C. Wali FANG et al. [place]. 2013;310(19): 8790-5380 (http://education.Aldagen.CineCoup/faq/WFU032) Performed By: #### 1 023, 1758 #### [facility] [address] [place] [address] Gaming Cage Worker: Monique Cano #### 7599, , 89 #### [facility] [address], [address] [place] [address] Gaming Cage Worker: Herb Andujar MD #### #### [facility]/[place] [id number] [facility] [place] Cage Worker: Vineet Ji M.D.,PhD Cholesterol.total/Chol esterol in HDL [Mass ratio] 3.7 {ratio} Normal <5.0 [facility] Comment on above: Order Comment: FASTI NG:NO FASTING: NO Performed By: #### 1 230, 1758 #### [place] [address] Gaming Cage Worker: Monique Cano #### 7599, , #### [facility] [address], [address] [place], [place] [id number] Gaming Cage Worker: Herb Andujar MD #### [id number] #### [facility]/[place] [id number] [facility] [place] Cage Worker: Vineet Ji M.D.,PhD NON HDL CHOLESTEROL 153 mg/dL (calc) High <130 [facility] Comment on above: Order Comment: FASTI NG:NO FASTING: NO Result Comment: For patients with diabetes plus 1 major ASCVD risk factor, treating to a non-HDL-C goal of <100 mg/dL (LDL-C of <70 mg/dL) is considered a therapeutic option. Performed By: #### 1 230, 1758 #### [facility] [address] [place] [address] Gaming Cage Worker: Monique Cano #### 7599, , 89 #### [facility] [address], [address] [place] [address] Gaming Cage Worker: Herb Andujar MD #### 56917 #### [facility]/[place] [id number] [facility] [place] Cage Worker: Vineet Ji M.D.,PhD Triglyceride [Mass/Vol] 152 mg/dL High <150 [facility] Comment on above: Order Comment: FASTI NG:NO FASTING: NO Performed By: #### 1 230, 1758 #### [facility] [address] [place], [place] [address] Gaming Cage Worker: Monique Cano #### 760, , 899 #### [facility] [address], [address] [place] [address] Gaming Cage Worker: Herb Andujar MD #### [id number] #### [facility]/[place] [id number] [facility] [place] [employer] Cage Worker: Vineet Ji M.D.,PhD RHEUMATOID ARTHRITIS DIAGNOS TIC PANEL 3 05-13-2025 CYCLIC CITRULLINATED PEPTIDE (CCP) AB (IGG) <16 Normal <20 [facility] Comment on above: Result Comment: Negative: <20 Weak Positive: 20 - 39 Moderate Positive: 40 - 59 Strong Positive: >59 Performed By: #### 1 230, 1758 #### [facility] [address] [place] [address] Gaming Cage Worker: Monique Cano #### 7599, 367, 899 #### [facility] [address], [address] [place] [address] Gaming Cage Worker: Herb Andujar MD #### #### [facility] [id number] [facility] [place] Cage Worker: Vineet Ji M.D.,PhD RHEUMATOID FACTOR (IGA) <5 Normal <=6 [facility] Comment on above: Performed By: #### 230, 1758 #### [facility] [address] [place] [address] Gaming Cage Worker: Monique Cano #### 7599, 367, 89 #### [facility] [address], [address] [place] [address] Gaming Cage Worker: Herb Andujar MD ### #### [facility]/[address] [place] [employer]age Worker: Vineet Ji M.D.,PhD RHEUMATOID FACTOR (IGG) <5 Normal <=6 [facility] Comment on above: Performed By: #### 1 230, 1758 #### [facility] [address] Gaming Cage Worker: Monique Cano #### 7599, , 89 #### [facility] [address], [address] [place] [address] Gaming Cage Worker: Herb Andujar MD ### #### [facility]/[address] [place] [employer]age Worker: Vineet Ji M.D.,PhD RHEUMATOID FACTOR (IGM) 10 U High <=6 [facility] Comment on above: Performed By: #### 1 230, 1758 #### [place] [address] Gaming Cage Worker: Monique Cano #### 7599, , 89 #### [facility] [address], [address] [place] [address] Gaming Cage Worker: Herb Andujar MD #### #### [facility]/[place] [id number] [facility] [place] Cage Worker: Vineet Ji M.D.,PhD SJOGREN'S ANTIBODY (SS-A) <1.0 Normal [facility] Comment on above: Result Comment: Reference Range: < 1.0 NEG AI Performed By: #### 1 230, 1758 #### [place] [address] Gaming Cage Worker: Monique Cano #### 7599, , 89 #### [facility] [address], [address] [place] [address] Gaming Cage Worker: Herb Andujar MD #### #### [facility]/[place] [id number] [facility] [place] Cage Worker: Vineet Ji M.D.,PhD SJOGREN'S ANTIBODY (SS-B) <1.0 Normal [facility] Comment on above: Result Comment: Reference Range: < 1.0 NEG AI Performed By: #### 1 230, 1758 #### [place] [address] Gaming Cage Worker: Monique Cano #### 7599, , 89 #### [facility] [address], [address] [place] [address] Gaming Cage Worker: Herb Andujar MD #### #### [facility] [id number] [facility] [place] Cage Worker: Vineet Ji M.D.,PhD TSH 05-13-2025 TSH Qn 0.64 m[IU]/L Normal [facility] Comment on above: Result Comment: Refe rence Range > or = 20 Years 0.40-4.50 Ranges First trimester 0.26-2.66 Second trimester 0.55-2.73 Third trimester 0.43-2.91 Performed By: #### 1 230, 1758 #### [facility]-[address] Gaming Cage Worker: Monique Cano #### 7599, , 89 #### [facility] [address], [address] [place] [address] Gaming Cage Worker: Herb Andujar MD #### #### [facility]/[place] [id number] [facility] [place] [address] Gaming Cage Worker: Vineet Ji M.D.,PhD HbA1c (Bld) [Mass fraction]o n 05-08-2025 Interpretation and review of laboratory results Normal [facility] - Hematology and Cell countson 05-08-2025 HbA1c (Bld) [Mass fraction] 5.2 % [facility] 04-06-2025 ALT [Catalytic activity/Vol] 21 U/L Normal 6-29 [facility] Comment on above: Performed By: #### 8 22, 823 #### [facility] [address], [address] Gaming Cage Worker: Herb Andujar MD Sarah 04-06-2025 AST [Catalytic activity/Vol] 18 U/L Normal 10-35 [facility] Comment on above: Performed By: #### 8 22, 823 #### [facility] [address], [address] [place] [address] Gaming Cage Worker: Herb Andujar MD CT Abdomen/Pelvis w/o Contra ston 01-17-2025 CT Abdomen/Pelvis w/o Contrast Exam Date/Time: [...] Kang MD Transcribed by: GREGG Technologist: ARACELI Lopez [facility] Ambulatory Visit Summaryon 0 11-14-2024 Ambulatory Visit [...] YESENIA YUSUF MD Where: [facility] [address], [address] [place] [address]- You Need to Schedule the Following Appointments Follow Up with TREVOR RAMIREZ, DEAN PATTERSON When: Where: You Need to Complete the Following CT Abdomen/Pelvis w/o Contrast, 11/14/24, Routine, Order for future visit, Transport Mode: Ambulatory, Reason: Other (please specify), Reason: Ureteral stone, No, No, Ureteral stone with hydronephrosis, Stone protocol, pp_set_radiology_subspeci alty, Not Required, [facility] Medications What How Much When [...] thank yo (more content not included)... Normal [facility] Urology Office/Clinic Noteon 11-14-2024 Urology Office/Clinic Note Urology Office/Clinic Note Chief Complaint follow up [facility] Staff 54 year old female here for follow up to Cystoscopy, right ureteroscopy, right ureteral stent placement 10/19/24 GERRY and KUB done 11/02/24 at [facility] [place] Previous Dx: Ureteral stone with hydronephrosis Patient [...] kidney stone and JOSE. Denies hx of NM or CVA. Not on anticoagulation. BBSQ 13 (7) Portions of this record may have been created with voice recognition artificial intelligence software, specifically [employer], Job[employer] and or TV[employer]. Substitutions may have occurred due to the inherent limitations of voice recognition and artificial intelligence software. 1. Ureteral stone with hydronephrosis (N13.2: Hydronephrosis with renal and ureteral calculous obstruction) Pt presented to [facility] ER 09/23/24 due to R sided flank [...] stent at home without difficulty. KUB 11/02/24 [facility] [place] - An approximately 4 x 2 mm calculus overlying the left side of the distal sacrum may be within the distal left ureter or urinary bladder. Renal US 11/02/24 [facility] [place] - The study is mild to moderately limited by the patient's body habitus. Neg for stones or hydro. Discussed KUB findings with pt. Asymptomatic. Denies passage of stone since having imaging done. Discussed ordering CT AP wo con to better evaluate stone noted on KUB. Pt agrees with plan. -CT AP wo con (stone protocol) now at [facility] -F/up in [address] results [...] Additional Instructions: 2 months (CT now at [facility]) Patient Education Dietary Guidelines to Help Prevent [...] 1 tab (more content not included)... Normal [facility] Comment on above: Result Comment: Elec tronically [...] Transcribed by: GREGG Technologist: JESUS ALBERTO Lopez [facility] XR Abdomen 1 Viewon 11-04-19 XR Abdomen [...] Jeffry Chapman MD Transcribed by: GREGG Technologist: Jessica MCCRACKEN [facility] CBC w/ Auto Diffon 5 Basophils/100 WBC (Bld) 0.5 % Normal 0.0-2.0 [facility] Comment on above: Performed By: #### 2 [id number] #### [facility] [address] [place] [address] Basophils/Leukocytes Auto (Bld) [Pure # fraction] 0.0 E9/L Normal 0.0-0.2 [facility] Comment on above: Performed By: #### 2 [id number] #### [facility] [address] [place] [address] Eosinophils (Bld) [#/Vol] 0.2 E9/L Normal 0.0-0.5 [facility] Comment on above: Performed By: #### 2 [id number] #### [facility] [address] [place] [address] Eosinophils/100 WBC (Bld) 2.5 % Normal 0.0-8.0 [facility] Comment on above: Performed By: #### 2 [id number] #### [facility] [address] [place] [address] Erythrocyte distribution width (RBC) [Ratio] 14.0 % Normal 10.9-14.2 [facility] Comment on above: Performed By: #### 2 [id number] #### [facility] [address] [place] [address] Hematocrit (Bld) [Volume fraction] 44.6 % Normal 34.0-46.0 [facility] Comment on above: Performed By: #### 2 [id number] #### [facility] [address] [place] [address] Hemoglobin (Bld) [Mass/Vol] 15.4 g/dL Normal 12.0-16.0 [facility] Comment on above: Performed By: #### 2 [id number] #### [facility] [address] [place] [address] Lymphocytes (Bld) [#/Vol] 2.4 E9/L Normal 1.0-4.0 [facility] Comment on above: Performed By: #### 2 [id number] #### [facility] [address] [place] [address] Lymphocytes/100 WBC (Bld) 23.5 % Normal 14.0-50.0 [facility] Comment on above: Performed By: #### 2 216202 #### [facility] [address] [place] [address] MCH (RBC) [Entitic mass] 32.3 pg Normal 27.0-34.0 [facility] Comment on above: Performed By: #### 2 465384 #### [facility] [address] [place] [address] MCHC (RBC) [Mass/Vol] 34.5 g/dL Normal 31.4-36.0 [facility] Comment on above: Performed By: #### 2 [id number] #### [facility] [address] [place] [address] MCV (RBC) [Entitic vol] 93.6 fL Normal 80.0-100.0 [facility] Comment on above: Performed By: #### 2 591908 #### [facility] [address] [place] [address] Monocytes (Bld) [#/Vol] 0.9 E9/L Normal 0.2-1.0 [facility] Comment on above: Performed By: #### 2 [id number] #### [facility] [address] [place] [address] Neutrophils (Bld) [#/Vol] 6.6 E9/L Normal 2.0-7.5 [facility] Comment on above: Performed By: #### 2 [id number] #### [facility] [address] [place] [address] Neutrophils/100 WBC (Bld) 64.6 % Normal 36.0-75.0 [facility] Comment on above: Performed By: #### 2 754115 #### [facility] [address] [place] [address] Platelet mean volume (Bld) [Entitic vol] 7.5 fL Normal 6.4-10.8 [facility] Comment on above: Performed By: #### 2 860610 #### [facility] [address] [place] [address] Platelets (Bld) [#/Vol] 383.0 E9/L Normal 150.0-500. 0 [facility] Comment on above: Performed By: #### 2 384265 #### [facility] [address] [place] [address] RBC (Bld) [#/Vol] 4.8 E12/L Normal 4.3-5.9 [facility] Comment on above: Performed By: #### 2 [id number] #### [facility] Laboratory [address] [place] [address] WBC corrected for nucl RBC Auto (Bld) [#/Vol] 10.2 E9/L Normal 4.0-11.0 [facility] Comment on above: Performed By: #### 2 [id number] #### [facility] [address] [place] [address] CMPon 11-02-2024 Albumin [Mass/Vol] 4.3 g/dL Normal 3.3-5.0 [facility] Comment on above: Performed By: #### 2 [id number] #### [facility] [address] [place] [address] Albumin/Globulin (S) [Mass conc ratio] 1.5 Normal 1.1-2.2 [facility] Comment on above: Performed By: #### 2 [id number] #### [facility] [address] [place] [address] ALP [Catalytic activity/Vol] 111 Int._Unit/L High 21-98 [facility] Comment on above: Performed By: #### 2 [id number] #### [facility] [address] [place] [address] ALT No additional P-5'-P [Catalytic activity/Vol] 18 Int._Unit/L Normal 6-46 [facility] Comment on above: Performed By: #### 2 101794 #### [facility] [address] [place] [address] Anion gap [Moles/Vol] 13 mmol/L Normal 6-16 [facility] Comment on above: Performed By: #### 2 [id number] #### [facility] [address] [place] [address] AST [Catalytic activity/Vol] 16 Int._Unit/L Normal 5-43 [facility] Comment on above: Performed By: #### 2 [id number] #### [facility] [address] [place] [address] Bilirubin [Mass/Vol] 0.8 mg/dL Normal 0.0-1.1 [facility] Comment on above: Performed By: #### 2 484694 #### [facility] [address] [place] [address] Calcium [Mass/Vol] 9.4 mg/dL Normal 8.9-11.1 [facility] Comment on above: Performed By: #### 2 815663 #### [facility] [address] [place] [address] Chloride [Moles/Vol] 105 mmol/L Normal 101-111 [facility] Comment on above: Performed By: #### 2 [id number] #### [facility] [address] [place] [address] CO2 [Moles/Vol] 26 mmol/L Normal 21-31 [facility] Comment on above: Performed By: #### 2 [id number] #### [facility] [address] [place] [address] Creatinine [Mass/Vol] 1.1 mg/dL Normal 0.5-1.3 [facility] Comment on above: Performed By: #### 2 626808 #### [facility] [address] [place] [address] Globulin (S) [Mass/Vol] 2.8 g/dL Normal 1.4-4.0 [facility] Comment on above: Performed By: #### 2 859157 #### [facility] [address] [place] [address] Glucose [Mass/Vol] 100 mg/dL Normal 55-199 [facility] Comment on above: Performed By: #### 2 440283 #### [facility] [address] [place] [address] Potassium [Moles/Vol] 4.5 mmol/L Normal 3.5-5.3 [facility] Comment on above: Performed By: #### 2 [id number] #### [facility] [address] [place] [address] Protein [Mass/Vol] 7.1 g/dL Normal 6.0-7.8 [facility] Comment on above: Performed By: #### 2 626008 #### [facility] [address] [place] [address] Sodium [Moles/Vol] 139 mmol/L Normal 135-145 [facility] Comment on above: Performed By: #### 2 801889 #### [facility] [address] [place] [address] Urea nitrogen [Mass/Vol] 16 mg/dL Normal 5-21 [facility] Comment on above: Performed By: #### 2 [id number] #### [facility] [address] [place] [address] Urea nitrogen/Creatinine [Mass ratio] 14 No Units Normal 10-20 [facility] Comment on above: Performed By: #### 2 [id number] #### [facility] [address] [place] [address] [id number] 11-02-2024 HbA1c (Bld) [Mass fraction] 5.5 % Normal <=5.9 [facility] Comment on above: Performed By: #### 7 [id number] #### [facility] [address] [place] [address] Lipid Panelon 11-02-2024 Cholesterol [Mass/Vol] 160 mg/dL Normal 120-200 [facility] Comment on above: Performed By: #### 2 610872 #### [facility] [address] [place] [address] Cholesterol in HDL [Mass/Vol] 36 mg/dL Invalid Interpretation Code [facility] Comment on above: Result Comment: '>= 60 LOW RISK' '<= 40 HIGH RISK' Performed By: #### 2 717448 #### [facility] [address] [place] [address] Cholesterol in LDL [Mass/Vol] 115 mg/dL Normal <=129 [facility] Comment on above: Performed By: #### 2 583677 #### [facility] [address] [place] [address] Cholesterol in VLDL [Mass/Vol] 27 mg/dL Normal 7-40 [facility] Comment on above: Performed By: #### 2 429883 #### [facility] [address] [place] [address] Triglyceride [Mass/Vol] 134 mg/dL Normal <=149 [facility] Comment on above: Performed By: #### 2 497990 #### [facility] [address] [place] [address] Magnesiumon 11-02-2024 Magnesium [Mass/Vol] 2.0 mg/dL Normal 1.3-2.4 [facility] Comment on above: Performed By: #### 2 082062 #### [facility] [address] [place] [address] Vit B12on 11-02-2024 Cobalamin (Vitamin B12) [Mass/Vol] 684 pg/mL Normal 50-1500 [facility] Comment on above: Performed By: #### 2 [id number] #### [facility] [address] [place] [address] eGFRon 11-02-2024 eGFR 60 mL/min/1.73 m2 Normal >=59 [facility] Comment on above: Performed By: #### 1 [id number] #### [facility] [address] [place] [address] Main OR Intraoperative Recor don 10-23-2024 Main OR Intraoperative Record Main OR Intraoperative Record IntraOp Document Type FT Summary Primary Physician: YESENIA YUSUF MD Finalized Date/Time: 10/23/24 12:38:57 Pt. Name: JOSELITO VIDAL Opal/Sex: 1970 Female Med Rec #: [id number] Physician: YESENIA YUSUF MD Financial #: [id number] Pt. Type: A Room/Bed: [place] [address] Admit/Disch: 10/19/24 08:59:52 - 10/19/24 14:50:00 Institution: [...] Perez CRNA, MD, Regina Walker Role Performed PROFESSOR OF FLORICULTURE Surgeon - Primary Director Risk - Primary Time In 10/19/24 12:22:00 10/19/24 12:22:00 10/19/24 12:22:00 Time Out 10/19/24 12:44:00 10/19/24 12:44:00 10/19/24 12:44:00 Procedure CYSTOSCOPY W/ HOMIUM CYSTOSCOPY W/ HOMIUM CYSTOSCOPY W/ HOMIUM LASER(Right), LASER(Right), LASER(Right), CYSTOSCOPY RETROGRADE CYSTOSCOPY RETROGRADE CYSTOSCOPY RETROGRADE STENT INSERTION(Right) STENT INSERTION(Right) STENT INSERTION(Right) Comments IS SUPERVISING Last Modified By: Regina Walker Kelsie E Burgderfer, Kelsie E 10/19/24 12:56:16 10/19/24 12:56:16 10/19/24 12:56:16 Entry 4 Entry 5 Case Attendee Ta Ibrahim CST RT(R)Kassandra Role Performed Scrub - Primary Cdl Flatbed Truck Driver Time In 10/19/24 12:22:00 10/19/24 12:25:00 Time Out 10/19/24 12:44:00 10/19/24 12:44:00 Procedure CYSTOSCOPY W/ HOMIUM CYSTOSCOPY W/ HOMIUM LASER(Right), LASER(Right), CYSTOSCOPY RETROGRADE CYSTOSCOPY RETROGRADE STENT INSERTION(Right) STENT INSERTION(Right) Comments Last Modified By: Regina Walker Kelsie E 10/19/24 12:56:16 10/19/24 12:56:16 General Comments: MARY FULTON, KENNEDY SALAZAR AND HEALTH AND WELLNESS COACH, IN ATTENDANCE.JOSE LAMBERT . Perioperative Protocols FT [...] Participants TREVOR RAMIREZ, Aaron PATTERSON Kelsie E, Ta Ibrahim CST, Ware RT(R), Kassandra Luis Time Out Complete 10/19/24 12:30:00 Outcomes Met? [...] Primary Surgeon TREVOR RAMIREZ, TREVOR RAMIREZ, YESENIA PATTERSON Start 10/19/24 12:31:00 10/19/24 12:31:00 Stop 10/19/24 [...] to preve (more content not included)... Normal [facility] CHEMISTRYOrdered By: Lab ROP User on 10-19-2024 Glucose [Mass/Vol] 101 mg/dL High 55 - 99 mg/dL [facility] POC Subsection Comment on above: Result Comment: Yana RIVERA POC Username BEBO GOODRICH Invalid Interpretation Code [facility] POC Subsection Sodium [Moles/Vol] [id number] mmol/L Invalid Interpretation Code [facility] POC Subsection Sodium [Moles/Vol] [id number] mmol/L Invalid Interpretation Code [facility] POC Subsection Capillary Glucose POCon 10-01 Glucose [Mass/Vol] 101 mg/dL High 55-99 [facility] Comment on above: Result Comment: Yana RIVERA Performed By: #### 2 [id number] ####[facility] [id number] [facility] [place] [address] Discharge Instructionson Discharge Instructions Discharge Instruc tions [...] WKS WITH GERRY AGUIAR Where: [address] [place] [phone] Business (1) Medications What How Much When Instructions Next Dose New hyoscyamine (Levsin 0.125 mg SL Tab) 1 Tablets By Mouth 4 times a day as needed for for spasm Pickup at [facility] New oxycodone (Roxicodone 5 mg Tab) 1 Tablets By Mouth Every 6 hours as needed for for pain Pickup at [facility] New tamsulosin (Flomax 0.4 mg Cap) 1 Capsules By Mouth Every day Pickup at [facility] Unchanged APAP/ butalbital/ caffeine (Esgic 325 [...] Tablets By Mouth Every day Pharmacy Information [facility]: [address] [place], [place] [id number] [phone] Devices Implanted/Removed This Visit Notice: You have devices implanted this visit that may not be MRI compatible. Implanted CYSTOSCOPY W/ HOMIUM LASER Ureter R BENAVIDES URETERAL STENT CASCADE 6FR 10/19/2024 [facility] [place], [place] Dr. Bradford Hagen Post-operative Instructions for [...] not to (more content not included)... Normal [facility] Comment on above: Result Comment: Elec tronically Signed By: Mily Singh\.br\Date and Time Signed: 10/19/24 13:38 EST Inpatient Patient Summaryon 10-19-2024 Inpatient Patient Summary Inpatient Patient Summary [address] [address] [facility] Clinical Discharge Instructions PERSON INFORMATION Name: JOSELITO VIDAL PHYSICIANS Admitting Physician: YESENIA YUSUF MD Attending Physician: YESENIA YUSUF MD PCP: ELLIE INGRAM CNP Discharge Diagnosis: Comment: PATIENT EDUCATION INFORMATION Instructions: Medication Leaflets: Follow up: With: Address: When: YESENIA YUSUF [address] [place] [phone] Business (1) Comments: 6 WKS WITH GERRY AGUIAR PRIOR Type Location Start [facility] 10/19/2024 1:00 PM 10/19/2024 1:30 PM Confirmed Pain Management - New () .Pain [facility] 10/23/2024 10:15 AM 10/23/2024 10:45 AM Confirmed MEDICATION LIST New Medications [facility], [address] [place], [place] [id number], [phone] hyoscyamine (Levsin 0.125 mg SL Tab) 1 [...] Tablets By Mouth every day. Comment: Normal [facility] Main OR PACU I Recordon 10-01 Main OR PACU I Record Main OR PACU I Rec ord PACU Phase I Document Type FT Summary Primary Physician: YESENIA YUSUF MD Finalized Date/Time: 10/19/24 13:30:11 Pt. Name: JOSELITO VIDAL/Sex: 1970 Female Med Rec #: [id number] Physician: YESENIA YUSUF MD Financial #: [id number] Pt. Type: A Room/Bed: [place] [address] Admit/Disch: 10/19/24 08:59:52 - Institution: Case Times [...] 13:30 Suki Mcbride RN 10/19/24 13:30 Normal [facility] Main OR PACU II Recordon Main OR PACU II Record Main OR PACU II R ecord PACU Phase II Document Type FT Summary Primary Physician: YESENIA YUSUF MD Finalized Date/Time: 10/19/24 14:59:43 Pt. Name: JOSELITO VIDAL/Sex: 1970 Female Med Rec #: [id number] Physician: YESENIA YUSUF MD Financial #: [id number] Pt. Type: A Room/Bed: [place] [address] Admit/Disch: 10/19/24 08:59:52 - Institution: Case Times [...] Signed By: Mily Singh 10/19/24 14:59 Normal [facility] Operative Reporton Operative Report Operative Report Patient: [...] in the room agreed. A well-lubricated 22 Mauritian scopic sheath with 30 lens was sent [...] renal ultrasound prior to office appointment. Normal [facility] Comment on above: Result Comment: Elec tronically Signed By: TREVOR RAMIREZ, YESENIA\.br\Date and Time Signed: 10/19/24 13:47 EST Outpatient Surgery Discharge Instructionon 10-19-2024 Outpatient Surgery Discharge Instruction Outpatient Surgery Discharge Instruction [place] [id number] Patient Discharge Instructions PERSON INFORMATION Name: JOSELITO [...] Take tylenol, motrin for pain 6 wks jair IF UNABLE TO CONTACT YOUR PHYSICIAN AND [...] Date Follow up: With: Address: [facility] [address] [place] [phone] Business (1) Comments: 6 WKS WITH GERRY AGUIAR Type Location Start [facility] 10/19/2024 1:00 PM 10/19/2024 1:30 PM Confirmed Pain Management - [facility] Jean-Claude 10/23/2024 10:15 AM 10/23/2024 10:45 [...] to serve you. Thank you for choosing [facility] HERE ARE THE MEDICATION CHANGES THAT OCCURRED DURING YOUR HOSPITAL STAY New Medications [facility], [address] [place] [id number], [phone] hyoscyamine (Levsin 0.125 mg SL Tab) 1 [...] day. PATIENT EDUCATION INFORMATION Instructions: Medication Leaflets: Normal [facility] Patient Education - Texton 0 10-19-2024 Patient Education - Text Patient Education - Text Normal [facility] XR Chest 2 Viewson XR Chest 2 [...] REPORT Dictated: 10/13/2024 9:32 am Otto Meza MD Signed (Electronic Signature): 10/13/2024 9:32 am Signed by: Otto Meza MD Transcribed by: GREGG Technologist: ADAM Normal [facility] BMPon 10-12-2024 Anion gap [Moles/Vol] 10 mmol/L Normal 6-16 [facility] Comment on above: Performed By: #### 2 [id number] #### [facility] Laboratory [address] [place] [address] Calcium [Mass/Vol] 8.6 mg/dL Low 8.9-11.1 [facility] Comment on above: Performed By: #### 2 815806 #### [facility] Laboratory [address] [place] [address] Chloride [Moles/Vol] 107 mmol/L Normal 101-111 [facility] Comment on above: Performed By: #### 2 [id number] #### [facility] Laboratory [address] [place] [address] CO2 [Moles/Vol] 27 mmol/L Normal 21-31 [facility] Comment on above: Performed By: #### 2 [id number] #### [facility] Laboratory [address] [place] [address] Creatinine [Mass/Vol] 0.9 mg/dL Normal 0.5-1.3 [facility] Comment on above: Performed By: #### 2 570120 #### [facility] Laboratory [address] [place] [address] Glucose [Mass/Vol] 73 mg/dL Normal 55-199 [facility] Comment on above: Performed By: #### 2 489605 #### [facility] Laboratory [address] [place] [address] Potassium [Moles/Vol] 4.3 mmol/L Normal 3.5-5.3 [facility] Comment on above: Performed By: #### 2 573660 #### [facility] [address] [place] [address] Sodium [Moles/Vol] 140 mmol/L Normal 135-145 [facility] Comment on above: Performed By: #### 2 797681 #### [facility] [address] [place] [address] Urea nitrogen [Mass/Vol] 10 mg/dL Normal 5-21 [facility] Comment on above: Performed By: #### 2 127348 #### [facility] [address] [place] [address] Urea nitrogen/Creatinine [Mass ratio] 11 No Units Normal 10-20 [facility] Comment on above: Performed By: #### 2 447862 #### [facility] [address] [place] [address] CBC w/ Auto Diffon 5 Basophils/100 WBC (Bld) 0.6 % Normal 0.0-2.0 [facility] Comment on above: Performed By: #### 2 843187 #### [facility] [address] [place] [address] Basophils/Leukocytes Auto (Bld) [Pure # fraction] 0.0 E9/L Normal 0.0-0.2 [facility] Comment on above: Performed By: #### 2 793081 #### [facility] Laboratory [address] [place] [address] Eosinophils (Bld) [#/Vol] 0.2 E9/L Normal 0.0-0.5 [facility] Comment on above: Performed By: #### 2 788962 #### [facility] Laboratory [address] [place] [address] Eosinophils/100 WBC (Bld) 2.8 % Normal 0.0-8.0 [facility] Comment on above: Performed By: #### 2 208383 #### [facility] [address] [place] [address] Erythrocyte distribution width (RBC) [Ratio] 14.7 % High 10.9-14.2 [facility] Comment on above: Performed By: #### 2 [id number] #### [facility] [address] [place] [address] Hematocrit (Bld) [Volume fraction] 44.4 % Normal 34.0-46.0 [facility] Comment on above: Performed By: #### 2 785324 #### [facility] [address] [place] [address] Hemoglobin (Bld) [Mass/Vol] 14.9 g/dL Normal 12.0-16.0 [facility] Comment on above: Performed By: #### 2 [id number] #### [facility] [address] [place] [address] Lymphocytes (Bld) [#/Vol] 2.2 E9/L Normal 1.0-4.0 [facility] Comment on above: Performed By: #### 2 728387 #### [facility] [address] [place] [address] Lymphocytes/100 WBC (Bld) 29.1 % Normal 14.0-50.0 [facility] Comment on above: Performed By: #### 2 616008 #### [facility] [address] [place] [address] MCH (RBC) [Entitic mass] 31.6 pg Normal 27.0-34.0 [facility] Comment on above: Performed By: #### 2 [id number] #### [facility] [address] [place] [address] MCHC (RBC) [Mass/Vol] 33.5 g/dL Normal 31.4-36.0 [facility] Comment on above: Performed By: #### 2 [id number] #### [facility] Laboratory [address] [place] [address] MCV (RBC) [Entitic vol] 94.3 fL Normal 80.0-100.0 [facility] Comment on above: Performed By: #### 2 [id number] #### [facility] Laboratory [address] [place] [address] Monocytes (Bld) [#/Vol] 0.7 E9/L Normal 0.2-1.0 [facility] Comment on above: Performed By: #### 2 [id number] #### [facility] Laboratory [address] [place] [address] Neutrophils (Bld) [#/Vol] 4.4 E9/L Normal 2.0-7.5 [facility] Comment on above: Performed By: #### 2 772259 #### [facility] [address] [place] [address] Neutrophils/100 WBC (Bld) 58.8 % Normal 36.0-75.0 [facility] Comment on above: Performed By: #### 2 337459 #### [facility] [address] [place] [address] Platelet 359.0 E9/L Normal 150.0-500. 0 [facility] Comment on above: Performed By: #### 2 279329 #### [facility] [address] [place] [address] Platelet mean volume (Bld) [Entitic vol] 7.7 fL Normal 6.4-10.8 [facility] Comment on above: Performed By: #### 2 [id number] #### [facility] [address] [place] [address] RBC (Bld) [#/Vol] 4.7 E12/L Normal 4.3-5.9 [facility] Comment on above: Performed By: #### 2 [id number] #### [facility] Laboratory [address] [place] [address] WBC corrected for nucl RBC Auto (Bld) [#/Vol] 7.5 E9/L Normal 4.0-11.0 [facility] Comment on above: Performed By: #### 2 [id number] #### [facility] [address] [place] [address] CHEMISTRYOrdered By: SYSTEM SYSTEM on 10-12-2024 Anion [...] 33.5 s Normal 25.1 - 36.5 second(s) [facility] Auto Coag Comment on above: Interpretive Data: P arameter 15 days - 4 weeks 1 - 5 months 6 - 11 months 1 - 5 years 6 - 10 years 11 - 17 years PTT Mean: 35.4 (27.6-45.6) Mean: 33.5 (24.8-40.7) Mean: 32.4 (25.1-40.7) Mean: 31.6 (24.0-39.2) Mean: 31.6 (26.9-38.7) Mean: 31.0 (24.6-38.4) Pediatric Reference ranges were obtained from a study by simran Astorga prepared from 1437 samples obtained at 7 different centers using the same coagulation reagent and instrumentation as [facility]. Currently there are no coagulation studies available worldwide for children to 14 days, and no normal ranges. Heparin therapeutic range (represented by Anti-Factor Xa activity of 0.2 - 0.4 U/mL) corresponds to PTT of 56.6 - 109.0 sec. INR Coag (PPP) [Relative time] 1.03 {INR} Invalid Interpretation Code [facility] Auto Coag Comment on above: Interpretive Data: I NR results are specifically intended to assess patients stabilized on long-term Anticoagulation therapy suggested INR s Less Intensive Anticoagulation 2.0 3.0 Conventional Range 3.0 4.5 PT Coag (PPP) [Time] 11.5 s Normal 9.4 - 1 2.5 second(s) [facility] Auto Coag Comment on above: Interpretive Data: [...] were obtained from a study by Kenney Hampton, et al. prepared from 1437 samples obtained at 7 different centers using the same coagulation reagent and instrumentation as [facility]. Currently there are no coagulation studies available [...] Coag (PPP) [Time] 33.5 second(s) Normal 25.1-36.5 [facility] Comment on above: Result Comment: Para meter [...] the same coagulation reagent and instrumentation as [facility]. Currently there are no coagulation studies available worldwide for children to 14 days, and no normal ranges. Heparin therapeutic range (represented by Anti-Factor Xa activity of 0.2 - 0.4 U/mL) corresponds to PTT of 56.6 - 109.0 sec. Performed By: #### 1 [id number] #### [facility] [address] [place] [address] INR Coag (PPP) [Relative time] 1.03 {INR} Invalid Interpretation Code [facility] Comment on above: Result Comment: INR results are specifically intended to assess patients stabilized on long-term Anticoagulation therapy suggested INR???s ???Less Intensive Anticoagulation??? 2.0 ??? 3.0 Conventional Range 3.0 ??? 4.5 Performed By: #### 1 [id number] #### [facility] [address] [place] [address] PT Coag (PPP) [Time] 11.5 second(s) Normal 9.4-12.5 [facility] Comment on above: Result Comment: 15 d [...] the same coagulation reagent and instrumentation as [facility]. Currently there are no coagulation studies available worldwide for children to 14 days, and no normal ranges. Performed By: #### 1 [id number] #### [facility] [address] [place] [address] eGFRon 10-12-2024 eGFR 76 mL/min/1.73 m2 Normal >=59 [facility] Comment on above: Performed By: #### 1 [id number] #### [facility] [address] [place] [address] Ambulatory Visit Summaryon 0 10-09-2024 Ambulatory Visit Summary Ambulatory Visit Summary JOSELITO VIDAL :1970 Visit Date:10/09/2024 Ambulatory Visit Instructions Your Diagnosis Ureteral stone with hydronephrosis Your Care Team Attending Physician - TREVOR RAMIREZ, YESENIA Primary Care Physician - ELLIE INGRAM CNP [...] a hea (more content not included)... Normal [facility] Provider Letteron 10-09-2024 Provider Letter Provider Letter October 09, 2024 JOSELITO VIDAL [address] [place] [address] [place] [address] : 1970 To Whom It May Concern, Please excuse Blank Niño (caregiver for above patient) from work. Date of Illness: From: 10/19/24 To: 10/20/24 May Return to Work On: 10/20/24 Sincerely, Dr Yesenia Yusuf MD [facility] Urology Office/Clinic Noteon 10-09-2024 Urology Office/Clinic Note Urology Office/Clinic Note HPI Staff 53 year old female new patient here for follow up to [facility] 09/23/24 due to ureteral stone CT [...] kidney stone and JOSE. Denies hx of NM or CVA. Not on anticoagulation. BBSQ 7 Portions of this record may have been created with voice recognition artificial intelligence software, specifically [employer], [employer] and or [employer]. Substitutions may have occurred due to the inherent limitations of voice recognition and artificial intelligence software. 1. Ureteral stone with hydronephrosis (N13.2: Hydronephrosis with renal and ureteral calculous obstruction) Pt presented to [facility] ER 09/23/24 due to R sided flank [...] Follow-up With When Contact Information TREVOR RAMIREZ, YESENIA, URToby Additional Instructions: Schedule laser litho Patient Education Ureteroscopy I, Suyl Burrell, personally scribed for Dr. Avery on 10/09/2024 11:41:27. . Documentation recorded by the scribe, Suly Burrell, accurately reflects the services(s) I performed and decisions made by me. Authenticated by Dr. Yusuf on 10/09/2024 12:01:37. Problem List/Past Medical History Ongoing Arthritis of right knee Disorder of auton (more content not included)... Normal [facility] Comment on above: Result Comment: Elec tronically Signed By: YESENIA YUSUF MD\.br\Date and Time Signed: 10/09/24 12:01 EST\.br\Electronically Co-Signed By: Suly Burrell\.br\Date and Time Co-Signed: 10/09/24 11:42 EST ECG 12 lead (Clinic Performe d)on 07-31-[address] [facility] Work Phone: T3 Totalon 06-24-2024 T3 [Mass/Vol] 94 ng/dL Invalid Interpretation Code [id number] [facility] Comment on above: Result Comment: Perf ormed at: [facility] [address] [id number] PhD Cameron Melara Performed By: #### 1 [id number] #### [facility] [address] [place] [address] CBC w/ Auto Diffon 4 Basophils/100 WBC (Bld) 1.0 % Normal 0.0-2.0 [facility] Comment on above: Performed By: #### 2 [id number] #### [facility] [address] [place] [address] Basophils/Leukocytes Auto (Bld) [Pure # fraction] 0.1 E9/L Normal 0.0-0.2 [facility] Comment on above: Performed By: #### 2 [id number] #### [facility] [address] [place] [address] Eosinophils (Bld) [#/Vol] 0.2 E9/L Normal 0.0-0.5 [facility] Comment on above: Performed By: #### 2 [id number] #### [facility] [address] [place] [address] Eosinophils/100 WBC (Bld) 2.5 % Normal 0.0-8.0 [facility] Comment on above: Performed By: #### 2 [id number] #### [facility] [address] [place] [address] Erythrocyte distribution width (RBC) [Ratio] 14.1 % Normal 10.9-14.2 [facility] Comment on above: Performed By: #### 2 [id number] #### [facility] [address] [place] [address] Hematocrit (Bld) [Volume fraction] 42.5 % Normal 34.0-46.0 [facility] Comment on above: Performed By: #### 2 [id number] #### [facility] [address] [place] [address] Hemoglobin (Bld) [Mass/Vol] 14.4 g/dL Normal 12.0-16.0 [facility] Comment on above: Performed By: #### 2 [id number] #### [facility] [address] [place] [address] Lymphocytes (Bld) [#/Vol] 2.3 E9/L Normal 1.0-4.0 [facility] Comment on above: Performed By: #### 2 [id number] #### [facility] [address] [place] [address] Lymphocytes/100 WBC (Bld) 28.9 % Normal 14.0-50.0 [facility] Comment on above: Performed By: #### 2 [id number] #### [facility] [address] [place] [address] MCH (RBC) [Entitic mass] 31.4 pg Normal 27.0-34.0 [facility] Comment on above: Performed By: #### 2 [id number] #### [facility] [address] [place] [address] MCHC (RBC) [Mass/Vol] 33.9 g/dL Normal 31.4-36.0 [facility] Comment on above: Performed By: #### 2 [id number] #### [facility] [address] [place] [address] MCV (RBC) [Entitic vol] 92.8 fL Normal 80.0-100.0 [facility] Comment on above: Performed By: #### 2 [id number] #### [facility] [address] [place] [address] Monocytes (Bld) [#/Vol] 0.7 E9/L Normal 0.2-1.0 [facility] Comment on above: Performed By: #### 2 [id number] #### [facility] [address] [place] [address] Neutrophils (Bld) [#/Vol] 4.7 E9/L Normal 2.0-7.5 [facility] Comment on above: Performed By: #### 2 [id number] #### [facility] [address] [place] [address] Neutrophils/100 WBC (Bld) 58.7 % Normal 36.0-75.0 [facility] Comment on above: Performed By: #### 2 [id number] #### [facility] [address] [place] [address] Platelet 424.0 E9/L Normal 150.0-500. 0 [facility] Comment on above: Performed By: #### 2 [id number] #### [facility] [address] [place] [address] Platelet mean volume (Bld) [Entitic vol] 7.6 fL Normal 6.4-10.8 [facility] Comment on above: Performed By: #### 2 [id number] #### [facility] [address] [place] [address] RBC (Bld) [#/Vol] 4.6 E12/L Normal 4.3-5.9 [facility] Comment on above: Performed By: #### 2 [id number] #### [facility] [address] [place] [address] WBC corrected for nucl RBC Auto (Bld) [#/Vol] 7.9 E9/L Normal 4.0-11.0 [facility] Comment on above: Performed By: #### 2 [id number] #### [facility] [address] [place] [address] CMPon 06-23-2024 Albumin [Mass/Vol] 4.1 g/dL Normal 3.3-5.0 [facility] Comment on above: Performed By: #### 2 [id number] #### [facility] [address] [place] [address] Albumin/Globulin (S) [Mass conc ratio] 1.6 Normal 1.1-2.2 [facility] Comment on above: Performed By: #### 2 [id number] #### [facility] [address] [place] [address] ALP [Catalytic activity/Vol] 111 Int._Unit/L High - [facility] Comment on above: Performed By: #### 2 [id number] #### [facility] [address] [place] [address] ALT No additional P-5'-P [Catalytic activity/Vol] 14 Int._Unit/L Normal 6-46 [facility] Comment on above: Performed By: #### 2 735108 #### [facility] [address] [place] [address] Anion gap [Moles/Vol] 12 mmol/L Normal 6-16 [facility] Comment on above: Performed By: #### 2 [id number] #### [facility] [address] [place] [address] AST [Catalytic activity/Vol] 12 Int._Unit/L Normal 5-43 [facility] Comment on above: Performed By: #### 2 [id number] #### [facility] [address] [place] [address] Bilirubin [Mass/Vol] 0.4 mg/dL Normal 0.0-1.1 [facility] Comment on above: Performed By: #### 2 [id number] #### [facility] [address] [place] [address] Calcium [Mass/Vol] 9.3 mg/dL Normal 8.9-11.1 [facility] Comment on above: Performed By: #### 2 [id number] #### [facility] [address] [place] [address] Chloride [Moles/Vol] 108 mmol/L Normal 101-111 [facility] Comment on above: Performed By: #### 2 [id number] #### [facility] [address] [place] [address] CO2 [Moles/Vol] 25 mmol/L Normal 21-31 [facility] Comment on above: Performed By: #### 2 [id number] #### [facility] [address] [place] [address] Creatinine [Mass/Vol] 1.1 mg/dL Normal 0.5-1.3 [facility] Comment on above: Performed By: #### 2 456136 #### [facility] [address] [place] [address] Globulin (S) [Mass/Vol] 2.5 g/dL Normal 1.4-4.0 [facility] Comment on above: Performed By: #### 2 505446 #### [facility] [address] [place] [address] Glucose [Mass/Vol] 85 mg/dL Normal 55-199 [facility] Comment on above: Performed By: #### 2 939372 #### [facility] [address] [place] [address] Potassium [Moles/Vol] 4.4 mmol/L Normal 3.5-5.3 [facility] Comment on above: Performed By: #### 2 [id number] #### [facility] [address] [place] [address] Protein [Mass/Vol] 6.6 g/dL Normal 6.0-7.8 [facility] Comment on above: Performed By: #### 2 734551 #### [facility] [address] [place] [address] Sodium [Moles/Vol] 141 mmol/L Normal 135-145 [facility] Comment on above: Performed By: #### 2 [id number] #### [facility] [address] [place] [address] Urea nitrogen [Mass/Vol] 13 mg/dL Normal 5-21 [facility] Comment on above: Performed By: #### 2 [id number] #### [facility] [address] [place] [address] Urea nitrogen/Creatinine [Mass ratio] 12 No Units Normal - [facility] Comment on above: Performed By: #### 2 [id number] #### [facility] [address] [place] [address] [id number] 06-23-2024 HbA1c (Bld) [Mass fraction] 5.8 % Normal <=5.9 [facility] Comment on above: Performed By: #### 7 [id number] #### [facility] [address] [place] [address] Lipid Panelon 06-23-2024 Cholesterol [Mass/Vol] 185 mg/dL Normal 120-200 [facility] Comment on above: Performed By: #### 2 561205 #### [facility] [address] [place] [address] Cholesterol in HDL [Mass/Vol] 40 mg/dL Invalid Interpretation Code [facility] Comment on above: Result Comment: '>= 60 LOW RISK' '<= 40 HIGH RISK' Performed By: #### 2 [id number] #### [facility] [address] [place] [address] Cholesterol in LDL [Mass/Vol] 132 mg/dL High <=129 [facility] Comment on above: Performed By: #### 2 [id number] #### [facility] [address] [place] [address] Cholesterol in VLDL [Mass/Vol] 43 mg/dL High 7-40 [facility] Comment on above: Performed By: #### 2 865652 #### [facility] [address] [place] [address] Triglyceride [Mass/Vol] 213 mg/dL High <=149 [facility] Comment on above: Performed By: #### 2 [id number] #### [facility] [address] [place] [address] T4 & TSHon 06-23-2024 TSH Qn 0.98 m[IU]/L Normal 0.34-5.60 [facility] Comment on above: Performed By: #### 1 [id number] #### [facility] [address] [place] [address] T4 [Mass/Vol] 8.2 microgram/dL Normal 4.6-9.1 [facility] Comment on above: Performed By: #### 1 [id number] #### [facility] [address] [place] [address] Vit B12on 06-23-2024 Cobalamin (Vitamin B12) [Mass/Vol] 208 pg/mL Normal 50-1500 [facility] Comment on above: Performed By: #### 2 [id number] #### [facility] [address] [place] [address] eGFRon 06-23-2024 eGFR 60 mL/min/1.73 m2 Normal >=59 [facility] Comment on above: Performed By: #### 1 [id number] #### [facility] [address] [place] [address] CBC w/ Auto Diffon 4 Basophils/100 WBC (Bld) 1.1 % Normal 0.0-2.0 [facility] Comment on above: Performed By: #### 2 [id number] #### [facility] [address] [place] [address] Basophils/Leukocytes Auto (Bld) [Pure # fraction] 0.1 E9/L Normal 0.0-0.2 [facility] Comment on above: Performed By: #### 2 [id number] #### [facility] [address] [place] [address] Eosinophils (Bld) [#/Vol] 0.2 E9/L Normal 0.0-0.5 [facility] Comment on above: Performed By: #### 2 [id number] #### [facility] [address] [place] [address] Eosinophils/100 WBC (Bld) 2.7 % Normal 0.0-8.0 [facility] Comment on above: Performed By: #### 2 137552 #### [facility] [address] [place] [address] Erythrocyte distribution width (RBC) [Ratio] 15.0 % High 10.9-14.2 [facility] Comment on above: Performed By: #### 2 [id number] #### [facility] [address] [place] [address] Hematocrit (Bld) [Volume fraction] 45.5 % Normal 34.0-46.0 [facility] Comment on above: Performed By: #### 2 [id number] #### [facility] [address] [place] [address] Hemoglobin (Bld) [Mass/Vol] 15.4 g/dL Normal 12.0-16.0 [facility] Comment on above: Performed By: #### 2 012175 #### [facility] [address] [place] [address] Lymphocytes (Bld) [#/Vol] 2.5 E9/L Normal 1.0-4.0 [facility] Comment on above: Performed By: #### 2 185797 #### [facility] [address] [place] [address] Lymphocytes/100 WBC (Bld) 27.7 % Normal 14.0-50.0 [facility] Comment on above: Performed By: #### 2 813742 #### [facility] [address] [place] [address] MCH (RBC) [Entitic mass] 31.4 pg Normal 27.0-34.0 [facility] Comment on above: Performed By: #### 2 [id number] #### [facility] [address] [place] [address] MCHC (RBC) [Mass/Vol] 33.9 g/dL Normal 31.4-36.0 [facility] Comment on above: Performed By: #### 2 226762 #### [facility] [address] [place] [address] MCV (RBC) [Entitic vol] 92.5 fL Normal 80.0-100.0 [facility] Comment on above: Performed By: #### 2 469180 #### [facility] [address] [place] [address] Monocytes (Bld) [#/Vol] 0.7 E9/L Normal 0.2-1.0 [facility] Comment on above: Performed By: #### 2 790850 #### [facility] [address] [place] [address] Neutrophils (Bld) [#/Vol] 5.4 E9/L Normal 2.0-7.5 [facility] Comment on above: Performed By: #### 2 388347 #### [facility] [address] [place] [address] Neutrophils/100 WBC (Bld) 60.7 % Normal 36.0-75.0 [facility] Comment on above: Performed By: #### 2 480320 #### [facility] [address] [place] [address] Platelet 446.0 E9/L Normal 150.0-500. 0 [facility] Comment on above: Performed By: #### 2 [id number] #### [facility] [address] [place] [address] Platelet mean volume (Bld) [Entitic vol] 7.9 fL Normal 6.4-10.8 [facility] Comment on above: Performed By: #### 2 [id number] #### [facility] [address] [place] [address] RBC (Bld) [#/Vol] 4.9 E12/L Normal 4.3-5.9 [facility] Comment on above: Performed By: #### 2 [id number] #### [facility] [address] [place] [address] WBC corrected for nucl RBC Auto (Bld) [#/Vol] 8.9 E9/L Normal 4.0-11.0 [facility] Comment on above: Performed By: #### 2 [id number] #### [facility] [address] [place] [address] CMPon 05-04-2024 Albumin [Mass/Vol] 4.1 g/dL Normal 3.3-5.0 [facility] Comment on above: Performed By: #### 2 [id number] #### [facility] [address] [place] [address] Albumin/Globulin (S) [Mass conc ratio] 1.4 Normal 1.1-2.2 [facility] Comment on above: Performed By: #### 2 906908 #### [facility] [address] [place] [address] ALP [Catalytic activity/Vol] 134 Int._Unit/L High 21-98 [facility] Comment on above: Performed By: #### 2 798802 #### [facility] [address] [place] [address] ALT No additional P-5'-P [Catalytic activity/Vol] 18 Int._Unit/L Normal 6-46 [facility] Comment on above: Performed By: #### 2 [id number] #### [facility] [address] [place] [address] Anion gap [Moles/Vol] 13 mmol/L Normal 6-16 [facility] Comment on above: Performed By: #### 2 [id number] #### [facility] [address] [place] [address] AST [Catalytic activity/Vol] 13 Int._Unit/L Normal 5-43 [facility] Comment on above: Performed By: #### 2 [id number] #### [facility] [address] [place] [address] Bilirubin [Mass/Vol] 0.4 mg/dL Normal 0.0-1.1 [facility] Comment on above: Performed By: #### 2 [id number] #### [facility] [address] [place] [address] Calcium [Mass/Vol] 9.3 mg/dL Normal 8.9-11.1 [facility] Comment on above: Performed By: #### 2 875484 #### [facility] [address] [place] [address] Chloride [Moles/Vol] 103 mmol/L Normal 101-111 [facility] Comment on above: Performed By: #### 2 [id number] #### [facility] [address] [place] [address] CO2 [Moles/Vol] 27 mmol/L Normal 21-31 [facility] Comment on above: Performed By: #### 2 [id number] #### [facility] [address] [place] [address] Creatinine [Mass/Vol] 1.2 mg/dL Normal 0.5-1.3 [facility] Comment on above: Performed By: #### 2 790096 #### [facility] [address] [place] [address] Globulin (S) [Mass/Vol] 2.9 g/dL Normal 1.4-4.0 [facility] Comment on above: Performed By: #### 2 795445 #### [facility] [address] [place] [address] Glucose [Mass/Vol] 103 mg/dL Normal 55-199 [facility] Comment on above: Performed By: #### 2 [id number] #### [facility] [address] [place] [address] Potassium [Moles/Vol] 4.9 mmol/L Normal 3.5-5.3 [facility] Comment on above: Performed By: #### 2 858406 #### [facility] [address] [place] [address] Protein [Mass/Vol] 7.0 g/dL Normal 6.0-7.8 [facility] Comment on above: Performed By: #### 2 [id number] #### [facility] [address] [place] [address] Sodium [Moles/Vol] 138 mmol/L Normal 135-145 [facility] Comment on above: Performed By: #### 2 [id number] #### [facility] [address] [place] [address] Urea nitrogen [Mass/Vol] 11 mg/dL Normal 5-21 [facility] Comment on above: Performed By: #### 2 308751 #### [facility] [address] [place] [address] Urea nitrogen/Creatinine [Mass ratio] 9 No Units Low 10-20 [facility] Comment on above: Performed By: #### 2 [id number] #### [facility] [address] [place] [address] Lipid Panelon 05-04-2024 Cholesterol [Mass/Vol] 177 mg/dL Normal 120-200 [facility] Comment on above: Performed By: #### 2 [id number] #### [facility] [address] [place] [address] Cholesterol in HDL [Mass/Vol] 43 mg/dL Invalid Interpretation Code [facility] Comment on above: Result Comment: '>= 60 LOW RISK' '<= 40 HIGH RISK' Performed By: #### 2 [id number] #### [facility] [address] [place] [address] Cholesterol in LDL [Mass/Vol] 125 mg/dL Normal <=129 [facility] Comment on above: Performed By: #### 2 [id number] #### [facility] [address] [place] [address] Cholesterol in VLDL [Mass/Vol] 33 mg/dL Normal 7-40 [facility] Comment on above: Performed By: #### 2 475907 #### [facility] [address] [place] [address] Triglyceride [Mass/Vol] 165 mg/dL High <=149 [facility] Comment on above: Performed By: #### 2 044328 #### [facility] [address] [place] [address] T4 & TSHon 05-04-2024 TSH Qn 1.28 m[IU]/L Normal 0.34-5.60 [facility] Comment on above: Performed By: #### 1 [id number] #### [facility] [address] [place] [address] T4 [Mass/Vol] 9.2 microgram/dL High 4.6-9.1 [facility] Comment on above: Performed By: #### 1 [id number] #### [facility] [address] [place] [address] Vit B12on 05-04-2024 Cobalamin (Vitamin B12) [Mass/Vol] 186 pg/mL Normal 50-1500 [facility] Comment on above: Performed By: #### 2 375843 #### [facility] [address] [place] [address] eGFRon 05-04-2024 eGFR 54 mL/min/1.73 m2 Low >=59 [facility] Comment on above: Order Comment: Order added by Discern Expert. Performed By: #### 1 [id number] #### [facility] [address] [place] [address] FLUORO FOR SURGICAL PROCEDUR ESon 03-21-2024 FLUORO FOR SURGICAL PROCEDURES Radiology exam is complete. No Radiologist dictation. Please follow up with ordering provider. Final result Normal [facility] Physician Orderon 02-23-2024 Physician Order [id number]#[id number] Normal [facility] CMPon 01-21-2024 Albumin [Mass/Vol] 3.7 g/dL Normal 3.3-5.0 [facility] Comment on above: Performed By: #### 2 766049 #### [facility] [address] [place] [address] Albumin/Globulin (S) [Mass conc ratio] 1.6 Normal 1.1-2.2 [facility] Comment on above: Performed By: #### 2 360110 #### [facility] [address] [place] [address] ALP [Catalytic activity/Vol] 114 Int._Unit/L High 21-98 [facility] Comment on above: Performed By: #### 2 613230 #### [facility] [address] [place] [address] ALT No additional P-5'-P [Catalytic activity/Vol] 18 Int._Unit/L Normal 6-46 [facility] Comment on above: Performed By: #### 2 441358 #### [facility] [address] [place] [address] Anion gap [Moles/Vol] 9 mmol/L Normal 6-16 [facility] Comment on above: Performed By: #### 2 036072 #### [facility] [address] [place] [address] AST [Catalytic activity/Vol] 13 Int._Unit/L Normal 5-43 [facility] Comment on above: Performed By: #### 2 699971 #### [facility] [address] [place] [address] Bilirubin [Mass/Vol] 0.3 mg/dL Normal 0.0-1.1 [facility] Comment on above: Performed By: #### 2 [id number] #### [facility] [address] [place] [address] Calcium [Mass/Vol] 8.5 mg/dL Low 8.9-11.1 [facility] Comment on above: Performed By: #### 2 262258 #### [facility] [address] [place] [address] Chloride [Moles/Vol] 106 mmol/L Normal 101-111 [facility] Comment on above: Performed By: #### 2 669083 #### [facility] [address] [place] [address] CO2 [Moles/Vol] 27 mmol/L Normal 21-31 [facility] Comment on above: Performed By: #### 2 735878 #### [facility] [address] [place] [address] Creatinine [Mass/Vol] 0.9 mg/dL Normal 0.5-1.3 [facility] Comment on above: Performed By: #### 2 185587 #### [facility] [address] [place] [address] Globulin (S) [Mass/Vol] 2.3 g/dL Normal 1.4-4.0 [facility] Comment on above: Performed By: #### 2 936250 #### [facility] [address] [place] [address] Glucose [Mass/Vol] 107 mg/dL Normal 55-199 [facility] Comment on above: Performed By: #### 2 606185 #### [facility] [address] [place] [address] Potassium [Moles/Vol] 4.3 mmol/L Normal 3.5-5.3 [facility] Comment on above: Performed By: #### 2 702615 #### [facility] [address] [place] [address] Protein [Mass/Vol] 6.0 g/dL Normal 6.0-7.8 [facility] Comment on above: Performed By: #### 2 463434 #### [facility] [address] [place] [address] Sodium [Moles/Vol] 138 mmol/L Normal 135-145 [facility] Comment on above: Performed By: #### 2 726490 #### [facility] [address] [place] [address] Urea nitrogen [Mass/Vol] 11 mg/dL Normal 5-21 [facility] Comment on above: Performed By: #### 2 037341 #### [facility] [address] [place] [address] Urea nitrogen/Creatinine [Mass ratio] 12 No Units Normal 10-20 [facility] Comment on above: Performed By: #### 2 214800 #### [facility] [address] [place] [address] Physician Orderon 01-21-2024 Physician Order [id number]#[id number] Normal [facility] eGFRon 01-21-2024 eGFR 77 mL/min/1.73 m2 Normal >=59 [facility] Comment on above: Order Comment: Order added by Discern Expert. Performed By: #### 1 [id number] #### [facility] [address] [place] [address] FL GUIDED FOR SPINE INJECTon 12-23-2023 FL GUIDED FOR SPINE INJECT Final result Normal [facility] BRITNI w/Reflex if POSon 2023 Nuclear Ab Ql (S) Negative Invalid Interpretation Code Negative [facility] Comment on above: Result Comment: Perf ormed at: [facility] [address] [id number] PhD Cameron Melara Performed By: #### 7 [id number], 0183716, 09958223, 0933906 #### [facility] [address] [place] [address] RF Quanton 11-26-2023 Rheumatoid factor Qn [IU]/mL Invalid Interpretation Code <14.0 [facility] Comment on above: Result Comment: Perf ormed at: [facility] [address] [id number] PhD Cameron Melara Performed By: #### 1 [id number], 61251474, 68890330, 6201137 #### [facility] [address] [place] [address] CMPon 11-24-2023 Albumin [Mass/Vol] 4.3 g/dL Normal 3.3-5.0 [facility] Comment on above: Performed By: #### 1 3105699, 06279763, 66144167, 7684329 #### [facility] [address] [place] [address] Albumin/Globulin (S) [Mass conc ratio] 1.9 Normal 1.1-2.2 [facility] Comment on above: Performed By: #### 1 0297364, 02961860, 90227795, 4448563 #### [facility] [address] [place] [address] ALP [Catalytic activity/Vol] 91 Int._Unit/L Normal 21-98 [facility] Comment on above: Performed By: #### 1 5295246, 89035628, 90220634, 5369436 #### [facility] [address] [place] [address] ALT No additional P-5'-P [Catalytic activity/Vol] 17 Int._Unit/L Normal 6-46 [facility] Comment on above: Performed By: #### 1 7559885, 55988928, 88900898, 5660701 #### [facility] [address] [place] [address] Anion gap [Moles/Vol] 12 mmol/L Normal 6-16 [facility] Comment on above: Performed By: #### 1 6852668, 10894202, 89216847, 7281275 #### [facility] [address] [place] [address] AST [Catalytic activity/Vol] 13 Int._Unit/L Normal 5-43 [facility] Comment on above: Performed By: #### 1 4604599, 90286331, 29084653, 5172761 #### [facility] [address] [place] [address] Bilirubin [Mass/Vol] 0.4 mg/dL Normal 0.0-1.1 [facility] Comment on above: Performed By: #### 1 0401478, 65815891, 31678835, 9759236 #### [facility] [address] [place] [address] Calcium [Mass/Vol] 9.8 mg/dL Normal 8.9-11.1 [facility] Comment on above: Performed By: #### 1 0797140, 57492304, 32048094, 6980732 #### [facility] [address] [place] [address] Chloride [Moles/Vol] 107 mmol/L Normal 101-111 [facility] Comment on above: Performed By: #### 1 8718838, 12801737, 31318595, 7411839 #### [facility] [address] [place] [address] CO2 [Moles/Vol] 26 mmol/L Normal 21-31 [facility] Comment on above: Performed By: #### 1 0567776, 84556847, 98182420, 1341213 #### [facility] [address] [place] [address] Creatinine [Mass/Vol] 1.1 mg/dL Normal 0.5-1.3 [facility] Comment on above: Performed By: #### 1 7712219, 61286216, 14390172, 6324968 #### [facility] [address] [place] [address] Globulin (S) [Mass/Vol] 2.3 g/dL Normal 1.4-4.0 [facility] Comment on above: Performed By: #### 1 4652242, 38039996, 33641675, 4059633 #### [facility] [address] [place] [address] Glucose [Mass/Vol] 64 mg/dL Normal 55-199 [facility] Comment on above: Performed By: #### 1 1198699, 78902805, 97994900, 1866402 #### [facility] [address] [place] [address] Potassium [Moles/Vol] 4.5 mmol/L Normal 3.5-5.3 [facility] Comment on above: Performed By: #### 1 7386918, 37593483, 69806999, 1158163 #### [facility] [address] [place] [address] Protein [Mass/Vol] 6.6 g/dL Normal 6.0-7.8 [facility] Comment on above: Performed By: #### 1 1061886, 82414578, 11189524, 3562390 #### [facility] [address] [place] [address] Sodium [Moles/Vol] 140 mmol/L Normal 135-145 [facility] Comment on above: Performed By: #### 1 3891720, 25486219, 09017339, 1546814 #### [facility] [address] [place] [address] Urea nitrogen [Mass/Vol] 11 mg/dL Normal 5-21 [facility] Comment on above: Performed By: #### 1 9753050, 13838608, 48065848, 1553453 #### [facility] [address] [place] [address] Urea nitrogen/Creatinine [Mass ratio] 10 No Units Normal 10-20 [facility] Comment on above: Performed By: #### 1 8454608, 27178938, 08472817, 6536137 #### [facility] [address] [place] [address] eGFRon 11-24-2023 eGFR 60 mL/min/1.73 m2 Normal >=59 [facility] Comment on above: Order Comment: Order added by Discern Expert. Performed By: #### 1 6339404, 63494580, 59556180, 9702247 #### [facility] [address] [place] [address] CMPon 11-10-2023 Albumin [Mass/Vol] 3.7 g/dL Normal 3.3-5.0 [facility] Comment on above: Performed By: #### 1 7755019, 0740249 #### [facility] [address] [place] [address] Albumin/Globulin (S) [Mass conc ratio] 1.9 Normal 1.1-2.2 [facility] Comment on above: Performed By: #### 1 9705839, 1361152 #### [facility] [address] [place] [address] ALP [Catalytic activity/Vol] 76 Int._Unit/L Normal 21-98 [facility] Comment on above: Performed By: #### 1 7075154, 9336571 #### [facility] [address] [place] [address] ALT No additional P-5'-P [Catalytic activity/Vol] 14 Int._Unit/L Normal 6-46 [facility] Comment on above: Performed By: #### 1 0605925, 0923698 #### [facility] [address] [place] [address] Anion gap [Moles/Vol] 10 mmol/L Normal 6-16 [facility] Comment on above: Performed By: #### 1 9316325, 8919261 #### [facility] [address] [place] [address] AST [Catalytic activity/Vol] 10 Int._Unit/L Normal 5-43 [facility] Comment on above: Performed By: #### 1 4683850, 8222985 #### [facility] [address] [place] [address] Bilirubin [Mass/Vol] 0.4 mg/dL Normal 0.0-1.1 [facility] Comment on above: Performed By: #### 1 9485335, 1054374 #### [facility] [address] [place] [address] Calcium [Mass/Vol] 8.6 mg/dL Low 8.9-11.1 [facility] Comment on above: Performed By: #### 1 1972889, 0243026 #### [facility] [address] [place] [address] Chloride [Moles/Vol] 109 mmol/L Normal 101-111 [facility] Comment on above: Performed By: #### 1 6969419, 5520034 #### [facility] [address] [place] [address] CO2 [Moles/Vol] 27 mmol/L Normal 21-31 [facility] Comment on above: Performed By: #### 1 4545205, 3135038 #### [facility] [address] [place] [address] Creatinine [Mass/Vol] 1.0 mg/dL Normal 0.5-1.3 [facility] Comment on above: Performed By: #### 1 9929853, 4503328 #### [facility] [address] [place] [address] Globulin (S) [Mass/Vol] 2.0 g/dL Normal 1.4-4.0 [facility] Comment on above: Performed By: #### 1 4175936, 1588454 #### [facility] [address] [place] [address] Glucose [Mass/Vol] 78 mg/dL Normal 55-199 [facility] Comment on above: Performed By: #### 1 7914097, 9431762 #### [facility] [address] [place] [address] Potassium [Moles/Vol] 3.9 mmol/L Normal 3.5-5.3 [facility] Comment on above: Performed By: #### 1 7768215, 5239754 #### [facility] [address] [place] [address] Protein [Mass/Vol] 5.7 g/dL Low 6.0-7.8 [facility] Comment on above: Performed By: #### 1 5593482, 9176724 #### [facility] [address] [place] [address] Sodium [Moles/Vol] 142 mmol/L Normal 135-145 [facility] Comment on above: Performed By: #### 1 6217612, 0517256 #### [facility] [address] [place] [address] Urea nitrogen [Mass/Vol] 9 mg/dL Normal 5-21 [facility] Comment on above: Performed By: #### 1 0160718, 1178512 #### [facility] [address] [place] [address] Urea nitrogen/Creatinine [Mass ratio] 9 No Units Low 10-20 [facility] Comment on above: Performed By: #### 1 6680338, 5422875 #### [facility] [address] [place] [address] Physician Orderon 11-10-2023 Physician Order [id number]#[id number] Normal [facility] eGFRon 11-10-2023 eGFR 68 mL/min/1.73 m2 Normal >=59 [facility] Comment on above: Order Comment: Order added by Discern Expert. Performed By: #### 1 3681545, 4554338 #### [facility] [address] [place] [address] CBC w/ Auto Diffon 4 Basophil Absolute 0.1 E9/L Normal 0.0-0.2 [facility] Comment on above: Performed By: #### 7 98849270, 9844649, 59598396, 4962689 #### [facility] [address] [place] [address] Basophils/100 WBC (Bld) 1.1 % Normal 0.0-2.0 [facility] Comment on above: Performed By: #### 7 82097016, 1404166, 87184840, 4380969 #### [facility] [address] [place] [address] Eos Absolute 0.2 E9/L Normal 0.0-0.5 [facility] Comment on above: Performed By: #### 7 94271590, 7136144, 32008239, 6165571 #### [facility] [address] [place] [address] Eosinophils/100 WBC (Bld) 1.9 % Normal 0.0-8.0 [facility] Comment on above: Performed By: #### 7 53180542, 4561276, 66601035, 4558591 #### [facility] [address] [place] [address] Erythrocyte distribution width (RBC) [Ratio] 16.6 % High 10.9-14.2 [facility] Comment on above: Performed By: #### 7 44947738, 6652642, 85347015, 4627537 #### [facility] [address] [place] [address] Hematocrit (Bld) [Volume fraction] 39.0 % Normal 34.0-46.0 [facility] Comment on above: Performed By: #### 7 60788914, 2975983, 46911647, 2344389 #### [facility] [address] [place] [address] Hemoglobin (Bld) [Mass/Vol] 12.2 g/dL Normal 12.0-16.0 [facility] Comment on above: Performed By: #### 7 74437999, 2866696, 87193256, 2931626 #### [facility] [address] [place] [address] Lymph Absolute 1.9 E9/L Normal 1.0-4.0 [facility] Comment on above: Performed By: #### 7 70729519, 9038516, 26664223, 4802072 #### [facility] [address] [place] [address] Lymphocytes/100 WBC (Bld) 17.8 % Normal 14.0-50.0 [facility] Comment on above: Performed By: #### 7 63878884, 5104380, 92210338, 0548679 #### [facility] [address] [place] [address] MCH (RBC) [Entitic mass] 30.4 pg Normal 27.0-34.0 [facility] Comment on above: Performed By: #### 7 17945483, 8559693, 35389506, 0558047 #### [facility] [address] [place] [address] MCHC (RBC) [Mass/Vol] 31.4 g/dL Normal 31.4-36.0 [facility] Comment on above: Performed By: #### 7 12125390, 5289413, 09190720, 1074536 #### [facility] [address] [place] [address] MCV (RBC) [Entitic vol] 96.7 fL Normal 80.0-100.0 [facility] Comment on above: Performed By: #### 7 11451183, 8769987, 15012819, 8561741 #### [facility] [address] [place] [address] Comal Absolute 0.9 E9/L Normal 0.2-1.0 [facility] Comment on above: Performed By: #### 7 76341567, 2941137, 09090076, 0600111 #### [facility] [address] [place] [address] Monocytes/100 WBC (Bld) 8.4 % Normal 4.0-14.0 [facility] Comment on above: Performed By: #### 7 45618691, 0459935, 19978960, 0947261 #### [facility] [address] [place] [address] Neutro Absolute 7.5 E9/L Normal 2.0-7.5 [facility] Comment on above: Performed By: #### 7 24862118, 2819992, 96261760, 8782816 #### [facility] [address] [place] [address] Neutro Auto 70.8 % Normal 36.0-75.0 [facility] Comment on above: Performed By: #### 7 03936942, 6578849, 74332662, 2731401 #### [facility] [address] [place] [address] Platelet 391.0 E9/L Normal 150.0-500. 0 [facility] Comment on above: Performed By: #### 7 95919777, 0432346, 45236938, 3844080 #### [facility] [address] [place] [address] Platelet mean volume (Bld) [Entitic vol] 7.4 fL Normal 6.4-10.8 [facility] Comment on above: Performed By: #### 7 09415198, 9708336, 17716903, 0185355 #### [facility] [address] [place] [address] RBC 4.0 E12/L Low 4.3-5.9 [facility] Comment on above: Performed By: #### 7 95812107, 4105020, 33177131, 5719909 #### [facility] [address] [place] [address] WBC 10.6 E9/L Normal 4.0-11.0 [facility] Comment on above: Performed By: #### 7 51974045, 9260075, 22472658, 9764609 #### [facility] [address] [place] [address] CMPon 10-26-2023 Albumin [Mass/Vol] 3.7 g/dL Normal 3.3-5.0 [facility] Comment on above: Performed By: #### 7 47552563, 3725493, 75851999, 7620885 #### [facility] [address] [place] [address] Albumin/Globulin [Mass ratio] 1.5 {ratio} Normal 1.1-2.2 [facility] Comment on above: Performed By: #### 7 05145162, 7629678, 39991949, 9747174 #### [facility] [address] [place] [address] Alk Phos 66 Int._Unit/L Normal 21-98 [facility] Comment on above: Performed By: #### 7 23676375, 9790832, 97172754, 0806052 #### [facility] [address] [place] [address] ALT 19 Int._Unit/L Normal 6-46 [facility] Comment on above: Performed By: #### 7 01650441, 7415493, 41726533, 2048389 #### [facility] [address] [place] [address] Anion gap [Moles/Vol] 12 mmol/L Normal 6-16 [facility] Comment on above: Performed By: #### 7 71204828, 9273536, 22717405, 8007239 #### [facility] [address] [place] [address] AST 11 Int._Unit/L Normal 5-43 [facility] Comment on above: Performed By: #### 7 72975793, 4887376, 70447916, 8450926 #### [facility] [address] [place] [address] Bili Total 0.4 mg/dL Normal 0.0-1.1 [facility] Comment on above: Performed By: #### 7 01632379, 1563148, 48033355, 8889697 #### [facility] [address] [place] [address] BUN/Creat Ratio 9 No Units Low 10-20 [facility] [facility] Comment on above: Performed By: #### 7 [id number], 4188713, 48221861, 8286134 #### [facility] [address] [place] [address] Calcium [Mass/Vol] 8.9 mg/dL Normal 8.9-11.1 [facility] Comment on above: Performed By: #### 7 [id number], 5397464, 30393994, 3574448 #### [facility] [address] [place] [address] Chloride [Moles/Vol] 108 mmol/L Normal 101-111 [facility] Comment on above: Performed By: #### 7 39369548, 9533182, 68397372, 6953888 #### [facility] [address] [place] [address] CO2 [Moles/Vol] 26 mmol/L Normal 21-31 [facility] Comment on above: Performed By: #### 7 51534806, 2644131, 65568048, 0488384 #### [facility] [address] [place] [address] Creatinine [Mass/Vol] 1.2 mg/dL Normal 0.5-1.3 [facility] Comment on above: Performed By: #### 7 11525179, 9340202, 28855505, 6812582 #### [facility] [address] [place] [address] Globulin (S) [Mass/Vol] 2.4 g/dL Normal 1.4-4.0 [facility] Comment on above: Performed By: #### 7 37035142, 9802682, 91989468, 5496170 #### [facility] [address] [place] [address] Glucose [Mass/Vol] 87 mg/dL Normal 55-199 [facility] Comment on above: Performed By: #### 7 89342863, 6535306, 04366047, 2157483 #### [facility] [address] [place] [address] Potassium [Moles/Vol] 3.8 mmol/L Normal 3.5-5.3 [facility] Comment on above: Performed By: #### 7 01921066, 6576515, 62076516, 5169717 #### [facility] [address] [place] [address] Protein [Mass/Vol] 6.1 g/dL Normal 6.0-7.8 [facility] Comment on above: Performed By: #### 7 87032584, 4066348, 25957280, 4763881 #### [facility] [address] [place] [address] Sodium [Moles/Vol] 142 mmol/L Normal 135-145 [facility] Comment on above: Performed By: #### 7 18480914, 2171682, 46892583, 5819830 #### [facility] [address] [place] [address] Urea nitrogen [Mass/Vol] 11 mg/dL Normal 5-21 [facility] Comment on above: Performed By: #### 7 78397688, 3858094, 90931953, 2927581 #### [facility] [address] [place] [address] Physician Orderon 10-26-2023 Physician Order [id number] Normal [facility] eGFRon 10-26-2023 eGFR 54 mL/min/1.73 m2 Low >=59 [facility] Comment on above: Order Comment: Order added by Discern Expert. Performed By: #### 7 [id number], 9395866, 01296947, 0711148 #### [facility] [address] [place] [address] CBC w/ Auto Diffon 4 Basophil Absolute 0.1 E9/L Normal 0.0-0.2 [facility] Comment on above: Performed By: #### 7 49192347, 2527564, 77108353, 8418875 #### [facility] [address] [place] [address] Basophils/100 WBC (Bld) 0.3 % Normal 0.0-2.0 [facility] Comment on above: Performed By: #### 7 71478569, 3671653, 10913742, 1902286 #### [facility] [address] [place] [address] Eos Absolute 0.1 E9/L Normal 0.0-0.5 [facility] Comment on above: Performed By: #### 7 29607017, 9721354, 54562821, 7816957 #### [facility] [address] [place] [address] Eosinophils/100 WBC (Bld) 0.3 % Normal 0.0-8.0 [facility] Comment on above: Performed By: #### 7 67324019, 5873306, 85742378, 0773790 #### [facility] [address] [place] [address] Erythrocyte distribution width (RBC) [Ratio] 15.1 % High 10.9-14.2 [facility] Comment on above: Performed By: #### 7 40449189, 5323157, 72734080, 0786972 #### [facility] [address] [place] [address] Hematocrit (Bld) [Volume fraction] 37.0 % Normal 34.0-46.0 [facility] Comment on above: Performed By: #### 7 75898859, 1649588, 24400842, 4955627 #### [facility] [address] [place] [address] Hemoglobin (Bld) [Mass/Vol] 11.8 g/dL Low 12.0-16.0 [facility] Comment on above: Performed By: #### 7 56501487, 2700712, 26087993, 2302438 #### [facility] [address] [place] [address] Lymph Absolute 4.6 E9/L High 1.0-4.0 [facility] Comment on above: Performed By: #### 7 62875052, 5078119, 16456602, 8306951 #### [facility] [address] [place] [address] Lymphocytes/100 WBC (Bld) 26.1 % Normal 14.0-50.0 [facility] Comment on above: Performed By: #### 7 54109881, 6193418, 77347735, 9167855 #### [facility] [address] [place] [address] MCH (RBC) [Entitic mass] 30.5 pg Normal 27.0-34.0 [facility] Comment on above: Performed By: #### 7 22646980, 3499775, 41982695, 1630045 #### [facility] [address] [place] [address] MCHC (RBC) [Mass/Vol] 31.9 g/dL Normal 31.4-36.0 [facility] Comment on above: Performed By: #### 7 80715738, 1755965, 26308625, 0407077 #### [facility] [address] [place] [address] MCV (RBC) [Entitic vol] 95.7 fL Normal 80.0-100.0 [facility] Comment on above: Performed By: #### 7 61825781, 1075020, 49866498, 2459666 #### [facility] [address] [place] [address] Comal Absolute 1.6 E9/L High 0.2-1.0 [facility] Comment on above: Performed By: #### 7 07808540, 3099220, 27462620, 4448979 #### [facility] [address] [place] [address] Monocytes/100 WBC (Bld) 9.2 % Normal 4.0-14.0 [facility] Comment on above: Performed By: #### 7 19895903, 5813496, 43605669, 8895144 #### [facility] [address] [place] [address] Neutro Absolute 11.4 E9/L High 2.0-7.5 [facility] Comment on above: Performed By: #### 7 22489797, 7061953, 89998836, 2311410 #### [facility] [address] [place] [address] Neutro Auto 64.1 % Normal 36.0-75.0 [facility] Comment on above: Performed By: #### 7 60444227, 5215346, 44682746, 5799209 #### [facility] [address] [place] [address] Platelet 453.0 E9/L Normal 150.0-500. 0 [facility] Comment on above: Performed By: #### 7 52936757, 0217481, 71811634, 9553953 #### [facility] [address] [place] [address] Platelet mean volume (Bld) [Entitic vol] 7.4 fL Normal 6.4-10.8 [facility] Comment on above: Performed By: #### 7 14861043, 0496449, 28186623, 8045713 #### [facility] [address] [place] [address] RBC 3.9 E12/L Low 4.3-5.9 [facility] Comment on above: Performed By: #### 7 82804145, 4261066, 48385208, 8588429 #### [facility] [address] [place] [address] WBC 17.8 E9/L High 4.0-11.0 [facility] Comment on above: Result Comment: Slid e reviewed by KD Performed By: #### 7 54543080, 2193086, 43383440, 1103341 #### [facility] [address] [place] [address] CMPon 10-22-2023 Albumin [Mass/Vol] 3.5 g/dL Normal 3.3-5.0 [facility] Comment on above: Performed By: #### 7 00741737, 7110910, 99265192, 3510004 #### [facility] [address] [place] [address] Albumin/Globulin [Mass ratio] 1.6 {ratio} Normal 1.1-2.2 [facility] Comment on above: Performed By: #### 7 75926176, 4081164, 92145977, 4527698 #### [facility] [address] [place] [address] Alk Phos 54 Int._Unit/L Normal 21-98 [facility] Comment on above: Performed By: #### 7 43216593, 5618117, 47673348, 4919616 #### [facility] [address] [place] [address] ALT 21 Int._Unit/L Normal 6-46 [facility] Comment on above: Performed By: #### 7 91781311, 3579840, 39922579, 6927160 #### [facility] [address] [place] [address] Anion gap [Moles/Vol] 10 mmol/L Normal 6-16 [facility] Comment on above: Performed By: #### 7 76603454, 8470539, 36808256, 2413473 #### [facility] [address] [place] [address] AST 10 Int._Unit/L Normal 5-43 [facility] Comment on above: Performed By: #### 7 26686539, 7833212, 02261386, 4735478 #### [facility] [address] [place] [address] Bili Total 0.3 mg/dL Normal 0.0-1.1 [facility] Comment on above: Performed By: #### 7 82116059, 6168575, 93086639, 6723831 #### [facility] [address] [place] [address] BUN/Creat Ratio 19 No Units Normal 10-20 [facility] Comment on above: Performed By: #### 7 81307971, 0139063, 85648074, 2179212 #### [facility] [address] [place] [address] Calcium [Mass/Vol] 8.7 mg/dL Low 8.9-11.1 [facility] Comment on above: Performed By: #### 7 36108426, 3396696, 57977123, 9842465 #### [facility] [address] [place] [address] Chloride [Moles/Vol] 108 mmol/L Normal 101-111 [facility] Comment on above: Performed By: #### 7 68103031, 6181770, 20945704, 5706884 #### [facility] [address] [place] [address] CO2 [Moles/Vol] 28 mmol/L Normal 21-31 [facility] Comment on above: Performed By: #### 7 87591771, 0613892, 63229198, 4951986 #### [facility] [address] [place] [address] Creatinine [Mass/Vol] 1.3 mg/dL Normal 0.5-1.3 [facility] Comment on above: Performed By: #### 7 45736371, 6272998, 10815618, 6944793 #### [facility] [address] [place] [address] Globulin (S) [Mass/Vol] 2.2 g/dL Normal 1.4-4.0 [facility] Comment on above: Performed By: #### 7 27877856, 4170641, 70820630, 7899891 #### [facility] [address] [place] [address] Glucose [Mass/Vol] 77 mg/dL Normal 55-199 [facility] Comment on above: Performed By: #### 7 02391236, 9717872, 30302033, 0173478 #### [facility] [address] [place] [address] Potassium [Moles/Vol] 4.2 mmol/L Normal 3.5-5.3 [facility] Comment on above: Performed By: #### 7 27630317, 4792085, 00763973, 2591969 #### [facility] [address] [place] [address] Protein [Mass/Vol] 5.7 g/dL Low 6.0-7.8 [facility] Comment on above: Performed By: #### 7 85592611, 8912355, 23952858, 4886394 #### [facility] [address] [place] [address] Sodium [Moles/Vol] 142 mmol/L Normal 135-145 [facility] Comment on above: Performed By: #### 7 25092750, 6550146, 82404923, 0464443 #### [facility] [address] [place] [address] Urea nitrogen [Mass/Vol] 25 mg/dL High 5-21 [facility] Comment on above: Performed By: #### 7 19446803, 8067336, 63012104, 0242087 #### [facility] [address] [place] [address] [id number] 10-22-2023 HbA1c (Bld) [Mass fraction] 6.2 % High <=5.9 [facility] Comment on above: Performed By: #### 7 48227378, 9818664, 84256379, 7040600 #### [facility] [address] [place] [address] Physician Orderon 10-22-2023 Physician Order [id number] Normal [facility] eGFRon 10-22-2023 eGFR 49 mL/min/1.73 m2 Low >=59 [facility] Comment on above: Order Comment: Order added by Discern Expert. Performed By: #### 7 68013079, 5846656, 18968212, 2185518 #### [facility] [address] [place] [address] CBC w/ Auto Diffon 4 Basophil Absolute 0.1 E9/L Normal 0.0-0.2 [facility] Comment on above: Performed By: #### 7 58836896, 9393146, 12979829, 4121101 #### [facility] [address] [place] [address] Basophils/100 WBC (Bld) 0.3 % Normal 0.0-2.0 [facility] Comment on above: Performed By: #### 7 69315476, 0980511, 17475595, 1467823 #### [facility] [address] [place] [address] Eos Absolute 0.2 E9/L Normal 0.0-0.5 [facility] Comment on above: Performed By: #### 7 25395945, 5996785, 10956058, 6386590 #### [facility] [address] [place] [address] Eosinophils/100 WBC (Bld) 1.1 % Normal 0.0-8.0 [facility] Comment on above: Performed By: #### 7 12791316, 9399894, 85666028, 2676704 #### [facility] [address] [place] [address] Erythrocyte distribution width (RBC) [Ratio] 14.6 % High 10.9-14.2 [facility] Comment on above: Performed By: #### 7 76183478, 8992113, 79701059, 8270977 #### [facility] [address] [place] [address] Hematocrit (Bld) [Volume fraction] 40.0 % Normal 34.0-46.0 [facility] Comment on above: Performed By: #### 7 62621346, 8530742, 33657046, 5138197 #### [facility] [address] [place] [address] Hemoglobin (Bld) [Mass/Vol] 12.8 g/dL Normal 12.0-16.0 [facility] Comment on above: Performed By: #### 7 67459978, 5888655, 29825037, 2293971 #### [facility] [address] [place] [address] Lymph Absolute 2.9 E9/L Normal 1.0-4.0 [facility] Comment on above: Performed By: #### 7 74063305, 1838645, 78708399, 5389450 #### [facility] [address] [place] [address] Lymphocytes/100 WBC (Bld) 18.7 % Normal 14.0-50.0 [facility] Comment on above: Performed By: #### 7 08558198, 2744663, 82040939, 2506103 #### [facility] [address] [place] [address] MCH (RBC) [Entitic mass] 30.8 pg Normal 27.0-34.0 [facility] Comment on above: Performed By: #### 7 39849853, 3895170, 19529360, 1903212 #### [facility] [address] [place] [address] MCHC (RBC) [Mass/Vol] 32.4 g/dL Normal 31.4-36.0 [facility] Comment on above: Performed By: #### 7 59640303, 6134295, 24399928, 6752758 #### [facility] [address] [place] [address] MCV (RBC) [Entitic vol] 95.0 fL Normal 80.0-100.0 [facility] Comment on above: Performed By: #### 7 32083395, 1913365, 41716912, 3807819 #### [facility] [address] [place] [address] Comal Absolute 1.1 E9/L High 0.2-1.0 [facility] Comment on above: Performed By: #### 7 59589167, 8780720, 88335018, 8865787 #### [facility] [address] [place] [address] Monocytes/100 WBC (Bld) 6.7 % Normal 4.0-14.0 [facility] Comment on above: Performed By: #### 7 68574489, 3421228, 19279614, 1979648 #### [facility] [address] [place] [address] Neutro Absolute 11.5 E9/L High 2.0-7.5 [facility] Comment on above: Performed By: #### 7 95245214, 1164750, 39193726, 5228306 #### [facility] [address] [place] [address] Neutro Auto 73.2 % Normal 36.0-75.0 [facility] Comment on above: Performed By: #### 7 73126103, 7435635, 60594157, 8502410 #### [facility] [address] [place] [address] Platelet 549.0 E9/L High 150.0-500. 0 [facility] Comment on above: Performed By: #### 7 64142991, 8752801, 42915780, 5725886 #### [facility] [address] [place] [address] Platelet mean volume (Bld) [Entitic vol] 7.7 fL Normal 6.4-10.8 [facility] Comment on above: Performed By: #### 7 35501067, 3686421, 12380140, 1409265 #### [facility] [address] [place] [address] RBC 4.2 E12/L Low 4.3-5.9 [facility] Comment on above: Performed By: #### 7 67190532, 9750305, 64138788, 1694380 #### [facility] [address] [place] [address] WBC 15.7 E9/L High 4.0-11.0 [facility] Comment on above: Performed By: #### 7 86129765, 2127099, 72013414, 5280660 #### [facility] [address] [place] [address] CMPon 10-13-2023 Albumin [Mass/Vol] 3.9 g/dL Normal 3.3-5.0 [facility] Comment on above: Performed By: #### 7 17674160, 0548693, 26398270, 8473247 #### [facility] [address] [place] [address] Albumin/Globulin [Mass ratio] 1.5 {ratio} Normal 1.1-2.2 [facility] Comment on above: Performed By: #### 7 81525857, 4322557, 02370671, 6302992 #### [facility] [address] [place] [address] Alk Phos 82 Int._Unit/L Normal 21-98 [facility] Comment on above: Performed By: #### 7 23517855, 2689007, 52336828, 2631131 #### [facility] [address] [place] [address] ALT 15 Int._Unit/L Normal 6-46 [facility] Comment on above: Performed By: #### 7 87335392, 1002763, 91162515, 4476249 #### [facility] [address] [place] [address] Anion gap [Moles/Vol] 17 mmol/L High 6-16 [facility] Comment on above: Performed By: #### 7 57554413, 1424156, 34706528, 7679876 #### [facility] [address] [place] [address] AST 9 Int._Unit/L Normal 5-43 [facility] Comment on above: Performed By: #### 7 58513414, 9566558, 71150935, 5693106 #### [facility] [address] [place] [address] Bili Total 0.3 mg/dL Normal 0.0-1.1 [facility] Comment on above: Performed By: #### 7 93168744, 9324588, 90223023, 2754440 #### [facility] [address] [place] [address] BUN/Creat Ratio 15 No Units Normal 10-20 [facility] Comment on above: Performed By: #### 7 22222636, 6506392, 35766121, 1201067 #### [facility] [address] [place] [address] Calcium [Mass/Vol] 9.1 mg/dL Normal 8.9-11.1 [facility] Comment on above: Performed By: #### 7 00159268, 2534128, 44865158, 1712088 #### [facility] [address] [place] [address] Chloride [Moles/Vol] 102 mmol/L Normal 101-111 [facility] Comment on above: Performed By: #### 7 54683833, 4500664, 36014669, 9919641 #### [facility] [address] [place] [address] CO2 [Moles/Vol] 21 mmol/L Normal 21-31 [facility] Comment on above: Performed By: #### 7 49170216, 4585872, 61950636, 9485115 #### [facility] [address] [place] [address] Creatinine [Mass/Vol] 2.1 mg/dL High 0.5-1.3 [facility] Comment on above: Performed By: #### 7 58198389, 2255438, 98525759, 3439134 #### [facility] [address] [place] [address] Globulin (S) [Mass/Vol] 2.6 g/dL Normal 1.4-4.0 [facility] Comment on above: Performed By: #### 7 94911666, 9020621, 62683216, 7085270 #### [facility] [address] [place] [address] Glucose [Mass/Vol] 92 mg/dL Normal 55-199 [facility] Comment on above: Performed By: #### 7 50040756, 9181239, 04337139, 3668044 #### [facility] [address] [place] [address] Potassium [Moles/Vol] 4.6 mmol/L Normal 3.5-5.3 [facility] Comment on above: Performed By: #### 7 88070592, 3155003, 58733175, 9926343 #### [facility] [address] [place] [address] Protein [Mass/Vol] 6.5 g/dL Normal 6.0-7.8 [facility] Comment on above: Performed By: #### 7 05496493, 5334604, 03412476, 3860518 #### [facility] [address] [place] [address] Sodium [Moles/Vol] 135 mmol/L Normal 135-145 [facility] Comment on above: Performed By: #### 7 45918534, 3969993, 78570277, 8226112 #### [facility] [address] [place] [address] Urea nitrogen [Mass/Vol] 31 mg/dL High 5-21 [facility] Comment on above: Performed By: #### 7 95261584, 1491310, 75804331, 9699654 #### [facility] [address] [place] [address] Physician Orderon 10-13-2023 Physician Order [id number] Normal [facility] eGFRon 10-13-2023 eGFR 28 mL/min/1.73 m2 Low >=59 [facility] Comment on above: Order Comment: Order added by Discern Expert. Performed By: #### 7 77180275, 6662253, 20643979, 7625902 #### [facility] [address] [place] [address] MR lumbar spine wo conon MR lumbar spine wo [facility] [address] [address] MRI Report Signed Patient: Joselito Vidal MR#: [id number] : 1970 Acct:[id number] Age/Sex: 52 / F ADM Date: 06/18/23 Loc: MR Room: Type: [facility] Attending Dr: Dario Palacios DO Copies to: [...] Arianna Urena M.D.06/18/2023 8:28 PM Dictation Location: [place] [address] Transcribed By: [facility] 06/18/232027 Dictated By: Arianna Urena MD 06/18/232010 Signed By: 06/18/232027 [facility] XR hip RT min 2V(w/wo pelvis )*on 11-07-2022 XR hip RT min 2V(w/wo pelvis)* [facility] [address] Other XR hip RT min 2V(w/wo pelvis)* [facility] [place] [employer] Other XR hip RT min 2V(w/wo pelvis)* [address] [facility] [employer] Other XR hip RT min 2V(w/wo pelvis)* [place] [address] [employer] Other XR hip RT min 2V(w/wo pelvis)* XRay Report [employer] Other XR hip RT min 2V(w/wo pelvis)* Signed [employer] Other XR hip RT min 2V(w/wo pelvis)* Patient: Joselito Vidal MR#: [id number] [employer] Other XR hip RT min 2V(w/wo pelvis)* 3646 [employer] Other XR hip RT min 2V(w/wo pelvis)* : 1970 Acct:[id number] [employer] Other XR hip RT min 2V(w/wo pelvis)* Age/Sex: 51 / F ADM Date: 11/07/22 [employer] Other XR hip RT min 2V(w/wo pelvis)* Loc: XDUCLY [facility] [employer] Other XR hip RT min 2V(w/wo pelvis)* Attending Dr: Ellie AYALA [employer] Other XR hip RT min 2V(w/wo pelvis)* Copies to: ELLIE INGRAM [employer] Other XR hip RT min 2V(w/wo pelvis)* Ordering Provider: ELLIE INGRAM [employer] Other XR hip RT min 2V(w/wo pelvis)* Date of Service: 11/07/22 [employer] Other XR hip RT min 2V(w/wo pelvis)* XR/XR hip RT min 2V(w/wo pelvis)*: Right hip pain [employer] Other XR hip RT min 2V(w/wo pelvis)* Single view pelvis and 2 views of the right hip plain film [employer] Other XR hip RT min 2V(w/wo pelvis)* COMPARISON:None [employer] Other XR hip RT min 2V(w/wo pelvis)* HISTORY:Right hip pain for one year. [employer] Other XR hip RT min 2V(w/wo pelvis)* ACUTE FINDINGS:None [employer] Other XR hip RT min 2V(w/wo pelvis)* DEGENERATIVE CHANGE:Unremarkable [employer] Other XR hip RT min 2V(w/wo pelvis)* SOFT TISSUE FINDINGS:Unremarkable [employer] Other XR hip RT min 2V(w/wo pelvis)* JOINT EFFUSION:None [employer] Other XR hip RT min 2V(w/wo pelvis)* POSTOP CHANGES:None [employer] Other XR hip RT min 2V(w/wo pelvis)* BONY MINERALIZATION:Adequate [employer] Other XR hip RT min 2V(w/wo pelvis)* XR/XR hip RT min 2V(w/wo pelvis)* [employer] Other XR hip RT min 2V(w/wo pelvis)* IMPRESSION:Unremarkable exam [employer] Other XR hip RT min 2V(w/wo pelvis)* Impression dictated by: Juan Adair M.D.11/07/2022 11:54 AM [employer] Other XR hip RT min 2V(w/wo pelvis)* Dictation Location: [place] [address] [employer] Other XR hip RT min 2V(w/wo pelvis)* Transcribed By: PWS 11/07/22 [facility] [employer] Other XR hip RT min 2V(w/wo pelvis)* Dictated By: Juan Adair DO 11/07/22 [facility] [employer] Other XR hip RT min 2V(w/wo pelvis)* Signed By: [employer] Other XR hip RT min 2V(w/wo pelvis)* 11/07/22 [facility] [employer] Other XR knee RT 4V*on 11-03-2022 XR knee RT 4V* [facility] [address] Other XR knee RT 4V* [facility] [place] [facility] [address] Other XR knee RT 4V* [address] [place] [address] [address] Other XR knee RT 4V* [place] [address] No rt [address] Other XR knee RT 4V* XRay Report [employer] Other XR knee RT 4V* Signed [employer] Other XR knee RT 4V* Patient: Genevieve Vidal MR#: [id number] [employer] Other XR knee RT 4V* 3649 [employer] Other XR knee RT 4V* : 1970 Acct:[id number] [employer] Other XR knee RT 4V* Age/Sex: 51 / F ADM Date: 11/03/22 [employer] Other XR knee RT 4V* Loc: XDUCLY Room: pe: REG CLI [employer] Other XR knee RT 4V* Attending Dr: Susana LIZ [employer] Other XR knee RT 4V* Copies to: AGUSTO Aviles [employer] Other XR knee RT 4V* Ordering Provider: AGUSTO Hernández [employer] Other XR knee RT 4V* Date of Service: 11/03/22 [employer] Other XR knee RT 4V* XR/XR knee RT 4V*: Acute pain of right knee [employer] Other XR knee RT 4V* RIGHT KNEE - 4 views [employer] Other XR knee RT 4V* CLINICAL HISTORY: Ri ght knee pain for the past 2 weeks. No recent injury. [employer] Other XR knee RT 4V* COMPARISON: None [employer] Other XR knee RT 4V* AP, lateral and both oblique views were obtained. There is no evidence of fracture or dislocation. [employer] Other XR knee RT 4V* No disproportionate joint space narrowing is present. There is minimal marginal spurring. Fluid [employer] Other XR knee RT 4V* is present at the suprapatellar bursa. [employer] Other XR knee RT 4V* X R/XR knee RT 4V* [employer] Other XR knee RT 4V* IMPRESSION: [employer] Other XR knee RT 4V* MINOR DEGENERATIVE CHANGE. [employer] Other XR knee RT 4V* JOINT EFFUSION. [employer] Other XR knee RT 4V* NO ACUTE BONY FINDINGS. [employer] Other XR knee RT 4V* Impression dictated by: Arianna Urena M.D.11/03/2022 2:56 PM [employer] Other XR knee RT 4V* Dictation Location: [place] [address] [employer] Other XR knee RT 4V* Transcribed By: SUKHDEV 11/03/22 [facility] [employer] Other XR knee RT 4V* Dictated By: Arianna Urena MD 11/03/22 [facility] [employer] Other XR knee RT 4V* Signed By: [employer] Other XR knee RT 4V* 11/03/22 [facility] [employer] Other Albumin [Mass/volume] in Ser um or PlasmaOrdered By: PROVIDER TEMP on 10-08-2022 Albumin [Mass/Vol] 3.5 g/dL 3.2-5.5 [facility] Basophils Auto (Bld) [#/Vol] Ordered By: PROVIDER TEMP on 10-08-2022 Basophils (Bld) [#/Vol] 0.1 10*3/uL 0.0-0.2 [facility] Basophils/100 WBC Auto (Bld) Ordered By: PROVIDER TEMP on 10-08-2022 Basophils/100 WBC (Bld) 0.6 % . [facility] Creatine kinase [Enzymatic a ctivity/volume] in Serum or PlasmaOrdered By: PROVIDER TEMP on 10-08-2022 CK [Catalytic activity/Vol] 65 U/L 22-269 [facility] Creatinine and Glomerular fi ltration rate.predicted panel (S/P/Bld)Ordered By: PROVIDER TEMP on 10-08-2022 Creatinine [Mass/Vol] 0.89 mg/dL 0.44-1.03 [facility] Eosinophils Auto (Bld) [#/Vo l]Ordered By: PROVIDER TEMP on 10-08-2022 Eosinophils (Bld) [#/Vol] 0.2 10*3/uL 0.0-0.45 [facility] Eosinophils/100 WBC Auto (Bl d)Ordered By: PROVIDER TEMP on 10-08-2022 Eosinophils/100 WBC (Bld) 1.0 % . [facility] Erythrocyte distribution wid th Auto (RBC) [Ratio]Ordered By: PROVIDER TEMP on 10-08-2022 Erythrocyte distribution width (RBC) [Ratio] 13.9 % 11.9-15.3 [facility] Estimated glomerular filtrat ion rate (GFR) non- AmericanOrdered By: PROVIDER TEMP on 10-08-2022 GFR/1.73 sq M.predicted among non-blacks MDRD (S/P/Bld) [Vol rate/Area] > 60 mL/Min [facility] Globulin Calc (S) [Mass/Vol] Ordered By: PROVIDER TEMP on 10-08-2022 Globulin (S) [Mass/Vol] 3.1 g/dL [facility] Hematocrit Auto (Bld) [Volum e fraction]Ordered By: PROVIDER TEMP on 10-08-2022 Hematocrit (Bld) [Volume fraction] 45.1 % 34.0-46.4 [facility] Hemoglobin [Mass/volume] in BloodOrdered By: PROVIDER TEMP on 10-08-2022 Hemoglobin (Bld) [Mass/Vol] 14.9 g/dL 11.8-15.4 [facility] Laboratory - Chemistry and C hemistry - challengeOrdered By: Edie Bolton on 10-08-2022 Natriuretic peptide B (Bld) [Mass/Vol] 15.0 pg/mL 5-100 [facility] Leukocytes [#/volume] correc aleksey for nucleated erythrocytes in Blood by Automated counOrdered By: PROVIDER TEMP on 10-08-2022 WBC corrected for nucl RBC Auto (Bld) [#/Vol] 15.5 10*3/uL 3.8-11.6 [facility] Lymphocytes Auto (Bld) [#/Vo l]Ordered By: PROVIDER TEMP on 10-08-2022 Lymphocytes (Bld) [#/Vol] 4.6 10*3/uL 1.00-4.8 [facility] Lymphocytes/100 WBC Auto (Bl d)Ordered By: PROVIDER TEMP on 10-08-2022 Lymphocytes/100 WBC (Bld) 29.9 % . [facility] MCH Auto (RBC) [Entitic mass ]Ordered By: PROVIDER TEMP on 10-08-2022 MCH (RBC) [Entitic mass] 30.8 pg 24.7-34.3 [facility] MCHC Auto (RBC) [Mass/Vol]Or dered By: PROVIDER TEMP on 10-08-2022 MCHC (RBC) [Mass/Vol] 33.0 g/dL 32.0-35.0 [facility] MCV Auto (RBC) [Entitic vol] Ordered By: PROVIDER TEMP on 10-08-2022 MCV (RBC) [Entitic vol] 93.5 fL 80-100 [facility] Monocyte distribution width [Entitic volume] in Blood by AutomatedOrdered By: PROVIDER TEMP on 10-08-2022 Monocyte distribution width Auto (Bld) [Entitic vol] 15.04 % 0.00-20.00 [facility] Monocytes Auto (Bld) [#/Vol] Ordered By: PROVIDER TEMP on 10-08-2022 Monocytes (Bld) [#/Vol] 1.1 10*3/uL 0.0-0.8 [facility] Monocytes/100 WBC Auto (Bld) Ordered By: PROVIDER TEMP on 10-08-2022 Monocytes/100 WBC (Bld) 7.1 % . [facility] Neutrophils Auto (Bld) [#/Vo l]Ordered By: PROVIDER TEMP on 10-08-2022 Neutrophils (Bld) [#/Vol] 9.5 10*3/uL 1.8-7.7 [facility] Neutrophils/100 WBC Auto (Bl d)Ordered By: PROVIDER TEMP on 10-08-2022 Neutrophils/100 WBC (Bld) 61.4 % . [facility] No Panel InformationOrdered By: PROVIDER TEMP on 10-08-2022 Estimated GFR () > 60 mL/Min [facility] Comment on above: GFR estimated refere nce range: According to KDOQI guidelines, <60 ml/min/1.73m2 is sufficient to diagnose a patient with chronic kidney disease. Pharmacy Creatinine Clearance (Chem 91.28 [facility] Nucleated erythrocytes [Pres ence] in Blood by Automated countOrdered By: PROVIDER TEMP on 10-08-2022 Nucleated RBC Auto Ql (Bld) 0.1 /100{WBC} 0-0.5 [facility] Platelet mean volume Auto (B ld) [Entitic vol]Ordered By: PROVIDER TEMP on 10-08-2022 Platelet mean volume (Bld) [Entitic vol] 7.1 fL 6.3-10.7 [facility] Platelets Auto (Bld) [#/Vol] Ordered By: PROVIDER TEMP on 10-08-2022 Platelets (Bld) [#/Vol] 357 10*3/uL 150-450 [facility] Protein [Mass/volume] in Ser um or PlasmaOrdered By: PROVIDER TEMP on 10-08-2022 Protein [Mass/Vol] 6.6 g/dL 6.1-7.9 [facility] RBC Auto (Bld) [#/Vol]Ordere d By: PROVIDER TEMP on 10-08-2022 RBC (Bld) [#/Vol] 4.83 10*6/uL 3.60-5.00 [facility] Serum or plasma alanine blanco otransferase measurement without P-5'-P (enzymatic activiOrdered By: PROVIDER TEMP on 10-08-2022 ALT No additional P-5'-P [Catalytic activity/Vol] 22 U/L 10-60 [facility] Serum or plasma albumin/glob ulin mass ratioOrdered By: PROVIDER TEMP on 10-08-2022 Albumin/Globulin [Mass ratio] 1.1 {ratio} [facility] Serum or plasma alkaline shyla sphatase measurement (enzymatic activity/volume)Ordered By: PROVIDER TEMP on 10-08-2022 ALP [Catalytic activity/Vol] 76 U/L 32-92 [facility] Serum or plasma anion gap de terminationOrdered By: PROVIDER TEMP on 10-08-2022 Anion gap [Moles/Vol] 10.6 mmol/L 6.0-15.0 [facility] Serum or plasma aspartate am inotransferase measurement (enzymatic activity/volume)Ordered By: PROVIDER TEMP on 10-08-2022 AST [Catalytic activity/Vol] 14 U/L 10-42 [facility] Serum or plasma calcium rocío urement (mass/volume)Ordered By: PROVIDER TEMP on 10-08-2022 Calcium [Mass/Vol] 8.5 mg/dL 8.2-10.2 [facility] Serum or plasma chloride martin surement (moles/volume)Ordered By: PROVIDER TEMP on 10-08-2022 Chloride [Moles/Vol] 101 mmol/L 95-114 [facility] Serum or plasma creatine kin ase MB (CKMB)/total creatine kinase (CK) ratio by calculaOrdered By: PROVIDER TEMP on 10-08-2022 CK.MB Calc [Catalytic fraction] 1.8 % 0.00-2.50 [facility] Serum or plasma creatine kin ase MB measurement (mass/volume)Ordered By: PROVIDER TEMP on 10-08-2022 CK.MB [Mass/Vol] 1.2 ng/mL 0.6-6.3 [facility] Serum or plasma glucose rocío urement (mass/volume)Ordered By: PROVIDER TEMP on 10-08-2022 Glucose [Mass/Vol] 112 mg/dL 70-100 [facility] Comment on above: ADA recommended refe rence rangeRandom Glucose Reference Range is dependent on time and content of last meal. Glucose of more than 200 mg/dL in a nonstressed, ambulatory subject supports the diagnosis of Diabetes Mellitus. Serum or plasma potassium me asurement (moles/volume)Ordered By: PROVIDER TEMP on 10-08-2022 Potassium [Moles/Vol] 3.4 mmol/L 3.5-5.1 [facility] Serum or plasma sodium measu rement (moles/volume)Ordered By: PROVIDER TEMP on 10-08-2022 Sodium [Moles/Vol] 135 mmol/L 136-146 [facility] Serum or plasma total biliru bin measurement (mass/volume)Ordered By: PROVIDER TEMP on 10-08-2022 Bilirubin [Mass/Vol] 0.5 mg/dL 0.3-1.2 [facility] Serum or plasma total carbon dioxide measurement (moles/volume)Ordered By: PROVIDER TEMP on 10-08-2022 CO2 [Moles/Vol] 26.8 mmol/L 22.0-30.0 [facility] Serum or plasma urea nitroge n measurement (mass/volume)Ordered By: PROVIDER TEMP on 10-08-2022 Urea nitrogen [Mass/Vol] 13 mg/dL 9- [facility] Troponin I.cardiac [Mass/vol ume] in Serum or Plasma by High sensitivity methodOrdered By: PROVIDER TEMP on 10-08-2022 Troponin I.cardiac High sensitivity method [Mass/Vol] 3 pg/mL 0-15 [facility] WBC Auto (Bld) [#/Vol]Ordere d By: PROVIDER TEMP on 10-08-2022 WBC (Bld) [#/Vol] 15.5 10*3/uL 3.8-11.6 [facility] XR chest 2V*on 10-01-2022 XR chest 2V* [facility] [employer] Other XR chest 2V* [facility] [employer] Other XR chest 2V* [facility] [facility] [employer] Other XR chest 2V* [place] [address] [facility] [address] Other XR chest 2V* XRay Report [place] [address] Other XR chest 2V* Signed [employer] Other XR chest 2V* Patient: Genevieve Vidal MR#: [id number] [facility] [employer] Other XR chest 2V* [address] [place] [address] Other XR chest 2V* : 1970 Acct:[id number] [employer] Other XR chest 2V* Age/Sex: 51 / F ADM Date: 10/01/22 [employer] Other XR chest 2V* Loc: XDCLY [facility]: [facility] [employer] Other XR chest 2V* Attending Dr: Emery Ingram [facility] [employer] Other XR chest 2V* Copies to: ELLIE INGRAM [facility] [employer] Other XR chest 2V* Ordering Provider: ELLIE INGRAM [facility] [employer] Other XR chest 2V* Date of Service: 10/01/22 [employer] Other XR chest 2V* XR/XR chest 2V*: COUGH [employer] Other XR chest 2V* Chest 2 views [employer] [facility] [employer] Other XR chest 2V* CLINICAL HISTORY: Dr arteaga cough, hoarseness, shortness of breath, wheezing, upper middle back pain for 3 [employer] Other XR chest 2V* weeks. [employer] Other XR chest 2V* COMPARISON: None [employer] Other XR chest 2V* FINDINGS: [employer] Other XR chest 2V* Heart normal in size . Mild left lower lobe linear atelectasis/scarring. No consolidation [employer] Other XR chest 2V* pneumothorax pleural effusion or free air. [employer] Other XR chest 2V* X R/XR chest 2V* [employer] Other XR chest 2V* IMPRESSION: [employer] Other XR chest 2V* MILD LEFT LOWER LOBE LINEAR ATELECTASIS/SCARRING. NO CONSOLIDATION TO SUGGEST PNEUMONIA. [employer] Other XR chest 2V* Impression dictated by: Brice Taylor Jr., D.O.10/01/2022 3:33 PM [employer] Other XR chest 2V* Dictation Location: RADIO-PC-14 [employer] Other XR chest 2V* Transcribed By: PWS 10/01/22 [facility] [employer] Other XR chest 2V* Dictated By: Brice Taylor Jr, DO 10/01/22 [facility] [employer] Other XR chest 2V* Signed By: [employer] Other XR chest 2V* 10/01/22 [facility] [employer] Other A1C HEMOGLOBINon 09-30-2022 HbA1c (Bld) [Mass fraction] 6.1 % [employer] Other HbA1c (Bld) [Mass fraction]o n 09-30-2022 A1C HEMOGLOBIN [employer] Other PROF CHEM 8 (BAS METB)on Anion gap [Moles/Vol] 17.9 mmol/L Normal [facility] Comment on above: Performed By: #### B MP #### [facility] [address] [place] [address] [address] Isabel Wolfe Calcium [Mass/Vol] 9.1 mg/dL Normal 8.5-10.1 [facility] Comment on above: Performed By: #### B MP #### [facility] [address] [address] [address] Isabel Wolfe Chloride [Moles/Vol] 103 mmol/L Normal 98-107 [facility] Comment on above: Performed By: #### B MP #### [facility] [address] [address] [address] Isabel Wolfe CO2 [Moles/Vol] 22.9 mmol/L Normal 21.0-32.0 [facility] Comment on above: Performed By: #### B MP #### [facility] [address] [address] [address] Isabel Wolfe Creatinine [Mass/Vol] 0.92 mg/dL Normal 0.55-1.02 [facility] Comment on above: Performed By: #### B MP #### [facility] [address] [address] [address] Isabel Wolfe EGFR-AF BAHAMIAN >60 Normal >=60 [facility] Comment on above: Performed By: #### B MP #### [facility] [address] [address] [address] Isabel Wolfe EGFR-NON AF BAHAMIAN >60 Normal >=60 [facility] Comment on above: Performed By: #### B MP #### [facility] [address] [address] [address] Isabel Wolfe Glucose [Mass/Vol] 178 mg/dL Critically high 74-106 [facility] Comment on above: Performed By: #### B MP #### [facility] [address] [address] [address] Isabel Wolfe Potassium [Moles/Vol] 3.8 mmol/L Normal 3.5-5.1 [facility] Comment on above: Performed By: #### B MP #### [facility] [address] [address] [address] Isabel Wolfe Sodium [Moles/Vol] 140 mmol/L Normal 136-145 [facility] Comment on above: Performed By: #### B MP #### [facility] [address] [address] [address] Isabel Wolfe Urea nitrogen [Mass/Vol] 11.0 mg/dL Normal 7.0-18.0 [facility] Comment on above: Performed By: #### B MP #### [facility] [address] [address] [address] Isabel Wolfe Urea nitrogen/Creatinine [Mass ratio] 12.0 mg/mg Normal [facility] Comment on above: Performed By: #### B MP #### [facility] [address] [address] [address] Isabel Wolfe COVID + FLU Quick Testingon 09-20-2022 SARS-CoV-2 (COVID-19) RNA PIPER+probe Ql (Unsp spec) Negative [employer] Other COVID + FLU Quick Testing Negative [employer] Other Quick Strepon 09-20-2022 S. pyogenes Org specific cx Ql (Throat) Negative [employer] Other Quick Strep [employer] Other Automated erythrocytes count in urine sediment (number/area)Ordered By: Reinaldo Mehta on 09-10-2022 RBC Auto (Urine sed) [#/Area] 1-2 [HPF] 0-4 [facility] Automated leukocytes count i n urine sediment (number/area)Ordered By: Reinaldo Mehta on 09-10-2022 WBC Auto (Urine sed) [#/Area] 3-4 [HPF] 0-4 [facility] Basophils Auto (Bld) [#/Vol] Ordered By: Reinaldo Mehta on 09-10-2022 Basophils (Bld) [#/Vol] 0.1 10*3/uL 0.0-0.2 [facility] Basophils/100 WBC Auto (Bld) Ordered By: Reinaldo Mehta on 09-10-2022 Basophils/100 WBC (Bld) 0.6 % . [facility] Bilirubin Test strip Ql (U)O rdered By: Reinaldo Mehta on 09-10-2022 Bilirubin Ql (U) Negative Negative [facility] Body fluid albumin measureme nt (mass/volume)Ordered By: Reinaldo Mehta on 09-10-2022 Albumin (Body fld) [Mass/Vol] 3.6 g/dL 3.2-5.5 [facility] Color Auto (U)Ordered By: Shady Mehta on 09-10-2022 Color (U) Yellow Yellow [facility] Creatinine and Glomerular fi ltration rate.predicted panel (S/P/Bld)Ordered By: Reinaldo Mehta on 09-10-2022 Creatinine [Mass/Vol] 0.84 mg/dL 0.44-1.03 [facility] Direct bilirubin measurement Ordered By: Reinaldo Mehta on 09-10-2022 Bilirubin.direct [Mass/Vol] 0.1 mg/dL 0.0-0.4 [facility] Eosinophils Auto (Bld) [#/Vo l]Ordered By: Reinaldo Mehta on 09-10-2022 Eosinophils (Bld) [#/Vol] 0.2 10*3/uL 0.0-0.45 [facility] Eosinophils/100 WBC Auto (Bl d)Ordered By: Reinaldo Mehta on 09-10-2022 Eosinophils/100 WBC (Bld) 1.6 % . [facility] Erythrocyte distribution wid th Auto (RBC) [Ratio]Ordered By: Reinaldo Mehta on 09-10-2022 Erythrocyte distribution width (RBC) [Ratio] 13.6 % 11.9-15.3 [facility] Estimated glomerular filtrat ion rate (GFR) non- AmericanOrdered By: Reinaldo Mehta on 09-10-2022 GFR/1.73 sq M.predicted among non-blacks MDRD (S/P/Bld) [Vol rate/Area] > 60 mL/Min [facility] Globulin Calc (S) [Mass/Vol] Ordered By: Reinaldo Mehta on 09-10-2022 Globulin (S) [Mass/Vol] 3.1 g/dL [facility] Hematocrit Auto (Bld) [Volum e fraction]Ordered By: Reinaldo Mehta on 09-10-2022 Hematocrit (Bld) [Volume fraction] 40.7 % 34.0-46.4 [facility] Hemoglobin [Mass/volume] in BloodOrdered By: Reinaldo Mehta on 09-10-2022 Hemoglobin (Bld) [Mass/Vol] 13.5 g/dL 11.8-15.4 [facility] Ketones Auto test strip (U) [Mass/Vol]Ordered By: Reinaldo Mehta on 09-10-2022 Ketones (U) [Mass/Vol] Trace Negative [facility] - Chemistry and C hemistry - challengeOrdered By: Reinaldo Mehta on 09-10-2022 Lipase [Catalytic activity/Vol] 41.0 U/L 22-51 [facility] - CoagulationOrde red By: Reinaldo Mehta on 09-10-2022 PT Coag (PPP) [Time] 13.6 s 9.0-12.9 [facility] - UrinalysisOrder ed By: Reinaldo Mehta on 09-10-2022 Hyaline casts LM Ql (Urine sed) 0-8 [LPF] 0-8 [facility] Leukocytes [#/volume] correc aleksey for nucleated erythrocytes in Blood by Automated counOrdered By: Reinaldo Mehta on 09-10-2022 WBC corrected for nucl RBC Auto (Bld) [#/Vol] 11.7 10*3/uL 3.8-11.6 [facility] Lymphocytes Auto (Bld) [#/Vo l]Ordered By: Reinaldo Mehta on 09-10-2022 Lymphocytes (Bld) [#/Vol] 3.5 10*3/uL 1.00-4.8 [facility] Lymphocytes/100 WBC Auto (Bl d)Ordered By: Reinaldo Mehta on 09-10-2022 Lymphocytes/100 WBC (Bld) 29.7 % . [facility] MCH Auto (RBC) [Entitic mass ]Ordered By: Reinaldo Mehta on 09-10-2022 MCH (RBC) [Entitic mass] 30.5 pg 24.7-34.3 [facility] MCHC Auto (RBC) [Mass/Vol]Or dered By: Reinaldo Mehta on 09-10-2022 MCHC (RBC) [Mass/Vol] 33.2 g/dL 32.0-35.0 [facility] MCV Auto (RBC) [Entitic vol] Ordered By: Reinaldo Mehta on 09-10-2022 MCV (RBC) [Entitic vol] 91.9 fL 80-100 [facility] Monocyte distribution width [Entitic volume] in Blood by AutomatedOrdered By: Reinaldo Mehta on 09-10-2022 Monocyte distribution width Auto (Bld) [Entitic vol] 18.22 % 0.00-20.00 [facility] Monocytes Auto (Bld) [#/Vol] Ordered By: Reinaldo Mehta on 09-10-2022 Monocytes (Bld) [#/Vol] 0.8 10*3/uL 0.0-0.8 [facility] Monocytes/100 WBC Auto (Bld) Ordered By: Reinaldo Mehta on 09-10-2022 Monocytes/100 WBC (Bld) 6.7 % . [facility] Neutrophils Auto (Bld) [#/Vo l]Ordered By: Reinaldo Mehta on 09-10-2022 Neutrophils (Bld) [#/Vol] 7.2 10*3/uL 1.8-7.7 [facility] Neutrophils/100 WBC Auto (Bl d)Ordered By: Reinaldo Mehta on 09-10-2022 Neutrophils/100 WBC (Bld) 61.4 % . [facility] Nitrite Test strip Ql (U)Ord ered By: Reinaldo Mehta on 09-10-2022 Nitrite Ql (U) Negative Negative [facility] No Panel InformationOrdered By: Reinaldo Mehta on 09-10-2022 Estimated GFR () > 60 mL/Min [facility] Comment on above: GFR estimated refere nce range: According to KDOQI guidelines, <60 ml/min/1.73m2 is sufficient to diagnose a patient with chronic kidney disease. Pharmacy Creatinine Clearance (Chem 101.87 [facility] Nucleated erythrocytes [Pres ence] in Blood by Automated countOrdered By: Reinaldo Mehta on 09-10-2022 Nucleated RBC Auto Ql (Bld) 0.0 /100{WBC} 0-0.5 [facility] Platelet mean volume Auto (B ld) [Entitic vol]Ordered By: Reinaldo Mehta on 09-10-2022 Platelet mean volume (Bld) [Entitic vol] 7.7 fL 6.3-10.7 [facility] Platelet poor plasma interna tional normalized ratio (INR) by coagulation assay (relatOrdered By: Reinaldo Mehta on 09-10-2022 INR Coag (PPP) [Relative time] 1.2 {INR} [facility] Comment on above: INR Therapeutic Rang [...] 09-10-2022 Platelets (Bld) [#/Vol] 367 10*3/uL 150-450 [facility] Protein Auto test strip (U) [Mass/Vol]Ordered By: Reinaldo Mehta on 09-10-2022 Protein (U) [Mass/Vol] Trace mg/dL Negative [facility] Protein [Mass/volume] in Ser um or PlasmaOrdered By: Reinaldo Mehta on 09-10-2022 Protein [Mass/Vol] 6.7 g/dL 6.1-7.9 [facility] RBC Auto (Bld) [#/Vol]Ordere d By: Reinaldo Mehta on 09-10-2022 RBC (Bld) [#/Vol] 4.42 10*6/uL 3.60-5.00 [facility] [facility] Serum or plasma alanine blanco otransferase measurement without P-5'-P (enzymatic activiOrdered By: Reinaldo Mehta on 09-10-2022 ALT No additional P-5'-P [Catalytic activity/Vol] 16 U/L 10-60 [facility] Serum or plasma albumin/glob ulin mass ratioOrdered By: Reinaldo Mehta on 09-10-2022 Albumin/Globulin [Mass ratio] 1.2 {ratio} [facility] Serum or plasma alkaline shyla sphatase measurement (enzymatic activity/volume)Ordered By: Reinaldo Mehta on 09-10-2022 ALP [Catalytic activity/Vol] 89 U/L 32-92 [facility] Serum or plasma anion gap de terminationOrdered By: Reinaldo Mehta on 09-10-2022 Anion gap [Moles/Vol] 15.1 mmol/L 6.0-15.0 [facility] Serum or plasma aspartate am inotransferase measurement (enzymatic activity/volume)Ordered By: Reinaldo Mehta on 09-10-2022 AST [Catalytic activity/Vol] 15 U/L 10-42 [facility] Serum or plasma calcium rocío urement (mass/volume)Ordered By: Reinaldo Mehta on 09-10-2022 Calcium [Mass/Vol] 9.2 mg/dL 8.2-10.2 [facility] Serum or plasma chloride martin surement (moles/volume)Ordered By: Reinaldo Mehta on 09-10-2022 Chloride [Moles/Vol] 101 mmol/L 95-114 [facility] Serum or plasma glucose rocío urement (mass/volume)Ordered By: Reinaldo Mehta on 09-10-2022 Glucose [Mass/Vol] 91 mg/dL 70-100 [facility] Comment on above: ADA recommended refe rence rangeRandom Glucose Reference Range is dependent on time and content of last meal. Glucose of more than 200 mg/dL in a nonstressed, ambulatory subject supports the diagnosis of Diabetes Mellitus. Serum or plasma non-glucuron idated bilirubin measurement (mass/volume)Ordered By: Reinaldo Mehta on 09-10-2022 Bilirubin.indirect [Mass/Vol] 0.4 mg/dL [facility] Serum or plasma potassium me asurement (moles/volume)Ordered By: Reinaldo Mehta on 09-10-2022 Potassium [Moles/Vol] 2.9 mmol/L 3.5-5.1 [facility] Comment on above: Results calledat 192 1 on 09/10/22 Serum or plasma sodium measu rement (moles/volume)Ordered By: Reinaldo Mehta on 09-10-2022 Sodium [Moles/Vol] 137 mmol/L 136-146 [facility] Serum or plasma total biliru bin measurement (mass/volume)Ordered By: Reinaldo Mehta on 09-10-2022 Bilirubin [Mass/Vol] 0.5 mg/dL 0.3-1.2 [facility] Serum or plasma total carbon dioxide measurement (moles/volume)Ordered By: Reinaldo Mehta on 09-10-2022 CO2 [Moles/Vol] 23.8 mmol/L 22.0-30.0 [facility] Serum or plasma urea nitroge n measurement (mass/volume)Ordered By: Reinaldo Mehta on 09-10-2022 Urea nitrogen [Mass/Vol] 10 mg/dL - [facility] Specific gravity Auto test s trip (U) [Rel density]Ordered By: Reinaldo Mehta on 09-10-2022 Specific gravity (U) [Rel density] 1.025 1.001-1.[address] [facility] Squamous epithelial cells de tection in urine sediment by light microscopyOrdered By: Reinaldo Mehta on 09-10-2022 Epithelial cells.squamous LM Ql (Urine sed) 1-2 [HPF] 0-2 [facility] Urine bacteria detection by automated methodOrdered By: Reinaldo Mehta on 09-10-2022 Bacteria Auto Ql (U) None seen None Seen [facility] Urine clarity by refractomet ry automatedOrdered By: Reinaldo Mehta on 09-10-2022 Clarity Refractometry automated (U) Clear Clear [facility] Urine glucose measurement by automated test strip (mass/volume)Ordered By: Reinaldo Mehta on 09-10-2022 Glucose Auto test strip (U) [Mass/Vol] Normal mg/dL Normal [facility] Urine hemoglobin detection b y automated test stripOrdered By: Reinaldo Mehta on 09-10-2022 Hemoglobin Auto test strip Ql (U) Negative Negative [facility] Urine leukocyte esterase det ection by automated test stripOrdered By: Reinaldo Mehta on 09-10-2022 Leukocyte esterase Auto test strip Ql (U) 1+ Negative [facility] Urobilinogen Auto test strip (U) [Mass/Vol]Ordered By: Reinaldo Mehta on 09-10-2022 Urobilinogen (U) [Mass/Vol] Normal mg/dL Normal [facility] WBC Auto (Bld) [#/Vol]Ordere d By: Reinaldo Mehta on 09-10-2022 WBC (Bld) [#/Vol] 11.7 10*3/uL 3.8-11.6 [facility] pH Auto test strip (U)Ordere d By: Reinaldo Mehta on 09-10-2022 pH (U) 6.0 [pH] 5.0-9.0 [facility] COVID/FLU RT-PCRon 2 SARS-CoV-2 (COVID-19) RNA PIPER+probe Ql (Unsp spec) Negative [employer] Other COVID/FLU RT-PCR Negative [employer] Other Quick Strepon 07-02-2022 S. pyogenes Org specific cx Ql (Throat) Negative [facility] [employer] Other Quick Strep [facility] [employer] Other FREE T4on 06-05-2022 Free T4 [Mass/Vol] 0.77 ng/dL Normal 0.76-1.46 [facility] Comment on above: Performed By: #### F T4 #### [facility] [address] [address] [address] Isabel Wolfe T4on 06-05-2022 T4 [Mass/Vol] 6.20 ug/dL Normal 4.80-13.90 [facility] Comment on above: Performed By: #### T 4, TSH #### [facility] [address] [place] [address] Dr. Isabel Wolfe TSHon 06-05-2022 TSH 0.845 uIU/mL Normal 0.358-3.74 0 [facility] Comment on above: Performed By: #### T 4, TSH #### [facility] [address] [address] [address] Isabel Wolfe MICROALBUMIN/ CREATININE RAT IOon 04-09-2022 Albumin, Urine 4.4 ug/mL Normal Not Estab. [facility] Comment on above: Performed By: #### M ALBCRL #### [facility] [address] [address] [address] Isabel Wolfe Albumin/ Creatinine Ratio 11 mg/g creat Normal 0-29 [facility] Comment on above: Result Comment: Norm al: 0 - 29 Moderately increased: 30 - 300 Severely increased: >300 Performed By: #### M ALBCRL #### [facility] [address] [address] [address] Isabel Wolfe Creatinine, Urine 41.2 mg/dL Normal Not Estab. [facility] Comment on above: Performed By: #### M ALBCRL #### [facility] [address] [place] [address] Dr. Isabel Wolfe GLYCOHEMOGLOBIN A1Con 2021 ADA RECOMMENDATION SEE BELOW Normal [facility] Comment on above: Result Comment: ADA RECOMMENDED LIMIT 4.0 - 6.0 ADA THERAPEUTIC TARGET < 7.0 ACTION SUGGESTED > 7.0 Performed By: #### A 1C #### [facility] [address] [place] [address] Dr. Isabel Wolfe Glucose [Mass/Vol] 117 mg/dL Normal [facility] Comment on above: Performed By: #### A 1C #### [facility] [address] [address] [address] Isabel Wolfe HbA1c (Bld) [Mass fraction] 5.7 % Normal 4.5-6.2 [facility] Comment on above: Performed By: #### A 1C #### [facility] [address] [place] [address] Dr. Isabel Wolfe LIPID PROFILEon 04-06-2022 CHOL-HDL RATIO NORM SEE BELOW Normal [facility] Comment on above: Result Comment: 3.3 - 4.4 LOW RISK 4.4 - 7.1 AVERAGE RISK 7.1 - 11.0 MODERATE RISK >11.0 HIGH RISK Performed By: #### L IPID, CMP #### [facility] [address] [place] [address] Dr. Isabel Wolfe Cholesterol [Mass/Vol] 165 mg/dL Normal <=200 [facility] Comment on above: Performed By: #### L IPID, CMP #### [facility] [address] [address] [address] Isabel Wolfe Cholesterol in HDL [Mass/Vol] 38 mg/dL Critically low 40-60 [facility] Comment on above: Performed By: #### L IPID, CMP #### [facility] [address] [address] [address] Isabel Wolfe Cholesterol in LDL [Mass/Vol] 110.0 mg/dL Normal [facility] Comment on above: Performed By: #### L IPID, CMP #### [facility] [address] [place] [address] Dr. Isabel Wolfe Cholesterol.total/Chol esterol in HDL [Mass ratio] 4.3 {ratio} Normal [facility] Comment on above: Performed By: #### L IPID, CMP #### [facility] [address] [address] [address] Isabel Wolfe HDL NORMAL > or = 60 mg/dl - LO W CARDIOVASCULAR RISK <40 mg/dl - HIGH CARDIOVASCULAR RISK Normal [facility] Comment on above: Performed By: #### L IPID, CMP #### [facility] [address] [address] [address] Isabel Wolfe LDL CALC NORMAL SEE BELOW Normal [facility] Comment on above: Result Comment: <100 mg/dl OPTIMAL 100 - 129 mg/dl NEAR OR ABOVE OPTIMAL 130 - 159 mg/dl BORDERLINE HIGH 160 - 189 mg/dl HIGH >190 mg/dl VERY HIGH Performed By: #### L IPID, CMP #### [facility] [address] [address] [address] Isabel Wolfe Triglyceride [Mass/Vol] 85 mg/dL Normal <=150 [facility] Comment on above: Performed By: #### L IPID, CMP #### [facility] [address] [address] [address] Isabel Wolfe VLDL CALC 17.0 mg/dL Normal [facility] Comment on above: Performed By: #### L IPID, CMP #### [facility] [address] [address] [address] Isabel Wolfe PROF 14(COMP METB)on 022 Albumin [Mass/Vol] 3.3 g/dL Critically low 3.4-5.0 [facility] Comment on above: Performed By: #### L IPID, CMP #### [facility] [address] [address] [address] Isabel Wolfe Albumin/Globulin [Mass ratio] 0.9 {ratio} Normal [facility] Comment on above: Performed By: #### L IPID, CMP #### [facility] [address] [address] [address] Isabel Wolfe ALP [Catalytic activity/Vol] 86 U/L Normal 46-116 [facility] Comment on above: Performed By: #### L IPID, CMP #### [facility] [address] [address] [address] Isabel Wolfe ALT [Catalytic activity/Vol] 17 U/L Normal 14-59 [facility] Comment on above: Performed By: #### L IPID, CMP #### [facility] [address] [address] [address] Isabel Wolfe Anion gap [Moles/Vol] 14.3 mmol/L Normal [facility] Comment on above: Performed By: #### L IPID, CMP #### [facility] [address] [address] [address] Isabel Wolfe AST [Catalytic activity/Vol] 10 U/L Critically low 15-37 [facility] Comment on above: Performed By: #### L IPID, CMP #### [facility] [address] [place] [address] Dr. Isabel Wolfe Bilirubin [Mass/Vol] 0.5 mg/dL Normal 0.2-1.0 [facility] Comment on above: Performed By: #### L IPID, CMP #### [facility] [address] [address] [address] Isabel Wolfe Calcium [Mass/Vol] 9.0 mg/dL Normal 8.5-10.1 [facility] Comment on above: Performed By: #### L IPID, CMP #### [facility] [address] [place] [address] Dr. Isabel Wolfe Chloride [Moles/Vol] 104 mmol/L Normal 98-107 [facility] Comment on above: Performed By: #### L IPID, CMP #### [facility] [address] [address] [address] Isabel Wolfe CO2 [Moles/Vol] 25.8 mmol/L Normal 21.0-32.0 [facility] Comment on above: Performed By: #### L IPID, CMP #### [facility] [address] [address] [address] Isabel Wolfe Creatinine [Mass/Vol] 0.95 mg/dL Normal 0.55-1.02 [facility] Comment on above: Performed By: #### L IPID, CMP #### [facility] [address] [address] [address] Isabel Wolfe EGFR-AF BAHAMIAN >60 Normal >=60 [facility] Comment on above: Performed By: #### L IPID, CMP #### [facility] [address] [address] [address] Isabel Wolfe EGFR-NON AF BAHAMIAN >60 Normal >=60 [facility] Comment on above: Performed By: #### L IPID, CMP #### [facility] [address] [address] [address] Isabel Wolfe Globulin (S) [Mass/Vol] 3.6 g/dL Normal [facility] Comment on above: Performed By: #### L IPID, CMP #### [facility] [address] [address] [address] Isabel Wolfe Glucose [Mass/Vol] 101 mg/dL Normal 74-106 [facility] Comment on above: Performed By: #### L IPID, CMP #### [facility] [address] [address] [address] Isabel Wolfe Potassium [Moles/Vol] 4.1 mmol/L Normal 3.5-5.1 [facility] Comment on above: Performed By: #### L IPID, CMP #### [facility] [address] [address] [address] Isabel Wolfe Protein [Mass/Vol] 6.9 g/dL Normal 6.4-8.2 [facility] Comment on above: Performed By: #### L IPID, CMP #### [facility] [address] [address] [address] Isabel Wolfe Sodium [Moles/Vol] 140 mmol/L Normal 136-145 [facility] Comment on above: Performed By: #### L IPID, CMP #### [facility] [address] [address] [address] Isabel Wolfe Urea nitrogen [Mass/Vol] 12.0 mg/dL Normal 7.0-18.0 [facility] Comment on above: Performed By: #### L IPID, CMP #### [facility] [address], [place] [address] Dr. Isabel Wolfe Urea nitrogen/Creatinine [Mass ratio] 12.6 mg/mg Normal [facility] Comment on above: Performed By: #### L IPID, CMP #### [facility] [address], [place] [address] Dr. Isabel Wolfe COVID Quick Testingon 2020 Result Negative [employer] Other MRI ELBOW LEFT WO CONTRASTon 08-10-2020 [...] Jay Umanzor MD 08/10/20 Final result Normal [facility] 1. High-grade partial-thickness tearing at the origin of the common extensor tendon with moderate underlying tendinosis. 2. Small joint effusion. No intra-articular loose body. 3. No acute osseous abnormality. [facility], [place] EXAMINATION: MRI OF THE [...] collection identified within the visualized soft tissues. [facility] [place], [place] Man[place], [employer] Incoming Radiant Results From [employer] - 08/10/2020 2:33 PM EST EXAMINATION: MRI [...] loose body. 3. No acute osseous abnormality. [facility], [place] Vital Signs Date Time Vital Sign Value Performing Clinician Anthonyi mikie 05-08-2025 10:03-0400 Body height 157.5 cm Anamika Celestin OFFSHORING MANAGER Work Phone: [facility] 05-08-2025 10:03-0400 Body mass index (BMI) [Ratio] 45.73 kg/m2 Anamika Celestin OFFSHORING MANAGER Work Phone: [facility] 05-08-2025 10:03-0400 Body weight 113.4 kg Anamika Celestin OFFSHORING MANAGER Work Phone: [facility] 05-08-2025 10:03-0400 Diastolic blood pressure 78 mm[Hg] Anamika Celestin OFFSHORING MANAGER Work Phone: [facility] 05-08-2025 10:03-0400 Heart rate 76 /min Anamika Celestin OFFSHORING MANAGER Work Phone: [facility] 05-08-2025 10:03-0400 Respiratory rate 17 /min Anamika Celestin OFFSHORING MANAGER Work Phone: [facility] 05-08-2025 10:03-0400 SaO2% (BldA) [Mass fraction] 98 % Anamika Celestin OFFSHORING MANAGER Work Phone: [facility] 05-08-2025 10:03-0400 Systolic blood pressure 128 mm[Hg] Anamika Celestin OFFSHORING MANAGER Work Phone: [facility] 05-02-2025 15:06-0400 Body height 157.5 cm Alexis Grace DPM Work Phone: [facility] 05-02-2025 15:06-0400 Body mass index (BMI) [Ratio] 49.02 kg/m2 Alexis Grace DPM Work Phone: [facility] 05-02-2025 15:06-0400 Body weight 121.56 kg Alexis Sanjay DPM Work Phone: [facility] 03-28-2025 14:42-0400 Body weight 121.56 kg Alexis Sanjya DPM Work Phone: [facility] 11-30-2024 12:26-0400 Body height 157.5 cm Martin Larios MD Work Phone: [facility] 11-30-2024 12:26-0400 Body mass index (BMI) [Ratio] 46.2 kg/m2 Martin Larios MD Work Phone: [facility] 11-30-2024 12:26-0400 Body weight 114.58 kg Martin Larios MD Work Phone: [facility] 11-30-2024 12:26-0400 Diastolic blood pressure 74 mm[Hg] Martin Larios MD Work Phone: [facility] 11-30-2024 12:26-0400 Heart rate 70 /min Martin Larios MD Work Phone: [facility] 11-30-2024 12:26-0400 Systolic blood pressure 118 mm[Hg] Martin Larios MD Work Phone: [facility] 11-16-2024 11:01-0400 Diastolic blood pressure 80 mm[Hg] [facility] 1 [facility] 11-16-2024 11:01-0400 Heart rate 75 /min [facility] 11-16-2024 11:01-0400 SaO2% (BldA) [Mass fraction] 97 % [facility] 1 [facility] 11-16-2024 11:01-0400 Systolic blood pressure 152 mm[Hg] [facility] 1 [facility] 10-19-2024 14:39-0500 Heart rate 64 /min YESENIA YUSUF [facility] 10-19-2024 14:39-0500 SaO2% (BldA) [Mass fraction] 96 % YESENIA NKANSAH-AMANKRA [facility] 10-19-2024 14:39-0500 Respiratory rate 18 /min YESENIA NKANSAH-AMANKRA [facility] 10-19-2024 14:39-0500 Diastolic blood pressure 88 mm[Hg] YESENIA NKANSAH-AMANKRA [facility] 10-19-2024 14:39-0500 Mean blood pressure 107 mm[Hg] YESENIA NKANSAH-AMANKRA [facility] 10-19-2024 14:39-0500 Systolic blood pressure 146 mm[Hg] YESENIA NKANSAH-AMANKRA [facility] 10-19-2024 14:39-0500 Blood Pressure Location YESENIA NKANSAH-AMANKRA [facility] 10-19-2024 13:26-0500 Heart rate 64 /min YESENIA NKANSAH-AMANKRA [facility] 10-19-2024 13:26-0500 SaO2% (BldA) [Mass fraction] 98 % YESENIA NKANSAH-AMANKRA [facility] 10-19-2024 13:26-0500 Respiratory rate 16 /min YESENIA NKANSAH-AMANKRA [facility] 10-19-2024 13:25-0500 Blood Pressure Location YESENIA NKANSAH-AMANKRA [facility] 10-19-2024 13:25-0500 Diastolic blood pressure 78 mm[Hg] YESENIA NKANSAH-AMANKRA [facility] 10-19-2024 13:25-0500 Mean blood pressure 96 mm[Hg] YESENIA NKANSAH-AMANKRA [facility] 10-19-2024 13:25-0500 Systolic blood pressure 133 mm[Hg] YESENIA NKANSAH-AMANKRA [facility] 10-19-2024 13:11-0500 Blood Pressure Location YESENIA NKANSAH-AMANKRA [facility] 10-19-2024 13:11-0500 Body temperature 97.52 [degF] YESENIA NKANSAH-AMANKRA [facility] 10-19-2024 13:11-0500 Diastolic blood pressure 90 mm[Hg] YESENIA NKANSAH-AMANKRA [facility] 10-19-2024 13:11-0500 Heart rate 64 /min YESENIA NKANSAH-AMANKRA [facility] 10-19-2024 13:11-0500 Respiratory rate 16 /min YESENIA NKANSAH-AMANKRA [facility] 10-19-2024 13:11-0500 SaO2% (BldA) [Mass fraction] 97 % YESENIA NKANSAH-AMANKRA [facility] 10-19-2024 13:11-0500 Systolic blood pressure 153 mm[Hg] YESENIA NKANSAH-AMANKRA [facility] 10-19-2024 13:01-0500 Respiratory rate 17 /min YESENIA NKANSAH-AMANKRA [facility] 10-19-2024 12:56-0500 Respiratory rate 12 /min YESENIA NKANSAH-AMANKRA [facility] 10-19-2024 12:46-0500 Body temperature 97.34 [degF] YESENIA NKANSAH-AMANKRA [facility] 10-19-2024 09:21-0500 Mean blood pressure 77 mm[Hg] YESENIA NKANSAH-AMANKRA [facility] 10-19-2024 09:18-0500 Respiratory rate 20 /min YESENIA NKANSAH-AMANKRA [facility] 10-19-2024 09:18-0500 Body temperature 98.06 [degF] YESENIA NKANSAH-AMANKRA [facility] 10-12-2024 14:01-0500 Diastolic blood pressure 79 mm[Hg] YESENIA NKANSAH-AMANKRA [facility] 10-12-2024 14:01-0500 Heart rate 71 /min YESENIA NKANSAH-AMANKRA [facility] 10-12-2024 14:01-0500 Mean blood pressure 93 mm[Hg] YESENIA NKANSAH-AMANKRA [facility] 10-12-2024 14:01-0500 Systolic blood pressure 120 mm[Hg] YESENIA NKANSAH-AMANKRA [facility] 10-12-2024 14:01-0500 Heart rate 70 /min YESENIA NKANSAH-AMANKRA [facility] 10-12-2024 14:01-0500 SaO2% (BldA) [Mass fraction] 100 % YESENIA NKANSAH-AMANKRA [facility] 10-12-2024 13:58-0500 Diastolic blood pressure 71 mm[Hg] YESENIA NKANSAH-AMANKRA [facility] 10-12-2024 13:58-0500 Mean blood pressure 83 mm[Hg] YESENIA NKANSAH-AMANKRA [facility] 10-12-2024 13:58-0500 Systolic blood pressure 109 mm[Hg] YESENIA NKANSAH-AMANKRA [facility] 10-09-2024 11:41-0500 Blood Pressure Location YESENIA NKANSAH-AMANKRA [facility] 10-09-2024 11:41-0500 Diastolic blood pressure 77 mm[Hg] YESENIA NKANSAH-AMANKRA [facility] 10-09-2024 11:41-0500 Heart rate 81 /min YESENIA NKANSAH-AMANKRA [facility] 10-09-2024 11:41-0500 Systolic blood pressure 107 mm[Hg] YESENIA NKANSAH-AMANKRA [facility] 08-09-2024 15:27-0500 Body weight 121.56 kg Christopher Suzanne DO Work Phone: [facility] 08-09-2024 15:27-0500 Diastolic blood pressure 84 mm[Hg] Christopher Suzanne DO Work Phone: [facility] 08-09-2024 15:27-0500 Heart rate 85 /min Christopher Suzanne DO Work Phone: [facility] 08-09-2024 15:27-0500 SaO2% (BldA) [Mass fraction] 95 % Christopher Suzanne DO Work Phone: [facility] 08-09-2024 15:27-0500 Systolic blood pressure 146 mm[Hg] Christopher Suzanne DO Work Phone: [facility] 07-31-2024 15:12-0500 Diastolic blood pressure 70 mm[Hg] Martin Larios MD Work Phone: [facility] 07-31-2024 15:12-0500 Heart rate 106 /min Martin Larios MD Work Phone: [facility] 07-31-2024 15:12-0500 SaO2% (BldA) [Mass fraction] 92 % Martin Larios MD Work Phone: [facility] 07-31-2024 15:12-0500 Systolic blood pressure 98 mm[Hg] Martin Larios MD Work Phone: [facility] 07-31-2024 14:34-0500 Body height 157.5 cm Martin Larios MD Work Phone: [facility] 07-31-2024 14:34-0500 Body mass index (BMI) [Ratio] 48.29 kg/m2 Martin Larios MD Work Phone: [facility] 07-31-2024 14:34-0500 Body weight 119.75 kg Martin Larios MD Work Phone: [facility] 03-15-2024 14:32-0400 Body height 158.75 cm MD Dario Olmedo Work Phone: [facility] 03-15-2024 14:32-0400 Body mass index (BMI) [Ratio] 47.3 kg/m2 MD Dario Olmedo Work Phone: [facility] 03-15-2024 14:32-0400 Body weight 119.29 kg MD Dario Olmedo Work Phone: [facility] 03-15-2024 14:32-0400 Diastolic blood pressure 77 mm[Hg] MD Dario Olmedo Work Phone: [facility] 03-15-2024 14:32-0400 Heart rate 88 /min MD Dario Olmedo Work Phone: [facility] 03-15-2024 14:32-0400 SaO2% (BldA) [Mass fraction] 94 % MD Dario Olmedo Work Phone: [facility] 03-15-2024 14:32-0400 Systolic blood pressure 125 mm[Hg] MD Dario Olmedo Work Phone: [facility] 02-15-2024 15:05-0400 Diastolic blood pressure 72 mm[Hg] Mloz [facility] 02-15-2024 15:05-0400 Systolic blood pressure 118 mm[Hg] Mloz [facility] 02-15-2024 13:59-0400 Body height 157.5 cm oz C[facility]Arm [facility] 02-15-2024 13:59-0400 Body mass index (BMI) [Ratio] 49.38 kg/m2 oz C-Arm [facility] 02-15-2024 13:59-0400 Body temperature 97.59 [degF] [facility] [facility] [employer] 02-15-2024 13:59-0400 Body weight 122.47 kg [facility] 01-19-2024 10:15-0400 Body height 160 cm [facility] 01-19-2024 10:15-0400 Body mass index (BMI) [Ratio] 48.32 kg/m2 [facility] 01-19-2024 10:15-0400 Body weight 123.74 kg [facility] 01-19-2024 10:15-0400 Diastolic blood pressure 90 mm[Hg] [facility] 01-19-2024 10:15-0400 Systolic blood pressure 142 mm[Hg] [facility] 11-26-2023 11:04-0400 Body height 159.38 cm [facility] 11-26-2023 11:04-0400 Body mass index (BMI) [Ratio] 48.5 kg/m2 [facility] 11-26-2023 11:04-0400 Body weight 123.37 kg [facility] 11-26-2023 11:04-0400 Diastolic blood pressure 81 mm[Hg] [facility] 11-26-2023 11:04-0400 Heart rate 89 /min [facility] [facility] 11-26-2023 11:04-0400 SaO2% (BldA) [Mass fraction] 97 % [facility] 11-26-2023 11:04-0400 Systolic blood pressure 137 mm[Hg] [facility] 04-16-2023 13:10-0400 Body height 159.38 cm Kera Mccall Other [facility] [employer] Other 04-16-2023 13:10-0400 Body mass index (BMI) [Ratio] 48.06 kg/m2 Kera Bossler Other [employer] [facility] [employer] Other 04-16-2023 13:10-0400 Body temperature 97.8 [degF] Kera Mccall Other [employer] Other 04-16-2023 13:10-0400 Body weight 122.11 kg Kera Mccall Other [employer] Other 04-16-2023 13:10-0400 Respiratory rate 18 /min Kera Mccall Other [employer] Other 04-16-2023 13:10-0400 SaO2% (BldA) [Mass fraction] 96 % Kera Mccall Other [employer] Other 02-02-2023 10:00-0400 Body height 159.38 cm Clive Marino Other [employer] Other 02-02-2023 10:00-0400 Body mass index (BMI) [Ratio] 48.06 kg/m2 Clive Marino Other [employer] Other 02-02-2023 10:00-0400 Body weight 122.11 kg Clive Marino Other [employer] Other 02-02-2023 10:00-0400 Diastolic blood pressure 73 mm[Hg] Clive Marino Other [employer] Other 02-02-2023 10:00-0400 Respiratory rate 18 /min Clive Marino Other [employer] Other 02-02-2023 10:00-0400 SaO2% (BldA) [Mass fraction] 98 % Clive Marino Other [employer] Other 02-02-2023 10:00-0400 Systolic blood pressure 98 mm[Hg] Clive Marino Other [employer] Other 12-23-2022 15:00-0400 Body height 159.38 cm Dario Olmedo Other [employer] Other 12-23-2022 15:00-0400 Body mass index (BMI) [Ratio] 48.03 kg/m2 Dario Olmedo Other [employer] Other 12-23-2022 15:00-0400 Body weight 122.02 kg Dario Olmedo Other [employer] Other 12-23-2022 15:00-0400 Diastolic blood pressure 84 mm[Hg] Dario Olmedo Other [employer] Other 12-23-2022 15:00-0400 SaO2% (BldA) [Mass fraction] 100 % Dario Olmedo Other [employer] Other 12-23-2022 15:00-0400 Systolic blood pressure 127 mm[Hg] Dario Olmedo Other [employer] Other 12-14-2022 10:30-0400 Body height 159.38 cm Danya Missler Other [employer] Other 12-14-2022 10:30-0400 Body mass index (BMI) [Ratio] 48.04 kg/m2 Danya Missler Other [employer] Other 12-14-2022 10:30-0400 Body weight 122.06 kg Danya Missler Other [employer] Other 12-14-2022 10:30-0400 Diastolic blood pressure 82 mm[Hg] Danya Missler Other [employer] Other 12-14-2022 10:30-0400 Respiratory rate 18 /min Danya Missler Other [employer] Other 12-14-2022 10:30-0400 SaO2% (BldA) [Mass fraction] 97 % Danya Missler Other [employer] Other 12-14-2022 10:30-0400 Systolic blood pressure 124 mm[Hg] Danya Missler Other [employer] Other 12-01-2022 14:00-0400 Body height 159.38 cm Serene Bustos Other [employer] Other 12-01-2022 14:00-0400 Body mass index (BMI) [Ratio] 46.96 kg/m2 Serene Fitt Other [employer] Other 12-01-2022 14:00-0400 Body weight 119.3 kg Serene Fitt Other [employer] Other 11-07-2022 11:00-0500 Body height 159.38 cm Ellie Juan Jose Other [employer] Other 11-07-2022 11:00-0500 Body mass index (BMI) [Ratio] 46.17 kg/m2 Ellie Juan Jose Other [employer] Other 11-07-2022 11:00-0500 Body weight 117.3 kg Ellie Juan Jose Other [employer] Other 11-07-2022 11:00-0500 Diastolic blood pressure 74 mm[Hg] Ellie Juan Jose Other [employer] Other 11-07-2022 11:00-0500 Respiratory rate 18 /min Ellie Juan Jose Other [employer] Other 11-07-2022 11:00-0500 SaO2% (BldA) [Mass fraction] 99 % Elliedavid Ingram Other [employer] Other 11-07-2022 11:00-0500 Systolic blood pressure 123 mm[Hg] Ellie Juan Jose Other [employer] Other 11-03-2022 14:00-0500 Body height 159.38 cm Susana Ellis Other [employer] Other 11-03-2022 14:00-0500 Body mass index (BMI) [Ratio] 46.74 kg/m2 Susana Ellis Other [employer] Other 11-03-2022 14:00-0500 Body temperature 97.8 [degF] Susana Ellis Other [employer] Other 11-03-2022 14:00-0500 Body weight 118.75 kg Susana Ellis Other [employer] Other 11-03-2022 14:00-0500 Diastolic blood pressure 72 mm[Hg] Susana Ellis Other [employer] Other 11-03-2022 14:00-0500 Respiratory rate 8 /min Susana Ellis Other [employer] Other 11-03-2022 14:00-0500 SaO2% (BldA) [Mass fraction] 98 % Susana Ellis Other [employer] Other 11-03-2022 14:00-0500 Systolic blood pressure 122 mm[Hg] Susana Ellis Other [employer] Other 10-30-2022 11:15-0500 Body height 159.38 cm Danya Carty Other [employer] Other 10-30-2022 11:15-0500 Body mass index (BMI) [Ratio] 46.76 kg/m2 Danya Helmler Other [employer] Other 10-30-2022 11:15-0500 Body weight 118.8 kg Danyaher Helmler Other [employer] Other 10-30-2022 11:15-0500 Diastolic blood pressure 70 mm[Hg] Danya Missler Other [employer] Other 10-30-2022 11:15-0500 Respiratory rate 18 /min Danya Missler Other [employer] Other 10-30-2022 11:15-0500 SaO2% (BldA) [Mass fraction] 99 % Danya Missler Other [employer] Other 10-30-2022 11:15-0500 Systolic blood pressure 124 mm[Hg] Danyaher Helmler Other [employer] Other 10-29-2022 11:00-0500 Body height 159.38 cm Ellie Binghamault Other [employer] Other 10-29-2022 11:00-0500 Body mass index (BMI) [Ratio] 46.46 kg/m2 Ellie Juan Jose Other [employer] Other 10-29-2022 11:00-0500 Body temperature 99.8 [degF] Ellie Juan Jose Other [employer] Other 10-29-2022 11:00-0500 Body weight 118.03 kg Ellie Juan Jose Other [employer] Other 10-29-2022 11:00-0500 Diastolic blood pressure 80 mm[Hg] Ellie Juan Jose Other [employer] Other 10-29-2022 11:00-0500 Respiratory rate 18 /min Ellie Binghamault Other [employer] Other 10-29-2022 11:00-0500 SaO2% (BldA) [Mass fraction] 98 % Ellie Ingram Other [employer] Other 10-29-2022 11:00-0500 Systolic blood pressure 120 mm[Hg] Ellie Binghamault Other [employer] Other 10-08-2022 20:24-0500 Diastolic blood pressure 63 mm[Hg] [facility] 10-08-2022 20:24-0500 Heart rate 96 /min [facility] 10-08-2022 20:24-0500 Respiratory rate 18 /min [facility] 10-08-2022 20:24-0500 SaO2% (BldA) [Mass fraction] 98 % [facility] 10-08-2022 20:24-0500 Systolic blood pressure 135 mm[Hg] [facility] 10-08-2022 16:01-0500 Body height 157.48 cm [facility] 10-08-2022 16:01-0500 Body temperature 98.1 [degF] [facility] 10-08-2022 16:01-0500 Body weight 116 kg [facility] 10-06-2022 12:15-0500 Body height 159.38 cm Serene Bustos Other [employer] Other 10-01-2022 11:00-0500 Body height 159.38 cm Ellie Binghamault Other [employer] Other 10-01-2022 11:00-0500 Body mass index (BMI) [Ratio] 45.71 kg/m2 Ellie Juan Jose Other [employer] Other 10-01-2022 11:00-0500 Body temperature 98.3 [degF] Ellie Ingram Other [employer] Other 10-01-2022 11:00-0500 Body weight 116.12 kg Ellie Ingram Other [employer] Other 10-01-2022 11:00-0500 Respiratory rate 18 /min Ellie Ingram Other [employer] Other 10-01-2022 11:00-0500 SaO2% (BldA) [Mass fraction] 99 % Ellie Ingram Other [employer] Other 09-30-2022 08:30-0500 Body height 159.38 cm Danya Missler Other [employer] Other 09-30-2022 08:30-0500 Body mass index (BMI) [Ratio] 45.72 kg/m2 Danya Missler Other [employer] Other 09-30-2022 08:30-0500 Body weight 116.17 kg Danya Missler Other [employer] Other 09-30-2022 08:30-0500 Diastolic blood pressure 81 mm[Hg] Danya Missler Other [employer] Other 09-30-2022 08:30-0500 Respiratory rate 18 /min Danya Missler Other [employer] Other 09-30-2022 08:30-0500 SaO2% (BldA) [Mass fraction] 98 % Danya Missler Other [employer] Other 09-30-2022 08:30-0500 Systolic blood pressure 123 mm[Hg] Danya Carty Other [employer] Other 09-20-2022 11:15-0500 Body height 162.56 cm Susana Rhonda Other [employer] Other 09-20-2022 11:15-0500 Body mass index (BMI) [Ratio] 43.59 kg/m2 Susana Rhonda Other [employer] Other 09-20-2022 11:15-0500 Body temperature 97.7 [degF] Susana Rhonda Other [employer] Other 09-20-2022 11:15-0500 Body weight 115.21 kg Susana Rhonda Other [employer] Other 09-20-2022 11:15-0500 Diastolic blood pressure 75 mm[Hg] Susana Rhonda Other [employer] Other 09-20-2022 11:15-0500 Respiratory rate 18 /min Susana Rhonda Other [employer] Other 09-20-2022 11:15-0500 SaO2% (BldA) [Mass fraction] 98 % Susana Rhonda Other [employer] Other 09-20-2022 11:15-0500 Systolic blood pressure 118 mm[Hg] Susana Rhonda Other [employer] Other 09-14-2022 18:00-0500 Body height 162.56 cm Ellie Ingram Other [employer] Other 09-14-2022 18:00-0500 Body mass index (BMI) [Ratio] 43.59 kg/m2 Ellie Ingram Other [employer] Other 09-14-2022 18:00-0500 Body temperature 97.1 [degF] Ellie Ingram Other [employer] Other 09-14-2022 18:00-0500 Body weight 115.21 kg Ellie Ingram Other [employer] Other 09-14-2022 18:00-0500 Diastolic blood pressure 94 mm[Hg] Ellie Ingram Other [employer] Other 09-14-2022 18:00-0500 Respiratory rate 18 /min Ellie Ingram Other [employer] Other 09-14-2022 18:00-0500 SaO2% (BldA) [Mass fraction] 100 % Ellie Ingram Other [employer] Other 09-14-2022 18:00-0500 Systolic blood pressure 157 mm[Hg] Ellie Ingram Other [employer] Other 09-10-2022 20:30-0500 Diastolic blood pressure 72 mm[Hg] [facility] 09-10-2022 20:30-0500 Heart rate 95 /min [facility] 09-10-2022 20:30-0500 Respiratory rate 18 /min [facility] 09-10-2022 20:30-0500 SaO2% (BldA) [Mass fraction] 99 % [facility] 09-10-2022 20:30-0500 Systolic blood pressure 156 mm[Hg] [facility] 09-10-2022 15:46-0500 Body height 165.1 cm [facility] 09-10-2022 15:46-0500 Body temperature 99 [degF] [facility] 09-10-2022 15:46-0500 Body weight 115.85 kg [facility] 09-10-2022 15:00-0500 Body height 162.56 cm Ellie Juan Jose Other [employer] Other 09-10-2022 15:00-0500 Body mass index (BMI) [Ratio] 43.94 kg/m2 Ellie Ingram Other [employer] Other 09-10-2022 15:00-0500 Body temperature 98.2 [degF] Ellie Ingram Other [employer] Other 09-10-2022 15:00-0500 Body weight 116.12 kg Ellie Juan Jose Other [employer] Other 09-10-2022 15:00-0500 SaO2% (BldA) [Mass fraction] 98 % Ellie Juan Jose Other [employer] Other 08-27-2022 15:00-0500 Body height 162.56 cm Ellie Ingram Other [employer] Other 08-27-2022 15:00-0500 Body mass index (BMI) [Ratio] 43.59 kg/m2 Ellie Ingram Other [employer] Other 08-27-2022 15:00-0500 Body temperature 97.8 [degF] Ellie Ingram Other [employer] Other 08-27-2022 15:00-0500 Body weight 115.21 kg Ellie Ingram Other [employer] Other 08-27-2022 15:00-0500 Diastolic blood pressure 64 mm[Hg] Ellie Ingram Other [employer] Other 08-27-2022 15:00-0500 Respiratory rate 18 /min Ellie Ingram Other [employer] Other 08-27-2022 15:00-0500 SaO2% (BldA) [Mass fraction] 99 % Ellie Ingram Other [employer] Other 08-27-2022 15:00-0500 Systolic blood pressure 107 mm[Hg] Ellie Binghamault Other [employer] Other 07-30-2022 12:00-0500 Body height 162.56 cm Ellie Ingram Other [employer] Other 07-30-2022 12:00-0500 Body mass index (BMI) [Ratio] 43.25 kg/m2 Ellie Binghamault Other [employer] Other 07-30-2022 12:00-0500 Body temperature 97.6 [degF] Ellie Binghamault Other [employer] Other 07-30-2022 12:00-0500 Body weight 114.31 kg Ellie Binghamault Other [employer] Other 07-30-2022 12:00-0500 Diastolic blood pressure 72 mm[Hg] Ellie Ingram Other [employer] Other 07-30-2022 12:00-0500 Respiratory rate 18 /min Ellie Ingram Other [employer] Other 07-30-2022 12:00-0500 SaO2% (BldA) [Mass fraction] 100 % Ellie Ingram Other [employer] Other 07-30-2022 12:00-0500 Systolic blood pressure 135 mm[Hg] Ellie Ingram Other [employer] Other 07-20-2022 12:05-0500 Body height 162.56 cm Ellie Ingram Other [employer] Other 07-20-2022 12:05-0500 Body mass index (BMI) [Ratio] 42.56 kg/m2 Ellie Ingram Other [employer] Other 07-20-2022 12:05-0500 Body temperature 97.8 [degF] Ellie Ingram Other [employer] Other 07-20-2022 12:05-0500 Body weight 112.49 kg Ellie Ingram Other [employer] Other 07-20-2022 12:05-0500 Diastolic blood pressure 71 mm[Hg] Ellie Ingram Other [employer] Other 07-20-2022 12:05-0500 Respiratory rate 18 /min Ellie Ingram Other [employer] Other 07-20-2022 12:05-0500 SaO2% (BldA) [Mass fraction] 99 % Ellie Ingram Other [employer] Other 07-20-2022 12:05-0500 Systolic blood pressure 137 mm[Hg] Ellie Ingram Other [employer] Other 07-02-2022 12:30-0400 Body height 162.56 cm Ellie Ingram Other [employer] Other 07-02-2022 12:30-0400 Body mass index (BMI) [Ratio] 42.56 kg/m2 Ellie Ingram Other [employer] Other 07-02-2022 12:30-0400 Body temperature 98 [degF] Ellie Ingram Other [employer] Other 07-02-2022 12:30-0400 Body weight 112.49 kg Ellie Ingram Other [employer] Other 07-02-2022 12:30-0400 Diastolic blood pressure 84 mm[Hg] Ellie Ingram Other [employer] Other 07-02-2022 12:30-0400 Respiratory rate 18 /min Ellie Ingram Other [employer] Other 07-02-2022 12:30-0400 SaO2% (BldA) [Mass fraction] 100 % Ellie Ingram Other [employer] Other 07-02-2022 12:30-0400 Systolic blood pressure 129 mm[Hg] Ellie Binghamault Other [employer] Other 06-29-2022 11:15-0400 Body height 162.56 cm Pop Blandon Other [employer] Other 06-29-2022 11:15-0400 Body mass index (BMI) [Ratio] 41.19 kg/m2 Pop Blandon Other [employer] Other 06-29-2022 11:15-0400 Body weight 108.86 kg Pop Blandon Other [employer] Other 06-25-2022 17:30-0400 Body height 162.56 cm Ellie Juan Jose Other [employer] Other 06-25-2022 17:30-0400 Body mass index (BMI) [Ratio] 41.19 kg/m2 Ellie Ingram Other [employer] Other 06-25-2022 17:30-0400 Body temperature 97.7 [degF] Ellie Ingram Other [employer] Other 06-25-2022 17:30-0400 Body weight 108.86 kg Ellie Juan Jose Other [employer] Other 06-25-2022 17:30-0400 Diastolic blood pressure 88 mm[Hg] Ellie Ingram Other [employer] Other 06-25-2022 17:30-0400 Respiratory rate 18 /min Ellie Ingram Other [employer] Other 06-25-2022 17:30-0400 SaO2% (BldA) [Mass fraction] 99 % Ellie Ingram Other [employer] Other 06-25-2022 17:30-0400 Systolic blood pressure 135 mm[Hg] Ellie Binghamault Other [employer] Other 05-25-2022 18:00-0400 Body height 162.56 cm Ellie Juan Jose Other [employer] Other 05-25-2022 18:00-0400 Body mass index (BMI) [Ratio] 42.84 kg/m2 Ellie Binghamault Other [employer] Other 05-25-2022 18:00-0400 Body temperature 97.9 [degF] Ellie Juan Jose Other [employer] Other 05-25-2022 18:00-0400 Body weight 113.22 kg Ellie Binghamault Other [employer] Other 05-25-2022 18:00-0400 Diastolic blood pressure 68 mm[Hg] Ellie Binghamault Other [employer] Other 05-25-2022 18:00-0400 Respiratory rate 18 /min Ellie Juan Jose Other [employer] Other 05-25-2022 18:00-0400 SaO2% (BldA) [Mass fraction] 98 % Ellie Juan Jose Other [employer] Other 05-25-2022 18:00-0400 Systolic blood pressure 120 mm[Hg] Ellie Binghamault Other [employer] Other 05-21-2022 12:30-0400 Body height 162.56 cm Ellie Ingram Other [employer] Other 05-21-2022 12:30-0400 Body mass index (BMI) [Ratio] 43.29 kg/m2 Ellie Ingram Other [employer] Other 05-21-2022 12:30-0400 Body temperature 98 [degF] Ellie Ingram Other [employer] Other 05-21-2022 12:30-0400 Body weight 114.4 kg Ellie Ingram Other [employer] Other 05-21-2022 12:30-0400 Diastolic blood pressure 63 mm[Hg] Ellie Ingram Other [employer] Other 05-21-2022 12:30-0400 Respiratory rate 18 /min Ellie Ingram Other [employer] Other 05-21-2022 12:30-0400 SaO2% (BldA) [Mass fraction] 100 % Ellie Ingram Other [employer] Other 05-21-2022 12:30-0400 Systolic blood pressure 103 mm[Hg] Ellie Ingram Other [employer] Other 04-27-2022 12:30-0400 Body height 162.56 cm Ellie Ingram Other [employer] Other 04-27-2022 12:30-0400 Body mass index (BMI) [Ratio] 43.59 kg/m2 Ellie Ingram Other [employer] Other 04-27-2022 12:30-0400 Body temperature 98.6 [degF] Ellie Ingram Other [employer] Other 04-27-2022 12:30-0400 Body weight 115.21 kg Ellie Ingram Other [employer] Other 04-27-2022 12:30-0400 Diastolic blood pressure 81 mm[Hg] Ellie Ingram Other [employer] Other 04-27-2022 12:30-0400 Respiratory rate 18 /min Ellie Ingram Other [employer] Other 04-27-2022 12:30-0400 SaO2% (BldA) [Mass fraction] 98 % Ellie Ingram Other [employer] Other 04-27-2022 12:30-0400 Systolic blood pressure 130 mm[Hg] Ellie Ingram Other [employer] Other 04-06-2022 11:00-0400 Body height 162.56 cm Ellie Ingram Other [employer] Other 04-06-2022 11:00-0400 Body mass index (BMI) [Ratio] 43.63 kg/m2 Ellie Ingram Other [employer] Other 04-06-2022 11:00-0400 Body temperature 98.5 [degF] Ellie Ingram Other [employer] Other 04-06-2022 11:00-0400 Body weight 115.31 kg Ellie Binghamault Other [employer] Other 04-06-2022 11:00-0400 Diastolic blood pressure 66 mm[Hg] Ellie Binghamault Other [employer] Other 04-06-2022 11:00-0400 Respiratory rate 18 /min Ellie Binghamault Other [employer] Other 04-06-2022 11:00-0400 SaO2% (BldA) [Mass fraction] 98 % Ellie Binghamault Other [employer] Other 04-06-2022 11:00-0400 Systolic blood pressure 131 mm[Hg] Ellie Binghamault Other [employer] Other 03-03-2022 12:05-0400 Body height 162.56 cm Ellie Binghamault Other [employer] Other 03-03-2022 12:05-0400 Body mass index (BMI) [Ratio] 41.19 kg/m2 Ellie Binghamault Other [employer] Other 03-03-2022 12:05-0400 Body temperature 98 [degF] Ellie Binghamault Other [employer] Other 03-03-2022 12:05-0400 Body weight 108.86 kg Ellie Binghamault Other [employer] Other 03-03-2022 12:05-0400 Diastolic blood pressure 72 mm[Hg] Ellie Juan Jose Other [employer] Other 03-03-2022 12:05-0400 Respiratory rate 18 /min Elile Ingram Other [employer] Other 03-03-2022 12:05-0400 SaO2% (BldA) [Mass fraction] 100 % Ellie Ingram Other [employer] Other 03-03-2022 12:05-0400 Systolic blood pressure 116 mm[Hg] Ellie Ingram Other [employer] Other 11-13-2021 16:45-0400 Body height 162.56 cm Pop Blandon Other [employer] Other 11-13-2021 16:45-0400 Body mass index (BMI) [Ratio] 42.91 kg/m2 Pop Blandon Other [employer] Other 11-13-2021 16:45-0400 Body weight 113.4 kg Pop Yazminshady Other [employer] Other 11-06-2021 14:20-0500 Body height 162.56 cm Ellie Ingram Other [employer] Other 11-06-2021 14:20-0500 Body mass index (BMI) [Ratio] 43.08 kg/m2 Ellie Ingram Other [employer] Other 11-06-2021 14:20-0500 Body temperature 97.7 [degF] Ellie Ingram Other [employer] Other 11-06-2021 14:20-0500 Body weight 113.85 kg Ellie Binghamault Other [employer] Other 11-06-2021 14:20-0500 Diastolic blood pressure 70 mm[Hg] Ellie Ingram Other [employer] Other 11-06-2021 14:20-0500 Respiratory rate 18 /min Ellie Ingram Other [employer] Other 11-06-2021 14:20-0500 SaO2% (BldA) [Mass fraction] 99 % Ellie Ingram Other [employer] Other 11-06-2021 14:20-0500 Systolic blood pressure 143 mm[Hg] Ellie Ingram Other [employer] Other 09-29-2021 09:15-0500 Body height 162.56 cm Pop Blandon Other [employer] Other 08-11-2021 16:30-0500 Body height 162.56 cm Edie Singh Other [employer] Other 08-11-2021 16:30-0500 Body mass index (BMI) [Ratio] 43.08 kg/m2 Edie Singh Other [employer] Other 08-11-2021 16:30-0500 Body weight 113.85 kg Edie Singh Other [facility] Other 08-11-2021 16:30-0500 Diastolic blood pressure 88 mm[Hg] Edie Singh Other [facility] Other 08-11-2021 16:30-0500 Respiratory rate 18 /min Edie Singh Other [facility] Other 08-11-2021 16:30-0500 SaO2% (BldA) [Mass fraction] 99 % Edie Artemio Other [employer] Other 08-11-2021 16:30-0500 Systolic blood pressure 130 mm[Hg] Edie Singh Other [facility] Other 06-12-2021 15:45-0400 Body height 162.56 cm Edie Artemio Other [facility] Other 06-12-2021 15:45-0400 Body mass index (BMI) [Ratio] 42.84 kg/m2 Edie Singh Other [facility] Other 06-12-2021 15:45-0400 Body temperature 98.1 [degF] Edie Singh Other [facility] Other 06-12-2021 15:45-0400 Body weight 113.22 kg Edie Artemio Other [facility] Other 06-12-2021 15:45-0400 Diastolic blood pressure 82 mm[Hg] Edie Singh Other [facility] Other 06-12-2021 15:45-0400 Respiratory rate 18 /min Edie Singh Other [facility] Other 06-12-2021 15:45-0400 SaO2% (BldA) [Mass fraction] 99 % Edie Singh Other [facility] Other 06-12-2021 15:45-0400 Systolic blood pressure 132 mm[Hg] Edie Singh Other [employer] Other Encounters Encounter Date Encounter Type Care Provider Facility Start: 05-08-2025 End: 05-08-2025 Bamboo flowsheet Anamika Celestin OFFSHORING MANAGER Work Phone: [facility] Start: 05-08-2025 End: 05-08-2025 Bamboo flowsheet Anamika Celestin OFFSHORING MANAGER Work Phone: [facility] Start: 05-08-2025 End: 05-08-2025 Office outpatient new 30 minutes Anamika Celestin OFFSHORING MANAGER [facility] Comment on above: Primary insomnia (Pr imary Dx); Lipid screening; Primary hypertension ; Acquired hypothyroidism ; Other depression ; Stage 1 chronic kidney disease; Primary osteoarthritis involving multiple joints; Weight gain; Pain; Pain in other joint; Acute non-recurrent frontal sinusitis; Morbid (severe) obesity due to excess calories ([facility]); Obesity, class 3; Body mass index (BMI) 45.0-49.9, adult ([facility]); Major depressive disorder, single episode, in full remission Start: 05-08-2025 End: 05-08-2025 ambulatory ANAMIKA CELESTIN Not Available Start: 05-02-2025 End: 05-02-2025 ambulatory ALEXIS GRACE Not Available Start: 05-02-2025 End: 05-02-2025 Office outpatient visit 15 minutes Alexis Grace DPM Work Phone: [facility] Comment on above: Plantar wart (Primar y Dx) Start: 05-02-2025 End: 05-02-2025 Bamboo flowsheet Alexis Grace DPM Work Phone: [facility] Start: 05-02-2025 End: 05-02-2025 Bamboo flowsheet Alexis Grace DPM Work Phone: [facility] Start: 04-04-2025 End: 04-04-2025 Telephone encounter Alexis Grace DPM Work Phone: [facility] Start: 03-28-2025 End: 03-28-2025 ambulatory ALEXIS GRACE Not Available Start: 03-28-2025 End: 03-28-2025 Office outpatient new 45 minutes Alexis Grace DPM Work Phone: [facility] Comment on above: Onychomycosis (Prima ry Dx); Right foot pain; Plantar wart; Left foot pain Start: 03-28-2025 End: 03-28-2025 Bamboo flowsheet Alexis Grace DPM Work Phone: [facility] Start: 03-28-2025 End: 03-28-2025 Bamboo flowsheet Alexis Grace DPM Work Phone: [facility] Start: 01-16-2025 End: 01-16-2025 ambulatory YESENIA NKANSAH-AMANKRA Facility:[facility] Start: 01-16-2025 End: 01-16-2025 Patient encounter procedure YESENIA NKANSAH-AMANKRA [facility] Start: 11-30-2024 End: 11-30-2024 Office outpatient visit 15 minutes Martin Larios MD Work Phone: [facility] Comment on above: Postural dizziness w ith near syncope Start: 11-30-2024 End: 11-30-2024 ambulatory MARTIN Abdi [facility] Start: 11-16-2024 End: 11-16-2024 Subsequent hospital visit by physician Teo Exam [facility] Comment on above: Postural dizziness w ith near syncope Start: 11-16-2024 End: 11-16-2024 ambulatory AMRTIN Abdi [facility] Start: 11-14-2024 End: 11-14-2024 ambulatory YESENIA NKANSAH-AMANKRA Facility:[facility] Start: 11-02-2024 End: 11-02-2024 ambulatory YESENIA NKANSAH-AMANKRA Facility:[facility] Start: 10-19-2024 End: 10-19-2024 Admission to same day surgery center YESENIA YUSUF [facility] Start: 10-19-2024 End: 10-19-2024 ambulatory TRASH COLLECTOR SUPERVISOR ELLIE INGRAM Facility:[facility] Start: 10-12-2024 End: 10-12-2024 ambulatory ELLIE INGRAM Facility:[facility] Start: 10-12-2024 End: 10-12-2024 Patient encounter procedure YESENIA YUSUF [facility] Start: 10-09-2024 End: 10-09-2024 ambulatory [facility]LLIE INGRAM [facility] Start: 10-09-2024 End: 10-09-2024 Patient encounter procedure YESENIA YUSUF [facility] Start: 10-06-2024 ambulatory ELLIE INGRAM Facil ity:[facility] Start: 10-04-2024 End: 10-24-2024 Pre-admission assessment Obdulio Matamoros [facility] Start: 08-09-2024 End: 08-09-2024 Office outpatient visit 25 minutes Dario Palacios DO Work Phone: [email or web address] [facility] Comment on above: Lumbar radiculopathy (Primary Dx); Polypharmacy Start: 08-09-2024 End: 08-09-2024 ambulatory DARIO PALACIOS Not Available Start: 08-09-2024 End: 08-09-2024 Bamboo flowsheet Dario Palacios DO Work Phone: [facility] Start: 08-09-2024 End: 08-09-2024 Bamboo flowsheet Dario Palacios DO Work Phone: [facility] Start: 07-31-2024 End: 07-31-2024 Office outpatient new 45 minutes Martin Larios MD Work Phone: [facility] Comment on above: Postural dizziness w ith near syncope (Primary Dx); Abnormal EKG Start: 07-31-2024 End: 07-31-2024 ambulatory MARTIN LARIOS [facility]3] Ambulatory Start: 06-22-2024 End: 06-22-2024 ambulatory ELLIE INGRAM Facility:[facility] Start: 05-03-2024 End: 05-03-2024 ambulatory TRASH COLLECTOR SUPERVISOR ELLIE J JUAN JOSE Facility:[facility] Start: 03-15-2024 End: 03-15-2024 ambulatory [facility] STAFF [facility] Work Phone: Start: 03-15-2024 End: 03-15-2024 Patient encounter procedure MD Dario Olmedo Work Phone: [facility] Work Phone: Start: 02-15-2024 End: 02-15-2024 ambulatory [facility] Start: 02-15-2024 End: 02-15-2024 Subsequent hospital visit by physician Patricia Walker MD Work Phone: [facility] Comment on above: Lumbosacral spondylo sis without myelopathy (Primary Dx) Start: 02-15-2024 End: 02-15-2024 ambulatory PATRICIA DONOVAN [facility] Start: 02-01-2024 End: 02-01-2024 ambulatory [facility] Start: 01-20-2024 End: 01-20-2024 ambulatory ELLIE JUAN JOSE Facility:[facility] Start: 01-19-2024 End: 01-19-2024 ambulatory [facility] Start: 01-19-2024 Encounter for gynecological examination (general) (routine) without abnormal findings [facility] Start: 01-19-2024 End: 01-19-2024 Patient encounter procedure [facility] Lead Principal Technical Architect [facility] Start: 01-19-2024 End: 01-19-2024 Periodic preventive med est patient 40-64yrs [facility] Ob Lead Principal Technical Architect [facility] Comment on above: Well woman exam with routine gynecological exam (Primary Dx); Encounter for screening mammogram for malignant neoplasm of breast; Standardized adult depression screening tool completed; Skin lesion of right leg Start: 01-02-2024 End: 01-03-2024 Refill Naima Bates LAUNDRY SUPERVISOR-TRASH COLLECTOR SUPERVISOR Work Phone: [facility] Comment on above: Encounter for initia l prescription of contraceptive pills Start: 12-29-2023 Non-patient / Non-visit MD Jesús Olmedo Work Phone: [facility] Work Phone: Start: 12-28-2023 End: 12-28-2023 ambulatory Dario Olmedo Facility:[facility] Start: 12-28-2023 End: 12-28-2023 ambulatory NON STAFF [facility] Work Phone: Start: 12-28-2023 End: 12-28-2023 Patient encounter procedure MD Dario Olmedo Work Phone: [facility]-Sleep Lab Work Phone: Start: 12-23-2023 ambulatory [facility] Start: 12-15-2023 End: 12-15-2023 Refill Naima Bates LAUNDRY SUPERVISOR-TRASH COLLECTOR SUPERVISOR Work Phone: [facility] [place] Comment on above: Encounter for initia l prescription of contraceptive pills Start: 11-26-2023 End: 11-26-2023 ambulatory [facility] Work Phone: Start: 11-26-2023 End: 11-26-2023 Patient encounter procedure [facility] Work Phone: Start: 11-23-2023 End: 11-23-2023 ambulatory ELLIE INGRAM Facility:[facility] Start: 11-09-2023 End: 11-09-2023 ambulatory ELLIE INGRAM Facility:[facility] Start: 10-25-2023 End: 10-25-2023 ambulatory ELLIE INGRAM Facility:[facility] Start: 10-21-2023 End: 10-21-2023 ambulatory ELLIE INGRAM Facility:[facility] Start: 10-13-2023 Non-patient / Non-visit MD Jesús Olmedo Work Phone: [facility] Work Phone: Start: 10-12-2023 End: 10-12-2023 ambulatory ELLIE INGRAM Facility:[facility] Start: 06-18-2023 End: 06-18-2023 ambulatory Dario Palacios Facility:[facility] Start: 06-18-2023 End: 06-18-2023 ambulatory CAR STARTER-C Ellie Ingram [facility] Work Phone: Start: 06-18-2023 End: 06-18-2023 Patient encounter procedure CAR STARTER-C Ellie Ingram [facility] [place] Work Phone: Start: 04-16-2023 End: 04-16-2023 ambulatory Kera Mccall Other [facility] Other Start: 04-16-2023 Office outpatient vi sit 25 minutes Kera Mccall [facility] Start: 02-24-2023 End: 02-24-2023 ambulatory Dario Olmedo Facility:[facility] Start: 02-24-2023 End: 02-24-2023 ambulatory CAR STARTER-C Ellie Ingram Work Phone: [facility] Work Phone: Start: 02-24-2023 End: 02-24-2023 Patient encounter procedure CAR STARTER-C Ellie Ingram Work Phone: [facility]-Sleep Lab Work Phone: Start: 02-02-2023 Follow-up encounter Clive Jamila [facility] Start: 02-02-2023 Telephone encounter Clive Jamila [facility] Start: 02-02-2023 End: 02-03-2023 ambulatory Ellie Ingram [facility] Other Start: 02-02-2023 Registered Recurring CAR STARTER-C Librado Ingram Work Phone: [facility]-Weight Management Work Phone: Start: 12-23-2022 Office outpatient ne w 30 minutes Dario Olmedo [facility] Start: 12-23-2022 End: 12-23-2022 ambulatory CAR STARTER-C Ellie Ingram Work Phone: [facility] Work Phone: Start: 12-23-2022 End: 12-23-2022 Patient encounter procedure CAR STARTER-C Ellie Ingram Work Phone: [facility]-Sleep Lab Work Phone: Start: 12-16-2022 End: 12-16-2022 ambulatory Serene Bustos Other [facility] Other Start: 12-16-2022 IBT for Obesity subQ 15 min (Max charge 2 units) Serene Bustos [facility] Start: 12-16-2022 Registered Recurring CAR STARTER-C Librado Ingram Work Phone: [facility]-Weight Management Work Phone: Start: 12-14-2022 (FCCCWMNF/U) Weight Management f/u [facility] Start: 12-14-2022 End: 12-14-2022 ambulatory [facility] Other [facility] Other Start: 12-14-2022 Telephone encounter [facility] Start: 12-01-2022 ([facility] WMNI) WMN Init ial Provider Serene Morenoblayne [facility] Start: 12-01-2022 End: 12-01-2022 ambulatory Serene Bustos Other [facility] Other Start: 11-07-2022 Office outpatient vi sit 15 minutes Ellie Ingram [facility] Start: 11-07-2022 End: 11-07-2022 ambulatory NON STAFF [facility] Work Phone: Start: 11-07-2022 End: 11-07-2022 Patient encounter procedure [facility] Work Phone: Start: 11-03-2022 End: 11-03-2022 Patient encounter procedure [facility] Work Phone: Start: 11-03-2022 End: 11-03-2022 ambulatory NON STAFF [facility] Work Phone: Start: 11-03-2022 Office outpatient vi sit 15 minutes Susana Ellis [facility] Start: 10-30-2022 [facility] Weight Management f/u Danya Carty [facility] Start: 10-30-2022 End: 10-30-2022 ambulatory Danya Carty Other [facility] Other Start: 10-30-2022 Registered Recurring [facility]-Weight Management Work Phone: Start: 10-29-2022 End: 10-29-2022 ambulatory Ellie Ingram Other [facility] Other Start: 10-29-2022 Office outpatient vi sit 15 minutes Ellie Ingram [facility] Start: 10-08-2022 End: 10-08-2022 Emergency department patient visit [facility]-Emergency Room Work Phone: Start: 10-06-2022 End: 10-06-2022 ambulatory Serene Fitt Other [facility] Other Start: 10-06-2022 IBT FOR OBESITY GROU P 2-10 30M Serene Josht [facility] Start: 10-06-2022 Registered Recurring [facility]-Weight Management Work Phone: Start: 10-01-2022 Office outpatient vi sit 15 minutes Elliedavid Ingram [facility] Start: 10-01-2022 End: 10-01-2022 ambulatory NON STAFF [facility] Work Phone: Start: 10-01-2022 End: 10-01-2022 Patient encounter procedure [facility] Work Phone: Start: 09-30-2022 End: 09-30-2022 ambulatory Danya Carty Other [facility] Other Start: 09-30-2022 Nutrition therapy Danya Carty [facility] Start: 09-30-2022 Registered Recurring [facility]-Weight Management Work Phone: Start: 09-25-2022 End: 09-25-2022 ambulatory Ellie Ingram Other [facility] Other Start: 09-25-2022 Telephone encounter Ellei cisneros [facility] Start: 09-23-2022 End: 09-23-2022 ambulatory Ellie Ingram Other [facility] Other Start: 09-23-2022 Telephone encounter Ellie cisneros [facility] Start: 09-21-2022 End: 09-22-2022 ambulatory ELLIE INGRAM Facility: Start: 09-20-2022 End: 09-20-2022 ambulatory Susana Ellis Other [facility] Other Start: 09-20-2022 Office outpatient vi sit 15 minutes Susanaarleen Ellis [facility] Start: 09-14-2022 End: 09-14-2022 ambulatory Elliedavid Ingram Other [facility] Other Start: 09-14-2022 Office outpatient vi sit 15 minutes Ellie Juan Jose [facility] Start: 09-10-2022 End: 09-10-2022 Emergency department patient visit [facility] Work Phone: Start: 09-10-2022 End: 09-10-2022 ambulatory Ellie Juan Jose Other [facility] Other Start: 09-10-2022 Patient encounter procedure Ellie Juan Jose [facility] Start: 09-07-2022 End: 09-07-2022 ambulatory Ellie Juan Jose Other [facility] Other Start: 09-07-2022 Telephone encounter Ellie Breludinl t [facility] Start: 08-27-2022 End: 08-27-2022 ambulatory Ellie Juan Jose Other [facility] Other Start: 08-27-2022 Office outpatient vi sit 15 minutes Ellie Juan Jose [facility] Start: 08-17-2022 End: 08-17-2022 ambulatory Ellie Juan Jose Other [facility] Other Start: 08-17-2022 Telephone encounter Ellie Breaul t [facility] Start: 07-30-2022 End: 07-30-2022 ambulatory Ellie Juan Jose Other [facility] Other Start: 07-30-2022 Office outpatient vi sit 15 minutes Ellienancy Ingram [facility] Start: 07-20-2022 End: 07-20-2022 ambulatory Elliedavid Ingram Other [facility] Other Start: 07-20-2022 Office outpatient vi sit 15 minutes Ellie Juan Jose [facility] Start: 07-10-2022 End: 07-10-2022 ambulatory Elliedavid Ingram Other [facility] Other Start: 07-10-2022 Telephone encounter Elliedavid Gerberl t [facility] [employer] [facility] Start: 07-02-2022 End: 07-02-2022 ambulatory Elliedavid Ignram Other [facility] Other Start: 07-02-2022 Office outpatient vi sit 15 minutes Ellie Juan Jose [facility] Start: 06-30-2022 End: 06-30-2022 ambulatory Elliedavid Ingram Other [facility] Other Start: 06-30-2022 Telephone encounter Elliedavid Gerberl t [facility] Start: 06-29-2022 End: 06-29-2022 ambulatory Pop Blandon Other [facility] Other Start: 06-29-2022 Office outpatient vi sit 15 minutes Pop Blandon [facility] [place] Start: 06-25-2022 End: 06-25-2022 ambulatory Elliedavid Ingram Other [facility] Other Start: 06-25-2022 Office outpatient vi sit 15 minutes Ellie Juan Jose [facility] Start: 06-22-2022 (Procedure) Kat Blandon [facility] Start: 06-22-2022 End: 06-22-2022 ambulatory Pop Blandon Other [facility] Other Start: 06-11-2022 End: 06-11-2022 ambulatory Ellie Juan Jose Other [facility] Other Start: 06-11-2022 Telephone encounter Elliedavid Gerberl t [facility] Start: 06-05-2022 End: 06-06-2022 ambulatory ELLIE JUAN JOSE Facility: Start: 06-01-2022 (Procedure) Short Pop Blandon [facility] Start: 06-01-2022 End: 06-01-2022 ambulatory Pop Jamia Other [facility] Other Start: 05-25-2022 End: 05-25-2022 ambulatory Ellie Juan Jose Other [facility] Other Start: 05-25-2022 Office outpatient vi sit 25 minutes Ellie Juan Jose [facility] Start: 05-21-2022 End: 05-21-2022 ambulatory Ellie Juan Jose Other [facility] Other Start: 05-21-2022 Office outpatient vi sit 15 minutes Ellie Juan Jose [facility] Start: 05-08-2022 End: 05-08-2022 ambulatory Ellie Juan Jose Other [facility] Other Start: 05-08-2022 Telephone encounter Elliedavid Gerberl t [facility] [facility] Start: 04-27-2022 End: 04-27-2022 ambulatory Ellie Juan Jose Other [facility] Other Start: 04-27-2022 Office outpatient vi sit 15 minutes Ellie Juan Jose [facility] Start: 04-22-2022 End: 04-22-2022 ambulatory Pop Blandon Other [facility] Other Start: 04-22-2022 Office outpatient vi sit 25 minutes Pop Blandon [facility] Start: 04-16-2022 End: 04-16-2022 ambulatory Pop Yazminshady Other [facility] Other Start: 04-16-2022 Telephone encounter Pop FISH [facility] Start: 04-13-2022 (Procedure) Short Pop Blandon [facility] Start: 04-13-2022 End: 04-13-2022 ambulatory Pop Arceshady Other [facility] Other Start: 04-06-2022 Office outpatient vi sit 15 minutes Ellienancy Ingram [facility] Start: 04-06-2022 End: 04-07-2022 ambulatory ELLIEDAVID INGRAM [facility] Other Start: 03-03-2022 End: 03-03-2022 ambulatory Elliedavid Ingram Other [facility] Other Start: 03-03-2022 Office outpatient vi sit 15 minutes Ellienancy Ingram [facility] Start: 01-28-2022 End: 01-28-2022 ambulatory Pop Blandon Other [facility] Other Start: 01-28-2022 Telephone encounter Pop FISH [facility] Start: 01-21-2022 End: 01-21-2022 ambulatory Pop Yazminshady Other [facility] Other Start: 01-21-2022 Telephone encounter Pop FISH [facility] Start: 01-15-2022 End: 01-15-2022 ambulatory Pop Yazminshady Other [facility] Other Start: 01-15-2022 Office outpatient vi sit 25 minutes Pop Blandon [facility] Start: 12-11-2021 End: 12-11-2021 ambulatory Pop Blandon Other [facility] Other Start: 12-11-2021 Office outpatient vi sit 25 minutes Pop Blandon [facility] Start: 12-03-2021 (Procedure) Short Pop Yazminshady [facility] Start: 12-03-2021 End: 12-03-2021 ambulatory Pop Blandon Other [facility] Other Start: 11-14-2021 End: 11-14-2021 ambulatory Pop Arceer Other [facility] Other Start: 11-14-2021 Telephone encounter Pop FISH Gret[facility] Start: 11-13-2021 End: 11-13-2021 ambulatory Pop Blandon Other [facility] Other Start: 11-13-2021 Office outpatient vi sit 25 minutes Pop Blandon [facility] Start: 11-06-2021 End: 11-06-2021 ambulatory Ellie Juan Jose Other [facility] Other Start: 11-06-2021 Office outpatient vi sit 15 minutes Ellie Juan Jose [facility] Start: 11-06-2021 Telephone encounter Edie Lewis [facility] Start: 10-29-2021 End: 10-29-2021 ambulatory Pop Yazminshady Other [facility] Other Start: 10-29-2021 Telephone encounter Pop FISH [facility] Start: 09-29-2021 End: 09-29-2021 ambulatory Pop Yazminshady Other [facility] Other Start: 09-29-2021 Office outpatient vi sit 25 minutes Pop Blandon [facility] Start: 09-25-2021 End: 09-25-2021 ambulatory Edie Singh Other [facility] Other Start: 09-25-2021 Telephone encounter Edie Lewis [facility] Start: 08-19-2021 End: 08-19-2021 ambulatory Edie Singh Other [facility] Other Start: 08-19-2021 Telephone encounter Edie Lewis [facility] [place] Start: 08-11-2021 End: 08-11-2021 ambulatory Edie Singh Other [facility] Other Start: 08-11-2021 Office outpatient vi sit 15 minutes Edie Singh [facility] [place] Start: 06-12-2021 Office outpatient vi sit 15 minutes Edie Singh [facility] [place] Start: 08-10-2020 End: 08-13-2020 Patient encounter procedure EDIE SINGH [facility] Start: 08-10-2020 End: 08-12-2020 Subsequent hospital visit by physician [facility] MRI Comment on above: Left elbow pain Procedures Date Procedure Procedure Detail Performing Clinician Start: 05-08-2025 Hemoglobin glycosyla aleksey a1c Anamika Celestin NP Work Phone: Start: 10-19-2024 [facility]yst[facility] Start: 07-31-2024 Ecg routine ecg w/le ast 12 lds w/i&r Martin Trinidad Larios MD Work Phone: Start: 01-19-2024 Adult depression screening assessment [facility] Lead Principal Technical Architect Start: 06-18-2023 MR lumbar spine wo con CAR STARTER-C Ellie Ingram Start: 01-01-2023 End: 01-01-2023 Mammography Naima Bates APRN-TRASH COLLECTOR SUPERVISOR Work Phone: Start: 11-07-2022 Plain X-ray of right hip Start: 11-03-2022 X-ray of right knee Start: 10-08-2022 Plain chest X-ray Start: 10-01-2022 Plain chest X-ray Start: 09-10-2022 Computed tomography of abdomen and pelvis with contrast Start: 11-26-2020 Microscopic observat ion [Identifier] in Cervix by Cyto stain Naima OLMOS Work Phone: Start: 08-10-2020 Mri any jt upper extremity w/o contrast john SINGH Start: 08-10-2020 Mri any jt upper extremity w/o contrast john Singh Work Phone: Spinal nerve structu re (body structure) YESENIA AVERY-CHRISTOPHER Plan of Treatment Date Care Activity Detail Author Start: 01-21-2026 ambulatory Ambulatory Facility:[facility] [place] Start: 11-06-2025 End: 11-06-2025 Patient encounter procedure 11/06/2025 10:00 AM EDT Office Visit ERYN Traore [address] [place] [phone] Anamika Celestin, OFFSHORING MANAGER [address] [place] [address] ER[facility] Start: 08-01-2025 End: 08-01-2025 Patient encounter procedure 08/01/2025 3:00 PM EST Office Visit [facility] [address] [place] [phone] Alexis Grace, BRUNO [address] [place] [address] [facility] Start: 05-31-2025 End: 05-31-2025 Patient encounter procedure 05/31/2025 1:15 PM EDT Office Visit [facility] Building [address] [place] [address] [address] [place] [phone] [place] [address] [facility] [address] [place] [address] [facility] Office Building Start: 05-08-2025 End: 05-08-2026 CBC panel - Blood by Automated count CBC Lab Routine Primary hypertension Expected: 05/08/2025 (Approximate), Expires: 05/08/2026 [facility] Work Phone: Comment on above: Expected: 05/08/2025 (Approximate), Expires: 05/08/2026 Start: 05-08-2025 End: 05-08-2026 Comprehensive metabolic 2000 panel - Serum or Plasma Comprehensive metabolic panel Lab Routine Primary hypertension Expected: 05/08/2025 (Approximate), Expires: 05/08/2026 [facility] Comment on above: Expected: 05/08/2025 (Approximate), Expires: 05/08/2026 Start: 05-08-2025 End: 05-08-2026 Cortisol Cortisol Lab Routine Weight gain Pain Expected: 05/08/2025 (Approximate), Expires: 05/08/2026 [facility] Comment on above: Expected: 05/08/2025 (Approximate), Expires: 05/08/2026 Start: 05-08-2025 End: 05-08-2026 Lipid 1996 panel - Serum or Plasma Lipid panel Lab Routine Lipid screening Expected: 05/08/2025 (Approximate), Expires: 05/08/2026 [facility] Comment on above: Expected: 05/08/2025 (Approximate), Expires: 05/08/2026 Start: 05-08-2025 End: 05-08-2026 RHEUMATOID ARTHRITIS DIAGNOSTIC PANEL 3 RHEUMATOID ARTHRITIS DIAGNOSTIC PANEL 3 Lab Routine Primary osteoarthritis involving multiple joints Pain Pain in other joint Expected: 05/08/2025 (Approximate), Expires: 05/08/2026 [facility] Comment on above: Expected: 05/08/2025 (Approximate), Expires: 05/08/2026 Start: 05-08-2025 End: 05-08-2026 Thyrotropin [Units/volume] in Serum or Plasma TSH Lab Routine Acquired hypothyroidism Expected: 05/08/2025 (Approximate), Expires: 05/08/2026 [facility] Comment on above: Expected: 05/08/2025 (Approximate), Expires: 05/08/2026 Start: 05-08-2025 End: 05-08-2025 Patient encounter procedure [facility] Arora León Comment on above: Arrived Start: 05-02-2025 End: 05-02-2025 Patient encounter procedure 05/02/2025 3:00 PM EDT Office Visit [facility] [address] [place] [phone] Alexis Grace DPM [address] [place], [place] [id number] [facility] Start: 04-30-2025 Influenza vaccination [facility] Start: 04-04-2025 End: 04-04-2026 Alanine aminotransferase [Enzymatic activity/volume] in Serum or Plasma ALT Lab Routine Onychomycosis Expected: 04/04/2025 (Approximate), Expires: 04/04/2026 [facility] Work Phone: Comment on above: Expected: 04/04/2025 (Approximate), Expires: 04/04/2026 Start: 04-04-2025 End: 04-04-2026 Aspartate aminotransferase [Enzymatic activity/volume] in Serum or Plasma AST Lab Routine Onychomycosis Expected: 04/04/2025 (Approximate), Expires: 04/04/2026 [facility] Comment on above: Expected: 04/04/2025 (Approximate), Expires: 04/04/2026 Start: 01-18-2025 Adult BMI Screening Adult BMI Screen ing [facility] Start: 01-18-2025 Depression Screening Depression Scre ening [facility] Start: 01-18-2025 Medicare Annual Well ness (AWV) Medicare Annual Wellness (AWV) [facility] Start: 01-18-2025 Tobacco Screening Tobacco Screening [facility] Start: 01-01-2025 Screening for malign ant neoplasm of breast Breast cancer screen [facility] Start: 11-30-2024 End: 11-30-2024 Patient encounter procedure 11/30/2024 2:00 PM EDT Office Visit [facility] [address] [place] [address] Martin Larios MD [address] [place] [address] [address] [place] [address] [facility] Start: 10-16-2024 End: 10-16-2024 Patient encounter procedure 10/16/2024 10:00 AM EST Office Visit [address] [place] [address] Martin Larios MD [address] [place] [address] [address] [place] [address] [facility] Start: 10-05-2024 End: 10-05-2024 Patient encounter procedure 10/05/2024 8:00 AM EST Appointment [address] [phone] [facility] Start: 08-09-2024 End: 08-09-2024 Patient encounter procedure 08/09/2024 3:30 PM EST Office Visit [facility] [address] [place] [phone] Dario Palacios DO [address] [place], [place] [phone] Arrived [facility] Comment on above: Arrived Start: 07-31-2024 End: 07-31-2026 Tilt table study [facility] Routine Postural dizziness with near syncope Expected: 07/31/2024 (Approximate), Expires: 07/31/2026 [facility] Service Area Work Phone: Comment on above: Expected: 07/31/2024 (Approximate), Expires: 07/31/2026 Start: 04-30-2024 Influenza vaccination N [facility] Start: 03-30-2024 Influenza vaccination Flu vacc ine (Season Ended) [facility] Start: 01-19-2024 End: 01-18-2025 DBT Breast - bilateral screening Mammography screening bilateral with CAD Imaging Routine Encounter for screening mammogram for malignant neoplasm of breast Expected: 01/19/2024, Expires: 01/18/2025 [facility] Work Phone: Comment on above: Expected: 01/19/2024 , Expires: 01/18/2025 Start: 01-19-2024 End: 01-19-2024 Patient encounter procedure 01/19/2024 10:00 AM EDT Office Visit [facility] [address] [place] [address] [facility] Start: 01-02-2024 Screening for malign ant neoplasm of breast Mammogram [facility] Start: 12-16-2023 Adult BMI Follow Up Plan Adult BMI Follow Up Plan [facility] Start: 12-16-2023 Adult BMI Screening Adult BMI Screen ing [facility] Start: 12-16-2023 Tobacco Screening Tobacco Screening [facility] Start: 11-27-2023 Screening for malign ant neoplasm of cervix Pap Smear [facility] Start: 04-30-2023 COVID-19 Vaccine ( season) COVID-19 Vaccine ( season) [facility] Start: 11-11-2021 Administration of varicella zoster vaccine Zoster (Shingles) Vaccine (1 of 2) [facility] Start: 11-11-2021 Shingles vaccine (1 of 2) Jones gles vaccine (1 of 2) [facility] Start: 11-11-2021 Zoster Vaccines (1 of 2) Zoste r Vaccines (1 of 2) [facility] Start: 04-30-2020 Influenza vaccination Flu vaccine (# 1) [facility] [place], [place] Start: 11-11-2016 Screening for malign ant neoplasm of [facility] Start: 2011 Lipid panel [facility] Start: 11-11-2006 Diabetes screen Diabetes screen [facility] Start: 11-11-2001 Screening for malign ant neoplasm of cervix [facility] Start: 11-11-1993 DTaP/Tdap/Td Vaccine s (1 - Tdap) DTaP/Tdap/Td Vaccines (1 - Tdap) [facility] Start: 11-11-1992 Screening for malign ant neoplasm of cervix [facility] Start: 11-11-1990 DTaP,Tdap and Td Vac cines (1 - Tdap) DTaP,Tdap and Td Vaccines (1 - Tdap) [facility] Start: 11-11-1990 DTaP/Tdap/Td vaccine (1 - Tdap) DTaP/Tdap/Td vaccine (1 - Tdap) [facility] Start: 11-11-1990 Hepatitis B Vaccines (1 of 3 - 19+ 3-dose series) Hepatitis B Vaccines (1 of 3 - 19+ 3-dose series) [facility] Start: 11-11-1990 Pneumococcal vaccination Pneum ococcal Vaccine (1 of 2 - PCV) [facility] Start: 11-11-1989 Diabetes mellitus screening Diabetes Screening [facility] Start: 11-11-1989 Hepatitis C screening [facility] Start: 11-11-1986 HIV screening HIV screen [facility] Start: 1983 Depression Screen Depression Screen [facility] Start: 1983 Depression Screening Depression Scre ening [facility] Start: 11-11-1976 COVID-19 Vaccine (#1) COVID-19 Vacci ne (#1) [facility] Start: 11-11-1972 MMR Vaccines (1 of 1 - Standard series) MMR Vaccines (1 of 1 - Standard series) [facility] Start: 1971 Annual wellness visit Welcome to Medicare Visit [facility] Start: 1971 Hepatitis B vaccine (1 of 3 - 3-dose series) Hepatitis B vaccine (1 of 3 - 3-dose series) [facility] Start: 1971 HIV screening HIV Screening [facility] Start: 1971 Lipid panel Lipid Panel [facility] Start: 1971 Screening for malign ant neoplasm of colon [facility] Healthcare Patient Education [facility] Work Phone: Patient referral [facility] Work Phone: End: 11-16-2024 Tilt table study [facility] Service Area Work Phone: Comment on above: Once for 1 Occurrenc es starting 11/16/2024 until 11/16/2024 Immunizations Immunization Date Immunization Notes Care Provider Donnie dewitt 06-06-2021 SARS-CoV-2 (COVID-19 ) mRNA BNT-162b2 vax YESENIA NKANSSNAPCARD-AMANKRA [facility] 05-15-2021 SARS-CoV-2 (COVID-19 ) mRNA BNT-162b2 vax YESENIA NKANSAH-AMANKRA 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 03-11-2021 Toradol 30 mg/ml Edie Wid ashli Other [facility] Other 03-11-2021 KENALOG - 10 mg Edie Widm er Other [facility] Other 02-17-2021 Toradol 30 mg/ml Edie Wid ashli Other [facility] Other 06-10-2020 Depo-Medrol 80 mg Edie Wi dmer Other [facility] Other 06-19-2019 Depo-Medrol 40 mg Edie Wi dmer Other [facility] Other 11-28-2018 Toradol per 15 mg Edie Wi dmer Other [facility] Other 11-28-2018 Depo-Medrol 80 mg Edie Wi dmer Other [facility] Other Payers Date Payer Category Payer Private Health Insurance [id number] 2024 Dual Eligibility Medicare/Medicaid Organization [facility] DUAL COMPLETE [id number] 2024 Private Health Insurance [id number] 2024 Medicare MEDICARE [id number] 2024 Medicare (Managed Care) 1.2. [id number] 2024 Private Health Insurance [id number] 2022 Medicaid [id number] 2022 Self-pay [id number] 2018 Unknown [id number] 1971 Unknown [id number] 2.16.840.1.313246.3.579.2 .175 1971 Unknown [id number] 2.16.840.1.206721.3.579.2 .593 1971 Unknown [id number] 2.16.840.1.275551.3.579.2 .593 1971 Unknown [id number] 2.16.840.1.948259.3.579.2 .593 1971 Unknown [id number] 2.16.840.1.027864.3.579.2 .1286 1971 Unknown [id number] 2.16.840.1.923260.3.579.2 .727 1971 Unknown [id number] 2.16.840.1.342243.3.579.2 .727 1971 Unknown [id number] 2.16.840.1.918106.3.579.2 .727 1971 Unknown [id number] 2.16.840.1.383460.3.579.2 .727 1971 Unknown [id number] 2.16.840.1.477212.3.579.2 .727 1971 Unknown [id number] 2.16.840.1.786381.3.579.2 .727 1971 Unknown [id number] 2.16.840.1.069025.3.579.2 .182 1971 Unknown [id number] 2.16.840.1.191437.3.579.2 .182 1971 Unknown [id number] 2.16.840.1.113776.3.579.2 .182 1971 Unknown [id number] 2.16.840.1.501544.3.579.2 .182 1971 Unknown [id number] 2.16.840.1.007770.3.579.2 .182 1971 Unknown [id number] 2.16.840.1.550388.3.579.2 .72 1971 Unknown [id number] 2.16.840.1.465914.3.579.2 .1971 Unknown [id number] 2.16.840.1.427708.3.579.2 .72 1971 Unknown [id number] 2.16.840.1.535074.3.579.2 1971 Unknown [id number] 2.16.840.1.087999.3.579.2 .72 1971 Unknown [id number] 2.16.840.1.888229.3.579.2 1971 Unknown [id number] 2.16.840.1.387737.3.579.2 1971 Unknown [id number] .840.1.557279.3.579.2 1971 Unknown [id number] 2.16840.1.539074.3.579.2 1971 Unknown [id number] .16840.1.096628.3.579.2 1971 Unknown [id number] 2.16840.1.810100.3.579.2 .1242 1971 Unknown [id number] 2.840.1.918859.3.579.2 .1243 1971 Unknown [id number] 2.16.840.1.807855.3.579.2 .1243 1971 Unknown [id number] 2.16.840.1.221163.3.579.2 1971 Unknown [id number] 2.16.840.1.350508.3.579.2 1971 Unknown [id number] 2.16.840.1.304695.3.579.2 .1259 1971 Unknown [id number] 2.16.840.1.184065.3.579.2 .1259 1971 Unknown [id number] 2.16.840.1.354393.3.579.2 .1259 1971 Unknown [id number] 2.16.840.1.204842.3.579.2 .1259 1959 Medicaid [id number] 2.0.1.796381.19 Medicaid [place] [id number] Unknown [id number] 2.0.1.893115.19 Unknown HCAP/HFA/FAP Active [id number] Unknown [facility] [id number] Unknown [id number] 2.840.1.578385.3.579.2 .531 Unknown [id number] 2.16840.1.530625.3.579.2 .531 Unknown [id number] 2.840.1.782800.3.579.2 .531 Unknown [id number] 2.840.1.281247.3.579.2 .531 Social History Date Type Detail Facility Tobacco smoking status NDIS Unknown if ever smoked [place], [place] Start: 1970 Sex Assigned At Not on file M [place], [place] Start: 07-31-2024 End: 05-08-2025 Sex Assigned At [facility] Start: 09-10-2022 End: 05-08-2025 Tobacco smoking status NHIS Never smoked tobacco (finding) [facility] Start: 1970 Sex Assigned At Female F [facility] Tobacco smoking status NDIS Tobacco smoking consumption unknown [facility] Start: 07-31-2024 End: 05-08-2025 Tobacco use and exposure Smokeless tobacco non-user [facility] Start: 07-31-2024 End: 05-02-2025 Alcoholic beverage intake Lifetime non-drinker (finding) [facility] Work Phone: Start: 07-31-2024 End: 05-08-2025 [facility] Start: 07-21-2024 End: 11-30-2024 Exposure to SARS-CoV-2 (event) Not sure [facility] Start: 01-01-2023 End: 05-08-2025 Alcoholic beverage intake Current drinker of alcohol (finding) [facility] Start: 03-28-2020 Alcohol Comment [facility] [employer] [facility] Sexual Orientation [facility] Start: 12-02-2022 Sex Female (finding) [facility] NEGATED: Highlighted rowStart: NINF History of tobacco use Passive smoker [facility] Medical Equipment Procedure Code Equipment Code Equipment Origin al Text Equipment Identifier Dates Start: 09-30-2022 CYSTOSCOPY W/ HO MIUM LASER YESENIA YUSUF MD 10/19/24 Unknown Ureter R FDA Start: 10-19-2024 CYSTOSCOPY W/ HO MIUM LASER TREVOR RAMIREZ, YESENIA 10/19/24 Unknown Ureter R FDA Start: 10-19-2024 CYSTOSCOPY W/ HO MIUM LASER TREVOR RAMIREZ, YESENIA 10/19/24 Unknown Ureter R FDA Start: 10-19-2024 Functional Status Date Assessment Result Facility 05-08-2025 Patient Health Quest ionnaire 2 item (PHQ-2) [Reported] [facility] 10-12-2024 Functional Status No [facility] 10-09-2024 Functional Status N/A [facility] Clinical Notes 06-12-2021 to 05-08-2025 Anamika Celestin, FABRICIO - 05/08/2025 10:00 AM Ye Grace DPM - 05/02/2025 3:00 PM EDTTelephone Encounter - Alexis Grace DPM - 04/04/2025 8:42 AM EDT Note Date & Type Note Facility 05-08-2025 History of Present illness Narrative Images from the original note were not included. Subjective Patient ID: Joselito Vidal is a 54 y.o. female who presents to establish care. Joselito presents today to establish care with a PCP. She does see pain management and they would like for her to have lab work done. She would like a referral for PT for all over pain. Over the past 2 weeks, how often have you been bothered by any of the following problems? Little interest or pleasure in doing things: Not at all Feeling down, depressed, or hopeless: Not at all Patient Health Questionnaire-2 Score: 0 Current Outpatient Medications on File Prior to Visit Medication Sig Dispense Refill cqzdawvafp-pxqceueljjurm-vjxcjcpu 50-325-40 MG tablet Take 1 tablet by mouth every 4 (four) hours if needed for headaches cetirizine (ZyrTEC) 10 MG tablet Take 10 mg by mouth Daily (Patient not taking: Reported on 05/02/2025) DULoxetine (Cymbalta) [address] capsule Take 60 mg by mouth in the morning and 60 mg before bedtime. Do not crush or chew. (Patient not taking: Reported on 05/02/2025) empagliflozin (Jardiance) 25 MG Take 25 mg by mouth Daily fludrocortisone (Florinef) 0.1 MG tablet Take by mouth gabapentin (Neurontin) 400 MG capsule Take 400 mg by mouth in the morning and 400 mg in the evening and 400 mg before bedtime. (Patient not taking: Reported on 05/02/2025) hydrOXYzine HCl (Atarax) 50 MG tablet Take 50 mg by mouth every 8 (eight) hours if needed for itching (Patient not taking: Reported on 05/02/2025) metoprolol tartrate (Lopressor) 25 MG tablet Take 25 mg by mouth in the morning and 25 mg before bedtime. midodrine (Proamatine) 2.5 MG tablet Take 2.5 mg by mouth in the morning and 2.5 mg in the evening and 2.5 mg before bedtime. ondansetron (Zofran) 8 MG tablet Take 8 mg by mouth every 8 (eight) hours if needed for nausea or vomiting (Patient not taking: Reported on 03/28/2025) Ozempic, 0.25 or 0.5 MG/DOSE, 2 MG/3ML solution pen-injector INJECT 0.25mg SUBCUTANEOUSLY (UNDER THE SKIN) ONCE A WEEK pantoprazole (ProtoNix) 20 MG EC tablet Take 20 mg by mouth in the morning. Take before meals. Do not crush, chew, or split. spironolactone (Aldactone) 25 MG tablet Take 25 mg by mouth Daily (Patient not taking: Reported on 03/28/2025) terbinafine (LamISIL) 250 MG tablet Take 1 tablet (250 mg) by mouth Daily 90 tablet 0 tiZANidine (Zanaflex) 4 MG capsule Take 4 mg by mouth in the morning and 4 mg in the evening and 4 mg before bedtime. topiramate (Topamax) 25 MG tablet Take 25 mg by mouth in the morning and 25 mg before bedtime. [DISCONTINUED] Dulaglutide (Trulicity) 3 MG/0.5ML solution auto-injector Inject under the skin (Patient not taking: Reported on 05/02/2025) No current facility-administered medications on file prior to visit. I have reviewed and reconciled the history and medication list with the patient today. No Known Allergies Social History Tobacco Use Smoking status: Never Passive exposure: Never Smokeless tobacco: Never Vaping Use Vaping status: Never Used Substance Use Topics Alcohol use: Yes Alcohol/week: 1.0 standard drink of alcohol Types: 1 Glasses of wine per week Drug use: Never No family history on file. Past Medical History: Diagnosis Date JOSE (acute kidney injury) Anxiety Headache Hypertension Obesity Past Surgical History: Procedure Laterality Date KIDNEY STONE SURGERY 09/2024 Visit Vitals Smoking Status Never Review of Systems Constitutional: Negative. HENT: Negative. Eyes: Negative. Respiratory: Negative. Cardiovascular: Negative. Gastrointestinal: Negative. Genitourinary: Negative. Musculoskeletal: Positive for arthralgias, back pain, joint swelling and myalgias. Skin: Negative. Neurological: Negative. Psychiatric/Behavioral: Negative. Endocrine: Negative. Objective Physical Exam Vitals reviewed. Constitutional: Appearance: Normal appearance. HENT: Head: Normocephalic. Right Ear: A middle ear effusion is present. Left Ear: A middle ear effusion is present. Nose: Nose normal. Mouth/Throat: Mouth: Mucous membranes are moist. Pharynx: Oropharynx is clear. Postnasal drip present. Eyes: Conjunctiva/sclera: Conjunctivae normal. Pupils: Pupils are equal, round, and reactive to light. Cardiovascular: Rate and Rhythm: Normal rate and regular rhythm. Pulmonary: Effort: Pulmonary effort is normal. Breath sounds: Normal breath sounds. Abdominal: General: Bowel sounds are normal. Palpations: Abdomen is soft. Musculoskeletal: General: Tenderness present. Cervical back: Neck supple. Skin: General: Skin is warm and dry. Neurological: General: No focal deficit present. Mental Status: She is alert and oriented to person, place, and time. Psychiatric: Mood and Affect: Mood normal. Behavior: Behavior normal. Thought Content: Thought content normal. Judgment: Judgment normal. Assessment/Plan Diagnoses and all orders for this visit: Primary insomnia - topiramate 50 MG tablet; Take 50 mg by mouth Daily If medication is ineffective x 3 days then may increase to 100mg-2tabs This is a chronic medical condition that is stable since last assessment. No changes in treatment are suggested at this time. Lipid screening - Lipid panel; Future Await lab Primary hypertension - CBC; Future - Comprehensive metabolic panel; Future Patient's blood pressure is currently well controlled. Continue with current medications and I will continue to monitor. Goal BP remains less than 130/80. Acquired hypothyroidism - TSH; Future This is a chronic medical condition that is stable since last assessment. No changes in treatment are suggested at this time. Other depression Medication as directed. Verbalizes understanding of the need to be seen in the ER for suicidal/homicidal ideation, excessive stress, elevated blood pressure or palpitations. Pt offers understanding of treatment plan. I discussed the side effects of the medications described and to seek medical care if they arise. Discussed stress mgmt strategies, social support and importance of healthy diet, exercise and regular sleep habits. Advised on relaxation methods to decrease anxiety and depression. Stage 1 chronic kidney disease - POCT glycosylated hemoglobin (Hb A1C) docked device This is a chronic medical condition that is stable since last assessment. No changes in treatment are suggested at this time. Primary osteoarthritis involving multiple joints - RHEUMATOID ARTHRITIS DIAGNOSTIC PANEL 3; Future Await lab Weight gain - Cortisol; Future - POCT glycosylated hemoglobin (Hb A1C) docked device Await lab Pain - Cortisol; Future - RHEUMATOID ARTHRITIS DIAGNOSTIC PANEL 3; Future - Ambulatory referral to Physical Therapy; Future - methylPREDNISolone (Medrol Dospak) 4 MG tablets; Follow schedule on package instructions Take medication as ordered for joint pain Pain in other joint - RHEUMATOID ARTHRITIS DIAGNOSTIC PANEL 3; Future Await lab Acute non-recurrent frontal sinusitis - azithromycin (Zithromax) 250 MG tablet; Take 2 tablets (500 mg) by mouth Daily for 1 day, THEN 1 tablet (250 mg) Daily for 4 days. Start the above as directed. Reviewed potential s/e with patient. Encouraged probiotic while on antibiotic. Increase water intake, get plenty of rest. Can take OTC allergy medication for symptomatic relief. Tylenol/Motrin prn. Follow up if no improvement in one week. Morbid (severe) obesity due to excess calories ([facility]) Discussed goal of BMI < 30. Advised on weight loss options. Encouraged diet and exercise. Discussed with patient appropriate lifestyle modification changes necessary for weight management, heart healthy eating and overall health promotion. Discussed minimizing high carb, high sugar, high sodium, portion control, and processed foods while making healthy choice replacements. Additionally discussed recommendations of 30 minutes of aerobic exercise at least 5 days per week, that includes, walking, and chair exercises. . Instructed importance of drinking adequate water consumption (if not on fluid restriction) with minimal sugar and caffiene. Obesity, class 3 Discussed goal of BMI < 30. Advised on weight loss options. Encouraged diet and exercise. Discussed with patient appropriate lifestyle modification changes necessary for weight management, heart healthy eating and overall health promotion. Discussed minimizing high carb, high sugar, high sodium, portion control, and processed foods while making healthy choice replacements. Additionally discussed recommendations of 30 minutes of aerobic exercise at least 5 days per week, that includes, walking, and chair exercises. . Instructed importance of drinking adequate water consumption (if not on fluid restriction) with minimal sugar and caffiene. Body mass index (BMI) 45.0-49.9, adult ([facility]) Discussed goal of BMI < 30. Advised on weight loss options. Encouraged diet and exercise. Discussed with patient appropriate lifestyle modification changes necessary for weight management, heart healthy eating and overall health promotion. Discussed minimizing high carb, high sugar, high sodium, portion control, and processed foods while making healthy choice replacements. Additionally discussed recommendations of 30 minutes of aerobic exercise at least 5 days per week, that includes, walking, and chair exercises. . Instructed importance of drinking adequate water consumption (if not on fluid restriction) with minimal sugar and caffiene. Major depressive disorder, single episode, in full remission Medication as directed. Verbalizes understanding of the need to be seen in the ER for suicidal/homicidal ideation, excessive stress, elevated blood pressure or palpitations. Pt offers understanding of treatment plan. I discussed the side effects of the medications described and to seek medical care if they arise. Discussed stress mgmt strategies, social support and importance of healthy diet, exercise and regular sleep habits. Advised on relaxation methods to decrease anxiety and depression. No follow-ups on file. documented in this encounter [facility] 05-02-2025 History of Present illness Narrative Images from the original note were not included. Subjective Patient ID: Joselito Vidal is a 54 y.o. female who presents for Plantar Warts (Joselito Vidal is a 54 y.o. female. presents today for FUV plantar wart on left foot. Patient states wart is better. Patient relates she has started Lamisil forfungal nails with 4th and 5th digits with right foot.). HPI Established patient returns to clinic for follow up evaluation of plantar wart, left foot. Patient had single chemical cauterization treatment with significant improvement. She no longer has any tenderness over the area of the skin seems to have normalized. Review of Systems Constitutional: Negative for activity change and appetite change. Respiratory: Negative for chest tightness and shortness of breath. Cardiovascular: Negative for chest pain. Musculoskeletal: Positive for arthralgias. Negative for gait problem. Skin: Negative for color change and wound. Neurological: Negative for weakness and numbness. Psychiatric/Behavioral: Negative for agitation and behavioral problems. Hematological: Does not bruise/bleed easily. Endocrine: Negative for cold intolerance and heat intolerance. Allergic/Immunologic: Negative for immunocompromised state. Past medical History No past medical history on file. Medications Current Outpatient Medications: Ozempic, 0.25 or 0.5 MG/DOSE, 2 MG/3ML solution pen-injector, INJECT 0.25mg SUBCUTANEOUSLY (UNDER THE SKIN) ONCE A WEEK, Disp: , Rfl: obxengcwqx-hiuhrkqyojmnl-ucwtlcog 50-325-40 MG tablet, Take 1 tablet by mouth every 4 (four) hours if needed for headaches, Disp: , Rfl: cetirizine (ZyrTEC) 10 MG tablet, Take 10 mg by mouth Daily (Patient not taking: Reported on 05/02/2025), Disp: , Rfl: DULoxetine (Cymbalta) [address] capsule, Take 60 mg by mouth in the morning and 60 mg before bedtime. Do not crush or chew. (Patient not taking: Reported on 05/02/2025), Disp: , Rfl: empagliflozin (Jardiance) 25 MG, Take 25 mg by mouth Daily, Disp: , Rfl: fludrocortisone (Florinef) 0.1 MG tablet, Take by mouth, Disp: , Rfl: gabapentin (Neurontin) 400 MG capsule, Take 400 mg by mouth in the morning and 400 mg in the evening and 400 mg before bedtime. (Patient not taking: Reported on 05/02/2025), Disp: , Rfl: hydrOXYzine HCl (Atarax) 50 MG tablet, Take 50 mg by mouth every 8 (eight) hours if needed for itching (Patient not taking: Reported on 05/02/2025), Disp: , Rfl: metoprolol tartrate (Lopressor) 25 MG tablet, Take 25 mg by mouth in the morning and 25 mg before bedtime., Disp: , Rfl: midodrine (Proamatine) 2.5 MG tablet, Take 2.5 mg by mouth in the morning and 2.5 mg in the evening and 2.5 mg before bedtime., Disp: , Rfl: ondansetron (Zofran) 8 MG tablet, Take 8 mg by mouth every 8 (eight) hours if needed for nausea or vomiting (Patient not taking: Reported on 03/28/2025), Disp: , Rfl: pantoprazole (ProtoNix) 20 MG EC tablet, Take 20 mg by mouth in the morning. Take before meals. Do not crush, chew, or split., Disp: , Rfl: spironolactone (Aldactone) 25 MG tablet, Take 25 mg by mouth Daily (Patient not taking: Reported on 03/28/2025), Disp: , Rfl: terbinafine (LamISIL) 250 MG tablet, Take 1 tablet (250 mg) by mouth Daily, Disp: 90 tablet, Rfl: 0 tiZANidine (Zanaflex) 4 MG capsule, Take 4 mg by mouth in the morning and 4 mg in the evening and 4 mg before bedtime., Disp: , Rfl: topiramate (Topamax) 25 MG tablet, Take 25 mg by mouth in the morning and 25 mg before bedtime., Disp: , Rfl: Allergies Patient has no [...] of the toenails. Left foot: Verrucous lesion seems to have resolved. Skin lines have normalized. No pinpoint, thrombosed capillaries. Neurological: General: No focal deficit present. Mental Status: She is alert. Psychiatric: Mood and Affect: Mood normal. Behavior: Behavior normal. Assessment/Plan ICD-10-CM 1. Plantar wart B07.0 Patient examined and evaluated. Plantar wart responded very well to chemical cauterization. She has had complete resolution of verrucous tissue. I recommend closely monitoring the area to evaluate for recurrence. She will call if she notices any recurrent verrucous tissue. Follow up as needed for this issue. In regards to the Lamisil she will continue this medication to completion. I did debride the 4th and 5th nails on the right foot per her request today. We will monitor for fungal clearance. Follow up 3 months for Lamisil follow up. This note was created with the assistance of a speech recognition program. While intending to generate a timely document that accurately reflects the content of the visit, no guarantee can be provided that every grammatical or spelling mistake has been or will be identified or corrected. Thank you for your understanding. Alexis Grace DPM documented in this encounter [facility] 04-04-2025 Telephone encounter Note Nail specimen consistent with onychomycosis. Liver enzyme test ordered and sent to [facility]. Thank you. [facility] 04-04-2025 Miscellaneous Notes Nail specimen consistent with onychomycosis. Liver enzyme test ordered and sent to [facility]. Thank you. documented in this encounter [facility] 03-28-2025 History of Present illness Narrative Images from the original note were not included. Subjective Patient ID: Joselito Vidal is a 54 y.o. 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 Medications Current Outpatient Medications: tmfakwtfvw-jxpqjtignnwap-cjknanzy 50-325-40 MG tablet, Take 1 tablet by mouth every 4 (four) hours if needed for headaches, Disp: , Rfl: cetirizine (ZyrTEC) 10 MG tablet, Take 10 mg by mouth Daily, Disp: , Rfl: Dulaglutide (Trulicity) 3 MG/0.5ML solution auto-injector, Inject under the skin, Disp: , Rfl: DULoxetine (Cymbalta) [address] capsule, Take 60 mg by mouth in [...] therapy. A nail nipper and electric bur knife grinder were also utilized to debride the affected nails to help reduce fungal load and to palliate the symptomatic nails. I will review the nail specimen and if there is fungal disease present I will order liver enzyme tests to [facility] in [place] to ensure adequate liver function prior to [...] Alexis Grace DPM documented in this encounter [facility] 11-30-2024 History of Present illness Narrative [facility] Card[facility] Office Follow-up: Dizziness, Syncope, Follow-up, and [...] Martin Larios MD Director of Interventional Cardiology [facility] documented in this encounter [facility] Work Phone: 11-16-2024 Miscellaneous Notes Physician Transition of Care Summary Invasive Cardiovascular Lab Procedure Date: 11/16/2024 Attending: * No surgeons found in log * Resident/Fellow/Other Management Consulting: * No surgeons found in log * [...] 11/16/2024 2:14 PM documented in this encounter [facility] Work Phone: 11-16-2024 Surgery Postoperative evaluation and management note Physician Transition of Care Summary Invasive Cardiovascular Lab Procedure Date: 11/16/2024 Attending: * No surgeons found in log * Resident/Fellow/Other Management Consulting: * No surgeons found in log * [...] by: Scott Bridges MD, 11/16/2024 2:14 PM [facility] Work Phone: 11-14-2024 Note Patient Education Nephrology [...] ? 8 oz (237 mL) of milk, kikowrc-oylelcfzppsr-tobne milk, and calcium-fortifiedfruit juice. Calcium-fortified means that [...] Spinach (cooked), rhubarb, beets, sweet potatoes, and Martiniquais chard. ? Peanuts. ? Potato chips, turkish fries, and baked potatoes with skin on. ? Nuts and nut products. ? Chocolate. ??? If you regularly take a diuretic medicine, make sure to eat at least 1 or 2 servings of fruits or vegetables that are high in potassium each day. These include: ? Avocado. ? Banana. ? [place], prune, carrot, or tomato juice. ? Baked [...] fish oil, or vitamin B6. ??? Take qpbv-sqh-hqyganl and prescription medicines only as told by your health (more content not included)... [facility] 10-23-2024 Note Progress Note-Physic charo Patient: JOSELITO VIDAL Age: 53 years Sex: Female : 1970 Associated Diagnoses: None Author: Hernandez Billings MD Postoperative Information Postoperative disposition: Postoperative disposition: To PACU. Optimetrix number: Optimetrix number [id number]. Anesthetic utilized: General. Health Status Allergies: Allergic Reactions (Selected) No Known Medication Allergies Physical Examination VS/Measurements Pain Assessment: Controlled. General: Awake, Appropriate. Respiratory: Adequate air exchange. Cardiovascular: Stable. Neurological Assessment Anesthetic outcome No anesthetic complications noted. Adequate pain relief. Review / Management Condition: Stable. Plan Transfer/Discharge: Transfer/Discharge Discharge when meets criteria ( To home ). [facility] Comment on above: Result Comment: Elec tronically [...] Daily, # 10 cap(s), Refills(s) 0, Pharmacy: [facility], 157, cm, 10/12/24 13:52:00 EST, Height/Length Dosing, 116, kg, 10/12/24 13:52:00 EST, Weight Dosing Levsin 0.125 mg SL Tab: 0.125 mg = 1 tab(s), Oral, QID, PRN for spasm, # 40 tab(s), Refills(s) 0, Pharmacy: [facility], 157, cm, 10/12/24 13:52:00 EST, Height/Length Dosing, 116, kg, 10/12/24 13:52:00 EST, Weight Dosing Roxicodone 5 mg Tab: 5 mg = 1 tab(s), Oral, q6hr, PRN for pain, # 6 tab(s), Refills(s) 0, Pharmacy: [facility], 157, cm, 10/12/24 13:52:00 EST, Height/Length [...] All Problems Apnea, sleep / SNOMED CT [id number] / Confirmed Arthritis of right kne (more content not included)... [facility] Comment on above: Result Comment: Elec tronically Signed By: Manuelito RAMIREZ, Hernandez Leavitt\.manoj\Date and Time Signed: 10/23/24 15:07 EST 10-19-2024 Hospital Discharge instructions Patient Education 10/19/2024 13:35:23 Xplt-Nyda-ez Utereroscopy,Lithotripsy, Stone Extraction, Stent Placement (CUSTOM) [facility] [place], [place] Dr. Bradford Hagen Post-operative Instructions for [...] reasons. 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 Bradford Hagen Post-operative Instructions for [...] other reasons. If it is to remain [facility], however, changes of the stent are required [...] arrange for your post-operative appointment (with XRAY) [phone] [facility] 10-09-2024 Hospital Discharge instructions Patient Education 10/09/2024 [...] including vitamins, herbs, eye drops, creams, and nlid-bes-zpnhgxb medicines. Any problems you or family members [...] health care provider tells you to. Taking hkcf-vsl-uobqbng medicines, vitamins, herbs, and supplements. General instructions [...] provider. Document Revised: 07/19/2023 Document Reviewed: 07/19/2023 [employer] Patient Education 2023 [employer]. Follow Up Care 10/06/2024 15:52:25 With:TREVOR RAMIREZ, DEAN PATTERSON Address: When: Unknown [facility] 10-09-2024 Note Patient Education Urology Ureteroscopy Ureteroscopy [...] including vitamins, herbs, eye drops, creams, and qvrr-ixr-zgjmmcm medicines. ??? Any problems you or family [...] care provider tells you to. ??? Taking qaav-qel-jsudfad medicines, vitamins, herbs, and supplements. General instructions [...] after the procedure? (more content not included)... [facility] 08-09-2024 History of Present illness Narrative Images from the original note were not included. Chief complaint: Back pain Subjective Joselito Vidal, 53 y.o., female Patient presents today for a follow up for impaired ambulation and lumbosacral spondylosis. Patient went to pain management in [place] and states they were not able to [...] on her walker. 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 She cannot walk long distances [...] , wrist extensors , wrist flexor , screw machine tender strength 5/5. LUE Strength deltoid , biceps , triceps , wrist extensors , wrist flexor , screw machine tender strength 5/5. RLE Strength illopsoas, quadriceps, tibialis [...] sensation intact in distal extremities. Cerebellar Function: Xcjakf-xy-Ezoh Normal. Gait and Station: Gait Ambulates with [...] discontinued this. She has trialed and failed sztk-ijn-lvojroc medication with ibuprofen and Tylenol at appropriate [...] has been previously seen pain management in [place] but is unable to access them as regularly as needed. Polypharmacy The patient is still on an extensive list of medications. It is my impression that the patient should wean off of some of these medications as she continues to have chronic pain in spite of multiple EXECUTIVE CHEF depressant medications.. She states many of these [...] She was previously seen pain management in [place] but with driving so far and with injections lasting so sure she is having difficulty getting there as frequently is as needed. Pt has been fully educated on their diagnosis, lab results, treatment options, follow up plan, return instructions, and discussion of mental health issues documented in this encounter [facility] 07-31-2024 History of Present illness Narrative Patient presents for cardiovascular evaluation in the [place] office at the request of AMARILIS Schmidt for the following: Chief Complaint: New Patient Visit HISTORY OF PRESENT ILLNESS: Joselito Vidal is a 53 y.o. female with prior cardiac history of POTS. Other pertinent medical history includes spinal stenosis. Patient reports symptoms of feeling overheated and dizzy. Off balance, was seen at [facility]. Was diagnosed with POTS clinically. Started on metoprolol. Holter subsequently. In general patient reports pain. Palpitations, hot, dizzy. Food can trigger. Getting up quickly. No syncope, but has had near syncope. Patient decribes no chest pain. 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 The patient also reports [...] tablet 1 tablet, Every 12 hours scheduled (30,1830) Jardiance 25 mg 1 tablet, Daily (629) methylPREDNISolone (MEDROL DOSPAK) 4 mg, Once metoprolol tartrate (LOPRESSOR) 25 mg, 2 times daily (morning and late afternoon) nitrofurantoin, macrocrystal-monohydrate, (Macrobid) 100 mg capsule 100 mg, Every 12 hours ondansetron ODT (ZOFRAN-ODT) 4 mg, Every 8 hours PRN ondansetron ODT (ZOFRAN-ODT) 8 mg, Every 8 hours PRN Oysco 500/D 500 mg-5 mcg (200 unit) tablet 1 tablet, Every 12 hours scheduled (629,1829) pantoprazole (PROTONIX) 20 mg, Daily predniSONE (Deltasone) [...] Martin Larios MD documented in this encounter [facility] Work Phone: 02-15-2024 History of Present illness [...] Doing physical therapy and aquatic therapy at [facility]. No other test therapy or updates from [...] Assessment: Lumbar spondylosis + SHARMILA working on getting new machine Plan: Periodic Controlled Substance Monitoring: [...] Refill: 0 Orders Placed This Encounter Procedures MD DSTR NROLYTC AGNT PARVERTEB FCT SNGL LMBR/SACRAL [...] She declines Bariatric surgery evaluation -Reviewed EMG Alexander ARCE above from [facility], all questions answered -Will continue [...] cord stimulation at this time, previously given [facility] information, Psych for evaluation on hold. -Underwent [...] previously recommended by us or other medical doctor nuclear medicine. Risks of not pursing these recommendations were [...] L3 [x] L4 [] Left [x] L5 [address] [place] [address], [address] [id number] / documented in this encounter [facility] 01-19-2024 History of Present illness Narrative Images from the original note were not included. Joselito Vidal is a 53 y.o. female who presents for annual precision lens centerer and edger exam. 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 Hysterectomy: no She [...] spot. She was then seen by a road traffic controller for an area on her face and [...] Past Medical History: Diagnosis Date Diabetes mellitus ([facility]) Hypertension POTS (postural orthostatic tachycardia syndrome) Spinal [...] right leg - Ambulatory referral to Dermatology ([facility]); Future Next pap due 2025. Discussed ASCCP [...] postmenopausal, is stopping POPs. RTO for annual precision lens centerer and edger exam and / or PRN. AMARILIS Meek APRN-CNP 01/19/24 1537 documented in this encounter [facility] 01-02-2024 Miscellaneous Notes Patient needs annual (12/15/22). One refill sent. Please call and get her scheduled. Thank you. Pt has Annual scheduled for January 18. documented in this encounter [facility] 01-02-2024 Telephone encounter Note Patient needs annual (12/15/22). One refill sent. Please call and get her scheduled. Thank you. [facility] 01-02-2024 Telephone encounter Note Pt has Annual scheduled for January 18. [facility] 12-15-2023 Miscellaneous Notes Patient due for annual (12/15/22). One refill sen. Pt has Annual exam scheduled for January 18. documented in this encounter [facility] 12-15-2023 Telephone encounter Note Patient due for annual (12/15/22). One refill sen. [facility] 12-15-2023 Telephone encounter Note Pt has Annual exam scheduled for January 18. [facility] 04-16-2023 Evaluation note Encounter Date Diagnosis [...] Zyrtec/Claritin daily. Recommended patient follow-up over to [facility] for follow-up appointment with PCP to discuss next steps. Patient verbalizes understanding and is agreeable with treatment plan [facility] Other 06-06-2023 Evaluation note* Encounter Date Diagnosis Assessment Notes Treatment Notes Treatment Clinical Notes Jan, Prediabetes (ICD-10 - R73.03) Jan, Body mass index (BMI ) of 45.0-49.9 in adult (ICD-10 - Z68.42) Jan, Hypertension (ICD-10 - I10) Jan, Obstructive sleep apnea (ICD-10 - G47.33) Jan, Knee osteoarthritis (ICD-10 - M17.9) Jan, Metabolic syndrome X (ICD-10 - E88.81) [facility] Other 04-26-2023 Evaluation note* Encounter Date Diagnosis Assessment Notes Treatment Notes Treatment Clinical Notes Nov, Obstructive sleep apnea (ICD-10 - G47.33) Nov, Morbid (severe) obesity due to excess calories (ICD-10 - E66.01) [facility] Other 04-19-2023 Evaluation note* Encounter Date Diagnosis [...] following goals: - explore exercise options: [employer], [place] [place] [employer], and home execises; PARTIALLY MET - add more veggies - PARTIALLY MET [facility] Other 04-17-2023 Evaluation note* Encounter Date Diagnosis [...] Encounter for weight management (ICD-10 - Z76.89) [facility] Other 04-04-2023 Evaluation note* Encounter Date Diagnosis [...] goals: - NEW: explore exercise options: [employer], [employer] [place] [employer], and home [employer] - NEW: add more veggies [facility] Other 03-11-2023 Evaluation note* Encounter Date Diagnosis [...] hip pain may be exacerbated by knee [facility] Other 03-07-2023 Evaluation note* Encounter Date Diagnosis [...] no improvement in 2 to 3 days. [facility] Other 03-03-2023 Evaluation note* Encounter Date Diagnosis [...] routine Strongly encouraged to connect with our cook's assistant for exercises she is able to do [...] Encounter for weight management (ICD-10 - Z76.89) [facility] Other 03-02-2023 Evaluation note* Encounter Date Diagnosis [...] (ICD-10 - J32.4) Take medication as directed. [facility] Other 02-07-2023 Evaluation note* Encounter Date Diagnosis [...] patient set personal goal using given handout. [facility] Other 02-02-2023 Evaluation note* Encounter Date Diagnosis [...] (ICD-10 - F41.1) Continue current treatment program [facility] Other 02-01-2023 Evaluation note* Encounter Date Diagnosis [...] discuss other options through menopause with her OUTREACH LIAISON. Optimize sleep quality and quantity using good [...] the week. Encouraged to take advantage of cook's assistant available at [facility] that can help work around limitations. [...] prevent diabetes. Consider metformin or GLP-1 agonist. [facility] Other 01-22-2023 Evaluation note* Encounter Date Diagnosis [...] no improvement in 2 to 3 days [facility] Other 01-16-2023 Evaluation note* Encounter Date Diagnosis [...] then have labs rechecked the day after [facility] Other 01-12-2023 Evaluation note* Encounter Date Diagnosis Assessment Notes Treatment Notes Treatment Clinical Notes Aug, Urine retention (ICD-10 - R33.9) very concerned patient is having symptoms of neurogenic bladder due to symptoms occuring after a recent fall. Recommend patient go to ER due to inability to urinate and she has not urinated since yesterday evening. [facility] Other 12-29-2022 Evaluation note* Encounter Date Diagnosis Assessment Notes Treatment Notes Treatment Clinical Notes Jul, LACEY (generalized anxiety disorder) (ICD-10 - F41.1) Jul, Other low back pain (ICD-10 - M54.59) Jul, Insomnia, unspecified type (ICD-10 - G47.00) Jul, Other spondylosis with radiculopathy, lumbar region (ICD-10 - M47.26) MME is 9.7 per day and OARRS is checked. Jul, Skin lesion (ICD-10 - L98.9) [facility] Other 12-19-2022 Evaluation note* Encounter Date Diagnosis Assessment Notes Treatment Notes Treatment Clinical Notes Jul, Other spondylosis with radiculopathy, lumbar region (ICD-10 - M47.26) [facility] Other 12-01-2022 Evaluation note* Encounter Date Diagnosis [...] work then we may discuss seeing ENT [facility] Other 11-21-2022 Evaluation note* Encounter Date Diagnosis Assessment Notes Treatment Notes Treatment Clinical Notes Jun, Left otitis media with effusion (ICD-10 - H65.92) Jun, Thrush (ICD-10 - B37.0) Jun, DDD (degenerative disc disease), lumbar (ICD-10 - M51.36) [facility] Other 11-03-2022 Evaluation note* Encounter Date Diagnosis [...] call office and we will send referal [facility] Other 10-31-2022 Evaluation note* Encounter Date Diagnosis [...] Above note written by Javed Arreola MA, [employer]. Edited and approved by Dr. Pop Blandon MD. [facility] Other 10-27-2022 Evaluation note* Encounter Date Diagnosis [...] F41.1) Added as needed medication as discussed. [facility] Other 09-26-2022 Evaluation note* Encounter Date Diagnosis [...] index [BMI] 40.0-44.9, adult (ICD-10 - Z68.41) [facility] Other 09-26-2022 Evaluation note* Encounter Date Diagnosis [...] index [BMI] 40.0-44.9, adult (ICD-10 - Z68.41) [facility] Other 09-22-2022 Evaluation note* Encounter Date Diagnosis Assessment Notes Treatment Notes Treatment Clinical Notes Apr, Lumbar degenerative disc disease (ICD-10 - M51.36) Keep upcoming appointments with pain management appointments and neurosurgery appt as discussed. Apr, Acute non-recurrent frontal sinusitis (ICD-10 - J01.10) Take medication as directed. Recommend taking OTC Zyrtec or allergy until after harvest season [facility] Other 08-29-2022 Evaluation note* Encounter Date Diagnosis [...] further steps are needed. Patient states understanding. [facility] Other 08-24-2022 Evaluation note* Encounter Date Diagnosis [...] note writ ten by Javed Arreola CMA, Steel [employer]. Edited and approved by Dr. Pop Blandon MD. [facility] Other 08-18-2022 Evaluation note* Encounter Date Diagnosis Assessment Notes Treatment Notes Treatment Clinical Notes Mar, Strain of lumbar region, initial encounter (ICD-10 - S39.012A) [facility] Other 08-08-2022 Evaluation note* Encounter Date Diagnosis [...] to be seen. Also always know the [facility] Health Emergency Number is 24 hours a day available, even on holidays there is someone you can reach out to. Also we will check other labs yearly to screen for other health issues. Please remember we are a team and your opinion is very important in all of your healthcare decisions Mar, Other spondylosis with radiculopathy, lumbar region (ICD-10 - M47.26) [facility] Other 07-05-2022 Evaluation note* Encounter Date Diagnosis [...] Feb, Left lumbar pain (ICD-10 - M54.50) [facility] Other 06-01-2022 Evaluation note* Encounter Date Diagnosis Assessment Notes Treatment Notes Treatment Clinical Notes Jan, Generalized pain (ICD-10 - R52) Jan, Strain of lumbar region, initial encounter (ICD-10 - S39.012A) [facility] Other 05-19-2022 Evaluation note* Encounter Date Diagnosis [...] note writ ten by Javed Arreola CMA, Steel [employer]. Edited and approved by Dr. Pop Blandon MD. [facility] Other 04-14-2022 Evaluation note* Encounter Date Diagnosis [...] note writ ten by Luli Garcias LPN, Steel [employer]. Edited and approved by Dr. Pop Blandon MD. [facility] Other 03-17-2022 Evaluation note* Encounter Date Diagnosis [...] note writ ten by Javed Arreola MA, Steel Buffer. Edited and approved by Dr. Pop Blandon MD. [facility] Other 03-10-2022 Evaluation note* Encounter Date Diagnosis [...] discussed so you can talk about referrals. [facility] Other 03-02-2022 Evaluation note* Encounter Date Diagnosis Assessment Notes Treatment Notes Treatment Clinical Notes Oct, Generalized pain (ICD-10 - R52) [facility] Other 01-31-2022 Evaluation note* Encounter Date Diagnosis [...] note writ ten by Javed Arreola MA, Steel [employer]. Edited and approved by Dr. Pop Blandon MD. [facility] Other 12-13-2021 Evaluation note* Encounter Date Diagnosis [...] given Flexeril to help relax her muscles. [facility] Other 10-14-2021 Evaluation note* Encounter Date Diagnosis [...] Patient care instructions given in writting by [facility] document. [facility] Other Evaluation + Plan note Future Appointments Appointment Date:10/12/2024 01:30:00 PM Scheduled Provider: Location:[facility] Appointment Type:Surgical PAT FT Appointment Date:10/19/2024 11:30:00 AM Scheduled Provider: Location:[facility] Appointment Type:Surgery FT Appointment Date:10/23/2024 10:15:00 AM Scheduled Provider:Obdulio Matamoros DO Location[facility] Appointment Type:Pain Management - New (FT) [facility] Evaluation + Plan note Future Appointments Appointment Date:10/19/2024 11:30:00 AM Scheduled Provider: Location:[facility] Appointment Type:Surgery FT Appointment Date:10/23/2024 10:15:00 AM Scheduled Provider:Obdulio Matamoros DO Location:.[facility] [place] Appointment Type:Pain Management - New (FT) [facility] Evaluation + Plan note Future Appointments Appointment Date:10/23/2024 10:15:00 AM Scheduled Provider:Obdulio Matamoros DO Location:[facility] Appointment Type:Pain Management - New (FT) [facility] Evaluation + Plan note Future Appointments Appointment Date:11/02/2024 10:15:00 AM Scheduled Provider: [facility] Type:XR Abdomen (FT) Appointment Date:11/02/2024 10:30:00 AM Scheduled Provider: [facility] Appointment Type:US Abdominal/Pelvis (FT) Appointment Date:11/20/2024 10:20:00 AM Scheduled Provider:YESENIA YUSUF MD Location:[facility] Appointment Type:URO Office Visit Future Scheduled Tests Radiology* XR Abdomen 1 View 11/02/24 * US Renal 11/02/24 [facility] evaluation + Plan note Future Appointments Appointment Date:01/29/2025 11:00:00 AM Scheduled Provider:YESENIA YUSUF MD Location:[facility] Appointment Type:URO Office Visit [facility] Evaluation noteNo InformationNort Row44 Other Evaluation noteNo assessment information available [facility] Work Phone: Evaluation note* Diagnosis Onset Date Resolution Status Obesity, morbid, BMI 40.0-49.9 acute Obstructive sleep apnea of adult acute [facility] Work Phone: Evaluation note* Diagnosis Lumbar radiculopathy- Primary Thoracic or lumbosacral neuritis or radiculitis, unspecified Polypharmacy Issue of repeat prescriptions documented in this encounter [facility] HealthcareEvaluation note* Diagnosis Postural dizziness with near syncope- Primary Abnormal EKG Nonspecific abnormal electrocardiogram (ECG) (EKG) documented in this encounter [facility] Work Phone: Evaluation note* Diagnosis Lumbosacral spondylosis without myelopathy- Primary documented in this [facility] Diagnosis Encounter for initial prescription of contraceptive pills [facility]* Diagnosis Well woman exam with routine gynecological exam- Primary Routine gynecological examination Encounter for screening mammogram for malignant neoplasm of breast Standardized adult depression screening tool completed Skin lesion of right leg Unspecified disorder of skin and subcutaneous tissue documented [facility]* Diagnosis Postural dizziness with near syncope documented in this encounter [facility] Work Phone: Evaluation note* Diagnosis Postural dizziness with near syncope documented in this encounter [facility] Work Phone: Evaluation note* Diagnosis Onychomycosis- Primary Dermatophytosis of nail Right foot pain Pain in soft tissues of limb Plantar wart Left foot pain Pain in soft tissues of limb documented in this encounter [facility] HealthcareEvaluation note* Diagnosis Onychomycosis- Primary Dermatophytosis of nail documented in this encounter [facility]* Diagnosis Plantar wart- Primary documented in this encounter [facility]* Diagnosis Primary insomnia- Primary Persistent disorder of initiating or maintaining sleep Lipid screening Screening for lipoid disorders Primary hypertension Unspecified essential hypertension Acquired hypothyroidism Unspecified hypothyroidism Other depression Stage 1 chronic kidney disease Primary osteoarthritis involving multiple joints Weight gain Other symptoms concerning nutrition, metabolism, and development Pain Generalized pain Pain in other joint Acute non-recurrent frontal sinusitis Morbid (severe) obesity due to excess calories ([facility]) Obesity, class 3 Body mass index (BMI) 45.0-49.9, adult ([facility]) Major depressive disorder, single episode, in full remission Major depressive disorder, single episode in full remission documented in this encounter [facility] Narrative - Reported* Type Description Date Medical History HTN Hospitalization History saliva stones [employer] [facility] [employer] Other Hisamln general Narrative - Reported* Type Description Date Medical History HTN Medical History back pain Hospitalization History [employer] [facility] [employer] Other Hislqsj general Narrative - Reported* Type Description Date Medical History HTN Medical History Back pain Medical History Day time fatigue Medical History Depression Medical History Gestational diabetes in the past Medical History Spinal stenosis Medical History Chronic pain requiring narcotic use Hospitalization History saliva [employer] (formerly known [employer] [facility] [employer] Other Hisigga general Narrative - Reported* Type Description Date Medical History HTN Medical History Back pain Medical History Day time fatigue Medical History Depression Medical History Gestational diabetes in the past Medical History Spinal stenosis Medical History Chronic pain requiring narcotic use Hospitalization History saliva stones Hospitalization History [facility] [place] 09[facility]2021 [facility] [employer] Other Hiskmyy general N[facility]ative - [facility] [employer] Other Hospital course Narrative No data available for this section [facility] Hospital Discharge instructions Additional Instructions Use your albuterol inhaler as prescribed for your shortness of breath and wheezing. Take Levaquin and prednisone as prescribed for pneumonia and laryngitis follow-up with the PCP for reevaluation in 5 to 7 days. .[facility] Work Phone: Hospital Discharge instructions No data available for this section [facility] InstructionsNot on filedocumented in this encounter [facility]* Attachments The following attachments cannot be sent through Care Everywhere. * Menopause ([place]) * Health Risks of a High BMI ([place]) [facility] No data available for this section [facility] Reason for referral (narrative)* Consultation (Routine) - Pending Review Specialty Diagnoses / Procedures Referred By Contac t Referred To Contact Dermatology Diagnoses Skin lesion of right leg Naima Bates, LAUNDRY SUPERVISOR-TRASH COLLECTOR SUPERVISOR [address] [place] [address] Emely Veloz MD [address] [address] Referral ID Status Reason Start Date Expiration Date Visits Requested Visits Authorized [id number] Pending Review Specialty Services Required 01/19/2024 01/18/2025 1 1 [facility] ServicesReason for visit NarrativeNeurosurgery Referral Update [place] [address] Other reason for visit NarrativePain Medicine [facility] [employer] Other reason for visit NarrativeDermatology Referral Update [place] [address] Other reason for visit Narrative* Consultation (Routine) - Pending Review Specialty Diagnoses / Procedures Referred By Contac t Referred To Contact Neurology Diagnoses Difficulty in walking, not elsewhere classified Spondylolysis, lumbosacral 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, lumbar region Procedures MD OFFICE[facility]OUTPATIENT [facility] Ellie Ingram, FABRICIO [address] [place] [address] Phone: tel: fax: Joesph Macedo MD [address] [place] [address] Phone: tel: fax: Referral ID Status Reason Start Date Expiration Date Visits Requested Visits Authorized [id number] Pending Review Consult and Treat 11/19/01/14/2025 1 1 [facility] for visit Narrative* Cardiovascular (Routine) - Authorized Specialty Diagnoses / Procedures Referred By Contac t Referred To Contact Cardiology Diagnoses Postural dizziness with near syncope [place] [address] [facility] [address] [place] [address] Phone: tel: fax: Referral ID Status Reason Start Date Expiration Date V isits Requested Visits Authorized [id number] Authorized 07/31/2024 07/31/2025 1 1 [facility] Work Phone: Summary Purpose Family History No [...] Procedures MRI ELBOW LEFT WO CONTRAST ArtemioEdie Zbigniew, DO [address] [place] [address] Reason his shefflied o ffice - patient has history of chronic back pain and would like opinion if surgery is option Diagnosis 1 Pain in left lumbar region of back (M54.50) Diagnosis 2 Lumbar degenerative disc disease (M51.36) Diagnosis 3 DDD (degenerative di sc disease), lumbar (M51.36) Diagnosis 4 Other spondylosis wi th radiculopathy, lumbar region (M47.26) Referral Organization [facility] Referring Provider First Name Ellie Referring Provider Last Name Juan Jose Referring Provider Specialty Nurse Pract itioner Referred Organization Unknown Facility Referred Provider Specialty Neurological Surgery Referral Priority Routine General Notes Serene Lucas 022 07:37:02 AM >Dr. Clements has retired and moved to another state. Would patient like to continue with This office or go somewhere else? Ellie Ingram 03/05/2022 10:16:24 AM >is there a neuro surgeon there? Alexandrea Lucaszbigniew Domingo 03/05/2022 10:40:16 AM >Yes, they have other Neurosurgeons there, then Yes Alexandrea Lucaszbigniew Domingo 03/06/2022 07:55:07 AM >Waiting for office notes to be locked before sending referral Alexandrea Lucaszbigniew Domingo 03/10/2022 10:08:27 AM >Referral was fax Reason *FU 07/09 lumbar p ain [facility] Diagnosis 1 Lumbar degenerative disc disease (M51.36) Referral Organization [facility] Referring Provider First Name Ellie Referring Provider Last Name Juan Jose Referring Provider Specialty Nurse Pract itioner Referred Organization [facility] Referred Address [address] [facility],[place], [place],[address] Referred Provider Specialty Pain Medicin e Referral Priority Routine General Notes Alexandrea Lucaszbigniew Domingo 022 03:02:38 PM >Received and fax referral today Clinical Notes Office [phone] Reason CANCELLED recently changed skin lesions on face Diagnosis 1 Skin lesion (L98.9) Referral Organization [facility] Referring Provider First Name Ellie Referring Provider Last Name Juan Jose Referring Provider Specialty Nurse Pract itioner Referred Organization [facility] Referred Address [address] [facility],[place],[address] Referred Provider Specialty Dermatology Referral Priority Routine General Notes Alexandrea Lucaszbigniew Domingo 022 08:22:14 AM >Received today and accidently sent P2P with notes not being locked. Alexandrea Lucaszbigniew Domingo 09/03/2022 01:06:15 PM >Fax letter for appt update Shayy Serene Domingo 09/03/2022 03:38:54 PM >Received letter back and they do not take patients insurance. I will send this to [facility] when notes are locked Shayy Serene M 09/08/2022 10:41:21 AM >[facility] request us [...] Diagnosis 1 Sleep apnea (G47.30) Referral Organization [facility] Referring Provider First Name Danya Referring Provider Last Name Machelle Referring Provider Specialty Nurse Pract itioner Referred Organization [facility] Referred Address [address] [place],[address] Referred Provider Specialty Sleep Medici ne Referral Priority Routine General Notes Xiomy Solo 2022 08:06:34 AM > Faxed to sleep lab. Xiomy Solo 10/22/2022 08:01:36 AM > Per Central Scheduling, order was received but pt has not been contacted yet to schedule. Specialty Diagnoses / Procedures Referred By Lalit cisneros Referred To Contact Diagnoses Lumbosacral spondylosis without myelopathy Procedures MD DSTR NROLYTC AGNT PARVERTEB FCT SNGL LMBR/SACRAL Patricia Walker MD [address] [facility] [address] [place] [id number] Referral ID Status Reason Start Date Expiration Date Visits Re quested Visits Authorized [id number] Open 02/16/2024 02/15/2025 1 1 Assessments Diagnosis [...] section and content) DATE CREATED AUTHOR 08/14/2020 [facility] DATE CREATED AUTHOR AUTHOR'S ORGANIZ ATION 11/20/2022 [facility] DATE CREATED AUTHOR AUTHOR'S ORGANIZ ATION 01/21/2024 [facility] DATE CREATED AUTHOR AUTHOR'S ORGANIZ ATION 01/22/2024 [facility] DATE CREATED AUTHOR AUTHOR'S ORGANIZ ATION 01/23/2024 [employer] [facility] DATE CREATED AUTHOR AUTHOR'S ORGANIZ ATION 02/25/2024 [facility] DATE CREATED AUTHOR AUTHOR'S ORGANIZ ATION 03/23/2024 [facility] DATE CREATED AUTHOR AUTHOR'S ORGANIZ ATION 05/06/2024 [place] DATE CREATED AUTHOR AUTHOR'S ORGANIZ ATION 06/25/2024 [facility] [place] [facility] DATE CREATED AUTHOR AUTHOR'S ORGANIZ ATION 10/14/2024 [facility] [facility] DATE CREATED AUTHOR AUTHOR'S ORGANIZ ATION 10/15/2024 [facility] [place] DATE CREATED AUTHOR AUTHOR'S ORGANIZ ATION 10/21/2024 [facility] [place] [facility] DATE CREATED AUTHOR AUTHOR'S ORGANIZ ATION 11/04/2024 [facility] DATE CREATED AUTHOR AUTHOR'S ORGANIZ ATION 11/16/2024 [facility] DATE CREATED AUTHOR AUTHOR'S ORGANIZ ATION 12/03/2024 [facility] DATE CREATED AUTHOR AUTHOR'S ORGANIZ ATION 02/27/2025 [facility] DATE CREATED AUTHOR AUTHOR'S ORGANIZ ATION 03/12/2025 [facility] [place] [facility] DATE CREATED AUTHOR AUTHOR'S ORGANIZ ATION 05/10/2025 [facility] DATE CREATED AUTHOR AUTHOR'S ORGANIZ ATION 05/14/2025 [facility] Reason for Visit (unrecogniz ed section and content) Status Reason Specialty Diagnoses / Procedures Referre d By Contact Referred To Contact Closed Radiology Diagnoses Lateral epicondylitis, left elbow Pain in left elbow Procedures MRI-UPPER EXT JNT WO CONT Edie Singh, DO [address] [place] [address] [facility] [address] [place] [id number] Reason Comments New Patient Visit Specialty Diagnoses / Procedures Referred By Contac t Referred To Contact Diagnoses Abnormal EKG Procedures ECG 12 lead (Clinic Performed) Martin Larios MD [address] [place] [address] [address], [facility] [address] [place] [address] Phone: tel: fax: Referral ID Status Reason Start Date Expiration Date V isits Requested Visits Authorized [id number] Authorized 07/31/2024 07/31/2025 1 1 Reason Comments Med Refill Reason Comments Dizziness Syncope Follow-up Results Specialty Diagnoses / Procedures Referred By Contac t Referred To Contact Cardiology Diagnoses Postural dizziness with near syncope Procedures Follow Up In Cardiology Martin Larios MD [address] [place] [address] [address], [facility] [address] [place] [address] Phone: tel: fax: Referral ID Status Reason Start Date Expiration Date V isits Requested Visits Authorized [id number] Pending Review 07/31/2024 07/31/2025 1 1 Reason Comments 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 Patient states she has pain with this. Patient states she had cryotherapy with PCP at the of November and it did not work. Patient also relates fungal nails with 4th and 5th digits with right foot. Reason Comments Plantar Warts Joselito Vidal is a 54 y.o. female. presents today for FUV plantar wart on left foot. Patient states wart is better. Patient relates she has started Lamisil forfungal nails with 4th and 5th digits with [...] Status Dates Dario Olmedo MD Attending Pr niker, Other Provider Active Start: December 29, 2023 [...] Team Status: Active Member Role Status Dates LUCY Lee Primary Care Provider, Atten ding Provider Active Team Status: Inactive Member Role Status Dates LUCY Lee Primary Care Provider, Atten ding Provider Active Team Status: Active Member Role Status Dates LUCY Lee Primary Care Provider Active Team Status: Inactive Member Role Status Dates LUCY Lee Primary Care Provider Active Edie Bolton DO Emergency Provider Active Team Status: Inactive Member Role Status Dates Ellie Juan Jose , CAR STARTER-C Primary Care Provider Active Susana Ellis NP-C Attending Provider Active Team Status: Inactive Member Role Status Dates Ellie Juan Jose , CAR STARTER-C Primary Care Provider Active Danya Carty APRN Referring Provider Active Dario Olmedo MD Attending Provider Active Team Status: Inactive Member Role Status Dates Ellie Ingram , CAR STARTER-C Primary Care Provider Active Dario Olmedo MD Attending Provider Active Team Status: Inactive Member Role Status Dates Ellie Juan Jose , CAR STARTER-C Primary Care Provider Active Dario Palacios DO Attending Provider Active Team Status: Inactive Member Role Status Dates Ellie Juan Jose , CAR STARTER-C Primary Care Provider Active Start: November 26, 2023 End: November 26, 2023 Susan Duckworth APRN [facility]- Attending Provider Active Start: November 26, 2023 End: November 26, 2023 Team Status: Active Member Role Status Dates NON STAFF Primary Care Provider Active Start: October 13, 2023 Estuardo Judge DO Attending Provider Active Sta rt: October 13, 2023 Manager Brand Relationship Specialty Start Date End Date Unallocated, Eryn Wasserman MD [facility] [place] [address] PCP - General Family Medicine 07/18/24 Ellie Ingram NP [address] [place] [address] Referring Physician 07/18/24 Manager Brand Relationship Specialty Start Date End Date Unallocated, Eryn Wasserman MD [address] [place] [id number] PCP - General Family Medicine 07/18/24 Ellie Ingram NP [address] [place] [address] Referring Physician 07/18/24 Manager Brand Relationship Specialty Start Date End Date Ellie Ingram APRN-TRASH COLLECTOR SUPERVISOR [address] [place] [phone] PCP - General Family Medicine 07/18/24 Manager Brand Relationship Specialty Start Date End Date Ellie Ingram APRN - OFFSHORING MANAGER [address] [place] [address] PCP - General 03/26/22 Manager Brand Relationship Specialty Start Date End Date Erasmo Ingramie BROOKLYNN Alejandre-TRASH COLLECTOR SUPERVISOR [facility] [place] [phone] PCP - General Family Medicine 07/18/24 Martin Larios MD [address] [place] [address] Consulting Physician Cardiology 11/09/24 Manager Brand Relationship Specialty Start Date End Date Ellie Ingram APRN-TRASH COLLECTOR SUPERVISOR [address] [place] [phone] PCP - General Family Medicine 07/18/24 Martin Larios MD [address] [place] [phone] Consulting Physician Cardiology 11/09/24 Manager Brand Relationship Specialty Start Date End Date Rancho Hernandez MD [address] [place] [phone] PCP - General Family Medicine 03/16/25 Ellie Ingram NP [address] [place] [address] Referring Physician 07/18/24 Manager Brand Relationship Specialty Start Date End Date Rancho Hernandez MD [address] [place] [address] PCP - General Family Medicine 03/16/25 Ellie Ingram NP [address] [place] [address] Referring Physician 07/18/24 Manager Brand Relationship Specialty Start Date End Date Rancho Hernandez MD [address] [place] [phone] PCP - General Family Medicine 03/16/25 Ellie Ingram NP [address] [place] [address] Referring Physician 07/18/24 Manager Brand Relationship Specialty Start Date End Date Rancho Hernandez MD [address] [place] [address] PCP - General Family Medicine 03/16/25 Ellie Ingram NP [address] [place] [address] Referring Physician 07/18/24 Manager Brand Relationship Specialty Start Date End Date Rancho Hernandez MD [address] [place] [phone] PCP - General Family Medicine 03/16/25 Ellie Ingram NP [address] [place] [address] Referring Physician 07/18/24 Manager Brand Relationship Specialty Start Date End Date Rancho Hernandez MD [address] [place] [address] PCP - General Family Medicine 03/16/25 Ellie Ingram NP [address] [place] [address] Referring Physician 07/18/24 Goals (unrecognized section and [...] BE BASED ON THE PRIMARY CLINICAL RECORDS. [employer] [facility]. provides no warranty or guarantee of the accuracy or completeness of information in this document.
== END 2025-05-16 09:19 | disposition home or self-care (01) ==
LOC: MRI 09:18
PROVIDERS: PCP Nurse Practitioner Family; Visit Provider Nurse Practitioner
DX: M51.369 Other intervertebral disc degeneration, lumbar region without mention of lumbar back pain or lower extremity pain (principal)
CPT/HCPCS: 72148

== ENCOUNTER 2025-05-23 10:28 | Outpatient (OUT) | payer MEDICARE, MEDICAID, SELFPAY ==
--- OUTSIDE RECORDS SUMMARY | 2025-05-23 10:35 | XMS_ITS | CCD ---
Author Organization [facility] CliniSyme Care Team Providers Care Sales Engagement Executive Name Role Phone EDIE SINGH Referring Unavailable EDIE SINGH Primary Care Unavailable Edie Singh Primary Care Provider [phone] Edie Singh Unavailable Edie Singh Unavailable Jamia Pop Unavailable Ellie Ingram Unavailable NON STAFF Primary Care Provider UnavailDO Reinaldo Gutierrez Emergency Provider [phone] SOBEIDA Ingram-Ruperto Argueta Primary Care Provider LUCY Ingram Attending Provider SOBEIDA Ingram-Ruperto Argueta Primary Care Provider Juan Jose, SOBEIDA-C Ellie Attending Provider DO Edie Bolton Emergency Provider Susana Sung Unavailable Danya Carty Unavailable Serene Bustos Unavailable AGUSTO Ellis Attending Provider [phone] ELLIE INGRAM Consulting Unavailable JUAN JOSE, ELLIE [...] JOSE, ELLIE Attending Unavailable Dario Olmedo Unavailable [phone] SOBEIDA Ingram-Ruperto Ellie Primary Care Provider LUCY Ingram Attending Provider DO Edie Bolton Emergency Provider KIRSTEN SungC Susana Attending Provider BROOKLYNN Carty Dragan Referring Provider MD Dario Olmedo Attending Provider Clive Marino Unavailable LUCY Ingram Primary Care Provider LUCY Ingram Attending Provider Kera Mccall Unavailable LUCY Ingram Primary Care Provider U DO Dario Espino Attending Provider MD Dario Olmedo Attending Provider NON STAFF Primary Care Provider Unavailabl e Dario Palacios Admitting Unavailab Dario Faria Attending Unavailab le Juan Jose, Ellie Primary Care Unavailable Dario Olmedo Admitting Unavaila ble HonorioDario shin Attending Unavaila ble NON STAFF Primary Care Unavailable Juan Jose, Ellie Admitting Unavailable Juan Jose, Ellie Attending Unavailable Juan Jose, Ellie Primary Care Unavailable Dario Olmedo Admitting Unavaila ble Dario Olmedo Attending Unavaila ble Juan Jose, Ellie [...] Unavailable JUAN JOSE, ELLIE Primary Care Unavailable DALZELToby JOSEFINA Referring Unavailable DONOVAN, SUNJAY Referring Unavailable ELLIE INGRAM Primary Care Unavailable DONOVAN, SUNJAY Referring Unavailable ELLIE INGRAM Primary Care Unavailable ELLIE INGRMA Primary Care Unavailable DONOVAN, SUNJAY Referring Unavailable DONOVAN, SUNSAHRAY Referring Unavailable ELLIE INGRAM Primary Care Unavailable JUAN JOSE, ALYSON Kwan Attending Unavail able JUAN JOSE, ALYSON Kwan Admitting Unavail able JUAN JOSE, ALYSON Kwan Attending Unavail able JUAN JOSE, ALYSON Kwan Admitting Unavail able JUAN JOSEELLIE MOHR Admitting Unavailable ELLIE INGRAM Attending Unavailable ELLIE INGRAM Admitting Unavailable ELLIE INGRAM Attending Unavailable JUAN JOSE, ALYSON Kwan Admitting Unavail able JUAN JOSE, ALYSON Kwan Attending Unavail able Unallocated MD, Noms Provider Primary Care Provi yogi Juan Jose TEST TUBE MAKER, Ellie Unavailable Juan Jose STAVE JOINTER-BALLISTICS EXPERTEllie Pili Primary Care Provider Juan Jose STAVE JOINTER - TEST TUBE MAKER, Ellie Primary Care Provid er Unavailable Primary Care Provider [...] Unavail able NKANSAH-AMANKRA, YESENIA Referring Unavail able KERI INGRAMHANIE Primary Care Unavailable ELLIE INGRAM Attending Unavailable JUAN JOSE, ELLIE Admitting Unavailable JUAN JOSE, [facility] Primary [facility] Unavailable NKANSAH-AMANKRA, YESENIA Attending Unavail able JUAN JOSE ELLIE Primary [facility] Unavailable NKANSAH-AMANKRA, YESENIA Admitting Unavail able NKANSAH-AMANKRA, YESENIA Attending Unavail able NKANSAH-AMANKRA, YESENIA Referring Unavail able JUAN JOSE, [facility] Primary [facility] Unavailable Juan Jose STAVE JOINTER-BALLISTICS EXPERT, [facility] Provider Martin Larios MD Unavailable MARTIN LARIOS Referring Unavailab le JUAN JOSE [facility] ELLIE [place] Primary Care Physician MARTIN LARIOS Attending Unavailab le JUAN JOSE [facility] MARTIN Albarran Referring Unavailab MARTIN Feliciano Attending Unavailab MARTIN Feliciano Referring Unavailab le JUAN JOSE [facility] Unavai lable NKANSAH-AMANKRA, YESENIA Admitting Unavail able NKANSAH-AMANKRA, YESENIA Attending Unavail able NKANSAH-AMANKRA, YESENIA Referring Unavail able JUAN JOSE, SOBEIDA Meyers Admitting Unavai lable JUAN JOSE, SOBEIDA Meyers Attending Unavai robinson INGRAM, SOBEIDA Meyers Primary Care Unavai lable JUAN JOSE, SOBEIDA Meyers Primary Care Patsy Mallory Figueredo Attending Unavailable Rancho Hernandez MD Primary [facility] Provider ALEXIS GRACE Attending Unavailable ALEXIS GRACE Attending Unavailable ANAMIKA CELESTIN Attending Unavailable ANAMIKA CELESTIN Attending Unavailable DARIO PALACIOS Attending Unavailable ELLIE INGRAM Referring Unavailable Allergies Allergy Classification Reported Allergen(s) Allergy Type Date of Onset Reaction(s) Facility (4 sources) No Known Medication Allergies; Translations: [No Known Medication Allergies] Propensity to adverse reactions (disorder) [facility] Repository Medications Current Medications Medication Drug [...] every four hours as needed for headache gahcyvrwyc-wbkrzvgljvalh-earwnain 50-325 -40 MG tablet Take 1 tablet by mouth every 4 (four) hours if needed for headaches Active acetaminophen 300 mg / codeine phosphate 30 mg oral tablet (14 sources) Opioid Agonist Start: 10-29-2022 take 1 tablet by mouth every twelve hours Acetaminophen-Codeine 300-30 MG 1 tablet as needed Orally twice a day for 30 days Oct, Active [id number] 200 actuat albuterol 0.09 mg/actuat metered dose [...] mg / cholecalciferol 200 unt oral tablet (7 sources) Vitamin D Start: 06-19-2024 take 1 tablet by mouth every twelve hours Oysco 500/D 500 mg-5 mcg (200 unit) tablet Take 1 tablet by mouth every 12 hours. 06/19/2024 Active take 1 tablet by more th in the morning, then take 1 tablet [...] Start: 06-12-2021 take 1 capsule by mo [facility] every twelve hours Cefdinir 300 MG 1 [...] Ordered Start: 04-06-2022 take 1 capsule by [facility] every twelve hours DULoxetine HCl 60 MG 1 capsule Orally Twice a day for 30 day(s) Mar, Active Start: 04-06-2022 take 1 capsule by [facility] every twelve hours DULoxetine HCl 40 MG 1 capsule Orally Twice a day for 30 day(s) Mar, Active Start: 04-06-2022 take 1 capsule by [facility] every twelve hours DULoxetine HCl 20 [...] Active fludrocortisone acetate 0.1 mg oral tablet (20 sources) Start: 10-15-2023 take 1 tablet by [...] 1 Start: 04-22-2022 take 1 tablet by [facility] every eight hours Gabapentin 600 MG 1 tablet Orally three times a day for 30 day(s) Mar, Active Start: 09-29-2021 take 1 capsule by [facility] every eight hours Gabapentin 300 MG 1 capsule Orally three times a day for 30 day(s) Aug, Active take 1 capsule by [facility] every eight hours gabapentin (Neurontin) 400 mg capsule Take 1 capsule (400 mg) by mouth every 8 hours. Active take 0.5 tablet by m outh at bedtime gabapentin (NEURONTIN) 600 MG tablet Take 0.5 tablets by mouth in the morning, at noon, in the evening, and at bedtime. 0 Active gemfibrozil 600 mg oral tablet (2 sources) Peroxisome Proliferator Receptor alpha Agonist Start: 05-22-2025 End: 05-22-2026 take 1 tablet by mouth in the morning gemfibrozil (Lopid) 600 MG tablet Indications: Elevated LDL cholesterol level Take 1 tablet (600 mg) by mouth in the morning and 1 tablet (600 mg) before bedtime. 180 tablet 3 05/22/2025 05/22/2026 Active hydroCHLOROthiazide 25 mg / lisinopril 20 mg oral tablet (20 sources) Thiazide Diuretic, Angiotensin Converting Enzyme Inhibitor take 1 tablet by mouth every twenty-four hours Lisinopril-hydroC HLOROthiazide 20-25 MG 1 tablet Orally Once a [...] Start: 06-25-2022 take 1 tablet by more twice daily hydrOXYzine HCl 10 MG 1 [...] spasm, # 40 tab(s), Refills(s) 0, Pharmacy: [id number], 157, cm, 10/12/24 13:52:00 EST, Height/Length [...] schedule on package instructions 21 tablet 05/08/2025 05/22/2025 Discontinued (Other) Start: 05-08-2025 End: 05-15-2025 methylPREDNISolone (Medrol D ospak) 4 MG tablets Indications: Pain Follow schedule [...] 1 midodrine hydrochloride 2.5 mg oral tablet (20 sources) alpha-Adrenergic Agonist Start: 10-12-2024 take 1 [...] 07/31/2024 12/17/2024 Discontinued (Med List Cleanup) nystatin [id number] unt/ml oral suspension (1 source) Polyene Antifungal Start: 07-20-2022 take 5 mL by mouth four times daily Nystatin [id number] UNIT/ML 5 ml Mouth/Throat Four times a day for 10 day(s) Jun, Active ondansetron 8 mg oral tablet (20 sources) Serotonin-3 Receptor Antagonist Start: 05-10-2025 take 1 tablet by mouth every eight hours as needed for nausea and vomiting and nausea and nausea ondansetron (Zofran) 8 MG tablet Indications: Nausea Take 1 tablet (8 mg) by mouth every 8 (eight) hours if needed for nausea or vomiting 20 tablet 2 05/10/2025 Active Start: 10-09-2024 take 1 tablet by more th every [...] if needed for nausea or vomiting Active 2 ml orphenadrine citrate 30 mg/ml injection (4 sources) Muscle Relaxant Start: 05-22-2025 End: 05-22-2025 orphenadrine (Norflex) injection 60 mg Start: 05-22-2025 End: 05-22-2025 inject 60 mg by intramuscular injection once 60 mg, Intramuscular, Once, On Wed05/22/25 at 1115, For 1 dose Start: 05-22-2025 End: 05-22-2025 orphenadrine (Norflex) injec tion 60 mg Start: 05-22-2025 End: 05-22-2025 inject 60 mg by intramuscular injection once 60 mg, Intramuscular, Once, On Wed05/22/25 at 1115, For 1 dose oxyCODONE hydrochloride 5 mg oral tablet (2 sources) Opioid Agonist Start: 10-19-2024 take 1 tablet by mouth every six hours as needed for pain Roxicodone 5 mg Tab 5 mg = 1 tab(s), Oral, q6hr, PRN for pain, # 6 tab(s), Refills(s) 0, Pharmacy: [id number], 157, cm, 10/12/24 13:52:00 EST, Height/Length Dosing, 116, kg, 10/12/24 13:52:00 EST, Weight Dosing Start Date: 10/19/24 Status: Ordered Ozempic, 0.25 or 0.5 MG/DOSE, 2 MG/3ML solution pen-injector (7 sources) Start: 04-19-2025 inject 0.25 mg by subcutaneous injection every week Ozempic, 0.25 or 0.5 MG/DOSE, 2 MG/3ML solution pen-injector INJECT 0.25mg SUBCUTANEOUSLY (UNDER THE SKIN) ONCE A WEEK 04/19/2025 Active pantoprazole 20 mg delayed release oral tablet (20 sources) Proton Pump Inhibitor Start: 10-09-2024 PANTOPRAZOLE 20MG TAB PANTOPRAZOLE 20MG TAB Start Date: 10/09/24 Status: Ordered Start: 12-15-2023 take 1 tablet by more once daily Pantoprazole [address] Tab [...] Start: 10-29-2022 take 1 capsule by mo uth every twelve hours Pregabalin 150 MG 1 capsule Orally Twice a day for 30 days Oct, Active End: 01-19-2024 take 1 capsule by mouth in the morning, then take 1 capsule by mouth at bedtime pregabalin (LYRICA) 200 mg capsule Take 1 capsule (200 mg total) by mouth in the morning and 1 capsule (200 mg total) before bedtime. 01/19/2024 Discontinued (Therapy completed) rimegepant 75 mg disintegrating oral tablet (2 sources) Start: 05-22-2025 End: 06-21-2025 take 1 tablet by mouth once daily as needed Rimegepant Sulfate (Nurtec) 75 MG tablet dispersible Indications: Intractable migraine with aura with status migrainosus Take 75 mg by mouth Daily as needed (Migraines) 16 tablet 11 05/22/2025 06/21/2025 Active spironolactone 100 mg oral tablet (19 sources) [...] Daily, # 10 cap(s), Refills(s) 0, Pharmacy: [id number], 157, cm, 10/12/24 13:52:00 EST, Height/Length [...] number: 1 terbinafine 250 mg oral tablet (8 sources) Allylamine Antifungal Start: 04-06-2025 End: 07-05-2025 take 1 tablet by mouth once daily terbinafine (LamISIL) 250 MG tablet Indications: Onychomycosis Take 1 tablet (250 mg) by mouth Daily 90 tablet 04/06/2025 07/05/2025 Active tiZANidine 4 mg oral capsule (20 sources) Central alpha-2 Adrenergic Agonist Start: 05-10-2025 take 1 capsule by mouth in the morning, then take 1 capsule by mouth in the evening, then take 1 capsule by mouth at bedtime tiZANidine (Zanaflex) 4 MG capsule Indications: Primary osteoarthritis involving multiple joints Take 1 capsule (4 mg) by mouth in the morning and 1 capsule (4 mg) in the evening and 1 capsule (4 mg) before bedtime. 90 capsule 05/10/2025 Active Start: 10-09-2024 tizanidine 4 m g oral capsule Refills(s) 0 Start Date: 10/09/24 [...] Orally bid for 30 day(s) Jul, Active 1 ml triamcinolone acetonide 40 mg/ml prefilled syringe (20 sources) Corticosteroid Start: 05-22-2025 End: 05-22-2025 triamcinolone acetonide (Kenalog-40) injection 40 mg Start: 05-22-2025 End: 05-22-2025 inject 40 mg by intramuscular injection once 40 mg, Intramuscular, Once, On Wed05/22/25 at 1115, For 1 dose Start: 05-22-2025 End: 05-22-2025 triamcinolone acetonide (Kenalog-40) injection 40 mg Start: 05-22-2025 End: 05-22-2025 inject 40 mg by intramuscular injection once 40 mg, Intramuscular, Once, On Wed05/22/25 at 1115, For 1 dose Start: 11-07-2022 Triamcinolone Acetonide 0.1 % 1 [...] Active vitamin b12 1 mg/ml injectable solution (4 sources) Vitamin B12 Start: 03-25-2025 cyanocobalamin (Vitamin [...] abnormal glucose; Translations: [Impaired fasting glucose] Episodic Disorders of lipid metabolism (2 sources) Raised low density lipoprotein cholesterol; Translations: [Pure hypercholesterolemia, unspecified] 05-22-2025 Chronic Essential hypertension (20 sources) Essential hypertension; Translations: [Essential (primary) hypertension] Onset: 04-06-2022 Resolved: 04-27-2022 Chronic Genitourinary symptoms and ill-defined conditions (13 sources) Retention of urine; Translations: [Retention of urine, unspecified] 09-10-2022 Episodic Headache; including migraine (4 sources) Refractory migraine with aura; Translations: [Migraine with aura, intractable, with status migrainosus] 05-22-2025 Chronic Immunizations and screening for infectious disease (20 [...] aftercare (2 sources) Polypharmacy ; Translations: [Other jail (current) drug therapy] 08-09-2024 Episodic Other circulatory [...] Comment on above: Performed By: #### 1 0405, 3458 #### [facility] [address] [place] [address] Clinical Operations Leader: Monique Cano #### [id number], , 899 #### [facility] [address], [address] [place] [address] Clinical Operations Leader: Herb Andujar MD #### #### [facility]/[address] [place], [place] Clinical Operations Leader: Vineet Ji M.D.,PhD Hematocrit (Bld) [Volume fraction] 43.9 % Normal 35.0-45.0 [facility] Comment on above: Performed By: #### 1 230, 1758 #### [facility] [address] Clinical Operations Leader: Monique Cano #### [id number], , #### [facility] [address], [address] [place] [address] Clinical Operations Leader: Herb Andujar MD #### #### [facility]/[place] [id number] [facility] [place], [place] Clinical Operations Leader: Vineet Ji M.D.,PhD Hemoglobin (Bld) [Mass/Vol] 14.6 g/dL Normal 11.7-15.5 [facility] Comment on above: Performed By: #### 1 230, 1758 #### [facility] [address] [place] [address] Clinical Operations Leader: Monique Cano #### 7599, , 89 #### [place] [address] Clinical Operations Leader: Herb Andujar MD #### #### [facility] [id number] [facility] [place], [place] Clinical Operations Leader: Vineet Ji M.D.,PhD MCH (RBC) [Entitic mass] 30.4 pg Normal 27.0-33.0 [facility] Comment on above: Performed By: #### 1 230, 1758 #### [facility] [place] [address] Clinical Operations Leader: Monique Cano #### 7599, , 899 #### [facility] [address], [address] [place] [address] Clinical Operations Leader: Herb Andujar MD #### #### [facility]/[address] [place], [place] Clinical Operations Leader: Vineet Ji M.D.,PhD MCHC (RBC) [Mass/Vol] 33.3 g/dL Normal 32.0-36.0 [facility] Comment on above: Result Comment: For adults, a slight decrease in the calculated MCHC value (in the range of 30 to 32 g/dL) is most likely not clinically significant; however, it should be interpreted with caution in correlation with other red cell parameters and the patient's clinical condition. Performed By: #### 1 230, 1758 #### [facility] [place] [address] Clinical Operations Leader: Monique Cano #### 7599, , #### [facility] [address], [address] [place], [place] [id number] Clinical Operations Leader: Herb Andujar MD #### #### [facility] [address] [place] [address] [place], [place] Clinical Operations Leader: Vineet Ji M.D.,PhD MCV (RBC) [Entitic vol] 91.3 fL Normal 80.0-100.0 [facility] Comment on above: Performed By: #### 1 230, 1758 #### [facility] [address] [place] [address] Clinical Operations Leader: Monique Cano #### 7599, , 899 #### [facility] of [address], [address] [place] [address] Clinical Operations Leader: Herb Andujar MD #### [id number] #### [facility] [id number] [facility] [place], [place] Clinical Operations Leader: Vineet Ji M.D.,PhD Platelet mean volume (Bld) [Entitic vol] 9.5 fL Normal 7.5-12.5 [facility] Comment on above: Performed By: #### 1 230, 1758 #### [facility] [address] [place] [address] Clinical Operations Leader: Monique Cano #### 7600, 367, 899 #### [facility] [place] [address] Clinical Operations Leader: Herb Andujar MD #### [id number] #### [facility] [id number] [facility] [place], [place] Clinical Operations Leader: Vineet Ji M.D.,PhD Platelets (Bld) [#/Vol] 422 10*3/uL High 140-400 [facility] Comment on above: Performed By: #### 1 230, 1758 #### [facility]-[address] [address] Clinical Operations Leader: Monique Cano #### 7600, , 899 #### [facility] [place] [address] Clinical Operations Leader: Herb Andujar MD #### [id number] #### [facility] [place], [place] Clinical Operations Leader: Vineet Ji M.D.,PhD RBC (Bld) [#/Vol] 4.81 10*6/uL Normal 3.80-5.10 [facility] Comment on above: Performed By: #### 1 230, 1758 #### [facility] [address] [place] [id number] Clinical Operations Leader: Monique Cano #### 7600, 367, 899 #### [facility] [address], [address] [place] [address] Clinical Operations Leader: Herb Andujar MD #### #### [facility]/[place] [id number] [facility] [place] Clinical Operations Leader: Vineet Ji M.D.,PhD WBC (Bld) [#/Vol] 11.9 10*3/uL High 3.8-10.8 [facility] Comment on above: Performed By: #### 1 0231, 1759 #### [facility] [id number] Clinical Operations Leader: Monique Cano #### 7600, 367, 899 #### [facility] [address], [address] [place] [address] Clinical Operations Leader: Herb Andujar MD #### #### [facility] [id number] [facility] [place], [place] Clinical Operations Leader: Vineet Ji M.D.,PhD [facility] 05-13-2025 Albumin [Mass/Vol] 4.2 g/dL Normal 3.6-5.1 [facility] Comment on above: Performed By: #### 1 0231, 1759 #### [facility] [address] [place] [address] Clinical Operations Leader: Monique Cano #### 7600, 367, 899 #### [facility] [address], [address] [place] [address] Clinical Operations Leader: Herb Andujar MD #### #### [facility] [facility] [place] Clinical Operations Leader: Vineet Ji M.D.,PhD Albumin/Globulin [Mass ratio] 1.6 {ratio} Normal 1.0-2.5 [facility] Comment on above: Performed By: #### 1 230, 1758 #### [facility] [address] [place] [address] Clinical Operations Leader: Monique Cano #### 760, 367, 899 #### [facility] [address], [address] [place], [place] [id number] Clinical Operations Leader: Herb Andujar MD #### [id number] #### [facility]/[address] [place], [place] Clinical Operations Leader: Vineet Ji M.D.,PhD ALP [Catalytic activity/Vol] 113 U/L Normal 37-153 [facility] Comment on above: Performed By: #### 1 230, 1758 #### [facility] [place] [address] Clinical Operations Leader: Monique Cano #### 7599, , 89 #### [facility] [address], [address] [place], [place] [phone] Clinical Operations Leader: Herb Andujar MD #### [id number] #### [facility] [id number] [facility] [place], [place] Clinical Operations Leader: Vineet Ji M.D.,PhD ALT [Catalytic activity/Vol] 20 U/L Normal 6-29 [facility] Comment on above: Performed By: #### 1 230, 1758 #### [facility] [address] [place] [address] Clinical Operations Leader: Monique Cano #### 760, , 89 #### [facility] [address], [address] [place] [address] Clinical Operations Leader: Herb Andujar MD #### #### [facility] [id number] [facility] [place], [place] Clinical Operations Leader: Vineet Ji M.D.,PhD AST [Catalytic activity/Vol] 15 U/L Normal 10-35 [facility] Comment on above: Performed By: #### 1 230, 1758 #### [facility] [address] [place] [address] Clinical Operations Leader: Monique Cano #### 760, , 899 #### [facility] [place] [address] [address], [address] [place] [address] Clinical Operations Leader: Herb Andujar MD #### 137[address] #### [facility] [place], [place] Clinical Operations Leader: Vineet Ji M.D.,PhD Bilirubin [Mass/Vol] 0.4 mg/dL Normal 0.2-1.2 [facility] t Diagnostics Comment on above: Performed By: #### 1 230, 1758 #### [facility] [address] [place] [address] Clinical Operations Leader: Monique Cano #### 760, , 89 #### [facility] [address], [address] [place] [address] Clinical Operations Leader: Herb Andujar MD #### [id number] #### [facility]/[address] [place], [place] Clinical Operations Leader: Vineet Ji M.D.,PhD BUN/CREATININE RATIO SEE NOTE: Normal 6-22 [facility]ues t [facility] Comment on above: Result Comment: Not Reported: BUN and Creatinine are within reference range. Performed By: #### 1 230, 1758 #### [facility] [address] [place] [address] Clinical Operations Leader: Monique Cano #### 760, , 89 #### [facility] [address], [address] [place] [address] Clinical Operations Leader: Herb Andujar MD ###[id number] #### [facility] [id number] [facility] [address] [place], [place] Clinical Operations Leader: Vineet Ji M.D.,PhD Calcium [Mass/Vol] 10.0 mg/dL Normal 8.6-10.4 [facility] Comment on above: Performed By: #### 1 230, 175 #### [facility] [address] [place], [place] [address] Clinical Operations Leader: Monique Cano #### 7599, , 899 #### [facility] [address], [address] [place] [address] Clinical Operations Leader: Herb Andujar MD #### [phone] #### [facility]/[address] [place], [place] Clinical Operations Leader: Vineet Ji M.D.,PhD Chloride [Moles/Vol] 105 mmol/L Normal 98-110 Ques t [facility] Comment on above: Performed By: #### 1 230, 1758 #### [facility] [address] [place] [address] Clinical Operations Leader: Monique Cano #### 7599, , 89 #### [facility] [address], [address] [place] [address] Clinical Operations Leader: Herb Andujar MD ### #### [facility] [address] [place], [place] Clinical Operations Leader: Vineet Ji M.D.,PhD CO2 [Moles/Vol] 27 mmol/L Normal 20-32 [facility] Comment on above: Performed By: #### 1 230, 1758 #### [facility] [address] [place] [address] Clinical Operations Leader: Monique Cano #### 7599, , 89 #### [facility] [address], [address] [place] [address] Clinical Operations Leader: Herb Andujar MD #### #### [facility] [id number] [facility] [place], [place] Clinical Operations Leader: Vineet Ji M.D.,PhD Creatinine [Mass/Vol] 0.76 mg/dL Normal 0.50-1.03 [facility] Comment on above: Performed By: #### 1 230, 1758 #### [facility] [address] [place] [address] Clinical Operations Leader: Monique Cano #### 7599, 367, 899 #### [facility] [place] [id number] [facility], [address] [place], [place] [phone] Clinical Operations Leader: Herb Andujar MD #### 55034 #### [facility] [id number] [facility] [place], [place] Clinical Operations Leader: Vineet Ji M.D.,PhD GFR/1.73 sq M.predicted among non-blacks MDRD (S/P/Bld) [Vol rate/Area] 94 mL/min/{1.73_m2} Normal > OR = 60 [facility] Comment on above: Performed By: #### 1 230, 1758 #### [facility] [address] [place] [address] Clinical Operations Leader: Monique Cano #### 7600, 367, 899 #### [facility] [address], [address] [place], [place] [phone] Clinical Operations Leader: Herb Andujar MD #### [id number] #### [facility] [id number] [facility] [place], [place] Clinical Operations Leader: Vineet Ji M.D.,PhD Globulin (S) [Mass/Vol] 2.6 g/dL Normal 1.9-3.7 [facility] Comment on above: Performed By: #### 1 230, 1758 #### [facility] [place] [address] Clinical Operations Leader: Monique Cano #### 7599, , 899 #### [facility] [address], [address] [place], [place] [phone] Clinical Operations Leader: Herb Andujar MD #### #### [facility] [place] Clinical Operations Leader: Vineet Ji M.D.,PhD Glucose [Mass/Vol] 124 mg/dL Normal 65-139 [facility] Comment on above: Result Comment: Non-fasting reference interval For someone without known diabetes, a glucose value between 100 and 125 mg/dL is consistent with prediabetes and should be confirmed with a follow-up test. Performed By: #### 1 230, 1758 #### [facility] [address] [place], [place] [id number] Clinical Operations Leader: Monique Cano #### 7599, , 89 #### [facility] [address], [address] [place], [place] [phone] Clinical Operations Leader: Herb Andujar MD #### #### [facility] [place] Clinical Operations Leader: Vineet Ji M.D.,PhD Potassium [Moles/Vol] 4.4 mmol/L Normal 3.5-5.3 [facility] Comment on above: Performed By: #### 1 230, 1758 #### [facility] [address] [place] [address] Clinical Operations Leader: Monique Cano #### 7599, , 899 #### [facility] [address], [address] [place], [place] [phone] Clinical Operations Leader: Herb Andujar MD ### #### [facility] [place] Clinical Operations Leader: Vineet Ji M.D.,PhD Protein [Mass/Vol] 6.8 g/dL Normal 6.1-8.1 [facility] Comment on above: Performed By: #### 1 230, 175 #### [facility] [address] [place] [address] Clinical Operations Leader: Monique Cano #### 7599, 367, 899 #### [facility] [address], [address] [place], [place] [phone] Clinical Operations Leader: Herb Andujar MD #### #### [facility] [id number] [facility] [place] Clinical Operations Leader: Vineet Ji M.D.,PhD Sodium [Moles/Vol] 140 mmol/L Normal 135-146 [facility] Comment on above: Performed By: #### 1 230, 1758 #### [facility] [place] [address] Clinical Operations Leader: Monique Cano #### 7599, , 89 #### [facility] [address], [address] [place], [place] [phone] Clinical Operations Leader: Herb Andujar MD #### #### [facility] [id number] [facility] [place], [place] Clinical Operations Leader: Vineet Ji M.D.,PhD Urea nitrogen [Mass/Vol] 10 mg/dL Normal 7-25 [facility] Comment on above: Performed By: #### 1 230, 1758 #### [facility] [address] [place] [address] Clinical Operations Leader: Monique Cano #### 7599, , 89 #### [facility] [address], [address] [place], [place] [phone] Clinical Operations Leader: Herb Andujar MD #### #### [facility] [id number] [facility] [place] Clinical Operations Leader: Vineet Ji M.D.,PhD CORTISOL, TOTAL 05-13-2025 CORTISOL, TOTAL 1.9 mcg/dL Low [facility] Comment on above: Result Comment: The Cortisol result may be decreased on average 10-20% relative to results previously obtained with this method due to a recent quality improvement made in March 2025 by the reagent ip counsel. Reference Range: For 8 a.m.(7-9 a.m.) Specimen: 4.0-22.0 Reference Range: For 4 p.m.(3-5 p.m.) Specimen: 3.0-17.0 * Please interpret above results accordingly * Performed By: #### 1 0231, 1759 #### [facility] [address] [place] [address] Clinical Operations Leader: Monique Cano #### 760, 367, 899 #### [facility] [address], [address] [place] [address] Clinical Operations Leader: Herb Andujar MD #### #### [facility] [id number] [facility] [place] Clinical Operations Leader: Vineet Ji M.D.,PhD LIPID PANEL, [facility] 04-30 Cholesterol [Mass/Vol] 209 mg/dL High <200 [facility] Comment on above: Order Comment: FASTI NG:NO FASTING: NO Performed By: #### 1 0231, 1759 #### [facility] [address] [place] [address] Clinical Operations Leader: Monique Cano #### 7599, 367, 899 #### [facility] [address], [address] [place], [place] [phone] Clinical Operations Leader: Herb Andujar MD #### #### [facility] [id number] [facility] [place], [place] Clinical Operations Leader: Vineet Ji M.D.,PhD Cholesterol in HDL [Mass/Vol] 56 mg/dL Normal > OR = 50 [facility] Comment on above: Order Comment: FASTI NG:NO FASTING: NO Performed By: #### 1 230, 1758 #### [facility] [address] [place] [phone] Clinical Operations Leader: Monique Cano #### 760, 367, 899 #### [facility] [address], [address] [place] [address] Clinical Operations Leader: Herb Andujar MD ### #### [facility] [id number] [facility] [place] Clinical Operations Leader: Vineet Ji M.D.,PhD Cholesterol in LDL [Mass/Vol] 126 mg/dL High [facility] Comment on above: Order Comment: FASTI NG:NO FASTING: NO Result Comment: Refe rence range: <100 Desirable range <100 mg/dL for primary prevention; <70 mg/dL for patients with CHD or diabetic patients with > or = 2 CHD risk factors. LDL-C is now calculated using the Wali-Harshad calculation, which is a validated novel method providing better accuracy than the Friedewald equation in the estimation of LDL-C. Wali FANG et al. [place]. 2013;310(19): 8895-4392 (http://education.LUVHAN/faq/GTJ454) Performed By: #### 1 230, 1758 #### [facility] [address] [place] [address] Clinical Operations Leader: Monique Cano #### 760, , 899 #### [facility] [address], [address] [place], [place] [phone] Clinical Operations Leader: Herb Andujar MD #### [id number] #### [facility] [place] Clinical Operations Leader: Vineet Ji M.D.,PhD Cholesterol.total/Chol esterol in HDL [Mass ratio] 3.7 {ratio} Normal <5.0 [facility] Comment on above: Order Comment: FASTI NG:NO FASTING: NO Performed By: #### 1 230, 1758 #### [facility] [address] [place] [address] Clinical Operations Leader: Monique Cano #### 7599, 367, 899 #### [facility] [address], [address] [place] [address] Clinical Operations Leader: Herb Andujar MD #### [id number] #### [facility] [address] [place], [place] Clinical Operations Leader: Vineet Ji M.D.,PhD NON HDL CHOLESTEROL 153 mg/dL (calc) High <130 [facility] Comment on above: Order Comment: FASTI NG:NO FASTING: NO Result Comment: For patients with diabetes plus 1 major ASCVD risk factor, treating to a non-HDL-C goal of <100 mg/dL (LDL-C of <70 mg/dL) is considered a therapeutic option. Performed By: #### 1 230, 1758 #### [facility] [address] [place] [address] Clinical Operations Leader: Monique Cano #### 7599, , 899 #### [facility] [address], [address] [place], [place] [phone] Clinical Operations Leader: Herb Andujar MD #### 60852 #### [facility] [id number] [facility] [place] Clinical Operations Leader: Vineet Ji M.D.,PhD Triglyceride [Mass/Vol] 152 mg/dL High <150 [facility] Comment on above: Order Comment: FASTI NG:NO FASTING: NO Performed By: #### 1 230, 1758 #### [facility] [address] [place] [address] Clinical Operations Leader: Monique Cano #### 7599, , 899 #### [facility] [address], [address] [place], [place] [phone] Clinical Operations Leader: Herb Andujar MD #### #### [facility]/[address] [place], [place] Clinical Operations Leader: Vineet Ji M.D.,PhD RHEUMATOID ARTHRITIS DIAGNOS [facility]IC [facility] 3 05-13-2025 CYCLIC CITRULLINATED PEPTIDE (CCP) AB (IGG) <16 Normal <20 [facility] Comment on above: Result Comment: Negative: <20 Weak Positive: 20 - 39 Moderate Positive: 40 - 59 Strong Positive: >59 Performed By: #### 1 230, 1758 #### [facility] [address] [place] [address] Clinical Operations Leader: Monique Cano #### 760, , 899 #### [facility] [place] [address] Clinical Operations Leader: Herb Andujar MD ### #### [facility]/[address] [place], [place] Clinical Operations Leader: Vineet Ji M.D.,PhD RHEUMATOID FACTOR (IGA) <5 Normal <=6 [facility] Comment on above: Performed By: #### 1 230, 1758 #### [facility] [address] Clinical Operations Leader: Monique Cano #### 7599, , #### [facility] [place] [address] Clinical Operations Leader: Herb Andujar MD ### #### [facility]/[address] [place], [place] Clinical Operations Leader: Vineet Ji M.D.,PhD RHEUMATOID FACTOR (IGG) <5 Normal <=6 [facility] Comment on above: Performed By: #### 1 230, 1758 #### [facility] [address] Clinical Operations Leader: Monique Cano #### 7599, , 89 #### [facility] [address], [address] [place] [address] Clinical Operations Leader: Herb Andujar MD #### #### [facility] [place] Clinical Operations Leader: Vineet Ji M.D.,PhD RHEUMATOID FACTOR (IGM) 10 U High <=6 [facility] Comment on above: Performed By: #### 1 230, 1758 #### [facility] [address] [place] [address] Clinical Operations Leader: Monique Cano #### 7600, 367, 899 #### [facility] [address], [address] [place] [address] Clinical Operations Leader: Herb Andujar MD #### #### [facility] [place] Clinical Operations Leader: Vineet Ji M.D.,PhD SJOGREN'S ANTIBODY (SS-A) <1.0 Normal [facility] Comment on above: Result Comment: Reference Range: < 1.0 NEG AI Performed By: #### 1 230, 1758 #### [facility] [address] [place] [address] Clinical Operations Leader: Monique Cano #### 7600, 367, 899 #### [facility] [address], [address] [place], [place] [phone] Clinical Operations Leader: Herb Andujar MD #### #### [facility] [place] Clinical Operations Leader: Vineet Ji M.D.,PhD SJOGREN'S ANTIBODY (SS-B) <1.0 Normal [facility] Comment on above: Result Comment: Reference Range: < 1.0 NEG AI Performed By: #### 1 230, 175 #### [facility] [address] [place], [place] [phone] Clinical Operations Leader: Moniqeu Cano #### 7600, 367, 899 #### [facility] [address], [address] [place] [address] Clinical Operations Leader: Herb Andujar MD #### [phone] #### [facility]/[address] [place], [place] Clinical Operations Leader: Vineet Ji M.D.,PhD TSHon 05-13-2025 TSH Qn 0.64 m[IU]/L Normal [facility] Comment on above: Result Comment: Refe rence Range > or = 20 Years 0.40-4.50 Ranges First trimester 0.26-2.66 Second trimester 0.55-2.73 Third trimester 0.43-2.91 Performed By: #### 1 0231, 1759 #### [facility] [address] [place], [place] [phone] Clinical Operations Leader: Monique Cano #### 7600, 367, 899 #### [facility] [address], [address] [place] [address] Clinical Operations Leader: Herb Andujar MD #### #### [facility] [place] Clinical Operations Leader: Vineet Ji M.D.,PhD HbA1c (Bld) [Mass fraction]o n 05-08-2025 Interpretation and review of laboratory results Normal [facility] - Hematology and Cell countson 05-08-2025 HbA1c (Bld) [Mass fraction] 5.2 % [facility] 04-06-2025 ALT [Catalytic activity/Vol] 21 U/L Normal 6-29 [facility] Comment on above: Performed By: #### 8 22, 823 #### [facility] [address], [address] [place] [address] Clinical Operations Leader: Herb Andujar MD Sarah 04-06-2025 AST [Catalytic activity/Vol] 18 U/L Normal 10-35 [facility] Comment on above: Performed By: #### 8 22 823 #### [facility] [address], [address] [place] [address] Clinical Operations Leader: Herb Andujar MD CT Abdomen/Pelvis w/o Chevy martinez 01-17-2025 CT Abdomen/Pelvis w/o Contrast Exam Date/Time: [...] MD Transcribed by: GREGG Technologist: ARACELI Lopez [facility] Ambulatory Visit Summaryon 0 11-14-2024 Ambulatory [...] YESENIA YUSUF MD Where: [facility] [place] [address], [address] [place] [address]- You Need to Schedule the Following Appointments Follow Up with YESENIA YUSUF MD, URL When: Where: You Need to Complete the Following CT Abdomen/Pelvis w/o Contrast, 11/14/24, Routine, Order for future visit, Transport Mode: Ambulatory, Reason: Other (please specify), Reason: Ureteral stone, No, No, Ureteral stone with hydronephrosis, Stone protocol, pp_set_radiology_subspeci alty, Not Required, [facility] Medic[facility] What How Much When Instructions [...] thank yo (more content not included)... Normal [facility] Urology Office/Clinic Noteon 11-14-2024 Urology Office/Clinic Note Urology Office/Clinic Note Chief Complaint follow up HPI Staff 54 year old female here for follow up to Cystoscopy, right ureteroscopy, right ureteral stent placement 10/19/24 GERRY and KUB done 11/02/24 at [facility] Previous Dx: Ureteral stone with hydronephrosis Patient [...] Assessment/Plan 54 yo female initially referred by Marie Waggoner, LEELEE- due to kidney stone and JOSE. Denies hx of NE or CVA. Not on anticoagulation. BBSQ 13 (7) Portions of this record may have been created with voice recognition artificial intelligence software, specifically Gigaom, BlackArrow and or MentiNova. Substitutions may have occurred due to the inherent limitations of voice recognition and artificial intelligence software. 1. Ureteral stone with hydronephrosis (N13.2: Hydronephrosis with renal and ureteral calculous obstruction) Pt presented to [facility] ER 09/23/24 due to R sided flank [...] stent at home without difficulty. KUB 11/02/24 [facility] - An approximately 4 x 2 mm calculus overlying the left side of the distal sacrum may be within the distal left ureter or urinary bladder. Renal US 11/02/24 [facility] - The study is mild to moderately limited by the patient's body habitus. Neg for stones or hydro. Discussed KUB findings with pt. Asymptomatic. Denies passage of stone since having imaging done. Discussed ordering CT AP wo con to better evaluate stone noted on KUB. Pt agrees with plan. -CT AP wo con (stone protocol) now at [facility] -F/up in [address] results Patient is a 54-year-old female who had a right ureteroscopy, laser lithotripsy, renal ultrasound was unremarkable. KUB stone a possible distal left ureteral stone. She denies any flank pain. I discussed with the patient that we will proceed with a CT abdomen pelvis to truly assess her stone burden. Follow-up With When Contact Information YESENIA YUSUF MD, URL Additional Instructions: 2 months (CT now at [facility]) Patient Education Dietary Guidelines to Help Prevent [...] 1 tab (more content not included)... Normal [facility] Comment on above: Result Comment: Elec [...] Transcribed by: GREGG Technologist: JESUS ALBERTO Lopez [facility] XR Abdomen 1 Viewon 11-04-19 XR [...] MD Transcribed by: GREGG Technologist: Jessica MCCRACKEN [facility] CBC w/ Auto Diffon 5 Basophils/100 WBC (Bld) 0.5 % Normal 0.0-2.0 [facility] Comment on above: Performed By: #### 2 [id number] #### [facility] [address] [place] [address] Basophils/Leukocytes Auto (Bld) [Pure # fraction] 0.0 E9/L Normal 0.0-0.2 [facility] Comment on above: Performed By: #### 2 [id number] #### [facility] [address] [place] [address] Eosinophils (Bld) [#/Vol] 0.2 E9/L Normal 0.0-0.5 [facility] Comment on above: Performed By: #### 2 117885 #### [facility] [address] [place] [address] Eosinophils/100 WBC (Bld) 2.5 % Normal 0.0-8.0 [facility] Comment on above: Performed By: #### 2 270913 #### [facility] [address] [place] [address] Erythrocyte distribution width (RBC) [Ratio] 14.0 % Normal 10.9-14.2 [facility] Comment on above: Performed By: #### 2 948178 #### [facility] [address] [place] [address] Hematocrit (Bld) [Volume fraction] 44.6 % Normal 34.0-46.0 [facility] Comment on above: Performed By: #### 2 113023 #### [facility] [address] [place] [address] Hemoglobin (Bld) [Mass/Vol] 15.4 g/dL Normal 12.0-16.0 [facility] Comment on above: Performed By: #### 2 599129 #### [facility] [address] [place] [address] Lymphocytes (Bld) [#/Vol] 2.4 E9/L Normal 1.0-4.0 [facility] Comment on above: Performed By: #### 2 839917 #### [facility] [address] [place] [address] Lymphocytes/100 WBC (Bld) 23.5 % Normal 14.0-50.0 [facility] Comment on above: Performed By: #### 2 963201 #### [facility] [address] [place] [address] MCH (RBC) [Entitic mass] 32.3 pg Normal 27.0-34.0 [facility] Comment on above: Performed By: #### 2 813583 #### [facility] [address] [place] [address] MCHC (RBC) [Mass/Vol] 34.5 g/dL Normal 31.4-36.0 [facility] Comment on above: Performed By: #### 2 780771 #### [facility] [address] [place] [address] MCV (RBC) [Entitic vol] 93.6 fL Normal 80.0-100.0 [facility] Comment on above: Performed By: #### 2 832945 #### [facility] [address] [place] [address] Monocytes (Bld) [#/Vol] 0.9 E9/L Normal 0.2-1.0 [facility] Comment on above: Performed By: #### 2 812213 #### [facility] [address] [place] [address] Neutrophils (Bld) [#/Vol] 6.6 E9/L Normal 2.0-7.5 [facility] Comment on above: Performed By: #### 2 918973 #### [facility] [address] [place] [address] Neutrophils/100 WBC (Bld) 64.6 % Normal 36.0-75.0 [facility] Comment on above: Performed By: #### 2 223543 #### [facility] [address] [place] [address] Platelet mean volume (Bld) [Entitic vol] 7.5 fL Normal 6.4-10.8 [facility] Comment on above: Performed By: #### 2 986305 #### [facility] [address] [place] [address] Platelets (Bld) [#/Vol] 383.0 E9/L Normal 150.0-500. 0 [facility] Comment on above: Performed By: #### 2 028992 #### [facility] [address] [place] [address] RBC (Bld) [#/Vol] 4.8 E12/L Normal 4.3-5.9 [facility] Comment on above: Performed By: #### 2 595084 #### [facility] [address] [place] [address] WBC corrected for nucl RBC Auto (Bld) [#/Vol] 10.2 E9/L Normal 4.0-11.0 [facility] Comment on above: Performed By: #### 2 296654 #### [facility] [address] [place] [address] CMPon 11-02-2024 Albumin [Mass/Vol] 4.3 g/dL Normal 3.3-5.0 [facility] Comment on above: Performed By: #### 2 024643 #### [facility] [address] [place] [address] Albumin/Globulin (S) [Mass conc ratio] 1.5 Normal 1.1-2.2 [facility] Comment on above: Performed By: #### 2 005388 #### [facility] [address] [place] [address] ALP [Catalytic activity/Vol] 111 Int._Unit/L High 21-98 [facility] Comment on above: Performed By: #### 2 026930 #### [facility] [address] [place] [address] ALT No additional P-5'-P [Catalytic activity/Vol] 18 Int._Unit/L Normal 6-46 [facility] Comment on above: Performed By: #### 2 123942 #### [facility] [address] [place] [address] Anion gap [Moles/Vol] 13 mmol/L Normal 6-16 [facility] Comment on above: Performed By: #### 2 097213 #### [facility] [address] [place] [address] AST [Catalytic activity/Vol] 16 Int._Unit/L Normal 5-43 [facility] Comment on above: Performed By: #### 2 894711 #### [facility] [address] [place] [address] Bilirubin [Mass/Vol] 0.8 mg/dL Normal 0.0-1.1 [facility] Comment on above: Performed By: #### 2 770840 #### [facility] [address] [place] [address] Calcium [Mass/Vol] 9.4 mg/dL Normal 8.9-11.1 [facility] Comment on above: Performed By: #### 2 972212 #### [facility] [address] [place] [address] Chloride [Moles/Vol] 105 mmol/L Normal 101-111 [facility] Comment on above: Performed By: #### 2 756771 #### [facility] [address] [place] [address] CO2 [Moles/Vol] 26 mmol/L Normal 21-31 [facility] Comment on above: Performed By: #### 2 671303 #### [facility] [address] [place] [address] Creatinine [Mass/Vol] 1.1 mg/dL Normal 0.5-1.3 [facility] Comment on above: Performed By: #### 2 585742 #### [facility] [address] [place] [address] Globulin (S) [Mass/Vol] 2.8 g/dL Normal 1.4-4.0 [facility] Comment on above: Performed By: #### 2 428413 #### [facility] [address] [place] [address] Glucose [Mass/Vol] 100 mg/dL Normal 55-199 [facility] Comment on above: Performed By: #### 2 [id number] #### [facility] [address] [place] [address] Potassium [Moles/Vol] 4.5 mmol/L Normal 3.5-5.3 [facility] Comment on above: Performed By: #### 2 [id number] #### [facility] [address] [place] [address] Protein [Mass/Vol] 7.1 g/dL Normal 6.0-7.8 [facility] Comment on above: Performed By: #### 2 [id number] #### [facility] [address] [place] [address] Sodium [Moles/Vol] 139 mmol/L Normal 135-145 [facility] Comment on above: Performed By: #### 2 [id number] #### [facility] [address] [facility] [place] [address] Urea nitrogen [Mass/Vol] 16 mg/dL Normal 5-21 [facility] Comment on above: Performed By: #### 2 [id number] #### [facility] [address] [facility] [place] [address] Urea nitrogen/Creatinine [Mass ratio] 14 No Units Normal 10-20 [facility] Comment on above: Performed By: #### 2 505189 #### [facility] [address] [place] [address] [id number] 11-02-2024 HbA1c (Bld) [Mass fraction] 5.5 % Normal <=5.9 [facility] Comment on above: Performed By: #### 7 [id number] #### [facility] [address] [place] [address] Lipid Panelon 11-02-2024 Cholesterol [Mass/Vol] 160 mg/dL Normal 120-200 [facility] [place] [facility] Comment on above: Performed By: #### 2 313007 #### [facility] [address] [place] [address] Cholesterol in HDL [Mass/Vol] 36 mg/dL Invalid Interpretation Code [facility] Comment on above: Result Comment: '>= 60 LOW RISK' '<= 40 HIGH RISK' Performed By: #### 2 [id number] #### [facility] [address] [place] [address] Cholesterol in LDL [Mass/Vol] 115 mg/dL Normal <=129 [facility] Comment on above: Performed By: #### 2 071878 #### [facility] [address] [place] [address] Cholesterol in VLDL [Mass/Vol] 27 mg/dL Normal 7-40 [facility] Comment on above: Performed By: #### 2 099675 #### [facility] [address] [place] [address] Triglyceride [Mass/Vol] 134 mg/dL Normal <=149 [facility] Comment on above: Performed By: #### 2 138335 #### [facility] [address] [place] [address] Magnesiumon 11-02-2024 Magnesium [Mass/Vol] 2.0 mg/dL Normal 1.3-2.4 [facility] Comment on above: Performed By: #### 2 [id number] #### [facility] [address] [place] [address] Vit B12on 11-02-2024 Cobalamin (Vitamin B12) [Mass/Vol] 684 pg/mL Normal 50-1500 [facility] Comment on above: Performed By: #### 2 387741 #### [facility] [address] [place] [address] eGFRon 11-02-2024 eGFR 60 mL/min/1.73 m2 Normal >=59 [facility] Comment on above: Performed By: #### 1 [id number] #### [facility] [address] [place] [address] Main OR Intraoperative Recor don 10-23-2024 Main OR Intraoperative Record Main OR Intraoperative Record IntraOp Document Type FT Summary Primary Physician: YESENIA YUSUF MD Finalized Date/Time: 10/23/24 12:38:57 Pt. Name: JOSELITO VIDAL/Sex: 1970 Female Med Rec #: [id number] Physician: YESENIA YUSUF MD Financial #: [id number] Pt. Type: A Room/Bed: AS1 Admit/Disch: 10/19/24 08:59:52 - 10/19/24 14:50:00 Institution: [...] 1 Entry 2 Entry 3 Case Attendee Chris BRYANT, Esther YUSUF MD, Regian Walker Role Performed DIRECTOR OF CLAIMS Surgeon - Primary Extract Operator - Primary Time In 10/19/24 12:22:00 10/19/24 [...] Entry 5 Case Attendee Ta Ibrahim CST RT(R), Kassandra Luis Role Performed Scrub - Primary Associate Web Developer Time In 10/19/24 12:22:00 10/19/24 12:25:00 Time Out 10/19/24 12:44:00 10/19/24 12:44:00 Procedure CYSTOSCOPY W/ HOMIUM CYSTOSCOPY W/ HOMIUM LASER(Right), LASER(Right), CYSTOSCOPY RETROGRADE CYSTOSCOPY RETROGRADE STENT INSERTION(Right) STENT INSERTION(Right) Comments Last Modified By: Regina Walker Kelsie E 10/19/24 12:56:16 10/19/24 12:56:16 General Comments: KENNEDY SWENSON AND TRIMMING CUTTER MACHINE, IN ATTENDANCE.JOSE LAMBERT . Perioperative Protocols FT [...] PATTERSON Kelsie E, Dent CST, Beau, Ware RT(R), Kassandra Luis Time Out Complete [...] to preve (more content not included)... Normal [facility] CHEMISTRYOrdered By: Lab ROP User on 10-19-2024 Glucose [Mass/Vol] 101 mg/dL High 55 - 99 mg/dL [facility] POC Subsection Comment on above: Result Comment: Yana parsons RN/ POC Username BEBO GOODRICH Invalid Interpretation Code [facility] POC Subsection Sodium [Moles/Vol] [id number] mmol/L Invalid Interpretation Code [facility] POC Subsection Sodium [Moles/Vol] [id number] mmol/L Invalid Interpretation Code [facility] POC Subsection Capillary Glucose POCon 10-01 Glucose [Mass/Vol] 101 mg/dL High 55-99 [facility] Comment on above: Result Comment: Yana RIVERA Performed By: #### 2 [id number] ####[facility] [address] [place] [address] Discharge Instructionson Discharge Instructions Discharge Instruc tions [...] Take tylenol, motrin for pain. 6 wks kub Discharge Activity Ambulate as tolerated, Resume normal [...] Matamoros DO Where: [facility] New Follow Up Appointments after Discharge Follow Up with YESENIA YUSUF When: Comments: 6 WKS WITH GERRY AGUIAR Where: [address] [place] [phone] Business (1) Medications What How Much When Instructions Next Dose New hyoscyamine (Levsin 0.125 mg SL Tab) 1 Tablets By Mouth 4 times a day as needed for for spasm Pickup at [facility] New oxycodone (Roxicodone 5 mg Tab) 1 Tablets By Mouth Every 6 hours as needed for for pain Pickup at [facility] New tamsulosin (Flomax 0.4 mg Cap) 1 Capsules By Mouth Every day Pickup at [facility] Unchanged APAP/ butalbital/ caffeine (Esgic [...] Tablets By Mouth Every day Pharmacy Information [facility]: [address] [place] [phone] Devices Implanted/Removed This Visit Notice: You have devices implanted this visit that may not be MRI compatible. Implanted CYSTOSCOPY W/ HOMIUM LASER Ureter R BENAVIDES URETERAL STENT CASCADE 6FR 10/19/2024 Education [facility] [place], [place] Dr. Bradford Hagen Post-operative Instructions for [...] not to (more content not included)... Normal [facility] Comment on above: Result Comment: Elec tronically Signed By: Mily Singh\Date and Time Signed: 10/19/24 13:38 EST Inpatient Patient Summaryon 10-19-2024 Inpatient Patient Summary Inpatient Patient Summary [address] [address] [facility] Clinical Discharge Instructions PERSON INFORMATION Name: JOSELITO VIDAL PHYSICIANS Admitting Physician: YESENIA YUSUF MD Attending Physician: YESENIA YUSUF MD PCP: ELLIE INGRAM CNP Discharge Diagnosis: Comment: PATIENT EDUCATION INFORMATION Instructions: Medication Leaflets: Follow up: With: Address: When: YESENIA YUSUF [address] [place] [phone] Business (1) Comments: 6 WKS WITH GERRY AGUIAR PRIOR Type Location Start Finish State Surgery [facility] 10/19/2024 1:00 PM 10/19/2024 1:30 PM Confirmed Pain Management - New () .[facility] [place] 10/23/2024 10:15 AM 10/23/2024 10:45 AM Confirmed MEDICATION LIST New Medications [facility], [address] [place], [place] [id number], [phone] hyoscyamine (Levsin 0.125 mg SL Tab) 1 [...] Tablets By Mouth every day. Comment: Normal [facility] Main OR PACU I Recordon 10-01 Main OR PACU I Record Main OR PACU I Rec ord PACU Phase I Document Type FT Summary Primary Physician: YESENIA YUSUF MD Finalized Date/Time: 10/19/24 13:30:11 Pt. Name: JOSELITO VIDAL/Sex: 1970 Female Med Rec #: [id number] Physician: YESENIA YUSUF MD Financial #: [id number] Pt. Type: A Room/Bed: [place] [address] Admit/Disch: 10/19/24 08:59:52 - Institution: Case Times [...] 13:30 Suki Mcbride RN 10/19/24 13:30 Normal [facility] Main OR PACU II Recordon Main OR PACU II Record Main OR PACU II R ecord PACU Phase II Document Type FT Summary Primary Physician: YESENIA YUSUF MD Finalized Date/Time: 10/19/24 14:59:43 Pt. Name: JOSELITO VIDAL/Sex: 1970 Female Med Rec #: [id number] Physician: YESENIA YUSUF MD Financial #: [id number] Pt. Type: A Room/Bed: [facility]/ Admit/Disch: 10/19/24 08:59:52 - Institution: Case Times [...] Signed By: Mily Singh 10/19/24 14:59 Normal [facility] Operative Reporton 5 Operative Report Operative Report Patient: JOSELITO VIDAL [...] in the room agreed. A well-lubricated 22 Pashto scopic sheath with 30 lens was sent [...] renal ultrasound prior to office appointment. Normal [facility] Comment on above: Result Comment: Elec tronically Signed By: TREVOR RAMIREZ, YESENIA\.br\Date and Time Signed: 10/19/24 13:47 EST Outpatient Surgery Discharge Instructionon 10-19-2024 Outpatient Surgery Discharge Instruction Outpatient Surgery Discharge Instruction [place] [id number] Patient Discharge Instructions PERSON INFORMATION Name: JOSELITO VIDAL Date of : 1970 Current Date: 10/19/2024 09:58:15 PHYSICIANS Admitting Physician: YESENIA YUSUF MD Discharge Diagnosis: YOUNGSOBEIDADA has been given the following list of [...] THE NEAREST EMERGENCY ROOM OR CALL 911 I, JOSELITO VIDAL, have received the attached patient education materials/instructions and have verbalized understanding: May we do a follow up call? Yes No I was present when discharge instructions were given Patient Signature ___ Date Clinican/Nurse Signature Date Follow up: With: Address: When: YESENIA AVERYCHRISTOPHER [address], [place] [phone] Business (1) Comments: 6 WKS WITH GERRY AGUIAR Type Location Start Finish State Surgery [facility] 10/19/2024 1:00 PM 10/19/2024 1:30 PM Confirmed Pain Management - New (FT) .[facility] [place] 10/23/2024 10:15 AM 10/23/2024 10:45 AM Confirmed [...] to serve you. Thank you for choosing [facility] HERE ARE THE MEDICATION CHANGES THAT OCCURRED DURING YOUR HOSPITAL STAY New Medications [facility], [address] [place], [place] [id number], [phone] hyoscyamine (Levsin 0.125 mg SL Tab) 1 [...] day. PATIENT EDUCATION INFORMATION Instructions: Medication Leaflets: [facility] Patient Education - Texton 0 10-19-2024 Patient Education - Text Patient Education - Text [facility] XR Chest 2 Viewson XR Chest [...] Meza MD Transcribed by: GREGG Technologist: ADAM Lopez [facility] BMPon 10-12-2024 Anion gap [Moles/Vol] 10 mmol/L Normal 6-16 [facility] Comment on above: Performed By: #### 2 [id number] #### [facility] [address] [place] [address] Calcium [Mass/Vol] 8.6 mg/dL Low 8.9-11.1 [facility] Comment on above: Performed By: #### 2 [id number] #### [facility] [address] [place] [address] Chloride [Moles/Vol] 107 mmol/L Normal 101-111 [facility] Comment on above: Performed By: #### 2 007962 #### [facility] [address] [place] [address] CO2 [Moles/Vol] 27 mmol/L Normal 21-31 [facility] Comment on above: Performed By: #### 2 826396 #### [facility] [address] [place] [address] Creatinine [Mass/Vol] 0.9 mg/dL Normal 0.5-1.3 [facility] Comment on above: Performed By: #### 2 373398 #### [facility] [address] [place] [address] Glucose [Mass/Vol] 73 mg/dL Normal 55-199 [facility] Comment on above: Performed By: #### 2 097746 #### [facility] [address] [place] [address] Potassium [Moles/Vol] 4.3 mmol/L Normal 3.5-5.3 [facility] Comment on above: Performed By: #### 2 515503 #### [facility] [address] [place] [address] Sodium [Moles/Vol] 140 mmol/L Normal 135-145 [facility] Comment on above: Performed By: #### 2 462278 #### [facility] [address] [place] [address] Urea nitrogen [Mass/Vol] 10 mg/dL Normal 5-21 [facility] Comment on above: Performed By: #### 2 677740 #### [facility] [address] [place] [address] Urea nitrogen/Creatinine [Mass ratio] 11 No Units Normal 10-20 [facility] Comment on above: Performed By: #### 2 692515 #### [facility] [address] [place] [address] CBC w/ Auto Diffon 5 Basophils/100 WBC (Bld) 0.6 % Normal 0.0-2.0 [facility] Comment on above: Performed By: #### 2 428101 #### [facility] [address] [place] [address] Basophils/Leukocytes Auto (Bld) [Pure # fraction] 0.0 E9/L Normal 0.0-0.2 [facility] Comment on above: Performed By: #### 2 015931 #### [facility] [address] [place] [address] Eosinophils (Bld) [#/Vol] 0.2 E9/L Normal 0.0-0.5 [facility] Comment on above: Performed By: #### 2 367394 #### [facility] [address] [place] [address] Eosinophils/100 WBC (Bld) 2.8 % Normal 0.0-8.0 [facility] Comment on above: Performed By: #### 2 660497 #### [facility] [address] [place] [address] Erythrocyte distribution width (RBC) [Ratio] 14.7 % High 10.9-14.2 [facility] Comment on above: Performed By: #### 2 771107 #### [facility] [address] [place] [address] Hematocrit (Bld) [Volume fraction] 44.4 % Normal 34.0-46.0 [facility] Comment on above: Performed By: #### 2 272675 #### [facility] [address] [place] [address] Hemoglobin (Bld) [Mass/Vol] 14.9 g/dL Normal 12.0-16.0 [facility] Comment on above: Performed By: #### 2 088432 #### [facility] [address] [place] [address] Lymphocytes (Bld) [#/Vol] 2.2 E9/L Normal 1.0-4.0 [facility] Comment on above: Performed By: #### 2 183401 #### [facility] [address] [place] [address] Lymphocytes/100 WBC (Bld) 29.1 % Normal 14.0-50.0 [facility] Comment on above: Performed By: #### 2 614516 #### [facility] [address] [place] [address] MCH (RBC) [Entitic mass] 31.6 pg Normal 27.0-34.0 [facility] Comment on above: Performed By: #### 2 852210 #### [facility] [address] [place] [address] MCHC (RBC) [Mass/Vol] 33.5 g/dL Normal 31.4-36.0 [facility] Comment on above: Performed By: #### 2 524788 #### [facility] [address] [place] [address] MCV (RBC) [Entitic vol] 94.3 fL Normal 80.0-100.0 [facility] Comment on above: Performed By: #### 2 813859 #### [facility] [address] [place] [address] Monocytes (Bld) [#/Vol] 0.7 E9/L Normal 0.2-1.0 [facility] Comment on above: Performed By: #### 2 744342 #### [facility] [address] [place] [address] Neutrophils (Bld) [#/Vol] 4.4 E9/L Normal 2.0-7.5 [facility] Comment on above: Performed By: #### 2 435687 #### [facility] [address] [place] [address] Neutrophils/100 WBC (Bld) 58.8 % Normal 36.0-75.0 [facility] Comment on above: Performed By: #### 2 236909 #### [facility] [address] [place] [address] Platelet 359.0 E9/L Normal 150.0-500. 0 [facility] Comment on above: Performed By: #### 2 900677 #### [facility] [address] [place] [address] Platelet mean volume (Bld) [Entitic vol] 7.7 fL Normal 6.4-10.8 [facility] Comment on above: Performed By: #### 2 516656 #### [facility] [address] [place] [address] RBC (Bld) [#/Vol] 4.7 E12/L Normal 4.3-5.9 [facility] Comment on above: Performed By: #### 2 955960 #### [facility] [address] [place] [address] WBC corrected for nucl RBC Auto (Bld) [#/Vol] 7.5 E9/L Normal 4.0-11.0 [facility] Comment on above: Performed By: #### 2 760755 #### [facility] [address] [place] [address] CHEMISTRYOrdered By: SYSTEM SYSTEM on 10-12-2024 Anion [...] 33.5 s Normal 25.1 - 36.5 second(s) [facility] Auto Coag Comment on above: Interpretive Data: [...] were obtained from a study by Kenney Reno, et al. prepared from 1437 samples obtained at 7 different centers using the same coagulation reagent and instrumentation as [facility]. Currently there are no coagulation studies available worldwide for children to 14 days, and no normal ranges. Heparin therapeutic range (represented by Anti-Factor Xa activity of 0.2 - 0.4 U/mL) corresponds to PTT of 56.6 - 109.0 sec. INR Coag (PPP) [Relative time] 1.03 {INR} Invalid Interpretation Code [facility] Auto Coag Comment on above: Interpretive Data: I NR results are specifically intended to assess patients stabilized on long-term Anticoagulation therapy suggested INR s Less Intensive Anticoagulation 2.0 3.0 Conventional Range 3.0 4.5 PT Coag (PPP) [Time] 11.5 s Normal 9.4 - 1 2.5 second(s) [facility] Auto Coag Comment on above: Interpretive Data: [...] the same coagulation reagent and instrumentation as [facility]. Currently there are no coagulation studies available [...] Coag (PPP) [Time] 33.5 second(s) Normal 25.1-36.5 [facility] Comment on above: Result Comment: Para [...] the same coagulation reagent and instrumentation as [facility]. Currently there are no coagulation studies available worldwide for children to 14 days, and no normal ranges. Heparin therapeutic range (represented by Anti-Factor Xa activity of 0.2 - 0.4 U/mL) corresponds to PTT of 56.6 - 109.0 sec. Performed By: #### 1 [id number] #### [facility] [address] [place] [address] INR Coag (PPP) [Relative time] 1.03 {INR} Invalid Interpretation Code [facility] Comment on above: Result Comment: INR results are specifically intended to assess patients stabilized on long-term Anticoagulation therapy suggested INR???s ???Less Intensive Anticoagulation??? 2.0 ??? 3.0 Conventional Range 3.0 ??? 4.5 Performed By: #### 1 [id number] #### [facility] [address] [place] [address] PT Coag (PPP) [Time] 11.5 second(s) Normal 9.4-12.5 [facility] Comment on above: Result Comment: 15 [...] the same coagulation reagent and instrumentation as [facility]. Currently there are no coagulation studies available worldwide for children to 14 days, and no normal ranges. Performed By: #### 1 [id number] #### [facility] [address] [place] [address] eGFRon 10-12-2024 eGFR 76 mL/min/1.73 m2 Normal >=59 [facility] Comment on above: Performed By: #### 1 [id number] #### [facility] [address] [place] [address] Ambulatory Visit Summaryon 0 10-09-2024 Ambulatory Visit [...] a hea (more content not included)... Normal [facility] Provider Letteron 10-09-2024 Provider Letter Provider Letter October 09, 2024 JOSELITO VIDAL [address] [place] [id number] : 1970 To Whom It May Concern, Please excuse Blank Niño (caregiver for above patient) from work. Date of Illness: From: 10/19/24 To: 10/20/24 May Return to Work On: 10/20/24 Sincerely, Dr Yesenia Yusuf MD Normal [facility] Urology Office/Clinic Noteon 10-09-2024 Urology Office/Clinic Note Urology Office/Clinic Note HPI Staff 53 year old female new patient here for follow up to [place] ER 09/23/24 due to ureteral stone CT [...] mood. Assessment/Plan 53 yo female referred by STANISLAV Maldonado due to kidney stone and JOSE. Denies hx of NE or CVA. Not on anticoagulation. BBSQ 7 Portions of this record may have been created with voice recognition artificial intelligence software, specifically [employer], [employer]row and or [employer]enti[employer]ova. Substitutions may have occurred due to the inherent limitations of voice recognition and artificial intelligence software. 1. Ureteral stone with hydronephrosis (N13.2: Hydronephrosis with renal and ureteral calculous obstruction) Pt presented to [facility] ER 09/23/24 due to R sided flank [...] for surgery. Follow-up With When Contact Information YESENIA YUSUF MD, URL Additional Instructions: Schedule laser litho Patient Education Ureteroscopy Suly Hull, personally scribed for Dr. Avery on 10/09/2024 11:41:27. . Documentation recorded by the ginnyibSuly hong, accurately reflects the services(s) I performed and decisions made by me. Authenticated by Dr. Yusuf on 10/09/2024 12:01:37. Problem List/Past Medical History Ongoing Arthritis of right knee Disorder of auton (more content not included)... Normal [facility] Comment on above: Result Comment: Elec tronically Signed By: YESENIA YUSUF MD\.br\Date and Time Signed: 10/09/24 12:01 EST\.br\Electronically Co-Signed By: Suly Burrell.br\Date and Time Co-Signed: 10/09/24 11:42 EST ECG 12 lead (Clinic Performe d)on 07-31-2024 NSR no ischemia [facility] [place] Work Phone: T3 Totalon 06-24-2024 T3 [Mass/Vol] 94 ng/dL Invalid Interpretation Code [id number] [facility] Comment on above: Result Comment: Perf ormed at: [facility] [address] [id number] PhD Cameron Melara Performed By: #### 1 [id number] #### [facility] [address] [place] [address] CBC w/ Auto Diffon Basophils/100 WBC (Bld) 1.0 % Normal 0.0-2.0 [facility] Comment on above: Performed By: #### 2 139181 #### [facility] [address] [place] [address] Basophils/Leukocytes Auto (Bld) [Pure # fraction] 0.1 E9/L Normal 0.0-0.2 [facility] Comment on above: Performed By: #### 2 551651 #### [facility] [address] [place] [address] Eosinophils (Bld) [#/Vol] 0.2 E9/L Normal 0.0-0.5 [facility] Comment on above: Performed By: #### 2 826467 #### [facility] [address] [place] [address] Eosinophils/100 WBC (Bld) 2.5 % Normal 0.0-8.0 [facility] Comment on above: Performed By: #### 2 [id number] #### [facility] [address] [place] [address] Erythrocyte distribution width (RBC) [Ratio] 14.1 % Normal 10.9-14.2 [facility] Comment on above: Performed By: #### 2 348148 #### [facility] [address] [place] [address] Hematocrit (Bld) [Volume fraction] 42.5 % Normal 34.0-46.0 [facility] Comment on above: Performed By: #### 2 578166 #### [facility] [address] [place] [address] Hemoglobin (Bld) [Mass/Vol] 14.4 g/dL Normal 12.0-16.0 [facility] Comment on above: Performed By: #### 2 744897 #### [facility] [address] [place] [address] Lymphocytes (Bld) [#/Vol] 2.3 E9/L Normal 1.0-4.0 [facility] Comment on above: Performed By: #### 2 167453 #### [facility] [address] [place] [address] Lymphocytes/100 WBC (Bld) 28.9 % Normal 14.0-50.0 [facility] Comment on above: Performed By: #### 2 654533 #### [facility] [address] [place] [address] MCH (RBC) [Entitic mass] 31.4 pg Normal 27.0-34.0 [facility] Comment on above: Performed By: #### 2 547578 #### [facility] [address] [place] [address] MCHC (RBC) [Mass/Vol] 33.9 g/dL Normal 31.4-36.0 [facility] Comment on above: Performed By: #### 2 023725 #### [facility] [address] [place] [address] MCV (RBC) [Entitic vol] 92.8 fL Normal 80.0-100.0 [facility] Comment on above: Performed By: #### 2 256080 #### [facility] [address] [place] [address] Monocytes (Bld) [#/Vol] 0.7 E9/L Normal 0.2-1.0 [facility] Comment on above: Performed By: #### 2 042560 #### [facility] [address] [place] [address] Neutrophils (Bld) [#/Vol] 4.7 E9/L Normal 2.0-7.5 [facility] Comment on above: Performed By: #### 2 598662 #### [facility] [address] [place] [address] Neutrophils/100 WBC (Bld) 58.7 % Normal 36.0-75.0 [facility] Comment on above: Performed By: #### 2 243052 #### [facility] [address] [place] [address] Platelet 424.0 E9/L Normal 150.0-500. 0 [facility] Comment on above: Performed By: #### 2 799592 #### [facility] [facility] [address] [place] [address] Platelet mean volume (Bld) [Entitic vol] 7.6 fL Normal 6.4-10.8 [facility] Comment on above: Performed By: #### 2 [id number] #### [facility] [address] [place] [address] RBC (Bld) [#/Vol] 4.6 E12/L Normal 4.3-5.9 [facility] Comment on above: Performed By: #### 2 122692 #### [facility] [address] [place] [address] WBC corrected for nucl RBC Auto (Bld) [#/Vol] 7.9 E9/L Normal 4.0-11.0 [facility] Comment on above: Performed By: #### 2 596349 #### [facility] [address] [place] [address] CMPon 06-23-2024 Albumin [Mass/Vol] 4.1 g/dL Normal 3.3-5.0 [facility] Comment on above: Performed By: #### 2 263022 #### [facility] [address] [place] [address] Albumin/Globulin (S) [Mass conc ratio] 1.6 Normal 1.1-2.2 [facility] Comment on above: Performed By: #### 2 031880 #### [facility] [address] [place] [address] ALP [Catalytic activity/Vol] 111 Int._Unit/L High 21-98 [facility] Comment on above: Performed By: #### 2 720647 #### [facility] [address] [place] [address] ALT No additional P-5'-P [Catalytic activity/Vol] 14 Int._Unit/L Normal 6-46 [facility] Comment on above: Performed By: #### 2 887767 #### [facility] [address] [place] [address] Anion gap [Moles/Vol] 12 mmol/L Normal 6-16 [facility] Comment on above: Performed By: #### 2 218493 #### [facility] [address] [place] [address] AST [Catalytic activity/Vol] 12 Int._Unit/L Normal 5-43 [facility] Comment on above: Performed By: #### 2 542772 #### [facility] [address] [place] [address] Bilirubin [Mass/Vol] 0.4 mg/dL Normal 0.0-1.1 [facility] Comment on above: Performed By: #### 2 892491 #### [facility] [address] [place] [address] Calcium [Mass/Vol] 9.3 mg/dL Normal 8.9-11.1 [facility] Comment on above: Performed By: #### 2 546399 #### [facility] [address] [place] [address] Chloride [Moles/Vol] 108 mmol/L Normal 101-111 [facility] Comment on above: Performed By: #### 2 240942 #### [facility] [address] [place] [address] CO2 [Moles/Vol] 25 mmol/L Normal 21-31 [facility] Comment on above: Performed By: #### 2 887775 #### [facility] [address] [place] [address] Creatinine [Mass/Vol] 1.1 mg/dL Normal 0.5-1.3 [facility] Comment on above: Performed By: #### 2 465361 #### [facility] [address] [place] [address] Globulin (S) [Mass/Vol] 2.5 g/dL Normal 1.4-4.0 [facility] Comment on above: Performed By: #### 2 158398 #### [facility] [address] [place] [address] Glucose [Mass/Vol] 85 mg/dL Normal 55-199 [facility] Comment on above: Performed By: #### 2 833713 #### [facility] [address] [place] [address] Potassium [Moles/Vol] 4.4 mmol/L Normal 3.5-5.3 [facility] Comment on above: Performed By: #### 2 479113 #### [facility] [address] [place] [address] Protein [Mass/Vol] 6.6 g/dL Normal 6.0-7.8 [facility] Comment on above: Performed By: #### 2 389795 #### [facility] [address] [place] [address] Sodium [Moles/Vol] 141 mmol/L Normal 135-145 [facility] Comment on above: Performed By: #### 2 925829 #### [facility] [address] [place] [address] Urea nitrogen [Mass/Vol] 13 mg/dL Normal 5-21 [facility] Comment on above: Performed By: #### 2 721002 #### [facility] [address] [place] [address] Urea nitrogen/Creatinine [Mass ratio] 12 No Units Normal - [facility] Comment on above: Performed By: #### 2 987779 #### [facility] [address] [place] [address] [id number] 06-23-2024 HbA1c (Bld) [Mass fraction] 5.8 % Normal <=5.9 [facility] Comment on above: Performed By: #### 7 [id number] #### [facility] [address] [place] [address] Lipid Panelon 06-23-2024 Cholesterol [Mass/Vol] 185 mg/dL Normal 120-200 [facility] Comment on above: Performed By: #### 2 429961 #### [facility] [address] [place] [address] Cholesterol in HDL [Mass/Vol] 40 mg/dL Invalid Interpretation Code [facility] Comment on above: Result Comment: '>= 60 LOW RISK' '<= 40 HIGH RISK' Performed By: #### 2 006695 #### [facility] [address] [place] [address] Cholesterol in LDL [Mass/Vol] 132 mg/dL High <=129 [facility] Comment on above: Performed By: #### 2 127144 #### [facility] [address] [place] [address] Cholesterol in VLDL [Mass/Vol] 43 mg/dL High 7-40 [facility] Comment on above: Performed By: #### 2 000500 #### [facility] [address] [place] [address] Triglyceride [Mass/Vol] 213 mg/dL High <=149 [facility] Comment on above: Performed By: #### 2 731631 #### [facility] [address] [place] [address] T4 & TSHon 06-23-2024 TSH Qn 0.98 m[IU]/L Normal 0.34-5.60 [facility] Comment on above: Performed By: #### 1 1988369 #### [facility] [address] [place] [address] T4 [Mass/Vol] 8.2 microgram/dL Normal 4.6-9.1 [facility] Comment on above: Performed By: #### 1 [id number] #### [facility] [address] [place] [address] Vit B12on 06-23-2024 Cobalamin (Vitamin B12) [Mass/Vol] 208 pg/mL Normal 50-1500 [facility] Comment on above: Performed By: #### 2 348194 #### [facility] [address] [place] [address] eGFRon 06-23-2024 eGFR 60 mL/min/1.73 m2 Normal >=59 [facility] Comment on above: Performed By: #### 1 [id number] #### [facility] [address] [place] [address] CBC w/ Auto Diffon 4 Basophils/100 WBC (Bld) 1.1 % Normal 0.0-2.0 [facility] Comment on above: Performed By: #### 2 580037 #### [facility] [address] [place] [address] Basophils/Leukocytes Auto (Bld) [Pure # fraction] 0.1 E9/L Normal 0.0-0.2 [facility] Comment on above: Performed By: #### 2 261284 #### [facility] [address] [place] [address] Eosinophils (Bld) [#/Vol] 0.2 E9/L Normal 0.0-0.5 [facility] Comment on above: Performed By: #### 2 354431 #### [facility] [address] [place] [address] Eosinophils/100 WBC (Bld) 2.7 % Normal 0.0-8.0 [facility] Comment on above: Performed By: #### 2 295012 #### [facility] [address] [place] [address] Erythrocyte distribution width (RBC) [Ratio] 15.0 % High 10.9-14.2 [facility] Comment on above: Performed By: #### 2 201623 #### [facility] [address] [place] [address] Hematocrit (Bld) [Volume fraction] 45.5 % Normal 34.0-46.0 [facility] Comment on above: Performed By: #### 2 401662 #### [facility] [address] [place] [address] Hemoglobin (Bld) [Mass/Vol] 15.4 g/dL Normal 12.0-16.0 [facility] Comment on above: Performed By: #### 2 469773 #### [facility] [address] [place] [address] Lymphocytes (Bld) [#/Vol] 2.5 E9/L Normal 1.0-4.0 [facility] Comment on above: Performed By: #### 2 847334 #### [facility] [address] [place] [address] Lymphocytes/100 WBC (Bld) 27.7 % Normal 14.0-50.0 [facility] Comment on above: Performed By: #### 2 191981 #### [facility] [address] [place] [address] MCH (RBC) [Entitic mass] 31.4 pg Normal 27.0-34.0 [facility] Comment on above: Performed By: #### 2 505526 #### [facility] [address] [place] [address] MCHC (RBC) [Mass/Vol] 33.9 g/dL Normal 31.4-36.0 [facility] Comment on above: Performed By: #### 2 726278 #### [facility] [address] [place] [address] MCV (RBC) [Entitic vol] 92.5 fL Normal 80.0-100.0 [facility] Comment on above: Performed By: #### 2 475150 #### [facility] [address] [place] [address] Monocytes (Bld) [#/Vol] 0.7 E9/L Normal 0.2-1.0 [facility] Comment on above: Performed By: #### 2 865178 #### [facility] [address] [place] [address] Neutrophils (Bld) [#/Vol] 5.4 E9/L Normal 2.0-7.5 [facility] Comment on above: Performed By: #### 2 135211 #### [facility] [address] [place] [address] Neutrophils/100 WBC (Bld) 60.7 % Normal 36.0-75.0 [facility] Comment on above: Performed By: #### 2 076365 #### [facility] [address] [place] [address] Platelet 446.0 E9/L Normal 150.0-500. 0 [facility] Comment on above: Performed By: #### 2 520415 #### [facility] [address] [place] [address] Platelet mean volume (Bld) [Entitic vol] 7.9 fL Normal 6.4-10.8 [facility] Comment on above: Performed By: #### 2 686479 #### [facility] [address] [place] [address] RBC (Bld) [#/Vol] 4.9 E12/L Normal 4.3-5.9 [facility] Comment on above: Performed By: #### 2 690610 #### [facility] [address] [place] [address] WBC corrected for nucl RBC Auto (Bld) [#/Vol] 8.9 E9/L Normal 4.0-11.0 [facility] Comment on above: Performed By: #### 2 800429 #### [facility] [address] [place] [address] CMPon 05-04-2024 Albumin [Mass/Vol] 4.1 g/dL Normal 3.3-5.0 [facility] Comment on above: Performed By: #### 2 551020 #### [facility] [address] [place] [address] Albumin/Globulin (S) [Mass conc ratio] 1.4 Normal 1.1-2.2 [facility] Comment on above: Performed By: #### 2 441413 #### [facility] [address] [place] [address] ALP [Catalytic activity/Vol] 134 Int._Unit/L High 21-98 [facility] Comment on above: Performed By: #### 2 884995 #### [facility] [address] [place] [address] ALT No additional P-5'-P [Catalytic activity/Vol] 18 Int._Unit/L Normal 6-46 [facility] Comment on above: Performed By: #### 2 738369 #### [facility] [address] [place] [address] Anion gap [Moles/Vol] 13 mmol/L Normal 6-16 [facility] Comment on above: Performed By: #### 2 349341 #### [facility] [address] [place] [address] AST [Catalytic activity/Vol] 13 Int._Unit/L Normal 5-43 [facility] Comment on above: Performed By: #### 2 533051 #### [facility] [address] [place] [address] Bilirubin [Mass/Vol] 0.4 mg/dL Normal 0.0-1.1 [facility] Comment on above: Performed By: #### 2 331731 #### [facility] [address] [place] [address] Calcium [Mass/Vol] 9.3 mg/dL Normal 8.9-11.1 [facility] Comment on above: Performed By: #### 2 804594 #### [facility] [address] [place] [address] Chloride [Moles/Vol] 103 mmol/L Normal 101-111 [facility] Comment on above: Performed By: #### 2 066134 #### [facility] [address] [place] [address] CO2 [Moles/Vol] 27 mmol/L Normal 21-31 [facility] Comment on above: Performed By: #### 2 922811 #### [facility] [address] [address] Creatinine [Mass/Vol] 1.2 mg/dL Normal 0.5-1.3 [facility] Comment on above: Performed By: #### 2 170606 #### [facility] [address] [facility] [place] [address] Globulin (S) [Mass/Vol] 2.9 g/dL Normal 1.4-4.0 [facility] Comment on above: Performed By: #### 2 607826 #### [facility] [address] [place] [address] Glucose [Mass/Vol] 103 mg/dL Normal 55-199 [facility] Comment on above: Performed By: #### 2 848112 #### [facility] [address] [place] [address] Potassium [Moles/Vol] 4.9 mmol/L Normal 3.5-5.3 [facility] Comment on above: Performed By: #### 2 272403 #### [facility] [address] [place] [address] Protein [Mass/Vol] 7.0 g/dL Normal 6.0-7.8 [facility] Comment on above: Performed By: #### 2 773840 #### [facility] [address] [place] [address] Sodium [Moles/Vol] 138 mmol/L Normal 135-145 [facility] Comment on above: Performed By: #### 2 453079 #### [facility] [address] [place] [address] Urea nitrogen [Mass/Vol] 11 mg/dL Normal 5-21 [facility] Comment on above: Performed By: #### 2 744590 #### [facility] [address] [place] [address] Urea nitrogen/Creatinine [Mass ratio] 9 No Units Low 10-20 [facility] Comment on above: Performed By: #### 2 240352 #### [facility] [address] [place] [address] Lipid Panelon 05-04-2024 Cholesterol [Mass/Vol] 177 mg/dL Normal 120-200 [facility] Comment on above: Performed By: #### 2 331115 #### [facility] [address] [place] [address] Cholesterol in HDL [Mass/Vol] 43 mg/dL Invalid Interpretation Code [facility] Comment on above: Result Comment: '>= 60 LOW RISK' '<= 40 HIGH RISK' Performed By: #### 2 121173 #### [facility] [address] [place] [address] Cholesterol in LDL [Mass/Vol] 125 mg/dL Normal <=129 [facility] Comment on above: Performed By: #### 2 457735 #### [facility] [address] [place] [address] Cholesterol in VLDL [Mass/Vol] 33 mg/dL Normal 7-40 [facility] Comment on above: Performed By: #### 2 788388 #### [facility] [address] [place] [address] Triglyceride [Mass/Vol] 165 mg/dL High <=149 [facility] Comment on above: Performed By: #### 2 312159 #### [facility] [address] [place] [address] T4 & TSHon 05-04-2024 TSH Qn 1.28 m[IU]/L Normal 0.34-5.60 [facility] Comment on above: Performed By: #### 1 8210116 #### [facility] [address] [place] [address] T4 [Mass/Vol] 9.2 microgram/dL High 4.6-9.1 [facility] Comment on above: Performed By: #### 1 0971346 #### [facility] [address] [place] [address] Vit B12on 05-04-2024 Cobalamin (Vitamin B12) [Mass/Vol] 186 pg/mL Normal 50-1500 [facility] Comment on above: Performed By: #### 2 745119 #### [facility] [address] [place] [address] eGFRon 05-04-2024 eGFR 54 mL/min/1.73 m2 Low >=59 [facility] Comment on above: Order Comment: Order added by Discern Expert. Performed By: #### 1 [id number] #### [facility] [address] [place] [address] FLUORO FOR SURGICAL PROCEDUR ESon 03-21-2024 FLUORO FOR SURGICAL PROCEDURES Radiology exam is complete. No Radiologist dictation. Please follow up with ordering provider. Final result Normal [facility] Physician Orderon 02-23-2024 Physician Order [id number]#1.00TIFF Normal [facility] CMPon 01-21-2024 Albumin [Mass/Vol] 3.7 g/dL Normal 3.3-5.0 [facility] Comment on above: Performed By: #### 2 772597 #### [facility] [address] [place] [address] Albumin/Globulin (S) [Mass conc ratio] 1.6 Normal 1.1-2.2 [facility] Comment on above: Performed By: #### 2 508993 #### [facility] [address] [place] [address] ALP [Catalytic activity/Vol] 114 Int._Unit/L High 21-98 [facility] Comment on above: Performed By: #### 2 357155 #### [facility] [address] [place] [address] ALT No additional P-5'-P [Catalytic activity/Vol] 18 Int._Unit/L Normal 6-46 [facility] Comment on above: Performed By: #### 2 873924 #### [facility] [address] [place] [address] Anion gap [Moles/Vol] 9 mmol/L Normal 6-16 [facility] Comment on above: Performed By: #### 2 065889 #### [facility] [address] [place] [address] AST [Catalytic activity/Vol] 13 Int._Unit/L Normal 5-43 [facility] Comment on above: Performed By: #### 2 896988 #### [facility] [address] [place] [address] Bilirubin [Mass/Vol] 0.3 mg/dL Normal 0.0-1.1 [facility] Comment on above: Performed By: #### 2 915293 #### [facility] [address] [place] [address] Calcium [Mass/Vol] 8.5 mg/dL Low 8.9-11.1 [facility] Comment on above: Performed By: #### 2 060877 #### [facility] [address] [place] [address] Chloride [Moles/Vol] 106 mmol/L Normal 101-111 [facility] Comment on above: Performed By: #### 2 385359 #### [facility] [address] [place] [address] CO2 [Moles/Vol] 27 mmol/L Normal 21-31 [facility] Comment on above: Performed By: #### 2 996684 #### [facility] [address] [place] [address] Creatinine [Mass/Vol] 0.9 mg/dL Normal 0.5-1.3 [facility] Comment on above: Performed By: #### 2 567967 #### [facility] [address] [place] [address] Globulin (S) [Mass/Vol] 2.3 g/dL Normal 1.4-4.0 [facility] Comment on above: Performed By: #### 2 010385 #### [facility] [address] [place] [address] Glucose [Mass/Vol] 107 mg/dL Normal 55-199 [facility] Comment on above: Performed By: #### 2 252971 #### [facility] [address] [place] [address] Potassium [Moles/Vol] 4.3 mmol/L Normal 3.5-5.3 [facility] Comment on above: Performed By: #### 2 906557 #### [facility] [address] [place] [address] Protein [Mass/Vol] 6.0 g/dL Normal 6.0-7.8 [facility] Comment on above: Performed By: #### 2 294612 #### [facility] [address] [place] [address] Sodium [Moles/Vol] 138 mmol/L Normal 135-145 [facility] Comment on above: Performed By: #### 2 121458 #### [facility] [address] [place] [address] Urea nitrogen [Mass/Vol] 11 mg/dL Normal 5-21 [facility] Comment on above: Performed By: #### 2 053115 #### [facility] [address] [place] [address] Urea nitrogen/Creatinine [Mass ratio] 12 No Units Normal 10-20 [facility] Comment on above: Performed By: #### 2 732568 #### [facility] [address] [place] [address] Physician Orderon 01-21-2024 Physician Order [id number]#1.00TIFF Normal [facility] eGFRon 01-21-2024 eGFR 77 mL/min/1.73 m2 Normal >=59 [facility] Comment on above: Order Comment: Order added by Discern Expert. Performed By: #### 1 [id number] #### [facility] [address] [place] [address] [place] GUIDED FOR SPINE INJECTon 12-23-2023 [place] GUIDED FOR SPINE INJECT Final result Normal [facility] BRITNI w/Reflex if POSon 2023 Nuclear Ab Ql (S) Negative Invalid Interpretation Code Negative [facility] Comment on above: Result Comment: Perf ormed at: [facility] [address], [place] [id number] PhD Cameron Melara Performed By: #### 7 [id number], 7102261, 19583246, [id number] #### [facility] [address] [place] [address] RF Quanton 11-26-2023 Rheumatoid factor Qn [IU]/mL Invalid Interpretation Code <14.0 [facility] Comment on above: Result Comment: Perf ormed at: [facility] [address], [place] [id number] PhD Cameron Melara Performed By: #### 1 0770096, [id number], 51523153, 2453655 #### [facility] [address] [place] [address] CMPon 11-24-2023 Albumin [Mass/Vol] 4.3 g/dL Normal 3.3-5.0 [facility] Comment on above: Performed By: #### 1 7001848, 19162959, 59759129, 7469485 #### [facility] [address] [place] [address] Albumin/Globulin (S) [Mass conc ratio] 1.9 Normal 1.1-2.2 [facility] Comment on above: Performed By: #### 1 9017862, 84521518, 60965938, 8378009 #### [facility] [address] [place] [address] ALP [Catalytic activity/Vol] 91 Int._Unit/L Normal 21-98 [facility] Comment on above: Performed By: #### 1 3607093, 18146001, 75606271, 4910710 #### [facility] [address] [place] [address] ALT No additional P-5'-P [Catalytic activity/Vol] 17 Int._Unit/L Normal 6-46 [facility] Comment on above: Performed By: #### 1 8450622, 06043515, 70589455, 9204803 #### [facility] [address] [place] [address] Anion gap [Moles/Vol] 12 mmol/L Normal 6-16 [facility] Comment on above: Performed By: #### 1 3859478, 25321989, 58519151, 2422722 #### [facility] [address] [place] [address] AST [Catalytic activity/Vol] 13 Int._Unit/L Normal 5-43 [facility] Comment on above: Performed By: #### 1 1842173, 96312306, 07179986, 5966447 #### [facility] [address] [place] [address] Bilirubin [Mass/Vol] 0.4 mg/dL Normal 0.0-1.1 [facility] Comment on above: Performed By: #### 1 4502353, 38653511, 03523746, 2487936 #### [facility] [address] [place] [address] Calcium [Mass/Vol] 9.8 mg/dL Normal 8.9-11.1 [facility] Comment on above: Performed By: #### 1 7157754, 02749644, 15120013, 5648938 #### [facility] [address] [place] [address] Chloride [Moles/Vol] 107 mmol/L Normal 101-111 [facility] Comment on above: Performed By: #### 1 1348922, 01829403, 33797087, 0642570 #### [facility] [address] [place] [address] CO2 [Moles/Vol] 26 mmol/L Normal 21-31 [facility] Comment on above: Performed By: #### 1 5375906, 42714818, 61632481, 3535721 #### [facility] [address] [place] [address] Creatinine [Mass/Vol] 1.1 mg/dL Normal 0.5-1.3 [facility] Comment on above: Performed By: #### 1 1262320, 93823096, 93550245, 4769442 #### [facility] [address] [place] [address] Globulin (S) [Mass/Vol] 2.3 g/dL Normal 1.4-4.0 [facility] Comment on above: Performed By: #### 1 6261197, 68073688, 68183443, 8218483 #### [facility] [address] [place] [address] Glucose [Mass/Vol] 64 mg/dL Normal 55-199 [facility] Comment on above: Performed By: #### 1 1959594, 07283191, 22153344, 9105205 #### [facility] [address] [place] [address] Potassium [Moles/Vol] 4.5 mmol/L Normal 3.5-5.3 [facility] Comment on above: Performed By: #### 1 6845419, 51596073, 71540911, 2858133 #### [facility] [address] [place] [address] Protein [Mass/Vol] 6.6 g/dL Normal 6.0-7.8 [facility] Comment on above: Performed By: #### 1 3434158, 10150562, 30076991, 7658799 #### [facility] [address] [place] [address] Sodium [Moles/Vol] 140 mmol/L Normal 135-145 [facility] Comment on above: Performed By: #### 1 2149092, 93603960, 07951835, 6188456 #### [facility] [address] [place] [address] Urea nitrogen [Mass/Vol] 11 mg/dL Normal 5-21 [facility] Comment on above: Performed By: #### 1 3964325, 53022269, 10066699, 0776820 #### [facility] [address] [place] [address] Urea nitrogen/Creatinine [Mass ratio] 10 No Units Normal 10-20 [facility] Comment on above: Performed By: #### 1 6951334, 87639757, 57648065, 8371803 #### [facility] [address] [place] [address] eGFRon 11-24-2023 eGFR 60 mL/min/1.73 m2 Normal >=59 [facility] Comment on above: Order Comment: Order added by Discern Expert. Performed By: #### 1 4365586, 54392721, 67664063, 9643524 #### [facility] [address] [place] [address] CMPon 11-10-2023 Albumin [Mass/Vol] 3.7 g/dL Normal 3.3-5.0 [facility] Comment on above: Performed By: #### 1 5635772, 3221106 #### [facility] [address] [place] [address] Albumin/Globulin (S) [Mass conc ratio] 1.9 Normal 1.1-2.2 [facility] Comment on above: Performed By: #### 1 2926463, 5602343 #### [facility] [address] [place] [address] ALP [Catalytic activity/Vol] 76 Int._Unit/L Normal 21-98 [facility] Comment on above: Performed By: #### 1 3422402, 7868171 #### [facility] [address] [place] [address] ALT No additional P-5'-P [Catalytic activity/Vol] 14 Int._Unit/L Normal 6-46 [facility] Comment on above: Performed By: #### 1 0698892, 2760553 #### [facility] [address] [place] [address] Anion gap [Moles/Vol] 10 mmol/L Normal 6-16 [facility] [facility] Comment on above: Performed By: #### 1 [id number], 5354528 #### [facility] [address] [place] [address] AST [Catalytic activity/Vol] 10 Int._Unit/L Normal 5-43 [facility] Comment on above: Performed By: #### 1 5268525, 3448815 #### [facility] [address] [place] [address] Bilirubin [Mass/Vol] 0.4 mg/dL Normal 0.0-1.1 [facility] Comment on above: Performed By: #### 1 3690073, 4817533 #### [facility] [address] [place] [address] Calcium [Mass/Vol] 8.6 mg/dL Low 8.9-11.1 [facility] Comment on above: Performed By: #### 1 4413372, 8459875 #### [facility] [address] [place] [address] Chloride [Moles/Vol] 109 mmol/L Normal 101-111 [facility] Comment on above: Performed By: #### 1 4041628, 9123253 #### [facility] [address] [place] [address] CO2 [Moles/Vol] 27 mmol/L Normal 21-31 [facility] Comment on above: Performed By: #### 1 5674607, 5836967 #### [facility] [address] [place] [address] Creatinine [Mass/Vol] 1.0 mg/dL Normal 0.5-1.3 [facility] Comment on above: Performed By: #### 1 6605939, 2433377 #### [facility] [address] [place] [address] Globulin (S) [Mass/Vol] 2.0 g/dL Normal 1.4-4.0 [facility] Comment on above: Performed By: #### 1 6842544, 7562987 #### [facility] [address] [place] [address] Glucose [Mass/Vol] 78 mg/dL Normal 55-199 [facility] Comment on above: Performed By: #### 1 9706766, 4496536 #### [facility] [address] [place] [address] Potassium [Moles/Vol] 3.9 mmol/L Normal 3.5-5.3 [facility] Comment on above: Performed By: #### 1 0657359, 6219329 #### [facility] [address] [place] [address] Protein [Mass/Vol] 5.7 g/dL Low 6.0-7.8 [facility] Comment on above: Performed By: #### 1 8452566, 6945452 #### [facility] [address] [place] [address] Sodium [Moles/Vol] 142 mmol/L Normal 135-145 [facility] Comment on above: Performed By: #### 1 8761612, 8817653 #### [facility] [address] [place] [address] Urea nitrogen [Mass/Vol] 9 mg/dL Normal 5-21 [facility] Comment on above: Performed By: #### 1 5742945, 0334044 #### [facility] [address] [place] [address] Urea nitrogen/Creatinine [Mass ratio] 9 No Units Low 10-20 [facility] Comment on above: Performed By: #### 1 7804794, 5261934 #### [facility] [address] [place] [address] Physician Orderon 11-10-2023 Physician Order [id number]#[id number] Normal [facility] eGFRon 11-10-2023 eGFR 68 mL/min/1.73 m2 Normal >=59 [facility] Comment on above: Order Comment: Order added by Discern Expert. Performed By: #### 1 6854725, 2435771 #### [facility] [address] [place] [address] CBC w/ Auto Diffon 4 Basophil Absolute 0.1 E9/L Normal 0.0-0.2 [facility] Comment on above: Performed By: #### 7 69024732, 3652669, 03790056, 7920168 #### [facility] [address] [place] [address] Basophils/100 WBC (Bld) 1.1 % Normal 0.0-2.0 [facility] Comment on above: Performed By: #### 7 75714101, 3156750, 82956237, 9220874 #### [facility] [address] [place] [address] Eos Absolute 0.2 E9/L Normal 0.0-0.5 [facility] Comment on above: Performed By: #### 7 71600209, 0967443, 07613120, 8830909 #### [facility] [address] [place] [address] Eosinophils/100 WBC (Bld) 1.9 % Normal 0.0-8.0 [facility] Comment on above: Performed By: #### 7 00625447, 3690710, 92631128, 9892036 #### [facility] [address] [place] [address] Erythrocyte distribution width (RBC) [Ratio] 16.6 % High 10.9-14.2 [facility] Comment on above: Performed By: #### 7 60666389, 0310142, 87945298, 1331034 #### [facility] [address] [place] [address] Hematocrit (Bld) [Volume fraction] 39.0 % Normal 34.0-46.0 [facility] Comment on above: Performed By: #### 7 80919939, 0823517, 30696148, 3459980 #### [facility] [address] [place] [address] Hemoglobin (Bld) [Mass/Vol] 12.2 g/dL Normal 12.0-16.0 [facility] Comment on above: Performed By: #### 7 94905165, 7632120, 84354906, 9801825 #### [facility] [address] [place] [address] Lymph Absolute 1.9 E9/L Normal 1.0-4.0 [facility] Comment on above: Performed By: #### 7 58919226, 4933388, 63522307, 8650710 #### [facility] [address] [place] [address] Lymphocytes/100 WBC (Bld) 17.8 % Normal 14.0-50.0 [facility] Comment on above: Performed By: #### 7 04251198, 1164010, 34867847, 9232523 #### [facility] [address] [place] [address] MCH (RBC) [Entitic mass] 30.4 pg Normal 27.0-34.0 [facility] Comment on above: Performed By: #### 7 78951059, 4131865, 21702249, 9894023 #### [facility] [address] [place] [address] MCHC (RBC) [Mass/Vol] 31.4 g/dL Normal 31.4-36.0 [facility] Comment on above: Performed By: #### 7 09692527, 9087057, 02896689, 6495093 #### [facility] [address] [place] [address] MCV (RBC) [Entitic vol] 96.7 fL Normal 80.0-100.0 [facility] Comment on above: Performed By: #### 7 33141407, 3157088, 83362318, 0913735 #### [facility] [address] [place] [address] Karnes Absolute 0.9 E9/L Normal 0.2-1.0 [facility] Comment on above: Performed By: #### 7 47826776, 7129527, 04135402, 7837406 #### [facility] [address] [place] [address] Monocytes/100 WBC (Bld) 8.4 % Normal 4.0-14.0 [facility] Comment on above: Performed By: #### 7 15783130, 0114051, 20210369, 4984824 #### [facility] [address] [place] [address] Neutro Absolute 7.5 E9/L Normal 2.0-7.5 [facility] Comment on above: Performed By: #### 7 53977468, 6700374, 84642963, 3617605 #### [facility] [address] [place] [address] Neutro Auto 70.8 % Normal 36.0-75.0 [facility] Comment on above: Performed By: #### 7 78658321, 0708682, 55422019, 1652028 #### [facility] [address] [place] [address] Platelet 391.0 E9/L Normal 150.0-500. 0 [facility] Comment on above: Performed By: #### 7 61548536, 3588327, 40168831, 8147467 #### [facility] [address] [place] [address] Platelet mean volume (Bld) [Entitic vol] 7.4 fL Normal 6.4-10.8 [facility] Comment on above: Performed By: #### 7 29513626, 6595640, 12274708, 6592731 #### [facility] [address] [place] [address] RBC 4.0 E12/L Low 4.3-5.9 [facility] Comment on above: Performed By: #### 7 27596077, 8875280, 88526662, 2113418 #### [facility] [address] [place] [address] WBC 10.6 E9/L Normal 4.0-11.0 [facility] Comment on above: Performed By: #### 7 72704605, 9833990, 89403278, 6619655 #### [facility] [address] [place] [address] CMPon 10-26-2023 Albumin [Mass/Vol] 3.7 g/dL Normal 3.3-5.0 [facility] Comment on above: Performed By: #### 7 81081957, 3378145, 47236471, 9323311 #### [facility] [address] [place] [address] Albumin/Globulin [Mass ratio] 1.5 {ratio} Normal 1.1-2.2 [facility] Comment on above: Performed By: #### 7 61707236, 3934869, 24579306, 1974193 #### [facility] [address] [place] [address] Alk Phos 66 Int._Unit/L Normal 21-98 [facility] Comment on above: Performed By: #### 7 94994350, 4329650, 50017141, 1292025 #### [facility] [address] [place] [address] ALT 19 Int._Unit/L Normal 6-46 [facility] Comment on above: Performed By: #### 7 77850188, 6835776, 81054724, 2269588 #### [facility] [address] [place] [address] Anion gap [Moles/Vol] 12 mmol/L Normal 6-16 [facility] Comment on above: Performed By: #### 7 64725394, 5159412, 97218297, 9494934 #### [facility] [address] [place] [address] AST 11 Int._Unit/L Normal 5-43 [facility] Comment on above: Performed By: #### 7 71599837, 1355806, 33856565, 4628930 #### [facility] [address] [place] [address] Bili Total 0.4 mg/dL Normal 0.0-1.1 [facility] Comment on above: Performed By: #### 7 03652383, 3516666, 99748372, 8255275 #### [facility] [address] [place] [address] BUN/Creat Ratio 9 No Units Low 10-20 [facility] Comment on above: Performed By: #### 7 77165737, 5476123, 58226677, 5225022 #### [facility] [address] [place] [address] Calcium [Mass/Vol] 8.9 mg/dL Normal 8.9-11.1 [facility] Comment on above: Performed By: #### 7 20809075, 4811511, 29700441, 5083587 #### [facility] [address] [place] [address] Chloride [Moles/Vol] 108 mmol/L Normal 101-111 [facility] Comment on above: Performed By: #### 7 87181997, 3985149, 72552286, 2103350 #### [facility] [address] [place] [address] CO2 [Moles/Vol] 26 mmol/L Normal 21-31 [facility] Comment on above: Performed By: #### 7 07364650, 8359558, 81707936, 6179703 #### [facility] [address] [place] [address] Creatinine [Mass/Vol] 1.2 mg/dL Normal 0.5-1.3 [facility] Comment on above: Performed By: #### 7 01112724, 8489022, 51139253, 4083937 #### [facility] [address] [place] [address] Globulin (S) [Mass/Vol] 2.4 g/dL Normal 1.4-4.0 [facility] Comment on above: Performed By: #### 7 36638532, 9564842, 55123646, 6080590 #### [facility] [address] [place] [address] Glucose [Mass/Vol] 87 mg/dL Normal 55-199 [facility] Comment on above: Performed By: #### 7 14969170, 1302101, 59509494, 0310082 #### [facility] [address] [place] [address] Potassium [Moles/Vol] 3.8 mmol/L Normal 3.5-5.3 [facility] Comment on above: Performed By: #### 7 12011227, 8946603, 54163515, 5417724 #### [facility] [address] [place] [address] Protein [Mass/Vol] 6.1 g/dL Normal 6.0-7.8 [facility] Comment on above: Performed By: #### 7 90111248, 9320087, 95063881, 2683143 #### [facility] [address] [place] [address] Sodium [Moles/Vol] 142 mmol/L Normal 135-145 [facility] Comment on above: Performed By: #### 7 74516646, 4098111, 37864769, 3725465 #### [facility] [address] [place] [address] Urea nitrogen [Mass/Vol] 11 mg/dL Normal 5-21 [facility] Comment on above: Performed By: #### 7 43560189, 7557784, 16269971, 9021983 #### [facility] [address] [place] [address] Physician Orderon 10-26-2023 Physician Order [id number]#[id number] Normal [facility] eGFRon 10-26-2023 eGFR 54 mL/min/1.73 m2 Low >=59 [facility] Comment on above: Order Comment: Order added by Discern Expert. Performed By: #### 7 05297409, 8765671, 44401386, 9242881 #### [facility] [address] [place] [address] CBC w/ Auto Diffon 4 Basophil Absolute 0.1 E9/L Normal 0.0-0.2 [facility] Comment on above: Performed By: #### 7 09725383, 2327124, 68542884, 8179154 #### [facility] [address] [place] [address] Basophils/100 WBC (Bld) 0.3 % Normal 0.0-2.0 [facility] Comment on above: Performed By: #### 7 95651204, 6677452, 28485831, 3975886 #### [facility] [address] [place] [address] Eos Absolute 0.1 E9/L Normal 0.0-0.5 [facility] Comment on above: Performed By: #### 7 41241723, 6780021, 02004648, 7113689 #### [facility] [address] [place] [address] Eosinophils/100 WBC (Bld) 0.3 % Normal 0.0-8.0 [facility] Comment on above: Performed By: #### 7 89447065, 8478125, 73531489, 5550666 #### [facility] [address] [place] [address] Erythrocyte distribution width (RBC) [Ratio] 15.1 % High 10.9-14.2 [facility] Comment on above: Performed By: #### 7 89748968, 3567294, 69835298, 0570538 #### [facility] [address] [place] [address] Hematocrit (Bld) [Volume fraction] 37.0 % Normal 34.0-46.0 [facility] Comment on above: Performed By: #### 7 30706262, 3132008, 61885134, 3541079 #### [facility] [address] [place] [address] Hemoglobin (Bld) [Mass/Vol] 11.8 g/dL Low 12.0-16.0 [facility] Comment on above: Performed By: #### 7 49511220, 8813281, 20618614, 1674512 #### [facility] [address] [place] [address] Lymph Absolute 4.6 E9/L High 1.0-4.0 [facility] Comment on above: Performed By: #### 7 43688569, 3134680, 29291821, 0868883 #### [facility] [address] [place] [address] Lymphocytes/100 WBC (Bld) 26.1 % Normal 14.0-50.0 [facility] Comment on above: Performed By: #### 7 57719476, 5321674, 74773082, 4490576 #### [facility] [address] [place] [address] MCH (RBC) [Entitic mass] 30.5 pg Normal 27.0-34.0 [facility] Comment on above: Performed By: #### 7 24276568, 5536465, 49660348, 1648404 #### [facility] [address] [place] [address] MCHC (RBC) [Mass/Vol] 31.9 g/dL Normal 31.4-36.0 [facility] Comment on above: Performed By: #### 7 74895420, 0232846, 35753607, 5363132 #### [facility] [address] [place] [address] MCV (RBC) [Entitic vol] 95.7 fL Normal 80.0-100.0 [facility] Comment on above: Performed By: #### 7 47329961, 8844525, 25258624, 1497651 #### [facility] [address] [place] [address] Karnes Absolute 1.6 E9/L High 0.2-1.0 [facility] Comment on above: Performed By: #### 7 07662052, 3727725, 23577282, 1713834 #### [facility] [address] [place] [address] Monocytes/100 WBC (Bld) 9.2 % Normal 4.0-14.0 [facility] Comment on above: Performed By: #### 7 51687361, 9122150, 63312235, 5113144 #### [facility] [address] [place] [address] Neutro Absolute 11.4 E9/L High 2.0-7.5 [facility] Comment on above: Performed By: #### 7 29788114, 9960127, 57149539, 8565821 #### [facility] [address] [place] [address] Neutro Auto 64.1 % Normal 36.0-75.0 [facility] Comment on above: Performed By: #### 7 68974835, 9650983, 50794322, 9945197 #### [facility] [address] [place] [address] Platelet 453.0 E9/L Normal 150.0-500. 0 [facility] Comment on above: Performed By: #### 7 27309465, 7279088, 62432818, 7575634 #### [facility] [address] [place] [address] Platelet mean volume (Bld) [Entitic vol] 7.4 fL Normal 6.4-10.8 [facility] Comment on above: Performed By: #### 7 45082545, 9719067, 63651161, 6912305 #### [facility] [address] [place] [address] RBC 3.9 E12/L Low 4.3-5.9 [facility] Comment on above: Performed By: #### 7 01402351, 2293777, 01630507, 5357334 #### [facility] [address] [place] [address] WBC 17.8 E9/L High 4.0-11.0 [facility] Comment on above: Result Comment: Slid e reviewed by KD Performed By: #### 7 50675242, 1863540, 77486698, 8448456 #### [facility] [address] [place] [address] CMPon 10-22-2023 Albumin [Mass/Vol] 3.5 g/dL Normal 3.3-5.0 [facility] Comment on above: Performed By: #### 7 14829095, 1470045, 34992568, 0339759 #### [facility] [address] [place] [address] Albumin/Globulin [Mass ratio] 1.6 {ratio} Normal 1.1-2.2 [facility] Comment on above: Performed By: #### 7 36089553, 8507572, 16734916, 4626020 #### [facility] [address] [place] [address] Alk Phos 54 Int._Unit/L Normal 21-98 [facility] Comment on above: Performed By: #### 7 42814644, 2821271, 39150713, 8402105 #### [facility] [address] [place] [address] ALT 21 Int._Unit/L Normal 6-46 [facility] Comment on above: Performed By: #### 7 46054880, 0135262, 70847047, 6491114 #### [facility] [address] [place] [address] Anion gap [Moles/Vol] 10 mmol/L Normal 6-16 [facility] Comment on above: Performed By: #### 7 20818915, 8887177, 98424482, 0676365 #### [facility] [address] [place] [address] AST 10 Int._Unit/L Normal 5-43 [facility] Comment on above: Performed By: #### 7 00235138, 8056255, 03679733, 7980771 #### [facility] [address] [place] [address] Bili Total 0.3 mg/dL Normal 0.0-1.1 [facility] Comment on above: Performed By: #### 7 22042442, 5595489, 72854104, 0360554 #### [facility] [address] [place] [address] BUN/Creat Ratio 19 No Units Normal 10-20 [facility] Comment on above: Performed By: #### 7 97689427, 9923168, 69950113, 9967101 #### [facility] [address] [place] [address] Calcium [Mass/Vol] 8.7 mg/dL Low 8.9-11.1 [facility] Comment on above: Performed By: #### 7 54914399, 3839315, 51010058, 7057778 #### [facility] [address] [place] [address] Chloride [Moles/Vol] 108 mmol/L Normal 101-111 [facility] Comment on above: Performed By: #### 7 50867816, 0102978, 34873103, 7368704 #### [facility] [address] [place] [address] CO2 [Moles/Vol] 28 mmol/L Normal 21-31 [facility] Comment on above: Performed By: #### 7 93721644, 7646378, 23251745, 8681771 #### [facility] [address] [place] [address] Creatinine [Mass/Vol] 1.3 mg/dL Normal 0.5-1.3 [facility] Comment on above: Performed By: #### 7 33995701, 1292896, 10138364, 1824234 #### [facility] [address] [place] [address] Globulin (S) [Mass/Vol] 2.2 g/dL Normal 1.4-4.0 [facility] Comment on above: Performed By: #### 7 75779143, 0708546, 05080056, 2167057 #### [facility] [address] [place] [address] Glucose [Mass/Vol] 77 mg/dL Normal 55-199 [facility] Comment on above: Performed By: #### 7 24656695, 8224823, 08227133, 9491973 #### [facility] [address] [place] [address] Potassium [Moles/Vol] 4.2 mmol/L Normal 3.5-5.3 [facility] Comment on above: Performed By: #### 7 48209688, 6197300, 34839763, 3597515 #### [facility] [address] [place] [address] Protein [Mass/Vol] 5.7 g/dL Low 6.0-7.8 [facility] Comment on above: Performed By: #### 7 94614868, 9505085, 76661591, 7578657 #### [facility] [address] [place] [address] Sodium [Moles/Vol] 142 mmol/L Normal 135-145 [facility] Comment on above: Performed By: #### 7 80447757, 0446985, 68905133, 1177347 #### [facility] [address] [place] [address] Urea nitrogen [Mass/Vol] 25 mg/dL High 5-21 [facility] Comment on above: Performed By: #### 7 98691267, 1829028, 59365183, 9332811 #### [facility] [address] [place] [address] [id number] 10-22-2023 HbA1c (Bld) [Mass fraction] 6.2 % High <=5.9 [facility] Comment on above: Performed By: #### 7 35932273, 0379108, 09969115, 8673701 #### [facility] [address] [place] [address] Physician Orderon 10-22-2023 Physician Order [id number] Normal [facility] eGFRon 10-22-2023 eGFR 49 mL/min/1.73 m2 Low >=59 [facility] Comment on above: Order Comment: Order added by Discern Expert. Performed By: #### 7 52310442, 3039174, 06041444, 2454156 #### [facility] [address] [place] [address] CBC w/ Auto Diffon 4 Basophil Absolute 0.1 E9/L Normal 0.0-0.2 [facility] Comment on above: Performed By: #### 7 51621308, 4536050, 41583488, 9153851 #### [facility] [address] [place] [address] Basophils/100 WBC (Bld) 0.3 % Normal 0.0-2.0 [facility] Comment on above: Performed By: #### 7 99428648, 0618041, 42525915, 4248678 #### [facility] [address] [place] [address] Eos Absolute 0.2 E9/L Normal 0.0-0.5 [facility] Comment on above: Performed By: #### 7 20837978, 2491837, 62713056, 8663555 #### [facility] [address] [place] [address] Eosinophils/100 WBC (Bld) 1.1 % Normal 0.0-8.0 [facility] Comment on above: Performed By: #### 7 37431343, 8757766, 66219155, 6003085 #### [facility] [address] [place] [address] Erythrocyte distribution width (RBC) [Ratio] 14.6 % High 10.9-14.2 [facility] Comment on above: Performed By: #### 7 29571716, 6831956, 69793164, 3894854 #### [facility] [address] [place] [address] Hematocrit (Bld) [Volume fraction] 40.0 % Normal 34.0-46.0 [facility] Comment on above: Performed By: #### 7 11232414, 0967697, 26508383, 0109846 #### [facility] [address] [place] [address] Hemoglobin (Bld) [Mass/Vol] 12.8 g/dL Normal 12.0-16.0 [facility] Comment on above: Performed By: #### 7 47409100, 1875707, 30997414, 2677662 #### [facility] [address] [place] [address] Lymph Absolute 2.9 E9/L Normal 1.0-4.0 [facility] Comment on above: Performed By: #### 7 38029482, 1674042, 59189999, 8648203 #### [facility] [address] [place] [address] Lymphocytes/100 WBC (Bld) 18.7 % Normal 14.0-50.0 [facility] Comment on above: Performed By: #### 7 51644607, 4616755, 54499734, 9636309 #### [facility] [address] [place] [address] MCH (RBC) [Entitic mass] 30.8 pg Normal 27.0-34.0 [facility] Comment on above: Performed By: #### 7 86274601, 3302605, 23650216, 2449449 #### [facility] [address] [place] [address] MCHC (RBC) [Mass/Vol] 32.4 g/dL Normal 31.4-36.0 [facility] Comment on above: Performed By: #### 7 00489057, 1064567, 99233248, 0022456 #### [facility] [address] [place] [address] MCV (RBC) [Entitic vol] 95.0 fL Normal 80.0-100.0 [facility] Comment on above: Performed By: #### 7 39333865, 6819502, 03379942, 9678935 #### [facility] [address] [place] [address] Karnes Absolute 1.1 E9/L High 0.2-1.0 [facility] Comment on above: Performed By: #### 7 18056557, 1256970, 67612634, 8355477 #### [facility] [address] [place] [address] Monocytes/100 WBC (Bld) 6.7 % Normal 4.0-14.0 [facility] Comment on above: Performed By: #### 7 85196543, 3586599, 44799551, 3455111 #### [facility] [address] [place] [address] Neutro Absolute 11.5 E9/L High 2.0-7.5 [facility] Comment on above: Performed By: #### 7 84139434, 1308811, 06943194, 8562644 #### [facility] [address] [place] [address] Neutro Auto 73.2 % Normal 36.0-75.0 [facility] Comment on above: Performed By: #### 7 77655162, 9273829, 71074495, 2088670 #### [facility] [address] [place] [address] Platelet 549.0 E9/L High 150.0-500. 0 [facility] Comment on above: Performed By: #### 7 38802697, 6947728, 91810998, 9072048 #### [facility] [address] [place] [address] Platelet mean volume (Bld) [Entitic vol] 7.7 fL Normal 6.4-10.8 [facility] Comment on above: Performed By: #### 7 87501559, 7173301, 64964503, 3363813 #### [facility] [address] [place] [address] RBC 4.2 E12/L Low 4.3-5.9 [facility] Comment on above: Performed By: #### 7 89643145, 2674595, 77850404, 6940658 #### [facility] [address] [place] [address] WBC 15.7 E9/L High 4.0-11.0 [facility] Comment on above: Performed By: #### 7 08515138, 6414357, 54133949, 5034277 #### [facility] [address] [place] [address] CMPon 10-13-2023 Albumin [Mass/Vol] 3.9 g/dL Normal 3.3-5.0 [facility] Comment on above: Performed By: #### 7 91481677, 3403763, 32119078, 0534209 #### [facility] [address] [place] [address] Albumin/Globulin [Mass ratio] 1.5 {ratio} Normal 1.1-2.2 [facility] Comment on above: Performed By: #### 7 [id number], [id number], [id number], [id number] #### [facility] [address] [place] [address] Alk Phos 82 Int._Unit/L Normal 21-98 [facility] Comment on above: Performed By: #### 7 [id number], [id number], [id number], [id number] #### [facility] [address] [place] [address] ALT 15 Int._Unit/L Normal 6-46 [facility] Comment on above: Performed By: #### 7 [id number], [id number], [id number], [id number] #### [facility] [address] [place] [address] Anion gap [Moles/Vol] 17 mmol/L High 6-16 [facility] Comment on above: Performed By: #### 7 [id number], [id number], [id number], [id number] #### [facility] [address] [place] [address] AST 9 Int._Unit/L Normal 5-43 [facility] Comment on above: Performed By: #### 7 [id number], [id number], [id number], [id number] #### [facility] [address] [place] [address] Bili Total 0.3 mg/dL Normal 0.0-1.1 [facility] Comment on above: Performed By: #### 7 [id number], [id number], 65041949, 9318101 #### [facility] [address] [place] [address] BUN/Creat Ratio 15 No Units Normal 10-20 [facility] Comment on above: Performed By: #### 7 [id number], [id number], [id number], [id number] #### [facility] [address] [place] [address] Calcium [Mass/Vol] 9.1 mg/dL Normal 8.9-11.1 [facility] Comment on above: Performed By: #### 7 [id number], 0465835, 82960882, 9844058 #### [facility] [address] [place] [address] Chloride [Moles/Vol] 102 mmol/L Normal 101-111 [facility] Comment on above: Performed By: #### 7 [id number], 0544522, 96438150, 3073568 #### [facility] [address] [place] [address] CO2 [Moles/Vol] 21 mmol/L Normal 21-31 [facility] Comment on above: Performed By: #### 7 [id number], 0103953, 24609670, 9389996 #### [facility] [address] [place] [address] Creatinine [Mass/Vol] 2.1 mg/dL High 0.5-1.3 [facility] Comment on above: Performed By: #### 7 [id number], 8622203, [id number], 1149589 #### [facility] [address] [place] [address] Globulin (S) [Mass/Vol] 2.6 g/dL Normal 1.4-4.0 [facility] Comment on above: Performed By: #### 7 [id number], 3906237, 94328648, 2873714 #### [facility] [address] [place] [address] Glucose [Mass/Vol] 92 mg/dL Normal 55-199 [facility] Comment on above: Performed By: #### 7 [id number], 9638571, 63375530, 2079099 #### [facility] [address] [place] [address] Potassium [Moles/Vol] 4.6 mmol/L Normal 3.5-5.3 [facility] Comment on above: Performed By: #### 7 [id number], 7311376, 78308399, 1814976 #### [facility] [address] [place] [address] Protein [Mass/Vol] 6.5 g/dL Normal 6.0-7.8 [facility] Comment on above: Performed By: #### 7 [id number], 4214388, 21674968, 6360321 #### [facility] [address] [place] [address] Sodium [Moles/Vol] 135 mmol/L Normal 135-145 [facility] Comment on above: Performed By: #### 7 [id number], 0583658, 77603701, 3124373 #### [facility] [address] [place] [address] Urea nitrogen [Mass/Vol] 31 mg/dL High 5-21 [facility] Comment on above: Performed By: #### 7 [id number], 8006411, 12155908, 1305686 #### [facility] [address] [place] [address] Physician Orderon 10-13-2023 Physician Order [id number] Normal [facility] eGFRon 10-13-2023 eGFR 28 mL/min/1.73 m2 Low >=59 [facility] Comment on above: Order Comment: Order added by Discern Expert. Performed By: #### 7 [id number], 7592416, [id number], [id number] #### [facility] [address] [place] [address] MR lumbar spine wo conon MR lumbar spine wo con [facility] [place] [address] MRI Report Signed Patient: Joselito Vidal MR#: [id number] : 1970 Acct:[id number] Age/Sex: 52 / F ADM Date: 06/18/23 Loc: Room: Type: [facility] Attending Dr: Dario Palacios DO Copies to: [...] Arianna Urena M.D.06/18/2023 8:28 PM Dictation Location: [place] [address] Transcribed By: [facility] 06/18/232027 Dictated By: Arianna Urena MD 06/18/232010 Signed By: 06/18/232027 Normal [facility] XR hip RT min 2V(w/wo pelvis )*on 11-07-2022 XR hip RT min 2V(w/wo pelvis)* [facility] [email or web address] Other XR hip RT min 2V(w/wo pelvis)* [facility] [place] [employer] Other XR hip RT min 2V(w/wo pelvis)* [address] [place] [address] [employer] Other XR hip RT min 2V(w/wo pelvis)* [place] [address] [employer] Other XR hip RT min 2V(w/wo pelvis)* XRay Report [employer] Other XR hip RT min 2V(w/wo pelvis)* Signed [employer] Other XR hip RT min 2V(w/wo pelvis)* Patient: Joselito Vidal MR#: [id number] [employer] Other XR hip RT min 2V(w/wo pelvis)* 3649 [employer] Other XR hip RT min 2V(w/wo pelvis)* : 1970 Acct:[id number] [employer] Other XR hip RT min 2V(w/wo pelvis)* Age/Sex: 51 / F ADM Date: 11/07/22 [employer] Other XR hip RT min 2V(w/wo pelvis)* Loc: XDUCLY Room: Type: [facility] [employer] Other XR hip RT min 2V(w/wo pelvis)* [facility]: [facility] [employer] Other XR hip RT min 2V(w/wo pelvis)* Copies to: ELLIE INGRAM [facility] [employer] Other XR hip RT min 2V(w/wo pelvis)* Ordering Provider: ELLIE INGRAM [facility] [employer] Other XR hip RT min 2V(w/wo pelvis)* Date of Service: 11/07/22 [employer] Other XR hip RT min 2V(w/wo pelvis)* XR/XR hip RT min 2V(w/wo pelvis)*: Right hip pain [employer] Other XR hip RT min 2V(w/wo pelvis)* Single view pelvis and 2 views of the right hip plain film [employer] Other XR hip RT min 2V(w/wo pelvis)* COMPARISON:None [employer] Other XR hip RT min 2V(w/wo pelvis)* HISTORY:Right hip pain for one year. [employer] Other XR hip RT min 2V(w/wo pelvis)* ACUTE FINDINGS:None [employer] Other XR hip RT min 2V(w/wo pelvis)* DEGENERATIVE CHANGE:Unremarkable [employer] Other XR hip RT min 2V(w/wo pelvis)* SOFT TISSUE FINDINGS:Unremarkable [employer] Other XR hip RT min 2V(w/wo pelvis)* JOINT EFFUSION:None [employer] Other XR hip RT min 2V(w/wo pelvis)* POSTOP CHANGES:None [employer] Other XR hip RT min 2V(w/wo pelvis)* BONY MINERALIZATION:Adequate [employer] Other XR hip RT min 2V(w/wo pelvis)* XR/XR hip RT min 2V(w/wo pelvis)* [employer] Other XR hip RT min 2V(w/wo pelvis)* IMPRESSION:Unremarkable exam [employer] Other XR hip RT min 2V(w/wo pelvis)* Impression dictated by: Juan Adair M.D.11/07/2022 11:54 AM [employer] Other XR hip RT min 2V(w/wo pelvis)* Dictation Location: [facility] [employer] Other XR hip RT min 2V(w/wo pelvis)* Transcribed By: SUKHDEV 11/07/22 1154 [employer] Other XR hip RT min 2V(w/wo pelvis)* Dictated By: Juan Adair DO 11/07/22 1153 [employer] Other XR hip RT min 2V(w/wo pelvis)* Signed By: [employer] Other XR hip RT min 2V(w/wo pelvis)* 11/07/22 1154 [employer] Other XR knee RT 4V*on 11-03-2022 XR knee RT 4V* [facility] [employer] Other XR knee RT 4V* [facility] [email or web address] Other XR knee RT 4V* 1111 [facility] [email or web address] Other XR knee RT 4V* [place] [address] No rt [email or web address] Other XR knee RT 4V* XRay Report [employer] Other XR knee RT 4V* Signed [employer] Other XR knee RT 4V* Patient: Genevieve Vidal MR#: [id number] [employer] Other XR knee RT 4V* 3649 [employer] Other XR knee RT 4V* : 1970 Acct:[id number] [employer] Other XR knee RT 4V* Age/Sex: 51 / F ADM Date: 11/03/22 [employer] Other XR knee RT 4V* Loc: XDUCLY Room: Ty pe: REG CLI [employer] Other XR knee RT 4V* Attending Dr: Susana LIZ [employer] Other XR knee RT 4V* Copies to: AGUSTO Aviles [employer] Other XR knee RT 4V* Ordering Provider: AGUSTO Hernández [employer] Other XR knee RT 4V* Date of Service: 11/03/22 [employer] Other XR knee RT 4V* XR/XR knee RT 4V*: Acute pain of right knee [employer] Other XR knee RT 4V* RIGHT KNEE - 4 views [employer] Other XR knee RT 4V* CLINICAL HISTORY: Ri ght knee pain for the past 2 weeks. No recent injury. [employer] Other XR knee RT 4V* COMPARISON: None [place] [email or web address] Other XR knee RT 4V* AP, lateral and both oblique views were obtained. There is no evidence of fracture or dislocation. [employer] Other XR knee RT 4V* No disproportionate joint space narrowing is present. There is minimal marginal spurring. Fluid [employer] Other XR knee RT 4V* is present at the suprapatellar bursa. [employer] Other XR knee RT 4V* X R/XR knee RT 4V* [employer] Other XR knee RT 4V* IMPRESSION: [facility] [employer] Other XR knee RT 4V* MINOR DEGENERATIVE CHANGE. [employer] Other XR knee RT 4V* JOINT EFFUSION. [employer] Other XR knee RT 4V* NO ACUTE BONY FINDINGS. [employer] Other XR knee RT 4V* Impression dictated by: Arianna Urena M.D.11/03/2022 2:56 PM [employer] Other XR knee RT 4V* Dictation Location: [place] [address] [employer] Other XR knee RT 4V* Transcribed By: SUKHDEV 11/03/22 1456 [employer] Other XR knee RT 4V* Dictated By: Arianna Urena MD 11/03/22 145 [employer] Other XR knee RT 4V* Signed By: [employer] Other XR knee RT 4V* 11/03/22 1456 [email or web address] Other Albumin [Mass/volume] in Ser um or PlasmaOrdered By: PROVIDER TEMP on 10-08-2022 Albumin [Mass/Vol] 3.5 g/dL 3.2-5.5 [facility] Basophils Auto (Bld) [#/Vol] Ordered By: PROVIDER TEMP on 10-08-2022 Basophils (Bld) [#/Vol] 0.1 10*3/uL 0.0-0.2 [facility] Basophils/100 WBC Auto (Bld) Ordered By: PROVIDER TEMP on 10-08-2022 Basophils/100 WBC (Bld) 0.6 % . [facility] Creatine kinase [Enzymatic a ctivity/volume] in Serum or PlasmaOrdered By: PROVIDER TEMP on 10-08-2022 CK [Catalytic activity/Vol] 65 U/L 22-269 [facility] Creatinine and Glomerular fi ltration rate.predicted panel (S/P/Bld)Ordered By: PROVIDER TEMP on 10-08-2022 Creatinine [Mass/Vol] 0.89 mg/dL 0.44-1.03 [facility] Eosinophils Auto (Bld) [#/Vo l]Ordered By: PROVIDER TEMP on 10-08-2022 Eosinophils (Bld) [#/Vol] 0.2 10*3/uL 0.0-0.45 [facility] Eosinophils/100 WBC Auto (Bl d)Ordered By: PROVIDER TEMP on 10-08-2022 Eosinophils/100 WBC (Bld) 1.0 % . [facility] Erythrocyte distribution wid th Auto (RBC) [Ratio]Ordered By: PROVIDER TEMP on 10-08-2022 Erythrocyte distribution width (RBC) [Ratio] 13.9 % 11.9-15.3 [facility] Estimated glomerular filtrat ion rate (GFR) non- AmericanOrdered By: PROVIDER TEMP on 10-08-2022 GFR/1.73 sq M.predicted among non-blacks MDRD (S/P/Bld) [Vol rate/Area] > 60 mL/Min [facility] Globulin Calc (S) [Mass/Vol] Ordered By: PROVIDER TEMP on 10-08-2022 Globulin (S) [Mass/Vol] 3.1 g/dL [facility] Hematocrit Auto (Bld) [Volum e fraction]Ordered By: PROVIDER TEMP on 10-08-2022 Hematocrit (Bld) [Volume fraction] 45.1 % 34.0-46.4 [facility] Hemoglobin [Mass/volume] in BloodOrdered By: PROVIDER TEMP on 10-08-2022 Hemoglobin (Bld) [Mass/Vol] 14.9 g/dL 11.8-15.4 [facility] - Chemistry and C hemistry - challengeOrdered By: Edie Bolton on 10-08-2022 Natriuretic peptide B (Bld) [Mass/Vol] 15.0 pg/mL 5-100 [facility] Leukocytes [#/volume] correc aleksey for nucleated erythrocytes in Blood by Automated counOrdered By: PROVIDER TEM on 10-08-2022 WBC corrected for nucl RBC Auto (Bld) [#/Vol] 15.5 10*3/uL 3.8-11.6 [facility] Lymphocytes Auto (Bld) [#/Vo l]Ordered By: PROVIDER TEMP on 10-08-2022 Lymphocytes (Bld) [#/Vol] 4.6 10*3/uL 1.00-4.8 [facility] Lymphocytes/100 WBC Auto (Bl d)Ordered By: PROVIDER TEMP on 10-08-2022 Lymphocytes/100 WBC (Bld) 29.9 % . [facility] MCH Auto (RBC) [Entitic mass ]Ordered By: PROVIDER TEMP on 10-08-2022 MCH (RBC) [Entitic mass] 30.8 pg 24.7-34.3 [facility] MCHC Auto (RBC) [Mass/Vol]Or dered By: PROVIDER TEMP on 10-08-2022 MCHC (RBC) [Mass/Vol] 33.0 g/dL 32.0-35.0 [facility] MCV Auto (RBC) [Entitic vol] Ordered By: PROVIDER TEMP on 10-08-2022 MCV (RBC) [Entitic vol] 93.5 fL 80-100 [facility] Monocyte distribution width [Entitic volume] in Blood by AutomatedOrdered By: PROVIDER TEMP on 10-08-2022 Monocyte distribution width Auto (Bld) [Entitic vol] 15.04 % 0.00-20.00 [facility] Monocytes Auto (Bld) [#/Vol] Ordered By: PROVIDER TEMP on 10-08-2022 Monocytes (Bld) [#/Vol] 1.1 10*3/uL 0.0-0.8 [facility] Monocytes/100 WBC Auto (Bld) Ordered By: PROVIDER TEMP on 10-08-2022 Monocytes/100 WBC (Bld) 7.1 % . [facility] Neutrophils Auto (Bld) [#/Vo l]Ordered By: PROVIDER TEMP on 10-08-2022 Neutrophils (Bld) [#/Vol] 9.5 10*3/uL 1.8-7.7 [facility] Neutrophils/100 WBC Auto (Bl d)Ordered By: PROVIDER TEMP on 10-08-2022 Neutrophils/100 WBC (Bld) 61.4 % . [facility] No Panel InformationOrdered By: PROVIDER TEMP on 10-08-2022 Estimated GFR () > 60 mL/Min [facility] Comment on above: GFR estimated refere nce range: According to KDOQI guidelines, <60 ml/min/1.73m2 is sufficient to diagnose a patient with chronic kidney disease. Pharmacy Creatinine Clearance (Chem 91.28 [facility] Nucleated erythrocytes [Pres ence] in Blood by Automated countOrdered By: PROVIDER TEMP on 10-08-2022 Nucleated RBC Auto Ql (Bld) 0.1 /100{WBC} 0-0.5 [facility] Platelet mean volume Auto (B ld) [Entitic vol]Ordered By: PROVIDER TEMP on 10-08-2022 Platelet mean volume (Bld) [Entitic vol] 7.1 fL 6.3-10.7 [facility] Platelets Auto (Bld) [#/Vol] Ordered By: PROVIDER TEMP on 10-08-2022 Platelets (Bld) [#/Vol] 357 10*3/uL 150-450 [facility] Protein [Mass/volume] in Ser um or PlasmaOrdered By: PROVIDER TEMP on 10-08-2022 Protein [Mass/Vol] 6.6 g/dL 6.1-7.9 [facility] RBC Auto (Bld) [#/Vol]Ordere d By: PROVIDER TEMP on 10-08-2022 RBC (Bld) [#/Vol] 4.83 10*6/uL 3.60-5.00 [facility] Serum or plasma alanine blanco otransferase measurement without P-5'-P (enzymatic activiOrdered By: PROVIDER TEMP on 10-08-2022 ALT No additional P-5'-P [Catalytic activity/Vol] 22 U/L 10-60 [facility] Serum or plasma albumin/glob ulin mass ratioOrdered By: PROVIDER TEMP on 10-08-2022 Albumin/Globulin [Mass ratio] 1.1 {ratio} [facility] Serum or plasma alkaline shyla sphatase measurement (enzymatic activity/volume)Ordered By: PROVIDER TEMP on 10-08-2022 ALP [Catalytic activity/Vol] 76 U/L 32-92 [facility] Serum or plasma anion gap de terminationOrdered By: PROVIDER TEMP on 10-08-2022 Anion gap [Moles/Vol] 10.6 mmol/L 6.0-15.0 [facility] Serum or plasma aspartate am inotransferase measurement (enzymatic activity/volume)Ordered By: PROVIDER TEMP on 10-08-2022 AST [Catalytic activity/Vol] 14 U/L 10-42 [facility] Serum or plasma calcium rocío urement (mass/volume)Ordered By: PROVIDER TEMP on 10-08-2022 Calcium [Mass/Vol] 8.5 mg/dL 8.2-10.2 [facility] Serum or plasma chloride martin surement (moles/volume)Ordered By: PROVIDER TEMP on 10-08-2022 Chloride [Moles/Vol] 101 mmol/L 95-114 [facility] Serum or plasma creatine kin ase MB (CKMB)/total creatine kinase (CK) ratio by calculaOrdered By: PROVIDER TEMP on 10-08-2022 CK.MB Calc [Catalytic fraction] 1.8 % 0.00-2.50 [facility] Serum or plasma creatine kin ase MB measurement (mass/volume)Ordered By: PROVIDER TEMP on 10-08-2022 CK.MB [Mass/Vol] 1.2 ng/mL 0.6-6.3 [facility] Serum or plasma glucose rocío urement (mass/volume)Ordered By: PROVIDER TEMP on 10-08-2022 Glucose [Mass/Vol] 112 mg/dL 70-100 [facility] Comment on above: ADA recommended refe rence rangeRandom Glucose Reference Range is dependent on time and content of last meal. Glucose of more than 200 mg/dL in a nonstressed, ambulatory subject supports the diagnosis of Diabetes Mellitus. Serum or plasma potassium me asurement (moles/volume)Ordered By: PROVIDER TEMP on 10-08-2022 Potassium [Moles/Vol] 3.4 mmol/L 3.5-5.1 [facility] Serum or plasma sodium measu rement (moles/volume)Ordered By: PROVIDER TEMP on 10-08-2022 Sodium [Moles/Vol] 135 mmol/L 136-146 [facility] Serum or plasma total biliru bin measurement (mass/volume)Ordered By: PROVIDER TEMP on 10-08-2022 Bilirubin [Mass/Vol] 0.5 mg/dL 0.3-1.2 [facility] Serum or plasma total carbon dioxide measurement (moles/volume)Ordered By: PROVIDER TEMP on 10-08-2022 CO2 [Moles/Vol] 26.8 mmol/L 22.0-30.0 [facility] Serum or plasma urea nitroge n measurement (mass/volume)Ordered By: PROVIDER TEMP on 10-08-2022 Urea nitrogen [Mass/Vol] 13 mg/dL 9-23 [facility] Troponin I.cardiac [Mass/vol ume] in Serum or Plasma by High sensitivity methodOrdered By: PROVIDER TEMP on 10-08-2022 Troponin I.cardiac High sensitivity method [Mass/Vol] 3 pg/mL 0-15 [facility] WBC Auto (Bld) [#/Vol]Ordere d By: PROVIDER TOM on 10-08-2022 WBC (Bld) [#/Vol] 15.5 10*3/uL 3.8-11.6 [facility] XR chest 2V*on 10-01-2022 XR chest 2V* [facility] [employer] Other XR chest 2V* [facility] [email or web address] Other XR chest 2V* 1111 [facility] [employer] Other XR chest 2V* ELENA Dobbins [address] [facility] [employer] Other XR chest 2V* XRay Report [employer] Other XR chest 2V* Signed [employer] Other XR chest 2V* Patient: Genevieve Vidal MR#: [id number] [place] [email or web address] Other XR chest 2V* 3649 [employer] Other XR chest 2V* : 1970 Acct:[id number] [employer] Other XR chest 2V* Age/Sex: 51 / F ADM Date: 10/01/22 [employer] Other XR chest 2V* Loc: XDCLY Room: Typ e: REG CLI [employer] Other XR chest 2V* [facility]ending Dr: [facility] [employer] Other XR chest 2V* [facility]: [facility] [employer] Other XR chest 2V* Ordering Provider: ELLIE INGRAMRuperto [employer] Other XR chest 2V* Date of Service: 10/01/22 [employer] Other XR chest 2V* XR/XR chest 2V*: COUGH [employer] Other XR chest 2V* Chest 2 views [facility] [employer] Other XR chest 2V* CLINICAL HISTORY: Dr arteaga cough, hoarseness, shortness of breath, wheezing, upper middle back pain for 3 [employer] Other XR chest 2V* weeks. [employer] Other XR chest 2V* COMPARISON: None [employer] Other XR chest 2V* FINDINGS: [employer] Other XR chest 2V* Heart normal in size . Mild left lower lobe linear atelectasis/scarring. No consolidation [employer] Other XR chest 2V* pneumothorax pleural effusion or free air. [employer] Other XR chest 2V* X R/XR chest 2V* [employer] Other XR chest 2V* IMPRESSION: [employer] Other XR chest 2V* MILD LEFT LOWER LOBE LINEAR ATELECTASIS/SCARRING. NO CONSOLIDATION TO SUGGEST PNEUMONIA. [employer] Other XR chest 2V* Impression dictated by: Brice Taylor Jr., Jimmie10/01/2022 3:33 PM [employer] Other XR chest 2V* Dictation Location: RADIO-PC-14 [employer] Other XR chest 2V* Transcribed By: SUKHDEV 10/01/22 [facility] [employer] Other XR chest 2V* Dictated By: Brice Taylor Jr, DO 10/01/22 [facility] [employer] Other XR chest 2V* Signed By: [employer] Other XR chest 2V* 10/01/22 1533 [employer] Other A1C HEMOGLOBINon 09-30-2022 HbA1c (Bld) [Mass fraction] 6.1 % [employer] Other HbA1c (Bld) [Mass fraction]o n 09-30-2022 A1C HEMOGLOBIN [place] [employer] [facility] [employer] Other PROF CHEM 8 (BAS METB)on Anion gap [Moles/Vol] 17.9 mmol/L Normal [facility] Comment on above: Performed By: #### B MP #### [facility] [address] [place] [address] Dr. Isabel Wolfe Calcium [Mass/Vol] 9.1 mg/dL Normal 8.5-10.1 [facility] Comment on above: Performed By: #### B MP #### [facility] [address] [place] [address] [address] Isabel Wolfe Chloride [Moles/Vol] 103 mmol/L Normal 98-107 [facility] Comment on above: Performed By: #### B MP #### [facility] [address] [place] [address] Dr. Isabel Wolfe CO2 [Moles/Vol] 22.9 mmol/L Normal 21.0-32.0 [facility] Comment on above: Performed By: #### B MP #### [facility] [address] [place] [address] [address] Isabel Wolfe Creatinine [Mass/Vol] 0.92 mg/dL Normal 0.55-1.02 [facility] Comment on above: Performed By: #### B MP #### [facility] [address] [place] [address] Dr. Isabel Wolfe EGFR-AF PUERTO RICAN >60 Normal >=60 [facility] Comment on above: Performed By: #### B MP #### [facility] [address] [place] [address] Dr. Isabel Wolfe EGFR-NON AF PUERTO RICAN >60 Normal >=60 [facility] Comment on above: Performed By: #### B MP #### [facility] [address] [place] [address] [address] Isabel Wolfe Glucose [Mass/Vol] 178 mg/dL Critically high 74-106 T [facility] Comment on above: Performed By: #### B MP #### [facility] [address] [place] [id number] Isabel Wolfe Potassium [Moles/Vol] 3.8 mmol/L Normal 3.5-5.1 [facility] Comment on above: Performed By: #### B MP #### [facility] [address] [place] [address] [address] Isabel Wolfe Sodium [Moles/Vol] 140 mmol/L Normal 136-145 [facility] Comment on above: Performed By: #### B MP #### [facility] [address] [place] [address] [address] Isabel Wolfe Urea nitrogen [Mass/Vol] 11.0 mg/dL Normal 7.0-18.0 [facility] Comment on above: Performed By: #### B MP #### [facility] [address] [place], [place] [id number] Dr. Isabel Wolfe Urea nitrogen/Creatinine [Mass ratio] 12.0 mg/mg Normal [facility] Comment on above: Performed By: #### B MP #### [facility] [address] [place] [address] [address] Isabel Wolfe COVID + FLU Quick Testingon 09-20-2022 SARS-CoV-2 (COVID-19) RNA PIPER+probe Ql (Unsp spec) Negative [facility] [employer] Other COVID + FLU Quick Testing Negative [facility] [employer] Other Quick Strepon 09-20-2022 S. pyogenes Org specific cx Ql (Throat) Negative [facility] [employer] Other Quick Strep [facility] [employer] Other Automated erythrocytes count in urine sediment (number/area)Ordered By: Reinaldo Mehta on 09-10-2022 RBC Auto (Urine sed) [#/Area] 1-2 [HPF] 0-4 [facility] Automated leukocytes count i n urine sediment (number/area)Ordered By: Reinaldo Mehta on 09-10-2022 WBC Auto (Urine sed) [#/Area] 3-4 [HPF] 0-4 [facility] Basophils Auto (Bld) [#/Vol] Ordered By: Reinaldo Mehta on 09-10-2022 Basophils (Bld) [#/Vol] 0.1 10*3/uL 0.0-0.2 [facility] Basophils/100 WBC Auto (Bld) Ordered By: Reinaldo Mehta on 09-10-2022 Basophils/100 WBC (Bld) 0.6 % . [facility] Bilirubin Test strip Ql (U)O rdered By: Reinaldo Mehta on 09-10-2022 Bilirubin Ql (U) Negative Negative [facility] Body fluid albumin measureme nt (mass/volume)Ordered By: Reinaldo Mehta on 09-10-2022 Albumin (Body fld) [Mass/Vol] 3.6 g/dL 3.2-5.5 [facility] Color Auto (U)Ordered By: Shady Mehta on 09-10-2022 Color (U) Yellow Yellow [facility] Creatinine and Glomerular fi ltration rate.predicted panel (S/P/Bld)Ordered By: Reinaldo Mehta on 09-10-2022 Creatinine [Mass/Vol] 0.84 mg/dL 0.44-1.03 [facility] Direct bilirubin measurement Ordered By: Reinaldo Mehta on 09-10-2022 Bilirubin.direct [Mass/Vol] 0.1 mg/dL 0.0-0.4 [facility] Eosinophils Auto (Bld) [#/Vo l]Ordered By: Reinaldo Mehta on 09-10-2022 Eosinophils (Bld) [#/Vol] 0.2 10*3/uL 0.0-0.45 [facility] Eosinophils/100 WBC Auto (Bl d)Ordered By: Reinaldo Mehta on 09-10-2022 Eosinophils/100 WBC (Bld) 1.6 % . [facility] Erythrocyte distribution wid th Auto (RBC) [Ratio]Ordered By: Reinaldo Mehta on 09-10-2022 Erythrocyte distribution width (RBC) [Ratio] 13.6 % 11.9-15.3 [facility] Estimated glomerular filtrat ion rate (GFR) non- AmericanOrdered By: Reinaldo Mehta on 09-10-2022 GFR/1.73 sq M.predicted among non-blacks MDRD (S/P/Bld) [Vol rate/Area] > 60 mL/Min [facility] Globulin Calc (S) [Mass/Vol] Ordered By: Reinaldo Mehta on 09-10-2022 Globulin (S) [Mass/Vol] 3.1 g/dL [facility] Hematocrit Auto (Bld) [Volum e fraction]Ordered By: Reinaldo Mehta on 09-10-2022 Hematocrit (Bld) [Volume fraction] 40.7 % 34.0-46.4 [facility] Hemoglobin [Mass/volume] in BloodOrdered By: Reinaldo Mehta on 09-10-2022 Hemoglobin (Bld) [Mass/Vol] 13.5 g/dL 11.8-15.4 [facility] Ketones Auto test strip (U) [Mass/Vol]Ordered By: Reinaldo Mehta on 09-10-2022 Ketones (U) [Mass/Vol] Trace Negative [facility] - Chemistry and C hemistry - challengeOrdered By: Reinaldo Mehta on 09-10-2022 Lipase [Catalytic activity/Vol] 41.0 U/L 22-51 [facility] - CoagulationOrde red By: Reinaldo Mehta on 09-10-2022 PT Coag (PPP) [Time] 13.6 s 9.0-12.9 [facility] - UrinalysisOrder ed By: Reinaldo Mehta on 09-10-2022 Hyaline casts LM Ql (Urine sed) 0-8 [LPF] 0-8 [facility] Leukocytes [#/volume] correc aleksey for nucleated erythrocytes in Blood by Automated counOrdered By: Reinaldo Mehta on 09-10-2022 WBC corrected for nucl RBC Auto (Bld) [#/Vol] 11.7 10*3/uL 3.8-11.6 [facility] Lymphocytes Auto (Bld) [#/Vo l]Ordered By: Reinaldo Mehta on 09-10-2022 Lymphocytes (Bld) [#/Vol] 3.5 10*3/uL 1.00-4.8 [facility] Lymphocytes/100 WBC Auto (Bl d)Ordered By: Rienaldo Mehta on 09-10-2022 Lymphocytes/100 WBC (Bld) 29.7 % . [facility] MCH Auto (RBC) [Entitic mass ]Ordered By: Reinaldo Mehta on 09-10-2022 MCH (RBC) [Entitic mass] 30.5 pg 24.7-34.3 [facility] MCHC Auto (RBC) [Mass/Vol]Or dered By: Reinaldo Mehta on 09-10-2022 MCHC (RBC) [Mass/Vol] 33.2 g/dL 32.0-35.0 [facility] MCV Auto (RBC) [Entitic vol] Ordered By: Reinaldo Mehta on 09-10-2022 MCV (RBC) [Entitic vol] 91.9 fL 80-100 [facility] Monocyte distribution width [Entitic volume] in Blood by AutomatedOrdered By: Reinaldo Mehta on 09-10-2022 Monocyte distribution width Auto (Bld) [Entitic vol] 18.22 % 0.00-20.00 [facility] Monocytes Auto (Bld) [#/Vol] Ordered By: Reinaldo Mehta on 09-10-2022 Monocytes (Bld) [#/Vol] 0.8 10*3/uL 0.0-0.8 [facility] Monocytes/100 WBC Auto (Bld) Ordered By: Reinaldo Mehta on 09-10-2022 Monocytes/100 WBC (Bld) 6.7 % . [facility] Neutrophils Auto (Bld) [#/Vo l]Ordered By: Reinaldo Mehta on 09-10-2022 Neutrophils (Bld) [#/Vol] 7.2 10*3/uL 1.8-7.7 [facility] Neutrophils/100 WBC Auto (Bl d)Ordered By: Reinaldo Mehta on 09-10-2022 Neutrophils/100 WBC (Bld) 61.4 % . [facility] Nitrite Test strip Ql (U)Ord ered By: Reinalod Mehta on 09-10-2022 Nitrite Ql (U) Negative Negative [facility] No Panel InformationOrdered By: Reinaldo Mehta on 09-10-2022 Estimated GFR () > 60 mL/Min [facility] Comment on above: GFR estimated refere nce range: According to KDOQI guidelines, <60 ml/min/1.73m2 is sufficient to diagnose a patient with chronic kidney disease. Pharmacy Creatinine Clearance (Chem 101.87 [facility] Nucleated erythrocytes [Pres ence] in Blood by Automated countOrdered By: Reinaldo Mehta on 09-10-2022 Nucleated RBC Auto Ql (Bld) 0.0 /100{WBC} 0-0.5 [facility] Platelet mean volume Auto (B ld) [Entitic vol]Ordered By: Reinaldo Mehta on 09-10-2022 Platelet mean volume (Bld) [Entitic vol] 7.7 fL 6.3-10.7 [facility] Platelet poor plasma interna tional normalized ratio (INR) by coagulation assay (relatOrdered By: Reinaldo Mehta on 09-10-2022 INR Coag (PPP) [Relative time] 1.2 {INR} [facility] Comment on above: INR Therapeutic Rang [...] 09-10-2022 Platelets (Bld) [#/Vol] 367 10*3/uL 150-450 [facility] Protein Auto test strip (U) [Mass/Vol]Ordered By: Reinaldo Mehta on 09-10-2022 Protein (U) [Mass/Vol] Trace mg/dL Negative [facility] Protein [Mass/volume] in Ser um or PlasmaOrdered By: Reinaldo Mehta on 09-10-2022 Protein [Mass/Vol] 6.7 g/dL 6.1-7.9 [facility] RBC Auto (Bld) [#/Vol]Ordere d By: Reinaldo Mehta on 09-10-2022 RBC (Bld) [#/Vol] 4.42 10*6/uL 3.60-5.00 [facility] Serum or plasma alanine blanco otransferase measurement without P-5'-P (enzymatic activiOrdered By: Reinaldo Mehta on 09-10-2022 ALT No additional P-5'-P [Catalytic activity/Vol] 16 U/L 10-60 [facility] Serum or plasma albumin/glob ulin mass ratioOrdered By: Reinaldo Mehta on 09-10-2022 Albumin/Globulin [Mass ratio] 1.2 {ratio} [facility] Serum or plasma alkaline shyla sphatase measurement (enzymatic activity/volume)Ordered By: Reinaldo Mehta on 09-10-2022 ALP [Catalytic activity/Vol] 89 U/L 32-92 [facility] Serum or plasma anion gap de terminationOrdered By: Reinaldo Mehta on 09-10-2022 Anion gap [Moles/Vol] 15.1 mmol/L 6.0-15.0 [facility] Serum or plasma aspartate am inotransferase measurement (enzymatic activity/volume)Ordered By: Reinaldo Mehta on 09-10-2022 AST [Catalytic activity/Vol] 15 U/L 10-42 [facility] Serum or plasma calcium rocío urement (mass/volume)Ordered By: Reinaldo Mehta on 09-10-2022 Calcium [Mass/Vol] 9.2 mg/dL 8.2-10.2 [facility] Serum or plasma chloride martin surement (moles/volume)Ordered By: Reinaldo Mehta on 09-10-2022 Chloride [Moles/Vol] 101 mmol/L 95-114 [facility] Serum or plasma glucose rocío urement (mass/volume)Ordered By: Reinaldo Mehta on 09-10-2022 Glucose [Mass/Vol] 91 mg/dL 70-100 [facility] Comment on above: ADA recommended refe rence rangeRandom Glucose Reference Range is dependent on time and content of last meal. Glucose of more than 200 mg/dL in a nonstressed, ambulatory subject supports the diagnosis of Diabetes Mellitus. Serum or plasma non-glucuron idated bilirubin measurement (mass/volume)Ordered By: Reinaldo Mehta on 09-10-2022 Bilirubin.indirect [Mass/Vol] 0.4 mg/dL [facility] Serum or plasma potassium me asurement (moles/volume)Ordered By: Reinaldo Mehta on 09-10-2022 Potassium [Moles/Vol] 2.9 mmol/L 3.5-5.1 [facility] Comment on above: Results calledat 192 1 on 09/10/22 Serum or plasma sodium measu rement (moles/volume)Ordered By: Reinaldo Mehta on 09-10-2022 Sodium [Moles/Vol] 137 mmol/L 136-146 [facility] Serum or plasma total biliru bin measurement (mass/volume)Ordered By: Reinaldo Mehta on 09-10-2022 Bilirubin [Mass/Vol] 0.5 mg/dL 0.3-1.2 [facility] Serum or plasma total carbon dioxide measurement (moles/volume)Ordered By: Reinaldo Mehta on 09-10-2022 CO2 [Moles/Vol] 23.8 mmol/L 22.0-30.0 [facility] Serum or plasma urea nitroge n measurement (mass/volume)Ordered By: Reinaldo Mehta on 09-10-2022 Urea nitrogen [Mass/Vol] 10 mg/dL 9- [facility] Specific gravity Auto test s trip (U) [Rel density]Ordered By: Reinaldo Mehta on 09-10-2022 Specific gravity (U) [Rel density] 1.025 1.001-1.03 0 [facility] Squamous epithelial cells de tection in urine sediment by light microscopyOrdered By: Reinaldo Mehta on 09-10-2022 Epithelial cells.squamous LM Ql (Urine sed) 1-2 [HPF] 0-2 [facility] Urine bacteria detection by automated methodOrdered By: Reinaldo Mehta on 09-10-2022 Bacteria Auto Ql (U) None seen None Seen [facility] Urine clarity by refractomet ry automatedOrdered By: Reinaldo Mehta on 09-10-2022 Clarity Refractometry automated (U) Clear Clear [facility] Urine glucose measurement by automated test strip (mass/volume)Ordered By: Reinaldo Mehta on 09-10-2022 Glucose Auto test strip (U) [Mass/Vol] Normal mg/dL Normal [facility] Urine hemoglobin detection b y automated test stripOrdered By: Reinaldo Mehta on 09-10-2022 Hemoglobin Auto test strip Ql (U) Negative Negative [facility] Urine leukocyte esterase det ection by automated test stripOrdered By: Reinaldo Mehta on 09-10-2022 Leukocyte esterase Auto test strip Ql (U) 1+ Negative [facility] Urobilinogen Auto test strip (U) [Mass/Vol]Ordered By: Reinaldo Mehta on 09-10-2022 Urobilinogen (U) [Mass/Vol] Normal mg/dL Normal [facility] WBC Auto (Bld) [#/Vol]Ordere d By: Reinaldo Mehta on 09-10-2022 WBC (Bld) [#/Vol] 11.7 10*3/uL 3.8-11.6 [facility] pH Auto test strip (U)Ordere d By: Reinaldo Mehta on 09-10-2022 pH (U) 6.0 [pH] 5.0-9.0 [facility] COVID/FLU RT-PCRon SARS-CoV-2 (COVID-19) RNA PIPER+probe Ql (Unsp spec) Negative [facility] Other COVID/FLU RT-PCR Negative [facility] Other Quick Strepon 07-02-2022 S. pyogenes Org specific cx Ql (Throat) Negative [facility] Other Quick Strep [facility] Other FREE T4on 06-05-2022 Free T4 [Mass/Vol] 0.77 ng/dL Normal 0.76-1.46 [facility] Comment on above: Performed By: #### F T4 #### [facility] [address] [place], [place] [address] Dr. Isabel Wolfe T4on 06-05-2022 T4 [Mass/Vol] 6.20 ug/dL Normal 4.80-13.90 [facility] Comment on above: Performed By: #### T 4, TSH #### [facility] [address] [address] [address] Isabel Wolfe TSHon 06-05-2022 TSH 0.845 uIU/mL Normal 0.358-3.74 0 [facility] Comment on above: Performed By: #### T 4, TSH #### [facility] [address] [place] [address] Dr. Isabel Wolfe MICROALBUMIN/ CREATININE RAT IOon 04-09-2022 Albumin, Urine 4.4 ug/mL Normal Not Estab. The [facility] Comment on above: Performed By: #### M ALBCRL #### [facility] [address] [place] [address] Dr. Isabel Wolfe Albumin/ Creatinine Ratio 11 mg/g creat Normal 0-29 [facility] Comment on above: Result Comment: Norm al: 0 - 29 Moderately increased: 30 - 300 Severely increased: >300 Performed By: #### M ALBCRL #### [facility] [address] [place] [address] Dr. Isabel Wolfe Creatinine, Urine 41.2 mg/dL Normal Not Estab. The [facility] Comment on above: Performed By: #### M ALBCRL #### [facility] [address] [place] [address] Dr. Isabel Wolfe GLYCOHEMOGLOBIN A1Con 2021 ADA RECOMMENDATION SEE BELOW Normal [facility] Comment on above: Result Comment: ADA RECOMMENDED LIMIT 4.0 - 6.0 ADA THERAPEUTIC TARGET < 7.0 ACTION SUGGESTED > 7.0 Performed By: #### A 1C #### [facility] [address] [place] [address] Dr. Isabel Wolfe Glucose [Mass/Vol] 117 mg/dL Normal [facility] Comment on above: Performed By: #### A 1C #### [facility] [address] [place] [address] Dr. Isabel Wolfe HbA1c (Bld) [Mass fraction] 5.7 % Normal 4.5-6.2 [facility] Comment on above: Performed By: #### A 1C #### [facility] [address] [place] [address] Dr. Isabel Wolfe LIPID PROFILEon 04-06-2022 CHOL-HDL RATIO NORM SEE BELOW Normal [facility] Comment on above: Result Comment: 3.3 - 4.4 LOW RISK 4.4 - 7.1 AVERAGE RISK 7.1 - 11.0 MODERATE RISK >11.0 HIGH RISK Performed By: #### L IPID, CMP #### [facility] [address] [address] [address] Isabel Wolfe Cholesterol [Mass/Vol] 165 mg/dL Normal <=200 [facility] Comment on above: Performed By: #### L IPID, CMP #### [facility] [address] [address] [address] Isabel Wolfe Cholesterol in HDL [Mass/Vol] 38 mg/dL Critically low 40-60 [facility] Comment on above: Performed By: #### L IPID, CMP #### [facility] [address] [address] [address] Isabel Wolfe Cholesterol in LDL [Mass/Vol] 110.0 mg/dL Normal [facility] Comment on above: Performed By: #### L IPID, CMP #### [facility] [address] [address] [address] Isabel Wolfe Cholesterol.total/Chol esterol in HDL [Mass ratio] 4.3 {ratio} Normal [facility] Comment on above: Performed By: #### L IPID, CMP #### [facility] [address] [address] [address] Isabel Wolfe HDL NORMAL > or = 60 mg/dl - LO W CARDIOVASCULAR RISK <40 mg/dl - HIGH CARDIOVASCULAR RISK Normal [facility] Comment on above: Performed By: #### L IPID, CMP #### [facility] [id number] Isabel Wolfe LDL CALC NORMAL SEE BELOW Normal [facility] Comment on above: Result Comment: <100 mg/dl OPTIMAL 100 - 129 mg/dl NEAR OR ABOVE OPTIMAL 130 - 159 mg/dl BORDERLINE HIGH 160 - 189 mg/dl HIGH >190 mg/dl VERY HIGH Performed By: #### L IPID, CMP #### [facility] [address] [place] [address] Dr. Isabel Wolfe Triglyceride [Mass/Vol] 85 mg/dL Normal <=150 [facility] Comment on above: Performed By: #### L IPID, CMP #### [facility] [address] [place] [address] Dr. Isabel Wolfe VLDL CALC 17.0 mg/dL Normal [facility] Comment on above: Performed By: #### L IPID, CMP #### [facility] [address] [place] [address] Dr. Isabel Wolfe PROF 14(COMP METB)on 022 Albumin [Mass/Vol] 3.3 g/dL Critically low 3.4-5.0 [facility] Comment on above: Performed By: #### L IPID, CMP #### [facility] [address] [place] [address] Dr. Isabel Wolfe Albumin/Globulin [Mass ratio] 0.9 {ratio} Normal [facility] Comment on above: Performed By: #### L IPID, CMP #### [facility] [address] [place] [address] Dr. Isabel Wolfe ALP [Catalytic activity/Vol] 86 U/L Normal 46-116 [facility] Comment on above: Performed By: #### L IPID, CMP #### [facility] [address] [place] [address] Dr. Isabel Wolfe ALT [Catalytic activity/Vol] 17 U/L Normal 14-59 [facility] Comment on above: Performed By: #### L IPID, CMP #### [facility] [address] [place] [address] Dr. Isabel Wolfe Anion gap [Moles/Vol] 14.3 mmol/L Normal [facility] Comment on above: Performed By: #### L IPID, CMP #### [facility] [address] [place] [address] Dr. Isabel Wolfe AST [Catalytic activity/Vol] 10 U/L Critically low 15-37 [facility] Comment on above: Performed By: #### L IPID, CMP #### [facility] [address] [address] [address] Isabel Wolfe Bilirubin [Mass/Vol] 0.5 mg/dL Normal 0.2-1.0 [facility] Comment on above: Performed By: #### L IPID, CMP #### [facility] [address] [place] [address] Dr. Isabel Wolfe Calcium [Mass/Vol] 9.0 mg/dL Normal 8.5-10.1 [facility] Comment on above: Performed By: #### L IPID, CMP #### [facility] [address] [place] [address] Dr. Isabel Wolfe Chloride [Moles/Vol] 104 mmol/L Normal 98-107 [facility] Comment on above: Performed By: #### L IPID, CMP #### [facility] [address] [place] [address] Dr. Isabel Wolfe CO2 [Moles/Vol] 25.8 mmol/L Normal 21.0-32.0 [facility] Comment on above: Performed By: #### L IPID, CMP #### [facility] [address] [place] [address] Dr. Isabel Wolfe Creatinine [Mass/Vol] 0.95 mg/dL Normal 0.55-1.02 [facility] Comment on above: Performed By: #### L IPID, CMP #### [facility] [address] [place] [address] Dr. Isabel Wolfe EGFR-AF PUERTO RICAN >60 Normal >=60 [facility] Comment on above: Performed By: #### L IPID, CMP #### [facility] [address] [place] [address] Dr. Isabel Wolfe EGFR-NON AF PUERTO RICAN >60 Normal >=60 [facility] Comment on above: Performed By: #### L IPID, CMP #### [facility] [address] [place] [address] Dr. Isabel Wolfe Globulin (S) [Mass/Vol] 3.6 g/dL Normal [facility] Comment on above: Performed By: #### L IPID, CMP #### [facility] [address] [address] [address] Isabel Wolfe Glucose [Mass/Vol] 101 mg/dL Normal 74-106 [facility] Comment on above: Performed By: #### L IPID, CMP #### [facility] [address] [address] [address] Isabel Wolfe Potassium [Moles/Vol] 4.1 mmol/L Normal 3.5-5.1 [facility] Comment on above: Performed By: #### L IPID, CMP #### [facility] [address] [address] [address] Isabel Wolfe Protein [Mass/Vol] 6.9 g/dL Normal 6.4-8.2 [facility] Comment on above: Performed By: #### L IPID, CMP #### [facility] [address] [address] [address] Isabel Wolfe Sodium [Moles/Vol] 140 mmol/L Normal 136-145 [facility] Comment on above: Performed By: #### L IPID, CMP #### [facility] [address] [address] [address] Isabel Wolfe Urea nitrogen [Mass/Vol] 12.0 mg/dL Normal 7.0-18.0 [facility] Comment on above: Performed By: #### L IPID, CMP #### [facility] [address] [address] [address] Isabel Wolfe Urea nitrogen/Creatinine [Mass ratio] 12.6 mg/mg Normal [facility] Comment on above: Performed By: #### L IPID, CMP #### [facility] [address] [address] [address] Isabel Wolfe COVID Quick Testingon 2020 Result Negative [facility] Other MRI ELBOW LEFT WO CONTRASTon 08-10-2020 [...] Jay Umanzor MD 08/10/20 Final result Normal [facility] 1. High-grade partial-thickness tearing at the [...] collection identified within the visualized soft tissues. [facility] [place], [place] [facility], [facility] Incoming Radiant Results From [employer] - 08/10/2020 2:33 PM EST EXAMINATION: MRI [...] No acute osseous abnormality. [facility], [place] Vital Signs Date Time Vital Sign Value Performing Clinician Denise pena 05-22-2025 09:55-0400 Body height 157.5 cm Anamika Celestin NP Work Phone: [facility] 05-22-2025 09:55-0400 Body mass index (BMI) [Ratio] 44.99 kg/m2 Anamika Celestin NP Work Phone: [facility] 05-22-2025 09:55-0400 Body weight 111.58 kg Anamika Milbank TEST [employer] Work Phone: [facility] 05-22-2025 09:55-0400 Diastolic blood pressure 84 mm[Hg] Anamika Milbank TEST TU[employer]KER Work Phone: [facility] 05-22-2025 09:55-0400 Heart rate 64 /min Anamika Milbank TEST T[employer]KER Work Phone: [facility] 05-22-2025 09:55-0400 Respiratory rate 17 /min Anamika Jani TEST TUBE [employer]KER Work Phone: [facility] 05-22-2025 09:55-0400 SaO2% (BldA) [Mass fraction] 97 % Anamika Jani TEST T[employer] Work Phone: [facility] 05-22-2025 09:55-0400 Systolic blood pressure 138 mm[Hg] Anamika Milbank TEST TU[employer]KER Work Phone: [facility] 05-08-2025 10:03-0400 Body height 157.5 cm Anamika Milbank TEST TUBE MAKER Work Phone: [facility] 05-08-2025 10:03-0400 Body mass index (BMI) [Ratio] 45.73 kg/m2 Anamika Jani TEST [employer] Work Phone: [facility] 05-08-2025 10:03-0400 Body weight 113.4 kg Anamika Milbank TEST [employer]KER Work Phone: [facility] 05-08-2025 10:03-0400 Diastolic blood pressure 78 mm[Hg] Anamika Milbank TEST TUBE MAKER Work Phone: [facility] 05-08-2025 10:03-0400 Heart rate 76 /min Anamika Jani TEST TUBE [employer]KER Work Phone: [facility] 05-08-2025 10:03-0400 Respiratory rate 17 /min Anamika Jani TEST T[employer]ER Work Phone: [facility] 05-08-2025 10:03-0400 SaO2% (BldA) [Mass fraction] 98 % Anamika Jani TEST TUBE MAKER Work Phone: [facility] 05-08-2025 10:03-0400 Systolic blood pressure 128 mm[Hg] Anamika Jani TEST [employer] Work Phone: [facility] 05-02-2025 15:06-0400 Body height 157.5 cm Alexis Grace DPM Work Phone: [facility] 05-02-2025 15:06-0400 Body mass index (BMI) [Ratio] 49.02 kg/m2 Alexis Grace DPM Work Phone: [facility] 05-02-2025 15:06-0400 Body weight 121.56 kg Alexis Grace DPM Work Phone: [facility] 03-28-2025 14:42-0400 Body weight 121.56 kg Alexis Grace DPM Work Phone: [facility] 11-30-2024 12:26-0400 Body height 157.5 cm Martin Larios MD Work Phone: [place] 11-30-2024 12:26-0400 Body mass index (BMI) [Ratio] 46.2 kg/m2 Martin Larios MD Work Phone: [place] 11-30-2024 12:26-0400 Body weight 114.58 kg Martin Larios MD Work Phone: [place] 11-30-2024 12:26-0400 Diastolic blood pressure 74 mm[Hg] Martin Larios MD Work Phone: [place] 11-30-2024 12:26-0400 Heart rate 70 /min Martin Larios MD Work Phone: [place] 11-30-2024 12:26-0400 Systolic blood pressure 118 mm[Hg] Martin Larios MD Work Phone: [place] 11-16-2024 11:01-0400 Diastolic blood pressure 80 mm[Hg] [facility] [place] 11-16-2024 11:01-0400 Heart rate 75 /min [facility] [place] 11-16-2024 11:01-0400 SaO2% (BldA) [Mass fraction] 97 % [address] 11-16-2024 11:01-0400 Systolic blood pressure 152 mm[Hg] [address] 10-19-2024 14:39-0500 Heart rate 64 /min YESENIA NKANSAH-AMANKRA [facility] 10-19-2024 14:39-0500 SaO2% (BldA) [Mass fraction] 96 % YESENIA NKANSAH-AMANKRA [facility] 10-19-2024 14:39-0500 Respiratory rate 18 /min YESENIA NKANSAH-AMANKRA [facility] 10-19-2024 14:39-0500 Diastolic blood pressure 88 mm[Hg] YESENIA NKANSAH-AMANKRA [facility] 10-19-2024 14:39-0500 Mean blood pressure 107 mm[Hg] YESENIA NKANSAH-AMANKRA [facility] 10-19-2024 14:39-0500 Systolic blood pressure 146 mm[Hg] YESENIA NKANSAH-AMANKRA [facility] 10-19-2024 14:39-0500 Blood Pressure Location YESENIA NKANSAH-AMANKRA [facility] 10-19-2024 13:26-0500 Heart rate 64 /min YESENIA NKANSAH-AMANKRA [facility] 10-19-2024 13:26-0500 SaO2% (BldA) [Mass fraction] 98 % YESENIA NKANSAH-AMANKRA [facility] 10-19-2024 13:26-0500 Respiratory rate 16 /min YESENIA NKANSAH-AMANKRA [facility] 10-19-2024 13:25-0500 Blood Pressure Location YESENIA NKANSAH-AMANKRA [facility] 10-19-2024 13:25-0500 Diastolic blood pressure 78 mm[Hg] YESENIA NKANSAH-AMANKRA [facility] 10-19-2024 13:25-0500 Mean blood pressure 96 mm[Hg] YESENIA NKANSAH-AMANKRA [facility] 10-19-2024 13:25-0500 Systolic blood pressure 133 mm[Hg] YESENIA NKANSAH-AMANKRA [facility] 10-19-2024 13:11-0500 Blood Pressure Location YESENIA NKANSAH-AMANKRA [facility] 10-19-2024 13:11-0500 Body temperature 97.52 [degF] YESENIA NKANSAH-AMANKRA [facility] 10-19-2024 13:11-0500 Diastolic blood pressure 90 mm[Hg] YESENIA NKANSAH-AMANKRA [facility] 10-19-2024 13:11-0500 Heart rate 64 /min YESENIA NKANSAH-AMANKRA [facility] 10-19-2024 13:11-0500 Respiratory rate 16 /min [facility] [place] 10-19-2024 13:11-0500 SaO2% (BldA) [Mass fraction] 97 % YESENIA NKANSAH-AMANKRA [facility] [place] 10-19-2024 13:11-0500 Systolic blood pressure 153 mm[Hg] YESENIA NKANSAH-AMANKRA [facility] [place] 10-19-2024 13:01-0500 Respiratory rate 17 /min YESENIA NKANSAH-AMANKRA [facility] [place] 10-19-2024 12:56-0500 Respiratory rate 12 /min YESENIA NKANSAH-AMANKRA [facility] [place] 10-19-2024 12:46-0500 Body temperature 97.34 [degF] YESENIA NKANSAH-AMANKRA [facility] [place] 10-19-2024 09:21-0500 Mean blood pressure 77 mm[Hg] YESENIA NKANSAH-AMANKRA [facility] [place] 10-19-2024 09:18-0500 Respiratory rate 20 /min YESENIA NKANSAH-AMANKRA [facility] [place] 10-19-2024 09:18-0500 Body temperature 98.06 [degF] YESENIA NKANSAH-AMANKRA [facility] [place] 10-12-2024 14:01-0500 Diastolic blood pressure 79 mm[Hg] YESENIA NKANSAH-AMANKRA [facility] [place] 10-12-2024 14:01-0500 Heart rate 71 /min YESENIA NKANSAH-AMANKRA [facility] [place] 10-12-2024 14:01-0500 Mean blood pressure 93 mm[Hg] YESENIA NKANSAH-AMANKRA [facility] [place] 10-12-2024 14:01-0500 Systolic blood pressure 120 mm[Hg] YESENIA NKANSAH-AMANKRA [facility] [place] 10-12-2024 14:01-0500 Heart rate 70 /min YESENIA NKANSAH-AMANKRA [facility] [place] 10-12-2024 14:01-0500 SaO2% (BldA) [Mass fraction] 100 % YESENIA NKANSAH-AMANKRA [facility] [place] 10-12-2024 13:58-0500 Diastolic blood pressure 71 mm[Hg] YESENIA NKANSAH-AMANKRA [facility] [place] 10-12-2024 13:58-0500 Mean blood pressure 83 mm[Hg] YESENIA NKANSAH-AMANKRA [facility] [place] 10-12-2024 13:58-0500 Systolic blood pressure 109 mm[Hg] YESENIA NKANSAH-AMANKRA [facility] [place] 10-09-2024 11:41-0500 Blood Pressure Location YESENIA NKANSAH-AMANKRA [facility] 10-09-2024 11:41-0500 Diastolic blood pressure 77 mm[Hg] YESENIA NKANSAH-AMANKRA [facility] 10-09-2024 11:41-0500 Heart rate 81 /min YESENIA NKANSAH-AMANKRA [facility] 10-09-2024 11:41-0500 Systolic blood pressure 107 mm[Hg] YESENIA NKANSAH-AMANKRA [facility] 08-09-2024 15:27-0500 Body weight 121.56 kg Dario Palacios DO Work Phone: [facility] 08-09-2024 15:27-0500 Diastolic blood pressure 84 mm[Hg] Dario Palacios DO Work Phone: [facility] 08-09-2024 15:27-0500 Heart rate 85 /min Dario Palacios DO Work Phone: [facility] 08-09-2024 15:27-0500 SaO2% (BldA) [Mass fraction] 95 % Dario Palacios DO Work Phone: [facility] 08-09-2024 15:27-0500 Systolic blood pressure 146 mm[Hg] Dario Palacios DO Work Phone: [facility] 07-31-2024 15:12-0500 Diastolic blood pressure 70 mm[Hg] Martin Larios MD Work Phone: [place] 07-31-2024 15:12-0500 Heart rate 106 /min Martin Larios MD Work Phone: [place] 07-31-2024 15:12-0500 SaO2% (BldA) [Mass fraction] 92 % Martin Larios MD Work Phone: [place] 07-31-2024 15:12-0500 Systolic blood pressure 98 mm[Hg] Martin Larios MD Work Phone: [place] 07-31-2024 14:34-0500 Body height 157.5 cm Martin Larios MD Work Phone: [place] 07-31-2024 14:34-0500 Body mass index (BMI) [Ratio] 48.29 kg/m2 Martin Larios MD Work Phone: [place] 07-31-2024 14:34-0500 Body weight 119.75 kg Martin Larios MD Work Phone: [place] 03-15-2024 14:32-0400 Body height 158.75 cm MD Dario Olmedo Work Phone: [facility] 03-15-2024 14:32-0400 Body mass index (BMI) [Ratio] 47.3 kg/m2 MD Dario Olmedo Work Phone: [facility] 03-15-2024 14:32-0400 Body weight 119.29 kg MD Dario Olmedo Work Phone: [facility] 03-15-2024 14:32-0400 Diastolic blood pressure 77 mm[Hg] MD Dario Olmedo Work Phone: [facility] 03-15-2024 14:32-0400 Heart rate 88 /min MD Dario Olmedo Work Phone: [facility] 03-15-2024 14:32-0400 SaO2% (BldA) [Mass fraction] 94 % MD Dario Olmedo Work Phone: [facility] 03-15-2024 14:32-0400 Systolic blood pressure 125 mm[Hg] MD Dario Olmedo Work Phone: [facility] 02-15-2024 15:05-0400 Diastolic blood pressure 72 mm[Hg] Mloz C-[facility] 02-15-2024 15:05-0400 Systolic blood pressure 118 mm[Hg] oz C-Arm [facility] 02-15-2024 13:59-0400 Body height 157.5 cm oz C-Arm [facility] 02-15-2024 13:59-0400 Body mass index (BMI) [Ratio] 49.38 kg/m2 oz C-Arm [facility] 02-15-2024 13:59-0400 Body temperature 97.59 [degF] oz C-Arm [facility] [employer] [facility] 02-15-2024 13:59-0400 Body weight 122.47 kg [facility] 01-19-2024 10:15-0400 Body height 160 cm [facility] 01-19-2024 10:15-0400 Body mass index (BMI) [Ratio] 48.32 kg/m2 [facility] [employer] 01-19-2024 10:15-0400 Body weight 123.74 kg [facility] [employer] 01-19-2024 10:15-0400 Diastolic blood pressure 90 mm[Hg] [facility] 01-19-2024 10:15-0400 Systolic blood pressure 142 mm[Hg] [facility] 11-26-2023 11:04-0400 Body height 159.38 cm [facility] 11-26-2023 11:04-0400 Body mass index (BMI) [Ratio] 48.5 kg/m2 [facility] 11-26-2023 11:04-0400 Body weight 123.37 kg [facility] 11-26-2023 11:04-0400 Diastolic blood pressure 81 mm[Hg] [facility] 11-26-2023 11:04-0400 Heart rate 89 /min [facility] 11-26-2023 11:04-0400 SaO2% (BldA) [Mass fraction] 97 % [facility] 11-26-2023 11:04-0400 Systolic blood pressure 137 mm[Hg] [facility] 04-16-2023 13:10-0400 Body height 159.38 cm Kera Mccall Other [facility] [employer] Other 04-16-2023 13:10-0400 Body mass index (BMI) [Ratio] 48.06 kg/m2 Kera Mccall Other [facility] [employer] Other 04-16-2023 13:10-0400 Body temperature 97.8 [degF] Kera Mccall Other [facility] [employer] Other 04-16-2023 13:10-0400 Body weight 122.11 kg Kera Mccall Other [facility] [employer] Other 04-16-2023 13:10-0400 Respiratory rate 18 /min Kera Mccall Other [facility] [employer] Other 04-16-2023 13:10-0400 SaO2% (BldA) [Mass fraction] 96 % Kera Mccall Other [facility] Other 02-02-2023 10:00-0400 Body height 159.38 cm Clivekate Onealdiff Other [facility] Other 02-02-2023 10:00-0400 Body mass index (BMI) [Ratio] 48.06 kg/m2 Clive Jamila Other [facility] Other 02-02-2023 10:00-0400 Body weight 122.11 kg Clivekate Onealdiff Other [facility] Other 02-02-2023 10:00-0400 Diastolic blood pressure 73 mm[Hg] Clive Marino Other [facility] Other 02-02-2023 10:00-0400 Respiratory rate 18 /min Clive Onealdiff Other [facility] Other 02-02-2023 10:00-0400 SaO2% (BldA) [Mass fraction] 98 % Clive Marino Other [facility] Other 02-02-2023 10:00-0400 Systolic blood pressure 98 mm[Hg] Clive Marino Other [facility] Other 12-23-2022 15:00-0400 Body height 159.38 cm Dario Olmedo Other [facility] Other 12-23-2022 15:00-0400 Body mass index (BMI) [Ratio] 48.03 kg/m2 Dario Olmedo Other [facility] Other 12-23-2022 15:00-0400 Body weight 122.02 kg Dario Liceano Other [facility] Other 12-23-2022 15:00-0400 Diastolic blood pressure 84 mm[Hg] Dario Liceano Other [facility] Other 12-23-2022 15:00-0400 SaO2% (BldA) [Mass fraction] 100 % Dario Liceano Other [facility] Other 12-23-2022 15:00-0400 Systolic blood pressure 127 mm[Hg] Dario Olmedo Other [facility] Other 12-14-2022 10:30-0400 Body height 159.38 cm Danya Carty Other [facility] Other 12-14-2022 10:30-0400 Body mass index (BMI) [Ratio] 48.04 kg/m2 Danya Helmler Other [facility] Other 12-14-2022 10:30-0400 Body weight 122.06 kg Danyaher Helmler Other [facility] Other 12-14-2022 10:30-0400 Diastolic blood pressure 82 mm[Hg] Danyaher Helmler Other [facility] Other 12-14-2022 10:30-0400 Respiratory rate 18 /min Danya Helmler Other [facility] Other 12-14-2022 10:30-0400 SaO2% (BldA) [Mass fraction] 97 % Danya Carty Other [facility] Other 12-14-2022 10:30-0400 Systolic blood pressure 124 mm[Hg] Danya Carty Other [facility] Other 12-01-2022 14:00-0400 Body height 159.38 cm Serene Fitt Other [facility] Other 12-01-2022 14:00-0400 Body mass index (BMI) [Ratio] 46.96 kg/m2 Serene Fitt Other [facility] Other 12-01-2022 14:00-0400 Body weight 119.3 kg Serene Fitt Other [facility] Other 11-07-2022 11:00-0500 Body height 159.38 cm Ellie Juan Jose Other [facility] Other 11-07-2022 11:00-0500 Body mass index (BMI) [Ratio] 46.17 kg/m2 Ellie Juan Jose Other [facility] Other 11-07-2022 11:00-0500 Body weight 117.3 kg Ellie Ingram Other [facility] Other 11-07-2022 11:00-0500 Diastolic blood pressure 74 mm[Hg] Ellie Ingram Other [facility] Other 11-07-2022 11:00-0500 Respiratory rate 18 /min Ellie Ingram Other [facility] Other 11-07-2022 11:00-0500 SaO2% (BldA) [Mass fraction] 99 % Ellie Ingram Other [facility] Other 11-07-2022 11:00-0500 Systolic blood pressure 123 mm[Hg] Ellie Ingram Other [facility] Other 11-03-2022 14:00-0500 Body height 159.38 cm Susana Ellis Other [facility] Other 11-03-2022 14:00-0500 Body mass index (BMI) [Ratio] 46.74 kg/m2 Susana Arrietamond Other [facility] Other 11-03-2022 14:00-0500 Body temperature 97.8 [degF] Susana Arrietamond Other [facility] Other 11-03-2022 14:00-0500 Body weight 118.75 kg Susana Arrietamond Other [facility] Other 11-03-2022 14:00-0500 Diastolic blood pressure 72 mm[Hg] Susana Rhonda Other [facility] Other 11-03-2022 14:00-0500 Respiratory rate 8 /min Susana Rhonda Other [facility] Other 11-03-2022 14:00-0500 SaO2% (BldA) [Mass fraction] 98 % Susana Rhonda Other [facility] Other 11-03-2022 14:00-0500 Systolic blood pressure 122 mm[Hg] Susana Rhonda Other [facility] Other 10-30-2022 11:15-0500 Body height 159.38 cm Danya Missler Other [facility] Other 10-30-2022 11:15-0500 Body mass index (BMI) [Ratio] 46.76 kg/m2 Danya Missler Other [facility] Other 10-30-2022 11:15-0500 Body weight 118.8 kg Danya Missler Other [facility] Other 10-30-2022 11:15-0500 Diastolic blood pressure 70 mm[Hg] Danya Missler Other [facility] Other 10-30-2022 11:15-0500 Respiratory rate 18 /min Danya Missler Other [facility] Other 10-30-2022 11:15-0500 SaO2% (BldA) [Mass fraction] 99 % Danya Missler Other [facility] Other 10-30-2022 11:15-0500 Systolic blood pressure 124 mm[Hg] Danya Missler Other [facility] Other 10-29-2022 11:00-0500 Body height 159.38 cm Ellie Ingram Other [facility] Other 10-29-2022 11:00-0500 Body mass index (BMI) [Ratio] 46.46 kg/m2 Ellie Ingram Other [facility] Other 10-29-2022 11:00-0500 Body temperature 99.8 [degF] Ellie Ingram Other [facility] Other 10-29-2022 11:00-0500 Body weight 118.03 kg Ellie Ingram Other [facility] Other 10-29-2022 11:00-0500 Diastolic blood pressure 80 mm[Hg] Ellie Ingram Other [facility] Other 10-29-2022 11:00-0500 Respiratory rate 18 /min Ellie Ingram Other [facility] Other 10-29-2022 11:00-0500 SaO2% (BldA) [Mass fraction] 98 % Ellie Ingram Other [facility] Other 10-29-2022 11:00-0500 Systolic blood pressure 120 mm[Hg] Ellie Ingram Other [facility] Other 10-08-2022 20:24-0500 Diastolic blood pressure 63 mm[Hg] [facility] 10-08-2022 20:24-0500 Heart rate 96 /min [facility] 10-08-2022 20:24-0500 Respiratory rate 18 /min [facility] 10-08-2022 20:24-0500 SaO2% (BldA) [Mass fraction] 98 % [facility] 10-08-2022 20:24-0500 Systolic blood pressure 135 mm[Hg] [facility] 10-08-2022 16:01-0500 Body height 157.48 cm [facility] 10-08-2022 16:01-0500 Body temperature 98.1 [degF] [facility] 10-08-2022 16:01-0500 Body weight 116 kg [facility] 10-06-2022 12:15-0500 Body height 159.38 cm Serene Fitt Other [facility] Other 10-01-2022 11:00-0500 Body height 159.38 cm Ellie Ingram Other [facility] Other 10-01-2022 11:00-0500 Body mass index (BMI) [Ratio] 45.71 kg/m2 Ellie Ingram Other [facility] Other 10-01-2022 11:00-0500 Body temperature 98.3 [degF] Ellie Ingram Other [facility] Other 10-01-2022 11:00-0500 Body weight 116.12 kg Ellie Ingram Other [facility] Other 10-01-2022 11:00-0500 Respiratory rate 18 /min Ellie Ingram Other [facility] Other 10-01-2022 11:00-0500 SaO2% (BldA) [Mass fraction] 99 % Ellie Ingram Other [facility] Other 09-30-2022 08:30-0500 Body height 159.38 cm Danyaher Helmbyron Other [facility] Other 09-30-2022 08:30-0500 Body mass index (BMI) [Ratio] 45.72 kg/m2 Danya Missler Other [facility] Other 09-30-2022 08:30-0500 Body weight 116.17 kg Danya Missler Other [facility] Other 09-30-2022 08:30-0500 Diastolic blood pressure 81 mm[Hg] Danya Missler Other [facility] Other 09-30-2022 08:30-0500 Respiratory rate 18 /min Danya Missler Other [facility] Other 09-30-2022 08:30-0500 SaO2% (BldA) [Mass fraction] 98 % Danya Missler Other [facility] Other 09-30-2022 08:30-0500 Systolic blood pressure 123 mm[Hg] Danya Missler Other [facility] Other 09-20-2022 11:15-0500 Body height 162.56 cm Susana Arrietamond Other [facility] Other 09-20-2022 11:15-0500 Body mass index (BMI) [Ratio] 43.59 kg/m2 Susana Arrietamond Other [facility] Other 09-20-2022 11:15-0500 Body temperature 97.7 [degF] Susana Rhonda Other [facility] Other 09-20-2022 11:15-0500 Body weight 115.21 kg Susana Rhonda Other [facility] Other 09-20-2022 11:15-0500 Diastolic blood pressure 75 mm[Hg] Susana Rhonda Other [facility] Other 09-20-2022 11:15-0500 Respiratory rate 18 /min Susana Rhonda Other [facility] Other 09-20-2022 11:15-0500 SaO2% (BldA) [Mass fraction] 98 % Susana Ellis Other [facility] Other 09-20-2022 11:15-0500 Systolic blood pressure 118 mm[Hg] Susana Ellis Other [facility] Other 09-14-2022 18:00-0500 Body height 162.56 cm Ellie Binghamault Other [facility] Other 09-14-2022 18:00-0500 Body mass index (BMI) [Ratio] 43.59 kg/m2 Ellie Binghamault Other [facility] Other 09-14-2022 18:00-0500 Body temperature 97.1 [degF] Ellie Juan Jose Other [facility] Other 09-14-2022 18:00-0500 Body weight 115.21 kg Ellie Binghamault Other [facility] Other 09-14-2022 18:00-0500 Diastolic blood pressure 94 mm[Hg] Ellie Juan Jose Other [facility] Other 09-14-2022 18:00-0500 Respiratory rate 18 /min Ellie Binghamault Other [facility] Other 09-14-2022 18:00-0500 SaO2% (BldA) [Mass fraction] 100 % Ellie Juan Jose Other [facility] Other 09-14-2022 18:00-0500 Systolic blood pressure 157 mm[Hg] Ellie Juan Jose Other [facility] Other 09-10-2022 20:30-0500 Diastolic blood pressure 72 mm[Hg] [facility] 09-10-2022 20:30-0500 Heart rate 95 /min [facility] 09-10-2022 20:30-0500 Respiratory rate 18 /min [facility] 09-10-2022 20:30-0500 SaO2% (BldA) [Mass fraction] 99 % [facility] 09-10-2022 20:30-0500 Systolic blood pressure 156 mm[Hg] [facility] 09-10-2022 15:46-0500 Body height 165.1 cm [facility] 09-10-2022 15:46-0500 Body temperature 99 [degF] [facility] 09-10-2022 15:46-0500 Body weight 115.85 kg [facility] 09-10-2022 15:00-0500 Body height 162.56 cm Ellie Ingram Other [facility] [employer] Other 09-10-2022 15:00-0500 Body mass index (BMI) [Ratio] 43.94 kg/m2 Ellie Ingram Other [facility] [employer] Other 09-10-2022 15:00-0500 Body temperature 98.2 [degF] Ellie Ingram Other [facility] Other 09-10-2022 15:00-0500 Body weight 116.12 kg Ellie Ingram Other [facility] Other 09-10-2022 15:00-0500 SaO2% (BldA) [Mass fraction] 98 % Ellie Ingram Other [facility] Other 08-27-2022 15:00-0500 Body height 162.56 cm Ellie Ingram Other [facility] Other 08-27-2022 15:00-0500 Body mass index (BMI) [Ratio] 43.59 kg/m2 Ellie Ingram Other [facility] Other 08-27-2022 15:00-0500 Body temperature 97.8 [degF] Ellie Ingram Other [facility] Other 08-27-2022 15:00-0500 Body weight 115.21 kg Ellie Ingram Other [facility] Other 08-27-2022 15:00-0500 Diastolic blood pressure 64 mm[Hg] Ellie Ingram Other [facility] Other 08-27-2022 15:00-0500 Respiratory rate 18 /min Ellie Ingram Other [facility] Other 08-27-2022 15:00-0500 SaO2% (BldA) [Mass fraction] 99 % Ellie Ingram Other [facility] Other 08-27-2022 15:00-0500 Systolic blood pressure 107 mm[Hg] Ellie Ingram Other [facility] Other 07-30-2022 12:00-0500 Body height 162.56 cm Ellie Ingram Other [facility] Other 07-30-2022 12:00-0500 Body mass index (BMI) [Ratio] 43.25 kg/m2 Ellie Binghamault Other [facility] Other 07-30-2022 12:00-0500 Body temperature 97.6 [degF] Ellie Ingram Other [facility] Other 07-30-2022 12:00-0500 Body weight 114.31 kg Ellie Ingram Other [facility] Other 07-30-2022 12:00-0500 Diastolic blood pressure 72 mm[Hg] Ellie Binghamault Other [facility] Other 07-30-2022 12:00-0500 Respiratory rate 18 /min Ellie Binghamault Other [facility] Other 07-30-2022 12:00-0500 SaO2% (BldA) [Mass fraction] 100 % Ellie Binghamault Other [facility] Other 07-30-2022 12:00-0500 Systolic blood pressure 135 mm[Hg] Ellie Ingram Other [facility] Other 07-20-2022 12:05-0500 Body height 162.56 cm Ellie Binghamault Other [facility] Other 07-20-2022 12:05-0500 Body mass index (BMI) [Ratio] 42.56 kg/m2 Ellie Binghamault Other [facility] Other 07-20-2022 12:05-0500 Body temperature 97.8 [degF] Ellie Binghamault Other [facility] Other 07-20-2022 12:05-0500 Body weight 112.49 kg Ellie Binghamault Other [facility] Other 07-20-2022 12:05-0500 Diastolic blood pressure 71 mm[Hg] Ellie Ingram Other [facility] Other 07-20-2022 12:05-0500 Respiratory rate 18 /min Ellie Ingram Other [facility] Other 07-20-2022 12:05-0500 SaO2% (BldA) [Mass fraction] 99 % Ellie Ingram Other [facility] Other 07-20-2022 12:05-0500 Systolic blood pressure 137 mm[Hg] Ellie Ingram Other [facility] Other 07-02-2022 12:30-0400 Body height 162.56 cm Ellie Ingram Other [facility] Other 07-02-2022 12:30-0400 Body mass index (BMI) [Ratio] 42.56 kg/m2 Ellie Ingram Other [facility] Other 07-02-2022 12:30-0400 Body temperature 98 [degF] Ellie Ingram Other [facility] Other 07-02-2022 12:30-0400 Body weight 112.49 kg Ellie Ingram Other [facility] Other 07-02-2022 12:30-0400 Diastolic blood pressure 84 mm[Hg] Ellie Juan Jose Other [facility] Other 07-02-2022 12:30-0400 Respiratory rate 18 /min Ellie Ingram Other [facility] Other 07-02-2022 12:30-0400 SaO2% (BldA) [Mass fraction] 100 % Ellie Ingram Other [facility] Other 07-02-2022 12:30-0400 Systolic blood pressure 129 mm[Hg] Ellie Binghamault Other [facility] Other 06-29-2022 11:15-0400 Body height 162.56 cm Pop Blandon Other [facility] Other 06-29-2022 11:15-0400 Body mass index (BMI) [Ratio] 41.19 kg/m2 Pop Blandon Other [facility] Other 06-29-2022 11:15-0400 Body weight 108.86 kg Pop Yazminshady Other [facility] Other 06-25-2022 17:30-0400 Body height 162.56 cm Ellie Ingram Other [facility] Other 06-25-2022 17:30-0400 Body mass index (BMI) [Ratio] 41.19 kg/m2 Ellie Binghamault Other [facility] Other 06-25-2022 17:30-0400 Body temperature 97.7 [degF] Ellie Binghamault Other [facility] Other 06-25-2022 17:30-0400 Body weight 108.86 kg Ellie Binghamault Other [facility] Other 06-25-2022 17:30-0400 Diastolic blood pressure 88 mm[Hg] Ellie Ingram Other [facility] Other 06-25-2022 17:30-0400 Respiratory rate 18 /min Ellie Ingram Other [facility] Other 06-25-2022 17:30-0400 SaO2% (BldA) [Mass fraction] 99 % Ellie Ingram Other [facility] Other 06-25-2022 17:30-0400 Systolic blood pressure 135 mm[Hg] Ellie Ingram Other [facility] Other 05-25-2022 18:00-0400 Body height 162.56 cm Ellie Ingram Other [facility] Other 05-25-2022 18:00-0400 Body mass index (BMI) [Ratio] 42.84 kg/m2 Ellie Ingram Other [facility] Other 05-25-2022 18:00-0400 Body temperature 97.9 [degF] Ellie Ingram Other [facility] Other 05-25-2022 18:00-0400 Body weight 113.22 kg Ellie Ingram Other [facility] Other 05-25-2022 18:00-0400 Diastolic blood pressure 68 mm[Hg] Ellie Ingram Other [facility] Other 05-25-2022 18:00-0400 Respiratory rate 18 /min Ellie Binghamault Other [facility] Other 05-25-2022 18:00-0400 SaO2% (BldA) [Mass fraction] 98 % Ellie Ingram Other [facility] Other 05-25-2022 18:00-0400 Systolic blood pressure 120 mm[Hg] Ellie Ingram Other [facility] Other 05-21-2022 12:30-0400 Body height 162.56 cm Ellie Ingram Other [facility] Other 05-21-2022 12:30-0400 Body mass index (BMI) [Ratio] 43.29 kg/m2 Ellie Ingram Other [facility] Other 05-21-2022 12:30-0400 Body temperature 98 [degF] Ellie Ingram Other [facility] Other 05-21-2022 12:30-0400 Body weight 114.4 kg Ellie Ingram Other [facility] Other 05-21-2022 12:30-0400 Diastolic blood pressure 63 mm[Hg] Ellie Binghamault Other [facility] Other 05-21-2022 12:30-0400 Respiratory rate 18 /min Ellie Ingram Other [facility] Other 05-21-2022 12:30-0400 SaO2% (BldA) [Mass fraction] 100 % Ellie Binghamault Other [facility] Other 05-21-2022 12:30-0400 Systolic blood pressure 103 mm[Hg] Ellie Binghamault Other [facility] Other 04-27-2022 12:30-0400 Body height 162.56 cm Ellie Ingram Other [facility] Other 04-27-2022 12:30-0400 Body mass index (BMI) [Ratio] 43.59 kg/m2 Ellie Ingram Other [facility] Other 04-27-2022 12:30-0400 Body temperature 98.6 [degF] Ellie Ingram Other [facility] Other 04-27-2022 12:30-0400 Body weight 115.21 kg Ellie Ingram Other [facility] Other 04-27-2022 12:30-0400 Diastolic blood pressure 81 mm[Hg] Ellie Ingram Other [facility] Other 04-27-2022 12:30-0400 Respiratory rate 18 /min Ellie Ingram Other [facility] Other 04-27-2022 12:30-0400 SaO2% (BldA) [Mass fraction] 98 % Ellie Ingram Other [facility] Other 04-27-2022 12:30-0400 Systolic blood pressure 130 mm[Hg] Ellie Binghamault Other [facility] Other 04-06-2022 11:00-0400 Body height 162.56 cm Ellie Binghamault Other [facility] Other 04-06-2022 11:00-0400 Body mass index (BMI) [Ratio] 43.63 kg/m2 Ellie Ingram Other [facility] Other 04-06-2022 11:00-0400 Body temperature 98.5 [degF] Ellie Ingram Other [facility] Other 04-06-2022 11:00-0400 Body weight 115.31 kg Ellie Ingram Other [facility] Other 04-06-2022 11:00-0400 Diastolic blood pressure 66 mm[Hg] Ellie Ingram Other [facility] Other 04-06-2022 11:00-0400 Respiratory rate 18 /min Ellie Ingram Other [facility] Other 04-06-2022 11:00-0400 SaO2% (BldA) [Mass fraction] 98 % Ellie Ingram Other [facility] Other 04-06-2022 11:00-0400 Systolic blood pressure 131 mm[Hg] Ellie Ingram Other [facility] Other 03-03-2022 12:05-0400 Body height 162.56 cm Ellie Ingram Other [facility] Other 03-03-2022 12:05-0400 Body mass index (BMI) [Ratio] 41.19 kg/m2 Ellie Ingram Other [facility] Other 03-03-2022 12:05-0400 Body temperature 98 [degF] Ellie Ingram Other [employer] Other 03-03-2022 12:05-0400 Body weight 108.86 kg Ellie Ingram Other [employer] Other 03-03-2022 12:05-0400 Diastolic blood pressure 72 mm[Hg] Ellie Ingram Other [employer] Other 03-03-2022 12:05-0400 Respiratory rate 18 /min Ellie Ingram Other [employer] Other 03-03-2022 12:05-0400 SaO2% (BldA) [Mass fraction] 100 % Ellie Ingram Other [employer] Other 03-03-2022 12:05-0400 Systolic blood pressure 116 mm[Hg] Ellie Ingram Other [employer] Other 11-13-2021 16:45-0400 Body height 162.56 cm Pop Blandon Other [employer] Other 11-13-2021 16:45-0400 Body mass index (BMI) [Ratio] 42.91 kg/m2 Pop Blandon Other [employer] Other 11-13-2021 16:45-0400 Body weight 113.4 kg Pop Blandon Other [employer] Other 11-06-2021 14:20-0500 Body height 162.56 cm Ellie Ingram Other [employer] Other 11-06-2021 14:20-0500 Body mass index (BMI) [Ratio] 43.08 kg/m2 Ellie Binghamault Other [employer] Other 11-06-2021 14:20-0500 Body temperature 97.7 [degF] Ellie Ingram Other [employer] Other 11-06-2021 14:20-0500 Body weight 113.85 kg Ellie Ingram Other [employer] Other 11-06-2021 14:20-0500 Diastolic blood pressure 70 mm[Hg] Ellie Ingram Other [employer] Other 11-06-2021 14:20-0500 Respiratory rate 18 /min Ellie Ingram Other [employer] Other 11-06-2021 14:20-0500 SaO2% (BldA) [Mass fraction] 99 % Ellie Ingram Other [employer] Other 11-06-2021 14:20-0500 Systolic blood pressure 143 mm[Hg] Ellie Ingram Other [employer] Other 09-29-2021 09:15-0500 Body height 162.56 cm Pop Blandon Other [employer] Other 08-11-2021 16:30-0500 Body height 162.56 cm Edie Singh Other [employer] Other 08-11-2021 16:30-0500 Body mass index (BMI) [Ratio] 43.08 kg/m2 Edie Singh Other [employer] Other 08-11-2021 16:30-0500 Body weight 113.85 kg Edie Singh Other [employer] Other 08-11-2021 16:30-0500 Diastolic blood pressure 88 mm[Hg] Edie Singh Other [employer] Other 08-11-2021 16:30-0500 Respiratory rate 18 /min Edie Artemio Other [employer] Other 08-11-2021 16:30-0500 SaO2% (BldA) [Mass fraction] 99 % Edie Artemio Other [employer] Other 08-11-2021 16:30-0500 Systolic blood pressure 130 mm[Hg] Edie Singh Other [employer] Other 06-12-2021 15:45-0400 Body height 162.56 cm Edie Singh Other [employer] Other 06-12-2021 15:45-0400 Body mass index (BMI) [Ratio] 42.84 kg/m2 Edie Singh Other [employer] Other 06-12-2021 15:45-0400 Body temperature 98.1 [degF] Edie Singh Other [employer] Other 06-12-2021 15:45-0400 Body weight 113.22 kg Edie Singh Other [employer] Other 06-12-2021 15:45-0400 Diastolic blood pressure 82 mm[Hg] Edie Singh Other [employer] Other 06-12-2021 15:45-0400 Respiratory rate 18 /min Edie Singh Other [employer] Other 06-12-2021 15:45-0400 SaO2% (BldA) [Mass fraction] 99 % Edie Singh Other [employer] Other 06-12-2021 15:45-0400 Systolic blood pressure 132 mm[Hg] Edie Singh Other [employer] Other Encounters Encounter Date Encounter Type Care Provider Facility Start: 05-22-2025 End: 05-22-2025 Office outpatient visit 25 minutes Anamika Celestin TEST TUBE MAKER Work Phone: [facility] Comment on above: Intractable migraine with aura with status migrainosus (Primary Dx); Elevated LDL cholesterol level Start: 05-22-2025 End: 05-22-2025 ambulatory ANAMIKA CELESTIN Not Available Start: 05-08-2025 End: 05-08-2025 Bamboo flowsheet Anamika Celestin TEST TUBE MAKER Work Phone: [facility] Start: 05-08-2025 End: 05-08-2025 Bamboo flowsheet Anamika Celestin TEST TUBE MAKER Work Phone: [facility] Start: 05-08-2025 End: 05-08-2025 Office outpatient new 30 minutes Anamika Celestin TEST TUBE MAKER Work Phone: [facility] Comment on above: Primary insomnia (Pr imary Dx); Lipid screening; Primary hypertension ; Acquired hypothyroidism ; Other depression ; Stage 1 chronic kidney disease; Primary osteoarthritis involving multiple joints; Weight gain; Pain; Pain in other joint; Acute non-recurrent frontal sinusitis; Morbid (severe) obesity due to excess calories ([facility]); Obesity, class 3; Body mass index (BMI) 45.0-49.9, adult ([facility]); Major depressive disorder, single episode, in full remission Start: 05-08-2025 End: 05-08-2025 ambulatory ANAMIKA CELESTIN Not Available Start: 05-02-2025 End: 05-02-2025 ambulatory ALEXIS Estefania GERRYHER Not Available Start: 05-02-2025 End: 05-02-2025 Office outpatient visit 15 minutes Alexis Estefania Gerryher DPM Work Phone: [facility] Comment on above: Plantar wart (Primar y Dx) Start: 05-02-2025 End: 05-02-2025 Bamboo flowsheet Alexis S Rusher DPM Work Phone: [facility] Start: 05-02-2025 End: 05-02-2025 Bamboo flowsheet Alexis S Rusher DPM Work Phone: [facility] Start: 04-04-2025 End: 04-04-2025 Telephone encounter Alexis Estefania Gerryher DPM Work Phone: [facility] Start: 03-28-2025 End: 03-28-2025 ambulatory ALEXIS Estefania CODY Not Available Start: 03-28-2025 End: 03-28-2025 Office outpatient new 45 minutes Alexis S Rusher DPM Work Phone: [facility] Comment on above: Onychomycosis (Prima ry Dx); Right foot pain; Plantar wart; Left foot pain Start: 03-28-2025 End: 03-28-2025 Bamboo flowsheet Alexis S Rusher DPM Work Phone: [facility] Start: 03-28-2025 End: 03-28-2025 Bamboo flowsheet Alexis S Rusher DPM Work Phone: [facility] Start: 01-16-2025 End: 01-16-2025 ambulatory YESENIA YUSUF Facility:[facility] Start: 01-16-2025 End: 01-16-2025 Patient encounter procedure YESENIA YUSUF [facility] Start: 11-30-2024 End: 11-30-2024 Office outpatient visit 15 minutes Martin Larios MD Work Phone: [facility] Comment on above: Postural dizziness w ith near syncope Start: 11-30-2024 End: 11-30-2024 ambulatory MARTIN Abdi [facility] Start: 11-16-2024 End: 11-16-2024 Subsequent hospital visit by physician Teo Elizalde [facility] Comment on above: Postural dizziness w ith near syncope Start: 11-16-2024 End: 11-16-2024 ambulatory MARTIN Abdi [facility] Start: 11-14-2024 End: 11-14-2024 ambulatory YESENIA NKANSAH-AMANKRA Facility:[facility] Start: 11-02-2024 End: 11-02-2024 ambulatory YESENIA JOHNSAWYERAH-AMANKRA Facility:[facility] Start: 10-19-2024 End: 10-19-2024 Admission to same day surgery center YESENIA JOHNBOOGIE [facility] Start: 10-19-2024 End: 10-19-2024 ambulatory BALLISTICS EXPERT ELLIE INGRAM Facility:[facility] Start: 10-12-2024 End: 10-12-2024 ambulatory ELLIEDAVID INGRAM Facility:[facility] Start: 10-12-2024 End: 10-12-2024 Patient encounter procedure YESENIA JOHNBOOGIE [facility] Start: 10-09-2024 End: 10-09-2024 ambulatory ELLIE JUAN JOSE Facility:[facility] Start: 10-09-2024 End: 10-09-2024 Patient encounter procedure YESENIA NKSAWYERAH-AMANKRA [facility] Start: 10-06-2024 ambulatory ELLIE INGRAM Facil ity:[facility] Start: 10-04-2024 End: 10-24-2024 Pre-admission assessment Obdulio ArringtonTracee Matamoros [facility] Start: 08-09-2024 End: 08-09-2024 Office outpatient visit 25 minutes Dario Palacios DO Work Phone: [employer] [facility] Comment on above: Lumbar radiculopathy (Primary Dx); Polypharmacy Start: 08-09-2024 End: 08-09-2024 ambulatory DARIO PALACIOS Not Available Start: 08-09-2024 End: 08-09-2024 Bamboo flowsheet Dario Palacios DO Work Phone: [employer] [facility] Start: 08-09-2024 End: 08-09-2024 Bamboo flowsheet Dario Palacios DO Work Phone: [employer] [facility] Start: 07-31-2024 End: 07-31-2024 Office outpatient new 45 minutes Martin Larios MD Work Phone: [facility] Comment on above: Postural dizziness w ith near syncope (Primary Dx); Abnormal EKG Start: 07-31-2024 End: 07-31-2024 [facility] Start: 06-22-2024 End: 06-22-2024 ambulatory ELLIE INGRAM Facility:[facility] Start: 05-03-2024 End: 05-03-2024 ambulatory BALLISTICS EXPERT ELLIE INGRAM Facility:[facility] Start: 03-15-2024 End: 03-15-2024 ambulatory NON STAFF [facility] Work Phone: Start: 03-15-2024 End: 03-15-2024 Patient encounter procedure MD Dario Olmedo Work Phone: [facility] Work Phone: Start: 02-15-2024 End: 02-15-2024 ambulatory ELLIE INGRAM [facility] Start: 02-15-2024 End: 02-15-2024 Subsequent hospital visit by physician Patricia Walker MD Work Phone: [facility] Comment on above: Lumbosacral spondylo sis without myelopathy (Primary Dx) Start: 02-15-2024 End: 02-15-2024 ambulatory PATRICIA WALKER [facility] Start: 02-01-2024 End: 02-01-2024 ambulatory ELLIE INGRAM [facility] Start: 01-20-2024 End: 01-20-2024 ambulatory [facility] Facility:[facility] Start: 01-19-2024 End: 01-19-2024 ambulatory [facility] Start: 01-19-2024 Encounter for gynecological examination (general) (routine) without abnormal findings [facility] Start: 01-19-2024 End: 01-19-2024 Patient encounter procedure [facility] Remote Sensing Technician [facility] Start: 01-19-2024 End: 01-19-2024 Periodic preventive med est patient 40-64yrs [facility] Ob Remote Sensing Technician [facility] [place] Comment on above: Well woman exam with routine gynecological exam (Primary Dx); Encounter for screening mammogram for malignant neoplasm of breast; Standardized adult depression screening tool completed; Skin lesion of right leg Start: 01-02-2024 End: 01-03-2024 Refill Naima Bates APRN-BALLISTICS EXPERT Work Phone: [facility] [place] Comment on above: Encounter for initia l prescription of contraceptive pills Start: 12-29-2023 Non-patient / Non-visit MD Jesús Olmedo Work Phone: [facility] Work Phone: Start: 12-28-2023 End: 12-28-2023 ambulatory Dario Olmedo Facility:[facility] Start: 12-28-2023 End: 12-28-2023 ambulatory NON STAFF [facility] Work Phone: Start: 12-28-2023 End: 12-28-2023 Patient encounter procedure MD Dario Olmedo Work Phone: [facility] Work Phone: Start: 12-23-2023 ambulatory PATRICIA WALKER [facility] Start: 12-15-2023 End: 12-15-2023 Refill Naima Domingo Paulo STAVE JOINTER-BALLISTICS EXPERT Work Phone: [facility] [place] Comment on above: Encounter for initia l prescription of contraceptive pills Start: 11-26-2023 End: 11-26-2023 ambulatory [facility] Work Phone: Start: 11-26-2023 End: 11-26-2023 Patient encounter procedure [facility] Work Phone: Start: 11-23-2023 End: 11-23-2023 ambulatory ELLIE INGRAM Facility:[facility] Start: 11-09-2023 End: 11-09-2023 ambulatory ELLIE INGRAM Facility:[facility] Start: 10-25-2023 End: 10-25-2023 ambulatory ELLIE INGRAM Facility:[facility] Start: 10-21-2023 End: 10-21-2023 ambulatory ELLIE INGRAM Facility:[facility] Start: 10-13-2023 Non-patient / Non-visit MD Jesús Olmedo Work Phone: [facility] Work Phone: Start: 10-12-2023 End: 10-12-2023 ambulatory ELLIE INGRAM Facility:[facility] Start: 06-18-2023 End: 06-18-2023 ambulatory Dario Palacios Facility:[facility] Start: 06-18-2023 End: 06-18-2023 ambulatory LACQUERER-C Ellie [facility] Work Phone: Start: 06-18-2023 End: 06-18-2023 Patient encounter procedure LACQUERER-C Ellie [facility] Work Phone: Start: 04-16-2023 End: 04-16-2023 ambulatory Kera Mccall Other [facility] [employer] Other Start: 04-16-2023 Office outpatient vi sit 25 minutes Kera Mccall [facility] Start: 02-24-2023 End: 02-24-2023 ambulatory Dario Olmedo Facility:[facility] Start: 02-24-2023 End: 02-24-2023 ambulatory LACQUERER-C Ellie Ingram Work Phone: [facility] Work Phone: Start: 02-24-2023 End: 02-24-2023 Patient encounter procedure LACQUERER-C Ellie Juan Jose Work Phone: [facility] Work Phone: Start: 02-02-2023 Follow-up encounter [facility] Start: 02-02-2023 Telephone encounter Clive [facility] Start: 02-02-2023 End: 02-03-2023 ambulatory Ellie Ingram [facility] [employer] Other Start: 02-02-2023 Registered Recurring LACQUERER-C Librado bowiekathleen Juan Jose Work Phone: [facility] Work Phone: Start: 12-23-2022 Office outpatient ne w 30 minutes Dario Olmedo [facility] Start: 12-23-2022 End: 12-23-2022 ambulatory LACQUERER-C Ellie Juan Jose Work Phone: [facility] Work Phone: Start: 12-23-2022 End: 12-23-2022 Patient encounter procedure LACQUERER-C Ellie Juan Jose Work Phone: [facility] Work Phone: Start: 12-16-2022 End: 12-16-2022 ambulatory Serene Fitt Other [employer] Other Start: 12-16-2022 IBT for Obesity subQ 15 min (Max charge 2 units) Serene Bustos [facility] Start: 12-16-2022 Registered Recurring LACQUERER-C Librado Ingram Work Phone: [facility] Work Phone: Start: 12-14-2022 [facility] Start: 12-14-2022 End: 12-14-2022 ambulatory Danya Craty Other [employer] Other Start: 12-14-2022 Telephone encounter Danya [facility] Start: 12-01-2022 ([facility] WMNI) WMN Init ial Provider Serene Bustos [facility] Start: 12-01-2022 End: 12-01-2022 ambulatory Serene Bustos Other [employer] Other Start: 11-07-2022 Office outpatient vi sit 15 minutes Ellie Ingram [facility] Start: 11-07-2022 End: 11-07-2022 ambulatory NON STAFF [facility] Work Phone: Start: 11-07-2022 End: 11-07-2022 Patient encounter procedure [facility] Work Phone: Start: 11-03-2022 End: 11-03-2022 Patient encounter procedure [facility] Work Phone: Start: 11-03-2022 End: 11-03-2022 ambulatory NON STAFF [facility] Work Phone: Start: 11-03-2022 Office outpatient vi sit 15 minutes Susana Ellis [facility] Start: 10-30-2022 ([facility]NF/U) Weight Management f/u Danya Carty [facility] Start: 10-30-2022 End: 10-30-2022 ambulatory Danya Carty Other [employer] Other Start: 10-30-2022 Registered Recurring [facility] Work Phone: Start: 10-29-2022 End: 10-29-2022 ambulatory Ellie Juan Jose Other [employer] Other Start: 10-29-2022 Office outpatient vi sit 15 minutes Ellie Ingram [facility] Start: 10-08-2022 End: 10-08-2022 Emergency department patient visit [facility] Work Phone: Start: 10-06-2022 End: 10-06-2022 ambulatory Serene Fitt Other [employer] Other Start: 10-06-2022 IBT FOR OBESITY GROU P 2-10 30M [facility] Start: 10-06-2022 Registered Recurring [facility] Work Phone: Start: 10-01-2022 Office outpatient vi sit 15 minutes Ellie Ingram [facility] Start: 10-01-2022 End: 10-01-2022 ambulatory NON STAFF [facility] Work Phone: Start: 10-01-2022 End: 10-01-2022 Patient encounter procedure [facility] Work Phone: Start: 09-30-2022 End: 09-30-2022 ambulatory Danya Carty Other [employer] Other Start: 09-30-2022 Nutrition therapy Danya Carty [facility] Start: 09-30-2022 Registered Recurring [facility] Work Phone: Start: 09-25-2022 End: 09-25-2022 ambulatory Ellie Binghamault Other [employer] Other Start: 09-25-2022 Telephone encounter Ellie cisneros [facility] Start: 09-23-2022 End: 09-23-2022 ambulatory Ellie Juan Jose Other [employer] Other Start: 09-23-2022 Telephone encounter Ellie cisneros [facility] Start: 09-21-2022 End: 09-22-2022 ambulatory ELLIE JUAN JOSE Facility: Start: 09-20-2022 End: 09-20-2022 ambulatory Susana Ellis Other [employer] Other Start: 09-20-2022 Office outpatient vi sit 15 minutes Susana Rhonda [facility] Start: 09-14-2022 End: 09-14-2022 ambulatory Ellie Binghamault Other [employer] Other Start: 09-14-2022 Office outpatient vi sit 15 minutes Ellie Juan Jose [facility] Start: 09-10-2022 End: 09-10-2022 Emergency department patient visit [facility] Work Phone: Start: 09-10-2022 End: 09-10-2022 ambulatory Ellie Juan Jose Other [employer] Other Start: 09-10-2022 Patient encounter procedure Elliedavid Ingram [facility] Start: 09-07-2022 End: 09-07-2022 ambulatory Ellie Juan Jose Other [employer] Other Start: 09-07-2022 Telephone encounter Ellie Breaul t [facility] Start: 08-27-2022 End: 08-27-2022 ambulatory Ellie Juan Jose Other [employer] Other Start: 08-27-2022 Office outpatient vi sit 15 minutes Ellie Juan Jose [facility] Start: 08-17-2022 End: 08-17-2022 ambulatory Ellie Juan Jose Other [employer] Other Start: 08-17-2022 Telephone encounter Ellie Breaul t [facility] Start: 07-30-2022 End: 07-30-2022 ambulatory Ellie Juan Jose Other [employer] Other Start: 07-30-2022 Office outpatient vi sit 15 minutes Ellie Juan Jose [facility] Start: 07-20-2022 End: 07-20-2022 ambulatory Ellie Juan Jose Other [employer] Other Start: 07-20-2022 Office outpatient vi sit 15 minutes Ellie Juan Jose [facility] Start: 07-10-2022 End: 07-10-2022 ambulatory Ellie Juan Jose Other [employer] Other Start: 07-10-2022 Telephone encounter Ellie Breaul t [facility] Start: 07-02-2022 End: 07-02-2022 ambulatory Ellie Juan Jose Other [employer] Other Start: 07-02-2022 Office outpatient vi sit 15 minutes Ellie Juan Jose [facility] Start: 06-30-2022 End: 06-30-2022 ambulatory Ellie Juan Jose Other [employer] Other Start: 06-30-2022 Telephone encounter Elliedavid Gerberl t [facility] Start: 06-29-2022 End: 06-29-2022 ambulatory Pop Blandon Other [employer] Other Start: 06-29-2022 Office outpatient vi sit 15 minutes Pop Blandon [facility] [place] Start: 06-25-2022 End: 06-25-2022 ambulatory Ellie Juan Jose Other [employer] Other Start: 06-25-2022 Office outpatient vi sit 15 minutes Ellie Juan Jose [facility] Start: 06-22-2022 (Procedure) Kat Blandon [facility] Start: 06-22-2022 End: 06-22-2022 ambulatory Pop Blandon Other [employer] Other Start: 06-11-2022 End: 06-11-2022 ambulatory Ellie Juan Jose Other [employer] Other Start: 06-11-2022 Telephone encounter Elliedavid Gerberl t [facility] Start: 06-05-2022 End: 06-06-2022 ambulatory ELLIE JUAN JOSE Facility: Start: 06-01-2022 (Procedure) Kat Blandon [facility] Start: 06-01-2022 End: 06-01-2022 ambulatory Pop Blandon Other [employer] Other Start: 05-25-2022 End: 05-25-2022 ambulatory Ellie Juan Jose Other [employer] Other Start: 05-25-2022 Office outpatient vi sit 25 minutes Ellie Juan Jose [facility] Start: 05-21-2022 End: 05-21-2022 ambulatory Ellie Juan Jose Other [employer] Other Start: 05-21-2022 Office outpatient vi sit 15 minutes Ellie Juan Jose [facility] Start: 05-08-2022 End: 05-08-2022 ambulatory Ellienancy Ingram Other [employer] Other Start: 05-08-2022 Telephone encounter Ellie cisneros [facility] Start: 04-27-2022 End: 04-27-2022 ambulatory Elliedavid Ingram Other [employer] Other Start: 04-27-2022 Office outpatient vi sit 15 minutes Ellie Juan Jose [facility] Start: 04-22-2022 End: 04-22-2022 ambulatory Pop Blandon Other [employer] Other Start: 04-22-2022 Office outpatient vi sit 25 minutes Pop Blandon [facility] Start: 04-16-2022 End: 04-16-2022 ambulatory Pop Blandon Other [employer] Other Start: 04-16-2022 Telephone encounter Pop Blandon [facility] Start: 04-13-2022 (Procedure) Short Pop Blandon [facility] Start: 04-13-2022 End: 04-13-2022 ambulatory Pop Blandon Other [employer] Other Start: 04-06-2022 Office outpatient vi sit 15 minutes Ellienancy Ingram [facility] Start: 04-06-2022 End: 04-07-2022 ambulatory ELLIEDAVID INGRAM [facility] Other Start: 03-03-2022 End: 03-03-2022 ambulatory Ellie Juan Jose Other [employer] Other Start: 03-03-2022 Office outpatient vi sit 15 minutes Ellie Juan Jose [facility] Start: 01-28-2022 End: 01-28-2022 ambulatory Pop Arceer Other [facility] Other Start: 01-28-2022 Telephone encounter oPp Blandon [facility] [place] Start: 01-21-2022 End: 01-21-2022 ambulatory Pop Arceer Other [facility] Other Start: 01-21-2022 Telephone encounter Pop Blandon [facility] Start: 01-15-2022 End: 01-15-2022 ambulatory Pop Arceer Other [facility] Other Start: 01-15-2022 Office outpatient vi sit 25 minutes Pop Felter [facility] Start: 12-11-2021 End: 12-11-2021 ambulatory Pop Yazminer Other [facility] Other Start: 12-11-2021 Office outpatient vi sit 25 minutes Pop Yazminer [facility] [place] Start: 12-03-2021 (Procedure) Short Pop Blandon [facility] Start: 12-03-2021 End: 12-03-2021 ambulatory Pop Yazminer Other [facility] Other Start: 11-14-2021 End: 11-14-2021 ambulatory Pop Arceer Other [facility] Other Start: 11-14-2021 Telephone encounter Pop FISH [facility] Start: 11-13-2021 End: 11-13-2021 ambulatory Pop Arceer Other [facility] Other Start: 11-13-2021 Office outpatient vi sit 25 minutes Pop Yazminer [facility] Start: 11-06-2021 End: 11-06-2021 ambulatory Ellie Ingram Other [facility] Other Start: 11-06-2021 Office outpatient vi sit 15 minutes Ellie Ingram [facility] Start: 11-06-2021 Telephone encounter Edie [facility] Start: 10-29-2021 End: 10-29-2021 ambulatory Pop Yazminshady Other [facility] Other Start: 10-29-2021 Telephone encounter Pop Blandon [facility] Start: 09-29-2021 End: 09-29-2021 ambulatory Pop Blandon Other [facility] Other Start: 09-29-2021 Office outpatient vi sit 25 minutes Pop Blandon [facility] [place] Start: 09-25-2021 End: 09-25-2021 ambulatory Edie Singh Other [facility] Other Start: 09-25-2021 Telephone encounter Edie Lewis [facility] Start: 08-19-2021 End: 08-19-2021 ambulatory Edie Singh Other [facility] Other Start: 08-19-2021 Telephone encounter [facility]ie [facility] Start: 08-11-2021 End: 08-11-2021 ambulatory Edie Singh Other [facility] Other Start: 08-11-2021 Office outpatient vi sit 15 minutes Edie Singh [facility] Start: 06-12-2021 Office outpatient vi sit 15 minutes Edie Singh [facility] [place] Start: 08-10-2020 End: 08-13-2020 Patient encounter procedure EDIE SINGH [facility] Start: 08-10-2020 End: 08-12-2020 Subsequent hospital visit by physician [facility] Comment on above: Left elbow pain Procedures Date Procedure Procedure Detail Performing Clinician Start: 05-08-2025 Hemoglobin glycosyla aleksey a1c Anamika Celestin NP Work Phone: Start: 10-19-2024 Cystoscopy YESENIA HYMAN Start: 07-31-2024 Ecg routine ecg w/le ast 12 lds w/i&r Martin Larios MD Work Phone: Start: 01-19-2024 Adult depression screening assessment [facility] Remote Sensing Technician Start: 06-18-2023 MR lumbar spine wo con LACQUERER-C Ellie Binghamault Start: 01-01-2023 End: 01-01-2023 Mammography Naima Bates APRN-BALLISTICS EXPERT Work Phone: Start: 11-07-2022 Plain X-ray of right hip Start: 11-03-2022 X-ray of right knee Start: 10-08-2022 Plain chest X-ray Start: 10-01-2022 Plain chest X-ray Start: 09-10-2022 Computed tomography of abdomen and pelvis with contrast Start: 11-26-2020 Microscopic observat ion [Identifier] in Cervix by Cyto stain Naima Bates STAVE JOINTER-BALLISTICS EXPERT Work Phone: Start: 08-10-2020 Mri any jt upper extremity w/o contrast john SINGH Start: 08-10-2020 Mri any jt upper extremity w/o contrast john Singh Work Phone: Spinal nerve structu re (body structure) YESENIA LOPEZSAWYERMAXX Plan of Treatment Date Care Activity Detail Author Start: 01-21-2026 ambulatory Ambulatory Facility[facility] Start: 11-06-2025 End: 11-06-2025 Patient encounter procedure 11/06/2025 10:00 AM EDT Office Visit [facility] [place] [facility] [address] [place] [phone] Anamika Celestin NP [address] [place] [address] [facility] Start: 08-01-2025 End: 08-01-2025 Patient encounter procedure 08/01/2025 3:00 PM EST [facility] [address] [place] [phone] Alexis rGace, DPM [address] [place], [place] [phone] [facility] Start: 05-31-2025 End: 05-31-2025 Patient encounter procedure 05/31/2025 1:15 PM EDT Office Visit [facility] Office Building [address] [facility] [address] [place] [address] [place] [address], [facility] [address] [place] [address] [facility] Office [facility] Start: 05-08-2025 End: 05-08-2026 CBC panel - Blood by Automated count CBC Lab Routine Primary hypertension Expected: 05/08/2025 (Approximate), Expires: 05/08/2026 [facility] Work Phone: Comment on above: Expected: 05/08/2025 (Approximate), Expires: 05/08/2026 Start: 05-08-2025 End: 05-08-2026 Comprehensive metabolic 2000 panel - Serum or Plasma Comprehensive metabolic panel Lab Routine Primary hypertension Expected: 05/08/2025 (Approximate), Expires: 05/08/2026 [facility] Comment on above: Expected: 05/08/2025 (Approximate), Expires: 05/08/2026 Start: 05-08-2025 End: 05-08-2026 Cortisol Cortisol Lab Routine Weight gain Pain Expected: 05/08/2025 (Approximate), Expires: 05/08/2026 [facility] Comment on above: Expected: 05/08/2025 (Approximate), Expires: 05/08/2026 Start: 05-08-2025 End: 05-08-2026 Lipid 1996 panel - Serum or Plasma Lipid panel Lab Routine Lipid screening Expected: 05/08/2025 (Approximate), Expires: 05/08/2026 [facility] Comment on above: Expected: 05/08/2025 (Approximate), Expires: 05/08/2026 Start: 05-08-2025 End: 05-08-2026 RHEUMATOID ARTHRITIS DIAGNOSTIC PANEL 3 RHEUMATOID ARTHRITIS DIAGNOSTIC PANEL 3 Lab Routine Primary osteoarthritis involving multiple joints Pain Pain in other joint Expected: 05/08/2025 (Approximate), Expires: 05/08/2026 [facility] Comment on above: Expected: 05/08/2025 (Approximate), Expires: 05/08/2026 Start: 05-08-2025 End: 05-08-2026 Thyrotropin [Units/volume] in Serum or Plasma TSH Lab Routine Acquired hypothyroidism Expected: 05/08/2025 (Approximate), Expires: 05/08/2026 [facility] Comment on above: Expected: 05/08/2025 (Approximate), Expires: 05/08/2026 Start: 05-08-2025 End: 05-08-2025 Patient encounter [facility] Comment on above: Arrived Start: 05-02-2025 End: 05-02-2025 Patient encounter procedure 05/02/2025 3:00 PM EDT Office Visit [facility] [address] [place] [phone] Alexis Grace, DPM [address] [place], [place] [phone] [facility] Start: 04-30-2025 Influenza vaccination [facility] Start: 04-04-2025 End: 04-04-2026 Alanine aminotransferase [Enzymatic activity/volume] in Serum or Plasma ALT Lab Routine Onychomycosis Expected: 04/04/2025 (Approximate), Expires: 04/04/2026 [facility] Work Phone: Comment on above: Expected: 04/04/2025 (Approximate), Expires: 04/04/2026 Start: 04-04-2025 End: 04-04-2026 Aspartate aminotransferase [Enzymatic activity/volume] in Serum or Plasma AST Lab Routine Onychomycosis Expected: 04/04/2025 (Approximate), Expires: 04/04/2026 [facility] Comment on above: Expected: 04/04/2025 (Approximate), Expires: 04/04/2026 Start: 01-18-2025 Adult BMI Screening Adult BMI Screen ing [facility] Start: 01-18-2025 Depression Screening Depression Scre ening [facility] Start: 01-18-2025 Medicare Annual Well ness (AWV) Medicare Annual Wellness (AWV) [facility] Start: 01-18-2025 Tobacco Screening Tobacco Screening [facility] Start: 01-01-2025 Screening for malign ant neoplasm of breast Breast cancer screen [facility] Start: 11-30-2024 End: 11-30-2024 Patient encounter procedure 11/30/2024 2:00 PM EDT Office Visit [facility] Office Building [address] [place] [phone] Martin Larios MD [address] [place] [address] [address], [address] [place] [address] [facility] Start: 10-16-2024 End: 10-16-2024 Patient encounter procedure 10/16/2024 10:00 AM EST Office Visit [address] [place] [address] Martin Larios MD [address] [place] [address] [address], [address] [place] [address] [facility] Start: 10-05-2024 End: 10-05-2024 Patient encounter procedure 10/05/2024 8:00 AM EST Appointment [facility] [address] [phone] [facility] Start: 08-09-2024 End: 08-09-2024 Patient encounter procedure 08/09/2024 3:30 PM EST Office Visit [facility] [address] [place] [phone] Dario Palacios, [address] [place] [phone] Arrived [facility] Comment on above: Arrived Start: 07-31-2024 End: 07-31-2026 Tilt table study [facility] Routine Postural dizziness with near syncope Expected: 07/31/2024 (Approximate), Expires: 07/31/2026 [facility] Service Area Work Phone: Comment on above: Expected: 07/31/2024 (Approximate), Expires: 07/31/2026 Start: 04-30-2024 Influenza vaccination [facility] Start: 03-30-2024 Influenza vaccination Flu vacc ine (Season Ended) [facility] Start: 01-19-2024 End: 01-18-2025 DBT Breast - bilateral screening Mammography screening bilateral with CAD Imaging Routine Encounter for screening mammogram for malignant neoplasm of breast Expected: 01/19/2024, Expires: 01/18/2025 [facility] Work Phone: Comment on above: Expected: 01/19/2024 , Expires: 01/18/2025 Start: 01-19-2024 End: 01-19-2024 Patient encounter procedure 01/19/2024 10:00 AM EDT Office Visit [facility] [place] [address] [place] [address] [facility] [place] Start: 01-02-2024 Screening for malign ant neoplasm of breast Mammogram [facility] Start: 12-16-2023 Adult BMI Follow Up Plan Adult BMI Follow Up Plan [facility] Start: 12-16-2023 Adult BMI Screening Adult BMI Screen ing [facility] Start: 12-16-2023 Tobacco Screening Tobacco Screening [facility] Start: 11-27-2023 Screening for malign ant neoplasm of cervix Pap Smear [facility] Start: 04-30-2023 COVID-19 Vaccine ( season) COVID-19 Vaccine ( season) [facility] Start: 11-11-2021 Administration of varicella zoster vaccine Zoster (Shingles) Vaccine (1 of 2) [facility] Start: 11-11-2021 Shingles vaccine (1 of 2) Jones gles vaccine (1 of 2) [facility] Start: 11-11-2021 Zoster Vaccines (1 of 2) Zoste r Vaccines (1 of 2) [place] Start: 04-30-2020 Influenza vaccination Flu vaccine (# 1) [facility] [place], [place] Start: 11-11-2016 Screening for malign ant neoplasm of colon [facility] Start: 2011 Lipid panel [facility] Start: 11-11-2006 Diabetes screen Diabetes screen [facility] Start: 11-11-2001 Screening for malign ant neoplasm of cervix [facility] Start: 11-11-1993 DTaP/Tdap/Td Vaccine s (1 - Tdap) DTaP/Tdap/Td Vaccines (1 - Tdap) [place] Start: 11-11-1992 Screening for malign ant neoplasm of cervix [facility] Start: 11-11-1990 DTaP,Tdap and Td Vac cines (1 - Tdap) DTaP,Tdap and Td Vaccines (1 - Tdap) [facility] Start: 11-11-1990 DTaP/Tdap/Td vaccine (1 - Tdap) DTaP/Tdap/Td vaccine (1 - Tdap) [facility] Start: 11-11-1990 Hepatitis B Vaccines (1 of 3 - 19+ 3-dose series) Hepatitis B Vaccines (1 of 3 - 19+ 3-dose series) [place] Start: 11-11-1990 Pneumococcal vaccination Pneum ococcal Vaccine (1 of 2 - PCV) [place] Start: 11-11-1989 Diabetes mellitus screening Diabetes Screening [place] Start: 11-11-1989 Hepatitis C screening [facility] Start: 11-11-1986 HIV screening HIV screen [facility] Start: 1983 Depression Screen Depression Screen [facility] Start: 1983 Depression Screening Depression Scre ening [facility] Start: 11-11-1976 COVID-19 Vaccine (#1) COVID-19 Vacci ne (#1) [place] Start: 11-11-1972 MMR Vaccines (1 of 1 - Standard series) MMR Vaccines (1 of 1 - Standard series) [place] Start: 1971 Annual wellness visit Welcome to Medicare Visit [place] Start: 1971 Hepatitis B vaccine (1 of 3 - 3-dose series) Hepatitis B vaccine (1 of 3 - 3-dose series) [facility] Start: 1971 HIV screening HIV Screening [facility] Start: 1971 Lipid panel Lipid Panel [place] Start: 1971 Screening for malign ant neoplasm of colon [facility] Patient Education [facility] Work Phone: Patient referral [facility] Work Phone: End: 11-16-2024 Tilt table study [facility] Service Area Work Phone: Comment on above: Once for 1 Occurrenc es starting 11/16/2024 until 11/16/2024 Immunizations Immunization Date Immunization Notes Care Provider Donnie dewitt 06-06-2021 SARS-CoV-2 (COVID-19 ) mRNA BNT-162b2 vax YESENIA [employer]-AMANKRA [facility] 05-15-2021 SARS-CoV-2 (COVID-19 ) mRNA BNT-162b2 vax YESENIA NKANSAH-AMANKRA [facility] 05-15-2021 influenza virus vaccine, unspecified formulation Naima Bates APRN-BALLISTICS EXPERT Work Phone: [facility] 03-11-2021 Toradol 30 mg/ml Edie cornelius Other [facility] Other 03-11-2021 KENALOG - 10 mg Edie Widm er Other [facility] Other 02-17-2021 Toradol 30 mg/ml Edie Wid ashli Other [facility] Other 06-10-2020 Depo-Medrol 80 mg Edie Wi dmer Other [facility] Other 06-19-2019 Depo-Medrol 40 mg Edie Wi dmer Other [facility] Other 11-28-2018 Toradol per 15 mg Edie Wi dmer Other [facility] Other 11-28-2018 Depo-Medrol 80 mg Edie Wi dmer Other [facility] Other Payers Date Payer Category Payer Private Health Insurance [id number] 2024 Dual Eligibility Medicare/Medicaid Organization [facility] DUAL COMPLETE [id number] 2024 Private Health Insurance [id number] 2024 Medicare MEDICARE [id number] 2024 Medicare (Managed Care) 1.2. [id number] 2024 Private Health Insurance [facility] [id number] 2022 Medicaid [id number] 2022 Self-pay [id number] 2018 Unknown [id number] 1971 Unknown [id number] 2.16.840.1.155363.3.579.2 .175 1971 Unknown [id number] 2.16.840.1.268829.3.579.2 .593 1971 Unknown [id number] 2.16.840.1.492777.3.579.2 .593 1971 Unknown [id number] 2.16.840.1.364105.3.579.2 .593 1971 Unknown [id number] 2.16.840.1.287789.3.579.2 .1286 1971 Unknown [id number] 2.16.840.1.165789.3.579.2 .727 1971 Unknown [id number] 2.16.840.1.550768.3.579.2 .727 1971 Unknown [id number] 2.16.840.1.628361.3.579.2 .727 1971 Unknown [id number] 2.16.840.1.199011.3.579.2 .727 1971 Unknown [id number] 2.16.840.1.353994.3.579.2 .727 1971 Unknown [id number] 2.16.840.1.213451.3.579.2 .727 1971 Unknown [id number] 2.16.840.1.082593.3.579.2 .182 1971 Unknown [id number] 2.16.840.1.091315.3.579.2 .182 1971 Unknown [id number] 2.16.840.1.609812.3.579.2 .182 1971 Unknown [id number] 2.16.840.1.971452.3.579.2 .182 1971 Unknown [id number] 2.16.840.1.143746.3.579.2 .182 1971 Unknown [id number] 2.16.840.1.322790.3.579.2 .1971 Unknown [id number] 2.16.840.1.665113.3.579.2 .72 1971 Unknown [id number] 2.16.840.1.137561.3.579.2 .1971 Unknown [id number] 2.16.840.1.170513.3.579.2 .727 1971 Unknown [id number] 2.16.840.1.261562.3.579.2 .727 1971 Unknown [id number] 2.16.840.1.538140.3.579.2 .72 1971 Unknown [id number] 2.16.840.1.220730.3.579.2 .72 1971 Unknown [id number] 2.16.840.1.356819.3.579.2 .72 1971 Unknown [id number] 2.16.840.1.340715.3.579.2 .72 1971 Unknown [id number] 2.16.840.1.795305.3.579.2 .727 1971 Unknown [id number] 2.16.840.1.262697.3.579.2 .1243 1971 Unknown [id number] 2.16.840.1.958488.3.579.2 .1244 1971 Unknown [id number] 2.16840.1.752579.3.579.2 .1244 1971 Unknown [id number] 2.16840.1.205626.3.579.2 .727 1971 Unknown [id number] 2.840.1.371868.3.579.2 .727 1971 Unknown [id number] 2.0.1.274262.3.579.2 .1259 1971 Unknown [id number] 2.0.1.536124.3.579.2 .9 1971 Unknown [id number] 2.840.1.335380.3.579.2 .1259 1971 Unknown [id number] .0.1.550316.3.579.2 .1259 1971 Unknown [id number] .840.1.298707.3.579.2 .1259 1959 Medicaid [id number] 10.15.830.1.353173.19 Medicaid [employer] [facility] [place] [id number] Unknown [id number] 10.15.830.1.808130.19 Unknown HCAP/HFA/FAP Active [id number] Unknown [facility] [id number] Unknown [id number] 840.1.112148.3.579.2 .531 Unknown [id number] 2.16.840.1.010074.3.579.2 .531 Unknown [id number] 2.16.840.1.714919.3.579.2 .531 Unknown [id number] 2.16.840.1.095845.3.579.2 .531 Social History Date Type Detail Facility Tobacco smoking status NHIS Unknown if ever [place] Start: 1970 Sex Assigned At Not on file [facility] [place] Start: 07-31-2024 End: 05-22-2025 Sex Assigned At [facility] Other Start: 09-10-2022 End: 05-08-2025 Tobacco smoking status NHIS Never smoked tobacco (finding) [facility] Start: 1970 Sex Assigned At Female F [facility] Tobacco smoking status [facility] Tobacco smoking consumption unknown [facility] Start: 07-31-2024 End: 05-08-2025 Tobacco use and exposure Smokeless tobacco non-user [facility] Start: 07-31-2024 End: 05-02-2025 Alcoholic beverage intake Lifetime non-drinker (finding) [place] Work Phone: Start: 07-31-2024 End: 05-22-2025 History of Social function [facility] Start: 07-21-2024 End: 11-30-2024 Exposure to SARS-CoV-2 (event) Not sure [place] Start: 01-01-2023 End: 05-22-2025 Alcoholic beverage intake Current drinker of alcohol (finding) [facility] Childcare Unknown [facility] Start: 03-28-[address] [facility] Sexual Orientation [facility] Start: 12-02-2022 Sex Female (finding) [facility] NEGATED: Highlighted rowStart: NINF History of tobacco use Passive smoker [facility] Medical Equipment Procedure Code Equipment Code Equipment Origin al Text Equipment Identifier Dates Start: 09-30-2022 CYSTOSCOPY W/ HO MIUM LASER NKANSAH-AMANKRA MD, YESENIA 10/19/24 Unknown Ureter R FDA Start: 10-19-2024 CYSTOSCOPY W/ HO MIUM LASER TREVOR RAMIREZ, YESENIA 10/19/24 Unknown Ureter R FDA Start: 10-19-2024 CYSTOSCOPY W/ HO MIUM LASER TREVOR RAMIREZ, YESENIA 10/19/24 Unknown Ureter R FDA Start: 10-19-2024 Functional Status Date Assessment Result Facility 05-22-2025 Patient Health Quest ionnaire 2 item (PHQ-2) [Reported] [facility] 05-08-2025 Patient Health Quest ionnaire 2 item (PHQ-2) [Reported] [facility] 10-12-2024 Functional Status No [facility] 10-09-2024 Functional Status N/A [facility] Clinical Notes 06-12-2021 to 05-22-2025 Anamika Celestin NP - 05/22/2025 10:00 AM EDTSdhaval Celestin, FABRICIO - 05/08/2025 10:00 AM Ye Grace DPM - 05/02/2025 3:00 PM Ye Grace DPM - 03/28/2025 2:30 PM EDT Note Date & Type Note Facility 05-22-2025 History of Present illness Narrative Images from the original note were not included. Subjective Patient ID: Joselito Vidal is a 54 y.o. female who presents for migraines. Joselito presents today for having issues with migraines, she did get samples of Nurtec and that did help her headache. She is also having back pain, but is in pain management. She also has a spot in the groan area and saw derm a few years ago, they froze the area, but now it is painful, res and swollen Migraine This is a chronic problem. The current episode started more than 1 year ago. The problem has been gradually worsening. The pain is located in the Frontal region. Radiates to: ocipital regionn and temporal region. The pain quality is not similar to prior headaches. The quality of the pain is described as throbbing. The pain is at a severity of 10/10. The pain is severe. Associated symptoms include back pain. The symptoms are aggravated by bright light, emotional stress, food, noise and weather changes. She has tried darkened room, acetaminophen, oral narcotics, beta blockers, Excedrin, triptans and NSAIDs (topamax, Nurtec, Baltatab caffiene) for the symptoms. The treatment provided no relief (relief with Nurtec). Her past medical history is significant for migraine headaches. Back Pain This is a recurrent problem. The current episode started more than 1 year ago. The problem occurs constantly. The problem has been rapidly worsening since onset. The pain is present in the lumbar spine. The quality of the pain is described as aching, burning, cramping, shooting and stabbing. The pain radiates to the left foot, left thigh, left knee, right foot, right knee and right thigh. The pain is at a severity of 10/10. The pain is severe. The pain is Worse during the night. The symptoms are aggravated by bending, position, standing and twisting. Stiffness is present All day. Associated symptoms include leg pain. Risk factors include lack of exercise. She has tried analgesics, bed rest, home exercises, heat, ice and muscle relaxant for the symptoms. The treatment provided no relief. Over the past 2 weeks, how often have you been bothered by any of the following problems? Little interest or pleasure in doing things: Not at all Feeling down, depressed, or hopeless: Not at all Patient Health Questionnaire-2 Score: 0 Current Outpatient Medications on File Prior to Visit Medication Sig Dispense Refill xpimsrtcby-icpvnergragqg-aztrvarl 50-325-40 MG tablet Take 1 tablet by mouth every 4 (four) hours if needed for headaches Calcium Carb-Cholecalciferol (Oyster Shell Calcium w/D) 500-5 MG-MCG tablet Take 1 tablet by mouth in the morning and 1 tablet before bedtime. cyanocobalamin (Vitamin B-12) 1000 MCG/ML injection Inject 1,000 mcg into the shoulder, thigh, or buttocks every 28 (twenty-eight) days empagliflozin (Jardiance) 25 MG Take 25 mg by mouth Daily fludrocortisone (Florinef) 0.1 MG tablet Take by mouth [] methylPREDNISolone (Medrol Dospak) 4 MG tablets Follow schedule on package instructions 21 tablet 0 metoprolol tartrate (Lopressor) 25 MG tablet Take 25 mg by mouth in the morning and 25 mg before bedtime. midodrine (Proamatine) 2.5 MG tablet Take 2.5 mg by mouth in the morning and 2.5 mg in the evening and 2.5 mg before bedtime. ondansetron (Zofran) 8 MG tablet Take 1 tablet (8 mg) by mouth every 8 (eight) hours if needed for nausea or vomiting 20 tablet 2 Ozempic, 0.25 or 0.5 MG/DOSE, 2 MG/3ML solution pen-injector INJECT 0.25mg SUBCUTANEOUSLY (UNDER THE SKIN) ONCE A WEEK pantoprazole (ProtoNix) 20 MG EC tablet Take 20 mg by mouth in the morning. Take before meals. Do not crush, chew, or split. terbinafine (LamISIL) 250 MG tablet Take 1 tablet (250 mg) by mouth Daily 90 tablet 0 tiZANidine (Zanaflex) 4 MG capsule Take 1 capsule (4 mg) by mouth in the morning and 1 capsule (4 mg) in the evening and 1 capsule (4 mg) before bedtime. 90 capsule 0 topiramate 50 MG tablet Take 50 mg by mouth Daily If medication is ineffective x 3 days then may increase to 100mg-2tabs 90 tablet 3 No current facility-administered medications on file prior [...] Vitals Smoking Status Never Review of Systems Musculoskeletal: Positive for back pain. Objective Physical Exam Vitals reviewed. Constitutional: Appearance: Normal appearance. HENT: Head: Normocephalic. Right Ear: A middle ear effusion is present. There is impacted cerumen. Left Ear: A middle ear effusion is present. Mouth/Throat: Mouth: Mucous membranes are moist. Pharynx: Oropharynx is clear. Eyes: Conjunctiva/sclera: Conjunctivae normal. Cardiovascular: Rate and Rhythm: Normal rate. Pulmonary: Effort: Pulmonary effort is normal. Musculoskeletal: General: Tenderness present. Comments: Lumbar tenderness Skin: General: Skin is warm and dry. Neurological: General: No focal deficit present. Mental Status: She is alert and oriented to person, place, and time. Psychiatric: Mood and Affect: Mood normal. Behavior: Behavior normal. Thought Content: Thought content normal. Judgment: Judgment normal. Assessment/Plan Diagnoses and all orders for this visit: Intractable migraine with aura with status migrainosus - Rimegepant Sulfate (Nurtec) 75 MG tablet dispersible; Take 75 mg by mouth Daily as needed (Migraines) Take medication as ordered for acute migraines. You can only take 1 tab a day for migraine relief. Elevated LDL cholesterol level - gemfibrozil (Lopid) 600 MG tablet; Take 1 tablet (600 mg) by mouth in the morning and 1 tablet (600 mg) before bedtime. Your LDL is elevated. The LDL is what stacks in the arteries. This medication will help with lowering your numbers and prevent any heart disease or stroke. No follow-ups on file. documented in this encounter [facility] 05-08-2025 History of Present illness Narrative Images [...] Prior to Visit Medication Sig Dispense Refill zxzalhwtpb-bftolganrtler-juyjfurr 50-325-40 MG tablet Take 1 tablet by [...] Morbid (severe) obesity due to excess calories (CMS-HCC) Discussed goal of BMI < 30. Advised [...] caffiene. Body mass index (BMI) 45.0-49.9, adult ([facility]) Discussed goal of BMI < 30. Advised [...] follow-ups on file. documented in this encounter [facility] 05-02-2025 History of Present illness Narrative Images [...] SKIN) ONCE A WEEK, Disp: , Rfl: zkmjvyhvko-jndliwvgfgqyz-ktyywwcb 50-325-40 MG tablet, Take 1 tablet by [...] Alexis Grace DPM documented in this encounter [facility] 04-04-2025 Telephone encounter Note Nail specimen consistent with onychomycosis. Liver enzyme test ordered and sent to [facility]. Thank you. [facility] 04-04-2025 Miscellaneous Notes Nail specimen consistent with onychomycosis. Liver enzyme test ordered and sent to [facility]. Thank you. documented in this encounter [facility] 03-28-2025 History of Present illness Narrative Images from the original note were not included. Subjective Patient ID: Joselito Vidal is a 54 y.o. 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 Medications Current Outpatient Medications: bgpygmdxor-yvchrlamuobnn-csbpdfyk 50-325-40 MG tablet, Take 1 tablet by [...] I will order liver enzyme tests to [facility] in [place] to ensure adequate liver function prior to [...] Alexis Grace DPM documented in this encounter [facility] 11-30-2024 History of Present illness Narrative [facility] Cardiology Office Follow-up: Dizziness, Syncope, Follow-up, [...] Martin Larios MD Director of Interventional Cardiology [facility] [place] [facility] documented in this encounter [place] Work Phone: 11-16-2024 Miscellaneous Notes Physician Transition of Care Summary Invasive Cardiovascular Lab Procedure Date: 11/16/2024 Attending: * No surgeons found in log * Resident/Fellow/Other Electrical Engineering Technician: * No surgeons found in log * [...] 11/16/2024 2:14 PM documented in this encounter [place] Work Phone: 11-16-2024 Surgery Postoperative evaluation and management note Physician Transition of Care Summary Invasive Cardiovascular Lab Procedure Date: 11/16/2024 Attending: * No surgeons found in log * Resident/Fellow/Other Electrical Engineering Technician: * No surgeons found in log * [...] by: Scott Bridges MD, 11/16/2024 2:14 PM T [place] Work Phone: 11-14-2024 Note Patient Education Nephrology [...] ? 8 oz (237 mL) of milk, bmclcyv-ozkaukefyzts-izgql milk, and calcium-fortifiedfruit juice. Calcium-fortified means that [...] Spinach (cooked), rhubarb, beets, sweet potatoes, and Senegalese chard. ? Peanuts. ? Potato chips, pakistani fries, and baked potatoes with skin on. ? Nuts and nut products. ? Chocolate. ??? If you regularly take a diuretic medicine, make sure to eat at least 1 or 2 servings of fruits or vegetables that are high in potassium each day. These include: ? Avocado. ? Banana. ? [place], prune, carrot, or tomato juice. ? Baked [...] fish oil, or vitamin B6. ??? Take ncpp-oac-kmmwjtm and prescription medicines only as told by your health (more content not included)... [facility] 10-23-2024 Note Progress Note-Blanka mancilla Patient: JOSELITO VIDAL Age: 53 years Sex: Female : 1970 Associated Diagnoses: None Author: Hernandez Billings MD Postoperative Information Postoperative disposition: Postoperative disposition: To PACU. Optimetrix number: Optimetrix number [id number]. Anesthetic utilized: General. Health Status Allergies: Allergic Reactions (Selected) No Known Medication Allergies Physical Examination VS/Measurements Pain Assessment: Controlled. General: Awake, Appropriate. Respiratory: Adequate air exchange. Cardiovascular: Stable. Neurological Assessment Anesthetic outcome No anesthetic complications noted. Adequate pain relief. Review / Management Condition: Stable. Plan Transfer/Discharge: Transfer/Discharge Discharge when meets criteria ( To home ). [facility] Comment on above: Result Comment: Elec [...] Daily, # 10 cap(s), Refills(s) 0, Pharmacy: [id number], 157, cm, 10/12/24 13:52:00 EST, Height/Length Dosing, 116, kg, 10/12/24 13:52:00 EST, Weight Dosing Levsin 0.125 mg SL Tab: 0.125 mg = 1 tab(s), Oral, QID, PRN for spasm, # 40 tab(s), Refills(s) 0, Pharmacy: [id number], 157, cm, 10/12/24 13:52:00 EST, Height/Length Dosing, 116, kg, 10/12/24 13:52:00 EST, Weight Dosing Roxicodone 5 mg Tab: 5 mg = 1 tab(s), Oral, q6hr, PRN for pain, # 6 tab(s), Refills(s) 0, Pharmacy: [id number], 157, cm, 10/12/24 13:52:00 EST, Height/Length [...] All Problems Apnea, sleep / SNOMED CT [id number] / Confirmed Arthritis of right kne (more content not included)... [facility] Comment on above: Result Comment: Elec tronically Signed By: Manuelito RAMIREZ, Hernandez Leavitt\.br\Date and Time Signed: 10/23/24 15:07 EST 10-19-2024 Hospital Discharge instructions Patient Education 10/19/2024 13:35:23 Fadm-Prls-zq Utereroscopy,Lithotripsy, Stone Extraction, Stent Placement (CUSTOM) [facility] [place], [place] Dr. Bradford Hagen Post-operative Instructions for [...] other reasons. 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 Bradford Hagen Post-operative Instructions for [...] other reasons. If it is to remain jail, however, changes of the stent are required [...] arrange for your post-operative appointment (with XRAY) [phone] [facility] 10-09-2024 Hospital Discharge instructions Patient Education [...] including vitamins, herbs, eye drops, creams, and doso-qzk-vopiftq medicines. Any problems you or family members [...] health care provider tells you to. Taking wjow-dbf-kmibcok medicines, vitamins, herbs, and supplements. General instructions [...] provider. Document Revised: 07/19/2023 Document Reviewed: 07/19/2023 ElseIndeed Patient Education 2023 [employer]. Follow Up Care 10/06/2024 15:52:25 With:YESENIA YUSUF MD, MILAL Address: When: Unknown [facility] 10-09-2024 Note Patient Education Urology Ureteroscopy Ureteroscopy [...] including vitamins, herbs, eye drops, creams, and opac-niw-bofoank medicines. ??? Any problems you or family [...] care provider tells you to. ??? Taking fpjv-csn-yytezgm medicines, vitamins, herbs, and supplements. General instructions [...] after the procedure? (more content not included)... [facility] 08-09-2024 History of Present illness Narrative Images from the original note were not included. Chief complaint: Back pain Subjective Joselito Vidal, 53 y.o., female Patient presents today for a follow up for impaired ambulation and lumbosacral spondylosis. Patient went to pain management in [place] and states they were not able to [...] on her walker. 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 She cannot walk long distances [...] , wrist extensors , wrist flexor , coal deliverer strength 5/5. LUE Strength deltoid , biceps , triceps , wrist extensors , wrist flexor , coal deliverer strength 5/5. RLE Strength illopsoas, quadriceps, tibialis [...] sensation intact in distal extremities. Cerebellar Function: Sijetj-yb-Buvd Normal. Gait and Station: Gait Ambulates with [...] discontinued this. She has trialed and failed stja-ouu-udpbzad medication with ibuprofen and Tylenol at appropriate [...] has been previously seen pain management in [place] but is unable to access them as regularly as needed. Polypharmacy The patient is still on an extensive list of medications. 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 She states many of these [...] She was previously seen pain management in [place] but with driving so far and with injections lasting so sure she is having difficulty getting there as frequently is as needed. Pt has been fully educated on their diagnosis, lab results, treatment options, follow up plan, return instructions, and discussion of mental health issues documented in this encounter [facility] 07-31-2024 History of Present illness Narrative Patient presents for cardiovascular evaluation in the [place] office at the request of AMARILIS Schmidt for the following: Chief Complaint: New Patient Visit HISTORY OF PRESENT ILLNESS: Joselito Vidal is a 53 y.o. female with prior cardiac history of POTS. Other pertinent medical history includes spinal stenosis. Patient reports symptoms of feeling overheated and dizzy. Off balance, was seen at [facility]. Was diagnosed with POTS clinically. Started on metoprolol. Holter subsequently. In general patient reports pain. Palpitations, hot, dizzy. Food can trigger. Getting up quickly. No syncope, but has had near syncope. Patient decribes no chest pain. Patient reports experiencing mild weight gain, with some increase consistently record changer the past year. The patient also reports [...] Martin Larios MD documented in this encounter [place] Work Phone: 02-15-2024 History of Present illness [...] Doing physical therapy and aquatic therapy at [facility]. No other test therapy or updates from [...] Refill: 0 Orders Placed This Encounter Procedures MO DSTR NROLYTC AGNT PARVERTEB FCT SNGL LMBR/SACRAL [...] evaluation -Reviewed EMG B LE above from [facility] neurologic [facility], all questions answered -Will continue to monitor [...] cord stimulation at this time, previously given [facility] information, Psych for evaluation on hold. -Underwent [...] previously recommended by us or other medical record librarian. Risks of not pursing these recommendations were [...] Joselito Vidal : 1970 Date: 02/15/2024 Provider: MD Joselito Rashid is here today for interventional pain management. [...] L3 [x] L4 [] Left [x] L5 [address], [address], [place] [address] / documented in this encounter [facility] 01-19-2024 History of Present illness Narrative Images from the original note were not included. Joselito Vidal is a 53 y.o. female who presents for annual rn document improvement exam. 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 Hysterectomy: no She [...] spot. She was then seen by a mate chief for an area on her face and [...] Past Medical History: Diagnosis Date Diabetes mellitus (CMS-HCC) Hypertension POTS (postural orthostatic tachycardia syndrome) Spinal [...] postmenopausal, is stopping POPs. RTO for annual rn document improvement exam and / or PRN. AMARILIS Meek APRN-CNP 01/19/24 1537 documented in this encounter [facility] 01-02-2024 Miscellaneous Notes Patient needs annual (12/15/22). One refill sent. Please call and get her scheduled. Thank you. Pt has Annual scheduled for January 18. documented in this encounter [facility] 01-02-2024 Telephone encounter Note Patient needs annual (12/15/22). One refill sent. Please call and get her scheduled. Thank you. [facility] 01-02-2024 Telephone encounter Note Pt has Annual scheduled for January 18. [facility] 12-15-2023 Miscellaneous Notes Patient due for annual (12/15/22). One refill sen. Pt has Annual exam scheduled for January 18. documented in this encounter [facility] 12-15-2023 Telephone encounter Note Patient due for annual (12/15/22). One refill sen. [facility] 12-15-2023 Telephone encounter Note Pt has Annual exam scheduled for January 18. [facility] 04-16-2023 Evaluation note Encounter Date Diagnosis [...] Zyrtec/Claritin daily. Recommended patient follow-up over to [facility] for follow-up appointment with PCP to discuss next steps. Patient verbalizes understanding and is agreeable with treatment plan [facility] Other 06-06-2023 Evaluation note* Encounter Date Diagnosis Assessment Notes Treatment Notes Treatment Clinical Notes Jan, Prediabetes (ICD-10 - R73.03) Jan, Body mass index (BMI ) of 45.0-49.9 in adult (ICD-10 - Z68.42) Jan, Hypertension (ICD-10 - I10) Jan, Obstructive sleep apnea (ICD-10 - G47.33) Jan, Knee osteoarthritis (ICD-10 - M17.9) Jan, Metabolic syndrome X (ICD-10 - E88.81) [facility] Other 04-26-2023 Evaluation note* Encounter Date Diagnosis Assessment Notes Treatment Notes Treatment Clinical Notes Nov, Obstructive sleep apnea (ICD-10 - G47.33) Nov, Morbid (severe) obesity due to excess calories (ICD-10 - E66.01) [facility] Other 04-19-2023 Evaluation note* Encounter Date Diagnosis [...] following goals: - explore exercise options: [employer], [employer], and home execises; PARTIALLY MET - add more veggies - PARTIALLY MET [facility] Other 04-17-2023 Evaluation note* Encounter Date Diagnosis [...] Encounter for weight management (ICD-10 - Z76.89) [facility] Other 04-04-2023 Evaluation note* Encounter Date Diagnosis [...] goals: - NEW: explore exercise options: [employer], [employer], and home execises - NEW: add more veggies [facility] Other 03-11-2023 Evaluation note* Encounter Date Diagnosis [...] hip pain may be exacerbated by knee [facility] Other 03-07-2023 Evaluation note* Encounter Date Diagnosis [...] no improvement in 2 to 3 days. [facility] Other 03-03-2023 Evaluation note* Encounter Date Diagnosis [...] routine Strongly encouraged to connect with our machine installer for exercises she is able to do [...] Encounter for weight management (ICD-10 - Z76.89) [facility] Other 03-02-2023 Evaluation note* Encounter Date Diagnosis [...] (ICD-10 - J32.4) Take medication as directed. [facility] Other 02-07-2023 Evaluation note* Encounter Date Diagnosis [...] patient set personal goal using given handout. [facility] Other 02-02-2023 Evaluation note* Encounter Date Diagnosis [...] (ICD-10 - F41.1) Continue current treatment program [facility] Other 02-01-2023 Evaluation note* Encounter Date Diagnosis [...] discuss other options through menopause with her DRIVE MAN. Optimize sleep quality and quantity using good [...] the week. Encouraged to take advantage of machine installer available at [facility] that can help work around limitations. [...] prevent diabetes. Consider metformin or GLP-1 agonist. [facility] Other 01-22-2023 Evaluation note* Encounter Date Diagnosis [...] no improvement in 2 to 3 days [facility] Other 01-16-2023 Evaluation note* Encounter Date Diagnosis [...] then have labs rechecked the day after [facility] Other 01-12-2023 Evaluation note* Encounter Date Diagnosis Assessment Notes Treatment Notes Treatment Clinical Notes Aug, Urine retention (ICD-10 - R33.9) very concerned patient is having symptoms of neurogenic bladder due to symptoms occuring after a recent fall. Recommend patient go to ER due to inability to urinate and she has not urinated since yesterday evening. [facility] Other 12-29-2022 Evaluation note* Encounter Date Diagnosis Assessment Notes Treatment Notes Treatment Clinical Notes Jul, LACEY (generalized anxiety disorder) (ICD-10 - F41.1) Jul, Other low back pain (ICD-10 - M54.59) Jul, Insomnia, unspecified type (ICD-10 - G47.00) Jul, Other spondylosis with radiculopathy, lumbar region (ICD-10 - M47.26) MME is 9.7 per day and OARRS is checked. Jul, Skin lesion (ICD-10 - L98.9) [facility] Other 12-19-2022 Evaluation note* Encounter Date Diagnosis Assessment Notes Treatment Notes Treatment Clinical Notes Jul, Other spondylosis with radiculopathy, lumbar region (ICD-10 - M47.26) [facility] Other 12-01-2022 Evaluation note* Encounter Date Diagnosis [...] work then we may discuss seeing ENT [facility] Other 11-21-2022 Evaluation note* Encounter Date Diagnosis Assessment Notes Treatment Notes Treatment Clinical Notes Jun, Left otitis media with effusion (ICD-10 - H65.92) Jun, Thrush (ICD-10 - B37.0) Jun, DDD (degenerative disc disease), lumbar (ICD-10 - M51.36) [facility] Other 11-03-2022 Evaluation note* Encounter Date Diagnosis [...] call office and we will send referal [facility] Other 10-31-2022 Evaluation note* Encounter Date Diagnosis [...] Above note written by Javed Arreola MA, Retail Store Assistant. Edited and approved by Dr. Pop Blandon MD. [facility] Other 10-27-2022 Evaluation note* Encounter Date Diagnosis [...] F41.1) Added as needed medication as discussed. [facility] Other 09-26-2022 Evaluation note* Encounter Date Diagnosis [...] index [BMI] 40.0-44.9, adult (ICD-10 - Z68.41) [facility] Other 09-26-2022 Evaluation note* Encounter Date Diagnosis [...] index [BMI] 40.0-44.9, adult (ICD-10 - Z68.41) [facility] Other 09-22-2022 Evaluation note* Encounter Date Diagnosis Assessment Notes Treatment Notes Treatment Clinical Notes Apr, Lumbar degenerative disc disease (ICD-10 - M51.36) Keep upcoming appointments with pain management appointments and neurosurgery appt as discussed. Apr, Acute non-recurrent frontal sinusitis (ICD-10 - J01.10) Take medication as directed. Recommend taking OTC Zyrtec or allergy until after harvest season [facility] Other 08-29-2022 Evaluation note* Encounter Date Diagnosis [...] further steps are needed. Patient states understanding. [facility] Other 08-24-2022 Evaluation note* Encounter Date Diagnosis [...] note writ ten by Javed Arreola CMA, Retail Store Assistant. Edited and approved by Dr. Pop Blandon MD. [facility] Other 08-18-2022 Evaluation note* Encounter Date Diagnosis Assessment Notes Treatment Notes Treatment Clinical Notes Mar, Strain of lumbar region, initial encounter (ICD-10 - S39.012A) [facility] Other 08-08-2022 Evaluation note* Encounter Date Diagnosis [...] with radiculopathy, lumbar region (ICD-10 - M47.26) [facility] Other 07-05-2022 Evaluation note* Encounter Date Diagnosis [...] Feb, Left lumbar pain (ICD-10 - M54.50) [facility] Other 06-01-2022 Evaluation note* Encounter Date Diagnosis Assessment Notes Treatment Notes Treatment Clinical Notes Jan, Generalized pain (ICD-10 - R52) Jan, Strain of lumbar region, initial encounter (ICD-10 - S39.012A) [facility] Other 05-19-2022 Evaluation note* Encounter Date Diagnosis [...] note writ ten by Javed Arreola CMA, Retail Store Assistant. Edited and approved by Dr. Pop Blandon MD. [facility] Other 04-14-2022 Evaluation note* Encounter Date Diagnosis [...] note writ ten by Luli Garcias LPN, Retail Store Assistant. Edited and approved by Dr. Pop Blandon MD. [facility] Other 03-17-2022 Evaluation note* Encounter Date Diagnosis [...] note writ ten by Javed Arreola MA, Retail Store Assistant. Edited and approved by Dr. Pop Blandon MD. [facility] Other 03-10-2022 Evaluation note* Encounter Date Diagnosis [...] discussed so you can talk about referrals. [facility] Other 03-02-2022 Evaluation note* Encounter Date Diagnosis Assessment Notes Treatment Notes Treatment Clinical Notes Oct, Generalized pain (ICD-10 - R52) [facility] Other 01-31-2022 Evaluation note* Encounter Date Diagnosis [...] note writ ten by Javed Arreola MA, Retail Store Assistant. Edited and approved by Dr. Pop Blandon MD. [facility] Other 12-13-2021 Evaluation note* Encounter Date Diagnosis [...] given Flexeril to help relax her muscles. [facility] Other 10-14-2021 Evaluation note* Encounter Date Diagnosis [...] Patient care instructions given in writting by [facility] document. [facility] Other Evaluation + Plan note Future Appointments Appointment Date:10/12/2024 01:30:00 PM Scheduled Provider: Location:[facility] Appointment Type:Surgical PAT FT Appointment Date:10/19/2024 11:30:00 AM Scheduled Provider: Location:[facility] Appointment Type:Surgery FT Appointment Date:10/23/2024 10:15:00 AM Scheduled Provider:Obdulio Matamoros DO Location:FT.[facility] Appointment Type:Pain Management - New (FT) [facility] Evaluation + Plan note Future Appointments Appointment Date:10/19/2024 11:30:00 AM Scheduled Provider: Location:[facility] Appointment Type:Surgery FT Appointment Date:10/23/2024 10:15:00 AM Scheduled Provider:Obdulio Matamoros DO Location:.[facility] Appointment Type:Pain Management - New (FT) [facility] Evaluation + Plan note Future Appointments Appointment Date:10/23/2024 10:15:00 AM Scheduled Provider:Obdulio Matamoros DO Location:[facility] Appointment Type:Pain Management - New (FT) [facility] evaluation + Plan note Future Appointments Appointment Date:11/02/2024 10:15:00 AM Scheduled [facility]: [facility]:XR Abdomen (FT) Appointment Date:11/02/2024 10:30:00 AM Scheduled Provider: [facility] Appoint[facility] Type:US Abdominal/Pelvis (FT) Appointment Date:11/20/2024 10:20:00 AM Scheduled Provider:YESENIA YUSUF MD Location:[facility] Appointment Type:URO Office Visit Future Scheduled Tests Radiology* XR Abdomen 1 View 11/02/24 * US Renal 11/02/24 [facility] evaluation + Plan note Future Appointments Appointment Date:01/29/2025 11:00:00 AM Scheduled Provider:YESENIA YUSUF MD Location:[facility] Appointment Type:URO Office Visit [facility] evaluation noteNo InformationN[facility] [email or web address] Other Evfzjnzuyx noteNo assessment information available [facility] Work Phone: evaluation note* Diagnosis Onset Date Resolution Status Obesity, morbid, BMI 40.0-49.9 acute Obstructive sleep apnea of adult acute [facility] Work Phone: Evaluation note* Diagnosis Lumbar radiculopathy- Primary Thoracic or lumbosacral neuritis or radiculitis, unspecified Polypharmacy Issue of repeat prescriptions documented in this encounter [facility]* Diagnosis Postural dizziness with near syncope- Primary Abnormal EKG Nonspecific abnormal electrocardiogram (ECG) (EKG) documented in this encounter [place] Work Phone: Evaluation note* Diagnosis Lumbosacral spondylosis without myelopathy- Primary [facility] Diagnosis Encounter for initial prescription of contraceptive pills [facility] Diagnosis Well woman exam with routine gynecological exam- Primary Routine gynecological examination Encounter for screening mammogram for malignant neoplasm of breast Standardized adult depression screening tool completed Skin lesion of right leg Unspecified disorder of skin and subcutaneous tissue [facility] Diagnosis Postural dizziness with near syncope documented in this encounter [place] Work Phone: Evaluation note* Diagnosis Postural dizziness with near syncope documented in this encounter [place] Work Phone: Evaluation note* Diagnosis Onychomycosis- Primary Dermatophytosis of nail Right foot pain Pain in soft tissues of limb Plantar wart Left foot pain Pain in soft tissues of limb documented in this encounter [facility]* Diagnosis Onychomycosis- Primary Dermatophytosis of nail documented in this encounter [facility]* Diagnosis Plantar wart- Primary documented in this encounter [facility]* Diagnosis Primary insomnia- Primary Persistent [...] Morbid (severe) obesity due to excess calories ([facility]) Obesity, class 3 Body mass index (BMI) 45.0-49.9, adult ([facility]) Major depressive disorder, single episode, in full remission Major depressive disorder, single episode in full remission documented in this encounter [facility]* Diagnosis Intractable migraine with aura with status migrainosus- Primary Migraine with aura, with intractable migraine, so stated, with status migrainosus Elevated LDL cholesterol level documented in this encounter [facility] HealthcareHistory general Narrative - Reported* Type Description Date Medical History HTN Hospitalization History [facility] Other History general Narrative - Reported* Type Description Date Medical History HTN Medical History back pain Hospitalization History [facility] Other History general Narrative - Reported* Type Description Date Medical History HTN Medical History Back pain Medical History Day time fatigue Medical History Depression Medical History Gestational diabetes in the past Medical History Spinal stenosis Medical History Chronic pain requiring narcotic use Hospitalization History saliva stones [facility] Other History general Narrative - Reported* Type Description Date Medical History HTN Medical History Back pain Medical History Day time fatigue Medical History Depression Medical History Gestational diabetes in the past Medical History Spinal stenosis Medical History Chronic pain requiring narcotic use Hospitalization History saliva stones Hospitalization History [facility] [place] 09/2021 [facility] Other History general [facility] - [facility] Other Hospital course Narrative No data available for this section [facility] Hospital Discharge instructions Additional Instructions Use your albuterol inhaler as prescribed for your shortness of breath and wheezing. Take Levaquin and prednisone as prescribed for pneumonia and laryngitis follow-up with the PCP for reevaluation in 5 to 7 days. .[facility] Work Phone: Hospital Discharge instructions No data available for this section [facility] InstructionsNot on filedocumented in this encounter [email or web address] SystemInstructions* Attachments The following attachments cannot be sent through Care Everywhere. * Menopause (Yi) * Health Risks of a High BMI (Yi) [facility] No data available for this section [facility] Reason for referral (narrative)* Consultation (Routine) - Pending Review Specialty Diagnoses / Procedures Referred By Lalit cisneros Referred To Contact Dermatology Diagnoses Skin lesion of right leg Naima Bates, STAVE JOINTER-BALLISTICS EXPERT [address] [place] [address] Emely Veloz MD [address], [facility] [address] [place] [address] Referral ID Status Reason Start Date Expiration Date Visits Requested Visits Authorized [id number] Pending Review Specialty Services Required 01/19/2024 01/18/2025 1 [facility] NarrativeNeurosurgery Referral Update [facility] Other Relokc for visit NarrativePain Medicine Ref[facility] Other reason for visit NarrativeDermatology Referral Update [facility] [employer] Other reason for visit Narrative* Consultation (Routine) - Pending Review Specialty Diagnoses / Procedures Referred By Contac t Referred To Contact Neurology Diagnoses Difficulty in walking, not elsewhere classified Spondylolysis, lumbosacral 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, lumbar region Procedures MO OFFICE/OUTPATIENT [facility] MDM Ellie Ingram, FABRICIO [address] [place] [address] Phone: tel: fax: Joesph Macedo MD [address] [place] [address] Phone: tel: fax: Referral ID Status Reason Start Date Expiration Date Visits Requested Visits Authorized [id number] Pending Review Consult and Treat 01/14/2025 1 1 [facility] Narrative* Cardiovascular (Routine) - Authorized Specialty Diagnoses / Procedures Referred By Contac t Referred To Contact Cardiology Diagnoses Postural dizziness with near syncope [place] [address] [facility] [address] [place] [address] Phone: tel: fax: Referral ID Status Reason Start Date Expiration Date V isits Requested Visits Authorized [id number] Authorized 07/31/2024 07/31/2025 1 1 [place] Work Phone: Summary Purpose Family History No [...] CONTRAST Edie Singh N, DO [address] [place] [address] Reason his shefflied o ffice - patient has history of chronic back pain and would like opinion if surgery is option Diagnosis 1 Pain in left lumbar region of back (M54.50) Diagnosis 2 Lumbar degenerative disc disease (M51.36) Diagnosis 3 DDD (degenerative di sc disease), lumbar (M51.36) Diagnosis 4 Other spondylosis wi th radiculopathy, lumbar region (M47.26) Referral Organization [facility] Family Medicklaus hong Rafi Referring Provider First Name Ellie Referring Provider Last Name Juan Jose Referring Provider Specialty Nurse Pract ithumar Referred Organization Unknown Facility Referred Provider Specialty [...] they have other Neurosurgeons there, then Yes Serene Lucas 03/06/2022 07:55:07 AM >Waiting for office notes to be locked before sending referral Serene Lucas 03/10/2022 10:08:27 AM >Referral was fax Reason *FU 07/09 lumbar p ain [facility] Diagnosis 1 Lumbar degenerative disc disease (M51.36) Referral Organization [facility] Family Medicin e Rafi Referring Provider First Name Ellie Referring Provider Last Name Juan Jose Referring Provider Specialty Nurse Pract itioner Referred Organization [facility] Referred Address [address], [place],[address] Referred Provider Specialty Pain Medicin e Referral Priority Routine General Notes Serene Lucas 03:02:38 PM >Received and fax referral today Clinical Notes Office [phone] Reason CANCELLED recently changed skin lesions on face Diagnosis 1 Skin lesion (L98.9) Referral Organization [facility] Family Medicin e Rafi Referring Provider First Name Ellie Referring Provider Last Name Juan Jose Referring Provider Specialty Nurse Pract itioner Referred Organization [facility] Referred Address [address],[place], [place],[address] Referred Provider Specialty Dermatology Referral Priority Routine [...] Diagnosis 1 Sleep apnea (G47.30) Referral Organization [facility] Referring Provider First Name Danya Referring Provider Last Name byron Referring Provider Specialty Nurse Pract itioner Referred Organization [facility] Referred Address [address] [place],[address] Referred Provider Specialty Sleep Medici ne Referral Priority Routine General Notes Xiomy Solo 2022 08:06:34 AM > Faxed to sleep lab. Xiomy Solo 10/22/2022 08:01:36 AM > Per Central Scheduling, order was received but pt has not been contacted yet to schedule. Specialty Diagnoses / Procedures Referred By Lalit cisneros Referred To Contact Diagnoses Lumbosacral spondylosis without myelopathy Procedures MO DSTR NROLYTC AGNT PARVERTEB FCT SNGL LMBR/SACRAL Patricia Walker MD [address] [place] [address] Referral ID Status Reason Start Date Expiration Date Visits Re quested Visits Authorized [id number] Open 02/16/2024 02/15/2025 1 1 Assessments Diagnosis [...] adult Chief Complaint REQUALIFY, SHARMILA REQUALIFY, SHARMILA - Visit Reason for Visit Obesity, morbid, BMI 40.0-49.9 Obstructive sleep apnea of adult Additional Source Comments INFORMATION SOURCE (unrecogn ized section and content) DATE CREATED AUTHOR 08/14/2020 [facility] DATE CREATED AUTHOR AUTHOR'S ORGANIZ ATION 11/20/2022 [facility] DATE CREATED AUTHOR AUTHOR'S ORGANIZ ATION 01/21/2024 [facility] DATE CREATED AUTHOR AUTHOR'S ORGANIZ ATION 01/22/2024 [facility] DATE CREATED AUTHOR AUTHOR'S ORGANIZ ATION 01/23/2024 [facility] DATE CREATED AUTHOR AUTHOR'S ORGANIZ ATION 02/25/2024 [facility] DATE CREATED AUTHOR AUTHOR'S ORGANIZ ATION 03/23/2024 [facility] DATE CREATED AUTHOR AUTHOR'S ORGANIZ ATION 05/06/2024 [facility] DATE CREATED AUTHOR AUTHOR'S ORGANIZ ATION 06/25/2024 [facility] DATE CREATED AUTHOR AUTHOR'S ORGANIZ ATION 10/14/2024 [facility] DATE CREATED AUTHOR AUTHOR'S ORGANIZ ATION 10/15/2024 [facility] DATE CREATED AUTHOR AUTHOR'S ORGANIZ ATION 10/21/2024 [facility] DATE CREATED AUTHOR AUTHOR'S ORGANIZ ATION 11/04/2024 [facility] DATE CREATED AUTHOR AUTHOR'S ORGANIZ ATION 11/16/2024 [facility] DATE CREATED AUTHOR AUTHOR'S ORGANIZ ATION 12/03/2024 [facility] DATE CREATED AUTHOR AUTHOR'S ORGANIZ ATION 02/27/2025 [facility] [place] [facility] DATE CREATED AUTHOR AUTHOR'S ORGANIZ ATION 03/12/2025 [facility] DATE CREATED AUTHOR AUTHOR'S ORGANIZ ATION 05/14/2025 [facility] DATE CREATED AUTHOR AUTHOR'S ORGANIZ ATION 05/23/2025 [facility] EPIC Reason for Visit (unrecogniz ed section and content) Status Reason Specialty Diagnoses / Procedures Referre d By Contact Referred To Contact Closed Radiology Diagnoses Lateral epicondylitis, left elbow Pain in left elbow Procedures HC MRI-UPPER EXT JNT WO Edie Cole, DO [address] [place] [address] [facility] [address] [place] [address] Reason Comments New Patient Visit Specialty Diagnoses / Procedures Referred By Contac t Referred To Contact Diagnoses Abnormal EKG Procedures ECG 12 lead (Clinic Performed) Martin Larios MD [address] [place] [address] [address], [address] [address] Phone: tel: fax: Referral ID Status Reason Start Date Expiration Date V isits Requested Visits Authorized [id number] Authorized 07/31/2024 07/31/2025 1 1 Reason Comments Med Refill Reason Comments Dizziness Syncope Follow-up Results Specialty Diagnoses / Procedures Referred By Contac t Referred To Contact Cardiology Diagnoses Postural dizziness with near syncope Procedures Follow Up In Cardiology Martin Larios MD [address] [place] [address] [address], [address] [address] Phone: tel: fax: Referral ID Status Reason Start Date Expiration Date V isits Requested Visits Authorized [id number] Pending Review 07/31/2024 07/31/2025 1 1 Reason Comments Plantar Warts 54 yo [employer] presents to day for concerns of plantar [...] Status Dates Dario Olmedo MD Attending Pr ovider, Other Provider Active Start: December 29, 2023 [...] Role Status Dates Ellie Juan Jose , LACQUERER-C Primary Care Provider, Atten ding Provider Active Team Status: Inactive Member Role Status Dates Elliedavid Ingram , LACQUERER-C Primary Care Provider, Atten ding Provider Active Team Status: Active Member Role Status Dates Ellie Juan Jose , LACQUERER-C Primary Care Provider Active Team Status: Inactive Member Role Status Dates Ellie Juan Jose , LACQUERER-C Primary Care Provider Active Edie Bolton DO Emergency Provider Active Team Status: Inactive Member Role Status Dates Ellie Juan Jose , LACQUERER-C Primary Care Provider Active Susana Ellis NP-C Attending Provider Active Team Status: Inactive Member Role Status Dates Elliedavid Ingram , LACQUERER-C Primary Care Provider Active Danya Carty APRN Referring Provider Active Dario Olmedo MD Attending Provider Active Team Status: Inactive Member Role Status Dates Elliedavid Ingram , LACQUERER-C Primary Care Provider Active Dario Olmedo MD Attending Provider Active Team Status: Inactive Member Role Status Dates Ellie Juan Jose , LACQUERER-C Primary Care Provider Active Dario Palacios DO Attending Provider Active Team Status: Inactive Member Role Status Dates Elliedavid Ingram , LACQUERER-C Primary Care Provider Active Start: November 26, 2023 End: November 26, 2023 Susan Duckworth APRN ACNP-BC Attending Provider Active Start: November 26, 2023 End: November 26, 2023 Team Status: Active Member Role Status Dates NON STAFF Primary Care Provider Active Start: October 13, 2023 Estuardo Judge DO Attending Provider Active Sta rt: October 13, 2023 Sales Engagement Executive Relationship Specialty Start Date End Date Unallocated, Eryn Wasserman MD [address] [place] [address] PCP - General Family Medicine 07/18/24 Ellie Ingram NP [address] [place] [address] Referring Physician 07/18/24 Sales Engagement Executive Relationship Specialty Start Date End Date Unallocated, Eryn Wasserman MD [address] [place] [address] PCP - General Family Medicine 07/18/24 Ellie Ingram NP [address] [place] [address] Referring Physician 07/18/24 Sales Engagement Executive Relationship Specialty Start Date End Date Ellie Ingram APRN-[facility] [place] [phone] PCP - General Family Medicine 07/18/24 Sales Engagement Executive Relationship Specialty Start Date End Date Ellie Ingram APRN - NP [address] [place] [address] PCP - General 03/26/22 Sales Engagement Executive Relationship Specialty Start Date End Date Ellie Ingram APRN-CNP [address] [place] [phone] PCP - General Family Medicine 07/18/24 Martin Larios MD [address] [address] Consulting Physician Cardiology 11/09/24 Sales Engagement Executive Relationship Specialty Start Date End Date Ellie Ingramell, STAVE JOINTER-BALLISTICS EXPERT [address] [place] [phone] PCP - General Family Medicine 07/18/24 Martin Larios MD [address] [address] Consulting Physician Cardiology 11/09/24 Sales Engagement Executive Relationship Specialty Start Date End Date Rancho Hernandez MD [address] [place] [address] PCP - General Family Medicine 03/16/25 Ellie Ingram NP [address] [place] [address] Referring Physician 07/18/24 Sales Engagement Executive Relationship Specialty Start Date End Date Rancho Hernandez MD [address] [place] [address] PCP - General Family Medicine 03/16/25 Ellie Ingram NP [address] [place] [address] Referring Physician 07/18/24 Sales Engagement Executive Relationship Specialty Start Date End Date Rancho Hernandez MD [address] [place] [address] PCP - General Family Medicine 03/16/25 Ellie Ingram NP [address] [place] [address] Referring Physician 07/18/24 Sales Engagement Executive Relationship Specialty Start Date End Date Rancho Hernandez MD [address] [place] [address] PCP - General Family Medicine 03/16/25 Ellie Ingram NP [address] [place] [address] Referring Physician 07/18/24 Sales Engagement Executive Relationship Specialty Start Date End Date Rancho Hernandez MD [address] [place], [place] [phone] PCP - General Family Medicine 03/16/25 Ellie Ingram NP [address] [place] [address] Referring Physician 07/18/24 Sales Engagement Executive Relationship Specialty Start Date End Date Rancho Hernandez MD [address] [place] [address] PCP - General Family Medicine 03/16/25 Ellie Ingram NP [address] [place] [address] Referring Physician 07/18/24 Sales Engagement Executive Relationship Specialty Start Date End Date Rancho Hernandez MD [address] [place] [address] PCP - General Family Medicine 03/16/25 Ellie Ingram NP [address] [place] [address] Referring Physician 07/18/24 Goals (unrecognized section and [...] BE BASED ON THE PRIMARY CLINICAL RECORDS. [employer] [facility]. provides no warranty or guarantee of the accuracy or completeness of information in this document.
--- NOTE | 2025-05-23 11:12 | PM.CN ---
Consult Note: HPI Data of Consult Patient: known to practice within the last 3 years Requesting Physician: Lois Borjas NP Primary Care Provider: LIT TORRES Consult Narrative Reason for consult: establish care, chronic neck and low back pain Narrative: Mariana Kelly a pleasant 54 year old female presents for evaluation of chronic neck and low back pain. pt is on disability, has been diagnosed this year with POTS, and has a hx of lumbar spondylosis and lumbar stenosis with NC. pt previously following with [facility] pain management in 2023 with short term relief from injections, was interested in a spinal cord stimulator. Pt recently established with a new PCP who has made numerous medication changes, pt typically received possible toradol injections and oral steroids every few months from her pcp as well as gabapentin, tizanidine, temazepam, and tramadol. pt does not find these medications helpful since she has been on them for a while. i have no records from her PCP at this time, she has again changed PCP and is pleased with Maile Gunter. cannot tolerate PT due to severe pain. JU 52%. pain today 10/10 in neck and low back, increasing with standing, walking, lifting, bending, twisiting. pain improved with sleep. now on tramadol prn without benefit, tizanidine and topamax with benefit. recently underwent lumbar xray which reveals 4-10mm listhesis at L4-5 with flexion/extension and lumbar MRI with results below. cc:: CC: Lois Borjas NP Review of Systems ROS Musculoskeletal Reports: back pain, neck pain, extremity pain and joint pain [facility] History (Updated 05/23/25 @ 11:14 by Lois Borjas NP) Tachycardia ?R00.0 - Tachycardia, unspecified (ICD-10) Autonomic dysfunction ?G90.9 - Disorder of the autonomic nervous system, unspecified (ICD-10) Stage 3b chronic kidney disease (CKD) ?N18.32 - Chronic kidney disease, stage 3b (ICD-10) Extrinsic asthma without complication ?J45.909 - Unspecified asthma, uncomplicated (ICD-10) LACEY (generalized anxiety disorder) ?F41.1 - Generalized anxiety disorder (ICD-10) Hypertension ?I10 - Essential (primary) hypertension (ICD-10) Prediabetes ?R73.03 - Prediabetes (ICD-10) Lumbar spondylosis ?M47.816 - Spondylosis without myelopathy or radiculopathy, lumbar region (ICD-10) Back pain ?M54.9 - Dorsalgia, unspecified (ICD-10) Anxiety ?F41.9 - Anxiety disorder, unspecified (ICD-10) Family History Mother Family history of COPD (chronic obstructive pulmonary disease) Family history of cancer Family history of hypertension Grandfather Family history of cancer Family history of diabetes mellitus Family history of myocardial infarction Family history of stroke Grandmother Family history of diabetes mellitus Sister Family history of hypertension Father Family history of hypertension Social History Within the past year, how often did you have a drink containing alcohol: monthly or less Within the past year, how often did you have six or more drinks on one occasion: less than monthly Smoking status: Never smoker Non-prescribed substance use: cannabis (any form) Non-prescribed substance use details: vape cbd 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 Highest level of school completed/degree received: some college, no degree Are you now , , , , never or living with a partner: In a typical week, how many times do you talk on the telephone with family, friends, or neighbors: 3 or more times per week How often do you get together with friends or relatives: 3 or more times per week How often do you attend religion or holiness services: never Do you belong to any clubs or organizations such as religion groups unions, fraternal or athletic groups, or school groups: no Total score: 1 Score interpretation: A score of less than or equal to 1 indicates the most socially isolated. Little interest or pleasure in doing things: more than half the days Feeling down, depressed, or hopeless: not at all Feel stressed/tense/nervous/anxious/difficulty sleeping: not at all Do you think of yourself as: straight/heterosexual Gender Identity: female Meds Home Medications and Allergies Home Medications ?Medication ?Instructions ?Recorded ?Confirmed ?Type albuterol sulfate 90 mcg/actuation 2 puff inhalation Q4H PRN 10/08/23 10/13/23 History aerosol inhaler shortness of breath or wheezing amitriptyline 75 mg tablet 75 mg PO QPM 10/08/23 10/13/23 History budesonide-formoterol HFA 160 1 puff inhalation Q12H 10/08/23 10/13/23 History mcg-4.5 mcg/actuation aerosol inhaler (Symbicort) pantoprazole 20 mg tablet,delayed 20 mg PO DAILY 10/08/23 10/13/23 History release tizanidine 4 mg tablet 4 mg PO TID PRN muscle spasticity 10/08/23 10/13/23 History tmmmwkagaq-ihlohjgcegfov-rlxccjis 1 tab PO Q6H PRN Headache #20 tabs 10/15/23 Rx 50 mg-325 mg-40 mg tablet fludrocortisone 0.1 mg tablet 0.1 mg PO QD #30 tabs 10/15/23 Rx metoprolol tartrate 25 mg tablet 25 mg PO BID #60 tabs 10/15/23 Rx cyanocobalamin (vitamin B-12) 1,000 mcg PO DAILY 04/26/25 04/26/25 History 1,000 mcg capsule empagliflozin 25 mg tablet 25 mg PO DAILY 04/26/25 04/26/25 History (Jardiance) midodrine 2.5 mg tablet 2.5 mg PO BID 04/26/25 04/26/25 History semaglutide 0.25 mg or 0.5 mg (2 0.25 mg subcut QWEEK 04/26/25 04/26/25 History mg/3 mL) subcutaneous pen injector (Ozempic) terbinafine HCl 250 mg tablet 250 mg PO DAILY 04/26/25 04/26/25 History Allergies Allergy/AdvReac Type Severity Reaction Status Date / Time No Known Drug Allergies Allergy Verified 10/08/23 18:17 Exam Constitutional Documenting provider has reviewed patient's vital signs: yes Common normals: no apparent distress, oriented x3 and alert General appearance: cooperative Nutritional appearance: overweight HENMT Common normals: normocephalic, hearing grossly normal bilaterally and moist oral mucous membranes Head and scalp: normocephalic Eye Common normals: PERRL Pupil: PERRL Neck & C-Spine Common normals: full ROM General: normal visual inspection Cervical spine: cervical spine tenderness C5, C6 and C7 Chest Common normals: inspection of chest normal Respiratory Common normals: normal respiratory effort, no retractions and no use of accessory muscles Back & Pelvis Thoracic spine/upper back: ROM limited, pain with ROM and thoracic spinal tenderness Lumbar spine/lower back: ROM limited, pain with ROM, lumbar spinal tenderness, straight leg raise positive right and straight leg raise positive left Sacroiliac joints: SI joint(s) abnormal Other: diffuse hyperalgesia, does have significant diffuse pain right > left sij positive delilah(patricks), gaenslens, thigh thrust, compression test Neuro Common normals: oriented x3 Sensorium/orientation: alert Psych Common normals: mental status grossly normal, thought process normal, cooperative, affect normal, speech normal and activity/motor behavior normal Speech: normal speech Thought process: normal thought process Results Imaging lumbar MRI: Attestation: I have reviewed the pertinent imaging results. Radiologist's impression: T12-L1: Broad-based disc bulge with facet arthropathy. Mild neural from narrowing. Canal is minimally narrowed. L1-L2: Mild facet arthropathy right greater than left. Trace left facet joint effusion. No focal disc protrusion. Canal and foramina otherwise patent. L2-3: Broad-based disc bulge with facet arthropathy. Vtap-fz-dqfssjpc bilateral neural from narrowing. Minor canal stenosis. L3-4: Disc desiccation with broad-based left extraforaminal zone bulge.. Evidence of facet arthropathy. Right foramen and canal patent. Mild left foraminal narrowing. L4-5: Circumferential disc bulge with advanced facet arthropathy and ligamentum flavum hypertrophy. Trace facet joint effusions. There is moderate to severe central canal stenosis and moderate severe to severe subarticular recess encroachment upon the traversing L5 nerve roots. Moderate bilateral neural foraminal narrowing. L5-S1: Circumferential disc bulge with endplate osteophytosis and facet arthropathy. Moderate severe left greater than right neural from narrowing identified. Additional Findings Additional findings: If on a controlled substance or opioids, I have checked an [place] report on this patient and there are no aberrancies noted in the prescribing history.??If on a controlled substance or opioid a drug screen was completed and reviewed within the last year, and if there has not been a drug screen completed we ordered one today to monitor higher risk, state monitored pain medication use. As part of providing excellent, safe, comprehensive care, the following was completed at our patient's visit: 1. A medication reconciliation and review to ensure accurate knowledge of current/active medications, including asking our patients to inform us about any wshs-tes-kgqkiab medications or herbal remedies/nutritional supplements/alternative remedies. 2. A review to specifically ensure our patients have had annual screening for screening for depression, screening for tobacco use, and screening for unhealthy alcohol use. For concerning screenings had a discussion with the patient, provided patient education, and recommended follow-up with primary care provider when appropriate. If patient noted with a risk of falling, they received education on strength, gait, and balance training to prevent future risk of falling. Portions of this note may have been carried over from the previous visit and updated as appropriate. Please note this office utilizes paper charting in addition to the electronic medical record. A list of current medications, vitals, and PMH is available there as the clinical staff outside of myself do not have access to eduClipper charting during the clinic day operations. As part of providing quality comprehensive care the current medications, vitals, and PMH were reviewed in the paper chart. 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 Pt may not be surgical at this time based on physical exam, however I would like her to have the consultation prior to interventional therapy briefly discussed LDN, savella, and pregabalin for pain/fibromyalgia. at this time will trial pregabalin 50mg BID continue f/u with PCP for further evaluation and recommendations of alternative workup, recently completed bloodwork through PCP defer PT due to severe pain f/u 1 month to evaluate medication management
== END 2025-05-23 10:29 | disposition home or self-care (01) ==
LOC: PM 10:29
PROVIDERS: PCP Nurse Practitioner Family; Visit Provider Nurse Practitioner
DX: M48.062 Spinal stenosis, lumbar region with neurogenic claudication (principal); M53.2X6 Spinal instabilities, lumbar region; M51.360 Other intervertebral disc degeneration, lumbar region with discogenic back pain only; M54.2 Cervicalgia; M79.18 Myalgia, other site; Z51.81 Encounter for therapeutic drug level monitoring; M46.1 Sacroiliitis, not elsewhere classified
CPT/HCPCS: G0463

== ENCOUNTER 2025-06-20 10:10 | Outpatient (OUT) | payer MEDICARE, MEDICAID, SELFPAY ==
--- OUTSIDE RECORDS SUMMARY | 2025-06-06 14:15 | XMS_ITS | Encounter Summary ---
Author Organization [facility] tem Address [id number] [address] [place] [address] Care Team Providers Care News Videotape Editor Name Role Phone Joselito Ingramdavid [employer]MELTER SUPERVISOR [employer] Primary Care Provide r Reason for Visit * ReasonCommentsVaginal BleedingPatient presents for PMB. Encounter Details DateTypeDepartmentCare Team (Latest Contact Info)Kxoyfitflvt05/08/2025 2:15 PM EDTOffice Visit [facility] [place] [address] [place] [place] [address] Postmenopausal bleeding (Primary Dx); Flu vaccine need; Encounter for screening mammogram for malignant neoplasm of breast; Amenorrhea; Vasomotor symptoms due to menopause; Perimenopausal vasomotor symptoms Social History Tobacco UseTypesPacks/DayYears UsedDateSmoking Tobacco: NeverSmokeless Tobacco: NeverAlcohol UseStandard Drinks/WeekCommentsYes0 (1 standard drink = 0.6 oz pure alcohol)occasionalPHQ-2AnswerDate RecordedTotal Pdxbm5074ChildcareAnswer Date XxcfpahlCwcgnbhteTpwxkie68/23/2020EmploymentAnswerDate RecordedEmployment Vofksvm7403/21/2020Hunger ScreeningAnswerDate RecordedWithin the past 12 months we worried whether our food would run out before we got money to buy more.Never True06/06/2025Within the past 12 months the food we bought just didn't last and we didn't have money to get more.Never True06/06/2025Purpose - LifeAnswerDate RecordedPurpose and direction in yauvTbbddzc29/12/2021CommentsNoSex and Gender InformationValueDate RecordedSex Assigned at BirthNot on fileLegal Sex Qdwqmz0603/21/2020 1:58 PM EDTGender IdentityNot on fileSexual OrientationNot on filedocumented as of this encounter Last Filed Vital Signs Vital SignReadingTime TakenCommentsBlood Bdgcliry288/9610 2:11 PM EDT Pulse--Temperature--Respiratory Rate--Oxygen Saturation--Inhaled Oxygen Concentration--Sowrsi556.8 kg (242 lb)06/06/2025 2:11 PM EORTwbhhf680.5 cm (5' 2 )06/06/2025 2:11 PM EDTBody Mass Index44.261 2:11 PM EDTdocumented in this encounter Patient Instructions * Attachments The following attachments cannot be sent through Care Everywhere. * Bleeding After Menopause (Kinyarwanda) documented in this encounter Progress Notes * Naima Macedo, CHILD CARE CENTRE MANAGER-COILED COIL INSPECTOR - 06/06/2025 2:15 PM EDT Mariana Kelly is a 54 y.o.female. Patient's last menstrual period was 03/28/2020.. She presents for PMB. LMP was 15+ years ago. Patient stated last week she experienced dark brown vaginal discharge when wiping and pelvic cramping for 2 days. Patient stated those symptoms are no longer present. Patient reports hot flashes and night sweats, unsure if related to menopause. Current contraception:no method OB History 6 Para 5 Term 4 1 AB 1 Living 4 SAB 1 IAB Ectopic Multiple Live Births 4 MEDICAL HX Past Medical History: Diagnosis Date Diabetes mellitus ([facility]) Hypertension POTS (postural orthostatic tachycardia syndrome) Spinal stenosis SURGICAL HX History reviewed. No pertinent surgical history. FAMILY HX Family History Problem Relation Age of Onset Diabetes Paternal Grandfather Diabetes Paternal Grandmother Diabetes Maternal Grandmother Pancreatic cancer Maternal Grandmother Diabetes Maternal Grandfather Heart failure Maternal Grandfather Hypertension Father Hypertension Mother Lung cancer Mother Breast cancer Neg Hx MEDS Current Outpatient Medications Medication Sig Dispense Refill atorvastatin (LIPITOR) 10 mg tablet Take 1 tablet (10 mg total) by mouth in the morning. calcium carbonate-vitamin D3 (OSCAL 500 + D) 500 mg (1,250 mg) - 200 units per tablet Take 1 tabletby mouth in the morning and 1 tablet before bedtime. cyanocobalamin (VITAMIN B-12) 1,000 mcg/mL injection Inject 1 mL (1,000 mcg total) into the appropriate muscle every 28 days. fludrocortisone (FLORINEF) 0.1 mg tablet Take 1 tablet (0.1 mg total) by mouth in the morning. gemfibroziL (LOPID) 600 mg tablet Take 1 tablet (600 mg total) by mouth in the morning and 1 tablet(600 mg total) before bedtime. JARDIANCE 10 mg tablet tablet Take 1 tablet (10 mg total) by mouth in the morning. metoprolol tartrate (LOPRESSOR) 25 mg tablet Take 1 tablet (25 mg total) by mouth in the morning and 1 tablet (25 mg total) before bedtime. ondansetron (ZOFRAN) 8 mg tablet Take 1 tablet (8 mg total) by mouth every 8 (eight) hours as needed. ondansetron ODT (ZOFRAN ODT) 4 mg disintegrating tablet Dissolve 1 tablet (4 mg total) on tongue inthe morning and 1 tablet (4 mg total) at noon and 1 tablet (4 mg total) before bedtime. pantoprazole (PROTONIX) 20 mg EC tablet Take 1 tablet (20 mg total) by mouth every morning before breakfast. rimegepant (NURTEC ODT) 75 mg disintegrating tablet Dissolve 1 tablet (75 mg total) on tongue as needed. semaglutide (OZEMPIC) 0.25 mg or 0.5 mg (2 mg/3 mL) pen injector INJECT 0.25mg SUBCUTANEOUSLY (UNDER THE SKIN) ONCE A WEEK terbinafine (LamISIL) 250 mg tablet Take 1 tablet (250 mg total) by mouth in the morning. tiZANidine (ZANAFLEX) 4 mg tablet Take 1 tablet (4 mg total) by mouth every 8 (eight) hours as needed. topiramate (TOPAMAX) 25 mg tablet Take 1 tablet (25 mg total) by mouth in the morning. amitriptyline (ELAVIL) 25 mg tablet Take 1 tablet (25 mg total) by mouth nightly. (Patient not taking: Reported on 06/06/2025) cetirizine (ZyrTEC) 10 mg tablet Take 1 tablet (10 mg total) by mouth in the morning. (Patient not taking: Reported on 06/06/2025) DULoxetine (CYMBALTA) 60 mg capsule Take 1 capsule (60 mg total) by mouth in the morning and 1 capsule (60 mg total) before bedtime. (Patient not taking: Reported on 06/06/2025) ESGIC 50-325-40 mg per tablet Take 1 tablet by mouth every 4 (four) hours as needed for migraine. (Patient not taking: Reported on 06/06/2025) gabapentin (NEURONTIN) 300 mg capsule Take 1 capsule (300 mg total) by mouth 3 (three) times a day.(Patient not taking: Reported on 06/06/2025) hydrOXYzine (ATARAX) 50 mg tablet Take 1 tablet (50 mg total) by mouth every 8 (eight) hours as needed. (Patient not taking: Reported on 06/06/2025) Immunization, In Clinic, once. Sign this order to satisfy the OSBOP Positive ID requirements for immunization orders. lisinopriL (PRINIVIL,ZESTRIL) 20 mg tablet Take 1 tablet (20 mg total) by mouth in the morning. (Patient not taking: Reported on 06/06/2025) spironolactone (ALDACTONE) 100 mg tablet Take 1 tablet (100 mg total) by mouth in the morning. (Patient not taking: Reported on 06/06/2025) TRULICITY 3 mg/0.5 mL pen injector Inject 1 mg under the skin once a week. (Patient not taking: Reported on 06/06/2025) No current facility-administered medications for this visit. ALLERGIES No Known Allergies Patient was offered a medical wig dresser and declined. Review of Systems Review of Systems Constitutional: Negative. Respiratory: Negative. Cardiovascular: Negative. Gastrointestinal: Negative. Genitourinary: Positive for vaginal bleeding. Neurological: Negative. Psychiatric/Behavioral: Negative. Objective BP (!) 170/96 Ht 157.5 cm (5' 2 ) Wt 109.8 kg (242 lb) LMP 03/28/2020 BMI 44.26 kg/m?? Physical Exam Vitals and nursing note reviewed. Constitutional: Appearance: Normal appearance. Pulmonary: Effort: Pulmonary effort is normal. Genitourinary: General: Normal vulva. Labia: Right: No rash or lesion. Left: No rash or lesion. Vagina: Normal. No bleeding. Cervix: Normal. No cervical bleeding. Musculoskeletal: General: Normal range of motion. Skin: General: Skin is warm and dry. Neurological: Mental Status: She is alert and oriented to person, place, and time. Psychiatric: Mood and Affect: Mood normal. Speech: Speech normal. Behavior: Behavior normal. Thought Content: Thought content normal. Judgment: Judgment normal. Assessment/Plan: Mariana was seen today for vaginal bleeding. Diagnoses and all orders for this visit: Postmenopausal bleeding - Ultrasound pelvic with transvaginal; Future - Estradiol; Future - Estrone, S; Future - Progesterone; Future - Testosterone, Total and Free, S; Future - Sex hormone binding globulin; Future - Vitamin D 25 hydroxy; Future - DHEA-sulfate; Future - Cortisol; Future Flu vaccine need - Flucelvax vaccine 6m+ YRS plus Preservative Free IM Encounter for screening mammogram for malignant neoplasm of breast - Mammography screening bilateral with CAD; Future Amenorrhea - Estradiol; Future - Estrone, S; Future - Progesterone; Future - Testosterone, Total and Free, S; Future - Sex hormone binding globulin; Future - Vitamin D 25 hydroxy; Future - DHEA-sulfate; Future - Cortisol; Future Vasomotor symptoms due to menopause Perimenopausal vasomotor symptoms - Estradiol; Future - Estrone, S; Future - Progesterone; Future - Testosterone, Total and Free, S; Future - Sex hormone binding globulin; Future - Vitamin D 25 hydroxy; Future - DHEA-sulfate; Future - Cortisol; Future Await labs and ultrasound. Follow up as indicated. Discussed the possibility of endometrial biopsy. All questions answered. Educational material provided through [employer]. RTO for annual (due now) or sooner as needed. CEDRIC Cooley APRN-CNP Lisa M Krotzer, APRN-CNP 06/06/25 1544 documented in this encounter Plan of Treatment DateTypeDepartmentCare Team (Latest Contact Info)Ugtbmzvuxes52/27/2025 1:00 PM EDTAppointment [facility] - [facility]ound [address] [place] [address] Naima Macedo, CHILD CARE CENTRE MANAGER-COILED COIL INSPECTOR [address] [place] [address] 06/25/2025 2:00 PM EDTHospital Encounter [facility] - Mammography/DEXA Imaging [address] [place] [address] Naima Macedo, CHILD CARE CENTRE MANAGER-COILED COIL INSPECTOR [address] [place] [address] 06/26/2025 9:30 AM EDTOffice Visit [facility] [place] [address] [place] [address] NameTypePriorityAssociated DiagnosesOrder ScheduleUltrasound pelvic with transvaginalImagingRoutine Postmenopausal bleeding Expected: 06/06/2025, Expires: 06/06/2026Mammography screening bilateral with CADImagingRoutine Encounter for screening mammogram for malignant neoplasm of breast Expected: 06/06/2025, Expires: 08/04/2026EstradiolLabRoutine Postmenopausal bleeding Amenorrhea Perimenopausal vasomotor symptoms 1 Occurrences starting 06/06/2025 until 06/06/2026Estrone, SLabRoutine Postmenopausal bleeding Amenorrhea Perimenopausal vasomotor symptoms 1 Occurrences starting 06/06/2025 until 06/06/2026ProgesteroneLabRoutine Postmenopausal bleeding Amenorrhea Perimenopausal vasomotor symptoms 1 Occurrences starting 06/06/2025 until 06/06/2026Testosterone, Total and Free, SLabRoutine Postmenopausal bleeding Amenorrhea Perimenopausal vasomotor symptoms 1 Occurrences starting 06/06/2025 until 06/06/2026Sex hormone binding globulin LabRoutine Postmenopausal bleeding Amenorrhea Perimenopausal vasomotor symptoms 1 Occurrences starting 06/06/2025 until 06/06/2026Vitamin D 25 hydroxyLabRoutine Postmenopausal bleeding Amenorrhea Perimenopausal vasomotor symptoms 1 Occurrences starting 06/06/2025 until 06/06/2026DHEA-sulfateLabRoutine Postmenopausal bleeding Amenorrhea Perimenopausal vasomotor symptoms 1 Occurrences starting 06/06/2025 until 06/06/2026ortisolLabRoutine Postmenopausal bleeding Amenorrhea Perimenopausal vasomotor symptoms 1 Occurrences starting 06/06/2025 until 06/06/2026documented as of this encounter Visit Diagnoses Diagnosis Postmenopausal bleeding- Primary Flu vaccine need Encounter for screening mammogram for malignant neoplasm of breast Amenorrhea Absence of menstruation Vasomotor symptoms due to menopause Perimenopausal vasomotor symptoms documented in this encounter Additional Health Concerns AssessmentNoted TimePHQ-9 Depression Total Score: 10:25 AM EDTA Body Mass Index follow-up plan has been documented for the hjfmaxy1801/19/2024 3:37 PM EDTdocumented as of this encounter Care Teams Team MemberRelationshipSpecialtyStart DateEnd Date Ellie Ingram APRN-SOBEIDA [address] [place], [place] [address] [address] PCP - GeneralFamily Medicine09/22/24documented as of this encounter
--- OUTSIDE RECORDS SUMMARY | 2025-06-20 10:14 | XMS_ITS | Encounter Summary ---
Author Organization [facility] Address [address] [place] [address] Care Team Providers Care Engineer Of System Development Name Role Phone Unavailable Primary Care Provider Unavailabl e Encounter Details DateTypeDepartmentCare Team (Latest Contact Info)Whgzgocrfxx57/29/2025Telephone [facility] [address] [place] [address] [address], [address] [place] [id number] Radha To MA Social History Tobacco UseTypesPacks/DayYears UsedDateSmoking Tobacco: Never Assessed CommentsUnknownSex and Gender InformationValueDate RecordedSex Assigned at Not on fileLegal KvsProwla20/29/2025 2:14 PM EDTGender IdentityNot on fileSexual OrientationNot on filedocumented as of this encounter Plan of Treatment Not on file documented as of this encounter Visit Diagnoses Not on filedocumented in this encounter
--- OUTSIDE RECORDS SUMMARY | 2025-06-20 10:14 | XMS_ITS | Clinical Summary ---
Author Organization [facility] Address [address] [place] [address] Care Team Providers Care [employer] Officer Name Role Phone Ellie Ingram NP Unavailable [phone] Rancho Hernandez MD Primary Care Provider Allergies No known active allergies Medications MedicationSigDispense QuantityRefillsLast FilledStart DateEnd DateStatus midodrine (Proamatine) 2.5 MG tablet Take 2.5 mg by mouth in the morning and 2.5 mg in the evening and 2.5 mg before bedtime.Active pskfqlmrim-malhihbffcpif-dmlxuhsm 50-325-40 MG tablet Take 1 tablet by mouth every 4 (four) hours if needed for headachesActive empagliflozin (Jardiance) 25 MG Take 25 mg by mouth DailyActive metoprolol tartrate (Lopressor) 25 MG tablet Take 25 mg by mouth in the morning and 25 mg before bedtime.Active pantoprazole (ProtoNix) 20 MG EC tablet Take 20 mg by mouth in the morning. Take before meals. Do not crush, chew, or split.Active fludrocortisone (Florinef) 0.1 MG tablet Take by mouthActive terbinafine (LamISIL) 250 MG tablet Indications:OnychomycosisTake 1 tablet (250 mg) by mouth Daily 90 tablet 5Active Ozempic, 0.25 or 0.5 MG/DOSE, 2 MG/3ML solution pen-injector INJECT 0.25mg SUBCUTANEOUSLY (UNDER THE SKIN) ONCE A WEEK5Active Calcium Carb-Cholecalciferol (Oyster Shell Calcium w/D) 500-5 MG-MCG tablet Take 1 tablet by mouth in the morning and 1 tablet before bedtime.Active cyanocobalamin (Vitamin B-12) 1000 MCG/ML injection Inject 1,000 mcg into the shoulder, thigh, or buttocks every 28 (twenty-eight) days5Active topiramate 50 MG tablet Indications:Primary insomniaTake 50 mg by mouth Daily If medication is ineffective x 3 days then may increase to 100mg-2tabs 90 tablet ctive tiZANidine (Zanaflex) 4 MG capsule Indications:Primary osteoarthritis involving multiple jointsTake 1 capsule (4 mg) by mouth in the morning and 1 capsule (4 mg) in the evening and 1 capsule (4 mg) before bedtime. 90 capsule 5Active ondansetron (Zofran) 8 MG tablet Indications:NauseaTake 1 tablet (8 mg) by mouth every 8 (eight) hours if needed for nausea or vomiting 20 tablet 5Active Rimegepant Sulfate (Nurtec) 75 MG tablet dispersible Indications:Intractable migraine with aura with status migrainosusTake 75 mg by mouth Daily as needed (Migraines) 16 tablet /tive gemfibrozil (Lopid) 600 MG tablet Indications:Elevated LDL cholesterol levelTake 1 tablet (600 mg) by mouth in the morning and 1 tablet (600 mg) before bedtime. 180 tablet ctive methylPREDNISolone (Medrol Dospak) 4 MG tablets Indications:PainFollow schedule on package instructions 21 tablet Discontinued(Other)Hospital, Clinic, or Other Facility Administered MedicationOrdered DoseRouteFrequencyStart DateEnd DateStatus triamcinolone acetonide (Kenalog-40) injection 40 mg Indications:Intractable migraine with aura with status whuktmabina31 mgIMOnce Ended orphenadrine (Norflex) injection 60 mg Indications:Intractable migraine with aura with status sqouizditpt04 mgIMOnce Ended triamcinolone acetonide (Kenalog-40) injection 40 mg Indications:Intractable migraine with aura with status migrainosus,Nausea,Pain40 lpYXWwor31/02/345662/09/2024Ended orphenadrine (Norflex) injection 60 mg Indications:Intractable migraine with aura with status migrainosus,Nausea,Pain60 zoQQFwuw84/02/610357/09/2024Ended Active Problems No known active problems Encounters DateTypeDepartmentCare SuzvQyqbquytxfv98/20/2025bstract [facility] [address] [place] [address] Rancho Hernandez MD 06/14/2025bstract [facility] [address] [place] [address] Rancho Hernandez MD 06/04/2025bstract [facility] [address] [place] [phone] Unallocated, Noms MD Lisy 06/04/2025bstract [facility] [address] [place] [address] Unallocated, Noms MD Lisy 05/31/2025 3:45 PM EDTClinical Support [facility] [address] [facility] [address] [place] [address] Anamika Gunter NP Intractable migraine with aura with status migrainosus; Nausea; Pain05/31/20250788Imcoiz66/01/2025Telephone [facility] [address] [place] [address] Anamika Gunter NP 05/22/2025 10:00 AM EDTOffice Visit [facility] [address] [place] [address] Anamika Gunter NP Intractable migraine with aura with status migrainosus (Primary Dx); Elevated LDL cholesterol level05/22/2025bstract [facility] [address] [place] [address] Rancho Hernandez MD 05/22/20256653Jdzewv21/16/2025Results Follow-Up [facility] [address] [place] [address] CBC, Comprehensive metabolic panel, Lipid panel, Additional followed-up results: bstract [facility] [address] [facility] [address] [place] [address] Unallocated, Rae Wasserman MD 05/10/2025Telephone [facility] [address] [facility] [address] [place] [address] Anamika Gunter NP 05/08/2025 10:00 AM EDTOffice Visit [facility] [address] [facility] [address] [place] [address] Anamika Gunter NP Primary insomnia (Primary Dx); Lipid screening; Primary hypertension ; Acquired hypothyroidism ; Other depression ; Stage 1 chronic kidney disease; Primary osteoarthritis involving multiple joints; Weight gain; Pain; Pain in other joint; Acute non-recurrent frontal sinusitis; Morbid (severe) obesity due to excess calories ([facility]); Obesity, class 3; Body mass index (BMI) 45.0-49.9, adult ([facility]); Major depressive disorder, single episode, in full gpvvcurcp66/09/2025amboo flowsheet [facility] [address] [facility] [address] [place] [address] Anamika Gunter NP 05/08/20257332Bedvsq45/03/2025 3:00 PM EDTOffice Visit [facility] [address] [place] [phone] Alexis Grace DPM Plantar wart (Primary Dx)05/02/2025amboo flowsheet [facility] [address] [place] [phone] Alexis Grace DPM 05/02/20258458Ehuddu55/02/4100Smuvtx15/21/2025bstract [facility] [address] [place] [phone] Unallocated, Rae Wasserman MD 04/06/2025Results Follow-Up [facility] [address] [place] [phone] Alexis Grace DPM ALT, AST04/04/2025Telephone [facility] [address] [place] [address] Alexis Grace DPM 03/28/2025 2:30 PM EDTOffice Visit [facility] [address] [place] [phone] Alexis Grace DPM Onychomycosis (Primary Dx); Right foot pain; Plantar wart; Left foot pain03/28/2025amboo flowsheet [facility] [address] [place] [phone] Alexis Grace DPM 03/28/20251280Hnzftd93/29/2025Travelfrom Last 3 Months Immunizations ImmunizationAdministration DatesNext DueInfluenza, Wmhzwgpnirx69/16/2021 Family History RelationNameStatusCommentsFatherAliveMotherDeceased Social History Tobacco UseTypesPacks/DayYears UsedDateSmoking Tobacco: NeverPassive Smoke Exposure: NeverSmokeless Tobacco: Never Tobacco Cessation:Counseling Given: Yes Alcohol UseStandard Drinks/WeekCommentsYes1 (1 standard drink = 0.6 oz pure alcohol)PHQ-2AnswerDate RecordedPatient Health Questionnaire-2 Ldpqj102 CommentsUnknownSex and Gender InformationValueDate RecordedSex Assigned at BirthNot on fileLegal HpzSiufwv91/15/2023 11:06 PM EDTGender IdentityNot on fileSexual OrientationNot on file Last Filed Vital Signs Vital SignReadingTime TakenCommentsBlood Xmvjhqba067/8409/ 9:55 AM EDT Ghvww290405/22/2025 9:55 AM EDTTemperature--Respiratory Dvgb927005/22/2025 9:55 AM EDTOxygen Kfymdjmiqg70%05/22/2025 9:55 AM EDTInhaled Oxygen Concentration-- Hikjdy409 kg (246 lb)05/22/2025 9:55 AM ECESsgogp393.5 cm (5' 2 )05/22/2025 9:55 AM EDTBody Mass Index44.9905/22/2025 9:55 AM EDT Plan of Treatment DateTypeDepartmentCare Team (Latest Contact Info)Fbiteswfffa25/03/2025 3:00 PM ESTOffice Visit [facility] [address] [place] [phone] Alexis Grace DPM [address] [place], [place] [phone] 11/06/2025 10:00 AM EDTOffice Visit [facility] [address] [facility] [address] [place] [phone] Anamika Gunter, MAGAZINE EDITOR [address] [place] [address] Health MaintenanceDue DateLast DoneCommentsCT Hxmntombckxo30/15/1972Colonoscopy 1971Colorectal Cancer Hfmoobckr85/15/1972FIT-DNA1971FIT1971 FOBT1971 2031Xsmoqozcfpzba40/15/1972Pap Smear11/11/1992Cervical Cancer Rnvmgplls98/15/2002HPV/Ddawxy2711/11/20019849Belshvmty58/05/202405/12/2022Influenza YchnzkiHuotpmuiu71/08/2025, 05/15/2021 Procedures Procedure NamePriorityDate/TimeAssociated DiagnosisCommentsRHEUMATOID ARTHRITIS DIAGNOSTIC PANEL 2Ermqwqb56/10/2025 8:28 AM EDT Primary osteoarthritis involving multiple joints Pain Pain in other joint CORTISOL, EFSLCGneesdn40/10/2025 8:28 AM EDT Weight gain Pain IOQWxstduc93/10/2025 8:28 AM EDT Acquired hypothyroidism LIPID ZWBWPIvqqlxo36/10/2025 8:28 AM EDT Lipid screening COMPREHENSIVE METABOLIC AFOYBPnwvcpd56/10/2025 8:28 AM EDT Primary hypertension PBTYrkevtn11/10/2025 8:28 AM EDT Primary hypertension POCT GLYCOSYLATED HEMOGLOBIN (HGB A1C)Tcxdvhk5905/08/2025 10:44 AM EDT Stage 1 chronic kidney disease Weight gain SNNIkacmvs61/07/2025 3:08 PM EDT Onychomycosis PEIEdsiuun47/07/2025 3:08 PM EDT Onychomycosis from Last 3 Months Results * (ABNORMAL) RHEUMATOID ARTHRITIS DIAGNOSTIC PANEL 3 (05/09/2025 8:28 AM EDT) ComponentValueRef RangeTest MethodAnalysis TimePerformed AtPathologist SignatureRHEUMATOID FACTOR (IGG)<5<=6 UQUESTRHEUMATOID FACTOR (IGA)<5<=6 U QUESTRHEUMATOID FACTOR (IGM)10(H)<=6 UQUESTCYCLIC CITRULLINATED PEPTIDE (CCP) AB (IGG)<16<20 UnitsQUESTComment: Negative: <20 Weak Positive: ?20 - 39 Moderate Positive: ?40 - 59 Strong Positive: >59 SJOGREN'S ANTIBODY (SS-A)<1.0AIQUESTComment: ? Reference Range: < 1.0 NEG AI SJOGREN'S ANTIBODY (SS-B)<1.0AIQUESTComment: ? Reference Range: < 1.0 NEG AI Specimen (Source)Anatomical Location / LateralityCollection Method / Volume Collection TimeReceived Time05/09/2025 8:28 AM EDT05/09/2025 3:28 PM EDT Narrative [facility] - 05/13/2025 2:23 AM EDT FASTING:NO FASTING: NO Resulting Agency Comment Performing Organization Information ?Site ID: AMD ?Name: [facility] [place] ?Address: [address] [place] [address] [address] [place], [place] ?Director: Vineet Ji M.D.,PhD Authorizing ProviderResult TypeResult StatusAnamika Gunter NPLAB BLOOD ORDERABLESFinal ResultPerforming OrganizationAddressCity/State/ZIP CodePhone Number [facility] * (ABNORMAL) CBC (05/09/2025 8:28 AM EDT)ComponentValueRef RangeTest Method Analysis TimePerformed AtPathologist SignatureWHITE BLOOD CELL COUNT11.9(H)3.8 - 10.8 Thousand/uLQUESTRED BLOOD CELL COUNT4.813.80 - 5.10 Million/uLQUEST FFBSIWMGOL43.611.7 - 15.5 g/fHXFMXQRLGCFCGVXV25.935.0 - 45.0 %UIZXRGKE22.380.0 - 100.0 xKQMZSVKQI61.427.0 - 33.0 cgKVDSIDGJE23.332.0 - 36.0 g/dLQUESTComment: For adults, a slight decrease in the calculated MCHC value (in the range of 30 to 32 g/dL) is most likely not clinically significant; however, it should be interpreted with caution in correlation with other red cell parameters and the patient's clinical condition. RDW13.611.0 - 15.0 %QUESTPLATELET VAGPC292(H)140 - 400 Thousand/uLQUESTMPV9.57.5 - 12.5 fLQUESTSpecimen (Source)Anatomical Location / LateralityCollection Method / VolumeCollection TimeReceived TimeBloodVenous blood specimen / Unknown 05/09/2025 8:28 AM EDT05/09/2025 3:28 PM EDT Narrative [facility] - 05/13/2025 2:23 AM EDT FASTING:NO FASTING: NO Resulting Agency Comment Performing Organization Information ?Site ID: [id number] ?[facility] ?Address: [address] [place] [address] ?Director: Monique Cano Authorizing ProviderResult TypeResult StatusAnamika Gunter NPLAB BLOOD ORDERABLESFinal ResultPerforming OrganizationAddressCity/State/ZIP CodePhone Number [facility] * TSH (05/09/2025 8:28 AM EDT)ComponentValueRef RangeTest MethodAnalysis Time Performed AtPathologist SignatureTSH0.64mIU/LQUESTComment: ?Reference Range ? > or = 20 Years 0.40-4.50 ? Ranges ?First trimester ?0.26-2.66 ?Second trimester ?? 0.55-2.73 ?Third trimester ?0.43-2.91 Specimen (Source)Anatomical Location / LateralityCollection Method / Volume Collection TimeReceived TimeBloodVenous blood specimen / Aijhvwc5405/09/2025 8:28 AM EDT05/09/2025 3:28 PM EDT Narrative [facility] - 05/13/2025 2:23 AM EDT FASTING:NO FASTING: NO Resulting Agency Comment Performing Organization Information ?Site ID: QPT ?Name: [facility] ?Address: [address] [place] [address], [address] [place] [phone] ?Director: Herb Andujar MD Authorizing ProviderResult TypeResult Dakotah Gunter NPLAB BLOOD ORDERABLESFinal ResultPerforming OrganizationAddJeanes Hospitalty/[facility]/ZIP CodePhone Number [facility] * (ABNORMAL) Cortisol (05/09/2025 8:28 AM EDT)ComponentValueRef RangeTest Method Analysis TimePerformed AtPathologist SignatureCORTISOL, TOTAL1.9(L)mcg/dLQUEST Comment: The Cortisol result may be decreased on average 10-20% relative to results previously obtained with this method due to a recent quality improvement made in March 2025 by the reagent coat finisher. Reference Range: For 8 a.m.(7-9 a.m.) Specimen: 4.0-22.0 Reference Range: For 4 p.m.(3-5 p.m.) Specimen: 3.0-17.0 ??* Please interpret above results accordingly * Specimen (Source)Anatomical Location / LateralityCollection Method / Volume Collection TimeReceived TimeBloodVenous blood specimen / Riqpjes1405/09/2025 8:28 AM EDT05/09/2025 3:28 PM EDT Narrative [facility] - 05/13/2025 2:23 AM EDT FASTING:NO FASTING: NO Resulting Agency Comment Performing Organization Information ?Site ID: QPT ?Name: [facility] ?Address: [address] [place] [phone] ?Director: Herb Andujar MD Authorizing ProviderResult TypeResult StatusAnamika Gunter LAB BLOOD ORDERABLESFinal ResultPerforming OrganizationAddressCity/State/ZIP CodePhone Number [facility] * (ABNORMAL) Lipid panel (05/09/2025 8:28 AM EDT)ComponentValueRef RangeTest MethodAnalysis TimePerformed AtPathologist SignatureCHOLESTEROL, MIUAW375(H) <200 mg/dLQUESTHDL AUFRSXYNBYW21> OR = 50 mg/rLPVNBKFYZDQDEXUYYUB585(H)<150 mg/dLQUESTLDL QRCSJSZLKMK951(H)mg/dL (calc)QUESTComment: Reference range: <100 Desirable range <100 mg/dL for primary prevention; <70 mg/dL for patients with CHD or diabetic patients with > or = 2 CHD risk factors. LDL-C is now calculated using the Wali-Harshad calculation, which is a validated novel method providing better accuracy than the Friedewald equation in the estimation of LDL-C. Wali SS et al. [place]. 2013;310(19): 4071-0200 (http://education.ViFlux.flexReceipts/faq/AQG538) CHOL/HDLC RATIO3.7<5.0 (calc)QUESTNON HDL XBVFWNQIIQO892(H)<130 mg/dL (calc) QUESTComment: For patients with diabetes plus 1 major ASCVD risk factor, treating to a non-HDL-C goal of <100 mg/dL (LDL-C of <70 mg/dL) is considered a therapeutic option. Specimen (Source)Anatomical Location / LateralityCollection Method / Volume Collection TimeReceived TimeBloodVenous blood specimen / Bpuxtta1305/09/2025 8:28 AM EDT05/09/2025 3:28 PM EDT Narrative [facility] - 05/13/2025 2:23 AM EDT FASTING:NO FASTING: NO Resulting Agency Comment Performing Organization Information ?Site ID: QPT ?Name: [facility] ?Address: [address] [place] [address], [address] [place] [phone] ?Director: Herb Andujar MD Authorizing ProviderResult TypeResult StatusAnamika Gunter NPLAB BLOOD ORDERABLESFinal ResultPerforming OrganizationAddressCity/State/ZIP CodePhone Number [facility] * Comprehensive metabolic panel (05/09/2025 8:28 AM EDT)ComponentValueRef Range Test MethodAnalysis TimePerformed AtPathologist QwyrggaeiYjdziwg04816 - 139 mg/dLQUESTComment: ? Non-fasting reference interval For someone without known diabetes, a glucose value between 100 and 125 mg/dL is consistent with prediabetes and should be confirmed with a follow-up test. TRO319 - 25 mg/dLQUESTCreatinine0.760.50 - 1.03 mg/gIPXQOCZFBW88> OR = 60 mL/min/1.41m4DCNSMTNP/CREATININE RATIOSEE NOTE: (calc)QUESTComment: ?? Not Reported: BUN and Creatinine are within ?? reference range. ? Xrzqwc983017 - 146 mmol/LQUESTPotassium, Bld4.43.5 - 5.3 mmol/UOHTZIAubaymjg235 98 - 110 mmol/LQUESTCarbon Hedpwfw4457 - 32 mmol/HYLKZGEgbotur09.08.6 - 10.4 mg/dLQUESTPROTEIN, TOTAL6.86.1 - 8.1 g/dLQUESTALBUMIN4.23.6 - 5.1 g/dLQUEST GLOBULIN2.61.9 - 3.7 g/dL (calc)QUESTALBUMIN/GLOBULIN RATIO1.61.0 - 2.5 (calc) QUESTBILIRUBIN, TOTAL0.40.2 - 1.2 mg/dLQUESTALKALINE ZGGUHKIMFSY31760 - 153 U/L WOEXOQRI2589 - 35 U/WKTOJWMNM304 - 29 U/LQUESTSpecimen (Source)Anatomical Location / LateralityCollection Method / VolumeCollection TimeReceived TimeBlood Venous blood specimen / Glmmlvw3305/09/2025 8:28 AM EDT05/09/2025 3:28 PM EDT Narrative [facility] - 05/13/2025 2:23 AM EDT FASTING:NO FASTING: NO Resulting Agency Comment Performing Organization Information ?Site ID: QTW ?[facility] ?Address: [address] [place] [phone] ?Director: Monique Cano Authorizing ProviderResult TypeResult Dakotah Gunter NPLAB BLOOD ORDERABLESFinal ResultPerforming OrganizationAddressCity/State/[facility] CodePhone Number [facility] * POCT glycosylated hemoglobin (Hb A1C) docked device (05/08/2025 10:44 AM EDT) ComponentValueRef RangeTest MethodAnalysis TimePerformed AtPathologist SignatureHemoglobin A1C5.2Specimen (Source)Anatomical Location / Laterality Collection Method / VolumeCollection TimeReceived TimeBloodVenous blood specimen / Megulai4905/08/2025 10:44 AM EDT Narrative Authorizing ProviderResult TypeResult Dakotah Gunter NPPOINT OF CARE TEST ENTER/EDIT ORDERABLESFinal Result * ALT (04/05/2025 3:08 PM EDT)ComponentValueRef RangeTest MethodAnalysis Time Performed AtPathologist ZqsxlhsrlZJX401 - 29 U/LQUESTSpecimen (Source) Anatomical Location / LateralityCollection Method / VolumeCollection Time Received TimeBloodVenous blood specimen / Wyslzhv5504/05/2025 3:08 PM EDT 04/05/2025 3:08 PM EDT Narrative Resulting Agency Comment Performing Organization Information ?Site ID: QPT ?Name: [facility] ?Address: [address] [place] [address], [address] [place] [phone] ?Director: Herb Andujar MD Authorizing ProviderResult TypeResult StatusAlexis Grace DPMLAB BLOOD ORDERABLESFinal ResultPerforming OrganizationAddressCity/State/ZIP CodePhone Number [facility] * AST (04/05/2025 3:08 PM EDT)ComponentValueRef RangeTest MethodAnalysis Time Performed AtPathologist BvchbcpfdEBI6601 - 35 U/LQUESTSpecimen (Source) Anatomical Location / LateralityCollection Method / VolumeCollection Time Received TimeBloodVenous blood specimen / Kjrychj7404/05/2025 3:08 PM EDT 04/05/2025 3:08 PM EDT Narrative Resulting Agency Comment Performing Organization Information ?Site ID: QPT ?Name: [facility] ?Address: [address] [place] [address], [address] [place] [phone] ?Director: Herb Andujar MD Authorizing ProviderResult TypeResult StatusAlexis Grace DPMLAB BLOOD ORDERABLESFinal ResultPerforming OrganizationAddressCity/State/ZIP CodePhone Number [facility] from Last 3 Months Insurance Care Teams Team MemberRelationshipSpecialtyStart DateEnd Rancho Hernandez MD [facility] [place] [address] [facility] - [facility] Ellie Ingram NP [address] [phone] Referring Omkpmkoht12/19/24
--- OUTSIDE RECORDS SUMMARY | 2025-06-20 10:14 | XMS_ITS | Clinical Summary ---
Author Organization [facility] Address [address] [place] [address] Care Team Providers Care Disaster Response Director Name Role Phone Unavailable Primary Care Provider Unavailabl e Encounters DateTypeDepartmentCare TbbcZnsdgkuyqwq54/29/2025Telephone [facility] Oncology [address], [address] [place] [address] Radha To MA 05/28/2025 - 05/28/2025 11:59 PM EDTHospital Encounter [facility] Radiology External Films [address] [place] [address] Discharge Disposition: Home or Self Care ()05/28/2025Orders Only [facility] Oncology [address], [address] [place] [address] Radha To MA from Last 3 Months Social History Tobacco UseTypesPacks/DayYears UsedDateSmoking Tobacco: Never Assessed CommentsUnknownSex and Gender InformationValueDate RecordedSex Assigned at Not on fileLegal BfpMmtolt35/29/2025 2:14 PM EDTGender IdentityNot on fileSexual OrientationNot on file Plan of Treatment Health MaintenanceDue DateLast DoneCommentsCT Yzlmhvgqzbdb27/15/1972Colonoscopy 1971Colorectal Cancer Yjgfuatgv64/15/1972Diabetes: Hemoglobin A1C 1971FIT-DNA1971FIT1971FOBT1971Medicare Annual Wellness (AWV)1971 8955Qxvptkcqhyupr65/15/1972Diabetes: Retinopathy Vdbrqqnxu36/15/1982 Depression Rpcamzqec10/15/1984Diabetes: Urine Protein Szvgisvgd76/15/1991 Hepatitis B Vaccines (1 of 3 - 19+ 3-dose series)11/11/1990Pap Smear11/11/1992 Adult Wrlenbv1711/11/1993Cervical Cancer Muwsjmkzn15/15/2002HPV/Hiehds9111/11/2001 Zoster Vaccines (1 of 2)11/11/20211351Wrhzgmidl67/05/202505/3COVID-19 Vaccine (3 - season)/03/2021, 05/15/2021Influenza VaccineCompleted 06/06/2025, 05/15/2021HIB VaccinesAged OutNo longer eligible based on patient's age to complete this topicHPV VaccinesAged OutNo longer eligible based on patient's age to complete this topicIPV VaccinesAged OutNo longer eligible based on patient's age to complete this topicMeningococcal B VaccineAged OutNo longer eligible based on patient's age to complete this topicMeningococcal VaccineAged OutNo longer eligible based on patient's age to complete this topicPneumococcal Vaccine: Pediatrics (0 to 5 Years) and At-Risk Patients (6 to 64 Years)Aged Out No longer eligible based on patient's age to complete this topicRotavirus VaccinesAged OutNo longer eligible based on patient's age to complete this topic Procedures Procedure NamePriorityDate/TimeAssociated DiagnosisCommentsXR TRANSFER OF OUTSIDE OKGUOKdxsukl55/29/2025 12:00 AM EDT from Last 3 Months Results * XR transfer of outside films (05/28/2025 12:00 AM EDT)Specimen (Source) Anatomical Location / LateralityCollection Method / VolumeCollection Time Received Time Narrative [facility] - 05/28/2025 2:17 PM EDT This order has been auto-finalized and does not contain a result. Authorizing ProviderResult TypeResult StatusJarek MARROQUIN XR PROCEDURES Final ResultPerforming OrganizationAddressCity/State/ZIP CodePhone Number [facility] from Last 3 Months Insurance
--- OUTSIDE RECORDS SUMMARY | 2025-06-20 10:15 | XMS_ITS | Encounter Summary ---
Author Organization [facility] Address [address] [place] [address] Care Team Providers Care Bus Info Consultant Name Role Phone Juan JoseEllie PEDIATRIC SPEECH LANGUAGE PATHOLOGIST Unavailable [phone] Rancho Hernandez MD Primary Care Provider [phone] Encounter Details DateTypeDepartmentCare Team (Latest Contact Info)Svkederricq80/16/2025bstract [facility] [address] [place] [phone] Rancho Hernandez MD [address] [place] [address] Social History Tobacco UseTypesPacks/DayYears UsedDateSmoking Tobacco: NeverPassive Smoke Exposure: NeverSmokeless Tobacco: NeverAlcohol UseStandard Drinks/WeekComments Yes1 (1 standard drink = 0.6 oz pure alcohol)PHQ-2AnswerDate RecordedPatient Health Questionnaire-2 Ttanx317CommentsUnknownSex and Gender InformationValueDate RecordedSex Assigned at BirthNot on fileLegal SexFemale 11/11/2022 11:06 PM EDTGender IdentityNot on fileSexual OrientationNot on file documented as of this encounter Plan of Treatment DateTypeDepartmentCare Team (Latest Contact Info)Allsloobdoo65/03/2025 3:00 PM ESTOffice Visit [facility] [address] [place] [phone] Alexis Grace, DPM [address] [facility] [place] [address] 11/06/2025 10:00 AM EDTOffice Visit [facility] [address] [place] [address] Anamika Gunter, PEDIATRIC SPEECH LANGUAGE PATHOLOGIST [address] [place] [address] documented as of this encounter Visit Diagnoses Not on filedocumented in this encounter Care Teams Team MemberRelationshipSpecialtyStart DateEnd Rancho Hernandez MD [address] [place] [address] PCP - GeneralFamily Medicine03/16/25 Ellie Ingram NP [address] [place] [address] Referring Rseygnycr52/19/24documented as of this encounter
--- OUTSIDE RECORDS SUMMARY | 2025-06-20 10:15 | XMS_ITS | Clinical Summary ---
Author Organization [facility] Address [address] [place] [address] Phone Care Team Providers Care General Engineer Name Role Phone Ellie Ingram PADDER-ENGINEERING RESEARCH MANAGER Primary Care Provider Dileep Ceja MD Unavailable [phone] Allergies No known active allergies Medications MedicationSigDispense QuantityRefillsLast FilledStart DateEnd DateStatus albuterol 90 mcg/actuation inhaler Inhale 2 puffs 4 times a day.Active Jardiance 25 mg Take 1 tablet (25 mg) by mouth early in the morning..07/12/2024ctive dulaglutide (TRULICITY SUBQ) Inject 4 mg under the skin 1 (one) time per week.10/25/2023ctive DULoxetine (Cymbalta) [address] capsule Take 1 capsule (60 mg) by mouth 2 times a day.Active hydrOXYzine HCL (Atarax) 25 mg tablet Take 1 tablet (25 mg) by mouth every 12 hours.09/04/2023ctive topiramate (Topamax) 25 mg tablet Take 3 tablets (75 mg) by mouth once daily at bedtime.Active tiZANidine (Zanaflex) 4 mg tablet Take 1 tablet (4 mg) by mouth 3 times a day as needed.Active ondansetron ODT (Zofran-ODT) 8 mg disintegrating tablet Dissolve 1 tablet (8 mg) in the mouth every 8 hours if needed.06/22/2024ctive pantoprazole (ProtoNix) 20 mg EC tablet Take 1 tablet (20 mg) by mouth once daily.Active gabapentin (Neurontin) 400 mg capsule Take 1 capsule (400 mg) by mouth every 8 hours.Active cetirizine (ZyrTEC) 10 mg tablet Take 1 tablet (10 mg) by mouth once daily.Active Oysco 500/D 500 mg-5 mcg (200 unit) tablet Take 1 tablet by mouth every 12 hours.4Active Esgic 50-325-40 mg tablet Take 1 tablet by mouth every 4 hours if needed.Active metoprolol tartrate (Lopressor) 25 mg tablet Indications:Postural dizziness with near syncopeTake 1 tablet (25 mg) by mouth 2 times daily (morning and late afternoon). 180 tablet 3:57 PM EDT5Active midodrine (Proamatine) 2.5 mg tablet Indications:Postural dizziness with near syncopeTake 1 tablet (2.5 mg) by mouth 3 times daily (morning, midday, late afternoon). 90 tablet 3:25 PM EDT6Active atorvastatin (Lipitor) 10 mg tablet Take 1 tablet (10 mg) by mouth once daily.5Active Active Problems ProblemNoted DateDiagnosed DateLumbosacral spondylosis without myelopathy 02/01/2024Lumbar zleuolxwrmx96/01/2022pinal stenosis of lumbar region without neurogenic /01/2022egenerative lumbar disc12/10/2021 Encounters DateTypeDepartmentCare LcgnIhkxrvwaruo99/02/2025 1:15 PM EDTOffice Visit [facility] Medical Office [address] [phone] Dileep Ceja MD Postural dizziness with near syncope Discharge Disposition: Home05/31/2025Travelfrom Last 3 Months Social History Tobacco UseTypesPacks/DayYears UsedDateSmoking Tobacco: NeverSmokeless Tobacco: Never Tobacco Cessation:Counseling Given: Not Answered Alcohol UseStandard Drinks/WeekCommentsNever0 (1 standard drink = 0.6 oz pure alcohol)CommentsUnknownSex and Gender InformationValueDate RecordedSex Assigned at BirthNot on fileLegal ZuhHwljxg90/19/2024 5:04 PM ESTGender Identity Not on fileSexual OrientationNot on file Last Filed Vital Signs Vital SignReadingTime TakenCommentsBlood Cwckjcbf882/7610 1:27 PM EDT Uryqf0971 1:27 PM EDTTemperature--Respiratory Rate--Oxygen Zimqvzzfuk39% 11/16/2024 11:01 AM EDTInhaled Oxygen Concentration--Oxhdnx932 kg (242 lb 12.8 oz)05/31/2025 1:27 PM KNZAwjfbd140.5 cm (5' 2 )05/31/2025 1:27 PM EDTBody Mass Index44.411 1:27 PM EDT Plan of Treatment DateTypeDepartmentCare Team (Latest Contact Info)Zzmbkdiejiq31/02/2026 1:30 PM EDTOffice Visit [facility] Medical Office [address] [place] [phone] [place] [address], [facility] [address] [place] [address] Health MaintenanceDue DateLast DoneCommentsCT Jttndovexhtv48/15/1972Colonoscopy 1971Colorectal Cancer Fsfpvtzef98/15/1972FIT-DNA (Cologuard)1971FIT 1971HIV Buhtgovcm10/15/1537Ooryyzywlnhgu76/15/1972Welcome to Medicare Visit1971MMR Vaccines (1 of 1 - Standard series)11/11/1972Diabetes Dzrytawfe58/15/1990Hepatitis C Upopyybog98/15/1990Hepatitis B Vaccines (1 of 3 - 19+ 3-dose series)11/11/1990Pneumococcal Vaccine (1 of 2 - PCV)11/11/1990 Cervical Cancer Yibjzdmua30/15/1993HPV/Vjqpxi9811/11/1992Pap Smear11/11/1992 DTaP/Tdap/Td Vaccines (1 - Tdap)11/11/1993Zoster Vaccines (1 of 2)11/11/2021 Eyhrzobnc57/05/057501/12/2022, 01/01/2023, 01/01/2023Influenza Vaccine (#1) /OVID-19 Vaccine ( season)2025Lipid Panel HIB VaccinesAged OutNo longer eligible based on patient's age to complete this topicHPV VaccinesAged OutNo longer eligible based on patient's age to complete this topicHepatitis A VaccinesAged OutNo longer eligible based on patient's age to complete this topicIPV VaccinesAged OutNo longer eligible based on patient's age to complete this topicMeningococcal VaccineAged OutNo longer eligible based on patient's age to complete this topic Rotavirus VaccinesAged OutNo longer eligible based on patient's age to complete this topic Insurance MemberSubscriberPlan / Payer (Effective 2024-Present)Name:Mariana Kelly Relation to Subscriber:SelfName:Mariana Kelly Payer ID:Not on file Group ID:Not on file Type:Not on file Address: [address] [place] [id number] Care Teams Team MemberRelationshipSpecialtyStart DateEnd Date Ellie Ingram, PADDER-ENGINEERING RESEARCH MANAGER [address] [place] [phone] PCP - GeneralFamily Hzfijpqc32/19/24 Dileep Ceja MD [address] [address] Consulting PhysicianCardiology11/09/24
--- OUTSIDE RECORDS SUMMARY | 2025-06-20 10:15 | XMS_ITS | Encounter Summary ---
Author Organization [facility] tem Address [id number] [address] [place] [address] Care Team Providers Care Logistics Engineering Manager Name Role Phone Erasmo Ingramnancy OVERTON-LEGAL INVESTIGATOR Primary Care Provide r Encounter Details DateTypeDepartmentCare Team (Latest Contact Info)Oniovnxgmir14/08/2025Travel Social History Tobacco UseTypesPacks/DayYears UsedDateSmoking Tobacco: NeverSmokeless Tobacco: NeverAlcohol UseStandard Drinks/WeekCommentsYes0 (1 standard drink = 0.6 oz pure alcohol)occasionalPHQ-2AnswerDate RecordedTotal Giuwm4854ChildcareAnswer Date ZwlvlcklRolodcfeyKmgunsy08/23/2020EmploymentAnswerDate RecordedEmployment Fklxnzo7103/21/2020Hunger ScreeningAnswerDate RecordedWithin the past 12 months we worried whether our food would run out before we got money to buy more.Never True06/06/2025Within the past 12 months the food we bought just didn't last and we didn't have money to get more.Never True06/06/2025Purpose - LifeAnswerDate RecordedPurpose and direction in ardoErdszlk21/12/2021CommentsNoSex and Gender InformationValueDate RecordedSex Assigned at BirthNot on fileLegal Sex Kofwvn0403/21/2020 1:58 PM EDTGender IdentityNot on fileSexual OrientationNot on filedocumented as of this encounter Plan of Treatment DateTypeDepartmentCare Team (Latest Contact Info)Xzciagiggfy36/27/2025 1:00 PM EDTAppointment [facility] [address] [place] [address] Naima Macedo, COMPUTER AIDED DESIGN TECHNICIAN-EIGHT SECTION BLOWER [address] [place] [address] 06/25/2025 2:00 PM EDTHospital Encounter [facility] - Mammography/DEXA Imaging [address] [place] [address] Naima Macedo, COMPUTER AIDED DESIGN TECHNICIAN-EIGHT SECTION BLOWER [address] [place] [address] 06/26/2025 9:30 AM EDTOffice Visit [facility]'s Services - [place] [address] [place] [address] documented as of this encounter Visit Diagnoses Not on filedocumented in this encounter Additional Health Concerns AssessmentNoted TimePHQ-9 Depression Total Score: 305 10:25 AM EDTA Body Mass Index follow-up plan has been documented for the koklirg3701/19/2024 3:37 PM EDTdocumented as of this encounter Care Teams Team MemberRelationshipSpecialtyStart DateEnd Date Ellie Ingram APRN-LEGAL INVESTIGATOR [address] [place] [address] PCP - GeneralFamily Medicine09/22/24documented as of this encounter
--- OUTSIDE RECORDS SUMMARY | 2025-06-20 10:15 | XMS_ITS | Clinical Summary ---
Author Organization [employer] [facility] tem Address [facility] [id number] [address] [place] [address] Care Team Providers Care Digital Field Service Technician Name Role Phone Ellie Ingram APRN-ENVIRONMENTAL JOURNALIST Primary Care Provide r Allergies No known active allergies Medications MedicationSigDispense QuantityRefillsLast FilledStart DateEnd DateStatus lisinopriL (PRINIVIL,ZESTRIL) 20 mg tablet Take 1 tablet (20 mg total) by mouth in the morning.Active gabapentin (NEURONTIN) 300 mg capsule Take 1 capsule (300 mg total) by mouth 3 (three) times a day.Active amitriptyline (ELAVIL) 25 mg tablet Take 1 tablet (25 mg total) by mouth nightly.12/16/2023ctive ESGIC 50-325-40 mg per tablet Take 1 tablet by mouth every 4 (four) hours as needed for migraine.Active cetirizine (ZyrTEC) 10 mg tablet Take 1 tablet (10 mg total) by mouth in the morning.12/19/2023ctive TRULICITY 3 mg/0.5 mL pen injector Inject 1 mg under the skin once a week.11/20/2023ctive DULoxetine (CYMBALTA) 60 mg capsule Take 1 capsule (60 mg total) by mouth in the morning and 1 capsule (60 mg total) before bedtime.12/16/2023ctive JARDIANCE 10 mg tablet tablet Take 1 tablet (10 mg total) by mouth in the morning.12/15/2023ctive fludrocortisone (FLORINEF) 0.1 mg tablet Take 1 tablet (0.1 mg total) by mouth in the morning.12/15/2023ctive hydrOXYzine (ATARAX) 50 mg tablet Take 1 tablet (50 mg total) by mouth every 8 (eight) hours as needed.11/18/2023 Active metoprolol tartrate (LOPRESSOR) 25 mg tablet Take 1 tablet (25 mg total) by mouth in the morning and 1 tablet (25 mg total) before bedtime.12/15/2023ctive ondansetron ODT (ZOFRAN ODT) 4 mg disintegrating tablet Dissolve 1 tablet (4 mg total) on tongue in the morning and 1 tablet (4 mg total) at noon and 1 tablet (4 mg total) before bedtime.10/25/2023ctive pantoprazole (PROTONIX) 20 mg EC tablet Take 1 tablet (20 mg total) by mouth every morning before breakfast.12/15/2023 Active spironolactone (ALDACTONE) 100 mg tablet Take 1 tablet (100 mg total) by mouth in the morning.10/20/2023ctive tiZANidine (ZANAFLEX) 4 mg tablet Take 1 tablet (4 mg total) by mouth every 8 (eight) hours as needed.12/15/2023 Active topiramate (TOPAMAX) 25 mg tablet Take 1 tablet (25 mg total) by mouth in the morning.12/16/2023ctive atorvastatin (LIPITOR) 10 mg tablet Take 1 tablet (10 mg total) by mouth in the morning.5Active calcium carbonate-vitamin D3 (OSCAL 500 + D) 500 mg (1,250 mg) - 200 units per tablet Take 1 tablet by mouth in the morning and 1 tablet before bedtime.06/19/2024 Active cyanocobalamin (VITAMIN B-12) 1,000 mcg/mL injection Inject 1 mL (1,000 mcg total) into the appropriate muscle every 28 days. 5Active gemfibroziL (LOPID) 600 mg tablet Take 1 tablet (600 mg total) by mouth in the morning and 1 tablet (600 mg total) before bedtime./ctive ondansetron (ZOFRAN) 8 mg tablet Take 1 tablet (8 mg total) by mouth every 8 (eight) hours as needed.05/10/2025 Active rimegepant (NURTEC ODT) 75 mg disintegrating tablet Dissolve 1 tablet (75 mg total) on tongue as needed.5Active semaglutide (OZEMPIC) 0.25 mg or 0.5 mg (2 mg/3 mL) pen injector INJECT 0.25mg SUBCUTANEOUSLY (UNDER THE SKIN) ONCE A WEEK5Active terbinafine (LamISIL) 250 mg tablet Take 1 tablet (250 mg total) by mouth in the morning.5Active Immunization, In Clinic, Indications:Flu vaccine needonce. Sign this order to satisfy the OSBOP Positive ID requirements for immunization orders.Expired Active Problems ProblemNoted DateDiagnosed DateDegenerative lumbar disc12/10/2021MI 45.0-49.9, adult12/10/2021 Overview (12/10/2021): Discussed BMI at well woman visit Encounters DateTypeDepartmentCare RznnBatuqetdgrp67/16/9072Qfgofh85/08/2025 2:15 PM EDT Office Visit [facility] Women's Services - [facility] [address] [place] [address] Postmenopausal bleeding (Primary Dx); Flu vaccine need; Encounter for screening mammogram for malignant neoplasm of breast; Amenorrhea; Vasomotor symptoms due to menopause; Perimenopausal vasomotor vskosocg88/08/2025Travelfrom Last 3 Months Immunizations ImmunizationAdministration DatesNext DueInfluenza, Im Flucelvax (Pf)06/06/2025 Family History Medical HistoryRelationNameCommentsHypertensionFatherDiabetesMaternal GrandfatherHeart failureMaternal GrandfatherDiabetesMaternal Grandmother Pancreatic cancerMaternal GrandmotherHypertensionMotherLung cancerMotherDiabetes Paternal GrandfatherDiabetesPaternal GrandmotherBreast cancerNeg HxRelationName StatusCommentsFatherAliveMaternal GrandfatherMaternal GrandmotherMotherDeceased Paternal GrandfatherPaternal Grandmother Social History Tobacco UseTypesPacks/DayYears UsedDateSmoking Tobacco: NeverSmokeless Tobacco: Never Tobacco Cessation:Counseling Given: Not Answered Alcohol UseStandard Drinks/WeekCommentsYes0 (1 standard drink = 0.6 oz pure alcohol)occasionalPHQ-2AnswerDate RecordedTotal Ozqmo0274ChildcareAnswer Date DpouaxvnMrqppcypySbqrgoj88/23/2020EmploymentAnswerDate RecordedEmployment Qgidznc7903/21/2020Hunger ScreeningAnswerDate RecordedWithin the past 12 months we worried whether our food would run out before we got money to buy more.Never True06/06/2025Within the past 12 months the food we bought just didn't last and we didn't have money to get more.Never True06/06/2025Purpose - LifeAnswerDate RecordedPurpose and direction in ckpiZzozdnn41/12/2021CommentsNoSex and Gender InformationValueDate RecordedSex Assigned at BirthNot on fileLegal Sex Bnfzly1403/21/2020 1:58 PM EDTGender IdentityNot on fileSexual OrientationNot on file Last Filed Vital Signs Vital SignReadingTime TakenCommentsBlood Hevhaqot497/9606/06/2025 2:11 PM EDT Gcwqz364709/23/2024 2:06 AM PPUWeovlieinri35.4 ??C (97.5 ??F)09/22/2024 10:35 PM ESTRespiratory Utvm775309/23/2024 1:05 AM ESTOxygen Lcpkphibyj365%09/23/2024 2:35 AM ESTInhaled Oxygen Concentration--Wztwgx075.8 kg (242 lb)06/06/2025 2:11 PM IZQHimvux060.5 cm (5' 2 )06/06/2025 2:11 PM EDTBody Mass Index44.261 2:11 PM EDT Plan of Treatment DateTypeDepartmentCare Team (Latest Contact Info)Uwktwasutld96/27/2025 1:00 PM EDTAppointment [facility] - [facility]trasound [address] [place] [phone] Naima Macedo, RIGGER CHIEF-MEDICAL STAFF CREDENTIALING COORDINATOR [address] [place] [address] 06/25/2025 2:00 PM EDTHospital Encounter [facility] - Mammography/DEXA Imaging [address] [place] [phone] Namia Macedo, RIGGER CHIEF-MEDICAL STAFF CREDENTIALING COORDINATOR [address] [place] [address] 06/26/2025 9:[address] [facility]'s [facility] - [place] [address] [place] [phone] Health MaintenanceDue DateLast DoneCommentsDTaP,Tdap and Td Vaccines (1 - Tdap) 11/11/1990Zoster (Shingles) Vaccine (1 of 2)11/11/2021ap Smear11/27/2023 11/26/2020, 11/26/20209641Isnrbvaop13/05/202405/12/2022, 01/01/2023dult BMI Follow Up Plan/epression Emnnisnnj37/4COVID-19 Vaccine ( season)/03/2021, 05/15/2021dult BMI Screening /03/2025Tobacco Rtagqrhyo77/03/2025Influenza Vaccine Vxuoudbpk46/08/2025, 05/15/2021 Medical Devices Not on file Procedures Procedure NamePriorityDate/TimeAssociated DiagnosisCommentsMAMM SCREENING BILATERAL W AFELsiaegi83/05/2023 11:08 AM EDT Encounter for screening mammogram for breast cancer PAP PFIUVDbqfmmw72/30/2021 10:42 AM EDT Encounter for surveillance of injectable contraceptive from Last 3 Months or Most Recently Relevant to Health Maintenance Results * Mammography screening bilateral with CAD (01/01/2023 11:08 AM EDT)Anatomical RegionLateralityModalityBreastBilateralMammographySpecimen (Source)Anatomical Location / LateralityCollection Method / VolumeCollection TimeReceived Time 01/01/2023 11:08 AM EDT Narrative 01/01/2023 11:09 AM EDT MAMM SCREENING BILATERAL W CAD WITH TOMOSYNTHESIS HISTORY: Screening. COMPARISON: None FINDINGS: There are scattered areas of fibroglandular density. ??Negative for malignancy. Computer-aided detection was used in the interpretation of this examination. IMPRESSION: BIRADS 1 - Negative. ??Normal interval follow-up in 12 months. OVERALL ASSESSMENT- [...] 11:09 AM 1 b MAMM 1 YR Authorizing ProviderResult TypeResult StatusNaima Macedo RIGGER CHIEF-CNPIMG MAMMOGRAPHY ORDERABLESFinal Result * Pap Smear (11/26/2020 10:42 AM EDT)Specimen (Source)Anatomical Location / LateralityCollection Method / VolumeCollection TimeReceived Time11/26/2020 10:42 AM EDT11/27/2020 10:43 AM EDT Narrative COPATH - 11/28/2020 2:38 PM EDT [facility] ? [address] [facility] [address] [facility] ? [place] [address] ? Gynecologic Cytology Consultation ? Patient Name: JOSELITO VIDAL : 1970 (Age: 50) Gender: F Taken: 11/26/2020 Reported: 11/28/2020 Physician(s): VENUS DAVIS C.N.M. ([phone]) Copy To: ?? [facility]. #: [id number] Acct: # [id number] Final Cytologic Interpretation ThinPrep Pap Test (Cervical): Satisfactory for evaluation. A transformation zone component is present. NEGATIVE FOR INTRAEPITHELIAL LESION OR MALIGNANCY. ?? [facility]/11/28/2020 Interpretation [place] [address], License number: [id number]. Electronically Signed Out By ?JEANNE Rangel(ASCP) Date of Last Menstrual Period: ? (None Given) Other Clinical Conditions: Z30.42 Encounter for surveillance of injectable contraceptive Depo-Provera Source of Specimen ??ThinPrep Pap Test (Cervical) ? Thin Prep Pap ([employer] DEVELOPER) Fee Code(s): ?? G0145 The Pap test is a screening test with an inherent, but low, probability of error. The Pap test is primarily effective for the diagnosis and prevention of squamous cell carcinoma. Regular screening iscritical for prevention. ThinPrep liquid-based slides, which meet the Patron Attendant criteria for automated screening, have been screened by the ThinPrep Imaging System (as of 05/16/07) along with an additional manual rescreening by a reception interviewer and, if indicated, by a pathologist. Authorizing ProviderResult TypeResult StatusVenus Davis RIGGER CHIEF-CNM PATHOLOGY/CYTOLOGY ORDERABLESFinal ResultPerforming OrganizationAddress City/State/ZIP CodePhone Number COPATH from Last 3 Months or Most Recently Relevant to Health Maintenance Insurance Care Teams Team MemberRelationshipSpecialtyStart DateEnd Date Ellie Ingram APRN-SOBEIDA [facility] [place] [address] PCP - GeneralFanyly Medicine09/22/24
--- OUTSIDE RECORDS SUMMARY | 2025-06-20 10:15 | XMS_ITS | Encounter Summary ---
Author Organization [facility] tem Address [id number] [address] [place] [address] Care Team Providers Care Cycle Specialist Name Role Phone Erasmo Ingramnancy OVERTON-GLOBAL COMPENSATION DIRECTOR Primary Care Provide r Encounter Details DateTypeDepartmentCare Team (Latest Contact Info)Wlddtqbhkel22/16/2025Travel Social History Tobacco UseTypesPacks/DayYears UsedDateSmoking Tobacco: NeverSmokeless Tobacco: NeverAlcohol UseStandard Drinks/WeekCommentsYes0 (1 standard drink = 0.6 oz pure alcohol)occasionalPHQ-2AnswerDate RecordedTotal Bksuw5344ChildcareAnswer Date IxfkyhiePjgissgxiDxhikyo86/23/2020EmploymentAnswerDate RecordedEmployment Cfqcqsf2103/21/2020Hunger ScreeningAnswerDate RecordedWithin the past 12 months we worried whether our food would run out before we got money to buy more.Never True06/06/2025Within the past 12 months the food we bought just didn't last and we didn't have money to get more.Never True06/06/2025Purpose - LifeAnswerDate RecordedPurpose and direction in entgHmoxurf05/12/2021CommentsNoSex and Gender InformationValueDate RecordedSex Assigned at BirthNot on fileLegal Sex Arohta0203/21/2020 1:58 PM EDTGender IdentityNot on fileSexual OrientationNot on filedocumented as of this encounter Plan of Treatment DateTypeDepartmentCare Team (Latest Contact Info)Rdyvkjhewyr03/27/2025 1:00 PM EDTAppointment [facility] [address] [place] [address] Naima Macedo, COUNTY ASSESSOR-ARTIFICIAL BREAST FABRICATOR [address] [place] [address] 06/25/2025 2:00 PM EDTHospital Encounter [facility] - Mammography/DEXA Imaging [address] [place] [address] Naima Macedo, COUNTY ASSESSOR-ARTIFICIAL BREAST FABRICATOR [address] [place] [address] 06/26/2025 9:30 AM EDTOffice Visit [facility] Women's Services - [place] [address] [place] [address] documented as of this encounter Visit Diagnoses Not on filedocumented in this encounter Additional Health Concerns AssessmentNoted TimePHQ-9 Depression Total Score: 305 10:25 AM EDTA Body Mass Index follow-up plan has been documented for the cyzcugq2801/19/2024 3:37 PM EDTdocumented as of this encounter Care Teams Team MemberRelationshipSpecialtyStart DateEnd Date Ellie Ingram APRN-GLOBAL COMPENSATION DIRECTOR [address] [place] [address] PCP - GeneralFamily Medicine09/22/24documented as of this encounter
--- OUTSIDE RECORDS SUMMARY | 2025-06-20 10:15 | XMS_ITS | Encounter Summary ---
Author Organization [facility] Address [address] [place] [address] Care Team Providers Care Supervisor Hard Candy Name Role Phone Juan JoseEllie heart PRECISION MACHINIST Unavailable [phone] Rancho Hernandez MD Primary Care Provider [phone] Encounter Details DateTypeDepartmentCare Team (Latest Contact Info)Zvdvluijgfl86/20/2025bstract [facility] [address] [place] [phone] Rancho Hernandez MD [address] [place] [address] Social History Tobacco UseTypesPacks/DayYears UsedDateSmoking Tobacco: NeverPassive Smoke Exposure: NeverSmokeless Tobacco: NeverAlcohol UseStandard Drinks/WeekComments Yes1 (1 standard drink = 0.6 oz pure alcohol)PHQ-2AnswerDate RecordedPatient Health Questionnaire-2 Tglrd083CommentsUnknownSex and Gender InformationValueDate RecordedSex Assigned at BirthNot on fileLegal SexFemale 11/11/2022 11:06 PM EDTGender IdentityNot on fileSexual OrientationNot on file documented as of this encounter Plan of Treatment DateTypeDepartmentCare Team (Latest Contact Info)Pjlhildlhvc35/03/2025 3:00 PM ESTOffice Visit [facility] [address] [place] [phone] Alexis Grace, DPM [address] [facility] [place] [address] 11/06/2025 10:00 AM EDTOffice Visit [facility] [address] [place] [phone] Anamika Gunter, PRECISION MACHINIST [address] [place] [address] documented as of this encounter Visit Diagnoses Not on filedocumented in this encounter Care Teams Team MemberRelationshipSpecialtyStart DateEnd Rancho Hernandez MD [address] [place] [address] PCP - GeneralFamily Medicine03/16/25 Ellie Ingram NP [address] [place] [address] Referring Hfvggdkqe14/19/24documented as of this encounter
--- OUTSIDE RECORDS SUMMARY | 2025-06-20 10:15 | XMS_ITS | Clinical Summary ---
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 Role Phone Ellie Ingram APRN - FABRICIO Primary Care Provid er Allergies No known active allergies Medications MedicationSigDispense QuantityRefillsLast FilledStart DateEnd DateStatus traMADol (ULTRAM) 50 MG tablet Take by mouth.07/30/2022ctive cetirizine (ZYRTEC) 10 MG tablet Take by mouth07/30/2022ctive pantoprazole (PROTONIX) 20 MG tablet Take 1 tablet by mouth dailyActive spironolactone (ALDACTONE) 100 MG tablet Take 1 tablet by mouth dailyActive XANAX 0.5 MG tablet Take 1 tablet by mouth in the morning and at bedtime.09/07/2023ctive hydrOXYzine HCl (ATARAX) 50 MG tablet 1 or 2 three times a day as needed for sleep or anxiety Orally as directed for 30 daysActive SYMBICORT 160-4.5 MCG/ACT AERO Inhale 1 puff into the lungs in the morning and at bedtimeActive lisinopril (PRINIVIL;ZESTRIL) 20 MG tablet Take 1 tablet by mouth dailyActive diclofenac Sodium 1.5 % SOLN 40 drops Externally Four times a day for 14 days08/03/2023ctive diclofenac (VOLTAREN) 75 MG EC tablet Take by mouthActive VICTOZA 18 MG/3ML SOPN SC injection Inject into the skin09/30/2022ctive albuterol sulfate HFA (PROVENTIL;VENTOLIN;PROAIR) 108 (90 Base) MCG/ACT inhaler INHALE 2 PUFFS BY MOUTH EVERY 4-6 HOURS FOR 14 DAYS for 14Active gabapentin (NEURONTIN) 600 MG tablet Take 0.5 tablets by mouth in the morning, at noon, in the evening, and at bedtime.Active metFORMIN (GLUCOPHAGE-XR) 500 MG extended release tablet TAKE 1 TABLET BY MOUTH WITH FOOD TWICE DAILYActive DULoxetine (CYMBALTA) 60 MG extended release capsule Take 1 capsule by mouth 2 times dailyActive amitriptyline (ELAVIL) 75 MG tablet Take 25 mg by mouth nightly at bedtime.Active lidocaine (LMX) 4 % cream Indications:Lumbar radiculopathyApply a half dollar sized amount to intact skin topically up to twice daily as needed for pain 45 g ctive meloxicam (MOBIC) 7.5 MG tablet Indications:Lumbar radiculopathyTake 1 tablet by mouth daily Take with food, avoid other NSAIDs (Ibuprofen) and steroids 30 tablet 10/01/2023ctive fludrocortisone (FLORINEF) 0.1 MG tablet Take 1 tablet by mouth daily10/15/2023ctive tiZANidine (ZANAFLEX) 4 MG tablet Take 1 tablet by mouth 3 times daily as vsmxfm4810/20/2023ctive TRULICITY 3 MG/0.5ML SOPN INJECT 3 (THREE) mg SUBCUTANEOUSLY ONCE A WEEK10/25/2023ctive ondansetron (ZOFRAN-ODT) 4 MG disintegrating tablet DISSOLVE 1 (ONE) TABLET ON THE TONGUE EVERY 8 HOURS10/26/2023ctive ESGIC 50-325-40 MG per tablet 1 tablet as needed Orally every 4 hrsActive topiramate (TOPAMAX) 100 MG tablet Indications:Lumbosacral spondylosis without myelopathy,Spinal stenosis of lumbar region with neurogenic claudicationTake 1 tablet by mouth nightly 30 tablet 05/22/2024ctive Active Problems ProblemNoted DateDiagnosed DateLumbosacral spondylosis without myelopathy 02/01/2024lass 3 severe obesity due to excess calories without serious comorbidity with body mass index (BMI) of 40.0 to 44.9 in adult06/30/2022Lumbar nbbllatdofg58/01/2022pinal stenosis of lumbar region without neurogenic rcukxccnlnlj52/01/2022 Social History Tobacco UseTypesPacks/DayYears UsedDateSmoking Tobacco: NeverPassive Smoke Exposure: NeverSmokeless Tobacco: Never Tobacco Cessation:Counseling Given: No CommentsUnknownSex and Gender InformationValueDate RecordedSex Assigned at BirthNot on fileLegal BrzWudheo94/10/2013 9:54 PM ESTGender IdentityNot on fileSexual OrientationNot on file Last Filed Vital Signs Vital SignReadingTime TakenCommentsBlood Jgxidvht016/7409 10:49 AM EDT Voqoe0315 10:15 AM TMTApkqylmioso30.1 ??C (97 ??F)05/22/2024 10:49 AM EDTRespiratory Rate--Oxygen Gkaqajcign114%03/21/2024 10:15 AM EDTInhaled Oxygen Concentration--Wqmxhv751.9 kg (260 lb)05/22/2024 10:49 AM OJIAywdik207.5 cm (5' 2 )05/22/2024 10:49 AM EDTBody Mass Index47.55005/22/2024 10:49 AM EDT Plan of Treatment Health MaintenanceDue DateLast DoneCommentsDepression Wlduxr5911/12/1983HIV screen 11/11/1986Hepatitis C dtgjpk6911/11/1989DTaP/Tdap/Td vaccine (1 - Tdap)11/11/1990 Hepatitis B vaccine (1 of 3 - 19+ 3-dose series)11/11/1990Pap smear11/11/1992 Cervical cancer ewtltn7711/11/2001HPV (without or with Pap)11/11/2001Lipids 11/12/20114747Osdigdgaxyk24/15/2017Colorectal Cancer Vzpuhm0311/11/2016FIT/FOBT: Average risk11/11/2016Fecal-DNA (Cologuard): Average risk11/11/2016 Sigmoidoscopy/CT xougqheqacii95/15/2017Pneumococcal 50+ years Vaccine (1 of 1 - PCV)11/11/2021hingles vaccine (1 of 2)11/11/2021reast cancer uywise4401/01/2025 01/01/2023Flu vaccine (#1)509/OVID-19 Vaccine ( season)/03/2021, 09/16/2021Hepatitis A vaccineAged OutNo longer eligible based on patient's age to complete this topicHib vaccineAged OutNo longer eligible based on patient's age to complete this topicMeningococcal (ACWY) vaccineAged OutNo longer eligible based on patient's age to complete this topicMeningococcal B vaccineAged OutNo longer eligible based on patient's age to complete this topicPolio vaccineAged OutNo longer eligible based on patient's age to complete this topic Insurance Care Teams Team MemberRelationshipSpecialtyStart DateEnd Date Ellie Ingram APRN - NP [address] [place] [address] [facility]03/26/22
--- OUTSIDE RECORDS SUMMARY | 2025-06-20 10:16 | XMS_ITS | CCD ---
Author Organization [facility] CliniSyme Care Team Providers Care Coke Worker Name Role Phone EDIE SINGH Referring Unavailable EDIE SINGH Primary Care Unavailable Edie Singh Primary Care Provider Edie Singh Unavailable Edei Singh Unavailable Pop Blandon Unavailable Ellie Ingram Unavailable NON STAFF Primary Care Provider DO Reinaldo Seth Emergency Provider SOBEIDA Ingram-Ruperto Ellie Primary Care Provider SOBEIDA Ingram-Ruperto Argueta Attending Provider CHARLA IngramP-C Ellie Primary Care Provider SOBEIDA Ingram-C Ellie Attending Provider DO Edie Bolton Emergency Provider Susana Sung Unavailable Danya Carty Unavailable Serene Bustos Unavailable AGUSTO Ellis Attending Provider [phone] ELLIE INGRAM Consulting Unavailable JUAN JOSE, ELLIE [...] JOSE, ELLIE Attending Unavailable Dario Olmedo Unavailable Juan Jose, PIGMENT MIXER-C Ellie Primary Care Provider CHARLA IngramP-C Ellie Attending Provider DO Edei Bolton Emergency Provider Mayank Ellis, FABRICIO-C Susana Attending Provider [phone] BROOKLYNN Carty Referring Provider MD Dario Olmedo Attending Provider Clive Marino Unavailable Juan Jose, PIGMENT MIXER-C Ellie Primary Care Provider SOBEIDA Ingram-C Ellie Attending Provider [phone] Kera Mccall Unavailable Juan Jose, PIGMENT MIXER-C Ellie Primary Care Provider U DO Dario Espino Attending Provider [phone] MD Dario Olmedo Attending Provider [phone] NON STAFF Primary Care Provider Unavailabl e Dario Palacios Admitting Unavailab Dario Faria Attending Unavailab le Ellie Ingram Primary Care Unavailable Dario Olmedo Admitting Unavaila ble Dario Olmedo Attending Unavaila ble NON STAFF Primary Care [...] Unavailable JUAN JOSE, ELLIE Primary Care Unavailable DALZELL, JOSEFINA Referring Unavailable DONOVAN, SUNJAY Referring Unavailable ELLIE INGRAM Primary Care Unavailable DONOVAN, SUNJAY Referring Unavailable ELLIE INGRAM Primary Care Unavailable JUAN JOSEELLIE MOHR Primary Care Unavailable DONOVAN, SUNJAY Referring Unavailable DONOVAN, SUNSAHRAY Referring Unavailable ELLIE INGRAM Primary Care Unavailable JUAN JOSE, ALYSON Kwan Attending Unavail able JUAN JOSE, ALYSON Kwan Admitting Unavail able JUAN JOSE, ALYSON Kwan Attending Unavail able JUAN JOSE, ALYSON Kwan Admitting Unavail able JUAN JOSEELLIE MOHR Admitting Unavailable JUAN JOSE, ELLIE Attending Unavailable ELLIE INGRAM Admitting Unavailable JUAN JOSE, ELLIE Attending Unavailable JUAN JOSE, ALYSON Kwan Admitting Unavail able JUAN JOSE, ALYSON Kwan Attending Unavail able Unallocated MD, Noms Provider Primary Care Provi yogi Juan Jose THREAD WEAVER, Ellie Unavailable Juan Jose OFFAL ROLLER-INVENTORY CONTROL/SHIPPING RECEIVING, Ellie Hillman Primary Care Provider Juan Jose OFFAL ROLLER - THREAD WEAVER, Ellie Primary Care Provid er Unavailable Primary Care Provider Unavailabl e ELLIE INGRAM Primary Care Physician [phone] ELLIE INGRAM Primary Care Unavailable ELLIE INGRAM [...] NKANSAH-AMANKRA, YESENIA Referring Unavail able JUAN JOSE ELLIE [facility] Unavailable ELLIE INGRAM Attending Unavailable ELLIE INGRAM Admitting Unavailable JUAN JOSE, [facility] Unavailable NKANSAH-AMANKRA, YESENIA Attending Unavail able JUAN JOSE, [facility] Unavailable NKANSAH-AMANKRA, YESENIA Admitting Unavail able NKANSAH-AMANKRA, YESENIA Attending Unavail able NKANSAH-AMANKRA, YESENIA Referring Unavail able [facility] Juan Jose OFFAL ROLLER-INVENTORY CONTROL/SHIPPING RECEIVING, [facility] Provider Martin Larios MD Unavailable MARTIN LARIOS Referring Unavailab reggie INGRAMUofL [facility] ELLIE May[place] Primary Care Physician NKANSAH-AMANKRA, YESENIA Admitting Unavail able NKANSAH-AMANKRA, YESENIA Attending Unavail able NKANSAH-AMANKRA, YESENIA Referring Unavail able JUAN JOSE, PIGMENT MIXER ELLIE Meyers Admitting Unavai lable JUAN JOSE, PIGMENT MIXER ELLIE Meyers Attending Unavai robinson INGRAM, SOBEIDA Meyers Primary Care Unavai lable JUAN JOSE, PIGMENT MIXER ELLIE Kwan. Primary Care UnaMallory Clark Attending Unavailable Rancho Hernandez MD Primary Care Provider ALEXIS GRACE Attending Unavailable ALEXIS GRACE Attending Unavailable DARIO PALACIOS Attending Unavailable ELLIE INGRAM Referring Unavailable ANAMIKA CELESTIN Attending Unavailable ANAMIKA CELESTIN Attending Unavailable Juan Jose OFFAL ROLLER-PIGMENT MIXER, [facility] Provide r ELLIE INGRAM Referring Unavailable J[facility]AN [facility] Unavailable SHAYAN STANLEY Referring Unavailable Martin Larios MD Unavailable MARTIN LARIOS Attending Unavailab MARTIN Feliciano Referring Unavailab reggie INGRAMUofL [facility] MARTIN Albarran Attending ELLIE Badillo Primary Care MARTIN Albarran Referring MARTIN Kline Attending MARTIN Kline Referring ELLIE Badillo Primary [facility] Mayank bowers Allergies Allergy ClassificationReported Allergen(s)Allergy TypeDate of OnsetReaction(s) Facility (4 sources)No Known Medication Allergies; Translations: [No Known Medication Allergies]Propensity to adverse reactions (disorder)[facility] Repository (1 source)ALLERGIES NOT ON FILE; Translations: [ALLERGIES NOT ON FILE]Propensity to adverse reactions (disorder)[facility] Rep[facility] Medications Current Medications MedicationDrug Class(es)DatesSig (Normalized)Sig (Original)acetaminophen 325 mg / butalbital 50 mg / caffeine 40 mg oral capsule (20 sources)Barbiturate, Central Nervous System Stimulant, MethylxanthineStart: 24-15-5389gkpi 1 capsule by mouth every four hoursEsgic 325 mg-50 mg-40 mg oral capsule 1 cap(s), Oral, q4hr Headache, Refill(s) 0 Start Date: 10/09/24 Status: Ordered Repeat number: 1take 1 tablet by mouth every four hours as neededEsgic 50-325-40 mg tablet Take 1 tablet by mouth every 4 hours if needed. Active acetaminophen 300 mg / codeine phosphate 30 mg oral tablet (14 sources)Opioid AgonistStart: 75-82-9501uhxp 1 tablet by mouth every twelve hoursAcetaminophen-Codeine 300-30 MG 1 tablet as needed Orally twice a day for 30 days Oct, [id number] 200 actuat albuterol 0.09 mg/actuat metered dose inhaler (20 sources)beta2-Adrenergic AgonistStart: 46-34-6317qsno 2 puff(s) by inhalation every four to six hours as neededAlbuterol Sulfate HFA 108 (90 Base) MCG/ACT 2 puffs as needed Inhalation every 4-6 hours for 14 days Mar, ActiveStart: 22-80-8880njhe 2 puff(s) by inhalation every four hours as needed Albuterol Sulfate HFA 108 (90 Base) MCG/ACT 2 puffs as needed Inhalation every 4 hrs Sep, ActiveStart: 51-95-1702nong 2 puff(s) by inhalation four times dailyalbuterol 90 mcg/actuation inhaler Inhale 2 puffs 4 times a day. Active albuterol sulfate HFA (PROVENTIL;VENTOLIN;PROAIR) 108 (90 Base) MCG/ACT inhaler INHALE 2 PUFFS BY MOUTH EVERY 4-6 HOURS FOR 14 DAYS for 14 0 ActiveALPRAZolam 0.25 mg oral tablet (4 sources)BenzodiazepineStart: 11-23-2023 End: 58-17-6309lseg 1 tablet by mouth every twelve hoursALPRAZolam (Xanax) 0.25 mg tablet Take 1 tablet (0.25 mg) by mouth every 12 hours. 11/23/2023 12/17/2024 Discontinued (Med List Cleanup)Start: 15-99-7489kdjf 1 tablet by mouth at bedtimeXANAX 0.5 MG tablet Take 1 tablet by mouth in the morning and at bedtime. 0 09/07/2023 Activeamitriptyline hydrochloride 25 mg oral tablet (20 sources)Tricyclic AntidepressantStart: 12-16-2023 End: 01-83-3371yawk 1 tablet by mouth at bedtimeamitriptyline (Elavil) 25 MG tablet Take 25 mg by mouth at bedtime 04/18/2025 05/08/2025 Discontinued (Ineffective)Start: 09-78-3129ggug 1 tablet by mouth every twenty-four hours Amitriptyline HCl 25 MG 1 tablet at bedtime Orally Once a day for 30 days Oct, ActiveStart: 44-97-2087Uxrnrgubdflqv HCl 25 MG 1 tablet twice a day Orally bid for 30 days Oct, Active End: 67-49-2030yzrptcutxlpzs (Elavil) 75 mg tablet Take 25 mg by mouth once daily at bedtime. 07/31/2024 Discontinued (Therapy completed)amoxicillin 875 mg oral tablet (5 sources)Penicillin-class AntibacterialStart: 71-38-0375osbd 1 tablet by mouth every twelve hoursAmoxicillin 875 MG 1 tablet Orally every 12 hrs for 7 days May, Activeamoxicillin 875 mg / clavulanate 125 mg oral tablet (6 sources)Penicillin-class AntibacterialStart: 91-08-4115fubt 1 tablet by mouth every twelve hoursAmoxicillin-Pot Clavulanate 875-125 MG 1 tablet Orally every 12 hrs for 10 days Sep, Activeatorvastatin 10 mg oral tablet (2 sources)HMG-CoA Reductase InhibitorStart: 01-96-7998geja 1 tablet by mouth once dailyatorvastatin (Lipitor) 10 mg tablet Take 1 tablet (10 mg) by mouth once daily. 05/29/2025 Activeazelastine hydrochloride 0.137 mg/actuat metered dose nasal spray (1 source)Histamine-1 Receptor Antagonisttake 1 puff(s) nasal route twice daily Azelastine HCl 0.1 % 1 puff in each nostril Nasally Twice a day for 30 day(s) Activeazithromycin 250 mg oral tablet (2 sources)Macrolide AntimicrobialStart: 05-08-2025 End: 12-15-5900flge 2 tablets by mouth once daily, then take 1 tablet by mouth once dailyazithromycin (Zithromax) 250 MG tablet Indications: Acute non- recurrent frontal sinusitis Take 2 tablets (500 mg) by mouth Daily for 1 day, THEN 1 tablet (250 mg) Daily for 4 days. 6 tablet 05/08/2025 05/13/2025 Active Calcium (1 source)Phosphate Binder, CalciumCalcium daily Activecalcium carbonate 1250 mg / cholecalciferol 200 unt oral tablet (10 sources)Vitamin DStart: 20-33-9785vdxs 1 tablet by mouth every twelve hours Oysco 500/D 500 mg-5 mcg (200 unit) tablet Take 1 tablet by mouth every 12 hours. 06/19/2024 ActiveStart: 16-26-1403puqn 1 tablet by mouth once in the morningcalcium carbonate-vitamin D3 (OSCAL 500 + D) 500 mg (1,250 mg) - 200 units per tablet Take 1 tabletby mouth in the morning and 1 tablet before bedtime. 06/19/2024 Activetake 1 tablet by mouth in the morning, then take 1 tablet by mouth once at bedtimeCalcium Carb-Cholecalciferol (Oyster Shell Calcium w/D) 500-5 MG-MCG tablet Take 1 tablet by mouth in the morning and 1 tablet before bedtime. Activecefdinir 300 mg oral capsule (5 sources)Cephalosporin AntibacterialStart: 09-85-7958zkxg 1 capsule by mouth every twelve hoursCefdinir 300 MG 1 capsule Orally every 12 hrs for 7 days Jun, ActiveStart: 67-18-3274qhvn 1 capsule by mouth every twelve hours Cefdinir 300 MG 1 capsule Orally every 12 hrs for 10 day(s) May, Active celecoxib 200 mg oral capsule (20 sources)Nonsteroidal Anti-inflammatory DrugStart: 73-68-6466qdzq 1 capsule by mouth every twenty-four hoursCeleBREX 200 MG 1 capsule with food Orally Once a day for 30 day(s) December, Activecetirizine hydrochloride 10 mg oral capsule (20 sources)Histamine-1 Receptor AntagonistStart: 36-54-2070pprqzvpkpv 10 mg oral capsule 10 mg = 1 cap(s), Oral, Daily, PRN for allergy symptoms, # 40 cap(s),Refills(s) 0 Start Date: 10/09/24 Status: Ordered Quantity: 40.0 Unit: cap(s) Repeat number: 1Start: 07-30-2022 End: 06-51-8430upah 1 tablet by mouth in the morningcetirizine (ZyrTEC) 10 mg tablet Take 1 tablet (10 mg total) by mouth in the morning. 12/19/2023 Active cyclobenzaprine hydrochloride 10 mg oral tablet (18 sources)Muscle RelaxantStart: 09-02-2023 End: 78-63-5773fgxc 1 tablet by mouth three times dailycyclobenzaprine (Flexeril) 10 mg tablet Take 1 tablet (10 mg) by mouth 3 times a day. 09/02/2023 12/17/2024 Discontinued (Med List Cleanup)Start: 60-29-3054urst 1 tablet by mouth every twenty-four hoursCyclobenzaprine HCl 10 MG 1 tablet at bedtime as needed Orally Once a day for 30 day(s) Jul, Not-Takingdiclofenac sodium 15 mg/ml topical solution (7 sources)Nonsteroidal Anti-inflammatory DrugStart: 94-96-5921unxnvsaeqp Sodium 1.5 % SOLN 40 drops Externally Four times a day for 14 days 0 08/03/2023 Active diclofenac (VOLTAREN) 75 MG EC tablet Take by mouth 0 Activedoxycycline monohydrate 100 mg oral capsule (6 sources)Tetracycline-class DrugStart: 42-30-7383hkfn 1 capsule by mouth every twelve hoursDoxycycline Monohydrate 100 MG 1 capsule Orally every 12 hrs for 10 days Apr, Active0.5 ML dulaglutide 6 MG/ML Auto-Injector [Trulicity] (9 sources)GLP-1 Receptor AgonistStart: 76-27-6237yibppq 3 mg by subcutaneous injection every weekTrulicity Pen 3 mg/0.5 mL subcutaneous solution 3 mg, SubCutaneous, qWeek, weight loss, Refills(s) 0, Other (see comment) Start Date: 10/09/24 Status: Ordered Repeat number: 1Start: 45-43-9303olfjsd 3 mg by subcutaneous injection every weekTrulicity Pen 3 mg/0.5 mL subcutaneous solution 3 mg, SubCutaneous, qWeek, weight loss, Refills(s) 0, Other (see comment) Start Date: 10/09/24 Status: OrderedStart: 37-66-8636Kuzicwmqy Pen 3 mg/0.5 mL subcutaneous solution Refills(s) 0 Start Date: 10/09/24 Status: OrderedStart: 37-78-7618lgxkoe 4 mg by subcutaneous injection every weekdulaglutide (TRULICITY SUBQ) Inject 4 mg under the skin 1 (one) time per week. 10/25/2023 ActiveStart: 78-62-2903pibkhp 3 mg by subcutaneous injection every weekdulaglutide (TRULICITY SUBQ) INJECT 3 (THREE) mg SUBCUTANEOUSLY ONCE A WEEK 10/25/2023 ActiveDULoxetine 60 mg delayed release oral capsule (20 sources)Serotonin and Norepinephrine Reuptake InhibitorStart: 12-16-2023 End: 59-78-3825wjtg 1 capsule by mouth in the morning, then take 1 capsule by mouth at bedtimeDULoxetine (CYMBALTA) 60 mg capsule Take 1 capsule (60 mg total) by mouth in the morning and 1 capsule (60 mg total) before bedtime. 12/16/2023 ActiveStart: 30-33-8423boqk 1 capsule by mouth every twelve hoursDULoxetine HCl 60 MG 1 capsule Orally Twice a day for 30 day(s) Mar, ActiveStart: 53-29-0969uxlf 1 capsule by mouth every twelve hoursDULoxetine HCl 40 MG 1 capsule Orally Twice a day for 30 day(s) Mar, ActiveStart: 04-06-2022 take 1 capsule by mouth every twelve hoursDULoxetine HCl 20 MG 1 capsule Orally Twice a day for 30 day(s) Mar, Activeempagliflozin 25 mg oral tablet (20 sources)Sodium-Glucose Cotransporter 2 InhibitorStart: 63-57-1256qbhy 1 tablet by mouth in the morningJardiance 25 mg Take 1 tablet (25 mg) by mouth early in the morning.. 07/12/2024 ActiveStart: 72-85-4765xaoy 1 tablet by mouth in the morningJARDIANCE 10 mg tablet tablet Take 1 tablet (10 mg total) by mouth in the morning. 12/15/2023 Activefluconazole 150 mg oral tablet (6 sources)Azole AntifungalStart: 28-98-2336Cjjezyuydog 150 MG 1 tablet Orally 1 tablet weekly x 3 weeks for 21 days Aug, Activefludrocortisone acetate 0.1 mg oral tablet (20 sources)Start: 44-79-7636qftp 1 tablet by mouth in the morning fludrocortisone (FLORINEF) 0.1 mg tablet Take 1 tablet (0.1 mg total) by mouth in the morning. 12/15/2023 Activefluticasone propionate 0.05 mg/actuat metered dose nasal spray (1 source)Corticosteroidtake 1 spray(s) nasal route once dailyFluticasone Propionate 50 MCG/ACT 1 spray in each nostril Nasally Once a day for 30 day(s) Activegabapentin 400 mg oral capsule (20 sources)Anti-epileptic AgentStart: 10-09-2024 End: 66-24-7788xfsb 1 capsule by mouth twice dailygabapentin 400 mg Cap 400 mg = 1 cap(s), Oral, BID, Refills(s) 0, Neuropathy Start Date: 10/09/24 Status: Ordered Repeat number: 1Start: 20-87-0336ciua 1 tablet by mouth every eight hoursGabapentin 600 MG 1 tablet Orally three times a day for 30 day(s) Mar, ActiveStart: 88-96-5725veqq 1 capsule by mouth every eight hoursGabapentin 300 MG 1 capsule Orally three times a day for 30 day(s) Aug, Activetake 1 capsule by mouth every eight hoursgabapentin (Neurontin) 400 mg capsule Take 1 capsule (400 mg) by mouth every 8 hours. Activetake 0.5 tablet by mouth at bedtimegabapentin (NEURONTIN) 600 MG tablet Take 0.5 tablets by mouth in the morning, at noon, in the evening, and at bedtime. 0 Activegemfibrozil 600 mg oral tablet (4 sources)Peroxisome Proliferator Receptor alpha AgonistStart: 05-22-2025 End: 45-61-0144zfgw 1 tablet by mouth in the morning, then take 1 tablet by mouth at bedtimegemfibroziL (LOPID) 600 mg tablet Take 1 tablet (600 mg total) by mouth in the morning and 1 tablet(600 mg total) before bedtime. 05/22/2025 05/22/2026 ActivehydroCHLOROthiazide 25 mg / lisinopril 20 mg oral tablet (20 sources)Thiazide Diuretic, Angiotensin Converting Enzyme Inhibitortake 1 tablet by mouth every twenty-four hoursLisinopril-hydroCHLOROthiazide 20-25 MG 1 tablet Orally Once a day for 90 days Activetake 1 tablet by mouth every twenty- four hourshydrOXYzine hydrochloride 50 mg oral tablet (20 sources)AntihistamineStart: 72-14-6652dvhz 1 tablet by mouth twice daily hydrOXYzine hydrochloride 50 mg oral tablet 50 mg = 1 tab(s), Oral, BID, Refills(s) 0, Pain Start Date: 10/09/24 Status: Ordered Repeat number: 1Start: 68-07-1439oyqv 1 mg by mouth four times dailyhydrOXYzine hydrochloride 50 mg oral tablet mg tab(s), Oral, QID, Refills(s) 0 Start Date: 10/09/24 Status: OrderedStart: 11-18-2023 End: 52-48-2765bwej 1 tablet by mouth every eight hours as neededhydrOXYzine (ATARAX) 50 mg tablet Take 1 tablet (50 mg total) by mouth every 8 (eight) hours as needed. 11/18/2023 ActiveStart: 35-01-4160yezb 1 tablet by mouth every twelve hourshydrOXYzine HCL (Atarax) 25 mg tablet Take 1 tablet (25 mg) by mouth every 12 hours. 09/04/2023 ActiveStart: 59-59-6141pecg 1 tablet by mouth twice daily as neededhydrOXYzine HCl 25 MG 1 tablet as needed Orally twice daily for 30 days Oct, ActiveStart: 31-70-1218chig 1 tablet by mouth twice daily hydrOXYzine HCl 10 MG 1 Tablet Orally twice daily for 30 days May, Activetake 1 tablet by mouth three times daily as needed for anxietyhydrOXYzine HCl (ATARAX) 50 MG tablet 1 or 2 three times a day as needed for sleep or anxiety Orally as directed for 30 days 0 Activehyoscyamine sulfate 0.125 mg oral tablet (2 sources)Start: 50-84-2166ygdm 1 tablet by mouth four times daily as needed for muscle spasmsLevsin 0.125 mg SL Tab 0.125 mg = 1 tab(s), Oral, QID, PRN for spasm, # 40 tab(s), Refills(s) 0, Pharmacy: [id number], 157, cm, 10/12/24 13:52:00 EST, Height/Length Dosing, 116, kg, 10/12/24 13:52:00 EST, Weight Dosing Start Date: 10/19/24 Status: OrderedIron (1 source)take 1 tablet by mouth once dailyIron 325 (65 Fe) MG 1 tablet Orally Once a day ActivelevoFLOXacin 750 mg oral tablet (9 sources)Quinolone AntimicrobialStart: 03-89-6904mhnr 750 mg by mouth once dailyLevofloxacin Active 750 MG PO Daily 03 05October 08, 2022 1:00am3 ml liraglutide 6 mg/ml pen injector (20 sources)GLP-1 Receptor AgonistStart: 43-26-2473IHXIXJJ 18 MG/3ML SOPN SC injection Inject into the skin 0 09/30/2022 Activeinject 3 mg by subcutaneous injection once dailyVictoza 18 MG/3ML 3 mg Subcutaneous Daily for 30 days Active lisinopril 20 mg oral tablet (5 sources)Angiotensin Converting Enzyme Inhibitortake 1 tablet by mouth in the morninglisinopriL (PRINIVIL,ZESTRIL) 20 mg tablet Take 1 tablet (20 mg total) by mouth in the morning. Activemeloxicam 7.5 mg oral tablet (13 sources)Nonsteroidal Anti-inflammatory DrugStart: 90-67-3192iwah 1 tablet by mouth once daily at mealtimemeloxicam (MOBIC) 7.5 MG tablet Indications: Lumbar radiculopathy Take 1 tablet by mouth daily Takewith food, avoid other NSAIDs (Ibuprofen) and steroids 30 tablet 0 10/01/2023 ActiveStart: 11-13-2021 End: 20-45-8686buxg 1 tablet by mouth every twenty-four hoursMeloxicam 15 MG 1 tablet Orally Once a day for 30 day(s) Jun, Zyuhoi01 hr metFORMIN hydrochloride 500 mg extended release oral tablet (1 source)Biguanidetake 1 tablet by mouth twice daily at mealtimemetFORMIN (GLUCOPHAGE-XR) 500 MG extended release tablet TAKE 1 TABLET BY MOUTH WITH FOOD TWICE DAILY 0 Activemethocarbamol 750 mg oral tablet (2 sources)Muscle RelaxantStart: 01-30-2025 End: 25-61-3644ooxi 1 tablet by mouth every four hours as neededmethocarbamol (Robaxin) 750 MG tablet Take 750 mg by mouth every 4 (four) hours if needed 01/30/2025 05/08/2025 Discontinued (Ineffective)methylPREDNISolone (20 sources)CorticosteroidStart: 05-08-2025 End: 72-88-5291xwcoedBPXQKPYvytfn (Medrol Dospak) 4 MG tablets Indications: Pain Follow schedule on package instructions 21 tablet 05/08/2025 05/22/2025 Discontinued (Other)Start: 05-08-2025 End: 57-84-7842ujstqmUVYWQEOlwzvy (Medrol Dospak) 4 MG tablets Indications: Pain Follow schedule on package instructions 21 tablet 05/08/2025 05/15/2025 Active Start: 07-25-2024 End: 35-26-7727nfwe 1 tablet by mouth oncemethylPREDNISolone (Medrol Dospak) 4 mg tablets Take 1 tablet (4 mg) by mouth 1 time. 07/25/2024 12/17/2024 Discontinued (Med List Cleanup)Start: 95-63-6220waujddDNWONMJpuvby 4 MG as directed Orally for daily dose take half with breakfast, half with dinner for 6 days Mar, ActiveStart: 63-28-1087Vgiqpq 4 MG as directed Orally as directed for 6 days Oct, ActiveStart: 44-69-6594ufxeziFEDVGZPrvzvo 4 MG as directed Orally Once a day for 6 days Jun, ActiveStart: 06-11-2022 methylPREDNISolone 4 MG as directed Orally for 6 days May, ActiveStart: 53-83-0762Lukrlx 4 MG as directed Orally December, Not-TakingStart: 92-13-8974FSDT-Medrol Jul, 80 mgStart: 52-87-1678Vncdw: 87-91-0612Rbkq- Medrol 40 mg Jul, 80 mgStart: 59-71-6809Nffxn: 71-15-5994Gyvi-Medrol 80 mg May, 80 mgStart: 79-54-6589Xpdxs: 24-95-7554Gcqz-Medrol 40 mg May, 60 mgStart: 57-21-5113Jhsvg: 67-27-1561Dwks-Medrol 80 mg Nov, 60 mgmetoprolol tartrate 25 mg oral tablet (20 sources)beta-Adrenergic BlockerStart: 84-00-6663fiwv 1 tablet by mouth twice dailymetoprolol tartrate (Lopressor) 25 mg tablet Indications: Postural dizziness with near syncope Take1 tablet (25 mg) by mouth 2 times daily (morning and late afternoon). 180 tablet 3 06/11/2025 3:57 PM EDT 02/26/2025 Active midodrine hydrochloride 2.5 mg oral tablet (20 sources)alpha-Adrenergic AgonistStart: 01-27-2687uzmp 1 tablet by mouth twice dailymidodrine 2.5 mg oral tablet 2.5 mg = 1 tab(s), Oral, BID, Refills(s) 0, High blood pressure Start Date: 10/12/24 Status: Ordered Repeat number: 1 Start: 09-18-2024 End: 70-44-0143dlxa 1 tablet by mouth three times dailymidodrine (Proamatine) 2.5 mg tablet Indications: Postural dizziness with near syncope Take 1 tablet (2.5 mg) by mouth 3 times daily (morning, midday, late afternoon). 90 tablet 3 05/14/2025 3:25 PM EDT 02/26/2025 02/26/2026 ActiveStart: 07-31-2024 End: 76-08-5711mpxz 1 tablet by mouth three times dailymidodrine (Proamatine) 2.5 mg tablet Indications: Postural dizziness with near syncope Take 1 tablet (2.5 mg) by mouth 3 times daily (morning, midday, late afternoon). 90 tablet 07/31/2024 5Activenitrofurantoin, macrocrystals 25 mg / nitrofurantoin, monohydrate 75 mg oral capsule (3 sources)Nitrofuran AntibacterialStart: 07-31-2024 End: 68-39-3758ygbc 1 capsule by mouth every twelve hoursnitrofurantoin, macrocrystal-monohydrate, (Macrobid) 100 mg capsule Take 1 capsule (100 mg) by mouth every 12 hours. 07/31/2024 12/17/2024 Discontinued (Med List Cleanup) nystatin 184568 unt/ml oral suspension (1 source)Polyene AntifungalStart: 99-16-1363jouh 5 mL by mouth four times daily Nystatin 492707 UNIT/ML 5 ml Mouth/Throat Four times a day for 10 day(s) Jun, Activeondansetron 8 mg oral tablet (20 sources)Serotonin-3 Receptor AntagonistStart: 84-13-5801pozt 1 tablet by mouth every eight hours as neededondansetron (ZOFRAN) 8 mg tablet Take 1 tablet (8 mg total) by mouth every 8 (eight) hours as needed. 05/10/2025 ActiveStart: 49-19-0015qirc 1 tablet by mouth every eight hours as needed for nauseaZofran 4 mg Tab 4 mg = 1 tab(s), Oral, q8hr, PRN Nausea/Vomiting, Refills(s) 0 Start Date: 10/09/24 Status: Ordered Repeat number: 1Start: 64-37-6942hwfe 1 tablet by mouth every eight hours as neededondansetron ODT (Zofran-ODT) 8 mg disintegrating tablet Dissolve 1 tablet (8 mg) in the mouth every8 hours if needed. 06/22/2024 ActiveStart: 10-25-2023 End: 64-31-3595frpdjeksgmu ODT (ZOFRAN ODT) 4 mg disintegrating tablet Dissolve 1 tablet (4 mg total) on tongue inthe morning and 1 tablet (4 mg total) at noon and 1 tablet (4 mg total) before bedtime. 10/25/2023 ActiveStart: 10-25-2023 ondansetron ODT (ZOFRAN ODT) 4 mg disintegrating tablet Dissolve 1 tablet (4 mg total) on tongue 3 (three) times a day. 10/25/2023 ActiveStart: 38-60-0770qmnj 1 tablet by mouth every twelve hoursOndansetron HCl 8 MG 1 tablet as needed Orally bid for 15 day(s) May, Activetake 1 tablet by mouth every eight hours as needed for nausea and vomitingondansetron (Zofran) 8 MG tablet Take 8 mg by mouth every 8 (eight) hours if needed for nausea or vomiting Active2 ml orphenadrine citrate 30 mg/ml injection (4 sources)Muscle RelaxantStart: 05-22-2025 End: 13-55-6058hreebivkoski (Norflex) injection 60 mgStart: 05-22-2025 End: 36-33-3651dufedf 60 mg by intramuscular injection once60 mg, Intramuscular, Once, On Wed05/22/25 at 1115, For 1 doseStart: 05-22-2025 End: 54-13-1792yplqsmvjxfbe (Norflex) injection 60 mgStart: 05-22-2025 End: 96-01-7485ggosgy 60 mg by intramuscular injection once60 mg, Intramuscular, Once, On Wed05/22/25 at 1115, For 1 doseoxyCODONE hydrochloride 5 mg oral tablet (2 sources)Opioid AgonistStart: 32-81-3393ihhs 1 tablet by mouth every six hours as needed for painRoxicodone 5 mg Tab 5 mg = 1 tab(s), Oral, q6hr, PRN for pain, # 6 tab(s), Refills(s) 0, Pharmacy: [id number], 157, cm, 10/12/24 13:52:00 EST, Height/Length Dosing, 116, kg, 10/12/24 13:52:00 EST, Weight Dosing Start Date: 10/19/24 Status: OrderedOzempic, 0.25 or 0.5 MG/DOSE, 2 MG/3ML solution pen-injector (8 sources)Start: 39-12-6071rwpqfp 0.25 mg by subcutaneous injection every week Ozempic, 0.25 or 0.5 MG/DOSE, 2 MG/3ML solution pen-injector INJECT 0.25mg SUBCUTANEOUSLY (UNDER THE SKIN) ONCE A WEEK 04/19/2025 Activepantoprazole 20 mg delayed release oral tablet (20 sources)Proton Pump InhibitorStart: 00-89-4540XWKHIORRFXLL 20MG TAB PANTOPRAZOLE 20MG TAB Start Date: 10/09/24 Status: OrderedStart: 84-63-4136egen 1 tablet by mouth once daily before breakfastpantoprazole (PROTONIX) 20 mg EC tablet Take 1 tablet (20 mg total) by mouth every morning before breakfast. 12/15/2023 Activepotassium chloride 20 meq extended release oral tablet (11 sources)Start: 82-08-5304kbok 1 tablet by mouth twice dailyPotassium Chloride (K-Tab) 20 mEq tablet extended release Active 20 MEQ PO Twice daily September 10, 2022 1:00ampredniSONE 50 mg oral tablet (18 sources)Start: 10-08-2022 End: 07-02-7540nhqf 1 tablet by mouth in the morningpredniSONE (Deltasone) 50 mg tablet Take 1 tablet (50 mg) by mouth early in the morning.. 10/15/2023 12/17/2024 Discontinued (Med List Cleanup)Start: 12-55-5101cxohckCEBW 10 MG 1 tablet 3 times a day for 3 days then 1 tablet twice daily for 3 days Orally as directed for 6 days Sep, Activepregabalin 300 mg oral capsule (20 sources)Start: 07-88-5312jwey 1 capsule by mouth every twelve hours Pregabalin 300 MG 1 capsule Orally Twice a day for 30 days Oct, Active Start: 78-73-6127kmef 1 capsule by mouth every twelve hoursPregabalin 150 MG 1 capsule Orally Twice a day for 30 days Oct, Active End: 45-60-8081taek 1 capsule by mouth in the morning, then take 1 capsule by mouth at bedtimepregabalin (LYRICA) 200 mg capsule Take 1 capsule (200 mg total) by mouth in the morning and 1 capsule (200 mg total) before bedtime. 01/19/2024 Discontinued (Therapy completed)rimegepant 75 mg disintegrating oral tablet (4 sources)Start: 05-22-2025 End: 42-89-2678zdnlqmvlee (NURTEC ODT) 75 mg disintegrating tablet Dissolve 1 tablet (75 mg total) on tongue as needed. 05/22/2025 06/21/2025 Active semaglutide (OZEMPIC) 0.25 mg or 0.5 mg (2 mg/3 mL) pen injector (1 source)Start: 64-37-1470fbmbigalqwm (OZEMPIC) 0.25 mg or 0.5 mg (2 mg/3 mL) pen injector INJECT 0.25mg SUBCUTANEOUSLY (UNDER THE SKIN) ONCE A WEEK 04/19/2025 Activespironolactone 100 mg oral tablet (20 sources)Aldosterone AntagonistStart: 64-59-4878ptxj 1 tablet by mouth once dailyspironolactone 100 mg Tab 100 mg = 1 tab(s), Oral, Daily, Refills(s) 0, High blood pressure Start Date: 10/09/24 Status: Ordered Repeat number: 1 End: 73-72-5402zqoh 1 tablet by mouth once dailyspironolactone (Aldactone) 25 MG tablet Take 25 mg by mouth Daily 05/08/2025 Discontinued (Therapy completed) tamsulosin hydrochloride 0.4 mg oral capsule (2 sources)alpha-Adrenergic BlockerStart: 39-02-7094jlkv 1 capsule by mouth once dailyFlomax 0.4 mg Cap 0.4 mg = 1 cap(s), Oral, Daily, # 10 cap(s), Refills(s) 0, Pharmacy: [id number], 157, cm, 10/12/24 13:52:00 EST, Height/Length Dosing, 116, kg, 10/12/24 13:52:00 EST, Weight Dosing Start Date: 10/19/24 Status: Orderedtemazepam 30 mg oral capsule (4 sources)BenzodiazepineStart: 02-53-3003anpi 1 capsule by mouth once daily at bedtime as needed for sleeptemazepam 30 mg Cap 30 mg = 1 cap(s), Oral, Once a day (at bedtime), PRN for sleep, Refills(s) 0 Start Date: 10/12/24 Status: Ordered Repeat number: 1terbinafine 250 mg oral tablet (10 sources)Allylamine AntifungalStart: 04-06-2025 End: 17-49-6711cvja 1 tablet by mouth in the morningterbinafine (LamISIL) 250 mg tablet Take 1 tablet (250 mg total) by mouth in the morning. 04/06/2025 07/05/2025 ActivetiZANidine 4 mg oral capsule (20 sources)Central alpha-2 Adrenergic AgonistStart: 88-72-6395cune 1 capsule by mouth in the morning, then take 1 capsule by mouth in the evening, then take 1 capsule by mouth at bedtimetiZANidine (Zanaflex) 4 MG capsule Indications: Primary osteoarthritis involving multiple joints Take 1 capsule (4 mg) by mouth in the morning and 1 capsule (4 mg) in the evening and 1 capsule (4 mg)before bedtime. 90 capsule 05/10/2025 ActiveStart: 42-12-2476geybgnljoc 4 mg oral capsule Refills(s) 0 Start Date: 10/09/24 Status: OrderedStart: 45-70-4483gcxy 2 capsules by mouth at bedtimetizanidine 4 mg oral capsule 8 mg = 2 cap(s), Oral, Bedtime, Refills(s) 0, Sleep Start Date: 10/09/24 Status: Ordered Repeat number: 1Start: 47-59-5391flnj 1 tablet by mouth every eight hours as neededtiZANidine (ZANAFLEX) 4 mg tablet Take 1 tablet (4 mg total) by mouth every 8 (eight) hours as needed. 12/15/2023 ActiveStart: 72-18-4907ffhe 1 tablet by mouth three times daily as neededtiZANidine (ZANAFLEX) 4 MG tablet Take 1 tablet by mouth 3 times daily as needed 0 10/20/2023 ActiveStart: 88-37-5214bjoh 1 tablet by mouth every twenty-four hourstiZANidine HCl 4 MG 1 tablet as needed Orally once daily for 30 days Nov, Activetake 1 tablet by mouth twice daily as needed tiZANidine HCl 4 MG 1 tablet as needed Orally up to twice daily as needed for 30 days Activetopiramate 50 mg oral tablet (20 sources)Start: 05-08-2025 End: 92-32-3296fgnlxxnsjl 50 MG tablet Indications: Primary insomnia Take 50 mg by mouth Daily If medication is ineffective x 3 days then may increase to 100mg- 2tabs 90 tablet 3 05/08/2025 05/08/2026 ActiveStart: 02-15-2024 End: 85-65-9497pbuz 3 tablets by mouth once dailytopiramate (TOPAMAX) 25 MG tablet Take 3 tablets by mouth nightly 90 tablet 0 02/15/2024 03/16/2024ctive Start: 01-20-2024 End: 22-96-8855ksoa 2 tablets by mouth once dailytopiramate (TOPAMAX) 25 MG tablet Indications: Lumbar radiculopathy Take 2 tablets by mouth mtizfak33 tablet 0 01/20/2024 02/15/2024 Discontinued (DOSE ADJUSTMENT)Start: 12-16-2023 End: 51-55-2258gahq 1 mg by mouth twice dailytopiramate 25 mg Tab mg tab(s), Oral, BID, Refills(s) 0 Start Date: 10/09/24 Status: OrderedStart: 12-16-2023 End: 31-35-9250oics 1 tablet by mouth once dailytopiramate 25 mg Tab 25 mg = 1 tab(s), Oral, Daily, Refills(s) 0, Neuropathy Start Date: 10/09/24 Status: Ordered Repeat number: 1traMADol hydrochloride 50 mg oral tablet (8 sources)Opioid AgonistStart: 57-33-9328mraq 1 tablet by mouth every twelve hourstraMADol HCl 50 MG 1 tablet as needed Orally bid for 30 day(s) Jul, Active1 ml triamcinolone acetonide 40 mg/ml prefilled syringe (20 sources)CorticosteroidStart: 05-22-2025 End: 83-22-0880fjbkcnwzrcegi acetonide (Kenalog-40) injection 40 mgStart: 05-22-2025 End: 33-98-6562quncyu 40 mg by intramuscular injection once40 mg, Intramuscular, Once, On Wed05/22/25 at 1115, For 1 doseStart: 05-22-2025 End: 75-51-6227bgmxmigejmxhn acetonide (Kenalog-40) injection 40 mgStart: 05-22-2025 End: 27-39-5423yvwssn 40 mg by intramuscular injection once40 mg, Intramuscular, Once, On Wed05/22/25 at 1115, For 1 doseStart: 13-02-9229Vnksbxcetnwnb Acetonide 0.1 % 1 application to affected area Externally Twice a day for 5 days Oct, ActiveStart: 56-33-2376Sumix: 91-77-2279Kllzulc-40 Feb, 40 mgStart: 52-19-6677Qccps: 72-72-1827Cxnpx: 19-82-8736Qcqhbee -40 mg Oct, 40 mgStart: 27-98-0624Kpjyt: 93-00-5713QCTOZPC - 10 mg Feb, 40 mg TRULICITY 3 mg/0.5 mL pen injector (2 sources)Start: 26-98-2327fevksb 1 mg by subcutaneous injection every week TRULICITY 3 mg/0.5 mL pen injector Inject 1 mg under the skin once a week. 11/20/2023 ActiveTRULICITY 3 MG/0.5ML SOPN (1 source)Start: 98-98-8904mqvaxl 3 mg by subcutaneous injection every week TRULICITY 3 MG/0.5ML SOPN INJECT 3 (THREE) mg SUBCUTANEOUSLY ONCE A WEEK 0 10/25/2023 Activevitamin b12 1 mg/ml injectable solution (6 sources)Vitamin H21Uhfwg: 00-02-4459dcwcpgqjrbgxab (VITAMIN B-12) 1,000 mcg/mL injection Inject 1 mL (1,000 mcg total) into the appropriate muscle every 28 days. 03/25/2025 ActiveStart: 28-41-8970jxlmowdgdvnrmg (Vitamin B-12) 1000 MCG/ML injection Inject 1,000 mcg into the shoulder, thigh, or buttocks every 28 (twenty-eight) days 03/25/2025 ActiveVitamin D (1 source)Vitamin D daily Active Completed/Discontinued Medications MedicationDrug Class(es)DatesSig (Normalized)Sig (Original)betamethasone 3 mg/ml / betamethasone acetate 3 mg/ml injectable suspension (1 source)CorticosteroidStart: 02-15-2024 End: 58-47-6424rdsxnajtieqft acetate-betamethasone sodium phosphate (CELESTONE) injection 3 mgStart: 02-15-2024 End: 25-66-9269dydnykfsqyqgt acetate-betamethasone sodium phosphate (CELESTONE) injection 3 mg60 actuat budesonide 0.16 mg/actuat / formoterol fumarate 0.0045 mg/actuat metered dose inhaler (5 sources)Corticosteroid, beta2-Adrenergic AgonistStart: 11-17-2023 End: 54-19-7237vprf 2 puff(s) by inhalation in the morningSYMBICORT 160-4.5 mcg/actuation inhaler Inhale 2 puffs in the morning and 2 puffs before bedtime. 11/17/2023 01/19/2024 Discontinued (Therapy completed) End: 56-13-0608nfhn 1 puff(s) by inhalation twice dailySymbicort 160-4.5 mcg/actuation inhaler Inhale 1 puff 2 times a day. 12/17/2024 Discontinued (Med List Cleanup)take 1 puff(s) by inhalation at bedtimeSYMBICORT 160-4.5 MCG/ACT AERO Inhale 1 puff into the lungs in the morning and at bedtime 0 Active Dexamethasone (20 sources)CorticosteroidStart: 06-04-1551Mjtyu: 00-30-6225GYDHTUDPDNQRG Feb, 6 mgStart: 77-72-1092Ytnuvccvwvqmz 4 MG 3 tablets daily for 3 days then 2 tablets daily for 3 days then 1 tablet daily for 3 days Orally Once a day for 9 days Feb, ActiveDexamethasone 4 MG 3 tablets daily for 3 days then 2 tablets daily for 3 days then 1 tablet daily for 3 days Orally Once a day for 9 days ActiveDulaglutide (Trulicity) 3 MG/0.5ML solution auto-injector (9 sources) End: 63-36-6643Vpoubsqsvfc (Trulicity) 3 MG/0.5ML solution auto-injector Inject under the skin 05/02/2025 Discontinued (Therapy completed)Dulaglutide (Trulicity) 3 MG/0.5ML solution auto-injector Inject under the skin Active Handicap placards as directed (20 sources)Start: 28-01-8375Xzzns: 02-55-4024Inzqveyn placards as directed 1 to as directed as directed Jul, Activeindomethacin 50 mg oral capsule (15 sources)Nonsteroidal Anti-inflammatory DrugStart: 29-75-5705cbch 1 capsule by mouth every twelve hoursIndomethacin 50 MG 1 capsule with food or milk Orally Twice a day for 30 day(s) Jul, Not-TakingKetorolac (20 sources)Nonsteroidal Anti-inflammatory Drug, Cyclooxygenase InhibitorStart: 76-87-0980Xhfzw: 63-17-9011Cjlkzga per 15 mg Feb, 30 mgStart: 11-28-2018 Start: 83-44-5126Nzaeqqc per 15 mg Nov, 60 mgKetorolac Tromethamin (20 sources)Start: 75-49-0077Mzfrt: 07-92-0672Gskztzmgl Tromethamin Oct, 60 mgStart: 04-09-5570Syzet: 78-76-9255Saneglqij Tromethamin Oct, 30 mg lidocaine hydrochloride 10 mg/ml injectable solution (2 sources)Antiarrhythmic, Amide Local AnestheticStart: 02-15-2024 End: 20-47-4148fecxencmm 1 % injection 10 mLStart: 20-09-1467rynemmlzm (LMX) 4 % cream Indications: Lumbar radiculopathy Apply a half dollar sized amount to intact skin topically up to twice daily as needed for pain 45 g 1 10/01/2023 Activenorethindrone 0.35 mg oral tablet (6 sources)Start: 12-15-2022 End: 06-29-7658ltbx 1 tablet by mouth in the morningDEBLITANE 0.35 mg tablet Indications: Encounter for initial prescription of contraceptive pills take 1 tablet by mouth in the morning 28 tablet 01/03/2024 01/19/2024 Discontinued (Therapy completed)10 ml sodium bicarbonate 84 mg/ml injection (1 source)Start: 02-15-2024 End: 84-35-8146fbmiva bicarbonate 8.4 % injection 0.5 mEqStart: 02-15-2024 End: 89-72-6302mfbsyn bicarbonate 8.4 % injection 0.5 mEqToradol 30 mg/ml (20 sources)Start: 41-29-7978Wwlmr: 21-52-7513Suykmez 30 mg/ml Apr, 60 mgStart: 33-74-5003Ockpi: 83-90-0228Lzadgae 30 mg/ml Feb, 60 mgStart: 85-47-2753Xnccl: 88-24-7508Kdettce 30 mg/ml Oct, 30 mgStart: 03-11-2021 Start: 96-98-7322Qsrdjyw 30 mg/ml Feb, 30 mgStart: 22-12-4691Mehba: 07-06-0925Cnjjcfi 30 mg/ml Jan, 60 mg Problems Active Problems Problem ClassificationProblemDateDocumented DateEpisodic/Chronic Administrative/social admission (2 sources)Persons encountering health services in other specified circumstances EpisodicAllergic reactions (1 source)Unspecified contact dermatitis, unspecified causeEpisodicAnxiety disorders (20 sources)Generalized anxiety disorder; Translations: [Generalized anxiety disorder]Onset: 03-72-7154PrwtobvEutjxnw kidney disease (2 sources)Chronic kidney disease stage 1; Translations: [Chronic kidney disease, stage 1]81-04-6435NlzgtvbJpor; stupor; and brain damage (20 sources)Excessive daytime sleepiness - normal night sleep; Translations: [Somnolence]EpisodicConditions associated with dizziness or vertigo (18 sources)Postural dizziness; Translations: [Dizziness and giddiness]Onset: 417715-88-6984FpfufndrHmiazrwp mellitus without complication (7 sources)Other abnormal glucose; Translations: [Impaired fasting glucose] EpisodicDisorders of lipid metabolism (2 sources)Raised low density lipoprotein cholesterol; Translations: [Pure hypercholesterolemia, unspecified]41-25-8310DuldlotVsewhozfc hypertension (20 sources)Essential hypertension; Translations: [Essential (primary) hypertension]Onset: 04-06-2022 Resolved: 50-62-4628QdxexzjIsyuhfxlhxspq symptoms and ill-defined conditions (13 sources)Retention of urine; Translations: [Retention of urine, unspecified] 25-41-1114QvrguqbhRtuigkbz; including migraine (4 sources)Refractory migraine with aura; Translations: [Migraine with aura, intractable, with status migrainosus]54-94-7489KikpwiyNneebuuqppakm and screening for infectious disease (20 sources)Contact with and (suspected) exposure to other viral communicable diseases; Translations: [Requiresinfluenza virus vaccination]Onset: 06-12-2021 Resolved: 36-56-4306LvkqhaqmIkookikagr disorders (5 sources)Postmenopausal bleeding; Translations: [Postmenopausal bleeding] Onset: 060847-01-8310FyiudypUtjeemlsy disorders (2 sources)Amenorrhea; Translations: [Amenorrhea, unspecified]Onset: 06-06-2025 63-72-6949ZpioozdGetapvbtmpyor mental health disorders (2 sources)Primary insomnia; Translations: [Primary insomnia]37-91-0868Dkcfisg Mood disorders (20 sources)Recurrent major depressive episodes, mild ; Translations: [Major depressive disorder, recurrent, mild]Onset: 04-06-2022 Resolved: 20-98-1853ZvpuvcqSvcqacx (4 sources)Candidal stomatitis; Translations: [Onychomycosis]Episodic Osteoarthritis (20 sources)Arthritis of right knee; Translations: [Unilateral primary osteoarthritis, right knee]Onset: 41-81-2023RxvhkstYwjxf aftercare (2 sources)Polypharmacy ; Translations: [Other intermediate project manager (current) drug therapy] 27-27-2195VebscdqbAfbzr circulatory disease (1 source)Other specified symptoms and signs involving the circulatory and respiratory systemsEpisodicOther circulatory disease (5 sources)Postural orthostatic tachycardia wipuomoj53-80-8031JidayxzaLdyyy connective tissue disease (2 sources)Pain in right foot; Translations: [Pain in right foot]03-28-2025 EpisodicOther connective tissue disease (2 sources)Pain in left foot; Translations: [Pain in left foot]03-28-2025 EpisodicOther diseases of kidney and ureters (1 source)Urinary tract obstruction; Translations: [Hydronephrosis with renal and ureteral calculous obstruction]Onset: 10-64-9248VdhyemqkEugpz female genital disorders (1 source)Vaginal bleedingOnset: 22-82-5112WqkjkfnHkabw nervous system disorders (20 sources)Chronic pain; Translations: [Other chronic pain]ChronicOther nervous system disorders (10 sources)Other chronic pain; Translations: [Other chronic pain]Onset: 09-29-2021 Resolved: 65-19-6480RmicxbbLzstw nervous system disorders (5 sources)Disorder of autonomic nervous systemOnset: ChronicOther non-traumatic joint disorders (1 source)Pain in elbow; Translations: [Left elbow pain]EpisodicOther non- traumatic joint disorders (1 source)Pain in right kneeEpisodicOther non-traumatic joint disorders (1 source)Pain in right hipEpisodicOther non-traumatic joint disorders (3 sources)Joint pain; Translations: [Pain in other joint]57-86-8379Gykkiakc Other nutritional; endocrine; and metabolic disorders (20 sources)Body mass index 40+ - severely obese; Translations: [Body mass index (BMI) 40.0-44.9, adult]Onset: 316423-75-5670XkydratYodav nutritional; endocrine; and metabolic disorders (14 sources)Severe obesity; Translations: [Morbid (severe) obesity due to excess calories]Onset: 729780-67-3123RxuxyslSqsse nutritional; endocrine; and metabolic disorders (6 sources)Morbid (severe) obesity due to excess calories; Translations: [Morbid obesity]ChronicOther nutritional; endocrine; and metabolic disorders (2 sources)Body mass index (BMI) 40.0-44.9, adultChronicOther nutritional; endocrine; and metabolic disorders (20 sources)Morbid obesity; Translations: [Morbid (severe) obesity due to excess calories]ChronicOther nutritional; endocrine; and metabolic disorders (20 sources)Obesity; Translations: [Obesity, unspecified]ChronicOther nutritional; endocrine; and metabolic disorders (6 sources)Obesity, unspecifiedChronicOther nutritional; endocrine; and metabolic disorders (4 sources)Body mass index (BMI) 45.0-49.9, adultChronicOther nutritional; endocrine; and metabolic disorders (3 sources)Metabolic syndrome X; Translations: [Metabolic syndrome]ChronicOther nutritional; endocrine; and metabolic disorders (1 source)Metabolic syndromeChronicOther nutritional; endocrine; and metabolic disorders (2 sources)Obesity caused by energy imbalance; Translations: [Morbid (severe) obesity due to excess calories]94-83-6150RbysdfhCdudq nutritional; endocrine; and metabolic disorders (2 sources)Obese class III; Translations: [Obesity, class 3]76-18-1782Wajslwj Other nutritional; endocrine; and metabolic disorders (2 sources)Weight increased; Translations: [Abnormal weight gain]05-08-2025 EpisodicOther skin disorders (1 source)Disorder of the skin and subcutaneous tissue, unspecifiedEpisodicOther upper respiratory infections (20 sources)Chronic pansinusitis; Translations: [Chronic pansinusitis]Chronic Other upper respiratory infections (15 sources)Acute maxillary sinusitis, unspecified; Translations: [Acute frontal sinusitis, unspecified]Onset: 06-12-2021 Resolved: 79-54-1767MrbatvdkOouomo media and related conditions (4 sources)Otitis media, unspecified, bilateral; Translations: [Otitis media, unspecified, left ear]EpisodicPneumonia (except that caused by tuberculosis or sexually transmitted disease) (10 sources)Community acquired pneumonia; Translations: [Pneumonia, unspecified organism]37-89-6223RzosfjdlFfvrywru codes; unclassified (20 sources)Obstructive sleep apnea syndrome; Translations: [Obstructive sleep apnea (adult) (pediatric)]ChronicResidual codes; unclassified (20 sources)Obstructive sleep apnea of adult; Translations: [Obstructive sleep apnea (adult) (pediatric)]27-40-4499ShxzwmoUdmetkod codes; unclassified (20 sources)Sleep apnea; Translations: [Sleep apnea, unspecified]10-12-2024 ChronicResidual codes; unclassified (4 sources)Sleep apnea, unspecified; Translations: [Sleep apnea]ChronicResidual codes; unclassified (6 sources)Obstructive sleep apnea (adult) (pediatric); Translations: [Obstructive sleep apnea (adult)(pediatric)]Onset: 74-97-8208DcpkgutQeaubszr codes; unclassified (1 source)Obstructive sleep apnea (adult)(pediatric); Translations: [Obstructive sleep apnea (adult) (pediatric)]Onset: 98-57-3424LsmeqlcNqzqxulx codes; unclassified (20 sources)Generalized aches and pains; Translations: [Pain, unspecified] EpisodicResidual codes; unclassified (9 sources)Passive smoker; Translations: [Contact with and (suspected) exposure to environmental tobacco smoke(acute) (chronic)]46-22-2392ZcborbysGmmehphb codes; unclassified (20 sources)Insomnia; Translations: [Insomnia, unspecified]EpisodicResidual codes; unclassified (2 sources)Insomnia, unspecifiedEpisodicResidual codes; unclassified (4 sources)Menopause etcvkom41-63-5465EeuxfflkRcbbxrkq codes; unclassified (4 sources)Pain; Translations: [Pain, unspecified]90-29-5818OubwsbkiPirxyxpqml arthritis and related disease (2 sources)Rheumatoid arthritis of ankle; Translations: [Rheumatoid arthritis with rheumatoid factor of right ankle and foot without organ or systems involvement]44-37-1356EnxsocsMtzdfsckbew; intervertebral disc disorders; other back problems (20 sources)Arthritis of facet joint of lumbar spine; Translations: [Spondylosis without myelopathy or radiculopathy, lumbar region]Onset: 09-29-2021 Resolved: 00-75-4795OuxxalyYvdenci (4 sources)Syncope and collapse; Translations: [Syncope and collapse]Onset: 87-93-3841VopxjbvnMvgxale disorders (2 sources)Acquired hypothyroidism; Translations: [Hypothyroidism, unspecified] 26-91-6780JxsjtqeOujnkzzinikv (1 source)Unclassified (12 sources)Other low back pain; Translations: [Other low back pain]Unclassified (1 source)Dietary counseling and surveillance; Translations: [Dietary counseling and surveillance]Onset: 69-35-5486Jpikcizpjmjr (1 source)Low back pain, unspecified; Translations: [Low back pain, unspecified] Onset: 91-49-0912Ovfunakopvsm (5 sources)Obstructive abzhbkiiyadoxq96-77-7943Zglxnmkjojaf (5 sources)Jsxdbsfxchur66-26-6304Icczw infection (4 sources)Verruca plantaris; Translations: [Plantar wart]44-53-7174Sesxthey Past or Other Problems Problem ClassificationProblemDateDocumented DateEpisodic/ChronicContraceptive and procreative management (2 sources)Patient encounter status; Translations: [Encounter for initial prescription of contraceptive pills]55-20-7595OaqkxdjgIdgtw and electrolyte disorders (20 sources)Hypokalemia; Translations: [Hypokalemia]Onset: 747427-84-1166 EpisodicMalaise and fatigue (6 sources)Other fatigue; Translations: [OTHER FATIGUE]Onset: 62-64-2174Zmvugahv Mood disorders (2 sources)Mood disordersOnset: 591438-28-8298Hxubom and vomiting (1 source)Bilious vomiting; Translations: [Bilious vomiting with nausea R11.14] Onset: 06-12-2021 Resolved: 31-28-1658BphfhcipIgtma aftercare (1 source)Encounter for follow-up examination after completed treatment for conditions other than malignant neoplasmOnset: 04-27-2022 Resolved: 86-87-3127EexyfntlTzivp connective tissue disease (1 source)Other symptoms and signs involving the musculoskeletal system; Translations: [Other symptoms and signs involving the musculoskeletal system] Onset: 45-81-3148IpgtclikUtbzv screening for suspected conditions (not mental disorders or infectious disease) (9 sources)Electrocardiogram abnormal; Translations: [Abnormal electrocardiogram [ECG] [EKG]]Onset: 744709-43-8948QxsxvqvnVnkfw skin disorders (1 source)Mass of skin of right lower limb; Translations: [Disorder of the skin and subcutaneous tissue, unspecified]66-34-7022UlqmcnbrSolnaaky codes; unclassified (3 sources)Pain, unspecifiedOnset: 09-29-2021 Resolved: 19-16-1571QksrrbvkThvptxdez and history of mental health and substance abuse codes (1 source)Standardized adult depression screening tool completed ; Translations: [Encounter for screening fordepression]69-30-2414QwnmknieJhiuikgnxep; intervertebral disc disorders; other back problems (19 sources)Radiculopathy, lumbar region; Translations: [Muscle spasm of back] Onset: 08-11-2021 Resolved: 58-99-2457DhbcxbymPhhnvdq and strains (3 sources)Strain of muscle, fascia and tendon of lower back, initial encounter Onset: 11-06-2021 Resolved: 27-55-7149QlejksbzYwjlltypuncc (1 source)Suspected COVID-19 virus infection Z20.822; Translations: [Suspected COVID-19 virus infection Z20.822]Onset: 06-12-2021 Resolved: 81-84-9466Qyqkgeoeggfz (8 sources)Other low back pain M54.59Onset: 09-29-2021 Resolved: 75-26-3166Dkqqnfazledq (20 sources)Myofascial low back pain; Translations: [Other low back pain] Unclassified (2 sources)Pain in left lumbar region of back M54.50Onset: 03-03-2022 Resolved: 80-31-4348Wysyrolyppze (1 source)Subacute cough R05.2Unclassified (4 sources)Onset: 12-15-2022 Resolved: Results Test NameValueInterpretationReference RangeFacilityOrders Onlyon 05-28-2025 Orders [id number] Joselito Vidal 1970 F Date Provider Department Center 05/28/2025 MERYL [facility]UST [facility] No family history on fileNormalUniversSumma Health Barberton CampusTelephoneon [id number] Joselito Vidal 1970 F Date Provider Department Center 05/28/2025 [facility]ERYL DEVLIN [facility] No [facility] CampusCBC (H/H, RBC, INDICES, WBC, PLT)on 95-92-7835Qnbgyfaadnw distribution width (RBC) [Ratio]13.6 %Btyvtn33.0-15.0Quest DiagnosticsComment on above:Performed By: #### 04651, 5047 #### [facility] [address] [place] [address] Blend Technician: Monique Cano #### 3582, 290, 383 #### [facility] [place] [address] [facility], [address] [place] [address] Blend Technician: Herb Andujar MD #### [id number] #### [facility] [address] [address] [facility] [place] [address] Blend Technician: Vineet Ji M.D.,PhDHematocrit (Bld) [Volume fraction]43.9 %Qwierh56.0-45.0Quest DiagnosticsComment on above:Performed By: #### 11804, 1759 #### [facility] [address] [place] [address] Blend Technician: Monique Cano #### 760, 367, 899 #### [facility] [place] [address], [address] [place] [address] Blend Technician: Herb Andujar MD #### #### [facility]/[address] [place], [place] Blend Technician: Vineet Ji M.D.,PhDHemoglobin (Bld) [Mass/Vol]14.6 g/dL Iurbtu70.7-15.5Quest DiagnosticsComment on above:Performed By: #### 94588, 1758 #### [facility] [address] [place] [address] Blend Technician: Monique Cano #### 760, , 89 #### [facility] [address], [address] [place] [address] Blend Technician: Herb Andujar MD #### #### [facility]/[address] [place], [place] Blend Technician: Vineet Ji M.D.,PhDCOLER-[facility] (RBC) [Entitic mass]30.4 pgNormal 27.0-33.0Quest DiagnosticsComment on above:Performed By: #### 32875, 1758 #### [facility] [address] [place] [address] Blend Technician: Monique Cano #### 760, 367, 899 #### [facility] [address], [address] [place] [address] Blend Technician: Herb Andujar MD ### #### [facility]/[address] [place] Blend Technician: Vineet Ji M.D.,PhDHC (RBC) [Mass/Vol]33.3 g/dLNormal 32.0-36.0Quest DiagnosticsComment on above:Result Comment: For adults, a slight decrease in the calculated MCHC value (in the range of 30 to 32 g/dL) is most likely not clinically significant; however, it should be interpreted with caution in correlation with other red cell parameters and the patient's clinical condition.Performed By: #### , 1758 #### [facility] [address] Blend Technician: Monique Cano #### 760, , 89 #### [facility] [place] [address] Blend Technician: Herb Andujar MD #### 05414 #### [facility]/[address] [place], [place] Blend Technician: Vineet Ji M.D.,PhDV (RBC) [Entitic vol]91.3 fLNormal 80.0-100.0Quest DiagnosticsComment on above:Performed By: #### , 1758 #### [facility]-[address] Blend Technician: Monique Cano #### 7600, 367, 89 #### [facility] [address], [address] [place] [address] Blend Technician: Herb Andujar MD ### #### [facility]/[place] [id number] [facility] [place] Blend Technician: Vineet Ji M.D.,PhDPlatelet mean volume (Bld) [Entitic vol]9.5 fLNormal7.5-12.5Quest DiagnosticsComment on above:Performed By: #### , 1758 #### [facility] [address] [place] [address] Blend Technician: Monique Cano #### 7600, 367, 899 #### [facility] of [address], [address] [place] [address] Blend Technician: Herb Andujar MD #### [id number] #### [facility]/[address] [place], [place] Blend Technician: Vineet Ji M.D.,PhDPlatelets ([facility]) [#/Vol]422 10*3/uLHigh 140-400Quest DiagnosticsComment on above:Performed By: #### 75263, 1759 #### [facility] [address] [place] [address] Blend Technician: Monique Cano #### 7600, 367, 899 #### [facility] [address], [address] [place], [place] [address] Blend Technician: Herb Andujar MD #### 46670 #### [facility]/[place] [id number] [facility] [place] Blend Technician: Vineet Ji M.D.,PhDRBC ([facility]) [#/Vol]4.81 10*6/uLNormal 3.80-5.10Quest DiagnosticsComment on above:Performed By: #### 80157, 175 #### [facility] [address] [place] [address] Blend Technician: Monique Cano #### 7600, , 899 #### [facility] [address], [address] [place], [place] [address] Blend Technician: Herb Andujar MD #### 19713 #### [facility] [place] Blend Technician: Vineet Ji M.D.,PhDWBC ([facility]) [#/Vol]11.9 10*3/uLHigh 3.8-10.8Quest DiagnosticsComment on above:Performed By: #### 51454, 1759 #### [facility] [address] [place] [address] Blend Technician: Monique Cano #### 7600, 367, 899 #### [facility] [address], [address] [place] [address] Blend Technician: Herb Andujar MD #### #### [facility] [address] [place], [place] Blend Technician: Vineet Ji M.D.,PhDCOMPREHENSIVE METABOLIC PANELon 89-79-5753Chhensh [Mass/Vol]4.2 g/dLNormal3.6-5.1Quest DiagnosticsComment on above:Performed By: #### 45204, 1758 #### [facility] [address] [place] [address] Blend Technician: Monique Cano #### 7600, , 89 #### [facility] [address], [address] [place] [address] Blend Technician: Herb Andujar MD #### 05052 #### [facility] [address] [place], [place] Blend Technician: Vineet Ji M.D.,PhDAlbumin/Globulin [Mass ratio]1.6 {ratio}Normal1.0-2.5Quest DiagnosticsComment on above:Performed By: #### 16365, 1758 #### [facility] [address] [place] [address] Blend Technician: Monique Cano #### 7600, 367, 899 #### [facility] [address], [address] [place], [place] [address] Blend Technician: Herb Andujar MD #### #### [facility]/[address] [place], [place] Blend Technician: Vineet Ji M.D.,PhDALP [Catalytic activity/Vol]113 U/L Qlvekj31-253Cmzff DiagnosticsComment on above:Performed By: #### 51634, 1759 #### [place] [address] Blend Technician: Monique Cano #### 760, 367, 899 #### [facility] [address], [address] [place] [address] Blend Technician: Herb Andujar MD #### 86868 #### [facility]/[place] [id number] [facility] [place] Blend Technician: Vineet Ji M.D.,PhDALT [Catalytic activity/Vol]20 U/L Normal6-29Quest DiagnosticsComment on above:Performed By: #### 79160, 1759 #### [facility]-[place] [address] Blend Technician: Monique Cano #### 760, 367, 89 #### [facility] [address], [address] [place] [address] Blend Technician: Herb Andujar MD #### 44669 #### [facility]/[address] [place], [place] Blend Technician: Vineet Ji M.D.,PhDAST [Catalytic activity/Vol]15 U/L Lhpjel02-73Nvrmx DiagnosticsComment on above:Performed By: #### 08561, 1759 #### [facility] [address] [place] [address] Blend Technician: Monique Cano #### 760, 367, 899 #### [facility] [address], [address] [place] [address] Blend Technician: Herb Andujar MD #### 51438 #### [facility]/[address] [place], [place] Blend Technician: Vineet Ji M.D.,PhDBilirubin [Mass/Vol]0.4 mg/dLNormal 0.2-1.2Quest DiagnosticsComment on above:Performed By: #### 05875, 1758 #### [facility] [address] [place], [place] [address] Blend Technician: Monique Cano #### 760, , 899 #### [facility] [address], [address] [place] [address] Blend Technician: Herb Andujar MD #### 25370 #### [facility] [place] Blend Technician: Vineet Ji M.D.,PhDBUN/CREATININE RATIOSEE NOTE:Normal 6-Quest DiagnosticsComment on above:Result Comment: Not Reported: BUN and Creatinine are within reference range.Performed By: #### 93338, 1758 #### [facility] [address] [place] [address] Blend Technician: Monique Cano #### 7600, , 899 #### [facility] [address], [address] [place] [address] Blend Technician: Herb Andujar MD #### 51427 #### [facility] [address] [facility] [place] Blend Technician: Vineet Ji M.D.,PhDCalcium [Mass/Vol]10.0 mg/dLNormal 8.6-10.4Quest DiagnosticsComment on above:Performed By: #### 90702, 1758 #### [facility] [address] [place], [place] [address] Blend Technician: Monique Cano #### 760, 367, 899 #### [facility] [address], [address] [place] [address] Blend Technician: Herb Andujar MD ### #### [facility]/[address] [place] Blend Technician: Vineet Ji M.D.,PhDChloride [Moles/Vol]105 mmol/LNormal 98-110Quest DiagnosticsComment on above:Performed By: #### , 1758 #### [facility] [address] [place] [address] Blend Technician: Monique Cano #### 7599, , 899 #### [facility] [address], [address] [place] [address] Blend Technician: Herb Andujar MD #### #### [facility]/[address] [place], [place] Blend Technician: Vineet Ji M.D.,PhDCO2 [Moles/Vol]27 mmol/IWpkrcq20-69 Quest DiagnosticsComment on above:Performed By: #### 31107, 1758 #### [place] [address] Blend Technician: Monique Cano #### 7600, , 899 #### [facility] [address], [address] [place], [place] [address] Blend Technician: Herb Andujar MD #### #### [facility]/[place] [id number] [facility] [place] Blend Technician: Vineet Ji M.D.,PhDCreatinine [Mass/Vol]0.76 mg/dLNormal 0.50-1.03Quest DiagnosticsComment on above:Performed By: #### 26037, 1758 #### [facility] [address] [place] [address] Blend Technician: Monique Cano #### 760, , 899 #### [facility] [address], [address] [place] [address] Blend Technician: Herb Andujar MD #### #### [facility]/[place] [id number] [facility] [place] Blend Technician: Vineet Ji M.D.,PhDGFR/1.73 sq M.predicted among non- blacks MDRD (S/P/Bld) [Vol rate/Area]94 mL/min/{1.73_m2}Normal> OR = 60Quest DiagnosticsComment on above:Performed By: #### 77627, 1758 #### [place] [address] Blend Technician: Monique Cano #### 7599, , 899 #### [facility] [address], [address] [place] [address] Blend Technician: Herb Andujar MD #### 06856 #### [facility]/[address] [place], [place] Blend Technician: Vineet Ji M.D.,PhDGlobulin (S) [Mass/Vol]2.6 g/dLNormal 1.9-3.7Quest DiagnosticsComment on above:Performed By: #### 38830, 1758 #### [facility] [address] [place] [address] Blend Technician: Monique Cano #### 760, , 899 #### [facility] [address], [address] [place] [address] Blend Technician: Herb Andujar MD #### #### [facility] [id number] [facility] [place] Blend Technician: Vineet Ji M.D.,PhDGlucose [Mass/Vol]124 mg/dLNormal 65-139Quest DiagnosticsComment on above:Result Comment: Non-fasting reference interval For someone without known diabetes, a glucose value between 100 and 125 mg/dL is consistent with prediabetes and should be confirmed with a follow-up test.Performed By: #### 61003, 1759 #### [facility] [address] [place] [address] Blend Technician: Monique Cano #### 7599, , 899 #### [facility] [address], [address] [place] [address] Blend Technician: Herb Andujar MD #### 45869 #### [facility]/[place] [id number] [facility] [place] Blend Technician: Vineet Ji M.D.,PhDPotassium [Moles/Vol]4.4 mmol/LNormal 3.5-5.3Quest DiagnosticsComment on above:Performed By: #### 72816, 1758 #### [facility] [address] [place] [address] Blend Technician: Monique Cano #### 7599, , #### [facility] [address], [address] [place] [address] Blend Technician: Herb Andujar MD ### #### [facility]/[place] [id number] [facility] [place] Blend Technician: Vineet Ji M.D.,PhDProtein [Mass/Vol]6.8 g/dLNormal 6.1-8.1Quest DiagnosticsComment on above:Performed By: #### 69695, 1758 #### [facility] [address] [place] [address] Blend Technician: Monique Cano #### 7599, , 89 #### [facility] [address], [address] [place] [address] Blend Technician: Herb Andujar MD ### #### [facility] [place] Blend Technician: Vineet Ji M.D.,PhDSodium [Moles/Vol]140 mmol/LNormal 135-146Quest DiagnosticsComment on above:Performed By: #### 44302, 1758 #### [facility] [address] [place] [address] Blend Technician: Monique Cano #### 7600, 367, 899 #### [facility] [address], [address] [place] [address] Blend Technician: Herb Andujar MD #### #### [facility] [place] Blend Technician: Vineet Ji M.D.,PhDUrea nitrogen [Mass/Vol]10 mg/dLNormal 7-25Quest DiagnosticsComment on above:Performed By: #### 77184, 1758 #### [facility] [address] [place] [address] Blend Technician: Monique Cano #### 7600, 367, 899 #### [facility] [address], [address] [place] [address] Blend Technician: Herb Andujar MD #### #### [facility]/[place] [id number] [facility] [place] Blend Technician: Vineet Ji M.D.,PhDCORTISOL, TOTALon 54-02-7893SKNYKHNN, TOTAL1.9 mcg/dLLowQuest DiagnosticsComment on above:Result Comment: The Cortisol result may be decreased on average 10-20% relative to results previously obtained with this method due to a recent quality improvement made in March 2025 by the reagent strike plate attacher. Reference Range: For 8 a.m.(7-9 a.m.) Specimen: 4.0-22.0 Reference Range: For 4 p.m.(3-5 p.m.) Specimen: 3.0-17.0 * Please interpret above results accordingly *Performed By: #### 57309, 1759 #### [facility]-[address] Blend Technician: Monique Cano #### 7600, 367, 899 #### [facility] [address], [address] [place] [address] Blend Technician: Herb Andujar MD #### #### [facility]/[place] [id number] [facility] [place] Blend Technician: Vineet Ji M.D.,PhDLIPID PANEL, [facility] 05-13-2025 Cholesterol [Mass/Vol]209 mg/dLHigh<200Quest DiagnosticsComment on above:Order Comment: FASTING:NO FASTING: NOPerformed By: #### 43677, 1759 #### [facility] [address] [place] [address] Blend Technician: Monique Cano #### 760, 367, 89 #### [facility] [address], [address] [place] [address] Blend Technician: Herb Andujar MD #### #### [facility]/[place] [id number] [facility] [place] Blend Technician: Vineet Ji M.D.,PhDCholesterol in HDL [Mass/Vol]56 mg/dL Normal> OR = 50Quest DiagnosticsComment on above:Order Comment: FASTING:NO FASTING: NOPerformed By: #### 50536, 1759 #### [facility]-[address] [address] Blend Technician: Monique Cano #### 7600, 367, 899 #### [facility] [address], [address] [place] [address] Blend Technician: Herb Andujar MD #### 49194 #### [facility]/[place] [id number] [facility] [place] Blend Technician: Vineet Ji M.D.,PhDCholesterol in LDL [Mass/Vol]126 mg/dL HighQuest DiagnosticsComment on above:Order Comment: FASTING:NO FASTING: NOResult Comment: Reference range: <100 Desirable range <100 mg/dL for primary prevention; <70 mg/dL for patients with CHD or diabetic patients with > or = 2 CHD risk factors. LDL-C is now calculated using the Luis A calculation, which is a validated novel method providing better accuracy than the Friedewald equation in the estimation of LDL-C. Wali FANG et al. [place]. 2013;310(19): 9819-1867 (http://education.[employer]/faq/KSM056)Performed By: #### 04389, 1758 #### [facility] [address] [place], [place] [address] Blend Technician: Monique Cano #### 7600, 006, 899 #### [facility] [address], [address] [place] [address] Blend Technician: Herb Andujar MD #### 88473 #### [facility] [address] [facility] [place] Blend Technician: Vineet Ji M.D.,PhDCholesterol.total/Cholesterol in HDL [Mass ratio]3.7 {ratio}Normal<5.0Quest DiagnosticsComment on above:Order Comment: FASTING:NO FASTING: NOPerformed By: #### 13753, 1758 #### [facility] [address] [place] [address] Blend Technician: Monique Cano #### 7600, 565, 899 #### [facility] [address], [address] [place], [place] [address] Blend Technician: Herb Andujar MD ### #### [facility] [place] Blend Technician: Vineet Ji M.D.,PhDNON HDL VQFNPQBSBTI467 mg/dL (calc) High<130Quest DiagnosticsComment on above:Order Comment: FASTING:NO FASTING: NOResult Comment: For patients with diabetes plus 1 major ASCVD risk factor, treating to a non-HDL-C goal of <100 mg/dL (LDL-C of <70 mg/dL) is considered a therapeutic option.Performed By: #### 57751, 1759 #### [facility] [address] [place], [place] [address] Blend Technician: Monique Cano #### 7600, 367, 899 #### [facility] [address], [address] [place] [address] Blend Technician: Herb Andujar MD #### 48851 #### [facility] [place] Blend Technician: Vineet Ji M.D.,PhDTriglyceride [Mass/Vol]152 mg/dLHigh <150Quest DiagnosticsComment on above:Order Comment: FASTING:NO FASTING: NOPerformed By: #### 84091, 1759 #### [facility] [address] [place] [address] Blend Technician: Monique Cano #### 7600, 367, 899 #### [facility] [address], [address] [place] [address] Blend Technician: Herb Andujar MD #### #### [facility]/[place] [id number] [facility] [place] Blend Technician: Vineet Ji M.D.,PhDRHEUMATOID ARTHRITIS DIAGNOSTIC PANEL 3on 19-66-4038ZHQUGA CITRULLINATED PEPTIDE (CCP) AB (IGG)<16Normal<20Quest DiagnosticsComment on above:Result Comment: Negative: <20 Weak Positive: 20 - 39 Moderate Positive: 40 - 59 Strong Positive: >59Performed By: #### 80048, 175 #### [place] [address] Blend Technician: Monique Cano #### 7599, 367, 89 #### [facility] [address], [address] [place], [place] [address] Blend Technician: Herb Andujar MD #### #### [facility]/[address] [place], [place] Blend Technician: Vineet Ji M.D.,PhDRHEUMATOID FACTOR (IGA)<5Normal<=6 Quest DiagnosticsComment on above:Performed By: #### 22722, 1758 #### [place] [address] Blend Technician: Monique Cano #### 7599, , 89 #### [facility] [address], [address] [place], [place] [address] Blend Technician: Herb Andujar MD #### #### [facility]/[place] [id number] [facility] [place] Blend Technician: Vineet Ji M.D.,PhDRHEUMATOID FACTOR (IGG)<5Normal<=6 Quest DiagnosticsComment on above:Performed By: #### 93426, 1758 #### [facility] [address] [place] [address] Blend Technician: Monique Cano #### 7599, , 89 #### [facility] [address], [address] [place] [address] Blend Technician: Herb Andujar MD #### #### [facility]/[place] [id number] [facility] [address] [place] Blend Technician: Vineet Ji M.D.,PhDRHEUMATOID FACTOR (IGM)10 UHigh<=6 Quest DiagnosticsComment on above:Performed By: #### 17829, 1759 #### [facility]-[place] [address] Blend Technician: Monique Cano #### 7600, 367, 899 #### [facility] [address], [address] [place] [address] Blend Technician: Herb Andujar MD #### #### [facility]/[address] [place] Blend Technician: Vineet Ji M.D.,PhDSJOGREN'S ANTIBODY (SS-A)<1.0Normal Quest DiagnosticsComment on above:Result Comment: Reference Range: < 1.0 NEG AIPerformed By: #### 64804, 1759 #### [facility] [address] Blend Technician: Monique Cano #### 7600, , 89 #### [facility] [address], [address] [place] [address] Blend Technician: Herb Andujar MD #### #### [facility]/[address] [place] Blend Technician: Vineet Ji M.D.,PhDSJOGREN'S ANTIBODY (SS-B)<1.0Normal Quest DiagnosticsComment on above:Result Comment: Reference Range: < 1.0 NEG AIPerformed By: #### 82317, 1759 #### [facility] [address] Blend Technician: Monique Cano #### 7600, 367, 89 #### [facility] [address], [address] [place] [address] Blend Technician: Herb Andujar MD #### #### [facility]/[place] [id number] [facility] [place] Blend Technician: Vineet Ji M.D.,PhDTSHon 17-11-1060WGC Qn0.64 m[IU]/L NormalQuest DiagnosticsComment on above:Result Comment: Reference Range > or = 20 Years 0.40-4.50 Ranges First trimester 0.26-2.66 Second trimester 0.55-2.73 Third trimester 0.43-2.91Performed By: #### 88690, 1759 #### [facility] [address] [place] [address] Blend Technician: Monique Cano #### 7600, 367, 899 #### [facility] [address], [address] [place] [address] Blend Technician: Herb Andujar MD #### 64884 #### [facility] [id number] [facility] [place] Blend Technician: Vineet Ji M.D.,VrRNqV4s (Bld) [Mass fraction]on 60-87-0463Kvpmenhxxqbixj and review of laboratory resultsNoMoundview Memorial Hospital and ClinicsLaboratory - Hematology and Cell countson 12-94-4572UdV2q (Bld) [Mass fraction]5.2 %[facility] 75-44-4982RUZ [Catalytic activity/Vol] 21 U/LNormal6-29Quest DiagnosticsComment on above:Performed By: #### 822, 823 #### [facility] [address], [address] [place], [place] [address] Blend Technician: Herb Andujar [facility] 55-80-3472ZYW [Catalytic activity/Vol]18 U/CDmrgik84-22Zmhpo DiagnosticsComment on above:Performed By: #### 822, 823 #### [facility] [address], [address] [place] [address] Blend Technician: Herb Merati MDCT Abdomen/Pelvis w/o Contraston [id number] Abdomen/Pelvis w/o ContrastExam Date/Time: 01/16/2025 10:14 EDT Reason for Exam: [...] Estuardo Kang MD Transcribed by: GREGG Technologist: LisaAccess Hospital DaytonAmbulatory Visit Summaryon 62-66-9417Hstklbzbiy Visit SummaryAmbulatory Visit Summary JOSELITO VIDAL :1970 Visit Date:11/14/2024 [...] YESENIA YUSUF MD Where: [facility] [address], [address] [place] [address]- You Need to Schedule the Following Appointments Follow Up with TREVOR RAMIREZ, DEAN PATTERSON When: Where: You Need to Complete the Following CT Abdomen/Pelvis w/o Contrast, 11/14/24, Routine, Order for future visit, Transport Mode: Ambulatory, Reason: Other (please specify), Reason: Ureteral stone, No, No, Ureteral stone with hydronephrosis, Stone protocol, pp_set_radiology_subspecialty, Not Required, [facility] Medications What How Much When Instructions Unchanged [...] 1 Tablets By Mouth Every day Contact prescribingphysician if questions or concerns Unchanged spironolactone (spironolactone 100 mg Tab) 1 Tablets By Mouth Every day Contact prescribing physician if questions or concerns Unchanged temazepam (temazepam 30 mg Cap) 1 Capsules By Mouth Once a day (at bedtime) as needed forfor sleep Contact prescribing physician if questions or [...] feedback and thank yo (more content not included)...[facility] CenterUrology Office/Clinic Noteon 13-94-9008Ljaodgq Office/Clinic Note Urology Office/Clinic Note Chief Complaint follow up HPI Staff 54 year old female here for follow up to Cystoscopy, right ureteroscopy, right ureteral stent placement 10/19/24 GERRY and KUB done [place]02[place] [facility] [place] Previous Dx: Ureteral stone with hydronephrosis [...] due to kidney stone and JOSE. Denies hxof [place] or CVA. Not on anticoagulation. BBSQ 13 (7) Portions of this record may have been created with voice recognition artificial intelligence software, specifically besomebody., [employer] and or HeyCrowd. Substitutions may have occurred due to the inherent limitations of voice recognition and artificial intelligence software. 1. Ureteral stone with hydronephrosis (N13.2: Hydronephrosis with renal and ureteral calculous obstruction) Pt presented to [facility] ER 09/23/24 due to R sided flank pain. CT AP w con 09/23/24 - obstructing 5 mm R UVJ stone with mild to moderate upstream dilatation. Kidney function - Cr 1.0, eGFR 68. Grandmother had kidney stones. First stone event. Of note, pt states that she presented to the ER ayear ago with UR for 24 hrs. Pt states she was cathed at the ER and had no issues with urination afterwards. S/p cysto, R URS, R stent placement 10/19/24 - no presence of stone noted in the renal pelvis or distal ureter. Removed string stent at home without difficulty. KUB 11[place] [facility] [place] approximately 4 x 2 mm calculus overlying the left side of the distal sacrummay be within the distal left ureter or urinary bladder. Renal US 11/02/24 [facility] [place] The study is mild to moderately limited by the patient's body habitus. Negfor stones or hydro. Discussed KUB findings with pt. Asymptomatic. Denies passage of stone since having imaging done. Discussed ordering CT AP wo con to better evaluate stone noted on KUB. Pt agrees with plan. -CT AP wo con (stone protocol) now [place] [facility]up in [address] results [...] Additional Instructions: 2 months (CT now at [facility] Patient Education Dietary Guidelines to Help Prevent Kidney Stones I, Suly Burrell, personally scribed for Dr. Avery on 11/14/2024 14:04:04. . Documentation recorded by the scribe, Suly Burrell, accurately reflects the services(s) I performed and decisions made by me. Authenticated by Dr. Shane Brooks on 11/14/2024 14:20:14. Problem List/Past Medical History [...] 25 mg= 1 tab (more content not included)...Normal Access Hospital DaytonComment on above:Result Comment: Electronically Signed By: YESENIA YUSUF MD\.br\Date and Time Signed: 11/14/24 14:25 EDT\.br\Electronically Co-Signed By: Suly Burrell.br\Date and Time Co- Signed: 11/14/24 14:04 EDTUS Renalon [id number] RenalExam Date/Time: 11/02/2024 10:38 EST Reason for Exam: [...] Jeffry Chapman MD Transcribed by: GREGG Technologist: IAMandybongAccess Hospital DaytonXR Abdomen 1 Viewon 49-42-9078NV Abdomen 1 ViewExam Date/Time: 11/02/2024 10:26 EST Reason for Exam: [...] Jeffry Chapman MD Transcribed by: GREGG Technologist: NAWAFPremier Health [place] [facility] w/ Auto Diffon 15-20-1241Cpvcsajxn/100 WBC (Bld)0.5 %Normal0.0-2.0Access Hospital DaytonComment on above:Performed By: #### [id number] #### [facility] [address], [place] [address]Uvwbijhaj/Leukocytes Auto (Bld) [Pure # fraction]0.0 E9/LNormal 0.0-0.2FSouthwest General Health CenterComment on above:Performed By: #### [id number] #### [facility] [address], [place] [address]Arfpyvoosqa (Bld) [#/Vol]0.2 E9/LNormal0.0-0.5FSouthwest General Health CenterComment on above:Performed By: #### [id number] #### [facility] [address], [place] [address]Zpnovrqmosp/100 WBC (Bld)2.5 %Normal0.0-8.0Access Hospital DaytonComment on above:Performed By: #### [id number] #### [facility] [address], [place] [address]Kpbwgthrmki distribution width (RBC) [Ratio]14.0 %Normal 10.9-14.2FSouthwest General Health CenterComment on above:Performed By: #### [id number] #### [facility] [address] [place] [address]Mftysrdbiy (Bld) [Volume fraction]44.6 %Xdobmy25.0-46.0Access Hospital DaytonComment on above:Performed By: #### [id number] #### [facility] [address] [place] [address]Gogefesqkh (Bld) [Mass/Vol]15.4 g/tJUipcnk23.0-16.0Access Hospital DaytonComment on above:Performed By: #### [id number] #### [facility] [address] [place] [address]Hxfipxdlhso (Bld) [#/Vol]2.4 E9/LNormal1.0-4.0Access Hospital DaytonComment on above:Performed By: #### [id number] #### [facility] [address] [place] [address]Xjwvryoenmk/100 WBC (Bld)23.5 %Sqizqh25.0-50.0Access Hospital DaytonComment on above:Performed By: #### [id number] #### [facility] [address] [place] [address] 32434ABR (RBC) [Entitic mass]32.3 wzSvhahf15.0-34.0Access Hospital DaytonComment on above:Performed By: #### [id number] #### [facility] [address] [place] [address]MSKV (RBC) [Mass/Vol]34.5 g/vPVfvmmx95.4-36.0Access Hospital DaytonComment on above:Performed By: #### [id number] #### [facility] [address] [place] [address]70[address]TDQ (RBC) [Entitic vol]93.6 fVAtyyjs26.0-100.0Access Hospital DaytonComment on above:Performed By: #### [id number] #### [facility] [address] [place] [address]Ajgalcwyl (Bld) [#/Vol]0.9 E9/LNormal0.2-1.0Access Hospital DaytonComment on above:Performed By: #### [id number] #### [facility] [address] [place] [address]Dqtfdprbwcs (Bld) [#/Vol]6.6 E9/LNormal2.0-7.5FSouthwest General Health CenterComment on above:Performed By: #### [id number] #### [facility] [address] [place] [address]64[address]Yrsxrojgljb/100 WBC (Bld)64.6 %Botxwm26.0-75.0Access Hospital DaytonComment on above:Performed By: #### [id number] #### [facility] [address] [place] [address] 345[address]Zwmtinxj mean volume (Bld) [Entitic vol]7.5 fLNormal6.4-10.8 Access Hospital DaytonComment on above:Performed By: #### [id number] #### [facility] [address] [place] [address]Kdmobrain (Bld) [#/Vol]383.0 E9/XBmcnqh352.0-500.0Access Hospital DaytonComment on above:Performed By: #### [id number] #### [facility] [address] [place] [address]26[address]KII (Bld) [#/Vol]4.8 E12/LNormal4.3-5.9Access Hospital DaytonComment on above:Performed By: #### [id number] #### [facility] [address] [place] [address]IZQ corrected for nucl RBC Auto (Bld) [#/Vol]10.2 E9/LNormal 4.0-11.0Access Hospital DaytonComment on above:Performed By: #### [id number] #### [facility] [address], [place] [address]NCAfd 05-57-8975Hiiyoyl [Mass/Vol]4.3 g/dLNormal3.3-5.0Access Hospital DaytonComment on above:Performed By: #### [id number] #### [facility] [address], [place] [address]Ryuvbxp/Globulin (S) [Mass conc ratio]1.4Lnjuqn9.1-2.2FSouthwest General Health CenterComment on above:Performed By: #### [id number] #### [facility] [address] [place] [address] 19186HWW [Catalytic activity/Vol]111 Int._Unit/RXraz24-41EqpapvAccess Hospital DaytonComment on above:Performed By: #### [id number] #### [facility] [address] [place] [address]SOT No additional P-5'-P [Catalytic activity/Vol]18 Int._Unit/L Normal6-46Access Hospital DaytonComment on above:Performed By: #### [id number] #### [facility] [address] [place] [address]Fmxsb gap [Moles/Vol]13 mmol/LNormal6-16Access Hospital DaytonComment on above:Performed By: #### [id number] #### [facility] [address] [place] [address]96[address]HHZ [Catalytic activity/Vol]16 Int._Unit/LNormal5-43Access Hospital DaytonComment on above:Performed By: #### [id number] #### [facility] [address], [place] [address]Zlwlzhhej [Mass/Vol]0.8 mg/dLNormal0.0-1.1FSouthwest General Health CenterComment on above:Performed By: #### [id number] #### [facility] [address], [place] [address]Ixydxox [Mass/Vol]9.4 mg/dLNormal8.9-11.1FSouthwest General Health CenterComment on above:Performed By: #### [id number] #### [facility] [address], [place] [address]Ccqwgmrh [Moles/Vol]105 mmol/KHoeozt627-712IzsnjeAccess Hospital DaytonComment on above:Performed By: #### [id number] #### [facility] [address], [place] [address]JT1 [Moles/Vol]26 mmol/WDkidly83-18WymmnuAccess Hospital Dayton Comment on above:Performed By: #### [id number] #### [facility] [address], [place] [address]Tzvlzeakqy [Mass/Vol]1.1 mg/dLNormal0.5-1.3FSouthwest General Health CenterComment on above:Performed By: #### [id number] #### [facility] [address], [place] [address]Mgpipetk (S) [Mass/Vol]2.8 g/dLNormal1.4-4.0Access Hospital DaytonComment on above:Performed By: #### [id number] #### [facility] [address], [place] [address]Gxdbqzk [Mass/Vol]100 mg/fVJrgahg35-770IvlwhhAccess Hospital DaytonComment on above:Performed By: #### [id number] #### [facility] [address], [place] [address]Dungbjbwe [Moles/Vol]4.5 mmol/LNormal3.5-5.3FSouthwest General Health CenterComment on above:Performed By: #### [id number] #### [facility] [address], [place] [address]Mkyhtkj [Mass/Vol]7.1 g/dLNormal6.0-7.8Access Hospital DaytonComment on above:Performed By: #### [id number] #### [facility] [address], [place] [address]Oaicmr [Moles/Vol]139 mmol/OJkscdr978-639AlvilpAccess Hospital DaytonComment on above:Performed By: #### [id number] #### [facility] [address], [place] [address]Katk nitrogen [Mass/Vol]16 mg/dLNormal5-21Access Hospital DaytonComment on above:Performed By: #### [id number] #### [facility] [address], [place] [address]Xwux nitrogen/Creatinine [Mass ratio]14 No QtdoqAvaadc62-94 Access Hospital DaytonComment on above:Performed By: #### [id number] #### [facility] [address], [place] [address]VdrS3bzx 21-40-6974UyP1s (Bld) [Mass fraction]5.5 %Normal<=5.9 Access Hospital DaytonComment on above:Performed By: #### [id number] #### [facility] [address], [place] [address]Yhpmc Panelon 93-56-6251Nlyddajgcup [Mass/Vol]160 mg/dLNormal 120-200Access Hospital DaytonComment on above:Performed By: #### [id number] #### [facility] [address], [place] [address]Hepyinitqeo in HDL [Mass/Vol]36 mg/dLInvalid Interpretation CodeAccess Hospital DaytonComment on above:Result Comment: '>= 60 LOW RISK' '<= 40 HIGH RISK'Performed By: #### [id number] #### [facility] [address], [place] [address]Yuiwzqudufl in LDL [Mass/Vol]115 mg/dLNormal<=129Access Hospital DaytonComment on above:Performed By: #### [id number] #### [facility] [address], [place] [address]Omiugbdhxfv in VLDL [Mass/Vol]27 mg/dLNormal7-40Access Hospital DaytonComment on above:Performed By: #### [id number] #### [facility] [address], [place] [address]Ojsedwzjeacz [Mass/Vol]134 mg/dLNormal<=149Access Hospital DaytonComment on above:Performed By: #### [id number] #### [facility] [address], [place] [address]Bihqiudrxed 66-82-2950Ibbipnalm [Mass/Vol]2.0 mg/dLNormal 1.3-2.4Fisher [facility] Hospital CenterComment on above:Performed By: #### [id number] #### [facility] [address] [place] [address]Fyl B12on 15-04-0023Jfayloptp (Vitamin B12) [Mass/Vol]684 pg/mL Cttutd90-1317RdofkxAccess Hospital DaytonComment on above:Performed By: #### [id number] #### [facility] [address] [place] [address]uVAIym 86-20-2507jLTT91 mL/min/1.73 b9Dvvczu>=59Access Hospital DaytonComment on above:Performed By: #### [id number] #### [facility] [address] [place] [address]Fiqy OR Intraoperative Recordon 72-37-3594Epun OR Intraoperative RecordMain OR Intraoperative Record IntraOp Document Type FT Summary Primary Physician: YESENIA YUSUF MD Finalized Date/Time: 10/23/24 12:38:57 Pt. Name: JOSELITO VIDAL/Sex: 1970 Female Med Rec #: [id number] Physician: YESENIA YUSUF MD Financial #: [id number] Pt. Type: A Room/Bed: [facility] Admit/Disch: 10/19/24 08:59:52 - 10/19/24 14:50:00 Institution: [...] Case Attendee Chris BRYANT, Esther YUSUF MD, Regina Walker Role Performed HUMAN RESOURCE PROFESSIONAL Surgeon - Primary Steamer Operator - Primary Time In 10/19/24 12:22:00 [...] Kassandra Luis Role Performed Scrub - Primary Substation Electrician Supervisor Time In 10/19/24 12:22:00 10/19/24 12:25:00 Time Out 10/19/24 12:44:00 10/19/24 12:44:00 Procedure CYSTOSCOPY W/ HOMIUM CYSTOSCOPY W/ HOMIUM LASER(Right), LASER(Right), CYSTOSCOPY RETROGRADE CYSTOSCOPY RETROGRADE STENT INSERTION(Right) STENT INSERTION(Right) Comments Last Modified By: Regina Walker Kelsie E 10/19/24 12:56:16 10/19/24 12:56:16 General Comments: MARY FULTON, [employer] AND HEAD MIXER, IN ATTENDANCE.JOSE LAMBERT. Perioperative Protocols FT Pre-Care Text: Implements protective [...] protective measures to preve (more content not included)...Normal Access Hospital DaytonCHEMISTRYOrdered By: Miranda Shea on 30-45-4911Fxbwzub [Mass/Vol]101 mg/mNJvqm56 - 99 mg/dLSAINT FRANC[facility] [place] POC SubsectionComment on above:Result Comment: Notified RN/NANCYOC UsernamBEBO OmerInconnie Interpretation CodeSAINT FRANCIS [facility] [place] [facility]OC SubsectionSodium [Moles/Vol]248529448422 mmol/LInvalid Interpretation Code [facility]OC SubsectionSodium [Moles/Vol]496472418 mmol/LInvalid Interpretation Code [facility] SubsectionCapillary Glucose POCon 47-06-6818Ikjfvup [Mass/Vol]101 mg/dL Bofx46-90IlxrjqAccess Hospital DaytonComment on above:Result Comment: Notified RN/MDPerformed By: #### [id number] ####[facility] [address] [place] [address]Uqfbwuizi Instructionson 92-72-0238Xkgnuszbr InstructionsDischarge Instructions JOSELITO VIDAL :1970 Visit Date:10/19/2024 Inpatient Discharge Instructions Your Care Team Admitting Physician - YESENIA YUSUF MD Referring Physician - TREVOR RAMIREZ, YESENIA What to do next Instructions From Your [...] minimal amount of drainage and/or bleeding, Activity astolerated Discharge Restrictions No driving for 24 hrs, [...] YESENIA YUSUF When: Comments: 6 WKS WITH STEFANIA, GERRY PRIOR Where: [address] [place] [phone] Business (1) Medications What How Much When Instructions Next Dose New hyoscyamine (Levsin 0.125 mg SL Tab) 1 Tablets By Mouth 4 times a day as needed for for spasm Pickup at [facility] New oxycodone (Roxicodone 5 mg Tab) 1 Tablets By Mouth Every 6 hours as needed for for pain Pickup at [facility] New tamsulosin (Flomax 0.4 mg Cap) 1 Capsules By Mouth Every day Pickup at [facility] Unchanged APAP/ butalbital/ caffeine (Esgic [...] Once a day (at bedtime) as needed forfor sleep Unchanged tizanidine (tizanidine 4 mg oral capsule) 2 Capsules By Mouth At bedtime Unchanged topiramate (topiramate 25 mg Tab) 1 Tablets By Mouth Every day Pharmacy Information [facility]: [address] [place], [place] [phone] Implanted/Removed This Visit Notice: You have devices implanted this visit that may not be MRI compatible. Implanted CYSTOSCOPY W/ HOMIUM LASER Ureter R BENAVIDES URETERAL STENT CASCADE 6FR 10/19/2024 Education Materials [facility] [place], [place] Dr. Bradford Hagen Post-operative Instructions for Ureteroscopy, Laser Lithotripsy, Stone Extraction and Stent Placement There are no incisions or dressings to be concerned with, as the procedure was performed inside theurinary system. For 24 hours after surgery: ??? [...] be careful not to (more content not included)...[facility]rium Medical CenterComment on above:Result Comment: Electronically Signed By: Mily Singh\.br\Date and Time Signed: 10/19/24 13:38ESTInpatient Patient Summaryon 26-72-6469Gkciehiqn Patient Summary Inpatient Patient Summary [address] [address] [facility] Clinical Discharge Instructions PERSON INFORMATION Name: JOSELITO VIDAL PHYSICIANS Admitting Physician: TREVOR RAMIREZ, YESENIA Attending Physician: YESENIA YUSUF MD PCP: ELLIE INGRAM CNP Discharge Diagnosis: Comment: PATIENT EDUCATION INFORMATION Instructions: Medication Leaflets: Follow up: With: Address: When: YESENIA YUSUF [address] [place] [phone] Business (1) Comments: 6 WKS WITH GERRY AGUIAR PRIOR Type Location Start [facility] Surgery [facility] Surgical Services 10/19/2024 1:00 PM 10/19/2024 1:30 PM Confirmed Pain Management - New () .Pain [facility] 10/23/2024 10:15 AM 10/23/2024 10:45 AM Confirmed MEDICATION LIST New Medications [facility], [address] [place], [place] [id number], [phone] hyoscyamine (Levsin 0.125 mg SL Tab) 1 Tablets By Mouth 4 times a day as needed for spasm. Refills:0. oxycodone (Roxicodone 5 mg Tab) 1 Tablets [...] Tab) 1 Tablets By Mouth every day. Comment:[facility]rium Medical CenterMain OR PACU I Recordon 91-12-3857Iebx OR PACU I RecordMain OR PACU I Record PACU Phase I Document Type FT Summary Primary Physician: YESENIA YUSUF MD Finalized Date/Time: 10/19/24 13:30:11 Pt. Name: JOSELITO VIDAL/Sex: 1970 Female Med Rec #: [id number] Physician: YESENIA YUSUF MD Financial #: [id number] Pt. Type: A Room/Bed: [facility]/ Admit/Disch: 10/19/24 08:59:52 - Institution: [...] individualized perioperative plan of care The patient's rightto privacy is maintained The patient's value system, [...] with or improved from baseline levels established preoperativelyThe patient's cardiovascular status is consistent with or improved from baseline levels established preoperatively The patient's cardiovascular status is consistent with or improved from baseline levels established preoperatively The patient demonstrates and/or reports adequate pain control throughout the perioperative period The patient received appropriate medication(s), safely administered during the perioperativeperiod Acuity Level PACU I FT Entry 1 Start Time 10/19/24 12:46:00 Stop Time 10/19/24 13:16:00 Acuity Level Acuity Level I Last Modified By: Suki Mcbride RN 10/19/24 13:29:42 Finalized By: Suki Mcbride RN Document Signatures Signed By: Suki Mcbride RN 10/19/24 13:30 Suki Mcbride RN 10/19/24 13:30NormbongRutherford Regional Health Systemclemente [facility] CenterMain OR PACU II Recordon 48-71-4943Mlof OR PACU II RecordMain OR PACU II Record PACU Phase II Document Type FT Summary Primary Physician: YESENIA YUSUF MD Finalized Date/Time: 10/19/24 14:59:43 Pt. Name: YOUNG JOSELITODORIS Joseph/Sex: 1970 Female Med Rec #: [id number] Physician: YESENIA YUSUF MD Financial #: [id number] Pt. Type: A Room/Bed: [place] [address] Admit/Disch: 10/19/24 08:59:52 - Institution: Case Times [...] and monitors body temperature Evaluates postoperative respiratory statusEvaluates postoperative cardiac status Evaluates postoperative neurological status [...] individualized perioperative plan of care The patient's rightto privacy is maintained The patient's value system, [...] with or improved from baseline levels established preoperativelyThe patient's cardiovascular status is consistent with or improved from baseline levels established preoperatively The patient's neurological status is consistent with or improved from baseline levels established preoperatively The patient demonstrates and/or reports adequate pain control throughout the perioperative period The patient received appropriate medication(s), safely administered during the perioperativeperiod Finalized By: Mily Singh Document Signatures Signed By: Mily Singh 10/19/24 14:59[facility] Medical CenterOperative Report on 18-50-3310Jgmhwwmyx ReportOperative Report Patient: JOSELITO VIDAL Age: 53 years [...] in the room agreed. A well-lubricated 22 Algerian scopic sheath with 30 lens was sent to urethral meatus and advanced into the bladder. We then turned attention to theright ureteral orifice which we cannulated with a [...] KUB, renal ultrasound prior to office appointment. [facility]rium Medical CenterComment on above:Result Comment: Electronically Signed By: TREVOR RAMIREZ, YESENIA\.br\Date and Time Signed: 10/19/24 13:47 ESTOutpatient Surgery Discharge Instructionon 51-87-7337Fliqkgojoo Surgery Discharge InstructionOutpatient Surgery Discharge Instruction [place] [id number] Patient Discharge Instructions PERSON INFORMATION Name: JOSELITO [...] make important decisions for 24 hours, Do notdrink alcoholic beverages for 24 hours Call Your Doctor For: Temperature above 101.5 degrees, Redness, swelling, or pus at operative site,Severe pain at the operative site, Persistent vomiting [...] when discharge instructions were given Patient Signature Date Clinican/Nurse Signature Date Follow up: With: Address: When: YESENIA AVERYCHRISTOPHER [address] [place] [address] [phone] Business (1) Comments: 6 WKS WITH GERRY AGUIAR Type Location Start [facility] Surgery [facility] Surgical Services 10/19/2024 1:00 PM 10/19/2024 1:30 PM Confirmed Pain Management - [facility] () FT.Pain Mgmt Fellows 10/23/2024 10:15 AM 10/23/2024 10:45 AM Confirmed [...] to serve you. Thank you for choosing [facility] HERE ARE THE MEDICATION CHANGES THAT OCCURRED DURING YOUR HOSPITAL STAY New Medications [facility], [address] [place] [id number], [phone] hyoscyamine (Levsin 0.125 mg SL Tab) 1 Tablets By Mouth 4 times a day as needed for spasm. Refills:0. oxycodone (Roxicodone 5 mg Tab) 1 Tablets [...] every day. PATIENT EDUCATION INFORMATION Instructions: Medication Leaflets:[facility] Medical CenterPatient Education - Texton 27-46-0079Dyhokxu Education - TextPatient Education - TextNormalAccess Hospital DaytonXR Chest 2 Viewson 97-71-2890WY Chest 2 ViewsExam Date/Time: 10/12/2024 14:26 EST Reason for Exam: [...] Otto Meza MD Transcribed by: GREGG Technologist: BRIANProvidence HospitalBMPon 02-35-5155Vhgqv gap [Moles/Vol]10 mmol/LNormal6-16[facility] Comment on above:Performed By: #### [id number] #### Access [facility] [address], [place] [address]Xvbxjde [Mass/Vol]8.6 mg/dLLow8.9-11.1[facility] CenterComment on above:Performed By: #### [id number] #### [facility] [address], [place] [address]Cfdsmrfi [Moles/Vol]107 mmol/HFxcrmg430-941HcsrkqAccess Hospital DaytonComment on above:Performed By: #### [id number] #### [facility] [address], [place] [address]JS3 [Moles/Vol]27 mmol/XZuymke34-01AozzvsAccess Hospital [facility] Comment on above:Performed By: #### [id number] #### [facility] [address], [place] [address]Mfxceqiiqr [Mass/Vol]0.9 mg/dLNormal0.5-1.3FSouthwest General Health CenterComment on above:Performed By: #### [id number] #### [facility] [address], [place] [address]Dcvjrlt [Mass/Vol]73 mg/dPOrpemv07-622NlfohaAccess Hospital DaytonComment on above:Performed By: #### [id number] #### [facility] [address], [place] [address]Qobzxpzmf [Moles/Vol]4.3 mmol/LNormal3.5-5.3FSouthwest General Health CenterComment on above:Performed By: #### [id number] #### [facility] [address], [place] [address]Xagsld [Moles/Vol]140 mmol/RAjprsq488-640HztqwsAccess Hospital DaytonComment on above:Performed By: #### [id number] #### [facility] [address] [place] [address]Lkpw nitrogen [Mass/Vol]10 mg/dLNormal5-21[facility] DaytonComment on above:Performed By: #### [id number] #### [facility] [address], [place] [address]Gqdg nitrogen/Creatinine [Mass ratio]11 No EhcmqTkqwmf74-40 [facility] DaytonComment on above:Performed By: #### [id number] #### [facility] [address], [place] [address]EVK w/ Auto Diffon 84-19-3309Yrjdosxpk/100 WBC (Bld)0.6 %Normal 0.0-2.0[facility] DaytonComment on above:Performed By: #### [id number] #### [facility] [address], [place] [address]Aasmequdb/Leukocytes Auto (Bld) [Pure # fraction]0.0 E9/LNormal 0.0-0.2FSouthwest General Health CenterComment on above:Performed By: #### [id number] #### [facility] [address] [place] [address]Skauhsybsni (Bld) [#/Vol]0.2 E9/LNormal0.0-0.5FSouthwest General Health CenterComment on above:Performed By: #### [id number] #### [facility] [address] [place] [address]Xfxleqrhxra/100 WBC (Bld)2.8 %Normal0.0-8.0[facility] DaytonComment on above:Performed By: #### [id number] #### [facility] [address] [place] [address]Wcivurpcphw distribution width (RBC) [Ratio]14.7 %High10.9-14.2 [facility] DaytonComment on above:Performed By: #### [id number] #### [facility] [address] [place] [address]Isntbilcky (Bld) [Volume fraction]44.4 %Thklmh50.0-46.0[facility] DaytonComment on above:Performed By: #### [id number] #### [facility] [address] [place] [address]Ijspgjsbvs (Bld) [Mass/Vol]14.9 g/iMIpxpbn61.0-16.0[facility] DaytonComment on above:Performed By: #### [id number] #### [facility] [address] [place] [address]Vzrahmrwnvp (Bld) [#/Vol]2.2 E9/LNormal1.0-4.0[facility] DaytonComment on above:Performed By: #### [id number] #### [facility] [address] [place] [address]Agdgvjrounl/100 WBC (Bld)29.1 %Acpwuu33.0-50.0[facility] DaytonComment on above:Performed By: #### [id number] #### [facility] [address] [place] [address]ALG (RBC) [Entitic mass]31.6 yhVmrdug50.0-34.0[facility] DaytonComment on above:Performed By: #### [id number] #### [facility] [address] [place] [address] 56[address]RWOO (RBC) [Mass/Vol]33.5 g/rAWjszmy06.4-36.0[facility] DaytonComment on above:Performed By: #### [id number] #### [facility] [address] [place] [address]HMO (RBC) [Entitic vol]94.3 yIUdotcp93.0-100.0[facility] DaytonComment on above:Performed By: #### [id number] #### [facility] [address] [place] [address] 240[address]Tpxblzhii (Bld) [#/Vol]0.7 E9/LNormal0.2-1.0[facility] DaytonComment on above:Performed By: #### [id number] #### [facility] [address] [place] [address] 88[address]Zjhvszbnigs (Bld) [#/Vol]4.4 E9/LNormal2.0-7.5FSouthwest General Health CenterComment on above:Performed By: #### [id number] #### [facility] [address] [place] [address]Wxhvihlqapm/100 WBC (Bld)58.8 %Isexgz18.0-75.0[facility] DaytonComment on above:Performed By: #### [id number] #### [facility] [address] [place] [address] 98[address]Drqddumq745.0 E9/FNzdrgh965.0-500.0[facility] Comment on above:Performed By: #### [id number] #### [facility] [address], [place] [address]Tjhvjwqv mean volume (Bld) [Entitic vol]7.7 fLNormal6.4-10.8 [facility] DaytonComment on above:Performed By: #### [id number] #### [facility] [address] [place] [address] 280[address]HHC (Bld) [#/Vol]4.7 E12/LNormal4.3-5.9[facility] DaytonComment on above:Performed By: #### [id number] #### [facility] [address] [place] [address]MDM corrected for nucl RBC Auto (Bld) [#/Vol]7.5 E9/LNormal 4.0-11.0[facility] DaytonComment on above:Performed By: #### [id number] #### [facility] [address] [place] [address] 10773RWIITMQJKEqwlftl By: SYSTEM SYSTEM on 53-96-9988Pdquw gap [Moles/Vol]10 mmol/LNormal6 - 16 mEq/LRemisol ChemCalcium [Mass/Vol]8.6 mg/dLLow 8.9 - 11.1 mg/dLRemisol ChemChloride [Moles/Vol]107 mmol/XEkphsx225 - 111 mmol/L Remisol ChemCO2 [Moles/Vol]27 mmol/QDghfzk95 - 31 mmol/LRemisol ChemCreatinine [Mass/Vol]0.9 mg/dLNormal0.5 - 1.3 mg/dLRemisol DlkcbSIT72 mL/min/1.73 g6Uoxzxq >=59mL/min/1.73 f4Fskmore ChemGlucose [Mass/Vol]73 mg/cXVhviwz64 - 199 mg/dL Remisol ChemPotassium [Moles/Vol]4.3 mmol/LNormal3.5 - 5.3 mmol/LRemisol Chem Sodium [Moles/Vol]140 mmol/LQethmu347 - 145 mmol/LRemisol ChemUrea nitrogen [Mass/Vol]10 mg/dLNormal5 - 21 mg/dLRemisol ChemUrea nitrogen/Creatinine [Mass ratio]11 mg/ipHhdzrg48 - 20Remisol ChemCOAGULATIONOrdered By: Christal Isidro on 44-04-9893eACX Coag (PPP) [Time]33.5 eVabrwd46.1 - 36.5 second(s)[facility] Auto CoagComment on above:Interpretive Data: Parameter 15 days - 4 weeks 1 - [...] the same coagulation reagent and instrumentation as [facility]. Currently there are no coagulation studies available worldwide for children to 14 days, andno normal ranges. Heparin therapeutic range (represented by Anti-Factor Xa activity of 0.2 - 0.4 U/mL) corresponds to PTT of 56.6 - 109.0 sec.INR Coag (PPP) [Relative time]1.03 {INR}Invalid Interpretation CodeSA[facility] [place] Auto CoagComment on above:Interpretive Data: INR results are specifically intended to assess patients stabilized on long-term Anticoagulation therapy suggested INR s Less Intensive Anticoagulation 2.0 3.0 Conventional Range 3.0 4.5PT Coag (PPP) [Time]11.5 sNormal9.4 - 12.5 second(s) [facility] Auto CoagComment on above:Interpretive Data: 15 days - 4 weeks 1 - [...] the same coagulation reagent and instrumentation as [facility]. Currently there are no coagulation studies available worldwide for children to 14 days, andno normal ranges.HEMATOLOGYOrdered By: SYSTEM SYSTEM on 87-04-1722Rtderatjx/100 WBC (Bld)0.6 %Normal0.0 - 2.0 %Remisol HemeBasophils/Leukocytes Auto (Bld) [Pure # fraction]0.0 E9/LNormal0.0 - 0.2 E9/LRemisol HemeEosinophils (Bld) [#/Vol]0.2 E9/LNormal0.0 - 0.5 E9/LRemisol HemeEosinophils/100 WBC (Bld)2.8 %Normal0.0 - 8.0 %Remisol HemeErythrocyte distribution width (RBC) [Ratio]14.7 %High10.9 - 14.2 %Remisol HemeHematocrit (Bld) [Volume fraction]44.4 %Roozvm91.0 - 46.0 % Remisol HemeHemoglobin (Bld) [Mass/Vol]14.9 g/oTWdwmtm67.0 - 16.0 gm/dLRemisol HemeLymphocytes (Bld) [#/Vol]2.2 E9/LNormal1.0 - 4.0 E9/LRemisol Heme Lymphocytes/100 WBC (Bld)29.1 %Cttayl52.0 - 50.0 %Remisol HemeMCH (RBC) [Entitic mass]31.6 eoDrlimi16.0 - 34.0 pgRemisol HemeMCHC (RBC) [Mass/Vol]33.5 g/dL Pidixx77.4 - 36.0 gm/dLRemisol HemeMCV (RBC) [Entitic vol]94.3 yANausev13.0 - 100.0 fLRemisol HemeMonocytes (Bld) [#/Vol]0.7 E9/LNormal0.2 - 1.0 E9/LRemisol HemeMonocytes/100 WBC (Bld)8.7 %Normal4.0 - 14.0 %Remisol HemeNeutrophils (Bld) [#/Vol]4.4 E9/LNormal2.0 - 7.5 E9/LRemisol HemeNeutrophils/100 WBC (Bld)58.8 % Ckpqwe72.0 - 75.0 %Remisol WvghUsfgsgcg797.0 E9/ZDsfglu075.0 - 500.0 E9/LRemisol HemePlatelet mean volume (Bld) [Entitic vol]7.7 fLNormal6.4 - 10.8 fLRemisol HemeRBC (Bld) [#/Vol]4.7 E12/LNormal4.3 - 5.9 E12/LRemisol HemeWBC corrected for nucl RBC Auto (Bld) [#/Vol]7.5 E9/LNormal4.0 - 11.0 E9/LRemisol HemePT & PTTon 17-16-8977oRRO Coag (PPP) [Time]33.5 second(s)Xbydoo28.1-36.5[facility] CenterComment on above:Result Comment: Parameter 15 days - 4 weeks 1 - [...] the same coagulation reagent and instrumentation as [facility] Currently there are no coagulation studies available worldwide for children to 14 days, andno normal ranges. Heparin therapeutic range (represented by Anti-Factor Xa activity of 0.2 - 0.4 U/mL) corresponds to PTT of 56.6 - 109.0 sec.Performed By: #### [id number] #### [facility] [address], [place] [address]ROW Coag (PPP) [Relative time]1.03 {INR}Invalid Interpretation CodeFisher [facility] Hospital CenterComment on above:Result Comment: INR results are specifically intended to assess patients stabilized on long-term Anticoagulation therapy suggested INR???s ???Less Intensive Anticoagulation??? 2.0 ??? 3.0 Conventional Range 3.0 ??? 4.5Performed By: #### [id number] #### [facility] [address], [place] [address]OV Coag (PPP) [Time]11.5 second(s)Normal9.4-12.5FSouthwest General Health CenterComment on above:Result Comment: 15 days - 4 weeks 1 - [...] the same coagulation reagent and instrumentation as [facility]. Currently there are no coagulation studies available worldwide for children to 14 days, andno normal ranges.Performed By: #### [id number] #### [facility] [address], [place] [address]sGEZdf 81-15-5833lNUS22 mL/min/1.73 q6Dybsre>=59[facility] DaytonComment on above:Performed By: #### [id number] #### [facility] [address], [place] [address]Aiaxbndkik Visit Summaryon 18-82-0410Zpzyglhgwn Visit Summary Ambulatory Visit Summary JOSELITO VIDAL :1970 Visit Date:10/09/2024 Ambulatory Visit Instructions Your Diagnosis Ureteral stone with hydronephrosis Your Care Team Attending Physician - NKANSAHYESENIA FU MD Primary Care Physician - ELLIE INGRAM [...] Following Appointments Follow Up with TREVOR RAMIREZ, YESENIA, DEAN When: Where: Medications What How Much When Instructions Unchanged APAP/ butalbital/ caffeine (Esgic 325 mg-50 mg-40 mg oral capsule) By Mouth Every 4 hoursContact prescribing physician if questions or concerns Unchanged [...] oral tablet) Contact prescribing physician if questions orconcerns Unchanged fludrocortisone (fludrocortisone 0.1 mg Tab) By [...] TAB) 0 Contact prescribing physician if questions orconcerns Unchanged ondansetron (Zofran 4 mg Tab) By [...] 2 times a day Contact prescribing physician ifquestions or concerns Allergies No Known Medication Allergies [...] (biopsy). Tell a hea (more content not included)...[facility] Provider Letteron [phone] LetterProvider Letter October 09, 2024 JOSELITO VIDAL [address] [place] [address] : 1970 To Whom It May Concern, Please excuse Blank Niño (caregiver for above patient) from work. Date of Illness: From: 10/19/24 To: 10/20/24 May Return to Work On: 10/20/24 Sincerely, Dr Yesenia GivensUniversity Hospitals Geneva Medical CenterUrology Office/Clinic Noteon [phone] Office/Clinic NoteUrology Office/Clinic Note HPI Staff 53 year old female new patient here for follow up to [facility] 09/23/24 due to ureteral stone CT [...] kidney stone and JOSE. Denies hx of [place] or CVA. Not on anticoagulation. BBSQ 7 Portions of this record may have been created with voice recognition artificial intelligence software, specifically besomebody., [employer] and or [employer]. Substitutions may have occurred due to the inherent limitations of voice recognition and artificial intelligence software. 1. Ureteral stone with hydronephrosis (N13.2: Hydronephrosis with renal and ureteral calculous obstruction) Pt presented to [facility] ER 09/23/24 due to R sided flank pain. CT AP w con 09/23/24 - obstructing 5 mm R UVJ stone with mild to moderate upstream dilatation. Kidney function - Cr 1.0, eGFR 68. Still experiencing back pain. Pt states pain does not resolve. Grandmother had kidney stones. First stone event. Of note, pt states that she presented to the ER ayear ago with UR for 24 hrs. Pt [...] pain, infection, inability to break up the stone,ureteral obstruction, cardiac arrhythmias, damage to surrounding structures and need for additionalprocedures; ureteroscopy - bleeding, pain, infection, damage to [...] with urine strainer today. Pt to call andcancel surgery if she sees stone pass. Pt to keep stone to be sent for analysis. -Strainer provided today, pt to start straining urine, pt to call if she passes stone -Will schedule cysto, R URS, R RPG, R laser litho, R stent placement. Risks as above She presents with an impacted distal right ureteral stone with hydronephrosis. We discussed doing aright endoscopy, lithotripsy, stent placement if patient does not pass stone in a few days. She wassent home with a strainer as well. She [...] decisions made by me. Authenticated by Dr. Shane Brooks on 10/09/2024 12:01:37. Problem List/Past Medical History Ongoing Arthritis of right knee Disorder of auton (more content not included)...NormalAccess Hospital DaytonComment on above:Result Comment: Electronically Signed By: YESENIA YUSUF MD\.br\Date and Time Signed: 10/09/24 12:01 EST\.br\Electronically Co- Signed By: Suly Burrell\.br\Date and Time Co-Signed: 10/09/24 11:42 EST ECG 12 lead (Clinic Performed)on 34-48-6248WZU no ischemiaCPACSUC Health Work Phone: t3 Totalon 96-21-8873D7 [Mass/Vol]94 ng/dLInvalid Interpretation Rjex42-407JtovinAccess Hospital DaytonComment on above:Result Comment: Performed at: [facility] [address] [place] [address] [id number] PhD Cameron MelaraPerformed By: #### [id number] #### [facility] [address] [place] [address]QMK w/ Auto Diffon 43-05-6974Jbyrimpjd/100 WBC (Bld)1.0 %Normal 0.0-2.0[facility] DaytonComment on above:Performed By: #### [id number] #### [facility] [address] [place] [address] 12482Viucwygop/Leukocytes Auto (Bld) [Pure # fraction]0.1 E9/LNormal 0.0-0.2FSouthwest General Health CenterComment on above:Performed By: #### [id number] #### [facility] [address] [place] [address] 649[address]Uqdawkmpftg (Bld) [#/Vol]0.2 E9/LNormal0.0-0.5FSouthwest General Health CenterComment on above:Performed By: #### [id number] #### [facility] [address] [place] [address] 04160Emaudkjdnvd/100 WBC (Bld)2.5 %Normal0.0-8.0[facility] DaytonComment on above:Performed By: #### [id number] #### [facility] [address] [place] [address] 38222Srakmonojen distribution width (RBC) [Ratio]14.1 %Normal 10.9-14.2FSouthwest General Health CenterComment on above:Performed By: #### [id number] #### [facility] [address] [place] [address] 78137Vbchpxhszc (Bld) [Volume fraction]42.5 %Raluiq58.0-46.0[facility] DaytonComment on above:Performed By: #### [id number] #### [facility] [address] [place] [address] 00827Sdwgoegcas (Bld) [Mass/Vol]14.4 g/gWUuyrtb71.0-16.0[facility] DaytonComment on above:Performed By: #### [id number] #### [facility] [address] [place] [address] 812[address]Lahosutxseb (Bld) [#/Vol]2.3 E9/LNormal1.0-4.0[facility] DaytonComment on above:Performed By: #### [id number] #### [facility] [address] [place] [address] 30830Vorjezvhqfc/100 WBC (Bld)28.9 %Tlpgjv99.0-50.0[facility] DaytonComment on above:Performed By: #### [id number] #### [facility] [address] [place] [address] 699[address]QKK (RBC) [Entitic mass]31.4 gkOwvfrf67.0-34.0[facility] DaytonComment on above:Performed By: #### [id number] #### [facility] [address] [place] [address] 97080ZKCC (RBC) [Mass/Vol]33.9 g/fANzijea69.4-36.0[facility] DaytonComment on above:Performed By: #### [id number] #### [facility] [address] [place] [address] 64321KGM (RBC) [Entitic vol]92.8 nXLcqtgi78.0-100.0[facility] DaytonComment on above:Performed By: #### [id number] #### [facility] [address] [place] [address] 83313Qvzmnlsny (Bld) [#/Vol]0.7 E9/LNormal0.2-1.0[facility] DaytonComment on above:Performed By: #### [id number] #### [facility] [address] [place] [address] 77790Rfxtpdvzxdq (Bld) [#/Vol]4.7 E9/LNormal2.0-7.5FSouthwest General Health CenterComment on above:Performed By: #### [id number] #### [facility] [address] [place] [address] 88114Jgrfikeyokl/100 WBC (Bld)58.7 %Xnmaby97.0-75.0[facility] DaytonComment on above:Performed By: #### [id number] #### [facility] [address] [place] [address] 18818Juzpmgcl167.0 E9/KSifgca662.0-500.0[facility] Comment on above:Performed By: #### [id number] #### [facility] [address] [place] [address] 38[address]Ylzdxqqr mean volume (Bld) [Entitic vol]7.6 fLNormal6.4-10.8 [facility] DaytonComment on above:Performed By: #### [id number] #### [facility] [address] [place] [address] 98459IMD (Bld) [#/Vol]4.6 E12/LNormal4.3-5.9[facility] DaytonComment on above:Performed By: #### [id number] #### [facility] [address] [place] [address]HMY corrected for nucl RBC Auto (Bld) [#/Vol]7.9 E9/LNormal 4.0-11.0[facility] DaytonComment on above:Performed By: #### [id number] #### [facility] [address] [place] [address] 95[address]BVAeq 58-68-4980Fjyrvav [Mass/Vol]4.1 g/dLNormal3.3-5.0[facility] DaytonComment on above:Performed By: #### [id number] #### [facility] [address] [place] [address] 09316Srwrfao/Globulin (S) [Mass conc ratio]1.4Swxqto9.1-2.2FSouthwest General Health CenterComment on above:Performed By: #### [id number] #### [facility] [address] [place] [address]UJF [Catalytic activity/Vol]111 Int._Unit/FYjmi74-61JzpkmjAccess Hospital DaytonComment on above:Performed By: #### [id number] #### [facility] [address], [place] [address]EBF No additional P-5'-P [Catalytic activity/Vol]14 Int._Unit/L Normal6-46[facility] DaytonComment on above:Performed By: #### [id number] #### [facility] [address], [place] [address]Jtwvo gap [Moles/Vol]12 mmol/LNormal6-16[facility] Hospital DaytonComment on above:Performed By: #### [id number] #### [facility] [address], [place] [address]CDX [Catalytic activity/Vol]12 Int._Unit/LNormal5-43[facility] DaytonComment on above:Performed By: #### [id number] #### [facility] [address], [place] [address]Kbbcmwjso [Mass/Vol]0.4 mg/dLNormal0.0-1.1FSouthwest General Health CenterComment on above:Performed By: #### [id number] #### [facility] [address], [place] [address]Kjidfce [Mass/Vol]9.3 mg/dLNormal8.9-11.1FSouthwest General Health CenterComment on above:Performed By: #### [id number] #### [facility] [address], [place] [address]Onkgpwyc [Moles/Vol]108 mmol/GUaogxl221-065LqsuxtAccess Hospital DaytonComment on above:Performed By: #### [id number] #### [facility] [address], [place] [address]IU7 [Moles/Vol]25 mmol/YImlnyq36-56IegrfrAccess Hospital [facility] Comment on above:Performed By: #### [id number] #### [facility] [address], [place] [address]Hrejemhioe [Mass/Vol]1.1 mg/dLNormal0.5-1.3FSouthwest General Health CenterComment on above:Performed By: #### [id number] #### [facility] [address], [place] [address]Smgwruqm (S) [Mass/Vol]2.5 g/dLNormal1.4-4.0[facility] DaytonComment on above:Performed By: #### [id number] #### [facility] [address], [place] [address]Vywcssi [Mass/Vol]85 mg/gMIiepuo78-027VamotiAccess Hospital DaytonComment on above:Performed By: #### [id number] #### [facility] [address], [place] [address]Pvsibktft [Moles/Vol]4.4 mmol/LNormal3.5-5.3FSouthwest General Health CenterComment on above:Performed By: #### [id number] #### [facility] [address], [place] [address]Onfqcqj [Mass/Vol]6.6 g/dLNormal6.0-7.8[facility] DaytonComment on above:Performed By: #### [id number] #### [facility] [address], [place] [address]Bsmtzq [Moles/Vol]141 mmol/OTdhttp948-868HifzjvAccess Hospital DaytonComment on above:Performed By: #### [id number] #### [facility] [address], [place] [address]Vfpq nitrogen [Mass/Vol]13 mg/dLNormal5-21[facility] DaytonComment on above:Performed By: #### [id number] #### [facility] [address], [place] [address]Paok nitrogen/Creatinine [Mass ratio]12 No TugqoKvqkkn18-87 [facility] DaytonComment on above:Performed By: #### [id number] #### [facility] [address], [place] [address]UurX7lpu 82-53-2553YaX1f (Bld) [Mass fraction]5.8 %Normal<=5.9 [facility] DaytonComment on above:Performed By: #### [id number] #### [facility] [address], [place] [address]Ubzrx Panelon 52-44-5091Rchkgtpglwj [Mass/Vol]185 mg/dLNormal 120-200Access Hospital DaytonComment on above:Performed By: #### [id number] #### [facility] [address], [place] [address]Yjhtaaibtzq in HDL [Mass/Vol]40 mg/dLInvalid Interpretation CodeAccess Hospital DaytonComment on above:Result Comment: '>= 60 LOW RISK' '<= 40 HIGH RISK'Performed By: #### [id number] #### [facility] [address], [place] [address]Flhtrbbamge in LDL [Mass/Vol]132 mg/dLHigh<=129Access Hospital DaytonComment on above:Performed By: #### [id number] #### [facility] [address], [place] [address]Jcfvxdehwsr in VLDL [Mass/Vol]43 mg/dLHigh7-40[facility] DaytonComment on above:Performed By: #### [id number] #### [facility] [address], [place] [address]Ujyzrkrmutzz [Mass/Vol]213 mg/dLHigh<=149Access Hospital DaytonComment on above:Performed By: #### [id number] #### [facility] [address], [place] [address]Y6 & TSHon 94-74-8708COU Qn0.98 m[IU]/LNormal0.34-5.60[facility] Hospital DaytonComment on above:Performed By: #### [id number] #### [facility] [address], [place] [address]A8 [Mass/Vol]8.2 microgram/dLNormal4.6-9.1FSouthwest General Health CenterComment on above:Performed By: #### [id number] #### [facility] [address] [place] [address]Mjq B12on 31-57-6033Qgqjcxtxp (Vitamin B12) [Mass/Vol]208 pg/mL Extljd35-0585XgkwwdAccess Hospital DaytonComment on above:Performed By: #### [id number] #### [facility] [address] [place] [address] 929[address]qPTYxf 07-57-6775vPZI21 mL/min/1.73 g8Edskjx>=59Access Hospital DaytonComment on above:Performed By: #### [id number] #### [facility] [address] [place] [address]NYF w/ Auto Diffon 30-92-3705Jvjdvscgo/100 WBC (Bld)1.1 %Normal 0.0-2.0Access Hospital DaytonComment on above:Performed By: #### [id number] #### [facility] [address] [place] [address]97[address]Vpkeplyqj/Leukocytes Auto (Bld) [Pure # fraction]0.1 E9/LNormal 0.0-0.2FSouthwest General Health CenterComment on above:Performed By: #### [id number] #### [facility] [address] [place] [address]Cnofhkzxviq (Bld) [#/Vol]0.2 E9/LNormal0.0-0.5FSouthwest General Health CenterComment on above:Performed By: #### [id number] #### Access [facility] [address] [place] [address] 86458Cjqmozdreml/100 WBC (Bld)2.7 %Normal0.0-8.0[facility] DaytonComment on above:Performed By: #### [id number] #### [facility] [address] [place] [address] 55732Hizmbiburnr distribution width (RBC) [Ratio]15.0 %High10.9-14.2 [facility] DaytonComment on above:Performed By: #### [id number] #### [facility] [address] [place] [address] 67942Wfsnuyhcuy (Bld) [Volume fraction]45.5 %Pgsqtj61.0-46.0[facility] DaytonComment on above:Performed By: #### [id number] #### [facility] [address] [place] [address] 02020Ipzgwfcxte (Bld) [Mass/Vol]15.4 g/eEMmnwfv03.0-16.0[facility] DaytonComment on above:Performed By: #### [id number] #### [facility] [address] [place] [address] 73234Xxasexhzgaw (Bld) [#/Vol]2.5 E9/LNormal1.0-4.0[facility] DaytonComment on above:Performed By: #### [id number] #### [facility] [address] [place] [address] 23396Sidehvefymr/100 WBC (Bld)27.7 %Sbjtot64.0-50.0[facility] DaytonComment on above:Performed By: #### [id number] #### [facility] [address] [place] [address] 76885EYU (RBC) [Entitic mass]31.4 wmPsyqbb65.0-34.0[facility] DaytonComment on above:Performed By: #### [id number] #### [facility] [address] [place] [address] 78399ALYJ (RBC) [Mass/Vol]33.9 g/qIDnqcgh72.4-36.0[facility] DaytonComment on above:Performed By: #### [id number] #### [facility] [address] [place] [address] 51376ZAY (RBC) [Entitic vol]92.5 hBTsupnp38.0-100.0[facility] DaytonComment on above:Performed By: #### [id number] #### [facility] [address], [place] [address]Vaxesfrum (Bld) [#/Vol]0.7 E9/LNormal0.2-1.0[facility] DaytonComment on above:Performed By: #### [id number] #### [facility] [address] [place] [address] 13747Mjhtypzhiew (Bld) [#/Vol]5.4 E9/LNormal2.0-7.5FSouthwest General Health CenterComment on above:Performed By: #### [id number] #### [facility] [address] [place] [address] 24730Ujvhndqsfob/100 WBC (Bld)60.7 %Lxggro56.0-75.0[facility] DaytonComment on above:Performed By: #### [id number] #### [facility] [address] [place] [address] 91923Nezuwjlf680.0 E9/VPwlxlc724.0-500.0[facility] Comment on above:Performed By: #### [id number] #### [facility] [address] [place] [address] 14674Kvucgnrm mean volume (Bld) [Entitic vol]7.9 fLNormal6.4-10.8 [facility] DaytonComment on above:Performed By: #### [id number] #### [facility] [address] [place] [address] 52118UXZ (Bld) [#/Vol]4.9 E12/LNormal4.3-5.9[facility] DaytonComment on above:Performed By: #### [id number] #### [facility] [address] [place] [address] 35883ENS corrected for nucl RBC Auto (Bld) [#/Vol]8.9 E9/LNormal 4.0-11.0[facility] DaytonComment on above:Performed By: #### [id number] #### [facility] [address] [place] [address] 75334UNEtf 94-88-9075Mareigm [Mass/Vol]4.1 g/dLNormal3.3-5.0[facility] DaytonComment on above:Performed By: #### [id number] #### [facility] [address] [place] [address] 02888Wywsbxc/Globulin (S) [Mass conc ratio]1.9Zdjtiw7.1-2.2FSouthwest General Health CenterComment on above:Performed By: #### [id number] #### [facility] [address], [place] [address]CTO [Catalytic activity/Vol]134 Int._Unit/RFthq34-20RgoatqAccess Hospital DaytonComment on above:Performed By: #### [id number] #### [facility] [address] [place] [address] 92315YNM No additional P-5'-P [Catalytic activity/Vol]18 Int._Unit/L Normal6-46[facility] DaytonComment on above:Performed By: #### [id number] #### [facility] [address] [place] [address] 58977Gwuzu gap [Moles/Vol]13 mmol/LNormal6-16[facility] DaytonComment on above:Performed By: #### [id number] #### [facility] [address] [place] [address] 97262KEO [Catalytic activity/Vol]13 Int._Unit/LNormal5-43[facility] DaytonComment on above:Performed By: #### [id number] #### [facility] [address], [place] [address]Cwgodheev [Mass/Vol]0.4 mg/dLNormal0.0-1.1FSouthwest General Health CenterComment on above:Performed By: #### [id number] #### [facility] [address], [place] [address]Xkuiwek [Mass/Vol]9.3 mg/dLNormal8.9-11.1FSouthwest General Health CenterComment on above:Performed By: #### [id number] #### [facility] [address], [place] [address]Iyfidfqn [Moles/Vol]103 mmol/MNrsnxy534-078MsprlaAccess Hospital DaytonComment on above:Performed By: #### [id number] #### [facility] [address], [place] [address]MK2 [Moles/Vol]27 mmol/RZuncki20-58CzofrwAccess Hospital [facility] Comment on above:Performed By: #### [id number] #### [facility] [address], [place] [address]Svdlqdcamw [Mass/Vol]1.2 mg/dLNormal0.5-1.3FSouthwest General Health CenterComment on above:Performed By: #### [id number] #### [facility] [address], [place] [address]Zwbhhjyx (S) [Mass/Vol]2.9 g/dLNormal1.4-4.0[facility] DaytonComment on above:Performed By: #### [id number] #### [facility] [address], [place] [address]Oqcwftn [Mass/Vol]103 mg/bCZdhupv78-254JelqmjAccess Hospital DaytonComment on above:Performed By: #### [id number] #### [facility] [address], [place] [address]Qhaunozbd [Moles/Vol]4.9 mmol/LNormal3.5-5.3FSouthwest General Health CenterComment on above:Performed By: #### [id number] #### [facility] [address], [place] [address]Ubwamao [Mass/Vol]7.0 g/dLNormal6.0-7.8[facility] DaytonComment on above:Performed By: #### [id number] #### [facility] [address], [place] [address]Uufzex [Moles/Vol]138 mmol/OEturmg982-866JipvwuAccess Hospital DaytonComment on above:Performed By: #### [id number] #### [facility] [address], [place] [address]Cspa nitrogen [Mass/Vol]11 mg/dLNormal5-21[facility] DaytonComment on above:Performed By: #### [id number] #### [facility] [address], [place] [address]Bmbe nitrogen/Creatinine [Mass ratio]9 No JmklhRrr90-85UkfrwnAccess Hospital DaytonComment on above:Performed By: #### [id number] #### [facility] [address], [place] [address]Loxfm Panelon 28-04-0788Eewqmreowpc [Mass/Vol]177 mg/dLNormal 120-200[facility] DaytonComment on above:Performed By: #### [id number] #### [facility] [address], [place] [address]Latddyxqxla in HDL [Mass/Vol]43 mg/dLInvalid Interpretation CodeAccess Hospital DaytonComment on above:Result Comment: '>= 60 LOW RISK' '<= 40 HIGH RISK'Performed By: #### [id number] #### [facility] [address], [place] [address]Pwbhdrxcotr in LDL [Mass/Vol]125 mg/dLNormal<=129[facility] DaytonComment on above:Performed By: #### [id number] #### [facility] [address], [place] [address]Kmrpiwlvjue in VLDL [Mass/Vol]33 mg/dLNormal7-40[facility] DaytonComment on above:Performed By: #### [id number] #### [facility] [address], [place] [address]Voioebkrjgvg [Mass/Vol]165 mg/dLHigh<=149[facility] DaytonComment on above:Performed By: #### [id number] #### [facility] [address], [place] [address]J0 & TSHon 09-14-1617ARS Qn1.28 m[IU]/LNormal0.34-5.60[facility] DaytonComment on above:Performed By: #### [id number] #### [facility] [address], [place] [address]P5 [Mass/Vol]9.2 microgram/dLHigh4.6-9.1FSouthwest General Health CenterComment on above:Performed By: #### [id number] #### [facility] [address], [place] [address]Ijq B12on 87-36-7756Uswzykssf (Vitamin B12) [Mass/Vol]186 pg/mL Ibdgaf93-1860WswpzoAccess Hospital DaytonComment on above:Performed By: #### [id number] #### [facility] [address], [place] [address]kVDMlr 51-25-5195kDZN56 mL/min/1.73 m2Low>=59[facility] DaytonComment on above:Order Comment: Order added by Discern Expert. Performed By: #### [id number] #### [facility] [address], [place] [address]UZPRMM FOR SURGICAL PROCEDURESon 03-24-9188HOFFBP FOR SURGICAL PROCEDURESRadiology exam is complete. No Radiologist dictation. Please follow up with ordering provider. Final resultNoConejos County HospitalPhysician Orderon 02-23-2024 Physician [id number]#1.00TIFFNormalAccess Hospital DaytonCMPon 46-42-3915Fscoqeq [Mass/Vol]3.7 g/dLNormal3.3-5.0 [facility] DaytonComment on above:Performed By: #### [id number] #### [facility] [address], [place] [address]Rhxhdru/Globulin (S) [Mass conc ratio]1.1Osxcfp8.1-2.2FSouthwest General Health CenterComment on above:Performed By: #### [id number] #### [facility] [address], [place] [address]RBL [Catalytic activity/Vol]114 Int._Unit/THnsx86-11UspodmAccess Hospital DaytonComment on above:Performed By: #### [id number] #### [facility] [address], [place] [address]YGZ No additional P-5'-P [Catalytic activity/Vol]18 Int._Unit/L Normal6-46[facility] DaytonComment on above:Performed By: #### [id number] #### [facility] [address], [place] [address]Fhhho gap [Moles/Vol]9 mmol/LNormal6-16[facility] DaytonComment on above:Performed By: #### [id number] #### [facility] [address], [place] [address]JTX [Catalytic activity/Vol]13 Int._Unit/LNormal5-43[facility] DaytonComment on above:Performed By: #### [id number] #### [facility] [address], [place] [address]Nxiefyjnw [Mass/Vol]0.3 mg/dLNormal0.0-1.1FSouthwest General Health CenterComment on above:Performed By: #### [id number] #### [facility] [address], [place] [address]Ywvrdgw [Mass/Vol]8.5 mg/dLLow8.9-11.1FSouthwest General Health CenterComment on above:Performed By: #### [id number] #### [facility] [address], [place] [address]Hhpinklr [Moles/Vol]106 mmol/SEihvxi850-998UnleepAccess Hospital DaytonComment on above:Performed By: #### [id number] #### [facility] [address], [place] [address]DO4 [Moles/Vol]27 mmol/CMkogqm85-58RwbevxAccess [facility] Comment on above:Performed By: #### [id number] #### [facility] [address], [place] [address]Jkejinjuvh [Mass/Vol]0.9 mg/dLNormal0.5-1.3FSouthwest General Health CenterComment on above:Performed By: #### [id number] #### [facility] [address], [place] [address]Iztrflth (S) [Mass/Vol]2.3 g/dLNormal1.4-4.0[facility] DaytonComment on above:Performed By: #### [id number] #### [facility] [address], [place] [address]Cvdzayj [Mass/Vol]107 mg/uDJgqkhp70-246JewjxiAccess Hospital DaytonComment on above:Performed By: #### [id number] #### [facility] [address] [place] [address] 25[address]Pvblvtgcd [Moles/Vol]4.3 mmol/LNormal3.5-5.3FSouthwest General Health CenterComment on above:Performed By: #### [id number] #### [facility] [address], [place] [address]Nerjtae [Mass/Vol]6.0 g/dLNormal6.0-7.8[facility] DaytonComment on above:Performed By: #### [id number] #### [facility] [address], [place] [address]Fyowdb [Moles/Vol]138 mmol/JGyoblz099-920XtqvnuAccess Hospital DaytonComment on above:Performed By: #### [id number] #### [facility] [address], [place] [address]Araj nitrogen [Mass/Vol]11 mg/dLNormal5-21[facility]Comment on above:Performed By: #### [id number] #### [facility] [address] [place] [address] 669[address]Eodg nitrogen/Creatinine [Mass ratio]12 No IcbgrJlhmgs27-84 [facility] DaytonComment on above:Performed By: #### [id number] #### [facility] [address], [place] [address]Pdcpyekez Orderon 51-36-1866Yrwmskawf Order [id number]#1.00TIFFNormalAccess Hospital DaytoneGFRon 84-90-0769qKFU85 mL/min/1.73 d5Itocrx>=59[facility] DaytonComment on above:Order Comment: Order added by Discern Expert.Performed By: #### [id number] #### [facility] [address], [place] [address]YA GUIDED FOR SPINE INJECTon 05-70-8844TW GUIDED FOR SPINE INJECTFinal resultNoConejos County HospitalANA w/Reflex if POSon 17-05-4060Kkzwpxu Ab Ql (S)NegativeInvalid Interpretation CodeNegativeAccess Hospital DaytonComment on above:Result Comment: Performed at: [facility] [address] [place], [place] [id number] PhD Cameron Acostaformed By: #### [id number], [id number], 43912275, 5255304 #### [facility] [address], [place] [address]LA Quanton 86-37-7280Kqgdyuwbpo factor Qn[IU]/mLInvalid Interpretation Code<14.0[facility] DaytonComment on above:Result Comment: Performed at: [facility] [address] [place], [place] [id number] PhD Cameron Acostaformed By: #### [id number], 98464424, 94699057, 9486384 #### [facility] [address], [place] [address]DBUxk 50-28-8018Uvjdsgc [Mass/Vol]4.3 g/dLNormal3.3-5.0[facility] DaytonComment on above:Performed By: #### [id number], 52824573, 25385552, 8321822 #### [facility] [address], [place] [address]Mgreyyr/Globulin (S) [Mass conc ratio]1.0Zyfurs6.1-2.2FSouthwest General Health CenterComment on above:Performed By: #### [id number], 69120600, 05219350, 4765659 #### [facility] [address], [place] [address]EMI [Catalytic activity/Vol]91 Int._Unit/KEqbvkh30-63WewrnaAccess Hospital DaytonComment on above:Performed By: #### 55067077, 91883482, 08444882, 0253517 #### [facility] [address], [place] [address]NAY No additional P-5'-P [Catalytic activity/Vol]17 Int._Unit/L Normal6-46[facility] DaytonComment on above:Performed By: #### [id number], 45713888, 35380545, 9792664 #### [facility] [address], [place] [address]Labkb gap [Moles/Vol]12 mmol/LNormal6-16[facility]Comment on above:Performed By: #### 83858432, 86830432, 57939622, 3548987 #### [facility] [address] [place] [address]UOD [Catalytic activity/Vol]13 Int._Unit/LNormal5-43[facility] DaytonComment on above:Performed By: #### 11646993, 55766084, 28305043, 7934294 #### [facility] [address], [place] [address]Drmdhoqvp [Mass/Vol]0.4 mg/dLNormal0.0-1.1FSouthwest General Health CenterComment on above:Performed By: #### 67520998, 17295544, 73405140, 6014217 #### [facility] [address], [place] [address]Hkvcdze [Mass/Vol]9.8 mg/dLNormal8.9-11.1FSouthwest General Health CenterComment on above:Performed By: #### 06858863, 33368981, 19111393, 3970726 #### [facility] [address], [place] [address]Syaaakhb [Moles/Vol]107 mmol/UHeqkod739-290ClxbimAccess Hospital DaytonComment on above:Performed By: #### 40375806, 97175577, 44996759, 2978471 #### [facility] [address], [place] [address]GP6 [Moles/Vol]26 mmol/PGwynff52-71FsgqpsAccess Hospital [facility] Comment on above:Performed By: #### 41106451, 81965956, 32420320, 6277274 #### [facility] [address], [place] [address]Vwosqrskqt [Mass/Vol]1.1 mg/dLNormal0.5-1.3FSouthwest General Health CenterComment on above:Performed By: #### 30845086, 77927079, 71420385, 6852444 #### [facility] [address], [place] [address]Zacuyvxy (S) [Mass/Vol]2.3 g/dLNormal1.4-4.0[facility] DaytonComment on above:Performed By: #### 92327568, 86960992, 47883101, 9514445 #### [facility] [address], [place] [address]Tffhgak [Mass/Vol]64 mg/dJGksngb67-030SajyhaAccess Hospital DaytonComment on above:Performed By: #### 14021694, 26716795, 06881350, 4877845 #### [facility] [address], [place] [address]Cbqicvtcq [Moles/Vol]4.5 mmol/LNormal3.5-5.3FSouthwest General Health CenterComment on above:Performed By: #### 29081371, 37733818, 84272947, 1802518 #### [facility] [address], [place] [address]Rzqgplk [Mass/Vol]6.6 g/dLNormal6.0-7.8[facility] DaytonComment on above:Performed By: #### 92618485, 13579755, 77319304, 0382023 #### [facility] [address], [place] [address]Gmhjud [Moles/Vol]140 mmol/CPspvjw507-335HrviwdAccess Hospital DaytonComment on above:Performed By: #### 58334718, 28098344, 94531032, 2074875 #### [facility] [address], [place] [address]Fxfj nitrogen [Mass/Vol]11 mg/dLNormal5-21[facility] DaytonComment on above:Performed By: #### 18879838, 26387618, 55602621, 1368282 #### [facility] [address] [place] [address]28[address]Tjvx nitrogen/Creatinine [Mass ratio]10 No TcoqwElalnv65-27 [facility] DaytonComment on above:Performed By: #### 50525720, 15513833, 01914422, 5526260 #### [facility] [address] [place] [address] 69846iPSKow 92-16-7537bBDJ23 mL/min/1.73 f9Jxhngu>=59[facility] DaytonComment on above:Order Comment: Order added by Discern Expert. Performed By: #### 41866825, 58577553, 00172292, 7754959 #### [facility] [address], [place] [address]ZGOwu 71-23-5056Zlvhmng [Mass/Vol]3.7 g/dLNormal3.3-5.0[facility] DaytonComment on above:Performed By: #### 73447533, 3615840 #### [facility] [address], [place] [address]Exsjtuo/Globulin (S) [Mass conc ratio]1.5Vsspxh5.1-2.2FSouthwest General Health CenterComment on above:Performed By: #### 19510496, 4587558 #### [facility] [address] [place] [address]FOP [Catalytic activity/Vol]76 Int._Unit/HPzsypn24-89RxnohaAccess Hospital DaytonComment on above:Performed By: #### 79392086, 7927339 #### [facility] [address] [place] [address]NIJ No additional P-5'-P [Catalytic activity/Vol]14 Int._Unit/L Normal6-46[facility] DaytonComment on above:Performed By: #### 28528551, 0546452 #### [facility] [address] [place] [address]Mnpmg gap [Moles/Vol]10 mmol/LNormal6-16[facility] DaytonComment on above:Performed By: #### 84964827, 9655472 #### [facility] [address] [place] [address] 59[address]ODK [Catalytic activity/Vol]10 Int._Unit/LNormal5-43[facility] DaytonComment on above:Performed By: #### [id number], 0968816 #### [facility] [address] [place] [address]35[address]Bxcfyzlsd [Mass/Vol]0.4 mg/dLNormal0.0-1.1FSouthwest General Health CenterComment on above:Performed By: #### 86566645, 1643266 #### [facility] [address] [place] [address]Voqpoib [Mass/Vol]8.6 mg/dLLow8.9-11.1FSouthwest General Health CenterComment on above:Performed By: #### 93700031, 8398519 #### [facility] [address], [place] [address]Pzmtwpmo [Moles/Vol]109 mmol/RXfzzgc221-057JvmdplAccess Hospital DaytonComment on above:Performed By: #### 28911474, 1294109 #### [facility] [address], [place] [address]QJ6 [Moles/Vol]27 mmol/IYqyrrh52-78GxhnhzAccess Hospital [facility] Comment on above:Performed By: #### 26353172, 1042170 #### [facility] [address], [place] [address]Dhcyfbkenb [Mass/Vol]1.0 mg/dLNormal0.5-1.3FSouthwest General Health CenterComment on above:Performed By: #### 50058512, 4750323 #### [facility] [address] [place] [address]Bxejndpy (S) [Mass/Vol]2.0 g/dLNormal1.4-4.0[facility] DaytonComment on above:Performed By: #### 82488473, 3618183 #### [facility] [address] [place] [address]Cgkunzc [Mass/Vol]78 mg/kOTxsaaf74-056WlptncAccess Hospital DaytonComment on above:Performed By: #### 03681295, 0474395 #### [facility] [address], [place] [address]Gzubbwdpj [Moles/Vol]3.9 mmol/LNormal3.5-5.3FSouthwest General Health CenterComment on above:Performed By: #### 11743604, 0763243 #### [facility] [address], [place] [address]Hwqjfsx [Mass/Vol]5.7 g/dLLow6.0-7.8[facility] Comment on above:Performed By: #### 31275087, 2715853 #### [facility] [address], [place] [address]Mrmpdv [Moles/Vol]142 mmol/PQovdof845-456DhawoaAccess Hospital DaytonComment on above:Performed By: #### 14856692, 5295160 #### [facility] [address] [place] [address]12[address]Rrhg nitrogen [Mass/Vol]9 mg/dLNormal5-21[facility] DaytonComment on above:Performed By: #### 57263702, 9058190 #### [facility] [address] [place] [address]Whsl nitrogen/Creatinine [Mass ratio]9 No InnipAmz49-99PfhibiAccess Hospital DaytonComment on above:Performed By: #### 38797225, 5109600 #### [facility] [address] [place] [address]Bwhehybns Orderon 81-34-4638Aqbqnhyyb Order [id number] Hospital DaytoneGFRon 64-27-2431yEDW15 mL/min/1.73 j9Kfypst>=59[facility] DaytonComment on above:Order Comment: Order added by Discern Expert.Performed By: #### 28158070, 5794011 #### [facility] [address] [place] [address] 97[address]WXS w/ Auto Diffon 06-55-1546Ophguszy Absolute0.1 E9/LNormal 0.0-0.2FSouthwest General Health CenterComment on above:Performed By: #### 767080641, 3279625, 16325258, 5861787 #### [facility] [address] [place] [address] 06[address]Cisrvffxz/100 WBC (Bld)1.1 %Normal0.0-2.0[facility] DaytonComment on above:Performed By: #### 097594039, 7004339, 85022912, 2490736 #### [facility] [address] [place] [address]Rzo Absolute0.2 E9/LNormal0.0-0.5[facility] Comment on above:Performed By: #### 593742802, 0580660, 07928397, 3112317 #### [facility] [address] [place] [address] 28[address]Attqmeznbfw/100 WBC (Bld)1.9 %Normal0.0-8.0[facility] DaytonComment on above:Performed By: #### 785363338, 0394754, 23586337, 8004469 #### [facility] [address] [place] [address] 567[address]Zmgrpfiyqvz distribution width (RBC) [Ratio]16.6 %High10.9-14.2 [facility] DaytonComment on above:Performed By: #### 653345933, 2043837, 01329984, 2922697 #### [facility] [address] [place] [address]Mcpsfggkhv (Bld) [Volume fraction]39.0 %Cnyszl21.0-46.0[facility] DaytonComment on above:Performed By: #### 556535635, 6855014, 61201905, 3858708 #### [facility] [address] [place] [address] 501[address]Lwozhvfmcx (Bld) [Mass/Vol]12.2 g/iDDndyqf96.0-16.0[facility] DaytonComment on above:Performed By: #### 192125448, 1074361, 19927180, 7556883 #### [facility] [address] [place] [address]Kfqfu Absolute1.9 E9/LNormal1.0-4.0[facility] Comment on above:Performed By: #### 768816952, 3514726, 22275056, 6189031 #### [facility] [address] [place] [address]Jicyyuhpjee/100 WBC (Bld)17.8 %Tuqmqu66.0-50.0[facility] DaytonComment on above:Performed By: #### 501411275, 1768988, 20440743, 2031229 #### [facility] [address] [place] [address] 27[address]UUV (RBC) [Entitic mass]30.4 xuNzfewv44.0-34.0[facility] DaytonComment on above:Performed By: #### 486023423, 1044534, 73584648, 2011018 #### [facility] [address] [place], [place] [address]HC (RBC) [Mass/Vol]31.4 g/pUOlpbvr15.4-36.0[facility] DaytonComment on above:Performed By: #### 895637183, 1022757, 21604905, 9164095 #### [facility] [address] [place], [place] [address]MCV (RBC) [Entitic vol]96.7 kNOupnid56.0-100.0[facility] DaytonComment on above:Performed By: #### 822814927, 5747069, 38943851, 3161539 #### [facility] [address] [place] [address] 22[address]Bmfn Absolute0.9 E9/LNormal0.2-1.0[facility] Comment on above:Performed By: #### 854765213, 9069389, 41219832, 5506275 #### [facility] [address] [place] [address]Qwlwxlhej/100 WBC (Bld)8.4 %Normal4.0-14.0[facility] DaytonComment on above:Performed By: #### 875426408, 5858577, 15325764, 7522513 #### [facility] [address] [place] [address]Ukhnhi Absolute7.5 E9/LNormal2.0-7.5FSouthwest General Health Center Comment on above:Performed By: #### 737323146, 2853267, 70677828, 9274630 #### [facility] [address], [place] [address]Dlgiik Auto70.8 %Vjrbyn56.0-75.0[facility] Comment on above:Performed By: #### 059147822, 8663096, 38814379, 5521529 #### [facility] [address] [place] [address] 38672Qczkljde559.0 E9/FPeumli974.0-500.0[facility] Comment on above:Performed By: #### 280369900, 6862089, 58895275, 6538512 #### [facility] [address] [place] [address] 83884Jteuurew mean volume (Bld) [Entitic vol]7.4 fLNormal6.4-10.8 [facility] DaytonComment on above:Performed By: #### 021854874, 1390358, 50102510, 9150749 #### [facility] [address] [place] [address] 94669CZG8.0 E12/LLow4.3-5.9[facility] DaytonComment on above:Performed By: #### 376390489, 1948152, 07120200, 8148197 #### [facility] [address] [place] [address] 63804HCU63.6 E9/LNormal4.0-11.0[facility] DaytonComment on above:Performed By: #### 782330803, 7268906, 66338559, 9588488 #### [facility] [address] [place] [address] 35700MDJbz 87-89-2125Fhgmync [Mass/Vol]3.7 g/dLNormal3.3-5.0[facility] DaytonComment on above:Performed By: #### 517666508, 3530323, 10211491, 3309145 #### [facility] [address] [place] [address] 949[address]Rlebedt/Globulin [Mass ratio]1.5 {ratio}Normal1.1-2.2FSouthwest General Health CenterComment on above:Performed By: #### 989002485, 3493399, 35809100, 7509517 #### [facility] [address], [place] [address]Vgp Phos66 Int._Unit/FJsabzy94-81KaeqjmAccess Hospital [facility] Comment on above:Performed By: #### 267854871, 1177156, 73494396, 5836159 #### [facility] [address], [place] [address]LWM64 Int._Unit/LNormal6-46[facility] DaytonComment on above:Performed By: #### 204683248, 2195947, 23942815, 9050159 #### [facility] [address], [place] [address]Ajtbj gap [Moles/Vol]12 mmol/LNormal6-16[facility] DaytonComment on above:Performed By: #### 111873246, 1666723, 23608433, 8565600 #### [facility] [address], [place] [address]HBY17 Int._Unit/LNormal5-43[facility] DaytonComment on above:Performed By: #### 674071501, 3798094, 30364481, 9923948 #### [facility] [address], [place] [address]Wfnr Total0.4 mg/dLNormal0.0-1.1FSouthwest General [facility] Center Comment on above:Performed By: #### 035827143, 3016395, 40226709, 5626704 #### [facility] [address], [place] [address]RTR/Creat Ratio9 No RbyqyVit47-95MaaofpAccess Hospital [facility] Comment on above:Performed By: #### 544904739, 7568703, 72650413, 6956815 #### [facility] [address], [place] [address]Yshjvbg [Mass/Vol]8.9 mg/dLNormal8.9-11.1FSouthwest General Health CenterComment on above:Performed By: #### 020916426, 5355196, 05777046, 0372608 #### [facility] [address], [place] [address]Neyekakr [Moles/Vol]108 mmol/OBdxdgk067-657GrxrqmAccess Hospital DaytonComment on above:Performed By: #### 668447386, 2536119, 36919275, 5905598 #### [facility] [address], [place] [address]GK6 [Moles/Vol]26 mmol/AYfmtfe88-71LkjsnxAccess Hospital [facility] Comment on above:Performed By: #### 010943468, 1782071, 77075507, 5662766 #### [facility] [address], [place] [address]Lzeqnsecmp [Mass/Vol]1.2 mg/dLNormal0.5-1.3FSouthwest General Health CenterComment on above:Performed By: #### 465217873, 0620977, 83194055, 7690889 #### [facility] [address], [place] [address]Vvnnvkji (S) [Mass/Vol]2.4 g/dLNormal1.4-4.0[facility] DaytonComment on above:Performed By: #### 723496242, 3391966, 42345344, 4460725 #### [facility] [address], [place] [address]Nkvtccp [Mass/Vol]87 mg/dKBrnxzd67-526VhnsomAccess Hospital DaytonComment on above:Performed By: #### 775092496, 2791333, 15864606, 6108045 #### [facility] [address], [place] [address]Vfbgypvsv [Moles/Vol]3.8 mmol/LNormal3.5-5.3FSouthwest General Health CenterComment on above:Performed By: #### 243338474, 7390391, 27200009, 0481861 #### [facility] [address], [place] [address]Kcaizya [Mass/Vol]6.1 g/dLNormal6.0-7.8[facility] DaytonComment on above:Performed By: #### 597927417, 9447568, 89500577, 8498631 #### [facility] [address], [place] [address]Szgpyo [Moles/Vol]142 mmol/OShyuwm440-612EhdtvbAccess Hospital DaytonComment on above:Performed By: #### 457667925, 6310200, 79341972, 6712112 #### [facility] [address], [place] [address]Vbxl nitrogen [Mass/Vol]11 mg/dLNormal5-21[facility] DaytonComment on above:Performed By: #### 774494559, 6961835, 72198260, 8443301 #### [facility] [address], [place] [address]Ysfbptibj Orderon 93-73-7450Ntvvxrvle Order [id number]#1.00TIFFNormalAccess Hospital DaytoneGFRon 32-38-6204yUCV96 mL/min/1.73 m2Low>=59[facility] Comment on above:Order Comment: Order added by Discern Expert.Performed By: #### 644373723, 3328133, 23661243, 9542921 #### [facility] [address], [place] [address]OTJ w/ Auto Diffon 27-48-4266Jzcdcwmo Absolute0.1 E9/LNormal 0.0-0.2[facility] CenterComment on above:Performed By: #### 662809351, 1497747, 36351898, 4771751 #### [facility] [address], [place] [address]Euhpcjpfq/100 WBC (Bld)0.3 %Normal0.0-2.0[facility] DaytonComment on above:Performed By: #### 321989294, 2075111, 91773281, 0992558 #### [facility] [address], [place] [address]Box Absolute0.1 E9/LNormal0.0-0.5FSouthwest General [facility] Center Comment on above:Performed By: #### 036516199, 9691581, 17078205, 9677145 #### [facility] [address] [place] [address]Mwszetdlequ/100 WBC (Bld)0.3 %Normal0.0-8.0[facility] DaytonComment on above:Performed By: #### 048080717, 9675295, 13042399, 7543252 #### [facility] [address] [place] [address]Nxbzqrtfvzz distribution width (RBC) [Ratio]15.1 %High10.9-14.2 [facility] DaytonComment on above:Performed By: #### 240836437, 7366744, 00619950, 7258577 #### [facility] [address] [place] [address] 311[address]Nffgqepunr (Bld) [Volume fraction]37.0 %Gjrszf96.0-46.0[facility] DaytonComment on above:Performed By: #### 436955881, 5904514, 03852781, 3266399 #### [facility] [address] [place] [address]82[address]Zmytnxbvkj (Bld) [Mass/Vol]11.8 g/dLLow12.0-16.0[facility] DaytonComment on above:Performed By: #### 548794177, 0075461, 94670638, 2685452 #### [facility] [address] [place] [address]Ouxgi Absolute4.6 E9/LHigh1.0-4.0[facility] Comment on above:Performed By: #### 965479033, 9872863, 21901710, 6010362 #### [facility] [address] [place] [address]Oiunfijenjs/100 WBC (Bld)26.1 %Mwnnfg46.0-50.0[facility] DaytonComment on above:Performed By: #### 535142507, 1142352, 22173474, 7500415 #### [facility] [address] [place] [address] 14942AOM (RBC) [Entitic mass]30.5 xxVvwkeh99.0-34.0[facility] DaytonComment on above:Performed By: #### 446275705, 3923750, 05257996, 5064537 #### [facility] [address] [place] [address]OEKQ (RBC) [Mass/Vol]31.9 g/yGZgdvzx58.4-36.0[facility] DaytonComment on above:Performed By: #### 614640853, 7707268, 82969916, 0553814 #### [facility] [address] [place] [address]XYN (RBC) [Entitic vol]95.7 qQYtdnix34.0-100.0[facility] DaytonComment on above:Performed By: #### 438828382, 3323731, 88023172, 2164489 #### [facility] [address] [place] [address]Dfdl Absolute1.6 E9/LHigh0.2-1.0[facility] Comment on above:Performed By: #### 744627615, 9273210, 01041375, 1971407 #### [facility] [address] [place] [address] 92[address]Wjzzlmzuz/100 WBC (Bld)9.2 %Normal4.0-14.0[facility] DaytonComment on above:Performed By: #### 636852423, 3774811, 75011964, 7957742 #### [facility] [address], [place] [address]Yhmssr Ccsonddj07.4 E9/LHigh2.0-7.5FSouthwest [facility] Center Comment on above:Performed By: #### 803388824, 0745259, 69731535, 5227720 #### [facility] [address], [place] [address]Khrkhz Auto64.1 %Bxrjhd72.0-75.0[facility] Comment on above:Performed By: #### 290254831, 0697494, 34200661, 0622158 #### [facility] [address] [place] [address]Akywbhyt228.0 E9/CNubgom575.0-500.0[facility] Comment on above:Performed By: #### 221871165, 0462187, 95131548, 7560851 #### [facility] [address] [place] [address]Mcmizrsv mean volume (Bld) [Entitic vol]7.4 fLNormal6.4-10.8 [facility] DaytonComment on above:Performed By: #### 788957438, 9872500, 03985884, 6091896 #### [facility] [address] [place] [address]NPW6.9 E12/LLow4.3-5.9[facility] DaytonComment on above:Performed By: #### 815968487, 9355264, 51810382, 9433229 #### [facility] [address] [place] [address] 66[address]CZO86.8 E9/LHigh4.0-11.0[facility] DaytonComment on above:Result Comment: Slide reviewed by Renukaformed By: #### 781921867, 8983330, 10377675, 1047221 #### [facility] [address] [place] [address] 79[address]MPYip 34-62-9658Ooalote [Mass/Vol]3.5 g/dLNormal3.3-5.0[facility] DaytonComment on above:Performed By: #### 661804140, 4145163, 87933031, 1081766 #### [facility] [address], [place] [address]Xaduwds/Globulin [Mass ratio]1.6 {ratio}Normal1.1-2.2FSouthwest General Health CenterComment on above:Performed By: #### 677563537, 5562499, 32576799, 2738898 #### [facility] [address], [place] [address]Osz Phos54 Int._Unit/MMvnrfp88-04SyggagAccess Hospital Dayton Comment on above:Performed By: #### 714439240, 5163792, 27914675, 4322622 #### [facility] [address], [place] [address]ROR93 Int._Unit/LNormal6-46[facility] DaytonComment on above:Performed By: #### 213063829, 2199634, 82400255, 4879842 #### [facility] [address] [place] [address] 20[address]Ygzkk gap [Moles/Vol]10 mmol/LNormal6-16[facility] DaytonComment on above:Performed By: #### 101116033, 2910327, 48443278, 7901006 #### [facility] [address] [place] [address] 49[address]FMZ63 Int._Unit/LNormal5-43[facility] DaytonComment on above:Performed By: #### 610053343, 1887067, 09709050, 5638742 #### [facility] [address] [place] [address] 93[address]Lodf Total0.3 mg/dLNormal0.0-1.1FSouth[facility] Center Comment on above:Performed By: #### 416947810, 8899674, 05283316, 6671395 #### [facility] [address], [place] [address]COZ/Creat Ratio19 No UghffGvhtvt80-20GlchgkAccess Hospital DaytonComment on above:Performed By: #### 908783686, 8632154, 33199455, 0463247 #### [facility] [address], [place] [address]Dxuwisc [Mass/Vol]8.7 mg/dLLow8.9-11.1FSouthwest General Health CenterComment on above:Performed By: #### 557877538, 1980495, 53136695, 7027092 #### [facility] [address], [place] [address]Odkznhcb [Moles/Vol]108 mmol/XBvxkwb082-583BlpdwsAccess Hospital DaytonComment on above:Performed By: #### 407634339, 0526209, 02932378, 6914651 #### [facility] [address], [place] [address]SE6 [Moles/Vol]28 mmol/AJfkekn27-43GhqcyxAccess Hospital [facility] Comment on above:Performed By: #### 414857886, 6615181, 12634312, 0613638 #### [facility] [address], [place] [address]Ivccamuqrr [Mass/Vol]1.3 mg/dLNormal0.5-1.3FSouthwest General Health CenterComment on above:Performed By: #### 151991087, 6566727, 82001006, 6119367 #### [facility] [address], [place] [address]Wruquxeo (S) [Mass/Vol]2.2 g/dLNormal1.4-4.0[facility] DaytonComment on above:Performed By: #### 991344173, 1937460, 37568254, 4360533 #### [facility] [address], [place] [address]Fumfjif [Mass/Vol]77 mg/xSAlrnfr56-073BdkhzqAccess Hospital DaytonComment on above:Performed By: #### 487781655, 8969246, 74780028, 5635969 #### [facility] [address], [place] [address]Kshcsxfbz [Moles/Vol]4.2 mmol/LNormal3.5-5.3FSouthwest General Health CenterComment on above:Performed By: #### 102430329, 1422530, 09625923, 8162386 #### [facility] [address], [place] [address]Xuhiews [Mass/Vol]5.7 g/dLLow6.0-7.8[facility] Comment on above:Performed By: #### 892995792, 3490066, 63742017, 5109235 #### [facility] [address] [place] [address]Ruwepw [Moles/Vol]142 mmol/ENvahib945-816EkstcxAccess Hospital DaytonComment on above:Performed By: #### 192426866, 6765591, 70369181, 4396984 #### [facility] [address] [place] [address] 205[address]Lcsj nitrogen [Mass/Vol]25 mg/dLHigh5-21[facility] DaytonComment on above:Performed By: #### 223124418, 8493584, 44834687, 2041007 #### [facility] [address] [place] [address] 520[address]ZxqU2yqc 86-03-7208SbC7a (Bld) [Mass fraction]6.2 %High<=5.9 [facility] DaytonComment on above:Performed By: #### 196764441, 7008348, 86722738, 2545082 #### [facility] [address] [place] [address]Ebugstcpm Orderon 43-25-2100Fiianzoqx Order [id number]#1.00TIFFNormalAccess Hospital DaytoneGFRon 83-43-5135xLKH04 mL/min/1.73 m2Low>=59[facility] Comment on above:Order Comment: Order added by Discern Expert.Performed By: #### 235803377, 9334039, 89709490, 7442013 #### [facility] [address], [place] [address]DZB w/ Auto Diffon 84-51-0455Wdnaojxj Absolute0.1 E9/LNormal 0.0-0.2FSouthwest General Health CenterComment on above:Performed By: #### 930617151, 4265996, 92583776, 3662316 #### [facility] [address], [place] [address]Tcqbvbupd/100 WBC (Bld)0.3 %Normal0.0-2.0[facility] DaytonComment on above:Performed By: #### 392113902, 4220151, 02226005, 7066192 #### [facility] [address], [place] [address]Ufu Absolute0.2 E9/LNormal0.0-0.5FS[facility] Comment on above:Performed By: #### 011238294, 4745626, 09694883, 8091742 #### [facility] [address] [place] [address]Lggiezxilbb/100 WBC (Bld)1.1 %Normal0.0-8.0[facility] DaytonComment on above:Performed By: #### 098544538, 3569627, 22028430, 8345090 #### [facility] [address], [place] [address]Ivqklllwtcw distribution width (RBC) [Ratio]14.6 %High10.9-14.2 [facility] DaytonComment on above:Performed By: #### 028582925, 2055795, 45885527, 0621709 #### [facility] [address], [place] [address]Skysjkfhii (Bld) [Volume fraction]40.0 %Ytgjzm65.0-46.0[facility] DaytonComment on above:Performed By: #### 835966736, 3587327, 04204281, 2199707 #### [facility] [address], [place] [address]Khgaphpivd (Bld) [Mass/Vol]12.8 g/vYIkyhhg47.0-16.0[facility] DaytonComment on above:Performed By: #### 432016327, 0445366, 60682909, 2582510 #### [facility] [address] [place] [address]75[address]Taxkm Absolute2.9 E9/LNormal1.0-4.0[facility] Comment on above:Performed By: #### 467526001, 2138187, 72918698, 1059815 #### [facility] [address] [place] [address] 187[address]Avcrhwjbbgx/100 WBC (Bld)18.7 %Pxiuzi53.0-50.0[facility] DaytonComment on above:Performed By: #### 739224520, 4317865, 06322657, 0133253 #### [facility] [address] [place] [address] 17227PNK (RBC) [Entitic mass]30.8 zxRnbksc02.0-34.0[facility] DaytonComment on above:Performed By: #### 757223988, 4495240, 75753461, 6640698 #### [facility] [address] [place] [address] 655[address]XUWP (RBC) [Mass/Vol]32.4 g/sRNnpuhv54.4-36.0[facility] DaytonComment on above:Performed By: #### 020747242, 6484845, 85673182, 8899801 #### [facility] [address] [place] [address] 239[address]TEM (RBC) [Entitic vol]95.0 yOAnatqp51.0-100.0[facility] DaytonComment on above:Performed By: #### 896782291, 4815390, 79377631, 5474873 #### [facility] [address] [place] [address]Qhmz Absolute1.1 E9/LHigh0.2-1.0[facility] Comment on above:Performed By: #### 405556107, 2691265, 91703339, 2056387 #### [facility] [address] [place] [address] 495[address]Erfmuvwvg/100 WBC (Bld)6.7 %Normal4.0-14.0[facility] DaytonComment on above:Performed By: #### 438677660, 9560135, 39965155, 4792112 #### [facility] [address] [place] [address]Acpkku Rjbmgtqm98.5 E9/LHigh2.0-7.5FS[facility] Comment on above:Performed By: #### 348228161, 5631046, 97285252, 5230324 #### [facility] [address] [place] [address]Daquzn Auto73.2 %Alynga61.0-75.0[facility] Comment on above:Performed By: #### 660638314, 8790405, 16171925, 6197361 #### [facility] [address] [place] [address] 846[address]Nppmvpsb219.0 E9/FSusu943.0-500.0[facility] Comment on above:Performed By: #### 901429979, 1591206, 51291371, 0462135 #### [facility] [address] [place] [address] 519[address]Qgwyrteu mean volume (Bld) [Entitic vol]7.7 fLNormal6.4-10.8 [facility] DaytonComment on above:Performed By: #### 062552853, 4099612, 53222899, 5609016 #### [facility] [address], [place] [address]PJB6.2 E12/LLow4.3-5.9[facility] DaytonComment on above:Performed By: #### 608152494, 3698884, 52384922, 3513488 #### [facility] [address] [place] [address] 433[address]NXR11.7 E9/LHigh4.0-11.0[facility] DaytonComment on above:Performed By: #### 323775241, 6294723, 68706018, 0250921 #### [facility] [address], [place] [address]ZLRrz 91-53-4286Hujpiru [Mass/Vol]3.9 g/dLNormal3.3-5.0[facility] DaytonComment on above:Performed By: #### 289703684, 3081421, 90843462, 8864018 #### [facility] [address], [place] [address]Jpnqgig/Globulin [Mass ratio]1.5 {ratio}Normal1.1-2.2FSouthwest General Health CenterComment on above:Performed By: #### 420959240, 9298422, 02890360, 3236685 #### [facility] [address] [place] [address]Mtd Phos82 Int._Unit/DNplclh17-78AqursxAccess Hospital [facility] Comment on above:Performed By: #### 914264347, 2722126, 29187021, 1309302 #### [facility] [address] [place] [address] 30503ZVQ55 Int._Unit/LNormal6-46[facility] DaytonComment on above:Performed By: #### 640241752, 4246708, 66045539, 4657500 #### [facility] [address] [place] [address] 479[address]Zucev gap [Moles/Vol]17 mmol/LHigh6-16[facility] DaytonComment on above:Performed By: #### 201449614, 1776156, 91542290, 7813800 #### [facility] [address], [place] [address]FYG5 Int._Unit/LNormal5-43[facility] DaytonComment on above:Performed By: #### 003512279, 1784530, 57540999, 4670270 #### [facility] [address], [place] [address]Nbqs Total0.3 mg/dLNormal0.0-1.1FS[facility] Comment on above:Performed By: #### 405158203, 8183661, 64597360, 8485715 #### [facility] [address], [place] [address]DFE/Creat Ratio15 No PduvbWdfrld81-91NgeacgAccess Hospital DaytonComment on above:Performed By: #### 572558268, 9484323, 79850813, 3354802 #### [facility] [address], [place] [address]Zouayxs [Mass/Vol]9.1 mg/dLNormal8.9-11.1FSouthwest General Health CenterComment on above:Performed By: #### 536064281, 6463580, 73659280, 7757197 #### [facility] [address], [place] [address]Emnrihoo [Moles/Vol]102 mmol/IJssqrv650-730IhklbtAccess Hospital DaytonComment on above:Performed By: #### 601929532, 3074849, 25940486, 5149603 #### [facility] [address], [place] [address]DH7 [Moles/Vol]21 mmol/QVmgnlf05-29JejvjzAccess Hospital Dayton Comment on above:Performed By: #### 214600645, 8800490, 70236549, 1538741 #### [facility] [address], [place] [address]Xkqcsmplan [Mass/Vol]2.1 mg/dLHigh0.5-1.3FSouthwest General Health CenterComment on above:Performed By: #### 538281734, 9051455, 83817272, 0063804 #### [facility] [address], [place] [address]Dzgpwnbh (S) [Mass/Vol]2.6 g/dLNormal1.4-4.0[facility] Hospital DaytonComment on above:Performed By: #### 783732116, 3227180, 86611218, 7449995 #### [facility] [address], [place] [address]Ldyhcvx [Mass/Vol]92 mg/vLOomgny76-290JbqbocAccess Hospital DaytonComment on above:Performed By: #### 378946260, 9833077, 40649844, 0357561 #### [facility] [address] [place] [address]Elbqnhuir [Moles/Vol]4.6 mmol/LNormal3.5-5.3FSouthwest General Health CenterComment on above:Performed By: #### 563202223, 6221971, 37250235, 2013427 #### [facility] [address] [place] [address] 514[address]Rtdderz [Mass/Vol]6.5 g/dLNormal6.0-7.8[facility] DaytonComment on above:Performed By: #### 393572105, 3021337, 98841582, 8874258 #### [facility] [address], [place] [address]Vxkngf [Moles/Vol]135 mmol/LDpmkyo171-728UktbiuAccess Hospital DaytonComment on above:Performed By: #### 711378855, 1672327, 43592405, 9016642 #### [facility] [address] [place] [address]Jpfb nitrogen [Mass/Vol]31 mg/dLHigh5-21[facility] Hospital DaytonComment on above:Performed By: #### 584083460, 4400272, 34002558, 7579425 #### [facility] [address], [place] [address]Qlrzullft Orderon 83-57-1952Lfqnhdhas Order [id number]#1.00TIFFNormalAccess Hospital DaytoneGFRon 74-04-0524qEWL29 mL/min/1.73 m2Low>=59[facility] Comment on above:Order Comment: Order added by Discern Expert.Performed By: #### 696546322, 7953020, 88049500, 0413228 #### [facility] [address], [place] [address]VF lumbar spine wo conon 85-18-5667HW lumbar spine wo [facility] [address] [address] MRI Report Signed Patient: Joselito Vidal MR#: [id number] : 1970 Acct:[id number] Age/Sex: 52 / F ADM Date: 06/18/23 Loc: MR Room: Type: [facility] Attending Dr: Dario Palacios DO Copies to: [...] Arianna Urena M.D.06/18/2023 8:28 PM Dictation Location: [place] [address] Transcribed By: [facility] 06/18/232027 Dictated By: Arianna Urena MD 06/18/232010 Signed By: 06/18/232027[facility] GroupXR hip RT min 2V(w/wo pelvis)*on 37-02-1953DZ hip RT min 2V(w/wo pelvis)*[facility] Jack Erwin Other XR hip RT min 2V(w/wo pelvis)*[facility] Jack Erwin Other XR hip RT min 2V(w/wo pelvis)*[facility] Jack Erwin Other xr hip RT min 2V(w/wo pelvis)*ELENA Dobbins [address] [place] [address] Jack Erwin Other XR hip RT min 2V(w/wo pelvis)*[facility] Jack Erwin Other XR hip RT min 2V(w/wo pelvis)*[facility] [employer] Other XR hip RT min 2V(w/wo pelvis)*Patient: Joselito Vidal MR#: [id number] [employer] Other XR hip RT min 2V(w/wo pelvis)*[address] [employer] Other XR hip RT min 2V(w/wo pelvis)*: 1970 Acct:[id number] [employer] Other XR hip RT min 2V(w/wo pelvis)*Age/Sex: 51 / F ADM Date: 11/07/22[place] [employer] Other XR hip RT min 2V(w/wo pelvis)*Loc: XDUCLY Room: Type: [facility] [employer] Other XR hip RT min 2V(w/wo pelvis)*Attending Dr: Ellie Ingram [facility] Other XR hip RT min 2V(w/wo pelvis)*Copies to: ELLIE INGRAM [employer] Other XR hip RT min 2V(w/wo pelvis)*Ordering Provider: ELLIE INGRAM [facility] Other XR hip RT min 2V(w/wo pelvis)*Date of Service: 11/07/22[place] [employer] Other XR hip RT min 2V(w/wo pelvis)* XR/XR hip RT min 2V(w/wo pelvis)*: Right hip painHuron Relationship Analytics Other XR hip RT min 2V(w/wo pelvis)*Single view pelvis and 2 views of the right hip plain filmHuron [employer] Other XR hip RT min 2V(w/wo pelvis)*COMPARISON:[facility] [employer] Other XR hip RT min 2V(w/wo pelvis)*HISTORY:Right hip pain for one year.[employer] Other XR hip RT min 2V(w/wo pelvis)*ACUTE FINDINGS:[facility] [employer] Other XR hip RT min 2V(w/wo pelvis)*DEGENERATIVE CHANGE:UnremarkableHuron [employer] Other XR hip RT min 2V(w/wo pelvis)*SOFT TISSUE FINDINGS:UnremarkableHuron [employer] Other XR hip RT min 2V(w/wo pelvis)*JOINT EFFUSION:[facility] [employer] Other XR hip RT min 2V(w/wo pelvis)*POSTOP CHANGES:[facility] [employer] Other XR hip RT min 2V(w/wo pelvis)*BONY MINERALIZATION:AdequateHuron [employer] Other XR hip RT min 2V(w/wo pelvis)* XR/XR hip RT min 2V(w/wo pelvis)*[employer] Other XR hip RT min 2V(w/wo pelvis)*IMPRESSION:Unremarkable examHuron Relationship Analytics Other XR hip RT min 2V(w/wo pelvis)*Impression dictated by: Juan Adair M.D.11/07/2022 11:54 [facility] [employer] Other XR hip RT min 2V(w/wo pelvis)*Dictation Location: [id number] [employer] Other XR hip RT min 2V(w/wo pelvis)*Transcribed By: SUKHDEV 11/07/[address] [place] [address] [employer] Other XR hip RT min 2V(w/wo pelvis)*Dictated By: Juan Adair DO 11/07/[address] [place] [address] [employer] Other XR hip RT min 2V(w/wo pelvis)*Signed By:[facility] [employer] Other XR hip RT min 2V(w/wo pelvis)*11/07/[address] [place] [address] [employer] Other XR knee RT 4V*on 39-33-6913NL knee RT 4V*[facility] [employer] Other XR knee RT 4V*[facility] [employer] Other XR knee RT 4V*[address] [place] [address] [employer] Other XR knee RT 4V*[place], [place] [address]Bxezo [employer] Other XR knee RT 4V*XRay ReportHuron [employer] Other XR knee RT 4V*SignedHuron [employer] Other XR knee RT 4V*Patient: Joselito Vidal MR#: [id number] [facility] Jack Erwin Other XR knee RT 4V*364[facility] [employer] Other XR knee RT 4V*: 1970 Acct:[id number] [employer] Other XR knee RT 4V*Age/Sex: 51 / F ADM Date: 11/03/22[employer] Other XR knee RT 4V*Loc: XDUCLY Room: Type: [facility] [employer] Other XR knee RT 4V*Attending Dr: Susana Ellis [facility]ICAL CENTERCreditCardsOnline Other XR knee RT 4V*Copies to: Susana Ellis NP-CNCreditCardsOnline Other XR knee RT 4V*Ordering Provider: AGUSTO Aviles [employer] Other XR knee RT 4V*Date of Service: 11/03/22[facility] Other XR knee RT 4V* XR/XR knee RT 4V*: Acute pain of right kneeHuron [employer] Analytics Other XR knee RT 4V*[facility] [address] [facility] [employer] Other XR knee RT 4V*CLINICAL HISTORY: Right knee pain for the past 2 weeks. No recent injury.[employer] Other XR knee RT 4V*COMPARISON: [facility] [employer] Other XR knee RT 4V*AP, lateral and both oblique views were obtained. There is no evidence of fracture or dislocation.[employer] Other XR knee RT 4V*No disproportionate joint space narrowing is present. There is minimal marginal spurring. FluidHuron [employer] Other XR knee RT 4V*is present at the suprapatellar bursa. [employer] Other XR knee RT 4V* XR/XR knee RT 4V* [employer] Other XR knee RT 4V*IMPRESSION:[employer] Other XR knee RT 4V*MINOR DEGENERATIVE CHANGE.[employer] Other XR knee RT 4V*JOINT EFFUSION.[employer] Other XR knee RT 4V*NO ACUTE BONY FINDINGS.[employer] Other XR knee RT 4V*Impression dictated by: Arianna Urena M.D.11/03/2022 2:56 [facility] [employer] Other XR knee RT 4V*Dictation Location: [id number] [employer] Other XR knee RT 4V*Transcribed By: SUKHDEV 11/03/[address] [facility] [employer] Other xr knee RT 4V*Dictated By: Arianna Urena MD 11/03/[address] [place] [address] [employer] Other XR knee RT 4V*Signed By:[employer] Other xr knee RT 4V*11/03/22 [facility] Centerjoblocal [employer] Other Albumin [Mass/volume] in Serum or PlasmaOrdered By: PROVIDER TEMP on 63-36-8212Odetlih [Mass/Vol]3.5 g/dL3.2-5.5FEast Liverpool City HospitalBasophils Auto (Bld) [#/Vol]Ordered By: PROVIDER TEMP on 63-60-2960Ooxlduexw (Bld) [#/Vol]0.1 10*3/uL0.0-0.2FEast Liverpool City HospitalBasophils/100 WBC Auto (Bld)Ordered By: PROVIDER TEMP on 10-08-2022 Basophils/100 WBC (Bld)0.6 %.[facility]opedic CenterCreatine kinase [Enzymatic activity/volume] in Serum or PlasmaOrdered By: PROVIDER TEMP on 10-95-3869PA [Catalytic activity/Vol]65 U/H79-328ImdfxkzqiCrystal Clinic Orthopedic CenterCreatinine and Glomerular filtration rate.predicted panel (S/P/Bld)Ordered By: PROVIDER TEMP on 60-45-8174Gtddvdibhp [Mass/Vol]0.89 mg/dL0.44-1.03[facility]opedic CenterEosinophils Auto (Bld) [#/Vol]Ordered By: PROVIDER TEMP on 42-46-7892Ksjgtkbbulk (Bld) [#/Vol]0.2 10*3/uL0.0-0.45[facility]opedic CenterEosinophils/100 WBC Auto (Bld)Ordered By: PROVIDER TEMP on 36-79-8101Maohzcxeinb/100 WBC (Bld)1.0 %.[facility] Erythrocyte distribution width Auto (RBC) [Ratio]Ordered By: PROVIDER TEMP on 62-15-1381Thncsfsufjj distribution width (RBC) [Ratio]13.9 %11.9-15.3FEast Liverpool City HospitalEstimated glomerular filtration rate (GFR) non- AmericanOrdered By: PROVIDER TEMP on 95-16-2332VFY/1.73 sq M.predicted among non-blacks MDRD (S/P/Bld) [Vol rate/Area]> 60 mL/MinCrystal Clinic Orthopedic CenterGlobulin Calc (S) [Mass/Vol]Ordered By: PROVIDER TEMP on 10-08-2022 Globulin (S) [Mass/Vol]3.1 g/dLCrystal Clinic Orthopedic CenterHematocrit Auto (Bld) [Volume fraction]Ordered By: PROVIDER TEMP on 64-17-8413Dcioofpysi (Bld) [Volume fraction]45.1 %34.0-46.4FEast Liverpool City HospitalHemoglobin [Mass/volume] in BloodOrdered By: PROVIDER TEMP on 99-43-2966Pcicgqxpfz (Bld) [Mass/Vol]14.9 g/dL11.8-15.4FEast Liverpool City HospitalLaboratory - Chemistry and Chemistry - challengeOrdered By: Edie Bolton on 10-08-2022 Natriuretic peptide B (Bld) [Mass/Vol]15.0 pg/mL5-100[facility] Orthopedic CenterLeukocytes [#/volume] corrected for nucleated erythrocytes in Blood by Automated counOrdered By: PROVIDER TEMP on 11-65-5799ZPD corrected for nucl RBC Auto (Bld) [#/Vol]15.5 10*3/uL3.8-11.6FEast [facility] City Hospital Lymphocytes Auto (Bld) [#/Vol]Ordered By: PROVIDER TEMP on 39-66-0826Pxoiaiwbuxm (Bld) [#/Vol]4.6 10*3/uL1.00-4.8[facility] Lymphocytes/100 WBC Auto (Bld)Ordered By: PROVIDER TEMP on 02-09-2023 Lymphocytes/100 WBC (Bld)29.9 %.[facility] HospitalH Auto (RBC) [Entitic mass]Ordered By: PROVIDER TEMP on 06-32-5994DET (RBC) [Entitic mass] 30.8 pg24.7-34.3FBellevue HospitalHC Auto (RBC) [Mass/Vol] Ordered By: PROVIDER TEMP on 44-28-2441SQHT (RBC) [Mass/Vol]33.0 g/dL32.0-35.0 [facility] CenterMCV Auto (RBC) [Entitic vol]Ordered By: PROVIDER TEMP on 16-36-2768CXS (RBC) [Entitic vol]93.5 jR57-557TynrawjmqCrystal Clinic Orthopedic CenterMonocyte distribution width [Entitic volume] in Blood by AutomatedOrdered By: PROVIDER TEMP on 72-15-6616Vcdfmdbm distribution width Auto (Bld) [Entitic vol]15.04 %0.00-20.00[facility] CenterMonocytes Auto (Bld) [#/Vol]Ordered By: PROVIDER TEMP on 13-96-6957Hillvarnr (Bld) [#/Vol] 1.1 10*3/uL0.0-0.8[facility] CenterMonocytes/100 WBC Auto (Bld) Ordered By: PROVIDER TEMP on 71-45-0905Ovrplyahn/100 WBC (Bld)7.1 %.[facility]opedic CenterNeutrophils Auto (Bld) [#/Vol]Ordered By: PROVIDER TEMP on 59-64-3574Xccwgkwcada (Bld) [#/Vol]9.5 10*3/uL1.8-7.7FEast Liverpool City HospitalNeutrophils/100 WBC Auto (Bld)Ordered By: PROVIDER TEMP on 14-13-8284Bcspqdcwagw/100 WBC (Bld)61.4 %.[facility] CenterNo Panel InformationOrdered By: PROVIDER TEMP on 46-29-2502Usbcgkaco GFR ()> 60 mL/MinCrystal Clinic Orthopedic CenterComment on above:GFR estimated reference range: According to KDOQI guidelines, <60 ml/min/1.73m2 is sufficient todiagnose a patient with chronic kidney disease.Pharmacy Creatinine Clearance (Chem91.28[facility]opedic CenterNucleated erythrocytes [Presence] in Blood by Automated countOrdered By: PROVIDER TEMP on 10-08-2022 Nucleated RBC Auto Ql (Bld)0.1 /100{WBC}0-0.5FEast [facility] Hospital Platelet mean volume Auto (Bld) [Entitic vol]Ordered By: PROVIDER TEMP on 06-48-7660Umqascqv mean volume (Bld) [Entitic vol]7.1 fL6.3-10.7FEast Liverpool City HospitalPlatelets Auto (Bld) [#/Vol]Ordered By: PROVIDER TEMP on 83-25-7327Vdvaucfqt (Bld) [#/Vol]357 10*3/xJ832-844HbyrgzjflCrystal Clinic Orthopedic CenterProtein [Mass/volume] in Serum or PlasmaOrdered By: PROVIDER TEMP on 58-78-9766Uugxwqo [Mass/Vol]6.6 g/dL6.1-7.9[facility]opedic CenterRBC Auto (Bld) [#/Vol]Ordered By: PROVIDER TEMP on 37-92-1798YED (Bld) [#/Vol]4.83 10*6/uL3.60-5.00Community Memorial Hospitalerum or plasma alanine aminotransferase measurement without P-5'-P (enzymatic activiOrdered By: PROVIDER TEMP on 05-06-7040NBD No additional P-5'-P [Catalytic activity/Vol]22 U/L83-76CquishlzlCommunity Memorial Hospitalerum or plasma albumin/globulin mass ratioOrdered By: PROVIDER TEMP on 64-63-6219Aoukjap/Globulin [Mass ratio]1.1 {ratio}[facility] Memorial Hospitalerum or plasma alkaline phosphatase measurement (enzymatic activity/volume)Ordered By: PROVIDER TEMP on 10-08-2022 ALP [Catalytic activity/Vol]76 U/Y94-67ZtetqovqdCommunity Memorial Hospitalerum or plasma anion gap determinationOrdered By: PROVIDER TEMP on 44-60-2860Pawdr gap [Moles/Vol]10.6 mmol/L6.0-15.0[facility] Hospitalerum or plasma aspartate aminotransferase measurement (enzymatic activity/volume)Ordered By: PROVIDER TEMP on 95-84-4556ONF [Catalytic activity/Vol]14 U/I48-55QpxcvaormCommunity Memorial Hospitalerum or plasma calcium measurement (mass/volume)Ordered By: PROVIDER TEMP on 06-74-4719Bvrhxhl [Mass/Vol]8.5 mg/dL8.2-10.2FSt. Elizabeth Hospitalerum or plasma chloride measurement (moles/volume) Ordered By: PROVIDER TEMP on 35-40-9490Cdeqlrgn [Moles/Vol]101 mmol/L95-114 [facility] Hospitalerum or plasma creatine kinase MB (CKMB)/total creatine kinase (CK) ratio by calculaOrdered By: PROVIDER TEMP on 10-08-2022 CK.MB Calc [Catalytic fraction]1.8 %0.00-2.50[facility] Serum or plasma creatine kinase MB measurement (mass/volume)Ordered By: PROVIDER TEMP on 13-38-8571CK.MB [Mass/Vol]1.2 ng/mL0.6-6.3FSt. Elizabeth Hospitalerum or plasma glucose measurement (mass/volume)Ordered By: PROVIDER TEMP on 30-32-5129Vrczwql [Mass/Vol]112 mg/hR74-297KngsauvzwCrystal Clinic Orthopedic Center Comment on above:ADA recommended reference rangeRandom Glucose Reference Range is dependent on time and content of last meal. Glucose of more than 200 mg/dL in a nonstressed, ambulatory subject supports the diagnosisof Diabetes Mellitus. Serum or plasma potassium measurement (moles/volume)Ordered By: PROVIDER TEMP on 51-73-6103Qrjoeswpd [Moles/Vol]3.4 mmol/L3.5-5.1FSt. Elizabeth Hospitalerum or plasma sodium measurement (moles/volume)Ordered By: PROVIDER TEMP on 79-36-0481Vlvjli [Moles/Vol]135 mmol/S746-847TcnlnrsvcCommunity Memorial Hospitalerum or plasma total bilirubin measurement (mass/volume)Ordered By: PROVIDER TEMP on 02-70-7137Ldsumvzew [Mass/Vol]0.5 mg/dL0.3-1.2FSt. Elizabeth Hospitalerum or plasma total carbon dioxide measurement (moles/volume)Ordered By: PROVIDER TEMP on 64-30-8358RR0 [Moles/Vol]26.8 mmol/L 22.0-30.0Community Memorial Hospitalerum or plasma urea nitrogen measurement (mass/volume)Ordered By: PROVIDER TEMP on 21-52-1664Oraq nitrogen [Mass/Vol]13 mg/dL9-23[facility]opedic CenterTroponin I.cardiac [Mass/volume] in Serum or Plasma by High sensitivity methodOrdered By: PROVIDER TEMP on 31-06-3923Kukrqsxw I.cardiac High sensitivity method [Mass/Vol]3 pg/mL 0-15[facility]opedic CenterWBC Auto (Bld) [#/Vol]Ordered By: PROVIDER TEMP on 09-82-3933WQB (Bld) [#/Vol]15.5 10*3/uL3.8-11.6FEast Liverpool City HospitalXR chest 2V*on 43-57-1703OJ chest 2V*[facility] [employer] Other XR chest 2V*[facility] [employer] Other XR chest 2V*[address] [place] [address] [employer] Other XR chest 2V*[place], [place] [address]Kiitr [employer] Other XR chest 2V*[facility]Ray [facility] [employer] Other XR chest 2V*[facility] [employer] Other XR chest 2V*Patient: Joselito Vidal MR#: [id number] [employer] Other XR chest 2V*3649[employer] Other XR chest 2V*: 1970 Acct:[id number] Inc. Other xr chest 2V*Age/Sex: 51 / F ADM Date: 10/01/22[employer] Other xr chest 2V*Loc: XDCLY Room: Type: [facility] [employer] Other XR chest 2V*Attending Dr: Ellie Ingram [facility] Jack Erwin Other XR chest 2V*Copies to: ELLIE INGRAM [facility] [employer] Other xr chest 2V*Ordering Provider: ELLIE INGRAMP-[facility] Jack Erwin Other XR chest 2V*Date of Service: 10/01/22[employer] Other XR chest 2V* XR/XR chest 2V*: [facility] [employer] Other XR chest 2V*[facility] [address] [facility] [employer] Other XR chest 2V*CLINICAL HISTORY: Dry cough, hoarseness, shortness of breath, wheezing, upper middle back pain for 3[employer] Other XR chest 2V*weeks.[employer] Other xr chest 2V*COMPARISON: NoneHuron [employer] Other xr chest 2V*FINDINGS:[employer] Other XR chest 2V*Heart normal in size. Mild left lower lobe linear atelectasis/scarring. No consolidationHuron [employer] Other XR chest 2V*pneumothorax pleural effusion or free air. [employer] Other xr chest 2V* XR/XR chest 2V*[employer] Other xr chest 2V*IMPRESSION:[employer] Other XR chest 2V*MILD LEFT LOWER LOBE LINEAR ATELECTASIS/SCARRING. NO CONSOLIDATION TO SUGGEST PNEUMONIA.[employer] Other xr chest 2V*Impression dictated by: Brice Taylor Jr., D.OTracee10/01/2022 3:33 [facility] Jack Erwin Other xr chest 2V*Dictation Location: [id number] Jack Erwin Other xr chest 2V*Transcribed By: PWS 10/01/[address] [place] [address] [employer] Other xr chest 2V*Dictated By: Brice Taylor Jr, DO 10/01/[address] [place] [address] [employer] Other xr chest 2V*Signed By:[employer] Other xr chest 2V*10/01/[address] [place] [address] [employer] Other a1c HEMOGLOBINon 59-05-8558PcT8a (Bld) [Mass fraction] 6.1 %[employer] Other HbA1c (Bld) [Mass fraction]on 63-39-4691M7V HEMOGLOBIN [place] [employer] Other PROF CHEM 8 (BAS METB)on 38-98-4770Zwbjt gap [Moles/Vol]17.9 mmol/LNormalMagruder Memorial HospitalComment on above:Performed By: #### BMP #### [facility] [address] [place] [address] Dr. Isabel WolfeCalcium [Mass/Vol]9.1 mg/dLNormal8.5-10.1[facility] Comment on above:Performed By: #### BMP #### [facility] [address] [address] [address] Isabel WolfeChloride [Moles/Vol]103 mmol/BWpecib78-817CvvMagruder Memorial Hospital Comment on above:Performed By: #### BMP #### [facility] [address] [address] [address] Isabel WolfeCO2 [Moles/Vol]22.9 mmol/CIttrzg24.0-32.0[facility] Comment on above:Performed By: #### BMP #### [facility] [address] [address] [address] Isabel WolfeCreatinine [Mass/Vol]0.92 mg/dLNormal0.55-1.02The [facility] YoungstownComment on above:Performed By: #### BMP #### [facility] [address] [place] [address] Dr. Isabel DesaiGFR-AF LAO>60Normal>=60The [facility] YoungstownComment on above:Performed By: #### BMP #### [facility] [address] [address] [address] Isabel DesaiGFR-NON AF LAO>60Normal>=60The [facility] YoungstownComment on above:Performed By: #### BMP #### [facility] [address] [place] [address] Dr. Isabel WolfeGlucose [Mass/Vol]178 mg/dLCritically jlcq08-138Dvl [facility] YoungstownComment on above:Performed By: #### BMP #### [facility] [address] [place] [address] Dr. Isabel WolfePotassium [Moles/Vol]3.8 mmol/LNormal3.5-5.1The [facility] Comment on above:Performed By: #### BMP #### [facility] [address] [place] [address] Dr. Isabel WolfeSodium [Moles/Vol]140 mmol/FBosxwa897-321Uvt [facility] Comment on above:Performed By: #### BMP #### [facility] [address] [place] [address] Dr. Isabel WolfeUrea nitrogen [Mass/Vol]11.0 mg/dLNormal7.0-18.0The [facility] YoungstownComment on above:Performed By: #### BMP #### [facility] [address] [place] [address] Dr. Isabel Ibrahim nitrogen/Creatinine [Mass ratio]12.0 mg/mgNormalThe [facility] YoungstownComment on above:Performed By: #### BMP #### [facility] [address] [place] [address] Dr. Yilan ChangCOVID + FLU Quick Testingon 97-51-3988FHNH-CoV-2 (COVID-19) RNA PIPER+probe Ql (Unsp spec)NegativeHuron [employer] Analytics Other COVID + FLU Quick TestingNegativeBlackford Analysis Other Quick Strepon 09-20-2022S. pyogenes Org specific cx Ql (Throat)NegativeHuron Relationship [employer] Other Quick StrepBlackford Analysis Other Automated erythrocytes count in urine sediment (number/area)Ordered By: Reinaldo Mehta on 89-80-9106HIG Auto (Urine sed) [#/Area]1-2 [HPF]0-4FEast Liverpool City HospitalAutomated leukocytes count in urine sediment (number/area)Ordered By: Reinaldo Mehta on 44-98-9655OOP Auto (Urine sed) [#/Area]3-4 [HPF]0-4FEast Liverpool City HospitalBasophils Auto (Bld) [#/Vol]Ordered By: Reinaldo Mehta on 99-66-1565Elchltsen (Bld) [#/Vol]0.1 10*3/uL0.0-0.2FEast Liverpool City HospitalBasophils/100 WBC Auto (Bld) Ordered By: Reinaldo Mehta on 43-71-0938Mmzdxftud/100 WBC (Bld)0.6 %.[facility] Orthopedic CenterBilirubin Test strip Ql (U)Ordered By: Reinaldo Mehta on 44-34-2539Glwywzlbt Ql (U)NegativeNegativeCrystal Clinic Orthopedic CenterBody fluid albumin measurement (mass/volume)Ordered By: Reinaldo Mehta on 09-10-2022 Albumin (Body fld) [Mass/Vol]3.6 g/dL3.2-5.5FEast [facility] Color Auto (U)Ordered By: Reinaldo Mehta on 98-22-5123Xsvgj (U)YellowYellow [facility] CenterCreatinine and Glomerular filtration rate.predicted panel (S/P/Bld)Ordered By: Reinaldo Mehta on 34-73-6734Zltkehwezv [Mass/Vol]0.84 mg/dL0.44-1.03[facility]opedic CenterDirect bilirubin measurementOrdered By: Reinaldo Mehta on 31-19-8162Ozvwfprxw.direct [Mass/Vol]0.1 mg/dL0.0-0.4FEast Liverpool City HospitalEosinophils Auto (Bld) [#/Vol] Ordered By: Reinaldo Mehta on 58-83-8675Qstvlnbwiee (Bld) [#/Vol]0.2 10*3/uL 0.0-0.45[facility]opedic CenterEosinophils/100 WBC Auto (Bld)Ordered By: Reinaldo Mehta on 00-52-4672Imlufqpckec/100 WBC (Bld)1.6 %.[facility]opedic CenterErythrocyte distribution width Auto (RBC) [Ratio]Ordered By: Reinaldo Mehta on 69-78-5533Pcthkdzxykk distribution width (RBC) [Ratio]13.6 % 11.9-15.3FEast Liverpool City HospitalEstimated glomerular filtration rate (GFR) non- AmericanOrdered By: Reinaldo Mehta on 08-15-7633DAK/1.73 sq M.predicted among non-blacks MDRD (S/P/Bld) [Vol rate/Area]> 60 mL/MinCrystal Clinic Orthopedic CenterGlobulin Calc (S) [Mass/Vol]Ordered By: Reinaldo Mehta on 60-49-7468Jmnjiiel (S) [Mass/Vol]3.1 g/dLCrystal Clinic Orthopedic Center Hematocrit Auto (Bld) [Volume fraction]Ordered By: Reinaldo Mehta on 09-10-2022 Hematocrit (Bld) [Volume fraction]40.7 %34.0-46.4FEast Liverpool City HospitalHemoglobin [Mass/volume] in BloodOrdered By: Reinaldo Mehta on 09-10-2022 Hemoglobin (Bld) [Mass/Vol]13.5 g/dL11.8-15.4FEast [facility] Hospital Ketones Auto test strip (U) [Mass/Vol]Ordered By: Reinaldo Mehta on 09-10-2022 Ketones (U) [Mass/Vol]TraceNegativeCrystal Clinic Orthopedic CenterLaboratory - Chemistry and Chemistry - challengeOrdered By: Reinaldo Mehta on 09-10-2022 Lipase [Catalytic activity/Vol]41.0 U/G83-08MmjubytzzCrystal Clinic Orthopedic Center Laboratory - CoagulationOrdered By: Reinaldo Mehta on 63-11-1210NW Coag (PPP) [Time]13.6 s9.0-12.9[facility] CenterLaboratory - Urinalysis Ordered By: Reinaldo Mehta on 20-39-7743Ytukctm casts LM Ql (Urine sed)0-8 [LPF] 0-8[facility]opedic CenterLeukocytes [#/volume] corrected for nucleated erythrocytes in Blood by Automated counOrdered By: Reinaldo Mehta on 69-70-4621UPV corrected for nucl RBC Auto (Bld) [#/Vol]11.7 10*3/uL3.8-11.6 [facility]opedic CenterLymphocytes Auto (Bld) [#/Vol]Ordered By: Reinaldo Mehta on 64-40-7006Hefduqowrhn (Bld) [#/Vol]3.5 10*3/uL1.00-4.8[facility]opedic CenterLymphocytes/100 WBC Auto (Bld)Ordered By: Reinaldo Mehta on 44-39-0841Jwmjwfbjrsd/100 WBC (Bld)29.7 %.[facility] MCH Auto (RBC) [Entitic mass]Ordered By: Reinaldo Mehta on 14-57-0644QIZ (RBC) [Entitic mass]30.5 pg24.7-34.3FEast Liverpool City HospitalMCHC Auto (RBC) [Mass/Vol]Ordered By: Reinaldo Mehta on 45-30-1381GRXW (RBC) [Mass/Vol]33.2 g/dL 32.0-35.0[facility]opedic CenterMCV Auto (RBC) [Entitic vol]Ordered By: Reinaldo Mehta on 17-45-8662MBO (RBC) [Entitic vol]91.9 eQ68-104AjlbchljaCrystal Clinic Orthopedic CenterMonocyte distribution width [Entitic volume] in Blood by AutomatedOrdered By: Reinaldo Mehta on 65-70-3836Oteimfdm distribution width Auto (Bld) [Entitic vol]18.22 %0.00-20.00[facility]opedic CenterMonocytes Auto (Bld) [#/Vol]Ordered By: Reinaldo Mehta on 59-51-0745Khocpdrtp (Bld) [#/Vol] 0.8 10*3/uL0.0-0.8[facility] CenterMonocytes/100 WBC Auto (Bld) Ordered By: Reinaldo Mehta on 10-96-5814Kahvcotlr/100 WBC (Bld)6.7 %.[facility]opedic CenterNeutrophils Auto (Bld) [#/Vol]Ordered By: Reinaldo Mehta on 68-07-6058Yarcggrgpsh (Bld) [#/Vol]7.2 10*3/uL1.8-7.7FEast Liverpool City HospitalNeutrophils/100 WBC Auto (Bld)Ordered By: Reinaldo Mehta on 15-77-3315Zqvnoaumtzn/100 WBC (Bld)61.4 %.[facility] Nitrite Test strip Ql (U)Ordered By: Reinaldo Mehta on 67-78-3232Jmmejzd Ql (U) NegativeNegativeCrystal Clinic Orthopedic CenterNo Panel InformationOrdered By: Reinaldo Mehta on 65-04-9449Cpvvvklms GFR ()> 60 mL/MinCrystal Clinic Orthopedic CenterComment on above:GFR estimated reference range: According to KDOQI guidelines, <60 ml/min/1.73m2 is sufficient todiagnose a patient with chronic kidney disease.Pharmacy Creatinine Clearance (Qxzt198.87 [facility]opedic CenterNucleated erythrocytes [Presence] in Blood by Automated countOrdered By: Reinaldo Mehta on 56-84-8024Slqosswek RBC Auto Ql (Bld)0.0 /100{WBC}0-0.5FEast Liverpool City HospitalPlatelet mean volume Auto (Bld) [Entitic vol]Ordered By: Reinaldo Mehta on 97-02-2167Aefertqt mean volume (Bld) [Entitic vol]7.7 fL6.3-10.7FEast [facility] Hospital Platelet poor plasma international normalized ratio (INR) by coagulation assay (relatOrdered By: Reinaldo Mehta on 14-46-9084OBA Coag (PPP) [Relative time]1.2 {INR}[facility]opedic CenterComment on above:INR Therapeutic Range A) Pre- and Peroperative OAT started two weeks before surgery. NOT HIP SURGERY: 1.5 - 2.5 HIP SURGERY: 2 - 3B) Primary and secondary prevention of venous THROMBOSIS: 2 - 3C) Active venous thrombosis, pulmonary embolismand prevention of recurrent venous thrombosis: 2 - 3D) Prevention of arterial thromboembolismincluding patients with mechanical heart valves: 3 - 4.5Platelets Auto (Bld) [#/Vol]Ordered By: Reinaldo Mehta on 26-22-1703Qnnequpfu (Bld) [#/Vol] 367 10*3/nB872-197OmgsgoqmeCrystal Clinic Orthopedic CenterProtein Auto test strip (U) [Mass/Vol]Ordered By: Reinaldo Mehta on 64-23-6087Gqhmvzq (U) [Mass/Vol]Trace mg/dLNegativeCrystal Clinic Orthopedic CenterProtein [Mass/volume] in Serum or PlasmaOrdered By: Reinaldo Mehta on 84-03-2716Dsobbdq [Mass/Vol]6.7 g/dL6.1-7.9 [facility] Orthopedic CenterRBC Auto (Bld) [#/Vol]Ordered By: Reinaldo Mehta on 63-17-9570ZWE (Bld) [#/Vol]4.42 10*6/uL3.60-5.00[facility] Hospitalerum or plasma alanine aminotransferase measurement without P-5'-P (enzymatic activiOrdered By: Reinaldo Mehta on 53-70-8257XGC No additional P-5'-P [Catalytic activity/Vol]16 U/Q31-77CtaqhdckdCommunity Memorial Hospitalerum or plasma albumin/globulin mass ratioOrdered By: Reinaldo Mehta on 09-10-2022 Albumin/Globulin [Mass ratio]1.2 {ratio}[facility] Hospitalerum or plasma alkaline phosphatase measurement (enzymatic activity/volume)Ordered By: Reinaldo Mehta on 92-00-6877KUL [Catalytic activity/Vol]89 U/G58-75EnyckxygpCommunity Memorial Hospitalerum or plasma anion gap determinationOrdered By: Reinaldo Mehta on 60-33-0551Kzssc gap [Moles/Vol]15.1 mmol/L6.0-15.0[facility] Hospitalerum or plasma aspartate aminotransferase measurement (enzymatic activity/volume)Ordered By: Reinaldo Mehta on 03-86-6888FUC [Catalytic activity/Vol]15 U/R63-39CocfgrnzpCommunity Memorial Hospitalerum or plasma calcium measurement (mass/volume)Ordered By: Reinaldo Mehta on 23-71-4067Kaxjkfa [Mass/Vol]9.2 mg/dL8.2-10.2FSt. Elizabeth Hospitalerum or plasma chloride measurement (moles/volume)Ordered By: Reinaldo Mehta on 09-10-2022 Chloride [Moles/Vol]101 mmol/P04-244IxlpxugtyCommunity Memorial Hospitalerum or plasma glucose measurement (mass/volume)Ordered By: Reinaldo Mehta on 09-10-2022 Glucose [Mass/Vol]91 mg/eL42-409TiakllgceCrystal Clinic Orthopedic CenterComment on above:ADA recommended reference rangeRandom Glucose Reference Range is dependent on time and content of last meal. Glucose of more than 200 mg/dL in a nonstressed, ambulatory subject supports the diagnosisof Diabetes Mellitus.Serum or plasma non-glucuronidated bilirubin measurement (mass/volume)Ordered By: Reinaldo Mehta on 80-75-4371Fgoahaejd.indirect [Mass/Vol]0.4 mg/dLCommunity Memorial Hospitalerum or plasma potassium measurement (moles/volume) Ordered By: Reinaldo Mehta on 17-26-5656Ksiijazng [Moles/Vol]2.9 mmol/L3.5-5.1 [facility]opedic CenterComment on above:Results calledat 1920 on 09/10/22Serum or plasma sodium measurement (moles/volume)Ordered By: Reinaldo Mehta on 94-69-7198Kzcusv [Moles/Vol]137 mmol/R663-687HhczzcrzvCommunity Memorial Hospitalerum or plasma total bilirubin measurement (mass/volume)Ordered By: Reinaldo Mehta on 42-09-4140Hknuafand [Mass/Vol]0.5 mg/dL0.3-1.2FSt. Elizabeth Hospitalerum or plasma total carbon dioxide measurement (moles/volume)Ordered By: Reinaldo Mehta on 40-18-2605WV0 [Moles/Vol]23.8 mmol/L 22.0-30.0[facility] Hospitalerum or plasma urea nitrogen measurement (mass/volume)Ordered By: Reinaldo Mehta on 07-90-6987Ixqh nitrogen [Mass/Vol]10 mg/dL9-23Community Memorial Hospitalpecific gravity Auto test strip (U) [Rel density]Ordered By: Reinaldo Mehta on 86-98-5027Nalrqcmg gravity (U) [Rel density]1.0251.001-1.030[facility] Squamous epithelial cells detection in urine sediment by light microscopyOrdered By: Reinaldo Mehta on 32-62-1980Sjrfwszqbf cells.squamous LM Ql (Urine sed)1-2 [HPF]0-2FEast Liverpool City HospitalUrine bacteria detection by automated methodOrdered By: Reinaldo Mehta on 83-07-3563Nrkjbman Auto Ql (U)None seenNone SeenCrystal Clinic Orthopedic CenterUrine clarity by refractometry automated Ordered By: Reinaldo Mehta on 26-19-6936Mcuwjyk Refractometry automated (U)Clear ClearCrystal Clinic Orthopedic CenterUrine glucose measurement by automated test strip (mass/volume)Ordered By: Reinaldo Mehta on 99-69-6396Xwoqbwz Auto test strip (U) [Mass/Vol]Normal mg/dLNormOhioHealth Grove City Methodist HospitalUrine hemoglobin detection by automated test stripOrdered By: Reinaldo Mehta on 16-65-7025Hnugqxdxzb Auto test strip Ql (U)NegativeNegativeCrystal Clinic Orthopedic CenterUrine leukocyte esterase detection by automated test stripOrdered By: Reinaldo Mehta on 91-41-2358Vbhqclxgf esterase Auto test strip Ql (U)1+ NegativeCrystal Clinic Orthopedic CenterUrobilinogen Auto test strip (U) [Mass/Vol]Ordered By: Reinaldo Mehta on 44-78-2777Vmhqlpqggokm (U) [Mass/Vol] Normal mg/dLNormOhioHealth Grove City Methodist HospitalWBC Auto (Bld) [#/Vol]Ordered By: Reinaldo Mehta on 32-99-7541LJR (Bld) [#/Vol]11.7 10*3/uL3.8-11.6FEast Liverpool City HospitalpH Auto test strip (U)Ordered By: Reinaldo Mehta on 84-39-7526oH (U)6.0 [pH]5.0-9.0[facility] Orthopedic CenterCOVID/FLU RT-PCR on 13-24-0682SWAU-CoV-2 (COVID-19) RNA PIPER+probe Ql (Unsp spec)NegativeNort [employer] Other COVID/FLU RT-PCRNegativeNomercy hospital st. [place] [employer] Other Quick Strepon 07-02-2022. pyogenes Org specific cx Ql (Throat)NegativeNomercy hospital st. [place] [employer] Other Quvde StrepIsotera [employer] Other FREE T4on 95-11-8216Ypdy T4 [Mass/Vol]0.77 ng/dLNormal 0.76-1.46The [facility] YoungstownComment on above:Performed By: #### FT4 #### [facility] [address] [place] [address] Dr. Isabel WolfeT4on 13-66-0700K9 [Mass/Vol]6.20 ug/dLNormal4.80-13.90The [facility] YoungstownComment on above:Performed By: #### T4, TSH #### [facility] [address] [place] [address] Dr. Isabel WolfeTSHozbigniew 69-29-7380FID9.845 uIU/mLNormal0.358-3.740The [facility] YoungstownComment on above:Performed By: #### T4, TSH #### [facility] [address] [place] [address] Dr. Isabel WolfeMICROALBUMIN/ CREATININE RATIOon 78-79-9297Woiltcm, Urine4.4 ug/mLNormalNot Estab.The [facility] YoungstownComment on above:Performed By: #### MALBCRL #### [facility] [address] [place] [address] Dr. Isabel WolfeAlbumin/ Creatinine Ratio11 mg/g creatNormal0-29Magruder Memorial HospitalComment on above:Result Comment: Normal: 0 - 29 Moderately increased: 30 - 300 Severely increased: >300Performed By: #### MALBCRL #### [facility] [address] [place] [address] Dr. Isabel WolfeCreatinine, Urine41.2 mg/dLNormalNot Estab.The [facility] Comment on above:Performed By: #### MALBCRL #### [facility] [address] [address] [address] Isabel WolfeGLYCOHEMOGLOBIN A1Con 22-44-8240EIQ RECOMMENDATIONSEE BELOWTrumbull Regional Medical CenterComment on above:Result Comment: ADA RECOMMENDED LIMIT 4.0 - 6.0 ADA THERAPEUTIC TARGET < 7.0 ACTION SUGGESTED > 7.0Performed By: #### A1C #### [facility] [address] [address] [address] Isabel WolfeGlucose [Mass/Vol]117 mg/dLNoBarberton Citizens HospitalComment on above:Performed By: #### A1C #### [facility] [address] [address] [address] Isabel WolfeHbA1c (Bld) [Mass fraction]5.7 %Normal4.5-6.2[facility]uder Memorial HospitalComment on above:Performed By: #### A1C #### [facility] [address] [address] [address] Isabel WolfeLIPID PROFILEon 83-99-7398BMWY-HDL RATIO NORMSEE BELOWAultman Orrville HospitalComment on above:Result Comment: 3.3 - 4.4 LOW RISK 4.4 - 7.1 AVERAGE RISK 7.1 - 11.0 MODERATE RISK >11.0 HIGH RISKPerformed By: #### LIPID, CMP #### [facility] [address] [address] [address] Isabel WolfeCholesterol [Mass/Vol]165 mg/dLNormal<=200The [facility] Comment on above:Performed By: #### LIPID, CMP #### [facility] [address] [address] [address] Isabel WolfeCholesterol in HDL [Mass/Vol]38 mg/dLCritically jec76-39Hhb [facility] YoungstownComment on above:Performed By: #### LIPID, CMP #### [facility] [address] [address] [address] Isabel Wolfeesterol in LDL [Mass/Vol]110.0 mg/dLNoOhioHealth O'Bleness Hospital HospitalComment on above:Performed By: #### LIPID, CMP #### [facility] [address] [place] [address] Dr. Isabel WolfeCholesterol.total/Cholesterol in HDL [Mass ratio]4.3 {ratio} NormalThe [facility] - YoungstownComment on above:Performed By: #### LIPID, CMP #### [facility] [address] [place] [address] Dr. Isabel Ramirez NORMAL> or = 60 mg/dl - LOW CARDIOVASCULAR RISK <40 mg/dl - HIGH CARDIOVASCULAR RISKAultman Orrville HospitalComment on above:Performed By: #### LIPID, CMP #### [facility] [address] [place] [address] Dr. Isabel Sparks CALC NORMALSEE BELOWAultman Orrville HospitalComment on above:Result Comment: <100 mg/dl OPTIMAL 100 - 129 mg/dl NEAR OR ABOVE OPTIMAL 130 - 159 mg/dl BORDERLINE HIGH 160 - 189 mg/dl HIGH >190 mg/dl VERY HIGH Performed By: #### LIPID, CMP #### [facility] [address] [place] [address] Dr. Isabel WolfeTriglyceride [Mass/Vol]85 mg/dLNormal<=150[facility] Comment on above:Performed By: #### LIPID, CMP #### [facility] [address] [place] [address] Dr. Isabel ColladoLDL CALC17.0 mg/dLNoBarberton Citizens HospitalComment on above: Performed By: #### LIPID, CMP #### [facility] [address] [place] [address] Dr. Isabel WolfePROF 14(COMP METB)on 38-03-1331Ttcudlo [Mass/Vol]3.3 g/dL Critically low3.4-5.0The [facility] YoungstownComment on above:Performed By: #### LIPID, CMP #### [facility] [address] [place] [address] Dr. Isabel WolfeAlbumin/Globulin [Mass ratio]0.9 {ratio}NormalThe [facility] YoungstownComment on above:Performed By: #### LIPID, CMP #### [facility] [address] [address] [address] Isabel Brandon [Catalytic activity/Vol]86 U/JSbkrha99-881Hxq [facility] YoungstownComment on above:Performed By: #### LIPID, CMP #### [facility] [address] [address] [address] Isabel Matute [Catalytic activity/Vol]17 U/GVifmar69-93Jwg [facility] YoungstownComment on above:Performed By: #### LIPID, CMP #### [facility] [address] [address] [address] Isabel Guevara gap [Moles/Vol]14.3 mmol/LNormalThe [facility] Comment on above:Performed By: #### LIPID, CMP #### [facility] [address] [address] [address] Isable WolfeAST [Catalytic activity/Vol]10 U/LCritically pbg70-68Tcg [facility] YoungstownComment on above:Performed By: #### LIPID, CMP #### [facility] [address] [address] [address] Isabel WolfeBilirubin [Mass/Vol]0.5 mg/dLNormal0.2-1.0The [facility] Comment on above:Performed By: #### LIPID, CMP #### [facility] [address] [address] [address] Isabel WolfeCalcium [Mass/Vol]9.0 mg/dLNormal8.5-10.1The [facility] Comment on above:Performed By: #### LIPID, CMP #### [facility] [address] [address] [address] Isabel WolfeChloride [Moles/Vol]104 mmol/YTbxtpy69-393Cls [facility] Comment on above:Performed By: #### LIPID, CMP #### [facility] [address] [address] [address] Isabel WolfeCO2 [Moles/Vol]25.8 mmol/AVssoro84.0-32.0The [facility] Comment on above:Performed By: #### LIPID, CMP #### [facility] [address] [address] [address] Isabel WolfeCreatinine [Mass/Vol]0.95 mg/dLNormal0.55-1.02The [facility] YoungstownComment on above:Performed By: #### LIPID, CMP #### [facility] [address] [address] [address] Isabel DesaiGFR-AF LAO>60Normal>=60The [facility] - YoungstownComment on above:Performed By: #### LIPID, CMP #### [facility] [address] [address] [address] Isabel DesaiGFR-NON AF LAO>60Normal>=60The [facility] YoungstownComment on above:Performed By: #### LIPID, CMP #### [facility] [address] [address] [address] Isabel WolfeGlobulin (S) [Mass/Vol]3.6 g/dLNormalThe [facility] YoungstownComment on above:Performed By: #### LIPID, CMP #### [facility] [address] [address] [address] Isabel WolfeGlucose [Mass/Vol]101 mg/kXMkvela03-738MekMagruder Memorial Hospital Comment on above:Performed By: #### LIPID, CMP #### [facility] [address] [address] [address] Isabel WolfePotassium [Moles/Vol]4.1 mmol/LNormal3.5-5.1The [facility] Comment on above:Performed By: #### LIPID, CMP #### [facility] [address] [address] [address] Isabel WolfeProtein [Mass/Vol]6.9 g/dLNormal6.4-8.2The [facility] Comment on above:Performed By: #### LIPID, CMP #### [facility] [address] [address] [address] Isabel WolfeSodium [Moles/Vol]140 mmol/AZlnyza458-965Sgh [facility] Comment on above:Performed By: #### LIPID, CMP #### [facility] [address] [place], [place] [address] Dr. Isabel Ibrahim nitrogen [Mass/Vol]12.0 mg/dLNormal7.0-18.0The [facility] YoungstownComment on above:Performed By: #### LIPID, CMP #### [facility] [address] [place], [place] [address] Dr. Isabel Ibrahim nitrogen/Creatinine [Mass ratio]12.6 mg/mgNormalThe [facility] YoungstownComment on above:Performed By: #### LIPID, CMP #### [facility] [address] [place], [place] [address] Dr. Isabel North Quick Testingon 98-69-1986RzdignNdwkvyqkOwlps [employer] Other MRI ELBOW LEFT WO CONTRASTon 21-03-2640VMG ELBOW LEFT WO CONTRASTEXAMINATION: MRI OF THE LEFT ELBOW WITHOUT CONTRAST, [...] Signed by: Jay Umanzor MD 08/10/20 Final resultNormalMerProvidence Tarzana Medical Center1. High-grade partial- thickness tearing at the origin of the common extensor tendon with moderate un derlying tendinosis. 2. Small joint effusion. No intra-articular loose body. 3. No acute osseous abnormality.[facility], [place]: MRI OF THE LEFT ELBOW WITHOUT CONTRAST, [...] appearance. JOINT SPACES: Small joint effusion. No intra- articular loose body. Radiohumeral and ulnohumeral joint spaces are well maintained. BONE MARROW: Osseous alignment is normal. No acute fracture or dislocation. Bone marrow signal intensity within the visualized osseous structures is within normal limits. No marginal erosions. SOFT TISSUES: No discrete organized fluid collection identified within the visualized soft tissues.[facility], [place], [facility] Incoming Radiant Results From [facility]/Expanite - 08/10/2020 2:33 PM EST EXAMINATION: MRI [...] loose body. 3. No acute osseous abnormality. [place], [place] Vital Signs Date TimeVital SignValuePerforming KqpuouaadMqkrewui29-48-6576 14:11-0400Body snskiy346.5 [facility]10-08-2025 14:11-0400Body mass index (BMI) [Ratio]44.26 kg/m2[facility]10-08-2025 14:11-0400Body byqbrd535.77 kgI[facility]10-08-2025 14:11-0400Diastolic blood jecrhuuj45 mm[Hg][facility] 06-06-2025 14:11-0400Systolic blood dwsrqaia148 mm[Hg][facility]10-02-2025 13:27-0400Body .5 Nahomi Larios MD Work Phone: [facility]10-02-2025 13:27-0400 Body mass index (BMI) [Ratio]44.41 kg/m2Martin Larios MD Work Phone: [facility]10-02-2025 13:27-0400 Body ehaqhk285.13 Alina Larios MD Work Phone: [facility]10-02-2025 13:27-0400 Diastolic blood wjakkayq51 mm[Hg]Martin Larios MD Work Phone: [facility]10-02-2025 13:27-0400 Heart rate60 /minMartin Larios MD Work Phone: [facility]10-02-2025 13:27-0400 Systolic blood ioxydsar042 mm[Hg]Martin Larios MD Work Phone: [facility]09-23-2025 09:55-0400 Body .5 Vicente Celestin THREAD WEAVER Work Phone: [facility] CenterCurinkivco84-14-1950 09:55-0400Body mass index (BMI) [Ratio]44.99 kg/u1ZwlsndAnamika Celestin THREAD WEAVER Work Phone: [facility] CenterLlwjzxicto14-30-3717 09:55-0400Body ilxhki023.58 kgShsuhas Celestin THREAD WEAVER Work Phone: [facility] CenterOyxsucrpid47-86-4577 09:55-0400Diastolic blood shwfywub16 mm[Hg]Anamika Celestin THREAD WEAVER Work Phone: [facility] CenterLoduvqyrjt30-02-5592 09:55-0400Heart rate64 /min Anamika Celestin THREAD WEAVER Work Phone: [phone] CenterMoyqtxreip50-41-2543 09:55-0400Respiratory rate17 /minSdhaval Celestin THREAD WEAVER Work Phone: [facility] CenterYajiqmbets69-31-5512 09:55-3240UbA9% (BldA) [Mass fraction]97 %Anamika Celestin THREAD WEAVER Work Phone: [facility] CenterOhavrxfaaw26-06-7205 09:55-0400Systolic blood mm[Hg]Anamika Celestin THREAD WEAVER Work Phone: [place] [address]Nmfgsvdlkc25-36-6372 10:03-0400Body ramlar654.5 Vicente Celestin THREAD WEAVER Work Phone: [facility] CenterWljijadunm46-52-4620 10:03-0400Body mass index (BMI) [Ratio]45.73 kg/l3YjyziaAnamika Celestin THREAD WEAVER Work Phone: [facility] CenterNjpkybthsv56-14-0691 10:03-0400Body vewbbg914.4 kgAnamika Celestin THREAD WEAVER Work Phone: [facility] CenterQoilnvkdlc40-73-2316 10:03-0400Diastolic blood jiwohxag30 mm[Hg]Anamika Celestin THREAD WEAVER Work Phone: [facility] CenterRbhwrrjxgm36-22-1447 10:03-0400Heart rate76 /min Anamika Celestin THREAD WEAVER Work Phone: [phone] [place], [place] [address]Asenjotthv87-83-7766 10:03-0400Respiratory rate17 /minSdhaval Celestin THREAD WEAVER Work Phone: [phone] [place], [place] [address]Vsdeffbfgb00-81-8778 10:03-2241CnM6% (BldA) [Mass fraction]98 %Anamika Celestin THREAD WEAVER Work Phone: [facility] CenterKunvorjxbl05-01-4532 10:03-0400Systolic blood vkutiwpt555 mm[Hg]Anamika Celestin THREAD WEAVER Work Phone: 1(129)[phone] [place], [place] [address]Asjseckxxi70-63-5339 15:06-0400Body uyanyu495.5 cmAnthony Rusher DPM Work Phone: [phone] [place], [place] [address]Qjuclvotuj26-12-9410 15:06-0400Body mass index (BMI) [Ratio]49.02 kg/f6Asxsbub Rusher DPM Work Phone: [phone])900-[address] [place], [place] [address]Uzkhrnxafz07-16-1225 15:06-0400Body .56 kgAnthony Rusher DPM Work Phone: 1(474)859-[address] [place], [place] [address]Ljxjafcckt78-63-7420 14:42-0400Body rxmpam173.56 kgAnthony Rusher DPM Work Phone: [phone]04-03-2025 12:26-0400Body zqweqv198.5 Nahomi Larios MD Work Phone: [facility]04-03-2025 12:26-0400 Body mass index (BMI) [Ratio]46.2 kg/m2Martin Larios MD Work Phone: [facility]04-03-2025 12:26-0400 Body mmhzzu439.58 kgMartin Larios MD Work Phone: [facility]04-03-2025 12:26-0400 Diastolic blood qejwocow03 mm[Hg]Martin Larios MD Work Phone: [facility]04-03-2025 12:26-0400 Heart rate70 /Prashant Larios MD Work Phone: [phone]-[facility]04-03-2025 12:26-0400 Systolic blood djpuobao076 mm[Hg]Martin Larios MD Work Phone: 1(859)762-[address] [place], [place] [address]03-20-2025 11:01-0400 Diastolic blood kjuwwlnx37 mm[Hg][address] 11-16-2024 11:01-0400Heart rate75 /minSam [address] [place] [address] 11-16-2024 11:01-1532EfA3% (BldA) [Mass fraction]97 %[address]03-20-2025 11:01-0400Systolic blood ynfusysa798 mm[Hg][address]02-20-2025 14:39-0500Heart rate64 /minKLUNABELUISITO NKSAWYERAH-AMANKRA [facility]02-20-2025 14:39-3547KtY0% (BldA) [Mass fraction]96 %YESENIA NKANSAH-AMANKRA [facility]02-20-2025 14:39-0500 Respiratory rate18 /minKWABENA NKANSAH-AMANKRA [facility]02-20-2025 14:39-0500 Diastolic blood mm[Hg]YESENIA NKANSAH-AMANKRA [facility]02-20-2025 14:39-0500Mean blood mm[Hg]YESENIA NKANSAH-AMANKRA [facility]02-20-2025 14:39-0500 Systolic blood lwweicxl108 mm[Hg]YESENIA NKANSAH-AMANKRA [facility]02-20-2025 14:39-0500Blood Pressure LocationKWABENA NKANSAH-AMANKRA [facility]02-20-2025 13:26-0500Heart rate64 /minSONYANA JOHNANSAH-AMANKRA [facility]02-20-2025 13:26-9590SyE7% (BldA) [Mass fraction]98 %YESENIA NKANSAH-AMANKRA [address] [place], [place] 3[address]702-20-2025 13:26-0500 Respiratory rate16 /minYESENIA LOPEZANSAH-AMANKRA [facility]02-20-2025 13:25-0500Blood Pressure LocationKLUNABENA NKANSAH-AMANKRA [facility]02-20-2025 13:25-0500 Diastolic blood tdztezuf52 mm[Hg]YESENIA NKANSAH-AMANKRA [facility]02-20-2025 13:25-0500Mean blood mmzzzurp15 mm[Hg]YESENIA NKANSAH-AMANKRA [facility]02-20-2025 13:25-0500 Systolic blood isirnese173 mm[Hg]YESENIA NKANSAH-AMANKRA [facility]02-20-2025 13:11-0500Blood Pressure LocationKWABENA NKANSAH-AMANKRA [facility]02-20-2025 13:11-0500Body axbdcglkays39.52 [degF]YESENIA NKANSAH-AMANKRA [facility]02-20-2025 13:11-0500 Diastolic blood hsivhbcc80 mm[Hg]YESENIA NKANSAH-AMANKRA [address] [place], [place] 3[address]702-20-2025 13:11-0500Heart rate64 /minKWABENA NKANSAH-AMANKRA [address] [place], [place] 3[address]-20-2025 13:11-0500 Respiratory rate16 /minKWABENA NKANSAH-AMANKRA [address] [place], [place] 3347702-20-2025 13:11-5757TeK7% (BldA) [Mass fraction]97 %YESENIA NKANSAH-AMANKRA [address] [place], [place] 3347702-20-2025 13:11-0500 Systolic blood mwqovcwp886 mm[Hg]YESENIA NKANSAH-AMANKRA [address] [place], [place] 3[address]702-20-2025 13:01-0500 Respiratory rate17 /minKWABENA NKANSAH-AMANKRA [address] [place], [place] [address]-20-2025 12:56-0500 Respiratory rate12 /minKWABENA NKANSAH-AMANKRA [address] [place], [place] 3347702-20-2025 12:46-0500Body apgqhshzeyf00.34 [degF]YESENIA NKANSAH-AMANKRA [address] [place], [place] 3347702-20-2025 09:21-0500Mean blood shdgqyvq51 mm[Hg]YESENIA NKANSAH-AMANKRA [address] [place], [place] 3[address]-20-2025 09:18-0500 Respiratory rate20 /minKWABENA NKANSAH-AMANKRA [facility]02-20-2025 09:18-0500Body fwjlvpderhf78.06 [degF]YESENIA NKANSAH-AMANKRA [facility]02-13-2025 14:01-0500 Diastolic blood stylhsts89 mm[Hg]YESENIA NKANSAH-AMANKRA [facility]02-13-2025 14:01-0500Heart rate71 /minKWABENA NKANSAH-AMANKRA [facility]02-13-2025 14:01-0500Mean blood kexxevoz00 mm[Hg]YESENIA NKANSAH-AMANKRA [facility]02-13-2025 14:01-0500 Systolic blood vensacwz839 mm[Hg]YESENIA NKANSAH-AMANKRA [facility]02-13-2025 14:01-0500Heart rate70 /minKWABENA NKANSAH-AMANKRA [facility]02-13-2025 14:01-9196ExI0% (BldA) [Mass fraction]100 %YESENIA NKANSAH-AMANKRA [facility]02-13-2025 13:58-0500 Diastolic blood bsyzkzle12 mm[Hg]YESENIA NKANSAH-AMANKRA [facility]02-13-2025 13:58-0500Mean blood codylyos44 mm[Hg]YESENIA NKANSAH-AMANKRA [facility]02-13-2025 13:58-0500 Systolic blood mm[Hg]YESENIA NKANSAH-AMANKRA [facility]02-10-2025 11:41-0500Blood Pressure LocationKSHALA WALLSAH-AMANKRA [facility]02-10-2025 11:41-0500Diastolic blood mm[Hg]YESENIA LOPEZANSAH-AMANKRA [facility]02-10-2025 11:41-0500Heart rate81 /minYESENIA WALLSAH-AMANKRA [facility]02-10-2025 11:41-0500Systolic blood mm[Hg]YESENIA WALLSAH-AMANKRA [facility] [place] 705332-11-2024 15:27-0500Body zmgrbe664.56 kgChristopher Suzanne DO Work Phone: [facility]Bmlion[facility]vx28[facility]2316 15:27-0500Diastolic blood orlsujfg04 mm[Hg]Dario Palacios DO Work Phone: [facility] CenterZxwhtqsmeg48-49-5823 15:27-0500Heart rate85 /min Dario Palacios DO Work Phone: no[facility] HospitalXtowrylqsx05-39-9613 15:27-6926WnG2% (BldA) [Mass fraction]95 %Dario Palacios DO Work Phone: noSaint [facility] HospitalIcmoplclzs06-20-8386 15:27-0500Systolic blood qdscfcok857 mm[Hg]Dario Palacios DO Work Phone: noSaint [facility] HospitalMszsqshlem41-73-6620 15:12-0500Diastolic blood apygtyje31 mm[Hg]Martin Larios MD Work Phone: [facility]12-02-2024 15:12-0500 Heart ycon129 /minMartin Larios MD Work Phone: 1([phone])040-[facility]12-02-2024 15:12-0500 SaO2% (BldA) [Mass fraction]92 %Martin Larios MD Work Phone: 1([phone])[facility] [place], [place] 9921812-02-2024 15:12-0500 Systolic blood ydcvowjv20 mm[Hg]Martin Larios MD Work Phone: 1(524)[address] [place], [place] 7936312-02-2024 14:34-0500 Body sufgfi292.5 Nahomi Larios MD Work Phone: [phone])[address] [place], [place] 7936312-02-2024 14:34-0500 Body mass index (BMI) [Ratio]48.29 kg/m2Martin Larios MD Work Phone: 1([phone])[address] [place], [place] 7936312-02-2024 14:34-0500 Body eqphmv073.75 kgMartin Larios MD Work Phone: [phone])[address] [place], [place] 7936307-17-2024 14:32-0400 Body sdqtoi627.75 cmMD Dario Olmedo Work Phone: 1(086)579-[address] [place], [place] 3834207-17-2024 14:32-0400 Body mass index (BMI) [Ratio]47.3 kg/m2MD Dario Olmedo Work Phone: [facility]07-17-2024 14:32-0400 Body dzoooj165.29 kgMD Dario Olmedo Work Phone: 1(637)461-[address] [place], [place] 3834207-17-2024 14:32-0400 Diastolic blood fgdkwezn35 mm[Hg]MD Dario Olmedo Work Phone: [facility]07-17-2024 14:32-0400 Heart rate88 /minMD Dario Olmedo Work Phone: [facility]07-17-2024 14:32-0400 SaO2% (BldA) [Mass fraction]94 %MD Dario Olmedo Work Phone: [facility]07-17-2024 14:32-0400 Systolic blood etnpevar610 mm[Hg]MD Dario Olmedo Work Phone: [facility]06-18-2024 15:05-0400 Diastolic blood lgzbgkiu65 mm[Hg][facility]06-18-2024 15:05-0400Systolic blood yiyuytxq118 mm[Hg][facility] 02-15-2024 13:59-0400Body wclxit224.5 [facility] 02-15-2024 13:59-0400Body mass index (BMI) [Ratio]49.38 kg/m2[facility]06-18-2024 13:59-0400Body zotpqipoqzo22.59 [degF][facility]06-18-2024 13:59-0400Body axorbc274.47 [facility]05-22-2024 10:15-0400[facility]-22-2024 10:15-0400Body mass index (BMI) [Ratio]48.32 kg/m2[facility]05-22-2024 10:15-0400Body ogcivv018.74 [facility]22-2024 10:15-0400Diastolic blood upejsgtf12 mm[Hg][facility]05-22-2024 10:15-0400Systolic blood fdpoplyj287 mm[Hg][facility]03-29-2024 11:04-0400Body xgvyxs941.38 [facility] 11:04-0400Body mass index (BMI) [Ratio]48.5 kg/m8KtbdevdirCrystal Clinic Orthopedic Center03-29-2024 11:04-0400Body ujolst214.37 kgC[facility]03-29-2024 11:04-0400Diastolic blood qpoarmyx51 mm[Hg][facility] 11-26-2023 11:04-0400Heart rate89 /[facility] 11-26-2023 11:04-2324RxU4% (BldA) [Mass fraction]97 %[facility]03-29-2024 11:04-0400Systolic blood ogdfozny607 mm[Hg][facility]08-18-2023 13:10-0400Body nkzedb229.38 cmAjazmín Mccall Other [employer] Other 08-18-2023 13:10-0400Body mass index (BMI) [Ratio] 48.06 kg/v0AdpwkKera Mccall Other [employer] Other 08-18-2023 13:10-0400Body ncmijzuyrud32.8 [degF]Kera Mccall Other [employer] Other 08-18-2023 13:10-0400Body xevyuy223.11 kgKera Mccall Other [employer] Other 08-18-2023 13:10-0400Respiratory rate18 /minKera Mccall Other [employer] Other 08-18-2023 13:10-6498JnD5% (BldA) [Mass fraction]96 % Kera Mccall Other [employer] Other 06-06-2023 10:00-0400Body bhbywy783.38 cmClive Marino Other [employer] Other 06-06-2023 10:00-0400Body mass index (BMI) [Ratio] 48.06 kg/b3HygdpsClive Marino Other [employer] Other 06-06-2023 10:00-0400Body hqteor007.11 kgClive Marino Other [employer] Other 06-06-2023 10:00-0400Diastolic blood navtrbfs34 mm[Hg] Clive Onealdiff Other [employer] Other 06-06-2023 10:00-0400Respiratory rate18 /minDroosevelt Onealdiff Other [employer] Other 06-06-2023 10:00-2789JrC2% (BldA) [Mass fraction]98 % Clive Onealdiff Other [employer] Other 06-06-2023 10:00-0400Systolic blood frcyhvmb51 mm[Hg] Clive Onealdiff Other [employer] Other 04-26-2023 15:00-0400Body .38 cmChristopher Honorio Other [employer] Other 04-26-2023 15:00-0400Body mass index (BMI) [Ratio] 48.03 kg/n4Qdudwvvwnkf Honorio Other [employer] Other 04-26-2023 15:00-0400Body jltaeh382.02 kgChristopher Honorio Other [employer] Other 04-26-2023 15:00-0400Diastolic blood lmirmgxp27 mm[Hg] Christopher Honorio Other [employer] Other 04-26-2023 15:00-9566IhV4% (BldA) [Mass fraction]100 % Dario Olmedo Other [employer] Other 04-26-2023 15:00-0400Systolic blood jlornjkr805 mm[Hg] Dario Olmedo Other [employer] Other 04-17-2023 10:30-0400Body urvkqn828.38 cmHeather Missler Other [employer] Other 04-17-2023 10:30-0400Body mass index (BMI) [Ratio] 48.04 kg/k0Qcrzqdy Missler Other [employer] Other 04-17-2023 10:30-0400Body qibtfw670.06 kgHeather Missler Other [employer] Other 04-17-2023 10:30-0400Diastolic blood vcgyckez58 mm[Hg] Danya Missler Other [employer] Other 04-17-2023 10:30-0400Respiratory rate18 /minHeather Missler Other [employer] Other 04-17-2023 10:30-9589YdL7% (BldA) [Mass fraction]97 % Danya Missler Other [employer] Other 04-17-2023 10:30-0400Systolic blood facwvmdo536 mm[Hg] Danya Missler Other [employer] Other 04-04-2023 14:00-0400Body vawerc526.38 cmDawn Fitt Other [employer] Other 04-04-2023 14:00-0400Body mass index (BMI) [Ratio] 46.96 kg/m2Dawn Fitt Other [employer] Other 04-04-2023 14:00-0400Body .3 kgDawn Fitt Other [employer] Other 03-11-2023 11:00-0500Body .38 cmStepdavid Ingram Other [employer] Other 03-11-2023 11:00-0500Body mass index (BMI) [Ratio] 46.17 kg/j0Xhowwrbpskelly Ingram Other [employer] Other 03-11-2023 11:00-0500Body kktpae590.3 kgStkelly Ingram Other [employer] Other 03-11-2023 11:00-0500Diastolic blood whemtuqh61 mm[Hg] Ellie Ingram Other [employer] Other 03-11-2023 11:00-0500Respiratory rate18 /minSmello Ingram Other [employer] Other 03-11-2023 11:00-4218TlE9% (BldA) [Mass fraction]99 % Ellie Ingram Other [employer] Other 03-11-2023 11:00-0500Systolic blood alnymuds132 mm[Hg] Ellie Ingram Other [employer] Other 03-07-2023 14:00-0500Body qavuup303.38 cmPamelgloria Ellis Other [employer] Other 03-07-2023 14:00-0500Body mass index (BMI) [Ratio] 46.74 kg/c9TujzwcSusana Ellis Other [employer] Other 03-07-2023 14:00-0500Body izkomdtdcoi24.8 [degF]Susana Rhonda Other [employer] Other 03-07-2023 14:00-0500Body rfapob298.75 kgPajazzmine Ellis Other [employer] Other 03-07-2023 14:00-0500Diastolic blood mm[Hg] Susana Rhonda Other [employer] Other 03-07-2023 14:00-0500Respiratory rate8 /minSusana Rhonda Other [employer] Other 03-07-2023 14:00-9858AdO7% (BldA) [Mass fraction]98 % Susana Rhonda Other [employer] Other 03-07-2023 14:00-0500Systolic blood xthjhmow643 mm[Hg] Susana Rhonda Other [employer] Other 03-03-2023 11:15-0500Body qydtho222.38 cmHeather Missler Other [employer] Other 03-03-2023 11:15-0500Body mass index (BMI) [Ratio] 46.76 kg/a3Esutpip Missler Other [employer] Other 03-03-2023 11:15-0500Body aqvthc450.8 kgHeather Missler Other [employer] Other 03-03-2023 11:15-0500Diastolic blood doqokwde28 mm[Hg] Danya Missler Other [employer] Other 03-03-2023 11:15-0500Respiratory rate18 /minHeather Missler Other [employer] Other 03-03-2023 11:15-7342DiI9% (BldA) [Mass fraction]99 % Danya Missler Other [employer] Other 03-03-2023 11:15-0500Systolic blood mujhwymj974 mm[Hg] Danya Missler Other [employer] Other 03-02-2023 11:00-0500Body fydoai792.38 Bipin Ingram Other [employer] Other 03-02-2023 11:00-0500Body mass index (BMI) [Ratio] 46.46 kg/j3NclxiaieyEllie Ingram Other [employer] Other 03-02-2023 11:00-0500Body .8 [degF] Ellie Ingram Other [employer] Other 03-02-2023 11:00-0500Body ioudss796.03 kgStkelly Ingram Other [employer] Other 03-02-2023 11:00-0500Diastolic blood axaqosmd82 mm[Hg] Ellie Ingram Other [employer] Other 03-02-2023 11:00-0500Respiratory rate18 /minSmello Ingram Other [employer] Other 03-02-2023 11:00-0692LxC2% (BldA) [Mass fraction]98 % Ellie Ingram Other [employer] Other 03-02-2023 11:00-0500Systolic blood vhrimixy913 mm[Hg] Ellie Ingram Other [employer] Other 02-09-2023 20:24-0500Diastolic blood kifouylk82 mm[Hg] [facility]02-09-2023 20:24-0500Heart rate96 /[facility]02-09-2023 20:24-0500Respiratory rate18 /[facility]02-09-2023 20:24-0901OsS4% (BldA) [Mass fraction]98 % [facility]02-09-2023 20:24-0500Systolic blood lxqzxpuh273 mm[Hg][facility]02-09-2023 16:01-0500Body ijuctb574.48 cm [facility]02-09-2023 16:01-0500Body sccbqlvohki31.1 [degF][facility]02-09-2023 16:01-0500Body mbsovb565 kg [facility]02-07-2023 12:15-0500Body cyuslx626.38 cmDawn Fitt Other [employer] Other 02-02-2023 11:00-0500Body hwvzis545.38 cmSmello Binghamault Other [employer] Other 02-02-2023 11:00-0500Body mass index (BMI) [Ratio] 45.71 kg/q4Lcovuoald Juan Jose Other [employer] Other 02-02-2023 11:00-0500Body lcjxocnjtab63.3 [degF] Ellie Ingram Other [employer] Other 02-02-2023 11:00-0500Body lzramc541.12 kgStkelly Ingram Other [employer] Other 02-02-2023 11:00-0500Respiratory rate18 /minSmello Ingram Other [employer] Other 02-02-2023 11:00-2522SuJ6% (BldA) [Mass fraction]99 % Ellie Ingram Other [employer] Other 02-01-2023 08:30-0500Body fdoipt686.38 cmHeather ler Other [employer] Other 02-01-2023 08:30-0500Body mass index (BMI) [Ratio] 45.72 kg/y1Knibwar Missler Other [employer] Other 02-01-2023 08:30-0500Body jaamvq354.17 kgHeather Missler Other [employer] Other 02-01-2023 08:30-0500Diastolic blood tmkyhcij60 mm[Hg] Danya Missler Other [employer] Other 02-01-2023 08:30-0500Respiratory rate18 /minHeather Missler Other [employer] Other 02-01-2023 08:30-3410WlO7% (BldA) [Mass fraction]98 % Danya Missler Other [employer] Other 02-01-2023 08:30-0500Systolic blood fupegwzy982 mm[Hg] Danya Missler Other [employer] Other 01-22-2023 11:15-0500Body vgywjl751.56 cmPamela Rhonda Other [employer] Other 01-22-2023 11:15-0500Body mass index (BMI) [Ratio] 43.59 kg/v4Dvpwao Rhonda Other [employer] Other 01-22-2023 11:15-0500Body adfhhuwwvly64.7 [degF]Susana Rhonda Other [employer] Other 01-22-2023 11:15-0500Body okmblg813.21 kgPamelgloria Rhonda Other [employer] Other 01-22-2023 11:15-0500Diastolic blood zachheiy18 mm[Hg] Susana Rhonda Other [employer] Other 01-22-2023 11:15-0500Respiratory rate18 /minPaanyagloria ArrietaRhonda Other [employer] Other 01-22-2023 11:15-7265EvY0% (BldA) [Mass fraction]98 % Susana Ellis Other [employer] Other 01-22-2023 11:15-0500Systolic blood muobcddv709 mm[Hg] Susana Ellis Other [employer] Other 01-16-2023 18:00-0500Body poqpyq537.56 cmSmello Ingram Other [employer] Other 01-16-2023 18:00-0500Body mass index (BMI) [Ratio] 43.59 kg/w2Yrmswclyskelly Ingram Other [employer] Other 01-16-2023 18:00-0500Body eyztzdhvmji95.1 [degF] Ellie Ingram Other [employer] Other 01-16-2023 18:00-0500Body .21 kgStkelly Ingram Other [employer] Other 01-16-2023 18:00-0500Diastolic blood jhrytaqm54 mm[Hg] Ellie Ingram Other [employer] Other 01-16-2023 18:00-0500Respiratory rate18 /minSmello Ingram Other [employer] Other 01-16-2023 18:00-6881VpO4% (BldA) [Mass fraction]100 % Ellie Ingram Other [employer] Other [id number] 18:00-0500Systolic blood dkenzrrb374 mm[Hg] Ellie Juan Jose Other [employer] Other [id number] 20:30-0500Diastolic blood qeabewow02 mm[Hg] [facility]01-12-2023 20:30-0500Heart rate95 /[facility]01-12-2023 20:30-0500Respiratory rate18 /[facility]01-12-2023 20:30-2212SrI9% (BldA) [Mass fraction]99 % [facility]01-12-2023 20:30-0500Systolic blood aysbmjao827 mm[Hg][facility]01-12-2023 15:46-0500Body .1 cm [facility]01-12-2023 15:46-0500Body ygogmfmvlpi06 [degF] [facility]01-12-2023 15:46-0500Body isekhy179.85 kg [facility]01-12-2023 15:00-0500Body jxtqaa254.56 cm Ellie Ingram Other [employer] Other 01-12-2023 15:00-0500Body mass index (BMI) [Ratio] 43.94 kg/h9GcnsdkitqEllie Ingram Other [employer] Other 01-12-2023 15:00-0500Body uxudqayfdsi65.2 [degF] Ellie Ingram Other [employer] Other 01-12-2023 15:00-0500Body .12 kgStkelly Ingram Other [employer] Other 01-12-2023 15:00-6130LmL5% (BldA) [Mass fraction]98 % Elliedavid Ingram Other [employer] Other 12-29-2022 15:00-0500Body mbduqo204.56 cmSsandrodavid Ingram Other [employer] Other 12-29-2022 15:00-0500Body mass index (BMI) [Ratio] 43.59 kg/w5Svmjavrmodavid Ingram Other [employer] Other 12-29-2022 15:00-0500Body myfocwwmxwz66.8 [degF] Ellie Ingram Other [employer] Other 12-29-2022 15:00-0500Body iptctg786.21 kgStignaciodavid Ingram Other [employer] Other 12-29-2022 15:00-0500Diastolic blood sigaftvt16 mm[Hg] Ellie Ingram Other [employer] Other 12-29-2022 15:00-0500Respiratory rate18 /minSmello Ingram Other [employer] Other 12-29-2022 15:00-1401LkU4% (BldA) [Mass fraction]99 % Ellie Ingram Other [employer] Other 12-29-2022 15:00-0500Systolic blood mirbjdib973 mm[Hg] Ellie Ingram Other [employer] Other 12-01-2022 12:00-0500Body oabwvc698.56 cmSsandrodavid Ingram Other [employer] Other 12-01-2022 12:00-0500Body mass index (BMI) [Ratio] 43.25 kg/n3Tpxlmohdddvaid Ingram Other [employer] Other 12-01-2022 12:00-0500Body soelkbbyaff04.6 [degF] Ellie Ingram Other [employer] Other 12-01-2022 12:00-0500Body dsgxdi034.31 kgStkelly Ingram Other [employer] Other 12-01-2022 12:00-0500Diastolic blood dylyohky51 mm[Hg] Ellie Ingram Other [employer] Other 12-01-2022 12:00-0500Respiratory rate18 /minSmello Ingram Other [employer] Other 12-01-2022 12:00-6841KjD4% (BldA) [Mass fraction]100 % Ellie Ingram Other [employer] Other 12-01-2022 12:00-0500Systolic blood cjshycug181 mm[Hg] Ellie Ingram Other [employer] Other 11-21-2022 12:05-0500Body zopsku304.56 cmSmello Ingram Other [employer] Other 11-21-2022 12:05-0500Body mass index (BMI) [Ratio] 42.56 kg/c0Osxtpgbomdavid Ingram Other [employer] Other 11-21-2022 12:05-0500Body tyiphrudjvg58.8 [degF] Elliedavid Ingram Other [employer] Other 11-21-2022 12:05-0500Body .49 kgStignaciodavid Ingram Other [employer] Other 11-21-2022 12:05-0500Diastolic blood xhexkqub58 mm[Hg] Elliedavid Ingram Other [employer] Other 11-21-2022 12:05-0500Respiratory rate18 /minSmello Ingram Other [employer] Other 11-21-2022 12:05-6957SvR2% (BldA) [Mass fraction]99 % Ellie Ingram Other [employer] Other 11-21-2022 12:05-0500Systolic blood hjkigrwv585 mm[Hg] Ellie Ingram Other [employer] Other 11-03-2022 12:30-0400Body jbdunt703.56 cmStepdavid Ingram Other [employer] Other 11-03-2022 12:30-0400Body mass index (BMI) [Ratio] 42.56 kg/l9Kvrpmdzhwkelly Ingram Other [employer] Other 11-03-2022 12:30-0400Body rfyuivcasdf49 [degF] Ellie Ingram Other [employer] Other 11-03-2022 12:30-0400Body fneibp915.49 kgStkelly Ingram Other [employer] Other 11-03-2022 12:30-0400Diastolic blood ummldsdc73 mm[Hg] Ellie Ingram Other [employer] Other 11-03-2022 12:30-0400Respiratory rate18 /minSmello Ingram Other [employer] Other 11-03-2022 12:30-1396CkI8% (BldA) [Mass fraction]100 % Ellie Ingram Other [employer] Other 11-03-2022 12:30-0400Systolic blood rmeiytjn268 mm[Hg] Ellie Ingram Other [employer] Other 10-31-2022 11:15-0400Body orinkg636.56 cmThomas Felter Other [employer] Other 10-31-2022 11:15-0400Body mass index (BMI) [Ratio] 41.19 kg/s5Ubnkig Felter Other [employer] Other 10-31-2022 11:15-0400Body jkaqws594.86 kgThomas Felter Other [employer] Other 10-27-2022 17:30-0400Body camouk826.56 cmStephanie Juan Jose Other [employer] Other 10-27-2022 17:30-0400Body mass index (BMI) [Ratio] 41.19 kg/u3Tfntngpci Juan Jose Other [employer] Other 10-27-2022 17:30-0400Body dkdsoiszyoc89.7 [degF] Ellie Juan Jose Other [employer] Other 10-27-2022 17:30-0400Body .86 kgStkelly Juan Jose Other [employer] Other 10-27-2022 17:30-0400Diastolic blood mdtudvlp95 mm[Hg] Ellie Juan Jose Other [employer] Other 10-27-2022 17:30-0400Respiratory rate18 /minSsandrodeminancy Juan Jose Other [employer] Other 10-27-2022 17:30-5161OyB9% (BldA) [Mass fraction]99 % Ellie Juan Jose Other [employer] Other 10-27-2022 17:30-0400Systolic blood wjdytjaj396 mm[Hg] Ellie Juan Jose Other [employer] Other 09-26-2022 18:00-0400Body alcoxk633.56 cmSmello Juan Jose Other [employer] Other 09-26-2022 18:00-0400Body mass index (BMI) [Ratio] 42.84 kg/a3Fjecqdfwrdavid Ingram Other [employer] Other 09-26-2022 18:00-0400Body sxexuiyetpb74.9 [degF] Ellie Juan Jose Other [employer] Other 09-26-2022 18:00-0400Body zsycyx487.22 kgStignaciodeminancy Juan Jose Other [employer] Other 09-26-2022 18:00-0400Diastolic blood htupjnpp20 mm[Hg] Elliedavid Ingram Other [employer] Other 09-26-2022 18:00-0400Respiratory rate18 /minSmello Ingram Other [employer] Other 09-26-2022 18:00-2409BvO5% (BldA) [Mass fraction]98 % Elliedavid Ingram Other [employer] Other 09-26-2022 18:00-0400Systolic blood ftbtrgev458 mm[Hg] Elliedavid Ingram Other [employer] Other 09-22-2022 12:30-0400Body nmykjt437.56 cmSsandrodavid Ingram Other [employer] Other 09-22-2022 12:30-0400Body mass index (BMI) [Ratio] 43.29 kg/b1Lrdgiekwcdavid Ingram Other [employer] Other 09-22-2022 12:30-0400Body okuworjdoyy90 [degF] Ellie Ingram Other [employer] Other 09-22-2022 12:30-0400Body gvoksl244.4 kgStignaciodeminancy Juan Jose Other [employer] Other 09-22-2022 12:30-0400Diastolic blood ksnigsyl28 mm[Hg] Ellie Juan Jose Other [employer] Other 09-22-2022 12:30-0400Respiratory rate18 /minSsandrodavid Ingram Other [employer] Other 09-22-2022 12:30-1427MyK2% (BldA) [Mass fraction]100 % Ellie Ingram Other [employer] Other 09-22-2022 12:30-0400Systolic blood aawdwbat204 mm[Hg] Ellie Juan Jose Other [employer] Other 08-29-2022 12:30-0400Body fbxumz714.56 cmSsandrodavid Ingram Other [employer] Other 08-29-2022 12:30-0400Body mass index (BMI) [Ratio] 43.59 kg/a9Yujvfbgpmdavid Ingram Other [employer] Other 08-29-2022 12:30-0400Body ujpkotvgeoh50.6 [degF] Ellie Ingram Other [employer] Other 08-29-2022 12:30-0400Body actiei349.21 kgStignaciodavid Ingram Other [employer] Other 08-29-2022 12:30-0400Diastolic blood mm[Hg] Ellie Juan Jose Other [employer] Other 08-29-2022 12:30-0400Respiratory rate18 /minSsandrodavid Ingram Other [employer] Other 08-29-2022 12:30-9627VwT9% (BldA) [Mass fraction]98 % Elliedavid Ingram Other [employer] Other 08-29-2022 12:30-0400Systolic blood mshgybbb489 mm[Hg] Elliedavid Ingram Other [employer] Other 08-08-2022 11:00-0400Body .56 cmSsandrodavid Ingram Other [employer] Other 08-08-2022 11:00-0400Body mass index (BMI) [Ratio] 43.63 kg/j2Ycjrfebfsdavid Ingram Other [employer] Other 08-08-2022 11:00-0400Body ijxfkqavfdc61.5 [degF] Ellie Ingram Other [employer] Other 08-08-2022 11:00-0400Body .31 kgStignaciodavid Ingram Other [employer] Other 08-08-2022 11:00-0400Diastolic blood oclxipdx31 mm[Hg] Ellie Ingram Other [employer] Other 08-08-2022 11:00-0400Respiratory rate18 /minSmello Juan Jose Other [employer] Other 08-08-2022 11:00-7156LxS6% (BldA) [Mass fraction]98 % Ellie Juan Jose Other [employer] Other 08-08-2022 11:00-0400Systolic blood nroysyjk190 mm[Hg] Ellie Juan Jose Other [employer] Other 07-05-2022 12:05-0400Body vpapdc782.56 cmSmello Juan Jose Other [employer] Other 07-05-2022 12:05-0400Body mass index (BMI) [Ratio] 41.19 kg/p1Fgtraljqf Juan Jose Other [employer] Other 07-05-2022 12:05-0400Body ksezedzpeai73 [degF] Ellie Juan Jose Other [employer] Other 07-05-2022 12:05-0400Body owbrdd392.86 kgStkelly Juan Jose Other [employer] Other 07-05-2022 12:05-0400Diastolic blood woptlkjr85 mm[Hg] Ellie Juan Jose Other [employer] Other 07-05-2022 12:05-0400Respiratory rate18 /minSirmanancy Ingram Other [employer] Other 07-05-2022 12:05-1343SiV3% (BldA) [Mass fraction]100 % Ellie Juan Jose Other [facility] Other 07-05-2022 12:05-0400Systolic blood vocbqdvz137 mm[Hg] Ellie Juan Jose Other [facility] Other 03-17-2022 16:45-0400Body .56 cmThomas Felter Other [facility] Other 03-17-2022 16:45-0400Body mass index (BMI) [Ratio] 42.91 kg/l8Wowgai Felter Other [employer] Other 03-17-2022 16:45-0400Body ahpuuc754.4 kgThomas Felter Other [employer] Other 03-10-2022 14:20-0500Body .56 cmStepdavid Ingram Other [facility] Other 03-10-2022 14:20-0500Body mass index (BMI) [Ratio] 43.08 kg/c4Ivgtaigpckelly Ingram Other [facility] Other 03-10-2022 14:20-0500Body jqtyyixjlhj53.7 [degF] Ellie Ingram Other [facility] Other 03-10-2022 14:20-0500Body oykznc909.85 kgStignaciodavid Ingram Other [facility] Other 03-10-2022 14:20-0500Diastolic blood faenwgmm28 mm[Hg] Ellie Ingram Other [facility] Other 03-10-2022 14:20-0500Respiratory rate18 /minSmello Binghamault Other [employer] Other 03-10-2022 14:20-4857EcQ2% (BldA) [Mass fraction]99 % Ellie Binghamault Other [employer] Other 03-10-2022 14:20-0500Systolic blood nqjoxnhr070 mm[Hg] Ellie Binghamault Other [employer] Other 01-31-2022 09:15-0500Body .56 cmThomas Felter [facility] Other 12-13-2021 16:30-0500Body xlndir203.56 cmMattsiobhan Singh Other [employer] Other 12-13-2021 16:30-0500Body mass index (BMI) [Ratio] 43.08 kg/j2Zungebssiobhan Singh Other [employer] Other 12-13-2021 16:30-0500Body zagsdc064.85 kgMatthevik Singh Other [employer] Other 12-13-2021 16:30-0500Diastolic blood difnshsm00 mm[Hg] Edie Singh Other [employer] Other 12-13-2021 16:30-0500Respiratory rate18 /minMabowen Singh Other [employer] Other 12-13-2021 16:30-7816QqW6% (BldA) [Mass fraction]99 % Edie Singh Other [employer] Other 12-13-2021 16:30-0500Systolic blood mm[Hg] Edie Singh Other [employer] Other 10-14-2021 15:45-0400Body .56 cmMattsiobhan Singh Other [employer] Other 10-14-2021 15:45-0400Body mass index (BMI) [Ratio] 42.84 kg/a6Dkhqknisiobhan Singh Other [employer] Other 10-14-2021 15:45-0400Body xewpnecafqw63.1 [degF] Edie Singh Other [employer] Other 10-14-2021 15:45-0400Body ldxeub012.22 kgMattsiobhan Singh Other [employer] Other 10-14-2021 15:45-0400Diastolic blood vcofqikn82 mm[Hg] Edie Singh Other [employer] Other 10-14-2021 15:45-0400Respiratory rate18 /minMattsiobhan Singh Other [employer] Other 10-14-2021 15:45-8177ZtJ2% (BldA) [Mass fraction]99 % Edie Singh Other [employer] Other 10-14-2021 15:45-0400Systolic blood rbehqxab211 mm[Hg] Edie Singh Other [employer] Other Encounters Encounter DateEncounter TypeCare ProviderFacilityStart: 06-06-2025 End: 68-43-3272Okfwqq outpatient visit 15 minutes[facility] - CyldeComment on above:Postmenopausal bleeding (Primary Dx); Flu vaccine need; Encounter for screening mammogram for malignant neoplasm of breast; Amenorrhea; Vasomotor symptoms due to menopause; Perimenopausal vasomotor symptomsStart: 06-06-2025 End: 88-79-8937lbhyurigjnNEXMGVMHLNuvance Health Ambulatory [facility] Start: 05-31-2025 End: 21-10-7021kbhqckfyvzBIOSSPZ RUSHERNot AvailableStart: 05-31-2025 End: 57-06-9551dvbljedxpnQLGB D [facility] Start: 05-31-2025 End: 48-53-7490Wpntho outpatient visit 10 minutesMartin Larios MD Work Phone: [facility] BuildingComment on above: Postural dizziness with near syncopeStart: 05-30-2025 End: 07-43-1499Zanylbjbb Sharif Celestin THREAD WEAVER Work Phone: noms [facility] MedinceStart: 05-28-2025 End: 55-49-1551kwvcjkfgkzSRVUI [facility] Start: 05-22-2025 End: 34-67-7953Itohih outpatient visit 25 minutesAnamika Celestin THREAD WEAVER Work Phone: noms [facility] MedinceComment on above:Intractable migraine with aura with status migrainosus (Primary Dx); Elevated LDL cholesterol levelStart: 05-22-2025 End: 21-07-1587uhgxpawrfuLZBVSGSahara Barajas AvailableStart: 05-08-2025 End: 44-80-0751Katugd flowsheetSdhaval Celestin THREAD WEAVER Work Phone: noms Raf[facility] Arora MedinceStart: 05-08-2025 End: 93-80-5871Dzgrvw Meet Celestin NP Work Phone: noms [facility] Arora MedinceStart: 05-08-2025 End: 93-33-3973Dyxgsb outpatient new 30 minutesAnamika Celestin NP Work Phone: noms [facility] Arora MedinceComment on above:Primary insomnia (Primary Dx); Lipid screening; Primary hypertension ; Acquired hypothyroidism ; Other depression ; Stage 1 chronic kidney disease; Primary osteoarthritis involving multiple joints; Weight gain; Pain; Pain in other joint; Acute non-recurrent frontal sinusitis; Morbid (severe) obesity due to excess calories ([facility]); Obesity, class 3; Body mass index (BMI) 45.0-49.9, adult ([facility]); Major depressive disorder, single episode, in full remissionStart: 05-08-2025 End: 45-65-3579yqlrlcweccZHLMVE M SHIVELYNot AvailableStart: 05-02-2025 End: 81-76-5320kvqmqjabdpKVDAQRE S RUSHERNot AvailableStart: 05-02-2025 End: 97-67-2499Ntijrg outpatient visit 15 minutesAnthony S Rusher DPM Work Phone: noMS [place] PodiatryComment on above:Plantar wart (Primary Dx)Start: 05-02-2025 End: 64-96-3440Yjbkir flowsheetAnthony S Rusher DPM Work Phone: NOMS [place] PodiatryStart: 05-02-2025 End: 59-20-3164Xxuhyv flowsheetAnthony S Rusher DPM Work Phone: noMS [place] PodiatryStart: 04-04-2025 End: 43-78-7475Rcffcplfb encounterAnthony S Rusher DPM Work Phone: NOMS [place] PodiatryStart: 03-28-2025 End: 53-23-8203tysrftqyolNXHAZKR S RUSHERNot AvailableStart: 03-28-2025 End: 80-55-6274Ibuxcw outpatient new 45 minutesAnthony S Rusher DPM Work Phone: [facility] PodiatryComment on above:Onychomycosis (Primary Dx); Right foot pain; Plantar wart; Left foot painStart: 03-28-2025 End: 59-58-5944Abgfzc flowsheetAnthony S Rusher DPM Work Phone: [facility] PodiatryStart: 03-28-2025 End: 61-78-8239Pvyute flowsheetAnthony S Rusher DPM Work Phone: [facility] PodiatryStart: 01-16-2025 End: 43-56-7818qqgqbgeapvJIPKUSLAkua YUSUFFacility:FTMCStart: 01-16-2025 End: 31-01-1459Jtyunwl encounter procedureYESENIA YUSUF [facility] Start: 11-30-2024 End: 23-03-3052Ococfu outpatient visit 15 Harry Larios MD Work Phone: [facility] Office BuildingComment on above: Postural dizziness with near syncopeStart: 11-30-2024 End: 16-63-4171cjiuqceveeOVDS D [facility] Start: 11-16-2024 End: 90-50-0563Etguzqqjlz hospital visit by physicianSam Exam [address] [place], [place] [address]Comment on above:Postural dizziness with near syncopeStart: 11-16-2024 End: 09-87-6665vyrzqkxpdqJFAY D [facility] Southtart: 11-14-2024 End: 89-95-2487lelkyauhdwYVHUZZZAkua YUSUFFacility:EU [place]walkStart: 11-02-2024 End: 99-44-0320wolydxpdrwZSAJTNRCullen YUSUFFacility:FTMCStart: 10-19-2024 End: 37-63-7762Tjjeomtqi to same day surgery [facility] Start: 10-19-2024 End: 75-02-3438zfaoatkpehVGL ELLIE Kwan BREAULTFacility:FTMCStart: 10-12-2024 End: 93-66-0357nshjuykxnxLFWDCCZNU BREAULTFacility:FTMCStart: 10-12-2024 End: 02-57-7526Julvguq encounter procedureEASTERN PLUMAS DISTRICT HOSPITALLUISITO YUSUF [facility] Start: 10-09-2024 End: 14-67-2625lqtjsqmeegLICPYZIYJ BREAULTFacility:EU [place]walkStart: 10-09-2024 End: 83-11-4687Vmjoman encounter procedureSHALA YUSUF [facility] Start: 94-69-7309kdwsgyvyfqHJUUSLPXJ BREAULTFacility:EU [place]uskyStart: 10-04-2024 End: 50-60-7576Uou-admission assessmentObdulio Matamroos [facility] Start: 08-09-2024 End: 72-55-6900Nhocrd outpatient visit 25 minutesChristopher Suzanne DO Work Phone: noms [place] STATE ROUTEComment on above:Lumbar radiculopathy (Primary Dx); PolypharmacyStart: 08-09-2024 End: 19-59-3073aivvlwxzicJDQTXFUIKWV HASSETTNot AvailableStart: 08-09-2024 End: 76-23-2996Ebohsw flowsheetChristopher Suzanne DO Work Phone: noms [place] [facility] R[facility]TEStart: 08-09-2024 End: 72-82-7120Cfqzvs flowsheetChristopher Suzanne DO Work Phone: NOMS [facility] ROUTEStart: 07-31-2024 End: 15-08-3164Pibhbw outpatient new 45 minutesMartin Larios MD Work Phone: [facility] RockiesComment on above:Postural dizziness with near syncope (Primary Dx); Abnormal EKGStart: 07-31-2024 End: 25-03-5057hooqkphyosDIVH D [facility] Start: 06-22-2024 End: 71-13-2359znzbgrttugKRAGQBLWW BREFANIFacility:FTMCStart: 05-03-2024 End: 26-39-2881ntwizzlwceMBF STEPHANIE J BREFANIFacility:FTMCStart: 03-15-2024 End: 17-06-2327nwlzpsuaxeQYYGerman [facility] Work Phone: Start: 03-15-2024 End: 29-46-4940Flstjch encounter procedureMD Dario Olmedo Work Phone: [facility] Physician [facility] Sleep Lab Work Phone: Start: 02-15-2024 End: 60-61-3162mhyvobfgsjQVEJJEMUGLos [facility] Medical Centertart: 02-15-2024 End: 45-06-1314Reksvnrixm hospital visit by Leoncio Walker MD Work Phone: [place] Pain ProceduresComment on above:Lumbosacral spondylosis without myelopathy (Primary Dx)Start: 02-15-2024 End: 12-45-8292otpzmmgkjuFNBCYT MATHMelissa Memorial Hospitaltart: 02-01-2024 End: 91-02-3058gtysvdguzyYRGEAHGIN [facility] Systemtart: 01-20-2024 End: 61-68-5041ozjojxlpgeMRFEPJGJM BREAULTFacility:FTMCStart: 01-19-2024 End: 60-80-1301Beoieyj encounter procedureSouth[facility] Start: 01-19-2024 End: 95-67-8304Ifpctkjo preventive med est patient 40-64yrsPh[facility] Md Ophthalmologist [facility] Women's Services - CyldeComment on above:Well woman exam with routine gynecological exam (Primary Dx); Encounter for screening mammogram for malignant neoplasm of breast; Standardized adult depression screening tool completed; Skin lesion of right legStart: 01-02-2024 End: 09-23-6923GzwcwfIteg M Franco OFFAL ROLLER-INVENTORY CONTROL/SHIPPING RECEIVING Work Phone: [facility] Women's Services - CyldeComment on above: Encounter for initial prescription of contraceptive pillsStart: 53-94-8307Lux- patient / Non-visitMD Dario Olmedo Work Phone: [facility] Physician Group-[facility] Pulmonary Disease Work Phone: Start: 12-28-2023 End: 19-85-6356ckjilrmuuhCnuavcykkeq E AvendanoFacility:[facility] Hospitaltart: 12-28-2023 End: 61-71-3543zwptufabliKBUMercy Memorial Hospital Ctr Work Phone: Start: 12-28-2023 End: 05-66-9810Sbadzoc encounter procedureMD Jerryclemente Honorio Work Phone: [facility]-Sleep Lab Work Phone: Start: 18-93-9434xdwbxaifkxZMNGCD [facility] Centertart: 12-15-2023 End: 15-39-1314RpogzbDhxk M Franco OFFAL ROLLER-INVENTORY CONTROL/SHIPPING RECEIVING Work Phone: [facility] Women's Services - CyldeComment on above: Encounter for initial prescription of contraceptive pillsStart: 11-26-2023 End: 46-38-1520oqfqzxqzciUuqcqneicTriHealth [facility] Work Phone: Start: 11-26-2023 End: 39-81-6284Tobodzy encounter procedureFirdickenson community hospital Physician Group-[facility] Sleep Lab Work Phone: Start: 11-23-2023 End: 73-80-0232kurqwdyxwuWEOLJUHOK BREFANIFacility:FTMCStart: 11-09-2023 End: 52-72-1812gnibtyhgceXJRUZRFHT BREAULTFacility:FTMCStart: 10-25-2023 End: 05-02-2343dvpmgaxjaoGQIDCCDYU BREAULTFacility:FTMCStart: 10-21-2023 End: 33-32-7182jnwtnmupmsIUCTGDYHE BREAULTFacility:FTMCStart: 00-25-2576Xmy- patient / Non-visitMD Dario Olmedo Work Phone: [facility] GroupSelect [facility] Work Phone: Start: 10-12-2023 End: 20-69-4324ubdgogebnqEVPZLKNNM JUAN JOSEFacility:FTMCStart: 06-18-2023 End: 19-28-7788mlfzwppcgyBowwydwfyss M HassettFacility:[facility] Hospitaltart: 06-18-2023 End: 61-07-2052bmehtdseqwBLR-C [facility] Work Phone: Start: 06-18-2023 End: 08-85-7571Qdreojm encounter procedureFNP-C [facility]-MRI [place] Work Phone: Start: 04-16-2023 End: 16-91-6280hmjcxqtoawKmycv Keller Other [employer] Other Start: 71-99-1322Azodgg outpatient visit 25 minutes K[facility] ClydeStart: 02-24-2023 End: 93-17-9391pnzxnznwzjHrrhmaweaqk E AvendanoFacility:[facility] Hospitaltart: 02-24-2023 End: 10-15-9119jzrjkbleqpULP-C Ellie Binghamault Work Phone: [facility] Work Phone: Start: 02-24-2023 End: 13-22-3041Mcakmsv encounter procedureFNP-C Ellie Ingram Work Phone: [facility] Ctr-Sleep Lab Work Phone: Start: 85-69-9453Fxhvcv-up encounterDonkate [facility] Coordinated Care ClinicStart: 75-59-3224Tlwwdzgzi encounterDonkate [facility] Care ClinicStart: 02-02-2023 End: 39-06-5717ipbfznpsdwEbfookpfj Bre[employer] Other Start: 89-29-3531Kadrplsdct RecurringFNP-C Ellie Binghamault Work Phone: [facility] Ctr-Weight Management Work Phone: Start: 24-42-8374Ooysxd outpatient new 30 minutes MohitWellstar [facility]tr SouthStart: 12-23-2022 End: 28-18-4336rqmaouxiorTKF-C Ellie Ingram Work Phone: [facility] Work Phone: Start: 12-23-2022 End: 74-57-0669Vezaxmh encounter procedureFNP-C Ellie Binghamault Work Phone: [facility]-Sleep Lab Work Phone: Start: 12-16-2022 End: 85-11-0738imvdrfmcveBsmh Fitt Other [employer] Other Start: 94-83-7764FEP for Obesity subQ 15 min (Max charge 2 units)Serene RooneyPrairie Ridge Health Care ClinicStart: 12-16-2022 Registered RecurringFNP-C Ellie Binghamault Work Phone: [facility]-Weight Management Work Phone: Start: 12-14-2022([facility]) Weight Management f/u Danya MachelleAtrium Health [facility] Coordinated Care ClinicStart: 12-14-2022 End: 93-49-1139dfeoojuwyeOgxnkyz Missler Other [employer] Other Start: 00-12-6829Fyrfsnjdh encounterHeather [facility] Coordinated Care ClinicStart: 12-01-2022([facility] WMNI) WMN Initial ProviderDawn FittFharborview medical center Coordinated Care ClinicStart: 12-01-2022 End: 35-77-6544qdblinwiirFuen Fitt Other [employer] Other Start: 43-01-5569Qkvvuu outpatient visit 15 minutes Ellie IngramFPG [facility] Care ClydeStart: 11-07-2022 End: 75-17-1938jwaprdopjdPWA [facility] Work Phone: Start: 11-07-2022 End: 64-21-4024Wdqinrr encounter procedureWayne Healthcare [facility] Rafi Work Phone: Start: 11-03-2022 End: 46-36-8324Hquqmcd encounter procedureSumma Health [facility] Rafi Work Phone: Start: 11-03-2022 End: 32-66-3504ulgjiiqzmjAOE [facility] Work Phone: Start: 24-26-7151Ravfao outpatient visit 15 minutes Susana EllisFPG [facility] ClydeStart: 10-30-2022([facility]WM[facility]) Weight Management f/uHeajuliana [facility] Coordinated Care ClinicStart: 10-30-2022 End: 78-17-6991iydnniuvzcSnixggb Machelle Other [employer] Other Start: 45-93-5044Zvyhamlecs [facility] Ctr-Weight Management Work Phone: Start: 10-29-2022 End: 02-72-6722olgxqwomklAljumuwrp Breault Other [employer] Other Start: 03-42-2730Tmjaaw outpatient visit 15 minutes Ellie [facility] ClydeStart: 10-08-2022 End: 64-95-4714Nuntxffdr department patient visitSumma Health W[facility]- Emergency Room Work Phone: Start: 10-06-2022 End: 58-27-6679fodpyvalzyCogy Joshblayne Other [employer] Other Start: 85-69-6160PXY FOR OBESITY GROUP 2-10 30MDawn [facility] Coordinated Care ClinicStart: 88-81-4885Eoealtqskc [facility] Ctr-Weight Management Work Phone: start: 00-58-5455Avkwlw outpatient visit 15 minutes Ellie [facility] ClydeStart: 10-01-2022 End: 63-57-4439ubgzrsnqdpOVU STAFFSumma Health Wadsworth [facility] Ctr Work Phone: Start: 10-01-2022 End: 82-92-8063Fgohydf encounter procedureSumma Health W[facility] C[facility]-XRay Rafi Work Phone: Start: 09-30-2022 End: 71-31-4723ppyqxiesocDutjxiv Missler Other [employer] Other Start: 49-26-9539Hwzjpzprq therapyHeajuliana [facility] Hospitalbyron [facility] Coordinated Care ClinicStart: 32-07-3558Glxbjomimu [facility] Ctr-Weight Management Work Phone: Start: 09-25-2022 End: 94-37-7367qaenfhmjvqMlienkieb Juan Jose Other [employer] Other Start: 74-93-5148Orwzvifma encounterStephanie Juan Jose [facility] ClydeStart: 09-23-2022 End: 58-63-2295mmzyczmbooYjuaupmfm Juan Jose Other [employer] Other Start: 34-83-4483Bjvviptat encounterStephanie Juan Jose [facility] Referral CoordinatorStart: 09-21-2022 End: 88-15-5605jqkdkbbbxgZGODHMLER JUAN JOSEFacility:M1Clfkg: 09-20-2022 End: 77-44-8494rdajxloygzTapwzp Dymond Other [employer] Other Start: 51-55-0743Uslyse outpatient visit 15 minutes Susana EllisFP[facility] ClydeStart: 09-14-2022 End: 18-39-0817fyylwlwkubYmlsgbbmy Juan Jose Other [employer] Other Start: 16-35-2621Nrrusj outpatient visit 15 minutes Ellie IngramFPG Family Medicine ClydeStart: 09-10-2022 End: 37-94-4711Sradpredm department patient visitFayette County Memorial [facility]- [facility] Work Phone: Start: 09-10-2022 End: 44-44-3045lrppahqkdyBebxayczj Breault Other [employer] Other Start: 23-62-2075Iyorskh encounter procedureStepdavid IngramFPG [facility] Care ClydeStart: 09-07-2022 End: 89-32-8988osownktldmJcqzoehzw Breault Other [employer] Other Start: 39-16-2091Lqusrtenr encounterStephanie Juan Jose [facility] ClydeStart: 08-27-2022 End: 14-12-5424eniuzgzmvtLxxrpcpqy Juan Jose Other [employer] Other Start: 42-17-0985Dsvrmr outpatient visit 15 minutes Ellie JuanaultFPG Family Medicine ClydeStart: 08-17-2022 End: 13-54-3682qptbtnzlzpCgjhutwiu Juan Jose Other [employer] Other Start: 38-18-2107Rrcyewobe encounterStephanie Juan Jose [facility] ClydeStart: 07-30-2022 End: 15-95-0280myvnfjdigrStojonfie Juan Jose Other [employer] Other Start: 92-30-5375Gwnqvm outpatient visit 15 minutes Ellienancy IngramFPG [facility] Medicine ClydeStart: 07-20-2022 End: 51-32-2052kosmalavnfSujahukql Juan Jose Other [employer] Other Start: 26-14-5259Quwxeu outpatient visit 15 minutes Ellie JuanaultFPG [facility] ClydeStart: 07-10-2022 End: 79-89-9705olxkrzwzpqGvepinmdw Juan Jose Other [employer] Other Start: 44-46-6167Fueyhpwsr encounterStephanie Juan Jose [facility] Referral CoordinatorStart: 07-02-2022 End: 31-13-1231icrvbmgplaWyicavbeq Juan Jose Other [employer] Other Start: 48-78-2241Awxwrk outpatient visit 15 minutes Ellie JuanaultFPG [facility] Medicine ClydeStart: 06-30-2022 End: 70-68-4127mdumolmalsSstescsop Breault Other [employer] Other Start: 97-82-6607Whkdosdea encounterStepdavid Ingram [facility] Care ClydeStart: 06-29-2022 End: 17-43-0171xqhcwqczqxEyiuox Felter Other [employer] Other Start: 16-19-8143Dewhcd outpatient visit 15 minutes Pop BlandonCO[facility] Pain Management [place] CreekStart: 06-25-2022 End: 83-61-7880gpzlqybwzaDmiakvnzh Breault Other [employer] Other Start: 23-73-0893Tvtlbu outpatient visit 15 minutes Ellie IngramCO[facility] ClydeStart: 06-22-2022(Procedure) ShortThomas FelterErie Shores Surgery CenterStart: 06-22-2022 End: 82-91-3348vvnvdflcumLkwxdx Felter Other [employer] Other Start: 06-11-2022 End: 54-12-6038isjwamjhuaIlbytmnxk Breault Other [employer] Other Start: 35-38-5269Adimkhuej encounterStepdavid Ingram [facility] Family Medicine ClydeStart: 06-05-2022 End: 79-64-4481dozokthdxiQPVNAEJTJ JUAN JOSEFacility:L4Feanp: 06-01-2022 (Procedure) ShortThomas FelterErie Shores Surgery CenterStart: 06-01-2022 End: 56-39-5048ompdjakjbnObsuro Felter Other [employer] Other Start: 05-25-2022 End: 58-43-6866wyxgbtddjeYxydrgeoo Juan Jose Other [employer] Other Start: 07-65-1960Msdzlm outpatient visit 25 minutes Ellie [facility] ClydeStart: 05-21-2022 End: 59-39-2181uwicdkblvoBegglcgkj Juan Jose Other [employer] Other Start: 26-97-3128Ltzgzu outpatient visit 15 minutes Ellie [facility] ClydeStart: 05-08-2022 End: 79-46-6805awjmzzthnqBgmocsrlh Juan Jose Other [employer] Other Start: 60-07-4994Owkcgdxqz encounterStepdeminancy Ingram [facility] Referral CoordinatorStart: 04-27-2022 End: 14-53-4137qpmtgdcbaqWwhufylxo Juan Jose Other [employer] Other Start: 52-79-5431Boakhy outpatient visit 15 minutes Ellie [facility] ClydeStart: 04-22-2022 End: 08-48-4159ecozgncdqbWzgzaq Felter Other [employer] Other Start: 83-11-3536Uhkhmt outpatient visit 25 minutes Pop Luevano Pain Management [place] CreekStart: 04-16-2022 End: 44-92-5724zsekqserlgCmjawc Felter Other [employer] Other Start: 77-51-0059Fcviilplg encounterThomas FelterFPG [facility] OrthopedicsStart: 04-13-2022(Procedure) ShortThomas FelterErie [facility] CenterStart: 04-13-2022 End: 73-54-1616wguvlxiwfhDimifr Felter Other [employer] Other Start: 30-52-8230Edccry outpatient visit 15 minutes Ellie BinghamConradGretta Family Medicine ClydeStart: 04-06-2022 End: 75-46-2217dpabmbdsmaJZVTYFCDH JUANLakeland [facility] [employer] Other Start: 03-03-2022 End: 43-13-8663znajuqjwqfLdvwbgmqy Juan Jose Other [employer] Other Start: 39-99-0479Hpzhyg outpatient visit 15 minutes Ellie BinghamConradGretta [facility] ClydeStart: 01-28-2022 End: 28-83-0898dodycipelpAkjwsz Felter Other [employer] Other Start: 83-58-0164Itatergdi encounterThomas FelterFPG Pain Management [place] CreekStart: 01-21-2022 End: 58-87-7599ydpisrajkvVpqdjg Felter Other [employer] Other Start: 24-61-6675Wsbgvagex encounterThomas FelterFPG [facility] OrthopedicsStart: 01-15-2022 End: 76-41-2602etybimzcdfWuuyfs Felter Other [employer] Other Start: 42-22-6629Hczrrd outpatient visit 25 minutes Pop FelterFPG Pain Management [place] CreekStart: 12-11-2021 End: 45-34-0215qqabulyfgyEkzkaz Felter Other [employer] Other Start: 11-91-7810Blcvrr outpatient visit 25 minutes Pop FelterFPG Pain Management [place] CreekStart: 12-03-2021(Procedure) Kat Muñoz [facility] CenterStart: 12-03-2021 End: 20-63-8168flvhzwkvbgGtdmzy Felter Other [employer] Other Start: 11-14-2021 End: 06-11-7580pzdfbhdcmoUobdve Felter Other [employer] Other Start: 16-56-2381Qiycuoast encounterThomas FelterFPG [facility] OrthopedicsStart: 11-13-2021 End: 80-09-2138fxbtbvitvvYlrjdz Felter Other [employer] Other Start: 16-35-2151Hqtgne outpatient visit 25 minutes Pop FelterFPG Pain Management [place] CreekStart: 11-06-2021 End: 03-83-5402hglhedoygyPoiathheo Juan Jose Other [employer] Other Start: 27-76-5885Nhkhys outpatient visit 15 minutes Ellie IngramFPG [facility]gent Care ClydeStart: 73-63-3780Apocwlkos encounter Edie ArtemioFPG Urgent Care ClydeStart: 10-29-2021 End: 30-91-7315kvbsmmleaaDtcaxl Felter Other [employer] Other Start: 66-03-6053Zksxpmxpf encounterThomas FelterFPG [facility] OrthopedicsStart: 09-29-2021 End: 43-60-7027vqsnveuglkCzlosx Felter Other [employer] Other Start: 61-12-8958Puimap outpatient visit 25 minutes Pop FelterFPG Pain Management [place] CreekStart: 09-25-2021 End: 08-19-1070vczhhmfmiaVymrwmc Artemio Other [employer] Other Start: 17-90-6296Atllhoggr encounterMatthew WidmerFPG Family Medicine [place]kyStart: 08-19-2021 End: 52-93-4226bwjgyoajniDjqfgok Artemio Other [facility] [employer] Other Start: 76-75-8082Qmhldtrda encounterMattsiobhan SinghSERGIO Family Medicine [place]kyStart: 08-11-2021 End: 41-31-0696vntrgptajhInzxgzu Widmer Other [facility] [employer] Other Start: 45-91-1019Ugvuoo outpatient visit 15 minutes Edie JosueGretta Family [facility] SanduskyStart: 38-00-9914Aycsxv outpatient visit 15 minutesCedricttsiobhan SinghGretta Family [facility] SanduskyStart: 08-10-2020 End: 83-67-7908Hugfonm encounter procedureMATTSIOBHAN [facility] CenterStart: 08-10-2020 End: 51-39-8891Ehznbgvuil hospital visit by physicianSMain [facility] MRIComment on above:Left elbow pain Procedures DateProcedureProcedure DetailPerforming ClinicianStart: 79-91-7168Ctlie 1996 panel - Serum or PlasmaRyan Brenna RAMIREZ Work Phone: Start: 08-21-2690Jjpyzmpibe glycosylated n6hFgkirr Jose L Celestin THREAD WEAVER Work Phone: Start: 91-05-6372QxvowannudNNCDCSG NKANSAH-AMANKRA Start: 96-57-6606Wcq routine ecg w/least 12 lds w/i&r Martin D Brenna RAMIREZ Work Phone: Start: 14-02-0739Sbeko depression screening assessment [facility] MidwifeStart: 19-11-9060BI lumbar spine wo conFNP-C Ellie BinghamaultStart: 01-01-2023 End: 19-90-5404AmlrqjjbmkaBybk Paulo OFFAL ROLLER-INVENTORY CONTROL/SHIPPING RECEIVING Work Phone: Start: 75-18-2208Jgynx X-ray of right hipStart: 99-00-3520R-ray of right kneeStart: 13-69-8881Ddkxl chest X-rayStart: 10-01-2022 Plain chest X-rayStart: 01-02-8202Nzsjqwvm tomography of abdomen and pelvis with contrastStart: 80-11-1862Dewidevzjst observation [Identifier] in Cervix by Cyto Krystina Bates APRN-ALYSON Work Phone: Start: 96-66-0370Iql any jt upper extremity w/o contrast matrlMATTHEW WIDMERStart: 36-59-6819Off any jt upper extremity w/o contrast matrlMatthew N Artemio Work Phone: Spinal nerve structure (body structure)YESENIA NKBOOGIE Plan of Treatment DateCare ActivityDetailAuthorStart: 54-94-0888Oogsx panelLipid PanelUC HealthStart: 66-21-1636Cycex BMI ScreeningAdult BMI Screening [facility] SystemStart: 23-51-9320Dnvkkzq ScreeningTobacco Screening [facility] SystemStart: 93-37-1716pyqibwfdvrVwpgoumcciLpugbaws:EU Fellows Start: 11-29-2025 End: 62-49-5062Ijvsyfr encounter /02/2026 1:30 PM EDT Office Visit [facility] [address] [place] [address] [address], [place] [phone] [place] [address] [place], [place] [address] [facility] BuildingStart: 11-06-2025 End: 84-56-6448Hxlsxnx encounter xucicslcd39/10/2026 10:00 AM EDT Office Visit [facility] Tra[facility] [address] [place] [phone] Anamika Celestin NP [address] [place] [address] [facility] Family MedinceStart: 08-01-2025 End: 53-88-4499Mtmrwxq encounter ilkbujfdd79/03/2025 3:00 PM EST Office Visit [facility] [address] [place] [address] Alexis Grace, DPM [address] [place] [address] ER[facility] Hunt PodiatryStart: 06-26-2025 End: 68-05-8392Rdgokeh encounter dkqwduefq36/28/2025 9:30 AM EDT Office Visit [facility] [address] [place] [address] DkfUwmljk Women's Services - CyldeStart: 06-06-2025 End: 14-50-5600TNG Breast - bilateral screeningMammography screening bilateral with CAD Imaging Routine Encounter for screening mammogram for malignant neoplasm of breast Expected: 06/06/2025, Expires: 08/04/2026[facility] SystemComment on above:Expected: 06/06/2025, Expires: 08/04/2026Start: 06-06-2025 End: 39-77-1159VK Pelvis transabdominal and transvaginalUltrasound pelvic with transvaginal Imaging Routine Postmenopausal bleeding Expected: 06/06/2025, Ex gabbie: 06/06/2026Pro[facility] Work Phone: Comment on above:Expected: 06/06/2025, Expires: 06/06/2026Start: 05-31-2025 End: 95-29-5439Wfmxxxb encounter zlhwjikcu49/02/2025 1:15 PM EDT Office Visit [facility] [address] [place] [phone] [place] [address] [place] [address] [facility] BuildingStart: 05-08-2025 End: 78-58-9444SVL panel - Blood by Automated countCBC Lab Routine Primary hypertension Expected: 05/08/2025 (Approximate), Expires: 05/08/2026[facility] Work Phone: Comment on above:Expected: 05/08/2025 (Approximate), Expires: 05/08/2026Start: 05-08-2025 End: 83-93-1874Iwqlxcsnppoeg metabolic 2000 panel - Serum or PlasmaComprehensive metabolic panel Lab Routine Primary hypertension Expected: 05/08/2025 (Approximate), Expires: 05/08/2026[facility] HealthcareComment on above:Expected: 05/08/2025 (Approximate), Expires: 05/08/2026Start: 05-08-2025 End: 85-44-8596FpqqalgxDovwfjmj Lab Routine Weight gain Pain Expected: 05/08/2025 (Approximate), Expires: 05/08/2026[facility] HealthcareComment on above: Expected: 05/08/2025 (Approximate), Expires: 05/08/2026Start: 05-08-2025 End: 22-75-4928Yuood 1996 panel - Serum or PlasmaLipid panel Lab Routine Lipid screening Expected: 05/08/2025 (Approximate), Expires: 05/08/2026[facility] Comment on above:Expected: 05/08/2025 (Approximate), Expires: 05/08/2026Start: 05-08-2025 End: 47-20-6480QOGYWIRWQJ ARTHRITIS DIAGNOSTIC PANEL 3RHEUMATOID ARTHRITIS DIAGNOSTIC PANEL 3 Lab Routine Primary osteoarthritis involving multiple joints Pain Pain in other joint Expected: 05/08/2025 (Approximate), Expires: 05/08/2026 [facility] HealthcareComment on above:Expected: 05/08/2025 (Approximate), Expires: 05/08/2026Start: 05-08-2025 End: 01-39-4865Xwajqgnbdug [Units/volume] in Serum or PlasmaTSH Lab Routine Acquired hypothyroidism Expected: 05/08/2025 (Approximate), Expires: 05/08/2026 [facility] HealthcareComment on above:Expected: 05/08/2025 (Approximate), Expires: 05/08/2026Start: 05-08-2025 End: 95-98-6824Wbehowb encounter procedureNOMS Rafi Arora MedinceComment on above:ArrivedStart: 05-02-2025 End: 20-19-1564Hkdowkx encounter ndlaxwasw95/03/2025 3:00 PM EDT Office Visit [facility] [address] [place] [phone] Alexis Grace, DPM [address] [place] [address] ER[facility] Hunt PodiatryStart: 28-80-0901YZOUD-19 Vaccine ( season)COVID-19 Vaccine ( season)[facility]: 46-25-4335ZRMHG-19 Vaccine ( season)COVID-19 Vaccine ( season)[employer] [facility]efined SystemStart: 94-51-4980Rksdfgvcv vaccinationUniversity Hospitals Ahuja Medical Center: 04-04-2025 End: 25-04-5990Wwqmoos aminotransferase [Enzymatic activity/volume] in Serum or PlasmaALT Lab Routine Onychomycosis Expected: 04/04/2025 (Approximate), Expires: 04/04/2026[facility] Work Phone: Comment on above:Expected: 04/04/2025 (Approximate), Expires: 04/04/2026Start: 04-04-2025 End: 88-94-2521Qdvdgqwqv aminotransferase [Enzymatic activity/volume] in Serum or PlasmaAST Lab Routine Onychomycosis Expected: 04/04/2025 (Approximate), Expires: 04/04/2026NONE HealthcareComment on above:Expected: 04/04/2025 (Approximate), Expires: 04/04/2026Start: 48-68-8939Zszgnwqrc vaccination Influenza Vaccine (#1)[facility]: 58-04-5447Exhak BMI Follow Up PlanAdult BMI Follow Up PlanProDelaware County Hospital SystemStart: 14-42-0116Derkl BMI ScreeningAdult BMI ScreeningProDelaware County Hospital SystemStart: 59-30-2762Xsmdzuuifq ScreeningDepression ScreeningSt. Vincent Hospital SystemStart: 05-22-2025Medicare Annual Wellness (AWV)Medicare Annual Wellness (AWV)[facility] HospitalStart: 17-39-8531Hxcyibk ScreeningTobacco ScreeningProDelaware County Hospital SystemStart: 61-24-0879Sngijxiol for malignant neoplasm of breastBreast cancer screenBON UNIV[facility] CENTERStart: 11-30-2024 End: 31-74-8109Roczcbo encounter lmzivtdzr13/03/2025 2:00 PM EDT [facility] Visit [facility] [address] [place] [address] Martin Larios MD [address] [place] [address] [address], [facility] [address] [place] [address] [facility]art: 10-16-2024 End: 15-01-6745Dwelfmc encounter /17/2025 10:00 AM EST Office Visit [address] [phone] Martin Larios MD [address] [place] [address] [address], [facility] [address] [place] [address] [facility]: 10-05-2024 End: 56-30-1012Uvxdnro encounter pegzavqae90/06/2025 8:00 AM EST Appointment [facility] [address] [address] [facility] Hospitaltart: 08-09-2024 End: 29-87-8190Suczpog encounter qjxlyqcyh94/11/2024 3:30 PM EST Office [facility] [address] [place] [phone] Dario Palacios, DO [address] [place] [address] ArrivedNOST. MARY'S HOSPITAL STATE ROUTEComment on above:ArrivedStart: 07-31-2024 End: 57-91-9518Penp table studyTilt table Cardiac Services Routine Postural dizziness with near syncope Expected: 07/31/2024 (Approximate), Expires: 07/31/2026[facility] Work Phone: comment on above:Expected: 07/31/2024 (Approximate), Expires: 07/31/2026Start: 59-49-3761Bbncypezt vaccinationNONE HealthcareStart: 16-23-0546Dwipxqjbc vaccinationFlu vaccine (Season Ended)[facility]ENTERStart: 01-19-2024 End: 38-47-4007XNQ Breast - bilateral screeningMammography screening bilateral with CAD Imaging Routine Encounter for screening mammogram for malignant neoplasm of breast Expected: 01/19/2024, Expires: 01/18/2025[facility] Work Phone: Comment on above:Expected: 01/19/2024, Expires: 01/18/2025Start: 01-19-2024 End: 41-33-7845Uyswjjv encounter hkxlaqhcr72/22/2024 10:00 AM EDT [facility] [address] [place] [address] DmmSgvtuh Women's Services - CyldeStart: 53-76-4603Jzxuidxol for malignant neoplasm of breastMammogramNONE HealthcareStart: 25-81-2528Nybzv BMI Follow Up PlanAdult BMI Follow Up PlanProWalker [facility] Health SystemStart: 12-16-2023 Adult BMI ScreeningAdult BMI ScreeningProDelaware County Hospital SystemStart: 12-16-2023 Tobacco ScreeningTobacco ScreeningProDelaware County Hospital SystemStart: 11-27-2023 Screening for malignant neoplasm of cervixPap SmearProDelaware County Hospital SystemStart: 31-70-3082TWPTT-19 Vaccine ( season)COVID-19 Vaccine ( season)[facility]: 80-60-0749Wfulfkahpqfrfq of varicella zoster vaccineZoster (Shingles) Vaccine (1 of 2)[facility]: 90-08-0615Kpgxwavy vaccine (1 of 2)Shingles vaccine (1 of 2)[facility]: 77-63-6196Pctyyt Vaccines (1 of 2)Zoster Vaccines (1 of 2) [facility]: 14-73-7396Tpzquubsc vaccinationFlu vaccine (#1)[facility]: 73-73-0737Xvxluzyvp for malignant neoplasm of colonBON [facility]: 24-10-4463Afojd panelInova [facility]: 50-89-8225Aobsqdgf screenDiabetes screenIn[facility]: 56-01-2357Pvyxjfpsi for malignant neoplasm of cervixNOMS Healthcare Start: 00-54-2181ZFrA/Tdap/Td Vaccines (1 - Tdap)DTaP/Tdap/Td Vaccines (1 - Tdap)[facility]: 67-65-8850Qhffvgtyw for malignant neoplasm of cervixNOMS [facility] CenterStart: 06-43-1027AMlX,Tdap and Td Vaccines (1 - Tdap)DTaP,Tdap and Td Vaccines (1 - Tdap)[facility]: 80-76-2996IWaB/Tdap/Td vaccine (1 - Tdap)DTaP/Tdap/Td vaccine (1 - Tdap)[facility]: 72-80-1131Rgestetti B Vaccines (1 of 3 - 19+ 3-dose series)Hepatitis B Vaccines (1 of 3 - 19+ 3-dose series)[facility]: 52-48-9730Wrznbujcuplm vaccinationPneumococcal Vaccine (1 of 2 - PCV)[facility]: 80-24-3613Xkzgqhks mellitus screeningDiabetes ScreeningUniversity Hospitals [facility]: 11-11-1988 Hepatitis C screeningUniversity Hospitals Ahu[facility] Center: 61-58-6792RNP screeningHIV screenBON [facility]: 15-69-6094Zyxwbzaegy Screen Depression ScreenBON [facility]: 87-80-2528Lervitewfk Screening Depression ScreeningUNC Health [facility] - Valdesetart: 99-53-9958RRGUN-19 Vaccine (#1)COVID-19 Vaccine (#1)[facility]: 09-74-5384EOL Vaccines (1 of 1 - Standard series)MMR Vaccines (1 of 1 - Standard series) [facility]: 65-77-5570Zvzjye wellness visitWelcome to Medicare VisitUnOhio State Health System: 75-59-7218Tonjutueo B vaccine (1 of 3 - 3-dose series)Hepatitis B vaccine (1 of 3 - 3-dose series)[facility]: 98-59-7903RPE screeningHIV ScreeningUniversity Hospitals [facility]hu[facility]: 55-82-3258Ludec panelLipid PanelUniversity Hospitals Ahuja Medical Center: 23-13-5551Sqvmzaffl for malignant neoplasm of colon [facility] End: 98-53-6078MhbcgtrlWhtpjiwb Lab Routine Postmenopausal bleeding Amenorrhea Perimenopausal vasomotor symptoms 1 Occurrences starting 06/06/2025 until 06/06/2026ProDelaware County Hospital SystemComment on above:1 Occurrences starting 06/06/2025 until 06/06/2026 End: 82-78-6555AJGF-sulfateDHEA-sulfate Lab Routine Postmenopausal bleeding Amenorrhea Perimenopausal vasomotor symptoms 1 Occurrences starting 06/06/2025 until 06/06/2026ProDelaware County Hospital SystemComment on above:1 Occurrences starting 06/06/2025 until 06/06/2026 End: 75-46-3899TmgipamueMkjmkbsop Lab Routine Postmenopausal bleeding Amenorrhea Perimenopausal vasomotor symptoms 1 Occurrences starting 06/06/2025 until 06/06/2026ProWalker [facility] Center Media Redefined SystemComment on above:1 Occurrences starting 06/06/2025 until 06/06/2026 End: 88-62-7626Zpiyump, SEstrone, S Lab Routine Postmenopausal bleeding Amenorrhea Perimenopausal vasomotor symptoms 1 Occurrences starting 06/06/2025 until 06/06/2026ProWalker [facility] Medical Center Media Redefined SystemComment on above:1 Occurrences starting 06/06/2025 until 06/06/2026Patient EducationSumma Health [facility] Work Phone: Patient referralSumma Health Wad[facility] Work Phone: End: 95-99-8502RbstqblkngooSqrgqthieuni Lab Routine Postmenopausal bleeding Amenorrhea Perimenopausal vasomotor symptoms 1 Occurrences starting 06/06/2025 until 06/06/2026[facility] SystemComment on above:1 Occurrences starting 06/06/2025 until 06/06/2026 End: 31-63-3687Foc hormone binding globulinSex hormone binding globulin Lab Routine Postmenopausal bleeding Amenorrhea Perimenopausal vasomotor symptoms 1 Occurrences starting 06/06/2025 until 06/06/2026ProWalker Baptist Medical Center Health SystemComment on above:1 Occurrences starting 06/06/2025 until 06/06/2026 End: 08-38-0241Ojrwniktxqmp, Total and Free, STestosterone, Total and Free, S Lab Routine Postmenopausal bleeding Amenorrhea Perimenopausal vasomotor symptoms 1 Occurrences starting 06/06/2025 until 06/06/2026ProMercy Health St. Vincent Medical Centerca Health SystemComment on above:1 Occurrences starting 06/06/2025 until 06/06/2026 End: 78-72-0920Caxk table [facility] Work Phone: comment on above:Once for 1 Occurrences starting 11/16/2024 until 11/16/2024 End: 27-78-9425Shazabt D 25 hydroxyVitamin D 25 hydroxy Lab Routine Postmenopausal bleeding Amenorrhea Perimenopausal vasomotor symptoms 1 Occurrences starting 06/06/2025 until 06/06/2026ProWalker Baptist Medical Center Health SystemComment on above:1 Occurrences starting 06/06/2025 until 06/06/2026 Immunizations Immunization DateImmunizationNotesCare MtkuekdjGvxvmglq92-58-5847kvufkjcih, injectable, madin [place] canine kidney, preservative freePParkwood Hospital10-08-2025Immunization, In Clinic,; Translations: [Drug or medicament (substance)][facility]10-08-2021SARS-CoV-2 (COVID-19) mRNA BNT-162b2 Eveline YUSUF [facility]09-16-2021SARS-CoV-2 (COVID-19) mRNA BNT-162b2 Eveline YUSUF [facility]09-16-2021influenza virus vaccine, unspecified formulationLisa Paulo [employer]-INVENTORY CONTROL/SHIPPING RECEIVING Work Phone: [facility]07-13-2021Toradol 30 mg/mlMatthew Artemio Other [employer] Other 07-408956-87-4024CZBGOZB - 10 mgMatthew Artemio Other [employer] Other 06-897005-67-3839Uhcdtuz 30 mg/mlMatthew Artemio Other [facility] [employer] Other 10-148854-37-6551Ulqm-Dlkmxe 80 mgMatthew Artemio Other nomercy hospital st. [facility] [employer] Other 10-304485-60-7232Pxdp-Zuvdla 40 mgMatthew Artemio Other [facility]Pointer[facility] [employer] Other 04-247618-46-5313Tyresyg per 15 mgMatthew Artemio Other [facility] [employer] Other 04208245-57-8473Ibof-Qoczdn 80 mgMatthew Artemio Other [employer] Other Payers DatePayer CategoryPayerPolicy [id number] Health Insurance [id number] Eligibility Medicare/Medicaid OrganizationC[facility] [place] [id number] 57-29-6260Gruaqfc Health [id number] 2024MedicareMEDICARE [id number] 2024Medicare (Managed Care) [id number] 2024Medicare HMOAETNA MEDICARE Member Subscriber Plan / Payer (Effective 2024-Present) Name: Joselito Vidal Relation to Subscriber: Self Name: Joselito Vidal Payer ID: 1 (NAIC) Type: Not on file Address: [address] [place] [id number]725Vtrwmtv Health [id number] 2023Medicaid [id number]-frs [id number]4530050168-60-8031 [id number] 2.840.1.800321.3.579.2.93116-11-2345Wqjnmur1155000 2.840.1.198271.3.579.2.45959-75-7486Viutrkt0442379 2.840.1.900274.3.579.[id number] 2.840.1.820167.3.579.2.68090-54-8760Hkkxldh13666938 2.840.1.461084.3.579.2.[id number] 2.840.1.813751.3.579.2.[id number] 2.840.1.367691.3.579.2.76535-48-4591Uwvfcus40523801 2.0.1.930538.3.579.2.08806-10-9273Tijgcgm47443461 2.840.1.740297.3.579.2.33467-36-6759Qlcwcdh90583041 2.840.1.295425.3.579.2.90889-40-7395Foxbyxd24111671 2.840.1.438895.3.579.2.27208-62-3142Njiiguu58173003 2.840.1.822590.3.579.2.98253-36-0797Pgwkjen60523714 2.840.1.281987.3.579.2.98503-47-4831Fnwuybs74611701 2.840.1.088200.3.579.2.12863-90-3100Txncsyc16203248 2.840.1.258356.3.579.2.19546-20-1103Geaqxnp68969937 2.840.1.945471.3.579.2.71911-50-4186Lncynul04467429 2.840.1.499110.3.579.2.45497-81-7710Lhxhjyf24671735 2.0.1.474630.3.579.2.63455-32-3594Rnwadvb48403531 2.840.1.086507.3.579.2.05136-23-6273Axtdjxd56686385 2.840.1.631412.3.579.2.49869-74-8519Unyccqm33481633 2.840.1.728228.3.579.2.38439-44-9021Kvxjowq23287899 2.84.1.570349.3.579.2.79247-75-0219Oprsoid91336707 2.840.1.568329.3.579.2.89847-31-7315Jkaujco25310622 2.840.1.942773.3.579.2.16823-30-2998Htyqffc19856563 2.840.1.218150.3.579.2.35165-51-2862Laxfcwn65144871 2.840.1.219152.3.579.2.427159-42-5635Keydixa27720075 2.16.840.1.508982.3.579.2.18951-19-6454Ultuost20977981 2..1.063947.3.579.2.10749-64-9057Rzrkuhn32073543 2.0.1.203657.3.579.2.772144-11-4362Xhofhss78784810 2..1.058618.3.579.2.368208-17-2900Wizpyqg10737964 2..1.055079.3.579.2.150667-69-7161Nzoytjm54085345 2..1.000986.3.579.2.783986-80-6708Akzpoop99379418 2..1.283353.3.579.2.778402-95-1781Kgoefze1777901 2..1.088282.3.579.2.470440-65-8528Ezumzfo414880466 2..1.821665.3.579.2.993757-10-2875Oagiqwk869599993 2..1.221763.3.579.2.752359-97-5708Vnejeao869297490 2..1.451870.3.579.2.813366-86-8283Pnwbubt556523547 2..1.329629.3.579.2.1244 [id number] 2..1.700619.19MedicaidAMerit Health [id number] k74rwszy-xkg5-2ovo-y86k-545054xcn808OfmekwxC85683296 2.0.1.482878.19Unknown HCAP/HFA/FAP CzcnfvJ622111 cu15n8l1-sv6c-9e65-2028-7581395twm65Zohyshd Gnkzagzfijc49839041 27m6de1d-si1o-3e73-[id number] 2.16.840.1.418589.3.579.2.540Yfrhbtm69290757 2..840.1.859572.3.579.2.531 Nxuxxcf06759269 2.16.840.1.833137.3.579.2.961Hmkarnh71395048 2.16.840.1.463862.3.579.2.531 Social History DateTypeDetailFacilityTobacco smoking status NHISUnknown if ever smokedRegency Hospital [facility]: 51-17-8434Hvv Assigned At BirthNot on [facility]: 07-31-2024 End: 50-09-8307Qpp Assigned At [facility] [employer] Other Start: 09-10-2022 End: 27-50-8357Lyfloom smoking status NHISNever smoked tobacco (finding) [facility] Hospitaltart: 63-95-5415Vni Assigned At [facility] HospitalFeMercy Health St. Elizabeth Boardman HospitalTobacco smoking status NHISTobacco smoking consumption unknownBRIGHAM CITY [facility] HealthcareStart: 12-15-2022 End: 51-62-7739Seghkiq use and exposureSmokeless tobacco non-userProWalker [facility] Health SystemStart: 07-31-2024 End: 34-65-2050Uenanrkad beverage intakeLifetime non-drinker (finding)[facility] Work Phone: Start: 07-31-2024 End: 88-97-0195Nzturgf of Social functionProMedica Health SystemStart: 07-21-2024 End: 10-40-6952Ifyruasf to SARS-CoV-2 (event)Not [facility] CenterStart: 01-01-2023 End: 97-49-9366Rhbbtkzpf beverage intakeCurrent drinker of alcohol (finding) [facility] SystemChildcareUnknownProMedica Health SystemStart: 03-28-2020 Alcohol CommentoccasionalProMedica Health SystemSexual OrientationAultman Orrville Hospital Start: 12-02-2022 End: 64-95-4253UbgExoluf (finding)[facility] HospitalNEGATED: Highlighted rowStart: NINFHistory of tobacco usePassive [facility] Medical Equipment Procedure CodeEquipment CodeEquipment Original TextEquipment IdentifierDates Start: 71-22-8519DBQQJFGCJT W/ HOMIUM LASER TREVOR RAMIREZ, YESENIA 10/19/24 Unknown Ureter RFDAStart: 20-47-0357ZTPSFBBJPR W/ HOMIUM LASER TREVOR RAMIREZ, YESENIA 10/19/24 Unknown Ureter RFDAStart: 18-62-8647UZQAEUYROD W/ HOMIUM LASER TREVOR RAMIREZ, YESENIA 10/19/24 Unknown Ureter RFDAStart: 10-19-2024 Functional Status KoiwMiyauaupusKstrcpYausyoqc49-47-7997Xyhozyizym /76[facility] Work Phone: [phone]iaqc signs60 05/31/2025 1:27 PM Antonieta Godoy, [facility] Work Phone: [phone]DozcxiwaowUC Health Work Phone: [phone]) 332-703009897868-37-9506Kfhcpep Health Questionnaire 2 item (PHQ-2) [Reported][facility] CenterOrosqwhynz65-82-1566Mfdmgyo Health Questionnaire 2 item (PHQ-2) [Reported][facility] Rehabilitation CenterAmeubfdltj73-10-6621Hojgcwfqst StatusLicking Memorial Hospital02-10-2025Functional StatusN/AExec[facility] Clinical Notes 06-12-2021 to 06-06-2025 Note Date & MmxwNpxtHlztxjuv86-31-8440 History of Present illness Narrative* Naima Macedo, [employer]-INVENTORY CONTROL/SHIPPING RECEIVING - 06/06/2025 2:15 PM EDT Joselito Vidal is a 54 y.o.female. 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 Review of Systems Review of Systems Constitutional: Negative. Respiratory: Negative. Cardiovascular: Negative. Gastrointestinal: Negative. Genitourinary: Positive for vaginal bleeding. Neurological: Negative. Psychiatric/Behavioral: Negative. Objective BP (!) 170/96 Ht 157.5 cm (5' 2 ) Wt 109.8 kg (242 lb) LMP 03/28/2020 BMI 44.26 kg/m Physical Exam Vitals and nursing note [...] Thought content normal. Judgment: Judgment normal. Assessment/Plan: Joselito was seen today for vaginal bleeding. Diagnoses [...] All questions answered. Educational material provided through [employer]. RTO for annual (due now) or sooner as needed. CEDRIC Cooley APRN-AMARILIS Randle 06/06/25 1544 documented in this encounterKindred Hospital Dayton10-02-2025 Telephone encounter Note* Telephone Encounter - Mari Rachel - 05/31/2025 3:22 PM EDT Patient also states that the nurtec is still being denied she didn't know if we should keep trying to get it approved or to try something else for her migranes [facility] CenterCxwvfdtktq33-49-6642 Miscellaneous Notes* Telephone Encounter - Mari Rachel - 05/31/2025 3:22 PM EDT Patient also states that the nurtec is still being denied she didn't know if we should keep trying to get it approved or to try something else for her migranes * Telephone Encounter - Sonam Sorto - 05/30/2025 2:43 PM EDT Joselito called, She stated she had saw Anamika and was told if she continued to have issues to call back and she could get an injection. She is asking if Anamika would ok that and when she could stop to get it? Joselito is also asking for a refill on [facility] [place] She states Pain Management referred her back to her PCP to take care of those refills. She states her phone will be changed on morning so please reach her at [phone] documented in this encounterRusk Rehabilitation CenterNfqxkjbezz85-10-7369 History of Present illness Narrative* Martin Larios MD - 05/31/2025 1:15 PM EDT [facility] Cassandra/Carroll/Barbara Cardiology Office Follow-up: Follow-up (6 MONTH FOLLOW UP /LABS & MEDICATION CHANGES ) Patient previously seen for POTS/postural symptoms. At the previous encounter, the patient was seen and evaluated in office followup. After the encounter the patient completed the following testing: none There were no interval changes in medical history before this appointment. Today the patient reports: lost 18 pounds. Has gotten better at managing her dizziness. Increases salt intake. Managing Additional recent non-cardiac testing includes: none ROS: Remainder of 12 review of systems is negative aside from chief complaint. PHYSICAL EXAM Vitals: 05/31/25 1327 BP: 132/76 BP Location: Left arm Patient Position: Sitting BP Cuff Size: Adult Pulse: 60 Weight: 110 kg (242 lb 12.8 oz) Height: 1.575 m (5' 2 ) [...] Joselito Vidal is a 54 y.o. female POTS and syncope Doing well on metoprolol and midodrine Followup: 6 months Martin Larios MD Director of Interventional Cardiology [facility] [place] [facility] documented in this encounterUC Health Work Phone: 1(336) 654-315310-01-2025 Telephone encounter Note* Telephone Encounter - Sonam Sorto - 05/30/2025 2:43 PM EDT Joselito called, She stated she had saw Anamika and was told if she continued to have issues to call back and she could get an injection. She is asking if Anamika would ok that and when she could stop to get it? Joselito is also asking for a refill on [facility] [place] She states Pain Management referred her back to her PCP to take care of those refills. She states her phone will be changed on morning so please reach her at [phone] [facility] [id number] History of Present illness Narrative* Anamika Celestin NP - 05/22/2025 10:00 AM EDT Images from the original note were not [...] ago, they froze the area, but now itis painful, res and swollen Migraine This is [...] 10/10. The pain is severe. Associated symptoms includeback pain. The symptoms are aggravated by bright light, emotional stress, food, noise and weather changes. She has tried darkened room, acetaminophen, oral narcotics, beta blockers, Excedrin, triptans and NSAIDs (topamax, Nurtec, Baltatab caffiene) for the symptoms. The treatment provided no relief(relief with Nurtec). Her past medical history is [...] Prior to Visit Medication Sig Dispense Refill urapaapifm-sstglggxrmkgu-lnufglnj 50-325-40 MG tablet Take 1 tablet by [...] No follow-ups on file. documented in this encounterRusk Rehabilitation [id number] History of Present illness Narrative* Anamika Celestin NP - 05/08/2025 10:00 AM EDT Images from the original note were not included. Subjective Patient ID: Joselito Vidal is a 54 y.o. female who presents to establish care. Joselito presents today to establish care with a PCP. She does see pain management and they would likefor her to have lab work done. She [...] Prior to Visit Medication Sig Dispense Refill lmvaedhyfo-xbdjjirwunnqu-zvpeenbr 50-325-40 MG tablet Take 1 tablet by mouth every 4 (four) hours if needed for headaches cetirizine (ZyrTEC) 10 MG tablet Take 10 mg by mouth Daily (Patient not taking: Reported on 05/02/2025) DULoxetine (Cymbalta) [address] capsule Take 60 mg by mouth in the morning and 60 mg before bedtime.Do not crush or chew. (Patient not taking: Reported on 05/02/2025) empagliflozin (Jardiance) 25 MG Take 25 mg by mouth Daily fludrocortisone (Florinef) 0.1 MG tablet Take by mouth gabapentin (Neurontin) 400 MG capsule Take 400 mg by mouth in the morning and 400 mg in the eveningand 400 mg before bedtime. (Patient not taking: [...] medication is ineffective x 3 days then mayincrease to 100mg-2tabs This is a chronic medical condition that is stable since last assessment. No changes in treatment are suggested at this time. Lipid screening - Lipid panel; Future Await lab Primary hypertension - CBC; Future - Comprehensive metabolic panel; Future Patient's blood pressure is currently well controlled. Continue with current medications and I willcontinue to monitor. Goal BP remains less than [...] the medications described and to seek medical careif they arise. Discussed stress mgmt strategies, social [...] Discussed minimizing high carb, high sugar, high sodium,portion control, and processed foods while making healthy [...] Discussed minimizing high carb, high sugar, high sodium,portion control, and processed foods while making healthy choice replacements. Additionally discussed recommendations of 30 minutes of aerobic exercise at least 5 days per week, that includes, walking, and chair exercises. . Instructed importance of drinking adequate water consumption (if not on fluid restriction) with minimal sugar and caffiene. Body mass index (BMI) 45.0-49.9, adult ([facility]) Discussed goal of BMI < 30. Advised on weight loss options. Encouraged diet and exercise. Discussed with patient appropriate lifestyle modification changes necessary for weight management, heart healthy eating and overall health promotion. Discussed minimizing high carb, high sugar, high sodium,portion control, and processed foods while making healthy [...] the medications described and to seek medical careif they arise. Discussed stress mgmt strategies, social support and importance of healthy diet, exercise and regular sleep habits. Advised on relaxation methods to decrease anxiety and depression. No follow-ups on file. documented in this encounterRusk Rehabilitation [id number] History of Present illness Narrative* Alexis Grace DPM - 05/02/2025 3:00 PM EDT Images from the original note were not included. Subjective Patient ID: Joselito Vidal is a 54 y.o. female who presents for Plantar Warts (Joselito Vidal is a 54 y.o. female. presents today for FUV plantar wart on left foot. Patient states wart is better.Patient relates she has started Lamisil forfungal nails [...] SKIN) ONCE A WEEK, Disp: , Rfl: eutfycbyjw-kwxfnvfgmzgqa-kvpfuoau 50-325-40 MG tablet, Take 1 tablet by [...] the morning and 2.5 mg in the eveningand 2.5 mg before bedtime., Disp: , Rfl: [...] by mouth Daily (Patient not taking: Reported on03/28/2025), Disp: , Rfl: terbinafine (LamISIL) 250 MG tablet, Take 1 tablet (250 mg) by mouth Daily, Disp: 90 tablet, Rfl: 0 tiZANidine (Zanaflex) 4 MG capsule, Take 4 mg by mouth in the morning and 4 mg in the evening and 4mg before bedtime., Disp: , Rfl: topiramate (Topamax) [...] 4th toenail. There is yellow/brown discoloration, crumbly texture,subungual debris. Tenderness with manipulation of the toenails. Left foot: Verrucous lesion seems to have resolved. Skin lines have normalized. No pinpoint, thrombosed capillaries. Neurological: General: No focal deficit present. Mental Status: She is alert. Psychiatric: Mood and Affect: Mood normal. Behavior: Behavior normal. Assessment/Plan ICD-10-CM 1. Plantar wart B07.0 Patient examined and evaluated. Plantar wart responded very well to chemical cauterization. She hashad complete resolution of verrucous tissue. I recommend [...] We will monitor for fungal clearance. Follow up3 months for Lamisil follow up. This note was created with the assistance of a speech recognition program. While intending to generate a timely document that accurately reflects the content of the visit, no guarantee can be provided that every grammatical or spelling mistake has been or will be identified or corrected. Thank you for your understanding. Alexis Grace DPM documented in this encounterRusk Rehabilitation [id number] Telephone encounter Note* Telephone Encounter - Alexis Grace DPM - 04/04/2025 8:42 AM EDT Nail specimen consistent with onychomycosis. Liver enzyme test ordered and sent to [facility]. Thank you. [facility] Rehabilitation [id number] Miscellaneous Notes* Telephone Encounter - Alexis Grace DPM - 04/04/2025 8:42 AM EDT Nail specimen consistent with onychomycosis. Liver enzyme test ordered and sent to [facility]. Thank you. documented in this encounterRusk Rehabilitation [id number] History of Present illness Narrative* Alexis Grace, BRUNO - 03/28/2025 2:30 PM EDT Images from the original note were not included. Subjective Patient ID: Joselito Vidal is a 54 y.o. 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 She is alsoconcerned about a painful lesion on the lateral aspect of the left 5th metatarsal head. Her primarycare physician told her that it was a [...] past medical history. Medications Current Outpatient Medications: bqrdqfyfki-ggllmtpbiyfcb-cmrcyfwr 50-325-40 MG tablet, Take 1 tablet by [...] the morning and 2.5 mg in the eveningand 2.5 mg before bedtime., Disp: , Rfl: pantoprazole (ProtoNix) 20 MG EC tablet, Take 20 mg by mouth in the morning. Take before meals. Do not crush, chew, or split., Disp: , Rfl: tiZANidine (Zanaflex) 4 MG capsule, Take 4 mg by mouth in the morning and 4 mg in the evening and 4mg before bedtime., Disp: , Rfl: topiramate (Topamax) [...] by mouth Daily (Patient not taking: Reported on03/28/2025), Disp: , Rfl: Allergies Patient has no [...] 4th toenail. There is yellow/brown discoloration, crumbly texture,subungual debris. Tenderness with manipulation of the toenails. [...] therapy. A nail nipper and electric bur lens grinder apprentice were also utilized to debride the affected nails to help reduce fungal load and to palliate the symptomatic nails. I will review the nail specimen and if there is fungal disease presentI will order liver enzyme tests to [facility] in [place] to ensure adequate liver function prior to beginning oral antifungal therapy. When I receive these results I will prescribe oral antifungal therapy ifappropriate. Additionally she has a lesion which seems to be clinically consistent with a plantar wart on the left foot. I discussed treatment options and recommended initial treatment with debridement and chemical cauterization of the verrucous tissue. Informed consent was obtained. Utilizing a sterile #15 blade I debrided all hyperkeratotic tissue surrounding the lesion down to pinpoint bleeding at the baseof the verrucous tissue. One 30 second application [...] understanding. Alexis Grace DPM documented in this encounterRusk Rehabilitation [id number] History of Present illness Narrative* Martin Larios MD - 11/30/2024 12:30 PM EDT [facility] Cardiology Office Follow-up: Dizziness, Syncope, Follow-up, [...] Martin Larios MD Director of Interventional Cardiology [facility] [place] [facility] documented in this [facility] Work Phone: 1(454) 549-465603-20-2025 Miscellaneous Notes* Post-Procedure Note - Scott Bridges MD - 11/16/2024 10:00 AM EDT Physician Transition of Care Summary Invasive Cardiovascular Lab Procedure Date: 11/16/2024 Attending: * No surgeons found in log * Resident/Fellow/Other Biometrics Technician: * No surgeons found in log [...] lightheadedness, suggestive of postural orthostatic tachycardia syndrome -POTS. No hypotension, bradycardia or syncopal episode. No [...] MD, 11/16/2024 2:14 PM documented in this encounterUC Health Work Phone: 1(425) 383-672203-20-2025 Surgery Postoperative evaluation and management note* Post-Procedure Note - Scott Bridges MD - 11/16/2024 10:00 AM EDT Physician Transition of Care Summary Invasive Cardiovascular Lab Procedure Date: 11/16/2024 Attending: * No surgeons found in log * Resident/Fellow/Other Biometrics Technician: * No surgeons found in log [...] lightheadedness, suggestive of postural orthostatic tachycardia syndrome -POTS. No hypotension, bradycardia or syncopal episode. No [...] by: Scott Bridges MD, 11/16/2024 2:14 PM [facility] Work Phone: [phone]) 388-662803-18-2025 NotePatient Education Nephrology Dietary Guidelines to Help Prevent [...] labels. Limit your salt (sodium) intake to lessthan 1,500 mg a day. ??? Choose foods with calcium for each meal and snack. Try to eat about 300 mg of calcium at each meal. Foods that contain 200?500 mg of calcium a serving include: ? 8 oz (237 mL) of milk, hgjaprm-zkkfwzvtcvno-qzejt milk, and calcium- fortifiedfruit juice. Calcium-fortified means that calcium has been [...] on the table and allow each person toadd their own salt to taste. ??? Use [...] Spinach (cooked), rhubarb, beets, sweet potatoes, and Cameroonian chard. ? Peanuts. ? Potato chips, tunisian fries, and baked potatoes with skin on. ? Nuts and nut products. ? Chocolate. ??? If you regularly take a diuretic medicine, make sure to eat at least 1 or 2 servings of fruits or vegetables that are high in potassium each day. These include: ? Avocado. ? Banana. ? [place], prune, carrot, or tomato juice. ? Baked potato. ? Cabbage. ? Beans and split peas. Lifestyle ??? Drink enough fluid to keep your urine pale yellow. This is the most important thing you can do.Spread your fluid intake throughout the day. ??? [...] fish oil, or vitamin B6. ??? Take cuns-tmt-vctiena and prescription medicines only as told by your health (more content not included)...[facility]02-24-2025 Note Progress Note-Physician Patient: JOSELITO VIDAL Age: 53 years Sex: Female : 1970 Associated Diagnoses: None Author: Hernandez Billings MD Postoperative Information Postoperative disposition: Postoperative disposition: To PACU. Optimetrix number: Optimetrix number [id number]. Anesthetic utilized: General. Health Status Allergies: Allergic Reactions (Selected) No Known Medication Allergies Physical Examination VS/Measurements Pain Assessment: Controlled. General: Awake, Appropriate. Respiratory: Adequate air exchange. Cardiovascular: Stable. Neurological Assessment Anesthetic outcome No anesthetic complications noted. Adequate pain relief. Review / Management Condition: Stable. Plan Transfer/Discharge: Transfer/Discharge Discharge when meets criteria ( To home ).[facility] DaytonComment on above:Result Comment: Electronically Signed By: Hernandez Billings MD\.br\Date and Time Signed: 10/23/24 15:11 EST 10-23-2024 NoteProgress Note-Physician Patient: JOSELITO VIDAL Age: 53 years Sex: [...] mL, IV, 150 mL/hr, Routine, Start date 10/19/2510:00:00 EST, 6.7 hour(s), Total volume (mL): 1,000, [...] Daily, # 10 cap(s), Refills(s) 0, Pharmacy: [facility], 157, cm, 10/12/24 13:52:00 EST, Height/Length Dosing, 116, kg, 10/12/24 13:52:00 EST, Weight Dosing Levsin 0.125 mg SL Tab: 0.125 mg = 1 tab(s), Oral, QID, PRN for spasm, # 40 tab(s), Refills(s) 0, Pharmacy: [facility], 157, cm, 10/12/24 13:52:00 EST, Height/Length Dosing, 116, kg, 10/12/24 13:52:00 EST, Weight Dosing Roxicodone 5 mg Tab: 5 mg = 1 tab(s), Oral, q6hr, PRN for pain, # 6 tab(s), Refills(s) 0, Pharmacy:[facility], 157, cm, 10/12/24 13:52:00 EST, Height/Length Dosing, 116, kg, 10/12/2512:52:00 EST, Weight Dosing Documented Medications Documented Esgic [...] solution: 3 mg, SubCutaneous, qWeek, weight loss, Refills(s)0, Other (see comment) Zofran 4 mg Tab: [...] All Problems Apnea, sleep / SNOMED CT [id number] / Confirmed Arthritis of right kne (more content not included)...[facility] Comment on above:Result Comment: Electronically Signed By: Manuelito RAMIREZ, Hernandez Leavitt\.br\Date and Time Signed: 10/23/24 15:07 [id number] Hospital Discharge instructions Patient Education 10/19/2024 13:35:23 Yfne-Piyx-yw Utereroscopy,Lithotripsy, Stone Extraction, Stent Placement (CUSTOM) [facility] [place], [place] Dr. Bradford Hagen Post-operative Instructions for Ureteroscopy, Laser Lithotripsy, Stone Extraction and Stent Placement There are no incisions or dressings to be concerned with, as the procedure was performed inside theurinary system. For 24 hours after surgery: No [...] stent. Your diet and fluid intake may makeirritation from the stent worse. Activity You may [...] arrange for your post-operative appointment (with XRAY) [phone] 10/19/2024 13:35:17 Post Op Patient Instructions - FT (CUSTOM) Follow Up Care 10/09/2024 12:57:24 With:YESENIA YUSUF Address: [address] [place] [address] [phone] Business (1) When: Unknown Comments:6 WKS WITH GERRY AGUIAR [facility] 02-20-2025 NotePatient Education - Text [facility] [place], [place] Dr. Bradford Hagen Post-operative Instructions for Ureteroscopy, Laser Lithotripsy, Stone Extraction and Stent Placement There are no incisions or dressings to be concerned with, as the procedure was performed inside theurinary system. For 24 hours after surgery: ??? [...] other reasons. 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 Diet You may resume your normal diet, but you may want to start slowly and avoid spicy food, caffeine, carbonated beverages and alcohol, especially if you have a stent. Your diet and fluid intake may makeirritation from the stent worse. Activity You may [...] including your antibiotics. You may also be givena prescription for pain medicine or medicines to [...] arrange for your post-operative appointment (with XRAY) [phone] [facility]02-10-2025 Hospital Discharge instructions Patient Education 10/09/2024 11:38:44 [...] including vitamins, herbs, eye drops, creams, and dhkn-iqd-tqwxvgl medicines. Any problems you or family members [...] These include any diabetes medicines or blood thinnersyou take. Taking medicines such as aspirin and ibuprofen. These medicines can thin your blood. Do not take these medicines unless your health care provider tells you to. Taking pbjs-cyf-wcqbslw medicines, vitamins, herbs, and supplements. General instructions Do not use any products that contain nicotine or tobacco for at least 4 weeks before the procedure.These products include cigarettes, chewing tobacco, and vaping [...] blood oxygen level will be monitored until youleave the hospital or clinic. It is up [...] provider. Document Revised: 07/19/2023 Document Reviewed: 07/19/2023 [employer] Patient Education 2023 Standard [employer]. Follow Up Care 10/06/2024 15:52:25 With:TREVOR RAMIREZ, DEAN PATTERSON Address: When: Unknown [facility] 02-10-2025 NotePatient Education Urology Ureteroscopy Ureteroscopy is a procedure [...] including vitamins, herbs, eye drops, creams, and swbh-sky-fxgurmt medicines. ??? Any problems you or family [...] of your body that drains urine from yourbladder (urethra), your bladder, or your uterus. What [...] care provider tells you to. ??? Taking ngbd-auq-srjmfdg medicines, vitamins, herbs, and supplements. General instructions [...] happens after the procedure? (more content not included)...[facility]12-11-2024 History of Present illness Narrative* Mohittonyclemente Palacios, - 08/09/2024 3:30 PM EST Images from the original note were not included. Chief complaint: Back pain Subjective Joselito Vidal, 53 y.o., female Patient presents today for a follow up for impaired ambulation and lumbosacral spondylosis. Patientwent to pain management in [place] and states they were not able to manage her pain so she wantedto come back. She states they only did injections with her and they do not last. She wanted her PCPto put her on Humira but she told her she does not handle that medication. Patient ambulates with a walker or cane. She states she is unable to cook standing up, she needs to sit on her walker. 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 She cannot walk long distances [...] , wrist extensors , wrist flexor , tare man strength 5/5. LUE Strength deltoid , biceps , triceps , wrist extensors , wrist flexor , tare man strength 5/5. RLE Strength illopsoas, quadriceps, tibialis [...] sensation intact in distal extremities. Cerebellar Function: Nivyay-tc-Nnaq Normal. Gait and Station: Gait Ambulates with [...] patient was reportedly evaluated by surgery and det ermined not to be a surgical candidate. Physical therapy worsened the patient's symptoms, so she discontinued this. She has trialed and failed gipi-lzc-gutbugi medication with ibuprofen and Tylenol at appropriate [...] has been previously seen pain management in [place] but is unable to access them as regularly as needed. Polypharmacy The patient is still on an extensive list of medications. 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 She states many of these have been ineffective. We did discuss the highrisk of adverse effects, dependency, and overdose with some of these medications in detail. The patient verbalizes understanding. She reports taking medications only as prescribed. PLAN: - We are referring her to pain management, Dr Matamoros, to further help manage her chronic pain. She was previously seen pain management in [place] but with driving so far and with injections lasting so sure she is having difficulty getting there as frequently is as needed. Pt has been fully educated on their diagnosis, lab results, treatment options, follow up plan, return instructions, and discussion of mental health issues documented in this encounterRusk Rehabilitation [id number] History of Present illness Narrative* Martin Larios MD - 07/31/2024 2:15 PM EST Patient presents for cardiovascular evaluation in the [place] office at the request of AMARILIS Schmidt for the following: Chief Complaint: New Patient Visit HISTORY OF PRESENT ILLNESS: Joselito Vidal is a 53 y.o. female with prior cardiac history of POTS. Other pertinent medical history includes spinal stenosis. Patient reports symptoms of feeling overheated and dizzy. Off balance, was seen at [facility]. Was diagnosed with POTS clinically. Started on metoprolol. Holter subsequently. In general patient reports pain. Palpitations, hot, dizzy. Food can trigger. Getting up quickly. Nosyncope, but has had near syncope. Patient decribes no chest pain. 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 The patient also reports [...] testing Martin Larios MD documented in this [facility] Work Phone: 1(224) 498-922406-18-2024 History of Present illness Narrative* Patricia Walker MD - 02/15/2024 2:00 PM EDT Joselito Vidal (1970) 02/15/2024 Subjective: Joselito Vidal is 53 y.o. female who complains today of low back pain She has been tolerating Topamax without any problems. No vision changes, headaches, kidney stones, flank pain, dysuria, fatigue, lethargy, vomiting, confusion, suicide or homicidal ideation, or any other adverse effects. She did not see pain psychology. EMG done at outside facility, reviewed below.No updates from spine surgery. Bilateral lumbar L2 L3-L4-L5 medial branch blocks on 12/23/2023 provided greater than 80% short-term pain relief with a positive diagnostic response. Second diagnostic bilateral lumbar L2 L3-L4-L5 medial branch blocks on 02/01/2024 provided greater than 80% short-term pain relief with a positive diagnostic response. Given her positive diagnostic response to dual lumbarmedial branch blocks, recommendations given for lumbar radiofrequency ablation, done today, see separate procedure note. Lumbar epidural injection not done. She did not get pain psychology evaluationfor spinal cord stimulation. Doing physical therapy and aquatic therapy at [facility]. No other test therapy or updates [...] undergoing pain management modalities which do help. Thatpain management physician will not prescribe analgesics. Patient [...] spine surgery. EMG BLE 06/01/2023 Dr. Dario Palacios [facility]: Chronic right S1 radiculopathy mild, no polyneuropathy. MRI L-spine 06/18/2023: Degenerative's disease and facet arthropathy. Anterolisthesis L4 and L5, retrolisthesis L5 on S1. No fractures. T12-L1 disc bulge, normal canal foramen. L1-L2, L2-L3, L3-L4 nostenosis. L4-L5 potential synovial cyst on the left, up to severe canal stenosis, mild right and upto moderate left foraminal impingement. L5-S1 normal canal, [...] Refill: 0 Orders Placed This Encounter Procedures CA DSTR NROLYTC AGNT PARVERTEB FCT SNGL LMBR/SACRAL [...] evaluation -Reviewed EMG B LE above from [facility], all questions answered -Will [...] cord stimulation at this time, previously given [employer] information, Psych for evaluation on hold. -Underwent [...] and stress-response dysfunction, fat necrosis, skin pigmentation changes,blood sugar elevation, headache, vision changes, need for [...] the course of any underlying disease. The patientappears to be a good candidate for the above recommended procedures, but no guarantees expressed orimplied are given regarding the outcome of any procedure. After thorough discussion, patient expressed understanding and willingness to proceed. Provided education and counseling regarding the diagnosis, prognosis, and treatment options. All questions were answered. Encouraged her to follow-up with her primary care physician and/or specialists as required for her overall health and management of her comorbidities as well as any new positivesymptoms mentioned in review of systems above. Care [...] program. All recommendations for medications are meant tohelp decrease pain, improve function with activities of daily living, maintain compliance with homeexercise program, and improve quality of life. All [...] previously recommended by us or other medical voucher clerk. Risks of not pursing these recommendations were [...] No follow-ups on file. Patricia Walker MD * Patricia Walker MD - 02/15/2024 2:00 PM EDT This procedure was 60% more difficult and required 60% more work secondary to the patient's habitus. The patient has a BMI of 49.4. This required increased work for safe and proper positioning upon the fluoroscopy table, increased needle passes for safe and appropriate needle placement, and increased fluoroscopy time and radiation exposure for proper visualization. * Patricia Walker MD - 02/15/2024 2:00 PM EDT Lumbar Radiofrequency Ablation/Neurotomy Patient Name: Joselito Vidal : 1970 Date: 02/15/2024 Provider: Patricia Walker MD Joselito Vidal is here today for interventional pain management. Preoperatively, the patient presents with symptoms and physical exam findings consistent with lumbar facet zygapophyseal joint mediated pain. She has had persistent pain that limits her function and activities of daily living. The pa in is persistent despite conservative measures. She has [...] structures, post-ablation neuritis, worsened paresthesias, side effects, toxici ty, allergic reactions to medications used, immune and [...] in the chart. Verbal consent to proceed wasobtained. Standard ASIPP guidelines were followed and sterile technique used. The patient was positioned prone on the procedure table. Area was cleaned with Betadine three times. Fluoroscopic guidance was usedfor this procedure. Multiple views of fluoroscopy were used during procedure to assist with needle placement. The L5 vertebral body was taken as the first lumbar-appearing vertebral body directly above the sacrum on a lateral view. Appropriate oblique and declined views were obtained to open up thesulcii for the medial branch blocks and/or dorsal rami as appropriate. Then three 15 cm 20 gauge 10mm active tip radiofrequency cannulas were used and [...] at each level, SIS approach and extended timewere utilized, temperature adjustment was performed. Patient tolerated the procedure well, no obvious complications occurred during the procedure. Patient was appropriately monitored and discharged home in stable condition with their usual motor strength. Post-procedure instructions were given to the patient. She was advised that her blood sugars mayincrease after today's procedure. She will return for opposite side radiofrequency ablation in two weeks. [] Bilateral [] L1 [x] L2 [x] Right [x] L3 [x] L4 [] Left [x] L5 [address], [address], [place] [address] / [facility] History of Present illness Narrative* Naima Jose L Bates, OFFAL ROLLER-INVENTORY CONTROL/SHIPPING RECEIVING - 01/19/2024 10:00 AM EDT Images from the original note were not included. Joselito Vidal is a 53 y.o. 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 Hysterectomy: no She [...] spot. She was then seen by a sharepoint engineer for an areaon her face and told him about the [...] Past Medical History: Diagnosis Date Diabetes mellitus ([facility]) Hypertension POTS (postural orthostatic tachycardia [...] postmenopausal, is stopping POPs. 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 AMARILIS Meek APRN-CNP 01/19/24 1537 [facility] Miscellaneous Notes* Telephone Encounter - AMARILIS Meek - 01/02/2024 5:53 PM EDT Patient needs annual (12/15/22). One refill sent. Please call and get her scheduled. Thank you. * Telephone Encounter - Valeria Santiago - 01/02/2024 5:53 PM EDT Pt has Annual scheduled for January 18. [facility] Telephone encounter Note* Telephone Encounter - AMARILIS Meek - 01/02/2024 5:53 PM EDT Patient needs annual (12/15/22). One refill sent. Please call and get her scheduled. Thank you. [facility]05-05-2024 Telephone encounter Note* Telephone Encounter - Valeria Santiago - 01/02/2024 5:53 PM EDT Pt has Annual scheduled for January 18. [facility]04-17-2024 Miscellaneous Notes* Telephone Encounter - AMARILIS Meek - 12/15/2023 11:30 AM EDT Patient due for annual (12/15/22). One refill sen. * Telephone Encounter - Valeria Santiago - 12/15/2023 11:30 AM EDT Pt has Annual exam scheduled for January 18. [facility]24 Telephone encounter Note* Telephone Encounter - AMARILIS Meek - 12/15/2023 11:30 AM EDT Patient due for annual (12/15/22). One refill sen. [facility] Telephone encounter Note* Telephone Encounter - Valeria Santiago - 12/15/2023 11:30 AM EDT Pt has Annual exam scheduled for January 18. [facility] Evaluation note* Encounter Date Diagnosis Assessment Notes Treatment Notes Treatment Clinical Notes Mar, Chest congestion (ICD-10 - R09.8 9) Discussed diagnosis with patient today in office. Advised patient that there are no acute findings present today on exam. Advised patient that these are likely chronic issues that should be discussedby her PCP. Advised patient that she may benefit from pulmonology referral, or work-up for COPD. Advised patient that I will send Rx of steroid, albuterol inhaler to use as directed. Encouraged use of OTC Zyrtec/Claritin daily. Recommended patient follow-up over to [facility] for follow-up appointment with PCP to discuss next steps. Patient verbalizes understanding and is agreeable with treatment plan [facility] 06-06-2023 Evaluation note* Encounter Date Diagnosis Assessment Notes Treatment Notes Treatment Clinical Notes Jan, Prediabetes (ICD-10 - R73.03) Jan,ody mass index (BMI) of 45.0-49.9 in adult (ICD-10 - Z68.42) Jan,Hypertension (ICD-10 - I10) Jan,Obstructive sleep apnea (ICD-10 - G47.33) Jan,nee osteoarthritis (ICD-10 - M17.9) Jan,Metabolic syndrome X (ICD-10 - E88.81) [facility] 04-26-2023 Evaluation note* Encounter Date Diagnosis Assessment Notes Treatment Notes Treatment Clinical Notes Nov, Obstructive sleep apnea (ICD-10 - G47.33) Nov,Morbid (severe) obesity due to excess calories (ICD-10 - E66.01) [facility] 04-19-2023 Evaluation note* Encounter Date Diagnosis Assessment Notes Treatment Notes Treatment Clinical Notes Nov, Obesity (ICD-10 - E66.9) Nov,MI 45.0-49.9, adult (ICD-10 - Z68.42) Nov,OtherSummary of Visit: (A) smoothie ideas (B) reviewed plate method and discussed meal ideas for dinner (C) protein ideas to increase protein at breakfast and lunch AND SNACKS Patient set the following goals: - explore exercise options: [employer], [employer], and home execises; PARTIALLY MET - add more veggies - PARTIALLY MET [facility] 04-17-2023 Evaluation note* Encounter Date Diagnosis [...] to help slow down the digestion of otherconcentrated sugars even though it is from a [...] getting a brace soon for her knee. 17 Nov, 2022Essential hypertension (ICD-10 - I10)Blood pressure has been well controlled in office with her current medication regimen. Hopefully with some weight loss, better diet and incorporation of physical activity these numbers can continue the improved. Nov,hronic pain (ICD-10 - G89.29)Encouraged her to continue to work with her PCP for pain management but also reinforced that physical activity is very important in keeping moving in addition to weight loss goals. Increase activity as tolerated. 17 Nov, 2022Sleep apnea (ICD-10 - G47.30)She has papers just needs to schedule her sleep study at this point in time. We will follow. Nov,Other low back pain (ICD-10 - M54.59) Nov,rediabetes (ICD-10 - R73.09)Initial A1c was 6.1 starting with us in September. Could recheck at follow-up to assess progress andclinical course. 17 Nov,epression (ICD-10 - F32.9) Nov,aytime sleepiness (ICD-10 - R40.0) Nov,Spinal stenosis (ICD-10 - M48.00) 17 Nov, 2022Impaired fasting glucose (ICD-10 - R73.01) Nov,Encounter for weight management (ICD-10 - Z76.89) [facility] 04-04-2023 Evaluation note* Encounter Date Diagnosis Assessment Notes Treatment Notes Treatment Clinical Notes Nov, Obesity (ICD-10 - E66.9) Nov,MI 45.0-49.9, adult (ICD-10 - Z68.42) Nov,OtherSummary of Visit: (A) ideas for easy lunch (B) reviewed plate method and encouraged fiber foods (C) protein ideas to increase protein at breakfast and lunch Patient set the following goals: - NEW: explore exercise options: [employer], [employer], and home execises - NEW: add more veggies [facility] 03-11-2023 Evaluation note* Encounter Date Diagnosis Assessment Notes Treatment Notes Treatment Clinical Notes Oct, Contact dermatitis, unspecified contact dermatitis type, unspecified trigger (ICD-10 - L25.9) Unsure of what is causing reaction; it is often the case with rashes and reactions. OTC Zyrtec may help with symptoms. Recommend using unscented sensitive skin products for a few weeks as system willbe more sensitive than normal. Recommend follow up with primary care provider or dermatology if rash does not clear with treatment. Use medication as directed and take with food to prevent stomach upset. Oct,Right hip pain (ICD-10 - M25.551)Continue meds and warm packs. hip pain may be exacerbated by knee [facility] 03-07-2023 Evaluation note* Encounter Date Diagnosis Assessment Notes Treatment Notes Treatment Clinical Notes Oct, Acute pain of right knee (ICD-10 - M25.561) Oct,rthritis of right knee (ICD-10 - M17.11)Osteoarthritis home care material was printed Drink plenty fluids, get plenty of rest. Take the Medrol Dosepak as prescribed until gone. Continuehome medications as prescribed. Follow-up with your orthopedic physician if no improvement in 2 to 3 days. [facility] 03-03-2023 Evaluation note* Encounter Date Diagnosis [...] routine Strongly encouraged to connect with our guard chief for exercises she is able to do at home at her own pace and within her limitations of pain. Oct,Essential hypertension (ICD-10 - I10)Our initial goals of 5 to 10% weight loss should help improve her hypertension and comorbidities associated with this disease. Oct,hronic pain (ICD-10 - G89.29)She recently started working with her PCP on titrating to medications to help control her pain as she felt pain management did not help her in the past. We again discussed the weight positive effectsof some of the medication including pregabalin amitriptyline. Everything is risk and benefit but something to consider Oct,Sleep apnea (ICD-10 - G47.30)Previous confirmation of sleep apnea a few years [...] We will perform surveillance t/o our visits. Oct,Other low back pain (ICD-10 - M54.59) Oct,rediabetes (ICD-10 - R73.09)Victoza is twofold benefit medication for this patient as it is helping with both glucose control and weight improvement. We will continue to monitor A1c every 3 months last one was 6.1 on 09/30/2022Oct,epression (ICD-10 - F32.9) Oct,aytime sleepiness (ICD-10 - R40.0)Continue to work on good sleep hygiene in addition to incorporating some type of physical exercise during the day. Hopefully with some better food choices under the guidance of the dietitian her blood sugar spikes and crashes will be less and also improve her daytime fatigue. Oct,Spinal stenosis (ICD-10 - M48.00) Oct,Impaired fasting glucose (ICD-10 - R73.01) Oct,Encounter for weight management (ICD-10 - Z76.89) [facility] 03-02-2023 Evaluation note* Encounter Date Diagnosis Assessment Notes Treatment Notes Treatment Clinical Notes Oct, LACEY (generalized anxiety disorde r) (ICD-10 - F41.1) continue medication as discussed. Oct,Insomnia, unspecified type (ICD-10 - G47.00)continue current treatment Oct,Osteoarthritis of lumbosacral spine (ICD-10 - M47.817)follow treatment changes as discussed. Oct,Other spondylosis with radiculopathy, lumbar region (ICD-10 - M47.26)Follow treatment changes as discussed Oct,hronic pansinusitis (ICD-10 - J32.4)Take medication as directed. [facility] Other 02-07-2023 Evaluation note* Encounter Date Diagnosis Assessment Notes Treatment Notes Treatment Clinical Notes Sep, Obesity, unspecified classification, unspecified obesity type, unspecified whether serious comorbidity present (ICD-10 - E66.9) Sep,MI 45.0-49.9, adult (ICD-10 - Z68.42) Sep,OtherSummary of Visit: (A) Presentation of Plate Method discussed (B) Sample meal ideas reviewed (C) exercise recommendations reviewed Patient set the following goals: - patient set personal goal using given handout. [facility] 02-02-2023 Evaluation note* Encounter Date Diagnosis Assessment Notes Treatment Notes Treatment Clinical Notes Sep, Subacute cough (ICD-10 - R05.2) Sep,Walking pneumonia (ICD-10 - J18.9)Take medications as directed. Rest and increase fluid [...] weeks for the cough to go away Sep,AD (generalized anxiety disorder) (ICD-10 - F41.1)Continue current treatment program [facility] 02-01-2023 Evaluation note* Encounter Date Diagnosis Assessment Notes Treatment Notes Treatment Clinical Notes Sep, Obesity (ICD-10 - E66.9) Findings consistent with obesity. Patient understands that this increases risk of multiple comorbidities associated with weight gain especially if there is a genetic predisposition. Discussed the complexity behind obesity and its multifactorial causes including genetics, the biological changes thatoccur with processed foods as well as lack of physical activity. We will assess for underlying causes of abnormal weight gain including thyroid dysfunction, poor sleep, medications, diet, etc. Discussed importance of adopting a healthier lifestyle in order to decrease or eliminate risk of impendingdiseases associated with excessive weight. Initial goal of [...] discuss other options through menopause with her ASSISTANT HAIRSTYLIST. Optimize sleep quality and quantity using good sleep hygiene Sep,Essential hypertension (ICD-10 - I10)Patient has history of hypertension. Blood pressure reading within normal limits today. Treat with low- salt diet, decreased processed and restaurant foods, healthy [...] decreasing or eliminating BP medications as appropriate. Sep,hronic pain (ICD-10 - G89.29)Patient admits to arthritis pain pain likely exacerbated/secondary to increased weight. Treat with exercise incorporating low impact exercises or modifications as needed. Advised to that there are multiple different exercise programs available many of which can be done within the home that requiredlittle to no impact. Encouraged swimming as feasible. Slowly increase activity over time to reach goal of 30 minutes most days of the week. Encouraged to take advantage of guard chief millicent holman at [facility] that can help work around limitations. Sep,Sleep apnea (ICD-10 - G47.30)Patient has had sleep study and diagnosis of [...] importance to help prevent related comorbidities. Treat withweight loss with a goal of less positive pressure needed. Pt understands that even with moderate weight loss, often a positive pressure device may still be necessary. We will perform surveillance t/oour visits. Sep,Other low back pain (ICD-10 - M54.59) Sep,rediabetes (ICD-10 - R73.09) Sep,epression (ICD-10 - F32.9) Sep,aytime sleepiness (ICD-10 - R40.0)Encouraged good sleep hygiene by going to bed at approximately the same time each night and similarwaking hours each day, not eating too close to bedtime, avoid excessive fluids and eating shortly before bed, turning off blue light on phone/computers, silencing notifications, etc. Fatigue during the day could also be related to blood sugar spikes and subsequent crashes related to poor dietary habits of high glucose or high carbohydrate meals and snacks. Increase water intake. Sep,Spinal stenosis (ICD-10 - M48.00) Sep,Impaired fasting glucose (ICD-10 - R73.01)Due to impaired fasting glucose we did recheck [...] prevent diabetes. Consider metformin or GLP-1 agonist. [facility] Other 01-22-2023 Evaluation note* Encounter Date Diagnosis Assessment Notes Treatment Notes Treatment Clinical Notes Aug, Contact with and (mo spected) exposure to other viral communicable diseases (ICD-10 - Z20.828) Aug,Laryngitis (ICD-10 - J04.0)Laryngitis home care material was printed Drink plenty fluids, get plenty of rest. Take the prednisone as prescribed until gone. Continue home medications as prescribed. Follow-up with your family physician if no improvement in 2 to 3 days [facility] Other 01-16-2023 Evaluation note* Encounter Date Diagnosis Assessment Notes Treatment Notes Treatment Clinical Notes Aug, Left acute otitis media (ICD-10 - H66.92) Take medication as directed. Complete all doses at this time. May use TYlenol and warm packs for comfort Aug,Urine retention (ICD-10 - R33.9)Recommend follow up with urology as discussed, especially if any more urine retention occurs as many complications can occur. Aug,Hypokalemia (ICD-10 - E87.6)Complete potassium tablets as prescribed from ER doctor then have labs rechecked the day after [facility] Other 01-12-2023 Evaluation note* Encounter Date Diagnosis Assessment Notes Treatment Notes Treatment Clinical Notes Aug, Urine retention (ICD-10 - R33.9) very concerned patient is having symptoms of neurogenic bladder due to symptoms occuring after a recent fall. Recommend patient go to ER due to inability to urinate and she has not urinated since yesterday evening. [facility] Other 12-29-2022 Evaluation note* Encounter Date Diagnosis Assessment Notes Treatment Notes Treatment Clinical Notes Jul, LACEY (generalized anxiety disorde r) (ICD-10 - F41.1) Jul,ther low back pain (ICD-10 - M54.59) Jul,Insomnia, unspecified type (ICD-10 - G47.00) Jul,ther spondylosis with radiculopathy, lumbar region (ICD-10 - M47.26) MME is 9.7 per day and OARRS is checked. Jul,kin lesion (ICD-10 - L98.9) [facility] Other 12-19-2022 Evaluation note* Encounter Date Diagnosis Assessment Notes Treatment Notes Treatment Clinical Notes Jul, Other spondylosis wi th radiculopathy, lumbar region (ICD-10 - M47.26) [facility] Other 12-01-2022 Evaluation note* Encounter Date Diagnosis Assessment Notes Treatment Notes Treatment Clinical Notes Jul, DDD (degenerative disc disease), lumbar (ICD-10 - M51.36) Continue treatment regimen Jul,Facet arthritis of lumbar region (ICD-10 - M47.816) OARRS checked and patient is compliant. MED is 0. and No more than MAX 10MED per day when taken as prescribed. Jul,hronic pansinusitis (ICD-10 - J32.4)Start medication and if this doesn't work then we may discuss seeing ENT [facility] Other 11-21-2022 Evaluation note* Encounter Date Diagnosis Assessment Notes Treatment Notes Treatment Clinical Notes Jun, Left otitis media with effusion (ICD-10 - H65.92) Jun,Thrush (ICD-10 - B37.0) Jun,DD (degenerative disc disease), lumbar (ICD-10 - M51.36) [facility] 11-03-2022 Evaluation note* Encounter Date Diagnosis Assessment Notes Treatment Notes Treatment Clinical Notes Jun, Sore throat (ICD-10 - J02.9) Jun,ontact with and (suspected) exposure to other viral communicable diseases (ICD-10 - Z20.828)Your Covid PCR test is negative. This means at this time you do not have COVID. Jun,Lumbar degenerative disc disease (ICD-10 - M51.36)Sent over referral as requested. Recommend to get records from neurosurgeon to them Jun,ilateral acute otitis media (ICD-10 - H66.93)Already sent over medication this morning. If symptoms persist, call office and we will send referal [facility] Other 10-31-2022 Evaluation note* Encounter Date Diagnosis Assessment Notes Treatment Notes Treatment Clinical Notes May, Other spondylosis wi th radiculopathy, lumbar region (ICD-10 - M47.26) Patients [...] is in agreement with our treatment plan. May,steoarthritis of lumbosacral spine (ICD-10 - M47.817) May,hronic pain (ICD-10 - G89.29) May,therAbove note written by Javed Arreola MA, Boat Carpenter. Edited and approved by Dr. Pop Blandon MD. [facility] Other 10-27-2022 Evaluation note* Encounter Date Diagnosis [...] care provider if no improvement of symptoms. May,GAD (generalized anxiety disorder) (ICD-10 - F41.1)Added as needed medication as discussed. [facility] Other 09-26-2022 Evaluation note* Encounter Date Diagnosis Assessment Notes Treatment Notes Treatment Clinical Notes Apr, Mild episode of recu rrent major depressive disorder (ICD-10 - F33.0) Increase medication as discussed. will follow up in a few weeks to see if it is helping. Apr,Fatigue, unspecified type (ICD-10 - R53.83)ordered labs as discussed today in office to discussed. Apr,Morbid (severe) obesity due to excess calories (ICD-10 - E66.01) Referral being sent to weight management as I am not able to prescribe Ozempic for weight loss Apr,ody mass index [BMI] 40.0-44.9, adult (ICD-10 - Z68.41) [facility] Other 09-26-2022 Evaluation note* Encounter Date Diagnosis Assessment Notes Treatment Notes Treatment Clinical Notes Apr, Mild episode of recu rrent major depressive disorder (ICD-10 - F33.0) Increase medication as discussed. will follow up in a few weeks to see if it is helping. Apr,Essential hypertension (ICD-10 - I10)Continue medication at this time. Apr,Fatigue, unspecified type (ICD-10 - R53.83)ordered labs as discussed today in office to discussed. Apr,Morbid (severe) obesity due to excess calories (ICD-10 - E66.01) Referral being sent to weight management as I am not able to prescribe Ozempic for weight loss Apr,ody mass index [BMI] 40.0-44.9, adult (ICD-10 - Z68.41) [facility] Other 09-22-2022 Evaluation note* Encounter Date Diagnosis Assessment Notes Treatment Notes Treatment Clinical Notes Apr, Lumbar degenerative disc disease (ICD-10 - M51.36) Keep upcoming appointments with pain management appointments and neurosurgery appt as discussed. Apr,cute non-recurrent frontal sinusitis (ICD-10 - J01.10)Take medication as directed. Recommend taking OTC Zyrtec or allergy until after harvest season [facility] Other 08-29-2022 Evaluation note* Encounter Date Diagnosis Assessment Notes Treatment Notes Treatment Clinical Notes Mar, Essential hypertension (ICD-10 - I10) Refilled medication as needed. Mar,Mild episode of recurrent major depressive disorder (ICD-10 - F33.0) Increased dose as discussed. Patient has some life challenges going on in life, but overall has positive outlook Mar,Follow-up exam (ICD-10 - Z09)Discussed all test results in office today and what further steps are needed. Patient states understanding. [facility] Other 08-24-2022 Evaluation note* Encounter Date Diagnosis Assessment Notes Treatment Notes Treatment Clinical Notes Mar, DDD (degenerative disc disease), lumbar (ICD-10 - M51.36) Mar,ther spondylosis with radiculopathy, lumbar region (ICD-10 - M47.26)Patient voices minimal complaints of pain at this time following a recent lumbar epidural steroid injection. We will continue to montior and proceed with future treatment to the area as needed. In the meantime, given reasonable improvement wih gabapentin, we will trial an increase the patients Gabapentin to 600 MG TID. She was instructed to increase gradually as tolerated. OARRS was processed andreviewed, no discrepencies. We will follow up with the patient in one month for re-evaluation, sooner if needed. Anatomy of spine discussed in detail with patient in regards to patients condition. Overall, patient believes their pain is reasonably well controlled and she is in agreement with our daya atment plan. Mar,hronic pain (ICD-10 - G89.29) Mar,therAbove note written by Javed Arreola CMA, Boat Carpenter. Edited and approved by Dr. Pop Blandon MD. [facility] Other 08-18-2022 Evaluation note* Encounter Date Diagnosis Assessment Notes Treatment Notes Treatment Clinical Notes Mar, Strain of lumbar region, initial encounter (ICD-10 - S39.012A) [employer] Other 08-08-2022 Evaluation note* Encounter Date Diagnosis Assessment Notes Treatment Notes Treatment Clinical Notes Mar, Essential hypertension (ICD-10 - I10) Today during the appointment we ordered labs to check on how your kidneys are functioning since youhave high blood pressure. It is important for us to make sure we protect your kidneys since vision,kidneys and blood circulation are all effected by high blood pressure. It may take us a couple of visits to get your blood pressure in a healthy range and once we do we can space them out a lot more.In addition to medication prescribed we will also talk about healthy changes you can try. Also we will check other labs yearly to screen for other issues. Please remember we are a team and your opinion is very important in all of your healthcare decisions Mar,2DDD (degenerative disc disease), lumbar (ICD-10 - M51.36) Mar,Mild episode of recurrent major depressive disorder (ICD-10 - F33.0) Today during the appointment we discussed depression and emotions. We talked about treatment options that include both counseling and medication interventions. When we first start treatment, it is common to have to be seen more frequently as we figure out the best treatment regimen that fits you asan individual. We will be able to space out appointments more once we find what works for you. If at any time you feel like your symptoms have increased in severity or you want to hurt yourself, please never hesitate to contact us and we will get you in to be seen. Also always know the [facility] Emergency Number is 24 hours a day available, even on holidays there is someone you can reach out to. Also we will check other labs yearly to screen for other health issues. Please remember we are a team and your opinion is very important in all of your healthcare decisions Mar,ther spondylosis with radiculopathy, lumbar region (ICD-10 - M47.26) [employer] Other 07-05-2022 Evaluation note* Encounter Date Diagnosis Assessment Notes Treatment Notes Treatment Clinical Notes Feb, Pain in left lumbar region of ba ck (ICD-10 - M54.50) Take medications as directed. Use caution when operating machinery with muscle relaxer as it may cause drowsiness. Alternating heat and ice to area 3-4 times per day. Rest a lot Follow up with primary care if there is no symptom improvement within the next week, sooner if symptoms worsen or new symptoms occur. Feb,Left lumbar pain (ICD-10 - M54.50) [employer] Other 06-01-2022 Evaluation note* Encounter Date Diagnosis Assessment Notes Treatment Notes Treatment Clinical Notes Jan, Generalized pain (ICD-10 - R52) Jan,train of lumbar region, initial encounter (ICD-10 - S39.012A) [employer] Other 05-19-2022 Evaluation note* Encounter Date Diagnosis Assessment Notes Treatment Notes Treatment Clinical Notes December, DDD (degenerative disc disease), lumbar (ICD-10 - M51.36) December,2Other low back pain (ICD-10 - M54.59)Patients primary complaint today continues to be low [...] with patient in regards to patients condition. December,hronic pain (ICD-10 - G89.29) December,therAbove note written by Javed Arreola CMA, Boat [employer]. Edited and approved by Dr. Pop Blandon MD. [facility] Other 04-14-2022 Evaluation note* Encounter Date Diagnosis Assessment Notes Treatment Notes Treatment Clinical Notes Nov, DDD (degenerative disc disease), lumbar (ICD-10 - M51.36) Nov,2Other low back pain (ICD-10 - M54.59)Patients primary complaint today is low lumbar pain radiating into the posterior aspect of her leftlower extremity. She has failed multiple previous conservative treatments and continues to experience worsening symptoms. I will order an updated MRI of her lumbar spine for further evaluation of herpain symptoms. Pending the results, we can consider a referral to neurosurgery vs injections. We will follow up with the patient once we obtain the results. In the meantime she will stop use of Meloxicam and continue with use of Aleve. Additonally, we will prescribe Tizanidine 4mg once daily. Risksand side effects of this medication was discussed in detail with the patient who voiced understanding. Anatomy of spine discussed in detail with patient in regard to patients condition. Nov,hronic pain (ICD-10 - G89.29) Nov,therAbove note written by Luli Garcias LPN, Boat [employer]. Edited and approved by Dr. Pop Blandon MD. [facility] Other 03-17-2022 Evaluation note* Encounter Date Diagnosis Assessment Notes Treatment Notes Treatment Clinical Notes Oct, DDD (degenerative disc disease), lumbar (ICD-10 - M51.36) Oct,ther low back pain (ICD-10 - M54.59) Patients [...] with patient in regards to patients condition. Oct,hronic pain (ICD-10 - G89.29) Oct,therAbove note written by Javed Arreola MA, Boat Carpenter. Edited and approved by Dr. Pop Blandon MD. [facility] Other 03-10-2022 Evaluation note* Encounter Date Diagnosis [...] discussed so you can talk about referrals. [employer] Other 03-02-2022 Evaluation note* Encounter Date Diagnosis Assessment Notes Treatment Notes Treatment Clinical Notes Oct, Generalized pain (ICD-10 - R52) [employer] Other 01-31-2022 Evaluation note* Encounter Date Diagnosis [...] the pain persists, we can consider further ev aluation with an MRI vs possible facet injections. Anatomy of spine discussed in detail with patient in regards to patients condition. Aug,Generalized pain (ICD-10 - R52) Patient is voicing [...] OARRS was processed and reviewed, no discrepencies. Aug,ther low back pain (ICD-10 - M54.59) Aug,hronic pain (ICD-10 - G89.29) Aug,therAbove note written by Javed Arreola MA, Boat [employer]. Edited and approved by Dr. Pop Blandon MD. [facility] Other 12-13-2021 Evaluation note* Encounter Date Diagnosis Assessment Notes Treatment Notes Treatment Clinical Notes Jul, Lumbar radicular pain (ICD-10 - M54.16) Patient having significant pain with radicular extension down the left leg and will be placed on strong anti-inflammatory of indomethacin to help reduce inflammation and pain as well as she was givenIM Depo-Medrol here in the office. Patient will also have x-rays obtained. She does have a history of a transverse process fracture but no other injuries previously to the back. Will assess for arthritic changes as patient could have facet joint arthritis versus a herniated disc. Presently will work on getting her acute pain to calm down. Jul,umbar paraspinal muscle spasm (ICD-10 - M62.830) Will start muscle relaxer and gave IM steroid injection. Patient has significant paraspinal muscle hypertonicity and she was given Flexeril to help relax her muscles. [employer] Other 10-14-2021 Evaluation note* Encounter Date Diagnosis Assessment Notes Treatment Notes Treatment Clinical Notes May, Acute non-recurrent maxillary si nusitis (ICD-10 - J01.00) Patient continues to have sinus infection symptoms but unfortunately she was getting sick from the Augmentin. We will stop Augmentin and switch to cefdinir and start Zofran for nausea. Patient instructed to call if she is having problems with the new antibiotic. May,uspected COVID-19 virus infection (ICD-10 - Z20.822) Covid antigen testing today is negative May,ilious vomiting with nausea (ICD-10 - R11.14) May,ontact with and (suspected) exposure to other viral communicable diseases (ICD-10 - Z20.828) May,Other Additional time spent conducting pre-visit phone call, screening for symptoms, instructions on social distancing, application and removal of PPE, and cleaning of examination room, equipment and supplies was preformed. Patient education given for testing methodology and results. Patient care instructions given in writting by [facility] Care At Home document. [employer] Other Evaluation + Plan note Future Appointments Appointment Date:10/12/2024 01:30:00 PM Scheduled Provider: Location:[facility] Appointment Type:Surgical PAT FT Appointment Date:10/19/2024 11:30:00 AM Scheduled Provider: Location:[facility] Appointment Type:Surgery FT Appointment Date:10/23/2024 10:15:00 AM Scheduled Provider:Obdulio Matamoros DO Location:[facility] Appointment Type:Pain Management - New (FT) [facility] evaluation + Plan note Future Appointments Appointment Date:10/19/2024 11:30:00 AM Scheduled Provider: Location:[facility] Appointment Type:Surgery FT Appointment Date:10/23/2024 10:15:00 AM Scheduled Provider:Obdulio Matamoros DO Location:[facility] Appointment Type:Pain Management - New (FT) [facility] Evaluation + Plan note Future Appointments Appointment Date:10/23/2024 10:15:00 AM Scheduled Provider:Obdulio Matamoros DO Location:[facility] Appointment Type:Pain Management - New (FT) [facility] Evaluation + Plan note Future Appointments Appointment Date:11/02/2024 10:15:00 AM Scheduled [facility]: [facility]:XR Abdomen (FT) Appointment Date:11/02/2024 10:30:00 AM Scheduled Provider: [facility] Appoint[facility] Type:US Abdominal/Pelvis (FT) Appointment Date:11/20/2024 10:20:00 AM Scheduled Provider:YESENIA YUSUF MD Location:[facility] Appointment Type:URO Office Visit Future Scheduled Tests Radiology* XR Abdomen 1 View 11/02/24 * US Renal 11/02/24 [facility] evaluation + Plan note Future Appointments Appointment Date:01/29/2025 11:00:00 AM Scheduled Provider:YESENIA YUSUF MD Location:[facility] Appointment Type:URO Office Visit [facility] evaluation noteNo [facility] [employer] Other Evaluation noteNo assessment information available [facility] Work Phone: Evaluation note* Diagnosis Onset Date Resolution Status Obesity, morbid, BMI 40.0-49.9 acuteObstructive sleep apnea of adultacute [facility] Work Phone: Evaluation note* Diagnosis Lumbar radiculopathy- Primary Thoracic or lumbosacral neuritis or radiculitis, unspecified Polypharmacy Issue of repeat prescriptions documented in this encounter [facility] HealthcareEvaluation note* Diagnosis Postural dizziness with near syncope- Primary Abnormal EKG Nonspecific abnormal electrocardiogram (ECG) (EKG) documented in this encounter [facility] Work Phone: Evaluation note* Diagnosis Lumbosacral spondylosis without myelopathy- Primary [facility] Diagnosis Encounter for initial prescription of contraceptive pills [facility] Diagnosis Well woman exam with routine gynecological exam- Primary Routine gynecological examination Encounter for screening mammogram for malignant neoplasm of breast Standardized adult depression screening tool completed Skin lesion of right leg Unspecified disorder of skin and subcutaneous tissue [facility] Diagnosis Postural dizziness with near syncope documented in this encounter [facility] Work Phone: Evaluation note* Diagnosis Postural dizziness with near syncope documented in this encounter [facility] Work Phone: Evaluation note* Diagnosis Onychomycosis- Primary Dermatophytosis of nail Right foot pain Pain in soft tissues of limb Plantar wart Left foot pain Pain in soft tissues of limb documented in this encounter [facility] HealthcareEvaluation note* Diagnosis Onychomycosis- Primary Dermatophytosis of nail documented in this encounter [facility] HealthcareEvaluation note* Diagnosis Plantar wart- Primary documented in this encounter [facility] HealthcareEvaluation note* Diagnosis Primary insomnia- Primary Persistent [...] Morbid (severe) obesity due to excess calories ([facility]) Obesity, class 3 Body mass index (BMI) 45.0-49.9, adult ([facility]) Major depressive disorder, single episode, in full remission Major depressive disorder, single episode in full remission documented [facility]* Diagnosis Intractable migraine with aura with status migrainosus- Primary Migraine with aura, with intractable migraine, so stated, with status migrainosus Elevated LDL cholesterol level documented in this encounter [facility]* Diagnosis Pain in other joint- Primary Rheumatoid arthritis involving both ankles with positive rheumatoid factor (HCC) documented in [facility] encounter [facility]* Diagnosis Postmenopausal bleeding- Primary Flu vaccine need Encounter for screening mammogram for malignant neoplasm of breast Amenorrhea Absence of menstruation Vasomotor symptoms due to menopause Perimenopausal vasomotor symptoms [facility] Diagnosis Postural dizziness with near syncope documented in this encounter [facility] Work Phone: Hisdwej general Narrative - Reported* Type Description Date Medical History HTN Hospitalization HistorysalStockRadar Other History general Narrative - Reported* Type Description Date Medical History HTN Medical Historyback painHospitalization HistorysalStockRadar Other Hisgllc general Narrative - Reported* Type Description Date Medical History HTN Medical HistoryBack painMedical HistoryDay time fatigueMedical HistoryDepression Medical HistoryGestational diabetes in the pastMedical HistorySpinal stenosis Medical HistoryChronic pain requiring narcotic useHospitalization Historysaliva [employer] Other History general Narrative - Reported* Type Description Date Medical History HTN Medical HistoryBack painMedical HistoryDay time fatigueMedical HistoryDepression Medical HistoryGestational diabetes in the pastMedical HistorySpinal stenosis Medical HistoryChronic pain requiring narcotic useHospitalization [facility] stonesHospitalization History[facility] pneumonia[facility]2021 [employer] Other History general Narrative - ReportedNomercy hospital [facility] [employer] Other Hospital course Narrative No data available for this section [facility] Hospital Discharge instructions Additional Instructions Use your albuterol inhaler as prescribed for your shortness of breath and wheezing. Take Levaquin and prednisone as prescribed for pneumonia and laryngitis follow-up with the PCP for reevaluation in 5 to 7 days. .[facility] Work Phone: Hospital Discharge instructions No data available for this section [facility] InstructionsNot on filedocumented in this encounter [facility] System[facility] Digital SystemInstructions* Attachments The following attachments cannot be sent through Care Everywhere. * Menopause (Hungarian) * Health Risks of a High BMI (Hungarian) documented in this encounterProMercy Health St. [facility] Medical CenterMailMag SystemInstructions* Attachments The following attachments cannot be sent through Care Everywhere. * Bleeding After Menopause (Hungarian) documented in [facility] SystemProgress note No data available for this section [facility] Reason for referral (narrative)* Consultation (Routine) - Pending ReviewSpecialtyDiagnoses / ProceduresReferred By ContactReferred To ContactDermatology Diagnoses Skin lesion of right leg Naima Bates APRN-CNP [address] [place] [address] Emely Veloz MD [address] [address] Referral IDStatusReasonStart DateExpiration DateVisits RequestedVisits [id number] Review Specialty Services Required / [place] GrainReason for visit NarrativeNeurosurgery Referral Update [employer] Other Revcmm for visit NarrativePain Medicine Referral UpdateNomercy hospital st. [facility] [employer] Other Reowpg for visit NarrativeDermatology Referral Update [employer] Jack Erwin Other Reason for visit Narrative* Consultation (Routine) - Pending ReviewSpecialtyDiagnoses / ProceduresReferred By ContactReferred To ContactNeurology Diagnoses Difficulty in walking, not elsewhere classified Spondylolysis, lumbosacral 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, lumbar region Procedures CA OFFICE/OUTPATIENT [facility] Ellie Ingram, FABRICIO [address] [place] [address] Phone: tel: fax: Joesph Macedo MD [address] [place] [address] Phone: tel: fax: Referral IDStatusReasonStart DateExpiration DateVisits RequestedVisits [id number] Review Consult and Treat / [facility] for visit Narrative* Cardiovascular (Routine) - Authorized SpecialtyDiagnoses / ProceduresReferred By ContactReferred To Contact Cardiology Diagnoses Postural dizziness with near syncope [place] [address] [address] Phone: tel: fax: Referral IDStatusReasonStart DateExpiration DateVisits RequestedVisits [id number]/2/202412/2/202511 [facility] Work Phone: Summary Purpose Family History No Family History Records Found Relationship Condition Age at Onset Recorded Date/T yesi brother Malignant neoplasm Unknown fatherHypertensionUnknownfamily memberDeceasedUnknownNot SpecifiedMalignant neoplasmUnknownHypertensionUnknownDeceasedUnknownsisterMalignant neoplasmUnknown Relationship Condition Age at Onset Recorded Date/T yesi brother Malignant neoplasm Unknown fatherHypertensionUnknownfamily memberDeceasedUnknownmotherMalignant neoplasm UnknownHypertensionUnknownDeceasedUnknownsisterMalignant neoplasmUnknown Advance Directives No Advanced Directives Records Found Advance Directive Response Recorded Date/ Time Advance Directives No August 05, 2018 12:30pm Advance Directive Response Recorded Date/ Time Advance Directives No August 05, 2018 1:30pm Reason for Referral StatusReasonSpecialtyDiagnoses / ProceduresReferred By ContactReferred To ContactClosedRadiology Diagnoses Left elbow pain Procedures MRI ELBOW LEFT WO CONTRAST Edie Singh N, DO [address] [place] [address] Reason his shefflied o ffice - patient has history of chronic back pain and would like opinion if surgery is option Diagnosis 1 Pain in left lumbar region of back (M54.50) Diagnosis 2 Lumbar degenerative disc disease (M51.36) Diagnosis 3 DDD (degenerative di sc disease), lumbar (M51.36) Diagnosis 4 Other spondylosis wi th radiculopathy, lumbar region (M47.26) Referral Organization [facility] Nintexin hal Mckee Referring Provider First Name Ellie Referring [...] Lumbar degenerative disc disease (M51.36) Referral Organization [facility] Nintexin e Rafi Referring Provider First Name Ellie Referring Provider Last Name Juan Jose Referring Provider Specialty Nurse Pract itioner Referred Organization [facility] Referred Address [address], [place],[address] Referred Provider Specialty Pain Medicin e Referral Priority Routine General Notes Serene Lucas 03:02:38 PM >Received and fax referral today Clinical Notes Office [phone] Reason CANCELLED recently changed skin lesions on face Diagnosis 1 Skin lesion (L98.9) Referral Organization [facility] Family Medicin e Rafi Referring Provider First Name Ellie Referring Provider Last Name Juan Jose Referring Provider Specialty Nurse Pracblayne sanchez Referred Organization [facility] Referred Address [address],[place], [place],[address] Referred Provider Specialty Dermatology Referral Priority Routine [...] it stated right away that the patient isnot accepting calls at this time. Serene Lucas 09/17/2022 01:16:55 PM >Called patient and it stated right away that the patient isnot accepting calls at this time. Serene Lucas 09/21/2022 11:05:24 AM >Called patient and it stated right away that the patient isnot accepting calls at this time. Serene Lucas [...] Diagnosis 1 Sleep apnea (G47.30) Referral Organization [facility] Referring Provider First Name Danya Referring Provider Last Name byron Referring Provider Specialty Nurse Pract itioner Referred Organization [facility] Referred Address [address] [place], [place],[address] Referred Provider Specialty Sleep Medici ne Referral Priority Routine General Notes Xiomy Solo 2022 08:06:34 AM > Faxed to sleep lab. Xiomy Solo 10/22/2022 08:01:36 AM > Per Central Scheduling, order was received but pt has notbeen contacted yet to schedule.SpecialtyDiagnoses / ProceduresReferred By ContactReferred To Contact Diagnoses Lumbosacral spondylosis without myelopathy Procedures CA DSTR NROLYTC AGNT PARVERTEB FCT SNGL LMBR/SACRAL Patricia Walker MD [address] [facility] [address] [place] [address] Referral IDStatusReasonStart DateExpiration DateVisits RequestedVisits [id number] Assessments Diagnosis Left elbow pain Pain in [...] adult Chief Complaint SHARMILA/31-90 day follow up REQUKarli FLOWERS for VisitObesity, morbid, BMI 40.0-49.9 Obstructive sleep apnea of adult Chief Complaint REQUALIFY, SHARMILA REQUALIFY, SHARMILA 31-90 VisitReason for VisitObesity, morbid, BMI 40.0-49.9 Obstructive sleep apnea of adult Additional Source Comments INFORMATION SOURCE (unrecogn ized section and content) DATE CREATED AUTHOR 08/14/2020 [facility] DATE CREATED AUTHOR AUTHOR'S ORGANIZ ATION 11/20/2022 [facility] DATE CREATED AUTHOR AUTHOR'S ORGANIZ ATION 01/22/2024 [facility] DATE CREATED AUTHOR AUTHOR'S ORGANIZ ATION 01/23/2024 [facility] DATE CREATED AUTHOR AUTHOR'S ORGANIZ ATION 02/25/2024 [facility] DATE CREATED AUTHOR AUTHOR'S ORGANIZ ATION 03/23/2024 [facility] DATE CREATED AUTHOR AUTHOR'S ORGANIZ ATION 05/06/2024 [facility] DATE CREATED AUTHOR AUTHOR'S ORGANIZ ATION 06/25/2024 [facility] DATE CREATED AUTHOR AUTHOR'S ORGANIZ ATION 10/14/2024 [facility] DATE CREATED AUTHOR AUTHOR'S ORGANIZ ATION 10/15/2024 [facility] DATE CREATED AUTHOR AUTHOR'S ORGANIZ ATION 10/21/2024 [facility] DATE CREATED AUTHOR AUTHOR'S ORGANIZ ATION 11/04/2024 [facility] DATE CREATED AUTHOR AUTHOR'S ORGANIZ ATION 11/16/2024 [facility] DATE CREATED AUTHOR AUTHOR'S ORGANIZ ATION 12/03/2024 [facility] DATE CREATED AUTHOR AUTHOR'S ORGANIZ ATION 03/12/2025 [facility] DATE CREATED AUTHOR AUTHOR'S ORGANIZ ATION 05/14/2025 [facility] DATE CREATED AUTHOR AUTHOR'S ORGANIZ ATION 06/05/2025 [facility] DATE CREATED AUTHOR AUTHOR'S ORGANIZ ATION 06/09/2025 [facility] DATE CREATED AUTHOR AUTHOR'S ORGANIZ ATION 06/10/2025 [facility] DATE CREATED AUTHOR AUTHOR'S ORGANIZ ATION 06/16/2025 [facility] Reason for Visit (unrecogniz ed section and content) StatusReasonSpecialtyDiagnoses / ProceduresReferred By ContactReferred To ContactClosedRadiology Diagnoses Lateral epicondylitis, left elbow Pain in left elbow Procedures HC MRI-UPPER EXT JNT WO CONT ArtemioEdie cronelius Zbigniew, DO [address] [place] [address] [facility] [address] [place] [address] ReasonCommentsNew Patient VisitSpecialtyDiagnoses / ProceduresReferred By ContactReferred To Contact Diagnoses Abnormal EKG Procedures ECG 12 lead (Clinic Performed) Martin Larios MD [address] [place] [address] [address], [facility] [address] [place] [address] Phone: tel: fax: Referral IDStatusReasonStart DateExpiration DateVisits RequestedVisits [id number] RefillReason CommentsDizzinessSyncopeFollow-upResultsSpecialtyDiagnoses / ProceduresReferred By ContactReferred To ContactCardiology Diagnoses Postural dizziness with near syncope Procedures Follow Up In Cardiology Martin Larios MD [address] [place] [address] [address] [place] [address] Phone: tel: fax: Referral IDStatusReasonStart DateExpiration DateVisits RequestedVisits [id number] 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 Patient states she has pain withthis. Patient states she had cryotherapy with PCP at the of November and it did not work. Patient alsorelates fungal nails with 4th and 5th digits with right foot.ReasonCommentsPlantar MarshalltsJoselito Toby Vidal is a 54 y.o. female. presents today for FUV plantar wart on left foot. Patient states wart is better. Patient relates she has started Lamisil forfungal nails with 4th and 5th digits with right foot.ReasonCommentsVaginal BleedingPatient presents for PMB.ReasonCommentsFollow-up6 MONTH FOLLOW UP LABS & MEDICATION CHANGESSpecialty Diagnoses / ProceduresReferred By ContactReferred To ContactCardiology Diagnoses Postural dizziness with near syncope Procedures [place] [address] [facility] [address] [place] [address] Phone: tel: fax: Referral IDStatusReasonStart DateExpiration DateVisits RequestedVisits [id number] Care Teams (unrecognized sec tion and content) Team Status: Active Member Role Status Dates NON STAFF Primary Care Provider Active Team Status: Inactive Member Role Status Dates Dario Olmedo MD Attending Provider Active Start: December 28, 2023 End: December 28, 2023NON STAFFPrimary Care ProviderActiveStart: December 28, 2023 End: December 28, 2023 Team Status: Active Member Role Status Dates Dario Olmedo MD Attending Pr ovider, Other Provider Active Start: December 29, 2023 NON STAFFPrimary Care ProviderActiveStart: December 29, 2023 Team Status: Inactive Member Role Status Dates NON STAFF Primary Care Provider Active Start: March 15, 2024 End: March 15hristFarooq Montes ProviderActiveStart: March 15, 2024 End: March 15, 2024 Team Status: Inactive Member Role Status Dates NON STAFF Primary Care Provider Active Aretha Whitney ProviderActive Team Status: Active Member Role Status Dates LUCY Lee Primary Care Provider, Dioni torres Provider Active Team Status: Inactive Member Role Status Dates LUCY Lee Primary Care Provider, Dioni torres Provider Active Team Status: Active Member Role Status Dates LUCY Lee Primary Care Provider Active Team Status: Inactive Member Role Status Dates LUCY Lee Primary Care Provider Active Aretha Vázquez ProviderActive Team Status: Inactive Member Role Status Dates Ellie Juan Jose , PIGMENT MIXER-C Primary Care Provider Active Susana Ellis THREAD WEAVER-CAttending ProviderActive Team Status: Inactive Member Role Status Dates Elliedavid Ingram , PIGMENT MIXER-C Primary Care Provider Active Danya Carty , APRNReferring ProviderActiveChrob Olmedo MD Attending ProviderActive Team Status: Inactive Member Role Status Dates Ellie Juan Jose , PIGMENT MIXER-C Primary Care Provider Active Dario Olmedo MDAttending ProviderActive Team Status: Inactive Member Role Status Dates Elliedavid Ingram , PIGMENT MIXER-C Primary Care Provider Active Dario Palacios DOAttending ProviderActive Team Status: Inactive Member Role Status Dates Ellie Ingram , PIGMENT MIXER-C Primary Care Provider Active Start: November 26, 2023 End: November 26, 2023Henivia Duckworth APRN ACNP-BCAttending ProviderActiveStart: November 26, 2023 End: November 26, 2023 Team Status: Active Member Role Status Dates NON STAFF Primary Care Provider Active Start: October 13, 2023 Estuardo Judge DOAttending ProviderActiveStart: October 13, 2023 Team MemberRelationshipSpecialtyStart DateEnd Date Unallocated, Eryn ProviderMD [address] [place] [id number] PCP - [facility]07/18/24 Ellie Ingram NP [address] [place] [address] Referring Fovwdnmqa58/19/24Team MemberRelationshipSpecialtyStart DateEnd Date Unallocated, MD Emma Wells[address] [place] [phone] PCP - [facility] Ubkvobyq37/19/24 Ellie Ingram NP [address] [place] [address] Referring Kxnqlivru67/19/24Team MemberRelationshipSpecialtyStart DateEnd Date Ellie Ingram, OFFAL ROLLER-INVENTORY CONTROL/SHIPPING RECEIVING [address] [place] [address] PCP - GeneralFamily Puxprtax56/19/24Team MemberRelationshipSpecialtyStart Date End Date Ellie Ingram OFFAL ROLLER - THREAD WEAVER [address] [place] [address] PCP - General03/26/22Team MemberRelationshipSpecialtyStart DateEnd Date Ellie IngramBROOKLYNN-INVENTORY CONTROL/SHIPPING RECEIVING [address] [place] [address] [place] [phone] PCP - GeneralFamily Mjfmuvoo24/19/24 Martin Larios MD [address] [place] [address] Consulting PhysicianCardiology11/09/24Team MemberRelationshipSpecialtyStart Date End Date Ellie IngramBROOKLYNN-INVENTORY CONTROL/SHIPPING RECEIVING [address] [place] [phone] [facility] - [facility] Xapozcbm35/19/24 Martin Larios MD [address] [place] [address] Consulting PhysicianCardiology11/09/24Team MemberRelationshipSpecialtyStart Date End Date Rancho Hernandez MD [address] [place] [address] PCP - GeneralFamily Medicine03/16/25 Ellie Ingram NP [address] [place] [address] Referring Bcqizptze59/19/24Team MemberRelationshipSpecialtyStart DateEnd Date Rancho Hernandez MD [facility] [place] [phone] PCP - Generalmi Medicine03/16/25 Ellie Ingram NP [address] [place] [address] Referring Dqvuehbmm24/19/24Team MemberRelationshipSpecialtyStart DateEnd Date Rancho Hernandez MD [address] [place], [place] [phone] PCP - GeneralFamily Medicine03/16/25 Ellie Ingram NP [address] [place] [address] Referring Whqmfsgwl26/19/24Team MemberRelationshipSpecialtyStart DateEnd Date Rancho Hernandez MD [address] [place], [place] [phone] PCP - GeneralFamily Medicine03/16/25 Ellie Ingram NP [address] [place] [address] Referring Pwnnedgpv15/19/24Team MemberRelationshipSpecialtyStart DateEnd Date Rancho Hernandez MD [address] [place] [address] PCP - GeneralFamily Medicine03/16/25 Ellie Ingram NP [address] [place] [address] Referring Alitetcrf52/19/24Team MemberRelationshipSpecialtyStart DateEnd Date Rancho Hernandez MD [facility] [place] [address] PCP - GeneralFamily Medicine03/16/25 Ellie Ingram NP [address] [place] [address] Referring Zqfnccawo99/19/24Team MemberRelationshipSpecialtyStart DateEnd Date Rancho Hernandez MD [facility] [place] [address] PCP - GeneralFamily Medicine03/16/25 Ellie Ingram NP [address] [place] [address] Referring Ejowomrsw11/19/24Team MemberRelationshipSpecialtyStart DateEnd Date Rancho Hernandez MD [facility] [place] [address] PCP - GeneralFamily Medicine03/16/25 Ellie Ingram NP [address] [place] [address] Referring Pxzqeqjlo91/19/24Team MemberRelationshipSpecialtyStart DateEnd Date Ellie Ingram, OFFAL ROLLER-PIGMENT MIXER [address] [place] [address] PCP - GeneralFamily Medicine09/22/24Team MemberRelationshipSpecialtyStart DateEnd Date Ellie Ingram, OFFAL ROLLER-INVENTORY CONTROL/SHIPPING RECEIVING [address] [place] [address] [place] [phone] PCP - GeneralFamily Jhluvjrx58/19/24 Martin Larios MD [address] [place] [phone] Consulting PhysicianCardiology11/09/24 Goals (unrecognized section and content) Goals may be documented in a n alternate section Ordered Prescriptions (unrec ognized section and content) PrescriptionSigDispensedRefillsStart DateEnd Date topiramate (TOPAMAX) 25 MG tablet Take 3 tablets by mouth nightly 90 tablet / FOR RECORDS PERTAINING TO PATIENTS WHO ARE [...] BE BASED ON THE PRIMARY CLINICAL RECORDS. [employer] [facility]. provides no warranty or guarantee of the accuracy or completeness of information in this document.
--- NOTE | 2025-06-20 10:36 | PM.CN ---
Consult Note: HPI Data of Consult Patient: known to practice within the last 3 years Consult date: 06/20/25 Requesting Physician: Lois Borjas NP Primary Care Provider: RENETTA CELESTIN Consult Narrative Reason for consult: chronic neck and low back pain Narrative: Mariana Kelly a pleasant 54 year old female presents for evaluation of chronic neck and low back pain. pt is on disability, has been diagnosed this year with POTS, and has a hx of lumbar spondylosis and lumbar stenosis with NC. pt previously following with [facility] in 2023 with short term relief from injections, was interested in a spinal cord stimulator. cannot tolerate PT due to severe pain. JU 52%. pain today 9/10 sharp in low back and BLE, increasing with standing, walking, lifting, bending, twisting. pain improved with sleep. pt pending NS consultation, has not been able to schedule consult yet due to change in personal phone number cc:: CC: Lois Borjas NP Review of Systems ROS Musculoskeletal Reports: back pain, extremity pain and joint pain PFSH PFSH Medical History (Updated 05/23/25 @ 11:14 by Lois Borjas NP) Tachycardia ?R00.0 - Tachycardia, unspecified (ICD-10) Autonomic dysfunction ?G90.9 - Disorder of the autonomic nervous system, unspecified (ICD-10) Stage 3b chronic kidney disease (CKD) ?N18.32 - Chronic kidney disease, stage 3b (ICD-10) Extrinsic asthma without complication ?J45.909 - Unspecified asthma, uncomplicated (ICD-10) LACEY (generalized anxiety disorder) ?F41.1 - Generalized anxiety disorder (ICD-10) Hypertension ?I10 - Essential (primary) hypertension (ICD-10) Prediabetes ?R73.03 - Prediabetes (ICD-10) Lumbar spondylosis ?M47.816 - Spondylosis without myelopathy or radiculopathy, lumbar region (ICD-10) Back pain ?M54.9 - Dorsalgia, unspecified (ICD-10) Anxiety ?F41.9 - Anxiety disorder, unspecified (ICD-10) Family History Mother Family history of COPD (chronic obstructive pulmonary disease) Family history of cancer Family history of hypertension Grandfather Family history of cancer Family history of diabetes mellitus Family history of myocardial infarction Family history of stroke Grandmother Family history of diabetes mellitus Sister Family history of hypertension Father Family history of hypertension Social History Within the past year, how often did you have a drink containing alcohol: monthly or less Within the past year, how often did you have six or more drinks on one occasion: less than monthly Smoking status: Never smoker Non-prescribed substance use: cannabis (any form) Non-prescribed substance use details: vape cbd 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 Highest level of school completed/degree received: some college, no degree Are you now , , , , never or living with a partner: In a typical week, how many times do you talk on the telephone with family, friends, or neighbors: 3 or more times per week How often do you get together with friends or relatives: 3 or more times per week How often do you attend spiritism or mormon services: never Do you belong to any clubs or organizations such as spiritism groups unions, [employer] or athletic groups, or school groups: no Total score: 1 Score interpretation: A score of less than or equal to 1 indicates the most socially isolated. Little interest or pleasure in doing things: more than half the days Feeling down, depressed, or hopeless: not at all Feel stressed/tense/nervous/anxious/difficulty sleeping: not at all Do you think of yourself as: straight/heterosexual Gender Identity: female Meds Home Medications and Allergies Home Medications ?Medication ?Instructions ?Recorded ?Confirmed ?Type albuterol sulfate 90 mcg/actuation 2 puff inhalation Q4H PRN 10/08/23 05/23/25 History aerosol inhaler shortness of breath or wheezing budesonide-formoterol HFA 160 1 puff inhalation Q12H 10/08/23 05/23/25 History mcg-4.5 mcg/actuation aerosol inhaler (Symbicort) tizanidine 4 mg tablet 4 mg PO TID PRN muscle spasticity 10/08/23 05/23/25 History fludrocortisone 0.1 mg tablet 0.1 mg PO QD #30 tabs 10/15/23 05/23/25 Rx metoprolol tartrate 25 mg tablet 25 mg PO BID #60 tabs 10/15/23 05/23/25 Rx cyanocobalamin (vitamin B-12) 1,000 mcg PO DAILY 04/26/25 05/23/25 History 1,000 mcg capsule empagliflozin 25 mg tablet 25 mg PO DAILY 04/26/25 05/23/25 History (Jardiance) midodrine 2.5 mg tablet 2.5 mg PO BID 04/26/25 05/23/25 History semaglutide 0.25 mg or 0.5 mg (2 0.25 mg subcut QWEEK 04/26/25 05/23/25 History mg/3 mL) subcutaneous pen injector (Ozempic) terbinafine HCl 250 mg tablet 250 mg PO DAILY 04/26/25 04/26/25 History pregabalin 50 mg capsule (Lyrica) 50 mg PO BID 05/23/25 05/23/25 History topiramate 50 mg tablet (Topamax) 50 mg PO BID 05/23/25 05/23/25 History tramadol 50 mg tablet 50 mg PO BID 05/23/25 05/23/25 History Allergies Allergy/AdvReac Type Severity Reaction Status Date / Time No Known Drug Allergies Allergy Verified 10/08/23 18:17 Exam Constitutional Documenting provider has reviewed patient's vital signs: yes Common normals: no apparent distress, oriented x3, healthy appearing, alert and well nourished General appearance: cooperative Nutritional appearance: overweight HENMT Common normals: normocephalic, hearing grossly normal bilaterally and moist oral mucous membranes Head and scalp: normocephalic Eye Common normals: PERRL Pupil: PERRL Neck & C-Spine Common normals: full ROM General: normal visual inspection Chest Common normals: inspection of chest normal Respiratory Common normals: normal respiratory effort, no retractions and no use of accessory muscles Back & Pelvis Thoracic spine/upper back: ROM limited, pain with ROM and thoracic spinal tenderness Lumbar spine/lower back: ROM limited, pain with ROM, lumbar spinal tenderness, straight leg raise positive right and straight leg raise positive left Sacroiliac joints: SI joint(s) abnormal Other: diffuse hyperalgesia, does have significant diffuse pain right > left sij positive delilah(patricks), gaenslens, thigh thrust, compression test decreased sensation bilateral L4,5,S1 strength 4/5 in BLE Neuro Common normals: oriented x3 Sensorium/orientation: alert Psych Common normals: mental status grossly normal, thought process normal, cooperative, affect normal, speech normal and activity/motor behavior normal Speech: normal speech Thought process: normal thought process Results Imaging lumbar MRI: Attestation: I have reviewed the pertinent imaging results. Radiologist's impression: T12-L1: Broad-based disc bulge with facet arthropathy. Mild neural from narrowing. Canal is minimally narrowed. L1-L2: Mild facet arthropathy right greater than left. Trace left facet joint effusion. No focal disc protrusion. Canal and foramina otherwise patent. L2-3: Broad-based disc bulge with facet arthropathy. Yviq-hm-vslwpdrd bilateral neural from narrowing. Minor canal stenosis. L3-4: Disc desiccation with broad-based left extraforaminal zone bulge.. Evidence of facet arthropathy. Right foramen and canal patent. Mild left foraminal narrowing. L4-5: Circumferential disc bulge with advanced facet arthropathy and ligamentum flavum hypertrophy. Trace facet joint effusions. There is moderate to severe central canal stenosis and moderate severe to severe subarticular recess encroachment upon the traversing L5 nerve roots. Moderate bilateral neural foraminal narrowing. L5-S1: Circumferential disc bulge with endplate osteophytosis and facet arthropathy. Moderate severe left greater than right neural from narrowing identified. Additional Findings Additional findings: If on a controlled substance or opioids, I have checked an [place] report on this patient and there are no aberrancies noted in the prescribing history.??If on a controlled substance or opioid a drug screen was completed and reviewed within the last year, and if there has not been a drug screen completed we ordered one today to monitor higher risk, state monitored pain medication use. As part of providing excellent, safe, comprehensive care, the following was completed at our patient's visit: 1. A medication reconciliation and review to ensure accurate knowledge of current/active medications, including asking our patients to inform us about any [id number]-[id number] medications or herbal remedies/nutritional supplements/alternative remedies. 2. A review to specifically ensure our patients have had annual screening for screening for depression, screening for tobacco use, and screening for unhealthy alcohol use. For concerning screenings had a discussion with the patient, provided patient education, and recommended follow-up with primary care provider when appropriate. If patient noted with a risk of falling, they received education on strength, gait, and balance training to prevent future risk of falling. Portions of this note may have been carried over from the previous visit and updated as appropriate. Please note this office utilizes paper charting in addition to the electronic medical record. A list of current medications, vitals, and PMH is available there as the clinical staff outside of myself do not have access to [facility] charting during the clinic day operations. As part of providing quality comprehensive care the current medications, vitals, and PMH were reviewed in the paper chart. Assessment and Plan Assessment and Plan (1) Lumbar stenosis with neurogenic claudication: Assessment and Plan: The patient has had over 3 months of moderate to severe back pain with functional impairment and inadequate response to conservative care including NSAIDS (unless there are contraindication such as concurrent blood thinners), multiple oral or topical pain medications, and home exercise program/physical therapy.? Patient has completed >6 weeks of guided home exercise program and/or formal physical therapy program without relief of their symptoms.? 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 will proceed with bilateral L4-5 TFESI under fluoroscopy for lumbar stenosis with NC. may need to consider bilateral L5-S1 TFESI due to multilevel stenosis and dermatomal pain continue f/u with NS restart tramadol 50mg daily prn moderate to severe pain 30 tabs to last 30 days. pt reports it is helpful for decreasing severe pain to moderate for a few hours so she can go on walks, workout, be functional at home. concha side effects update narcan script increase pregabalin 75mg BID continue otc tylenol use continue tizanidine 4mg hs prn pain/spasms f/u 2 weeks after injection
== END 2025-06-20 10:11 | disposition home or self-care (01) ==
LOC: PM 10:10
PROVIDERS: PCP Nurse Practitioner Family; Visit Provider Nurse Practitioner
DX: M48.062 Spinal stenosis, lumbar region with neurogenic claudication (principal); M53.2X6 Spinal instabilities, lumbar region; M51.360 Other intervertebral disc degeneration, lumbar region with discogenic back pain only; M79.7 Fibromyalgia; Z51.81 Encounter for therapeutic drug level monitoring
CPT/HCPCS: G0463

== ENCOUNTER 2025-07-02 09:26 | Day surgery (SDC) | payer MEDICARE, MEDICAID, SELFPAY ==
--- OUTSIDE RECORDS SUMMARY | 2025-06-25 11:26 | XMS_ITS | Encounter Summary ---
Author Organization [facility] tem Address [facility]-[id number] [address] [place] [address] Care Team Providers Care Post Production Assistant Name Role Phone Ellie Ingram APRN-[facility] Primary Care Provide r Encounter Details DateTypeDepartmentCare Team (Latest Contact Info)Gsbjnxximbm64/27/2025 12:26 PM EDT - 06/25/2025 12:59 PM EDTHospital Encounter [facility] - [facility]ound [address] [place] [address] Naima Macedo, RADIO MECHANIC APPRENTICE-STEM MAKER [address] [place] [address] Postmenopausal bleeding Discharge Disposition: Home Social History Tobacco UseTypesPacks/DayYears UsedDateSmoking Tobacco: NeverSmokeless Tobacco: NeverAlcohol UseStandard Drinks/WeekCommentsYes0 (1 standard drink = 0.6 oz pure alcohol)occasionalPHQ-2AnswerDate RecordedTotal Eympe499UDIT-CAnswer Date RecordedQ1: How often do you have a drink containing alcohol?Never 06/26/2025Q2: How many drinks containing alcohol do you have on a typical day when you are drinking?Patient does not drink06/26/2025Q3: How often do you have six or more drinks on one occasion?Never5ChildcareAnswerDate Recorded GmvylyznwBuwtrnw46/23/2020EmploymentAnswerDate RecordedEmploymentUnknown 03/21/2020Hunger ScreeningAnswerDate RecordedWithin the past 12 months we worried whether our food would run out before we got money to buy more.Never True06/26/2025Within the past 12 months the food we bought just didn't last and we didn't have money to get more.Never True06/26/2025Purpose - LifeAnswerDate RecordedPurpose and direction in xwgiNtkisgj20/12/2021CommentsNoSex and Gender InformationValueDate RecordedSex Assigned at BirthNot on fileLegal Sex Zwsrpi2203/21/2020 1:58 PM EDTGender IdentityNot on fileSexual OrientationNot on filedocumented as of this encounter Medications at Time of Discharge MedicationSigDispense QuantityRefillsLast FilledStart DateEnd Date atorvastatin (LIPITOR) 10 mg tablet Take 1 tablet (10 mg total) by mouth in the morning.05/29/2025 calcium carbonate-vitamin D3 (OSCAL 500 + D) 500 mg (1,250 mg) - 200 units per tablet Take 1 tablet by mouth in the morning and 1 tablet before bedtime.06/19/2024 cyanocobalamin (VITAMIN B-12) 1,000 mcg/mL injection Inject 1 mL (1,000 mcg total) into the appropriate muscle every 28 days. 03/25/2025 fludrocortisone (FLORINEF) 0.1 mg tablet Take 1 tablet (0.1 mg total) by mouth in the morning.12/15/2023 gemfibroziL (LOPID) 600 mg tablet Take 1 tablet (600 mg total) by mouth in the morning and 1 tablet (600 mg total) before bedtime.5005/22/2026 JARDIANCE 10 mg tablet tablet Take 1 tablet (10 mg total) by mouth in the morning.12/15/2023 JARDIANCE 25 mg tablet tablet Take 1 tablet (25 mg total) by mouth.06/08/2025 metoprolol tartrate (LOPRESSOR) 25 mg tablet Take 1 tablet (25 mg total) by mouth in the morning and 1 tablet (25 mg total) before bedtime.12/15/2023 midodrine (PROAMATINE) 2.5 mg tablet TAKE 1 TABLET BY MOUTH THREE TIMES DAILY (IN THE MORNING, midday, and late afternoon)06/08/2025 ondansetron (ZOFRAN) 8 mg tablet Take 1 tablet (8 mg total) by mouth every 8 (eight) hours as needed.05/10/2025 pregabalin (LYRICA) 75 mg capsule TAKE 1 CAPSULE BY MOUTH TWICE DAILY MUST LAST 30 DAYS06/20/2025 semaglutide (OZEMPIC) 0.25 mg or 0.5 mg (2 mg/3 mL) pen injector INJECT 0.25mg SUBCUTANEOUSLY (UNDER THE SKIN) ONCE A WEEK04/19/2025 terbinafine (LamISIL) 250 mg tablet Take 1 tablet (250 mg total) by mouth in the morning. topiramate (TOPAMAX) 25 mg tablet Take 1 tablet (25 mg total) by mouth in the morning.12/16/2023 topiramate (TOPAMAX) 50 mg tablet TAKE 1 TABLET BY MOUTH DAILY if medication is ineffective by 3 (THREE) days, TAKE 2 JGDVWNF6805/08/2025 traMADoL (ULTRAM) 50 mg tablet TAKE 1 TABLET BY MOUTH DAILY NEEDED FOR PAIN MUST LAST 30 DAYS06/20/2025 amitriptyline (ELAVIL) 25 mg tablet Take 1 [...] every 4 (four) hours as needed for migraine.06/26/2025 gabapentin (NEURONTIN) 300 mg capsule Take 1 capsule (300 mg total) by mouth 3 (three) times a day.06/26/2025 hydrOXYzine (ATARAX) 50 mg tablet Take 1 tablet (50 mg total) by mouth every 8 (eight) hours as needed.11/18/2023 06/26/2025 lisinopriL (PRINIVIL,ZESTRIL) 20 mg tablet Take 1 tablet (20 mg total) by mouth in the morning.06/26/2025 ondansetron ODT (ZOFRAN ODT) 4 mg disintegrating tablet Dissolve 1 tablet (4 mg total) on tongue in the morning and 1 tablet (4 mg total) at noon and 1 tablet (4 mg total) before bedtime. pantoprazole (PROTONIX) 20 mg EC tablet Take 1 tablet (20 mg total) by mouth every morning before breakfast.12/15/2023 06/26/2025 spironolactone (ALDACTONE) 100 mg tablet Take 1 tablet (100 mg total) by mouth in the morning. tiZANidine (ZANAFLEX) 4 mg tablet Take 1 tablet (4 mg total) by mouth every 8 (eight) hours as needed.12/15/2023 06/26/2025 TRULICITY 3 mg/0.5 mL pen injector Inject 1 mg under the skin once a week.documented as of this encounter Plan of Treatment DateTypeDepartmentCare Team (Latest Contact Info)Zjhgkieqpur27/06/2025 11:15 AM ESTProcedure visit [facility] [address] [facility], [place] [address] Ellie Damon, RADIO MECHANIC APPRENTICE-STEM MAKER [address] , [address] [place] [address] 07/10/2025 3:00 PM ESTAppointment [facility] - [facility] [address] [place] [address] Naima Macedo, RADIO MECHANIC APPRENTICE-STEM MAKER [address] [place] [address] 07/10/2025 3:30 PM ESTAppointment [facility] - [facility]ound [address] [place] [address] Naima Macedo, RADIO MECHANIC APPRENTICE-STEM MAKER [address] [place] [address] documented as of this encounter Procedures Procedure NamePriorityDate/TimeAssociated DiagnosisCommentsUS PELVIC WITH STRPZHDWPPWELyrkivv14/27/2025 1:33 PM EDT Postmenopausal bleeding documented in this encounter Results * Ultrasound pelvic with transvaginal (06/25/2025 1:33 PM EDT)Anatomical Region LateralityModalityBody, PelvisUltrasoundSpecimen (Source)Anatomical Location / LateralityCollection Method / VolumeCollection TimeReceived Time06/25/2025 4:59 PM EDT Narrative 06/25/2025 5:01 PM EDT HISTORY: A 54-year-old female with a history of the postmenopausal uterine bleeding. TECHNIQUE: ??Multiple real-time images of the pelvis is performed by using transabdominal and transvaginal approaches. Color Doppler study is performed. COMPARISON: ??Comparison is made with the CT scan of the abdomen and pelvis of 09/23/2024. FINDINGS: ??Uterus is anteverted and measures 8.7 x 3.8 x 4.7 cm. Endometrial echo stripe thicknessmeasured 9.1 cm. No focal mass is seen in the uterine wall. Cervix is normal. Right ovary measures 3.1 x 1.4 x 2.5 cm. Left ovary measures 2.0 x 1.4 x 1.6 cm. Both ovaries are normal. No adnexal mass is identified. Color Doppler study reveals presence of the color Doppler flow without evidence of torsion. No free fluid is seen in the cul-de-sac. IMPRESSION: * ??Normal uterus with prominent endometrial echo stripe and measures 9.1 mm. * ??Normal ovaries. No evidence of adnexal mass or ovarian torsion. * ??No free fluid is seen in the cul-de-sac. Finalized by Marcelo Blackwood MD on 06/25/2025 5:01 PM Procedure Note Marcelo Blackwood MD - 06/25/2025 HISTORY: A 54-year-old female with a history of the postmenopausal uterine bleeding. TECHNIQUE: Multiple real-time images of the pelvis is performed by using transabdominal and transvaginal approaches. Color Doppler study isperformed. COMPARISON: Comparison is made with the CT scan of the abdomen and pelvisof 09/23/2024. FINDINGS: Uterus is anteverted and measures 8.7 x 3.8 x 4.7 cm.Endometrial echo stripe thickness measured 9.1 cm. No focal mass is seenin the uterine wall. Cervix is normal. Right ovary measures 3.1 x 1.4 x 2.5 cm. Left ovary measures 2.0 x 1.4 x1.6 cm. Both ovaries are normal. No adnexal mass is identified. Color Doppler study reveals presence of the color Doppler flow withoutevidence of torsion. No free fluid is seen in the cul-de-sac. IMPRESSION: * Normal uterus with prominent endometrial echo stripe and measures 9.1mm. * Normal ovaries. No evidence of adnexal mass or ovarian torsion. * No free fluid is seen in the cul-de-sac. Finalized by Marcelo Blackwood MD on 06/25/2025 5:01 PM Authorizing ProviderResult TypeResult Apolinar Macedo RADIO MECHANIC APPRENTICE-CNPIMG ORDERABLESFinal Result documented in this encounter Visit Diagnoses Diagnosis Postmenopausal bleeding documented in this encounter Additional Health Concerns AssessmentNoted TimePHQ-9 Depression Total Score: 10:25 AM EDTA Body Mass Index follow-up plan has been documented for the sgxukgw1901/19/2024 3:37 PM EDTdocumented as of this encounter Care Teams Team MemberRelationshipSpecialtyStart DateEnd Date Ellie Ingram APRN-[facility] [address] [place] [id number] PCP - GeneralFamily Medicine09/22/24documented as of this encounter
--- OUTSIDE RECORDS SUMMARY | 2025-06-25 12:00 | XMS_ITS | Encounter Summary ---
Author Organization [facility] tem Address [facility]-[id number] [address] [place] [address] Care Team Providers Care Chairlift Operator Name Role Phone Juan Jose Ellie OVERTON-GEOTHERMAL PRODUCTION MANAGER Primary Care Provide r Encounter Details DateTypeDepartmentCare Team (Latest Contact Info)Reonivcchpq41/27/2025 1:00 PM EDT - 06/25/2025 11:59 PM EDTHospital Encounter [facility] - Mammography/DEXA Imaging [address] [place] [address] Naima Macedo, GUEST ADVISOR-RUBBER GOODS ASSEMBLER [address] [place] [address] Encounter for screening mammogram for malignant neoplasm of breast Discharge Disposition: Home Social History Tobacco UseTypesPacks/DayYears UsedDateSmoking Tobacco: NeverSmokeless Tobacco: NeverAlcohol UseStandard Drinks/WeekCommentsYes0 (1 standard drink = 0.6 oz pure alcohol)occasionalPHQ-2AnswerDate RecordedTotal [id number]-CAnswer Date RecordedQ1: How often do you have a drink containing alcohol?Never 06/26/2025Q2: How many drinks containing alcohol do you have on a typical day when you are drinking?Patient does not drink06/26/2025Q3: How often do you have six or more drinks on one occasion?Never06/26/2025hildcareAnswerDate Recorded CnpmqlporHajnmlh29/23/2020EmploymentAnswerDate RecordedEmploymentUnknown 03/21/2020Hunger ScreeningAnswerDate RecordedWithin the past 12 months we worried whether our food would run out before we got money to buy more.Never True06/26/2025Within the past 12 months the food we bought just didn't last and we didn't have money to get more.Never True06/26/2025Purpose - LifeAnswerDate RecordedPurpose and direction in fefwJthtifr60/12/2021CommentsNoSex and Gender InformationValueDate RecordedSex Assigned at BirthNot on fileLegal Sex Pyrbre8503/21/2020 1:58 PM EDTGender IdentityNot on fileSexual OrientationNot [...] and 1 tablet (600 mg total) before bedtime. JARDIANCE 10 mg [...] ineffective by 3 (THREE) days, TAKE 2 ALRYHKM1305/08/2025 traMADoL (ULTRAM) 50 mg tablet TAKE 1 [...] Plan of Treatment DateTypeDepartmentCare Team (Latest Contact Info)Uzpmyqeiqcs76/06/2025 11:15 AM ESTProcedure visit [facility] [address] [facility] [place] [address] Ellie Damon, GUEST ADVISOR-RUBBER GOODS ASSEMBLER [address] [facility] , [address] [place] [address] 07/10/2025 3:00 PM ESTAppointment [facility] - Mammography/DEXA Imaging [address] [place] [address] Naima Macedo, GUEST ADVISOR-RUBBER GOODS ASSEMBLER [address] [place] [address] 07/10/2025 3:30 PM ESTAppointment [facility] - Ultrasound [address] [place] [address] Naima Macedo, GUEST ADVISOR-RUBBER GOODS ASSEMBLER [address] [place] [address] documented as of this encounter Procedures Procedure NamePriorityDate/TimeAssociated DiagnosisCommentsMAMM SCREENING BILATERAL W PWJOijboos70/27/2025 1:18 PM EDT Encounter for screening mammogram for malignant neoplasm of breast documented in this encounter Results * (ABNORMAL) Mammography screening bilateral with CAD (06/25/2025 1:18 PM EDT) Anatomical RegionLateralityModalityBreastBilateralMammographySpecimen (Source) Anatomical Location / LateralityCollection Method / VolumeCollection Time Received Time06/27/2025 12:38 PM EDT Narrative 06/27/2025 12:40 PM EDT MARIANA VIDAL 1970 [id number] EXAM: MAMM SCREENING BILATERAL W CAD, 06/25/2025 1:01 PM CLINICAL INDICATIONS: Screening, Encounter for screening mammogram for malignant neoplasm of breast COMPARISON: Mammogram dated 01/01/2023 TECHNIQUE: Bilateral digital tomosynthesis MLO and CC views of the breasts were obtained, with creation of synthetic 2D views. Computer aided detection was utilized. FINDINGS: There are scattered areas of fibroglandular density. There are no suspicious calcifications, or areas of architectural distortion. 1 cm oval mass in in the right breast at 10:00 at middle depth, 7 cm from the nipple. Recommend right breast ultrasound. Diagnostic mammographic views if needed. IMPRESSION: Right breast: 1 cm mass. Recommend right breast ultrasound. Diagnostic mammographic views if needed. Left breast: Negative. BI-RADS: BI-RADS 0 - Incomplete. Needs additional imaging evaluation. RECOMMENDATION: ??Additional imaging required. RISK ASSESSMENT: TC Lifetime risk: 6.6%. The patient's reported personal and family medical history was used calculate their Tyrer-Cuzick lifetime risk of malignancy. Scores less than 20% are not considered high risk per ACR guidelines and patient should continue with the above recommendation. Finalized by Alicia Lemus MD on 06/27/2025 12:40 PM 0A b ADDITIONAL I FDA Accredited Performing Facility: [facility] - Mammography/DEXA Imaging [address] [facility] [id number] Procedure Note Alicia Lemus MD - 06/27/2025 MARIANA VIDAL 1970 [id number] EXAM: MAMM SCREENING BILATERAL W CAD, 06/25/2025 1:01 PM CLINICAL INDICATIONS: Screening, Encounter for screening mammogram formalignant neoplasm of breast COMPARISON: Mammogram dated 01/01/2023 TECHNIQUE: Bilateral digital tomosynthesis MLO and CC views of the breastswere obtained, with creation of synthetic 2D views. Computer aideddetection was utilized. FINDINGS: There are scattered areas of fibroglandular density. There are no suspicious calcifications, or areas of architecturaldistortion. 1 cm oval mass in in the right breast at 10:00 at middle depth, 7 cm fromthe nipple. Recommend right breast ultrasound. Diagnostic mammographicviews if needed. IMPRESSION: Right breast: 1 cm mass. Recommend right breast ultrasound. Diagnostic mammographic views if needed. Left breast: Negative. BI-RADS: BI-RADS 0 - Incomplete. Needs additional imaging evaluation. RECOMMENDATION: Additional imaging required. RISK ASSESSMENT: TC Lifetime risk: 6.6%. The patient's reported personal and family medical history was usedcalculate their Tyrer-Cuzick lifetime risk of malignancy. Scores less than20% are not considered high risk per ACR guidelines and patient shouldcontinue with the above recommendation. Finalized by Alicia Lemus MD on 06/27/2025 12:40 PM 0A b ADDITIONAL I FDA Accredited Performing Facility: [facility] - Mammography/DEXA Imaging [address] [facility] [address] Authorizing ProviderResult TypeResult StatusNaima Macedo GUEST ADVISOR-CNPIMG MAMMOGRAPHY ORDERABLESFinal Result documented in this encounter Visit Diagnoses Diagnosis Encounter for screening mammogram for malignant neoplasm of breast documented in this encounter Additional Health Concerns AssessmentNoted TimePHQ-9 Depression Total Score: 10:25 AM EDTA Body Mass Index follow-up plan has been documented for the cjvzoyt5201/19/2024 3:37 PM EDTdocumented as of this encounter Care Teams Team MemberRelationshipSpecialtyStart DateEnd Date Ellie Ingram APRN-[facility] [address] [facility] [place] [address] PCP - GeneralFamily Medicine09/22/24documented as of this encounter
--- OUTSIDE RECORDS SUMMARY | 2025-06-26 08:30 | XMS_ITS | Encounter Summary ---
Author Organization [facility] tem Address [facility] [place]-[id number] [address] [place] [address] Care Team Providers Care Junior Financial Analyst Name Role Phone Juan JoseJoselitoElliedavid OVERTON-PREPARED FOODS SUPERVISOR Primary Care Provide r Reason for Visit * ReasonCommentsGynecologic Exam Encounter Details DateTypeDepartmentCare Team (Latest Contact Info)Cskiaurikrr59/28/2025 9:30 AM EDTOffice Visit [facility] - [facility] [address] [place] [place] [address] Encounter for breast and pelvic examination (Primary Dx); Pap smear, as part of routine gynecological examination; Standardized adult depression screening tool completed Social History Tobacco UseTypesPacks/DayYears UsedDateSmoking Tobacco: NeverSmokeless Tobacco: NeverAlcohol UseStandard Drinks/WeekCommentsYes0 (1 standard drink = 0.6 oz pure alcohol)occasionalPHQ-2AnswerDate RecordedTotal Viesc828/28/2025AUDIT-CAnswer Date RecordedQ1: How often do you have a drink containing alcohol?Never 06/26/2025Q2: How many drinks containing alcohol do you have on a typical day when you are drinking?Patient does not drink06/26/2025Q3: How often do you have six or more drinks on one occasion?Never5ChildcareAnswerDate Recorded RkzobjwzgUmxsyng04/23/2020EmploymentAnswerDate RecordedEmploymentUnknown 03/21/2020Hunger ScreeningAnswerDate RecordedWithin the past 12 months we worried whether our food would run out before we got money to buy more.Never True06/26/2025Within the past 12 months the food we bought just didn't last and we didn't have money to get more.Never True06/26/2025Purpose - LifeAnswerDate RecordedPurpose and direction in ljpqKvrcyca17/12/2021CommentsNoSex and Gender InformationValueDate RecordedSex Assigned at BirthNot on fileLegal Sex Snjfzw2103/21/2020 1:58 PM EDTGender IdentityNot on fileSexual OrientationNot on filedocumented as of this encounter Last Filed Vital Signs Vital SignReadingTime TakenCommentsBlood Ohsvfknr70/7006/26/2025 9:18 AM EDT Pulse--Temperature--Respiratory Rate--Oxygen Saturation--Inhaled Oxygen Concentration--Jjavdd012.7 kg (239 lb 9.6 oz)06/26/2025 9:18 AM QQNOxiwcz701.5 cm (5' 2 )06/26/2025 9:18 AM EDTBody Mass Index43.8206/26/2025 9:18 AM EDT documented in this encounter Functional Status * AUDIT-C ScoreAnswerDate of EfwprflmfqGurdio100/28/2025 9:29 AM Nyla Miles MA * QuestionAnswerDate of AssessmentAuthorQ1: How often do you have a drink containing alcohol?Never06/26/2025 9:29 AM Nyla Miles MAQ2: How many drinks containing alcohol do you have on a typical day when you are drinking?Patient does not drink06/26/2025 9:29 AM Nyla Miles MA Q3: How often do you have six or more drinks on one occasion?Never06/26/2025 9:29 AM Nyla Miles MA documented as of this encounter Patient Instructions * Attachments The following attachments cannot be sent through Care Everywhere. * Calcium and vitamin D for bone health (Honduran) documented in this encounter Progress Notes * Naima Macedo, BROOKLYNN-LOOM SETTER - 06/26/2025 9:30 AM EDT Subjective Mariana Kelly is a pleasant 54 y.o. female who presents for medicare pelvic and clinical breast exam screening for cancer. The patient has no complaints today. The patient is not currently sexually active. Denies pelvic pain. Patient denies further post-menopausal vaginal bleeding. She was seen earlier this month with c/o dark brown vaginal discharge when wiping and pelvic cramping for 2 days. Pe lvic u/s yesterday showed Normal uterus with prominent endometrial echo stripe and measures 9.1 mm . Labs are pending. Patient denies domestic violence. Complaints today: none The patient is not taking hormone replacement therapy. Hot flashes - None Bladder issues - None Bowel issues - None History of abnormal Pap smear: no Last pap: 11/26/20 Family history of uterine or ovarian cancer: no Regular self breast exam: no Last mammogram: 06/25/25 (pending) Family history of breast cancer: no Family history of colon cancer: yes - maternal grandmother had pancreatic Family history of pancreatic or prostate cancer: no Working no How many children? 4 vaginal deliveries Smoker no Dexa Scan: never Cologuard done last year PHQ-9 screenin Flu shot: already received Primary care provider: AMARILIS Lee Patient was offered a medical small wind energy installer and declined. The following portions of the patient's history were reviewed and updated as appropriate: allergies, current medications, past family history, past medical history, past social history, past surgicalhistory, problem list, and medication reconciliation was completed including current medication andpost discharge medication. Review of Systems Constitutional: Negative. Respiratory: Negative. Negative for chest tightness and shortness of breath. Cardiovascular: Negative. Negative for chest pain and palpitations. Gastrointestinal: Negative. Negative for constipation, diarrhea, nausea and vomiting. Endocrine: Negative. Genitourinary: Positive for vaginal bleeding. Negative for pelvic pain. Musculoskeletal: Negative. Skin: Negative. Allergic/Immunologic: Negative. Neurological: Negative. Hematological: Negative. Psychiatric/Behavioral: Negative. Objective Vitals: 06/26/25 0918 BP: 98/70 Body mass index is 43.82 kg/m??. Physical Exam Vitals and nursing note reviewed. [...] lesion. Vagina: Normal. Cervix: Normal. Uterus: Normal. Not enlarged and not tender. Adnexa: Right adnexa normal and left adnexa normal. Right: No mass, tenderness or fullness. Left: No mass, tenderness or fullness. Comments: Brown discharge noted at cervical os, slight bleeding with collection of pap Musculoskeletal: General: Normal range of motion. Cervical back: Normal range of motion and neck supple. Skin: General: Skin is warm and dry. Neurological: Mental Status: She is alert and oriented to person, place, and time. Psychiatric: Mood and Affect: Mood normal. Speech: Speech normal. Behavior: Behavior normal. Thought Content: Thought content normal. Judgment: Judgment normal. Mariana was seen today for gynecologic exam. Diagnoses and all orders for this visit: Encounter for breast and pelvic examination Pap smear, as part of routine gynecological examination - Thin Prep Pap Test Standardized adult depression screening tool completed 1. Recommend breast self-awareness. Notify provider for any breast changes or concerns 2. Discussed taking a multivitamin. 3. Discussed Calcium and Vitamin D for prevention of osteoporosis. 4. Discussed need for yearly mammograms. 5. Patient to discuss colon cancer screening recommendations with PCP. 6. Educational material provided. 7. Questions answered. 8. Return for EMB. Discussed procedure. Patient to take 800 mg ibuprofen prior to appt. CEDRIC Cooley APRN-CNP Lisa M Krotzer, APRN-CNP 06/26/25 1017 documented in this encounter Plan of Treatment DateTypeDepartmentCare Team (Latest Contact Info)Scrmtlhmdnm75/06/2025 11:15 AM ESTProcedure visit [facility] [address] [place] [phone] Ellie Damon, TOOL AND DIE MAKER/DESIGNER-LOOM SETTER [address] [place] [address] 07/10/2025 3:00 PM ESTAppointment [facility] [address] [place] [phone] Naima Macedo, TOOL AND DIE MAKER/DESIGNER-LOOM SETTER [address] [place] [address] 07/10/2025 3:30 PM ESTAppointment [facility] - Ultrasound [address] [place] [phone] Naima Macedo TOOL AND DIE MAKER/DESIGNER-LOOM SETTER [address] [place] [address] documented as of this encounter Procedures Procedure NamePriorityDate/TimeAssociated DiagnosisCommentsTHIN PREP PAP TEST Htodtxm1706/26/2025 10:06 AM EDT Pap smear, as part of routine gynecological examination HIGH RISK HPV W/UWJRCwoaouj10/28/2025 10:06 AM EDT Pap smear, as part of routine gynecological examination documented in this encounter Results * High risk HPV w/agustín (06/26/2025 10:06 AM EDT)ComponentValueRef RangeTest MethodAnalysis TimePerformed AtPathologist SignatureHPV 16NegativeNegative 06/27/2025 3:07 PM [facility]ATORYHPV 18Negative Nqsedupw55/29/2025 3:07 PM [facility]ATORYOTHER HIGH RISK CKTUuxlxbswLiifdkin33/29/2025 3:07 PM [facility] LABORATORYComment:HPV types 31, 33, 35, 39, 45, 52, 56, 58, 59, 66, and 68 DNA were undetectable.Specimen (Source)Anatomical Location / LateralityCollection Method / VolumeCollection TimeReceived TimeThin Prep (Cervix/Endocervix) 06/26/2025 10:06 AM EDT1 5:17 AM EDT Narrative Authorizing ProviderResult TypeResult StatusNaima Macedo TOOL AND DIE MAKER/DESIGNER-CNPLAB BLOOD ORDERABLESFinal ResultPerforming OrganizationAddressCity/State/ZIP CodePhone Number [facility] [address] [place] [address], * Thin Prep Pap Test (06/26/2025 10:06 AM EDT)ComponentValueRef RangeTest Method Analysis TimePerformed AtPathologist SignatureCase ReportGynecologic Cytology Report ? Case: [id number] ? Authorizing Provider: ??Naima Macedo, TOOL AND DIE MAKER/DESIGNER-LOOM SETTER ?? Collected: ? 06/26/2025 1006 ? Ordering Location: ? [facility] Received: ?06/26/2025 1006 ? - [place] ? First Screen: ?JEANNE Almanza(ASCP) ? Specimen: ?Thin Prep Pap, Cervix/Endocervix ? 06/27/2025 10:50 AM [facility] LABORATORYSpecimen Adequacy Satisfactory for odsnaxjpph02/29/2025 10:50 AM [facility] LABORATORYInterpretationNEGATIVE FOR INTRAEPITHELIAL LESION OR MALIGNANCY 06/27/2025 10:50 AM [facility] at 1050 EDTAdditional InformationThe Pap test is a screening test with an inherent, but low, probability of error. The Pap test is primarily effective for the diagnosis and prevention of squamous cell carcinoma. Regular screening iscritical for prevention. ThinPrep liquid-based slides, which meet the Orthotics Technician criteria for automated screening, have been screened by the [employer] [facility] [employer] [facility] (as of 05/16/07) along with an additional manual rescreening by a refrigeration brazer/solderer and, if indicated, by a pathologist.06/27/2025 10:50 AM [facility] LABORATORYClinical Pmsugegwvybeelu98/29/2025 10:50 AM [facility] LABORATORYEmbedded Dmcfyu2306/27/2025 10:50 AM [facility] LABORATORYSpecimen (Source)Anatomical Location / LateralityCollection Method / VolumeCollection TimeReceived TimeThin Prep (Cervix/Endocervix)06/26/2025 10:06 AM EDT1 10:06 AM EDT Narrative Authorizing ProviderResult TypeResult Apolinar Macedo TOOL AND DIE MAKER/DESIGNER-LOOM SETTER PATHOLOGY/CYTOLOGY ORDERABLESFinal ResultPerforming OrganizationAddress City/State/ZIP CodePhone Number [facility] [address] [place] [address], documented in this encounter Visit Diagnoses Diagnosis Encounter for breast and pelvic examination- Primary Pap smear, as part of routine gynecological examination Screening for malignant neoplasm of the cervix Standardized adult depression screening tool completed documented in this encounter Additional Health Concerns AssessmentNoted TimePHQ-9 Depression Total Score: 9:28 AM EDTA Body Mass Index follow-up plan has been documented for the cgvslnc1801/19/2024 3:37 PM EDTdocumented as of this encounter Care Teams Team MemberRelationshipSpecialtyStart DateEnd Date Ellie Ingram APRN-SOBEIDA [address] [address] PCP - GeneralFamily Medicine09/22/24documented as of this encounter
--- OUTSIDE RECORDS SUMMARY | 2025-07-02 09:30 | XMS_ITS | Encounter Summary ---
Author Organization [facility] tem Address [facility] [place]-[id number] [address] [place] [address] Care Team Providers Care Director Of Admissions Name Role Phone Ellie Ingram APRN-SINTER FEEDER Primary Care Provide r Encounter Details DateTypeDepartmentCare Team (Latest Contact Info)Vkasiqlgsrv80/30/2025Orders Only [facility]necology [address] [facility] [place] [address] Naima Macedo, CEMENT AND CONCRETE PLANT WORKER-PASTORAL ASSISTANT [address] [place], [place] [phone] Mass of upper inner quadrant of right breast (Primary Dx); Abnormality of right breast on screening mammogram Social History Tobacco UseTypesPacks/DayYears UsedDateSmoking Tobacco: NeverSmokeless Tobacco: NeverAlcohol UseStandard Drinks/WeekCommentsYes0 (1 standard drink = 0.6 oz pure alcohol)occasionalPHQ-2AnswerDate RecordedTotal Xkiab794/28/2025AUDIT-CAnswer Date RecordedQ1: How often do you have a drink containing alcohol?Never 06/26/2025Q2: How many drinks containing alcohol do you have on a typical day when you are drinking?Patient does not drink06/26/2025Q3: How often do you have six or more drinks on one occasion?Never5ChildcareAnswerDate Recorded PhpjkknwuEpktfnt68/23/2020EmploymentAnswerDate RecordedEmploymentUnknown 03/21/2020Hunger ScreeningAnswerDate RecordedWithin the past 12 months we worried whether our food would run out before we got money to buy more.Never True06/26/2025Within the past 12 months the food we bought just didn't last and we didn't have money to get more.Never True06/26/2025Purpose - LifeAnswerDate RecordedPurpose and direction in omyjQoqtwgz87/12/2021CommentsNoSex and Gender InformationValueDate RecordedSex Assigned at BirthNot on fileLegal Sex Rctuyr2403/21/2020 1:58 PM EDTGender IdentityNot on fileSexual OrientationNot on filedocumented as of this encounter Plan of Treatment DateTypeDepartmentCare Team (Latest Contact Info)Afabmurdaim87/06/2025 11:15 AM ESTProcedure visit [facility]Gynecology [address] [facility] [place] [phone] Ellie Damon, CEMENT AND CONCRETE PLANT WORKER-PASTORAL ASSISTANT [address] [place] [address] 07/10/2025 3:00 PM ESTAppointment [facility] - Mammography/DEXA Imaging [address] [place] [phone] Naima Macedo, CEMENT AND CONCRETE PLANT WORKER-PASTORAL ASSISTANT [address] [place] [address] 07/10/2025 3:30 PM ESTAppointment [facility] - Ultrasound [address] [place] [phone] Naima Macedo, CEMENT AND CONCRETE PLANT WORKER-PASTORAL ASSISTANT [address] [place] [address] NameTypePriorityAssociated DiagnosesOrder ScheduleUltrasound breast limited rightImagingRoutine Mass of upper inner quadrant of right breast Abnormality of right breast on screening mammogram Expected: 06/28/2025, Expires: 06/28/2026Mammography diagnostic unilateral right with CADImagingRoutine Mass of upper inner quadrant of right breast Abnormality of right breast on screening mammogram Expected: 06/28/2025, Expires: 06/28/2026documented as of this encounter Visit Diagnoses Diagnosis Mass of upper inner quadrant of right breast- Primary Abnormality of right breast on screening mammogram documented in this encounter Additional Health Concerns AssessmentNoted TimePHQ-9 Depression Total Score: 9:28 AM EDTA Body Mass Index follow-up plan has been documented for the jokxesb4101/19/2024 3:37 PM EDTdocumented as of this encounter Care Teams Team MemberRelationshipSpecialtyStart DateEnd Date Ellie Ingram APRN-FNP [address] [place], [place] [address], [place] [address] PCP - GeneralFamily Medicine09/22/24documented as of this encounter
--- OUTSIDE RECORDS SUMMARY | 2025-07-02 09:30 | XMS_ITS | Encounter Summary ---
Author Organization [facility] tem Address [id number] [address] [place] [address] Care Team Providers Care Surgical Scrub Technician Name Role Phone Juan Jose Ellie OVERTON-AIR POLLUTION ANALYST Primary Care Provide r Encounter Details DateTypeDepartmentCare Team (Latest Contact Info)Uxzvrpzbrtq42/30/2025Results Follow-Up [facility] Women's Services - [facility] [address] [place] [phone] Naima Macedo, OUTGOING INSPECTOR-GAS LOAD DISPATCHER [address] [place] [address] Thin Prep Pap Test, High risk HPV w/agustín Social History Tobacco UseTypesPacks/DayYears UsedDateSmoking Tobacco: NeverSmokeless Tobacco: NeverAlcohol UseStandard Drinks/WeekCommentsYes0 (1 standard drink = 0.6 oz pure alcohol)occasionalPHQ-2AnswerDate RecordedTotal Tnxuw089/28/2025AUDIT-CAnswer Date RecordedQ1: How often do you have a drink containing alcohol?Never 06/26/2025Q2: How many drinks containing alcohol do you have on a typical day when you are drinking?Patient does not drink06/26/2025Q3: How often do you have six or more drinks on one occasion?Never5ChildcareAnswerDate Recorded GkbdgtgbzHwcyjmj08/23/2020EmploymentAnswerDate RecordedEmploymentUnknown 03/21/2020Hunger ScreeningAnswerDate RecordedWithin the past 12 months we worried whether our food would run out before we got money to buy more.Never True06/26/2025Within the past 12 months the food we bought just didn't last and we didn't have money to get more.Never True06/26/2025Purpose - LifeAnswerDate RecordedPurpose and direction in sikwIxnaclr55/12/2021CommentsNoSex and Gender InformationValueDate RecordedSex Assigned at BirthNot on fileLegal Sex Lpbrtu7303/21/2020 1:58 PM EDTGender IdentityNot on fileSexual OrientationNot on filedocumented as of this encounter Plan of Treatment DateTypeDepartmentCare Team (Latest Contact Info)Agldrgcyxdc86/06/2025 11:15 AM ESTProcedure visit [facility] Obstetrics/Gynecology [address] [facility] [place] [address] Ellie Damon, OUTGOING INSPECTOR-GAS LOAD DISPATCHER [address] [place] [address] 07/10/2025 3:00 PM ESTAppointment [facility] - Mammography/DEXA Imaging [address] [place] [address] Naima Macedo, OUTGOING INSPECTOR-GAS LOAD DISPATCHER [address] [place] [address] 07/10/2025 3:30 PM ESTAppointment [facility] - Ultrasound [address] [place] [address] Naima Macedo, OUTGOING INSPECTOR-GAS LOAD DISPATCHER [address] [place] [address] documented as of this encounter Visit Diagnoses Not on filedocumented in this encounter Additional Health Concerns AssessmentNoted TimePHQ-9 Depression Total Score: 9:28 AM EDTA Body Mass Index follow-up plan has been documented for the zdnbwwt9301/19/2024 3:37 PM EDTdocumented as of this encounter Care Teams Team MemberRelationshipSpecialtyStart DateEnd Date Ellie Ingram APRN-SOBEIDA [facility] [place] [address] PCP - GeneralFamily Medicine09/22/24documented as of this encounter
--- OUTSIDE RECORDS SUMMARY | 2025-07-02 09:30 | XMS_ITS | Encounter Summary ---
Author Organization [facility] tem Address [facility] [place]-[id number] [address] [place] [address] Care Team Providers Care Air Deodorizer Servicer Name Role Phone Ellie Ingram APRN-SOCIAL INSURANCE ADMINISTRATOR Primary Care Provide r Encounter Details DateTypeDepartmentCare Team (Latest Contact Info)Ygmdnubepxv12/30/2025Results Follow-Up [facility] Women's Services - [facility] [address] [place] [address] Naima Macedo, SALES DEPARTMENT CLERK-DISTRIBUTION SUPERINTENDENT [address] [place] [address] Mammography screening bilateral with CAD, Estradiol, Estrone, S, Additional followed-up results: 6 Social History Tobacco UseTypesPacks/DayYears UsedDateSmoking Tobacco: NeverSmokeless Tobacco: NeverAlcohol UseStandard Drinks/WeekCommentsYes0 (1 standard drink = 0.6 oz pure alcohol)occasionalPHQ-2AnswerDate RecordedTotal Tlvlh489/28/2025AUDIT-CAnswer Date RecordedQ1: How often do you have a drink containing alcohol?Never 06/26/2025Q2: How many drinks containing alcohol do you have on a typical day when you are drinking?Patient does not drink06/26/2025Q3: How often do you have six or more drinks on one occasion?Never5ChildcareAnswerDate Recorded CzughmdjcTajdcby85/23/2020EmploymentAnswerDate RecordedEmploymentUnknown 03/21/2020Hunger ScreeningAnswerDate RecordedWithin the past 12 months we worried whether our food would run out before we got money to buy more.Never True06/26/2025Within the past 12 months the food we bought just didn't last and we didn't have money to get more.Never True06/26/2025Purpose - LifeAnswerDate RecordedPurpose and direction in lhubFaadjbq17/12/2021CommentsNoSex and Gender InformationValueDate RecordedSex Assigned at BirthNot on fileLegal Sex Snnlij4003/21/2020 1:58 PM EDTGender IdentityNot on fileSexual OrientationNot on filedocumented as of this encounter Plan of Treatment DateTypeDepartmentCare Team (Latest Contact Info)Tzcxnxwsnin58/06/2025 11:15 AM ESTProcedure visit [facility] Obstetrics/Gynecology [address] [place] [phone] Ellie Damon, SALES DEPARTMENT CLERK-DISTRIBUTION SUPERINTENDENT [address] [facility] [address] [place], [place] [address] 07/10/2025 3:00 PM ESTAppointment [facility] - Mammography/DEXA Imaging [address] [place] [phone] Naima Macedo, SALES DEPARTMENT CLERK-DISTRIBUTION SUPERINTENDENT [address] [place] [address] 07/10/2025 3:30 PM ESTAppointment [facility] - Ultrasound [address] [place] [address] Naima Macedo, SALES DEPARTMENT CLERK-DISTRIBUTION SUPERINTENDENT [address] [place] [address] documented as of this encounter Visit Diagnoses Not on filedocumented in this encounter Additional Health Concerns AssessmentNoted TimePHQ-9 Depression Total Score: 9:28 AM EDTA Body Mass Index follow-up plan has been documented for the qywvyif0201/19/2024 3:37 PM EDTdocumented as of this encounter Care Teams Team MemberRelationshipSpecialtyStart DateEnd Date Ellie Ingram APRN-SOBEIDA [facility] [place] [address] PCP - GeneralFamily Medicine09/22/24documented as of this encounter
--- OUTSIDE RECORDS SUMMARY | 2025-07-02 09:30 | XMS_ITS | Clinical Summary ---
Author Organization [facility] Address [address] [place] [address] Phone Care Team Providers Care Investment Counselor Name Role Phone Ellie Ingram [employer] Primary Care Provider Dileep Ceja MD Unavailable [phone] Allergies No known active allergies Medications MedicationSigDispense [...] ProblemNoted DateDiagnosed DateLumbosacral spondylosis without myelopathy 02/01/2024Lumbar etmlfywndbp41/01/2022pinal stenosis of lumbar region without neurogenic epaimyhqdmzs73/01/2022egenerative lumbar disc12/10/2021 Encounters DateTypeDepartmentCare FsrvUpipxmxzalv14/02/2025 1:15 PM EDTOffice Visit [facility] [address] [phone] Dileep Ceja MD Postural dizziness with near syncope Discharge Disposition: Home05/31/2025Travelfrom Last 3 Months Social History Tobacco UseTypesPacks/DayYears UsedDateSmoking Tobacco: NeverSmokeless Tobacco: Never Tobacco Cessation:Counseling Given: Not Answered Alcohol UseStandard Drinks/WeekCommentsNever0 (1 standard drink = 0.6 oz pure alcohol)CommentsUnknownSex and Gender InformationValueDate RecordedSex Assigned at BirthNot on fileLegal KazHjpuhj30/19/2024 5:04 PM ESTGender Identity Not on fileSexual OrientationNot on file Last Filed Vital Signs Vital SignReadingTime TakenCommentsBlood Sjjswoto125/7610 1:27 PM EDT Govps6325 1:27 PM EDTTemperature--Respiratory Rate--Oxygen Ljpbariqdz97% 11/16/2024 11:01 AM EDTInhaled Oxygen Concentration--Isgloz778 kg (242 lb 12.8 oz)05/31/2025 1:27 PM PXPYmleoi094.5 cm (5' 2 )05/31/2025 1:27 PM EDTBody Mass Index44.411 1:27 PM EDT Plan of Treatment DateTypeDepartmentCare Team (Latest Contact Info)Bcejezdqfam45/02/2026 1:30 PM EDTOffice Visit [facility] [address] [place] [phone] [place] [phone] [facility] [address] [facility] [address] [place] [address] Health MaintenanceDue DateLast DoneCommentsCT Megnxoqnhkbj74/15/1972Colonoscopy 1971Colorectal Cancer Yzdztpzxc62/15/1972FIT-DNA (Cologuard)1971FIT 1971HIV Nfuxbciag67/15/1741Hrrbnxmivkawc35/15/1972Welcome to Medicare Visit1971MMR Vaccines (1 of 1 - Standard series)11/11/1972Diabetes Scwvdmtyb74/15/1990Hepatitis C Jruueggtz88/15/1990CKD: Urine Protein Screening 11/11/1990Hepatitis B Vaccines (1 of 3 - 19+ 3-dose series)11/11/1990 Pneumococcal Vaccine (1 of 2 - PCV)11/11/1990Cervical Cancer Hqjhqpnoj37/15/1993 HPV/Gpntoe4911/11/1992Pap Smear11/11/1992DTaP/Tdap/Td Vaccines (1 - Tdap) 11/11/1993Zoster Vaccines (1 of 2)11/11/20214263Bwekbzvic35/05/202405/12/2022, 01/01/2023, 01/01/2023Influenza Vaccine (#1)509/OVID-19 Vaccine ( season)2025TSH Level/05/2025Lipid Panel05/09/2030 05/09/2025HIB VaccinesAged OutNo longer eligible based on patient's age to complete this topicHPV VaccinesAged OutNo longer eligible based on patient's age to complete this topicHepatitis A VaccinesAged OutNo longer eligible based on patient's age to complete this topicIPV VaccinesAged OutNo longer eligible based on patient's age to complete this topicMeningococcal VaccineAged OutNo longer eligible based on patient's age to complete this topicRotavirus VaccinesAged Out No longer eligible based on patient's age to complete this topic Insurance Care Teams Team MemberRelationshipSpecialtyStart DateEnd Date Ellie Ingram, [employer] [address] [place] [phone] PCP - GeneralFamily Pyqsivkq36/19/24 Dileep Ceja MD [address] [address] Consulting PhysicianCardiology11/09/24
--- OUTSIDE RECORDS SUMMARY | 2025-07-02 09:30 | XMS_ITS | Clinical Summary ---
Author Organization [employer] tem Address [id number] [address] [place] [address] Care Team Providers Care Visual Associate Name Role Phone Ellie Ingram APRN-AGRICULTURAL SPECIALIST Primary Care Provide r Allergies No known active allergies Medications MedicationSigDispense QuantityRefillsLast FilledStart DateEnd DateStatus JARDIANCE 10 mg tablet tablet Take 1 tablet (10 mg total) by mouth in the morning.12/15/2023ctive fludrocortisone (FLORINEF) 0.1 mg tablet Take 1 tablet (0.1 mg total) by mouth in the morning.12/15/2023ctive metoprolol tartrate (LOPRESSOR) 25 mg tablet Take 1 tablet (25 mg total) by mouth in the morning and 1 tablet (25 mg total) before bedtime.12/15/2023ctive topiramate (TOPAMAX) 25 mg tablet Take 1 [...] and 1 tablet (600 mg total) before bedtime.6Active ondansetron (ZOFRAN) 8 mg tablet Take 1 tablet (8 mg total) by mouth every 8 (eight) hours as needed.05/10/2025 Active semaglutide (OZEMPIC) 0.25 mg or 0.5 mg (2 mg/3 mL) pen injector INJECT 0.25mg SUBCUTANEOUSLY (UNDER THE SKIN) ONCE A WEEK5Active terbinafine (LamISIL) 250 mg tablet Take 1 tablet (250 mg total) by mouth in the morning.5Active midodrine (PROAMATINE) 2.5 mg tablet TAKE 1 TABLET BY MOUTH THREE TIMES DAILY (IN THE MORNING, midday, and late afternoon)5Active pregabalin (LYRICA) 75 mg capsule TAKE 1 CAPSULE BY MOUTH TWICE DAILY MUST LAST 30 DAYS5Active traMADoL (ULTRAM) 50 mg tablet TAKE 1 TABLET BY MOUTH DAILY NEEDED FOR PAIN MUST LAST 30 DAYS06/20/2025 Active JARDIANCE 25 mg tablet tablet Take 1 tablet (25 mg total) by mouth.5Active topiramate (TOPAMAX) 50 mg tablet TAKE 1 TABLET BY MOUTH DAILY if medication is ineffective by 3 (THREE) days, TAKE 2 RYEMGSE60/09/2025Active lisinopriL (PRINIVIL,ZESTRIL) 20 mg tablet Take 1 tablet (20 mg total) by mouth in the morning.06/26/2025Discontinued (Therapy completed) gabapentin (NEURONTIN) 300 mg capsule Take 1 capsule (300 mg total) by mouth 3 (three) times a day.06/26/2025 Discontinued(Therapy completed) amitriptyline (ELAVIL) 25 mg tablet Take 1 tablet (25 mg total) by mouth nightly.Discontinued (Therapy completed) ESGIC 50-325-40 mg per tablet Take 1 tablet by mouth every 4 (four) hours as needed for migraine.06/26/2025 Discontinued(Therapy completed) cetirizine (ZyrTEC) 10 mg tablet Take 1 tablet (10 mg total) by mouth in the morning. Discontinued(Therapy completed) TRULICITY 3 mg/0.5 mL pen injector Inject 1 mg under the skin once a week.Discontinued(Therapy completed) DULoxetine (CYMBALTA) 60 mg capsule Take 1 capsule (60 mg total) by mouth in the morning and 1 capsule (60 mg total) before bedtime.Discontinued(Therapy completed) hydrOXYzine (ATARAX) 50 mg tablet Take 1 tablet (50 mg total) by mouth every 8 (eight) hours as needed.11/18/2023 06/26/2025Discontinued(Therapy completed) ondansetron ODT (ZOFRAN ODT) 4 mg disintegrating tablet Dissolve 1 tablet (4 mg total) on tongue in the morning and 1 tablet (4 mg total) at noon and 1 tablet (4 mg total) before bedtime. Discontinued(Therapy completed) pantoprazole (PROTONIX) 20 mg EC tablet Take 1 tablet (20 mg total) by mouth every morning before breakfast.12/15/2023 06/26/2025Discontinued(Therapy completed) spironolactone (ALDACTONE) 100 mg tablet Take 1 tablet (100 mg total) by mouth in the morning. Discontinued(Therapy completed) tiZANidine (ZANAFLEX) 4 mg tablet Take 1 tablet (4 mg total) by mouth every 8 (eight) hours as needed.12/15/2023 06/26/2025Discontinued(Therapy completed) rimegepant (NURTEC ODT) 75 mg disintegrating tablet Dissolve 1 tablet (75 mg total) on tongue as needed.Expired Immunization, In Clinic, Indications:Flu vaccine needonce. Sign this order to satisfy the OSBOP Positive ID requirements for immunization orders.Expired Active Problems ProblemNoted DateDiagnosed DateDegenerative lumbar disc12/10/2021MI 40.0-44.9, adult12/10/2021 Overview (12/10/2021): Discussed BMI at well woman visit Encounters DateTypeDepartmentCare RwnkCwgvjlvbkjr55/30/2025Results Follow-Up [facility] Women[facility] Services - [facility] [address] [place] [address] Naima Macedo APRN-CNP Thin Prep Pap Test, High risk HPV w/geno1Results Follow-Up [facility] Services - [facility] [address] [place] [address] Naima Macedo, AMARILIS Mammography screening bilateral with CAD, Estradiol, Estrone, S, Additional followed-up results: Orders Only [facility]icians Obstetrics/Gynecology [address] [place] [address] Naima Macedo, AMARILIS Mass of upper inner quadrant of right breast (Primary Dx); Abnormality of right breast on screening wvsaiomza64/28/2025 9:30 AM EDTOffice Visit [facility] [place] [address] [place] [address] Encounter for breast and pelvic examination (Primary Dx); Pap smear, as part of routine gynecological examination; Standardized adult depression screening tool vbjjhuvpy40/27/2025 1:00 PM EDT - 06/25/2025 11:59 PM EDTHospital Encounter [facility] - [facility] [address] [place] [phone] Naima Macedo APRN-CNP Encounter for screening mammogram for malignant neoplasm of breast Discharge Disposition: Home06/25/2025 12:26 PM EDT - 06/25/2025 12:59 PM EDT Hospital Encounter [facility] - Ultrasound [address] [place] [phone] Naima Macedo APRN-CNP Postmenopausal bleeding Discharge Disposition: Home06/25/20250125Ypcdqs65/16/1589Nrwhmt65/08/2025 2:15 PM EDTOffice Visit [facility] - [facility] [address] [address] Postmenopausal bleeding (Primary Dx); Flu vaccine need; Encounter for screening mammogram for malignant neoplasm of breast; Amenorrhea; Vasomotor symptoms due to menopause; Perimenopausal vasomotor endnjvql16/08/2025Travelfrom Last 3 Months Immunizations ImmunizationAdministration DatesNext DueInfluenza, Im Flucelvax (Pf)06/06/2025 Influenza, Injectable, quadrivalent (PF)05/15/2021 Family History Medical HistoryRelationNameCommentsHypertensionFatherDiabetesMaternal GrandfatherHeart failureMaternal GrandfatherDiabetesMaternal Grandmother Pancreatic cancerMaternal GrandmotherHypertensionMotherLung cancerMotherDiabetes Paternal GrandfatherDiabetesPaternal GrandmotherBreast cancerNeg HxRelationName StatusCommentsFatherAliveMaternal GrandfatherMaternal GrandmotherMotherDeceased Paternal GrandfatherPaternal Grandmother Social History Tobacco UseTypesPacks/DayYears UsedDateSmoking Tobacco: NeverSmokeless Tobacco: Never Tobacco Cessation:Counseling Given: Not Answered Alcohol UseStandard Drinks/WeekCommentsYes0 (1 standard drink = 0.6 oz pure alcohol)occasionalPHQ-2AnswerDate RecordedTotal Tkawp808UDIT-CAnswer Date RecordedQ1: How often do you have a drink containing alcohol?Never 06/26/2025Q2: How many drinks containing alcohol do you have on a typical day when you are drinking?Patient does not drink06/26/2025Q3: How often do you have six or more drinks on one occasion?Never06/26/2025hildcareAnswerDate Recorded OwlcxhjlwJzcyuzk18/23/2020EmploymentAnswerDate RecordedEmploymentUnknown 03/21/2020Hunger ScreeningAnswerDate RecordedWithin the past 12 months we worried whether our food would run out before we got money to buy more.Never True06/26/2025Within the past 12 months the food we bought just didn't last and we didn't have money to get more.Never True06/26/2025Purpose - LifeAnswerDate RecordedPurpose and direction in soraMfakigt80/12/2021CommentsNoSex and Gender InformationValueDate RecordedSex Assigned at BirthNot on fileLegal Sex Cjgkth1303/21/2020 1:58 PM EDTGender IdentityNot on fileSexual OrientationNot on file Last Filed Vital Signs Vital SignReadingTime TakenCommentsBlood Tnvskzvs36/7006/26/2025 9:18 AM EDT Daqwk973709/23/2024 2:06 AM TGNOcpwzmwigqe66.4 ??C (97.5 ??F)09/22/2024 10:35 PM ESTRespiratory Fgcb998809/23/2024 1:05 AM ESTOxygen Thjsvfvkjd471%09/23/2024 2:35 AM ESTInhaled Oxygen Concentration--Clsmqc415.7 kg (239 lb 9.6 oz)06/26/2025 9:18 AM ECGThofwz949.5 cm (5' 2 )06/26/2025 9:18 AM EDTBody Mass Index43.82 06/26/2025 9:18 AM EDT Plan of Treatment DateTypeDepartmentCare Team (Latest Contact Info)Jimfeopsbjw34/06/2025 11:15 AM ESTProcedure visit [facility] [address] [facility] [address] Ellie Damon, INDEPENDENT SALES REPRESENTATIVE-WELDER APPRENTICE ARC [address] [facility] [address] [place] [address] 07/10/2025 3:00 PM ESTAppointment [facility] - [facility] [address] [place] [phone] Naima Macedo, INDEPENDENT SALES REPRESENTATIVE-WELDER APPRENTICE ARC [address] [place], [place] [address] 07/10/2025 3:30 PM ESTAppointment [facility] - Ultrasound [address] [place] [phone] Naima Macedo, INDEPENDENT SALES REPRESENTATIVE-WELDER APPRENTICE ARC [address] [place] [address] Health MaintenanceDue DateLast DoneCommentsDTaP,Tdap and Td Vaccines (1 - Tdap) 11/11/1990Zoster (Shingles) Vaccine (1 of 2)11/11/2021dult BMI Follow Up Plan /OVID-19 Vaccine (3 - 2024- season)/03/2021, 05/15/20219135Tkfuxrzay64, 01/01/2023, 01/01/2023dult BMI Xtipiksdk33Depression Gmaceglyy53Tobacco Hbrpsnimt09Pap Smear, 06/26/2025, 11/26/2020, Additional history existsInfluenza NligeleByodgshfn88/08/2025, 05/15/2021 Medical Devices Not on file Procedures Procedure NamePriorityDate/TimeAssociated DiagnosisCommentsTHIN PREP PAP TEST Mlekkug7106/26/2025 10:06 AM EDT Pap smear, as part of routine gynecological examination HIGH RISK HPV W/PUFWXwgmapy20/28/2025 10:06 AM EDT Pap smear, as part of routine gynecological examination US PELVIC WITH QTMNQBPOYZTKDzlltcq71/27/2025 1:33 PM EDT Postmenopausal bleeding MAMM SCREENING BILATERAL W OAXYlcjhvr24/27/2025 1:18 PM EDT Encounter for screening mammogram for malignant neoplasm of breast TESTOSTERONE, FREE AND TOTAL, FEMALE OR LWDUIMDGZwigzox92/27/2025 12:21 PM EDT Postmenopausal bleeding Amenorrhea Perimenopausal vasomotor symptoms UNLISTED LAB DNTUJxuwacb67/27/2025 12:21 PM EDT Postmenopausal bleeding RGXBWLEZAcrcagv40/27/2025 12:21 PM EDT Postmenopausal bleeding Amenorrhea Perimenopausal vasomotor symptoms DHEA-MOIOVTPLamxcgs83/27/2025 12:21 PM EDT Postmenopausal bleeding Amenorrhea Perimenopausal vasomotor symptoms VITAMIN D 25 JGQYMMNPomgkue73/27/2025 12:21 PM EDT Postmenopausal bleeding Amenorrhea Perimenopausal vasomotor symptoms SEX HORMONE BINDING OTNXTHWRBwspiml21/27/2025 12:21 PM EDT Postmenopausal bleeding Amenorrhea Perimenopausal vasomotor symptoms AVAFWNSFNSHJFxdjqxp55/27/2025 12:21 PM EDT Postmenopausal bleeding Amenorrhea Perimenopausal vasomotor symptoms ESTRONE, BErkdzmm95/27/2025 12:21 PM EDT Postmenopausal bleeding Amenorrhea Perimenopausal vasomotor symptoms DOSESXMOAZtkphfl17/27/2025 12:21 PM EDT Postmenopausal bleeding Amenorrhea Perimenopausal vasomotor symptoms from Last 3 Months Results * Thin Prep Pap Test (06/26/2025 10:06 AM EDT)ComponentValueRef RangeTest Method Analysis TimePerformed AtPathologist SignatureCase ReportGynecologic Cytology Report ? Case: [id number] ? Authorizing Provider: ??Naima Macedo, INDEPENDENT SALES REPRESENTATIVE-WELDER APPRENTICE ARC ?? Collected: ? 06/26/2025 1006 ? [facility] Received: ?06/26/2025 1006 ? - [place] ? First Screen: ?JEANNE Almanza(ASCP) ? Specimen: ?Thin Prep Pap, Cervix/Endocervix ? 06/27/2025 10:50 AM [facility] LABORATORYSpecimen Adequacy Satisfactory for uqjkhtcnhy48/29/2025 10:50 AM [facility] LABORATORYInterpretationNEGATIVE FOR INTRAEPITHELIAL LESION OR MALIGNANCY 06/27/2025 10:50 AM [facility] at 1050 EDTAdditional InformationThe Pap test is a screening test with an inherent, but low, probability of error. The Pap test is primarily effective for the diagnosis and prevention of squamous cell carcinoma. Regular screening iscritical for prevention. ThinPrep liquid-based slides, which meet the Disulfurizer Tender criteria for automated screening, have been screened by the ThinPrep Imaging System (as of 05/16/07) along with an additional manual rescreening by a director of clinical services and, if indicated, by a pathologist.06/27/2025 10:50 AM [facility] LABORATORYClinical Laildgefpfqortf56/29/2025 10:50 AM [facility] LABORATORYEmbedded Dxdtbz0406/27/2025 10:50 AM [facility] LABORATORYSpecimen (Source)Anatomical Location / LateralityCollection Method / VolumeCollection TimeReceived TimeThin Prep (Cervix/Endocervix)06/26/2025 10:06 AM EDT1 10:06 AM EDT Narrative Authorizing ProviderResult TypeResult StatusNaima Bedollaferny INDEPENDENT SALES REPRESENTATIVE-WELDER APPRENTICE ARC PATHOLOGY/CYTOLOGY ORDERABLESFinal ResultPerforming OrganizationAddress City/State/ZIP CodePhone Number [facility] [address] [place] [address], * High risk HPV w/agustín (06/26/2025 10:06 AM EDT)ComponentValueRef RangeTest MethodAnalysis TimePerformed AtPathologist SignatureHPV 16NegativeNegative 06/27/2025 3:07 PM [facility] LABORATORYHPV 18Negative Kczkoqqx81/29/2025 3:07 PM [facility] LABORATORYOTHER HIGH RISK RAEKbuqarlqTrkvhgop45/29/2025 3:07 PM [facility] LABORATORYComment:HPV types 31, 33, 35, 39, 45, 52, 56, 58, 59, 66, and 68 DNA were undetectable.Specimen (Source)Anatomical Location / LateralityCollection Method / VolumeCollection TimeReceived TimeThin Prep (Cervix/Endocervix) 06/26/2025 10:06 AM EDT1 5:17 AM EDT Narrative Authorizing ProviderResult TypeResult StatusNaima Jose L Remington INDEPENDENT SALES REPRESENTATIVE-CNPLAB BLOOD ORDERABLESFinal ResultPerforming OrganizationAddressty/State/ZIP CodePhone Number [facility] [address] [place] [address], * Ultrasound pelvic with transvaginal (06/25/2025 1:33 [...] on 06/25/2025 5:01 PM Authorizing ProviderResult TypeResult StatusLisa Jose L Macedo INDEPENDENT SALES REPRESENTATIVE-CNPIMG US ORDERABLESFinal Result * (ABNORMAL) Mammography screening bilateral with CAD (06/25/2025 1:18 PM EDT) Anatomical RegionLateralityModalityBreastBilateralMammographySpecimen (Source) Anatomical Location / LateralityCollection Method / VolumeCollection Time Received Time06/27/2025 12:38 PM EDT Narrative 06/27/2025 12:40 PM EDT JOSELITO HARMON YOUNG 1970 [id number] EXAM: MAMM SCREENING BILATERAL W CAD, 06/25/2025 [...] b ADDITIONAL I FDA Accredited Performing Facility: [facility] - [facility]ography[facility]DEXA [facility] [address] [place] [address] Procedure Note Alicia Lemus MD - 06/27/2025 JOSELITO VIDAL 1970 [id number] EXAM: MAMM SCREENING BILATERAL W CAD, 06/25/2025 [...] b ADDITIONAL I FDA Accredited Performing Facility: [facility] - Mammography/DEXA Imaging [address] [place] [address] Authorizing ProviderResult TypeResult StatusLisa Jose L Macedo INDEPENDENT SALES REPRESENTATIVE-CNPNORMAN REGIONAL [facility]ALTHPLEX – [facility] MAMMOGRAPHY ORDERABLESFinal Result * Estrone, S (06/25/2025 12:21 PM EDT)ComponentValueRef RangeTest MethodAnalysis TimePerformed AtPathologist SignatureESTRONE,S29pg/mL06/27/2025 8:36 AM EDT [facility] LABORATORIESComment: REFERENCE VALUE Premenopausal :17-200 Postmenopausal : 7-40 ADDITIONAL INFORMATION This test was developed and its performance characteristics determined by [facility] in a manner consistent with CLIA requirements. This test has not been cleared or approved by the U.S. Food and Drug Administration. Test Performed by: [facility] [address] [place] [address] Phosphatic Fertilizer Supervisor: Belinda Morris Ph.D.; CLIA# [id number] Specimen (Source)Anatomical Location / LateralityCollection Method / Volume Collection TimeReceived TimeBloodVenous blood / UnknownVenipuncture / Unknown 06/25/2025 12:21 PM EDT1 12:24 PM EDT Narrative Authorizing ProviderResult TypeResult StatusLisa Jose L Krotzer INDEPENDENT SALES REPRESENTATIVE-CNPLAB BLOOD ORDERABLESFinal ResultPerforming OrganizationAddressCity/State/ZIP CodePhone Number [facility] [address] * Unlisted Lab Test (06/25/2025 12:21 PM EDT)ComponentValueRef RangeTest Method Analysis TimePerformed AtPathologist SignatureLOOKSent to Reference Laboratory. 06/25/2025 6:46 PM [facility] LABORATORYSpecimen (Source) Anatomical Location / LateralityCollection Method / VolumeCollection Time Received TimeBloodVenous blood / UnknownVenipuncture / Zmlyohh3106/25/2025 12:21 PM EDT1 12:24 PM EDT Narrative Authorizing ProviderResult TypeResult StatusLisa Jose L Krotzer INDEPENDENT SALES REPRESENTATIVE-CNPLAB BLOOD ORDERABLESFinal ResultPerforming OrganizationAddressCity/State/ZIP CodePhone Number [facility] [address] [place] [address], [place] [phone] * Testosterone, Free and Total,with SHBG,Female, Children or Individuale on Testosterone-Suppressing Hormone Therapy (06/25/2025 12:21 PM EDT)Component ValueRef RangeTest MethodAnalysis TimePerformed AtPathologist Signature TESTOSTERONE BY MASS JCWP658 - 55 ng/dL06/30/2025 4:01 PM EDTAAlbatross Security ForcesP LABORATORIES Comment: REFERENCE INTERVAL: Testosterone by Director Independent Females Premenopausal ??9-55 ng/dL Postmenopausal 5-32 ng/dL INTERPRETIVE INFORMATION: Testosterone by Director Independent Free or bioavailable testosterone measurements may provide supportive information. For individuals on testosterone-suppressing hormone therapies (e.g., antiandrogens or estrogens), refer to cisgender female reference intervals. For a complete set of all established reference intervals, refer to db4objects/Tests/Pub/[id number]. This test was developed and its performance characteristics determined by [facility]. It has not been cleared or approved by the [place] Food and Drug Administration. This test was performed in a CLIA certified laboratory and is intended for clinical purposes. TESTOSTERONE, FREE BY MASS SPEC2.60.6 - 3.8 pg/mL06/30/2025 4:01 PM EDTACorsa TechnologyComment: INTERPRETIVE INFORMATION: Testosterone, Free by Director Independent Free testosterone concentration is calculated using total testosterone (measured by mass spectrometry) and the binding constant of testosterone and sex hormone-binding globulin (SHBG). For individuals on testosterone-suppressing hormone therapies (e.g., antiandrogens or estrogens), refer to cisgender female reference intervals. For a complete set of all established reference intervals, refer to db4objects/Tests/Pub/[id number]. This test was developed and its performance characteristics determined by [facility]. It has not been cleared or approved by the [place] Food and Drug Administration. This test was performed in a CLIA certified laboratory and is intended for clinical purposes. Performed By: [facility] [address] [place] [id number] Buying Agent: Yobani Arreola MD, PhD CLIA Number: [id number] SEX HORMONE BINDING [id number] - 125 nmol/L108/30/2024 4:01 PM EDTARUP LABORATORIESComment: REFERENCE INTERVAL: Sex Hormone Binding Globulin Access complete set of age- and/or gender-specific reference intervals for this test in the [facility] Test Directory (SurveySnap). Specimen (Source)Anatomical Location / LateralityCollection Method / Volume Collection TimeReceived TimeBloodVenous blood / UnknownVenipuncture / Unknown 06/25/2025 12:21 PM EDT1 12:24 PM EDT Narrative Authorizing ProviderResult TypeResult StatusLisa Jose L Nandotom INDEPENDENT SALES REPRESENTATIVE-CNPLAB BLOOD ORDERABLESFinal ResultPerforming OrganizationAddressCity/State/ZIP CodePhone Number [facility] [address] [place] [address], * Sex hormone binding globulin (06/25/2025 12:21 PM EDT)ComponentValueRef Range Test MethodAnalysis TimePerformed AtPathologist SignatureSEX HORMONE BINDING IDKBNQBU94.016.8 - 125.2 nmol/L1 7:22 PM EDOHIO STATE HARDING HOSPITAL LABORATORYComment: PT TYPE ? AGE ?RANGE MALES ?20-50Y ?13.3-89.5 mmol/L FEMALES ?20-46Y ?18.2-135.5 mmol/L FEMALES POSTMENO ? 47-91Y ?16.8-125.2 mmol/L Specimen (Source)Anatomical Location / LateralityCollection Method / Volume Collection TimeReceived TimeBloodVenous blood / UnknownVenipuncture / Unknown 06/25/2025 12:21 PM EDT1 12:24 PM EDT Narrative Authorizing ProviderResult TypeResult StatusLisa M Krotzer INDEPENDENT SALES REPRESENTATIVE-ATHOL HOSPITALLAB BLOOD ORDERABLESFinal ResultPerforming OrganizationAddressCity/State/ZIP CodePhone Number [facility] [address] [place] [address], * Vitamin D 25 hydroxy (06/25/2025 12:21 PM EDT)ComponentValueRef RangeTest MethodAnalysis TimePerformed AtPathologist SignatureVITAMIN D 25 HYD TOT34.6 30.0 - 100.0 ng/mL06/25/2025 7:33 PM [facility] Specimen (Source)Anatomical Location / LateralityCollection Method / Volume Collection TimeReceived TimeBloodVenous blood / UnknownVenipuncture / Unknown 06/25/2025 12:21 PM EDT1 12:24 PM EDT Narrative [facility] - 06/25/2025 7:33 PM EDT Vitamin D status 25 [place] Vitamin D Deficiency <20 ng/mL Insufficiency ? 20-29 ng/mL Sufficiency ? 30-100 ng/mL Toxicity >100 ng/mL NOTE: A pediatric reference range has not been established by the yarn packer of this kit. The [place] [employer] recommends a Vitamin D level of = or >20ng/mL in infants and children. Authorizing ProviderResult TypeResult StatusNaima Jose L Bedollaferny INDEPENDENT SALES REPRESENTATIVE-ATHOL HOSPITALLAB BLOOD ORDERABLESFinal ResultPerforming OrganizationAddressCity/State/ZIP CodePhone Number [facility] [address] [place] [address], * Progesterone (06/25/2025 12:21 PM EDT)ComponentValueRef RangeTest Method Analysis TimePerformed AtPathologist SignaturePROGESTERONE0.9ng/mL06/25/2025 7:23 PM [facility] LABORATORYComment: FEMALES: 1st Tri: ??4.7-50.7 ng/ml 2nd Tri: ??19.4-45.3 ng/ml ? MENSTRUATING FEMALES: Follicular: ??0.3-1.5 ng/ml Mid Luteal: ??5.2-18.6 ng/ml Post [place]: <0.1-0.8 ng/ml Specimen (Source)Anatomical Location / LateralityCollection Method / Volume Collection TimeReceived TimeBloodVenous blood / UnknownVenipuncture / Unknown 06/25/2025 12:21 PM EDT1 12:24 PM EDT Narrative Authorizing ProviderResult TypeResult StatusLisa Jose L Collierzer INDEPENDENT SALES REPRESENTATIVE-Lightning GamingLAB BLOOD ORDERABLESFinal ResultPerforming OrganizationAddressCity/State/ZIP CodePhone Number [facility] [place] [address], * DHEA-sulfate (06/25/2025 12:21 PM EDT)ComponentValueRef RangeTest Method Analysis TimePerformed AtPathologist SignatureDHEA S438 - 188 ug/dL06/25/2025 7:22 PM [facility] LABORATORYSpecimen (Source)Anatomical Location / LateralityCollection Method / VolumeCollection TimeReceived Time BloodVenous blood / UnknownVenipuncture / Garrvvh6906/25/2025 12:21 PM EDT 06/25/2025 12:24 PM EDT Narrative Authorizing ProviderResult TypeResult StatusLisa Jose L Krotzer INDEPENDENT SALES REPRESENTATIVE-CNPLAB BLOOD ORDERABLESFinal ResultPerforming OrganizationAddressty/State/ZIP CodePhone Number [facility] [address] [place] [address], * Estradiol (06/25/2025 12:21 PM EDT)ComponentValueRef RangeTest MethodAnalysis TimePerformed AtPathologist WwdwdjberPSPGDPQTE93.7pg/mL06/25/2025 7:48 PM EDT [facility]ORATORYSpecimen (Source)Anatomical Location / LateralityCollection Method / VolumeCollection TimeReceived TimeBloodVenous blood / UnknownVenipuncture / Sutaltj6206/25/2025 12:21 PM EDT1 12:24 PM EDT Narrative [facility] - 06/25/2025 7:48 PM EDT NON- FEMALES Mid follicular: 25-115 pg/mL Ovulatory Peak: 32.1-517 pg/mL Mid Luteal: 36.5-246 pg/mL Post-Menopausal Females: <15.0-25.1 pg/mL (Not on hormone therapy) The Access Sensitive Estradiol assay results are not intended to be used to measure the effectiveness of exogeneous Estradiol supplementation, for example, when the patient is on hormone replacement therapy. The presence of estradiol drug analogues and their metabolites could have an impact on estradiol recovery when using this assay. Authorizing ProviderResult TypeResult StatusNaima Macedo INDEPENDENT SALES REPRESENTATIVE-CNPLAB BLOOD ORDERABLESFinal ResultPerforming OrganizationAddressCity/State/ZIP CodePhone Number [facility] [address] [place] [address], * Cortisol (06/25/2025 12:21 PM EDT)ComponentValueRef RangeTest MethodAnalysis TimePerformed AtPathologist SignatureCORTISOL, TOTAL11.7ug/dL06/25/2025 7:16 PM [facility] LABORATORYSpecimen (Source)Anatomical Location / LateralityCollection Method / VolumeCollection TimeReceived TimeBloodVenous blood / UnknownVenipuncture / Airudnh9206/25/2025 12:21 PM EDT1 12:24 PM EDT Narrative [facility] - 06/25/2025 7:16 PM EDT Due to the diurnal variation of cortisol levels in normal subjects, all cortisol measurments should be referenced to the time of day of sample collection. AM Cortisol Age>=6 6.7-22.4 ug/dL PM Cortisol Age>=6 <10 ug/dL Authorizing ProviderResult TypeResult StatusNaima Jose L Macedo INDEPENDENT SALES REPRESENTATIVE-CNPLAB BLOOD ORDERABLESFinal ResultPerforming OrganizationAddressCity/State/ZIP CodePhone Number [facility] [address] [place] [address], from Last 3 Months Insurance Care Teams Team MemberRelationshipSpecialtyStart DateEnd Ellie Ingram APRN-SOBEIDA [address] [place], [place] [address]MALCOLM [place] [address] PCP - GeneralFamily Medicine09/22/24
--- OUTSIDE RECORDS SUMMARY | 2025-07-02 09:30 | XMS_ITS | Clinical Summary ---
Author Organization [facility] Address [address] [place] [address] Care Team Providers Care Drapery Worker Name Role Phone Unavailable Primary Care Provider Unavailabl e Encounters DateTypeDepartmentCare IbzgUhmrjsthstu91/29/2025Telephone [facility] Oncology [address], [address] [place] [address] Radha To MA 05/28/2025 - 05/28/2025 11:[address] [facility] Radiology External Films [address] [place] [address] Discharge Disposition: Home or Self Care ()05/28/2025Orders Only [facility] Oncology [address], [address] [place] [address] Radha To MA from Last 3 Months Social History Tobacco UseTypesPacks/DayYears UsedDateSmoking Tobacco: Never Assessed CommentsUnknownSex and Gender InformationValueDate RecordedSex Assigned at Not on fileLegal UixDcwqgq14/29/2025 2:14 PM EDTGender IdentityNot on fileSexual OrientationNot on file Plan of Treatment Health MaintenanceDue DateLast DoneCommentsCT Hudktuhndrrt33/15/1972Colonoscopy 1971Colorectal Cancer Ffdeyfokh77/15/1972Diabetes: Hemoglobin A1C 1971FIT-DNA1971FIT1971FOBT1971Medicare Annual Wellness (AWV)1971 4244Ylotkfkxseice42/15/1972Diabetes: Retinopathy Rpdemomnt15/15/1982 Depression Opylkdfdq52/15/1984Diabetes: Urine Protein Dyqngusgy95/15/1991 Hepatitis B Vaccines (1 of 3 - 19+ 3-dose series)11/11/1990Pap Smear11/11/1992 Adult Xnbelkv0511/11/1993Cervical Cancer Ozntbxhxu21/15/2002HPV/Hbbvca1411/11/2001 Zoster Vaccines (1 of 2)11/11/20212130Dehoslihs86/05/202505/3COVID-19 Vaccine (3 - season)/03/2021, 05/15/2021Influenza VaccineCompleted 06/06/2025, [...] Procedures Procedure NamePriorityDate/TimeAssociated DiagnosisCommentsXR TRANSFER OF OUTSIDE KTTZGVxhdyfe99/29/2025 12:00 AM EDT from Last 3 Months [...]
--- OUTSIDE RECORDS SUMMARY | 2025-07-02 09:30 | XMS_ITS | Encounter Summary ---
Author Organization [facility] Address [address] [place] [address] Care Team Providers Care Manager Oracle Database Name Role Phone Juan JoseEllie REFRIGERATOR TESTER Unavailable [phone] Rancho Hernandez MD Primary Care Provider [phone] Encounter Details DateTypeDepartmentCare Team (Latest Contact Info)Vyragjkidgm41/22/2025bstract [facility] [address] [place] [address] Rancho Hernandez MD [address] [place] [address] Social History Tobacco UseTypesPacks/DayYears UsedDateSmoking Tobacco: NeverPassive Smoke Exposure: NeverSmokeless Tobacco: NeverAlcohol UseStandard Drinks/WeekComments Yes1 (1 standard drink = 0.6 oz pure alcohol)PHQ-2AnswerDate RecordedPatient Health Questionnaire-2 Anjkm494CommentsUnknownSex and Gender InformationValueDate RecordedSex Assigned at BirthNot on fileLegal SexFemale 11/11/2022 11:06 PM EDTGender IdentityNot on fileSexual OrientationNot on file documented as of this encounter Plan of Treatment DateTypeDepartmentCare Team (Latest Contact Info)Yxrrebjmkzb80/03/2025 3:00 PM ESTOffice Visit [facility] [address] [address] Alexis Grace, DPM [address] [place] [address] 11/06/2025 10:00 AM EDTOffice Visit [facility] [address] [place] [address] Anamika Gunter, REFRIGERATOR TESTER [address] [place] [address] documented as of this encounter Visit Diagnoses Not on filedocumented in this encounter Care Teams Team MemberRelationshipSpecialtyStart DateEnd Rancho Hernandez MD [address] [place] [address] PCP - GeneralFamily Medicine03/16/25 Ellie Ingram NP [address] [place] [address] Referring Mxwqdcjnw29/19/24documented as of this encounter
--- OUTSIDE RECORDS SUMMARY | 2025-07-02 09:30 | XMS_ITS | Clinical Summary ---
Author Organization [facility] Address [address] [place] [address] Care Team Providers Care Advertising Space Clerk Name Role Phone Ellie Ingram NP Unavailable [phone] Rancho Hernandez MD Primary Care Provider [phone] Allergies No known active allergies Medications MedicationSigDispense QuantityRefillsLast FilledStart DateEnd DateStatus midodrine (Proamatine) 2.5 MG tablet Take 2.5 mg by mouth in the morning and 2.5 mg in the evening and 2.5 mg before bedtime.Active eyxaracfle-rzwdbjhquzuwx-swlukvfx 50-325-40 MG tablet Take 1 tablet by [...] then may increase to 100mg-2tabs 90 tablet 506Active tiZANidine (Zanaflex) 4 MG capsule Indications:Primary osteoarthritis involving multiple jointsTake 1 capsule (4 mg) by mouth in the morning and 1 capsule (4 mg) in the evening and 1 capsule (4 mg) before bedtime. 90 capsule 5Active ondansetron (Zofran) 8 MG tablet Indications:NauseaTake 1 tablet (8 mg) by mouth every 8 (eight) hours if needed for nausea or vomiting 20 tablet 5Active gemfibrozil (Lopid) 600 MG tablet Indications:Elevated LDL cholesterol levelTake 1 tablet (600 mg) by mouth in the morning and 1 tablet (600 mg) before bedtime. 180 tablet 6Active Rimegepant Sulfate (Nurtec) 75 MG tablet dispersible Indications:Intractable migraine with aura with status migrainosusTake 75 mg by mouth Daily as needed (Migraines) 16 tablet 110Expired Active Problems No known active problems Encounters DateTypeDepartmentCare QggyVuwpedsnuqk34/22/2025bstract [facility] [address] [facility] [address] [place] [address] Rancho Hernandez MD 06/18/2025bstract [facility] [address] [place] [address] Rancho Hernandez MD 06/14/2025bstract [facility] [address] [place] [address] Rancho Hernandez MD 06/04/2025bstract [facility] [address] [place] [address] Unallocated, Noms MD Lisy 06/04/2025bstract [facility] [address] [place] [address] Unallocated, Noms MD Lisy 05/31/2025 3:45 PM EDTClinical Support [facility] [address] [place] [address] Anamika Gunter, FABRICIO Intractable migraine with aura with status migrainosus; Nausea; Pain05/31/20258186Izinem69/01/2025Telephone [facility] [address] [place] [address] Anamika Gunter, FABRICIO 05/22/2025 10:00 AM EDTOffice Visit [facility] [address] [place] [address] Anamika Gunter NP Intractable migraine with aura with status migrainosus (Primary Dx); Elevated LDL cholesterol level05/22/2025bstract [facility] [address] [place] [address] Rancho Hernandez MD 05/22/20250075Lpgert82/16/2025Results Follow-Up [facility] [address] [place] [address] CBC, Comprehensive metabolic panel, Lipid panel, Additional followed-up results: bstract [facility] [address] [place] [address] Unallocated, Nomeva Wasserman MD 05/10/2025Telephone [facility] [address] [place] [address] Anamika Gunter, FABRICIO 05/08/2025 10:00 AM EDTOffice Visit [facility] [place] [place] [address] Anamika Gunter, WATER MAIN INSTALLER HELPER Primary insomnia (Primary Dx); Lipid screening; Primary hypertension ; Acquired hypothyroidism ; Other depression ; Stage 1 chronic kidney disease; Primary osteoarthritis involving multiple joints; Weight gain; Pain; Pain in other joint; Acute non-recurrent frontal sinusitis; Morbid (severe) obesity due to excess calories ([facility]); Obesity, class 3; Body mass index (BMI) 45.0-49.9, adult ([facility]); Major depressive disorder, single episode, in full giifdvkhm15/09/2025amboo flowsheet [facility] [place] [address] Anamika Gunter WATER MAIN INSTALLER HELPER 05/08/20259504Wfpqaj86/03/2025 3:00 PM EDTOffice Visit [facility] [address] [place] [address] Alexis Grace DPM Plantar wart (Primary Dx)05/02/2025amboo flowsheet [facility] [address] [place] [address] Alexis Grace DPM 05/02/20258995Tftpkp19/02/3153Krxhbg27/21/2025bstract [facility] [place] [address] Unallocated, Rae Wasserman MD 04/06/2025Results Follow-Up [facility] [address] [place] [address] Alexis Grace DPM ALT, AST04/04/2025Telephone [facility] [address] [place] [address] Alexis Grace DPM from Last 3 Months Immunizations ImmunizationAdministration DatesNext DueInfluenza, Mxqdqxpjpai44/16/2021 Family History RelationNameStatusCommentsFatherAliveMotherDeceased Social History Tobacco UseTypesPacks/DayYears UsedDateSmoking Tobacco: NeverPassive Smoke Exposure: NeverSmokeless Tobacco: Never Tobacco Cessation:Counseling Given: Yes Alcohol UseStandard Drinks/WeekCommentsYes1 (1 standard drink = 0.6 oz pure alcohol)PHQ-2AnswerDate RecordedPatient Health Questionnaire-2 Kujei180 CommentsUnknownSex and Gender InformationValueDate RecordedSex Assigned at BirthNot on fileLegal WzyDqtcuj18/15/2023 11:06 PM EDTGender IdentityNot on fileSexual OrientationNot on file Last Filed Vital Signs Vital SignReadingTime TakenCommentsBlood Fhqntttg532/8405/22/2025 9:55 AM EDT Wdydf577305/22/2025 9:55 AM EDTTemperature--Respiratory Rrlw450205/22/2025 9:55 AM EDTOxygen Bocvhajaqz41%05/22/2025 9:55 AM EDTInhaled Oxygen Concentration-- Viikct968 kg (246 lb)05/22/2025 9:55 AM SPELlgzei302.5 cm (5' 2 )05/22/2025 9:55 AM EDTBody Mass Index44.9905/22/2025 9:55 AM EDT Plan of Treatment DateTypeDepartmentCare Team (Latest Contact Info)Rwkfwkejyjg42/03/2025 3:00 PM ESTOffice Visit [facility] [address] [place] [phone] Alexis Grace, DPM [address] [place] [address] 11/06/2025 10:00 AM EDTOffice Visit [facility] [address] [facility] [address] [place] [address] Anamika Gunter, FABRICIO [address] [place] [address] Health MaintenanceDue DateLast DoneCommentsCT Ovbvgwtquzzm90/15/1972Colonoscopy 1971Colorectal Cancer Qdpmcuzfs81/15/1972FIT-DNA1971FIT1971 FOBT1971 5591Kvuqjuujcfjwd56/15/1972MMR Vaccines (1 of 1 - Standard series) 11/11/1972DTaP/Tdap/Td Vaccines (1 - Tdap)11/11/1978Hepatitis B Vaccines (1 of 3 - 19+ 3-dose series)11/11/1990HPV/Trajna4111/11/20019210Muuywjnpz61/05//12/2022 COVID-19 Vaccine ( - season), 05/15/2021ervical Cancer Lcipecexd20/28/2028Pap SmearInfluenza Vaccine Zkaxtvcpw07/08/2025, 05/15/2021HIB VaccinesAged OutNo longer eligible based on [...] patient's age to complete this topic Meningococcal VaccineAged OutNo longer eligible based on patient's age to complete this topicPneumococcal Vaccine: Pediatrics (0 to 5 Years) and At-Risk Patients (6 to 64 Years)Aged OutNo longer eligible based on patient's age to complete this topicRotavirus VaccinesAged OutNo longer eligible based on patient's age to complete this topic Procedures Procedure NamePriorityDate/TimeAssociated DiagnosisCommentsRHEUMATOID ARTHRITIS DIAGNOSTIC PANEL 6Xrjgqux28/10/2025 8:28 AM EDT Primary osteoarthritis involving multiple joints Pain Pain in other joint CORTISOL, XPEBWOlctmqp80/10/2025 8:28 AM EDT Weight gain Pain ESWUhuuoaq36/10/2025 8:28 AM EDT Acquired hypothyroidism LIPID CALTIFydgigp75/10/2025 8:28 AM EDT Lipid screening COMPREHENSIVE METABOLIC HEGWQLedftky80/10/2025 8:28 AM EDT Primary hypertension IIDPsvtfvt56/10/2025 8:28 AM EDT Primary hypertension POCT GLYCOSYLATED HEMOGLOBIN (HGB A1C)Ohqunxv2105/08/2025 10:44 AM EDT Stage 1 chronic kidney disease Weight gain LDAOihryba72/07/2025 3:08 PM EDT Onychomycosis ELGCkhchjj83/07/2025 3:08 PM EDT Onychomycosis from Last 3 [...] Performing Organization Information ?Site ID: AMD ?Name: [employer] ?Address: [address] [place] [address] [place], [place] ?Director: Vineet Ji M.D.,PhD Authorizing ProviderResult TypeResult StatusAnamika Gunter NPLAB BLOOD ORDERABLESFinal ResultPerforming OrganizationAddressty/[facility] HospitalPhone Number [facility] * (ABNORMAL) CBC (05/09/2025 8:28 AM EDT)ComponentValueRef RangeTest Method Analysis TimePerformed AtPathologist SignatureWHITE BLOOD CELL COUNT11.9(H)3.8 - 10.8 Thousand/uLQUESTRED BLOOD CELL COUNT4.813.80 - 5.10 Million/uLQUEST DQGWPVNRCB04.611.7 - 15.5 g/fAYYBVJGTGPCRSXDM53.935.0 - 45.0 %JXRPTCKY73.380.0 - 100.0 rDHZJXOKWY17.427.0 - 33.0 rfWTUZAHFSJ84.332.0 - 36.0 g/dLQUESTComment: For adults, a slight decrease in the calculated MCHC value (in the range of 30 to 32 g/dL) is most likely not clinically significant; however, it should be interpreted with caution in correlation with other red cell parameters and the patient's clinical condition. RDW13.611.0 - 15.0 %QUESTPLATELET VKYVT060(H)140 - 400 Thousand/uLQUESTMPV9.57.5 - 12.5 fLQUESTSpecimen (Source)Anatomical Location / LateralityCollection Method / VolumeCollection TimeReceived TimeBloodVenous blood specimen / Unknown 05/09/2025 8:28 AM EDT05/09/2025 3:28 PM EDT Narrative [facility] - 05/13/2025 2:23 AM EDT FASTING:NO FASTING: NO Resulting Agency Comment Performing Organization Information ?Site ID: QTW ?Name: [facility] ?Address: [address] [place] [phone] ?Director: Monique Cano Authorizing ProviderResult TypeResult StatusAnamika Gunter NPLAB BLOOD ORDERABLESFinal ResultPerforming OrganizationAddressBrecksville Va [facility]/State/ZIP CodePhone Number [facility] * TSH (05/09/2025 8:28 AM EDT)ComponentValueRef RangeTest MethodAnalysis Time Performed AtPathologist SignatureTSH0.64mIU/LQUESTComment: ?Reference Range ? > or = 20 Years 0.40-4.50 ? Ranges ?First trimester ?0.26-2.66 ?Second trimester ?? 0.55-2.73 ?Third trimester ?0.43-2.91 Specimen (Source)Anatomical Location / LateralityCollection Method / Volume Collection TimeReceived TimeBloodVenous blood specimen / Njgzkoy4705/09/2025 8:28 AM EDT05/09/2025 3:28 PM EDT Narrative [facility] - 05/13/2025 2:23 AM EDT FASTING:NO FASTING: NO Resulting Agency Comment Performing Organization Information ?Site ID: QPT ?Name: [facility] ?Address: [address] [place] [address], [address] [place] [phone] ?Director: Herb Andujar MD Authorizing ProviderResult TypeResult StatusAnamika Gunter NPLAB BLOOD ORDERABLESFinal ResultPerforming OrganizationAddressCity/State/ZIP CodePhone Number [facility] * (ABNORMAL) Cortisol (05/09/2025 8:28 AM EDT)ComponentValueRef RangeTest Method Analysis TimePerformed AtPathologist SignatureCORTISOL, TOTAL1.9(L)mcg/dLQUEST Comment: The Cortisol result may be decreased on average 10-20% relative to results previously obtained with this method due to a recent quality improvement made in March 2025 by the reagent semiautomatic taper operator. Reference Range: For 8 a.m.(7-9 a.m.) Specimen: 4.0-22.0 Reference Range: For 4 p.m.(3-5 p.m.) Specimen: 3.0-17.0 ??* Please interpret above results accordingly * Specimen (Source)Anatomical Location / LateralityCollection Method / Volume Collection TimeReceived TimeBloodVenous blood specimen / Zaxqqfr9705/09/2025 8:28 AM EDT05/09/2025 3:28 PM EDT Narrative [facility] - 05/13/2025 2:23 AM EDT FASTING:NO FASTING: NO Resulting Agency Comment Performing Organization Information ?Site ID: QPT ?Name: [facility] ?Address: [address] [place] [address], [address] [place] [phone] ?Director: Herb Andujar MD Authorizing ProviderResult TypeResult StatusAnamika Gunter NPLAB BLOOD ORDERABLESFinal ResultPerforming OrganizationAddressCity/State/ZIP CodePhone Number [facility] * (ABNORMAL) Lipid panel (05/09/2025 8:28 AM EDT)ComponentValueRef RangeTest MethodAnalysis TimePerformed AtPathologist SignatureCHOLESTEROL, HCANU857(H) <200 mg/dLQUESTHDL VMCWPACSHWK72> OR = 50 mg/eKVKXMTDLZHDVAYGNZKR058(H)<150 mg/dLQUESTLDL ECPHMFCJEHX047(H)mg/dL (calc)QUESTComment: Reference range: <100 Desirable range <100 mg/dL for primary prevention; <70 mg/dL for patients with CHD or diabetic patients with > or = 2 CHD risk factors. LDL-C is now calculated using the Wali-Harshad calculation, which is a validated novel method providing better accuracy than the Friedewald equation in the estimation of LDL-C. Wali SS et al. [place]. 2013;310(19): 2249-0841 (http://education.ePantry.Snapdeal/faq/RUH086) CHOL/HDLC RATIO3.7<5.0 (calc)QUESTNON HDL KQCMMGYAFLC106(H)<130 mg/dL (calc) QUESTComment: For patients with diabetes plus 1 major ASCVD risk factor, treating to a non-HDL-C goal of <100 mg/dL (LDL-C of <70 mg/dL) is considered a therapeutic option. Specimen (Source)Anatomical Location / LateralityCollection Method / Volume Collection TimeReceived TimeBloodVenous blood specimen / Ybpligm7905/09/2025 8:28 AM EDT05/09/2025 3:28 PM EDT Narrative [facility] - 05/13/2025 2:23 AM EDT FASTING:NO FASTING: NO Resulting Agency Comment Performing Organization Information ?Site ID: QPT ?Name: [facility] ?Address: [address] [place] [address], [address] [place] [phone] ?Director: Herb Andujar MD Authorizing ProviderResult TypeResult StatusAnamika Gunter NPLAB BLOOD ORDERABLESFinal ResultPerforming OrganizationAddressCity/State/ZIP CodePhone Number [facility] * Comprehensive metabolic panel (05/09/2025 8:28 AM EDT)ComponentValueRef Range Test MethodAnalysis TimePerformed AtPathologist DwhlojdhlQflrrqw80639 - 139 mg/dLQUESTComment: ? Non-fasting reference interval For someone without known diabetes, a glucose value between 100 and 125 mg/dL is consistent with prediabetes and should be confirmed with a follow-up test. DDZ668 - 25 mg/dLQUESTCreatinine0.760.50 - 1.03 mg/jRPYWGXSYAH03> OR = 60 mL/min/1.25y1HKOMBXOF/CREATININE RATIOSEE NOTE:6 - (calc)QUESTComment: ?? Not Reported: BUN and Creatinine are within ?? reference range. ? Tsazun440564 - 146 mmol/LQUESTPotassium, Bld4.43.5 - 5.3 mmol/QPWHVKYyczmsnh543 98 - 110 mmol/LQUESTCarbon Zzaybzh8468 - 32 mmol/RWXLOPJzawfhu01.08.6 - 10.4 mg/dLQUESTPROTEIN, TOTAL6.86.1 - 8.1 g/dLQUESTALBUMIN4.23.6 - 5.1 g/dLQUEST GLOBULIN2.61.9 - 3.7 g/dL (calc)QUESTALBUMIN/GLOBULIN RATIO1.61.0 - 2.5 (calc) QUESTBILIRUBIN, TOTAL0.40.2 - 1.2 mg/dLQUESTALKALINE SGFEUJJBZMD33244 - 153 U/L TPYKHQHI2973 - 35 U/XSXSOKYJD966 - 29 U/LQUESTSpecimen (Source)Anatomical Location / LateralityCollection Method / VolumeCollection TimeReceived TimeBlood Venous blood specimen / Wqdnhpi2805/09/2025 8:28 AM EDT05/09/2025 3:28 PM EDT Narrative [facility] - 05/13/2025 2:23 AM EDT FASTING:NO FASTING: NO Resulting Agency Comment Performing Organization Information ?Site ID: QTW ?Name: [facility] ?Address: [address] [place] [phone] ?Director: Monique Cano Authorizing ProviderResult TypeResult Dakotah Gunter NPLAB BLOOD ORDERABLESFinal ResultPerforming OrganizationAddressCity/State/ZIP CodePhone Number [facility] * POCT glycosylated hemoglobin (Hb A1C) docked device (05/08/2025 10:44 AM EDT) ComponentValueRef RangeTest MethodAnalysis TimePerformed AtPathologist SignatureHemoglobin A1C5.2Specimen (Source)Anatomical Location / Laterality Collection Method / VolumeCollection TimeReceived TimeBloodVenous blood specimen / Scooqph7505/08/2025 10:44 AM EDT Narrative Authorizing ProviderResult TypeResult Dakotah Gunter NPPOINT OF CARE TEST ENTER/EDIT ORDERABLESFinal Result * ALT (04/05/2025 3:08 PM EDT)ComponentValueRef RangeTest MethodAnalysis Time Performed AtPathologist XbjfknubtXUJ364 - 29 U/LQUESTSpecimen (Source) Anatomical Location / LateralityCollection Method / VolumeCollection Time Received TimeBloodVenous blood specimen / Fvbckll8604/05/2025 3:08 PM EDT 04/05/2025 3:08 PM EDT Narrative Resulting Agency Comment Performing Organization Information ?Site ID: QPT ?Name: [facility] ?Address: [address] [place] [address], [address] [place] [phone] ?Director: Herb Andujar MD Authorizing ProviderResult TypeResult StatusAlexis Grace DPMLAB BLOOD ORDERABLESFinal ResultPerforming OrganizationAddressCity/State/ZIP CodePhone Number [facility] * AST (04/05/2025 3:08 PM EDT)ComponentValueRef RangeTest MethodAnalysis Time Performed AtPathologist EdzrynxffXHC5331 - 35 U/LQUESTSpecimen (Source) Anatomical Location / LateralityCollection Method / VolumeCollection Time Received TimeBloodVenous blood specimen / Exgnmgq7304/05/2025 3:08 PM EDT 04/05/2025 3:08 PM EDT Narrative Resulting Agency Comment Performing Organization Information ?Site ID: QPT ?Name: [facility] ?Address: [address] [place] [address], [address] [place] [phone] ?Director: Herb Andujar MD Authorizing ProviderResult TypeResult StatusAnthdominguez Grace DPMLAB BLOOD ORDERABLESFinal ResultPerforming OrganizationAddressCity/State/ZIP CodePhone Number [facility] from Last 3 Months Insurance Care Teams Team MemberRelationshipSpecialtyStart Date Rancho Hernandez MD [address] [place] [id number] PCP - GeneralFamily Medicine03/16/25 Ellie Ingram NP [address] [place] [address] Referring Qkaybstlp93/19/24
--- OUTSIDE RECORDS SUMMARY | 2025-07-02 09:31 | XMS_ITS | Encounter Summary ---
Author Organization [facility] Address [address] [place] [address] Care Team Providers Care Public Health Epidemiologist Name Role Phone Juan JoseEllie heart STEAM BOX TENDER Unavailable [phone] Rancho Hernandez MD Primary Care Provider [phone] Encounter Details DateTypeDepartmentCare Team (Latest Contact Info)Srmwrakiril56/20/2025bstract [facility] [address] [place] [phone] Rancho Hernandez MD [address] [place] [address] Social History Tobacco UseTypesPacks/DayYears UsedDateSmoking Tobacco: NeverPassive Smoke Exposure: NeverSmokeless Tobacco: NeverAlcohol UseStandard Drinks/WeekComments Yes1 (1 standard drink = 0.6 oz pure alcohol)PHQ-2AnswerDate RecordedPatient Health Questionnaire-2 Frhus901CommentsUnknownSex and Gender InformationValueDate RecordedSex Assigned at BirthNot on fileLegal SexFemale 11/11/2022 11:06 PM EDTGender IdentityNot on fileSexual OrientationNot on file documented as of this encounter Plan of Treatment DateTypeDepartmentCare Team (Latest Contact Info)Hocgzooncta77/03/2025 3:00 PM ESTOffice Visit [facility] [address] [place] [phone] Alexis Grace, DPM [address] [place] [address] 11/06/2025 10:00 AM EDTOffice Visit [facility] [address] [place] [address] Anamika Gunter, STEAM BOX TENDER [address] [place] [address] documented as of this encounter Visit Diagnoses Not on filedocumented in this encounter Care Teams Team MemberRelationshipSpecialtyStart DateEnd Rancho Hernandez MD [address] [place] [address] PCP - GeneralFamily Medicine03/16/25 Ellie Ingram NP [address] [place] [address] Referring Dvktsrttr79/19/24documented as of this encounter
--- OUTSIDE RECORDS SUMMARY | 2025-07-02 09:31 | XMS_ITS | Encounter Summary ---
Author Organization [employer] [facility] tem Address [facility] [place] [address] Care Team Providers Care Marine Electrician Helper Name Role Phone Joselito Ingramdavid [employer] BUYER Primary Care Provide r Encounter Details DateTypeDepartmentCare Team (Latest Contact Info)Qnuxhxmpwez10/27/2025Travel Social History Tobacco UseTypesPacks/DayYears UsedDateSmoking Tobacco: NeverSmokeless Tobacco: NeverAlcohol UseStandard Drinks/WeekCommentsYes0 (1 standard drink = 0.6 oz pure alcohol)occasionalPHQ-2AnswerDate RecordedTotal Hvmlq469/28/2025AUDIT-CAnswer Date RecordedQ1: How often do you have a drink containing alcohol?Never 06/26/2025Q2: How many drinks containing alcohol do you have on a typical day when you are drinking?Patient does not drink06/26/2025Q3: How often do you have six or more drinks on one occasion?Never06/26/2025hildcareAnswerDate Recorded YvpsjvzjbLmpytiy86/23/2020EmploymentAnswerDate RecordedEmploymentUnknown 03/21/2020Hunger ScreeningAnswerDate RecordedWithin the past 12 months we worried whether our food would run out before we got money to buy more.Never True06/26/2025Within the past 12 months the food we bought just didn't last and we didn't have money to get more.Never True06/26/2025Purpose - LifeAnswerDate RecordedPurpose and direction in nbjrMfhqhid92/12/2021CommentsNoSex and Gender InformationValueDate RecordedSex Assigned at BirthNot on fileLegal Sex Imvcrc4803/21/2020 1:58 PM EDTGender IdentityNot on fileSexual OrientationNot on filedocumented as of this encounter Plan of Treatment DateTypeDepartmentCare Team (Latest Contact Info)Luqtbqqeipj86/06/2025 11:15 AM ESTProcedure visit [facility] [address] [place] [phone] Ellie Damon, SHEEP FARM WORKER-CLINICAL CYTOGENETICIST [address] [facility] , [address] [place] [address] 07/10/2025 3:00 PM ESTAppointment [facility] [address] [place] [phone] Naima Macedo, SHEEP FARM WORKER-CLINICAL CYTOGENETICIST [address] [place] [address] 07/10/2025 3:30 PM ESTAppointment [facility] - Ultrasound [address] [place] [phone] Naima Macedo, SHEEP FARM WORKER-CLINICAL CYTOGENETICIST [address] [place] [address] documented as of this encounter Visit Diagnoses Not on filedocumented in this encounter Additional Health Concerns AssessmentNoted TimePHQ-9 Depression Total Score: 10:25 AM EDTA Body Mass Index follow-up plan has been documented for the fwsyuqd7301/19/2024 3:37 PM EDTdocumented as of this encounter Care Teams Team MemberRelationshipSpecialtyStart DateEnd Date Ellie Ingram APRN-FNP [address] [place] [address] PCP - GeneralFamily Medicine09/22/24documented as of this encounter
[2025-07-02 09:59] VITALS: BP 95/61; PULSE 57; TEMP 36.6; O2SAT 100
[2025-07-02] MEDS: LIDOCAINE HCL 2% 400 MG/20 ML MDV 3 ML INJ (10:28)
[2025-07-02] MEDS: BUPIVACAINE HCL 0.25% PF 25 MG/10 ML VIAL INJ (10:28)
[2025-07-02] MEDS: 0.9 % SODIUM CHLORIDE 10 ML SYRINGE - SALINE FLUSH INJ (10:28)
[2025-07-02] MEDS: METHYLPREDNISOLONE ACETATE 80 MG/ML VIAL INJ (10:28)
[2025-07-02] MEDS: IOHEXOL 240 MG/ML - 10 ML VIAL 24 MG INJ (10:28)
--- NOTE | 2025-07-02 10:33 | W.PM.PROCNOT ---
Date of procedure: 07/02/25 Pre-op diagnosis: Pain due to lumbar stenosis with neurogenic claudication Post-op diagnosis: same as pre-op Procedure: Procedure: Bilateral L4-5 transforaminal epidural steroid injection Medications: Bupivacaine 0.25% 2cc, lidocaine 2% 1cc, depomedrol 80mg The patient was seen and examined in the preoperative holding area.? Informed consent was obtained and placed on the chart.? Patient was brought to the medical procedure unit and placed in the prone position where a timeout was completed verifying the correct patient, procedure site, position, and planned special equipment using sterile aseptic technique.? Under direct fluoroscopic visualization a 25-gauge Quincke tipped spinal needle was advanced at level left L4-5 to the designated neural foramen where contrast dye was injected to show adequate spread.? There was no evidence of vascular or adverse uptake.? Epidural spread was appreciated.? The above-mentioned injectate was then placed in a 1.5 mL aliquot preceded by negative aspiration.? The needle was removed. The same procedure, at the same level, was completed on the opposite side. ? Patient was taken to the postprocedural recovery area and monitored for an appropriate length of time before found suitable for discharge in the accompaniment of a responsible adult. Anesthesia: Local Surgeon: Nick Jimenez Pathology: none sent Condition: stable Disposition: no change
[2025-07-02 12:44] VITALS: BP 109/59; BP 113/64; PULSE 18; O2SAT 92; O2SAT 94
== END 2025-07-02 10:33 | disposition home or self-care (01) ==
PROVIDERS: PCP Nurse Practitioner Family; Visit Provider Anesthesiology
DX: M48.062 Spinal stenosis, lumbar region with neurogenic claudication (principal); M54.50 Low back pain, unspecified; E11.8 Type 2 diabetes mellitus with unspecified complications; Z79.85 Long-term (current) use of injectable non-insulin antidiabetic drugs; Z79.84 Long term (current) use of oral hypoglycemic drugs
CPT/HCPCS: 64483; J0665; J1010; Q9966

== ENCOUNTER 2025-07-12 09:47 | Outpatient (OUT) | payer MEDICARE, MEDICAID, SELFPAY ==
--- OUTSIDE RECORDS SUMMARY | 2025-07-10 14:46 | XMS_ITS | Encounter Summary ---
Author Organization [facility] tem Address [id number] [place] [address] Care Team Providers Care Oracle Manager Name Role Phone Anamika Gunter BELLING MACHINE OPERATOR-HOME ENERGY CONSULTANT SUPERVISOR Primary Care Provider Encounter Details DateTypeDepartmentCare Team (Latest Contact Info)Tvzskbhwtff39/11/2025 2:46 PM EST - 07/10/2025 11:59 PM ESTHospital Encounter [facility]ound [address] [place] [address] Naima Macedo, BELLING MACHINE OPERATOR-HOME ENERGY CONSULTANT SUPERVISOR [address] [place], [place] [id number] Mass of upper inner quadrant of right breast; Abnormality of right breast on screening mammogram Discharge Disposition: Home Social History Tobacco UseTypesPacks/DayYears UsedDateSmoking Tobacco: NeverSmokeless Tobacco: NeverAlcohol UseStandard Drinks/WeekCommentsYes0 (1 standard drink = 0.6 oz pure alcohol)occasionalPHQ-2AnswerDate RecordedTotal Ltnuw097/28/2025AUDIT-CAnswer Date RecordedQ1: How often do you have a drink containing alcohol?Never 06/26/2025Q2: How many drinks containing alcohol do you have on a typical day when you are drinking?Patient does not drink06/26/2025Q3: How often do you have six or more drinks on one occasion?Never06/26/2025hildcareAnswerDate Recorded NjamdigeqDgcwxoh74/23/2020EmploymentAnswerDate RecordedEmploymentUnknown 03/21/2020Hunger ScreeningAnswerDate RecordedWithin the past 12 months we worried whether our food would run out before we got money to buy more.Never True06/26/2025Within the past 12 months the food we bought just didn't last and we didn't have money to get more.Never True06/26/2025Purpose - LifeAnswerDate RecordedPurpose and direction in scrsCjvzcwp06/12/2021CommentsNoSex and Gender InformationValueDate RecordedSex Assigned at BirthNot on fileLegal Sex Weijre5303/21/2020 1:58 PM EDTGender IdentityNot on fileSexual OrientationNot [...] SUBCUTANEOUSLY (UNDER THE SKIN) ONCE A WEEK04/19/2025 topiramate (TOPAMAX) 25 mg tablet Take 1 tablet (25 mg total) by mouth in the morning.12/16/2023 topiramate (TOPAMAX) 50 mg tablet TAKE 1 TABLET BY MOUTH DAILY if medication is ineffective by 3 (THREE) days, TAKE 2 YTAWJXW9605/08/2025 traMADoL (ULTRAM) 50 mg tablet TAKE 1 TABLET BY MOUTH DAILY NEEDED FOR PAIN MUST LAST 30 DAYS06/20/2025 documented as of this encounter Plan of Treatment DateTypeDepartmentCare Team (Latest Contact Info)Drhttqtpixu06/17/2025 11:30 AM ESTProcedure visit [facility] [address] [address] Afsaneh Brown MD [address] [place], [place] [address] documented as of this encounter Procedures Procedure NamePriorityDate/TimeAssociated DiagnosisCommentsUS BREAST RT LIMITED Ilwkxdj9907/10/2025 2:59 PM EST Mass of upper inner quadrant of right breast Abnormality of right breast on screening mammogram documented in this encounter Results * (ABNORMAL) Ultrasound breast limited right (07/10/2025 2:59 PM EST)Anatomical RegionLateralityModalityBreastRightUltrasoundSpecimen (Source)Anatomical Location / LateralityCollection Method / VolumeCollection TimeReceived Time 07/10/2025 3:02 PM EST Narrative 07/10/2025 3:18 PM EST MARIANA VIDAL 1970 [id number] EXAM: US BREAST RT LIMITED, 07/10/2025 2:46 PM CLINICAL INDICATIONS:Mass of upper outer quadrant of right breast; Abnormality of right breast on screening mammogram. . COMPARISON: No prior studies available for comparison. TECHNIQUE: Multiple real-time dillard-scale images of the in the 10 o'clock axis were performed. ColorDoppler was utilized to assess vascular flow. FINDINGS: Corresponding to the new nodule on mammography there is an ovoid slightly heterogenous but primarily slightly hypoechoic nodule that displays an echogenic halo. This measures 8 x 5 x 7 mm. As seen onantiradial images. This does display some internal vascularity on color Doppler IMPRESSION: Nodule right breast at 10:00 with somewhat suspicious features BI-RADS: BI-RADS 4 - Suspicious Recommendation: Biopsy is recommended ??under ultrasound guidance I discussed this with the patient while she was in the department. She is agreeable to proceeding with biopsy and will be scheduled for same Finalized by Arsh Galvez MD on 07/10/2025 3:18 PM 4 BIOPSY Procedure Note Arsh Galvez MD - 07/10/2025 MARIANA VIDAL 1970 [id number] EXAM: US BREAST RT LIMITED, 07/10/2025 2:46 PM CLINICAL INDICATIONS:Mass of upper outer quadrant of right breast;Abnormality of right breast on screening mammogram. . COMPARISON: No prior studies available for comparison. TECHNIQUE: Multiple real-time dillard-scale images of the in the 10 o'clockaxis were performed. Color Doppler was utilized to assess vascular flow. FINDINGS: Corresponding to the new nodule on mammography there is an ovoid slightly heterogenous but primarily slightly hypoechoic nodule that displays anechogenic halo. This measures 8 x 5 x 7 mm. As seen on antiradial images.This does display some internal vascularity on color Doppler IMPRESSION: Nodule right breast at 10:00 with somewhat suspicious features BI-RADS: BI-RADS 4 - Suspicious Recommendation: Biopsy is recommended under ultrasound guidance I discussed this with the patient while she was in the department. She is agreeable to proceeding with biopsy and will be scheduled for same Finalized by Arsh Galvez MD on 07/10/2025 3:18 PM 4 BIOPSY Authorizing ProviderResult TypeResult Apolinar Macedo BELLING MACHINE OPERATOR-CNPIMG ORDERABLESFinal Result documented in this encounter Visit Diagnoses Diagnosis Mass of upper inner quadrant of right breast Abnormality of right breast on screening mammogram documented in this encounter Additional Health Concerns AssessmentNoted TimePHQ-9 Depression Total Score: 9:28 AM EDTA Body Mass Index follow-up plan has been documented for the wpixcte1101/19/2024 3:37 PM EDTdocumented as of this encounter Care Teams Team MemberRelationshipSpecialtyStart DateEnd Date Anamika Gunter, BELLING MACHINE OPERATOR-HOME ENERGY CONSULTANT SUPERVISOR [address] [place] [address] PCP - GeneralNurse Xydzzobgpmta34/11/25documented as of this encounter
--- OUTSIDE RECORDS SUMMARY | 2025-07-12 09:51 | XMS_ITS | Encounter Summary ---
Author Organization [facility] tem Address [id number] [address] [place] [address] Care Team Providers Care Fingernail Technician Name Role Phone Anamika Gunter RECYCLING DIRECTOR-COOK SAUCE Primary Care Provider Encounter Details DateTypeDepartmentCare Team (Latest Contact Info)Fhqlbcfwywv07/11/2025Results Follow-Up [facility] Obstetrics/Gynecology [address] [facility] [place] [address] Naima Macedo, RECYCLING DIRECTOR-[facility] [address] [place], [place] [id number] Ultrasound breast limited right Social History Tobacco UseTypesPacks/DayYears UsedDateSmoking Tobacco: NeverSmokeless Tobacco: NeverAlcohol UseStandard Drinks/WeekCommentsYes0 (1 standard drink = 0.6 oz pure alcohol)occasionalPHQ-2AnswerDate RecordedTotal Qstoa163/28/2025AUDIT-CAnswer Date RecordedQ1: How often do you have a drink containing alcohol?Never 06/26/2025Q2: How many drinks containing alcohol do you have on a typical day when you are drinking?Patient does not drink06/26/2025Q3: How often do you have six or more drinks on one occasion?Never06/26/2025hildcareAnswerDate Recorded SnydstbhyLaunmsh76/23/2020EmploymentAnswerDate RecordedEmploymentUnknown 03/21/2020Hunger ScreeningAnswerDate RecordedWithin the past 12 months we worried whether our food would run out before we got money to buy more.Never True06/26/2025Within the past 12 months the food we bought just didn't last and we didn't have money to get more.Never True06/26/2025Purpose - LifeAnswerDate RecordedPurpose and direction in vcqeZkdtbhp01/12/2021CommentsNoSex and Gender InformationValueDate RecordedSex Assigned at BirthNot on fileLegal Sex Wozltt1803/21/2020 1:58 PM EDTGender IdentityNot on fileSexual OrientationNot on filedocumented as of this encounter Plan of Treatment DateTypeDepartmentCare Team (Latest Contact Info)Zvxoaogsebm18/17/2025 11:30 AM ESTProcedure visit [facility] [address] [place] [address] Afsaneh Brown MD [address] [place] [address] documented as of this encounter Visit Diagnoses Not on filedocumented in this encounter Additional Health Concerns AssessmentNoted TimePHQ-9 Depression Total Score: 9:28 AM EDTA Body Mass Index follow-up plan has been documented for the dgbysub7301/19/2024 3:37 PM EDTdocumented as of this encounter Care Teams Team MemberRelationshipSpecialtyStart DateEnd Date Anamika Gunter, RECYCLING DIRECTOR-COOK SAUCE [address] [place] [address] PCP - GeneralNurse Jerribghkspm17/11/25documented as of this encounter
--- OUTSIDE RECORDS SUMMARY | 2025-07-12 09:51 | XMS_ITS | Clinical Summary ---
Author Organization Canines tem Address [id number] [address] [place] [address] Care Team Providers Care Brick Dropper Name Role Phone Anamika Gunter DONOR RECRUITMENT MANAGER-SURG TECH Primary Care Provider Allergies No known active [...] 0.25mg SUBCUTANEOUSLY (UNDER THE SKIN) ONCE A WEEK04/19/2025tive midodrine (PROAMATINE) 2.5 mg tablet TAKE 1 TABLET BY MOUTH THREE TIMES DAILY (IN THE MORNING, midday, and late afternoon)06/08/2025tive pregabalin (LYRICA) 75 mg capsule TAKE 1 CAPSULE BY MOUTH TWICE DAILY MUST LAST 30 DAYS06/20/2025tive traMADoL (ULTRAM) 50 mg tablet TAKE 1 TABLET BY MOUTH DAILY NEEDED FOR PAIN MUST LAST 30 DAYS06/20/2025 Active JARDIANCE 25 mg tablet tablet Take 1 tablet (25 mg total) by mouth.06/08/2025tive topiramate (TOPAMAX) 50 mg tablet TAKE 1 TABLET BY MOUTH DAILY if medication is ineffective by 3 (THREE) days, TAKE 2 CIEONPD3605/08/2025tive lisinopriL (PRINIVIL,ZESTRIL) 20 mg tablet Take 1 [...] (75 mg total) on tongue as needed.Expired terbinafine (LamISIL) 250 mg tablet Take 1 tablet (250 mg total) by mouth in the morning.Expired Active Problems ProblemNoted DateDiagnosed DateDegenerative lumbar disc12/10/2021MI 40.0-44.9, adult12/10/2021 Overview (12/10/2021): Discussed BMI at well woman visit Encounters DateTypeDepartmentCare UjyxSrbjtbrokpp03/11/2025 2:46 PM EST - 07/10/2025 11:59 PM ESTHospital Encounter [facility] - Ultrasound [address] [place] [phone] Naima Macedo, BROOKLYNN-ALYSON Mass of upper inner quadrant of right breast; Abnormality of right breast on screening mammogram Discharge Disposition: Home07/10/2025Results Follow-Up [facility] [place] [address] Naima Macedo, BROOKLYNN-ALYSON Ultrasound breast limited right07/10/2025[facility] [address] Naima Macedo, DONOR RECRUITMENT MANAGER-ALYSON Mass of upper outer quadrant of right breast (Primary Dx); Abnormal screening mammogram; Abnormal ultrasound of breast; Scattered fibroglandular tissue density of both breasts on xlxpsacwbhk48/11/2025 Bophbv3407/05/20259961Qodgoh29/30/2025Results Follow-Up [facility] [place] [address] [place] [id number] [phone] Naima Macedo APRN-CNP Thin Prep Pap Test, High risk HPV w/geno1Results Follow-Up [facility] [place] [address] [place] [address] Naima Macedo, BROOKLYNN-ALYSON Mammography screening bilateral with CAD, Estradiol, Estrone, S, Additional followed-up results: Orders Only [facility] [phone] Naima Macedo, DONOR RECRUITMENT MANAGER-ALYSON Mass of upper inner quadrant of right breast (Primary Dx); Abnormality of right breast on screening cykviyoeq07/28/2025 9:30 AM EDTOffice Visit [facility] [place] [address] [place] [address] Encounter for breast and pelvic examination (Primary Dx); Pap smear, as part of routine gynecological examination; Standardized adult depression screening tool pjixxpgnb73/27/2025 1:00 PM EDT - 06/25/2025 11:59 PM EDTHospital Encounter [facility] - Mammography/DEXA Imaging [address] [place] [address] Naima Macedo, DONOR RECRUITMENT MANAGER-SURG TECH Encounter for screening mammogram for malignant neoplasm of breast Discharge Disposition: Home06/25/2025 12:26 PM EDT - 06/25/2025 12:59 PM EDT Hospital Encounter [facility] - Ultrasound [address] [place] [address] Naima Macedo, DONOR RECRUITMENT MANAGER-SURG TECH Postmenopausal bleeding Discharge Disposition: Home06/25/20254912Hdwcbk65/16/5927Lqkclf93/08/2025 2:15 PM EDTOffice Visit [facility] [address] [place] [place] [address] Postmenopausal bleeding (Primary Dx); Flu vaccine need; Encounter for screening mammogram for malignant neoplasm of breast; Amenorrhea; Vasomotor symptoms due to menopause; Perimenopausal vasomotor fgawwyvz16/08/2025Travelfrom Last 3 Months Immunizations ImmunizationAdministration DatesNext DueInfluenza, Im Flucelvax (Pf)06/06/2025 Influenza, Injectable, quadrivalent (PF)05/15/2021 Family History Medical HistoryRelationNameCommentsHypertensionFatherDiabetesMaternal GrandfatherHeart failureMaternal GrandfatherDiabetesMaternal Grandmother Pancreatic cancerMaternal GrandmotherHypertensionMotherLung cancerMotherDiabetes Paternal GrandfatherDiabetesPaternal GrandmotherBreast cancerNeg HxRelationName StatusCommentsFatherAliveMaternal GrandfatherMaternal GrandmotherMotherDeceased Paternal GrandfatherPaternal Grandmother Social History Tobacco UseTypesPacks/DayYears UsedDateSmoking Tobacco: NeverSmokeless Tobacco: Never Tobacco Cessation:Counseling Given: Not Answered Alcohol UseStandard Drinks/WeekCommentsYes0 (1 standard drink = 0.6 oz pure alcohol)occasionalPHQ-2AnswerDate RecordedTotal Snuiq633UDIT-CAnswer Date RecordedQ1: How often do you have a drink containing alcohol?Never 06/26/2025Q2: How many drinks containing alcohol do you have on a typical day when you are drinking?Patient does not drink06/26/2025Q3: How often do you have six or more drinks on one occasion?Never06/26/2025hildcareAnswerDate Recorded KsourtshnGnebnrx17/23/2020EmploymentAnswerDate RecordedEmploymentUnknown 03/21/2020Hunger ScreeningAnswerDate RecordedWithin the past 12 months we worried whether our food would run out before we got money to buy more.Never True06/26/2025Within the past 12 months the food we bought just didn't last and we didn't have money to get more.Never True06/26/2025Purpose - LifeAnswerDate RecordedPurpose and direction in pjunPymgbfy39/12/2021CommentsNoSex and Gender InformationValueDate RecordedSex Assigned at BirthNot on fileLegal Sex Ybtgft3903/21/2020 1:58 PM EDTGender IdentityNot on fileSexual OrientationNot on file Last Filed Vital Signs Vital SignReadingTime TakenCommentsBlood Pjgzscqy54/7006/26/2025 9:18 AM EDT Tydsu002509/23/2024 2:06 AM QQHHkdnosajxzw08.4 ??C (97.5 ??F)09/22/2024 10:35 PM ESTRespiratory Smik587009/23/2024 1:05 AM ESTOxygen Vhpseekaqy660%09/23/2024 2:35 AM ESTInhaled Oxygen Concentration--Nzhiiw381.7 kg (239 lb 9.6 oz)06/26/2025 9:18 AM RLWTtmzxu108.5 cm (5' 2 )06/26/2025 9:18 AM EDTBody Mass Index43.82 06/26/2025 9:18 AM EDT Plan of Treatment DateTypeDepartmentCare Team (Latest Contact Info)Unzzhbgozpc70/17/2025 11:30 AM ESTProcedure visit [facility] [address] [address] Afsaneh Brown MD [address] [place] [address] Health MaintenanceDue DateLast DoneCommentsDTaP,Tdap and Td Vaccines (1 - Tdap) 11/11/1990Zoster (Shingles) Vaccine (1 of 2)11/11/2021dult BMI Follow Up Plan OVID-19 Vaccine (3 - 2024- season)/03/2021, 05/15/20216995Drwbjcxjl19, 01/01/2023, 01/01/2023dult BMI Xkyljvjzv42Depression Ttoahraaj07Tobacco Kigexopdx37Pap Smear, 06/26/2025, 11/26/2020, Additional history existsInfluenza PhxgrkhEtueitdrl49/08/2025, 05/15/2021 Medical Devices Not on file Procedures Procedure NamePriorityDate/TimeAssociated DiagnosisCommentsUS BREAST RT LIMITED Gpkgwfc7907/10/2025 2:59 PM EST Mass of upper inner quadrant of right breast Abnormality of right breast on screening mammogram THIN PREP PAP IMFMBvzbsjq41/28/2025 10:06 AM EDT Pap smear, as part of routine gynecological examination HIGH RISK HPV W/KLEHEmybefy46/28/2025 10:06 AM EDT Pap smear, as part of routine gynecological examination US PELVIC WITH WTHUXEYARAOJKbhjqhn76/27/2025 1:33 PM EDT Postmenopausal bleeding MAMM SCREENING BILATERAL W NKBUoszzay93/27/2025 1:18 PM EDT Encounter for screening mammogram for malignant neoplasm of breast TESTOSTERONE, FREE AND TOTAL, FEMALE OR OXXTJPEABjzeqbx27/27/2025 12:21 PM EDT Postmenopausal bleeding Amenorrhea Perimenopausal vasomotor symptoms UNLISTED LAB ECHJZszqxjr94/27/2025 12:21 PM EDT Postmenopausal bleeding QWJQEBJHArkozwq82/27/2025 12:21 PM EDT Postmenopausal bleeding Amenorrhea Perimenopausal vasomotor symptoms DHEA-KOYDOODFpnkftu52/27/2025 12:21 PM EDT Postmenopausal bleeding Amenorrhea Perimenopausal vasomotor symptoms VITAMIN D 25 PBYRGKADultrrx32/27/2025 12:21 PM EDT Postmenopausal bleeding Amenorrhea Perimenopausal vasomotor symptoms SEX HORMONE BINDING QVWHQXTQHncjabg42/27/2025 12:21 PM EDT Postmenopausal bleeding Amenorrhea Perimenopausal vasomotor symptoms LNALZWPBQZXNIhpgfvy12/27/2025 12:21 PM EDT Postmenopausal bleeding Amenorrhea Perimenopausal vasomotor symptoms ESTRONE, KYdhtlwf72/27/2025 12:21 PM EDT Postmenopausal bleeding Amenorrhea Perimenopausal vasomotor symptoms BMJBWELVNHxqgzcn25/27/2025 12:21 PM EDT Postmenopausal bleeding Amenorrhea Perimenopausal vasomotor symptoms from Last 3 Months Results * (ABNORMAL) Ultrasound breast limited right (07/10/2025 2:59 PM EST)Anatomical RegionLateralityModalityBreastRightUltrasoundSpecimen (Source)Anatomical Location / LateralityCollection Method / VolumeCollection TimeReceived Time 07/10/2025 3:02 PM EST Narrative 07/10/2025 3:18 PM EST JOSELITO VIDAL 1970 [id number] EXAM: US BREAST RT LIMITED, 07/10/2025 2:46 [...] Procedure Note Arsh Galvez MD - 07/10/2025 JOSELITO VIDAL 1970 [id number] EXAM: US BREAST RT LIMITED, 07/10/2025 2:46 [...] 3:18 PM 4 BIOPSY Authorizing ProviderResult TypeResult StatusNaima Macedo DONOR RECRUITMENT MANAGER-CNPIMG US ORDERABLESFinal Result * Thin Prep Pap Test (06/26/2025 10:06 AM EDT)ComponentValueRef RangeTest Method Analysis TimePerformed AtPathologist SignatureCase ReportGynecologic Cytology Report ? Case: [id number] ? Authorizing Provider: ??Naima Macedo APRN-SURG TECH ?? Collected: ? 06/26/2025 1006 ? Ordering Location: ? [facility] Received: ?06/26/2025 1006 ? - [place] ? First Screen: ?JEANNE Almanza(ASCP) ? Specimen: ?Thin Prep Pap, Cervix/Endocervix ? 06/27/2025 10:50 AM [facility]YSpecimen Adequacy Satisfactory for ekvzifsrci96/29/2025 10:50 AM [facility] LABORATORYInterpretationNEGATIVE FOR INTRAEPITHELIAL LESION OR MALIGNANCY 06/27/2025 10:50 AM [facility] at 1050 EDTAdditional InformationThe Pap test is a screening test with an inherent, but low, probability of error. The Pap test is primarily effective for the diagnosis and prevention of squamous cell carcinoma. Regular screening iscritical for prevention. ThinPrep liquid-based slides, which meet the Purchase Analyst criteria for automated screening, have been screened by the ThinPrep Imaging System (as of 05/16/07) along with an additional manual rescreening by a informal waiter/waitress and, if indicated, by a pathologist.06/27/2025 10:50 AM [facility] LABORATORYClinical Acdwdsthdrdkifd10/29/2025 10:50 AM [facility] LABORATORYEmbedded Tekzet1106/27/2025 10:50 AM [facility] LAB[facility]ATORYSpecimen (Source)Anatomical Location / LateralityCollection Method / VolumeCollection TimeReceived TimeThin Prep (Cervix/Endocervix)06/26/2025 10:06 AM EDT1 10:06 AM EDT Narrative Authorizing ProviderResult TypeResult StatusNaima Macedo DONOR RECRUITMENT MANAGER-SURG TECH PATHOLOGY/CYTOLOGY ORDERABLESFinal ResultPerforming OrganizationAddress City/State/ZIP CodePhone Number [facility] [address] [place] [address], * High risk HPV w/agustín (06/26/2025 10:06 AM EDT)ComponentValueRef RangeTest MethodAnalysis TimePerformed AtPathologist SignatureHPV 16NegativeNegative 06/27/2025 3:07 PM [facility] LABORATORYHPV 18Negative Cqetkzhu70/29/2025 3:07 PM [facility]ORATORYOTHER HIGH RISK DDLAzgormfmZgqlywut45/29/2025 3:07 PM [facility] LABORATORYComment:HPV types 31, 33, 35, 39, 45, 52, 56, 58, 59, 66, and 68 DNA were undetectable.Specimen (Source)Anatomical Location / LateralityCollection Method / VolumeCollection TimeReceived TimeThin Prep (Cervix/Endocervix) 06/26/2025 10:06 AM EDT1 5:17 AM EDT Narrative Authorizing ProviderResult TypeResult StatusNaima Macedo DONOR RECRUITMENT MANAGER-CNPLAB BLOOD ORDERABLESFinal ResultPerforming OrganizationAddressCity/State/ZIP CodePhone Number [facility] [address] [place] [address], [place] [phone] * Ultrasound pelvic with transvaginal (06/25/2025 1:33 [...] Authorizing ProviderResult TypeResult StatusLisa Jose L Macedo DONOR RECRUITMENT MANAGER-CNPIMG US ORDERABLESFinal Result * (ABNORMAL) Mammography screening bilateral with CAD (06/25/2025 1:18 PM EDT) Anatomical RegionLateralityModalityBreastBilateralMammographySpecimen (Source) Anatomical Location / LateralityCollection Method / VolumeCollection Time Received Time06/27/2025 12:38 PM EDT Narrative 06/27/2025 12:40 PM EDT JOSELITO VIDAL 1970 [id number] EXAM: MAMM SCREENING BILATERAL W CAD, 06/25/2025 [...] family medical history was used calculate their Tyrer-zi lifetime risk of malignancy. Scores less than 20% are not considered high risk per ACR guidelines and patient should continue with the above recommendation. Finalized by Alicia Lemus MD on 06/27/2025 12:40 PM 0A b ADDITIONAL I FDA Accredited Performing Facility: [facility] - Mammography/DEXA Imaging [address] [facility] [address] Procedure Note Alicia Lemus MD - 06/27/2025 JOSELITO PYLEGraeme VIDAL 1970 [id number] EXAM: MAMM SCREENING BILATERAL W CAD, 06/25/2025 [...] and family medical history was usedcalculate their Tyrer-zi lifetime risk of malignancy. Scores less than20% are not considered high risk per ACR guidelines and patient shouldcontinue with the above recommendation. Finalized by Alicia Lemus MD on 06/27/2025 12:40 PM 0A b ADDITIONAL I FDA Accredited Performing Facility: [facility] - Mammography/DEXA Imaging [address] [facility] [address] Authorizing ProviderResult TypeResult StatusNaima Macedo DONOR RECRUITMENT MANAGER-CNPIMG MAMMOGRAPHY ORDERABLESFinal Result * Estrone, S (06/25/2025 12:21 PM EDT)ComponentValueRef RangeTest MethodAnalysis TimePerformed AtPathologist SignatureESTRONE,S29pg/mL06/27/2025 8:36 AM EDT [facility] LABORATORIESComment: REFERENCE VALUE Premenopausal :17-200 Postmenopausal : 7-40 ADDITIONAL INFORMATION This test was developed and its performance characteristics determined by [facility] in a manner consistent with CLIA requirements. This test has not been cleared or approved by the U.S. Food and Drug Administration. Test Performed by: [facility] [place] [address] Depalletizer Operator: Belinda Morris Ph.D.; CLIA# [id number] Specimen (Source)Anatomical Location / LateralityCollection Method / Volume Collection TimeReceived TimeBloodVenous blood / UnknownVenipuncture / Unknown 06/25/2025 12:21 PM EDT1 12:24 PM EDT Narrative Authorizing ProviderResult TypeResult StatusNaima Macedo DONOR RECRUITMENT MANAGER-CNPLAB BLOOD ORDERABLESFinal ResultPerforming OrganizationAddressCity/State/ZIP CodePhone Number [facility] [address] [place] [address], * Unlisted Lab Test (06/25/2025 12:21 PM EDT)ComponentValueRef RangeTest Method Analysis TimePerformed AtPathologist SignatureLOOKSent to Reference Laboratory. 06/25/2025 6:46 PM [facility] LABORATORYSpecimen (Source) Anatomical Location / LateralityCollection Method / VolumeCollection Time Received TimeBloodVenous blood / UnknownVenipuncture / Uccymna4206/25/2025 12:21 PM EDT1 12:24 PM EDT Narrative Authorizing ProviderResult TypeResult StatusNaima Jose L Macedo DONOR RECRUITMENT MANAGER-CNPLAB BLOOD ORDERABLESFinal ResultPerforming OrganizationAddressCity/State/ZIP CodePhone Number [facility] [address] [place] [address], * Testosterone, Free and Total,with SHBG,Female, Children or Individuale on Testosterone-Suppressing Hormone Therapy (06/25/2025 12:21 PM EDT)Component ValueRef RangeTest MethodAnalysis TimePerformed AtPathologist Signature TESTOSTERONE BY MASS MQCL163 - 55 ng/dL06/30/2025 4:01 PM EDTAeYeka Comment: REFERENCE INTERVAL: Testosterone by Ladler Females Premenopausal ??9-55 ng/dL Postmenopausal 5-32 ng/dL INTERPRETIVE INFORMATION: Testosterone by Ladler Free or bioavailable testosterone measurements may provide supportive information. For individuals on testosterone-suppressing hormone therapies (e.g., antiandrogens or estrogens), refer to cisgender female reference intervals. For a complete set of all established reference intervals, refer to ltd.Loud[employer]/Tests/Pub/2110303. This test was developed and its performance characteristics determined by [facility]. It has not been cleared or approved by the [place] Food and Drug Administration. This test was performed in a CLIA certified laboratory and is intended for clinical purposes. TESTOSTERONE, FREE BY MASS SPEC2.60.6 - 3.8 pg/mL06/30/2025 4:01 PM EDTAeYekaComment: INTERPRETIVE INFORMATION: Testosterone, Free by Ladler Free testosterone concentration is calculated using total testosterone (measured by mass spectrometry) and the binding constant of testosterone and sex hormone-binding globulin (SHBG). For individuals on testosterone-suppressing hormone therapies (e.g., antiandrogens or estrogens), refer to cisgender female reference intervals. For a complete set of all established reference intervals, refer to ltd.Loud[employer]/Tests/Pub/0025404. This test was developed and its performance characteristics determined by [facility]. It has not been cleared or approved by the US Food and Drug Administration. This test was performed in a CLIA certified laboratory and is intended for clinical purposes. Performed By: [facility] [address] [place] [address] Agriculture Science Teacher: Yobani Arreola MD, PhD CLIA Number: [id number] SEX HORMONE BINDING ZPSSMFOX9558 - 125 nmol/L108/30/2024 4:01 PM EDTARUP LABORATORIESComment: REFERENCE INTERVAL: Sex Hormone Binding Globulin Access complete set of age- and/or gender-specific reference intervals for this test in the [employer] Test Directory ([employer]). Specimen (Source)Anatomical Location / LateralityCollection Method / Volume Collection TimeReceived TimeBloodVenous blood / UnknownVenipuncture / Unknown 06/25/2025 12:21 PM EDT1 12:24 PM EDT Narrative Authorizing ProviderResult TypeResult StatusNaima Macedo DONOR RECRUITMENT MANAGER-CNPLAB BLOOD ORDERABLESFinal ResultPerforming OrganizationAddressCity/State/ZIP CodePhone Number [address] * Sex hormone binding globulin (06/25/2025 12:21 PM EDT)ComponentValueRef Range Test MethodAnalysis TimePerformed AtPathologist SignatureSEX HORMONE BINDING PMEXRWMZ22.016.8 - 125.2 nmol/L1 7:22 PM EDMARTINS FERRY HOSPITAL LABORATORYComment: PT TYPE ? AGE ?RANGE MALES ?20-50Y ?13.3-89.5 mmol/L FEMALES ?20-46Y ?18.2-135.5 mmol/L FEMALES POSTMENO ? 47-91Y ?16.8-125.2 mmol/L Specimen (Source)Anatomical Location / LateralityCollection Method / Volume Collection TimeReceived TimeBloodVenous blood / UnknownVenipuncture / Unknown 06/25/2025 12:21 PM EDT1 12:24 PM EDT Narrative Authorizing ProviderResult TypeResult StatusNaima Macedo DONOR RECRUITMENT MANAGER-CNPLAB BLOOD ORDERABLESFinal ResultPerforming OrganizationAddressCity/State/ZIP CodePhone Number [facility] [address] [place] [phone], * Vitamin D 25 hydroxy (06/25/2025 12:21 PM EDT)ComponentValueRef RangeTest MethodAnalysis TimePerformed AtPathologist SignatureVITAMIN D 25 HYD TOT34.6 30.0 - 100.0 ng/mL06/25/2025 7:33 PM EDMARTINS FERRY HOSPITAL LABORATORY Specimen (Source)Anatomical Location / LateralityCollection Method / Volume Collection TimeReceived TimeBloodVenous blood / UnknownVenipuncture / Unknown 06/25/2025 12:21 PM EDT1 12:24 PM EDT Narrative [facility] - 06/25/2025 7:33 PM EDT Vitamin D status 25 [place] Vitamin D Deficiency <20 ng/mL Insufficiency ? 20-29 ng/mL Sufficiency ? 30-100 ng/mL Toxicity >100 ng/mL NOTE: A pediatric reference range has not been established by the senior staff psychologist of this kit. The [place] [employer] recommends a Vitamin D level of = or >20ng/mL in infants and children. Authorizing ProviderResult TypeResult StatusNaima Jose L Remington DONOR RECRUITMENT MANAGER-CNPLAB BLOOD ORDERABLESFinal ResultPerforming OrganizationAddressCity/State/ZIP CodePhone Number [facility] [address] [place] [address], * Progesterone (06/25/2025 12:21 PM EDT)ComponentValueRef RangeTest Method Analysis TimePerformed AtPathologist SignaturePROGESTERONE0.9ng/mL06/25/2025 7:23 PM TTMADISON HEALTH LABORATORYComment: FEMALES: 1st Tri: ??4.7-50.7 ng/ml 2nd Tri: ??19.4-45.3 ng/ml ? MENSTRUATING FEMALES: Follicular: ??0.3-1.5 ng/ml Mid Luteal: ??5.2-18.6 ng/ml Post Chelle: <0.1-0.8 ng/ml Specimen (Source)Anatomical Location / LateralityCollection Method / Volume Collection TimeReceived TimeBloodVenous blood / UnknownVenipuncture / Unknown 06/25/2025 12:21 PM EDT1 12:24 PM EDT Narrative Authorizing ProviderResult TypeResult DoloresNaima Jose L eRmington DONOR RECRUITMENT MANAGER-CNPLAB BLOOD ORDERABLESFinal ResultPerforming OrganizationAddressty/State/ZIP CodePhone Number [facility] [address] [place] [address], * DHEA-sulfate (06/25/2025 12:21 PM EDT)ComponentValueRef RangeTest Method Analysis TimePerformed AtPathologist SignatureDHEA S438 - 188 ug/dL06/25/2025 7:22 PM EDTTMADISON HEALTH LABORATORYSpecimen (Source)Anatomical Location / LateralityCollection Method / VolumeCollection TimeReceived Time BloodVenous blood / UnknownVenipuncture / Druafvh2806/25/2025 12:21 PM EDT 06/25/2025 12:24 PM EDT Narrative Authorizing ProviderResult TypeResult Apolinar Bedollaamytom DONOR RECRUITMENT MANAGER-CNPLAB BLOOD ORDERABLESFinal ResultPerforming OrganizationAddressCity/State/ZIP CodePhone Number [facility] [address] [place] [address], * Estradiol (06/25/2025 12:21 PM EDT)ComponentValueRef RangeTest MethodAnalysis TimePerformed AtPathologist KyngelahpFWMHXVOPE16.7pg/mL06/25/2025 7:48 PM EDT [facility]YSpecimen (Source)Anatomical Location / LateralityCollection Method / VolumeCollection TimeReceived TimeBloodVenous blood / UnknownVenipuncture / Imfkrlu4606/25/2025 12:21 PM EDT1 12:24 PM EDT Narrative [facility] - 06/25/2025 7:48 PM EDT [...] when using this assay. Authorizing ProviderResult TypeResult DoloresNaima M Krotzer DONOR RECRUITMENT MANAGER-CNPLAB BLOOD ORDERABLESFinal ResultPerforming OrganizationAddressty/State/ZIP CodePhone Number [facility] [address] [place] [address], * Cortisol (06/25/2025 12:21 PM EDT)ComponentValueRef RangeTest MethodAnalysis TimePerformed AtPathologist SignatureCORTISOL, TOTAL11.7ug/dL06/25/2025 7:16 PM [facility]YSpecimen (Source)Anatomical Location / LateralityCollection Method / VolumeCollection TimeReceived TimeBloodVenous blood / UnknownVenipuncture / Kvjxwzp9606/25/2025 12:21 PM EDT1 12:24 PM EDT Narrative [facility] - 06/25/2025 7:16 PM EDT Due to the diurnal variation of cortisol levels in normal subjects, all cortisol measurments should be referenced to the time of day of sample collection. AM Cortisol Age>=6 6.7-22.4 ug/dL PM Cortisol Age>=6 <10 ug/dL Authorizing ProviderResult TypeResult StatusLi Jose L Bedollaferny DONOR RECRUITMENT MANAGER-CNPLAB BLOOD ORDERABLESFinal ResultPerforming OrganizationAddressty/State/ZIP CodePhone Number [facility] [address] [place] [address], from Last 3 Months Insurance Care Teams Team MemberRelationshipSpecialtyStart DateEnd Date Anamika Gunter, DONOR RECRUITMENT MANAGER-SURG TECH [address] [address] PCP - GeneralNurse Glwbbjthzwho56/11/25
--- OUTSIDE RECORDS SUMMARY | 2025-07-12 09:51 | XMS_ITS | Encounter Summary ---
Author Organization [facility] tem Address [id number] [address] [place] [address] Care Team Providers Care Retail Cosmetics Sales Counter Manager Name Role Phone Anamika Gunter TEACHER ADVENTURE EDUCATION-DRIVER'S LICENSE EXAMINER Primary Care Provider Encounter Details DateTypeDepartmentCare Team (Latest Contact Info)Weipzuupiwc11/11/2025Travel Social History Tobacco UseTypesPacks/DayYears UsedDateSmoking Tobacco: NeverSmokeless Tobacco: NeverAlcohol UseStandard Drinks/WeekCommentsYes0 (1 standard drink = 0.6 oz pure alcohol)occasionalPHQ-2AnswerDate RecordedTotal Feyma530/28/2025AUDIT-CAnswer Date RecordedQ1: How often do you have a drink containing alcohol?Never 06/26/2025Q2: How many drinks containing alcohol do you have on a typical day when you are drinking?Patient does not drink06/26/2025Q3: How often do you have six or more drinks on one occasion?Never06/26/2025hildcareAnswerDate Recorded OursjvlqjUiwaani55/23/2020EmploymentAnswerDate RecordedEmploymentUnknown 03/21/2020Hunger ScreeningAnswerDate RecordedWithin the past 12 months we worried whether our food would run out before we got money to buy more.Never True06/26/2025Within the past 12 months the food we bought just didn't last and we didn't have money to get more.Never True06/26/2025Purpose - LifeAnswerDate RecordedPurpose and direction in imeqBhtofwn80/12/2021CommentsNoSex and Gender InformationValueDate RecordedSex Assigned at BirthNot on fileLegal Sex Dqaojf0903/21/2020 1:58 PM EDTGender IdentityNot on fileSexual OrientationNot on filedocumented as of this encounter Plan of Treatment DateTypeDepartmentCare Team (Latest Contact Info)Celozgdbava22/17/2025 11:30 AM ESTProcedure visit [facility] [address] [place] [address] Afsaneh Brown MD [address] [place], [place] [id number] documented as of this encounter Visit Diagnoses Not on filedocumented in this encounter Additional Health Concerns AssessmentNoted TimePHQ-9 Depression Total Score: 9:28 AM EDTA Body Mass Index follow-up plan has been documented for the qqvxnsb5701/19/2024 3:37 PM EDTdocumented as of this encounter Care Teams Team MemberRelationshipSpecialtyStart DateEnd Date Anamika Gunter, TEACHER ADVENTURE EDUCATION-DRIVER'S LICENSE EXAMINER [address] [facility] [address] [place] [address] PCP - GeneralNurse Cuxqvszfmwus73/11/25documented as of this encounter
--- OUTSIDE RECORDS SUMMARY | 2025-07-12 09:51 | XMS_ITS | Clinical Summary ---
Author Organization [facility] Address [address], [address] [place] [address] Care Team Providers Care Bioinformatics Support Specialist Name Role Phone Ellie Ingram APRN - [...] tablet by mouth 3 times daily as endici0110/20/2023ctive TRULICITY 3 MG/0.5ML SOPN INJECT 3 (THREE) [...] (BMI) of 40.0 to 44.9 in adult06/30/2022Lumbar zijzefhzcov96/01/2022pinal stenosis of lumbar region without neurogenic wgranjnwnuys96/01/2022 Social History Tobacco UseTypesPacks/DayYears UsedDateSmoking Tobacco: NeverPassive Smoke Exposure: NeverSmokeless Tobacco: Never Tobacco Cessation:Counseling Given: No CommentsUnknownSex and Gender InformationValueDate RecordedSex Assigned at BirthNot on fileLegal QwgRwaiiw24/10/2013 9:54 PM ESTGender IdentityNot on fileSexual OrientationNot on file Last Filed Vital Signs Vital SignReadingTime TakenCommentsBlood Mocmivzr129/7409 10:49 AM EDT Usxut9993 10:15 AM EHGHgupoenonvb29.1 ??C (97 ??F)05/22/2024 10:49 AM EDTRespiratory Rate--Oxygen Fqzeigbgnt031%03/21/2024 10:15 AM EDTInhaled Oxygen Concentration--Yjwqpk775.9 kg (260 lb)05/22/2024 10:49 AM JFMVhauee585.5 cm (5' 2 )05/22/2024 10:49 AM EDTBody Mass Index47.55005/22/2024 10:49 AM EDT Plan of Treatment Health MaintenanceDue DateLast DoneCommentsDepression Lfjkmw8611/12/1983HIV screen 11/11/1986Hepatitis C jflmzo8911/11/1989DTaP/Tdap/Td vaccine (1 - Tdap)11/11/1990 Hepatitis B vaccine (1 of 3 - 19+ 3-dose series)11/11/1990Pap smear11/11/1992 Cervical cancer fjglmc2911/11/2001HPV (without or with Pap)11/11/2001Lipids 11/12/20113808Rhkmlipapwe32/15/2017Colorectal Cancer Jwurdk6611/11/2016FIT/FOBT: Average risk11/11/2016Fecal-DNA (Cologuard): Average risk11/11/2016 Sigmoidoscopy/CT xdleltdfxnmt94/15/2017Pneumococcal 50+ years Vaccine (1 of 1 - PCV)11/11/2021hingles vaccine (1 of 2)11/11/2021reast cancer nwvpdp5201/01/2025 01/01/2023Flu vaccine (#1)509/OVID-19 Vaccine ( season)/03/2021, 09/16/2021Hepatitis [...] Ellie Ingram APRN - NP [address] [place] [address] [facility]03/26/22
--- OUTSIDE RECORDS SUMMARY | 2025-07-12 09:51 | XMS_ITS | Clinical Summary ---
Author Organization [facility] Address [address] [place] [address] Care Team Providers Care Jukebox Route Driver Name Role Phone Unavailable Primary Care Provider Unavailabl e Encounters DateTypeDepartmentCare TomaHlkbtnaunii25/29/2025Telephone [facility] Oncology [address] [place] [address] [address], [address] [place] [address] Radha To MA 05/28/2025 - 05/28/2025 11:59 PM EDTHospital Encounter [facility] Rad[facility] External Films [address] [place] [address] Discharge Disposition: Home or Self Care ()05/28/2025Orders Only [facility] Oncology [address] [place] [address] [address], [address] [place] [address] Radha To MA from Last 3 Months Social History Tobacco UseTypesPacks/DayYears UsedDateSmoking Tobacco: Never Assessed CommentsUnknownSex and Gender InformationValueDate RecordedSex Assigned at Not on fileLegal LppYaimzk54/29/2025 2:14 PM EDTGender IdentityNot on fileSexual OrientationNot on file Plan of Treatment Health MaintenanceDue DateLast DoneCommentsCT Khxjnilddczd20/15/1972Colonoscopy 1971Colorectal Cancer Wyuuyetlv80/15/1972Diabetes: Hemoglobin A1C 1971FIT-DNA1971FIT1971FOBT1971Medicare Annual Wellness (AWV)1971 5015Yhknuwwguacvb30/15/1972Diabetes: Retinopathy Ductfrxpo83/15/1982 Depression Jkuvidonw99/15/1984Diabetes: Urine Protein Voeyjkwjd94/15/1991 Hepatitis B Vaccines (1 of 3 - 19+ 3-dose series)11/11/1990Pap Smear11/11/1992 Adult Wggymgx4011/11/1993Cervical Cancer Qqbieujez02/15/2002HPV/Cbcmaz5311/11/2001 Zoster Vaccines (1 of 2)11/11/20219616Bzrvxxsja96/05/202505/OVID-19 Vaccine (3 - season)/03/2021, 05/15/2021Influenza VaccineCompleted 06/06/2025, [...] Procedures Procedure NamePriorityDate/TimeAssociated DiagnosisCommentsXR TRANSFER OF OUTSIDE JIXCLCywhhxy82/29/2025 12:00 AM EDT from Last 3 Months [...]
--- OUTSIDE RECORDS SUMMARY | 2025-07-12 09:51 | XMS_ITS | Encounter Summary ---
Author Organization [facility] s tem Address [id number] [address] [place] [address] Care Team Providers Care Financial Aid Counselor Name Role Phone Anamika Gunter CARPENTER HELPER MAINTENANCE-REAL ESTATE LEASING AGENT Primary Care Provider Encounter Details DateTypeDepartmentCare Team (Latest Contact Info)Mhkhzlwmraz26/30/2025Results Follow-Up [facility] Women's Services - [place] [address] [place] [place] [phone] Naima Macedo, CARPENTER HELPER MAINTENANCE-REAL ESTATE LEASING AGENT [address] [place] [address] Mammography screening bilateral with CAD, Estradiol, Estrone, S, Additional followed-up results: 6 Social History Tobacco UseTypesPacks/DayYears UsedDateSmoking Tobacco: NeverSmokeless Tobacco: NeverAlcohol UseStandard Drinks/WeekCommentsYes0 (1 standard drink = 0.6 oz pure alcohol)occasionalPHQ-2AnswerDate RecordedTotal Bvnko779/28/2025AUDIT-CAnswer Date RecordedQ1: How often do you have a drink containing alcohol?Never 06/26/2025Q2: How many drinks containing alcohol do you have on a typical day when you are drinking?Patient does not drink06/26/2025Q3: How often do you have six or more drinks on one occasion?Never06/26/2025hildcareAnswerDate Recorded JjxaoyaztPyheyxf73/23/2020EmploymentAnswerDate RecordedEmploymentUnknown 03/21/2020Hunger ScreeningAnswerDate RecordedWithin the past 12 months we worried whether our food would run out before we got money to buy more.Never True06/26/2025Within the past 12 months the food we bought just didn't last and we didn't have money to get more.Never True06/26/2025Purpose - LifeAnswerDate RecordedPurpose and direction in dqlyKuogiwz38/12/2021CommentsNoSex and Gender InformationValueDate RecordedSex Assigned at BirthNot on fileLegal Sex Wcqzgm5503/21/2020 1:58 PM EDTGender IdentityNot on fileSexual OrientationNot on filedocumented as of this encounter Plan of Treatment DateTypeDepartmentCare Team (Latest Contact Info)Ijxmpqjpmpj64/17/2025 11:30 AM ESTProcedure visit [facility] [address] [place] [phone] Afsaneh Brown MD [address] [facility] [place]JulietteHAV[place], [place] [id number] documented as of this encounter Visit Diagnoses Not on filedocumented in this encounter Additional Health Concerns AssessmentNoted TimePHQ-9 Depression Total Score: 9:28 AM EDTA Body Mass Index follow-up plan has been documented for the aoxmbua5701/19/2024 3:37 PM EDTdocumented as of this encounter Care Teams Team MemberRelationshipSpecialtyStart DateEnd Date Anamika Gunter, CARPENTER HELPER MAINTENANCE-REAL ESTATE LEASING AGENT [address] [place] [address] PCP - GeneralNurse Rcdkngirekuc52/11/25documented as of this encounter
--- OUTSIDE RECORDS SUMMARY | 2025-07-12 09:51 | XMS_ITS | Encounter Summary ---
Author [facility] [employer] [facility] Address [facility] [address] [place] [address] Care Team Providers Care Chief Administrative Officer Name Role Phone Anamika Gunter CARBON BRUSH MAKER-PROTECTIVE CLOTHING ISSUER Primary Care Provider Reason for Referral * Consultation (Routine) - Pending ReviewSpecialtyDiagnoses / ProceduresReferred By ContactReferred To ContactBreast Surgery Diagnoses Mass of upper outer quadrant of right breast Abnormal screening mammogram Abnormal ultrasound of breast Scattered fibroglandular tissue density of both breasts on mammography Naima Macedo APRN-PROTECTIVE CLOTHING ISSUER [address] [place] [address] Phone: tel: fax: [facility] [address] [place] [phone] Phone: tel: fax: Referral IDStatusReasonStart DateExpiration DateVisits RequestedVisits [id number] Encounter Details DateTypeDepartmentCare Team (Latest Contact Info)Xrlmbxlltsp57/11/2025Orders Only [facility] [address] [facility] [place] [phone] Naima Macedo APRN-PROTECTIVE CLOTHING ISSUER [address] [place], [place] [phone] Mass of upper outer quadrant of right breast (Primary Dx); Abnormal screening mammogram; Abnormal ultrasound of breast; Scattered fibroglandular tissue density of both breasts on mammography Social History Tobacco UseTypesPacks/DayYears UsedDateSmoking Tobacco: NeverSmokeless Tobacco: NeverAlcohol UseStandard Drinks/WeekCommentsYes0 (1 standard drink = 0.6 oz pure alcohol)occasionalPHQ-2AnswerDate RecordedTotal Zkbrj113/28/2025AUDIT-CAnswer Date RecordedQ1: How often do you have a drink containing alcohol?Never 06/26/2025Q2: How many drinks containing alcohol do you have on a typical day when you are drinking?Patient does not drink06/26/2025Q3: How often do you have six or more drinks on one occasion?Never06/26/2025hildcareAnswerDate Recorded CvlbypuiySywpwax40/23/2020EmploymentAnswerDate RecordedEmploymentUnknown 03/21/2020Hunger ScreeningAnswerDate RecordedWithin the past 12 months we worried whether our food would run out before we got money to buy more.Never True06/26/2025Within the past 12 months the food we bought just didn't last and we didn't have money to get more.Never True06/26/2025Purpose - LifeAnswerDate RecordedPurpose and direction in erhqWtkmofe19/12/2021CommentsNoSex and Gender InformationValueDate RecordedSex Assigned at BirthNot on fileLegal Sex Mxwjtz8803/21/2020 1:58 PM EDTGender IdentityNot on fileSexual OrientationNot on filedocumented as of this encounter Progress Notes * AMARILIS Figueroa - 07/10/2025 3:36 PM EST Call to patient to discuss breast u/s results. Patient given the option of biopsy being done at [facility] or [facility]. Referral placed and biopsy ordered. AMARILIS Figueroa 07/10/25 2910 documented in this encounter Plan of Treatment DateTypeDepartmentCare Team (Latest Contact Info)Czpkohlezai15/17/2025 11:30 AM ESTProcedure visit [facility] [address] [facility] [address] [facility] [place] [phone] Afsaneh Brown MD [address] [facility] [address] [facility] [place]Jul[place]teS[place], [place] [address] NameTypePriorityAssociated DiagnosesOrder ScheduleUltrasound biopsy breast initial rightImagingRoutine Mass of upper outer quadrant of right breast Abnormal screening mammogram Abnormal ultrasound of breast Scattered fibroglandular tissue density of both breasts on mammography Expected: 07/10/2025, Expires: 07/10/2026NameTypePriorityAssociated Diagnoses Order Schedule[facility] Breast [facility] - [facility] - [place], SCOutpatient ReferralRoutine Mass of upper outer quadrant of right breast Abnormal screening mammogram Abnormal ultrasound of breast Scattered fibroglandular tissue density of both breasts on mammography 1 Occurrences starting 07/10/2025 until 07/10/2026documented as of this encounter Visit Diagnoses Diagnosis Mass of upper outer quadrant of right breast- Primary Abnormal screening mammogram Abnormal ultrasound of breast Scattered fibroglandular tissue density of both breasts on mammography documented in this encounter Additional Health Concerns AssessmentNoted TimePHQ-9 Depression Total Score: 9:28 AM EDTA Body Mass Index follow-up plan has been documented for the ysllnsr1701/19/2024 3:37 PM EDTdocumented as of this encounter Care Teams Team MemberRelationshipSpecialtyStart DateEnd Date Anamika Gunter APRN-CNP [address] [facility] [address] [place] [address] PCP - GeneralNurse Ntpwvgecqexi53/11/25documented as of this encounter
--- OUTSIDE RECORDS SUMMARY | 2025-07-12 09:51 | XMS_ITS | Encounter Summary ---
Author Organization [facility] Address [address] [place] [address] Care Team Providers Care Casing Blower Name Role Phone Ellie Ingram GAS PIPE LAYER Unavailable [phone] Rancho Hernandez MD Primary Care Provider [phone] Encounter Details DateTypeDepartmentCare Team (Latest Contact Info)Ntdppmdnerx41/12/2025Orders Only [facility] [address] [place] [address] Anamika Gunter GAS PIPE LAYER [address] [place] [address] Skin infection (Primary Dx) Social History Tobacco UseTypesPacks/DayYears UsedDateSmoking Tobacco: NeverPassive Smoke Exposure: NeverSmokeless Tobacco: NeverAlcohol UseStandard Drinks/WeekComments Yes1 (1 standard drink = 0.6 oz pure alcohol)PHQ-2AnswerDate RecordedPatient Health Questionnaire-2 Aqmuq902CommentsUnknownSex and Gender InformationValueDate RecordedSex Assigned at BirthNot on fileLegal SexFemale 11/11/2022 11:06 PM EDTGender IdentityNot on fileSexual OrientationNot on file documented as of this encounter Plan of Treatment DateTypeDepartmentCare Team (Latest Contact Info)Pcxzfecsirq94/03/2025 3:00 PM ESTOffice Visit [facility] [address] [place] [address] Alexis Grace, DPM [address] [place] [address] 11/06/2025 10:00 AM EDTOffice Visit [facility] [address] [facility] [address] [place] [phone] Anamika Gunter, GAS PIPE LAYER [address] [facility] [address] [place], [place] [address] documented as of this encounter Visit Diagnoses Diagnosis Skin infection- Primary Unspecified local infection of skin and subcutaneous tissue documented in this encounter Care Teams Team MemberRelationshipSpecialtyStart DateEnd Rancho Hernandez MD [address] [place] [address] PCP - GeneralFamily Medicine03/16/25 Ellie Ingram NP [address] [place] [address] Referring Qizedrcoi31/19/24documented as of this encounter
--- OUTSIDE RECORDS SUMMARY | 2025-07-12 09:51 | XMS_ITS | Encounter Summary ---
Author Organization [facility] Address [facility] [address] [place] [address] Care Team Providers Care Senior Payroll Specialist Name Role Phone Ellie Ingram APRN-CLINICAL SCIENTIST Primary Care Provide r Encounter Details DateTypeDepartmentCare Team (Latest Contact Info)Hmlyybjbpix36/30/2025Orders Only [facility] [address] [facility] [place] [address] Naima Macedo, WATCH CRYSTAL CUTTER-INSULATION NOZZLEMAN [address] [place], [place] [address] Mass of upper inner quadrant of right breast (Primary Dx); Abnormality of right breast on screening mammogram Social History Tobacco UseTypesPacks/DayYears UsedDateSmoking Tobacco: NeverSmokeless Tobacco: NeverAlcohol UseStandard Drinks/WeekCommentsYes0 (1 standard drink = 0.6 oz pure alcohol)occasionalPHQ-2AnswerDate RecordedTotal Tvrrd222/28/2025AUDIT-CAnswer Date RecordedQ1: How often do you have a drink containing alcohol?Never 06/26/2025Q2: How many drinks containing alcohol do you have on a typical day when you are drinking?Patient does not drink06/26/2025Q3: How often do you have six or more drinks on one occasion?Never5ChildcareAnswerDate Recorded JosdukuxsDtmujnc74/23/2020EmploymentAnswerDate RecordedEmploymentUnknown 03/21/2020Hunger ScreeningAnswerDate RecordedWithin the past 12 months we worried whether our food would run out before we got money to buy more.Never True06/26/2025Within the past 12 months the food we bought just didn't last and we didn't have money to get more.Never True06/26/2025Purpose - LifeAnswerDate RecordedPurpose and direction in ecuyUvevbrs99/12/2021CommentsNoSex and Gender InformationValueDate RecordedSex Assigned at BirthNot on fileLegal Sex Dnolpc1603/21/2020 1:58 PM EDTGender IdentityNot on fileSexual OrientationNot on filedocumented as of this encounter Plan of Treatment DateTypeDepartmentCare Team (Latest Contact Info)Dmtwgwjrack13/17/2025 11:30 AM ESTProcedure visit [facility] [address] [place] [address] Afsaneh Brown MD [address] [place] [address] NameTypePriorityAssociated DiagnosesOrder ScheduleMammography diagnostic unilateral right with CADImagingRoutine Mass of upper inner quadrant of right breast Abnormality of right breast on screening mammogram Expected: 06/28/2025, Expires: 06/28/2026documented as of this encounter Results * (ABNORMAL) Ultrasound breast limited right (07/10/2025 2:59 PM EST)Anatomical RegionLateralityModalityBreastRightUltrasoundSpecimen (Source)Anatomical Location / LateralityCollection Method / VolumeCollection TimeReceived Time 07/10/2025 3:02 PM EST Narrative 07/10/2025 3:18 PM EST MARIANA VIDAL 1970 [id number] EXAM: US BREAST RT LIMITED, 07/10/2025 2:46 [...] Galvez MD - 07/10/2025 MARIANA VIDAL 1970 [id number] EXAM: US BREAST RT LIMITED, 07/10/2025 2:46 [...] 4 BIOPSY Authorizing ProviderResult TypeResult Apolinar Macedo WATCH CRYSTAL CUTTER-CNPIMG US ORDERABLESFinal Result documented in this encounter Visit Diagnoses Diagnosis Mass of upper inner quadrant of right breast- Primary Abnormality of right breast on screening mammogram Mass of upper inner quadrant of right breast Abnormality of right breast on screening mammogram documented in this encounter Additional Health Concerns AssessmentNoted TimePHQ-9 Depression Total Score: 9:28 AM EDTA Body Mass Index follow-up plan has been documented for the uqjqrek4801/19/2024 3:37 PM EDTdocumented as of this encounter Care Teams Team MemberRelationshipSpecialtyStart DateEnd Date Ellie Ingram APRN-SOBEIDA [address] [facility] [place] [address] PCP - GeneralFamily Medicine09/22/2510documented as of this encounter
--- OUTSIDE RECORDS SUMMARY | 2025-07-12 09:51 | XMS_ITS | Encounter Summary ---
Author Organization [facility] Address [address] [place] [address] Care Team Providers Care Linecasting Machine Keyboard Operator Name Role Phone Juan JoseEllie PATIENT RELATIONS SPECIALIST Unavailable [phone] Rancho Hernandez MD Primary Care Provider [phone] Encounter Details DateTypeDepartmentCare Team (Latest Contact Info)Ksbchqhmuun00/04/2025bstract [facility] [address] [place] [phone] Rancho Hernandez MD [address] [place] [address] Social History Tobacco UseTypesPacks/DayYears UsedDateSmoking Tobacco: NeverPassive Smoke Exposure: NeverSmokeless Tobacco: NeverAlcohol UseStandard Drinks/WeekComments Yes1 (1 standard drink = 0.6 oz pure alcohol)PHQ-2AnswerDate RecordedPatient Health Questionnaire-2 Rgzst705CommentsUnknownSex and Gender InformationValueDate RecordedSex Assigned at BirthNot on fileLegal SexFemale 11/11/2022 11:06 PM EDTGender IdentityNot on fileSexual OrientationNot on file documented as of this encounter Plan of Treatment DateTypeDepartmentCare Team (Latest Contact Info)Haptsyylbej13/03/2025 3:00 PM ESTOffice Visit [facility] [address] [place] [address] Alexis Grace, DPM [address] [facility] [place] [address] 11/06/2025 10:00 AM EDTOffice Visit [facility] [address] [place] [address] Anamika Gunter, PATIENT RELATIONS SPECIALIST [address] [place] [address] documented as of this encounter Visit Diagnoses Not on filedocumented in this encounter Care Teams Team MemberRelationshipSpecialtyStart DateEnd Rancho Hernandez MD [address] [place] [address] PCP - GeneralFamily Medicine03/16/25 Ellie Ingram NP [address] [place] [address] Referring Loulmrxpe10/19/24documented as of this encounter
--- OUTSIDE RECORDS SUMMARY | 2025-07-12 09:51 | XMS_ITS | Encounter Summary ---
Author Organization [employer] [facility] tem Address [id number] [address] [place] [address] Care Team Providers Care Special Agent In Charge Name Role Phone Joselito Ingramdavid OVERTON-INDEPENDENT JEWELER Primary Care Provide r Encounter Details DateTypeDepartmentCare Team (Latest Contact Info)Thtyefmvkdf62/06/2025Travel Social History Tobacco UseTypesPacks/DayYears UsedDateSmoking Tobacco: NeverSmokeless Tobacco: NeverAlcohol UseStandard Drinks/WeekCommentsYes0 (1 standard drink = 0.6 oz pure alcohol)occasionalPHQ-2AnswerDate RecordedTotal Bkouj623/28/2025AUDIT-CAnswer Date RecordedQ1: How often do you have a drink containing alcohol?Never 06/26/2025Q2: How many drinks containing alcohol do you have on a typical day when you are drinking?Patient does not drink06/26/2025Q3: How often do you have six or more drinks on one occasion?Never06/26/2025hildcareAnswerDate Recorded LrhrgpceoVstegmr78/23/2020EmploymentAnswerDate RecordedEmploymentUnknown 03/21/2020Hunger ScreeningAnswerDate RecordedWithin the past 12 months we worried whether our food would run out before we got money to buy more.Never True06/26/2025Within the past 12 months the food we bought just didn't last and we didn't have money to get more.Never True06/26/2025Purpose - LifeAnswerDate RecordedPurpose and direction in wdyeOpmtkyv52/12/2021CommentsNoSex and Gender InformationValueDate RecordedSex Assigned at BirthNot on fileLegal Sex Ciexqm5703/21/2020 1:58 PM EDTGender IdentityNot on fileSexual OrientationNot on filedocumented as of this encounter Plan of Treatment DateTypeDepartmentCare Team (Latest Contact Info)Kfkdgqcvxzu37/17/2025 11:30 AM ESTProcedure visit [facility] [address] [place] [address] Afsaneh Brown MD [address] [place], [place] [id number] documented as of this encounter Visit Diagnoses Not on filedocumented in this encounter Additional Health Concerns AssessmentNoted TimePHQ-9 Depression Total Score: 9:28 AM EDTA Body Mass Index follow-up plan has been documented for the uwfelkx3201/19/2024 3:37 PM EDTdocumented as of this encounter Care Teams Team MemberRelationshipSpecialtyStart DateEnd Date Ellie Ingram APRN-[place] [address] PCP - GeneralFamily Medicine09/22documented as of this encounter
--- OUTSIDE RECORDS SUMMARY | 2025-07-12 09:51 | XMS_ITS | Clinical Summary ---
Author Organization [facility] Address [address] [place] [address] Phone Care Team Providers Care Enrichment Assistant Name Role Phone Ellie Ingram GREENS PLANTER-BIODIESEL PROCESS CONTROL TECHNICIAN Primary Care Provider Dileep Ceja MD Unavailable [phone] Allergies No known active allergies Medications MedicationSigDispense [...] ProblemNoted DateDiagnosed DateLumbosacral spondylosis without myelopathy 02/01/2024Lumbar labddmihkgz14/01/2022pinal stenosis of lumbar region without neurogenic cneqwvyfcvvj09/01/2022egenerative lumbar disc12/10/2021 Encounters DateTypeDepartmentCare NqaiZbtmzzzazae08/02/2025 1:15 PM EDTOffice Visit [facility] [address] [phone] Dileep Ceja MD Postural dizziness with near syncope Discharge Disposition: Home05/31/2025Travelfrom Last 3 Months Social History Tobacco UseTypesPacks/DayYears UsedDateSmoking Tobacco: NeverSmokeless Tobacco: Never Tobacco Cessation:Counseling Given: Not Answered Alcohol UseStandard Drinks/WeekCommentsNever0 (1 standard drink = 0.6 oz pure alcohol)CommentsUnknownSex and Gender InformationValueDate RecordedSex Assigned at BirthNot on fileLegal RmzKkemvr72/19/2024 5:04 PM ESTGender Identity Not on fileSexual OrientationNot on file Last Filed Vital Signs Vital SignReadingTime TakenCommentsBlood Qthiaspp948/7610 1:27 PM EDT Brbbp7908 1:27 PM EDTTemperature--Respiratory Rate--Oxygen Hjbweabrzh92% 11/16/2024 11:01 AM EDTInhaled Oxygen Concentration--Zpsqxi296 kg (242 lb 12.8 oz)05/31/2025 1:27 PM IPSTgmsyv355.5 cm (5' 2 )05/31/2025 1:27 PM EDTBody Mass Index44.411 1:27 PM EDT Plan of Treatment DateTypeDepartmentCare Team (Latest Contact Info)Qngvdxmwnni15/02/2026 1:30 PM EDTOffice Visit [facility] [address] [place] [phone] [place] [address], [facility] [address] [place] [address] Health MaintenanceDue DateLast DoneCommentsCT Wrbhyawjdyvt42/15/1972Colonoscopy 1971Colorectal Cancer Ayknysfov39/15/1972FIT-DNA (Cologuard)1971FIT 1971HIV Dkrxddsze05/15/2016Afukgxkqyxohd01/15/1972Welcome to Medicare Visit1971MMR Vaccines (1 of 1 - Standard series)11/11/1972Diabetes Rrobwlnji21/15/1990Hepatitis C Kdbmrpxae44/15/1990CKD: Urine Protein Screening 11/11/1990Hepatitis B Vaccines (1 of 3 - 19+ 3-dose series)11/11/1990 Pneumococcal Vaccine (1 of 2 - PCV)11/11/1990Cervical Cancer Sxqqlwvlo96/15/1993 HPV/Dnassd4611/11/1992Pap Smear11/11/1992DTaP/Tdap/Td Vaccines (1 - Tdap) 11/11/1993Zoster Vaccines (1 of 2)11/11/20213795Rmtpieqxu43/05/202405/12/2022, 01/01/2023, 01/01/2023Influenza Vaccine (#1)509/OVID-19 Vaccine ( season)2025TSH [...] Teams Team MemberRelationshipSpecialtyStart DateEnd Date Ellie Ingram, GREENS PLANTER-BIODIESEL PROCESS CONTROL TECHNICIAN [address] [place] [phone] PCP - GeneralFamily Bdlchrxk83/19/24 Dileep Ceja MD [address] [address] Consulting PhysicianCardiology11/09/24
--- OUTSIDE RECORDS SUMMARY | 2025-07-12 09:51 | XMS_ITS | Encounter Summary ---
Author Organization [facility] [email or web address] tem Address [facility] [place] [id number] [address] [place] [address] Care Team Providers Care Mortgage Collector Name Role Phone Anamika Gunter SUPERVISOR BACKFILLING-TECHNICAL DATA ANALYST Primary Care Provider Encounter Details DateTypeDepartmentCare Team (Latest Contact Info)Xcfypftdqkg43/30/2025Results Follow-Up [facility] [place] [address] [phone] Naima Macedo, SUPERVISOR BACKFILLING-TECHNICAL DATA ANALYST [address] [place] [address] Thin Prep Pap Test, High risk HPV w/agustín Social History Tobacco UseTypesPacks/DayYears UsedDateSmoking Tobacco: NeverSmokeless Tobacco: NeverAlcohol UseStandard Drinks/WeekCommentsYes0 (1 standard drink = 0.6 oz pure alcohol)occasionalPHQ-2AnswerDate RecordedTotal Wmdbq072/28/2025AUDIT-CAnswer Date RecordedQ1: How often do you have a drink containing alcohol?Never 06/26/2025Q2: How many drinks containing alcohol do you have on a typical day when you are drinking?Patient does not drink06/26/2025Q3: How often do you have six or more drinks on one occasion?Never5ChildcareAnswerDate Recorded ZqwnednsbKbvuikn20/23/2020EmploymentAnswerDate RecordedEmploymentUnknown 03/21/2020Hunger ScreeningAnswerDate RecordedWithin the past 12 months we worried whether our food would run out before we got money to buy more.Never True06/26/2025Within the past 12 months the food we bought just didn't last and we didn't have money to get more.Never True06/26/2025Purpose - LifeAnswerDate RecordedPurpose and direction in tnkoBgpsxst83/12/2021CommentsNoSex and Gender InformationValueDate RecordedSex Assigned at BirthNot on fileLegal Sex Osodlj3803/21/2020 1:58 PM EDTGender IdentityNot on fileSexual OrientationNot on filedocumented as of this encounter Plan of Treatment DateTypeDepartmentCare Team (Latest Contact Info)Uogejlwmyms63/17/2025 11:30 AM ESTProcedure visit [facility] [address] [place] [phone] Afsaneh Brown MD [address] [place], [place] [phone] documented as of this encounter Visit Diagnoses Not on filedocumented in this encounter Additional Health Concerns AssessmentNoted TimePHQ-9 Depression Total Score: 9:28 AM EDTA Body Mass Index follow-up plan has been documented for the dltkyzu5501/19/2024 3:37 PM EDTdocumented as of this encounter Care Teams Team MemberRelationshipSpecialtyStart DateEnd Date Anamika Gunter, SUPERVISOR BACKFILLING-TECHNICAL DATA ANALYST [address] [place] [address] PCP - GeneralNurse Mlgedrppbzba85/11/25documented as of this encounter
--- OUTSIDE RECORDS SUMMARY | 2025-07-12 09:51 | XMS_ITS | Clinical Summary ---
Author Organization [facility] Address [address] [place] [address] Care Team Providers Care Manager Desktop Name Role Phone Ellie Ingram NP Unavailable [phone] Rancho Hernandez MD Primary Care Provider [phone] Allergies No known active allergies Medications MedicationSigDispense QuantityRefillsLast FilledStart DateEnd DateStatus midodrine (Proamatine) 2.5 MG tablet Take 2.5 mg by mouth in the morning and 2.5 mg in the evening and 2.5 mg before bedtime.Active qhzryjosgc-farqsmfsixxih-utepynnf 50-325-40 MG tablet Take 1 tablet by [...] (Florinef) 0.1 MG tablet Take by mouthActive Ozempic, 0.25 or 0.5 MG/DOSE, 2 MG/3ML [...] then may increase to 100mg-2tabs 90 tablet 6Active tiZANidine (Zanaflex) 4 MG capsule Indications:Primary osteoarthritis [...] (600 mg) before bedtime. 180 tablet 6Active cephalexin (Keflex) 500 MG capsule Indications:Skin infectionTake 1 capsule (500 mg) by mouth in the morning and 1 capsule (500 mg) before bedtime. Do all this for 10 days. 20 capsule 5Active mupirocin (Bactroban) 2 % cream Indications:Skin infectionApply topically in the morning and in the evening and before bedtime. Do all this for 10 days. 15 g 5Active terbinafine (LamISIL) 250 MG tablet Indications:OnychomycosisTake 1 tablet (250 mg) by mouth Daily 90 tablet Expired Rimegepant Sulfate (Nurtec) 75 MG tablet dispersible Indications:Intractable migraine with aura with status migrainosusTake 75 mg by mouth Daily as needed (Migraines) 16 tablet 110Expired Active Problems No known active problems Encounters DateTypeDepartmentCare PoxkMwnwdfzuwcs22/12/2025Orders Only [facility] [address] [facility] [address] [place] [address] Anamika Gunter NP Skin infection (Primary Dx)07/03/2025bstract [facility] [address] [place] [address] Rancho Hernandez MD 06/20/2025bstract [facility] [address] [place] [address] Rancho Hernandez MD 06/18/2025bstract [facility] [address] [place] [address] Rancho Hernandez MD 06/14/2025bstract [facility] [address] [place] [address] Rancho Hernandez MD 06/04/2025bstract [facility] [id number] [place] [phone] Unallocated, Noms MD Lisy 06/04/2025bstract [facility] [address] [place] [address] Unallocated, Noms MD Lisy 05/31/2025 3:45 PM EDTClinical Support [facility] [address] [place] [address] Anamika Gunter NP Intractable migraine with aura with status migrainosus; Nausea; Pain05/31/20258169Havbux07/01/2025Telephone [facility] [address] [place] [address] Anamika Gunter NP 05/22/2025 10:00 AM EDTOffice Visit [facility] [address] [place] [address] Anamika Gunter NP Intractable migraine with aura with status migrainosus (Primary Dx); Elevated LDL cholesterol level05/22/2025bstract [facility] [address] [facility] [address] [place] [address] Rancho Hernandez MD 05/22/20255458Mcmbwq31/16/2025Results Follow-Up [facility] [address] [facility] [address] [place] [address] CBC, Comprehensive metabolic panel, Lipid panel, Additional followed-up results: bstract [facility] [address] [facility] [address] [place] [address] Unallocated, Rae Wasserman MD 05/10/2025Telephone [facility] [address] [facility] [address] [place] [address] Anamika Gunter NP 05/08/2025 10:00 AM EDTOffice Visit [facility] [address] [facility] [address] [place] [address] Anamika Gunter NP Primary insomnia (Primary Dx); Lipid screening; Primary hypertension ; Acquired hypothyroidism ; Other depression ; Stage 1 chronic kidney disease; Primary osteoarthritis involving multiple joints; Weight gain; Pain; Pain in other joint; Acute non-recurrent frontal sinusitis; Morbid (severe) obesity due to excess calories ([facility]); Obesity, class 3; Body mass index (BMI) 45.0-49.9, adult ([facility]); Major depressive disorder, single episode, in full zsqknjazm76/09/2025amboo flowsheet [facility] [address] [facility] [address] [place] [address] Anamika Gunter NP 05/08/20252041Jhozrq96/03/2025 3:00 PM EDTOffice Visit [facility] [address] [place] [address] Alexis Grace DPM Plantar wart (Primary Dx)05/02/2025amboo flowsheet [facility] [address] [place] [address] Alexis Grace DPM 05/02/20252321Vbivfi24/02/8789Oxoozp60/21/2025bstract [facility] [address] [facility] [address] [place] [address] Unallocated, [facility] Wasserman MD from Last 3 Months Immunizations ImmunizationAdministration DatesNext DueInfluenza, Bwhtousnnfs30/16/2021 Family History RelationNameStatusCommentsFatherAliveMotherDeceased Social History Tobacco UseTypesPacks/DayYears UsedDateSmoking Tobacco: NeverPassive Smoke Exposure: NeverSmokeless Tobacco: Never Tobacco Cessation:Counseling Given: Yes Alcohol UseStandard Drinks/WeekCommentsYes1 (1 standard drink = 0.6 oz pure alcohol)PHQ-2AnswerDate RecordedPatient Health Questionnaire-2 Cvyzn159 CommentsUnknownSex and Gender InformationValueDate RecordedSex Assigned at BirthNot on fileLegal VqfTznzfg50/15/2023 11:06 PM EDTGender IdentityNot on fileSexual OrientationNot on file Last Filed Vital Signs Vital SignReadingTime TakenCommentsBlood Ekstcpgj172/8409 9:55 AM EDT Dajzq197105/22/2025 9:55 AM EDTTemperature--Respiratory Rkna973005/22/2025 9:55 AM EDTOxygen Ebvshbfbzs53%05/22/2025 9:55 AM EDTInhaled Oxygen Concentration-- Wcjyxv181 kg (246 lb)05/22/2025 9:55 AM ISUTjoirv701.5 cm (5' 2 )05/22/2025 9:55 AM EDTBody Mass Index44.9905/22/2025 9:55 AM EDT Plan of Treatment DateTypeDepartmentCare Team (Latest Contact Info)Pcmoozumgwi23/03/2025 3:00 PM ESTOffice Visit [facility] [address] [place] [address] Alexis Grace DPM [address] [place] [id number] 11/06/2025 10:00 AM EDTOffice Visit [facility] [place] [facility] [address] [facility] [address] [place] [address] Anamika Gunter, ART SALES CONSULTANT [address] [facility] [address] [place] [address] Health MaintenanceDue DateLast DoneCommentsCT Vpqujtlkdypj58/15/1972Colonoscopy 1971Colorectal Cancer Rovzkuupx49/15/1972FIT-DNA1971FIT1971 FOBT1971 5953Fqxcsgytlnjqw01/15/1972COVID-19 Vaccine ( season) , 05/15/20213441Emnkdehgs49/27/447091, 3Pap Smear, 06/26/2025ervical Cancer Hhhmymqqq64/28/2030 HPV/Ztoweg80Influenza XiqyoagOxdtkdtqs90/08/2025, 05/15/2021 Pneumococcal Vaccine: Pediatrics (0 to 5 Years) and At-Risk Patients (6 to 64 Years)Aged OutNo longer eligible based on patient's age to complete this topic Procedures Procedure NamePriorityDate/TimeAssociated DiagnosisCommentsRHEUMATOID ARTHRITIS DIAGNOSTIC PANEL 2Ghqwmlx13/10/2025 8:28 AM EDT Primary osteoarthritis involving multiple joints Pain Pain in other joint CORTISOL, OJPMIDxmeksc42/10/2025 8:28 AM EDT Weight gain Pain TEVWaykpre42/10/2025 8:28 AM EDT Acquired hypothyroidism LIPID SEHKOVqzfvjc36/10/2025 8:28 AM EDT Lipid screening COMPREHENSIVE METABOLIC DQFFLJpaiuok21/10/2025 8:28 AM EDT Primary hypertension JKNOjbydal52/10/2025 8:28 AM EDT Primary hypertension POCT GLYCOSYLATED HEMOGLOBIN (HGB A1C)Vhvuppi1805/08/2025 10:44 AM EDT Stage 1 chronic kidney disease Weight gain from Last 3 Months Results * (ABNORMAL) [...] Performing Organization Information ?Site ID: AMD ?Name: [employer]/[facility]myn SampsonOn license of [facility] ?Address: [address] [place] [address] [place], [place] ?Director: Vineet Ji M.D.,PhD Authorizing ProviderResult TypeResult StatusAnamika Gunter NPLAB BLOOD ORDERABLESFinal ResultPerforming OrganizationAddressCity/State/ZIP CodePhone Number [facility] * (ABNORMAL) CBC (05/09/2025 8:28 AM EDT)ComponentValueRef RangeTest Method Analysis TimePerformed AtPathologist SignatureWHITE BLOOD CELL COUNT11.9(H)3.8 - 10.8 Thousand/uLQUESTRED BLOOD CELL COUNT4.813.80 - 5.10 Million/uLQUEST MHDZBLIMBC47.611.7 - 15.5 g/mRTYCUAQWTHEERHYW25.935.0 - 45.0 %QBDXSUBU25.380.0 - 100.0 yXOJGJLINJ43.427.0 - 33.0 tdJRNTESZTL89.332.0 - 36.0 g/dLQUESTComment: For adults, a slight decrease in the calculated MCHC value (in the range of 30 to 32 g/dL) is most likely not clinically significant; however, it should be interpreted with caution in correlation with other red cell parameters and the patient's clinical condition. RDW13.611.0 - 15.0 %QUESTPLATELET BXJVD899(H)140 - 400 Thousand/uLQUESTMPV9.57.5 - 12.5 fLQUESTSpecimen (Source)Anatomical Location / LateralityCollection Method / VolumeCollection TimeReceived TimeBloodVenous blood specimen / Unknown 05/09/2025 8:28 AM EDT05/09/2025 3:28 PM EDT Narrative [facility] - 05/13/2025 2:23 AM EDT FASTING:NO FASTING: NO Resulting Agency Comment Performing Organization Information ?Site ID: [id number] ?Name: [facility] [facility] ?Address: [address] [place] [phone] ?Director: Monique Cano Authorizing ProviderResult TypeResult StatusAnamika Gunter NPDIALLO BLOOD ORDERABLESFinal ResultPerforming OrganizationAddressCity/State/ZIP CodePhone Number [facility] * TSH (05/09/2025 8:28 AM EDT)ComponentValueRef RangeTest MethodAnalysis Time Performed AtPathologist SignatureTSH0.64mIU/LQUESTComment: ?Reference Range ? > or = 20 Years 0.40-4.50 ? Ranges ?First trimester ?0.26-2.66 ?Second trimester ?? 0.55-2.73 ?Third trimester ?0.43-2.91 Specimen (Source)Anatomical Location / LateralityCollection Method / Volume Collection TimeReceived TimeBloodVenous blood specimen / Tdmrtxv5105/09/2025 8:28 AM EDT05/09/2025 3:28 PM EDT Narrative [facility] - 05/13/2025 2:23 AM EDT FASTING:NO FASTING: NO Resulting Agency Comment Performing Organization Information ?Site ID: QPT ?Name: [employer] [facility] ?Address: [address] [place] [address], [address] [place] [phone] ?Director: Herb Andujar MD Authorizing ProviderResult TypeResult StatusAnamika Gunter NPLAB BLOOD ORDERABLESFinal ResultPerforming OrganizationAddressCity/State/ZIP CodePhone Number [facility] * (ABNORMAL) Cortisol (05/09/2025 8:28 AM EDT)ComponentValueRef RangeTest Method Analysis TimePerformed AtPathologist SignatureCORTISOL, TOTAL1.9(L)mcg/dLQUEST Comment: The Cortisol result may be decreased on average 10-20% relative to results previously obtained with this method due to a recent quality improvement made in March 2025 by the reagent commercial interior designer. Reference Range: For 8 a.m.(7-9 a.m.) Specimen: 4.0-22.0 Reference Range: For 4 p.m.(3-5 p.m.) Specimen: 3.0-17.0 ??* Please interpret above results accordingly * Specimen (Source)Anatomical Location / LateralityCollection Method / Volume Collection TimeReceived TimeBloodVenous blood specimen / Bxynsux4405/09/2025 8:28 AM EDT05/09/2025 3:28 PM EDT Narrative [facility] - 05/13/2025 2:23 AM EDT FASTING:NO FASTING: NO Resulting Agency Comment Performing Organization Information ?Site ID: QPT ?Name: [employer] [facility] ?Address: [address] [place] [address], [address] [place] [phone] ?Director: Herb Andujar MD Authorizing ProviderResult TypeResult Dakotah Gunter NPLAB BLOOD ORDERABLESFinal ResultPerforming OrganizationAddressCity/State/ZIP CodePhone Number [facility] * (ABNORMAL) Lipid panel (05/09/2025 8:28 AM EDT)ComponentValueRef RangeTest MethodAnalysis TimePerformed AtPathologist SignatureCHOLESTEROL, DGOQN543(H) <200 mg/dLQUESTHDL FJWSCCJRPDT72> OR = 50 mg/eBANJVSQMJUORUKQDQSP180(H)<150 mg/dLQUESTLDL ZLKLBYENQQS806(H)mg/dL (calc)QUESTComment: Reference range: <100 Desirable range <100 mg/dL for primary prevention; <70 mg/dL for patients with CHD or diabetic patients with > or = 2 CHD risk factors. LDL-C is now calculated using the Luis A calculation, which is a validated novel method providing better accuracy than the Friedewald equation in the estimation of LDL-C. Wali SS et al. [place]. 2013;310(19): 9418-1675 (http://education.Mobile Realty Apps.Manyeta/faq/YEH869) CHOL/HDLC RATIO3.7<5.0 (calc)QUESTNON HDL WCURURJCYMB433(H)<130 mg/dL (calc) QUESTComment: For patients with diabetes plus 1 major ASCVD risk factor, treating to a non-HDL-C goal of <100 mg/dL (LDL-C of <70 mg/dL) is considered a therapeutic option. Specimen (Source)Anatomical Location / LateralityCollection Method / Volume Collection TimeReceived TimeBloodVenous blood specimen / Opsmplg2905/09/2025 8:28 AM EDT05/09/2025 3:28 PM EDT Narrative [facility] - 05/13/2025 2:23 AM EDT FASTING:NO FASTING: NO Resulting Agency Comment Performing Organization Information ?Site ID: QPT ?Name: [employer] [facility] ?Address: [address] [place] [address], [address] [place] [phone] ?Director: Herb Andujar MD Authorizing ProviderResult TypeResult Dakotah HARRISON BLOOD ORDERABLESFinal ResultPerforming OrganizationAddressCity/State/ZIP CodePhone Number [place] * Comprehensive metabolic panel (05/09/2025 8:28 AM EDT)ComponentValueRef Range Test MethodAnalysis TimePerformed AtPathologist MzfinrdriCwzqtla38287 - 139 mg/dLQUESTComment: ? Non-fasting reference interval For someone without known diabetes, a glucose value between 100 and 125 mg/dL is consistent with prediabetes and should be confirmed with a follow-up test. JZQ336 - 25 mg/dLQUESTCreatinine0.760.50 - 1.03 mg/cZZCIBTFSXH82> OR = 60 mL/min/1.98a9JZOVCCLX/CREATININE RATIOSEE NOTE: (calc)QUESTComment: ?? Not Reported: BUN and Creatinine are within ?? reference range. ? Vpwfpc096709 - 146 mmol/LQUESTPotassium, Bld4.43.5 - 5.3 mmol/RWZURXHwcoccmz124 98 - 110 mmol/LQUESTCarbon Ngodxfa1470 - 32 mmol/MKUKCZAtgugry81.08.6 - 10.4 mg/dLQUESTPROTEIN, TOTAL6.86.1 - 8.1 g/dLQUESTALBUMIN4.23.6 - 5.1 g/dLQUEST GLOBULIN2.61.9 - 3.7 g/dL (calc)QUESTALBUMIN/GLOBULIN RATIO1.61.0 - 2.5 (calc) QUESTBILIRUBIN, TOTAL0.40.2 - 1.2 mg/dLQUESTALKALINE ERLAAGDLJKJ69993 - 153 U/L MDJFZJSW8576 - 35 U/GDWVCKNGV881 - 29 U/LQUESTSpecimen (Source)Anatomical Location / LateralityCollection Method / VolumeCollection TimeReceived TimeBlood Venous blood specimen / Hektoxn1605/09/2025 8:28 AM EDT05/09/2025 3:28 PM EDT Narrative [facility] - 05/13/2025 2:23 AM EDT FASTING:NO FASTING: NO Resulting Agency Comment Performing Organization Information ?Site ID: QTW ?Name: [employer] ?Address: [address] [place] [phone] ?Director: Monique Cano Authorizing ProviderResult TypeResult StatusSherri M [place] NPLAB BLOOD ORDERABLESFinal ResultPerforming OrganizationAddressCity/State/ZIP CodePhone Number [facility] * POCT glycosylated hemoglobin (Hb A1C) docked device (05/08/2025 10:44 AM EDT) ComponentValueRef RangeTest MethodAnalysis TimePerformed AtPathologist SignatureHemoglobin A1C5.2Specimen (Source)Anatomical Location / Laterality Collection Method / VolumeCollection TimeReceived TimeBloodVenous blood specimen / Bljxfdr0605/08/2025 10:44 AM EDT Narrative Authorizing ProviderResult TypeResult StatusAnamika Gunter NPPOINT OF CARE TEST ENTER/EDIT ORDERABLESFinal Result from Last 3 Months Insurance Care Teams Team MemberRelationshipSpecialtyStart Date Rancho Hernandez MD [address] [place] [phone] PCP - GeneralFamily Medicine03/16/25 Ellie Ingram NP [address] [place] [address] Referring Pctdqipip04/19/24
--- NOTE | 2025-07-12 10:25 | PM.CN ---
Consult Note: HPI Data of Consult Patient: known to practice within the last 3 years Consult date: 06/20/25 Requesting Physician: Lois Borjas NP Primary Care Provider: RENETTA CELESTIN Consult Narrative Reason for consult: chronic low back pain Narrative: Mariana Kelly a pleasant 54 year old female presents for evaluation of chronic neck and low back pain. pt is on disability, has been diagnosed this year with POTS, and has a hx of lumbar spondylosis and lumbar stenosis with NC. pt previously following with [facility] in 2023 with short term relief from injections, was interested in a spinal cord stimulator. cannot tolerate PT due to severe pain. JU 38%. pain today 6/10 aching in low back, increasing with standing, walking, lifting, bending, twisting. pain improved with sleep. pt pending NS consultation, has not been able to schedule consult yet as the office has not returned her call. Pt underwent bilateral L4-5 TFESI on 07/02/25 and is noting significant relief, overall 70% improvement in pain and functional ability per pt. no longer utilizing a walker, now utilizing a cane. sparingly utilizing tramadol 50mg prn, on lyrica 75mg BD and tylenol PRN with benefit. denies side effects. cc:: CC: Lois Borjas NP Review of Systems ROS Musculoskeletal Reports: back pain, extremity pain and joint pain [facility] Medical History (Updated 07/12/25 @ 10:28 by Lois Borjas NP) Tachycardia ?R00.0 - Tachycardia, unspecified (ICD-10) Autonomic dysfunction ?G90.9 - Disorder of the autonomic nervous system, unspecified (ICD-10) Stage 3b chronic kidney disease (CKD) ?N18.32 - Chronic kidney disease, stage 3b (ICD-10) Extrinsic asthma without complication ?J45.909 - Unspecified asthma, uncomplicated (ICD-10) LACEY (generalized anxiety disorder) ?F41.1 - Generalized anxiety disorder (ICD-10) Hypertension ?I10 - Essential (primary) hypertension (ICD-10) Prediabetes ?R73.03 - Prediabetes (ICD-10) Lumbar spondylosis ?M47.816 - Spondylosis without myelopathy or radiculopathy, lumbar region (ICD-10) Back pain ?M54.9 - Dorsalgia, unspecified (ICD-10) Anxiety ?F41.9 - Anxiety disorder, unspecified (ICD-10) Family History Mother Family history of COPD (chronic obstructive pulmonary disease) Family history of cancer Family history of hypertension Grandfather Family history of cancer Family history of diabetes mellitus Family history of myocardial infarction Family history of stroke Grandmother Family history of diabetes mellitus Sister Family history of hypertension Father Family history of hypertension Social History Within the past year, how often did you have a drink containing alcohol: monthly or less Within the past year, how often did you have six or more drinks on one occasion: less than monthly Smoking status: Never smoker Non-prescribed substance use: cannabis (any form) Non-prescribed substance use details: vape cbd 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 Highest level of school completed/degree received: some college, no degree Are you now , , , , never or living with a partner: In a typical week, how many times do you talk on the telephone with family, friends, or neighbors: 3 or more times per week How often do you get together with friends or relatives: 3 or more times per week How often do you attend jew or rastafari services: never Do you belong to any clubs or organizations such as jew groups unions, fraternal or athletic groups, or school groups: no Total score: 1 Score interpretation: A score of less than or equal to 1 indicates the most socially isolated. Little interest or pleasure in doing things: more than half the days Feeling down, depressed, or hopeless: not at all Feel stressed/tense/nervous/anxious/difficulty sleeping: not at all Do you think of yourself as: straight/heterosexual Gender Identity: female Meds Home Medications and Allergies Home Medications ?Medication ?Instructions ?Recorded ?Confirmed ?Type tizanidine 4 mg tablet 4 mg PO TID PRN muscle spasticity 10/08/23 07/02/25 History fludrocortisone 0.1 mg tablet 0.1 mg PO QD #30 tabs 10/15/23 07/02/25 Rx metoprolol tartrate 25 mg tablet 25 mg PO BID #60 tabs 10/15/23 07/02/25 Rx cyanocobalamin (vitamin B-12) 1,000 mcg PO DAILY 04/26/25 07/02/25 History 1,000 mcg capsule empagliflozin 25 mg tablet 25 mg PO DAILY 04/26/25 07/02/25 History (Jardiance) midodrine 2.5 mg tablet 2.5 mg PO BID 04/26/25 07/02/25 History semaglutide 0.25 mg or 0.5 mg (2 0.25 mg subcut QWEEK 04/26/25 07/02/25 History mg/3 mL) subcutaneous pen injector (Ozempic) terbinafine HCl 250 mg tablet 250 mg PO DAILY 04/26/25 07/02/25 History pregabalin 50 mg capsule (Lyrica) 75 mg PO BID 05/23/25 07/02/25 History topiramate 50 mg tablet (Topamax) 50 mg PO BID 05/23/25 07/02/25 History pregabalin 75 mg capsule (Lyrica) 75 mg PO BID #60 caps 06/20/25 07/02/25 Rx Allergies Allergy/AdvReac Type Severity Reaction Status Date / Time No Known Drug Allergies Allergy Verified 07/02/25 09:56 Exam Constitutional Documenting provider has reviewed patient's vital signs: yes Common normals: no apparent distress, oriented x3 and alert General appearance: cooperative Nutritional appearance: overweight HENMT Common normals: normocephalic, hearing grossly normal bilaterally and moist oral mucous membranes Head and scalp: normocephalic Eye Common normals: PERRL Pupil: PERRL Neck & C-Spine Common normals: full ROM General: normal visual inspection Chest Common normals: inspection of chest normal Respiratory Common normals: normal respiratory effort, no retractions and no use of accessory muscles Back & Pelvis Thoracic spine/upper back: ROM limited and pain with ROM; no thoracic spinal tenderness Lumbar spine/lower back: ROM limited, pain with ROM, lumbar spinal tenderness and straight leg raise negative bilaterally Other: strength 5/5 in BLE sensation intact BLE hyperalgesia has improved notable facet mediated pain in lumbar spine and positive facet loading on exam Neuro Common normals: oriented x3 Sensorium/orientation: alert Gait (neuro): assistive device used cane Psych Common normals: mental status grossly normal, thought process normal, cooperative, affect normal, speech normal and activity/motor behavior normal Speech: normal speech Thought process: normal thought process Results Imaging lumbar MRI: Attestation: I have reviewed the pertinent imaging results. Radiologist's impression: T12-L1: Broad-based disc bulge with facet arthropathy. Mild neural from narrowing. Canal is minimally narrowed. L1-L2: Mild facet arthropathy right greater than left. Trace left facet joint effusion. No focal disc protrusion. Canal and foramina otherwise patent. L2-3: Broad-based disc bulge with facet arthropathy. [id number] bilateral neural from narrowing. Minor canal stenosis. L3-4: Disc desiccation with broad-based left extraforaminal zone bulge.. Evidence of facet arthropathy. Right foramen and canal patent. Mild left foraminal narrowing. L4-5: Circumferential disc bulge with advanced facet arthropathy and ligamentum flavum hypertrophy. Trace facet joint effusions. There is moderate to severe central canal stenosis and moderate severe to severe subarticular recess encroachment upon the traversing L5 nerve roots. Moderate bilateral neural foraminal narrowing. L5-S1: Circumferential disc bulge with endplate osteophytosis and facet arthropathy. Moderate severe left greater than right neural from narrowing identified. Additional Findings Additional findings: If on a controlled substance or opioids, I have checked an [place] report on this patient and there are no aberrancies noted in the prescribing history.??If on a controlled substance or opioid a drug screen was completed and reviewed within the last year, and if there has not been a drug screen completed we ordered one today to monitor higher risk, state monitored pain medication use. As part of providing excellent, safe, comprehensive care, the following was completed at our patient's visit: 1. A medication reconciliation and review to ensure accurate knowledge of current/active medications, including asking our patients to inform us about any [id number] medications or herbal remedies/nutritional supplements/alternative remedies. 2. A review to specifically ensure our patients have had annual screening for screening for depression, screening for tobacco use, and screening for unhealthy alcohol use. For concerning screenings had a discussion with the patient, provided patient education, and recommended follow-up with primary care provider when appropriate. If patient noted with a risk of falling, they received education on strength, gait, and balance training to prevent future risk of falling. Portions of this note may have been carried over from the previous visit and updated as appropriate. Please note this office utilizes paper charting in addition to the electronic medical record. A list of current medications, vitals, and PMH is available there as the clinical staff outside of myself do not have access to [email or web address] charting during the clinic day operations. As part of providing quality comprehensive care the current medications, vitals, and PMH were reviewed in the paper chart. Assessment and Plan Assessment and Plan (1) Lumbar spondylosis: (2) Lumbar stenosis with neurogenic claudication: Assessment and Plan: The patient has had over 3 months of moderate to severe back pain with functional impairment and inadequate response to conservative care including NSAIDS (unless there are contraindication such as concurrent blood thinners), multiple oral or topical pain medications, and home exercise program/physical therapy.? Patient has completed >6 weeks of guided home exercise program and/or formal physical therapy program without relief of their symptoms.? 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 pt reports it is helpful for decreasing severe pain to moderate for a few hours so she can go on walks, workout, be functional at home. denies side effects continue pregabalin 75mg BID continue otc tylenol use f/u 3 months, sooner if needed
== END 2025-07-12 09:48 | disposition home or self-care (01) ==
LOC: PM 09:48
PROVIDERS: PCP Nurse Practitioner Family; Visit Provider Nurse Practitioner
DX: M47.816 Spondylosis without myelopathy or radiculopathy, lumbar region (principal); M48.062 Spinal stenosis, lumbar region with neurogenic claudication; M53.2X6 Spinal instabilities, lumbar region; M51.360 Other intervertebral disc degeneration, lumbar region with discogenic back pain only; M79.7 Fibromyalgia; Z51.81 Encounter for therapeutic drug level monitoring; Z79.891 Long term (current) use of opiate analgesic
CPT/HCPCS: G0463